=== PATIENT | female | born 1945 | race Caucasian/White ===

== ENCOUNTER → 2017-05-30 | Outpatient (CLI) | payer OTHER ==
[~2017-05-30] MED LIST: CMD5 PO; CZR25 PO; DICL1GEL12 TD; DICL50TA3 PO; FURO-85 PO; IPRASOL4 INH; LSN20 PO; METO1TAB31 PO; OXGN; POTA10TA PO; PRD10 PO; PRED10TA PO; PRED20TA PO; PRLSR20 PO; ROFL1TAB5 PO; SPRIN/30 INH; SYMIN160 INH; ULT50 PO; VLT50 PO; VNTHFA/IN INH
--- NOTE | 2017-05-30 16:52 | DIAGNOSTIC IMAGING REPORT ---
CHEST 2 VIEWS ROUTINE CLINICAL HISTORY: R06.02 Shortness of [id number] dyspnea COMPARISON STUDY: 02/03/2016 FINDINGS: Mild increase in cardiac size. Slight fullness pulmonary vasculature. Diaphragms smooth. No focal infiltrative process. IMPRESSION: Mild cardiomegaly. Developing pulmonary vascular congestion. The above report was generated using voice recognition software. It may contain grammatical, syntax or spelling errors. Electronically signed by: Byron Reyes M.D. 05/30/2017 4:51 PM Dictated Date/Time: 05/30/2017 4:50 PM
== END | disposition home or self-care (01) ==
LOC: C.RAD1850 16:37
PROVIDERS: ATTEND Physician Assistant
DX: R06.02 Shortness of breath (principal)

== ENCOUNTER 2017-06-07 00:16 | Inpatient (IN) | payer OTHER ==
[2017-06-07] VITALS (14 sets, daily range): BP systolic 119–149; BP diastolic 69–97; PULSE 100–128; TEMP 36.2–37; O2SAT 90–99; Ht 157.5 cm; Wt 78.5 kg
[~2017-06-07] VITALS: Ht 157.5 cm; Wt 78.5 kg
[~2017-06-07 00:16] MED LIST changes: -CMD5 PO; -CZR25 PO; -DICL1GEL12 TD; -DICL50TA3 PO; -FURO-85 PO; -METO1TAB31 PO; -OXGN; -POTA10TA PO; -PRD10 PO; -PRED10TA PO; -PRED20TA PO; -PRLSR20 PO; -ROFL1TAB5 PO
[2017-06-07] MEDS ORDERED: METOPROLOL TARTRATE 1 MG/ML VIAL IV STA (00:34)
[2017-06-07] MEDS ORDERED: METHYLPREDNISOLONE 125 MG VIAL IV STA (00:34)
--- NOTE | 2017-06-07 00:35 | EMERGENCY ROOM VISIT NOTE ---
History Report prepared by Aicha: Edith Gallegos Under the Supervision of: Dr. Nagi Quiñones M.D. First contact with patient: 00:29 Chief Complaint: SHORTNESS OF BREATH Stated Complaint: SHORT OF BREATH "CAN'T BREATHE",CAN'T WALK WELL History of Present Illness The patient is a 71 year old female who presents to the Emergency Room with complaints of constant shortness of breath. Patient notes chronic COPD as well as some CHF issues with increased swelling in legs recently. She was seen by PCP a few days ago and sent to see cards given her shortness of breath. Rapidly worsening SOB over last few hours. Unable to ambulate due to SOB and needed family to come get her to hospital. Difficulty speaking, unable to walk due to SHOB, and notes this is similar to previous COPD flares. Denies chest pain, syncope, palpitations, fevers, chills, vomiting, abdominal pain nor other symptoms. No medications prior to arrival. Exertion makes worse, rest better. Source of History: patient Timing: constant Modifying Factors (Worsening): other (talking) Review of Systems See HPI for pertinent positives & negatives. A total of 10 systems reviewed and were otherwise negative. Past Medical & Surgical Medical Problems: (1) BCC (basal cell carcinoma of skin) (2) COPD (chronic obstructive pulmonary disease) (3) Dyslipidemia (4) Fibromyalgia (5) GERD (gastroesophageal reflux disease) (6) Hypertension (7) Hypoxia (8) Osteoporosis (9) Respiratory failure, [id number] Surgical Problems: (1) History of cyst removal left breast (2) Hx of cataract surgery (3) S/P Mohs surgery for basal cell carcinoma (4) Status post appendectomy (5) Status post hysterectomy (6) Status post repair of ventral hernia Family History Cancer Social History Smoking Status: Former Smoker Alcohol Use: none Drug Use: none Housing Status: lives alone Occupation Status: employed Current/Historical Medications Scheduled Budesonide/Formoterol Fumarate (Symbicort 160/4.5 Inhaler), 2 PUFFS INH BID Diclofenac Sodium (Topical) (Voltaren 1% Top Gel), 1 APPLN TD BID Furosemide (Lasix), 20 MG PO DAILY Omeprazole (Prilosec), 20 MG PO QAM Potassium Chloride (K-Tabs), 10 MEQ PO DAILY Prednisone (Prednisone), 40 MG PO DAILY Roflumilast (Daliresp), 500 MG PO DAILY Tiotropium [place] (Spiriva Handihaler), 1 PUFF INH DAILY Warfarin Sod (Coumadin), 5 MG PO DAILY Scheduled PRN Albuterol Hfa (Ventolin Hfa), 2 PUFFS INH Q4H PRN for SOB/Wheezing Ipratropium-Albuterol (Duoneb), 1 TREATMENT INH Q4H PRN for SOB/Wheezing Tramadol HCl (Tramadol HCl), 50 MG PO TID PRN for Pain Allergies Coded Allergies: Duloxetine (Verified Allergy, Intermediate, RASH, 07/26/16) CI Pigment Blue 63 (Verified Allergy, Unknown, RASH, 07/26/16) Naproxen (Verified Adverse Reaction, Mild, GI SYMPTOMS, 07/26/16) Physical Exam Vital Signs Date Time Temp Pulse Resp B/P (MAP) Pulse Ox O2 Delivery O2 Flow Rate FiO2 06/07/17 02:06 112 22 129/86 92 Nasal Cannula 3.0 06/07/17 01:36 Nasal Cannula 2.0 06/07/17 01:23 111 22 122/99 98 Nebulizer 06/07/17 01:11 128 06/07/17 00:56 96 Nasal Cannula 3.0 06/07/17 00:55 136 150/128 06/07/17 00:46 128 20 99 Nasal Cannula 4.0 06/07/17 00:22 37.0 133 24 138/82 68 Room Air Physical Exam GENERAL: Patient is acutely ill appearing HEENT: No acute trauma, normocephalic atraumatic, mucous membranes moist, no nasal congestion, no scleral icterus. NECK: No stridor, no adenopathy, no meningismus, trachea is midline. LUNGS: Minimal air movement, tight wheezing at apex. HEART: Tachycardic. No murmurs, rubs, gallops appreciated. ABDOMEN: Soft, nontender, bowel sounds positive, no masses appreciated, no peritonitis. BACK: No midline tenderness, no CVA tenderness EXTREMITIES: Normal motion all extremities, no cyanosis, mild edema bilateral legs. NEUROLOGIC: Alert and oriented, no acute motor or sensory deficits, no focal weakness, cranial nerves grossly intact. SKIN: No rash, no jaundice, no diaphoresis. Medical Decision & Procedures ER Provider Diagnostic Interpretation: Radiology results and stated below per my review and radiologist interpretation: CHEST ONE VIEW X ray results are stated below per my interpretation: Chest: 1 view: No infiltrate, no effusion, normal cardiac border. Laboratory Results Test 06/07/17 00:40 06/07/17 00:47 RDW Standard Deviation 46.3 fL (36.4-46.3) RDW Coefficient of Variation 13.7 % (11.5-14.5) White Blood Count 10.61 K/uL (4.8-10.8) Red Blood Count 5.27 M/uL (4.2-5.4) Hemoglobin 14.6 g/dL (12.0-16.0) Hematocrit 48.9 % (37-47) Mean Corpuscular Volume 92.8 fL (80-100) Mean Corpuscular Hemoglobin 27.7 pg (25-34) Mean Corpuscular Hemoglobin Concent 29.9 g/dl (32-36) Platelet Count 246 K/uL (130-400) Mean Platelet Volume 11.2 fL (7.4-10.4) Neutrophils (%) (Auto) 76.2 % Lymphocytes (%) (Auto) 14.0 % Monocytes (%) (Auto) 8.3 % Eosinophils (%) (Auto) 1.1 % Basophils (%) (Auto) 0.2 % Neutrophils # (Auto) 8.08 K/uL (1.4-6.5) Lymphocytes # (Auto) 1.49 K/uL (1.2-3.4) Monocytes # (Auto) 0.88 K/uL (0.11-0.59) Eosinophils # (Auto) 0.12 K/uL (0-0.5) Basophils # (Auto) 0.02 K/uL (0-0.2) Immature Granulocyte % (Auto) 0.2 % Immature Granulocyte # (Auto) 0.02 K/uL (0.00-0.02) Prothrombin Time 18.9 SECONDS (9.0-12.0) Prothromb Time International Ratio 1.7 (0.9-1.1) Activated Partial Thromboplast Time 28.3 SECONDS (21.0-31.0) Partial Thromboplastin Ratio 1.1 Total Creatine Kinase 75 U/L (26-192) Creatine Kinase MB 2.5 ng/ml (0.5-3.6) Creatine Kinase MB Ratio 3.3 (0-3.0) Troponin I 0.032 ng/ml (0-0.045) Pro-B-Type Natriuretic Peptide 7658 pg/ml (0-900) Bedside Lactic Acid Venous 1.28 mmol/L (0.90-1.70) Laboratory results as reviewed by me. Medications Administered Medications (Trade) Dose Ordered Sig/Racheal Route Start Time Stop Time Status Last Admin Dose Admin Albuterol/ Ipratropium (Duoneb) 12 ml ONE ONCE INH 06/07/17 00:45 06/07/17 00:46 DC 06/07/17 00:44 12 ML Methylprednisolone Sodium Succinate (Solu-Medrol IV) 125 mg NOW STAT IV 06/07/17 00:34 06/07/17 00:36 DC 06/07/17 00:55 125 MG Metoprolol Tartrate (Lopressor Iv) 5 mg NOW STAT IV 06/07/17 00:34 06/07/17 00:36 DC 06/07/17 00:55 5 MG ED Course 0030: The patient was evaluated in room B10. A complete history and physical exam was performed. 0034: Lopressor Iv 5 mg IV, Solu-Medrol IV 125 mg IV. 0045: Duoneb 12 ml INH. 0058: The patient's breathing is much better, HR is 110. She notes she has recently had urinary burning. 0134: The patient's breathing has improved, she is still wheezing loudly. The patient is shaking too much and needs to stop the nebulizer. She agrees to be admitted 0211: Discussed the patient's case with Dr. Leavitt. The patient will be evaluated for further treatment and disposition. 0215: Upon reevaluation, the patient is resting. Discussed results and treatment plan with the patient. She verbalized understanding and agreement with the treatment plan. The patient will be evaluated for further management. Medical Decision Differential: Infectious, Reactive Airway Disease, Pneumonia, Pneumothorax, COPD , CHF, ACS, Pulmonary Embolism, MSK, GI, Dissection, amongst other etiologies entertained. 71 yr old female arrives with shortness of breath and is very hypoxic on arrival. I was at bedside on arrival to room given severity of her situation. Moving minimal air and is quite tight. Immediately started on hour long neb. With tachycardia given Lopressor. CXR without clear infiltrate and wbc OK without fever. Suspect this is primary COPD exacerbation. There may be underlying CHF but I do not feel that this is primary issue. After hour neb having improved breathing and oxygenation only requiring 3 L NC. Labs reveal mild acidosis with significant hypercapnia consistent with her exacerbation. Given her vast improvement after neb here I do not feel that she requires bipap at this time. She was given IV solu-medrol. I will defer abx decision to hospitalist, though I did obtain blood cultures, along with poc lactic acid ( which was OK). She was watched closely prior to transfer to floor. Medication Reconcilliation Current Medication List: was personally reviewed by me Blood Pressure Screening Patient's blood pressure: Normal blood pressure Consults Time Called: [phone] Consulting Physician: Dr. Leavitt Returned Call: [phone] Discussed the patient's case. The patient will be evaluated for further treatment and disposition. Impression Primary Impression: COPD with acute exacerbation Additional Impressions: Hypercapnic respiratory failure Hypoxia Critical Care I have personally spent greater than 35 minutes of critical care time in the direct management of this patient. This was a life/limb threatening event. This includes time spent evaluating patient, direct bedside care, chart review, placing orders, interpretation of diagnostic studies, discussion with consultants, patient, and family members, as well as other required patient management activities. This 35 minutes is in excess of all separately billable procedures. Scribe Attestation The scribe's documentation has been prepared under my direction and personally reviewed by me in its entirety. I confirm that the note above accurately reflects all work, treatment, procedures, and medical decision making performed by me. Departure Information Dispostion Being Evaluated By Hospitalist Referrals Russ Moon M.D. (PCP) Patient Instructions My [facility] Problem Qualifiers
[2017-06-07] MEDS ORDERED: ALBUT/IPRATROP 3MG/0.5MG NEB 3 ML VIAL INH ONE (00:45)
[2017-06-07 00:57] LABS: BASO % 0.2 %; BASO ABS # 0.02 K/uL (0-0.2); COMPLETE YES; EOS % 1.1 %; HEMATOCRIT 48.9 % (37-47); IG% 0.2 %; LYMPH ABS # 1.49 K/uL (1.2-3.4); MEAN CELL VOLUME 92.8 fL (80-100); MEAN CORPUSCULAR HEMOGLOBIN 27.7 pg (25-34); MEAN CORPUSCULAR HGB CONC 29.9 g/dl (32-36); MEAN PLATELET VOLUME 11.2 fL (7.4-10.4); MONO % 8.3 %; NEUT % 76.2 %; PLATELET COUNT 246 K/uL (130-400); RED BLOOD COUNT 5.27 M/uL (4.2-5.4); WHITE BLOOD COUNT 10.61 K/uL (4.8-10.8)
[2017-06-07 01:09] LABS: INR 1.7 (0.9-1.1); PARTIAL THROMBOPLASTIN RATIO 1.1; PROTHROMBIN TIME (PATIENT) 18.9 SECONDS (9.0-12.0)
[2017-06-07 01:24] LABS: BLOOD UREA NITROGEN 16 mg/dl (7-18); BUN/CREATININE RATIO 21.3 (10-20); CALCIUM 8.7 mg/dl (8.5-10.1); CARBON DIOXIDE 40 mmol/L (21-32); CHLORIDE 95 mmol/L (98-107); CKMB/CK RATIO 3.3 (0-3.0); CREATININE 0.75 mg/dl (0.60-1.20); GLUCOSE 164 mg/dl (70-99); MAGNESIUM 1.7 mg/dl (1.8-2.4); POTASSIUM 4.3 mmol/L (3.5-5.1); SODIUM 137 mmol/L (136-145)
[2017-06-07] MEDS ORDERED: FURO-85 PO (01:25)
[2017-06-07] MEDS ORDERED: POTA10TA PO (01:26)
[2017-06-07] MEDS ORDERED: CMD5 PO (01:27)
[2017-06-07] MEDS ORDERED: PRLSR20 PO (01:28)
[2017-06-07] MEDS ORDERED: PRED20TA PO (01:32)
[2017-06-07 01:34] LABS: ARTERIAL BLD GAS O2 SATURATION 99.5 % (90-95); ARTERIAL BLOOD GAS HCO3 38 mmol/L (19-24); ARTERIAL BLOOD GAS PO2 213 mm/Hg (80-95); ARTERIAL BLOOD GAS pH 7.31 (7.35-7.45)
[2017-06-07] MEDS ORDERED: DICL1GEL12 TD (01:34)
[2017-06-07] MEDS ORDERED: ROFL1TAB5 PO (01:38)
[2017-06-07 01:39] LABS: ALLEN TEST POS (POS); O2 ADMINISTRATION ROOM AIR
[2017-06-07] MEDS ORDERED: NITROGLYCERIN 0.4 MG SL PER TAB CHARGE SL PRN (02:15)
[2017-06-07] MEDS ORDERED: ACETAMINOPHEN 325 MG TAB PO PRN (02:15)
[2017-06-07] MEDS ORDERED: POLYETHYLENE (MIRALAX) 17 GM PACK PO PRN (02:15)
[2017-06-07] MEDS ORDERED: ALUMINUM/MAGNESIUM/SIMETH (MAALOX MAX) 30 ML UDC PO PRN (02:15)
[2017-06-07] MEDS ORDERED: MAGNESIUM HYDROXIDE SUSP 30 ML UDC PO PRN (02:15)
[2017-06-07] MEDS ORDERED: ONDANSETRON INJ 2 MG/ML 2 ML VIAL IV PRN (02:15)
--- NOTE | 2017-06-07 02:28 | History and Physical ---
History & Physical Date & Time of Service: Jun 07, 2017 at 02:28 Chief Complaint: Short Of Breath "Can't Breathe",Can't Walk Well Primary Care Physician: Russ Moon M.D. History of Present Illness Source: patient This is 71 yo F with hx of COPD ( moderate to severe ) ; Aflutter /fibromyalgia presented to ED with Hypoxia , found to be 86 % in room air , with poor air entry respiratory acidosis with low pH 7.3 given hour long neb tx , her respiratory status improved , spo02 92 % on 3 L 02 during my interview , pt was comfortable, not in any respiratory distress , speaking in sentences very poor Historian , baseline confusion ( dementia ? ) needed a lot of redirection to obtain information mentions that she got home 02 delivered day before yesterday -but did not think it was working ( as she could not " taste " it ) got confused today , could take breath , could not walk or talk , called her grand son to come over and get her to ER can not tell be for sure if she had any fever /chills , mention that she had cough ( but " always " had it ) say pulmonary Domenica Black 2 days back , everything was fine then Past Medical/Surgical History Medical Problems: (1) BCC (basal cell carcinoma of skin) Permanent Comment: s/p MOHS surgery Status: Chronic (2) COPD (chronic obstructive pulmonary disease) Permanent Comment: severity to be determined Status: Chronic (3) Dyslipidemia Status: Chronic (4) Fibromyalgia Status: Chronic (5) GERD (gastroesophageal reflux disease) Status: Chronic (6) Hypertension Status: Chronic (7) Osteoporosis Status: Chronic Surgical Problems: (1) History of cyst removal left breast Status: Chronic (2) Hx of cataract surgery Status: Chronic (3) S/P Mohs surgery for basal cell carcinoma Status: Chronic (4) Status post appendectomy Status: Chronic (5) Status post hysterectomy Status: Chronic (6) Status post repair of ventral hernia Status: Chronic Family History Cancer Social History Smoking Status: Former Smoker Drug Use: none Housing status: lives with family Occupational Status: employed Immunizations History of Influenza Vaccine: Yes Influenza Vaccine Date: Aug 24, 2015 History of Tetanus Vaccine?: Yes Tetanus Immunization Date: Jan 20, 2014 History of Pneumococcal: Yes Pneumococcal Date: Dec 13, 2014 Multi-Drug Resistant Organisms History of MDRO: Yes Type of MDRO: MRSA Allergies Coded Allergies: Duloxetine (Verified Allergy, Intermediate, RASH, 07/26/16) CI Pigment Blue 63 (Verified Allergy, Unknown, RASH, 07/26/16) Naproxen (Verified Adverse Reaction, Mild, GI SYMPTOMS, 07/26/16) Home Medications Scheduled Budesonide/Formoterol Fumarate (Symbicort 160/4.5 Inhaler), 2 PUFFS INH BID Diclofenac Sodium (Topical) (Voltaren 1% Top Gel), 1 APPLN TD BID Furosemide (Lasix), 20 MG PO DAILY Omeprazole (Prilosec), 20 MG PO QAM Potassium Chloride (K-Tabs), 10 MEQ PO DAILY Prednisone (Prednisone), 40 MG PO DAILY Roflumilast (Daliresp), 500 MG PO DAILY Tiotropium [place] (Spiriva Handihaler), 1 PUFF INH DAILY Warfarin Sod (Coumadin), 5 MG PO DAILY Scheduled PRN Albuterol Hfa (Ventolin Hfa), 2 PUFFS INH Q4H PRN for SOB/Wheezing Ipratropium-Albuterol (Duoneb), 1 TREATMENT INH Q4H PRN for SOB/Wheezing Tramadol HCl (Tramadol HCl), 50 MG PO TID PRN for Pain Review of Systems limited due to poor history /confusion Respiratory: + cough, + wheezing, + shortness of breath, + dyspnea on exertion Neurologic: + weakness, + numbness/tingling Physical Exam Vital Signs Date Time Temp Pulse Resp B/P (MAP) Pulse Ox O2 Delivery O2 Flow Rate FiO2 06/07/17 02:06 112 22 129/86 92 Nasal Cannula 3.0 06/07/17 01:36 Nasal Cannula 2.0 06/07/17 01:23 111 22 122/99 98 Nebulizer 06/07/17 01:11 128 06/07/17 00:56 96 Nasal Cannula 3.0 06/07/17 00:55 136 150/128 06/07/17 00:46 128 20 99 Nasal Cannula 4.0 06/07/17 00:22 37.0 133 24 138/82 68 Room Air General Appearance: no apparent distress Head: normocephalic, atraumatic Eyes: normal inspection Neck: no JVD Respiratory/Chest: chest non-tender, + pertinent finding (diminished breath sound , no audible wheeze ( pt got breathing treament prior ) ) Cardiovascular: + tachycardia Abdomen/GI: non tender, soft Extremities/Musculoskelatal: no calf tenderness, normal capillary refill, no pedal edema Neurologic/Psych: no motor/sensory deficits, alert, + pertinent finding ( confusion , oriented to place and person ) Diagnostics Laboratory Results Results Past 24 Hours Test 06/07/17 00:40 06/07/17 00:47 06/07/17 01:22 Range/Units White Blood Count 10.61 4.8-10.8 K/uL Red Blood Count 5.27 4.2-5.4 M/uL Hemoglobin 14.6 12.0-16.0 g/dL Hematocrit 48.9 37-47 % Mean Corpuscular Volume 92.8 80-100 fL Mean Corpuscular Hemoglobin 27.7 25-34 pg Mean Corpuscular Hemoglobin Concent 29.9 32-36 g/dl Platelet Count 246 130-400 K/uL Mean Platelet Volume 11.2 7.4-10.4 fL Neutrophils (%) (Auto) 76.2 % Lymphocytes (%) (Auto) 14.0 % Monocytes (%) (Auto) 8.3 % Eosinophils (%) (Auto) 1.1 % Basophils (%) (Auto) 0.2 % Neutrophils # (Auto) 8.08 1.4-6.5 K/uL Lymphocytes # (Auto) 1.49 1.2-3.4 K/uL Monocytes # (Auto) 0.88 0.11-0.59 K/uL Eosinophils # (Auto) 0.12 0-0.5 K/uL Basophils # (Auto) 0.02 0-0.2 K/uL RDW Standard Deviation 46.3 36.4-46.3 fL RDW Coefficient of Variation 13.7 11.5-14.5 % Immature Granulocyte % (Auto) 0.2 % Immature Granulocyte # (Auto) 0.02 0.00-0.02 K/uL Prothrombin Time 18.9 9.0-12.0 SECONDS Prothromb Time International Ratio 1.7 0.9-1.1 Activated Partial Thromboplast Time 28.3 21.0-31.0 SECONDS Partial Thromboplastin Ratio 1.1 Sodium Level 137 136-145 mmol/L Potassium Level 4.3 3.5-5.1 mmol/L Chloride Level 95 98-107 mmol/L Carbon Dioxide Level 40 21-32 mmol/L Anion Gap 2.0 3-11 mmol/L Blood Urea Nitrogen 16 7-18 mg/dl Creatinine 0.75 0.60-1.20 mg/dl Estimated GFR () 91.7 Estimated GFR (Non- 79.1 BUN/Creatinine Ratio 21.3 10-20 Random Glucose 164 70-99 mg/dl Calcium Level 8.7 8.5-10.1 mg/dl Magnesium Level 1.7 1.8-2.4 mg/dl Total Creatine Kinase 75 26-192 U/L Creatine Kinase MB 2.5 0.5-3.6 ng/ml Creatine Kinase MB Ratio 3.3 0-3.0 Troponin I 0.032 0-0.045 ng/ml Pro-B-Type Natriuretic Peptide 7658 0-900 pg/ml Bedside Lactic Acid Venous 1.28 0.90-1.70 mmol/L Arterial Blood pH 7.31 7.35-7.45 Arterial Blood Partial Pressure CO2 79 35-46 mmHg Arterial Blood Partial Pressure O2 213 80-95 mm/Hg Arterial Blood HCO3 38 19-24 mmol/L Arterial Blood Oxygen Saturation 99.5 90-95 % Arterial Blood Base Excess 9.0 -9-1.8 mEq/L Arterial Blood Gas Delivery ROOM AIR Clarence Test POS POS Microbiology Results 06/07/17 Blood Culture, Received Pending 06/07/17 Blood Culture, Received Pending No Infiltrate, No Atelectasis EKG sinus tachycardia @ 130 bpm Impression Assessment and Plan SOB /HYPOXIA /COPD EXACERBATION : ACUTE ON CHRONIC RESPIRATORY FAILURE : presented with marked hypoxia ; poor air entry , wheeze symptom improved with hour long neb tx ABG shows pulmonary acidosis -lab obtained prior to neb tx will repeat lab in Am as pt's respiratory status improved to approx baseline cont iV Solu Medrol , Neb tx with Xoponex ( due to tachycardia ) scheduled and PRN q 2hrs pt is continued with Symbicort /Daliresp ( roflumilast ) no infiltrate noted in CXray empiric Abx with Doxycycline ( blood cultures obtained in ED ) Abx can be de escalated after culture results obtained pulmonology consult requested -pt is known to [facility] pulmonology CONFUSION /ENCEPHALOPATHY not sure of her baseline possible worsening of confusion due to hypoxia /metabolic encephalopathy cont supportive care for COPD exacerbation cont to monitor lives alone , PT/OT eval social service consulted for discharge planning for safe discharge HX OF AFLUTTER ON COUMADIN : follows with Dr Castro EKG shows sinus tach tele monitoring cont on Coumadin ; INR 1.7 monitor daily PT/INR -no indication for bridge therapy FIBROMYALGIA : cont tramadol -her home meds CHRONIC LOWER EXT SWELLING : On Lasix /K supplement no lower ext edema noted LOW MG : Replaced follow labs FULL CODE DVT PROPHYLAXIS ON COUMADIN DISPOSITION : expected to be discharged home when medically stable Pt/OT eval prior to discharge home Medicine follow up with Dr Russ Felipe Level of Care Telemetry Resuscitation Status FULL RESUSCITATION VTE Prophylaxis VTE Risk Assessment Done? Y/N: Yes Risk Level: Moderate Given or contraindicated: Unfractionated heparin SQ Additional Copies To Russ Moon M.D.
[2017-06-07] MEDS ORDERED: ALBUTEROL HFA 8 GM INHALER INH PRN (02:30)
[2017-06-07] MEDS ORDERED: IPRATROPIUM BROMIDE NEB SOLN 0.02% 2.5 ML VIAL INH PRN (02:45)
[2017-06-07] MEDS ORDERED: LEVALBUTEROL 1.25MG/0.5ML NEB INH PRN (02:45)
[2017-06-07] MEDS ORDERED: MAGNESIUM SULFATE 1GM / D5W 1 GM in PREMIXED IN D5W 100 ML IV STA (02:53)
[2017-06-07] MEDS ORDERED: LEVALBUTEROL/IPRATROPIUM NEB INH SCH (03:00)
[2017-06-07] MEDS: LEVALBUTEROL 1.25MG/0.5ML NEB INH SCH ×4 (03:13→19:19)
[2017-06-07] MEDS: IPRATROPIUM BROMIDE NEB SOLN 0.02% 2.5 ML VIAL INH SCH ×4 (03:13→19:19)
[2017-06-07] MEDS ORDERED: PATIENT'S HEIGHT AND/OR WEIGHT NEEDED SCH (04:30)
[2017-06-07 05:54] LABS: HEMATOCRIT 48.7 % (37-47); MEAN CELL VOLUME 92.2 fL (80-100); MEAN CORPUSCULAR HEMOGLOBIN 27.3 pg (25-34); MEAN CORPUSCULAR HGB CONC 29.6 g/dl (32-36); MEAN PLATELET VOLUME 11.7 fL (7.4-10.4); PLATELET COUNT 210 K/uL (130-400); RED BLOOD COUNT 5.28 M/uL (4.2-5.4); WHITE BLOOD COUNT 9.32 K/uL (4.8-10.8)
[2017-06-07 05:55] LABS: ARTERIAL BLD GAS O2 SATURATION 95.8 % (90-95); ARTERIAL BLOOD GAS BASE EXCESS 9.2 mEq/L (-9-1.8); ARTERIAL BLOOD GAS HCO3 40 mmol/L (19-24); ARTERIAL BLOOD GAS PO2 90 mm/Hg (80-95); ARTERIAL BLOOD GAS pH 7.28 (7.35-7.45); O2 ADMINISTRATION 4 LITERS
[2017-06-07 05:56] LABS: ALLEN TEST POS (POS)
[2017-06-07] MEDS ORDERED: HEPARIN SOD 5000 UNIT/0.5 ML CARP SQ SCH (06:00)
[2017-06-07 06:09] LABS: URINE APPEARANCE CLOUDY (CLEAR); URINE BILIRUBIN NEG (NEG); URINE COLOR YELLOW; URINE EPITHELIAL CELL AUTO >30 /lpf (0-5); URINE NITRITE NEG (NEG); URINE PH 6.5 (4.5-7.5); URINE SPECIFIC GRAVITY 1.022 (1.000-1.030); UROBILINOGEN NEG (NEG); ZZUR CULT IF INDIC CLEAN CATCH NO
--- NOTE | 2017-06-07 06:10 | Progress Note ---
Progress Note Date of Service Jun 07, 2017. Progress Note AM BLOOD GAS REVIEWED : pH 7.28 /pCo2 86 /pO2 90 /Hco3 40 respiratory acidosis due to COPD /hypercarbia -possible causing ongoing confusion ordered for BiPAP repeat ABG at noon while on Bipap Pulmonology consulted for further management
[2017-06-07 06:14] LABS: MANUAL MICROSCOPIC REQUIRED? NO; REVIEW REQ? NO
--- NOTE | 2017-06-07 06:45 | DIAGNOSTIC IMAGING REPORT ---
CHEST ONE VIEW PORTABLE HISTORY: 71 years-old Female acute shortness of breath. COMPARISON: Chest radiograph 05/30/2017. TECHNIQUE: Portable upright AP view of the chest FINDINGS: Cardiac silhouette is again moderately enlarged. Pulmonary vascular congestion is noted without overt pulmonary edema. Mild background interstitial coarsening is again seen bilaterally. There is atherosclerosis of the aorta. No pneumothorax or large pleural effusion. Bones are grossly intact with degenerative changes of the shoulders and spine. IMPRESSION: Cardiomegaly with unchanged pulmonary vascular congestion and mild background interstitial coarsening which may reflect mild pulmonary edema or background chronic interstitial changes. The above report was generated using voice recognition software. It may contain grammatical, syntax or spelling errors. Electronically signed by: Capo Perez M.D. 06/07/2017 6:43 AM Dictated Date/Time: 06/07/2017 6:42 AM
[2017-06-07 06:52] LABS: BUN/CREATININE RATIO 20.9 (10-20); CALCIUM 8.6 mg/dl (8.5-10.1); CREATININE 0.72 mg/dl (0.60-1.20); MAGNESIUM 2.3 mg/dl (1.8-2.4); POTASSIUM 4.2 mmol/L (3.5-5.1)
[2017-06-07] MEDS: METHYLPREDNISOLONE IV 60 MG in SYRINGE 0 ML IV SCH ×2 (08:34→16:08)
[2017-06-07] MEDS: ROFLUMILAST 500 MCG TAB PO SCH (08:35)
[2017-06-07] MEDS: PANTOprazole SOD 40 MG TAB PO SCH (08:35)
[2017-06-07] MEDS: POTASSIUM CHLORIDE 10 MEQ TABCR PO SCH (08:35)
[2017-06-07] MEDS: DICLOFENAC SOD 1% GEL 100 GM TUBE EXT SCH ×2 (08:35→19:04)
[2017-06-07] MEDS: FUROSEMIDE 20 MG TAB PO SCH (08:35)
[2017-06-07] MEDS: TIOTROPIUM BROMIDE 5 PUFF/90 MCG INH INH SCH (08:36)
[2017-06-07] MEDS: BUDESONIDE/FORMOTEROL FUMARATE 160/4.5 60 PUFFS/INHALER INH SCH ×2 (08:37→20:32)
[2017-06-07] MEDS ORDERED: DOXYCYCLINE HYCLATE 100 MG CAP PO SCH (09:00)
[2017-06-07 12:18] LABS: ARTERIAL BLD GAS O2 SATURATION 94.1 % (90-95); ARTERIAL BLOOD GAS BASE EXCESS 9.7 mEq/L (-9-1.8); ARTERIAL BLOOD GAS HCO3 39 mmol/L (19-24); ARTERIAL BLOOD GAS PO2 75 mm/Hg (80-95); ARTERIAL BLOOD GAS pH 7.34 (7.35-7.45); O2 ADMINISTRATION 2 LITERS
[2017-06-07 12:19] LABS: ALLEN TEST POS (POS)
[2017-06-07] MEDS: WARFARIN SOD 5 MG TAB PO SCH (16:08)
[2017-06-07] MEDS: TRAMADOL HCL 50 MG TAB PO PRN (16:09)
--- NOTE | 2017-06-07 16:53 | Pulmonary Consultation ---
History General Date of Service: Jun 07, 2017. Stated Complaint: Copd, Hypoxia HPI The patient is a 71 year old female who presents to [facility] with complaints of Copd, Hypoxia. The patient's primary care provider is Russ Moon M.D.. 71-year-old female admitted for acute on chronic respiratory insufficiency. Patient has a past medical history significant for severe emphysema, GERD, fibromyalgia, irritable bowel syndrome and MRSA of the nares. She is a former 50 -pack-year history of smoking and quit 2003. She is a previous patient of Dr. Valdovinos and then transferred to Dr. Powell in recently to the newly created [facility] where division. She is prescribed 2 L of oxygen chronically but has not been using that over the last 2 months. During that time she noted progressive dyspnea on exertion with bilateral lower extremity swelling she also notes overall poor compliance with her medical care. Prior to the admission sheet been experiencing this progressive dyspnea over the last 6-8 weeks and had noted increasing difficulty with clearing her mucous secretions. During the interview she denied: Fever, chills, productive cough, pleurisy or classic cardiac chest pain. Current Workup and treatment: EKG: Sinus tachycardia rate 130, possible atrial enlargement seen in lead V1 left axis deviation EKG: Sinus tachycardia weight 110, left axis deviation with signs of left atrial enlargement CXR: Cardiomegaly, pulmonary vascular congestion WBC: 11K---9K Platelet: [id number] INR: 1.7-----why she subtherapeutic in should with for pulmonary embolism AA gradient not elevated 5.7 PT: 18.9 aPTT: 28.3 CO2: 41 BUN: 15 Cr: 0.72 BNP: 7658 ABG: (06/07/17--01:22) 7.31/79/213/38 RA Aa Gradient: -166 (06/07/1705:46) 7.28/86/90/40 4Lnc Aa Gradient: 32.1 (06/07/1712:08) 7.34/74/75/39 2Lnc Aa Gradient: 5.7 Medications: 1. Coumadin 5 milligrams 2. Symbicort 2 puffs b.i.d. 3. Daliresp 500 micrograms daily 5. Spiriva 1 puff daily 6. Protonix 40 milligrams daily 7. Doxycycline 100 milligrams b.i.d. 8. Methylprednisolone 60 milligrams q.8 hours 9. Xopenex/Atrovent nebulizer q.6 hours Previous workup Pulmonary function studies 02/03/2016 Spirometry: Severe obstructive ventilatory disease with an FEV1 of 38% Lung volumes: Signs of hyperinflation with an RV of 136% Diffusion: Severely reduced at 30% Interpretation: Consistent with severe emphysema 6 minute walk test performed 05/30/2017 Baseline VS and Bernabe scale: HR: 114,~O2 sat: 98% QydzyPzqgiui54Ywb DtgliQxzcfvg26Pmphj AjtbeZcqwgbc68Rqf JybyaPyhzneg56Hsioi SnqxrOsnyjsa71Wax YlitaUfhbrdz95Ebhon QtmkaDvocrnw03Pcd LkzhbDizjoni68Fjqpt OwbmoZzuvsuq89Lab JgwptKxiemib75Ssmss GnacbKijprzr31Gxt SkdqaQhrkbjo07Calar JlmhpZvsyclq89Lul FjwasYktmoty71Gdkbo 1 min VS and Bernabe Scale: HR: 120,~O2 sat: 97% CgnoxHiyjcfc14Ugp XotciRorkqsq98Fimtk 2 min VS and Bernabe Scale: HR: 123,~O2 sat: 95% UdodtMpbvkab13Rak UdaazAfwhetc00Legfg 3 min VS and Bernabe Scale: HR: 125,~O2 sat: 92% ZbvrfUjmblbc00Eqm FwzsiUpubydi26Jicqw 4 min VS and Bernabe Scale: HR: 124,~O2 sat: 93% HdrxuHfbixfy66Pnr LqdruLskgtcb51Hfzoh 5 min VS and Bernabe Scale: HR: 131,~O2 sat: 93% BiedxInwdxqa95Lgj UgkdoRjwxrkp11Rnaeh 6 min VS and Bernabe Scale: HR: 131,~O2 sat: 91% IghbnDtnafan48Sas QjpnpZymamab55Kncuu Pre-Intervention: the patient walked a total of 506 ft feet. IonbeMgatrfa76Svs KkppiZhookpd13Ewiva Interventions: PT was wearing 2 LPM supplemental 02 during 6 minute walk and she did not desaturate Cardiac Echo (01/13/16) LV: EF=60-65% RV: TAPSE>1.5cm LA: Mildly dilated Grade 1 diastolic dysfunction Microbiology Expectorated sputum 02/16/2015: Haemophilus influenza Barium Swallow (+) mild to moderate esophageal dysmotility, possible stricture s/p EGD 01/14/16: (+) Guerita Esophagitis, Gastritis. ff up biopsies no strictures rukajGavsfTfbxarq56Qyr BnfvxCqrjqde72Skdph DlphlYpwrclm20Qzw GhmjwTlaxtmj27Yctkb IhqmnYxkifwh71Gxs CihsiMmihzgh58Fzcez DyyruMxwbnnv53Eov NnjezHuitlne57Iwaoc VjvnqTnpvpkd14Iyg ZqtokVkwdahl58Qxhqz Historian: patient, EMS Review of Systems Constitutional: reports: weakness Eyes: reports: no symptoms ENT: reports: no symptoms Cardiovascular: reports: as stated in HPI Respiratory: reports: as stated in HPI Gastrointestinal: reports: no symptoms Genitourinary - Female: reports: no symptoms Musculoskeletal: reports: no symptoms Integumentary: reports: no symptoms Neurologic: reports: no symptoms Psychiatric: reports: no symptoms Endocrine: no symptoms Hematologic / Lymphatic: no symptoms Allergic / Immunologic: no symptoms Past Medical History Past Medical History: 1. Chronic obstructive pulmonary disease (severe with an FEV1 of 38%) 2. Dyslipidemia 3. Fibromyalgia 4. GERD without esophagitis 5. Hypertension 6. Atrial flutter 7. Intermittent dysphagia to solid foods 8. Esophageal candidiasis 9. MRSA of the naris Past Surgical History: 1. Appendectomy 2. Inguinal Hernia Repair 3. Hysterectomy 4. Ventral Hernia Repair 5. EGD with biopsies and balloon dilation 6. Left breast cyst excision 7. Carpal tunnel release 8. Cataract repair 9. Mohs Family History Cancer Parent: Cancer, COPD Social History [place] home by herself Former smoker: 50+ pack year history quit 2006 Hx Tobacco Use In Past Year?: No Smoking Status: Former Smoker Alcohol: no current use Housing status: lives with family Occupational Status: employed Immunizations History of Influenza Vaccine: Yes Influenza Vaccine Date: Aug 24, 2015 History of Tetanus Vaccine?: Yes Tetanus Immunization Date: Jan 20, 2014 History of Pneumococcal: Yes Pneumococcal Date: Dec 13, 2014 History of MDRO History of MDRO: Yes Type of MDRO: MRSA Allergies Coded Allergies: Duloxetine (Verified Allergy, Intermediate, RASH, 07/26/16) CI Pigment Blue 63 (Verified Allergy, Unknown, RASH, 07/26/16) Naproxen (Verified Adverse Reaction, Mild, GI SYMPTOMS, 07/26/16) Current Medications Reported Home Medications Medications Dose Route/Sig Max Daily Dose Days Date Category Daliresp (Roflumilast) 500 Mcg Tab 500 Mg PO DAILY 06/07/17 Reported Voltaren 1% Top Gel (Diclofenac Sodium (Topical)) 1 % Gel 1 Appln TD BID 06/07/17 Reported Prednisone 20 Mg Tab 40 Mg PO DAILY 06/07/17 Reported Prilosec (Omeprazole) 20 Mg Capcr 20 Mg PO QAM 06/07/17 Reported Coumadin (Warfarin Sod) 5 Mg Tab 5 Mg PO DAILY 06/07/17 Reported K-Tabs (Potassium Chloride) 10 Meq Tab 10 Meq PO DAILY 06/07/17 Reported Lasix (Furosemide) 20 Mg Tab 20 Mg PO DAILY 06/07/17 Reported Symbicort 160/4.5 Inhaler (Budesonide/Formoterol Fumarate) 120 Puffs/ Aero 2 Puffs INH BID 10/05/16 Reported Ventolin Hfa (Albuterol) 200 Puffs/72792 Mcg Aers 2 Puffs INH Q4H PRN 10/05/16 Reported Spiriva Handihaler (Tiotropium [place]) 30 Puff/540 Mcg Aerp 1 Puff INH DAILY 10/05/16 Reported Tramadol HCl 50 Mg Tab 50 Mg PO TID PRN 10/05/16 Reported Duoneb (Ipratropium-Albuterol) 3 Ml Nebu 1 Treatment INH Q4H PRN 01/09/16 Reported Physical Physical Exam Vital Signs: Date Time Temp Pulse Resp B/P (MAP) Pulse Ox O2 Delivery O2 Flow Rate FiO2 06/07/17 15:31 36.9 117 18 138/69 (92) 93 Nasal Cannula 2.0 06/07/17 14:20 112 20 95 Nasal Cannula 06/07/17 12:00 Nasal Cannula 3.0 06/07/17 11:52 37.0 111 20 119/97 (104) 93 Nasal Cannula 2.0 06/07/17 08:00 Nasal Cannula 4.0 06/07/17 07:36 100 22 90 BiPAP/CPAP 06/07/17 07:28 36.2 107 20 149/84 (105) 91 Nasal Cannula 5.0 06/07/17 06:39 104 22 94 BiPAP 30 06/07/17 06:30 100 94 30 06/07/17 04:00 Nasal Cannula 3.0 06/07/17 03:15 36.9 112 24 142/91 95 Nasal Cannula 3.0 06/07/17 03:14 103 20 95 Nasal Cannula 3.0 06/07/17 02:06 112 22 129/86 92 Nasal Cannula 3.0 06/07/17 01:36 Nasal Cannula 2.0 06/07/17 01:23 111 22 122/99 98 Nebulizer 06/07/17 01:11 128 06/07/17 00:56 96 Nasal Cannula 3.0 06/07/17 00:55 136 150/128 06/07/17 00:46 128 20 99 Nasal Cannula 4.0 06/07/17 00:22 37.0 133 24 138/82 68 Room Air General Appearance: mild distress Head: NORMOCEPHALIC, ATRAUMATIC Eyes: PERRLA, NO DISCHARGE, EOMI, SCLERAE NORMAL ENT: NORMAL EAR EXAM, NORMAL NASAL EXAM, NORMAL MOUTH EXAM, NORMAL THROAT EXAM Neck: NORMAL RANGE OF MOTION, NO TENDERNESS, TRACHEA MIDLINE Respiratory: other (expiratory wheezing appreciated and mildly decreased breath sounds bilaterally) Cardiovasular: REGULAR RATE/RHYTHM, NORMAL S1S2 Abdomen: NON TENDER, NORMAL BOWEL SOUNDS, NO REBOUND, NO MASSES Genitourinary - Female: EXTERNAL GENITALIA NORMAL Back: NORMAL INSPECTION, NO MIDLINE TENDERNESS, NO CVA TENDERNESS Upper Extremities: NO EDEMA, NO DEFORMITY, NORMAL ROM Lower Extremities: edema Edema: Bilateral LE (2+) Pulses: carotid (R) (2+), carotid (L) (2+), posterior tibial (R), posterior tibial (L) (2+) Neuro: ALERT, ORIENTED x 3, NORMAL MOTOR EXAM Reflexes: biceps (R) (2+), bicpes (L) (2+), achilles (R) (2+), achilles (L) (2+ ) Babinski Testing: right (downgoing), left (downgoing) Psychiatric: NORMAL AFFECT, NO SUICIDAL IDEATION Diagnostics Labs Results Past 24 Hours Test 06/07/17 00:40 06/07/17 00:47 06/07/17 01:22 06/07/17 05:00 Range/Units White Blood Count 10.61 4.8-10.8 K/uL Red Blood Count 5.27 4.2-5.4 M/uL Hemoglobin 14.6 12.0-16.0 g/dL Hematocrit 48.9 37-47 % Mean Corpuscular Volume 92.8 80-100 fL Mean Corpuscular Hemoglobin 27.7 25-34 pg Mean Corpuscular Hemoglobin Concent 29.9 32-36 g/dl Platelet Count 246 130-400 K/uL Mean Platelet Volume 11.2 7.4-10.4 fL Neutrophils (%) (Auto) 76.2 % Lymphocytes (%) (Auto) 14.0 % Monocytes (%) (Auto) 8.3 % Eosinophils (%) (Auto) 1.1 % Basophils (%) (Auto) 0.2 % Neutrophils # (Auto) 8.08 1.4-6.5 K/uL Lymphocytes # (Auto) 1.49 1.2-3.4 K/uL Monocytes # (Auto) 0.88 0.11-0.59 K/uL Eosinophils # (Auto) 0.12 0-0.5 K/uL Basophils # (Auto) 0.02 0-0.2 K/uL RDW Standard Deviation 46.3 36.4-46.3 fL RDW Coefficient of Variation 13.7 11.5-14.5 % Immature Granulocyte % (Auto) 0.2 % Immature Granulocyte # (Auto) 0.02 0.00-0.02 K/uL Prothrombin Time 18.9 9.0-12.0 SECONDS Prothromb Time International Ratio 1.7 0.9-1.1 Activated Partial Thromboplast Time 28.3 21.0-31.0 SECONDS Partial Thromboplastin Ratio 1.1 Sodium Level 137 136-145 mmol/L Potassium Level 4.3 3.5-5.1 mmol/L Chloride Level 95 98-107 mmol/L Carbon Dioxide Level 40 21-32 mmol/L Anion Gap 2.0 3-11 mmol/L Blood Urea Nitrogen 16 7-18 mg/dl Creatinine 0.75 0.60-1.20 mg/dl Estimated GFR () 91.7 Estimated GFR (Non- 79.1 BUN/Creatinine Ratio 21.3 10-20 Random Glucose 164 70-99 mg/dl Calcium Level 8.7 8.5-10.1 mg/dl Magnesium Level 1.7 1.8-2.4 mg/dl Total Creatine Kinase 75 26-192 U/L Creatine Kinase MB 2.5 0.5-3.6 ng/ml Creatine Kinase MB Ratio 3.3 0-3.0 Troponin I 0.032 0-0.045 ng/ml Pro-B-Type Natriuretic Peptide 7658 0-900 pg/ml Bedside Lactic Acid Venous 1.28 0.90-1.70 mmol/L Arterial Blood pH 7.31 7.35-7.45 Arterial Blood Partial Pressure CO2 79 35-46 mmHg Arterial Blood Partial Pressure O2 213 80-95 mm/Hg Arterial Blood HCO3 38 19-24 mmol/L Arterial Blood Oxygen Saturation 99.5 90-95 % Arterial Blood Base Excess 9.0 -9-1.8 mEq/L Arterial Blood Gas Delivery ROOM AIR Clarence Test POS POS Urine Color YELLOW Urine Appearance CLOUDY CLEAR Urine pH 6.5 4.5-7.5 Urine Specific [place] 1.022 1.000-1.030 Urine Protein 2+ NEG Urine Glucose (UA) NEG NEG Urine Ketones NEG NEG Urine Occult Blood NEG NEG Urine Nitrite NEG NEG Urine Bilirubin NEG NEG Urine Urobilinogen NEG NEG Urine Leukocyte Esterase NEG NEG Urine WBC (Auto) 1-5 0-5 /hpf Urine RBC (Auto) 0-4 0-4 /hpf Urine Hyaline Casts (Auto) 1-5 0-5 /lpf Urine Epithelial Cells (Auto) >30 0-5 /lpf Urine Bacteria (Auto) NEG NEG Test 06/07/17 05:46 06/07/17 12:08 Range/Units White Blood Count 9.32 4.8-10.8 K/uL Red Blood Count 5.28 4.2-5.4 M/uL Hemoglobin 14.4 12.0-16.0 g/dL Hematocrit 48.7 37-47 % Mean Corpuscular Volume 92.2 80-100 fL Mean Corpuscular Hemoglobin 27.3 25-34 pg Mean Corpuscular Hemoglobin Concent 29.6 32-36 g/dl RDW Standard Deviation 45.8 36.4-46.3 fL RDW Coefficient of Variation 13.5 11.5-14.5 % Platelet Count 210 130-400 K/uL Mean Platelet Volume 11.7 7.4-10.4 fL Arterial Blood pH 7.28 7.34 7.35-7.45 Arterial Blood Partial Pressure CO2 86 74 35-46 mmHg Arterial Blood Partial Pressure O2 90 75 80-95 mm/Hg Arterial Blood HCO3 40 39 19-24 mmol/L Arterial Blood Oxygen Saturation 95.8 94.1 90-95 % Arterial Blood Base Excess 9.2 9.7 -9-1.8 mEq/L Arterial Blood Gas Delivery 4 LITERS 2 LITERS Clarence Test POS POS POS Sodium Level 138 136-145 mmol/L Potassium Level 4.2 3.5-5.1 mmol/L Chloride Level 96 98-107 mmol/L Carbon Dioxide Level 41 21-32 mmol/L Anion Gap 1.0 3-11 mmol/L Blood Urea Nitrogen 15 7-18 mg/dl Creatinine 0.72 0.60-1.20 mg/dl Est Creatinine Clear Calc Drug Dose 68.4 ml/min Estimated GFR () 96.3 Estimated GFR (Non- 83.1 BUN/Creatinine Ratio 20.9 10-20 Random Glucose 166 70-99 mg/dl Calcium Level 8.6 8.5-10.1 mg/dl Magnesium Level 2.3 1.8-2.4 mg/dl Microbiology Results 06/07/17 Blood Culture, Received Pending 06/07/17 Blood Culture, Received Pending Diagnostic Radiology CXR: Cardiomegaly, pulmonary vascular congestion EKG EKG: Sinus tachycardia rate 130, possible atrial enlargement seen in lead V1 left axis deviation EKG: Sinus tachycardia weight 110, left axis deviation with signs of left atrial enlargement Impression Assessment and Plan 71-year-old female with acute on chronic respiratory insufficiency: #1 Respiratory Insufficiency: The patient's acute on chronic respiratory insufficiency is most likely secondary to poor medical compliance. The patient has severe emphysema and is oxygen dependent but returned her oxygen 2 months prior since that time is had increasing lower extremity edema and current evaluation with elevated BNP and chest x-ray as well as physical exam no suggest COPD flare but also diastolic dysfunctioning. At this time I suggest we continue on her Daliresp, Symbicort, Spiriva and current methyl prednisolone dosing. She also should continue on her current oxygen support titrating her EDMOND twos between 88 and 92%. The patient is notably severe COPD and has had an acute admission continuing antibiotics is appropriate. We'll switch her to levofloxacin 750 mg for 5 day window. #2 COPD: The stated above will continue current medical regimen will also perform overnight oximetry study for further evaluation of possible BiPAP for COPD control. #3 Pneumonia: This patient is a COPD patient admitted with possible acute on chronic respiratory insufficiency switching from her current medication/ antibiotic doxycycline to 750 mg of Levaquin daily for the next 5 days is the current anabiotic choice of recommendation. #4 trial Flutter: Patient does have a history per the records of atrial flutter I cannot see this via her previous EKGs I do see some paroxysmal atrial tachycardias. She is currently treated with Coumadin but her INR on arrival was only 1.7. #5 Diastolic Heart Failure: She does have previous echocardiogram suggesting diastolic heart failure and her BNP on arrival was 7658 with a normal creatinine level. As well as treating her COPD is suggest we initiate water restriction and diuresis. At this time I will place on 1.5 L of water restriction and give her Lasix IV.
[2017-06-07] MEDS ORDERED: FUROSEMIDE INJ 20 MG in SYRINGE 0 ML IV ONE (19:00)
[2017-06-07] MEDS: LEVOFLOXACIN 750 MG TAB PO SCH (19:46)
[2017-06-08] VITALS (9 sets, daily range): BP systolic 122–137; BP diastolic 57–86; PULSE 115–122; TEMP 36.5–37; O2SAT 94–98
[2017-06-08] MEDS: METHYLPREDNISOLONE IV 60 MG in SYRINGE 0 ML IV SCH ×2 (00:31→08:24)
[2017-06-08] MEDS: IPRATROPIUM BROMIDE NEB SOLN 0.02% 2.5 ML VIAL INH SCH ×4 (01:22→19:06)
[2017-06-08] MEDS: LEVALBUTEROL 1.25MG/0.5ML NEB INH SCH ×4 (01:22→19:06)
[2017-06-08 07:21] LABS: INR 2.5 (0.9-1.1); PROTHROMBIN TIME (PATIENT) 28.1 SECONDS (9.0-12.0)
[2017-06-08 07:40] LABS: BUN/CREATININE RATIO 23.8 (10-20); CALCIUM 9.1 mg/dl (8.5-10.1); CREATININE 0.77 mg/dl (0.60-1.20); POTASSIUM 4.4 mmol/L (3.5-5.1)
[2017-06-08] MEDS: PANTOprazole SOD 40 MG TAB PO SCH (08:22)
[2017-06-08] MEDS: FUROSEMIDE 20 MG TAB PO SCH (08:23)
[2017-06-08] MEDS: ROFLUMILAST 500 MCG TAB PO SCH (08:23)
[2017-06-08] MEDS: POTASSIUM CHLORIDE 10 MEQ TABCR PO SCH (08:23)
[2017-06-08] MEDS: TIOTROPIUM BROMIDE 5 PUFF/90 MCG INH INH SCH (08:23)
[2017-06-08] MEDS: DICLOFENAC SOD 1% GEL 100 GM TUBE EXT SCH ×2 (08:24→21:00)
[2017-06-08] MEDS: BUDESONIDE/FORMOTEROL FUMARATE 160/4.5 60 PUFFS/INHALER INH SCH ×2 (08:24→21:01)
[2017-06-08] MEDS: TRAMADOL HCL 50 MG TAB PO PRN ×2 (08:35→21:05)
--- NOTE | 2017-06-08 10:30 | PROGRESS NOTE ---
DATE: 06/08/2017 DATE: 06/08/2017 PROBLEM LIST: Includes: 1. Acute on chronic respiratory failure. 2. Severe chronic obstructive pulmonary disease with exacerbation. 3. Pneumonia. 4. History of atrial flutter on Coumadin. 5. Diastolic heart failure. SUBJECTIVE: The patient was seen yesterday by Dr. Thornton. After referencing his note and seeing and evaluating the patient, the patient reports that she is feeling better today. She states that her breathing is improved. She is not back to her baseline, but she is noticing significant difference compared to yesterday. She is not really having much cough at this time. Not much wheezing, not much chest congestion or tightness, not much chest heaviness. She denies any chest pain or palpitations at this time. She is using her oxygen continuously, which she had been prescribed previously but unfortunately had stopped it for about 2 months prior to admission. We did have a long discussion regarding her utilization of oxygen and the need for it and she is agreeable to continuing to use it. She reports that she has many grandkids that she would like to be around to help take care of. No other concerns or problems. No GI issues. No nausea or vomiting. Her bowels are moving. No difficulty voiding. She is not having any difficulty with swelling in her extremities. OBJECTIVE: GENERAL: The patient is a 71-year-old female lying in bed. She is alert and oriented x3. Mood is good. Affect is good. She is able to complete sentences without dyspnea. VITAL SIGNS: Temp 36.5, pulse 118, respirations 22, blood pressure is 122/57. Pulse ox is 94% on 3 liters. HEAD, EYES, EARS, NOSE, AND THROAT: Normocephalic, atraumatic. Pupils equal, round and reactive to light and accommodation. She is nonicterus. Extraocular movements are intact. [place] moist gingival and buccal mucosa. NECK: Supple. No mass. No adenopathy. No bruit. CHEST: She may have faint wheezing in the upper airways on exhalation, but overall did not really appreciate any significant wheezing today. No rale or rhonchi noted. He had fairly good air movement throughout. CARDIOVASCULAR: Regular rate and rhythm. No murmurs, gallops or rubs. ABDOMEN: Bowel sounds present. Abdomen soft, nontender. No guarding, rigidity or organomegaly. EXTREMITIES: No erythema or edema. NEUROLOGIC: Cranial nerves II through XII are intact. There is no focal deficit noted. LABORATORY DATA: INR 2.5. Blood culture preliminary showing no growth to date. No new imaging. IMPRESSION: This is a 71-year-old female with known severe oxygen dependent chronic obstructive pulmonary disease who unfortunately stopped her oxygen about 2 months ago and is here for an exacerbation. The patient is showing some improvement. She did have an overnight oximetry done and it is showing desaturation. This was reviewed with her and she was encouraged to continue using her oxygen, which she agrees to be comply with. She is to continue her routine home medications which include Symbicort, Spiriva, Daliresp. Continue her nebulizers. Currently she is on levofloxacin 750 mg. She is to continue that for a 5-day treatment as per Dr. Thornton's recommendations. 2. Chronic obstructive pulmonary disease. Continue treatment as it is. 3. Pneumonia. The patient is currently on levofloxacin 750 mg daily for 5 days. May be beneficial to do a repeat chest x-ray at some point over the next 2 weeks. 4. Atrial flutter on Coumadin. The patient is stable. 5. Diastolic heart failure, most likely secondary to her stopping her oxygen. She is doing better at this time and she did diurese and has a negative balance of about 475 mL to this point today. PLAN: Will taper steroids a little bit today and see how she does. She is to be continued on her regular medications. Continue pulmonary toilet. Did have a long discussion with her about maintaining and being compliant with her oxygen use. She is agreeable to this. I do expect her to be discharged either tomorrow or Sunday. I did give her an office visit to be followed up with myself on June 19 at 3:15. Will continue to follow through hospitalization. Patient plan reviewed and agreed upon. JUAN
[2017-06-08] MEDS: LEVOFLOXACIN 750 MG TAB PO SCH (17:06)
[2017-06-08] MEDS: METHYLPREDNISOLONE IV 40 MG in SYRINGE 0 ML IV SCH ×2 (17:07→23:17)
[2017-06-08] MEDS: WARFARIN SOD 5 MG TAB PO SCH (17:07)
--- NOTE | 2017-06-08 18:02 | Progress Note ---
Internal Med Progress Note Date of Service: Jun 08, 2017. Provider Documentation: SUBJECTIVE: The patient was seen and examined on 06/08/17 Feels a little better OBJECTIVE: Vital Signs-as noted below Exam: General-Mild distress at rest Eyes-normal ENT-normal Neck-supple Lungs-Decreased breath sound bilaterally Heart-Regular,no murmur appreciated Abdomen-Benign,no masses,bowel sound present Extremities-Trace edema bilaterally Neuro-AAOX3 Lab data as noted below. ASSESSMENT & PLAN: ACUTE ON CHRONIC RESPIRATORY FAILURE SECONDARY TO COPD EXACERBATION : -presented with marked hypoxia ; poor air entry , wheeze -BIPAP ordered but could not tolerate -Pt improved with other supportive measures -ABG shows pulmonary acidosis -lab obtained prior to neb tx -Continue with IV Solu Medrol , Neb tx with Xoponex ( due to tachycardia ) scheduled and PRN q 2hrs -Continued with Symbicort /Daliresp ( roflumilast ) -Started on Oral Doxycycline and changed to Levaquin -Appreciate Pulmonary input OUT patient Urine Culture -E Coli Sensitive to Levaquin Will continue CONFUSION /ENCEPHALOPATHY -may have baseline mental impairment as per record -possible worsening of confusion due to hypoxia /metabolic encephalopathy and recent UTI -lives alone , -PT/OT eval -social service consulted for discharge planning for safe discharge HX OF AFLUTTER ON COUMADIN : -follows with Dr Castro -EKG shows sinus tach -cont on Coumadin ; INR 1.7 -monitor daily PT/INR -no indication for bridge therapy FIBROMYALGIA : cont tramadol -her home meds CHRONIC LOWER EXT SWELLING : On Lasix /K supplement no lower ext edema noted FULL CODE DVT PROPHYLAXIS ON COUMADIN DISPOSITION : expected to be discharged home when medically stable Pt/OT eval prior to discharge home Medicine follow up with Dr Russ Felipe Vital Signs: Date Time Temp Pulse Resp B/P (MAP) Pulse Ox O2 Delivery O2 Flow Rate FiO2 06/09/17 16:16 36.7 117 22 140/75 (96) 97 Nasal Cannula 3.0 06/09/17 16:00 Room Air 06/09/17 14:18 119 20 97 Nasal Cannula 3.0 06/09/17 12:00 Room Air 06/09/17 11:35 36.7 116 18 127/76 (93) 96 3.0 06/09/17 08:00 Room Air 06/09/17 07:47 36.6 115 18 94/67 (76) 99 3.0 06/09/17 07:12 119 20 99 Nasal Cannula 3.0 06/09/17 04:30 36.8 114 18 118/81 (93) 96 Nasal Cannula 06/09/17 04:00 Nasal Cannula 2.0 06/09/17 01:38 117 20 96 Nasal Cannula 3.0 06/09/17 00:09 36.9 115 18 135/94 (108) 93 Nasal Cannula 2.0 06/09/17 00:00 Nasal Cannula 2.0 06/08/17 20:00 Nasal Cannula 2.0 06/08/17 19:51 37.0 117 18 125/79 (94) 95 Nasal Cannula 06/08/17 19:06 120 20 98 Nasal Cannula 3.0 06/08/17 18:15 36.6 121 20 125/79 (94) 96 Nasal Cannula 2.0 Lab Results: Results Past 24 Hours Test 06/09/17 05:37 Range/Units Prothrombin Time 30.7 9.0-12.0 SECONDS Prothromb Time International Ratio 2.8 0.9-1.1 Sodium Level 136 136-145 mmol/L Potassium Level 4.1 3.5-5.1 mmol/L Chloride Level 94 98-107 mmol/L Carbon Dioxide Level 43 21-32 mmol/L Anion Gap -1.0 3-11 mmol/L Blood Urea Nitrogen 20 7-18 mg/dl Creatinine 0.73 0.60-1.20 mg/dl Est Creatinine Clear Calc Drug Dose 67.3 ml/min Estimated GFR () 94.7 Estimated GFR (Non- 81.7 BUN/Creatinine Ratio 26.9 10-20 Random Glucose 153 70-99 mg/dl Calcium Level 8.5 8.5-10.1 mg/dl Magnesium Level 2.2 1.8-2.4 mg/dl
[2017-06-08] MEDS ORDERED: NURSING VERBAL MED ORDER ONE (23:00)
[2017-06-08] MEDS: ZOLPIDEM TARTRATE 5 MG TAB PO PRN (23:17)
[2017-06-09] VITALS (10 sets, daily range): BP systolic 94–147; BP diastolic 67–94; PULSE 114–122; TEMP 36.6–36.9; O2SAT 93–99
[2017-06-09] MEDS: IPRATROPIUM BROMIDE NEB SOLN 0.02% 2.5 ML VIAL INH SCH ×4 (01:37→19:15)
[2017-06-09] MEDS: LEVALBUTEROL 1.25MG/0.5ML NEB INH SCH ×4 (01:38→19:15)
[2017-06-09 06:30] LABS: INR 2.8 (0.9-1.1); PROTHROMBIN TIME (PATIENT) 30.7 SECONDS (9.0-12.0)
[2017-06-09 06:58] LABS: BUN/CREATININE RATIO 26.9 (10-20); CALCIUM 8.5 mg/dl (8.5-10.1); CREATININE 0.73 mg/dl (0.60-1.20); MAGNESIUM 2.2 mg/dl (1.8-2.4); POTASSIUM 4.1 mmol/L (3.5-5.1)
[2017-06-09] MEDS: ROFLUMILAST 500 MCG TAB PO SCH (08:49)
[2017-06-09] MEDS: TIOTROPIUM BROMIDE 5 PUFF/90 MCG INH INH SCH (08:49)
[2017-06-09] MEDS: METHYLPREDNISOLONE IV 40 MG in SYRINGE 0 ML IV SCH ×2 (08:49→16:30)
[2017-06-09] MEDS: TRAMADOL HCL 50 MG TAB PO PRN ×2 (08:49→20:01)
[2017-06-09] MEDS: PANTOprazole SOD 40 MG TAB PO SCH (08:49)
[2017-06-09] MEDS: BUDESONIDE/FORMOTEROL FUMARATE 160/4.5 60 PUFFS/INHALER INH SCH ×2 (08:50→19:59)
[2017-06-09] MEDS: FUROSEMIDE 20 MG TAB PO SCH (08:50)
[2017-06-09] MEDS: DICLOFENAC SOD 1% GEL 100 GM TUBE EXT SCH ×2 (08:51→19:59)
[2017-06-09] MEDS: POTASSIUM CHLORIDE 10 MEQ TABCR PO SCH (08:51)
[2017-06-09] MEDS: LEVOFLOXACIN 750 MG TAB PO SCH (11:54)
[2017-06-09] MEDS: WARFARIN SOD 5 MG TAB PO SCH (16:29)
--- NOTE | 2017-06-09 16:36 | Progress Note ---
Internal Med Progress Note Date of Service: Jun 09, 2017. Provider Documentation: SUBJECTIVE: The patient was seen and examined on 06/08/17 Feels a lot better today Ambulating in room Wants to ambulate more OBJECTIVE: Vital Signs-as noted below Exam: General-Mild distress at rest Eyes-normal ENT-normal Neck-supple Lungs-Decreased breath sound bilaterally Heart-Regular,no murmur appreciated Abdomen-Benign,no masses,bowel sound present Extremities-Trace edema bilaterally Neuro-AAOX3 Lab data as noted below. ASSESSMENT & PLAN: ACUTE ON CHRONIC RESPIRATORY FAILURE SECONDARY TO COPD EXACERBATION : -presented with marked hypoxia ; poor air entry , wheeze -BIPAP ordered but could not tolerate -Pt improved with other supportive measures -ABG shows pulmonary acidosis -lab obtained prior to neb tx -Continue with IV Solu Medrol , Neb tx with Xoponex ( due to tachycardia ) scheduled and PRN q 2hrs -Continued with Symbicort /Daliresp ( roflumilast ) -Started on Oral Doxycycline and changed to Oral Levaquin -Appreciate Pulmonary input -Decrease the dose of Solumedrol and will start oral from tomorrow OUT patient Urine Culture -E Coli Sensitive to Levaquin Will continue with levaquin CONFUSION /ENCEPHALOPATHY -may have baseline mental impairment as per record -possible worsening of confusion due to hypoxia /metabolic encephalopathy and recent UTI -lives alone , -PT/OT eval -social service consulted for discharge planning for safe discharge HX OF AFLUTTER ON COUMADIN : -follows with Dr Castro -EKG shows sinus tach -cont on Coumadin ; INR 1.7 -monitor daily PT/INR -no indication for bridge therapy FIBROMYALGIA : cont tramadol -her home meds No acute issue CHRONIC LOWER EXT SWELLING : On Lasix /K supplement no lower ext edema noted FULL CODE DVT PROPHYLAXIS ON COUMADIN DISPOSITION : expected to be discharged home when medically stable Pt/OT eval prior to discharge home Medicine follow up with Dr Russ Felipe Discussed with the Son in detailed Vital Signs: Date Time Temp Pulse Resp B/P (MAP) Pulse Ox O2 Delivery O2 Flow Rate FiO2 06/09/17 16:16 36.7 117 22 140/75 (96) 97 Nasal Cannula 3.0 06/09/17 16:00 Room Air 06/09/17 14:18 119 20 97 Nasal Cannula 3.0 06/09/17 12:00 Room Air 06/09/17 11:35 36.7 116 18 127/76 (93) 96 3.0 06/09/17 08:00 Room Air 06/09/17 07:47 36.6 115 18 94/67 (76) 99 3.0 06/09/17 07:12 119 20 99 Nasal Cannula 3.0 06/09/17 04:30 36.8 114 18 118/81 (93) 96 Nasal Cannula 06/09/17 04:00 Nasal Cannula 2.0 06/09/17 01:38 117 20 96 Nasal Cannula 3.0 06/09/17 00:09 36.9 115 18 135/94 (108) 93 Nasal Cannula 2.0 06/09/17 00:00 Nasal Cannula 2.0 06/08/17 20:00 Nasal Cannula 2.0 06/08/17 19:51 37.0 117 18 125/79 (94) 95 Nasal Cannula 06/08/17 19:06 120 20 98 Nasal Cannula 3.0 06/08/17 18:15 36.6 121 20 125/79 (94) 96 Nasal Cannula 2.0 Lab Results: Results Past 24 Hours Test 06/09/17 05:37 Range/Units Prothrombin Time 30.7 9.0-12.0 SECONDS Prothromb Time International Ratio 2.8 0.9-1.1 Sodium Level 136 136-145 mmol/L Potassium Level 4.1 3.5-5.1 mmol/L Chloride Level 94 98-107 mmol/L Carbon Dioxide Level 43 21-32 mmol/L Anion Gap -1.0 3-11 mmol/L Blood Urea Nitrogen 20 7-18 mg/dl Creatinine 0.73 0.60-1.20 mg/dl Est Creatinine Clear Calc Drug Dose 67.3 ml/min Estimated GFR () 94.7 Estimated GFR (Non- 81.7 BUN/Creatinine Ratio 26.9 10-20 Random Glucose 153 70-99 mg/dl Calcium Level 8.5 8.5-10.1 mg/dl Magnesium Level 2.2 1.8-2.4 mg/dl
[2017-06-09] MEDS: ZOLPIDEM TARTRATE 5 MG TAB PO PRN (20:49)
[2017-06-10] VITALS (9 sets, daily range): BP systolic 124–150; BP diastolic 72–91; PULSE 111–123; TEMP 36.5–36.7; O2SAT 94–98
[2017-06-10] MEDS: METHYLPREDNISOLONE IV 40 MG in SYRINGE 0 ML IV SCH (00:38)
[2017-06-10] MEDS: LEVALBUTEROL 1.25MG/0.5ML NEB INH SCH ×4 (01:56→20:26)
[2017-06-10] MEDS: IPRATROPIUM BROMIDE NEB SOLN 0.02% 2.5 ML VIAL INH SCH ×4 (01:56→20:26)
[2017-06-10 05:59] LABS: INR 2.8 (0.9-1.1); PROTHROMBIN TIME (PATIENT) 31.1 SECONDS (9.0-12.0)
[2017-06-10 06:24] LABS: BUN/CREATININE RATIO 30.3 (10-20); CALCIUM 8.6 mg/dl (8.5-10.1); CREATININE 0.71 mg/dl (0.60-1.20); MAGNESIUM 2.2 mg/dl (1.8-2.4); POTASSIUM 4.6 mmol/L (3.5-5.1)
[2017-06-10] MEDS: DICLOFENAC SOD 1% GEL 100 GM TUBE EXT SCH ×2 (08:26→19:41)
[2017-06-10] MEDS: PANTOprazole SOD 40 MG TAB PO SCH (08:27)
[2017-06-10] MEDS: TRAMADOL HCL 50 MG TAB PO PRN ×2 (08:27→19:43)
[2017-06-10] MEDS: POTASSIUM CHLORIDE 10 MEQ TABCR PO SCH (08:27)
[2017-06-10] MEDS: ROFLUMILAST 500 MCG TAB PO SCH (08:27)
[2017-06-10] MEDS: FUROSEMIDE 20 MG TAB PO SCH (08:27)
[2017-06-10] MEDS: BUDESONIDE/FORMOTEROL FUMARATE 160/4.5 60 PUFFS/INHALER INH SCH ×2 (08:28→19:44)
[2017-06-10] MEDS: TIOTROPIUM BROMIDE 5 PUFF/90 MCG INH INH SCH (08:28)
[2017-06-10] MEDS: LEVOFLOXACIN 750 MG TAB PO SCH (11:27)
--- NOTE | 2017-06-10 12:21 | Pulmonology Progress Note ---
Pulmonary Progress Note Date of Service Jun 10, 2017. Attending Dr. Thornton Subjective Patient's overall respiratory status is improving but she notes she is not back to her baseline and still has some mild dyspnea on exertion Objective Patient is able to sit up and that easily and ambulate throughout the room with no signs of increased work of breathing: I/O: -1.9L RR: 18-22 SaO2: 97-98% FiO2: 3Lnc HR: 112-123 RESP: Mild expiratory rhonchi CARD: S1-S2 regular rate and rhythm ABD: Positive bowel sounds soft nontender EXT: 1-2+ pitting edema Oximetry Study (06/07/17) total time < 88% 520 sec Labs: INR: 2.8 WBC: 9K CO2: 4143--40 Microbiology Current admission no significant growth Expectorated sputum 02/16/2015: Haemophilus influenza Medications: 1) Prednisone 40mg QD 2) Levofloxacin 750mg QD 3) Warfarin 5mg QD 4) Symbicort 160/4.5 2 puffs BID 5) Daliresp 500mcg QD 6) Spiriva 1 PUFF qd 7) Xopenex/Atrovent Neb (Q6 & prn) Radiology: 1) Metabolic Alkalosis: most likely renal lose with post-hypercapnia, diuretics and Assessment & Plan 71-year-old female with acute on chronic respiratory insufficiency: #1 Respiratory Insufficiency: The patient's acute on chronic respiratory insufficiency is secondary to poor compliance that she is oxygen dependent return to her oxygen 2 months prior. She is responded well to poor overall therapies with diuresis, steroids, antibiotics and continuation of her outpatient pulmonary regimen. At this time she is progressing nicely and should be able to be discharged in the next 24-48 hours. #2 COPD: Agree with titrating down to oral prednisone at this time continue other inhaler regimens as well as Daliresp. The patient did have a nocturnal desaturation study which suggests she would benefit from BiPAP therapy decreasing her overall work of breathing and readmission rate but she refuses to use the BiPAP device. #3 Pneumonia: Patient is progressing nicely currently on day 4 of 5 of Levaquin. #4 Atrial Flutter: Patient does have a history per the records of atrial flutter I cannot see this via her previous EKGs I do see some paroxysmal atrial tachycardias. She is currently treated with Coumadin but her INR on arrival was only 1.7. #5 Diastolic Heart Failure: Patient has a clinical history as well as previous echocardiogram and elevated BNP on arrival suggest she has some underlying diastolic heart failure. At this time with diuresis and fluid restriction she has progressed nicely. . #6 Alkalosis: Patient is a hypochloremic alkalosis suggesting post- hypercapnic and associated diuretic induced alkalemia. Data Medications: Current Inpatient Medications Medications (Trade) Dose Ordered Sig/Racheal Route Start Time Stop Time Status Last Admin Dose Admin Acetaminophen (Tylenol Tab) 650 mg Q4H PRN PO 06/07/17 02:15 07/07/17 02:14 06/08/17 18:13 650 MG Al Hydrox/Mg Hydrox/Simethicone (Maalox Max Susp) 15 ml Q4H PRN PO 06/07/17 02:15 07/07/17 02:14 Magnesium Hydroxide (Milk Of Magnesia Susp) 30 ml Q12H PRN PO 06/07/17 02:15 07/07/17 02:14 Ondansetron HCl (Zofran Inj) 4 mg Q6H PRN IV 06/07/17 02:15 07/07/17 02:14 Nitroglycerin (Nitrostat Tab) 0.4 mg UD PRN SL 06/07/17 02:15 07/07/17 02:14 Polyethylene (Miralax Powder Packet) 17 gm DAILY PRN PO 06/07/17 02:15 07/07/17 02:14 Albuterol (Ventolin Hfa Inhaler) 2 puffs Q4H PRN INH 06/07/17 02:30 07/07/17 02:29 Budesonide/ Formoterol Fumarate (Symbicort 160/ 4.5 Inh) 2 puffs BID INH 06/07/17 09:00 07/07/17 08:59 06/10/17 08:28 2 PUFFS Diclofenac Sodium (Voltaren 1% Top Gel) 1 appln BID EXT 06/07/17 09:00 07/07/17 08:59 06/10/17 08:26 1 APPLN Roflumilast (Daliresp Tab) 500 mcg DAILY PO 06/07/17 09:00 07/07/17 08:59 06/10/17 08:27 500 MCG Tiotropium Grampian (Spiriva Handihaler Inhaler) 1 puff DAILY INH 06/07/17 09:00 07/07/17 08:59 06/10/17 08:28 1 PUFF Tramadol HCl (Ultram Tab) 50 mg TID PRN PO 06/07/17 02:30 07/07/17 02:29 06/10/17 08:27 50 MG Warfarin Sodium (Coumadin Tab) 5 mg DAILY@1600 PO 06/07/17 16:00 07/07/17 15:59 06/09/17 16:29 5 MG Pantoprazole Sodium (Protonix Tab) 40 mg QAM PO 06/07/17 09:00 07/07/17 08:59 06/10/17 08:27 40 MG Potassium Chloride (Klor-Con M10) 10 meq DAILY PO 06/07/17 09:00 07/07/17 08:59 06/10/17 08:27 10 MEQ Furosemide (Lasix Tab) 20 mg DAILY PO 06/07/17 09:00 07/07/17 08:59 06/10/17 08:27 20 MG Ipratropium Grampian (Atrovent 0.02% 0.5MG/2.5ML Neb) 0.5 mg Q6R INH 06/07/17 03:00 07/07/17 02:59 06/10/17 01:56 0.5 MG Levalbuterol (Xopenex 1.25MG/ 0.5ML Neb) 1.25 mg Q6R INH 06/07/17 03:00 07/07/17 02:59 06/10/17 01:56 1.25 MG Ipratropium [place]ampian (Atrovent 0.02% 0.5MG/2.5ML Neb) 0.5 mg Q2H PRN INH 06/07/17 02:45 07/07/17 02:44 Levalbuterol (Xopenex 1.25MG/ 0.5ML Neb) 1.25 mg Q2H PRN INH 06/07/17 02:45 07/07/17 02:44 Levofloxacin (Levaquin Tab) 750 mg DAILY@1100 PO 06/07/17 19:00 06/14/17 10:59 06/10/17 11:27 750 MG Zolpidem Tartrate (Ambien Tab) 5 mg HSZ PRN PO 06/08/17 23:00 07/08/17 22:59 06/09/17 20:49 5 MG Prednisone (PredniSONE TAB) 40 mg Taper DAILY@0900 PO 06/10/17 09:00 06/30/17 08:59 06/10/17 09:26 40 MG Vital Signs: Date Time Temp Pulse Resp B/P (MAP) Pulse Ox O2 Delivery O2 Flow Rate FiO2 06/10/17 11:48 36.6 115 18 124/84 (97) 94 3.0 06/10/17 07:58 36.7 118 18 150/91 (110) 97 3.0 06/10/17 04:00 Nasal Cannula 3.0 06/10/17 03:42 36.5 117 21 130/84 (99) 98 Nasal Cannula 3.0 06/10/17 01:56 112 20 97 Nasal Cannula 3.0 06/10/17 00:20 36.7 123 22 137/83 (101) 97 Nasal Cannula 3.0 06/10/17 00:00 Nasal Cannula 3.0 06/09/17 20:00 Nasal Cannula 3.0 06/09/17 19:44 36.7 122 23 147/85 (105) 97 Nasal Cannula 2.0 06/09/17 19:15 116 20 97 Nasal Cannula 3.0 06/09/17 16:16 36.7 117 22 140/75 (96) 97 Nasal Cannula 3.0 06/09/17 16:00 Room Air 06/09/17 14:18 119 20 97 Nasal Cannula 3.0 Laboratory Results: Last 24 Hours Test 06/10/17 05:32 Prothrombin Time 31.1 SECONDS Prothromb Time International Ratio 2.8 Sodium Level 138 mmol/L Potassium Level 4.6 mmol/L Chloride Level 94 mmol/L Carbon Dioxide Level 40 mmol/L Anion Gap 4.0 mmol/L Blood Urea Nitrogen 22 mg/dl Creatinine 0.71 mg/dl Est Creatinine Clear Calc Drug Dose 69.2 ml/min Estimated GFR () 97.9 Estimated GFR (Non- 84.5 BUN/Creatinine Ratio 30.3 Random Glucose 139 mg/dl Calcium Level 8.6 mg/dl Magnesium Level 2.2 mg/dl
--- NOTE | 2017-06-10 12:25 | Progress Note ---
Internal Med Progress Note Date of Service: Jun 10, 2017. Provider Documentation: SUBJECTIVE: The patient was seen and examined on 06/08/17 Feels a lot better today Ambulating in room Wants to ambulate more Clinically a lot better OBJECTIVE: Vital Signs-as noted below Exam: General-Mild distress at rest Eyes-normal ENT-normal Neck-supple Lungs-Decreased breath sound bilaterally No wheezing and or crackles Heart-Regular,no murmur appreciated Abdomen-Benign,no masses,bowel sound present Extremities-Trace edema bilaterally Neuro-AAOX3 Lab data as noted below. ASSESSMENT & PLAN: ACUTE ON CHRONIC RESPIRATORY FAILURE SECONDARY TO COPD EXACERBATION : -presented with marked hypoxia ; poor air entry , wheeze -BIPAP ordered but could not tolerate -Pt improved with other supportive measures -ABG shows pulmonary acidosis -lab obtained prior to neb tx -Continue with IV Solu Medrol , Neb tx with Xoponex ( due to tachycardia ) scheduled and PRN q 2hrs -Continued with Symbicort /Daliresp ( roflumilast ) -Started on Oral Doxycycline and changed to Oral Levaquin -Appreciate Pulmonary input -Decrease the dose of Solumedrol and will start oral from tomorrow -Change Solumedrol to oral Prednisone with tapering dose -Likely discharge tomorrow OUT patient Urine Culture -E Coli Sensitive to Levaquin Will continue with Levaquin No symptoms CONFUSION /ENCEPHALOPATHY -may have baseline mental impairment as per record -possible worsening of confusion due to hypoxia /metabolic encephalopathy and recent UTI -lives alone , -PT/OT eval -social service consulted for discharge planning for safe discharge -Cleared now HX OF AFLUTTER ON COUMADIN : -follows with Dr Castro -EKG shows sinus tach -cont on Coumadin ; INR 1.7 -monitor daily PT/INR -no indication for bridge therapy FIBROMYALGIA : cont tramadol -her home meds No acute issue CHRONIC LOWER EXT SWELLING : On Lasix /K supplement no lower ext edema noted FULL CODE DVT PROPHYLAXIS ON COUMADIN DISPOSITION : expected to be discharged home when medically stable Pt/OT eval prior to discharge home Medicine follow up with Dr Russ Felipe Discussed with the Son in detailed Vital Signs: Date Time Temp Pulse Resp B/P (MAP) Pulse Ox O2 Delivery O2 Flow Rate FiO2 06/10/17 11:48 36.6 115 18 124/84 (97) 94 3.0 06/10/17 07:58 36.7 118 18 150/91 (110) 97 3.0 06/10/17 04:00 Nasal Cannula 3.0 06/10/17 03:42 36.5 117 21 130/84 (99) 98 Nasal Cannula 3.0 06/10/17 01:56 112 20 97 Nasal Cannula 3.0 06/10/17 00:20 36.7 123 22 137/83 (101) 97 Nasal Cannula 3.0 06/10/17 00:00 Nasal Cannula 3.0 06/09/17 20:00 Nasal Cannula 3.0 06/09/17 19:44 36.7 122 23 147/85 (105) 97 Nasal Cannula 2.0 06/09/17 19:15 116 20 97 Nasal Cannula 3.0 06/09/17 16:16 36.7 117 22 140/75 (96) 97 Nasal Cannula 3.0 06/09/17 16:00 Room Air 06/09/17 14:18 119 20 97 Nasal Cannula 3.0 Lab Results: Results Past 24 Hours Test 06/10/17 05:32 Range/Units Prothrombin Time 31.1 9.0-12.0 SECONDS Prothromb Time International Ratio 2.8 0.9-1.1 Sodium Level 138 136-145 mmol/L Potassium Level 4.6 3.5-5.1 mmol/L Chloride Level 94 98-107 mmol/L Carbon Dioxide Level 40 21-32 mmol/L Anion Gap 4.0 3-11 mmol/L Blood Urea Nitrogen 22 7-18 mg/dl Creatinine 0.71 0.60-1.20 mg/dl Est Creatinine Clear Calc Drug Dose 69.2 ml/min Estimated GFR () 97.9 Estimated GFR (Non- 84.5 BUN/Creatinine Ratio 30.3 10-20 Random Glucose 139 70-99 mg/dl Calcium Level 8.6 8.5-10.1 mg/dl Magnesium Level 2.2 1.8-2.4 mg/dl
[2017-06-10] MEDS: WARFARIN SOD 5 MG TAB PO SCH (17:33)
[2017-06-10] MEDS: ZOLPIDEM TARTRATE 5 MG TAB PO PRN (21:00)
[2017-06-11] VITALS (12 sets, daily range): BP systolic 123–192; BP diastolic 70–98; PULSE 86–130; TEMP 36.1–37.4; O2SAT 91–100
[2017-06-11] MEDS: IPRATROPIUM BROMIDE NEB SOLN 0.02% 2.5 ML VIAL INH SCH ×3 (01:53→14:03)
[2017-06-11] MEDS: LEVALBUTEROL 1.25MG/0.5ML NEB INH SCH ×3 (01:53→14:03)
[2017-06-11 06:55] LABS: INR 2.9 (0.9-1.1); PROTHROMBIN TIME (PATIENT) 32.7 SECONDS (9.0-12.0)
[2017-06-11] MEDS: POTASSIUM CHLORIDE 10 MEQ TABCR PO SCH (07:55)
[2017-06-11] MEDS: PANTOprazole SOD 40 MG TAB PO SCH (07:55)
[2017-06-11] MEDS: FUROSEMIDE 20 MG TAB PO SCH (07:56)
[2017-06-11] MEDS: ROFLUMILAST 500 MCG TAB PO SCH (07:56)
[2017-06-11] MEDS: TIOTROPIUM BROMIDE 5 PUFF/90 MCG INH INH SCH (07:57)
[2017-06-11] MEDS: BUDESONIDE/FORMOTEROL FUMARATE 160/4.5 60 PUFFS/INHALER INH SCH (07:57)
[2017-06-11] MEDS: DICLOFENAC SOD 1% GEL 100 GM TUBE EXT SCH (07:58)
--- NOTE | 2017-06-11 09:39 | Progress Note ---
Internal Med Progress Note Date of Service: Jun 11, 2017. Provider Documentation: SUBJECTIVE: The patient was seen and examined on 06/08/17 Feels a lot better today Ambulating in room Wants to ambulate more Clinically a lot better and ready to be discharged Pt feels that she can go home OBJECTIVE: Vital Signs-as noted below Exam: General-Mild distress at rest Eyes-normal ENT-normal Neck-supple Lungs-Decreased breath sound bilaterally-improved No wheezing and or crackles Heart-Regular,no murmur appreciated Abdomen-Benign,no masses,bowel sound present Extremities-Trace edema bilaterally Neuro-AAOX3 Lab data as noted below. ASSESSMENT & PLAN: ACUTE ON CHRONIC RESPIRATORY FAILURE SECONDARY TO COPD EXACERBATION : -presented with marked hypoxia ; poor air entry , wheeze -BIPAP ordered but could not tolerate -Pt improved with other supportive measures -ABG shows pulmonary acidosis -lab obtained prior to neb tx -Continue with IV Solu Medrol , Neb tx with Xoponex ( due to tachycardia ) scheduled and PRN q 2hrs -Continued with Symbicort /Daliresp ( roflumilast ) -Started on Oral Doxycycline and changed to Oral Levaquin -Appreciate Pulmonary input -Decrease the dose of Solumedrol and will start oral from tomorrow -Change Solumedrol to oral Prednisone with tapering dose -Likely discharge today -she feels that she can go home today OUT patient Urine Culture -E Coli Sensitive to Levaquin Will continue with Levaquin No symptoms CONFUSION /ENCEPHALOPATHY -may have baseline mental impairment as per record -possible worsening of confusion due to hypoxia /metabolic encephalopathy and recent UTI -lives alone , -PT/OT eval -social service consulted for discharge planning for safe discharge -Cleared now HX OF AFLUTTER ON COUMADIN : -follows with Dr Castro -EKG shows sinus tach -cont on Coumadin ; INR 1.7 -monitor daily PT/INR -no indication for bridge therapy -INR 2.9 today FIBROMYALGIA : cont tramadol -her home meds No acute issue CHRONIC LOWER EXT SWELLING : On Lasix /K supplement no lower ext edema noted FULL CODE DVT PROPHYLAXIS ON COUMADIN DISPOSITION : expected to be discharged home when medically stable Pt/OT eval prior to discharge home Medicine follow up with Dr Russ Felipe Discussed with the Son in detailed Likely to be discharged today Vital Signs: Date Time Temp Pulse Resp B/P (MAP) Pulse Ox O2 Delivery O2 Flow Rate FiO2 06/11/17 08:27 37.1 130 20 125/90 (102) 99 Nasal Cannula 3.0 06/11/17 07:00 117 18 100 Nasal Cannula 3.0 06/11/17 04:00 Nasal Cannula 3.0 06/11/17 03:58 36.7 122 22 138/93 (108) 100 Nasal Cannula 3.0 06/11/17 01:54 110 18 99 Nasal Cannula 3.0 06/11/17 00:04 36.5 116 20 123/76 (92) 99 Nasal Cannula 3.0 06/11/17 00:00 Nasal Cannula 3.0 06/10/17 20:29 114 18 96 Nasal Cannula 3.0 06/10/17 20:00 Nasal Cannula 3.0 06/10/17 19:21 36.7 117 18 141/72 (95) 98 Nasal Cannula 3.0 06/10/17 16:00 Nasal Cannula 2.0 06/10/17 15:29 111 20 98 Nasal Cannula 3.0 06/10/17 15:27 36.7 116 20 145/91 (109) 97 Nasal Cannula 3.0 06/10/17 12:00 Nasal Cannula 2.0 06/10/17 11:48 36.6 115 18 124/84 (97) 94 3.0 Lab Results: Results Past 24 Hours Test 06/11/17 05:55 Range/Units Prothrombin Time 32.7 9.0-12.0 SECONDS Prothromb Time International Ratio 2.9 0.9-1.1
[2017-06-11] MEDS: LEVOFLOXACIN 750 MG TAB PO SCH (11:51)
[2017-06-11] MEDS ORDERED: PRD10 PO (17:06)
[2017-06-11] MEDS ORDERED: OXGN (17:06)
--- NOTE | 2017-06-11 17:11 | Discharge Instructions ---
Discharge Instructions Date of Service Jun 11, 2017. Admission Reason for Admission: Copd, Hypoxia Discharge Discharge Diagnosis / Problem: Acute on Chronic Respiratory failure Discharge Goals Goal(s): Prevent Disease Progression Activity Recommendations Activity Limitations: resume your previous activity . Instructions / Follow-Up Instructions / Follow-Up Dr Moon on 06/15/17 at 10:45 AM and [place]en (Pulmonary ) on Sunday , 06/19/17 at 3:15 PM.Continue to follow up with the Coagulation clinic Current Hospital Diet Patient's current hospital diet: AHA Diet (Heart Healthy) Discharge Diet Recommended Diet: AHA Diet (Heart Healthy) Fluid Restriction: 1500 ml (6 cups) Pending Studies Studies pending at discharge: no Medical Emergencies . Who to Call and When: Medical Emergencies: If at any time you feel your situation is an emergency, please call 911 immediately. . Non-Emergent Contact Non-Emergency issues call your: Primary Care Provider . Past History Medical & Surgical History: (1) Respiratory failure, [id number] (2) Fall (3) Closed fracture of left proximal humerus (4) Hypoxia (5) COPD with acute exacerbation (6) Hypertension (7) Dyslipidemia (8) Fibromyalgia (9) Osteoporosis (10) Status post appendectomy (11) Status post hysterectomy (12) Status post repair of ventral hernia (13) Hx of cataract surgery (14) S/P Mohs surgery for basal cell carcinoma (15) History of cyst removal left breast . "Provider Documentation" section prepared by Max Hallman. . VTE Core Measure Inpt VTE Proph given/why not?: Unfractionated heparin SQ
[2017-06-11] MEDS: WARFARIN SOD 5 MG TAB PO SCH (17:48)
--- NOTE | 2017-06-12 11:22 | Discharge Summary ---
Discharge Summary Date of Service Jun 12, 2017. Discharge Summary Admission Date: Jun 07, 2017 at 02:15 Discharge Date: Jun 11, 2017 Discharge Disposition: Home with services Principal Diagnosis: Acute on Chronic Respiratory failure,UTI Secondary Diagnoses/Problems: Please see H&P and Hospital progress note Consultations: Pulmonary Medication Reconciliation New Medications: Home O2 Therapy (Oxygen) Gas 2 LITERS NA PRN for 30 Days Continue as before.May need 3-4 liters on ambulation Prednisone (Prednisone) 10 Mg Tab 10 MG PO DAILY@0900 for 20 Days, #50 TAB 4 po daily for 4 days,3 daily for 5 days,2 daily for 5 days and then 1 daily for 5 days. Continued Medications: Albuterol Hfa (Ventolin Hfa) 200 Puffs/52023 Mcg Aers 2 PUFFS INH Q4H PRN for SOB/Wheezing Budesonide/Formoterol Fumarate (Symbicort 160/4.5 Inhaler) 120 Puffs/ Aero 2 PUFFS INH BID Diclofenac Sodium (Topical) (Voltaren 1% Top Gel) 1 % Gel 1 APPLN TD BID Furosemide (Lasix) 20 Mg Tab 20 MG PO DAILY Ipratropium-Albuterol (Duoneb) 3 Ml Nebu 1 TREATMENT INH Q4H PRN for SOB/Wheezing, INHA Omeprazole (Prilosec) 20 Mg Capcr 20 MG PO QAM Potassium Chloride (K-Tabs) 10 Meq Tab 10 MEQ PO DAILY Roflumilast (Daliresp) 500 Mcg Tab 500 MG PO DAILY Tiotropium [place] (Spiriva Handihaler) 30 Puff/540 Mcg Aerp 1 PUFF INH DAILY Tramadol HCl (Tramadol HCl) 50 Mg Tab 50 MG PO TID PRN for Pain Warfarin Sod (Coumadin) 5 Mg Tab 5 MG PO DAILY Discontinued Medications: Prednisone (Prednisone) 20 Mg Tab 40 MG PO DAILY Admission Information HPI (per Admitting provider): This is 71 yo F with hx of COPD ( moderate to severe ) ; Aflutter /fibromyalgia presented to ED with Hypoxia , found to be 86 % in room air , with poor air entry respiratory acidosis with low pH 7.3 given hour long neb tx , her respiratory status improved , spo02 92 % on 3 L 02 during my interview , pt was comfortable, not in any respiratory distress , speaking in sentences very poor Historian , baseline confusion ( dementia ? ) needed a lot of redirection to obtain information mentions that she got home 02 delivered day before yesterday -but did not think it was working ( as she could not " taste " it ) got confused today , could take breath , could not walk or talk , called her grand son to come over and get her to ER can not tell be for sure if she had any fever /chills , mention that she had cough ( but " always " had it ) say pulmonary Domenica Black 2 days back , everything was fine then Past Medical/Surgical History Medical Problems: (1) BCC (basal cell carcinoma of skin) Permanent Comment: s/p MOHS surgery Status: Chronic (2) COPD (chronic obstructive pulmonary disease) Permanent Comment: severity to be determined Status: Chronic (3) Dyslipidemia Status: Chronic (4) Fibromyalgia Status: Chronic (5) GERD (gastroesophageal reflux disease) Status: Chronic (6) Hypertension Status: Chronic (7) Osteoporosis Status: Chronic Surgical Problems: (1) History of cyst removal left breast Status: Chronic (2) Hx of cataract surgery Status: Chronic (3) S/P Mohs surgery for basal cell carcinoma Status: Chronic (4) Status post appendectomy Status: Chronic (5) Status post hysterectomy Status: Chronic (6) Status post repair of ventral hernia Status: Chronic Family History Cancer Social History Smoking Status: Former Smoker Drug Use: none Housing status: lives with family Occupational Status: employed Immunizations History of Influenza Vaccine: Yes Influenza Vaccine Date: Aug 24, 2015 History of Tetanus Vaccine?: Yes Tetanus Immunization Date: Jan 20, 2014 History of Pneumococcal: Yes Pneumococcal Date: Dec 13, 2014 Multi-Drug Resistant Organisms History of MDRO: Yes Type of MDRO: MRSA Allergies Coded Allergies: Duloxetine (Verified Allergy, Intermediate, RASH, 07/26/16) CI Pigment Blue 63 (Verified Allergy, Unknown, RASH, 07/26/16) Naproxen (Verified Adverse Reaction, Mild, GI SYMPTOMS, 07/26/16) Home Medications Scheduled Budesonide/Formoterol Fumarate (Symbicort 160/4.5 Inhaler), 2 PUFFS INH BID Diclofenac Sodium (Topical) (Voltaren 1% Top Gel), 1 APPLN TD BID Furosemide (Lasix), 20 MG PO DAILY Omeprazole (Prilosec), 20 MG PO QAM Potassium Chloride (K-Tabs), 10 MEQ PO DAILY Prednisone (Prednisone), 40 MG PO DAILY Roflumilast (Daliresp), 500 MG PO DAILY Tiotropium [place] (Spiriva Handihaler), 1 PUFF INH DAILY Warfarin Sod (Coumadin), 5 MG PO DAILY Scheduled PRN Albuterol Hfa (Ventolin Hfa), 2 PUFFS INH Q4H PRN for SOB/Wheezing Ipratropium-Albuterol (Duoneb), 1 TREATMENT INH Q4H PRN for SOB/Wheezing Tramadol HCl (Tramadol HCl), 50 MG PO TID PRN for Pain Review of Systems limited due to poor history /confusion Respiratory: + cough, + wheezing, + shortness of breath, + dyspnea on exertion Neurologic: + weakness, + numbness/tingling Physical Ex - H&P Physical Exam Vital Signs Date Time Temp Pulse Resp B/P (MAP) Pulse Ox O2 Delivery O2 Flow Rate FiO2 06/07/17 02:06 112 22 129/86 92 Nasal Cannula 3.0 06/07/17 01:36 Nasal Cannula 2.0 06/07/17 01:23 111 22 122/99 98 Nebulizer 06/07/17 01:11 128 06/07/17 00:56 96 Nasal Cannula 3.0 06/07/17 00:55 136 150/128 06/07/17 00:46 128 20 99 Nasal Cannula 4.0 06/07/17 00:22 37.0 133 24 138/82 68 Room Air General Appearance: no apparent distress Head: normocephalic, atraumatic Eyes: normal inspection Neck: no JVD Respiratory/Chest: chest non-tender, + pertinent finding (diminished breath sound , no audible wheeze ( pt got breathing treament prior ) ) Cardiovascular: + tachycardia Abdomen/GI: non tender, soft Extremities/Musculoskelatal: no calf tenderness, normal capillary refill, no pedal edema Neurologic/Psych: no motor/sensory deficits, alert, + pertinent finding ( confusion , oriented to place and person ) Diagnostics - H&P Diagnostics Laboratory Results Results Past 24 Hours Test 06/07/17 00:40 06/07/17 00:47 06/07/17 01:22 Range/Units White Blood Count 10.61 4.8-10.8 K/uL Red Blood Count 5.27 4.2-5.4 M/uL Hemoglobin 14.6 12.0-16.0 g/dL Hematocrit 48.9 37-47 % Mean Corpuscular Volume 92.8 80-100 fL Mean Corpuscular Hemoglobin 27.7 25-34 pg Mean Corpuscular Hemoglobin Concent 29.9 32-36 g/dl Platelet Count 246 130-400 K/uL Mean Platelet Volume 11.2 7.4-10.4 fL Neutrophils (%) (Auto) 76.2 % Lymphocytes (%) (Auto) 14.0 % Monocytes (%) (Auto) 8.3 % Eosinophils (%) (Auto) 1.1 % Basophils (%) (Auto) 0.2 % Neutrophils # (Auto) 8.08 1.4-6.5 K/uL Lymphocytes # (Auto) 1.49 1.2-3.4 K/uL Monocytes # (Auto) 0.88 0.11-0.59 K/uL Eosinophils # (Auto) 0.12 0-0.5 K/uL Basophils # (Auto) 0.02 0-0.2 K/uL RDW Standard Deviation 46.3 36.4-46.3 fL RDW Coefficient of Variation 13.7 11.5-14.5 % Immature Granulocyte % (Auto) 0.2 % Immature Granulocyte # (Auto) 0.02 0.00-0.02 K/uL Prothrombin Time 18.9 9.0-12.0 SECONDS Prothromb Time International Ratio 1.7 0.9-1.1 Activated Partial Thromboplast Time 28.3 21.0-31.0 SECONDS Partial Thromboplastin Ratio 1.1 Sodium Level 137 136-145 mmol/L Potassium Level 4.3 3.5-5.1 mmol/L Chloride Level 95 98-107 mmol/L Carbon Dioxide Level 40 21-32 mmol/L Anion Gap 2.0 3-11 mmol/L Blood Urea Nitrogen 16 7-18 mg/dl Creatinine 0.75 0.60-1.20 mg/dl Estimated GFR () 91.7 Estimated GFR (Non- 79.1 BUN/Creatinine Ratio 21.3 10-20 Random Glucose 164 70-99 mg/dl Calcium Level 8.7 8.5-10.1 mg/dl Magnesium Level 1.7 1.8-2.4 mg/dl Total Creatine Kinase 75 26-192 U/L Creatine Kinase MB 2.5 0.5-3.6 ng/ml Creatine Kinase MB Ratio 3.3 0-3.0 Troponin I 0.032 0-0.045 ng/ml Pro-B-Type Natriuretic Peptide 7658 0-900 pg/ml Bedside Lactic Acid Venous 1.28 0.90-1.70 mmol/L Arterial Blood pH 7.31 7.35-7.45 Arterial Blood Partial Pressure CO2 79 35-46 mmHg Arterial Blood Partial Pressure O2 213 80-95 mm/Hg Arterial Blood HCO3 38 19-24 mmol/L Arterial Blood Oxygen Saturation 99.5 90-95 % Arterial Blood Base Excess 9.0 -9-1.8 mEq/L Arterial Blood Gas Delivery ROOM AIR [place] Test POS POS Microbiology Results 06/07/17 Blood Culture, Received Pending 06/07/17 Blood Culture, Received Pending No Infiltrate, No Atelectasis EKG sinus tachycardia @ 130 bpm Impression - H&P Impression Assessment and Plan SOB /HYPOXIA /COPD EXACERBATION : ACUTE ON CHRONIC RESPIRATORY FAILURE : presented with marked hypoxia ; poor air entry , wheeze symptom improved with hour long neb tx ABG shows pulmonary acidosis -lab obtained prior to neb tx will repeat lab in Am as pt's respiratory status improved to approx baseline cont iV Solu Medrol , Neb tx with Xoponex ( due to tachycardia ) scheduled and PRN q 2hrs pt is continued with Symbicort /Daliresp ( roflumilast ) no infiltrate noted in CXray empiric Abx with Doxycycline ( blood cultures obtained in ED ) Abx can be de escalated after culture results obtained pulmonology consult requested -[place] is [place] [facility] [place] CONFUSION /ENCEPHALOPATHY not sure of her baseline possible worsening of confusion due to hypoxia /metabolic encephalopathy cont supportive care for COPD exacerbation cont to monitor lives alone , PT/OT eval social service consulted for discharge planning for safe discharge HX OF AFLUTTER ON COUMADIN : follows with Dr Castro EKG shows sinus tach tele monitoring cont on Coumadin ; INR 1.7 monitor daily PT/INR -no indication for bridge therapy FIBROMYALGIA : cont tramadol -her home meds CHRONIC LOWER EXT SWELLING : On Lasix /K supplement no lower ext edema noted LOW MG : Replaced follow labs FULL CODE DVT PROPHYLAXIS ON COUMADIN DISPOSITION : expected to be discharged home when medically stable Pt/OT eval prior to discharge home Medicine follow up with Dr Russ Felipe Level of Care Telemetry Resuscitation Status FULL RESUSCITATION VTE Prophylaxis VTE Risk Assessment Done? Y/N: Yes Risk Level: Moderate Given or contraindicated: Unfractionated heparin SQ Additional Copies To Russ Moon M.D. Physical Exam (per Admitting): General Appearance: no apparent distress Head: normocephalic, atraumatic Eyes: normal inspection Neck: no JVD Respiratory/Chest: chest non-tender, + pertinent finding (diminished breath sound , no audible wheeze ( pt got breathing treament prior ) ) Cardiovascular: + tachycardia Abdomen/GI: non tender, soft Extremities/Musculoskelatal: no calf tenderness, normal capillary refill, no pedal edema Neurologic/Psych: no motor/sensory deficits, alert, + pertinent finding ( confusion , oriented to place and person ) Hospital Course ACUTE ON CHRONIC RESPIRATORY FAILURE SECONDARY TO COPD EXACERBATION : -presented with marked hypoxia ; poor air entry , wheeze -BIPAP ordered but could not tolerate -Pt improved with other supportive measures -ABG shows pulmonary acidosis -lab obtained prior to neb tx -Continue with IV Solu Medrol , Neb tx with Xoponex ( due to tachycardia ) scheduled and PRN q 2hrs -Continued with Symbicort /Daliresp ( roflumilast ) -Started on Oral Doxycycline and changed to Oral Levaquin -Appreciate Pulmonary input -Decrease the dose of Solumedrol and will start oral from tomorrow -Change Solumedrol to oral Prednisone with tapering dose -Likely discharge today -she feels that she can go home today OUT patient Urine Culture -E Coli Sensitive to Levaquin Will continue with Levaquin No symptoms CONFUSION /ENCEPHALOPATHY -may have baseline mental impairment as per record -possible worsening of confusion due to hypoxia /metabolic encephalopathy and recent UTI -lives alone , -PT/OT eval -social service consulted for discharge planning for safe discharge -Cleared now HX OF AFLUTTER ON COUMADIN : -follows with Dr Castro -EKG shows sinus tach -cont on Coumadin ; INR 1.7 -monitor daily PT/INR -no indication for bridge therapy -INR 2.9 today FIBROMYALGIA : cont tramadol -her home meds No acute issue CHRONIC LOWER EXT SWELLING : On Lasix /K supplement no lower ext edema noted FULL CODE DVT PROPHYLAXIS ON COUMADIN DISPOSITION : expected to be discharged home when medically stable Pt/OT eval prior to discharge home Medicine follow up with Dr Russ Felipe Discussed with the Son in detailed Likely to be discharged today Total time spent on discharge = 35 minutes This includes examination of the patient, discharge planning, medication reconciliation, and communication with other providers. Discharge Instructions Date of Service Jun 11, 2017. Admission Reason for Admission: Copd, Hypoxia Discharge Discharge Diagnosis / Problem: Acute on Chronic Respiratory failure Discharge Goals Goal(s): Prevent Disease Progression Activity Recommendations Activity Limitations: resume your previous activity . Instructions / Follow-Up Instructions / Follow-Up Dr Moon on 06/15/17 at 10:45 AM and [place] (Pulmonary ) on Sunday , 06/19/17 at 3:15 PM.Continue to follow up with the Coagulation clinic Current Hospital Diet Patient's current hospital diet: AHA Diet (Heart Healthy) Discharge Diet Recommended Diet: AHA Diet (Heart Healthy) Fluid Restriction: 1500 ml (6 cups) Pending Studies Studies pending at discharge: no Medical Emergencies . Who to Call and When: Medical Emergencies: If at any time you feel your situation is an emergency, please call 911 immediately. . Non-Emergent Contact Non-Emergency issues call your: Primary Care Provider . Past History Medical & Surgical History: (1) Respiratory failure, [id number] (2) Fall (3) Closed fracture of left proximal humerus (4) Hypoxia (5) COPD with acute exacerbation (6) Hypertension (7) Dyslipidemia (8) Fibromyalgia (9) Osteoporosis (10) Status post appendectomy (11) Status post hysterectomy (12) Status post repair of ventral hernia (13) Hx of cataract surgery (14) S/P Mohs surgery for basal cell carcinoma (15) History of cyst removal left breast . "Provider Documentation" section prepared by Max Hallman. . VTE Core Measure Inpt VTE Proph given/why not?: Unfractionated heparin SQ <Electronically signed by Max Hallman M.D.> Signed: 06/11/17 4567 Additional Copies To Russ Moon M.D.
== END 2017-06-11 20:23 | disposition home health service (06) | DRG 190 ==
LOC: C.EDB 00:17 → C.2E 02:15 → ENRESERV 02:23
PROVIDERS: ADMIT Hospitalist; ATTEND Internal Medicine
DX: J44.1 Chronic obstructive pulmonary disease with (acute) exacerbation (principal); J96.21 Acute and chronic respiratory failure with hypoxia; J96.22 Acute and chronic respiratory failure with hypercapnia; G93.41 Metabolic encephalopathy; J18.9 Pneumonia, unspecified organism; N39.0 Urinary tract infection, site not specified; I48.92 Unspecified atrial flutter; I50.32 Chronic diastolic (congestive) heart failure; J44.0 Chronic obstructive pulmonary disease with (acute) lower respiratory infection; B96.20 Unspecified Escherichia coli [E. coli] as the cause of diseases classified elsewhere; Z91.19 Patient's noncompliance with other medical treatment and regimen; M79.7 Fibromyalgia; I11.0 Hypertensive heart disease with heart failure; K21.9 Gastro-esophageal reflux disease without esophagitis; Z79.899 Other long term (current) drug therapy; Z79.01 Long term (current) use of anticoagulants; Z79.52 Long term (current) use of systemic steroids; Z99.81 Dependence on supplemental oxygen; Z85.828 Personal history of other malignant neoplasm of skin; Z87.891 Personal history of nicotine dependence

== ENCOUNTER 2017-07-05 14:44 | Inpatient (IN) | payer OTHER ==
[~2017-07-05] VITALS: Ht 157.5 cm; Wt 78.3 kg
[~2017-07-05 14:44] MED LIST changes: +CMD5 PO; +DICL1GEL12 TD; +FURO-85 PO; -LSN20 PO; +OXGN; +POTA10TA PO; +PRD10 PO; +PRLSR20 PO; +ROFL1TAB5 PO; -VLT50 PO
[2017-07-05] MEDS ORDERED: SODIUM CHLORIDE 0.9% 500ML 500 ML IV STA (16:00)
--- NOTE | 2017-07-05 16:21 | EMERGENCY ROOM VISIT NOTE ---
History Report prepared by Aicha: Bassam Cornejo Under the Supervision of: Dr. Jessica Davis M.D. First contact with patient: 15:53 Chief Complaint: GI ASSESSMENT Stated Complaint: BLOOD CLOTS IN BOWELS History of Present Illness The patient is a 71 year old female who presents to the Emergency Room with complaints of abdominal pain that began 2 days ago. She rates her pain a 7/10 in severity. She has a past medical history of atrial flutter. She was on Warfarin in the past, but she was taken off of it a couple of weeks ago. Along with her abdominal pain, she has been having nausea and melena with her bowel movements. She notes that she intermittently passed blood clots as well. She states that she is having a "fluttering" sensation in her bowel. She states that she is on Prednisone currently. She denies any shortness of breath or chest pain. Source of History: patient Onset: 2 days ago Position: abdomen Symptom Intensity: 7/10 Quality: ache Timing: constant Associated Symptoms: + nausea, + melena, No chest pain, No SOB Review of Systems See HPI for pertinent positives & negatives. A total of 10 systems reviewed and were otherwise negative. Past Medical & Surgical Medical Problems: (1) BCC (basal cell carcinoma of skin) (2) COPD (chronic obstructive pulmonary disease) (3) Dyslipidemia (4) Fibromyalgia (5) GERD (gastroesophageal reflux disease) (6) GI bleed (7) Hypertension (8) Hypoxia (9) Osteoporosis (10) Reduced ejection fraction concurrent with and due to chronic heart failure (11) Respiratory failure, [id number] Surgical Problems: (1) History of cyst removal left breast (2) Hx of cataract surgery (3) S/P Mohs surgery for basal cell carcinoma (4) Status post appendectomy (5) Status post hysterectomy (6) Status post repair of ventral hernia Family History Cancer Social History Smoking Status: Former Smoker Smokeless Tobacco Use: No Alcohol Use: none Drug Use: none Marital Status: single Housing Status: lives alone Occupation Status: retired Current/Historical Medications Scheduled Budesonide/Formoterol Fumarate (Symbicort 160/4.5 Inhaler), 2 PUFFS INH BID Diclofenac Sodium (Topical) (Voltaren 1% Top Gel), 1 APPLN TD BID Furosemide (Lasix), 20 MG PO DAILY Home O2 Therapy (Oxygen), 2 LITERS NA PRN Losartan Potassium (Losartan Potassium), 25 MG PO QPM Metoprolol Succinate (Toprol Xl), 25 MG PO DAILY Omeprazole (Prilosec), 20 MG PO QAM Potassium Chloride (K-Tabs), 10 MEQ PO DAILY Tiotropium [place] (Spiriva Handihaler), 1 PUFF INH DAILY Scheduled PRN Albuterol Hfa (Ventolin Hfa), 2 PUFFS INH Q4H PRN for SOB/Wheezing Ipratropium-Albuterol (Duoneb), 1 TREATMENT INH Q4H PRN for SOB/Wheezing Tramadol HCl (Tramadol HCl), 50 MG PO TID PRN for Pain Allergies Coded Allergies: Duloxetine (Verified Allergy, Intermediate, RASH, 07/05/17) CI Pigment Blue 63 (Verified Allergy, Unknown, RASH, 07/05/17) Naproxen (Verified Adverse Reaction, Mild, GI SYMPTOMS, 07/05/17) Physical Exam Vital Signs Date Time Temp Pulse Resp B/P (MAP) Pulse Ox O2 Delivery O2 Flow Rate FiO2 07/05/17 18:21 98 22 132/92 98 Nasal Cannula 2.0 07/05/17 17:38 105 24 133/81 98 Nasal Cannula 2.0 07/05/17 16:33 94 Nasal Cannula 2.0 07/05/17 16:33 103 23 108/82 94 Nasal Cannula 2.0 07/05/17 16:30 104 07/05/17 14:57 37.0 123 18 158/105 97 Room Air Physical Exam Vital signs reviewed. General: Chronically ill appearing elderly female, in no significant distress. Borderline hypoxic on room air. HEENT: No scleral icterus, PERRLA, neck supple. Atraumatic. Cardiovascular: Regular rate and rhythm, no extra sounds. Pulmonary: Clear to auscultation bilaterally, normal work of breathing. Abdomen: Soft, no specific abdominal tenderness, nondistended, positive bowel sounds. Rectal: Melanotic guaiac positive stools. Normal mucosa. Musculoskeletal: Atraumatic, no peripheral edema. Neurologic: Patient awake alert and oriented x 3 Skin: Warm, dry, no rash Medical Decision & Procedures Laboratory Results Test 07/05/17 16:16 07/05/17 16:27 07/05/17 17:02 Immature Granulocyte % (Auto) 0.1 % White Blood Count 7.09 K/uL (4.8-10.8) Red Blood Count 4.96 M/uL (4.2-5.4) Hemoglobin 13.3 g/dL (12.0-16.0) Hematocrit 44.5 % (37-47) Mean Corpuscular Volume 89.7 fL (80-100) Mean Corpuscular Hemoglobin 26.8 pg (25-34) Mean Corpuscular Hemoglobin Concent 29.9 g/dl (32-36) Platelet Count 230 K/uL (130-400) Mean Platelet Volume 11.5 fL (7.4-10.4) Neutrophils (%) (Auto) 68.5 % Lymphocytes (%) (Auto) 18.2 % Monocytes (%) (Auto) 8.5 % Eosinophils (%) (Auto) 4.4 % Basophils (%) (Auto) 0.3 % Neutrophils # (Auto) 4.86 K/uL (1.4-6.5) Lymphocytes # (Auto) 1.29 K/uL (1.2-3.4) Monocytes # (Auto) 0.60 K/uL (0.11-0.59) Eosinophils # (Auto) 0.31 K/uL (0-0.5) Basophils # (Auto) 0.02 K/uL (0-0.2) Immature Granulocyte # (Auto) 0.01 K/uL (0.00-0.02) Prothrombin Time 10.7 SECONDS (9.0-12.0) Prothromb Time International Ratio 1.0 (0.9-1.1) Activated Partial Thromboplast Time 25.1 SECONDS (21.0-31.0) Partial Thromboplastin Ratio 1.0 Total Bilirubin 0.8 mg/dl (0.2-1) Direct Bilirubin 0.2 mg/dl (0-0.2) Aspartate Amino Transf (AST/SGOT) 17 U/L (15-37) Alanine Aminotransferase (ALT/SGPT) 21 U/L (12-78) Alkaline Phosphatase 62 U/L (45-117) Total Protein 6.5 gm/dl (6.4-8.2) Albumin 3.4 gm/dl (3.4-5.0) Lipase 95 U/L (73-393) Bedside Hemoglobin 14.3 g/dl (12.0-16.0) Bedside Hematocrit 42 % (37-47) Bedside Sodium 141 mEq/L (135-144) Bedside Potassium 3.9 mEq/L (3.3-5.0) Bedside Chloride 97 mEq/L (101-112) Bedside Total CO2 35 mEq/l (24-31) Bedside Blood Urea Nitrogen 29 mg/dl (7-18) Bedside Creatinine 0.7 mg/dl (0.6-1.3) Bedside Glucose (other) 111 mg/dl (70-99) Bedside Ionized Calcium ([place]) 1.16 mmol/l (1.12-1.32) Urine Color YELLOW Urine Appearance CLEAR (CLEAR) Urine pH 7.5 (4.5-7.5) Urine Specific [place] 1.025 (1.000-1.030) Urine Protein NEG (NEG) Urine Glucose (UA) NEG (NEG) Urine Ketones TRACE (NEG) Urine Occult Blood NEG (NEG) Urine Nitrite NEG (NEG) Urine Bilirubin NEG (NEG) Urine Urobilinogen NEG (NEG) Urine Leukocyte Esterase TRACE (NEG) Urine WBC (Auto) 1-5 /hpf (0-5) Urine RBC (Auto) 10-30 /hpf (0-4) Urine Hyaline Casts (Auto) 1-5 /lpf (0-5) Urine Epithelial Cells (Auto) >30 /lpf (0-5) Urine Bacteria (Auto) NEG (NEG) Laboratory results per my review. Medications Administered Medications (Trade) Dose Ordered Sig/Racheal Route Start Time Stop Time Status Last Admin Dose Admin Sodium Chloride 500 ml @ 999 mls/hr Q31M STAT IV 07/05/17 16:00 07/05/17 16:30 DC 07/05/17 16:36 999 MLS/HR Pantoprazole Sodium 80 mg/ Dextrose 120 ml @ 400 mls/hr NOW IV 07/05/17 16:30 07/05/17 19:00 DC 07/05/17 18:21 400 MLS/HR ECG Indication: abdominal pain Rate (beats per minute): 99 Rhythm: sinus rhythm Findings: PVC, no acute ischemic change, other (Previous anterior infarct, t- wave abnormalities inferiorly and laterally) ED Course 1553: Past medical records reviewed. The patient was evaluated in room C4. A complete history and physical examination was performed. 1600: Ordered Sodium Chloride 500 ml @ 999 mls/hr IV 1630: Ordered Pantoprazole Sodium 80 mg/Dextrose 120 ml @ 400 mls/hr IV 1808: Upon reevaluation, the patient is resting comfortably. I discussed laboratory and radiographic results with her. She verbalized agreement of the treatment plan. I spoke with Tina Elmore [facility]. The patient will be evaluated for further management and care. Medical Decision Differential diagnosis: Etiologies such as diverticulosis, AVM, coagulopathy, colitis, inflammatory bowel disease, malignancy, Marifer-Ferrari tear, esophagitis, peptic ulcer disease , variceal bleed, gastritis, epistaxis, fissure, hemorrhoids, as well as others were entertained. This pt was evaluated and appeared to be in no distress. PE is c/w upper GI bleed. IV protonix bolus was given. Pt was type and screened. H/H is stable at 13.3/44.5. Pt was informed fo the findings and d/w the hospitalist service for further management. Pt is aware of the plan and agrees. Medication Reconcilliation Current Medication List: was personally reviewed by me Blood Pressure Screening Patient's blood pressure: Normal blood pressure Blood pressure disposition: Did not require urgent referral Consults Time Called: 180 Consulting Physician: Tina Elmore PA-C - [facility] Returned Call: [phone] I reviewed the patient's case with her. She will evaluate the patient for further management. Impression Primary Impression: Upper GI bleed Scribe Attestation The scribe's documentation has been prepared under my direction and personally reviewed by me in its entirety. I confirm that the note above accurately reflects all work, treatment, procedures, and medical decision making performed by me. Departure Information Dispostion Being Evaluated By Hospitalist Prescriptions Losartan Potassium (Losartan Potassium) 25 Mg Tab 25 MG PO QPM for 30 Days, #30 TAB Prov: Max Hallman M.D. 07/07/17 Referrals Russ Moon M.D. (PCP) Patient Instructions My [facility]
[2017-07-05] MEDS ORDERED: PANTOprazole INJ 80 MG in DEXTROSE 5% 100ML 100 ML IV SCH (16:30)
[2017-07-05 16:31] LABS: BASO % 0.3 %; BASO ABS # 0.02 K/uL (0-0.2); COMPLETE YES; EOS % 4.4 %; HEMATOCRIT 44.5 % (37-47); IG% 0.1 %; LYMPH % 18.2 %; LYMPH ABS # 1.29 K/uL (1.2-3.4); MEAN CELL VOLUME 89.7 fL (80-100); MEAN CORPUSCULAR HEMOGLOBIN 26.8 pg (25-34); MEAN CORPUSCULAR HGB CONC 29.9 g/dl (32-36); MEAN PLATELET VOLUME 11.5 fL (7.4-10.4); MONO % 8.5 %; NEUT % 68.5 %; PLATELET COUNT 230 K/uL (130-400); RED BLOOD COUNT 4.96 M/uL (4.2-5.4); WHITE BLOOD COUNT 7.09 K/uL (4.8-10.8)
[2017-07-05 16:38] LABS: ISTAT CREATININE 0.7 mg/dl (0.6-1.3); ISTAT HEMOGLOBIN 14.3 g/dl (12.0-16.0); ISTAT IONIZED CALCIUM 1.16 mmol/l (1.12-1.32)
[2017-07-05 16:41] LABS: PROTHROMBIN TIME (PATIENT) 10.7 SECONDS (9.0-12.0)
[2017-07-05 16:54] LABS: BUN/CREATININE RATIO 40.1 (10-20); CALCIUM 8.8 mg/dl (8.5-10.1); CREATININE 0.71 mg/dl (0.60-1.20); MAGNESIUM 2.2 mg/dl (1.8-2.4)
[2017-07-05] MEDS ORDERED: DICL50TA3 PO (17:16)
[2017-07-05] MEDS ORDERED: PRED10TA PO (17:17)
[2017-07-05 17:25] LABS: URINE APPEARANCE CLEAR (CLEAR); URINE BILIRUBIN NEG (NEG); URINE COLOR YELLOW; URINE EPITHELIAL CELL AUTO >30 /lpf (0-5); URINE NITRITE NEG (NEG); URINE PH 7.5 (4.5-7.5); URINE SPECIFIC GRAVITY 1.025 (1.000-1.030); UROBILINOGEN NEG (NEG); ZZUR CULT IF INDIC CLEAN CATCH NO
[2017-07-05 17:29] LABS: MANUAL MICROSCOPIC REQUIRED? NO; REVIEW REQ? NO
[2017-07-05] MEDS ORDERED: ONDANSETRON INJ 2 MG/ML 2 ML VIAL IV PRN (19:15)
[2017-07-05] MEDS ORDERED: ACETAMINOPHEN 325 MG TAB PO PRN (19:15)
[2017-07-05] MEDS ORDERED: ALBUTEROL HFA 8 GM INHALER INH PRN (19:30)
[2017-07-05] MEDS ORDERED: ALBUT/IPRATROP 3MG/0.5MG NEB 3 ML VIAL INH PRN (19:30)
--- NOTE | 2017-07-05 19:40 | DIAGNOSTIC IMAGING REPORT ---
ADDENDUM The impression should read as follows: 1. Minimal ill-defined bibasilar opacities likely scarring or atelectasis. NO new focal infiltrate. 2. Apparent decreased cardiomegaly. Electronically signed by: Russ Nieves M.D. 07/05/2017 8:03 PM Dictated Date/Time: 07/05/2017 8:03 PM ORIGINAL REPORT CHEST ONE VIEW PORTABLE CLINICAL HISTORY: 71 years-old Female presenting with hypoxia in setting of COPD an low EF, no reported SOB. TECHNIQUE: Portable upright AP view of the chest was obtained. COMPARISON: 06/07/2017. FINDINGS: Atherosclerosis of the aortic arch. Decreased prominence of the cardiac silhouette. Minimal bibasilar ill-defined opacities, not significant changed from prior. No new focal infiltrate. No pleural effusion or pneumothorax. Chronic deformity of the left humeral neck suggests prior fracture. Upper abdomen normal. IMPRESSION: 1. Minimal ill-defined bibasilar opacities likely scarring or atelectasis. A new focal infiltrate. 2. Apparent decreased cardiomegaly. Electronically signed by: Russ Nieves M.D. 07/05/2017 7:39 PM Dictated Date/Time: 07/05/2017 7:37 PM
--- NOTE | 2017-07-05 19:56 | History and Physical ---
History & Physical Date & Time of Service: Jul 05, 2017 at 19:26 Chief Complaint: Blood Clots In Bowels Primary Care Physician: Russ Moon M.D. History of Present Illness Source: patient, clinic records, hospital records 71 yo F with COPD who presents with acute GI bleeding over the past 3 days that is associated with epigastric pain. She reports maroon-colored dark stools and clots beginning 3 days ago. She states that one month ago she had severe abdominal pain for several hours that was much worse than now without any bleeding; this resolved spontaneously. She denies any lightheadedness, shortness of breath, chest pain, headache, fevers, chills, nausea, vomiting or diarrhea. She has chronic constipation with pellet-sized BMs for the past year. She was recently hospitalized for shortness of breath and was treated for a COPD exacerbation. She was thought to have atrial flutter and was put on coumadin at that time, which was subsequently stopped on further review of the rhythm per EP who labeled it sinus tachycardia. She has been off coumadin since around 06/15 and has a normal INR. She does take twice daily Diclofenac for fibromyalgia, but denies other NSAIDs or blood thinners. Of note, she recently had an echocardiogram revealing and EF 20-25% which is new since December 2015 (EF 60-65%). She reports no change in shortness of breath on exertion and states she can still walk the grocery store aisles without stopping just like she used to. She has always slept up on pillows because she likes them but states that now she has to because she is short of breath laying down at night. She denies any weight gain or cough. She has not had any follow-up as outpatient since the echo was completed, but was supposed to see someone from Cardiology in the office today, of course missing her appointment as she is here. I talked with Dr. Collins who will evaluate her during her stay. In the ER she has some mild tachycardia but is otherwise looking well and appears stable. Past Medical/Surgical History Medical Problems: (1) BCC (basal cell carcinoma of skin) Permanent Comment: s/p MOHS surgery Status: Chronic (2) COPD (chronic obstructive pulmonary disease) Permanent Comment: severity to be determined Status: Chronic (3) Dyslipidemia Status: Chronic (4) Fibromyalgia Status: Chronic (5) GERD (gastroesophageal reflux disease) Status: Chronic (6) Hypertension Status: Chronic (7) Osteoporosis Status: Chronic (8) Reduced ejection fraction concurrent with and due to chronic heart failure Status: Chronic Surgical Problems: (1) History of cyst removal left breast Status: Chronic (2) Hx of cataract surgery Status: Chronic (3) S/P Mohs surgery for basal cell carcinoma Status: Chronic (4) Status post appendectomy Status: Chronic (5) Status post hysterectomy Status: Chronic (6) Status post repair of ventral hernia Status: Chronic Family History FH: prostate cancer FATHER Social History Smoking Status: Former Smoker (quit 2003, lifelong smoker) Smokeless Tobacco Use: No Alcohol Use: occasionally Drug Use: none Marital Status: single Housing status: lives alone Occupational Status: retired Immunizations History of Influenza Vaccine: Yes Influenza Vaccine Date: Aug 24, 2015 History of Tetanus Vaccine?: Yes Tetanus Immunization Date: Jan 20, 2014 History of Pneumococcal: Yes Pneumococcal Date: Dec 13, 2014 History of Hepatitis B Vaccine: No Multi-Drug Resistant Organisms History of MDRO: Yes Type of MDRO: MRSA Allergies Coded Allergies: Duloxetine (Verified Allergy, Intermediate, RASH, 07/05/17) CI Pigment Blue 63 (Verified Allergy, Unknown, RASH, 07/05/17) Naproxen (Verified Adverse Reaction, Mild, GI SYMPTOMS, 07/05/17) Home Medications Scheduled Budesonide/Formoterol Fumarate (Symbicort 160/4.5 Inhaler), 2 PUFFS INH BID Diclofenac (Voltaren), 50 MG PO BID Diclofenac Sodium (Topical) (Voltaren 1% Top Gel), 1 APPLN TD BID Furosemide (Lasix), 20 MG PO DAILY Home O2 Therapy (Oxygen), 2 LITERS NA PRN Metoprolol Succinate (Toprol Xl), 12.5 MG PO DAILY Omeprazole (Prilosec), 20 MG PO QAM Potassium Chloride (K-Tabs), 10 MEQ PO DAILY Tiotropium [place] (Spiriva Handihaler), 1 PUFF INH DAILY Scheduled PRN Albuterol Hfa (Ventolin Hfa), 2 PUFFS INH Q4H PRN for SOB/Wheezing Ipratropium-Albuterol (Duoneb), 1 TREATMENT INH Q4H PRN for SOB/Wheezing Tramadol HCl (Tramadol HCl), 50 MG PO TID PRN for Pain Review of Systems At least ten systems reviewed and negative except as indicated in HPI. Physical Exam Vital Signs Date Time Temp Pulse Resp B/P (MAP) Pulse Ox O2 Delivery O2 Flow Rate FiO2 07/05/17 18:21 98 22 132/92 98 Nasal Cannula 2.0 07/05/17 17:38 105 24 133/81 98 Nasal Cannula 2.0 07/05/17 16:33 94 Nasal Cannula 2.0 07/05/17 16:33 103 23 108/82 94 Nasal Cannula 2.0 07/05/17 16:30 104 07/05/17 14:57 37.0 123 18 158/105 97 Room Air General Appearance: WD/WN, no apparent distress Head: normocephalic, atraumatic Eyes: normal inspection, PERRL, sclerae normal ENT: hearing grossly normal, pharynx normal Neck: supple, no adenopathy, trachea midline Respiratory/Chest: lungs clear, normal breath sounds, no respiratory distress, + pertinent finding (98% on 2L via nasal canula, no tachypnea or conversational dyspnea. ) Cardiovascular: regular rate, rhythm, no edema, no JVD, no murmur, normal peripheral pulses Abdomen/GI: normal bowel sounds, non tender, soft, + fecal occult blood, + pertinent finding (per ER physician-melanotic guaiac positive stool) Back: normal inspection, no CVA tenderness Extremities/Musculoskelatal: normal inspection, no calf tenderness, no pedal edema Neurologic/Psych: nurses superintendent II-XII nml as tested, no motor/sensory deficits, alert, normal mood/affect, oriented x 3 Skin: normal color, warm/dry, no rash Diagnostics Laboratory Results 07/05/17 16:16 Red Blood Count 4.96, Mean Corpuscular Volume 89.7, Mean Corpuscular Hemoglobin 26.8, Mean Corpuscular Hemoglobin Concent 29.9, Mean Platelet Volume 11.5, Neutrophils (%) (Auto) 68.5, Lymphocytes (%) (Auto) 18.2, Monocytes (%) (Auto) 8.5, Eosinophils (%) (Auto) 4.4, Basophils (%) (Auto) 0.3, Neutrophils # (Auto) 4.86, Lymphocytes # (Auto) 1.29, Monocytes # (Auto) 0.60, Eosinophils # (Auto) 0.31, Basophils # (Auto) 0.02 07/05/17 16:16 Test 07/05/17 16:16 07/05/17 16:27 07/05/17 17:02 White Blood Count 7.09 K/uL (4.8-10.8) Red Blood Count 4.96 M/uL (4.2-5.4) Hemoglobin 13.3 g/dL (12.0-16.0) Hematocrit 44.5 % (37-47) Mean Corpuscular Volume 89.7 fL (80-100) Mean Corpuscular Hemoglobin 26.8 pg (25-34) Mean Corpuscular Hemoglobin Concent 29.9 g/dl (32-36) Platelet Count 230 K/uL (130-400) Mean Platelet Volume 11.5 fL (7.4-10.4) Neutrophils (%) (Auto) 68.5 % Lymphocytes (%) (Auto) 18.2 % Monocytes (%) (Auto) 8.5 % Eosinophils (%) (Auto) 4.4 % Basophils (%) (Auto) 0.3 % Neutrophils # (Auto) 4.86 K/uL (1.4-6.5) Lymphocytes # (Auto) 1.29 K/uL (1.2-3.4) Monocytes # (Auto) 0.60 K/uL (0.11-0.59) Eosinophils # (Auto) 0.31 K/uL (0-0.5) Basophils # (Auto) 0.02 K/uL (0-0.2) RDW Standard Deviation 50.2 fL (36.4-46.3) RDW Coefficient of Variation 15.6 % (11.5-14.5) Immature Granulocyte % (Auto) 0.1 % Immature Granulocyte # (Auto) 0.01 K/uL (0.00-0.02) Prothrombin Time 10.7 SECONDS (9.0-12.0) Prothromb Time International Ratio 1.0 (0.9-1.1) Activated Partial Thromboplast Time 25.1 SECONDS (21.0-31.0) Partial Thromboplastin Ratio 1.0 Est Creatinine Clear Calc Drug Dose 68.0 ml/min Estimated GFR () 97.9 Estimated GFR (Non- 84.5 BUN/Creatinine Ratio 40.1 (10-20) Calcium Level 8.8 mg/dl (8.5-10.1) Magnesium Level 2.2 mg/dl (1.8-2.4) Total Bilirubin 0.8 mg/dl (0.2-1) Direct Bilirubin 0.2 mg/dl (0-0.2) Aspartate Amino Transf (AST/SGOT) 17 U/L (15-37) Alanine Aminotransferase (ALT/SGPT) 21 U/L (12-78) Alkaline Phosphatase 62 U/L (45-117) Total Protein 6.5 gm/dl (6.4-8.2) Albumin 3.4 gm/dl (3.4-5.0) Lipase 95 U/L (73-393) Bedside Hemoglobin 14.3 g/dl (12.0-16.0) Bedside Hematocrit 42 % (37-47) Bedside Sodium 141 mEq/L (135-144) Bedside Potassium 3.9 mEq/L (3.3-5.0) Bedside Chloride 97 mEq/L (101-112) Bedside Total CO2 35 mEq/l (24-31) Anion Gap 14.0 mmol/L (16-25) Bedside Blood Urea Nitrogen 29 mg/dl (7-18) Bedside Creatinine 0.7 mg/dl (0.6-1.3) Bedside Glucose (other) 111 mg/dl (70-99) Bedside Ionized Calcium ([place]) 1.16 mmol/l (1.12-1.32) Urine Color YELLOW Urine Appearance CLEAR (CLEAR) Urine pH 7.5 (4.5-7.5) Urine Specific [place] 1.025 (1.000-1.030) Urine Protein NEG (NEG) Urine Glucose (UA) NEG (NEG) Urine Ketones TRACE (NEG) Urine Occult Blood NEG (NEG) Urine Nitrite NEG (NEG) Urine Bilirubin NEG (NEG) Urine Urobilinogen NEG (NEG) Urine Leukocyte Esterase TRACE (NEG) Urine WBC (Auto) 1-5 /hpf (0-5) Urine RBC (Auto) 10-30 /hpf (0-4) Urine Hyaline Casts (Auto) 1-5 /lpf (0-5) Urine Epithelial Cells (Auto) >30 /lpf (0-5) Urine Bacteria (Auto) NEG (NEG) Results Past 24 Hours Test 07/05/17 16:16 07/05/17 16:27 07/05/17 17:02 Range/Units White Blood Count 7.09 4.8-10.8 K/uL Red Blood Count 4.96 4.2-5.4 M/uL Hemoglobin 13.3 12.0-16.0 g/dL Hematocrit 44.5 37-47 % Mean Corpuscular Volume 89.7 80-100 fL Mean Corpuscular Hemoglobin 26.8 25-34 pg Mean Corpuscular Hemoglobin Concent 29.9 32-36 g/dl Platelet Count 230 130-400 K/uL Mean Platelet Volume 11.5 7.4-10.4 fL Neutrophils (%) (Auto) 68.5 % Lymphocytes (%) (Auto) 18.2 % Monocytes (%) (Auto) 8.5 % Eosinophils (%) (Auto) 4.4 % Basophils (%) (Auto) 0.3 % Neutrophils # (Auto) 4.86 1.4-6.5 K/uL Lymphocytes # (Auto) 1.29 1.2-3.4 K/uL Monocytes # (Auto) 0.60 0.11-0.59 K/uL Eosinophils # (Auto) 0.31 0-0.5 K/uL Basophils # (Auto) 0.02 0-0.2 K/uL RDW Standard Deviation 50.2 36.4-46.3 fL RDW Coefficient of Variation 15.6 11.5-14.5 % Immature Granulocyte % (Auto) 0.1 % Immature Granulocyte # (Auto) 0.01 0.00-0.02 K/uL Prothrombin Time 10.7 9.0-12.0 SECONDS Prothromb Time International Ratio 1.0 0.9-1.1 Activated Partial Thromboplast Time 25.1 21.0-31.0 SECONDS Partial Thromboplastin Ratio 1.0 Sodium Level 142 136-145 mmol/L Potassium Level 4.0 3.5-5.1 mmol/L Chloride Level 102 98-107 mmol/L Carbon Dioxide Level 35 21-32 mmol/L Anion Gap 5.0 14.0 16-25 mmol/L Blood Urea Nitrogen 28 7-18 mg/dl Creatinine 0.71 0.60-1.20 mg/dl Est Creatinine Clear Calc Drug Dose 68.0 ml/min Estimated GFR () 97.9 Estimated GFR (Non- 84.5 BUN/Creatinine Ratio 40.1 10-20 Random Glucose 109 70-99 mg/dl Calcium Level 8.8 8.5-10.1 mg/dl Magnesium Level 2.2 1.8-2.4 mg/dl Total Bilirubin 0.8 0.2-1 mg/dl Direct Bilirubin 0.2 0-0.2 mg/dl Aspartate Amino Transf (AST/SGOT) 17 15-37 U/L Alanine Aminotransferase (ALT/SGPT) 21 12-78 U/L Alkaline Phosphatase 62 45-117 U/L Total Protein 6.5 6.4-8.2 gm/dl Albumin 3.4 3.4-5.0 gm/dl Lipase 95 73-393 U/L Bedside Hemoglobin 14.3 12.0-16.0 g/dl Bedside Hematocrit 42 37-47 % Bedside Sodium 141 135-144 mEq/L Bedside Potassium 3.9 3.3-5.0 mEq/L Bedside Chloride 97 101-112 mEq/L Bedside Total CO2 35 24-31 mEq/l Bedside Blood Urea Nitrogen 29 7-18 mg/dl Bedside Creatinine 0.7 0.6-1.3 mg/dl Bedside Glucose (other) 111 70-99 mg/dl Bedside Ionized Calcium ([place]) 1.16 1.12-1.32 mmol/l Urine Color YELLOW Urine Appearance CLEAR CLEAR Urine pH 7.5 4.5-7.5 Urine Specific [place] 1.025 1.000-1.030 Urine Protein NEG NEG Urine Glucose (UA) NEG NEG Urine Ketones TRACE NEG Urine Occult Blood NEG NEG Urine Nitrite NEG NEG Urine Bilirubin NEG NEG Urine Urobilinogen NEG NEG Urine Leukocyte Esterase TRACE NEG Urine WBC (Auto) 1-5 0-5 /hpf Urine RBC (Auto) 10-30 0-4 /hpf Urine Hyaline Casts (Auto) 1-5 0-5 /lpf Urine Epithelial Cells (Auto) >30 0-5 /lpf Urine Bacteria (Auto) NEG NEG EKG SR99, No ST changes and no Q waves. Impression Assessment and Plan 71 yo F with low EF presents with acute GI bleed. 1. Hematochezia-likely UGIB with recent h/o NSAIDs, BUN up to 28 with a normal creatinine, and abdominal discomfort. No h/o GI bleed. Last colonoscopy was with one benign adenomatous polyp and one hyperplastic polyp removed. She had a h/o dysphagia 2/2 esophageal candidiasis which was treated with fluconazole. It appears she had a repeat EGD in Jul 2016 but these results are not available to me at this time. Will cont PPI drip (Protonix bolus was given in the ER already) and will continue cautious IVF w new low EF. GI consulted to see patient. Currently not anemic but will trend H/H overnight. Clears for now and NPO p MN. 2. Reduced ejection fraction-new onset but compensated without signs/symptoms of acute heart failure. Denies worsening SOB, is at baseline hypoxia and oxygen needs 2/2 COPD which is also stable. Based on recent TTE result and no follow-up with Cardiology prior to arrival today, they were consulted to follow her. 3. COPD-chronic, stable, no acute wheezing/coughing/no new infiltrate on CXR. Cont home inhalers/nebs 4. Fibromyalgia-takes Ultram and regular Diclofenac for this twice daily long- term. 5. HTN-controlled, on Toprol XL which was held in acute bleed. Furosemide also held. DVT proph-SCDs, chemoprophylaxis contraindicated in acute bleed FULL CODE per my conversation with her on admission. Dispo-to tele as a precaution with low EF. Myrna Rodriguez DO [facility] Level [facility] Care Telemetry Resuscitation Status FULL RESUSCITATION VTE Prophylaxis VTE Risk Assessment Done? Y/N: Yes Risk Level: Moderate Given or contraindicated: SCD's, Contraindicated
[2017-07-05] MEDS ORDERED: PANTOprazole INJ 40 MG in DEXTROSE 5% 100ML IV SCH (20:00)
[2017-07-05] MEDS ORDERED: METO1TAB31 PO (20:15)
[2017-07-05 20:17] VITALS: BP 137/67; PULSE 62; TEMP 36.5; O2SAT 100; Ht 157.5 cm; Wt 78.3 kg
[2017-07-05] MEDS: BUDESONIDE/FORMOTEROL FUMARATE 160/4.5 60 PUFFS/INHALER INH SCH (21:00)
[2017-07-05 21:10] VITALS: BP 115/71; PULSE 102
[2017-07-05 21:11] VITALS: BP_SYST 114; BP_SYST 129; BP_DIAS 71; BP_DIAS 72; PULSE 109; PULSE 61
[2017-07-05] MEDS: D5NSS + 20MEQ KCL 1,000 ML IV SCH (21:20)
[2017-07-05] MEDS: TRAMADOL HCL 50 MG TAB PO PRN (21:20)
[2017-07-05 23:14] VITALS: BP 129/69; PULSE 92; TEMP 36.8; O2SAT 97
[2017-07-05 23:23] LABS: HEMATOCRIT 40.1 % (37-47)
[2017-07-05 23:59] VITALS: BP 129/69; PULSE 92; TEMP 36.8; O2SAT 97
[2017-07-06] VITALS (10 sets, daily range): BP systolic 95–137; BP diastolic 63–82; PULSE 75–102; TEMP 36–36.7; O2SAT 91–99
[2017-07-06] MEDS: PANTOprazole INJ 40 MG in DEXTROSE 5% 100ML IV SCH ×5 (00:48→23:29)
[2017-07-06 06:12] LABS: HEMATOCRIT 38.9 % (37-47); MEAN CELL VOLUME 89.8 fL (80-100); MEAN CORPUSCULAR HEMOGLOBIN 27.7 pg (25-34); MEAN CORPUSCULAR HGB CONC 30.8 g/dl (32-36); MEAN PLATELET VOLUME 12.2 fL (7.4-10.4); PLATELET COUNT 148 K/uL (130-400); RED BLOOD COUNT 4.33 M/uL (4.2-5.4); WHITE BLOOD COUNT 5.48 K/uL (4.8-10.8)
[2017-07-06 06:43] LABS: BUN/CREATININE RATIO 34.3 (10-20); CALCIUM 8.3 mg/dl (8.5-10.1); CREATININE 0.53 mg/dl (0.60-1.20); POTASSIUM 4.1 mmol/L (3.5-5.1)
--- NOTE | 2017-07-06 08:29 | Gastrointestinal Consultation ---
Gastrointestinal Consultation Date of Consultation: Jul 06, 2017 Attending Physician: Michael Consulting Physician: Jocelyne Reason for Consultation: UGIB History of Present Illness Patient is a 71 year old female w/ history of COPD, GERD and others listed below who presents through the ED for evaluation of upper abdominal pain and rectal bleeding. Pt was seen and evaluated, chart reviewed. Pt tells me she was recently admitted and discharged in May for a COPD exacerbation and was discharged home on coumadin. She tells me she took this medication for a few weeks then Dr. Moon had stopped it. She tells me she noted a change in her stools about 3 days ago. There was associated pain, but she is unable to tell me which started first. She tells me in the beginning she was passing semi- formed stools with yazmin colored blood and clots. As her symptoms persisted, she was no longer passing any stool, and just dark blood w/ clots. Today, she tells me she is no longer having any abdominal pain. She specifically denies any epigastric pain, burning, regurgitation, nausea or vomiting. She tells me she past some dark colored blood a few hours ago, there were no clots. She does not recall any dark tarry stools. Today, no lightheadedness, dizziness, shortness of breath, chest pain. + NSAIDS BID Colonoscopy 2016: two 5mm polyps, internal/external hemorrhoids, diverticula EGD 2016: tsering esophagitis, otherwise WNL Past Medical/Surgical History Medical Problems: (1) COPD exacerbation Status: Acute (2) COPD with acute exacerbation Status: Acute (3) Hypercapnic respiratory failure Status: Acute (4) Hypoxemia Status: Acute (5) Hypoxia Status: Acute (6) Respiratory failure with hypoxia Status: Acute (7) Upper GI bleed Status: Acute Past Medical History: COPD, dyslipidemia, GERD, fibromyalgia, HTN, chf Past Surgical History: hysterectomy, hernia repair, EGD, Colonoscopy, MOHS for BCC, appendectomy Family History FH: prostate cancer FATHER Social History Smoking Status: Former Smoker Alcohol Use: none Drug Use: none Marital Status: single Housing Status: lives alone Occupation Status: retired Allergies Coded Allergies: Duloxetine (Verified Allergy, Intermediate, RASH, 07/05/17) CI Pigment Blue 63 (Verified Allergy, Unknown, RASH, 07/05/17) Naproxen (Verified Adverse Reaction, Mild, GI SYMPTOMS, 07/05/17) Current Medications Home Meds and Scripts Medications Dose Route/Sig Max Daily Dose Days Date Category Dose Instructions Toprol Xl (Metoprolol Succinate) 25 Mg Tab 12.5 Mg PO DAILY 07/05/17 Reported Voltaren (Diclofenac Sodium) 50 Mg Tabec 50 Mg PO BID 07/05/17 Reported Oxygen Gas 2 Liters NA PRN 30 06/11/17 Rx Continue as before.May need 3-4 liters on ambulation Voltaren 1% Top Gel (Diclofenac Sodium (Topical)) 1 % Gel 1 Appln TD BID 06/07/17 Reported Prilosec (Omeprazole) 20 Mg Capcr 20 Mg PO QAM 06/07/17 Reported K-Tabs (Potassium Chloride) 10 Meq Tab 10 Meq PO DAILY 06/07/17 Reported Lasix (Furosemide) 20 Mg Tab 20 Mg PO DAILY 06/07/17 Reported Symbicort 160/4.5 Inhaler (Budesonide/Formoterol Fumarate) 120 Puffs/ Aero 2 Puffs INH BID 10/05/16 Reported Ventolin Hfa (Albuterol) 200 Puffs/24252 Mcg Aers 2 Puffs INH Q4H PRN 10/05/16 Reported Spiriva Handihaler (Tiotropium [place]) 30 Puff/540 Mcg Aerp 1 Puff INH DAILY 10/05/16 Reported Tramadol HCl 50 Mg Tab 50 Mg PO TID PRN 10/05/16 Reported Duoneb (Ipratropium-Albuterol) 3 Ml Nebu 1 Treatment INH Q4H PRN 01/09/16 Reported Review of Systems Constitutional: No fever, No chills Respiratory: No cough, No shortness of breath Cardiac: No chest pain, No edema Abdomen: + pain, + diarrhea, + GI bleeding, No nausea, No vomiting, No constipation Physical Exam Date Time Temp Pulse Resp B/P (MAP) Pulse Ox O2 Delivery O2 Flow Rate FiO2 07/06/17 07:27 36.6 97 18 121/71 (88) 99 Nasal Cannula 2.0 07/06/17 04:00 98 Nasal Cannula 2.0 07/06/17 03:58 36.7 102 18 129/82 (98) 98 Nasal Cannula 2.0 07/05/17 23:59 36.8 92 18 129/69 (89) 97 Nasal Cannula 2.0 07/05/17 23:59 97 Nasal Cannula 2.0 07/05/17 23:14 36.8 92 18 129/69 (89) 97 Nasal Cannula 2.0 07/05/17 21:11 61 114/71 (85) 07/05/17 21:11 109 129/72 (91) 07/05/17 21:10 102 115/71 (86) 07/05/17 20:17 36.5 62 18 137/67 100 Nasal Cannula 2.0 07/05/17 18:21 98 22 132/92 98 Nasal Cannula 2.0 07/05/17 17:38 105 24 133/81 98 Nasal Cannula 2.0 07/05/17 16:33 94 Nasal Cannula 2.0 07/05/17 16:33 103 23 108/82 94 Nasal Cannula 2.0 07/05/17 16:30 104 07/05/17 14:57 37.0 123 18 158/105 97 Room Air General Appearance: no apparent distress Eyes: PERRL ENT: hearing grossly normal Neck: supple Laboratory Results Last 24 Hours Test 07/05/17 16:16 07/05/17 16:27 07/05/17 17:02 07/05/17 23:00 White Blood Count 7.09 K/uL Red Blood Count 4.96 M/uL Hemoglobin 13.3 g/dL 12.4 g/dL Hematocrit 44.5 % 40.1 % Mean Corpuscular Volume 89.7 fL Mean Corpuscular Hemoglobin 26.8 pg Mean Corpuscular Hemoglobin Concent 29.9 g/dl Platelet Count 230 K/uL Mean Platelet Volume 11.5 fL Neutrophils (%) (Auto) 68.5 % Lymphocytes (%) (Auto) 18.2 % Monocytes (%) (Auto) 8.5 % Eosinophils (%) (Auto) 4.4 % Basophils (%) (Auto) 0.3 % Neutrophils # (Auto) 4.86 K/uL Lymphocytes # (Auto) 1.29 K/uL Monocytes # (Auto) 0.60 K/uL Eosinophils # (Auto) 0.31 K/uL Basophils # (Auto) 0.02 K/uL RDW Standard Deviation 50.2 fL RDW Coefficient of Variation 15.6 % Immature Granulocyte % (Auto) 0.1 % Immature Granulocyte # (Auto) 0.01 K/uL Prothrombin Time 10.7 SECONDS Prothromb Time International Ratio 1.0 Activated Partial Thromboplast Time 25.1 SECONDS Partial Thromboplastin Ratio 1.0 Sodium Level 142 mmol/L Potassium Level 4.0 mmol/L Chloride Level 102 mmol/L Carbon Dioxide Level 35 mmol/L Anion Gap 5.0 mmol/L 14.0 mmol/L Blood Urea Nitrogen 28 mg/dl Creatinine 0.71 mg/dl Est Creatinine Clear Calc Drug Dose 68.0 ml/min Estimated GFR () 97.9 Estimated GFR (Non- 84.5 BUN/Creatinine Ratio 40.1 Random Glucose 109 mg/dl Calcium Level 8.8 mg/dl Magnesium Level 2.2 mg/dl Total Bilirubin 0.8 mg/dl Direct Bilirubin 0.2 mg/dl Aspartate Amino Transf (AST/SGOT) 17 U/L Alanine Aminotransferase (ALT/SGPT) 21 U/L Alkaline Phosphatase 62 U/L Total Protein 6.5 gm/dl Albumin 3.4 gm/dl Lipase 95 U/L Bedside Hemoglobin 14.3 g/dl Bedside Hematocrit 42 % Bedside Sodium 141 mEq/L Bedside Potassium 3.9 mEq/L Bedside Chloride 97 mEq/L Bedside Total CO2 35 mEq/l Bedside Blood Urea Nitrogen 29 mg/dl Bedside Creatinine 0.7 mg/dl Bedside Glucose (other) 111 mg/dl Bedside Ionized Calcium ([place]) 1.16 mmol/l Urine Color YELLOW Urine Appearance CLEAR Urine pH 7.5 Urine Specific [place] 1.025 Urine Protein NEG Urine Glucose (UA) NEG Urine Ketones TRACE Urine Occult Blood NEG Urine Nitrite NEG Urine Bilirubin NEG Urine Urobilinogen NEG Urine Leukocyte Esterase TRACE Urine WBC (Auto) 1-5 /hpf Urine RBC (Auto) 10-30 /hpf Urine Hyaline Casts (Auto) 1-5 /lpf Urine Epithelial Cells (Auto) >30 /lpf Urine Bacteria (Auto) NEG Test 07/06/17 05:42 White Blood Count 5.48 K/uL Red Blood Count 4.33 M/uL Hemoglobin 12.0 g/dL Hematocrit 38.9 % Mean Corpuscular Volume 89.8 fL Mean Corpuscular Hemoglobin 27.7 pg Mean Corpuscular Hemoglobin Concent 30.8 g/dl RDW Standard Deviation 50.8 fL RDW Coefficient of Variation 15.5 % Platelet Count 148 K/uL Mean Platelet Volume 12.2 fL Sodium Level 141 mmol/L Potassium Level 4.1 mmol/L Chloride Level 103 mmol/L Carbon Dioxide Level 35 mmol/L Anion Gap 3.0 mmol/L Blood Urea Nitrogen 18 mg/dl Creatinine 0.53 mg/dl Est Creatinine Clear Calc Drug Dose 91.6 ml/min Estimated GFR () 109.2 Estimated GFR (Non- 94.2 BUN/Creatinine Ratio 34.3 Random Glucose 114 mg/dl Calcium Level 8.3 mg/dl Impression Patient is a 71 year old female with COPD and low EF (cardiology to evaluate during this examination) who was admitted with abdominal pain and rectal bleeding. Blood has been dark, yazmin with some clots. Abdominal pain, which is now resolved, was dull and constant without any associated symptoms. She uses NSAIDs BID and was recently on coumadin for a few weeks which was stopped on 06/15/17. Differentials infectious colitis vs ischemic colitis vs diverticular bleed vs hemorrhoidal bleed vs UGI bleed. Unfortunately, Ms. Ramos had clear liquids for breakfast this AM at 0800 - broth, jello and juice. Plan Trend H&H Monitor stools Transfuse as needed No anticoagulation Hold NSAIDs IV PPI BID NPO for possible EGD this afternoon - pt had clear liquids at 0800 Stool c.diff and stool culture [facility] to follow. ATTESTATION: I have performed a history and physical examination of this patient and reviewed the electronic record. Specifically on physical examination there is no abdominal tenderness. I have discussed the case with GENEVA Paige. The above note reflects my findings, conclusions, and recommendations. Ravinder Casanova MD
--- NOTE | 2017-07-06 09:07 | DIAGNOSTIC IMAGING REPORT ---
[facility] CLINICAL HISTORY: GI bleeding. Generalized abdominal pain. FINDINGS: An AP, portable, supine abdominal radiograph is obtained. No prior studies are available for comparison at the time of dictation. There is a nonobstructed abdominal bowel gas pattern. No abnormal abdominal calcifications are identified. An electronic device is partially imaged project over the right upper quadrant. The skeletal structures are osteopenic. The lumbosacral spine and bony pelvis are grossly intact. IMPRESSION: Nonobstructed abdominal bowel gas pattern. Electronically signed by: Nate Rabago M.D. 07/06/2017 9:05 AM Dictated Date/Time: 07/06/2017 9:05 AM
--- NOTE | 2017-07-06 09:07 | Clinical Documentation Query ---
[facility] CLINICAL DOCUMENTATION QUERY Patient is a 71 year old female admitted for evaluation and treatment of GI bleeding. H&P documentation included "she recently had an echocardiogram revealing and EF 20-25%" and " Reduced ejection fraction-new onset but compensated without signs/symptoms of acute heart failure. Denies worsening SOB, is at baseline hypoxia and oxygen needs 2/2 COPD". As appropriate, consider these diagnostic considerations as listed below. In your clinical opinion is this patient being managed for: ( + ) Chronic systolic CHF and chronic hypoxic respiratory failure ( ) Not Agree ( ) Other explanation of clinical findings (Please Explain) ( ) Unable to determine (Please Define) ( ) Need to Discuss The medical record reflects the following clinical findings, treatment, and risk factors. Clinical Indicators: As above Treatment: Lasix, supplemental O2, cardiology consultation, telemetry, I/O, daily weights, home inhalers/nebs Risk Factors: Age, COPD, HTN Please clarify and document your clinical opinion in the progress notes and discharge summary. Terms such as "probable", "suspected", "likely", "questionable", "possible", or "still to be ruled out" are acceptable. IF IN AGREEMENT, YOU MUST DOCUMENT ABOVE DIAGNOSTIC STATEMENT IN DAILY PROGRESS NOTES AND DISCHARGE SUMMARY. This document is not part of the patient's record. Thank You, Louie Vasquez, RN [phone]
[2017-07-06] MEDS: BUDESONIDE/FORMOTEROL FUMARATE 160/4.5 60 PUFFS/INHALER INH SCH ×2 (09:08→22:01)
[2017-07-06] MEDS: TIOTROPIUM BROMIDE 5 PUFF/90 MCG INH INH SCH (09:08)
[2017-07-06] MEDS: D5NSS + 20MEQ KCL 1,000 ML IV SCH (09:12)
--- NOTE | 2017-07-06 10:49 | Cardiology Consultation ---
Cardiology Consultation Date of Consultation: Jul 06, 2017 Requesting Physician: Michael Attending Food And Drug Research Scientist: Dennis (Byron Melchor PA-C) History of Present Illness Patient is a 71 year old female who is being seen at the request of Dr. Rodriguez. Reason for consultation is new onset low EF, asymptomatic. Patient presented to the [facility] ER on 07/05/2017 with a chief complaint of blood clots in her bowels x 3 days and intermittent epigastric discomfort. She takes diclofenac twice a day as an outpatient. She was recently prescribed Prednisone for a COPD exacerbation. She has been evaluated by GI during this hospitalizaiton and is scheduled to undergo EGD this afternoon. The patient's cardiac history includes concern for atrial flutter for which was prescribed Coumadin anticoagulation by her PCP. She was referred to Dr. Castro who evaluated the patient on 06/04/2017 and felt that her prior EKG revealed sinus tachycardia and not atrial flutter. At that time she was advised to continue anticoagulation as well as start furosemide 20 mg/day along with 10 mEq 's of potassium chloride. She was ordered a resting echocardiogram and close follow up. Unfortunately she failed to show for the echo as she was admitted with acute respiratory failure. Heart rates during her hospitalization were predominantly 100-120 bpm. EKG's during the hospitalization demonstrated sinus tachycardia. She was seen in follow-up by Malaika Vladimir on 06/15/2017 who reviewed all of her EKG's with Electrophysiology. All EKG's were felt to demonstrate sinus tachycardia and not atrial flutter. Coumadin was discontinued as the risks were felt to be greater than the benefit. She was advised to reschedule the echocardiogram. The echo transpired on 06/22/2017, demonstrating severely reduced left ventricular systolic dysfunction with an EF of 20-24%. Sinus tachycardia was noted during the study. The estimated pulmonary artery systolic pressure was 47mm Hg. The patient was prescribed Toprol XL 12.5 mg/day which she has been taking without difficulty. She denies history of MN, CAD, CHF, heart murmur, rheumatic fever, or scarlet fever. She denies chest pain or discomfort. On questioning she describes a chronic cough, bendopnea, exertional dyspnea (NYHA Functional Class II-III), and intermittent palpitations. No orthopnea, PND, or peripheral edema. She denies lightheadedness, dizziness, near syncope, or syncope. No current fevers, chills, or night sweats. No epistaxis, hemoptysis, or hematuria. (Byron Melchor PA-C) Past Medical/Surgical History Problem List: Persistent sinus tachycardia New onset systolic dysfunction (first observed in 06/2017). EF 20-25%. NYHA Class II-III. Narrow QRS duration. Etiology to be determined, possibly tachycardic induced. Severe oxygen-dependent COPD with recent exacerbation requiring hospitalization 06/07/2017 to 06/11/2017. Followed by Mr. Tien PA-C Hypoxemia. Utilizing supplemental oxygen at night and as needed during the day Pulmonary hypertension Cor pulmonale Hypertension Dyslipidemia Fibromyalgia GERD Esophageal candidiasis - 06/15/2016 Osteoporosis Diverticulosis Lumbar disc disease Cyst removal left breast Cataract surgery Basal cell carcinoma of skin S/P Mohs surgery Appendectomy Hysterectomy, 1971 Ventral hernia repair Colonoscopy with polypectomies in 2004 and x 2 in 08/2010. Carpal tunnel surgery on the right, 1999. (Byron Melchor PA-C) Family History Family History: Father with kidney cancer at 59. Mother with COPD and CHF at the age of 82. Maternal grandfather with colon cancer in his 70's. (Byron Melchor PA-C) FH: prostate cancer FATHER (Hira Collins,D.O.) Social History Social History: Reformed smoker. Quit in 2003 after smoking up to 2 ppd x 40 years. No smokeless tobacco use. No significant alcohol. Denies illegal drug use. . Two children. 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 (Byron Melchor PA-C) Review Of Systems General: No current fevers or chills. Head: Denies headache. Cardiovascular: Denies chest pain or chest discomfort. No near syncope or syncope. Pulmonary: See above. No prior evaluation for sleep apnea. Gastrointestinal: See above. Skin: No rash. Musculoskeletal: See above. Neurological: Denies history of TIA, CVA, or seizures Complete review of systems is as stated above, negative, or noncontributory. (Byron Melchor PA-C) Allergies Coded Allergies: Duloxetine (Verified Allergy, Intermediate, RASH, 07/05/17) CI Pigment Blue 63 (Verified Allergy, Unknown, RASH, 07/05/17) Naproxen (Verified Adverse Reaction, Mild, GI SYMPTOMS, 07/05/17) Medications Reported Home Medications Medications Dose Route/Sig Max Daily Dose Days Date Category Dose Instructions Toprol Xl (Metoprolol Succinate) 25 Mg Tab 12.5 Mg PO DAILY 07/05/17 Reported Voltaren (Diclofenac Sodium) 50 Mg Tabec 50 Mg PO BID 07/05/17 Reported Oxygen Gas 2 Liters NA PRN 30 06/11/17 Rx Continue as before.May need 3-4 liters on ambulation Voltaren 1% Top Gel (Diclofenac Sodium (Topical)) 1 % Gel 1 Appln TD BID 06/07/17 Reported Prilosec (Omeprazole) 20 Mg Capcr 20 Mg PO QAM 06/07/17 Reported K-Tabs (Potassium Chloride) 10 Meq Tab 10 Meq PO DAILY 06/07/17 Reported Lasix (Furosemide) 20 Mg Tab 20 Mg PO DAILY 06/07/17 Reported Symbicort 160/4.5 Inhaler (Budesonide/Formoterol Fumarate) 120 Puffs/ Aero 2 Puffs INH BID 10/05/16 Reported Ventolin Hfa (Albuterol) 200 Puffs/81339 Mcg Aers 2 Puffs INH Q4H PRN 10/05/16 Reported Spiriva Handihaler (Tiotropium [place]) 30 Puff/540 Mcg Aerp 1 Puff INH DAILY 10/05/16 Reported Tramadol HCl 50 Mg Tab 50 Mg PO TID PRN 10/05/16 Reported Duoneb (Ipratropium-Albuterol) 3 Ml Nebu 1 Treatment INH Q4H PRN 01/09/16 Reported (Byron Melchor PA-C) Physical Exam Vital Signs (Last 8hrs): Last 8 Hrs Date Time Temp Pulse Resp B/P (MAP) Pulse Ox O2 Delivery O2 Flow Rate FiO2 07/06/17 07:27 36.6 97 18 121/71 (88) 99 Nasal Cannula 2.0 07/06/17 04:00 98 Nasal Cannula 2.0 07/06/17 03:58 36.7 102 18 129/82 (98) 98 Nasal Cannula 2.0 General Appearance: Alert and Oriented x3. NAD. HEENT: Normocephalic Atraumatic. PER, EOMI, conjunctiva and sclera clear Neck: Supple. No carotid bruits. No overt JVD (examined in the bedside chair). Respiratory: Markedly diminished breath sounds. Faint dry crackles. No wheeze. Cardiovascular: Regular at 90 bpm. I could not appreciate a murmur. No rub. No gallop. PMI is displaced. Abdomen: +BS. No bruits. Soft. Nontender. Extremities: Minimal edema. No clubbing. No cyanosis. Distal pulses were not appreciated Neuro: No focal deficits. Psychiatric: Normal affect. (Byron Melchor, [employer]INITY) Data Last 24 Hours Test 07/05/17 16:16 07/05/17 16:27 07/05/17 17:02 07/05/17 23:00 White Blood Count 7.09 K/uL Red Blood Count 4.96 M/uL Hemoglobin 13.3 g/dL 12.4 g/dL Hematocrit 44.5 % 40.1 % Mean Corpuscular Volume 89.7 fL Mean Corpuscular Hemoglobin 26.8 pg Mean Corpuscular Hemoglobin Concent 29.9 g/dl Platelet Count 230 K/uL Mean Platelet Volume 11.5 fL Neutrophils (%) (Auto) 68.5 % Lymphocytes (%) (Auto) 18.2 % Monocytes (%) (Auto) 8.5 % Eosinophils (%) (Auto) 4.4 % Basophils (%) (Auto) 0.3 % Neutrophils # (Auto) 4.86 K/uL Lymphocytes # (Auto) 1.29 K/uL Monocytes # (Auto) 0.60 K/uL Eosinophils # (Auto) 0.31 K/uL Basophils # (Auto) 0.02 K/uL RDW Standard Deviation 50.2 fL RDW Coefficient of Variation 15.6 % Immature Granulocyte % (Auto) 0.1 % Immature Granulocyte # (Auto) 0.01 K/uL Prothrombin Time 10.7 SECONDS Prothromb Time International Ratio 1.0 Activated Partial Thromboplast Time 25.1 SECONDS Partial Thromboplastin Ratio 1.0 Sodium Level 142 mmol/L Potassium Level 4.0 mmol/L Chloride Level 102 mmol/L Carbon Dioxide Level 35 mmol/L Anion Gap 5.0 mmol/L 14.0 mmol/L Blood Urea Nitrogen 28 mg/dl Creatinine 0.71 mg/dl Est Creatinine Clear Calc Drug Dose 68.0 ml/min Estimated GFR () 97.9 Estimated GFR (Non- 84.5 BUN/Creatinine Ratio 40.1 Random Glucose 109 mg/dl Calcium Level 8.8 mg/dl Magnesium Level 2.2 mg/dl Total Bilirubin 0.8 mg/dl Direct Bilirubin 0.2 mg/dl Aspartate Amino Transf (AST/SGOT) 17 U/L Alanine Aminotransferase (ALT/SGPT) 21 U/L Alkaline Phosphatase 62 U/L Total Protein 6.5 gm/dl Albumin 3.4 gm/dl Lipase 95 U/L Bedside Hemoglobin 14.3 g/dl Bedside Hematocrit 42 % Bedside Sodium 141 mEq/L Bedside Potassium 3.9 mEq/L Bedside Chloride 97 mEq/L Bedside Total CO2 35 mEq/l Bedside Blood Urea Nitrogen 29 mg/dl Bedside Creatinine 0.7 mg/dl Bedside Glucose (other) 111 mg/dl Bedside Ionized Calcium ([place]) 1.16 mmol/l Urine Color YELLOW Urine Appearance CLEAR Urine pH 7.5 Urine Specific [place] 1.025 Urine Protein NEG Urine Glucose (UA) NEG Urine Ketones TRACE Urine Occult Blood NEG Urine Nitrite NEG Urine Bilirubin NEG Urine Urobilinogen NEG Urine Leukocyte Esterase TRACE Urine WBC (Auto) 1-5 /hpf Urine RBC (Auto) 10-30 /hpf Urine Hyaline Casts (Auto) 1-5 /lpf Urine Epithelial Cells (Auto) >30 /lpf Urine Bacteria (Auto) NEG Test 07/06/17 05:42 White Blood Count 5.48 K/uL Red Blood Count 4.33 M/uL Hemoglobin 12.0 g/dL Hematocrit 38.9 % Mean Corpuscular Volume 89.8 fL Mean Corpuscular Hemoglobin 27.7 pg Mean Corpuscular Hemoglobin Concent 30.8 g/dl RDW Standard Deviation 50.8 fL RDW Coefficient of Variation 15.5 % Platelet Count 148 K/uL Mean Platelet Volume 12.2 fL Sodium Level 141 mmol/L Potassium Level 4.1 mmol/L Chloride Level 103 mmol/L Carbon Dioxide Level 35 mmol/L Anion Gap 3.0 mmol/L Blood Urea Nitrogen 18 mg/dl Creatinine 0.53 mg/dl Est Creatinine Clear Calc Drug Dose 91.6 ml/min Estimated GFR () 109.2 Estimated GFR (Non- 94.2 BUN/Creatinine Ratio 34.3 Random Glucose 114 mg/dl Calcium Level 8.3 mg/dl June 22, 2017 TTE Interpretation Summary (as per Dr. Ross): Sinus tachycardia is present during study. The qualitative LV ejection fraction is 20- 24% (severely reduced). There is severe diffuse left ventricular hypokinesis. The right ventricular cavity size is normal (basal dimension < 4.2 cm RV apical 4 chamber view). The right ventricular systolic function is normal as assessed by tricuspid annular plane systolic excursion (TAPSE) (normal >1.7 cm). The left atrium is mildly enlarged (35-41 ml/m^2).Mild tricuspid regurgitation is present. The estimated pulmonary artery systolic pressure is 47mm Hg. EKG dated and timed 05-JUL-2017 @ 16:33:13: Sinus rhythm with occasional premature ventricular complexes. Possible left atrial enlargement. Nonspecific T wave abnormality. Telemetry reviewed: Sinus at 90 bpm. Occasional PVC's in singles. Admission CXR with minimal ill-defined bibasilar opacities likely scarring or atelectasis. No new focal infiltrate. Apparent decreased cardiomegaly. As per Dr. Nieves. (Byron Melchor PA-C) Assessment & Plan Admission with probable GI bleeding. Treatment as per Hospitalist and GI Services New onset severe systolic dysfunction (first observed in 06/2017). Left ventricular ejection fraction 20-25%. NYHA Functional Class II-III. Narrow QRS duration. Etiology to be determined, possibly tachycardic induced. Volume status: Normovolemic to hypovolemic Plan: Start/restart Toprol XL at 25 mg/day Start losartan 25 mg daily Continue low dose furosemide and potassium chloride on discharge ( currently on hold) Continue cardiac workup as an outpatient, pharmacological stress testing versus right and left heart catheterization. (Byron Melchor PA-C) CARDIOLOGY ATTENDING ADDENDUM: The patient was seen and personally examined. Agree with Byron Melchor PA-C's findings and plans as documented above. S: Patient seen and examined. Case discussed with GI at the bedside. Patient' s EGD was negative for abnormality. Bleeding perhaps is due to lower GI bleed. At present patient's heart rate is stable on telemetry. She states and medic from a cardiac perspective. Exam: Regular rhythm, no murmurs, lungs clear, no edema Impression: As noted above. Cardiomyopathy could be a stress-induced cardiomyopathy given recent pulmonary exacerbation. Anticipated is too early to recheck her echo today. Agree with empiric medications as outlined above including metoprolol succinate and losartan. Blood work ordered including TSH, serum protein electrophoresis, iron studies, which will be followed up as an outpatient. Agree with avoiding nonsteroidal anti-inflammatories. Agree with holding off on colonoscopy for now given her respiratory status and cardiac status with chronic oxygen dependent COPD, and newly diagnosed cardiomyopathy. DANIELLA (Hira Collins,D.O.)
[2017-07-06 11:59] LABS: FERRITIN 20.9 ng/ml (8.0-388.0); THYROID STIMULATING HORMONE 1.32 uIu/ml (0.300-4.500)
[2017-07-06] MEDS ORDERED: PROPOFOL IV EMULSION 10 MG/ML 20 ML VIAL IV ONE (12:50)
[2017-07-06] MEDS ORDERED: LIDOCAINE HCL 2% 2 ML VIAL (20MG/ML) ONE (12:50)
[2017-07-06] MEDS ORDERED: ETOMIDATE 2 MG/ML 20 ML VIAL IV ONE (13:05)
[2017-07-06] MEDS ORDERED: FENTANYL CITRATE INJ 50 MCG/1 ML 2 ML VIAL ONE (13:05)
--- NOTE | 2017-07-06 13:20 | GI REPORT ---
Procedure Date: 07/06/2017 1:11 PM Procedure: Upper GI endoscopy Indications: Hematochezia Medicines: Monitored Anesthesia Care Complications: No immediate complications. Estimated blood loss: None. Estimated Blood Loss: Estimated blood loss: none. Procedure: Pre-Anesthesia Assessment: - Prior to the procedure, a History and Physical was performed, and patient medications, allergies and sensitivities were reviewed. The patient's tolerance of previous anesthesia was reviewed. - ASA Grade Assessment: III - A patient with severe systemic disease. After obtaining informed consent, the endoscope was passed under direct vision. Throughout the procedure, the patient's blood pressure, pulse, and oxygen saturations were monitored continuously. The scope was introduced through the mouth, and advanced to the third part of duodenum. The upper GI endoscopy was accomplished with ease. The patient tolerated the procedure well. Findings: The upper third of the esophagus, middle third of the esophagus and lower third of the esophagus were normal. The Z-line was regular and was found 40 cm from the incisors. The stomach was normal. The examined duodenum was normal. Impression: - Normal upper third of esophagus, middle third of esophagus and lower third of esophagus. - Z-line regular, 40 cm from the incisors. - Normal stomach. - Normal examined duodenum. - No specimens collected. Recommendation: - Return patient to hospital [facility] for ongoing care. Ravinder Casanova M.D. Ravinder Casanova MD 07/06/2017 1:19:37 PM This report has been signed electronically. Note Initiated On: 07/06/2017 1:11 PM I attest to the content of the Intraoperative Record and orders documented therein, exceptions below
[2017-07-06] MEDS ORDERED: ESMOLOL HCL 10 MG/ML 10 ML VIAL ONE (13:42)
[2017-07-06] MEDS ORDERED: METOPROLOL TARTRATE 1 MG/ML VIAL ONE (13:42)
--- NOTE | 2017-07-06 14:28 | Progress Note ---
Internal Med Progress Note Date of Service: Jul 06, 2017. Provider Documentation: SUBJECTIVE: The patient was seen and examined Very anxious Want to go home Minimal to no BRRB any more No Abdominal discomfort OBJECTIVE: Vital Signs-as noted below Exam: General-No distress at rest Has minimal hands tremors Eyes-Normal ENT-normal Neck-Supple Lungs-Clear to ausucltate bilaterally Heart-Regular Abdomen-Benign,no masses Extremities-No edema Neuro-AAOx3 Lab data as noted below. ASSESSMENT & PLAN: 71 yo F with low EF presents with acute GI bleed. Hematochezia -Likely from Lower GI -May have component of UGIB due to use of NSAIDs, BUN up to 28 with a normal creatinine, an - Last colonoscopy was 07/2016 with one benign adenomatous polyp and one hyperplastic polyp removed. -She had a h/o dysphagia 2/2 esophageal candidiasis which was treated with fluconazole. -It appears she had a repeat EGD in Jul 2016 but these results are not available to me at this time. -Will cont PPI drip (Protonix bolus was given in the ER already) and will continue cautious IVF w new low EF. -Appreciate GI input -S/P Negative EGD -No drop in Hb -likely to be discharged today Chronic Systolic Heart Failure Reduced ejection fraction-new onset but compensated without signs/symptoms of acute heart failure. Denies worsening SOB, is at baseline hypoxia and oxygen needs 2/2 COPD which is also stable. Based on recent TTE result and no follow-up with Cardiology prior to arrival today, they were consulted to follow her. Appreciate Cardiology input Medications adjusted Chronic Respiratory Failure COPD-chronic, stable, no acute wheezing/coughing/no new infiltrate on CXR. Cont home inhalers/nebs No acute symptoms Fibromyalgia-takes Ultram and regular Diclofenac for this twice daily long- term. Advised not to use any Aspirin and or NSAIDs HTN-controlled, on Toprol XL which was held in acute bleed. Furosemide also held. DVT proph-SCDs, chemoprophylaxis contraindicated in acute bleed FULL CODE per my conversation with her on admission. Dispo-to tele as a precaution with low EF. Discharged today Vital Signs: Date Time Temp Pulse Resp B/P (MAP) Pulse Ox O2 Delivery O2 Flow Rate FiO2 07/06/17 14:07 83 16 124/67 (86) 97 Nasal Cannula 3 07/06/17 13:52 95 16 122/71 (88) 99 Mask 10 07/06/17 13:37 125 16 124/60 (81) 99 Mask 10 07/06/17 13:22 114 12 170/121 (137) 97 Mask 10 07/06/17 12:20 37 85 18 148/74 (98) 96 Nasal Cannula 2 07/06/17 12:00 91 07/06/17 11:47 36.6 98 20 137/72 91 Room Air 2.0 07/06/17 11:28 36.6 98 20 137/72 (93) 91 Nasal Cannula 2.0 07/06/17 08:00 99 Nasal Cannula 2.0 07/06/17 07:27 36.6 97 18 121/71 (88) 99 Nasal Cannula 2.0 07/06/17 04:00 98 Nasal Cannula 2.0 07/06/17 03:58 36.7 102 18 129/82 (98) 98 Nasal Cannula 2.0 07/05/17 23:59 36.8 92 18 129/69 (89) 97 Nasal Cannula 2.0 07/05/17 23:59 97 Nasal Cannula 2.0 07/05/17 23:14 36.8 92 18 129/69 (89) 97 Nasal Cannula 2.0 07/05/17 21:11 61 114/71 (85) 07/05/17 21:11 109 129/72 (91) 07/05/17 21:10 102 115/71 (86) 07/05/17 20:17 36.5 62 18 137/67 100 Nasal Cannula 2.0 07/05/17 18:21 98 22 132/92 98 Nasal Cannula 2.0 07/05/17 17:38 105 24 133/81 98 Nasal Cannula 2.0 07/05/17 16:33 94 Nasal Cannula 2.0 07/05/17 16:33 103 23 108/82 94 Nasal Cannula 2.0 07/05/17 16:30 104 07/05/17 14:57 37.0 123 18 158/105 97 Room Air Lab Results: Results Past 24 Hours Test 07/05/17 16:16 07/05/17 16:27 07/05/17 17:02 07/05/17 23:00 Range/Units White Blood Count 7.09 4.8-10.8 K/uL Red Blood Count 4.96 4.2-5.4 M/uL Hemoglobin 13.3 12.4 12.0-16.0 g/dL Hematocrit 44.5 40.1 37-47 % Mean Corpuscular Volume 89.7 80-100 fL Mean Corpuscular Hemoglobin 26.8 25-34 pg Mean Corpuscular Hemoglobin Concent 29.9 32-36 g/dl Platelet Count 230 130-400 K/uL Mean Platelet Volume 11.5 7.4-10.4 fL Neutrophils (%) (Auto) 68.5 % Lymphocytes (%) (Auto) 18.2 % Monocytes (%) (Auto) 8.5 % Eosinophils (%) (Auto) 4.4 % Basophils (%) (Auto) 0.3 % Neutrophils # (Auto) 4.86 1.4-6.5 K/uL Lymphocytes # (Auto) 1.29 1.2-3.4 K/uL Monocytes # (Auto) 0.60 0.11-0.59 K/uL Eosinophils # (Auto) 0.31 0-0.5 K/uL Basophils # (Auto) 0.02 0-0.2 K/uL RDW Standard Deviation 50.2 36.4-46.3 fL RDW Coefficient of Variation 15.6 11.5-14.5 % Immature Granulocyte % (Auto) 0.1 % Immature Granulocyte # (Auto) 0.01 0.00-0.02 K/uL Prothrombin Time 10.7 9.0-12.0 SECONDS Prothromb Time International Ratio 1.0 0.9-1.1 Activated Partial Thromboplast Time 25.1 21.0-31.0 SECONDS Partial Thromboplastin Ratio 1.0 Sodium Level 142 136-145 mmol/L Potassium Level 4.0 3.5-5.1 mmol/L Chloride Level 102 98-107 mmol/L Carbon Dioxide Level 35 21-32 mmol/L Anion Gap 5.0 14.0 16-25 mmol/L Blood Urea Nitrogen 28 7-18 mg/dl Creatinine 0.71 0.60-1.20 mg/dl Est Creatinine Clear Calc Drug Dose 68.0 ml/min Estimated GFR () 97.9 Estimated GFR (Non- 84.5 BUN/Creatinine Ratio 40.1 10-20 Random Glucose 109 70-99 mg/dl Calcium Level 8.8 8.5-10.1 mg/dl Magnesium Level 2.2 1.8-2.4 mg/dl Total Bilirubin 0.8 0.2-1 mg/dl Direct Bilirubin 0.2 0-0.2 mg/dl Aspartate Amino Transf (AST/SGOT) 17 15-37 U/L Alanine Aminotransferase (ALT/SGPT) 21 12-78 U/L Alkaline Phosphatase 62 45-117 U/L Total Protein 6.5 6.4-8.2 gm/dl Albumin 3.4 3.4-5.0 gm/dl Lipase 95 73-393 U/L Bedside Hemoglobin 14.3 12.0-16.0 g/dl Bedside Hematocrit 42 37-47 % Bedside Sodium 141 135-144 mEq/L Bedside Potassium 3.9 3.3-5.0 mEq/L Bedside Chloride 97 101-112 mEq/L Bedside Total CO2 35 24-31 mEq/l Bedside Blood Urea Nitrogen 29 7-18 mg/dl Bedside Creatinine 0.7 0.6-1.3 mg/dl Bedside Glucose (other) 111 70-99 mg/dl Bedside Ionized Calcium ([place]) 1.16 1.12-1.32 mmol/l Urine Color YELLOW Urine Appearance CLEAR CLEAR Urine pH 7.5 4.5-7.5 Urine Specific [place] 1.025 1.000-1.030 Urine Protein NEG NEG Urine Glucose (UA) NEG NEG Urine Ketones TRACE NEG Urine Occult Blood NEG NEG Urine Nitrite NEG NEG Urine Bilirubin NEG NEG Urine Urobilinogen NEG NEG Urine Leukocyte Esterase TRACE NEG Urine WBC (Auto) 1-5 0-5 /hpf Urine RBC (Auto) 10-30 0-4 /hpf Urine Hyaline Casts (Auto) 1-5 0-5 /lpf Urine Epithelial Cells (Auto) >30 0-5 /lpf Urine Bacteria (Auto) NEG NEG Test 07/06/17 05:42 07/06/17 11:09 Range/Units White Blood Count 5.48 4.8-10.8 K/uL Red Blood Count 4.33 4.2-5.4 M/uL Hemoglobin 12.0 12.0-16.0 g/dL Hematocrit 38.9 37-47 % Mean Corpuscular Volume 89.8 80-100 fL Mean Corpuscular Hemoglobin 27.7 25-34 pg Mean Corpuscular Hemoglobin Concent 30.8 32-36 g/dl RDW Standard Deviation 50.8 36.4-46.3 fL RDW Coefficient of Variation 15.5 11.5-14.5 % Platelet Count 148 130-400 K/uL Mean Platelet Volume 12.2 7.4-10.4 fL Sodium Level 141 136-145 mmol/L Potassium Level 4.1 3.5-5.1 mmol/L Chloride Level 103 98-107 mmol/L Carbon Dioxide Level 35 21-32 mmol/L Anion Gap 3.0 3-11 mmol/L Blood Urea Nitrogen 18 7-18 mg/dl Creatinine 0.53 0.60-1.20 mg/dl Est Creatinine Clear Calc Drug Dose 91.6 ml/min Estimated GFR () 109.2 Estimated GFR (Non- 94.2 BUN/Creatinine Ratio 34.3 10-20 Random Glucose 114 70-99 mg/dl Calcium Level 8.3 8.5-10.1 mg/dl Iron Level 94 35-150 mcg/dl Total Iron Binding Capacity 376 250-450 mcg/dl Transferrin 274 200-360 mg/dl Transferrin % Saturation 25 15-50 % Ferritin 20.9 8.0-388.0 ng/ml Thyroid Stimulating Hormone (TSH) 1.320 0.300-4.500 uIu/ml
--- NOTE | 2017-07-06 14:44 | Anesthesiology Progress Note ---
Anesthesia Post Op Note Date & Time Jul 06, 2017 at 13:52 Vital Signs Pain Intensity: 0.0 Vital Signs Past 12 Hours Date Time Temp Pulse Resp B/P (MAP) Pulse Ox O2 Delivery O2 Flow Rate FiO2 07/06/17 13:22 114 12 170/121 (137) 97 Mask 10 07/06/17 12:20 37 85 18 148/74 (98) 96 Nasal Cannula 2 07/06/17 12:00 91 07/06/17 11:47 36.6 98 20 137/72 91 Room Air 2.0 07/06/17 11:28 36.6 98 20 137/72 (93) 91 Nasal Cannula 2.0 07/06/17 08:00 99 Nasal Cannula 2.0 07/06/17 07:27 36.6 97 18 121/71 (88) 99 Nasal Cannula 2.0 07/06/17 04:00 98 Nasal Cannula 2.0 07/06/17 03:58 36.7 102 18 129/82 (98) 98 Nasal Cannula 2.0 Notes Mental Status: alert / awake / arousable, participated in evaluation Pt Amnestic to Procedure: Yes Nausea / Vomiting: adequately controlled Pain: adequately controlled Airway Patency, RR, SpO2: stable & adequate BP & HR: stable & adequate Hydration State: stable & adequate Anesthetic Complications: no major complications apparent Anesthetic Complications: On arrival to PACU, the patient became nauseas and diaphoretic with tachycardia up to 130s. Patient was given 100 mg of esmolol and 4 mg of zofran with improvement in nausea and good heart rate response down to 90s. Patient was given 5 mg of metoprolol to maintain HR in low 90s and her blood pressure remained stable. The patient was sent to the floor hemodynamically stable and without nausea.
[2017-07-06] MEDS: TRAMADOL HCL 50 MG TAB PO PRN (22:02)
[2017-07-07] VITALS: BP 120/77; PULSE 98; TEMP 36.8; O2SAT 96
[2017-07-07] MEDS: D5NSS + 20MEQ KCL 1,000 ML IV SCH (02:26)
[2017-07-07] MEDS: PANTOprazole INJ 40 MG in DEXTROSE 5% 100ML IV SCH ×2 (03:32→08:47)
[2017-07-07 04:00] VITALS: BP 126/61; PULSE 98; TEMP 36.8; O2SAT 97
[2017-07-07 07:19] VITALS: BP 117/47; PULSE 86; TEMP 36.7; O2SAT 98
[2017-07-07] MEDS: TIOTROPIUM BROMIDE 5 PUFF/90 MCG INH INH SCH (08:10)
[2017-07-07] MEDS: BUDESONIDE/FORMOTEROL FUMARATE 160/4.5 60 PUFFS/INHALER INH SCH (08:11)
[2017-07-07] MEDS: TRAMADOL HCL 50 MG TAB PO PRN (08:19)
[2017-07-07] MEDS ORDERED: METOPROLOL SUCC 25MG EXT REL TAB PO SCH (09:00)
[2017-07-07 10:35] LABS: HEMATOCRIT 40.4 % (37-47); MEAN CELL VOLUME 91.4 fL (80-100); MEAN CORPUSCULAR HEMOGLOBIN 27.6 pg (25-34); MEAN CORPUSCULAR HGB CONC 30.2 g/dl (32-36); MEAN PLATELET VOLUME 11.3 fL (7.4-10.4); PLATELET COUNT 153 K/uL (130-400); RED BLOOD COUNT 4.42 M/uL (4.2-5.4); WHITE BLOOD COUNT 5.96 K/uL (4.8-10.8)
[2017-07-07 11:17] LABS: BUN/CREATININE RATIO 15.1 (10-20); CALCIUM 8.6 mg/dl (8.5-10.1); CREATININE 0.7 mg/dl (0.60-1.20); MAGNESIUM 1.9 mg/dl (1.8-2.4); POTASSIUM 4.2 mmol/L (3.5-5.1)
[2017-07-07 11:26] VITALS: BP 127/77; PULSE 95; TEMP 36.8; O2SAT 97
[2017-07-07 11:28] VITALS: BP 126/79; PULSE 69; TEMP 36.9; O2SAT 98
--- NOTE | 2017-07-07 12:41 | Progress Note ---
Internal Med Progress Note Date of Service: Jul 07, 2017. Provider Documentation: SUBJECTIVE: The patient was seen and examined Feeling a lot better Denies any CP,SOB and or palpitation No more GI Bleed Has been ambulating well OBJECTIVE: Vital Signs-as noted below Exam: General-No distress at rest Has minimal hands tremors Eyes-Normal ENT-normal Neck-Supple Lungs-Clear to ausucltate bilaterally Heart-Regular Abdomen-Benign,no masses Extremities-No edema Neuro-AAOx3 Lab data as noted below. ASSESSMENT & PLAN: 71 yo F with low EF presents with acute GI bleed. Hematochezia -Likely from Lower GI -May have component of UGIB due to use of NSAIDs, BUN up to 28 with a normal creatinine, an - Last colonoscopy was 07/2016 with one benign adenomatous polyp and one hyperplastic polyp removed. -She had a h/o dysphagia 2/2 esophageal candidiasis which was treated with fluconazole. -It appears she had a repeat EGD in Jul 2016 but these results are not available to me at this time. -Will cont PPI drip (Protonix bolus was given in the ER already) and will continue cautious IVF w new low EF. -Appreciate GI input -S/P Negative EGD -No drop in Hb -No more bleeding Per rectum -denies any abdominal pain ,nausea and or vomiting Chronic Systolic Heart Failure Reduced ejection fraction-new onset but compensated without signs/symptoms of acute heart failure. Denies worsening SOB, is at baseline hypoxia and oxygen needs 2/2 COPD which is also stable. Based on recent TTE result and no follow-up with Cardiology prior to arrival today, they were consulted to follow her. Appreciate Cardiology input Medications adjusted Remains stable Chronic Respiratory Failure COPD-chronic, stable, no acute wheezing/coughing/no new infiltrate on CXR. Cont home inhalers/nebs No acute symptoms has been ambulating without any Symptoms Uses Oxygen all the time Fibromyalgia-takes Ultram and regular Diclofenac for this twice daily long- term. Advised not to use any Aspirin and or NSAIDs HTN-controlled, on Toprol XL which was held in acute bleed. Furosemide has been restarted DVT proph-SCDs, chemoprophylaxis contraindicated in acute bleed FULL CODE per my conversation with her on admission. Dispo-to tele as a precaution with low EF. Discharged today Vital Signs: Date Time Temp Pulse Resp B/P (MAP) Pulse Ox O2 Delivery O2 Flow Rate FiO2 07/07/17 13:22 36.9 69 16 98 Nasal Cannula 07/07/17 11:28 36.9 69 16 126/79 (95) 98 Room Air 07/07/17 11:26 36.8 95 20 127/77 (94) 97 Nasal Cannula 2.0 07/07/17 08:00 Nasal Cannula 2.0 07/07/17 07:19 36.7 86 20 117/47 (70) 98 Nasal Cannula 2.0 07/07/17 04:02 Nasal Cannula 2.0 07/07/17 04:00 36.8 98 20 126/61 (82) 97 Nasal Cannula 2.0 07/07/17 00:00 36.8 98 18 120/77 (91) 96 Nasal Cannula 2.0 07/07/17 00:00 Nasal Cannula 2.0 07/06/17 20:36 36.0 91 18 108/63 (78) 99 07/06/17 20:04 Nasal Cannula 2.0 07/06/17 16:00 99 Nasal Cannula 2.0 07/06/17 15:56 36.3 75 16 95/63 (74) 99 Lab Results: Results Past 24 Hours Test 07/07/17 10:19 Range/Units White Blood Count 5.96 4.8-10.8 K/uL Red Blood Count 4.42 4.2-5.4 M/uL Hemoglobin 12.2 12.0-16.0 g/dL Hematocrit 40.4 37-47 % Mean Corpuscular Volume 91.4 80-100 fL Mean Corpuscular Hemoglobin 27.6 25-34 pg Mean Corpuscular Hemoglobin Concent 30.2 32-36 g/dl RDW Standard Deviation 51.3 36.4-46.3 fL RDW Coefficient of Variation 15.6 11.5-14.5 % Platelet Count 153 130-400 K/uL Mean Platelet Volume 11.3 7.4-10.4 fL Sodium Level 141 136-145 mmol/L Potassium Level 4.2 3.5-5.1 mmol/L Chloride Level 101 98-107 mmol/L Carbon Dioxide Level 35 21-32 mmol/L Anion Gap 5.0 3-11 mmol/L Blood Urea Nitrogen 11 7-18 mg/dl Creatinine 0.70 0.60-1.20 mg/dl Est Creatinine Clear Calc Drug Dose 69.4 ml/min Estimated GFR () 99.6 Estimated GFR (Non- 86.0 BUN/Creatinine Ratio 15.1 10-20 Random Glucose 109 70-99 mg/dl Calcium Level 8.6 8.5-10.1 mg/dl Magnesium Level 1.9 1.8-2.4 mg/dl
[2017-07-07] MEDS ORDERED: CZR25 PO (12:45)
--- NOTE | 2017-07-07 12:47 | Discharge Instructions ---
Discharge Instructions Date of Service Jul 07, 2017. Admission Reason for Admission: Gi Bleed Discharge Discharge Diagnosis / Problem: GI bleed,Negative EGD,COPD,CAD Discharge Goals Goal(s): Prevent Disease Progression Activity Recommendations Activity Limitations: resume your previous activity . Instructions / Follow-Up Instructions / Follow-Up DR Moon on 07/11/17 at 1:00PM Current Hospital Diet Patient's current hospital diet: AHA Diet (Heart Healthy) Discharge Diet Recommended Diet: AHA Diet (Heart Healthy) Fluid Restriction: 1500 ml (6 cups) Procedures Procedures Performed: EGD Pending Studies Studies pending at discharge: no Medical Emergencies . Who to Call and When: Medical Emergencies: If at any time you feel your situation is an emergency, please call 911 immediately. . Non-Emergent Contact Non-Emergency issues call your: Primary Care Provider . Past History Medical & Surgical History: (1) Hypertension (2) COPD (chronic obstructive pulmonary disease) (3) GERD (gastroesophageal reflux disease) (4) Fibromyalgia (5) Reduced ejection fraction concurrent with and due to chronic heart failure (6) GI bleed (7) Status post appendectomy (8) Status post hysterectomy (9) Status post repair of ventral hernia (10) Hx of cataract surgery (11) S/P Mohs surgery for basal cell carcinoma (12) History of cyst removal left breast . "Provider Documentation" section prepared by Max Hallman. . VTE Core Measure Inpt VTE Proph given/why not?: SCD's, Contraindicated
[2017-07-07 13:22] VITALS: BP 126/79; PULSE 69; TEMP 36.9; O2SAT 98
[2017-07-07] MEDS ORDERED: LOSARTAN POTASSIUM 25 MG TAB PO SCH (21:00)
[2017-07-09 15:40] LABS: ALBUMIN 3.4 G/DL (3.8-4.8); GAMMA GLOBULIN 0.6 G/DL (0.8-1.7); TOTAL PROTEIN 5.5 G/DL (6.2-8.3)
--- NOTE | 2017-07-13 10:32 | Discharge Summary ---
Discharge Summary Date of Service Jul 13, 2017. Discharge Summary Admission Date: Jul 05, 2017 at 19:10 Discharge Date: Jul 07, 2017 Discharge Disposition: Home Principal Diagnosis: GI bleed,Negative EGD,COPD,CAD Secondary Diagnoses/Problems: Please see H&P and Hospital Progress note Consultations: GI Medication Reconciliation New Medications: Losartan Potassium (Losartan Potassium) 25 Mg Tab 25 MG PO QPM for 30 Days, #30 TAB Continued Medications: Albuterol Hfa (Ventolin Hfa) 200 Puffs/87889 Mcg Aers 2 PUFFS INH Q4H PRN for SOB/Wheezing Budesonide/Formoterol Fumarate (Symbicort 160/4.5 Inhaler) 120 Puffs/ Aero 2 PUFFS INH BID Diclofenac Sodium (Topical) (Voltaren 1% Top Gel) 1 % Gel 1 APPLN TD BID Furosemide (Lasix) 20 Mg Tab 20 MG PO DAILY Home O2 Therapy (Oxygen) Gas 2 LITERS NA PRN for 30 Days Continue as before.May need 3-4 liters on ambulation Ipratropium-Albuterol (Duoneb) 3 Ml Nebu 1 TREATMENT INH Q4H PRN for SOB/Wheezing, INHA Metoprolol Succinate (Toprol Xl) 25 Mg Tab 25 MG PO DAILY, #30 TAB Omeprazole (Prilosec) 20 Mg Capcr 20 MG PO QAM Potassium Chloride (K-Tabs) 10 Meq Tab 10 MEQ PO DAILY Tiotropium Redmond (Spiriva Handihaler) 30 Puff/540 Mcg Aerp 1 PUFF INH DAILY Tramadol HCl (Tramadol HCl) 50 Mg Tab 50 MG PO TID PRN for Pain Discontinued Medications: Diclofenac (Voltaren) 50 Mg Tabec 50 MG PO BID, TAB Admission Information HPI (per Admitting provider): 71 yo F with COPD who presents with acute GI bleeding over the past 3 days that is associated with epigastric pain. She reports maroon-colored dark stools and clots beginning 3 days ago. She states that one month ago she had severe abdominal pain for several hours that was much worse than now without any bleeding; this resolved spontaneously. She denies any lightheadedness, shortness of breath, chest pain, headache, fevers, chills, nausea, vomiting or diarrhea. She has chronic constipation with pellet-sized BMs for the past year. She was recently hospitalized for shortness of breath and was treated for a COPD exacerbation. She was thought to have atrial flutter and was put on coumadin at that time, which was subsequently stopped on further review of the rhythm per EP who labeled it sinus tachycardia. She has been off coumadin since around 06/15 and has a normal INR. She does take twice daily Diclofenac for fibromyalgia, but denies other NSAIDs or blood thinners. Of note, she recently had an echocardiogram revealing and EF 20-25% which is new since December 2015 (EF 60-65%). She reports no change in shortness of breath on exertion and states she can still walk the grocery store aisles without stopping just like she used to. She has always slept up on pillows because she likes them but states that now she has to because she is short of breath laying down at night. She denies any weight gain or cough. She has not had any follow-up as outpatient since the echo was completed, but was supposed to see someone from Cardiology in the office today, of course missing her appointment as she is here. I talked with Dr. Collins who will evaluate her during her stay. In the ER she has some mild tachycardia but is otherwise looking well and appears stable. Past Medical/Surgical History Medical Problems: (1) BCC (basal cell carcinoma of skin) Permanent Comment: s/p MOHS surgery Status: Chronic (2) COPD (chronic obstructive pulmonary disease) Permanent Comment: severity to be determined Status: Chronic (3) Dyslipidemia Status: Chronic (4) Fibromyalgia Status: Chronic (5) GERD (gastroesophageal reflux disease) Status: Chronic (6) Hypertension Status: Chronic (7) Osteoporosis Status: Chronic (8) Reduced ejection fraction concurrent with and due to chronic heart failure Status: Chronic Surgical Problems: (1) History of cyst removal left breast Status: Chronic (2) Hx of cataract surgery Status: Chronic (3) S/P Mohs surgery for basal cell carcinoma Status: Chronic (4) Status post appendectomy Status: Chronic (5) Status post hysterectomy Status: Chronic (6) Status post repair of ventral hernia Status: Chronic Family History FH: prostate cancer FATHER Social History Smoking Status: Former Smoker (quit 2003, lifelong smoker) Smokeless Tobacco Use: No Alcohol Use: occasionally Drug Use: none Marital Status: single Housing status: lives alone Occupational Status: retired Immunizations History of Influenza Vaccine: Yes Influenza Vaccine Date: Aug 24, 2015 History of Tetanus Vaccine?: Yes Tetanus Immunization Date: Jan 20, 2014 History of Pneumococcal: Yes Pneumococcal Date: Dec 13, 2014 History of Hepatitis B Vaccine: No Multi-Drug Resistant Organisms History of MDRO: Yes Type of MDRO: MRSA Allergies Coded Allergies: Duloxetine (Verified Allergy, Intermediate, RASH, 07/05/17) CI Pigment Blue 63 (Verified Allergy, Unknown, RASH, 07/05/17) Naproxen (Verified Adverse Reaction, Mild, GI SYMPTOMS, 07/05/17) Home Medications Scheduled Budesonide/Formoterol Fumarate (Symbicort 160/4.5 Inhaler), 2 PUFFS INH BID Diclofenac (Voltaren), 50 MG PO BID Diclofenac Sodium (Topical) (Voltaren 1% Top Gel), 1 APPLN TD BID Furosemide (Lasix), 20 MG PO DAILY Home O2 Therapy (Oxygen), 2 LITERS NA PRN Metoprolol Succinate (Toprol Xl), 12.5 MG PO DAILY Omeprazole (Prilosec), 20 MG PO QAM Potassium Chloride (K-Tabs), 10 MEQ PO DAILY Tiotropium Redmond (Spiriva Handihaler), 1 PUFF INH DAILY Scheduled PRN Albuterol Hfa (Ventolin Hfa), 2 PUFFS INH Q4H PRN for SOB/Wheezing Ipratropium-Albuterol (Duoneb), 1 TREATMENT INH Q4H PRN for SOB/Wheezing Tramadol HCl (Tramadol HCl), 50 MG PO TID PRN for Pain Review of Systems At least ten systems reviewed and negative except as indicated in HPI. Physical Exam Vital Signs Date Time Temp Pulse Resp B/P (MAP) Pulse Ox O2 Delivery O2 Flow Rate FiO2 07/05/17 18:21 98 22 132/92 98 Nasal Cannula 2.0 07/05/17 17:38 105 24 133/81 98 Nasal Cannula 2.0 07/05/17 16:33 94 Nasal Cannula 2.0 07/05/17 16:33 103 23 108/82 94 Nasal Cannula 2.0 07/05/17 16:30 104 07/05/17 14:57 37.0 123 18 158/105 97 Room Air General Appearance: WD/WN, no apparent distress Head: normocephalic, atraumatic Eyes: normal inspection, PERRL, sclerae normal ENT: hearing grossly normal, pharynx normal Neck: supple, no adenopathy, trachea midline Respiratory/Chest: lungs clear, normal breath sounds, no respiratory distress, + pertinent finding (98% on 2L via nasal canula, no tachypnea or conversational dyspnea. 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, no motor/sensory deficits, alert, normal mood/affect, oriented x 3 Skin: normal color, warm/dry, no rash Diagnostics Laboratory Results 07/05/17 16:16 Red Blood Count 4.96, Mean Corpuscular Volume 89.7, Mean Corpuscular Hemoglobin 26.8, Mean Corpuscular Hemoglobin Concent 29.9, Mean Platelet Volume 11.5, Neutrophils (%) (Auto) 68.5, Lymphocytes (%) (Auto) 18.2, Monocytes (%) (Auto) 8.5, Eosinophils (%) (Auto) 4.4, Basophils (%) (Auto) 0.3, Neutrophils # (Auto) 4.86, Lymphocytes # (Auto) 1.29, Monocytes # (Auto) 0.60, Eosinophils # (Auto) 0.31, Basophils # (Auto) 0.02 07/05/17 16:16 Test 07/05/17 16:16 07/05/17 16:27 07/05/17 17:02 White Blood Count 7.09 K/uL (4.8-10.8) Red Blood Count 4.96 M/uL (4.2-5.4) Hemoglobin 13.3 g/dL (12.0-16.0) Hematocrit 44.5 % (37-47) Mean Corpuscular Volume 89.7 fL (80-100) Mean Corpuscular Hemoglobin 26.8 pg (25-34) Mean Corpuscular Hemoglobin Concent 29.9 g/dl (32-36) Platelet Count 230 K/uL (130-400) Mean Platelet Volume 11.5 fL (7.4-10.4) Neutrophils (%) (Auto) 68.5 % Lymphocytes (%) (Auto) 18.2 % Monocytes (%) (Auto) 8.5 % Eosinophils (%) (Auto) 4.4 % Basophils (%) (Auto) 0.3 % Neutrophils # (Auto) 4.86 K/uL (1.4-6.5) Lymphocytes # (Auto) 1.29 K/uL (1.2-3.4) Monocytes # (Auto) 0.60 K/uL (0.11-0.59) Eosinophils # (Auto) 0.31 K/uL (0-0.5) Basophils # (Auto) 0.02 K/uL (0-0.2) RDW Standard Deviation 50.2 fL (36.4-46.3) RDW Coefficient of Variation 15.6 % (11.5-14.5) Immature Granulocyte % (Auto) 0.1 % Immature Granulocyte # (Auto) 0.01 K/uL (0.00-0.02) Prothrombin Time 10.7 SECONDS (9.0-12.0) Prothromb Time International Ratio 1.0 (0.9-1.1) Activated Partial Thromboplast Time 25.1 SECONDS (21.0-31.0) Partial Thromboplastin Ratio 1.0 Est Creatinine Clear Calc Drug Dose 68.0 ml/min Estimated GFR () 97.9 Estimated GFR (Non- 84.5 BUN/Creatinine Ratio 40.1 (10-20) Calcium Level 8.8 mg/dl (8.5-10.1) Magnesium Level 2.2 mg/dl (1.8-2.4) Total Bilirubin 0.8 mg/dl (0.2-1) Direct Bilirubin 0.2 mg/dl (0-0.2) Aspartate Amino Transf (AST/SGOT) 17 U/L (15-37) Alanine Aminotransferase (ALT/SGPT) 21 U/L (12-78) Alkaline Phosphatase 62 U/L (45-117) Total Protein 6.5 gm/dl (6.4-8.2) Albumin 3.4 gm/dl (3.4-5.0) Lipase 95 U/L (73-393) Bedside Hemoglobin 14.3 g/dl (12.0-16.0) Bedside Hematocrit 42 % (37-47) Bedside Sodium 141 mEq/L (135-144) Bedside Potassium 3.9 mEq/L (3.3-5.0) Bedside Chloride 97 mEq/L (101-112) Bedside Total CO2 35 mEq/l (24-31) Anion Gap 14.0 mmol/L (16-25) Bedside Blood Urea Nitrogen 29 mg/dl (7-18) Bedside Creatinine 0.7 mg/dl (0.6-1.3) Bedside Glucose (other) 111 mg/dl (70-99) Bedside Ionized Calcium (Wandy) 1.16 mmol/l (1.12-1.32) Urine Color YELLOW Urine Appearance CLEAR (CLEAR) Urine pH 7.5 (4.5-7.5) Urine Specific Greene 1.025 (1.000-1.030) Urine Protein NEG (NEG) Urine Glucose (UA) NEG (NEG) Urine Ketones TRACE (NEG) Urine Occult Blood NEG (NEG) Urine Nitrite NEG (NEG) Urine Bilirubin NEG (NEG) Urine Urobilinogen NEG (NEG) Urine Leukocyte Esterase TRACE (NEG) Urine WBC (Auto) 1-5 /hpf (0-5) Urine RBC (Auto) 10-30 /hpf (0-4) Urine Hyaline Casts (Auto) 1-5 /lpf (0-5) Urine Epithelial Cells (Auto) >30 /lpf (0-5) Urine Bacteria (Auto) NEG (NEG) Results Past 24 Hours Test 07/05/17 16:16 07/05/17 16:27 07/05/17 17:02 Range/Units White Blood Count 7.09 4.8-10.8 K/uL Red Blood Count 4.96 4.2-5.4 M/uL Hemoglobin 13.3 12.0-16.0 g/dL Hematocrit 44.5 37-47 % Mean Corpuscular Volume 89.7 80-100 fL Mean Corpuscular Hemoglobin 26.8 25-34 pg Mean Corpuscular Hemoglobin Concent 29.9 32-36 g/dl Platelet Count 230 130-400 K/uL Mean Platelet Volume 11.5 7.4-10.4 fL Neutrophils (%) (Auto) 68.5 % Lymphocytes (%) (Auto) 18.2 % Monocytes (%) (Auto) 8.5 % Eosinophils (%) (Auto) 4.4 % Basophils (%) (Auto) 0.3 % Neutrophils # (Auto) 4.86 1.4-6.5 K/uL Lymphocytes # (Auto) 1.29 1.2-3.4 K/uL Monocytes # (Auto) 0.60 0.11-0.59 K/uL Eosinophils # (Auto) 0.31 0-0.5 K/uL Basophils # (Auto) 0.02 0-0.2 K/uL RDW Standard Deviation 50.2 36.4-46.3 fL RDW Coefficient of Variation 15.6 11.5-14.5 % Immature Granulocyte % (Auto) 0.1 % Immature Granulocyte # (Auto) 0.01 0.00-0.02 K/uL Prothrombin Time 10.7 9.0-12.0 SECONDS Prothromb Time International Ratio 1.0 0.9-1.1 Activated Partial Thromboplast Time 25.1 21.0-31.0 SECONDS Partial Thromboplastin Ratio 1.0 Sodium Level 142 136-145 mmol/L Potassium Level 4.0 3.5-5.1 mmol/L Chloride Level 102 98-107 mmol/L Carbon Dioxide Level 35 21-32 mmol/L Anion Gap 5.0 14.0 16-25 mmol/L Blood Urea Nitrogen 28 7-18 mg/dl Creatinine 0.71 0.60-1.20 mg/dl Est Creatinine Clear Calc Drug Dose 68.0 ml/min Estimated GFR () 97.9 Estimated GFR (Non- 84.5 BUN/Creatinine Ratio 40.1 10-20 Random Glucose 109 70-99 mg/dl Calcium Level 8.8 8.5-10.1 mg/dl Magnesium Level 2.2 1.8-2.4 mg/dl Total Bilirubin 0.8 0.2-1 mg/dl Direct Bilirubin 0.2 0-0.2 mg/dl Aspartate Amino Transf (AST/SGOT) 17 15-37 U/L Alanine Aminotransferase (ALT/SGPT) 21 12-78 U/L Alkaline Phosphatase 62 45-117 U/L Total Protein 6.5 6.4-8.2 gm/dl Albumin 3.4 3.4-5.0 gm/dl Lipase 95 73-393 U/L Bedside Hemoglobin 14.3 12.0-16.0 g/dl Bedside Hematocrit 42 37-47 % Bedside Sodium 141 135-144 mEq/L Bedside Potassium 3.9 3.3-5.0 mEq/L Bedside Chloride 97 101-112 mEq/L Bedside Total CO2 35 24-31 mEq/l Bedside Blood Urea Nitrogen 29 7-18 mg/dl Bedside Creatinine 0.7 0.6-1.3 mg/dl Bedside Glucose (other) 111 70-99 mg/dl Bedside Ionized Calcium (Wandy) 1.16 1.12-1.32 mmol/l Urine Color YELLOW Urine Appearance CLEAR CLEAR Urine pH 7.5 4.5-7.5 Urine Specific Greene 1.025 1.000-1.030 Urine Protein NEG NEG Urine Glucose (UA) NEG NEG Urine Ketones TRACE NEG Urine Occult Blood NEG NEG Urine Nitrite NEG NEG Urine Bilirubin NEG NEG Urine Urobilinogen NEG NEG Urine Leukocyte Esterase TRACE NEG Urine WBC (Auto) 1-5 0-5 /hpf Urine RBC (Auto) 10-30 0-4 /hpf Urine Hyaline Casts (Auto) 1-5 0-5 /lpf Urine Epithelial Cells (Auto) >30 0-5 /lpf Urine Bacteria (Auto) NEG NEG EKG SR99, No ST changes and no Q waves. Impression Assessment and Plan 71 yo F with low EF presents with acute GI bleed. 1. Hematochezia-likely UGIB with recent h/o NSAIDs, BUN up to 28 with a normal creatinine, and abdominal discomfort. No h/o GI bleed. Last colonoscopy was with one benign adenomatous polyp and one hyperplastic polyp removed. She had a h/o dysphagia 2/2 esophageal candidiasis which was treated with fluconazole. It appears she had a repeat EGD in Jul 2016 but these results are not available to me at this time. Will cont PPI drip (Protonix bolus was given in the ER already) and will continue cautious IVF w new low EF. GI consulted to see patient. Currently not anemic but will trend H/H overnight. Clears for now and NPO p MN. 2. Reduced ejection fraction-new onset but compensated without signs/symptoms of acute heart failure. Denies worsening SOB, is at baseline hypoxia and oxygen needs 2/2 COPD which is also stable. Based on recent TTE result and no follow-up with Cardiology prior to arrival today, they were consulted to follow her. 3. COPD-chronic, stable, no acute wheezing/coughing/no new infiltrate on CXR. Cont home inhalers/nebs 4. Fibromyalgia-takes Ultram and regular Diclofenac for this twice daily long- term. 5. HTN-controlled, on Toprol XL which was held in acute bleed. Furosemide also held. DVT proph-SCDs, chemoprophylaxis contraindicated in acute bleed FULL CODE per my conversation with her on admission. Dispo-to tele as a precaution with low EF. Myrna Rodriguez DO [facility] Level [facility] Care Telemetry Resuscitation Status FULL RESUSCITATION VTE Prophylaxis VTE Risk Assessment Done? Y/N: Yes Risk Level: Moderate Given or contraindicated: SCD's, Contraindicated <Electronically signed by Myrna Rodriguez DO> Signed: 07/05/172018 Physical Exam (per Admitting): General Appearance: WD/WN, no apparent distress Head: normocephalic, atraumatic Eyes: normal inspection, PERRL, sclerae normal ENT: hearing grossly normal, pharynx normal Neck: supple, no adenopathy, trachea midline Respiratory/Chest: lungs clear, normal breath sounds, no respiratory distress, + pertinent finding (98% on 2L via nasal canula, no tachypnea or conversational dyspnea. 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 Hematochezia -Likely from Lower GI -May have component of UGIB due to use of NSAIDs, BUN up to 28 with a normal creatinine, an - Last colonoscopy was 07/2016 with one benign adenomatous polyp and one hyperplastic polyp removed. -She had a h/o dysphagia 2/2 esophageal candidiasis which was treated with fluconazole. -It appears she had a repeat EGD in Jul 2016 but these results are not available to me at this time. -Will cont PPI drip (Protonix bolus was given in the ER already) and will continue cautious IVF w new low EF. -Appreciate GI input -S/P Negative EGD -No drop in Hb -No more bleeding Per rectum -denies any abdominal pain ,nausea and or vomiting Chronic Systolic Heart Failure Reduced ejection fraction-new onset but compensated without signs/symptoms of acute heart failure. Denies worsening SOB, is at baseline hypoxia and oxygen needs 2/2 COPD which is also stable. Based on recent TTE result and no follow-up with Cardiology prior to arrival today, they were consulted to follow her. Appreciate Cardiology input Medications adjusted Remains stable Chronic Respiratory Failure COPD-chronic, stable, no acute wheezing/coughing/no new infiltrate on CXR. Cont home inhalers/nebs No acute symptoms has been ambulating without any Symptoms Uses Oxygen all the time Fibromyalgia-takes Ultram and regular Diclofenac for this twice daily long- term. Advised not to use any Aspirin and or NSAIDs HTN-controlled, on Toprol XL which was held in acute bleed. Furosemide has been restarted DVT proph-SCDs, chemoprophylaxis contraindicated in acute bleed FULL CODE per my conversation with her on admission. Dispo-to tele as a precaution with low EF. Discharged today Total time spent on discharge = 35 minutes This includes examination of the patient, discharge planning, medication reconciliation, and communication with other providers. Discharge Instructions Date of Service Jul 07, 2017. Admission Reason for Admission: Gi Bleed Discharge Discharge Diagnosis / Problem: GI bleed,Negative EGD,COPD,CAD Discharge Goals Goal(s): Prevent Disease Progression Activity Recommendations Activity Limitations: resume your previous activity . Instructions / Follow-Up Instructions / Follow-Up DR Moon on 07/11/17 at 1:00PM Current Hospital Diet Patient's current hospital diet: AHA Diet (Heart Healthy) Discharge Diet Recommended Diet: AHA Diet (Heart Healthy) Fluid Restriction: 1500 ml (6 cups) Procedures Procedures Performed: EGD Pending Studies Studies pending at discharge: no Medical Emergencies . Who to Call and When: Medical Emergencies: If at any time you feel your situation is an emergency, please call 911 immediately. . Non-Emergent Contact Non-Emergency issues call your: Primary Care Provider . Past History Medical & Surgical History: (1) Hypertension (2) COPD (chronic obstructive pulmonary disease) (3) GERD (gastroesophageal reflux disease) (4) Fibromyalgia (5) Reduced ejection fraction concurrent with and due to chronic heart failure (6) GI bleed (7) Status post appendectomy (8) Status post hysterectomy (9) Status post repair of ventral hernia (10) Hx of cataract surgery (11) S/P Mohs surgery for basal cell carcinoma (12) History of cyst removal left breast . "Provider Documentation" section prepared by Max Hallman. . VTE Core Measure Inpt VTE Proph given/why not?: SCD's, Contraindicated <Electronically signed by Max Hallman M.D.> Signed: 07/07/17 1371 Additional Copies To Russ Moon M.D.
== END 2017-07-07 13:25 | disposition home health service (06) | DRG 378 ==
LOC: C.EDB 14:46 → C.2T 19:10 → ENRESERV 19:22 → CANRESERV 19:22 → ENRESERV 19:29
PROVIDERS: ADMIT Hospitalist; ATTEND Internal Medicine
PROC: 0DJ08ZZ Inspection of Upper Intestinal Tract, Via Natural or Artificial Opening Endoscopic (ICD-10-PCS; principal; 2017-07-06 12:09)
DX: K92.1 Melena (principal); I50.22 Chronic systolic (congestive) heart failure; J96.10 Chronic respiratory failure, unspecified whether with hypoxia or hypercapnia; R00.0 Tachycardia, unspecified; J44.9 Chronic obstructive pulmonary disease, unspecified; M79.7 Fibromyalgia; E78.5 Hyperlipidemia, unspecified; K21.9 Gastro-esophageal reflux disease without esophagitis; I11.0 Hypertensive heart disease with heart failure; Z79.52 Long term (current) use of systemic steroids; Z79.899 Other long term (current) drug therapy; Z87.891 Personal history of nicotine dependence; Z99.81 Dependence on supplemental oxygen

== ENCOUNTER → 2017-09-04 | Outpatient (CLI) | payer OTHER ==
[~2017-09-04] MED LIST changes: -CMD5 PO; +CZR25 PO; +METO-478 PO; -PRD10 PO; -ROFL1TAB5 PO
== END | disposition home or self-care (01) ==
LOC: C.RC 10:59
PROVIDERS: ATTEND Physician Assistant
DX: R06.02 Shortness of breath (principal)

== ENCOUNTER → 2017-10-22 | Outpatient (CLI) | payer OTHER ==
[~2017-10-22] MED LIST changes: +OPTIRAY 320 IV PRN
--- NOTE | 2017-10-22 15:05 | DIAGNOSTIC IMAGING REPORT ---
CT OF THE CHEST WITH IV CONTRAST CLINICAL HISTORY: J44.9 Chronic obstructive pulmonary [id number] COPD with exacerbation. Left-sided chest pain. COMPARISON STUDY: 11/13/2014 TECHNIQUE: Following the IV administration of 94 mL of Optiray-320, CT of the thorax was performed from the thoracic inlet to the lung bases. Images are reviewed in the axial, sagittal, and coronal planes. IV contrast was administered without complication. A dose lowering technique was utilized adhering to the principles of ALARA. CT DOSE: 427.83 mGy.cm FINDINGS: Thyroid: Imaged portions of the thyroid gland are normal in appearance. Thoracic aorta: The thoracic aorta is normal in course and caliber, noting standard 3-vessel arch anatomy. No aneurysm or dissection is seen. Pulmonary vasculature: The pulmonary trunk is normal in caliber. There are no central filling defects identified to suggest pulmonary embolus. Note that this examination was not protocoled for the evaluation of pulmonary emboli. HEART: There are coronary artery calcifications present. Lungs and pleural spaces: There is stable tree-in-bud nodularity within the left apex, likely postinflammatory. There is a second focus of tree-in-bud nodularity within the left upper lobe, also similar to the prior study and likely postinflammatory. There is lingular atelectasis. There is no lobar consolidation. There are subsegmental atelectatic changes in the right middle lobe. There are no significant pleural effusions. Mediastinum: There is no mediastinal lymphadenopathy. Thelma: There is no evidence of pathologic hilar adenopathy Axilla: There is no nodes of pathologic axillary lymphadenopathy Upper abdomen: Partially visualized upper abdominal viscera is within normal limits. Skeletal structures: There are no lytic or blastic osseous lesions. IMPRESSION: 1. No evidence of pathologic adenopathy 2. Stable areas of left upper lobe tree-in-bud nodularity, consistent with a postinflammatory etiology 3. No evidence of acute parenchymal consolidation. Electronically signed by: Darrian Montanez M.D. 10/22/2017 3:03 PM Dictated Date/Time: 10/22/2017 2:58 PM
== END | disposition home or self-care (01) ==
LOC: C.CTS 14:28
PROVIDERS: ATTEND Physician Assistant
DX: J44.1 Chronic obstructive pulmonary disease with (acute) exacerbation (principal); R91.8 Other nonspecific abnormal finding of lung field

== ENCOUNTER → 2017-10-25 | Outpatient (CLI) | payer OTHER ==
[~2017-10-25] MED LIST changes: -OPTIRAY 320 IV PRN
[2017-10-25 15:03] LABS: BLOOD UREA NITROGEN 16 mg/dl (7-18); CALCIUM 9.6 mg/dl (8.5-10.1); CARBON DIOXIDE 37 mmol/L (21-32); CREATININE 0.78 mg/dl (0.60-1.20); GLUCOSE 92 mg/dl (70-99); POTASSIUM 4.2 mmol/L (3.5-5.1); SODIUM 139 mmol/L (136-145)
== END | disposition home or self-care (01) ==
LOC: C.LAB1850 13:20
PROVIDERS: ATTEND Physician Assistant
DX: J44.1 Chronic obstructive pulmonary disease with (acute) exacerbation (principal); R06.02 Shortness of breath

== ENCOUNTER 2018-01-04 10:42 | Inpatient (IN) | payer OTHER ==
[~2018-01-04] VITALS: Ht 157.5 cm; Wt 79.3 kg
[2018-01-04] VITALS (9 sets, daily range): BP systolic 129–143; BP diastolic 67–80; PULSE 100–122; TEMP 36.3–36.9; O2SAT 94–100; Ht 157.5 cm; Wt 79.3 kg
[2018-01-04] MEDS ORDERED: ALBUTEROL 0.083% NEBU SOLN 3 ML VIAL INH STA ×2 (11:19→12:55)
[2018-01-04] MEDS ORDERED: METHYLPREDNISOLONE 125 MG VIAL IV STA (11:19)
[2018-01-04] MEDS ORDERED: LEVAQUIN 750MG / 150ML D5W IV ONE (11:30)
[2018-01-04 11:53] LABS: BASO % 0.1 %; BASO ABS # 0.02 K/uL (0-0.2); HEMATOCRIT 40.8 % (37-47); HEMOGLOBIN 13.4 g/dL (12.0-16.0); IG# 0.04 K/uL (0.00-0.02); LYMPH ABS # 0.44 K/uL (1.2-3.4); MEAN CELL VOLUME 88.5 fL (80-100); MEAN CORPUSCULAR HEMOGLOBIN 29.1 pg (25-34); MEAN CORPUSCULAR HGB CONC 32.8 g/dl (32-36); MEAN PLATELET VOLUME 10.9 fL (7.4-10.4); MONO % 11.1 %; MONO ABS # 1.62 K/uL (0.11-0.59); NEUT % 85.5 %; NEUT ABS # 12.48 K/uL (1.4-6.5); PLATELET COUNT 213 K/uL (130-400); RED CELL DISTRIBUTION WIDTH CV 13.9 % (11.5-14.5)
--- NOTE | 2018-01-04 12:02 | DIAGNOSTIC IMAGING REPORT ---
CHEST ONE VIEW PORTABLE CLINICAL HISTORY: Cough, respiratory distress, dyspnea. COMPARISON STUDY: 07/05/2017 FINDINGS: The heart is normal in size. There is mild diffuse elevation of the interstitium, secondary to either mild pulmonary vascular congestion or an interstitial inflammatory process.. Clinical and radiographic follow-up is recommended.[There are no significant pleural effusions. IMPRESSION: 1. Normal cardiac size 2. Diffuse elevation of the interstitium. This could be secondary to either mild pulmonary vascular congestion, or an interstitial inflammatory process. Clinical and radiographic follow-up is recommended. Electronically signed by: Darrian Montanez M.D. 01/04/2018 12:00 PM Dictated Date/Time: 01/04/2018 11:57 AM
[2018-01-04 12:10] LABS: ALBUMIN 3.2 gm/dl (3.4-5.0); ALT/SGPT 14 U/L (12-78); BLOOD UREA NITROGEN 14 mg/dl (7-18); CALCIUM 9.3 mg/dl (8.5-10.1); CARBON DIOXIDE 33 mmol/L (21-32); CREATININE 0.63 mg/dl (0.60-1.20); GLUCOSE 155 mg/dl (70-99); POTASSIUM 3.7 mmol/L (3.5-5.1); SODIUM 134 mmol/L (136-145)
[2018-01-04 12:14] LABS: INR 1.1 (0.9-1.1); PTT PATIENT 29.2 SECONDS (21.0-31.0)
[2018-01-04 12:15] LABS: ALKALINE PHOSPHATASE 96 U/L (45-117); AST/SGOT 14 U/L (15-37); TOTAL PROTEIN 7.7 gm/dl (6.4-8.2)
[2018-01-04 12:17] LABS: INFLUENZA B ANTIGEN Neg for Influ B (NEG)
[2018-01-04] MEDS ORDERED: MAGNESIUM HYDROXIDE SUSP 30 ML UDC PO PRN (13:15)
[2018-01-04] MEDS ORDERED: POLYETHYLENE (MIRALAX) 17 GM PACK PO PRN (13:15)
[2018-01-04] MEDS ORDERED: NITROGLYCERIN 0.4 MG SL PER TAB CHARGE SL PRN (13:15)
[2018-01-04] MEDS ORDERED: ALUMINUM/MAGNESIUM/SIMETH (MAALOX MAX) 30 ML UDC PO PRN (13:15)
[2018-01-04] MEDS ORDERED: ONDANSETRON INJ 2 MG/ML 2 ML VIAL IV PRN (13:15)
[2018-01-04] MEDS ORDERED: ACETAMINOPHEN 325 MG TAB PO PRN (13:15)
[2018-01-04] MEDS ORDERED: LPT40 PO (14:46)
[2018-01-04] MEDS ORDERED: ASPI-435 PO (14:46)
[2018-01-04] MEDS ORDERED: CALC500C3 PO (14:46)
[2018-01-04] MEDS ORDERED: TRAMADOL HCL 50 MG TAB PO PRN (15:00)
[2018-01-04] MEDS ORDERED: ALBUTEROL HFA 8 GM INHALER INH PRN (15:00)
--- NOTE | 2018-01-04 15:19 | EMERGENCY ROOM VISIT NOTE ---
History Report prepared by Aicha: Bello Jones Under the Supervision of: Dr. Shon Lopez D.O. First contact with patient: 11:05 Chief Complaint: COUGH Stated Complaint: COUGHING Nursing Triage Summary: patient c/o cough, headache, nausea. "I have been spitting up green." History of Present Illness The patient is a 72 year old female with a history of COPD who presents to the Emergency Room with complaints of a persistent illness that started 3 days ago. She states that she started with a cough and runny nose, as well as a sore throat. The patient notes that she normally wears 3 liters only at night, but she had her oxygen increased to 3.5 liters all day and night since the illness started. She adds that she has been nauseous, and is currently nauseous. She notes that she is spitting up green phlegm. The patient says that her temperature has been around 99, but she denies any fevers above 100.4. Sharp pain is present in her chest with coughing. Source of History: patient Onset: 3 days ago Position: other (global ) Quality: other (illness) Timing: other (persistent) Associated Symptoms: + sorethroat, + cough (and runny nose ), + nausea, No fevers Note: Associated symptoms: Spitting up green phlegm. Review of Systems See HPI for pertinent positives & negatives. A total of 10 systems reviewed and were otherwise negative. Past Medical & Surgical Medical Problems: (1) BCC (basal cell carcinoma of skin) (2) COPD (chronic obstructive pulmonary disease) (3) Dyslipidemia (4) Fibromyalgia (5) GERD (gastroesophageal reflux disease) (6) GI bleed (7) Hypertension (8) Hypoxia (9) Osteoporosis (10) Reduced ejection fraction concurrent with and due to chronic heart failure (11) Respiratory failure, [id number] Surgical Problems: (1) History of cyst removal left breast (2) Hx of cataract surgery (3) S/P Mohs surgery for basal cell carcinoma (4) Status post appendectomy (5) Status post hysterectomy (6) Status post repair of ventral hernia Family History FH: prostate cancer FATHER Social History Smoking Status: Former Smoker Alcohol Use: none Housing Status: lives alone Current/Historical Medications Scheduled Aspirin (Aspirin 81), 1 TAB PO DAILY Atorvastatin (Lipitor), 1 TAB PO HS Budesonide/Formoterol Fumarate (Symbicort 160/4.5 Inhaler), 2 PUFFS INH BID Calcium Carbonate (Tums), 1.5 TABS PO DAILY Diclofenac Sodium (Topical) (Voltaren 1% Top Gel), 1 APPLN TD BID Furosemide (Lasix), 20 MG PO Q2D Home O2 Therapy (Oxygen), 2 LITERS NA PRN Losartan Potassium (Losartan Potassium), 25 MG PO QPM Metoprolol Succinate (Toprol Xl), 25 MG PO DAILY Omeprazole (Prilosec), 20 MG PO QAM Potassium Chloride (K-Tabs), 10 MEQ PO Q2D Tiotropium [place] (Spiriva Handihaler), 1 PUFF INH DAILY Scheduled PRN Albuterol Hfa (Ventolin Hfa), 2 PUFFS INH Q4H PRN for SOB/Wheezing Ipratropium-Albuterol (Duoneb), 1 TREATMENT INH Q4H PRN for SOB/Wheezing Tramadol HCl (Tramadol HCl), 50 MG PO TID PRN for Pain Allergies Coded Allergies: Duloxetine (Verified Allergy, Intermediate, RASH, 01/04/18) CI Pigment Blue 63 (Verified Allergy, Unknown, RASH, 01/04/18) Naproxen (Verified Adverse Reaction, Mild, GI SYMPTOMS, 01/04/18) Physical Exam Vital Signs Date Time Temp Pulse Resp B/P (MAP) Pulse Ox O2 Delivery O2 Flow Rate FiO2 01/04/18 12:30 124 24 122/83 97 Nasal Cannula 3.0 01/04/18 12:11 130 01/04/18 11:31 96 Nasal Cannula 2.0 01/04/18 10:59 37.4 122 22 139/69 94 Nasal Cannula Physical Exam GENERAL: Sitting up in bed with a dry nonproductive cough on nasal cannula, disheveled, dyspneic with conversation EYE EXAM: normal conjunctiva. OROPHARYNX: no exudate, no erythema, lips, buccal mucosa, and tongue normal and mucous membranes are moist NECK: supple, no nuchal rigidity, no adenopathy, non-tender LUNGS: Poor air movement bilaterally. Normal chest wall mechanics HEART: Tachycardic, no murmurs, S1 normal and S2 normal ABDOMEN: abdomen soft, non-tender, normo-active bowel sounds, no masses, no rebound or guarding. BACK: Back is symmetrical on inspection and there is no deformity, no midline tenderness, no CVA tenderness. SKIN: no rashes and no bruising UPPER EXTREMITIES: upper extremities are grossly normal. LOWER EXTREMITIES: calves equal bilaterally NEURO EXAM: Normal sensorium, cranial nerves II-XII grossly intact, normal speech, no gross weakness of arms, no gross weakness of legs. Medical Decision & Procedures ER Provider Diagnostic Interpretation: X-ray results as stated below per my review and the radiologist's interpretation : CHEST ONE VIEW PORTABLE CLINICAL HISTORY: Cough, respiratory distress, dyspnea. COMPARISON STUDY: 07/05/2017 FINDINGS: The heart is normal in size. There is mild diffuse elevation of the interstitium, secondary to either mild pulmonary vascular congestion or an interstitial inflammatory process.. Clinical and radiographic follow-up is recommended.[There are no significant pleural effusions. IMPRESSION: 1. Normal cardiac size 2. Diffuse elevation of the interstitium. This could be secondary to either mild pulmonary vascular congestion, or an interstitial inflammatory process. Clinical and radiographic follow-up is recommended. Electronically signed by: Darrian Montanez M.D. 01/04/2018 12:00 PM Dictated Date/Time: 01/04/2018 11:57 AM Laboratory Results 01/04/18 11:40 Red Blood Count 4.61, Mean Corpuscular Volume 88.5, Mean Corpuscular Hemoglobin 29.1, Mean Corpuscular Hemoglobin Concent 32.8, Mean Platelet Volume 10.9, Neutrophils (%) (Auto) 85.5, Lymphocytes (%) (Auto) 3.0, Monocytes (%) (Auto) 11.1, Eosinophils (%) (Auto) 0.0, Basophils (%) (Auto) 0.1, Neutrophils # (Auto ) 12.48, Lymphocytes # (Auto) 0.44, Monocytes # (Auto) 1.62, Eosinophils # (Auto ) 0.00, Basophils # (Auto) 0.02 01/04/18 11:40 Test 01/04/18 11:40 White Blood Count 14.60 K/uL (4.8-10.8) Red Blood Count 4.61 M/uL (4.2-5.4) Hemoglobin 13.4 g/dL (12.0-16.0) Hematocrit 40.8 % (37-47) Mean Corpuscular Volume 88.5 fL (80-100) Mean Corpuscular Hemoglobin 29.1 pg (25-34) Mean Corpuscular Hemoglobin Concent 32.8 g/dl (32-36) Platelet Count 213 K/uL (130-400) Mean Platelet Volume 10.9 fL (7.4-10.4) Neutrophils (%) (Auto) 85.5 % Lymphocytes (%) (Auto) 3.0 % Monocytes (%) (Auto) 11.1 % Eosinophils (%) (Auto) 0.0 % Basophils (%) (Auto) 0.1 % Neutrophils # (Auto) 12.48 K/uL (1.4-6.5) Lymphocytes # (Auto) 0.44 K/uL (1.2-3.4) Monocytes # (Auto) 1.62 K/uL (0.11-0.59) Eosinophils # (Auto) 0.00 K/uL (0-0.5) Basophils # (Auto) 0.02 K/uL (0-0.2) RDW Standard Deviation 45.0 fL (36.4-46.3) RDW Coefficient of Variation 13.9 % (11.5-14.5) Immature Granulocyte % (Auto) 0.3 % Immature Granulocyte # (Auto) 0.04 K/uL (0.00-0.02) Prothrombin Time 11.4 SECONDS (9.0-12.0) Prothromb Time International Ratio 1.1 (0.9-1.1) Activated Partial Thromboplast Time 29.2 SECONDS (21.0-31.0) Partial Thromboplastin Ratio 1.1 D-Dimer 640 ug/L FEU (0-500) Anion Gap 6.0 mmol/L (3-11) Est Creatinine Clear Calc Drug Dose 79.0 ml/min Estimated GFR () 102.4 Estimated GFR (Non- 88.4 BUN/Creatinine Ratio 21.7 (10-20) Calcium Level 9.3 mg/dl (8.5-10.1) Total Bilirubin 1.4 mg/dl (0.2-1) Aspartate Amino Transf (AST/SGOT) 14 U/L (15-37) Alanine Aminotransferase (ALT/SGPT) 14 U/L (12-78) Alkaline Phosphatase 96 U/L (45-117) Troponin I < 0.015 ng/ml (0-0.045) Pro-B-Type Natriuretic Peptide 548 pg/ml (0-900) Total Protein 7.7 gm/dl (6.4-8.2) Albumin 3.2 gm/dl (3.4-5.0) Globulin 4.5 gm/dl (2.5-4.0) Albumin/Globulin Ratio 0.7 (0.9-2) Procalcitonin 0.34 ng/ml (0-0.5) Influenza Type A Antigen Neg for Influ A (NEG) Influenza Type B Antigen Neg for Influ B (NEG) Laboratory results per my review. Medications Administered Medications (Trade) Dose Ordered Sig/Racheal Route Start Time Stop Time Status Last Admin Dose Admin Albuterol Sulfate (Ventolin 0.083% 2.5MG/3ML Neb) 5 mg NOW STAT INH 01/04/18 11:19 01/04/18 11:22 DC 01/04/18 11:33 5 MG Methylprednisolone Sodium Succinate (Solu-Medrol IV) 125 mg NOW STAT IV 01/04/18 11:19 01/04/18 11:22 DC 01/04/18 11:33 125 MG Levofloxacin (Levaquin / D5W) 750 mg NOW ONCE IV 01/04/18 11:30 01/04/18 11:31 DC 01/04/18 11:33 750 MG Albuterol Sulfate (Ventolin 0.083% 2.5MG/3ML Neb) 2.5 mg NOW STAT INH 01/04/18 12:55 01/04/18 12:56 DC 01/04/18 13:00 2.5 MG ECG Per My Interpretation Indication: nausea Rate (beats per minute): 119 Rhythm: sinus tachycardia Findings: other (poor baseline, nonspecific ST T-wave changes inferior leads) ED Course ED COURSE: Vital signs were reviewed and showed tachycardic vitals. The patients medical record was reviewed The above diagnostic studies were performed and reviewed. ED treatments and interventions as stated above. 1110: The patient was evaluated in room C10. A complete history and physical examination was performed. 1119: Solu-Medrol IV 125 mg IV, Ventolin 0.083% 2.5MG/3ML Neb 5 mg INH. 1130: Levaquin / D5W 750 mg IV. 1255: Ventolin 0.083% 2.5MG/3ML Neb 2.5 mg INH. 1256: Upon reevaluation, the patient is feeling better.I discussed my findings with the patient and she understands and agrees with the treatment plan. Based on the patients age, coexisting illnesses, exam and lab findings the decision to treat as an inpatient was made. The patient remained stable while under my care. The patient will be evaluated for further management. 1258: I reviewed the patient's case with Sommer Du. She will evaluate the patient for further management. Medical Decision Differential diagnoses includes but is not limited to pneumonia, bronchitis, COPD/Asthma exacerbation, pneumothorax, pulmonary embolism, congestive heart failure, acute coronary syndrome. Patient is a 72-year-old female with a past medical history of COPD that presents to the ER for shortness of breath associated with a green productive cough. Symptoms have been worsening over the past several days. Upon presentation she is tachycardic into the 120s-130s. She is hypoxic to 83% on room air. She was given 3 L nasal cannula. Labs are remarkable for a leukocytosis of 14. BMP along with LFTs and troponin was unremarkable. Influenza was negative. Chest x-ray shows no obvious focal infiltrate. Patient was given neb treatments, Levaquin and steroids. She was updated at bedside. She was admitted to internal medicine with hypoxia secondary to a COPD exacerbation and bronchitis on nasal cannula. Medication Reconcilliation Current Medication List: was personally reviewed by me Blood Pressure Screening Patient's blood pressure: Normal blood pressure Consults Time Called: 2131 Consulting Physician: Sommer Du Returned Call: 1250 I reviewed the patient's case with Sommer Du. She will evaluate the patient for further management. Impression Primary Impression: COPD exacerbation Additional Impressions: Hypoxia Tachycardia Scribe Attestation The scribe's documentation has been prepared under my direction and personally reviewed by me in its entirety. I confirm that the note above accurately reflects all work, treatment, procedures, and medical decision making performed by me. Departure Information Dispostion Being Evaluated By Hospitalist Russ Alcala M.D. (PCP) Patient Instructions My [facility] Problem Qualifiers
[2018-01-04] MEDS: METHYLPREDNISOLONE IV 40 MG in SYRINGE 0 ML IV SCH ×2 (15:35→22:07)
[2018-01-04] MEDS: CEFTRIAXONE SOD INJ 1 GM in DEXTROSE 5% ADD-VANTAGE 50ML 50 ML IV SCH (15:35)
[2018-01-04] MEDS: IPRATROPIUM BROMIDE NEB SOLN 0.02% 2.5 ML VIAL INH SCH ×3 (15:39→23:22)
[2018-01-04] MEDS: LEVALBUTEROL 1.25MG/0.5ML NEB INH SCH ×3 (15:39→23:22)
--- NOTE | 2018-01-04 15:40 | History and Physical ---
History & Physical Date & Time of Service: Jan 04, 2018 at 13:30 Chief Complaint: Copd, Hypoxia, Respiratory Failure,[id number] Primary Care Physician: Russ Moon M.D. History of Present Illness Source: patient, clinic records, hospital records Patient is a 72-year-old female with a past medical history of COPD (2-3L O2 at night), HTN, systolic CHF, chronic sinus tachycardia and other medical problems listed below who presents with worsening shortness of breath x 3 days. Initial symptoms included a dry cough, runny nose and sore throat, but over the next few days cough became productive with green sputum and patient became short of breath at rest. At baseline, patient requires 2-3 L nasal cannula O2 at night but has been requiring up to 3L during the day over the past few days. Denies fever, chills, body aches. Follows with Amadou Chauhan PA-C in pulmonology clinic. Has been using home inhalers and nebulized areas as directed with some relief. Denies lightheadedness, headache, visual changes, chest pain, abdominal pain, nausea, vomiting, bowel or bladder changes or LE swelling. Has been taking all medications as prescribed. Past Medical/Surgical History Medical Problems: (1) BCC (basal cell carcinoma of skin) Permanent Comment: s/p MOHS surgery Status: Chronic (2) Chronic respiratory failure with hypoxia Status: Chronic (3) COPD (chronic obstructive pulmonary disease) Status: Chronic (4) Dyslipidemia Status: Chronic (5) Fibromyalgia Status: Chronic (6) GERD (gastroesophageal reflux disease) Status: Chronic (7) Hypertension Status: Chronic (8) Osteoporosis Status: Chronic (9) Sinus tachycardia Status: Chronic (10) Systolic heart failure Status: Chronic Surgical Problems: (1) History of cyst removal left breast Status: Chronic (2) Hx of cataract surgery Status: Chronic (3) S/P Mohs surgery for basal cell carcinoma Status: Chronic (4) Status post appendectomy Status: Chronic (5) Status post hysterectomy Status: Chronic (6) Status post repair of ventral hernia Status: Chronic Family History FH: prostate cancer FATHER Social History Smoking Status: Former Smoker (quit in 2003) Alcohol Use: none Housing status: lives alone Immunizations History of Influenza Vaccine: Yes Influenza Vaccine Date: Aug 24, 2015 History of Tetanus Vaccine?: Yes Tetanus Immunization Date: Jan 20, 2014 History of Pneumococcal: Yes Pneumococcal Date: Dec 13, 2014 History of Hepatitis B Vaccine: No Allergies Coded Allergies: Duloxetine (Verified Allergy, Intermediate, RASH, 01/04/18) CI Pigment Blue 63 (Verified Allergy, Unknown, RASH, 01/04/18) Naproxen (Verified Adverse Reaction, Mild, GI SYMPTOMS, 01/04/18) Home Medications Scheduled Aspirin (Aspirin 81), 1 TAB PO DAILY Atorvastatin (Lipitor), 1 TAB PO HS Budesonide/Formoterol Fumarate (Symbicort 160/4.5 Inhaler), 2 PUFFS INH BID Calcium Carbonate (Tums), 1.5 TABS PO DAILY Diclofenac Sodium (Topical) (Voltaren 1% Top Gel), 1 APPLN TD BID Furosemide (Lasix), 20 MG PO Q2D Home O2 Therapy (Oxygen), 2 LITERS NA PRN Losartan Potassium (Losartan Potassium), 25 MG PO QPM Metoprolol Succinate (Toprol Xl), 25 MG PO DAILY Omeprazole (Prilosec), 20 MG PO QAM Potassium Chloride (K-Tabs), 10 MEQ PO Q2D Tiotropium [place] (Spiriva Handihaler), 1 PUFF INH DAILY Scheduled PRN Albuterol Hfa (Ventolin Hfa), 2 PUFFS INH Q4H PRN for SOB/Wheezing Ipratropium-Albuterol (Duoneb), 1 TREATMENT INH Q4H PRN for SOB/Wheezing Tramadol HCl (Tramadol HCl), 50 MG PO TID PRN for Pain Review of Systems Ten systems reviewed and negative except as noted in the HPI. Physical Exam Vital Signs Date Time Temp Pulse Resp B/P (MAP) Pulse Ox O2 Delivery O2 Flow Rate FiO2 01/04/18 14:09 36.3 122 22 129/67 96 Nasal Cannula 3.0 01/04/18 13:45 37.4 125 24 118/56 96 01/04/18 13:30 125 24 118/56 96 Nasal Cannula 3.0 01/04/18 12:30 124 24 122/83 97 Nasal Cannula 3.0 01/04/18 12:11 130 01/04/18 11:31 96 Nasal Cannula 2.0 01/04/18 10:59 37.4 122 22 139/69 94 Nasal Cannula General Appearance: WD/WN, no apparent distress, + pertinent finding ( Conversational, no respiratory distress) Head: normocephalic, atraumatic Eyes: normal inspection, PERRL, sclerae normal ENT: normal ENT inspection, hearing grossly normal, pharynx normal, + nasal congestion Neck: supple, no adenopathy, no JVD, trachea midline Respiratory/Chest: chest non-tender, no respiratory distress, no accessory muscle use, + decreased breath sounds, + wheezing (Diffuse wheezing throughout lung ambriz) Cardiovascular: no murmur, normal peripheral pulses, + tachycardia Abdomen/GI: non tender, soft, no organomegaly Back: normal inspection Extremities/Musculoskelatal: normal inspection, no calf tenderness, no pedal edema Neurologic/Psych: no motor/sensory deficits, alert, normal mood/affect, oriented x 3 Skin: normal color, warm/dry, no rash Diagnostics Laboratory Results Results Past 24 Hours Test 01/04/18 11:40 01/04/18 13:34 Range/Units White Blood Count 14.60 4.8-10.8 K/uL Red Blood Count 4.61 4.2-5.4 M/uL Hemoglobin 13.4 12.0-16.0 g/dL Hematocrit 40.8 37-47 % Mean Corpuscular Volume 88.5 80-100 fL Mean Corpuscular Hemoglobin 29.1 25-34 pg Mean Corpuscular Hemoglobin Concent 32.8 32-36 g/dl Platelet Count 213 130-400 K/uL Mean Platelet Volume 10.9 7.4-10.4 fL Neutrophils (%) (Auto) 85.5 % Lymphocytes (%) (Auto) 3.0 % Monocytes (%) (Auto) 11.1 % Eosinophils (%) (Auto) 0.0 % Basophils (%) (Auto) 0.1 % Neutrophils # (Auto) 12.48 1.4-6.5 K/uL Lymphocytes # (Auto) 0.44 1.2-3.4 K/uL Monocytes # (Auto) 1.62 0.11-0.59 K/uL Eosinophils # (Auto) 0.00 0-0.5 K/uL Basophils # (Auto) 0.02 0-0.2 K/uL RDW Standard Deviation 45.0 36.4-46.3 fL RDW Coefficient of Variation 13.9 11.5-14.5 % Immature Granulocyte % (Auto) 0.3 % Immature Granulocyte # (Auto) 0.04 0.00-0.02 K/uL Prothrombin Time 11.4 9.0-12.0 SECONDS Prothromb Time International Ratio 1.1 0.9-1.1 Activated Partial Thromboplast Time 29.2 21.0-31.0 SECONDS Partial Thromboplastin Ratio 1.1 D-Dimer 640 0-500 ug/L FEU Sodium Level 134 136-145 mmol/L Potassium Level 3.7 3.5-5.1 mmol/L Chloride Level 95 98-107 mmol/L Carbon Dioxide Level 33 21-32 mmol/L Anion Gap 6.0 3-11 mmol/L Blood Urea Nitrogen 14 7-18 mg/dl Creatinine 0.63 0.60-1.20 mg/dl Est Creatinine Clear Calc Drug Dose 79.0 ml/min Estimated GFR () 102.4 Estimated GFR (Non- 88.4 BUN/Creatinine Ratio 21.7 10-20 Random Glucose 155 70-99 mg/dl Calcium Level 9.3 8.5-10.1 mg/dl Total Bilirubin 1.4 0.2-1 mg/dl Aspartate Amino Transf (AST/SGOT) 14 15-37 U/L Alanine Aminotransferase (ALT/SGPT) 14 12-78 U/L Alkaline Phosphatase 96 45-117 U/L Troponin I < 0.015 0-0.045 ng/ml Pro-B-Type Natriuretic Peptide 548 0-900 pg/ml Total Protein 7.7 6.4-8.2 gm/dl Albumin 3.2 3.4-5.0 gm/dl Globulin 4.5 2.5-4.0 gm/dl Albumin/Globulin Ratio 0.7 0.9-2 Procalcitonin 0.34 0-0.5 ng/ml Influenza Type A Antigen Neg for Influ A NEG Influenza Type B Antigen Neg for Influ B NEG Arterial Blood pH 7.40 7.35-7.45 Arterial Blood Partial Pressure CO2 54 35-46 mmHg Arterial Blood Partial Pressure O2 63 80-95 mm/Hg Arterial Blood HCO3 32 19-24 mmol/L Arterial Blood Oxygen Saturation 92.1 90-95 % Arterial Blood Base Excess 6.0 -9-1.8 mEq/L Arterial Blood Gas Delivery 3 L Clarence Test POS POS Lactic Acid Level 2.3 0.4-2.0 mmol/L Diagnostic Radiology CXR: IMPRESSION: 1. Normal cardiac size 2. Diffuse elevation of the interstitium. This could be secondary to either mild pulmonary vascular congestion, or an interstitial inflammatory process. Clinical and radiographic follow-up is recommended. EKG Sinus tachycardia at [address] abnormality. Impression Assessment and Plan Patient is a 72-year-old female with a past medical history of COPD (2-3L O2 at night), HTN, systolic CHF, chronic sinus tachycardia and other medical problems listed below who presents with worsening shortness of breath x 3 days. Acute on chronic hypoxic respiratory failure: -2/2 COPD exacerbation, underlying URI -Requires 2-3 L O2 HS chronically -Has also been requiring 2-3 L O2 over the last few days -83% on room air initially. Now saturating in high 90s on 3 L NC -ABG with compensated respiratory acidosis -pH of 7.4, pCO2 of 54, pO2 of 63, bicarb of 32 -Refuses BiPAP due to claustrophobia -Continue NC oxygen -Continue to monitor closely COPD exacerbation: -2/2 underlying URI -Flu ag negative -CXR without evidence of PNA -IV steroids, neb treatments, Rocephin and Zithromax -Continue Spiriva, Symbicort, albuterol PRN -Blood and sputum cultures pending -Pro calcitonin within normal limits -Lactic acid elevated to 2.3 -Gentle IVF in setting of CHF. Repeat lactic in 4 hours -Pulm consulted HTN: -Normotensive -Continue losartan, Lasix, metoprolol Systolic CHF: -Compensated on exam -Most recent echo with improvement, EF of 58% -Continue losartan, Lasix, metoprolol -Low Na diet Chronic sinus tachycardia: --2/2 pulmonary disease -Previous EKGs with HR: 120s -D dimer slightly elevated to 640 -Chest/thorax CTA pending Chronic back pain, fibromyalgia: -Cont tramadol PRN GERD: -Continue PPI DVT Ppx: SQ heparin Code status: FULL PCP: Red Dispo: Admitted to telemetry. Plan to return home once medically stable. Patient seen in collaboration with Dr. Taylor. Please see addendum. ATTENDING ADDENDUM: Patient seen and examined care coordinated with Sommer Cherry PA-C 72-year-old female with advanced COPD/chronic respiratory failure on 2-3 L of oxygen at night, hypertension systolic CHF chronic sinus tachycardia next presented to ER with worsening shortness of breath for last 3 days Physical exam: Please refer to the physical exam by Sommer Cherry PA-C Assessment and plan: Acute on chronic hypoxemic respiratory failure: Due to COPD exacerbation Continue IV steroids neb treatment Supplemental O2 Pulmonology eval requested Hypertension: Continue losartan Lasix metoprolol chronic systolic CHF recent echo 11/2017 shows Ejection fraction of 58% Continue losartan Lasix Full code Please refer to for the documentation by Sommer Cherry PA-C for discussion of other chronic issues. Flora Taylor MD Advanced Directives Existing Living Will: Yes Existing Power of Student Services Coordinator: Yes Resuscitation Status VTE Prophylaxis Will order VTE Prophylaxis: Yes
[2018-01-04] MEDS ORDERED: OPTIRAY 320 IV PRN (16:00)
[2018-01-04] MEDS ORDERED: LACTATED RINGER'S 1000ML 1,000 ML IV SCH (16:30)
[2018-01-04] MEDS: AZITHROMYCIN IV 500 MG in DEXTROSE 5% 250ML 250 ML IV SCH (16:33)
--- NOTE | 2018-01-04 16:35 | DIAGNOSTIC IMAGING REPORT ---
(CHEST FOR PE) ANGIO WITH CLINICAL HISTORY: 72 years-old Female presenting with ^ELEVATED D DIMER /SOB /R/O PE, respiratory failure, acute COPD. TECHNIQUE: Multidetector CT angiography of the chest was performed after administration of intravenous contrast. 3-D volumetric and/or maximum intensity projection (MIP) images were subsequently reconstructed for review. IV contrast: 77 mL of Optiray 320. A dose lowering technique was used consistent with the principles of ALARA (as low as reasonably achievable). COMPARISON: 10/22/2017. CT DOSE (mGy.cm): The estimated cumulative dose is 547.62 mGy.cm. FINDINGS: Binder Coverstitch topogram: Unremarkable. Pulmonary vasculature: The study is adequate for assessment of the pulmonary vascular tree. No filling defect within the pulmonary arteries to suggest embolus. Main pulmonary artery is not enlarged. No flattening of the interventricular septum. No intracardiac filling defect. No reflux of contrast into the hepatic veins. Remaining chest: On soft tissue windows, normal thyroid and thoracic inlet. No axillary, supraclavicular, hilar, or mediastinal lymphadenopathy. Atherosclerosis of the aorta. Normal heart size. Coronary artery calcification. No pericardial or pleural effusion. Upper abdomen normal. On lung windows, significant interval increase in now widespread tree-in-bud opacities involve all 5 lobes in both the dependent and nondependent regions. Bronchial wall thickening evident. Scattered debris and subsegmental airways of the lower lobes. No convincing evidence of bronchiectasis. More nodular consolidation noted dependently in the lower lobes. Minimal debris in the trachea. On bone windows, degenerative changes of the spine. Slightly exaggerated thoracic kyphosis. IMPRESSION: 1. Significant interval increase in now widespread tree-in-bud opacities involving all 5 lobes. This is most suspicious for endobronchial spread of infection (for example microbacterium tuberculosis, mycobacterium avium complex, fungal pneumonia, or PJP/PCP). Less likely this could could represent aspiration or have a neoplastic etiology if there is a known malignancy. 2. No pulmonary embolus. The report will be called/faxed according to standard departmental protocol. Electronically signed by: Russ Nieves M.D. 01/04/2018 4:33 PM Dictated Date/Time: 01/04/2018 4:25 PM
--- NOTE | 2018-01-04 17:01 | Pulmonary Consultation ---
History General Date of Service: Jan 04, 2018. Stated Complaint: Copd, Hypoxia, Respiratory Failure,Pagzd-Lm-Jigirw HPI Dear Dr. Taylor: Thank you for your kind referral of Mrs. Ramos to pulmonary service. Mrs. Ramos is a 72-year-old female with a history of COPD, home O2 dependent, has been maintained on 2 inhalers, diagnosed in 2003 where she quit smoking at that time, has 2 exacerbations throughout the years requiring admission to the hospital. The patient presented to the hospital with increasing shortness of breath even with minimal exertion. The patient was poor historian and could not answer the questions in a straightforward until the patient had the question being rephrased in 2-3 different ways. The patient shortness of breath has been escalating for the past year or so. She noted also that going flight of stairs does affect her breathing. She denies any chest pain per se. She does have persistent cough no sputum production. No hemoptysis was reported. No orthopnea and no paroxysmal nocturnal dyspnea was reported. She has no swelling in her lower extremities. The patient denies any water breakage in her house, she does not have any recent travel and no exposure to sick people around her. The patient did not have any change in bowel movements or urine habits, no dysphagia and no difficulty swallowing. She has been seen in the past by Dr. Valdovinos and also has been seen by Dr. Olivo according to her from [facility]. She was diagnosed with COPD in 2003 and started on oxygen and 2007. The patient did not have any recent exacerbation. She has been taking her medications religiously. When I interviewed the patient , she appeared to be poor historian, she was able to answer the questions but I have to bring the question in 2 or 3 different ways in order for her to answers. Shortly after the patient went to CAT scan of the chest which I reviewed myself revealing no PE, but there is progression of gordon bronchiolitis including tree-in-bud appearance. She denies any heartburn. No indigestion. The rest of her review of system was unremarkable. Review of Systems Constitutional: reports: no symptoms Cardiovascular: reports: no symptoms Respiratory: reports: cough, shortness of breath, wheezing Gastrointestinal: reports: no symptoms Genitourinary - Female: reports: no symptoms Musculoskeletal: reports: no symptoms Integumentary: reports: no symptoms Neurologic: reports: no symptoms Psychiatric: reports: other (Memory loss.) Endocrine: no symptoms Allergic / Immunologic: no symptoms Past Medical History Past Medical History: As mentioned above with history of COPD, hypertension, hyperlipidemia, Family History FH: prostate cancer FATHER Parent: Cancer, COPD Social History Hx Tobacco Use In Past Year?: No Smoking Status: Former Smoker (quit in 2003) Alcohol: no current use Housing status: lives alone Immunizations History of Influenza Vaccine: Yes Influenza Vaccine Date: Aug 24, 2015 History of Tetanus Vaccine?: Yes Tetanus Immunization Date: Jan 20, 2014 History of Pneumococcal: Yes Pneumococcal Date: Dec 13, 2014 History of Hepatitis B Vaccine: No History of MDRO History of MDRO: Yes Type of MDRO: MRSA Allergies Coded Allergies: Duloxetine (Verified Allergy, Intermediate, RASH, 01/04/18) CI Pigment Blue 63 (Verified Allergy, Unknown, RASH, 01/04/18) Naproxen (Verified Adverse Reaction, Mild, GI SYMPTOMS, 01/04/18) Current Medications Reported Home Medications Medications Dose Route/Sig Max Daily Dose Days Date Category Dose Instructions Tums (Calcium Carbonate) 500 Mg Chew 1.5 Tabs PO DAILY 01/04/18 Reported Lipitor (Atorvastatin Calcium) 40 Mg Tab 1 Tab PO HS 01/04/18 Reported Aspirin 81 (Aspirin) 81 Mg Tab 1 Tab PO DAILY 01/04/18 Reported Losartan Potassium 25 Mg Tab 25 Mg PO QPM 30 07/07/17 Rx Toprol Xl (Metoprolol Succinate) 25 Mg Tab 25 Mg PO DAILY 07/05/17 Reported Oxygen Gas 2 Liters NA PRN 30 06/11/17 Rx Continue as before.May need 3-4 liters on ambulation Voltaren 1% Top Gel (Diclofenac Sodium (Topical)) 1 % Gel 1 Appln TD BID 06/07/17 Reported Prilosec (Omeprazole) 20 Mg Capcr 20 Mg PO QAM 06/07/17 Reported K-Tabs (Potassium Chloride) 10 Meq Tab 10 Meq PO Q2D 06/07/17 Reported Lasix (Furosemide) 20 Mg Tab 20 Mg PO Q2D 06/07/17 Reported Symbicort 160/4.5 Inhaler (Budesonide/Formoterol Fumarate) 120 Puffs/ Aero 2 Puffs INH BID 10/05/16 Reported Ventolin Hfa (Albuterol) 200 Puffs/99572 Mcg Aers 2 Puffs INH Q4H PRN 10/05/16 Reported Spiriva Handihaler (Tiotropium [place]) 30 Puff/540 Mcg Aerp 1 Puff INH DAILY 10/05/16 Reported Tramadol HCl 50 Mg Tab 50 Mg PO TID PRN 10/05/16 Reported Duoneb (Ipratropium-Albuterol) 3 Ml Nebu 1 Treatment INH Q4H PRN 01/09/16 Reported Physical Physical Exam Vital Signs: Date Time Temp Pulse Resp B/P (MAP) Pulse Ox O2 Delivery O2 Flow Rate FiO2 01/04/18 16:14 94 Nasal Cannula 3.0 01/04/18 15:39 110 18 94 Nasal Cannula 3.0 01/04/18 15:32 36.9 112 24 143/80 (101) 94 Nasal Cannula 3.0 01/04/18 14:09 36.3 122 22 129/67 96 Nasal Cannula 3.0 01/04/18 13:45 37.4 125 24 118/56 96 01/04/18 13:30 125 24 118/56 96 Nasal Cannula 3.0 01/04/18 12:30 124 24 122/83 97 Nasal Cannula 3.0 01/04/18 12:11 130 01/04/18 11:31 96 Nasal Cannula 2.0 01/04/18 10:59 37.4 122 22 139/69 94 Nasal Cannula General Appearance: WELL-APPEARING, NO APPARENT DISTRESS Eyes: PERRLA, EOMI ENT: NORMAL MOUTH EXAM, NORMAL THROAT EXAM Neck: NORMAL RANGE OF MOTION Respiratory: NO TENDERNESS, rhonchi Cardiovasular: REGULAR RATE/RHYTHM, NORMAL S1S2, NO M/G/R, NO MURMUR Abdomen: NON TENDER, NO REBOUND, NO MASSES Back: NORMAL INSPECTION Upper Extremities: NO EDEMA Lower Extremities: NO EDEMA Neuro: ALERT, ORIENTED x 3, NORMAL MOTOR EXAM, NORMAL SENSATION Psychiatric: NORMAL AFFECT Diagnostics Labs Results Past 24 Hours Test 01/04/18 11:40 01/04/18 13:34 Range/Units White Blood Count 14.60 4.8-10.8 K/uL Red Blood Count 4.61 4.2-5.4 M/uL Hemoglobin 13.4 12.0-16.0 g/dL Hematocrit 40.8 37-47 % Mean Corpuscular Volume 88.5 80-100 fL Mean Corpuscular Hemoglobin 29.1 25-34 pg Mean Corpuscular Hemoglobin Concent 32.8 32-36 g/dl Platelet Count 213 130-400 K/uL Mean Platelet Volume 10.9 7.4-10.4 fL Neutrophils (%) (Auto) 85.5 % Lymphocytes (%) (Auto) 3.0 % Monocytes (%) (Auto) 11.1 % Eosinophils (%) (Auto) 0.0 % Basophils (%) (Auto) 0.1 % Neutrophils # (Auto) 12.48 1.4-6.5 K/uL Lymphocytes # (Auto) 0.44 1.2-3.4 K/uL Monocytes # (Auto) 1.62 0.11-0.59 K/uL Eosinophils # (Auto) 0.00 0-0.5 K/uL Basophils # (Auto) 0.02 0-0.2 K/uL RDW Standard Deviation 45.0 36.4-46.3 fL RDW Coefficient of Variation 13.9 11.5-14.5 % Immature Granulocyte % (Auto) 0.3 % Immature Granulocyte # (Auto) 0.04 0.00-0.02 K/uL Prothrombin Time 11.4 9.0-12.0 SECONDS Prothromb Time International Ratio 1.1 0.9-1.1 Activated Partial Thromboplast Time 29.2 21.0-31.0 SECONDS Partial Thromboplastin Ratio 1.1 D-Dimer 640 0-500 ug/L FEU Sodium Level 134 136-145 mmol/L Potassium Level 3.7 3.5-5.1 mmol/L Chloride Level 95 98-107 mmol/L Carbon Dioxide Level 33 21-32 mmol/L Anion Gap 6.0 3-11 mmol/L Blood Urea Nitrogen 14 7-18 mg/dl Creatinine 0.63 0.60-1.20 mg/dl Est Creatinine Clear Calc Drug Dose 79.0 ml/min Estimated GFR () 102.4 Estimated GFR (Non- 88.4 BUN/Creatinine Ratio 21.7 10-20 Random Glucose 155 70-99 mg/dl Calcium Level 9.3 8.5-10.1 mg/dl Total Bilirubin 1.4 0.2-1 mg/dl Aspartate Amino Transf (AST/SGOT) 14 15-37 U/L Alanine Aminotransferase (ALT/SGPT) 14 12-78 U/L Alkaline Phosphatase 96 45-117 U/L Troponin I < 0.015 0-0.045 ng/ml Pro-B-Type Natriuretic Peptide 548 0-900 pg/ml Total Protein 7.7 6.4-8.2 gm/dl Albumin 3.2 3.4-5.0 gm/dl Globulin 4.5 2.5-4.0 gm/dl Albumin/Globulin Ratio 0.7 0.9-2 Procalcitonin 0.34 0-0.5 ng/ml Influenza Type A Antigen Neg for Influ A NEG Influenza Type B Antigen Neg for Influ B NEG Arterial Blood pH 7.40 7.35-7.45 Arterial Blood Partial Pressure CO2 54 35-46 mmHg Arterial Blood Partial Pressure O2 63 80-95 mm/Hg Arterial Blood HCO3 32 19-24 mmol/L Arterial Blood Oxygen Saturation 92.1 90-95 % Arterial Blood Base Excess 6.0 -9-1.8 mEq/L Arterial Blood Gas Delivery 3 L [place] Test POS POS Lactic Acid Level 2.3 0.4-2.0 mmol/L Diagnostic Radiology I have reviewed the CAT scan and compared with the previous CAT scan that I have in her records which both showed progression of panbronchiolitis and tree- in-bud appearance. No significant lymphadenopathy. COPD changes were noted. Impression Assessment and Plan 1. Panbronchiolitis, tree-in-bud appearance, this is most likely infectious with latent infection such as LEIGHANN. This is not tuberculosis. The short course of progression on the 2 CAT scans argue against it. The possibility of PCP only if she was on chronic steroids which is not. 2. Although GERD can cause similar feature but the progression is too quick to account for it. 3. Chronic hypercapnic respiratory failure. 4. COPD, home O2 dependent, gold level 3. Plan: 1. Agree with your plan. CAT scan was done and I have reviewed. The findings are consistent with tree-in-bud appearance and COPD. LEIGHANN is highly likely. 2. Continue with current dose of steroids in addition to bronchodilators. 3. Bronchoscopy would be helpful on an elective basis to confirm the diagnosis of LEIGHANN. And the patient can be given the option of treatment. Treatment will require commitment for at least 2 years of triple antibiotic therapy 3 times a week. 4. Continue with oxygen as prescribed. 5. Discussed in details with the patient herself. Thank you for the kind referral, will follow.
[2018-01-04] MEDS: HEPARIN SOD 5000 UNIT/0.5 ML CARP SQ SCH (20:00)
[2018-01-04] MEDS: BUDESONIDE/FORMOTEROL FUMARATE 160/4.5 60 PUFFS/INHALER INH SCH (20:22)
[2018-01-04] MEDS: ATORVASTATIN 40 MG TAB PO SCH (20:23)
[2018-01-04] MEDS: LOSARTAN POTASSIUM 25 MG TAB PO SCH (20:23)
[2018-01-04] MEDS: TRAMADOL HCL 50 MG TAB PO PRN (23:20)
[2018-01-05] VITALS (14 sets, daily range): BP systolic 105–150; BP diastolic 63–91; PULSE 93–110; TEMP 36.7–37; O2SAT 94–100
[2018-01-05] MEDS: LEVALBUTEROL 1.25MG/0.5ML NEB INH SCH ×6 (03:09→23:43)
[2018-01-05] MEDS: IPRATROPIUM BROMIDE NEB SOLN 0.02% 2.5 ML VIAL INH SCH ×6 (03:09→23:42)
[2018-01-05] MEDS: HEPARIN SOD 5000 UNIT/0.5 ML CARP SQ SCH ×3 (03:55→21:19)
[2018-01-05] MEDS: METHYLPREDNISOLONE IV 40 MG in SYRINGE 0 ML IV SCH ×3 (05:57→22:30)
[2018-01-05 07:41] LABS: HEMATOCRIT 37.9 % (37-47); HEMOGLOBIN 12.5 g/dL (12.0-16.0); MEAN CELL VOLUME 87.5 fL (80-100); MEAN CORPUSCULAR HEMOGLOBIN 28.9 pg (25-34); MEAN PLATELET VOLUME 10.5 fL (7.4-10.4); PLATELET COUNT 212 K/uL (130-400); RED CELL DISTRIBUTION WIDTH CV 13.7 % (11.5-14.5); RED CELL DISTRIBUTION WIDTH SD 44.3 fL (36.4-46.3); WHITE BLOOD COUNT 12.83 K/uL (4.8-10.8)
[2018-01-05] MEDS: TIOTROPIUM BROMIDE 5 PUFF/90 MCG INH INH SCH (07:41)
[2018-01-05] MEDS: PANTOprazole SOD 40 MG TAB PO SCH (07:42)
[2018-01-05] MEDS: BUDESONIDE/FORMOTEROL FUMARATE 160/4.5 60 PUFFS/INHALER INH SCH ×2 (07:42→21:22)
[2018-01-05] MEDS: CALCIUM CARBONATE 500 MG CHEWABLE PO SCH (07:43)
[2018-01-05] MEDS: POTASSIUM CHLORIDE 10 MEQ TABCR PO SCH (07:43)
[2018-01-05] MEDS: METOPROLOL SUCC 25MG EXT REL TAB PO SCH (07:43)
[2018-01-05] MEDS: ASPIRIN 81 MG ECTAB PO SCH (07:43)
[2018-01-05] MEDS: TRAMADOL HCL 50 MG TAB PO PRN ×2 (07:50→22:30)
[2018-01-05 08:30] LABS: BLOOD UREA NITROGEN 19 mg/dl (7-18); CARBON DIOXIDE 35 mmol/L (21-32); CHOLESTEROL 118 mg/dl (0-200); GLUCOSE 153 mg/dl (70-99); POTASSIUM 3.5 mmol/L (3.5-5.1); SODIUM 132 mmol/L (136-145)
[2018-01-05 08:35] LABS: LDL CHOLESTEROL CALCULATED 44 mg/dl
[2018-01-05] MEDS ORDERED: FUROSEMIDE 20 MG TAB PO SCH (09:00)
[2018-01-05] MEDS ORDERED: SODIUM CHLORIDE 0.9% 1000ML 1,000 ML IV SCH (11:20)
[2018-01-05] MEDS: CEFTRIAXONE SOD INJ 1 GM in DEXTROSE 5% ADD-VANTAGE 50ML 50 ML IV SCH (13:36)
[2018-01-05] MEDS: AZITHROMYCIN IV 500 MG in DEXTROSE 5% 250ML 250 ML IV SCH (14:19)
--- NOTE | 2018-01-05 14:27 | Progress Note ---
Medicine Progress Note Date & Time of Visit: Jan 05, 2018 at 14:26. Subjective Seen sitting up in bedside chair comfortable In good spirits States she feels improved today Breathing is better Less coughing No other symptoms Objective Last 8 Hrs Date Time Temp Pulse Resp B/P (MAP) Pulse Ox O2 Delivery O2 Flow Rate FiO2 01/05/18 12:00 37.0 110 20 142/73 (96) 94 Nasal Cannula 3.0 01/05/18 12:00 Nasal Cannula 3.0 01/05/18 10:58 105 24 97 Nasal Cannula 3.0 01/05/18 08:00 Nasal Cannula 3.0 01/05/18 07:37 36.8 110 18 150/91 (110) 95 Nasal Cannula 3.0 01/05/18 07:16 98 18 98 Nasal Cannula 3.0 Physical Exam: General-oriented 3 not in distress speaking in sentences Head- atraumatic Eyes- PERRL, EOMI, anicteric ENT- oropharynx clear Neck- supple, no JVD, no adenopathy, no thyromegaly; carotids +2/2 Lungs-diminished breath sounds with scattered rhonchi and mild no wheezing Heart- regular rhythm; no murmur, normal rate Abdomen- normal bowel sounds, soft, nontender Extremities- no pretibial edema, no calf tenderness; peripheral pulses intact Neuro- alert, oriented x 3; no gross focal motor or sensory deficits Skin- warm & dry Laboratory Results: Last 24 Hours Test 01/04/18 19:17 01/04/18 19:29 01/05/18 01:11 01/05/18 05:25 Troponin I < 0.015 ng/ml < 0.015 ng/ml Lactic Acid Level 4.1 mmol/L Urine Color YELLOW Urine Appearance CLEAR Urine pH 6.0 Urine Specific [place] 1.045 Urine Protein TRACE Urine Glucose (UA) NEG Urine Ketones TRACE Urine Occult Blood NEG Urine Nitrite NEG Urine Bilirubin NEG Urine Urobilinogen NEG Urine Leukocyte Esterase NEG Urine WBC (Auto) 1-5 /hpf Urine RBC (Auto) 0-4 /hpf Urine Hyaline Casts (Auto) 5-10 /lpf Urine Epithelial Cells (Auto) >30 /lpf Urine Bacteria (Auto) NEG Test 01/05/18 07:22 01/05/18 10:00 01/05/18 13:11 White Blood Count 12.83 K/uL Red Blood Count 4.33 M/uL Hemoglobin 12.5 g/dL Hematocrit 37.9 % Mean Corpuscular Volume 87.5 fL Mean Corpuscular Hemoglobin 28.9 pg Mean Corpuscular Hemoglobin Concent 33.0 g/dl RDW Standard Deviation 44.3 fL RDW Coefficient of Variation 13.7 % Platelet Count 212 K/uL Mean Platelet Volume 10.5 fL Sodium Level 132 mmol/L Potassium Level 3.5 mmol/L Chloride Level 93 mmol/L Carbon Dioxide Level 35 mmol/L Anion Gap 4.0 mmol/L Blood Urea Nitrogen 19 mg/dl Creatinine 0.80 mg/dl Est Creatinine Clear Calc Drug Dose 60.9 ml/min Estimated GFR () 84.2 Estimated GFR (Non- 72.6 BUN/Creatinine Ratio 23.7 Random Glucose 153 mg/dl Calcium Level 9.0 mg/dl Magnesium Level 2.3 mg/dl Troponin I < 0.015 ng/ml < 0.015 ng/ml Triglycerides Level 74 mg/dl Cholesterol Level 118 mg/dl HDL Cholesterol 59 mg/dl LDL Cholesterol, Calculated 44 mg/dl VLDL Cholesterol, Calculated 15 mg/dl Cholesterol/HDL Ratio 2.0 Lactic Acid Level 4.8 mmol/L Assessment & Plan Patient is a 72-year-old female with a past medical history of COPD (2-3L O2 at night), HTN, systolic CHF, chronic sinus tachycardia and other medical problems listed below who presents with worsening shortness of breath x 3 days. Acute on chronic hypoxic respiratory failure: -2/2 COPD exacerbation, possible pneumonia versus LEIGHANN -Requires 2-3 L O2 HS chronically -Has also been requiring 2-3 L O2 over the last few days -83% on room air initially. Now saturating in high 90s on 3 L NC -ABG with compensated respiratory acidosis -pH of 7.4, pCO2 of 54, pO2 of 63, bicarb of 32 Clinically improved today At baseline 2-3 L by nasal cannula Suspected LEIGHANN Pulmonary consulted Dr. Livingston Continue ceftriaxone and azithromycin Continue Solu-Medrol every 6 hours Plan for bronchoscopy on Sunday HTN: -Normotensive -Continue losartan, Lasix, metoprolol Systolic CHF: -Compensated on exam -Most recent echo with improvement, EF of 58% -Continue losartan, Lasix, metoprolol -Low Na diet Chronic sinus tachycardia: --2/2 pulmonary disease -Previous EKGs with HR: 120s -D dimer slightly elevated to 640 -Chest/thorax CTA no pulmonary embolism Chronic back pain, fibromyalgia: -Cont tramadol PRN GERD: -Continue PPI DVT Ppx: SQ heparin Code status: FULL PCP: Red Dispo: Pending anticipate discharge to home when medically stable cleared by pulmonary Current Inpatient Medications: Current Inpatient Medications Medications (Trade) Dose Ordered Sig/Racheal Route Start Time Stop Time Status Last Admin Dose Admin Azithromycin 500 mg/Dextrose 255 ml @ 250 mls/hr Q24H IV 01/04/18 15:30 01/11/18 15:29 01/05/18 14:19 250 MLS/HR Ceftriaxone Sodium 1 gm/ Dextrose 50 ml @ 100 mls/hr Q24H IV 01/04/18 14:30 01/11/18 14:29 01/05/18 13:36 100 MLS/HR Levalbuterol (Xopenex 1.25MG/ 0.5ML Neb) 1.25 mg Q4R INH 01/04/18 16:00 02/03/18 15:59 01/05/18 10:55 1.25 MG Ipratropium [place] (Atrovent 0.02% 0.5MG/2.5ML Neb) 0.5 mg Q4R INH 01/04/18 16:00 02/03/18 15:59 01/05/18 10:55 0.5 MG Methylprednisolone Sodium Succinate 40 mg/Syringe 0.64 ml @ 1.5 mls/min Q8H IV 01/04/18 14:30 02/03/18 14:29 01/05/18 14:20 1.5 MLS/MIN Heparin Sodium (Porcine) (Heparin Sq 5000 Unit/0.5ml) 5,000 unit Q8H SQ 01/04/18 20:00 02/03/18 19:59 Acetaminophen (Tylenol Tab) 650 mg Q4H PRN PO 01/04/18 13:15 02/03/18 13:14 Al Hydrox/Mg Hydrox/Simethicone (Maalox Max Susp) 15 ml Q4H PRN PO 01/04/18 13:15 02/03/18 13:14 Magnesium Hydroxide (Milk Of Magnesia Susp) 30 ml Q12H PRN PO 01/04/18 13:15 02/03/18 13:14 Ondansetron HCl (Zofran Inj) 4 mg Q6H PRN IV 01/04/18 13:15 02/03/18 13:14 Nitroglycerin (Nitrostat Tab) 0.4 mg UD PRN SL 01/04/18 13:15 02/03/18 13:14 Polyethylene (Miralax Powder Packet) 17 gm DAILY PRN PO 01/04/18 13:15 02/03/18 13:14 Albuterol (Ventolin Hfa Inhaler) 2 puffs Q4H PRN INH 01/04/18 15:00 02/03/18 14:59 Aspirin (Ecotrin Tab) 81 mg DAILY PO 01/05/18 09:00 02/04/18 08:59 01/05/18 07:43 81 MG Atorvastatin Calcium (Lipitor Tab) 40 mg HS PO 01/04/18 21:00 02/03/18 20:59 01/04/18 20:23 40 MG Budesonide/ Formoterol Fumarate (Symbicort 160/ 4.5 Inh) 2 puffs BID INH 01/04/18 21:00 02/03/18 20:59 01/05/18 07:42 2 PUFFS Calcium Carbonate (Tums Chew Tab) 750 mg DAILY PO 01/05/18 09:00 02/04/18 08:59 Losartan Potassium (coZAAR TAB) 25 mg QPM PO 01/04/18 21:00 02/03/18 20:59 01/04/18 20:23 25 MG Metoprolol Succinate (Toprol Xl Tab) 25 mg DAILY PO 01/05/18 09:00 02/04/18 08:59 01/05/18 07:43 25 MG Tiotropium [place] (Spiriva Handihaler Inhaler) 1 puff DAILY INH 01/05/18 09:00 02/04/18 08:59 01/05/18 07:41 1 PUFF Tramadol HCl (Ultram Tab) 50 mg TID PRN PO 01/04/18 15:00 02/03/18 14:59 Future Hold Potassium Chloride (Klor-Con M10) 10 meq Q2D@0900 PO 01/05/18 09:00 02/04/18 08:59 01/05/18 07:43 10 MEQ Pantoprazole Sodium (Protonix Tab) 40 mg QAM PO 01/05/18 09:00 02/04/18 08:59 01/05/18 07:42 40 MG Ioversol (Optiray 320) 125 ml UD PRN IV 01/04/18 16:00 01/08/18 15:59 Tramadol HCl (Ultram Tab) 50 mg Q4H PRN PO 01/04/18 16:45 02/03/18 16:44 01/05/18 07:50 50 MG Sodium Chloride 1,000 ml @ 60 mls/hr [id number] IV 01/05/18 11:20 02/04/18 11:19 01/05/18 13:36 60 MLS/HR
--- NOTE | 2018-01-05 16:03 | Pulmonology Progress Note ---
Pulmonary Progress Note Date of Service Jan 05, 2018. Attending Dr. Yara Miller The patient continue to do well, she is on 2 L via nasal cannula, no events overnight, cough has been persistent without sputum production, no wheezing no chest pain but she does have dyspnea on exertion. Objective Physical exam on 01/05/2018, normal vital signs, O2 saturation 93% on nasal cannula, no wheezing was audible, she does have scattered rhonchi bilaterally, heart examination S1-S2 regular rate and rhythm, abdomen is benign, no edema. Assessment & Plan 1. Panbronchiolitis, this could be related to latent infection such as LEIGHANN, chronic aspiration or mucoid impaction in the face of advanced COPD. 2. COPD, gold level 3, grade C on home O2. 3. GERD. 4. Possible early dementia. Plan: 1. Continue with current treatment including steroids, bronchodilators. 2. Ceftriaxone and azithromycin should be adequate. 3. The patient will need a bronchoscopy, I could not accommodated on the weekends, will pass it on to the team for Sunday or Sunday. 4. If the patient is improved to the point that she can be discharged home, bronchoscopy can be done as an outpatient to rule out LEIGHANN. 5. The patient has lactic acidosis type II which does not represent hypoperfusion. Thank you, will follow. Data Medications: Current Inpatient Medications Medications (Trade) Dose Ordered Sig/Racheal Route Start Time Stop Time Status Last Admin Dose Admin Azithromycin 500 mg/Dextrose 255 ml @ 250 mls/hr Q24H IV 01/04/18 15:30 01/11/18 15:29 01/05/18 14:19 250 MLS/HR Ceftriaxone Sodium 1 gm/ Dextrose 50 ml @ 100 mls/hr Q24H IV 01/04/18 14:30 01/11/18 14:29 01/05/18 13:36 100 MLS/HR Levalbuterol (Xopenex 1.25MG/ 0.5ML Neb) 1.25 mg Q4R INH 01/04/18 16:00 02/03/18 15:59 01/05/18 15:26 1.25 MG Ipratropium [place] (Atrovent 0.02% 0.5MG/2.5ML Neb) 0.5 mg Q4R INH 01/04/18 16:00 02/03/18 15:59 01/05/18 15:26 0.5 MG Methylprednisolone Sodium Succinate 40 mg/Syringe 0.64 ml @ 1.5 mls/min Q8H IV 01/04/18 14:30 02/03/18 14:29 01/05/18 14:20 1.5 MLS/MIN Heparin Sodium (Porcine) (Heparin Sq 5000 Unit/0.5ml) 5,000 unit Q8H SQ 01/04/18 20:00 02/03/18 19:59 Acetaminophen (Tylenol Tab) 650 mg Q4H PRN PO 01/04/18 13:15 02/03/18 13:14 Al Hydrox/Mg Hydrox/Simethicone (Maalox Max Susp) 15 ml Q4H PRN PO 01/04/18 13:15 02/03/18 13:14 Magnesium Hydroxide (Milk Of Magnesia Susp) 30 ml Q12H PRN PO 01/04/18 13:15 02/03/18 13:14 Ondansetron HCl (Zofran Inj) 4 mg Q6H PRN IV 01/04/18 13:15 02/03/18 13:14 Nitroglycerin (Nitrostat Tab) 0.4 mg UD PRN SL 01/04/18 13:15 02/03/18 13:14 Polyethylene (Miralax Powder Packet) 17 gm DAILY PRN PO 01/04/18 13:15 02/03/18 13:14 Albuterol (Ventolin Hfa Inhaler) 2 puffs Q4H PRN INH 01/04/18 15:00 02/03/18 14:59 Aspirin (Ecotrin Tab) 81 mg DAILY PO 01/05/18 09:00 02/04/18 08:59 01/05/18 07:43 81 MG Atorvastatin Calcium (Lipitor Tab) 40 mg HS PO 01/04/18 21:00 02/03/18 20:59 01/04/18 20:23 40 MG Budesonide/ Formoterol Fumarate (Symbicort 160/ 4.5 Inh) 2 puffs BID INH 01/04/18 21:00 02/03/18 20:59 01/05/18 07:42 2 PUFFS Calcium Carbonate (Tums Chew Tab) 750 mg DAILY PO 01/05/18 09:00 02/04/18 08:59 Losartan Potassium (coZAAR TAB) 25 mg QPM PO 01/04/18 21:00 02/03/18 20:59 01/04/18 20:23 25 MG Metoprolol Succinate (Toprol Xl Tab) 25 mg DAILY PO 01/05/18 09:00 02/04/18 08:59 01/05/18 07:43 25 MG Tiotropium [place] (Spiriva Handihaler Inhaler) 1 puff DAILY INH 01/05/18 09:00 02/04/18 08:59 01/05/18 07:41 1 PUFF Tramadol HCl (Ultram Tab) 50 mg TID PRN PO 01/04/18 15:00 02/03/18 14:59 Future Hold Potassium Chloride (Klor-Con M10) 10 meq Q2D@0900 PO 01/05/18 09:00 02/04/18 08:59 01/05/18 07:43 10 MEQ Pantoprazole Sodium (Protonix Tab) 40 mg QAM PO 01/05/18 09:00 02/04/18 08:59 01/05/18 07:42 40 MG Ioversol (Optiray 320) 125 ml UD PRN IV 01/04/18 16:00 01/08/18 15:59 Tramadol HCl (Ultram Tab) 50 mg Q4H PRN PO 01/04/18 16:45 02/03/18 16:44 01/05/18 07:50 50 MG I & O: 24-Hour Column 01/06/18 07:59 Intake Total 1023 ml Output Total 500 ml Balance 523 ml Vital Signs: Date Time Temp Pulse Resp B/P (MAP) Pulse Ox O2 Delivery O2 Flow Rate FiO2 01/05/18 15:33 36.9 107 22 131/82 (98) 98 Nasal Cannula 3.0 01/05/18 15:26 107 20 98 Nasal Cannula 3.0 01/05/18 12:00 37.0 110 20 142/73 (96) 94 Nasal Cannula 3.0 01/05/18 12:00 Nasal Cannula 3.0 01/05/18 10:58 105 24 97 Nasal Cannula 3.0 01/05/18 08:00 Nasal Cannula 3.0 01/05/18 07:37 36.8 110 18 150/91 (110) 95 Nasal Cannula 3.0 01/05/18 07:16 98 18 98 Nasal Cannula 3.0 01/05/18 04:00 94 Nasal Cannula 3.0 01/05/18 03:53 36.7 102 26 125/63 (83) 96 Nasal Cannula 3.0 01/05/18 03:10 101 22 95 Nasal Cannula 3.0 01/05/18 00:43 36.9 96 24 150/85 (106) 100 Nebulizer 8.0 01/04/18 23:22 100 20 95 Nasal Cannula 3.0 01/04/18 23:20 100 Nasal Cannula 3.0 01/04/18 19:55 100 Nasal Cannula 3.0 01/04/18 19:37 36.4 109 22 143/72 (95) 100 Nasal Cannula 3.0 01/04/18 19:00 102 18 97 Nasal Cannula 3.0 01/04/18 16:14 94 Nasal Cannula 3.0 Laboratory Results: Last 24 Hours Test 01/04/18 19:17 01/04/18 19:29 01/05/18 01:11 01/05/18 05:25 Troponin I < 0.015 ng/ml < 0.015 ng/ml Lactic Acid Level 4.1 mmol/L Urine Color YELLOW Urine Appearance CLEAR Urine pH 6.0 Urine Specific [place] 1.045 Urine Protein TRACE Urine Glucose (UA) NEG Urine Ketones TRACE Urine Occult Blood NEG Urine Nitrite NEG Urine Bilirubin NEG Urine Urobilinogen NEG Urine Leukocyte Esterase NEG Urine WBC (Auto) 1-5 /hpf Urine RBC (Auto) 0-4 /hpf Urine Hyaline Casts (Auto) 5-10 /lpf Urine Epithelial Cells (Auto) >30 /lpf Urine Bacteria (Auto) NEG Test 01/05/18 07:22 01/05/18 10:00 01/05/18 13:11 White Blood Count 12.83 K/uL Red Blood Count 4.33 M/uL Hemoglobin 12.5 g/dL Hematocrit 37.9 % Mean Corpuscular Volume 87.5 fL Mean Corpuscular Hemoglobin 28.9 pg Mean Corpuscular Hemoglobin Concent 33.0 g/dl RDW Standard Deviation 44.3 fL RDW Coefficient of Variation 13.7 % Platelet Count 212 K/uL Mean Platelet Volume 10.5 fL Sodium Level 132 mmol/L Potassium Level 3.5 mmol/L Chloride Level 93 mmol/L Carbon Dioxide Level 35 mmol/L Anion Gap 4.0 mmol/L Blood Urea Nitrogen 19 mg/dl Creatinine 0.80 mg/dl Est Creatinine Clear Calc Drug Dose 60.9 ml/min Estimated GFR () 84.2 Estimated GFR (Non- 72.6 BUN/Creatinine Ratio 23.7 Random Glucose 153 mg/dl Calcium Level 9.0 mg/dl Magnesium Level 2.3 mg/dl Troponin I < 0.015 ng/ml < 0.015 ng/ml Triglycerides Level 74 mg/dl Cholesterol Level 118 mg/dl HDL Cholesterol 59 mg/dl LDL Cholesterol, Calculated 44 mg/dl VLDL Cholesterol, Calculated 15 mg/dl Cholesterol/HDL Ratio 2.0 Lactic Acid Level 4.8 mmol/L
[2018-01-05] MEDS: ATORVASTATIN 40 MG TAB PO SCH (21:22)
[2018-01-05] MEDS: LOSARTAN POTASSIUM 25 MG TAB PO SCH (21:22)
[2018-01-06] VITALS (12 sets, daily range): BP systolic 128–136; BP diastolic 57–80; PULSE 72–107; TEMP 36.5–36.8; O2SAT 92–99
[2018-01-06] MEDS: LEVALBUTEROL 1.25MG/0.5ML NEB INH SCH ×6 (03:24→23:36)
[2018-01-06] MEDS: IPRATROPIUM BROMIDE NEB SOLN 0.02% 2.5 ML VIAL INH SCH ×3 (03:24→11:07)
[2018-01-06] MEDS: TRAMADOL HCL 50 MG TAB PO PRN ×2 (03:28→07:44)
[2018-01-06] MEDS: HEPARIN SOD 5000 UNIT/0.5 ML CARP SQ SCH ×4 (03:51→20:35)
[2018-01-06 06:07] LABS: HEMATOCRIT 39.6 % (37-47); HEMOGLOBIN 12.8 g/dL (12.0-16.0); MEAN CORPUSCULAR HEMOGLOBIN 28.8 pg (25-34); MEAN CORPUSCULAR HGB CONC 32.3 g/dl (32-36); PLATELET COUNT 264 K/uL (130-400); RED CELL DISTRIBUTION WIDTH CV 13.5 % (11.5-14.5); RED CELL DISTRIBUTION WIDTH SD 44.6 fL (36.4-46.3); WHITE BLOOD COUNT 21.12 K/uL (4.8-10.8)
[2018-01-06] MEDS: METHYLPREDNISOLONE IV 40 MG in SYRINGE 0 ML IV SCH ×2 (06:12→20:30)
[2018-01-06 06:44] LABS: CALCIUM 9.5 mg/dl (8.5-10.1); CREATININE 0.91 mg/dl (0.60-1.20); POTASSIUM 4.5 mmol/L (3.5-5.1)
[2018-01-06] MEDS: BUDESONIDE/FORMOTEROL FUMARATE 160/4.5 60 PUFFS/INHALER INH SCH ×2 (07:40→20:30)
[2018-01-06] MEDS: TIOTROPIUM BROMIDE 5 PUFF/90 MCG INH INH SCH (07:40)
[2018-01-06] MEDS: METOPROLOL SUCC 25MG EXT REL TAB PO SCH (07:41)
[2018-01-06] MEDS: ASPIRIN 81 MG ECTAB PO SCH (07:41)
[2018-01-06] MEDS: PANTOprazole SOD 40 MG TAB PO SCH (07:41)
[2018-01-06] MEDS: CALCIUM CARBONATE 500 MG CHEWABLE PO SCH (07:42)
[2018-01-06] MEDS ORDERED: COUGH DROP (SUGAR FREE) LOZ 24 LOZ/1 BOX LOZ ONE (10:19)
[2018-01-06] MEDS ORDERED: BENZONATATE 100MG CAP PO PRN (10:30)
[2018-01-06] MEDS ORDERED: COUGH DROP (SUGAR FREE) LOZ 24 LOZ/1 BOX LOZ PRN (10:30)
--- NOTE | 2018-01-06 11:51 | Pulmonology Progress Note ---
Pulmonary Progress Note Date of Service Jan 06, 2018. Attending Dr. Livingston Subjective The patient continues to have cough, it is much better, she has no shortness of breath, sputum production was noted to be yellow, blood-tinged occasionally. No events overnight. She has been using cough drops according to her. Objective Physical exam on 01/05/2018, normal vital signs, O2 saturation 93% on nasal cannula, no wheezing was audible, she does have scattered rhonchi bilaterally, heart examination S1-S2 regular rate and rhythm, abdomen is benign, no edema. Physical exam on 01/06/2018, vital signs remain stable, no fever, O2 saturation 94% on nasal cannula, bilateral diffuse scattered crackles, heart examination S1 -S2 regular rate and rhythm, no edema in the periphery. Neurologically the patient appears to be with slight dementia. Assessment & Plan 1. Panbronchiolitis, this could be related to latent infection such as LEIGHANN, chronic aspiration or mucoid impaction in the face of advanced COPD. 2. COPD, gold level 3, grade C on home O2. 3. GERD. 4. Possible early dementia. Plan: #1 I will keep the patient n.p.o. except medications after midnight for potential bronchoscopy in the morning. 2. I will sign off the case to my colleagues in the morning for bronchoscopy. 3. Start normal saline at 75 mL an hour after midnight. 4. Avoid cough drops as the patient should be able to cough her secretions. 5. Decrease Solu-Medrol to 40 mg IV every 12 hours. 6. Continue ceftriaxone and azithromycin. However, with a concern of LEIGHANN, using azithromycin alone could increase her chance of macrolides resistant LEIGHANN. 7. Bronchoscopy in the morning of the day after, I would defer that to the discretion of my colleague coming on Sunday. 8. I am not sure if the patient can consent by herself for bronchoscopy, however, she has a son which I could not get in touch with, it would be important to notify him about the procedure itself. 9. Stop ipratropium as the patient is already on Spiriva. 10. discussed in details with the patient herself all her questions been answered. 11. Continue aggressive treatment for GERD. Chronic aspiration is linked to panbronchiolitis and GERD as well. Thank you, will follow. Data Medications: Current Inpatient Medications Medications (Trade) Dose Ordered Sig/Racheal Route Start Time Stop Time Status Last Admin Dose Admin Azithromycin 500 mg/Dextrose 255 ml @ 250 mls/hr Q24H IV 01/04/18 15:30 01/11/18 15:29 01/05/18 14:19 250 MLS/HR Ceftriaxone Sodium 1 gm/ Dextrose 50 ml @ 100 mls/hr Q24H IV 01/04/18 14:30 01/11/18 14:29 01/05/18 13:36 100 MLS/HR Levalbuterol (Xopenex 1.25MG/ 0.5ML Neb) 1.25 mg Q4R INH 01/04/18 16:00 02/03/18 15:59 01/06/18 11:07 1.25 MG Ipratropium [place] (Atrovent 0.02% 0.5MG/2.5ML Neb) 0.5 mg Q4R INH 01/04/18 16:00 02/03/18 15:59 01/06/18 11:07 0.5 MG Heparin Sodium (Porcine) (Heparin Sq 5000 Unit/0.5ml) 5,000 unit Q8H SQ 01/04/18 20:00 02/03/18 19:59 Acetaminophen (Tylenol Tab) 650 mg Q4H PRN PO 01/04/18 13:15 02/03/18 13:14 Al Hydrox/Mg Hydrox/Simethicone (Maalox Max Susp) 15 ml Q4H PRN PO 01/04/18 13:15 02/03/18 13:14 Magnesium Hydroxide (Milk Of Magnesia Susp) 30 ml Q12H PRN PO 01/04/18 13:15 02/03/18 13:14 Ondansetron HCl (Zofran Inj) 4 mg Q6H PRN IV 01/04/18 13:15 02/03/18 13:14 01/06/18 06:11 4 MG Nitroglycerin (Nitrostat Tab) 0.4 mg UD PRN SL 01/04/18 13:15 02/03/18 13:14 Polyethylene (Miralax Powder Packet) 17 gm DAILY PRN PO 01/04/18 13:15 02/03/18 13:14 Albuterol (Ventolin Hfa Inhaler) 2 puffs Q4H PRN INH 01/04/18 15:00 02/03/18 14:59 Aspirin (Ecotrin Tab) 81 mg DAILY PO 01/05/18 09:00 02/04/18 08:59 01/06/18 07:41 81 MG Atorvastatin Calcium (Lipitor Tab) 40 mg HS PO 01/04/18 21:00 02/03/18 20:59 01/05/18 21:22 40 MG Budesonide/ Formoterol Fumarate (Symbicort 160/ 4.5 Inh) 2 puffs BID INH 01/04/18 21:00 02/03/18 20:59 01/06/18 07:40 2 PUFFS Calcium Carbonate (Tums Chew Tab) 750 mg DAILY PO 01/05/18 09:00 02/04/18 08:59 01/06/18 07:42 750 MG Losartan Potassium (coZAAR TAB) 25 mg QPM PO 01/04/18 21:00 02/03/18 20:59 01/05/18 21:22 25 MG Metoprolol Succinate (Toprol Xl Tab) 25 mg DAILY PO 01/05/18 09:00 02/04/18 08:59 01/06/18 07:41 25 MG Tiotropium [place] (Spiriva Handihaler Inhaler) 1 puff DAILY INH 01/05/18 09:00 02/04/18 08:59 01/06/18 07:40 1 PUFF Tramadol HCl (Ultram Tab) 50 mg TID PRN PO 01/04/18 15:00 02/03/18 14:59 Future Hold Potassium Chloride (Klor-Con M10) 10 meq Q2D@0900 PO 01/05/18 09:00 02/04/18 08:59 01/05/18 07:43 10 MEQ Pantoprazole Sodium (Protonix Tab) 40 mg QAM PO 01/05/18 09:00 02/04/18 08:59 01/06/18 07:41 40 MG Ioversol (Optiray 320) 125 ml UD PRN IV 01/04/18 16:00 01/08/18 15:59 Tramadol HCl (Ultram Tab) 50 mg Q4H PRN PO 01/04/18 16:45 02/03/18 16:44 01/06/18 07:44 50 MG Benzonatate (Tessalon Perles Cap) 100 mg TID PRN PO 01/06/18 10:30 02/05/18 10:29 Menthol (Nice Sulema) 1 sulema PRN PRN SULEMA 01/06/18 10:30 02/05/18 10:29 Methylprednisolone Sodium Succinate 40 mg/Syringe 0.64 ml @ 1.5 mls/min Q12 IV 01/06/18 21:00 02/03/18 14:29 UNV Sodium Chloride 1,000 ml @ 75 mls/hr [id number] IV 01/07/18 00:00 02/06/18 00:00 UNV Vital Signs: Date Time Temp Pulse Resp B/P (MAP) Pulse Ox O2 Delivery O2 Flow Rate FiO2 01/06/18 11:10 102 18 98 Nasal Cannula 3.0 01/06/18 08:06 Nasal Cannula 4.0 01/06/18 07:44 36.5 101 18 130/57 (81) 98 Nasal Cannula 4.0 01/06/18 07:08 96 22 98 Nasal Cannula 4.0 01/06/18 05:53 Nasal Cannula 4.0 01/06/18 03:00 36.6 104 20 136/63 (87) 99 Nasal Cannula 4.0 01/06/18 01:45 Nasal Cannula 4.0 01/06/18 00:21 36.8 72 18 128/80 (96) 92 Room Air 01/05/18 23:55 Nasal Cannula 3.0 01/05/18 23:43 93 20 95 Nasal Cannula 3.0 01/05/18 20:00 94 Nasal Cannula 3.0 01/05/18 19:36 36.7 110 20 105/67 (80) 98 Nasal Cannula 3.0 01/05/18 19:21 103 18 98 Nasal Cannula 3.0 01/05/18 16:00 Nasal Cannula 3.0 01/05/18 15:33 36.9 107 22 131/82 (98) 98 Nasal Cannula 3.0 01/05/18 15:26 107 20 98 Nasal Cannula 3.0 01/05/18 12:00 37.0 110 20 142/73 (96) 94 Nasal Cannula 3.0 01/05/18 12:00 Nasal Cannula 3.0 Laboratory Results: Last 24 Hours Test 01/05/18 13:11 01/06/18 05:36 Troponin I < 0.015 ng/ml White Blood Count 21.12 K/uL Red Blood Count 4.45 M/uL Hemoglobin 12.8 g/dL Hematocrit 39.6 % Mean Corpuscular Volume 89.0 fL Mean Corpuscular Hemoglobin 28.8 pg Mean Corpuscular Hemoglobin Concent 32.3 g/dl RDW Standard Deviation 44.6 fL RDW Coefficient of Variation 13.5 % Platelet Count 264 K/uL Mean Platelet Volume 11.0 fL Sodium Level 134 mmol/L Potassium Level 4.5 mmol/L Chloride Level 96 mmol/L Carbon Dioxide Level 34 mmol/L Anion Gap 4.0 mmol/L Blood Urea Nitrogen 29 mg/dl Creatinine 0.91 mg/dl Est Creatinine Clear Calc Drug Dose 53.8 ml/min Estimated GFR () 72.0 Estimated GFR (Non- 62.2 BUN/Creatinine Ratio 32.3 Random Glucose 169 mg/dl Calcium Level 9.5 mg/dl Magnesium Level 2.8 mg/dl
[2018-01-06] MEDS: CEFTRIAXONE SOD INJ 1 GM in DEXTROSE 5% ADD-VANTAGE 50ML 50 ML IV SCH (14:29)
--- NOTE | 2018-01-06 14:57 | Progress Note ---
Medicine Progress Note Date & Time of Visit: Jan 06, 2018 at 14:54. Subjective seen resting in bed, comfortable in good spirits states she feels improved still has dry cough no dyspnea no chest pain denies other symptoms Objective Last 8 Hrs Date Time Temp Pulse Resp B/P (MAP) Pulse Ox O2 Delivery O2 Flow Rate FiO2 01/06/18 12:03 Nasal Cannula 4.0 01/06/18 11:50 36.7 102 26 130/74 (92) 95 Nasal Cannula 3.0 01/06/18 11:10 102 18 98 Nasal Cannula 3.0 01/06/18 08:06 Nasal Cannula 4.0 01/06/18 07:44 36.5 101 18 130/57 (81) 98 Nasal Cannula 4.0 01/06/18 07:08 96 22 98 Nasal Cannula 4.0 Physical Exam: General-oriented 3 not in distress speaking in sentences Head- atraumatic Eyes- anicteric ENT- oropharynx clear Neck- supple, no JVD Lungs-diminished breath sounds no rales, no wheeze Heart- regular rhythm; no murmur, normal rate Abdomen- normal bowel sounds, soft, nontender Extremities- no pretibial edema, no calf tenderness Neuro- alert, oriented x 3; no gross focal motor or sensory deficits Skin- warm & dry Laboratory Results: Last 24 Hours Test 01/06/18 05:36 White Blood Count 21.12 K/uL Red Blood Count 4.45 M/uL Hemoglobin 12.8 g/dL Hematocrit 39.6 % Mean Corpuscular Volume 89.0 fL Mean Corpuscular Hemoglobin 28.8 pg Mean Corpuscular Hemoglobin Concent 32.3 g/dl RDW Standard Deviation 44.6 fL RDW Coefficient of Variation 13.5 % Platelet Count 264 K/uL Mean Platelet Volume 11.0 fL Sodium Level 134 mmol/L Potassium Level 4.5 mmol/L Chloride Level 96 mmol/L Carbon Dioxide Level 34 mmol/L Anion Gap 4.0 mmol/L Blood Urea Nitrogen 29 mg/dl Creatinine 0.91 mg/dl Est Creatinine Clear Calc Drug Dose 53.8 ml/min Estimated GFR () 72.0 Estimated GFR (Non- 62.2 BUN/Creatinine Ratio 32.3 Random Glucose 169 mg/dl Calcium Level 9.5 mg/dl Magnesium Level 2.8 mg/dl Assessment & Plan Patient is a 72-year-old female with a past medical history of COPD (2-3L O2 at night), HTN, systolic CHF, chronic sinus tachycardia and other medical problems listed below who presents with worsening shortness of breath x 3 days. Acute on chronic hypoxic respiratory failure: -2/2 COPD exacerbation, possible pneumonia versus LEIGHANN -Requires 2-3 L O2 HS chronically -Has also been requiring 2-3 L O2 over the last few days -83% on room air initially. Now saturating in high 90s on 3 L NC -ABG with compensated respiratory acidosis -pH of 7.4, pCO2 of 54, pO2 of 63, bicarb of 32 Clinically improving At baseline 2-3 L by nasal cannula Suspected LEIGHANN Pulmonary consulted Dr. Livingston Continue ceftriaxone and azithromycin Continue Solu-Medrol every 6 hours Plan for bronchoscopy tomorrow HTN: -Normotensive -Continue losartan, Lasix, metoprolol Systolic CHF: -Compensated on exam -Most recent echo with improvement, EF of 58% -Continue losartan, Lasix, metoprolol -Low Na diet Chronic sinus tachycardia: --2/2 pulmonary disease -Previous EKGs with HR: 120s -D dimer slightly elevated to 640 -Chest/thorax CTA no pulmonary embolism Chronic back pain, fibromyalgia: - PRN Oxy GERD: -Continue PPI DVT Ppx: SQ heparin Code status: FULL PCP: Red Dispo: Pending anticipate discharge to home when medically stable cleared by pulmonary Current Inpatient Medications: Current Inpatient Medications Medications (Trade) Dose Ordered Sig/Racheal Route Start Time Stop Time Status Last Admin Dose Admin Azithromycin 500 mg/Dextrose 255 ml @ 250 mls/hr Q24H IV 01/04/18 15:30 01/11/18 15:29 01/05/18 14:19 250 MLS/HR Ceftriaxone Sodium 1 gm/ Dextrose 50 ml @ 100 mls/hr Q24H IV 01/04/18 14:30 01/11/18 14:29 01/06/18 14:29 100 MLS/HR Levalbuterol (Xopenex 1.25MG/ 0.5ML Neb) 1.25 mg Q4R INH 01/04/18 16:00 02/03/18 15:59 01/06/18 11:07 1.25 MG Heparin Sodium (Porcine) (Heparin Sq 5000 Unit/0.5ml) 5,000 unit Q8H SQ 01/04/18 20:00 02/03/18 19:59 Acetaminophen (Tylenol Tab) 650 mg Q4H PRN PO 01/04/18 13:15 02/03/18 13:14 Al Hydrox/Mg Hydrox/Simethicone (Maalox Max Susp) 15 ml Q4H PRN PO 01/04/18 13:15 02/03/18 13:14 Magnesium Hydroxide (Milk Of Magnesia Susp) 30 ml Q12H PRN PO 01/04/18 13:15 02/03/18 13:14 Ondansetron HCl (Zofran Inj) 4 mg Q6H PRN IV 01/04/18 13:15 02/03/18 13:14 01/06/18 06:11 4 MG Nitroglycerin (Nitrostat Tab) 0.4 mg UD PRN SL 01/04/18 13:15 02/03/18 13:14 Polyethylene (Miralax Powder Packet) 17 gm DAILY PRN PO 01/04/18 13:15 02/03/18 13:14 Albuterol (Ventolin Hfa Inhaler) 2 puffs Q4H PRN INH 01/04/18 15:00 02/03/18 14:59 Aspirin (Ecotrin Tab) 81 mg DAILY PO 01/05/18 09:00 02/04/18 08:59 01/06/18 07:41 81 MG Atorvastatin Calcium (Lipitor Tab) 40 mg HS PO 01/04/18 21:00 02/03/18 20:59 01/05/18 21:22 40 MG Budesonide/ Formoterol Fumarate (Symbicort 160/ 4.5 Inh) 2 puffs BID INH 01/04/18 21:00 02/03/18 20:59 01/06/18 07:40 2 PUFFS Calcium Carbonate (Tums Chew Tab) 750 mg DAILY PO 01/05/18 09:00 02/04/18 08:59 01/06/18 07:42 750 MG Losartan Potassium (coZAAR TAB) 25 mg QPM PO 01/04/18 21:00 02/03/18 20:59 01/05/18 21:22 25 MG Metoprolol Succinate (Toprol Xl Tab) 25 mg DAILY PO 01/05/18 09:00 02/04/18 08:59 01/06/18 07:41 25 MG Tiotropium [place] (Spiriva Handihaler Inhaler) 1 puff DAILY INH 01/05/18 09:00 02/04/18 08:59 01/06/18 07:40 1 PUFF Tramadol HCl (Ultram Tab) 50 mg TID PRN PO 01/04/18 15:00 02/03/18 14:59 Future Hold Potassium Chloride (Klor-Con M10) 10 meq Q2D@0900 PO 01/05/18 09:00 02/04/18 08:59 01/05/18 07:43 10 MEQ Pantoprazole Sodium (Protonix Tab) 40 mg QAM PO 01/05/18 09:00 02/04/18 08:59 01/06/18 07:41 40 MG Ioversol (Optiray 320) 125 ml UD PRN IV 01/04/18 16:00 01/08/18 15:59 Tramadol HCl (Ultram Tab) 50 mg Q4H PRN PO 01/04/18 16:45 02/03/18 16:44 01/06/18 07:44 50 MG Benzonatate (Tessalon Perles Cap) 100 mg TID PRN PO 01/06/18 10:30 02/05/18 10:29 Menthol (Nice Sulema) 1 sulema PRN PRN SULEMA 01/06/18 10:30 02/05/18 10:29 Methylprednisolone Sodium Succinate 40 mg/Syringe 0.64 ml @ 1.5 mls/min Q12 IV 01/06/18 21:00 02/03/18 14:29 Sodium Chloride 1,000 ml @ 75 mls/hr [id number] IV 01/07/18 00:00 02/06/18 00:00
[2018-01-06] MEDS: AZITHROMYCIN IV 500 MG in DEXTROSE 5% 250ML 250 ML IV SCH (15:20)
[2018-01-06] MEDS: ATORVASTATIN 40 MG TAB PO SCH (20:30)
[2018-01-06] MEDS: LOSARTAN POTASSIUM 25 MG TAB PO SCH (20:31)
[2018-01-06] MEDS: SODIUM CHLORIDE 0.9% 1000ML 1,000 ML IV SCH (23:28)
[2018-01-07] VITALS (16 sets, daily range): BP systolic 121–171; BP diastolic 56–92; PULSE 76–120; TEMP 36.4–37.1; O2SAT 93–99
[2018-01-07] MEDS: LEVALBUTEROL 1.25MG/0.5ML NEB INH SCH ×7 (03:12→22:33)
[2018-01-07] MEDS: HEPARIN SOD 5000 UNIT/0.5 ML CARP SQ SCH ×3 (04:00→20:00)
[2018-01-07 06:44] LABS: HEMATOCRIT 38.6 % (37-47); HEMOGLOBIN 12.5 g/dL (12.0-16.0); MEAN CELL VOLUME 89.6 fL (80-100); MEAN CORPUSCULAR HGB CONC 32.4 g/dl (32-36); MEAN PLATELET VOLUME 10.5 fL (7.4-10.4); PLATELET COUNT 279 K/uL (130-400); RED CELL DISTRIBUTION WIDTH CV 13.7 % (11.5-14.5); RED CELL DISTRIBUTION WIDTH SD 45.4 fL (36.4-46.3); WHITE BLOOD COUNT 21.96 K/uL (4.8-10.8)
[2018-01-07 07:19] LABS: CALCIUM 8.8 mg/dl (8.5-10.1); CREATININE 0.86 mg/dl (0.60-1.20); POTASSIUM 5.1 mmol/L (3.5-5.1)
[2018-01-07] MEDS: METHYLPREDNISOLONE IV 40 MG in SYRINGE 0 ML IV SCH ×2 (08:27→20:16)
[2018-01-07] MEDS: BUDESONIDE/FORMOTEROL FUMARATE 160/4.5 60 PUFFS/INHALER INH SCH ×2 (08:27→20:15)
[2018-01-07] MEDS: TIOTROPIUM BROMIDE 5 PUFF/90 MCG INH INH SCH (08:28)
[2018-01-07] MEDS: POTASSIUM CHLORIDE 10 MEQ TABCR PO SCH (09:00)
[2018-01-07] MEDS ORDERED: IPRATROPIUM BROMIDE NEB SOLN 0.02% 2.5 ML VIAL INH STA (09:09)
[2018-01-07] MEDS ORDERED: LEVALBUTEROL 1.25MG/3ML NEB INH ONE (09:15)
[2018-01-07] MEDS ORDERED: LEVALBUTEROL/IPRATROPIUM NEB INH PRN (09:15)
[2018-01-07] MEDS ORDERED: LEVALBUTEROL 1.25MG/0.5ML NEB INH PRN (09:30)
[2018-01-07] MEDS ORDERED: IPRATROPIUM BROMIDE NEB SOLN 0.02% 2.5 ML VIAL INH PRN (09:30)
--- NOTE | 2018-01-07 09:57 | DIAGNOSTIC IMAGING REPORT ---
CHEST ONE VIEW PORTABLE CLINICAL HISTORY: r/o volume overload dyspnea COMPARISON STUDY: No previous studies for comparison. FINDINGS: Small parenchymal infiltrate/atelectasis left base. Lungs otherwise appear clear. Diaphragms smooth. IMPRESSION: Minimal atelectasis left base. Otherwise negative study. The above report was generated using voice recognition software. It may contain grammatical, syntax or spelling errors. Electronically signed by: Byron Reyes M.D. 01/07/2018 9:56 AM Dictated Date/Time: 01/07/2018 9:47 AM
--- NOTE | 2018-01-07 10:10 | Progress Note ---
Medicine Progress Note Date & Time of Visit: Jan 07, 2018 at 10:04. Subjective Called by RN currently this patient was noted to be drowsy not in distress though Patient seen and examined at the bedside noted to be drowsy opens eyes to try to answer by nodding in a few words and then drifts back to sleep Able to follow simple commands tongue midline can raise arms equally Denies chest pain shortness of breath Full ROS difficult to obtain as patient is drowsy Objective Last 8 Hrs Date Time Temp Pulse Resp B/P (MAP) Pulse Ox O2 Delivery O2 Flow Rate FiO2 01/07/18 09:20 106 20 97 BiPAP/CPAP 3.0 01/07/18 09:20 106 97 3.0 01/07/18 08:00 Nasal Cannula 2.0 01/07/18 07:20 36.4 100 24 139/62 (87) 99 Nasal Cannula 3.0 01/07/18 07:01 88 20 99 Nasal Cannula 3.0 01/07/18 04:00 96 Nasal Cannula 3.0 01/07/18 03:36 36.7 76 18 121/56 (77) 97 Physical Exam: General-oriented 3 not in distress speaking in sentences Eyes- anicteric Neck- no JVD Lungs-mild wheezes bilateral bases good air entry bilaterally Heart- regular rhythm; no murmur, normal rate Abdomen- normal bowel sounds, soft, nontender Extremities- no pretibial edema, no calf tenderness Neuro-drowsy but tongue midline, no lateralizing signs Skin- warm & dry Laboratory Results: Last 24 Hours Test 01/07/18 06:11 01/07/18 08:37 White Blood Count 21.96 K/uL Red Blood Count 4.31 M/uL Hemoglobin 12.5 g/dL Hematocrit 38.6 % Mean Corpuscular Volume 89.6 fL Mean Corpuscular Hemoglobin 29.0 pg Mean Corpuscular Hemoglobin Concent 32.4 g/dl RDW Standard Deviation 45.4 fL RDW Coefficient of Variation 13.7 % Platelet Count 279 K/uL Mean Platelet Volume 10.5 fL Sodium Level 138 mmol/L Potassium Level 5.1 mmol/L Chloride Level 99 mmol/L Carbon Dioxide Level 35 mmol/L Anion Gap 4.0 mmol/L Blood Urea Nitrogen 26 mg/dl Creatinine 0.86 mg/dl Est Creatinine Clear Calc Drug Dose 56.6 ml/min Estimated GFR () 77.1 Estimated GFR (Non- 66.6 BUN/Creatinine Ratio 30.1 Random Glucose 141 mg/dl Calcium Level 8.8 mg/dl Magnesium Level 2.8 mg/dl Arterial Blood pH 7.35 Arterial Blood Partial Pressure CO2 68 mmHg Arterial Blood Partial Pressure O2 84 mm/Hg Arterial Blood HCO3 37 mmol/L Arterial Blood Oxygen Saturation 95.5 % Arterial Blood Base Excess 8.8 mEq/L Arterial Blood Gas Delivery 2L Clarence Test POS Assessment & Plan Patient is a 72-year-old female with a past medical history of COPD (2-3L O2 at night), HTN, systolic CHF, chronic sinus tachycardia and other medical problems listed below who presents with worsening shortness of breath x 3 days. Acute on chronic hypoxic respiratory failure: -2/2 COPD exacerbation, possible pneumonia versus LEIGHANN -Requires 2-3 L O2 HS chronically -Has also been requiring 2-3 L O2 over the last few days -83% on room air initially. Now saturating in high 90s on 3 L NC -ABG with compensated respiratory acidosis -pH of 7.4, pCO2 of 54, pO2 of 63, bicarb of 32 Past few days the patient has been improving Back to baseline 3 L of nasal cannula Wheezing has resolved Today patient noted to be drowsy Also has positive bilateral mild wheeze ABG pH 7.35 CO2 in the 60s Repeat chest x-ray basically unchanged possible right lower lobe infiltrate Start BiPAP ordered Stat nebs ordered Patient will have repeat ABG at 10:30 AM Suspected LEIGHANN Pulmonary consulted Dr. Livingston Continue ceftriaxone and azithromycin Continue Solu-Medrol every 6 hours Plan for bronchoscopy today but will need to establish hypercapnia HTN: -Normotensive -Continue losartan,metoprolol Systolic CHF: -Compensated on exam -Most recent echo with improvement, EF of 58% -Lasix on hold patient n.p.o. for possible bronchoscopy today Monitor volume status closely -Continue losartan, metoprolol -Low Na diet Chronic sinus tachycardia: --2/2 pulmonary disease -Previous EKGs with HR: 120s -D dimer slightly elevated to 640 -Chest/thorax CTA no pulmonary embolism Chronic back pain, fibromyalgia: - PRN Oxy GERD: -Continue PPI DVT Ppx: SQ heparin Code status: FULL PCP: Red Dispo: Pending anticipate discharge to home when medically stable and cleared by pulmonary service Current Inpatient Medications: Current Inpatient Medications Medications (Trade) Dose Ordered Sig/Racheal Route Start Time Stop Time Status Last Admin Dose Admin Azithromycin 500 mg/Dextrose 255 ml @ 250 mls/hr Q24H IV 01/04/18 15:30 01/11/18 15:29 01/06/18 15:20 250 MLS/HR Ceftriaxone Sodium 1 gm/ Dextrose 50 ml @ 100 mls/hr Q24H IV 01/04/18 14:30 01/11/18 14:29 01/06/18 14:29 100 MLS/HR Levalbuterol (Xopenex 1.25MG/ 0.5ML Neb) 1.25 mg Q4R INH 01/04/18 16:00 02/03/18 15:59 01/07/18 09:20 1.25 MG Heparin Sodium (Porcine) (Heparin Sq 5000 Unit/0.5ml) 5,000 unit Q8H SQ 01/04/18 20:00 02/03/18 19:59 Acetaminophen (Tylenol Tab) 650 mg Q4H PRN PO 01/04/18 13:15 02/03/18 13:14 Al Hydrox/Mg Hydrox/Simethicone (Maalox Max Susp) 15 ml Q4H PRN PO 01/04/18 13:15 02/03/18 13:14 Magnesium Hydroxide (Milk Of Magnesia Susp) 30 ml Q12H PRN PO 01/04/18 13:15 02/03/18 13:14 Ondansetron HCl (Zofran Inj) 4 mg Q6H PRN IV 01/04/18 13:15 02/03/18 13:14 01/06/18 06:11 4 MG Nitroglycerin (Nitrostat Tab) 0.4 mg UD PRN SL 01/04/18 13:15 02/03/18 13:14 Polyethylene (Miralax Powder Packet) 17 gm DAILY PRN PO 01/04/18 13:15 02/03/18 13:14 Albuterol (Ventolin Hfa Inhaler) 2 puffs Q4H PRN INH 01/04/18 15:00 02/03/18 14:59 Aspirin (Ecotrin Tab) 81 mg DAILY PO 01/05/18 09:00 02/04/18 08:59 01/06/18 07:41 81 MG Atorvastatin Calcium (Lipitor Tab) 40 mg HS PO 01/04/18 21:00 02/03/18 20:59 01/06/18 20:30 40 MG Budesonide/ Formoterol Fumarate (Symbicort 160/ 4.5 Inh) 2 puffs BID INH 01/04/18 21:00 02/03/18 20:59 01/07/18 08:27 2 PUFFS Calcium Carbonate (Tums Chew Tab) 750 mg DAILY PO 01/05/18 09:00 02/04/18 08:59 01/06/18 07:42 750 MG Losartan Potassium (coZAAR TAB) 25 mg QPM PO 01/04/18 21:00 02/03/18 20:59 01/06/18 20:31 25 MG Metoprolol Succinate (Toprol Xl Tab) 25 mg DAILY PO 01/05/18 09:00 02/04/18 08:59 01/06/18 07:41 25 MG Tiotropium [place] (Spiriva Handihaler Inhaler) 1 puff DAILY INH 01/05/18 09:00 02/04/18 08:59 01/07/18 08:28 1 PUFF Tramadol HCl (Ultram Tab) 50 mg TID PRN PO 01/04/18 15:00 02/03/18 14:59 Future Hold Potassium Chloride (Klor-Con M10) 10 meq Q2D@0900 PO 01/05/18 09:00 02/04/18 08:59 01/05/18 07:43 10 MEQ Pantoprazole Sodium (Protonix Tab) 40 mg QAM PO 01/05/18 09:00 02/04/18 08:59 01/06/18 07:41 40 MG Ioversol (Optiray 320) 125 ml UD PRN IV 01/04/18 16:00 01/08/18 15:59 Tramadol HCl (Ultram Tab) 50 mg Q4H PRN PO 01/04/18 16:45 02/03/18 16:44 01/06/18 07:44 50 MG Menthol (Nice Sulema) 1 sulema PRN PRN SULEMA 01/06/18 10:30 02/05/18 10:29 Methylprednisolone Sodium Succinate 40 mg/Syringe 0.64 ml @ 1.5 mls/min Q12 IV 01/06/18 21:00 02/03/18 14:29 01/07/18 08:27 1.5 MLS/MIN Sodium Chloride 1,000 ml @ 75 mls/hr [id number] IV 01/07/18 00:00 02/06/18 00:00 01/06/18 23:28 75 MLS/HR Ipratropium [place] (Atrovent 0.02% 0.5MG/2.5ML Neb) 0.5 mg Q4R PRN INH 01/07/18 09:30 02/06/18 09:29 Levalbuterol (Xopenex 1.25MG/ 0.5ML Neb) 1.25 mg Q4R PRN INH 01/07/18 09:30 02/06/18 09:29
[2018-01-07] MEDS: PANTOprazole SOD 40 MG TAB PO SCH (11:09)
[2018-01-07] MEDS: METOPROLOL SUCC 25MG EXT REL TAB PO SCH (11:09)
[2018-01-07] MEDS: ASPIRIN 81 MG ECTAB PO SCH (11:10)
[2018-01-07] MEDS: CALCIUM CARBONATE 500 MG CHEWABLE PO SCH (11:10)
--- NOTE | 2018-01-07 11:27 | PULMONARY PROGRESS NOTE ---
DATE: 01/07/2018 TIME: 11:00 a.m. SUBJECTIVE: The patient has a frequent cough today. She is bringing up green sputum. She states she feels better today. However, this morning she was having some respiratory issues. She was very drowsy early this morning. A blood gas was ordered for her. The blood gas done at 8:37 a.m. showed a pH of 7.35 with a pCO2 of 68 and a pO2 of 84 on 2 liters. The pCO2 on 01/04/2018 had been 54 and has now risen up to 68. The patient is able to talk in clear sentences. She does not seem confused at present. OBJECTIVE: GENERAL: The patient did not appear in distress. She is coughing frequently. VITAL SIGNS: Current temperature 36.4. She has not had any significant fevers except for 37.4 soon after admission on 01/04/2018. HEENT: Pupils are reactive. She has had prior cataract surgery. Nares are unremarkable. Nasal cannula is in place. Mouth exam shows dentures on top and absence of teeth on the bottom. NECK: Palpation of the neck reveals no lymph nodes. HEART: Cardiac rate is elevated at 114 per minute. The rhythm is regular. Telemetry suggests sinus tachycardia. Blood pressure is 140/75. LUNGS: Auscultation reveals diffuse wheezes bilaterally. She is moderately tight. She coughs hard but does not expectorate during my exam. Respiratory rate is 18 breaths per minute. Oxygen saturation initially was 96%, but during the coughing spell, she went down to 85%. She has nasal cannula 2 liters. EXTREMITIES: Show no cyanosis, clubbing or edema. ABDOMEN: Soft and nontender with good bowel sounds. LABORATORY DATA: White count today is 21.96, hemoglobin 12.5, platelets 279,000. Electrolytes show sodium 138, potassium 5.1, chloride 99 and bicarbonate 35. BUN was 26 with a creatinine of 0.86. The patient's CAT scan of the chest, as mentioned previously, shows fairly widespread tree-in-bud opacities throughout both lungs. IMPRESSIONS: 1. Respiratory failure -- acute on chronic, with hypoxia and hypercarbia. 2. Chronic obstructive pulmonary disease exacerbation. 3. Diffuse tree-in-bud opacities -- rule out atypical Mycobacterium infection. 4. Leukocytosis. COMMENTS AND RECOMMENDATIONS: There was some thought she might be having bronchoscopy today. She should not have bronchoscopy at present. Her pCO2 levels are significantly elevated. She could only be done if on mechanical ventilation. We will try and resolve her by other means. I am going to order AFB for 3 separate days, these have not been collected. They have just done sputum for Gram stain and culture today. I am encouraging her to wear the BiPAP. She is resistant because she is somewhat claustrophobic but the nurse felt she did better this morning when she had it on for 1 hour. We need to encourage her to keep wearing this, particularly with the CO2 retention. She is ordered neb treatments with levalbuterol every 4 hours. She also has p.r.n. treatments. She is on methylprednisolone 40 mg IV q. 12. She is on Tiotropium daily. She is on Symbicort 160/4.5 two puffs b.i.d. She is on azithromycin and ceftriaxone. We will continue those until we see what the sputum cultures show. We will order a flutter valve if she does not already have one. I am going to check AFB smears for 3 days. We should keep her oxygen saturations between 88-92 in order to stimulate ventilation. She may benefit from a vest to help with secretion clearance.
[2018-01-07] MEDS ORDERED: NURSING VERBAL MED ORDER ONE (11:45)
[2018-01-07] MEDS: SODIUM CHLORIDE 0.9% 1000ML 1,000 ML IV SCH (13:13)
[2018-01-07] MEDS: CEFTRIAXONE SOD INJ 1 GM in DEXTROSE 5% ADD-VANTAGE 50ML 50 ML IV SCH (14:03)
[2018-01-07] MEDS: AZITHROMYCIN IV 500 MG in DEXTROSE 5% 250ML 250 ML IV SCH (15:06)
[2018-01-07] MEDS: TRAMADOL HCL 50 MG TAB PO PRN (18:21)
[2018-01-07] MEDS: ATORVASTATIN 40 MG TAB PO SCH (20:17)
[2018-01-07] MEDS: LOSARTAN POTASSIUM 25 MG TAB PO SCH (20:17)
[2018-01-08] VITALS (11 sets, daily range): BP systolic 142–172; BP diastolic 62–98; PULSE 97–110; TEMP 36.5–37.1; O2SAT 92–99
[2018-01-08] MEDS: LEVALBUTEROL 1.25MG/0.5ML NEB INH SCH ×6 (03:20→23:57)
[2018-01-08] MEDS: HEPARIN SOD 5000 UNIT/0.5 ML CARP SQ SCH ×3 (04:00→19:58)
[2018-01-08] MEDS: TRAMADOL HCL 50 MG TAB PO PRN ×3 (04:03→21:39)
[2018-01-08] MEDS: METOPROLOL SUCC 25MG EXT REL TAB PO SCH (07:40)
[2018-01-08] MEDS: CALCIUM CARBONATE 500 MG CHEWABLE PO SCH (07:40)
[2018-01-08] MEDS: PANTOprazole SOD 40 MG TAB PO SCH (07:40)
[2018-01-08] MEDS: BUDESONIDE/FORMOTEROL FUMARATE 160/4.5 60 PUFFS/INHALER INH SCH ×2 (07:40→20:10)
[2018-01-08] MEDS: ASPIRIN 81 MG ECTAB PO SCH (07:41)
[2018-01-08] MEDS: METHYLPREDNISOLONE IV 40 MG in SYRINGE 0 ML IV SCH ×2 (07:41→20:13)
[2018-01-08] MEDS: TIOTROPIUM BROMIDE 5 PUFF/90 MCG INH INH SCH (08:34)
[2018-01-08 09:19] LABS: HEMATOCRIT 41.5 % (37-47); HEMOGLOBIN 13.1 g/dL (12.0-16.0); MEAN CELL VOLUME 89.6 fL (80-100); MEAN CORPUSCULAR HEMOGLOBIN 28.3 pg (25-34); MEAN CORPUSCULAR HGB CONC 31.6 g/dl (32-36); MEAN PLATELET VOLUME 10.3 fL (7.4-10.4); PLATELET COUNT 289 K/uL (130-400); RED CELL DISTRIBUTION WIDTH CV 13.7 % (11.5-14.5); RED CELL DISTRIBUTION WIDTH SD 45.2 fL (36.4-46.3); WHITE BLOOD COUNT 19.88 K/uL (4.8-10.8)
[2018-01-08 09:42] LABS: CALCIUM 9.1 mg/dl (8.5-10.1); CREATININE 0.82 mg/dl (0.60-1.20); POTASSIUM 3.8 mmol/L (3.5-5.1)
--- NOTE | 2018-01-08 11:21 | PULMONARY PROGRESS NOTE ---
DATE: 01/08/2018 PROBLEM LIST: Includes: 1. Respiratory failure, [id number] with hypoxia and hypercarbia. 2. Chronic obstructive pulmonary disease with exacerbation. 3. Diffuse tree-in-bud opacities. 4. Leukocytosis. SUBJECTIVE: The patient reports to me that she is feeling a little bit better today. She states that she still is coughing, but the coughing is less. She states that the mucus she is bringing up, still has a little bit of discoloration to it, which is green; however, there is less mucus than there was previously. She still is having some fatigue, which she feels that that is better. She thinks she has a little bit more energy. She feels that she is able to do a little bit more without becoming short of breath. She denies any chest discomfort, no palpitations, no angina. She denies any GI difficulties. No nausea or vomiting. Her appetite is normal. No difficulty with her bowels, no difficulty with voiding. She is not using the BiPAP. We had a long discussion about the benefits of BiPAP in getting the CO2 level down and getting her home sooner. However, she states she is very claustrophobic and refuses to use it. She does not feel that it is helpful. Did discuss with nursing and nursing has been trying to get her to wear the BiPAP as well. They did get her to wear the BiPAP for about an hour yesterday and she did seem to do better. She denies any other needs or concerns at this time. OBJECTIVE: GENERAL: The patient is a 72-year-old female lying in bed. She is in no acute distress, no respiratory distress. She was sleeping when I entered, but awoke easily, appeared alert and oriented, able to talk in sentences without becoming dyspneic. VITAL SIGNS: Temp 36.5, pulse 97, respirations 24, blood pressure is 158/79, pulse ox is 98% on 2 liters. HEENT: Normocephalic, atraumatic. Pupils are equal, round and reactive to light and accommodation. Extraocular movements are intact. [place] moist gingival and buccal mucosa. NECK: Short, thick, no mass, no adenopathy, no bruit. CHEST: She does have some expiratory wheezes bilaterally. She does have some chest tightness. A little bit of decreased breath sounds. She did have some coughing following examination and was able to expectorate a light green mucus with what appeared to be some blood tinging. CARDIOVASCULAR: Regular rate and rhythm. No murmurs, gallops or rubs. ABDOMEN: Obese, soft, nontender. No guarding, rigidity or organomegaly. EXTREMITIES: No erythema or edema. NEUROLOGIC: Cranial nerves II through XII are intact. No focal deficit noted. LABORATORY DATA: Shows a white count of 19,000, H&H 13.1 and 41.5, platelet count 289,000. ABG today shows a pH of 7.4, pCO2 is down to 57 from 60 yesterday, pO2 is 89. Sputum culture is pending. The patient has had 2 AFBs, which are pending. The third has been obtained for today. No new imaging data. IMPRESSION: 1. This is a 72-year-old female with known chronic obstructive pulmonary disease who was admitted with respiratory failure, which is [id number] with hypoxia and hypercarbia. From what I can gather from previous notes and talking with nursing as well as discussion with the patient, the patient is showing some signs of improvement. We did have a long discussion regarding the BiPAP. I feel that it would be beneficial for her and did explain this to her. We explained the benefits in reducing CO2 as well as improving her lethargy and helping to mobilize secretions; however, the patient did not seem amenable to using it. I did discuss with nursing to keep trying to get her to use it even if it is for short periods of time. Otherwise, she is to be continued on her current level of Solu-Medrol at least for another day. Continue vibration vest and the flutter valve, which has already been started. Continue routine nebulization. Currently, she is on Zithromax and Rocephin. We will continue this for the time being. We are awaiting a sputum culture as well as sputum AFBs. 2. Chronic obstructive pulmonary disease exacerbation. See above. 3. Diffuse tree-in-bud opacities, rule out atypical Mycobacterium. If CO2 continues to come down, we may be able to reconsider a bronchoscopic evaluation on this patient for better culture; however, for the time being, we will hold off. 4. Leukocytosis, suspect in part related to the steroids. This does seem to be improving. At this point, continue to monitor the patient. We will reevaluate her in the morning. JUAN
[2018-01-08] MEDS: CEFTRIAXONE SOD INJ 1 GM in DEXTROSE 5% ADD-VANTAGE 50ML 50 ML IV SCH (13:45)
--- NOTE | 2018-01-08 14:30 | Progress Note ---
Medicine Progress Note Date & Time of Visit: Jan 08, 2018 at 14:07. Subjective Pt was seen and examined Sitting in chair with no distress Pt said that her breathing improved She continues refusing to use the BIPAP Denies any chest pain, palpitation and fever Objective Last 8 Hrs Date Time Temp Pulse Resp B/P (MAP) Pulse Ox O2 Delivery O2 Flow Rate FiO2 01/08/18 12:15 36.5 104 26 159/95 (116) 96 Nasal Cannula 2.0 01/08/18 12:00 Nasal Cannula 2.0 01/08/18 11:17 108 18 92 Nasal Cannula 2.0 01/08/18 08:00 Nasal Cannula 2.0 01/08/18 08:00 36.5 97 24 158/79 (105) 98 Nasal Cannula 2.0 01/08/18 07:11 104 18 99 Nasal Cannula 3.0 Physical Exam: General- no acute distress Head- atraumatic Eyes- PERRL, EOMI ENT- oropharynx clear Neck- supple, no JVD Lungs- +mild wheezing Heart- regular rhythm Abdomen- normal bowel sounds, soft Extremities-no calf tenderness Neuro- alert, oriented, PERRL, EOMI; no facial palsy Skin- warm & dry Laboratory Results: Last 24 Hours Test 01/08/18 08:58 White Blood Count 19.88 K/uL Red Blood Count 4.63 M/uL Hemoglobin 13.1 g/dL Hematocrit 41.5 % Mean Corpuscular Volume 89.6 fL Mean Corpuscular Hemoglobin 28.3 pg Mean Corpuscular Hemoglobin Concent 31.6 g/dl RDW Standard Deviation 45.2 fL RDW Coefficient of Variation 13.7 % Platelet Count 289 K/uL Mean Platelet Volume 10.3 fL Arterial Blood pH 7.41 Arterial Blood Partial Pressure CO2 57 mmHg Arterial Blood Partial Pressure O2 89 mm/Hg Arterial Blood HCO3 35 mmol/L Arterial Blood Oxygen Saturation 96.7 % Arterial Blood Base Excess 8.1 mEq/L Arterial Blood Gas Delivery 2L Clarence Test POS Sodium Level 138 mmol/L Potassium Level 3.8 mmol/L Chloride Level 97 mmol/L Carbon Dioxide Level 36 mmol/L Anion Gap 5.0 mmol/L Blood Urea Nitrogen 20 mg/dl Creatinine 0.82 mg/dl Est Creatinine Clear Calc Drug Dose 59.1 ml/min Estimated GFR () 81.7 Estimated GFR (Non- 70.5 BUN/Creatinine Ratio 25.1 Random Glucose 148 mg/dl Calcium Level 9.1 mg/dl Magnesium Level 2.7 mg/dl Date/Time Source Procedure Growth Status 01/08/18 01:30 Sputum Expectorated Sputum Acid Fast Stain Pending Received 01/08/18 01:30 Sputum Expectorated Sputum Mycobacterial Culture Pending Received Assessment & Plan Patient is a 72-year-old female with a past medical history of COPD (2-3L O2 at night), HTN, systolic CHF, chronic sinus tachycardia and other medical problems listed below who presents with worsening shortness of breath x 3 days. Acute on chronic hypoxia hypercapnia respiratory failure Possible related to COPD exacerbation vs pneumonia vs LEIGHANN ABG with compensated respiratory acidosis (pH of 7.4, pCO2 of 57, pO2 of 89, bicarb of 35 Refused to use Bipap Continue supplement oxygen Continue respiratory treatmet On solumedrol taper On Zithromax and IV Rocephin abx. bronch was postpone yesterday due to pt was lethargy AFB pending Pulmonary on board HTN: Continue losartan,metoprolol Monitor BP Systolic CHF: Compensated on exam Most recent echo with improvement, EF of 58% Will resume Lasix Continue losartan, metoprolol Chronic sinus tachycardia: Possible related to acute respiratory illness and neb treatment Chest/thorax CTA showed no pulmonary embolism Stable Chronic back pain Fibromyalgia: Continue pain control GERD: Continue PPI DVT Ppx: SQ heparin Code status: FULL Current Inpatient Medications: Current Inpatient Medications Medications (Trade) Dose Ordered Sig/Racheal Route Start Time Stop Time Status Last Admin Dose Admin Azithromycin 500 mg/Dextrose 255 ml @ 250 mls/hr Q24H IV 01/04/18 15:30 01/11/18 15:29 01/07/18 15:06 250 MLS/HR Ceftriaxone Sodium 1 gm/ Dextrose 50 ml @ 100 mls/hr Q24H IV 01/04/18 14:30 01/11/18 14:29 01/08/18 13:45 100 MLS/HR Levalbuterol (Xopenex 1.25MG/ 0.5ML Neb) 1.25 mg Q4R INH 01/04/18 16:00 02/03/18 15:59 01/08/18 11:16 1.25 MG Heparin Sodium (Porcine) (Heparin Sq 5000 Unit/0.5ml) 5,000 unit Q8H SQ 3/23/18 20:00 02/03/18 19:59 Acetaminophen (Tylenol Tab) 650 mg Q4H PRN PO 01/04/18 13:15 02/03/18 13:14 Al Hydrox/Mg Hydrox/Simethicone (Maalox Max Susp) 15 ml Q4H PRN PO 01/04/18 13:15 02/03/18 13:14 Magnesium Hydroxide (Milk Of Magnesia Susp) 30 ml Q12H PRN PO 01/04/18 13:15 02/03/18 13:14 Ondansetron HCl (Zofran Inj) 4 mg Q6H PRN IV 01/04/18 13:15 02/03/18 13:14 01/06/18 06:11 4 MG Nitroglycerin (Nitrostat Tab) 0.4 mg UD PRN SL 01/04/18 13:15 02/03/18 13:14 Polyethylene (Miralax Powder Packet) 17 gm DAILY PRN PO 01/04/18 13:15 02/03/18 13:14 Albuterol (Ventolin Hfa Inhaler) 2 puffs Q4H PRN INH 01/04/18 15:00 02/03/18 14:59 Aspirin (Ecotrin Tab) 81 mg DAILY PO 01/05/18 09:00 02/04/18 08:59 01/08/18 07:41 81 MG Atorvastatin Calcium (Lipitor Tab) 40 mg HS PO 01/04/18 21:00 02/03/18 20:59 01/07/18 20:17 40 MG Budesonide/ Formoterol Fumarate (Symbicort 160/ 4.5 Inh) 2 puffs BID INH 01/04/18 21:00 02/03/18 20:59 01/08/18 07:40 2 PUFFS Calcium Carbonate (Tums Chew Tab) 750 mg DAILY PO 01/05/18 09:00 02/04/18 08:59 01/08/18 07:40 750 MG Losartan Potassium (coZAAR TAB) 25 mg QPM PO 01/04/18 21:00 02/03/18 20:59 01/07/18 20:17 25 MG Metoprolol Succinate (Toprol Xl Tab) 25 mg DAILY PO 01/05/18 09:00 4/23/18 08:59 01/08/18 07:40 25 MG Tiotropium [place] (Spiriva Handihaler Inhaler) 1 puff DAILY INH 01/05/18 09:00 02/04/18 08:59 01/08/18 08:34 1 PUFF Tramadol HCl (Ultram Tab) 50 mg TID PRN PO 01/04/18 15:00 02/03/18 14:59 Future Hold Potassium Chloride (Klor-Con M10) 10 meq Q2D@0900 PO 01/05/18 09:00 02/04/18 08:59 Future hold 01/05/18 07:43 10 MEQ Pantoprazole Sodium (Protonix Tab) 40 mg QAM PO 01/05/18 09:00 02/04/18 08:59 01/08/18 07:40 40 MG Ioversol (Optiray 320) 125 ml UD PRN IV 01/04/18 16:00 01/08/18 15:59 Tramadol HCl (Ultram Tab) 50 mg Q4H PRN PO 01/04/18 16:45 02/03/18 16:44 01/08/18 04:03 50 MG Menthol (Nice Sulema) 1 sulema PRN PRN SULEMA 01/06/18 10:30 02/05/18 10:29 Methylprednisolone Sodium Succinate 40 mg/Syringe 0.64 ml @ 1.5 mls/min Q12 IV 01/06/18 21:00 02/03/18 14:29 01/08/18 07:41 1.5 MLS/MIN Ipratropium [place] (Atrovent 0.02% 0.5MG/2.5ML Neb) 0.5 mg Q4R PRN INH 01/07/18 09:30 02/06/18 09:29 Levalbuterol (Xopenex 1.25MG/ 0.5ML Neb) 1.25 mg Q4R PRN INH 01/07/18 09:30 02/06/18 09:29
[2018-01-08] MEDS ORDERED: FUROSEMIDE 20 MG TAB PO ONE (14:45)
[2018-01-08] MEDS: AZITHROMYCIN IV 500 MG in DEXTROSE 5% 250ML 250 ML IV SCH (15:21)
[2018-01-08] MEDS: ATORVASTATIN 40 MG TAB PO SCH (20:11)
[2018-01-08] MEDS: LOSARTAN POTASSIUM 25 MG TAB PO SCH (20:12)
[2018-01-09] VITALS (10 sets, daily range): BP systolic 118–164; BP diastolic 67–116; PULSE 92–111; TEMP 36.4–37; O2SAT 92–97
[2018-01-09] MEDS: LEVALBUTEROL 1.25MG/0.5ML NEB INH SCH ×6 (03:13→23:13)
[2018-01-09] MEDS: HEPARIN SOD 5000 UNIT/0.5 ML CARP SQ SCH ×3 (03:51→20:50)
[2018-01-09] MEDS: BUDESONIDE/FORMOTEROL FUMARATE 160/4.5 60 PUFFS/INHALER INH SCH ×2 (08:08→20:50)
[2018-01-09] MEDS: TIOTROPIUM BROMIDE 5 PUFF/90 MCG INH INH SCH (08:08)
[2018-01-09] MEDS: METOPROLOL SUCC 25MG EXT REL TAB PO SCH (08:09)
[2018-01-09] MEDS: PANTOprazole SOD 40 MG TAB PO SCH (08:09)
[2018-01-09] MEDS: ASPIRIN 81 MG ECTAB PO SCH (08:09)
[2018-01-09] MEDS: METHYLPREDNISOLONE IV 40 MG in SYRINGE 0 ML IV SCH ×2 (08:09→20:50)
[2018-01-09] MEDS: CALCIUM CARBONATE 500 MG CHEWABLE PO SCH (08:09)
[2018-01-09] MEDS: TRAMADOL HCL 50 MG TAB PO PRN ×3 (09:10→23:18)
[2018-01-09] MEDS: POTASSIUM CHLORIDE 10 MEQ TABCR PO SCH (09:10)
[2018-01-09 10:16] LABS: HEMATOCRIT 44.5 % (37-47); HEMOGLOBIN 14.1 g/dL (12.0-16.0); MEAN CELL VOLUME 89.9 fL (80-100); MEAN CORPUSCULAR HEMOGLOBIN 28.5 pg (25-34); MEAN CORPUSCULAR HGB CONC 31.7 g/dl (32-36); MEAN PLATELET VOLUME 10.5 fL (7.4-10.4); PLATELET COUNT 314 K/uL (130-400); RED CELL DISTRIBUTION WIDTH CV 13.5 % (11.5-14.5); RED CELL DISTRIBUTION WIDTH SD 44.5 fL (36.4-46.3); WHITE BLOOD COUNT 20.72 K/uL (4.8-10.8)
[2018-01-09 10:34] LABS: CALCIUM 9.1 mg/dl (8.5-10.1); CREATININE 0.75 mg/dl (0.60-1.20); POTASSIUM 3.9 mmol/L (3.5-5.1)
--- NOTE | 2018-01-09 11:27 | PROGRESS NOTE ---
DATE: 01/09/2018 PROBLEM LIST: Includes: 1. Respiratory failure, acute on chronic, with hypoxia and hypercarbia. 2. Chronic obstructive pulmonary disease with exacerbation. 3. Diffuse tree-in-bud opacities. 4. Leukocytosis. SUBJECTIVE: The patient reports that she is actually feeling significantly improved today. She feels that her breathing is doing better. She is not as tight in her chest. She is not as short of breath. She is not having as much coughing. The cough is a little bit looser. She still is wearing her oxygen through the day which she does not typically do this at home. Typically, she just wears her oxygen at night unless she is ill. She does have a pulse ox at home and in that she will check her oxygen saturations. She has been up walking around. She is actually sitting in the bedside chair today. She feels that the nebulizer is helping. She also is using her flutter valve and her vibration vest. She feels that these are helpful as well. She has not had any other difficulties. No chest pain, no palpitations, no angina. No GI symptoms. No nausea. Her appetite is good. Her bowels are moving well. She has not noted any increased swelling in her extremities. OBJECTIVE: GENERAL: The patient is a 72-year-old female sitting in bedside chair, in no acute distress. She is alert, interactive and cooperative, does appear to be oriented to person, place and time. VITAL SIGNS: Temp 36.9, pulse is 100, respirations 18, blood pressure 129/86, pulse ox is ranging from 90-97% on 2 liters. NECK: Supple. No mass, no adenopathy, no bruit. CHEST: Continues with diminished breath sounds. I did not really appreciate any significant wheezing today which is improvement from yesterday. She does have better breath sounds today than yesterday. No rale or rhonchi. CARDIOVASCULAR: Regular rate and rhythm. There are no murmurs, gallops or rubs noted. ABDOMEN: Soft, nontender. Bowel sounds are present. EXTREMITIES: No erythema, trace edema bilaterally, no tenderness to palpation. No cyanosis or clubbing noted. LABORATORY DATA: Pending for today. Sputum culture preliminary is showing moderate normal nayely. Initial AFB, no acid fast bacilli seen on the smear. Culture is pending. IMPRESSION: 1. A 72-year-old female, known chronic obstructive pulmonary disease, who was admitted with acute on chronic respiratory failure with hypoxia and hypercarbia. At this point, the patient is improving. Her oxygen demand is lowering. I think at this point we can try her on room air throughout the day with close monitoring, and as long as her sats stay above 88%, then we can continue on room air. If drops below 88%, then titrate oxygen to maintain sats above that level. Again, we had a long discussion regarding her BiPAP. She again refuses to use it despite the risks of not using it. On and off, the patient would be willing to try Trilogy where she can control it a little bit more and she can use the mouthpiece without having to use the full mask, this may be something to discuss in the office. I would recommend that she continue flutter valve and the vibration vest for the time being. 2. Chronic obstructive pulmonary disease exacerbation, improving. 3. Diffuse tree-in-bud opacities. There is a question of an atypical Mycobacterium. At this point, her initial sputum smear showed no evidence of AFB. We will await the 2nd and 3rd. May need to consider bronchoscopic evaluation but I would wait until the patient is a little bit better to do this. 4. Leukocytosis. Awaiting today's CBC, I do not have the results for that yet. At this point, I think that the patient can be safely transferred to regular medical floor. Would encourage ambulation. Think we can titrate the oxygen down and see how she does. If she continues to do well, then from a pulmonary standpoint, she may be ready to discharge to home tomorrow.
[2018-01-09] MEDS: CEFTRIAXONE SOD INJ 1 GM in DEXTROSE 5% ADD-VANTAGE 50ML 50 ML IV SCH (14:40)
[2018-01-09] MEDS: AZITHROMYCIN IV 500 MG in DEXTROSE 5% 250ML 250 ML IV SCH (16:20)
[2018-01-09] MEDS: ATORVASTATIN 40 MG TAB PO SCH (20:50)
[2018-01-09] MEDS: LOSARTAN POTASSIUM 25 MG TAB PO SCH (20:50)
--- NOTE | 2018-01-09 23:49 | Progress Note ---
Medicine Progress Note Date & Time of Visit: Jan 09, 2018 at 11:49. Subjective Pt was seen and examined Sitting in chair with no distress Pt said that her breathing feels much better Denies any chest pain, palpitation, dizziness and fever Objective Last 8 Hrs Date Time Temp Pulse Resp B/P (MAP) Pulse Ox O2 Delivery O2 Flow Rate FiO2 01/09/18 23:22 37.0 97 18 155/79 (104) 93 Nasal Cannula 2.0 01/09/18 23:13 92 20 92 Nasal Cannula 2.0 01/09/18 19:45 93 20 92 Nasal Cannula 2.0 Physical Exam: General- no acute distress Head- atraumatic Eyes- PERRL, EOMI ENT- oropharynx clear Neck- supple, no JVD Lungs- +faint wheezing Heart- regular rhythm Abdomen- normal bowel sounds, soft Extremities-no calf tenderness Neuro- alert, oriented, PERRL, EOMI; no facial palsy Skin- warm & dry Laboratory Results: Last 24 Hours Test 01/09/18 09:52 White Blood Count 20.72 K/uL Red Blood Count 4.95 M/uL Hemoglobin 14.1 g/dL Hematocrit 44.5 % Mean Corpuscular Volume 89.9 fL Mean Corpuscular Hemoglobin 28.5 pg Mean Corpuscular Hemoglobin Concent 31.7 g/dl RDW Standard Deviation 44.5 fL RDW Coefficient of Variation 13.5 % Platelet Count 314 K/uL Mean Platelet Volume 10.5 fL Sodium Level 137 mmol/L Potassium Level 3.9 mmol/L Chloride Level 93 mmol/L Carbon Dioxide Level 40 mmol/L Anion Gap 4.0 mmol/L Blood Urea Nitrogen 20 mg/dl Creatinine 0.75 mg/dl Est Creatinine Clear Calc Drug Dose 64.6 ml/min Estimated GFR () 91.0 Estimated GFR (Non- 78.5 BUN/Creatinine Ratio 27.3 Random Glucose 127 mg/dl Calcium Level 9.1 mg/dl Date/Time Source Procedure Growth Status 01/09/18 00:00 Sputum Expectorated Sputum Acid Fast Stain Pending Received 01/09/18 00:00 Sputum Expectorated Sputum Mycobacterial Culture Pending Received Assessment & Plan Patient is a 72-year-old female with a past medical history of COPD (2-3L O2 at night), HTN, systolic CHF, chronic sinus tachycardia and other medical problems listed below who presents with worsening shortness of breath x 3 days. Acute on chronic hypoxia hypercapnia respiratory failure Possible related to COPD exacerbation vs pneumonia vs LEIGHANN ABG with compensated respiratory acidosis (pH of 7.4, pCO2 of 57, pO2 of 89, bicarb of 35 Refused to use Bipap Continue supplement oxygen Continue respiratory treatmet On solumedrol taper On Zithromax and IV Rocephin abx. bronch was postpone yesterday due to pt was lethargy AFB pending Pulmonary on board HTN: Continue losartan,metoprolol Monitor BP Systolic CHF: Compensated on exam Most recent echo with improvement, EF of 58% Will resume Lasix Continue losartan, metoprolol Chronic sinus tachycardia: Possible related to acute respiratory illness and neb treatment Chest/thorax CTA showed no pulmonary embolism Stable Chronic back pain Fibromyalgia: Continue pain control GERD: Continue PPI DVT Ppx: SQ heparin Code status: FULL Current Inpatient Medications: Current Inpatient Medications Medications (Trade) Dose Ordered Sig/Racheal Route Start Time Stop Time Status Last Admin Dose Admin Azithromycin 500 mg/Dextrose 255 ml @ 250 mls/hr Q24H IV 01/04/18 15:30 01/11/18 15:29 01/09/18 16:20 250 MLS/HR Ceftriaxone Sodium 1 gm/ Dextrose 50 ml @ 100 mls/hr Q24H IV 01/04/18 14:30 01/11/18 14:29 01/09/18 14:40 100 MLS/HR Levalbuterol (Xopenex 1.25MG/ 0.5ML Neb) 1.25 mg Q4R INH 01/04/18 16:00 02/03/18 15:59 01/09/18 23:13 1.25 MG Heparin Sodium (Porcine) (Heparin Sq 5000 Unit/0.5ml) 5,000 unit Q8H SQ 01/04/18 20:00 02/03/18 19:59 Acetaminophen (Tylenol Tab) 650 mg Q4H PRN PO 01/04/18 13:15 02/03/18 13:14 Al Hydrox/Mg Hydrox/Simethicone (Maalox Max Susp) 15 ml Q4H PRN PO 01/04/18 13:15 02/03/18 13:14 Magnesium Hydroxide (Milk Of Magnesia Susp) 30 ml Q12H PRN PO 01/04/18 13:15 02/03/18 13:14 Ondansetron HCl (Zofran Inj) 4 mg Q6H PRN IV 01/04/18 13:15 02/03/18 13:14 01/06/18 06:11 4 MG Nitroglycerin (Nitrostat Tab) 0.4 mg UD PRN SL 01/04/18 13:15 02/03/18 13:14 Polyethylene (Miralax Powder Packet) 17 gm DAILY PRN PO 01/04/18 13:15 02/03/18 13:14 Albuterol (Ventolin Hfa Inhaler) 2 puffs Q4H PRN INH 01/04/18 15:00 02/03/18 14:59 Aspirin (Ecotrin Tab) 81 mg DAILY PO 01/05/18 09:00 02/04/18 08:59 01/09/18 08:09 81 MG Atorvastatin Calcium (Lipitor Tab) 40 mg HS PO 01/04/18 21:00 02/03/18 20:59 01/08/18 20:11 40 MG Budesonide/ Formoterol Fumarate (Symbicort 160/ 4.5 Inh) 2 puffs BID INH 01/04/18 21:00 02/03/18 20:59 01/09/18 08:08 2 PUFFS Calcium Carbonate (Tums Chew Tab) 750 mg DAILY PO 01/05/18 09:00 02/04/18 08:59 01/09/18 08:09 750 MG Losartan Potassium (coZAAR TAB) 25 mg QPM PO 01/04/18 21:00 02/03/18 20:59 01/08/18 20:12 25 MG Metoprolol Succinate (Toprol Xl Tab) 25 mg DAILY PO 01/05/18 09:00 02/04/18 08:59 01/09/18 08:09 25 MG Tiotropium [place] (Spiriva Handihaler Inhaler) 1 puff DAILY INH 01/05/18 09:00 02/04/18 08:59 01/09/18 08:08 1 PUFF Tramadol HCl (Ultram Tab) 50 mg TID PRN PO 01/04/18 15:00 02/03/18 14:59 Future Hold Potassium Chloride (Klor-Con M10) 10 meq Q2D@0900 PO 01/05/18 09:00 02/04/18 08:59 Future hold 01/09/18 09:10 10 MEQ Pantoprazole Sodium (Protonix Tab) 40 mg QAM PO 01/05/18 09:00 02/04/18 08:59 01/09/18 08:09 40 MG Tramadol HCl (Ultram Tab) 50 mg Q4H PRN PO 01/04/18 16:45 02/03/18 16:44 01/09/18 23:18 50 MG Menthol (Nice Sulema) 1 sulema PRN PRN SULEMA 01/06/18 10:30 02/05/18 10:29 Methylprednisolone Sodium Succinate 40 mg/Syringe 0.64 ml @ 1.5 mls/min Q12 IV 01/06/18 21:00 02/03/18 14:29 01/09/18 08:09 1.5 MLS/MIN Ipratropium [place] (Atrovent 0.02% 0.5MG/2.5ML Neb) 0.5 mg Q4R PRN INH 01/07/18 09:30 02/06/18 09:29 Levalbuterol (Xopenex 1.25MG/ 0.5ML Neb) 1.25 mg Q4R PRN INH 01/07/18 09:30 02/06/18 09:29 Furosemide (Lasix Tab) 20 mg Q2D@0900 PO 01/10/18 09:00 02/09/18 08:59
[2018-01-10] MEDS: LEVALBUTEROL 1.25MG/0.5ML NEB INH SCH ×4 (02:58→14:56)
[2018-01-10] MEDS: HEPARIN SOD 5000 UNIT/0.5 ML CARP SQ SCH ×2 (04:00→12:24)
[2018-01-10] MEDS: TRAMADOL HCL 50 MG TAB PO PRN ×2 (06:20→15:06)
[2018-01-10 07:04] VITALS: PULSE 88; O2SAT 91
[2018-01-10 07:05] VITALS: BP 145/97; PULSE 88; TEMP 36.6; O2SAT 90
[2018-01-10] MEDS: METOPROLOL SUCC 25MG EXT REL TAB PO SCH (08:18)
[2018-01-10] MEDS: PANTOprazole SOD 40 MG TAB PO SCH (08:18)
[2018-01-10] MEDS: BUDESONIDE/FORMOTEROL FUMARATE 160/4.5 60 PUFFS/INHALER INH SCH (08:19)
[2018-01-10] MEDS: ASPIRIN 81 MG ECTAB PO SCH (08:19)
[2018-01-10] MEDS: METHYLPREDNISOLONE IV 40 MG in SYRINGE 0 ML IV SCH (08:19)
[2018-01-10] MEDS: CALCIUM CARBONATE 500 MG CHEWABLE PO SCH (08:19)
[2018-01-10] MEDS: TIOTROPIUM BROMIDE 5 PUFF/90 MCG INH INH SCH (08:20)
[2018-01-10] MEDS ORDERED: FUROSEMIDE 20 MG TAB PO SCH (09:00)
--- NOTE | 2018-01-10 09:53 | PULMONARY PROGRESS NOTE ---
DATE: 01/10/2018 TIME: 9:15 a.m. SUBJECTIVE: The patient states she is doing well. She feels overall comfortable. She feels her breathing is better than she usually is at home. She is still coughing up some mucus. It is now light yellow. Days ago it was green. She is anxious to go home. OBJECTIVE: GENERAL: The patient appears comfortable. She is speaking clearly without any distress. She did not cough during the exam. VITAL SIGNS: Temperature is 36.6. ENT: Exam is unremarkable. HEART: Heart rate is 100 per minute. The rhythm is regular. Blood pressure 145/97. LUNGS: Lung ambriz reveal mild wheeze on expiration. Respiratory rate is 18. Saturation is 89% on room air. EXTREMITIES: Show no cyanosis, clubbing or edema. As of yesterday, her white count was still elevated at 20.72. It is unknown if this might be related to steroids. No labs were done today. The patient now has 3 sputums which are negative for AFB smear; however, the culture takes 4-8 weeks for completion. Usually atypical mycobacterials grow faster than MTB. IMPRESSIONS: 1. Respiratory failure -- acute on chronic with hypoxia and hypercarbia -- improved. 2. Chronic obstructive pulmonary disease exacerbation. 3. Tree-in-bud opacities. 4. Leukocytosis. COMMENTS AND RECOMMENDATIONS: The patient seems to be doing well. I believe she could be discharged when desired. Would send her home with prednisone 40 mg daily. She does have a followup with Holden Chauhan PA-C, in the office for next week. She does have oxygen at home. She needs to wear that nightly. I told her during the day she needs to wear it if her saturations are less than 88%. She does have a pulse oximeter. The patient does appear to have neb treatments at home with DuoNebs. I believe she should continue that. I believe these should be used 4 times a day regularly rather than just p.r.n. She should continue with Tiotropium. She should continue with Symbicort. She has had approximately 7 days of antibiotics, that likely is adequate. I spoke with her about the possibility of pulmonary rehab and she is interested. If she is doing well after she sees Holden Chauhan PA-C, he could arrange for the rehab. In the hospital, we were giving her levalbuterol by nebulizer rather than albuterol. If the patient felt that there was a significant benefit from the levalbuterol compared with albuterol, that could be switched as she goes home.
[2018-01-10 11:34] VITALS: PULSE 122; O2SAT 91
[2018-01-10] MEDS: CEFTRIAXONE SOD INJ 1 GM in DEXTROSE 5% ADD-VANTAGE 50ML 50 ML IV SCH (14:30)
[2018-01-10 14:56] VITALS: PULSE 92; O2SAT 98
[2018-01-10 15:02] VITALS: BP 145/97; PULSE 92; TEMP 36.6; O2SAT 98
--- NOTE | 2018-01-10 15:04 | Progress Note ---
Medicine Progress Note Date & Time of Visit: Jan 10, 2018 at 14:55. Subjective Pt was seen and examined Sitting in chair with no distress eating lunch Saturated well on RA Pt said that she feels back to her baseline Denies any chest pain, palpitation, dizziness and SOB Objective Last 8 Hrs Date Time Temp Pulse Resp B/P (MAP) Pulse Ox O2 Delivery O2 Flow Rate FiO2 01/10/18 11:34 122 18 91 Room Air 01/10/18 08:00 Nasal Cannula 2.0 01/10/18 07:05 36.6 88 17 145/97 (113) 90 Room Air 01/10/18 07:04 88 18 91 Room Air Physical Exam: General- no acute distress Head- atraumatic Eyes- PERRL, EOMI ENT- oropharynx clear Neck- supple, no JVD Lungs-No wheezing Heart- regular rhythm Abdomen- normal bowel sounds, soft Extremities-no calf tenderness Neuro- alert, oriented, PERRL, EOMI; no facial palsy Skin- warm & dry Assessment & Plan Patient is a 72-year-old female with a past medical history of COPD (2-3L O2 at night), HTN, systolic CHF, chronic sinus tachycardia and other medical problems listed below who presents with worsening shortness of breath x 3 days. Acute on chronic hypoxia hypercapnia respiratory failure Possible related to COPD exacerbation vs pneumonia vs LEIGHANN ABG with compensated respiratory acidosis (pH of 7.4, pCO2 of 57, pO2 of 89, bicarb of 35 Refused to use Bipap Continue supplement oxygen Continue respiratory treatmet On solumedrol taper On Zithromax and IV Rocephin abx. bronch was postpone yesterday due to pt was lethargy AFB pending Pulmonary on board 01/10 Clinically improves significantly Saturated well on RA Case discussed with pulmonology elayne Hodge from pulm standpoint to discharge home Continue prednisone taper advised pt to use her oxygen at night and during the day if oxygen sat drops bellow 88 Follow up with Pulmonology next week Completed course abx. HTN: Continue losartan,metoprolol Monitor BP Systolic CHF: Compensated on exam Most recent echo with improvement, EF of 58% Resume Lasix Continue losartan, metoprolol Elevated WBC Related to steroid Afebrile had been on Abx Chronic sinus tachycardia: Possible related to acute respiratory illness and neb treatment Chest/thorax CTA showed no pulmonary embolism Consider low dose Beta collin if BP elevates as well Stable Chronic back pain Fibromyalgia: Continue pain control GERD: Continue PPI DVT Ppx: SQ heparin Code status: FULL Disposition Discharge home today Follow up with PCP Dr. Moon on 01/15 @ 2:25 pm Follow up with your Lung specialist [facility] next week Current Inpatient Medications: Current Inpatient Medications Medications (Trade) Dose Ordered Sig/Racheal Route Start Time Stop Time Status Last Admin Dose Admin Azithromycin 500 mg/Dextrose 255 ml @ 250 mls/hr Q24H IV 01/04/18 15:30 01/11/18 15:29 01/09/18 16:20 250 MLS/HR Ceftriaxone Sodium 1 gm/ Dextrose 50 ml @ 100 mls/hr Q24H IV 01/04/18 14:30 01/11/18 14:29 01/09/18 14:40 100 MLS/HR Levalbuterol (Xopenex 1.25MG/ 0.5ML Neb) 1.25 mg Q4R INH 01/04/18 16:00 02/03/18 15:59 01/10/18 11:33 1.25 MG Heparin Sodium (Porcine) (Heparin Sq 5000 Unit/0.5ml) 5,000 unit Q8H SQ 01/04/18 20:00 02/03/18 19:59 01/10/18 12:24 5,000 UNIT Acetaminophen (Tylenol Tab) 650 mg Q4H PRN PO 01/04/18 13:15 02/03/18 13:14 Al Hydrox/Mg Hydrox/Simethicone (Maalox Max Susp) 15 ml Q4H PRN PO 01/04/18 13:15 02/03/18 13:14 Magnesium Hydroxide (Milk Of Magnesia Susp) 30 ml Q12H PRN PO 01/04/18 13:15 02/03/18 13:14 Ondansetron HCl (Zofran Inj) 4 mg Q6H PRN IV 01/04/18 13:15 02/03/18 13:14 01/06/18 06:11 4 MG Nitroglycerin (Nitrostat Tab) 0.4 mg UD PRN SL 01/04/18 13:15 02/03/18 13:14 Polyethylene (Miralax Powder Packet) 17 gm DAILY PRN PO 01/04/18 13:15 02/03/18 13:14 Albuterol (Ventolin Hfa Inhaler) 2 puffs Q4H PRN INH 01/04/18 15:00 02/03/18 14:59 Aspirin (Ecotrin Tab) 81 mg DAILY PO 01/05/18 09:00 02/04/18 08:59 01/10/18 08:19 81 MG Atorvastatin Calcium (Lipitor Tab) 40 mg HS PO 01/04/18 21:00 02/03/18 20:59 01/08/18 20:11 40 MG Budesonide/ Formoterol Fumarate (Symbicort 160/ 4.5 Inh) 2 puffs BID INH 01/04/18 21:00 02/03/18 20:59 01/10/18 08:19 2 PUFFS Calcium Carbonate (Tums Chew Tab) 750 mg DAILY PO 01/05/18 09:00 02/04/18 08:59 01/10/18 08:19 750 MG Losartan Potassium (coZAAR TAB) 25 mg QPM PO 01/04/18 21:00 02/03/18 20:59 01/08/18 20:12 25 MG Metoprolol Succinate (Toprol Xl Tab) 25 mg DAILY PO 01/05/18 09:00 02/04/18 08:59 01/10/18 08:18 25 MG Tiotropium [place] (Spiriva Handihaler Inhaler) 1 puff DAILY INH 01/05/18 09:00 02/04/18 08:59 01/10/18 08:20 1 PUFF Tramadol HCl (Ultram Tab) 50 mg TID PRN PO 01/04/18 15:00 02/03/18 14:59 Future Hold Potassium Chloride (Klor-Con M10) 10 meq Q2D@0900 PO 01/05/18 09:00 02/04/18 08:59 Future hold 01/09/18 09:10 10 MEQ Pantoprazole Sodium (Protonix Tab) 40 mg QAM PO 01/05/18 09:00 02/04/18 08:59 01/10/18 08:18 40 MG Tramadol HCl (Ultram Tab) 50 mg Q4H PRN PO 01/04/18 16:45 02/03/18 16:44 01/10/18 06:20 50 MG Menthol (Nice Sulema) 1 sulema PRN PRN SULEMA 01/06/18 10:30 02/05/18 10:29 Methylprednisolone Sodium Succinate 40 mg/Syringe 0.64 ml @ 1.5 mls/min Q12 IV 01/06/18 21:00 02/03/18 14:29 01/10/18 08:19 1.5 MLS/MIN Ipratropium [place] (Atrovent 0.02% 0.5MG/2.5ML Neb) 0.5 mg Q4R PRN INH 01/07/18 09:30 02/06/18 09:29 Levalbuterol (Xopenex 1.25MG/ 0.5ML Neb) 1.25 mg Q4R PRN INH 01/07/18 09:30 02/06/18 09:29 Furosemide (Lasix Tab) 20 mg Q2D@0900 PO 01/10/18 09:00 02/09/18 08:59 01/10/18 08:20 20 MG
[2018-01-10] MEDS ORDERED: PRD20 PO ×3 (15:09→15:56)
--- NOTE | 2018-01-10 15:16 | Discharge Instructions ---
Discharge Instructions Date of Service Jan 10, 2018. Admission Reason for Admission: Copd, Hypoxia, Respiratory Failure,[id number] Discharge Discharge Diagnosis / Problem: Acute on chronic hypoxia hypercapnia respiratory failure, sinus tachycardia Discharge Goals Goal(s): Decrease discomfort, Improve function, Improve disease control Activity Recommendations Activity Limitations: resume your previous activity (as tolerated) Instructions / Follow-Up Instructions / Follow-Up Follow up with primary care provider Dr. Moon on 01/15 @ 2:25 pm Follow up with your Lung specialist [facility] next week Complete course of Prednisone taper Continue using oxygen supplement at night and during the day if oxygen level drops bellow 88 Hold tramadol if you become drowsy or worsening breathing symptoms. Fall precaution Current Hospital Diet Patient's current hospital diet: AHA Diet (Heart Healthy) Discharge Diet Recommended Diet: AHA Diet (Heart Healthy) Pending Studies Studies pending at discharge: no Laboratory Results Lipid Panel Test 01/05/18 07:22 Range/Units Triglycerides Level 74 0-150 mg/dl Cholesterol Level 118 0-200 mg/dl HDL Cholesterol 59 mg/dl Cholesterol/HDL Ratio 2.0 LDL Cholesterol, Calculated 44 mg/dl Medical Emergencies . Who to Call and When: Medical Emergencies: If at any time you feel your situation is an emergency, please call 911 immediately. . Non-Emergent Contact Non-Emergency issues call your: Primary Care Provider, Packaging Associate Call Non-Emergent contact if: you have any medication questions . . "Provider Documentation" section prepared by Tosin Jaquez. .
--- NOTE | 2018-01-12 07:46 | Discharge Summary ---
Discharge Summary Date of Service Jan 12, 2018. Discharge Summary Admission Date: Jan 04, 2018 at 13:03 Discharge Date: Jan 10, 2018 Discharge Disposition: Home with services Principal Diagnosis: Acute on chronic hypoxia hypercapnia respiratory failure Secondary Diagnoses/Problems: Systolic CHF Sinus Tachycardia Elevated WBC HTN Chronic back pain Fibromyalgia: GERD Procedures: (CHEST FOR PE) ANGIO WITH CLINICAL HISTORY: 72 years-old Female presenting with ^ELEVATED D DIMER /SOB /R/O PE, respiratory failure, acute COPD. TECHNIQUE: Multidetector CT angiography of the chest was performed after administration of intravenous contrast. 3-D volumetric and/or maximum intensity projection (MIP) images were subsequently reconstructed for review. IV contrast: 77 mL of Optiray 320. A dose lowering technique was used consistent with the principles of ALARA (as low as reasonably achievable). COMPARISON: 10/22/2017. CT DOSE (mGy.cm): The estimated cumulative dose is 547.62 mGy.cm. FINDINGS: Deburring Technician topogram: Unremarkable. Pulmonary vasculature: The study is adequate for assessment of the pulmonary vascular tree. No filling defect within the pulmonary arteries to suggest embolus. Main pulmonary artery is not enlarged. No flattening of the interventricular septum. No intracardiac filling defect. No reflux of contrast into the hepatic veins. Remaining chest: On soft tissue windows, normal thyroid and thoracic inlet. No axillary, supraclavicular, hilar, or mediastinal lymphadenopathy. Atherosclerosis of the aorta. Normal heart size. Coronary artery calcification. No pericardial or pleural effusion. Upper abdomen normal. On lung windows, significant interval increase in now widespread tree-in-bud opacities involve all 5 lobes in both the dependent and nondependent regions. Bronchial wall thickening evident. Scattered debris and subsegmental airways of the lower lobes. No convincing evidence of bronchiectasis. More nodular consolidation noted dependently in the lower lobes. Minimal debris in the trachea. On bone windows, degenerative changes of the spine. Slightly exaggerated thoracic kyphosis. IMPRESSION: 1. Significant interval increase in now widespread tree-in-bud opacities involving all 5 lobes. This is most suspicious for endobronchial spread of infection (for example microbacterium tuberculosis, mycobacterium avium complex, fungal pneumonia, or PJP/PCP). Less likely this could could represent aspiration or have a neoplastic etiology if there is a known malignancy. 2. No pulmonary embolus. The report will be called/faxed according to standard departmental protocol. Electronically signed by: Russ Nieves M.D. 01/04/2018 4:33 PM Dictated Date/Time: 01/04/2018 4:25 PM Consultations: Pulmonology Medication Reconciliation New Medications: Prednisone (Prednisone) 20 Mg Tab 20 MG PO UD for 12 Days, TAB Take 40mg for 3 days, then 30mg for 3 days, then 20mg for 3 days, then 10 mg for 3 days, then stop Continued Medications: Albuterol Hfa (Ventolin Hfa) 200 Puffs/51530 Mcg Aers 2 PUFFS INH Q4H PRN for SOB/Wheezing Aspirin (Aspirin 81) 81 Mg Tab 1 TAB PO DAILY Atorvastatin (Lipitor) 40 Mg Tab 1 TAB PO HS Budesonide/Formoterol Fumarate (Symbicort 160/4.5 Inhaler) 120 Puffs/ Aero 2 PUFFS INH BID Calcium Carbonate (Tums) 500 Mg Chew 1.5 TABS PO DAILY Diclofenac Sodium (Topical) (Voltaren 1% Top Gel) 1 % Gel 1 APPLN TD BID Furosemide (Lasix) 20 Mg Tab 20 MG PO Q2D Home O2 Therapy (Oxygen) Gas 2 LITERS NA PRN for 30 Days Continue as before.May need 3-4 liters on ambulation Ipratropium-Albuterol (Duoneb) 3 Ml Nebu 1 TREATMENT INH Q4H PRN for SOB/Wheezing, INHA Losartan Potassium (Losartan Potassium) 25 Mg Tab 25 MG PO QPM for 30 Days, #30 TAB Metoprolol Succinate (Toprol Xl) 25 Mg Tab 25 MG PO DAILY, #30 TAB Omeprazole (Prilosec) 20 Mg Capcr 20 MG PO QAM Potassium Chloride (K-Tabs) 10 Meq Tab 10 MEQ PO Q2D Tiotropium [place] (Spiriva Handihaler) 30 Puff/540 Mcg Aerp 1 PUFF INH DAILY Tramadol HCl (Tramadol HCl) 50 Mg Tab 50 MG PO TID PRN for Pain Admission Information HPI (per Admitting provider): Patient is a 72-year-old female with a past medical history of COPD (2-3L O2 at night), HTN, systolic CHF, chronic sinus tachycardia and other medical problems listed below who presents with worsening shortness of breath x 3 days. Initial symptoms included a dry cough, runny nose and sore throat, but over the next few days cough became productive with green sputum and patient became short of breath at rest. At baseline, patient requires 2-3 L nasal cannula O2 at night but has been requiring up to 3L during the day over the past few days. Denies fever, chills, body aches. Follows with Amadou Chauhan PA-C in pulmonology clinic. Has been using home inhalers and nebulized areas as directed with some relief. Denies lightheadedness, headache, visual changes, chest pain, abdominal pain, nausea, vomiting, bowel or bladder changes or LE swelling. Has been taking all medications as prescribed. Physical Exam (per Admitting): General Appearance: WD/WN, no apparent distress, + pertinent finding ( Conversational, no respiratory distress) Head: normocephalic, atraumatic Eyes: normal inspection, PERRL, sclerae normal ENT: normal ENT inspection, hearing grossly normal, pharynx normal, + nasal congestion Neck: supple, no adenopathy, no JVD, trachea midline Respiratory/Chest: chest non-tender, no respiratory distress, no accessory muscle use, + decreased breath sounds, + wheezing (Diffuse wheezing throughout lung ambriz) Cardiovascular: no murmur, normal peripheral pulses, + tachycardia Abdomen/GI: non tender, soft, no organomegaly Back: normal inspection Extremities/Musculoskelatal: normal inspection, no calf tenderness, no pedal edema Neurologic/Psych: no motor/sensory deficits, alert, normal mood/affect, oriented x 3 Skin: normal color, warm/dry, no rash Hospital Course Patient is a 72-year-old female with a past medical history of COPD (2-3L O2 at night), HTN, systolic CHF, chronic sinus tachycardia and other medical problems listed below who presents with worsening shortness of breath x 3 days. Acute on chronic hypoxia hypercapnia respiratory failure Possible related to COPD exacerbation vs pneumonia vs LEIGHANN ABG with compensated respiratory acidosis (pH of 7.4, pCO2 of 57, pO2 of 89, bicarb of 35 Refused to use Bipap Continue supplement oxygen Continue respiratory treatmet On solumedrol taper On Zithromax and IV Rocephin abx. bronch was postpone yesterday due to pt was lethargy AFB pending Pulmonary on board 01/10 Clinically improves significantly Saturated well on RA Case discussed with pulmonology elayne Hodge from pulm standpoint to discharge home Continue prednisone taper advised pt to use her oxygen at night and during the day if oxygen sat drops bellow 88 Follow up with Pulmonology next week Completed course abx. HTN: Continue losartan,metoprolol Monitor BP Systolic CHF: Compensated on exam Most recent echo with improvement, EF of 58% Resume Lasix Continue losartan, metoprolol Elevated WBC Related to steroid Afebrile had been on Abx Chronic sinus tachycardia: Possible related to acute respiratory illness and neb treatment Chest/thorax CTA showed no pulmonary embolism Consider low dose Beta collin if BP elevates as well Stable Chronic back pain Fibromyalgia: Continue pain control GERD: Continue PPI DVT Ppx: SQ heparin Code status: FULL Disposition Discharge home today Follow up with PCP Dr. Moon on 01/15 @ 2:25 pm Follow up with your Lung specialist [facility] next week Total time spent on discharge = 35 minutes This includes examination of the patient, discharge planning, medication reconciliation, and communication with other providers. Discharge Instructions Discharge Instructions Date of Service Jan 10, 2018. Admission Reason for Admission: Copd, Hypoxia, Respiratory Failure,[id number] Discharge Discharge Diagnosis / Problem: Acute on chronic hypoxia hypercapnia respiratory failure, sinus tachycardia Discharge Goals Goal(s): Decrease discomfort, Improve function, Improve disease control Activity Recommendations Activity Limitations: resume your previous activity (as tolerated) Instructions / Follow-Up Instructions / Follow-Up Follow up with primary care provider Dr. Moon on 01/15 @ 2:25 pm Follow up with your Lung specialist [facility] next week Complete course of Prednisone taper Continue using oxygen supplement at night and during the day if oxygen level drops bellow 88 Hold tramadol if you become drowsy or worsening breathing symptoms. Fall precaution Current Hospital Diet Patient's current hospital diet: AHA Diet (Heart Healthy) Discharge Diet Recommended Diet: AHA Diet (Heart Healthy) Pending Studies Studies pending at discharge: no Laboratory Results Lipid Panel Test 01/05/18 07:22 Range/Units Triglycerides Level 74 0-150 mg/dl Cholesterol Level 118 0-200 mg/dl HDL Cholesterol 59 mg/dl Cholesterol/HDL Ratio 2.0 LDL Cholesterol, Calculated 44 mg/dl Medical Emergencies . Who to Call and When: Medical Emergencies: If at any time you feel your situation is an emergency, please call 911 immediately. . Non-Emergent Contact Non-Emergency issues call your: Primary Care Provider, Ciaio Lumite Injector Call Non-Emergent contact if: you have any medication questions . . "Provider Documentation" section prepared by Tosin Jaquez. . Additional Copies To Russ Moon M.D.
== END 2018-01-10 16:07 | disposition home or self-care (01) | DRG 177 ==
LOC: C.EDB 10:43 → C.2E 13:03 → ENRESERV 13:25 → C.MSN 01-09 14:36
PROVIDERS: ADMIT Hospitalist; ATTEND Internal Medicine
DX: A31.0 Pulmonary mycobacterial infection (principal); J96.22 Acute and chronic respiratory failure with hypercapnia; J96.21 Acute and chronic respiratory failure with hypoxia; J44.0 Chronic obstructive pulmonary disease with (acute) lower respiratory infection; J44.1 Chronic obstructive pulmonary disease with (acute) exacerbation; I50.22 Chronic systolic (congestive) heart failure; J18.9 Pneumonia, unspecified organism; R00.0 Tachycardia, unspecified; F40.240 Claustrophobia; D72.829 Elevated white blood cell count, unspecified; T38.0X5A Adverse effect of glucocorticoids and synthetic analogues, initial encounter; I11.0 Hypertensive heart disease with heart failure; E78.5 Hyperlipidemia, unspecified; K21.9 Gastro-esophageal reflux disease without esophagitis; M79.7 Fibromyalgia; G89.29 Other chronic pain; M54.9 Dorsalgia, unspecified; Z51.81 Encounter for therapeutic drug level monitoring; Z79.899 Other long term (current) drug therapy; Z79.82 Long term (current) use of aspirin; Z99.81 Dependence on supplemental oxygen; Z85.828 Personal history of other malignant neoplasm of skin; Z87.891 Personal history of nicotine dependence; Z88.6 Allergy status to analgesic agent; Z88.8 Allergy status to other drugs, medicaments and biological substances; Z91.048 Other nonmedicinal substance allergy status; Z80.42 Family history of malignant neoplasm of prostate; Z82.5 Family history of asthma and other chronic lower respiratory diseases

== ENCOUNTER 2018-12-22 07:29 | Inpatient (IN) ==
[2018-12-22] MEDS ORDERED: methylPREDNISolone 125 MG/2 ML VIAL IV STA (07:47)
[2018-12-22] MEDS ORDERED: ALBUT/IPRATROP 3MG/0.5MG NEB 3 ML VIAL INH STA (07:47)
[2018-12-22] MEDS ORDERED: LEVOFLOXACIN/D5W 750 MG/150 ML BAG IV STA (07:54)
[2018-12-22] MEDS ORDERED: SODIUM CHLORIDE 0.9% 1000ML 500 ML IV ONE (07:55)
--- NOTE | 2018-12-22 08:02 | Emergency Department Note ---
History of Present Illness General Chief complaint: Respiratory Problems Stated complaint: breathing diff. Time Seen by Provider: 12/22/18 07:37 History of Present Illness Maximum Pain Intensity: 8 73-year-old female, history of COPD and CHF who presents the emergency department with complaint of shortness of breath, difficulty breathing and left rib/back pain. The patient reports that she fell 1 week ago and fractured several ribs. The patient reports that she has become progressively more short of breath with productive cough over the past 3 days. The patient typically wears O2 via nasal cannula at 2.5 L/min at home. She reports that she has had to increase her oxygen to 4 L/min with persistent symptoms. The patient reports that she feels a popping sensation in the back. She has not noticed any fever or chills. She denies any overt chest pain or tightness. She denies diaphoresis, nausea, headache or abdominal pain. She rates her overall discomfort a 6 out of 10. Home Medications Home Medications Medication Instructions Recorded Confirmed Type acetaminophen [Tylenol Extra 1,000 mg PO Q6H PRN 12/14/18 12/22/18 History Strength] albuterol sulfate [Ventolin HFA] 2 puff INHALATION Q4H PRN 12/14/18 12/22/18 History aspirin 81 mg PO QAM 12/14/18 12/22/18 History atorvastatin 40 mg PO QAM 12/14/18 12/22/18 History budesonide-formoterol [Symbicort] 2 puff INHALATION BID 12/14/18 12/22/18 History calcium carbonate [Tums] 200 mg PO BID PRN 12/14/18 12/22/18 History diclofenac sodium [Voltaren] 2 g TOPICAL QID PRN 12/14/18 12/22/18 History docusate sodium [Colace] 100 mg PO BID #60 cap 12/14/18 12/22/18 Rx furosemide [Lasix] 20 mg PO Q2D 12/14/18 12/22/18 History ipratropium-albuterol 3 ml INHALATION Q4H PRN 12/14/18 12/22/18 History lidocaine [Lidoderm] 1 patch TOP DAILY #30 ea 12/14/18 12/22/18 Rx losartan 25 mg PO QAM 12/14/18 12/22/18 History metoprolol succinate [Toprol XL] 25 mg PO QAM 12/14/18 12/22/18 History oxycodone 5 mg PO Q6H PRN #14 tab 12/14/18 12/22/18 Rx sennosides [Senokot] 8.6 mg PO HS #30 tab 12/14/18 12/22/18 Rx tiotropium bromide [Spiriva with 1 cap INHALATION QAM 12/14/18 12/22/18 History HandiHaler] tramadol 50 mg PO BID 12/14/18 12/22/18 History Allergies Allergy/AdvReac Type Severity Reaction Status Date / Time naproxen AdvReac Mild GI SYMPTOMS Verified 12/22/18 08:28 Past Med/Surg History Medical History Hypertension (Chronic) COPD (chronic obstructive pulmonary disease) (Chronic) On 07/28/15 14:30 Verenice Guillen wrote "severity to be determined " Dyslipidemia (Chronic) GERD (gastroesophageal reflux disease) (Chronic) Fibromyalgia (Chronic) BCC (basal cell carcinoma of skin) (Chronic) "s/p MOHS surgery" Systolic heart failure (Chronic) Osteoporosis (Chronic) Chronic respiratory failure with hypoxia (Chronic) Sinus tachycardia (Chronic) Surgical History Status post appendectomy (Chronic) Status post hysterectomy (Chronic) Status post repair of ventral hernia (Chronic) Hx of cataract surgery (Chronic) S/P Mohs surgery for basal cell carcinoma (Chronic) Family History Other No significant family history Social History Preferred Language: Burmese Communication Ability: Effective Beliefs That Will Affect Care: None marital status: Current Living Situation: Alone current occupational status: retired Other Information That Helps Us Care for You: No Feels Safe at Home: Yes Safety Concerns: Feels Safe At This Time Smoking Status: Former smoker Hx Alcohol Use: No Hx Substance Use: No Review of Systems HEENT: Denies dizziness, visual problems, hearing loss, tinnitus. Denies difficulty swallowing or oral lesions. PULMONARY: See HPI. CARDIOVASCULAR: Denies chest pain, palpitations, no dyspnea on exertion, orthopnea or peripheral edema. GASTROINTESTINAL: Denies diarrhea, constipation, nausea, vomiting, or abdominal pain. GENITOURINARY: Denies dysuria, frequency, urgency or nocturia. NEUROLOGIC: Denies history of epilepsy, CVA, TIA or chronic headaches. MUSCULOSKELETAL: Denies history of joint tenderness/swelling. SKIN: Denies rashes or lesions. PSYCHIATRIC: Denies history of depression or mental illness. ENDOCRINE: Denies history of diabetes or thyroid disorders. Physical Exam Vital Signs Vital Signs - 24 hr 12/22/18 07:35 12/22/18 08:08 12/22/18 09:10 Temperature 37.0 C Temperature Source Oral Sepsis Action Taken by Nursing No Action Required Pulse Rate 115 H Pulse Rate [Left Brachial] Pulse Rate [Right Brachial] Pulse Rate [Right Finger] 105 H Pulse Rhythm [Left Brachial] Pulse Rhythm [Right Finger] Pulse Strength [Left Brachial] Respiratory Rate 20 18 Respiratory Effort / Characteristics Non-Labored Spontaneous Non-Labored Spontaneous Non-Labored Spontaneous Short of Breath SOB on Exertion Respiratory Depth Normal Respiratory Pattern Regular Blood Pressure [Left Arm] Blood Pressure [Right Arm] Blood Pressure Mean [Left Arm] Blood Pressure Mean [Right Arm] Blood Pressure Position [Right Arm] Pulse Oximetry 97 Oxygen Delivery Method Nasal Cannula Nasal Cannula Nasal Cannula Oxygen Flow Rate 2 4 4 12/22/18 09:32 12/22/18 10:08 12/22/18 11:11 Temperature 37.1 C Temperature Source Oral Sepsis Action Taken by Nursing Pulse Rate Pulse Rate [Left Brachial] Pulse Rate [Right Brachial] 110 H Pulse Rate [Right Finger] 110 H 110 H Pulse Rhythm [Left Brachial] Pulse Rhythm [Right Finger] Regular Pulse Strength [Left Brachial] Respiratory Rate 20 20 18 Respiratory Effort / Characteristics Non-Labored Non-Labored Respiratory Depth Normal Normal Respiratory Pattern Blood Pressure [Left Arm] 165/84 H 143/93 H Blood Pressure [Right Arm] 137/66 Blood Pressure Mean [Left Arm] 111 109 Blood Pressure Mean [Right Arm] 89 Blood Pressure Position [Right Arm] Semi-fowlers Pulse Oximetry 98 97 95 Oxygen Delivery Method Nasal Cannula Nasal Cannula Nasal Cannula Oxygen Flow Rate 2 2 2 12/22/18 11:26 12/22/18 12:00 12/22/18 14:54 Temperature 37 C Temperature Source Oral Sepsis Action Taken by Nursing Pulse Rate Pulse Rate [Left Brachial] 114 H Pulse Rate [Right Brachial] Pulse Rate [Right Finger] Pulse Rhythm [Left Brachial] Pulse Rhythm [Right Finger] Pulse Strength [Left Brachial] Respiratory Rate 20 Respiratory Effort / Characteristics Non-Labored Spontaneous SOB on Exertion Splinting (from pain) Respiratory Depth Shallow Respiratory Pattern Regular Blood Pressure [Left Arm] Blood Pressure [Right Arm] 160/85 H Blood Pressure Mean [Left Arm] Blood Pressure Mean [Right Arm] 110 Blood Pressure Position [Right Arm] Sitting Pulse Oximetry 96 97 Oxygen Delivery Method Nasal Cannula Nasal Cannula Oxygen Flow Rate 2 2 12/22/18 15:18 Temperature 37.0 C Temperature Source Oral Sepsis Action Taken by Nursing Pulse Rate Pulse Rate [Left Brachial] 110 H Pulse Rate [Right Brachial] Pulse Rate [Right Finger] Pulse Rhythm [Left Brachial] Regular Pulse Rhythm [Right Finger] Pulse Strength [Left Brachial] Normal Respiratory Rate 19 Respiratory Effort / Characteristics Non-Labored Respiratory Depth Normal Respiratory Pattern Blood Pressure [Left Arm] Blood Pressure [Right Arm] 138/70 Blood Pressure Mean [Left Arm] Blood Pressure Mean [Right Arm] 92 Blood Pressure Position [Right Arm] Sitting Pulse Oximetry 95 Oxygen Delivery Method Nasal Cannula Oxygen Flow Rate 2 CONSTITUTIONAL: Healthy and well nourished. Alert and oriented X 3. Patient appears in mild respiratory distress with productive cough. HEENT: Normocephalic, atraumatic. Pupils equal, round and reactive. Ears and nares are clear. No scleral icterus or conjunctival injection/pallor. NECK: Full active range of motion without discomfort. No obvious JVD or c arotid bruits. LYMPHATICS: No cervical chain adenopathy. RESPIRATORY: Lung sounds are distant with bilateral wheezing and crackles, also with mild rhonchi. No stridor appreciated. CARDIOVASCULAR: Regular rate and rhythm with no murmurs, rubs or gallops. GASTROINTESTINAL: Bowel sounds present in all quadrants. Abdomen is soft and nontender to palpation. MUSCULOSKELETAL: Examination shows tenderness to palpation over the left posterior rib region. She has no focal tenderness through the central thoracolumbar spine. No pretibial pitting edema. INTEGUMENTARY: No rash or other significant dermatologic conditions noted. HEMATOLOGIC: No ecchymosis or petechiae. PSYCHIATRIC: Positive affect. NEUROLOGIC: Cranial nerves II-XII grossly intact. No focal neurologic deficits noted. Course Patient history and physical exam were performed. Nurse's notes were reviewed. I also reviewed documentation from the patient's ED visit 8 days ago, showing that she had a CT of the chest and thoracic spine, showing 4 rib fractures (left fifth through eighth ribs) from her fall. No thoracic vertebral fractures were noted. Vital signs were reviewed. The patient was being administered O2 via nasal cannula at 4 L/min on my exam. She was maintaining O2 saturations in the upper 90s. Per EMS report, she was administered albuterol nebulizer treatment en route, and had a pulse ox of 80% upon arrival at the patient's residence. IV access was established, and labs were drawn. The patient was administered an hour long DuoNeb treatment. She was also hydrated with a normal saline 500 cc bolus initially, and administered IV Solu-Medrol. After ABG and blood cultures were collected, the patient was also administered Levaquin 750 mg IV infusion. An ECG shows a sinus tachycardia without evidence for ST elevation or other conduction abnormalities. A portable chest x-ray does not show any consolidations. Influenza screen was negative. The patient does have mild hyponatremia. Creatinine is normal. Troponin and BNP are normal as well. The case was further discussed with Dr. Murcia, ED attending physician, who recommended hospitalist consultation for admission. The case was then discussed with Dr. Hallman with the [facility] hospitalist service. Please see his dictation for further treatment and final disposition. Administered Medications Doxycycline Hyclate (Vibramycin) 100 mg PO BID UCHE Stop: 12/29/18 09:59 Last Admin: 12/22/18 11:16 Dose: 100 mg Documented by: [id number] Enoxaparin Sodium (Lovenox) 40 mg SQ Q24H UCHE Stop: 01/21/19 09:59 Last Admin: 12/22/18 11:16 Dose: 40 mg Documented by: [id number] Furosemide (Lasix) 20 mg PO DAILY UCHE Stop: 01/21/19 10:54 Last Admin: 12/22/18 13:41 Dose: 20 mg Documented by: [id number] Methylprednisolone 40 mg/ (Syringe) 0.64 mls @ 1.5 mls/min IV Q8H UCHE Stop: 01/21/19 15:59 Last Admin: 12/22/18 15:47 Dose: 1.5 mls/min Documented by: [id number] Metoprolol Succinate (Toprol Xl) 25 mg PO QAM UCHE Stop: 01/21/19 10:54 Last Admin: 12/22/18 13:41 Dose: 25 mg Documented by: [id number] Oxycodone HCl (Roxicodone Immediate Rel) 5 mg PO Q6H PRN PRN Reason: pain Stop: 01/05/19 10:54 Last Admin: 12/22/18 12:10 Dose: 5 mg Documented by: [id number] Tiotropium [place] (Spiriva) 1 puffs INH QAM UCHE Stop: 01/21/19 10:54 Last Admin: 12/22/18 13:42 Dose: 1 puffs Documented by: [id number] Tramadol HCl (Ultram) 50 mg PO BID UCHE Stop: 01/21/19 10:54 Last Admin: 12/22/18 12:11 Dose: 50 mg Documented by: [id number] Discontinued Medications Albuterol (Duoneb) 12 ml INH ONE STA Stop: 12/22/18 07:48 Last Admin: 12/22/18 08:08 Dose: 12 ml Documented by: [id number] Sodium Chloride (Nss 1000ml) 500 mls @ 999 mls/hr IV .Q31M ONE Stop: 12/22/18 08:25 Last Infusion: 12/22/18 09:37 Dose: 0 mls/hr Documented by: [id number] Admin: 12/22/18 08:30 Dose: 999 mls/hr Documented by: [id number] Levofloxacin/Dextrose (Levaquin/D5w) 750 mg in 150 mls @ 100 mls/hr IV NOW STA Stop: 12/22/18 09:23 Last Infusion: 12/22/18 11:45 Dose: 0 mls/hr Documented by: [id number] Admin: 12/22/18 08:30 Dose: 100 mls/hr Documented by: [id number] Methylprednisolone (Solumedrol) 125 mg IV NOW STA Stop: 12/22/18 07:48 Last Admin: 12/22/18 08:30 Dose: 125 mg Documented by: [id number] Medical Decision Making Medical Records Attestation: I reviewed the patient's medical records. Home Medications Current Medication List: was personally reviewed by me Laboratory Data Attestation: I reviewed the patient's lab results. Result diagrams: 12/22/18 08:14 12/22/18 08:14 Lab Results 0312/22/18 12/22/18 Range/Units 08:00 08:14 08:14 WBC 10.50 (4.8-10.8) K/uL RBC 4.68 (4.2-5.4) M/uL Hgb 13.8 (12.0-16.0) g/dL Hct 42.8 (37-47) % MCV 91.5 (80-100) fL MCH 29.5 (25-34) pg MCHC 32.2 (32-36) g/dL RDW Std Deviation 48.2 H (36.4-46.3) fL RDW Coeff of Reg 14.3 (11.5-14.5) % Plt Count 227 (130-400) K/uL MPV 10.7 H (7.4-10.4) fL Immature Gran % (Auto) 0.4 % Neut % (Auto) 79.6 % Lymph % (Auto) 11.7 % [place] % (Auto) 6.9 % Eos % (Auto) 1.3 % Baso % (Auto) 0.1 % Immature Gran # (Auto) 0.04 H (0.00-0.02) K/uL Neut # (Auto) 8.36 H (1.4-6.5) K/uL Lymph # (Auto) 1.23 (1.2-3.4) K/uL [place] # (Auto) 0.72 H (0.11-0.59) K/uL Eos # (Auto) 0.14 (0-0.5) K/uL Baso # (Auto) 0.01 (0-0.2) K/uL PT 11.3 (9.0-12.0) Seconds INR 1.1 (0.9-1.1) APTT 27.6 (21.0-31.0) Seconds PTT Ratio 1.0 ABG pH (7.35-7.45) ABG pCO2 (35-46) mmHg ABG pO2 (80-95) mm/Hg ABG HCO3 (19-24) mmol/L ABG O2 Saturation (90-95) % ABG Base Excess (-9-1.8) mEq/L Clarence Test (Pos) Barometric Pressure mm/Hg Oxygen Given Sodium (136-145) mmol/L Potassium (3.5-5.1) mmol/L Chloride (98-107) mmol/L Carbon Dioxide (21-32) mmol/L Anion Gap (3-11) BUN (7-18) mg/dl Creatinine (0.6-1.2) mg/dl Est Cr Clr Drug Dosing ml/min Est GFR ( Amer) Est GFR (Non-Af Amer) BUN/Creatinine Ratio (10-20) Glucose (70-99) mg/dl Lactate (0.4-2.0) mmol/L Calcium (8.5-10.1) mg/dl Magnesium (1.8-2.4) mg/dl Total Bilirubin (0.2-1) mg/dl AST (15-37) U/L ALT (12-78) U/L Alkaline Phosphatase (45-117) U/L Troponin I (0-0.045) ng/ml NT-Pro-B Natriuret Pep (0-900) pg/ml Total Protein (6.4-8.2) gm/dl Albumin (3.4-5.0) gm/dl Globulin (2.5-4.0) gm/dl Albumin/Globulin Ratio (0.9-2) Urine Color Urine Appearance (Clear) Urine pH (4.5-7.5) Ur Specific [place] (1.000-1.030) Urine Protein (Negative) Urine Glucose (UA) (Negative) Urine Ketones (Negative) Urine Blood (Negative) Urine Nitrite (Negative) Urine Bilirubin (Negative) Urine Urobilinogen (Negative) Ur Leukocyte Esterase (Negative) Influenza Type A (PCR) Neg for Influ A (Neg) Influenza Type B (PCR) Neg for Influ B (Neg) 12/22/18 12/22/18 12/22/18 Range/Units 08:14 08:14 08:36 WBC (4.8-10.8) K/uL RBC (4.2-5.4) M/uL Hgb (12.0-16.0) g/dL Hct (37-47) % MCV (80-100) fL MCH (25-34) pg MCHC (32-36) g/dL RDW Std Deviation (36.4-46.3) fL RDW Coeff of Reg (11.5-14.5) % Plt Count (130-400) K/uL MPV (7.4-10.4) fL Immature Gran % (Auto) % Neut % (Auto) % Lymph % (Auto) % [place] % (Auto) % Eos % (Auto) % Baso % (Auto) % Immature Gran # (Auto) (0.00-0.02) K/uL Neut # (Auto) (1.4-6.5) K/uL Lymph # (Auto) (1.2-3.4) K/uL [place] # (Auto) (0.11-0.59) K/uL Eos # (Auto) (0-0.5) K/uL Baso # (Auto) (0-0.2) K/uL PT (9.0-12.0) Seconds INR (0.9-1.1) APTT (21.0-31.0) Seconds PTT Ratio ABG pH 7.37 (7.35-7.45) ABG pCO2 71 H (35-46) mmHg ABG pO2 73 L (80-95) mm/Hg ABG HCO3 40 H (19-24) mmol/L ABG O2 Saturation 94.2 (90-95) % ABG Base Excess 11.8 H (-9-1.8) mEq/L Clarence Test Pos (Pos) Barometric Pressure 729.8 mm/Hg Oxygen Given 2L Sodium 133 L (136-145) mmol/L Potassium 3.8 (3.5-5.1) mmol/L Chloride 90 L (98-107) mmol/L Carbon Dioxide 40 H (21-32) mmol/L Anion Gap 3.0 (3-11) BUN 14 (7-18) mg/dl Creatinine 0.62 (0.6-1.2) mg/dl Est Cr Clr Drug Dosing 79.8 ml/min Est GFR ( Amer) 102.2 Est GFR (Non-Af Amer) 88.2 BUN/Creatinine Ratio 22.3 H (10-20) Glucose 130 H (70-99) mg/dl Lactate 1.2 (0.4-2.0) mmol/L Calcium 9.2 (8.5-10.1) mg/dl Magnesium 2.0 (1.8-2.4) mg/dl Total Bilirubin 1.1 H (0.2-1) mg/dl AST 19 (15-37) U/L ALT 20 (12-78) U/L Alkaline Phosphatase 97 (45-117) U/L Troponin I < 0.015 (0-0.045) ng/ml NT-Pro-B Natriuret Pep 275 (0-900) pg/ml Total Protein 7.4 (6.4-8.2) gm/dl Albumin 3.5 (3.4-5.0) gm/dl Globulin 3.9 (2.5-4.0) gm/dl Albumin/Globulin Ratio 0.9 (0.9-2) Urine Color Urine Appearance (Clear) Urine pH (4.5-7.5) Ur Specific [place] (1.000-1.030) Urine Protein (Negative) Urine Glucose (UA) (Negative) Urine Ketones (Negative) Urine Blood (Negative) Urine Nitrite (Negative) Urine Bilirubin (Negative) Urine Urobilinogen (Negative) Ur Leukocyte Esterase (Negative) Influenza Type A (PCR) (Neg) Influenza Type B (PCR) (Neg) 12/22/18 Range/Units 08:55 WBC (4.8-10.8) K/uL RBC (4.2-5.4) M/uL Hgb (12.0-16.0) g/dL Hct (37-47) % MCV (80-100) fL MCH (25-34) pg MCHC (32-36) g/dL RDW Std Deviation (36.4-46.3) fL RDW Coeff of Reg (11.5-14.5) % Plt Count (130-400) K/uL MPV (7.4-10.4) fL Immature Gran % (Auto) % Neut % (Auto) % Lymph % (Auto) % [place] % (Auto) % Eos % (Auto) % Baso % (Auto) % Immature Gran # (Auto) (0.00-0.02) K/uL Neut # (Auto) (1.4-6.5) K/uL Lymph # (Auto) (1.2-3.4) K/uL [place] # (Auto) (0.11-0.59) K/uL Eos # (Auto) (0-0.5) K/uL Baso # (Auto) (0-0.2) K/uL PT (9.0-12.0) Seconds INR (0.9-1.1) APTT (21.0-31.0) Seconds PTT Ratio ABG pH (7.35-7.45) ABG pCO2 (35-46) mmHg ABG pO2 (80-95) mm/Hg ABG HCO3 (19-24) mmol/L ABG O2 Saturation (90-95) % ABG Base Excess (-9-1.8) mEq/L Clarence Test (Pos) Barometric Pressure mm/Hg Oxygen Given Sodium (136-145) mmol/L Potassium (3.5-5.1) mmol/L Chloride (98-107) mmol/L Carbon Dioxide (21-32) mmol/L Anion Gap (3-11) BUN (7-18) mg/dl Creatinine (0.6-1.2) mg/dl Est Cr Clr Drug Dosing ml/min Est GFR ( Amer) Est GFR (Non-Af Amer) BUN/Creatinine Ratio (10-20) Glucose (70-99) mg/dl Lactate (0.4-2.0) mmol/L Calcium (8.5-10.1) mg/dl Magnesium (1.8-2.4) mg/dl Total Bilirubin (0.2-1) mg/dl AST (15-37) U/L ALT (12-78) U/L Alkaline Phosphatase (45-117) U/L Troponin I (0-0.045) ng/ml NT-Pro-B Natriuret Pep (0-900) pg/ml Total Protein (6.4-8.2) gm/dl Albumin (3.4-5.0) gm/dl Globulin (2.5-4.0) gm/dl Albumin/Globulin Ratio (0.9-2) Urine Color Dark Yellow Urine Appearance Clear (Clear) Urine pH 6.0 (4.5-7.5) Ur Specific [place] 1.017 (1.000-1.030) Urine Protein Negative (Negative) Urine Glucose (UA) Negative (Negative) Urine Ketones Negative (Negative) Urine Blood Negative (Negative) Urine Nitrite Negative (Negative) Urine Bilirubin Negative (Negative) Urine Urobilinogen Negative (Negative) Ur Leukocyte Esterase Negative (Negative) Influenza Type A (PCR) (Neg) Influenza Type B (PCR) (Neg) Imaging Data Attestation: I personally reviewed and interpreted this imaging study as follows: My Impression: My interpretation of a portable chest x-ray does not show any consolidations or cardiomegaly. Radiologist report was reviewed. Radiologist's Impression: XR chest 1V portable CLINICAL HISTORY: SOB, h/o CHF, COPD COMPARISON STUDY: CT 12/14/2018 FINDINGS: Slightly progressive pleural thickening left base secondary to pre-e xisting left rib fractures. Increased density right apex felt to be overlap artifact diaphragms are smooth. IMPRESSION: Chronic change. No acute process. ECG Data Attestation: I personally reviewed and interpreted this ECG as follows: Indication: SOB/dyspnea Rate (beats per minute): 116 Rhythm: sinus tachycardia Findings: + PVC Comparison ECG Date: from (01/06/18) Change: the following changes noted (T wave inversion no longer evident in inferior leads) Blood Pressure Blood Pressure Findings: Normal blood pressure MDM Narrative Patient does have a known history of COPD with chronic hypoxia, on O2 therapy at home. Because the patient recently experienced a fall with multiple rib fractures, I suspect that she has developed bronchitis. At this point, I do not suspect acute cardiac etiology, including CHF, myocardial infarction, pericarditis or myocarditis. No pneumonia or pneumothorax is noted on imaging. I do feel that the patient is at low risk for PE. Impression & Plan COPD exacerbation, COPD with hypoxia, Multiple fractures of ribs of left side Discharge Plan Visit Data *Final* Discharge Date/Time: 12/22/18 10:19 Chief Complaint: Respiratory Problems Stated Complaint: breathing diff. ED Provider: Thien Murcia ED Midlevel Provider: Piter Easton Discharge Problem: COPD exacerbation, COPD with hypoxia, Multiple fractures of ribs of left side Patient Disposition: Admitted As Inpatient Discharge Instructions Interventions: ED Discharge Assessment Last Done: 12/22/18 10:19
[2018-12-22 08:26] LABS: Basophils # (auto) 0.01 K/uL (0-0.2); Basophils % (auto) 0.1 %; Eosinophils # (auto) 0.14 K/uL (0-0.5); Eosinophils % (auto) 1.3 %; Hematocrit (blood only) 42.8 % (37-47); Hemoglobin 13.8 g/dL (12.0-16.0); Immature Granulocytes # (auto) 0.04 K/uL (0.00-0.02); Immature Granulocytes % (auto) 0.4 %; Lymphocytes # (auto) 1.23 K/uL (1.2-3.4); Lymphocytes % (auto) 11.7 %; Mean Corpuscular Hgb Conc 32.2 g/dL (32-36); Mean Corpuscular Volume 91.5 fL (80-100); Mean Platelet Volume 10.7 fL (7.4-10.4); Monocytes # (auto) 0.72 K/uL (0.11-0.59); Monocytes % (auto) 6.9 %; Neutrophils # (auto) 8.36 K/uL (1.4-6.5); Neutrophils % (auto) 79.6 %; Platelet Count 227 K/uL (130-400); RDW Coefficient of Variation 14.3 % (11.5-14.5); RDW Standard Deviation 48.2 fL (36.4-46.3); Red Blood Count 4.68 M/uL (4.2-5.4)
--- NOTE | 2018-12-22 08:26 | XRay Report ---
XR chest 1V portable CLINICAL HISTORY: SOB, h/o CHF, COPD COMPARISON STUDY: CT 12/14/2018 FINDINGS: Slightly progressive pleural thickening left base secondary to pre-existing left rib fractu res. Increased density right apex felt to be overlap artifact diaphragms are smooth. IMPRESSION: Chronic change. No acute process. The above report was generated using voice recognition software. It may contain grammatical, syntax or spelling errors. Electronically signed by: Byron Reyes M.D. 12/22/2018 8:23 AM
[2018-12-22 08:36] LABS: INR 1.1 (0.9-1.1); Partial Thromboplastin Time 27.6 Seconds (21.0-31.0); Prothrombin Time 11.3 Seconds (9.0-12.0)
[2018-12-22 08:44] LABS: Alanine Aminotransferase 20 U/L (12-78); Albumin Level 3.5 gm/dl (3.4-5.0); Aspartate Aminotransferase 19 U/L (15-37); BUN Creatinine Ratio 22.3 (10-20); Blood Urea Nitrogen 14 mg/dl (7-18); Calcium 9.2 mg/dl (8.5-10.1); Carbon Dioxide 40 mmol/L (21-32); Chloride 90 mmol/L (98-107); Creatinine Clr Calc Pharmacy 79.8 ml/min; Est GFR (African American) 102.2; Est GFR (Non-African American) 88.2; Glucose 130 mg/dl (70-99); Potassium 3.8 mmol/L (3.5-5.1); Sodium 133 mmol/L (136-145)
[2018-12-22 08:49] LABS: Albumin Globulin Ratio 0.9 (0.9-2); Alkaline Phosphatase 97 U/L (45-117); Bilirubin,Total 1.1 mg/dl (0.2-1); Globulin 3.9 gm/dl (2.5-4.0); NT Pro B Type Natriuretic Pept 275 pg/ml (0-900); Total Protein 7.4 gm/dl (6.4-8.2); Troponin I < 0.015 ng/ml (0-0.045)
[2018-12-22 08:50] LABS: Influenza A virus by PCR Neg for Influ A (Neg); Influenza B virus by PCR Neg for Influ B (Neg)
[2018-12-22 09:02] LABS: HCO3 ABG 40 mmol/L (19-24); Oxygen Saturation ABG 94.2 % (90-95); PCO2 ABG 71 mmHg (35-46); PO2 ABG 73 mm/Hg (80-95); pH ABG 7.37 (7.35-7.45)
[2018-12-22 09:08] LABS: Allen Test Pos (Pos)
[2018-12-22 09:09] LABS: Appearance Urine Clear (Clear); Bilirubin Urine Negative (Negative); Blood Urine Negative (Negative); Color Urine Dark Yellow; Glucose Urine UA Negative (Negative); Ketones Urine Negative (Negative); Leukocyte Esterase Urine Negative (Negative); Nitrite Urine Negative (Negative); Protein Urine Negative (Negative); Specific Gravity Urine 1.017 (1.000-1.030); Urobilinogen Urine Negative (Negative)
--- NOTE | 2018-12-22 10:09 | History & Physical Report ---
Date of Service December 22, 2018 Assessment & Plan (1) COPD exacerbation: Has history of COPD on home oxygen Admitted with increasing shortness of breath with cough and hemoptysis Likely has exacerbation secondary to ongoing bronchitis Received intravenous Solu-Medrol and will continue Received 1 dose of Levaquin and will change it to doxycycline Continue nebulized bronchodilator Oxygen as needed Present on Admission?: Yes (2) Fracture of rib: History of fall around first of this month Fracture of the left fifth, sixth,seventh and eighth rib We will continue oral OxyContin and tramadol for pain control Incentive spirometry Present on Admission?: Yes (3) Fibromyalgia: No acute exacerbation Present on Admission?: Yes (4) Hypertension: Blood pressure seems to be controlled Continue current medications (5) Systolic heart failure: Has been on Lasix 20 mg every other day Increasing leg swelling recently likely due to decreased mobility Will give Lasix daily while in the hospital and monitor PRP No acute CHF in CXR Hyperlipidemia Continue statin DVT prophylaxis Subcu Lovenox CODE STATUS Discussed with the patient and she will be a full code History of Present Illness Chief Complaint: Increasing shortness of breath since Sunday last Primary Care Provider: Russ Moon She is a 73-year-old female with significant past medical history of COPD on home oxygen, history of systolic heart failure, osteoporosis, hypertension and hyperlipidemia was brought into emergency room with increasing shortness of breath since Sunday last. Apparently she has had a fall around first of this month and that she came to ER worse on 14 December and at that time apparent CT scan of the chest did show she had multiple rib fracture on the left side and she was sent home on oral pain medications. Since around that time she has been complaining of more shortness of breath and decreased mobility and this morning her breathing got worse and she came to ER for further evaluation. She has been complaining of cough with productive of yellowish phlegm and occasional blood in it but denies any fever and/or chills. She also complains to have increasing swelling of the legs but denies to have any weight gain. She does have some nausea and abdominal discomfort but no vomiting. Her hip pain seems to be worse with any breathing and her coughing. She was evaluated in the emergency room and was noted to have hypoxic on room air and wheezing with decreased breath sounds on physical examination and chest x-ray did not show any evidence of CHF and no pneumonia. Given the history of COPD on home oxygen and recent decrease in mobility with multiple rib fractures she was admitted to the telemetry unit for continued treatment of COPD exacerbation most likely infective. Allergies Allergy/AdvReac Type Severity Reaction Status Date / Time naproxen AdvReac Mild GI SYMPTOMS Verified 12/22/18 08:28 Home Medications Home Medications Medication Instructions Recorded Confirmed Type acetaminophen [Tylenol Extra 1,000 mg PO Q6H PRN 12/14/18 12/22/18 History Strength] albuterol sulfate [Ventolin HFA] 2 puff INHALATION Q4H PRN 12/14/18 12/22/18 History aspirin 81 mg PO QAM 12/14/18 12/22/18 History atorvastatin 40 mg PO QAM 12/14/18 12/22/18 History budesonide-formoterol [Symbicort] 2 puff INHALATION BID 12/14/18 12/22/18 History calcium carbonate [Tums] 200 mg PO BID PRN 12/14/18 12/22/18 History diclofenac sodium [Voltaren] 2 g TOPICAL QID PRN 12/14/18 12/22/18 History docusate sodium [Colace] 100 mg PO BID #60 cap 12/14/18 12/22/18 Rx furosemide [Lasix] 20 mg PO Q2D 12/14/18 12/22/18 History ipratropium-albuterol 3 ml INHALATION Q4H PRN 12/14/18 12/22/18 History lidocaine [Lidoderm] 1 patch TOP DAILY #30 ea 12/14/18 12/22/18 Rx losartan 25 mg PO QAM 12/14/18 12/22/18 History metoprolol succinate [Toprol XL] 25 mg PO QAM 12/14/18 12/22/18 History oxycodone 5 mg PO Q6H PRN #14 tab 12/14/18 12/22/18 Rx sennosides [Senokot] 8.6 mg PO HS #30 tab 12/14/18 12/22/18 Rx tiotropium bromide [Spiriva with 1 cap INHALATION QAM 12/14/18 12/22/18 History HandiHaler] tramadol 50 mg PO BID 12/14/18 12/22/18 History Past Med/Surg History Medical History Hypertension (Chronic) COPD (chronic obstructive pulmonary disease) (Chronic) On 07/28/15 14:30 Verenice Dillarderasmo wrote "severity to be determined " Dyslipidemia (Chronic) GERD (gastroesophageal reflux disease) (Chronic) Fibromyalgia (Chronic) BCC (basal cell carcinoma of skin) (Chronic) "s/p MOHS surgery" Systolic heart failure (Chronic) Osteoporosis (Chronic) Chronic respiratory failure with hypoxia (Chronic) Sinus tachycardia (Chronic) Surgical History Status post appendectomy (Chronic) Status post hysterectomy (Chronic) Status post repair of ventral hernia (Chronic) Hx of cataract surgery (Chronic) S/P Mohs surgery for basal cell carcinoma (Chronic) Family History Other No significant family history Social History Preferred Language: Czech Communication Ability: Effective Beliefs That Will Affect Care: None marital status: Current Living Situation: Alone current occupational status: retired Other Information That Helps Us Care for You: No Feels Safe at Home: Yes Safety Concerns: Feels Safe At This Time Smoking Status: Former smoker Hx Alcohol Use: No Hx Substance Use: No Review of Systems All systems reviewed & are unremarkable except as noted in HPI & below Respiratory: + cough, + change in sputum, + dyspnea, + hemoptysis, + pain with cough and + sputum production Cardiovascular: + chest pain with activity Additional Comments: Doubt any angina Physical Exam Vital Signs (Past 24 Hours): Last Vital Signs Temp 37.0 C 12/22/18 07:35 Pulse 110 H 12/22/18 09:32 Resp 20 12/22/18 09:32 BP 165/84 H 12/22/18 09:32 Pulse Ox 98 12/22/18 09:32 Physical Exam: Moderate shortness of breath at rest Constitutional: well developed, + acute distress, + ill appearing and + obese Eyes: PERRL, conjunctivae normal, anicteric sclerae ENMT: external ear and nose normal, oropharynx normal Neck: trachea midline, no thyromegaly Respiratory: + respiratory distress, + labored breathing, + uses accessory muscles, + cough and + tachypneic Auscultation: + diminished lung sounds, + crackles (At the bases) and + wheezes (Moderate wheezing all over) Cardiovascular: Rate/Rhythm: regular rate, regular rhythm and + tachycardic Heart Sounds: normal S1 and normal S2 Gastrointestinal (Abdomen): Inspection/Auscultation: + abdomen distended and normal bowel sounds Percussion/Palpation: + abdomen tender (Mildly tender in epigastrium) and abdomen soft Musculoskeletal: No acute arthritis involving any joints Psychiatric: A+Ox3, euthymic affect Results & Data Laboratory Results Short CBC 12/22/18 Range/Units 08:14 WBC 10.50 (4.8-10.8) K/uL Hgb 13.8 (12.0-16.0) g/dL Hct 42.8 (37-47) % Plt Count 227 (130-400) K/uL BMP 12/22/18 08:14 Sodium 133 L Potassium 3.8 Chloride 90 L Carbon Dioxide 40 H BUN 14 Creatinine 0.62 Glucose 130 H Calcium 9.2 Cardiac Enzymes 12/22/18 Range/Units 08:14 Troponin I < 0.015 (0-0.045) ng/ml Liver Function 12/22/18 Range/Units 08:14 Total Bilirubin 1.1 H (0.2-1) mg/dl AST 19 (15-37) U/L ALT 20 (12-78) U/L Alkaline Phosphatase 97 (45-117) U/L Albumin 3.5 (3.4-5.0) gm/dl Urine 12/22/18 Range/Units 08:55 Urine Color Dark Yellow Urine Appearance Clear (Clear) Urine pH 6.0 (4.5-7.5) Ur Specific [place] 1.017 (1.000-1.030) Urine Protein Negative (Negative) Urine Glucose (UA) Negative (Negative) Medications Administered Current Inpatient Medications Doxycycline Hyclate (Vibramycin) 100 mg PO BID [facility] Stop: 12/29/18 09:59 Enoxaparin Sodium (Lovenox) 40 mg SQ Q24H [facility] Stop: 01/21/19 09:59 Methylprednisolone 40 mg/ (Syringe) 0.64 mls @ 1.5 mls/min IV Q8H [facility] Stop: 01/21/19 09:59 (1) Fracture of rib Encounter type: initial encounter Fracture type: closed Laterality: left Rib fracture type: multiple ribs Qualified Code(s): S22.42XA - Multiple fractures of ribs, left side, initial encounter for closed fracture (2) Hypertension Hypertension type: unspecified Qualified Code(s): I10 - Essential (primary) hypertension
[2018-12-22] MEDS ORDERED: DOXYCYCLINE HYCLATE 100 MG CAP PO SCH (10:15)
[2018-12-22] MEDS ORDERED: ALBUT/IPRATROP 3MG/0.5MG NEB 3 ML VIAL INH PRN (10:55)
[2018-12-22] MEDS ORDERED: DICLOFENAC SOD 1% GEL 100 GM TUBE EXT PRN (10:55)
[2018-12-22] MEDS ORDERED: ALBUTEROL HFA 8 GM INHALER INH PRN (10:55)
[2018-12-22] MEDS ORDERED: CALCIUM CARBONATE 500 MG CHEWABLE TAB PO PRN (10:55)
[2018-12-22] MEDS ORDERED: ACETAMINOPHEN 500 MG TAB PO PRN (10:55)
--- NOTE | 2018-12-22 11:01 | Emergency Department Note ---
Entered by Kelsi Low acting as a scribe for Thien Murcia MD ED Visit Note The patient was seen and examined by myself in conjunction with Piter Easton PA-C. I agree with the history, physical and findings as documented. Please see the note for disposition and details. The scribe's documentation has been prepared under my direction and personally reviewed by me in its entirety. I confirm that the note above accurately reflects all work, treatment, procedures, and medical decision making performed by me.
[2018-12-22] MEDS: ENOXAPARIN INJ 40 MG/0.4 ML SYR SQ SCH (11:16)
[2018-12-22] MEDS: DOXYCYCLINE HYCLATE 100 MG CAP PO SCH ×2 (11:16→20:09)
[2018-12-22] MEDS: OXYCODONE HCL IR 5 MG TAB (IMMEDIATE RELEASE) PO PRN ×2 (12:10→22:32)
[2018-12-22] MEDS: TRAMADOL HCL 50 MG TABLET PO SCH ×2 (12:11→20:13)
[2018-12-22] MEDS: METOPROLOL SUCC 25MG EXT REL TAB PO SCH (13:41)
[2018-12-22] MEDS: FUROSEMIDE 20 MG TAB PO SCH (13:41)
[2018-12-22] MEDS: TIOTROPIUM BROMIDE 5 PUFF/90 MCG INH INH SCH (13:42)
[2018-12-22] MEDS: methylPREDNISolone 40 MG in SYRINGE 0 ML IV SCH ×2 (15:47→23:28)
[2018-12-22] MEDS: DOCUSATE SODIUM 100 MG CAP PO SCH (20:07)
[2018-12-22] MEDS: BUDESONIDE/FORMOTEROL FUMARATE 160/4.5 60 PUFFS/INHALER INH SCH (20:08)
[2018-12-23] MEDS ORDERED: ONDANSETRON INJ 2 MG/ML 2 ML VIAL IV PRN (06:19)
[2018-12-23] MEDS ORDERED: ONDANSETRON INJ 2 MG/ML 2 ML VIAL ONE (06:26)
[2018-12-23] MEDS: OXYCODONE HCL IR 5 MG TAB (IMMEDIATE RELEASE) PO PRN (06:28)
[2018-12-23] MEDS: TRAMADOL HCL 50 MG TABLET PO SCH ×4 (07:56→20:32)
[2018-12-23] MEDS: ASPIRIN 81 MG ECTAB PO SCH (07:57)
[2018-12-23] MEDS: FUROSEMIDE 20 MG TAB PO SCH (07:57)
[2018-12-23] MEDS: LOSARTAN POTASSIUM 25 MG TAB PO SCH (07:57)
[2018-12-23] MEDS: DOXYCYCLINE HYCLATE 100 MG CAP PO SCH ×2 (07:57→20:33)
[2018-12-23] MEDS: methylPREDNISolone 40 MG in SYRINGE 0 ML IV SCH ×3 (07:58→23:40)
[2018-12-23] MEDS: ATORVASTATIN 40 MG TAB PO SCH (07:58)
[2018-12-23] MEDS: DOCUSATE SODIUM 100 MG CAP PO SCH ×2 (07:58→20:32)
[2018-12-23] MEDS: TIOTROPIUM BROMIDE 5 PUFF/90 MCG INH INH SCH (07:58)
[2018-12-23] MEDS: METOPROLOL SUCC 25MG EXT REL TAB PO SCH (07:58)
[2018-12-23] MEDS: LIDOCAINE 5% 1 PATCH TD SCH (07:59)
[2018-12-23] MEDS: BUDESONIDE/FORMOTEROL FUMARATE 160/4.5 60 PUFFS/INHALER INH SCH ×2 (08:00→20:25)
[2018-12-23] MEDS: ENOXAPARIN INJ 40 MG/0.4 ML SYR SQ SCH (10:20)
--- NOTE | 2018-12-23 13:33 | Hospitalist Progress Note ---
Date of Service December 23, 2018 Assessment & Plan (1) COPD exacerbation: Has history of COPD on home oxygen Admitted with increasing shortness of breath with cough and hemoptysis Likely has exacerbation secondary to ongoing bronchitis Received intravenous Solu-Medrol and will continue Received on dose of Levaquin and will change it to doxycycline Continue nebulized bronchodilator Oxygen as needed Clinically improved Physical therapy requested Mucomyst prescribed and advised to have increased embolus (2) Fracture of rib: History of fall around first of this month Fracture of the left fifth, sixth,seventh and eighth rib We will continue oral OxyContin and tramadol for pain control Incentive spirometry Pain is not well controlled Tramadol has been increased to 4 times a day (3) Fibromyalgia: No acute exacerbation (4) Hypertension: Blood pressure seems to be controlled Continue current medications (5) Systolic heart failure: Has been on Lasix 20 mg every other day Increasing leg swelling recently likely due to decreased mobility Will give Lasix daily while in the hospital and monitor PRP No acute CHF in CXR Hyperlipidemia Continue statin DVT prophylaxis Subcu Lovenox CODE STATUS Discussed with the patient and she will be a full code Like to be discharged tomorrow Subjective 12/23 Patient was seen and examined in the telemetry unit History complaints of cough and chest pain Her breathing remains reasonably stable She is not ready to be discharged Respiratory: + cough, + change in sputum, + dyspnea, + hemoptysis, + pain with cough and + sputum production Cardiovascular: + chest pain with activity Physical Exam Vital Signs (Past 24 Hours): Last Vital Signs Temp 36.9 C 12/23/18 11:45 Pulse 106 H 12/23/18 11:45 Resp 16 12/23/18 11:45 BP 144/77 H 12/23/18 11:45 Pulse Ox 90 12/23/18 11:45 Physical Exam: No apparent distress at rest Constitutional: well developed, + acute distress, + ill appearing and + obese Eyes: PERRL, conjunctivae normal, anicteric sclerae ENMT: external ear and nose normal, oropharynx normal Neck: trachea midline, no thyromegaly Respiratory: + respiratory distress, + labored breathing, + uses accessory muscles, + cough and + tachypneic Auscultation: + diminished lung sounds, + crackles (At the bases) and + wheezes (Moderate wheezing all over) Cardiovascular: Rate/Rhythm: regular rate, regular rhythm and + tachycardic Heart Sounds: normal S1 and normal S2 Gastrointestinal (Abdomen): Inspection/Auscultation: + abdomen distended and normal bowel sounds Percussion/Palpation: + abdomen tender (Mildly tender in epigastrium) and abdomen soft Psychiatric: A+Ox3, euthymic affect Results & Data Medications Administered Current Inpatient Medications Acetaminophen (Tylenol) 1,000 mg PO Q6H PRN PRN Reason: Pain Stop: 01/21/19 10:54 Albuterol (Duoneb) 3 ml INH Q4H PRN PRN Reason: Shortness Of Breath Or Wheezin Stop: 01/21/19 10:54 Albuterol (Ventolin Hfa) 2 puffs INH Q4H PRN PRN Reason: Shortness Of Breath Or Wheezin Stop: 01/21/19 10:54 Aspirin (Ecotrin Ectab) 81 mg PO QAM [facility] Stop: 01/22/19 08:59 Last Admin: 12/23/18 07:57 Dose: 81 mg Documented by: Atorvastatin Calcium (Lipitor) 40 mg PO QAM [facility] Stop: 01/22/19 08:59 Last Admin: 12/23/18 07:58 Dose: 40 mg Documented by: Budesonide/Formoterol Fumarate (Symbicort 160mcg/4.5mcg) 2 puffs INH BID [facility] Stop: 01/21/19 20:59 Last Admin: 12/23/18 08:00 Dose: 2 puffs Documented by: Calcium Carbonate (Tums) 250 mg PO BID PRN PRN Reason: Indigestion Stop: 01/21/19 10:54 Diclofenac Sodium (Voltaren 1% Top) 2 appln EXT QID PRN PRN Reason: Pain Stop: 01/21/19 10:54 Docusate Sodium (Colace) 100 mg PO BID [facility] Stop: 01/21/19 20:59 Last Admin: 12/23/18 07:58 Dose: 100 mg Documented by: Doxycycline Hyclate (Vibramycin) 100 mg PO BID [facility] Stop: 12/29/18 09:59 Last Admin: 12/23/18 07:57 Dose: 100 mg Documented by: Enoxaparin Sodium (Lovenox) 40 mg SQ Q24H [facility] Stop: 01/21/19 09:59 Last Admin: 12/23/18 10:20 Dose: 40 mg Documented by: Furosemide (Lasix) 20 mg PO DAILY [facility] Stop: 01/21/19 10:54 Last Admin: 12/23/18 07:57 Dose: 20 mg Documented by: Guaifenesin (Mucinex) 600 mg PO Q12 [facility] Stop: 01/22/19 20:59 Methylprednisolone 40 mg/ (Syringe) 0.64 mls @ 1.5 mls/min IV Q8H [facility] Stop: 01/21/19 15:59 Last Admin: 12/23/18 07:58 Dose: 1.5 mls/min Documented by: Lidocaine (Lidoderm 5%) 1 patch TD DAILY [facility] Stop: 01/22/19 08:59 Last Admin: 12/23/18 07:59 Dose: 1 patch Documented by: Losartan Potassium (Cozaar) 25 mg PO QAM [facility] Stop: 01/22/19 08:59 Last Admin: 12/23/18 07:57 Dose: 25 mg Documented by: Metoprolol Succinate (Toprol Xl) 25 mg PO QAM [facility] Stop: 01/21/19 10:54 Last Admin: 12/23/18 07:58 Dose: 25 mg Documented by: Miscellaneous (Remove Lidoderm Patch) 1 ea N/A DAILY@2100 [facility] Stop: 01/21/19 20:59 Last Admin: 12/22/18 20:07 Dose: Not Given Documented by: Ondansetron HCl (Zofran) 4 mg IV Q6H PRN PRN Reason: Nausea Stop: 01/22/19 06:18 Oxycodone HCl (Roxicodone Immediate Rel) 5 mg PO Q6H PRN PRN Reason: pain Stop: 01/05/19 10:54 Last Admin: 12/23/18 06:28 Dose: 5 mg Documented by: Tiotropium [place] (Spiriva) 1 puffs INH QAM [facility] Stop: 01/21/19 10:54 Last Admin: 12/23/18 07:58 Dose: 1 puffs Documented by: Tramadol HCl (Ultram) 50 mg PO QID [facility] Stop: 01/22/19 12:59 Last Admin: 12/23/18 12:30 Dose: 50 mg Documented by: (1) Fracture of rib Encounter type: initial encounter Fracture type: closed Laterality: left Rib fracture type: multiple ribs Qualified Code(s): S22.42XA - Multiple fractures of ribs, left side, initial encounter for closed fracture (2) Hypertension Hypertension type: unspecified Qualified Code(s): I10 - Essential (primary) hypertension
[2018-12-23] MEDS: guaiFENesin 600 MG TABCR PO SCH (20:32)
[2018-12-24] MEDS: ASPIRIN 81 MG ECTAB PO SCH (08:55)
[2018-12-24] MEDS: methylPREDNISolone 40 MG in SYRINGE 0 ML IV SCH ×3 (08:55→16:15)
[2018-12-24] MEDS: LOSARTAN POTASSIUM 25 MG TAB PO SCH (08:55)
[2018-12-24] MEDS: DOCUSATE SODIUM 100 MG CAP PO SCH (08:55)
[2018-12-24] MEDS: LIDOCAINE 5% 1 PATCH TD SCH (08:56)
[2018-12-24] MEDS: guaiFENesin 600 MG TABCR PO SCH (08:57)
[2018-12-24] MEDS: TIOTROPIUM BROMIDE 5 PUFF/90 MCG INH INH SCH (08:57)
[2018-12-24] MEDS: ATORVASTATIN 40 MG TAB PO SCH (08:57)
[2018-12-24] MEDS: BUDESONIDE/FORMOTEROL FUMARATE 160/4.5 60 PUFFS/INHALER INH SCH (08:57)
[2018-12-24] MEDS: DOXYCYCLINE HYCLATE 100 MG CAP PO SCH (08:58)
[2018-12-24] MEDS: METOPROLOL SUCC 25MG EXT REL TAB PO SCH (08:58)
[2018-12-24] MEDS: TRAMADOL HCL 50 MG TABLET PO SCH ×2 (08:58→13:27)
[2018-12-24] MEDS: ENOXAPARIN INJ 40 MG/0.4 ML SYR SQ SCH (08:58)
[2018-12-24] MEDS: FUROSEMIDE 20 MG TAB PO SCH (09:57)
--- NOTE | 2018-12-24 12:46 | Hospitalist Progress Note ---
Date of Service December 24, 2018 Assessment & Plan (1) COPD exacerbation: Has history of COPD on home oxygen Admitted with increasing shortness of breath with cough and hemoptysis Likely has exacerbation secondary to ongoing bronchitis Received intravenous Solu-Medrol and will continue Received on dose of Levaquin and will change it to doxycycline Continue nebulized bronchodilator Oxygen as needed Clinically improved Physical therapy requested Mucomyst prescribed and advised to have increased embolus Clinically a lot better and has been ambulating without any difficulty Willing to go home today Continue home oxygen as before (2) Fracture of rib: History of fall around first of this month Fracture of the left fifth, sixth,seventh and eighth rib We will continue oral OxyContin and tramadol for pain control Incentive spirometry Pain is not well controlled Tramadol has been increased to 4 times a day Pain is reasonably controlled (3) Fibromyalgia: No acute exacerbation (4) Hypertension: Blood pressure seems to be controlled Continue current medications (5) Systolic heart failure: Has been on Lasix 20 mg every other day Increasing leg swelling recently likely due to decreased mobility Will give Lasix daily while in the hospital and monitor PRP No acute CHF in CXR Denies any symptoms of fluid overload Hyperlipidemia Continue statin DVT prophylaxis Subcu Lovenox CODE STATUS Discussed with the patient and she will be a full code Will discharge today Subjective 12/23 Patient was seen and examined in the telemetry unit History complaints of cough and chest pain Her breathing remains reasonably stable She is not ready to be discharged 12/24 The patient was seen and examined in medical floor She has been feeling a lot better and ready to be discharged Her cough is improved and shortness of breath is much better He denies any other symptoms Respiratory: + cough, + change in sputum, + dyspnea, + hemoptysis, + pain with cough and + sputum production Cardiovascular: + chest pain with activity Physical Exam Vital Signs (Past 24 Hours): Last Vital Signs Temp 36.6 C 12/24/18 07:59 Pulse 81 12/24/18 07:59 Resp 18 12/24/18 07:59 BP 123/67 12/24/18 07:59 Pulse Ox 94 12/24/18 07:59 Physical Exam: Sitting on a chair without any acute distress Constitutional: well developed, + acute distress, + ill appearing and + obese Eyes: PERRL, conjunctivae normal, anicteric sclerae ENMT: external ear and nose normal, oropharynx normal Neck: trachea midline, no thyromegaly Respiratory: + cough Auscultation: + diminished lung sounds and + wheezes (Minimal wheezing and no crackles); no crackles Cardiovascular: Rate/Rhythm: regular rate, regular rhythm and + tachycardic Heart Sounds: normal S1 and normal S2 Gastrointestinal (Abdomen): Inspection/Auscultation: + abdomen distended and normal bowel sounds Percussion/Palpation: + abdomen tender (Mildly tender in epigastrium) and abdomen soft Neurologic: Generally weak otherwise no focal neuro deficit Psychiatric: A+Ox3, euthymic affect Results & Data Medications Administered Current Inpatient Medications Acetaminophen (Tylenol) 1,000 mg PO Q6H PRN PRN Reason: Pain Stop: 01/21/19 10:54 Albuterol (Duoneb) 3 ml INH Q4H PRN PRN Reason: Shortness Of Breath Or Wheezin Stop: 01/21/19 10:54 Albuterol (Ventolin Hfa) 2 puffs INH Q4H PRN PRN Reason: Shortness Of Breath Or Wheezin Stop: 01/21/19 10:54 Aspirin (Ecotrin Ectab) 81 mg PO QAM [facility] Stop: 01/22/19 08:59 Last Admin: 12/24/18 08:55 Dose: 81 mg Documented by: Atorvastatin Calcium (Lipitor) 40 mg PO QAM [facility] Stop: 01/22/19 08:59 Last Admin: 12/24/18 08:57 Dose: 40 mg Documented by: Budesonide/Formoterol Fumarate (Symbicort 160mcg/4.5mcg) 2 puffs INH BID [facility] Stop: 01/21/19 20:59 Last Admin: 12/24/18 08:57 Dose: 2 puffs Documented by: Calcium Carbonate (Tums) 250 mg PO BID PRN PRN Reason: Indigestion Stop: 01/21/19 10:54 Diclofenac Sodium (Voltaren 1% Top) 2 appln EXT QID PRN PRN Reason: Pain Stop: 01/21/19 10:54 Docusate Sodium (Colace) 100 mg PO BID [facility] Stop: 01/21/19 20:59 Last Admin: 12/24/18 08:55 Dose: 100 mg Documented by: Doxycycline Hyclate (Vibramycin) 100 mg PO BID [facility] Stop: 12/29/18 09:59 Last Admin: 12/24/18 08:58 Dose: 100 mg Documented by: Enoxaparin Sodium (Lovenox) 40 mg SQ Q24H [facility] Stop: 01/21/19 09:59 Last Admin: 12/24/18 08:58 Dose: 40 mg Documented by: Furosemide (Lasix) 20 mg PO DAILY [facility] Stop: 01/21/19 10:54 Last Admin: 12/24/18 09:57 Dose: 20 mg Documented by: Guaifenesin (Mucinex) 600 mg PO Q12 [facility] Stop: 01/22/19 20:59 Last Admin: 12/24/18 08:57 Dose: 600 mg Documented by: Methylprednisolone 40 mg/ (Syringe) 0.64 mls @ 1.5 mls/min IV Q8H [facility] Stop: 01/21/19 15:59 Last Admin: 12/24/18 09:57 Dose: 1.5 mls/min Documented by: Lidocaine (Lidoderm 5%) 1 patch TD DAILY [facility] Stop: 01/22/19 08:59 Last Admin: 12/24/18 08:56 Dose: 1 patch Documented by: Losartan Potassium (Cozaar) 25 mg PO QAM [facility] Stop: 01/22/19 08:59 Last Admin: 12/24/18 08:55 Dose: 25 mg Documented by: Metoprolol Succinate (Toprol Xl) 25 mg PO QAM [facility] Stop: 01/21/19 10:54 Last Admin: 12/24/18 08:58 Dose: 25 mg Documented by: Miscellaneous (Remove Lidoderm Patch) 1 ea N/A DAILY@2100 [facility] Stop: 01/21/19 20:59 Last Admin: 12/23/18 20:25 Dose: 1 ea Documented by: Ondansetron HCl (Zofran) 4 mg IV Q6H PRN PRN Reason: Nausea Stop: 01/22/19 06:18 Oxycodone HCl (Roxicodone Immediate Rel) 5 mg PO Q6H PRN PRN Reason: pain Stop: 01/05/19 10:54 Last Admin: 12/23/18 06:28 Dose: 5 mg Documented by: Tiotropium [place] (Spiriva) 1 puffs INH QAM [facility] Stop: 01/21/19 10:54 Last Admin: 12/24/18 08:57 Dose: 1 puffs Documented by: Tramadol HCl (Ultram) 50 mg PO QID [facility] Stop: 01/22/19 12:59 Last Admin: 12/24/18 08:58 Dose: 50 mg Documented by: (1) Fracture of rib Encounter type: initial encounter Fracture type: closed Laterality: left Rib fracture type: multiple ribs Qualified Code(s): S22.42XA - Multiple fractures of ribs, left side, initial encounter for closed fracture (2) Hypertension Hypertension type: unspecified Qualified Code(s): I10 - Essential (primary) hypertension
--- NOTE | 2018-12-25 09:08 | Discharge Summary ---
Date of Service December 25, 2018 Admission HPI Per Admitting Provider She is a 73-year-old female with significant past medical history of COPD on home oxygen, history of systolic heart failure, osteoporosis, hypertension and hyperlipidemia was brought into emergency room with increasing shortness of breath since Sunday last. Apparently she has had a fall around first of this month and that she came to ER worse on 14 December and at that time apparent CT scan of the chest did show she had multiple rib fracture on the left side and she was sent home on oral pain medications. Since around that time she has been complaining of more shortness of breath and decreased mobility and this morning her breathing got worse and she came to ER for further evaluation. She has been complaining of cough with productive of yellowish phlegm and occasional blood in it but denies any fever and/or chills. She also complains to have increasing swelling of the legs but denies to have any weight gain. She does have some nausea and abdominal discomfort but no vomiting. Her hip pain seems to be worse with any breathing and her coughing. She was evaluated in the emergency room and was noted to have hypoxic on room air and wheezing with decreased breath sounds on physical examination and chest x-ray did not show any evidence of CHF and no pneumonia. Given the history of COPD on home oxygen and recent decrease in mobility with multiple rib fractures she was admitted to the telemetry unit for continued treatment of COPD exacerbation most likely infective. Principal Diagnosis COPD exacerbation Discharge Exam Constitutional well developed, + acute distress, + ill appearing and + obese Eyes PERRL, conjunctivae normal, anicteric sclerae ENMT external ear and nose normal, oropharynx normal Neck trachea midline, no thyromegaly Respiratory + cough Auscultation: + diminished lung sounds and + wheezes (Minimal wheezing and no crackles); no crackles Cardiovascular Rate/Rhythm: regular rate, regular rhythm and + tachycardic Heart Sounds: normal S1 and normal S2 Gastrointestinal (Abdomen) Inspection/Auscultation: + abdomen distended and normal bowel sounds Percussion/Palpation: + abdomen tender (Mildly tender in epigastrium) and abdomen soft Psychiatric A+Ox3, euthymic affect Discharge Data Allergies Allergy/AdvReac Type Severity Reaction Status Date / Time naproxen AdvReac Mild GI SYMPTOMS Verified 12/22/18 08:28 Hospital Course (1) COPD exacerbation: Has history of COPD on home oxygen Admitted with increasing shortness of breath with cough and hemoptysis Likely has exacerbation secondary to ongoing bronchitis Received intravenous Solu-Medrol and will continue Received on dose of Levaquin and will change it to doxycycline Continue nebulized bronchodilator Oxygen as needed Clinically improved Physical therapy requested Mucomyst prescribed and advised to have increased embolus Clinically a lot better and has been ambulating without any difficulty Willing to go home today Continue home oxygen as before (2) Fracture of rib: History of fall around first of this month Fracture of the left fifth, sixth,seventh and eighth rib We will continue oral OxyContin and tramadol for pain control Incentive spirometry Pain is not well controlled Tramadol has been increased to 4 times a day Pain is reasonably controlled (3) Fibromyalgia: No acute exacerbation (4) Hypertension: Blood pressure seems to be controlled Continue current medications (5) Systolic heart failure: Has been on Lasix 20 mg every other day Increasing leg swelling recently likely due to decreased mobility Will give Lasix daily while in the hospital and monitor PRP No acute CHF in CXR Denies any symptoms of fluid overload Hyperlipidemia Continue statin DVT prophylaxis Subcu Lovenox CODE STATUS Discussed with the patient and she will be a full code Will discharge today Total Time Total Time Spent Total Time Spent (In Minutes): 35 minutes Total Time Includes: Examination of the Patient, Discharge Planning, Medication Reconciliation and Communication With Other Providers Discharge Plan Discharge Items Patient Disposition: Home - Self-Care Reason For Visit: COPD EXACERBATION Discharge Diagnosis: COPD exacerbation Condition: Good Discharge Goals: Decrease discomfort, Improve function and Increase independence Activity: Resume your previous activity Non-emergency contact: Primary Care Provider Call non-emergency contact if: you have any medication questions and your symptoms worsen Follow-up/Referrals: Russ Moon [Primary Care Provider] - 12/30/18 9:45 am (Please keep appointment with Holden Chauhan in pulmonary clinic) Diet: Regular Addtl Provider Instructions: Please take precaution to avoid falls Prescriptions: New doxycycline hyclate 100 mg Capsule 100 mg PO BID 5 Days Qty: 10 RF: 0 guaifenesin [Mucinex] 600 mg Tablet Extended Release 12hr 600 mg PO Q12 5 Days Qty: 10 RF: 0 prednisone 10 mg tablet 10 mg PO UD Qty: 30 RF: 0 Continued atorvastatin 40 mg Tablet 40 mg PO QAM RF: 0 ipratropium-albuterol 0.5 mg-3 mg(2.5 mg base)/3 mL Solution For Nebulization 3 ml INHALATION Q4H PRN (Reason: Shortness Of Breath Or Wheezing) RF: 0 aspirin 81 mg Tablet,Delayed Release (Dr/Ec) 81 mg PO QAM RF: 0 acetaminophen [Tylenol Extra Strength] 500 mg Tablet 1,000 mg PO Q6H PRN (Reason: Pain) RF: 0 calcium carbonate [Tums] 200 mg calcium (500 mg) Tablet,Chewable 200 mg PO BID PRN (Reason: Indigestion) RF: 0 losartan 25 mg Tablet 25 mg PO QAM RF: 0 furosemide [Lasix] 20 mg Tablet 20 mg PO Q2D RF: 0 metoprolol succinate [Toprol XL] 25 mg Tablet Extended Release 24 Hr 25 mg PO QAM RF: 0 albuterol sulfate [Ventolin HFA] 90 mcg/actuation Hfa Aerosol Inhaler 2 puff INHALATION Q4H PRN (Reason: Shortness Of Breath Or Wheezing) RF: 0 Spiriva with HandiHaler 18 mcg Capsule, W/Inhalation Device 1 cap INHALATION QAM RF: 0 Symbicort 160-4.5 mcg/actuation Hfa Aerosol Inhaler 2 puff INHALATION BID RF: 0 diclofenac sodium [Voltaren] 1 % Gel 2 g TOPICAL QID PRN (Reason: Pain) RF: 0 oxycodone 5 mg tablet 5 mg PO Q6H PRN (Reason: pain) Qty: 14 RF: 0 sennosides [Senokot] 8.6 mg tablet 8.6 mg PO HS Qty: 30 RF: 0 docusate sodium [Colace] 100 mg capsule 100 mg PO BID Qty: 60 RF: 0 lidocaine [Lidoderm] 5 % adhesive patch,medicated 1 patch TOP DAILY Qty: 30 RF: 0 Changed tramadol 50 mg Tablet 50 mg PO QID Qty: 0 RF: 0 Stand-Alone Forms: [facility] Discharge Orders: Discharge Order (Routine); Ordered 12/24/18 Ordered By: Max Hallman Admission Data Admit Date/Time: 12/22/18 09:47 Attending Provider: Max Hallman Admit Provider: Max Hallman Primary Care Provider: Russ Moon Service: Medical Other Interventions: Discharge Summary Assessment (RN) Last Done: 12/24/18 13:16 DC Date/Time DO NOT enter until pt leaves facility: 12/24/18 16:58
== END 2018-12-24 16:58 | disposition home health service (06) | DRG 191 ==
LOC: ED 07:29 → 2S 09:47 → 4E 12-23 11:42

== ENCOUNTER 2019-02-13 10:17 | Inpatient (IN) ==
[2019-02-13] MEDS ORDERED: ALBUT/IPRATROP 3MG/0.5MG NEB 3 ML VIAL NEB STA (10:54)
--- NOTE | 2019-02-13 11:21 | XRay Report ---
XR chest 1V portable CLINICAL HISTORY: Dyspnea dyspnea COMPARISON STUDY: 12/22/2018 FINDINGS: Patchy parenchymal infiltrate left base. Lungs otherwise appear clear. Diaphragms are aileen h. IMPRESSION: Patchy parenchymal infiltrate left base. The above report was generated using voice recognition software. It may contain grammatical, syntax or spelling errors. Electronically signed by: Byron Reyes M.D. 02/13/2019 11:20 AM
[2019-02-13 11:45] LABS: Base Excess VBG 19.3 mEq/L; HCO3 VBG 51 mmol/L; Oxygen Saturation VBG < 60.0 %; PCO2 VBG 103 mmHg (38-50); PO2 VBG 28 mmHg; pH VBG 7.31 (7.36-7.41)
[2019-02-13] MEDS ORDERED: cefTRIAXone SODIUM 1,000 MG/50 ML BAG IV STA (12:01)
[2019-02-13] MEDS ORDERED: AZITHROMYCIN 500 MG in DEXTROSE 5% 250 ML IV STA (12:01)
[2019-02-13] MEDS ORDERED: ALBUT/IPRATROP 3MG/0.5MG NEB 3 ML VIAL NEB ONE (12:01)
[2019-02-13 12:19] LABS: Basophils # (auto) 0.01 K/uL (0-0.2); Basophils % (auto) 0.1 %; Eosinophils # (auto) 0.12 K/uL (0-0.5); Eosinophils % (auto) 1.8 %; Hematocrit (blood only) 39.1 % (37-47); Hemoglobin 12.1 g/dL (12.0-16.0); Lymphocytes # (auto) 0.56 K/uL (1.2-3.4); Lymphocytes % (auto) 8.2 %; Mean Corpuscular Hgb Conc 30.9 g/dL (32-36); Mean Corpuscular Volume 95.4 fL (80-100); Mean Platelet Volume 10.7 fL (7.4-10.4); Monocytes # (auto) 0.25 K/uL (0.11-0.59); Monocytes % (auto) 3.7 %; Neutrophils # (auto) 5.85 K/uL (1.4-6.5); Neutrophils % (auto) 86.2 %; Platelet Count 208 K/uL (130-400); RDW Coefficient of Variation 15.3 % (11.5-14.5); RDW Standard Deviation 53.1 fL (36.4-46.3); White Blood Count 6.79 K/uL (4.8-10.8)
[2019-02-13 12:35] LABS: INR 1.1 (0.9-1.1); Partial Thromboplastin Ratio 1.1; Partial Thromboplastin Time 28.8 Seconds (21.0-31.0); Prothrombin Time 11.2 Seconds (9.0-12.0)
--- NOTE | 2019-02-13 12:40 | CT Scan Report ---
CT head/brain wo con CT DOSE: 1074.96 mGy.cm HISTORY: Mental status change confusion TECHNIQUE: Multiaxial CT images of the head were performed without the use of intravenous contrast. A dose lowering technique was utilized adhering to the principles of ALARA. Comparison: 08/06/2013 Findings: The paranasal sinuses and mastoid air cells are clear. The calvarium and skull base are int act. The ventricles and sulci are within normal limits. There is no mass, hematoma, midline shift, or acute infarct. Findings of chronic small vessel change throughout both cerebral hemispheres. This is unchanged from the prior study. Impression: No acute intracranial abnormality. Chronic and age-related change. The above report was generated using voice recognition software. It may contain grammatical, syntax or spelling errors. Electronically signed by: Byron Reyes M.D. 02/13/2019 12:39 PM
[2019-02-13 12:52] LABS: Alanine Aminotransferase 17 U/L (12-78); Albumin Globulin Ratio 0.9 (0.9-2); Albumin Level 3.5 gm/dl (3.4-5.0); Alkaline Phosphatase 131 U/L (45-117); Aspartate Aminotransferase 13 U/L (15-37); BUN Creatinine Ratio 18.6 (10-20); Bilirubin,Total 0.8 mg/dl (0.2-1); Blood Urea Nitrogen 10 mg/dl (7-18); Calcium 9.4 mg/dl (8.5-10.1); Carbon Dioxide 46 mmol/L (21-32); Chloride 90 mmol/L (98-107); Est GFR (African American) 105.7; Est GFR (Non-African American) 91.2; Glucose 118 mg/dl (70-99); Potassium 3.9 mmol/L (3.5-5.1); Sodium 138 mmol/L (136-145); Total Protein 7.5 gm/dl (6.4-8.2); Troponin I < 0.015 ng/ml (0-0.045)
[2019-02-13 12:58] LABS: Influenza A virus by PCR Neg for Influ A (Neg); Influenza B virus by PCR Neg for Influ B (Neg)
--- NOTE | 2019-02-13 15:08 | History & Physical Report ---
Date of Service February 13, 2019 Assessment & Plan (1) Metabolic encephalopathy: This is a 73-year-old female with a PMH of severe COPD on 2L nasal cannula at baseline, chronic diastolic heart failure, HTN, HLD and multiple left-sided rib fractures recently who presents from home with altered mental status and dyspnea on exertion and was found to have acute on chronic respiratory failure, COPD exacerbation and left lower lobe pneumonia. In setting of COPD exacerbation, CO2 retention, PNA -CT head without any acute abnormalities -Expect improvement with Bipap, antibiotics (2) Acute and chronic respiratory failure: Will trial BiPAP in setting of patient's confusion -ABG ordered for 4 hours after BiPAP is initiated -Continue monitoring respiratory status closely (3) COPD exacerbation: Patient with severe COPD at baseline, has chronic CO2 retention with baseline CO2 of 3540 on BMP -CO2 currently elevated to 46. Expect improvement with BiPAP -Continue home Symbicort, albuterol as needed. Hold Spiriva for now -Solu-Medrol 40 twice daily, decrease as tolerated -DuoNeb QIDR (4) Community acquired pneumonia: CXR with evidence of patchy parenchymal base in left inferior base -No leukocytosis, nontoxic in appearance -Started on azithromycin and Rocephin for antibiotic coverage -Plan to continue (5) Multiple fractures of ribs of left side: No longer taking home oxycodone, per patient -Continue Tylenol, tramadol as needed (6) Hypertension: BP initially elevated but repeat BP 123/72 -Continue home losartan, Lasix (7) Chronic diastolic heart failure: Appears euvolemic -No evidence of congestive heart failure on CXR -Most recent echo from November 2017 with concentric LVH, preserved EF of 58% and grade 1 diastolic dysfunction -Continue home dose Lasix (8) Dyslipidemia: Continue atorvastatin (9) Fibromyalgia: Tylenol, tramadol as needed DVT Ppx: SQ Lovenox Code status: FULL PCP: Red Dispo: Admitted to telemetry. Discharge planning ordered. Patient seen in collaboration with Dr. Vasquez. Please see addendum. History of Present Illness Chief Complaint: Confusion, shaking Primary Care Provider: Russ Moon MD This is a 73-year-old female with a PMH of severe COPD on 2L nasal cannula at baseline, chronic diastolic heart failure, HTN, HLD and multiple left-sided rib fractures recently who presents from home with altered mental status and dyspnea on exertion. Patient was recently admitted in December for COPD exacerbation and discharged to [facility]. Returned home from [facility] on February 06 with home health and [facility]. Was evaluated by nursing staff today and was found to be confused with bilateral upper extremity shaking. Patient also endorses confusion, intermittent dry cough, wheezing and chills since yesterday. Decreased p.o. intake for the past 2 days. Was brought in by EMS for further evaluation. Found to be hypertensive at 171/90. CO2 elevated at 46 (elevated at baseline 35- 40). CT head without acute change. CXR with evidence of infiltrate at left base. Given duoneb breathing treatment and started on Rocephin and Azithromycin. Denies fever, lightheadedness, headache, chest pain, palpitations, nausea, vomiting, abdominal pain, dysuria, diarrhea or constipation. Allergies Allergy/AdvReac Type Severity Reaction Status Date / Time naproxen AdvReac Mild GI SYMPTOMS Verified 02/13/19 11:13 Home Medications Home Medications Medication Instructions Recorded Confirmed Type Spiriva with HandiHaler 1 cap INHALATION QAM 12/14/18 02/13/19 History Symbicort 2 puff INHALATION BID 12/14/18 02/13/19 History acetaminophen [Tylenol Extra 1,000 mg PO Q6H PRN 12/14/18 02/13/19 History Strength] albuterol sulfate [Ventolin HFA] 2 puff INHALATION Q4H PRN 12/14/18 02/13/19 History aspirin 81 mg PO QAM 12/14/18 02/13/19 History atorvastatin 40 mg PO QAM 12/14/18 02/13/19 History calcium carbonate [Tums] 200 mg PO BID PRN 12/14/18 02/13/19 History diclofenac sodium [Voltaren] 2 g TOPICAL QID PRN 12/14/18 02/13/19 History docusate sodium [Colace] 100 mg PO BID #60 cap 12/14/18 02/13/19 Rx furosemide [Lasix] 20 mg PO DAILY 12/14/18 02/13/19 History ipratropium-albuterol 3 ml INHALATION Q4H PRN 12/14/18 02/13/19 History losartan 25 mg PO QAM 12/14/18 02/13/19 History metoprolol succinate [Toprol XL] 25 mg PO QAM 12/14/18 02/13/19 History magnesium oxide 400 mg PO DAILY 02/13/19 02/13/19 History sennosides [Senokot] 8.6 mg PO HS PRN 02/13/19 02/13/19 History tramadol 50 mg PO QID PRN 02/13/19 02/13/19 History Past Med/Surg History Social History Preferred Language: Portuguese Communication Ability: Effective Beliefs That Will Affect Care: None marital status: Current Living Situation: Alone current occupational status: retired Other Information That Helps Us Care for You: No Feels Safe at Home: Yes Safety Concerns: Feels Safe At This Time Smoking Status: Former smoker Hx Alcohol Use: No Hx Substance Use: No Physical Exam Physical Exam: General Appearance: WD/WN, no apparent distress, morbidly obese, able to speak in sentences, BUE shakiness Head: normocephalic, atraumatic Eyes: normal inspection, PERRL, EOMI ENT: hearing grossly normal, pharynx normal (moist mucous membranes) Neck: supple, no JVD, no adenopathy Respiratory/Chest: Decreased air movement bilaterally, scattered wheezes. No rales or rhonchi. Saturating at 100% on 3 L nasal cannula. No accessory muscle use. Cardiovascular: Tachycardic, regular rhythm, no murmur, normal peripheral pulses, trace bilateral lower extremity edema Abdomen/GI: normal bowel sounds, soft, non-tender to palpation Extremities/Musculoskelatal: normal inspection, no calf tenderness, normal capillary refill, no pedal edema Neurologic/Psych: alert, normal mood/affect, oriented x 2, thinks it is 1990 Skin: normal color, warm/dry Results & Data Vital Signs (Past 12 Hours) Vital Signs Temp Pulse Pulse Resp BP BP Pulse Ox 02/13/19 14:34 105 H 22 84/66 L 90 02/13/19 12:59 103 H 18 100 02/13/19 12:41 98 H 22 140/107 H 94 02/13/19 12:16 93 H 22 99 02/13/19 11:02 97 02/13/19 10:25 37.2 C 94 H 20 171/90 H 95 Laboratory Results Short CBC 02/13/19 Range/Units 12:08 WBC 6.79 (4.8-10.8) K/uL Hgb 12.1 (12.0-16.0) g/dL Hct 39.1 (37-47) % Plt Count 208 (130-400) K/uL BMP 02/13/19 12:08 Sodium 138 Potassium 3.9 Chloride 90 L Carbon Dioxide 46 H* BUN 10 Creatinine 0.56 L Glucose 118 H Calcium 9.4 Cardiac Enzymes 02/13/19 Range/Units 12:08 Troponin I < 0.015 (0-0.045) ng/ml Liver Function 02/13/19 Range/Units 12:08 Total Bilirubin 0.8 (0.2-1) mg/dl AST 13 L (15-37) U/L ALT 17 (12-78) U/L Alkaline Phosphatase 131 H (45-117) U/L Albumin 3.5 (3.4-5.0) gm/dl Diagnostic Findings CT head: Impression: No acute intracranial abnormality. Chronic and age-related change. CXR: IMPRESSION: Patchy parenchymal infiltrate left base. ECG Rhythm: normal sinus Supervising Physician Co-Signing Physician Notes Patient is a 72-year-old female with history of severe COPD on chronic oxygen dependency, chronic diastolic heart failure and other medical problems presents with history of altered mental status and dyspnea on exertion. Patient history is unreliable given her mental status although she is alert awake and oriented x2 while in ED. she admits to be confused currently. She reports having intermittent dry cough, wheezing and chills since yesterday. Please review HPI for complete details of presentation. Patient was noted to have elevated blood gas CO2 levels. Also noted to have metabolic alkalosis on labs. Troponin first set negative. Urine not suggestive of UTI, influenza screen is negative. CT h ead showed no acute intracranial abnormality. Chest x-ray showed patchy parenchymal left base infiltrate. On exam patient is moderately built and nourished, no apparent distress,+ shakiness, lungs decreased breath sounds, tachycardia, S1-S2, no murmur, abdomen soft nontender, bilateral 1-2+ lower extremity pedal edema, follows simple commands and grossly no focal deficits. Recent is admitted for management of acute on chronic respiratory failure secondary to COPD exacerbation and metabolic encephalopathy, CAP. Patient will be placed on BiPAP given elevated CO2 levels. We will recheck ABG in 4 hours. We will start her on IV antibiotics, Solu-Medrol, duo nebs. Consider pulmonary evaluation if needed. Keep n.p.o. to prevent aspiration. Follow-up cultures. I personally reviewed the record. Patient is interviewed and examined at bedside. Patient's care is coordinated with Sommer Cherry PA-C. Please refer to the documentation above for details of patient's presentation and for discussion of other issues. (1) Community acquired pneumonia Laterality: left Lung location: lower lobe of lung Qualified Code(s): J18.1 - Lobar pneumonia, unspecified organism (2) Hypertension Hypertension type: unspecified Qualified Code(s): I10 - Essential (primary) hypertension
[2019-02-13] MEDS ORDERED: DICLOFENAC SOD 1% GEL 100 GM TUBE EXT PRN (16:40)
[2019-02-13] MEDS ORDERED: ACETAMINOPHEN 500 MG TAB PO PRN (16:40)
[2019-02-13] MEDS ORDERED: CALCIUM CARBONATE 500 MG CHEWABLE TAB PO PRN (16:40)
[2019-02-13] MEDS ORDERED: SENNA 8.6 MG TAB PO PRN (16:40)
[2019-02-13] MEDS ORDERED: ALBUTEROL HFA 8 GM INHALER INH PRN (16:40)
--- NOTE | 2019-02-13 17:18 | Emergency Department Note ---
Entered by Teodora Riley acting as a scribe for Dawson Fox M.D. History of Present Illness General Chief complaint: Shortness of Breath/Dyspnea Stated complaint: weakness/sob Source: patient Limitations: altered mental status History of Present Illness Onset (ago): day(s) (this morning) Location: chest Pain Consistency: + other (episode) Quality: + other (shortness of breath) Relieved By: + medication (breathing treatments) Associated symptoms: + denies other symptoms (any pain, leg swelling), + confusion and + other (tired, shakiness) The patient is a 73 year old male who presents to the Emergency Room with complaints of an episode of shortness of breath starting this morning. The patient states that she normally wears 2L of oxygen all the time. She states that recently, she has been more tired and shaky than normal. She states that her home health nurse believes that she may have an infection somewhere. She reports that this morning she started to become short of breath. She states that on the way here she got breathing treatments which helped some. The patient complains of feeling more confused. The patient denies any pain, recent falls, and leg swelling. HPI and ROS are limited secondary to mental status. Home Medications Home Medications Medication Instructions Recorded Confirmed Type Spiriva with HandiHaler 1 cap INHALATION QAM 12/14/18 02/13/19 History Symbicort 2 puff INHALATION BID 12/14/18 02/13/19 History acetaminophen [Tylenol Extra 1,000 mg PO Q6H PRN 12/14/18 02/13/19 History Strength] albuterol sulfate [Ventolin HFA] 2 puff INHALATION Q4H PRN 12/14/18 02/13/19 History aspirin 81 mg PO QAM 12/14/18 02/13/19 History atorvastatin 40 mg PO QAM 12/14/18 02/13/19 History calcium carbonate [Tums] 200 mg PO BID PRN 12/14/18 02/13/19 History diclofenac sodium [Voltaren] 2 g TOPICAL QID PRN 12/14/18 02/13/19 History docusate sodium [Colace] 100 mg PO BID #60 cap 12/14/18 02/13/19 Rx furosemide [Lasix] 20 mg PO DAILY 12/14/18 02/13/19 History ipratropium-albuterol 3 ml INHALATION Q4H PRN 12/14/18 02/13/19 History losartan 25 mg PO QAM 12/14/18 02/13/19 History metoprolol succinate [Toprol XL] 25 mg PO QAM 12/14/18 02/13/19 History magnesium oxide 400 mg PO DAILY 02/13/19 02/13/19 History sennosides [Senokot] 8.6 mg PO HS PRN 02/13/19 02/13/19 History tramadol 50 mg PO QID PRN 02/13/19 02/13/19 History Allergies Allergy/AdvReac Type Severity Reaction Status Date / Time naproxen AdvReac Mild GI SYMPTOMS Verified 02/13/19 11:13 Past Med/Surg History Social History Preferred Language: Icelandic Communication Ability: Effective Beliefs That Will Affect Care: None marital status: Current Living Situation: Alone current occupational status: retired Other Information That Helps Us Care for You: No Feels Safe at Home: Yes Safety Concerns: Feels Safe At This Time Smoking Status: Former smoker Hx Alcohol Use: No Hx Substance Use: No Review of Systems HPI and ROS are limited secondary to mental status. Physical Exam Vital Signs Vital Signs - 24 hr 02/13/19 10:25 02/13/19 11:02 02/13/19 12:16 Temperature 37.2 C Temperature Source Oral Sepsis Recent Fever Within 48 Hours No Sepsis Action Taken by Nursing No Action Required Pulse Rate 94 H Pulse Rate [Finger] 93 H Pulse Rate from SpO2 Sensor Pulse Rhythm Regular Pulse Strength Normal Respiratory Rate 20 22 Respiratory Effort / Characteristics Non-Labored Spontaneous Respiratory Depth Normal Respiratory Pattern Regular Blood Pressure 171/90 H Blood Pressure [Left Arm] Blood Pressure Mean 117 Blood Pressure Mean [Left Arm] Blood Pressure Position [Left Arm] Pulse Oximetry 95 97 99 Oxygen Delivery Method Nasal Cannula Nasal Cannula Nasal Cannula Oxygen Flow Rate 2 3 3 Fraction of Inspired Oxygen 02/13/19 12:40 02/13/19 12:41 02/13/19 12:43 Temperature Temperature Source Sepsis Recent Fever Within 48 Hours Sepsis Action Taken by Nursing Pulse Rate 100 H 99 H Pulse Rate [Finger] 98 H Pulse Rate from SpO2 Sensor 101 H 98 H Pulse Rhythm Pulse Strength Respiratory Rate 28 H 22 21 Respiratory Effort / Characteristics Respiratory Depth Respiratory Pattern Blood Pressure 143/107 H Blood Pressure [Left Arm] 140/107 H Blood Pressure Mean 119 Blood Pressure Mean [Left Arm] 118 Blood Pressure Position [Left Arm] Pulse Oximetry 97 94 96 Oxygen Delivery Method Nasal Cannula Nasal Cannula Oxygen Flow Rate 3 3 Fraction of Inspired Oxygen 02/13/19 12:59 02/13/19 13:00 02/13/19 13:01 Temperature Temperature Source Sepsis Recent Fever Within 48 Hours Sepsis Action Taken by Nursing Pulse Rate 98 H 96 H Pulse Rate [Finger] 103 H Pulse Rate from SpO2 Sensor 98 H 96 H Pulse Rhythm Pulse Strength Respiratory Rate 18 19 19 Respiratory Effort / Characteristics Non-Labored Spontaneous Respiratory Depth Respiratory Pattern Blood Pressure Blood Pressure [Left Arm] Blood Pressure Mean 125 Blood Pressure Mean [Left Arm] Blood Pressure Position [Left Arm] Pulse Oximetry 100 100 100 Oxygen Delivery Method Nasal Cannula Nasal Cannula Nasal Cannula Oxygen Flow Rate 3 3 3 Fraction of Inspired Oxygen 02/13/19 13:42 02/13/19 14:00 02/13/19 14:32 Temperature Temperature Source Sepsis Recent Fever Within 48 Hours Sepsis Action Taken by Nursing Pulse Rate 108 H 109 H Pulse Rate [Finger] Pulse Rate from SpO2 Sensor 116 H 108 H 110 H Pulse Rhythm Pulse Strength Respiratory Rate 29 H 21 Respiratory Effort / Characteristics Respiratory Depth Respiratory Pattern Blood Pressure Blood Pressure [Left Arm] Blood Pressure Mean Blood Pressure Mean [Left Arm] Blood Pressure Position [Left Arm] Pulse Oximetry 94 90 90 Oxygen Delivery Method Nasal Cannula Nasal Cannula Nasal Cannula Oxygen Flow Rate 3 3 3 Fraction of Inspired Oxygen 02/13/19 14:34 02/13/19 15:00 02/13/19 15:12 Temperature Temperature Source Sepsis Recent Fever Within 48 Hours Sepsis Action Taken by Nursing Pulse Rate 102 H 99 H Pulse Rate [Finger] 105 H Pulse Rate from SpO2 Sensor 101 H Pulse Rhythm Pulse Strength Respiratory Rate 22 23 24 Respiratory Effort / Characteristics Non-Labored Spontaneous Respiratory Depth Normal Respiratory Pattern Regular Blood Pressure Blood Pressure [Left Arm] 84/66 L Blood Pressure Mean Blood Pressure Mean [Left Arm] 72 Blood Pressure Position [Left Arm] Pulse Oximetry 90 99 100 Oxygen Delivery Method Nasal Cannula Nasal Cannula Oxygen Flow Rate 3 3 Fraction of Inspired Oxygen 60 02/13/19 15:30 02/13/19 15:51 02/13/19 16:38 Temperature 36.8 C Temperature Source Oral Sepsis Recent Fever Within 48 Hours Sepsis Action Taken by Nursing Pulse Rate 99 H Pulse Rate [Finger] 101 H Pulse Rate from SpO2 Sensor 99 H Pulse Rhythm Pulse Strength Respiratory Rate 18 20 Respiratory Effort / Characteristics Respiratory Depth Respiratory Pattern Blood Pressure Blood Pressure [Left Arm] 123/72 134/69 Blood Pressure Mean Blood Pressure Mean [Left Arm] 89 90 Blood Pressure Position [Left Arm] Lying Pulse Oximetry 100 91 Oxygen Delivery Method BiPAP Nasal Cannula Oxygen Flow Rate 2 Fraction of Inspired Oxygen GENERAL: Awake, alert, in no distress, confused to events, tremulous. HENT: Normocephalic, atraumatic. EYES: Normal conjunctiva. Sclera non-icteric. NECK: Supple. No nuchal rigidity. RESPIRATORY: Expiratory wheezes. Mildy increased respiratory effort. CARDIAC: Normal rate. Normal rhythm. Extremities warm and well perfused. GI: Soft, non-distended. No tenderness to palpation. No rebound or guarding. RECTAL: Deferred. MUSCULOSKELETAL: Atraumatic. Chest examination reveals no tenderness. LOWER EXTREMITIES: Calves are equal size bilaterally and non-tender. NEURO: No focal sensory or motor deficits noted. No facial droop. SKIN: Warm and dry. No rash or jaundice noted. Course 1049: The patient was evaluated in room C3. A complete history and physical exam was performed. 1257: I reevaluated the patient and updated her on her test results at this time. I discussed the treatment plan with her. She verbally agrees and understands. 1401: I discussed the patient's case with TRINITY Resendiz. She will evaluate the patient for further management. Consultations Consultation #1: I discussed the patient's case with TRINITY Resendiz. She will evaluate the patient for further management. Time: 14:01 Administered Medications Discontinued Medications Albuterol (Duoneb) 3 ml NEB NOW STA Stop: 02/13/19 10:55 Last Admin: 02/13/19 12:00 Dose: 3 ml Documented by: [id number] Albuterol (Duoneb) 12 ml NEB ONE ONE Stop: 02/13/19 12:02 Last Admin: 02/13/19 12:56 Dose: 12 ml Documented by: [id number] Azithromycin 500 mg/ Dextrose 255 mls @ 127.5 mls/hr IV NOW STA Stop: 02/13/19 14:00 Last Infusion: 02/13/19 14:52 Dose: 0 mls/hr Documented by: [id number] Admin: 02/13/19 12:44 Dose: 127.5 mls/hr Documented by: [id number] Ceftriaxone Sodium (Rocephin) 1,000 mg in 50 mls @ 100 mls/hr IV NOW STA Stop: 02/13/19 12:30 Last Infusion: 02/13/19 13:16 Dose: 0 mls/hr Documented by: [id number] Admin: 02/13/19 12:39 Dose: 100 mls/hr Documented by: [id number] Medical Decision Making Differential Diagnosis Differential diagnosis: Etiologies such as infections, reactive airway disease, COPD, pneumonia, pleural effusion, pulmonary edema, ARDS, pneumothorax, CHF, cardiac ischemia, cardiac tamponade, dysrhythmia, anemia, pulmonary embolism, musculoskeletal, gastrointestinal process, as well as others were entertained. Medical Records Attestation: I reviewed the patient's medical records. Home Medications Current Medication List: was personally reviewed by me Laboratory Data Attestation: I reviewed the patient's lab results. Result diagrams: 02/13/19 12:08 02/13/19 12:08 Lab Results 02/13/19 02/13/19 02/13/19 Range/Units 11:35 11:55 12:08 WBC 6.79 (4.8-10.8) K/uL RBC 4.10 L (4.2-5.4) M/uL Hgb 12.1 (12.0-16.0) g/dL Hct 39.1 (37-47) % MCV 95.4 (80-100) fL MCH 29.5 (25-34) pg MCHC 30.9 L (32-36) g/dL RDW Std Deviation 53.1 H (36.4-46.3) fL RDW Coeff of Reg 15.3 H (11.5-14.5) % Plt Count 208 (130-400) K/uL MPV 10.7 H (7.4-10.4) fL Immature Gran % (Auto) 0.0 % Neut % (Auto) 86.2 % Lymph % (Auto) 8.2 % Slope % (Auto) 3.7 % Eos % (Auto) 1.8 % Baso % (Auto) 0.1 % Immature Gran # (Auto) 0.00 (0.00-0.02) K/uL Neut # (Auto) 5.85 (1.4-6.5) K/uL Lymph # (Auto) 0.56 L (1.2-3.4) K/uL Slope # (Auto) 0.25 (0.11-0.59) K/uL Eos # (Auto) 0.12 (0-0.5) K/uL Baso # (Auto) 0.01 (0-0.2) K/uL PT (9.0-12.0) Seconds INR (0.9-1.1) APTT (21.0-31.0) Seconds PTT Ratio VBG pH 7.31 L (7.36-7.41) VBG pCO2 103 H (38-50) mmHg VBG pO2 28 mmHg VBG HCO3 51 mmol/L VBG O2 Saturation < 60.0 % VBG Base Excess 19.3 mEq/L Barometric Pressure 734.8 mm/Hg Sodium (136-145) mmol/L Potassium (3.5-5.1) mmol/L Chloride (98-107) mmol/L Carbon Dioxide (21-32) mmol/L Anion Gap (3-11) BUN (7-18) mg/dl Creatinine (0.6-1.2) mg/dl Est Cr Clr Drug Dosing ml/min Est GFR ( Amer) Est GFR (Non-Af Amer) BUN/Creatinine Ratio (10-20) Glucose (70-99) mg/dl POC Lactic Acid Femi (0.90-1.70) mmol/L Calcium (8.5-10.1) mg/dl Total Bilirubin (0.2-1) mg/dl AST (15-37) U/L ALT (12-78) U/L Alkaline Phosphatase (45-117) U/L Ammonia (11-32) umol/L Troponin I (0-0.045) ng/ml Total Protein (6.4-8.2) gm/dl Albumin (3.4-5.0) gm/dl Globulin (2.5-4.0) gm/dl Albumin/Globulin Ratio (0.9-2) TSH (0.300-4.500) uIu/ml Influenza Type A (PCR) Neg for Influ A (Neg) Influenza Type B (PCR) Neg for Influ B (Neg) 02/13/19 02/13/19 02/13/19 Range/Units 12:08 12:08 12:08 WBC (4.8-10.8) K/uL RBC (4.2-5.4) M/uL Hgb (12.0-16.0) g/dL Hct (37-47) % MCV (80-100) fL MCH (25-34) pg MCHC (32-36) g/dL RDW Std Deviation (36.4-46.3) fL RDW Coeff of Reg (11.5-14.5) % Plt Count (130-400) K/uL MPV (7.4-10.4) fL Immature Gran % (Auto) % Neut % (Auto) % Lymph % (Auto) % Slope % (Auto) % Eos % (Auto) % Baso % (Auto) % Immature Gran # (Auto) (0.00-0.02) K/uL Neut # (Auto) (1.4-6.5) K/uL Lymph # (Auto) (1.2-3.4) K/uL Slope # (Auto) (0.11-0.59) K/uL Eos # (Auto) (0-0.5) K/uL Baso # (Auto) (0-0.2) K/uL PT 11.2 (9.0-12.0) Seconds INR 1.1 (0.9-1.1) APTT 28.8 (21.0-31.0) Seconds PTT Ratio 1.1 VBG pH (7.36-7.41) VBG pCO2 (38-50) mmHg VBG pO2 mmHg VBG HCO3 mmol/L VBG O2 Saturation % VBG Base Excess mEq/L Barometric Pressure mm/Hg Sodium 138 (136-145) mmol/L Potassium 3.9 (3.5-5.1) mmol/L Chloride 90 L (98-107) mmol/L Carbon Dioxide 46 H* (21-32) mmol/L Anion Gap 2.0 L (3-11) BUN 10 (7-18) mg/dl Creatinine 0.56 L (0.6-1.2) mg/dl Est Cr Clr Drug Dosing 84.0 ml/min Est GFR ( Amer) 105.7 Est GFR (Non-Af Amer) 91.2 BUN/Creatinine Ratio 18.6 (10-20) Glucose 118 H (70-99) mg/dl POC Lactic Acid Femi (0.90-1.70) mmol/L Calcium 9.4 (8.5-10.1) mg/dl Total Bilirubin 0.8 (0.2-1) mg/dl AST 13 L (15-37) U/L ALT 17 (12-78) U/L Alkaline Phosphatase 131 H (45-117) U/L Ammonia 12.0 (11-32) umol/L Troponin I < 0.015 (0-0.045) ng/ml Total Protein 7.5 (6.4-8.2) gm/dl Albumin 3.5 (3.4-5.0) gm/dl Globulin 4.0 (2.5-4.0) gm/dl Albumin/Globulin Ratio 0.9 (0.9-2) TSH 0.699 (0.300-4.500) uIu/ml Influenza Type A (PCR) (Neg) Influenza Type B (PCR) (Neg) 02/13/19 Range/Units 12:10 WBC (4.8-10.8) K/uL RBC (4.2-5.4) M/uL Hgb (12.0-16.0) g/dL Hct (37-47) % MCV (80-100) fL MCH (25-34) pg MCHC (32-36) g/dL RDW Std Deviation (36.4-46.3) fL RDW Coeff of Erg (11.5-14.5) % Plt Count (130-400) K/uL MPV (7.4-10.4) fL Immature Gran % (Auto) % Neut % (Auto) % Lymph % (Auto) % Slope % (Auto) % Eos % (Auto) % Baso % (Auto) % Immature Gran # (Auto) (0.00-0.02) K/uL Neut # (Auto) (1.4-6.5) K/uL Lymph # (Auto) (1.2-3.4) K/uL Slope # (Auto) (0.11-0.59) K/uL Eos # (Auto) (0-0.5) K/uL Baso # (Auto) (0-0.2) K/uL PT (9.0-12.0) Seconds INR (0.9-1.1) APTT (21.0-31.0) Seconds PTT Ratio VBG pH (7.36-7.41) VBG pCO2 (38-50) mmHg VBG pO2 mmHg VBG HCO3 mmol/L VBG O2 Saturation % VBG Base Excess mEq/L Barometric Pressure mm/Hg Sodium (136-145) mmol/L Potassium (3.5-5.1) mmol/L Chloride (98-107) mmol/L Carbon Dioxide (21-32) mmol/L Anion Gap (3-11) BUN (7-18) mg/dl Creatinine (0.6-1.2) mg/dl Est Cr Clr Drug Dosing ml/min Est GFR ( Amer) Est GFR (Non-Af Amer) BUN/Creatinine Ratio (10-20) Glucose (70-99) mg/dl POC Lactic Acid Femi 0.71 L (0.90-1.70) mmol/L Calcium (8.5-10.1) mg/dl Total Bilirubin (0.2-1) mg/dl AST (15-37) U/L ALT (12-78) U/L Alkaline Phosphatase (45-117) U/L Ammonia (11-32) umol/L Troponin I (0-0.045) ng/ml Total Protein (6.4-8.2) gm/dl Albumin (3.4-5.0) gm/dl Globulin (2.5-4.0) gm/dl Albumin/Globulin Ratio (0.9-2) TSH (0.300-4.500) uIu/ml Influenza Type A (PCR) (Neg) Influenza Type B (PCR) (Neg) Imaging Data Radiologist's Impression: Radiology results as stated below per my review and the radiologist's interpretation: XR chest 1V portable CLINICAL HISTORY: Dyspnea dyspnea COMPARISON STUDY: 12/22/2018 FINDINGS: Patchy parenchymal infiltrate left base. Lungs otherwise appear clear. Diaphragms are smooth. IMPRESSION: Patchy parenchymal infiltrate left base. The above report was generated using voice recognition software. It may contain grammatical, syntax or spelling errors. Electronically signed by: Byron Reyes M.D. 02/13/2019 11:[address] head/brain wo con CT DOSE: 1074.96 mGy.cm HISTORY: Mental status change confusion TECHNIQUE: Multiaxial CT images of the head were performed without the use of intravenous contrast. A dose lowering technique was utilized adhering to the principles of ALARA. Comparison: 08/06/2013 Findings: The paranasal sinuses and mastoid air cells are clear. The calvarium and skull base are intact. The ventricles and sulci are within normal limits. There is no mass, hematoma, midline shift, or acute infarct. Findings of chronic small vessel change throughout both cerebral hemispheres. This is unchanged from the prior study. Impression: No acute intracranial abnormality. Chronic and age-related change. The above report was generated using voice recognition software. It may contain grammatical, syntax or spelling errors. Electronically signed by: Byron Reyes M.D. 02/13/2019 12:39 PM ECG Data Attestation: I personally reviewed and interpreted this ECG as follows: Indication: SOB/dyspnea Rate (beats per minute): 100 Rhythm: normal sinus Findings: no PVC and no ST elevation Blood Pressure Blood Pressure Findings: Elevated blood pressure Blood Pressure Disposition: further management by hospitalist KULDIP Narrative Patient is a 73-year-old female with a history of COPD on 2 L of home oxygen, hypertension, heart failure, and osteoporosis who home health found more confused today. Unable to perform normal ADLs. EMS found the patient's of breath and wheezing given albuterol and steroids. Patient's mentation is improved. On normal 2 L of oxygen. Patient does states she feels short of breath and is unable to give me a good history. Lives by herself. Confusion does seem worse. No trauma reported but given the change in sensorium CT the head is complete along with chest x-ray and basic laboratory studies. VBG was obtained as well as ammonia and thyroid functions. Urinalysis to be obtained. Patient was wheezing given DuoNeb here. Again already received 125 mg of Solu- Medrol for EMS. Patient's x-ray indicative of a patchy left lower lung infiltrate concerning for pneumonia given the clinical history. Given this and her confusion started on ceftriaxone and azithromycin. Some acute hypercarbia likely contributing. Patient does not appear to require bipap at this time. [facility] hospitalist contacted for admission. Likely a component of hypercapnia and COPD exacerbation as well. Mental status somewhat improved on my reevaluation. Impression & Plan Community acquired pneumonia, COPD exacerbation Discharge Plan Visit Data *Final* Discharge Date/Time: 02/13/19 16:15 Chief Complaint: Shortness of Breath/Dyspnea Stated Complaint: weakness/sob ED Provider: Dawson Fox Discharge Problem: Community acquired pneumonia, COPD exacerbation Patient Disposition: Admitted As Inpatient Discharge Instructions Interventions: ED Discharge Assessment Last Done: 02/13/19 16:15 Discharge Problem: Community acquired pneumonia Qualifiers: Laterality: left Lung location: lower lobe of lung Qualified Code(s): J18.1 - Lobar pneumonia, unspecified organism The scribe's documentation has been prepared under my direction and personally reviewed by me in its entirety. I confirm that the note above accurately reflects all work, treatment, procedures, and medical decision making performed by me.
[2019-02-13] MEDS: ALBUT/IPRATROP 3MG/0.5MG NEB 3 ML VIAL NEB SCH ×2 (17:52→19:18)
[2019-02-13 18:07] LABS: Appearance Urine Turbid (Clear); Bacteria Urine Automated Negative (Negative); Bilirubin Urine Negative (Negative); Blood Urine Negative (Negative); Color Urine Yellow; Epithelial Cell Urine Auto >30 /lpf (0-5); Glucose Urine UA Negative (Negative); Ketones Urine Negative (Negative); Leukocyte Esterase Urine Negative (Negative); Nitrite Urine Negative (Negative); Protein Urine Negative (Negative); RBC Urine Automated 0-4 /hpf (0-4); Specific Gravity Urine 1.013 (1.000-1.030); Urobilinogen Urine Negative (Negative); pH Urine 8.5 (4.5-7.5)
[2019-02-13] MEDS: ENOXAPARIN INJ 40 MG/0.4 ML SYR SQ SCH (18:11)
[2019-02-13] MEDS: methylPREDNISolone 40 MG in SYRINGE 0 ML IV SCH (18:11)
[2019-02-13] MEDS: D5W AND 1/2NSS 1,000 ML IV SCH (18:19)
[2019-02-13] MEDS: BUDESONIDE/FORMOTEROL FUMARATE 160/4.5 60 PUFFS/INHALER INH SCH (20:51)
[2019-02-13] MEDS: DOCUSATE SODIUM 100 MG CAP PO SCH (20:52)
[2019-02-13] MEDS: TRAMADOL HCL 50 MG TABLET PO PRN (20:53)
[2019-02-14] MEDS: methylPREDNISolone 40 MG in SYRINGE 0 ML IV SCH ×2 (06:22→17:05)
[2019-02-14] MEDS: D5W AND 1/2NSS 1,000 ML IV SCH (06:22)
[2019-02-14 06:31] LABS: Hemoglobin 11.6 g/dL (12.0-16.0); Mean Corpuscular Hgb Conc 31.4 g/dL (32-36); Mean Corpuscular Volume 93.4 fL (80-100); Mean Platelet Volume 10.9 fL (7.4-10.4); Platelet Count 196 K/uL (130-400); RDW Coefficient of Variation 14.6 % (11.5-14.5); Red Blood Count 3.96 M/uL (4.2-5.4); White Blood Count 5.79 K/uL (4.8-10.8)
[2019-02-14] MEDS: ALBUT/IPRATROP 3MG/0.5MG NEB 3 ML VIAL NEB SCH ×4 (07:10→19:25)
[2019-02-14 07:17] LABS: BUN Creatinine Ratio 23.5 (10-20); Creatinine Clr Calc Pharmacy 91.1 ml/min; Est GFR (Non-African American) 94.1; Potassium 3.7 mmol/L (3.5-5.1)
[2019-02-14 08:02] LABS: Allen Test Pos (Pos); HCO3 ABG 49 mmol/L (19-24); Oxygen Saturation ABG 97.8 % (90-95); PCO2 ABG 89 mmHg (35-46); PO2 ABG 117 mm/Hg (80-95); pH ABG 7.35 (7.35-7.45)
[2019-02-14] MEDS: TRAMADOL HCL 50 MG TABLET PO PRN ×2 (08:20→17:11)
[2019-02-14] MEDS: FUROSEMIDE 20 MG TAB PO SCH (08:21)
[2019-02-14] MEDS: DOCUSATE SODIUM 100 MG CAP PO SCH ×2 (08:21→20:07)
[2019-02-14] MEDS: BUDESONIDE/FORMOTEROL FUMARATE 160/4.5 60 PUFFS/INHALER INH SCH ×2 (08:21→20:08)
[2019-02-14] MEDS: METOPROLOL SUCC 25MG EXT REL TAB PO SCH (08:21)
--- NOTE | 2019-02-14 09:29 | Hospitalist Progress Note ---
Date of Service February 14, 2019 Assessment & Plan (1) Metabolic encephalopathy: This is a 73-year-old female with a PMH of severe COPD on 2L nasal cannula at baseline, chronic diastolic heart failure, HTN, HLD and multiple left-sided rib fractures recently who presents from home with altered mental status and dyspnea on exertion and was found to have acute on chronic respiratory failure, COPD exacerbation and left lower lobe pneumonia In setting of COPD exacerbation, CO2 retention, PNA -CT head without any acute abnormalities -when seen on admission day once on telemetry rea, patient appears to have issues with memory and concentration such as taking a long time to recall who she follows with as outpatient -patient has been encouraged to use the BIPAP and she has been cooperative, will continue to assess mental status and trend the CO2 retention (2) Acute and chronic respiratory failure: -on BIPAP -trending CO2 retention with ABG -treat COPD exacerbation and community acquired pneumonia -obtain pulmonary consultation (3) COPD exacerbation: Patient with severe COPD at baseline is a CO2 retainer with compensatory alkalosis -Continue home Symbicort, albuterol as needed. Hold Spiriva for now -DuoNeb QIDR -on IV Solu-Medrol 40 twice daily, continue for now (4) Community acquired pneumonia: CXR with evidence of patchy parenchymal base in left inferior base -Started on azithromycin and Rocephin for antibiotic coverage, continue IV antibiotics (5) Multiple fractures of ribs of left side: History of Nondisplaced fractures left fifth sixth seventh and eighth ribs in December 2018 admission CXR on 02/13/19 does not identify acute fractures -Continue Tylenol, tramadol as needed for pain control (6) Hypertension: -Continue home losartan -Continue home oral Lasix 20 mg daily (7) Chronic diastolic heart failure: Appears euvolemic -No evidence of congestive heart failure on CXR -Most recent echo from November 2017 with concentric LVH, preserved EF of 58% and grade 1 diastolic dysfunction -Continue home oral Lasix 20 mg daily (8) Dyslipidemia: Continue atorvastatin (9) Fibromyalgia: Tylenol, tramadol as needed DVT Ppx: SQ Lovenox Code status: FULL Subjective Patient seen and examined while on the BIPAP. She is verbal and able to speak in sentences. She reports that she does not like the BIPAP but will continue to use as advised. denies pain. no vomiting. no fever Physical Exam Constitutional: cooperative Eyes: PERRL, conjunctivae normal, anicteric sclerae EOM intact bilaterally ENMT: external ear and nose normal, oropharynx normal Neck: trachea midline, no thyromegaly Respiratory: on BIPAP Cardiovascular: Rate/Rhythm: regular rate and regular rhythm Gastrointestinal (Abdomen): normal bowel sounds, soft, nontender, no hepatospl enomegaly Musculoskeletal: Head/Neck/Chest: normocephalic and head atraumatic Neurologic: PERRL, EOMI, accommodation nl, no face palsy, no dysarthria Psychiatric: Orientation: alert Eye Contact: good eye contact Results & Data Vital Signs (Past 12 Hours) Vital Signs Temp Pulse Pulse Resp BP BP Pulse Ox 02/14/19 07:11 82 20 99 02/14/19 07:10 82 20 99 02/14/19 04:15 36.8 C 102 H 18 144/72 H 100 02/14/19 00:00 101 H 02/13/19 23:46 36.6 C 99 H 20 149/66 H 100 (1) Community acquired pneumonia Laterality: left Lung location: lower lobe of lung Qualified Code(s): J18.1 - Lobar pneumonia, unspecified organism (2) Hypertension Hypertension type: unspecified Qualified Code(s): I10 - Essential (primary) hypertension
[2019-02-14] MEDS: ATORVASTATIN 40 MG TAB PO SCH (10:41)
[2019-02-14] MEDS: ASPIRIN 81 MG ECTAB PO SCH (10:41)
[2019-02-14] MEDS: MAGNESIUM OXIDE 400 MG TAB PO SCH (10:41)
[2019-02-14] MEDS: LOSARTAN POTASSIUM 25 MG TAB PO SCH (10:41)
--- NOTE | 2019-02-14 13:11 | Pulmonary Consultation ---
Date of Consultation February 14, 2019 Assessment & Plan (1) Acute and chronic respiratory failure: acute on chronic hypercapnic respiratory failure due to COPD exacerbation did well on bipap improving but still with wheezing ABG mostly chronic today COPD continue albuterol, ipratropium, Symbicort.. restart her tiotropium on discharge continue steroids at current dose. likely taper tomorrow possible LLL pneumonia - on ceftriaxone and azithromycin History of Present Illness Attending Physician: Glenn Madison MD History of Present Illness 73 y/o female with a history of COPD, HTN, diastolic dysfunction who presents with shortness of breath and altered mental status. she says she has had a sore throat and congestion. She was found by home nurse to be confused. she says her symptoms started about 2 days ago. This morning she feels better. she wore the bipap overnight. she was started on nebs, steroids and abx. denies fevers, chills. denies sick contacts. no other complaints. Allergies Allergy/AdvReac Type Severity Reaction Status Date / Time naproxen AdvReac Mild GI SYMPTOMS Verified 02/13/19 11:13 Home Medications Home Medications Medication Instructions Recorded Confirmed Type Spiriva with HandiHaler 1 cap INHALATION QAM 12/14/18 02/13/19 History Symbicort 2 puff INHALATION BID 12/14/18 02/13/19 History acetaminophen [Tylenol Extra 1,000 mg PO Q6H PRN 12/14/18 02/13/19 History Strength] albuterol sulfate [Ventolin HFA] 2 puff INHALATION Q4H PRN 12/14/18 02/13/19 History aspirin 81 mg PO QAM 12/14/18 02/13/19 History atorvastatin 40 mg PO QAM 12/14/18 02/13/19 History calcium carbonate [Tums] 200 mg PO BID PRN 12/14/18 02/13/19 History diclofenac sodium [Voltaren] 2 g TOPICAL QID PRN 12/14/18 02/13/19 History docusate sodium [Colace] 100 mg PO BID #60 cap 12/14/18 02/13/19 Rx furosemide [Lasix] 20 mg PO DAILY 12/14/18 02/13/19 History ipratropium-albuterol 3 ml INHALATION Q4H PRN 12/14/18 02/13/19 History losartan 25 mg PO QAM 12/14/18 02/13/19 History metoprolol succinate [Toprol XL] 25 mg PO QAM 12/14/18 02/13/19 History magnesium oxide 400 mg PO DAILY 02/13/19 02/13/19 History sennosides [Senokot] 8.6 mg PO HS PRN 02/13/19 02/13/19 History tramadol 50 mg PO QID PRN 02/13/19 02/13/19 History Patient History Social History Preferred Language: Palestinian Communication Ability: Effective Beliefs That Will Affect Care: None marital status: / Current Living Situation: Alone current occupational status: retired Other Information That Helps Us Care for You: No Feels Safe at Home: Yes Safety Concerns: Feels Safe At This Time Smoking Status: Former smoker Hx Alcohol Use: No Hx Substance Use: No Review of Systems Review of Systems: Constitutional: no fevers no chills no weight loss Eyes: no blurry or double vision EENT: + sore throat, + congestion Respiratory: + cough + shortness of breath Cardiovascular: no chest pain no palpitations GI: no abdominal pain, no nausea, no vomiting, no diarrhea, no constipation Gu: no dysuria, no frequency MSK: no joint pain, no muscle aches Skin: no rash Neuro: no headache, no dizziness, no focal weakness Endocrine: no heat or cold intolerance heme: no easy bruising, no lymphadenopathy Psych: no depression, no anxiety Physical Exam Physical Exam: Constitutional: Comfortable NAD HEENT: normocephalic atraumatic. MMM. no cervical lymphadenopathy CV: RRR nl s1,s2 no murmurs rubs or gallops Lungs: scattered bilaterally. no accessory muscle use Abd: soft nontender nondistended. normal bowel sounds Ext: no edema. no cyanosis, no clubbing Skin: warm dry Neuro: alert and oriented but slightly confused. moving all extremities Psych: normal mood and affect Results & Data Vital Signs (Past 12 Hours) Vital Signs Temp Pulse Pulse Resp BP Pulse Ox 02/14/19 12:19 36.8 C 101 H 20 167/71 H 97 02/14/19 11:41 85 16 98 02/14/19 08:00 60 02/14/19 07:11 82 20 99 05/03/19 07:10 82 20 99 02/14/19 07:00 36.5 C 100 H 20 153/77 H 98 02/14/19 04:15 36.8 C 102 H 18 144/72 H 100 Laboratory Results Laboratory Results - last 24 hr 02/13/19 02/14/19 02/14/19 17:50 06:13 06:13 WBC 5.79 RBC 3.96 L Hgb 11.6 L Hct 37.0 MCV 93.4 MCH 29.3 MCHC 31.4 L RDW Std Deviation 50.0 H RDW Coeff of Reg 14.6 H Plt Count 196 MPV 10.9 H ABG pH ABG pCO2 ABG pO2 ABG HCO3 ABG O2 Saturation ABG Base Excess Cla[place] Test Barometric Pressure Oxygen Given Sodium 139 Potassium 3.7 Chloride 91 L Carbon Dioxide 47 H* Anion Gap 1.0 L BUN 12 Creatinine 0.51 L Est Cr Clr Drug Dosing 91.1 Est GFR ( Amer) 109.0 Est GFR (Non-Af Amer) 94.1 BUN/Creatinine Ratio 23.5 H Glucose 124 H Calcium 9.0 Urine Color Yellow Urine Appearance Turbid H Urine pH 8.5 H Ur Specific [place] 1.013 Urine Protein Negative Urine Glucose (UA) Negative Urine Ketones Negative Urine Blood Negative Urine Nitrite Negative Urine Bilirubin Negative Urine Urobilinogen Negative Ur Leukocyte Esterase Negative Urine WBC (Auto) 1-5 Urine RBC (Auto) 0-4 U Hyaline Cast (Auto) 1-5 U Epithel Cells (Auto) >30 H Urine Bacteria (Auto) Negative 02/14/19 07:46 WBC RBC Hgb Hct MCV MCH MCHC RDW Std Deviation RDW Coeff of Reg Plt Count MPV ABG pH 7.35 ABG pCO2 89 H ABG pO2 117 H ABG HCO3 49 H ABG O2 Saturation 97.8 H ABG Base Excess 19.1 H Clarence Test Pos Barometric Pressure 732.2 Oxygen Given 50% Sodium Potassium Chloride Carbon Dioxide Anion Gap BUN Creatinine Est Cr Clr Drug Dosing Est GFR ( Amer) Est GFR (Non-Af Amer) BUN/Creatinine Ratio Glucose Calcium Urine Color Urine Appearance Urine pH Ur Specific [place] Urine Protein Urine Glucose (UA) Urine Ketones Urine Blood Urine Nitrite Urine Bilirubin Urine Urobilinogen Ur Leukocyte Esterase Urine WBC (Auto) Urine RBC (Auto) U Hyaline Cast (Auto) U Epithel Cells (Auto) Urine Bacteria (Auto) Diagnostic Findings XR chest 1V portable CLINICAL HISTORY: Dyspnea dyspnea COMPARISON STUDY: 12/22/2018 FINDINGS: Patchy parenchymal infiltrate left base. Lungs otherwise appear clear. Diaphragms are smooth. IMPRESSION: Patchy parenchymal infiltrate left base. The above report was generated using voice recognition software. It may contain grammatical, syntax or spelling errors. Electronically signed by: Byron Reyes M.D. 02/13/2019 11:20 AM
[2019-02-14] MEDS: AZITHROMYCIN 500 MG in DEXTROSE 5% 250 ML IV SCH (14:16)
[2019-02-14] MEDS: cefTRIAXone SODIUM 2,000 MG in DEXTROSE 5% 50 ML IV SCH (14:16)
[2019-02-14] MEDS: ENOXAPARIN INJ 40 MG/0.4 ML SYR SQ SCH (17:05)
[2019-02-15] MEDS: methylPREDNISolone 40 MG in SYRINGE 0 ML IV SCH (06:13)
[2019-02-15 06:47] LABS: Hematocrit (blood only) 36.1 % (37-47); Hemoglobin 11.3 g/dL (12.0-16.0); Mean Corpuscular Hgb Conc 31.3 g/dL (32-36); Mean Corpuscular Volume 93.8 fL (80-100); Mean Platelet Volume 11.4 fL (7.4-10.4); Platelet Count 222 K/uL (130-400); RDW Coefficient of Variation 15.3 % (11.5-14.5); RDW Standard Deviation 51.8 fL (36.4-46.3); Red Blood Count 3.85 M/uL (4.2-5.4); White Blood Count 8.64 K/uL (4.8-10.8)
[2019-02-15] MEDS: ALBUT/IPRATROP 3MG/0.5MG NEB 3 ML VIAL NEB SCH ×2 (07:17→11:01)
[2019-02-15 07:19] LABS: BUN Creatinine Ratio 28.5 (10-20); Blood Urea Nitrogen 18 mg/dl (7-18); Calcium 9.3 mg/dl (8.5-10.1); Chloride 92 mmol/L (98-107); Creatinine Clr Calc Pharmacy 74.2 ml/min; Est GFR (African American) 101.7; Est GFR (Non-African American) 87.7; Glucose 101 mg/dl (70-99); Potassium 4.2 mmol/L (3.5-5.1); Sodium 140 mmol/L (136-145)
[2019-02-15] MEDS: METOPROLOL SUCC 25MG EXT REL TAB PO SCH (08:20)
[2019-02-15] MEDS: ATORVASTATIN 40 MG TAB PO SCH (08:20)
[2019-02-15] MEDS: MAGNESIUM OXIDE 400 MG TAB PO SCH (08:21)
[2019-02-15] MEDS: FUROSEMIDE 20 MG TAB PO SCH (08:21)
[2019-02-15] MEDS: TRAMADOL HCL 50 MG TABLET PO PRN ×3 (08:21→20:27)
[2019-02-15] MEDS: ASPIRIN 81 MG ECTAB PO SCH (08:21)
[2019-02-15] MEDS: LOSARTAN POTASSIUM 25 MG TAB PO SCH (08:21)
[2019-02-15] MEDS: DOCUSATE SODIUM 100 MG CAP PO SCH ×2 (08:22→20:27)
[2019-02-15] MEDS: BUDESONIDE/FORMOTEROL FUMARATE 160/4.5 60 PUFFS/INHALER INH SCH ×2 (08:22→20:27)
--- NOTE | 2019-02-15 10:45 | Hospitalist Progress Note ---
Date of Service February 15, 2019 Assessment & Plan (1) Metabolic encephalopathy: This is a 73-year-old female with a PMH of severe COPD on 2L nasal cannula at baseline, chronic diastolic heart failure, HTN, HLD and multiple left-sided rib fractures recently who presents from home with altered mental status and dyspnea on exertion and was found to have acute on chronic respiratory failure, COPD exacerbation and left lower lobe pneumonia Acute Metabolic Encephalopathy In setting of COPD exacerbation, CO2 retention, PNA -CT head without any acute abnormalities -when seen on admission day once on telemetry rea, patient appears to have issues with memory and concentration such as taking a long time to recall who she follows with as outpatient -patient has been encouraged on BIPAP to bring down CO2 retention, given that patient's mental status appears improved, will try to reduce the time of BIPAP and monitor how patient breathes on nasal cannula (2) Acute and chronic respiratory failure: -continue to treat COPD exacerbation and community acquired pneumonia -patient has been encouraged on BIPAP to bring down CO2 retention, given that patient's mental status appears improved, will try to reduce the time of BIPAP and monitor how patient breathes on nasal cannula (3) COPD exacerbation: acute COPD with exacerbation at baseline patient appears to be a chronic CO2 retainer -Continue home Symbicort, albuterol as needed. Hold Spiriva for now -Sruthib QIDR -will de-escalate IV Solu-Medrol 40 twice daily to prednisone 40 mg daily as patient having clinical improvements (4) Community acquired pneumonia: CXR with evidence of patchy parenchymal base in left inferior base -Started on azithromycin and Rocephin for antibiotic coverage -blood cultures from 02/13/19 with no growth to date, continue IV antibiotics for now, consider transitioning to oral antibiotics when less time on the BIPAP (5) Multiple fractures of ribs of left side: History of Nondisplaced fractures left fifth sixth seventh and eighth ribs in December 2018 admission CXR on 02/13/19 does not identify acute fractures -Continue Tylenol, tramadol as needed for pain control (6) Hypertension: -Continue home losartan -Continue home oral Lasix 20 mg daily (7) Chronic diastolic heart failure: Appears euvolemic -No evidence of congestive heart failure on CXR -Most recent echo from November 2017 with concentric LVH, preserved EF of 58% and grade 1 diastolic dysfunction -Continue home oral Lasix 20 mg daily (8) Dyslipidemia: Continue atorvastatin (9) Fibromyalgia: Tylenol, tramadol as needed DVT Ppx: SQ Lovenox Code status: FULL Subjective Patient seen at bedside this AM. Patient had BIPAP overnight. On nasal cannula, patient speaking comfortably with the nurse. denies chest pain. denies palpitations. denies rib pain. denies abdomen pain. denies lightheadedness. no dizziness Physical Exam Constitutional: cooperative Eyes: PERRL, conjunctivae normal, anicteric sclerae EOM intact bilaterally ENMT: external ear and nose normal, oropharynx normal Neck: trachea midline, no thyromegaly Respiratory: no wheezing and no crackles but not taking deep inhalation when instructed. on nasal cannula Cardiovascular: Rate/Rhythm: regular rate and regular rhythm Gastrointestinal (Abdomen): normal bowel sounds, soft, nontender, no hepatosplenomegaly Musculoskeletal: Head/Neck/Chest: normocephalic and head atraumatic Neurologic: PERRL, EOMI, accommodation nl, no face palsy, no dysarthria Psychiatric: A+Ox3, euthymic affect Results & Data Vital Signs (Past 12 Hours) Vital Signs Temp Pulse Pulse Resp BP BP Pulse Ox 02/15/19 08:14 36.5 C 105 H 20 104/47 L 92 02/15/19 08:00 90 02/15/19 07:17 62 18 96 02/15/19 04:21 36.7 C 100 H 18 134/81 98 02/14/19 23:49 78 23 99 02/14/19 23:11 95 H (1) Community acquired pneumonia Laterality: left Lung location: lower lobe of lung Qualified Code(s): J18.1 - Lobar pneumonia, unspecified organism (2) Hypertension Hypertension type: unspecified Qualified Code(s): I10 - Essential (primary) hypertension
--- NOTE | 2019-02-15 12:18 | Pulmonology Progress Note ---
Date of Service February 15, 2019 Assessment & Plan (1) Acute and chronic respiratory failure: acute on chronic hypercapnic respiratory failure due to COPD exacerbation improving COPD continue albuterol, ipratropium, Symbicort.. restart her tiotropium on discharge continue steroids for 7 days can remain off bipap if not needed for sob or mental status possible LLL pneumonia - on ceftriaxone and azithromycin Subjective breathing improved no complaints Physical Exam Physical Exam: Constitutional: Comfortable NAD HEENT: normocephalic atraumatic. CV: RRR nl s1,s2 no murmurs rubs or gallops Lungs: clear to auscultation bilaterally. no accessory muscle use Abd: soft nontender nondistended. normal bowel sounds Ext: no edema. no cyanosis, no clubbing Skin: warm dry Neuro: alert and oriented notconfused today. moving all extremities Psych: normal mood and affect Results & Data Vital Signs (Past 12 Hours) Vital Signs Temp Pulse Pulse Resp BP BP Pulse Ox 02/15/19 11:01 101 H 16 91 02/15/19 08:14 36.5 C 105 H 20 104/47 L 92 02/15/19 08:00 90 02/15/19 07:17 62 18 96 02/15/19 04:21 36.7 C 100 H 18 134/81 98
[2019-02-15 12:21] LABS: HCO3 ABG 45 mmol/L (19-24); Oxygen Saturation ABG 90.7 % (90-95); PCO2 ABG 68 mmHg (35-46); PO2 ABG 57 mm/Hg (80-95); pH ABG 7.44 (7.35-7.45)
[2019-02-15 12:27] LABS: Allen Test Pos (Pos)
[2019-02-15] MEDS: predniSONE 20 MG TAB PO SCH (12:47)
[2019-02-15] MEDS: AZITHROMYCIN 500 MG in DEXTROSE 5% 250 ML IV SCH (12:48)
[2019-02-15] MEDS: cefTRIAXone SODIUM 2,000 MG in DEXTROSE 5% 50 ML IV SCH (14:51)
[2019-02-15] MEDS: SODIUM CHLORIDE 0.9% 1000ML 1,000 ML IV SCH (15:45)
[2019-02-15] MEDS: ENOXAPARIN INJ 40 MG/0.4 ML SYR SQ SCH (18:34)
[2019-02-16] MEDS: SODIUM CHLORIDE 0.9% 1000ML 1,000 ML IV SCH (03:30)
[2019-02-16 07:22] LABS: Base Excess VBG 14.7 mEq/L; Oxygen Saturation VBG 91.5 %; pH VBG 7.33 (7.36-7.41)
[2019-02-16 07:28] LABS: Basophils # (auto) 0.01 K/uL (0-0.2); Basophils % (auto) 0.1 %; Eosinophils # (auto) 0.08 K/uL (0-0.5); Eosinophils % (auto) 0.9 %; Hematocrit (blood only) 36.9 % (37-47); Hemoglobin 11.2 g/dL (12.0-16.0); Immature Granulocytes # (auto) 0.01 K/uL (0.00-0.02); Immature Granulocytes % (auto) 0.1 %; Lymphocytes # (auto) 1.67 K/uL (1.2-3.4); Lymphocytes % (auto) 19.3 %; Mean Corpuscular Hgb Conc 30.4 g/dL (32-36); Mean Corpuscular Volume 94.1 fL (80-100); Mean Platelet Volume 10.7 fL (7.4-10.4); Monocytes # (auto) 0.88 K/uL (0.11-0.59); Monocytes % (auto) 10.2 %; Neutrophils % (auto) 69.4 %; Platelet Count 233 K/uL (130-400); RDW Coefficient of Variation 15.3 % (11.5-14.5); Red Blood Count 3.92 M/uL (4.2-5.4); White Blood Count 8.65 K/uL (4.8-10.8)
[2019-02-16] MEDS: TRAMADOL HCL 50 MG TABLET PO PRN ×2 (07:36→20:36)
[2019-02-16] MEDS: ATORVASTATIN 40 MG TAB PO SCH (08:13)
[2019-02-16] MEDS: predniSONE 20 MG TAB PO SCH (08:13)
[2019-02-16] MEDS: MAGNESIUM OXIDE 400 MG TAB PO SCH (08:13)
[2019-02-16] MEDS: BUDESONIDE/FORMOTEROL FUMARATE 160/4.5 60 PUFFS/INHALER INH SCH ×2 (08:14→20:36)
[2019-02-16] MEDS: ASPIRIN 81 MG ECTAB PO SCH (08:14)
[2019-02-16] MEDS: METOPROLOL SUCC 25MG EXT REL TAB PO SCH (08:14)
[2019-02-16] MEDS: DOCUSATE SODIUM 100 MG CAP PO SCH ×2 (08:14→20:35)
--- NOTE | 2019-02-16 10:17 | XRay Report ---
TWO VIEW CHEST CLINICAL HISTORY: Follow-up airspace consolidation FINDINGS: PA and lateral chest radiographs are compared to study dated 02/13/2019 and correlated with c hest CT dated 12/14/2018. The heart is enlarged and there is atherosclerotic calcification of the thora cic aorta. The pulmonary vasculature is noncongested. Chronic interstitial thickening is similar to p revious. Streaky airspace opacities are again seen in the lower lungs. Trace pleural effusions are id entified. There is no pneumothorax. The skeletal structures are osteopenic. Degenerative change and h yperkyphosis are noted in the thoracic spine. There are thoracic compression deformities. There are h ealed left-sided rib fractures. IMPRESSION: 1. Cardiomegaly without radiographic evidence of congestive failure. 2. Streaky airspace opacities are again seen in the lower lungs. This could represent atelectasis corbin jose a mild infectious/inflammatory pneumonitis and clinical correlation will be required. 3. Trace pleural effusions. Electronically signed by: Nate Rabago M.D. 02/16/2019 10:16 AM
[2019-02-16] MEDS: AZITHROMYCIN 500 MG in DEXTROSE 5% 250 ML IV SCH (11:56)
--- NOTE | 2019-02-16 12:43 | Hospitalist Progress Note ---
Date of Service February 16, 2019 Assessment & Plan (1) Metabolic encephalopathy: This is a 73-year-old female with a PMH of severe COPD on 2L nasal cannula at baseline, chronic diastolic heart failure, HTN, HLD and multiple left-sided rib fractures recently who presents from home with altered mental status and dyspnea on exertion and was found to have acute on chronic respiratory failure, COPD exacerbation and left lower lobe pneumonia Acute Metabolic Encephalopathy In setting of COPD exacerbation, CO2 retention, pneumonia -CT head without any acute abnormalities -when seen on admission day once on telemetry rea, patient appears to have issues with memory and concentration such as taking a long time to recall who she follows with as outpatient -patient has been encouraged on BIPAP to bring down CO2 retention during this hospital stay -as of 02/15/19 given that patient's mental status appears improved, and patient allowed to be on nasal cannula alone (2) Acute and chronic respiratory failure: -continue to treat COPD exacerbation and community acquired pneumonia -as of 02/15/19 given that patient's mental status appears improved, and patient off BIPAP and allowed to be on nasal cannula alone -will plan on 2 step test on 02/16/19 (3) COPD exacerbation: acute COPD with exacerbation at baseline patient appears to be a chronic CO2 retainer -have transitioned nebulizer treatments from scheduled to prn for wheezing or shortness of breath -resume Spiriva for now -Continue home Symbicort. -have transitioned patient from IV Solu-Medrol to prednisone taper on 02/15/19 (4) Community acquired pneumonia: admission CXR with evidence of patchy parenchymal base in left inferior base -was Started on azithromycin and Rocephin for antibiotic coverage -blood cultures from 02/13/19 with no growth to date -Lactic acidosis elevated lactic acid 3.1 on 02/15/19 may be from nebulizer treatments; have stopped the scheduled nebulizer treatments and given IV fluids , and lactic acid downtrended do not believe that the elevated lactic acid level is a marker for sepsis as the 02/13/19 blood cultures with no growth to date and patient has already been on respiratory IV antibiotics Repeat CXR on 02/16/19 "PA and lateral chest radiographs are compared to study dated 02/13/2019 and correlated with chest CT dated 12/14/2018. The heart is enlarged and there is atherosclerotic calcification of the thoracic aorta. The pulmonary vasculature is noncongested. Chronic interstitial thickening is similar to previous. Streaky airspace opacities are again seen in the lower lungs. Trace pleural effusions are identified. There is no pneumothorax. The skeletal structures are osteopenic. Degenerative change and hyperkyphosis are noted in the thoracic spine. There are thoracic compression deformities. There are healed left-sided rib fractures." continue ceftriaxone and azithromycin for now (5) Multiple fractures of ribs of left side: History of Nondisplaced fractures left fifth sixth seventh and eighth ribs in December 2018 admission CXR on 02/13/19 does not identify acute fractures and the CXR on 02/16/19 confirms that the fractures have healed -Continue Tylenol, tramadol as needed for pain control (6) Hypertension: -Continue home losartan -Continue home oral Lasix 20 mg daily (7) Chronic diastolic heart failure: Appears euvolemic -No evidence of congestive heart failure on CXR -Most recent echo from November 2017 with concentric LVH, preserved EF of 58% and grade 1 diastolic dysfunction -Continue home oral Lasix 20 mg daily (8) Dyslipidemia: Continue atorvastatin (9) Fibromyalgia: Tylenol, tramadol as needed DVT Ppx: SQ Lovenox Code status: FULL Subjective Patient breathing on nasal cannula 2 liters/min. denies acute shortness of breath at this time. Patient encouraged to do more activities today. denies chest pain. denies chest pain. no palpitations. no headache. no lightheadedness Physical Exam Constitutional: cooperative Eyes: PERRL, conjunctivae normal, anicteric sclerae EOM intact bilaterally ENMT: external ear and nose normal, oropharynx normal Neck: trachea midline, no thyromegaly Cardiovascular: Rate/Rhythm: regular rate and regular rhythm Gastrointestinal (Abdomen): normal bowel sounds, soft, nontender, no hepatosplenomegaly Musculoskeletal: Head/Neck/Chest: normocephalic and head atraumatic Neurologic: PERRL, EOMI, accommodation nl, no face palsy, no dysarthria Psychiatric: A+Ox3, euthymic affect Orientation: alert Eye Contact: good eye contact Results & Data Vital Signs (Past 12 Hours) Vital Signs Temp Pulse Pulse Resp BP BP Pulse Ox 02/16/19 11:03 36.4 C L 88 18 173/87 H 93 02/16/19 08:00 77 02/16/19 07:00 36.7 C 93 H 16 164/82 H 97 02/16/19 03:53 36.6 C 89 20 151/90 H 98 02/16/19 01:07 94 H (1) Community acquired pneumonia Laterality: left Lung location: lower lobe of lung Qualified Code(s): J18.1 - Lobar pneumonia, unspecified organism (2) Hypertension Hypertension type: unspecified Qualified Code(s): I10 - Essential (primary) hypertension
[2019-02-16] MEDS ORDERED: METOPROLOL SUCC 25MG EXT REL TAB PO SCH (14:15)
[2019-02-16] MEDS: cefTRIAXone SODIUM 2,000 MG in DEXTROSE 5% 50 ML IV SCH (14:29)
[2019-02-16] MEDS: TIOTROPIUM BROMIDE 5 PUFF/90 MCG INH INH SCH (14:29)
[2019-02-16] MEDS ORDERED: METOPROLOL TARTRATE 25 MG TAB PO ONE (14:45)
[2019-02-16] MEDS: ENOXAPARIN INJ 40 MG/0.4 ML SYR SQ SCH (17:27)
[2019-02-16] MEDS ORDERED: CARVEDILOL 3.125 MG TAB PO SCH (21:00)
[2019-02-17] MEDS: TRAMADOL HCL 50 MG TABLET PO PRN (05:20)
[2019-02-17 06:30] LABS: Basophils # (auto) 0.01 K/uL (0-0.2); Basophils % (auto) 0.1 %; Eosinophils # (auto) 0.23 K/uL (0-0.5); Eosinophils % (auto) 3.1 %; Hematocrit (blood only) 37.9 % (37-47); Hemoglobin 11.6 g/dL (12.0-16.0); Immature Granulocytes # (auto) 0.02 K/uL (0.00-0.02); Immature Granulocytes % (auto) 0.3 %; Lymphocytes # (auto) 1.79 K/uL (1.2-3.4); Lymphocytes % (auto) 24.1 %; Mean Corpuscular Hgb Conc 30.6 g/dL (32-36); Mean Corpuscular Volume 94.5 fL (80-100); Mean Platelet Volume 10.6 fL (7.4-10.4); Monocytes # (auto) 1.12 K/uL (0.11-0.59); Monocytes % (auto) 15.1 %; Neutrophils # (auto) 4.26 K/uL (1.4-6.5); Neutrophils % (auto) 57.3 %; Platelet Count 215 K/uL (130-400); RDW Coefficient of Variation 15.4 % (11.5-14.5); RDW Standard Deviation 53.6 fL (36.4-46.3); Red Blood Count 4.01 M/uL (4.2-5.4); White Blood Count 7.43 K/uL (4.8-10.8)
[2019-02-17 07:41] LABS: Albumin Globulin Ratio 0.9 (0.9-2); Albumin Level 2.9 gm/dl (3.4-5.0); BUN Creatinine Ratio 26.7 (10-20); Bilirubin,Total 0.4 mg/dl (0.2-1); Calcium 8.5 mg/dl (8.5-10.1); Creatinine Clr Calc Pharmacy 80.6 ml/min; Est GFR (African American) 104.5; Est GFR (Non-African American) 90.2; Globulin 3.4 gm/dl (2.5-4.0); Total Protein 6.3 gm/dl (6.4-8.2)
[2019-02-17] MEDS: DOCUSATE SODIUM 100 MG CAP PO SCH (08:03)
[2019-02-17] MEDS: ASPIRIN 81 MG ECTAB PO SCH (08:04)
[2019-02-17] MEDS: BUDESONIDE/FORMOTEROL FUMARATE 160/4.5 60 PUFFS/INHALER INH SCH (08:04)
[2019-02-17] MEDS: TIOTROPIUM BROMIDE 5 PUFF/90 MCG INH INH SCH (08:04)
[2019-02-17] MEDS: MAGNESIUM OXIDE 400 MG TAB PO SCH (08:04)
[2019-02-17] MEDS: ATORVASTATIN 40 MG TAB PO SCH (08:04)
[2019-02-17] MEDS: predniSONE 20 MG TAB PO SCH (08:04)
[2019-02-17] MEDS ORDERED: METOPROLOL SUCC 50MG EXT REL TAB PO SCH (09:00)
--- NOTE | 2019-02-17 10:39 | Progress Note ---
DATE: 02/17/2019 PULMONARY PROGRESS NOTE TIME: 9:20 a.m. SUBJECTIVE: The patient states she is feeling better. She is less short of breath than when she presented a few days ago. She is still coughing some moreira secretions according to nursing staff. The patient denies chest pains. She admits to having discomfort in the back of her throat when she tilts her head forward. She states this has occurred since her fall in December. She admits to having dysphagia. When she eats solid foods, it feels like it is difficult to swallow. She has had endoscopy before. She thinks they may have had to stretch her throat, but she is not certain. She admits to having heartburn about 3 or 4 days per week for which she is not taking any baseline medications. OBJECTIVE: GENERAL: The patient was comfortable at rest. Weight is 84 kilograms with BMI 36.2. HEENT: Pupils were reactive. Mouth exam showed mild erythema in the soft palate. NECK: Palpation of the neck reveals no lymph nodes. VITAL SIGNS: Cardiac rate was 77 per minute. Rhythm was regular. Blood pressure 149/73. Her blood pressures typically run on the high side. Temperature 36.7. Respiratory rate 20. LUNGS: Breath sounds are diffusely diminished. Mild rales are heard posteriorly. There was no accessory muscle use. Oxygen saturation on 2 liters at the time of my exam was 97%. EXTREMITIES: Revealed no cyanosis, clubbing or edema. LABORATORY DATA: White blood cell count today is 7.43. Hemoglobin 11.6. Platelets 215,000. ABGs were reviewed. On 02/14/2019, her pCO2 was 89 with a low normal pH of 7.35. On 15 of February, pH was 7.44 with pCO2 of 68 on 2 liters of oxygen. Obviously, the patient is a chronic retainer of carbon dioxide and this was seen at least as far back as December of 2017. Electrolytes today show sodium 141, potassium 4, chloride 99, and bicarbonate 45. BUN 16 with a creatinine of 0.58. Chest x-ray done today again shows some streak atelectatic changes that correlates with her prior CAT scan done 12/14/2018. This appears to be in the lingula. I am doubtful this reflects pneumonia. Blood cultures from this hospital stay show no growth. EKG from 02/15/2019 shows sinus tachycardia with rate 111, but was otherwise normal. IMPRESSION: 1. Acute on chronic respiratory failure with hypoxia and hypercarbia. 2. Chronic obstructive pulmonary disease exacerbation. 3. Kyphosis. 4. Atelectasis, left lung. 5. Dysphagia and underlying gastroesophageal reflux disease. COMMENTS AND RECOMMENDATIONS: 1. Would increase ambulation. 2. The patient indicates she wants to explore the possibility of alternative living arrangements. Perhaps, the care managers could assist with that. 3. I spoke with the patient about the possible need for BiPAP or Trilogy. She is not interested at present. Apparently, she felt that she did not tolerate the BiPAP well, although some of the notes indicate otherwise. I explained to her the relationship with the high CO2 levels and the fact that these devices may assist with that. 4. Would continue the patient with her usual inhalers for home. 5. I did encourage her to use her nebulizer at home at least morning and night time. This may help with her secretion clearance which she acknowledges and it may help with her CO2 elevation somewhat. 6. Should keep oxygen saturations between 88% and 92%. She does have a pulse oximeter at home. At the time of my exam, saturations were too high. 7. Would taper prednisone very slowly. 8. She apparently has a followup with Holden Chauhan PA-C in the pulmonary office in 1 week. 9. Consideration is given to a speech evaluation or swallowing study and I would suggest starting the patient on some maintenance reflux medication based upon her symptoms.
[2019-02-17] MEDS: AZITHROMYCIN 500 MG in DEXTROSE 5% 250 ML IV SCH (12:01)
--- NOTE | 2019-02-17 13:08 | Hospitalist Progress Note ---
Date of Service February 17, 2019 Assessment & Plan (1) Metabolic encephalopathy: This is a 73-year-old female with a PMH of severe COPD on 2L nasal cannula at baseline, chronic diastolic heart failure, HTN, HLD and multiple left-sided rib fractures recently who presents from home with altered mental status and dyspnea on exertion and was found to have acute on chronic respiratory failure, COPD exacerbation and left lower lobe pneumonia Acute Metabolic Encephalopathy In setting of COPD exacerbation, CO2 retention, pneumonia -CT head without any acute abnormalities -when seen on admission day once on telemetry rea, patient appears to have issues with memory and concentration such as taking a long time to recall who she follows with as outpatient -patient has been encouraged on BIPAP to bring down CO2 retention during this hospital stay -as of 02/15/19 given that patient's mental status appears improved, and patient allowed to be on nasal cannula alone (2) Acute and chronic respiratory failure: -continue to treat COPD exacerbation and community acquired pneumonia -as of 02/15/19 given that patient's mental status appears improved, and patient off BIPAP and allowed to be on nasal cannula alone -2 step test completed on 02/16/19 -02/17/19 patient will have portable oxygen of 1 liter/min at rest and 3 liters/min with exertion encourage patient to use her nebulizer at home at least morning and night time. This may help with her secretion clearance which she acknowledges and it may help with CO2 Should keep oxygen saturations between 88% and 92%; patient reports she has pulse oximetry device at home (Patient declined home BiPAP or Trilogy for home use as per pulmonary service discussions) (3) COPD exacerbation: acute COPD with exacerbation at baseline patient appears to be a chronic CO2 retainer -had transitioned nebulizer treatments from scheduled to prn for wheezing or shortness of breath -resume Spiriva for now -Continue home Symbicort. -have transitioned patient from IV Solu-Medrol to prednisone taper on 02/15/19 -discharge on prednisone 20 mg daily for 5 more days (4) Community acquired pneumonia: admission CXR with evidence of patchy parenchymal base in left inferior base -was Started on azithromycin and ceftriaxone for antibiotic coverage on admission -blood cultures from 02/13/19 with no growth to date -Lactic acidosis elevated lactic acid 3.1 on 02/15/19 may be from nebulizer treatments; have stopped the scheduled nebulizer treatments and given IV fluids , and lactic acid downtrended do not believe that the elevated lactic acid level is a marker for sepsis as the 02/13/19 blood cultures with no growth to date and patient has already been on respiratory IV antibiotics Repeat CXR on 02/16/19 "PA and lateral chest radiographs are compared to study dated 02/13/2019 and correlated with chest CT dated 12/14/2018. The heart is enlarged and there is atherosclerotic calcification of the thoracic aorta. The pulmonary vasculature is noncongested. Chronic interstitial thickening is similar to previous. Streaky airspace opacities are again seen in the lower lungs. Trace pleural effusions are identified. There is no pneumothorax. The skeletal structures are osteopenic. Degenerative change and hyperkyphosis are noted in the thoracic spine. There are thoracic compression deformities. There are healed left-sided rib fractures." patient has been on IV ceftriaxone and IV azithromycin from admission to 02/17/19 discharge with prescription of Amoxicillin clavulanate 875mg BID and azithromycin 250 mg daily for 5 more days (5) Multiple fractures of ribs of left side: History of Nondisplaced fractures left fifth sixth seventh and eighth ribs in December 2018 admission CXR on 02/13/19 does not identify acute fractures and the CXR on 02/16/19 confirms that the fractures have healed -Continue Tylenol, tramadol as needed for pain control (6) Hypertension: -Continue home losartan -Continue home oral Lasix 20 mg daily (7) Chronic diastolic heart failure: Appears euvolemic -No evidence of congestive heart failure on CXR -Most recent echo from November 2017 with concentric LVH, preserved EF of 58% and grade 1 diastolic dysfunction -Continue home oral Lasix 20 mg daily -Patient tolerated increased metoprolol succinate for previously seen tachycardia on telemetry -discharge on increased metoprolol succinate 50 mg daily (8) Dyslipidemia: Continue atorvastatin (9) Fibromyalgia: Tylenol, tramadol as needed DVT Ppx: SQ Lovenox Code status: FULL Discharge Diagnosis acute Metabolic encephalopathy, Acute and chronic respiratory failure, COPD exacerbation, community acquired pneumonia, Hypertension Discharge Instructions Patient discharged on prednisone 20 mg daily for 5 days, pantoprazole 40 mg daily, increased metoprolol 50 mg daily, and Amoxicillin clavulanate 875mg BID and azithromycin 250 mg daily for 5 more days and prescriptions sent electronically to [facility] [address], [place] [address] patient will have oxygen of 1 liter/min at rest and 3 liters/min with exertion encourage patient to use her nebulizer at home at least morning and night time. This may help with her secretion clearance which she acknowledges and it may help with CO2 Should keep oxygen saturations between 88% and 92%; patient reports she has pulse oximetry device at home 02/21/2019 12:40 PM Provider Russ Moon MD Department Family [facility] 02/24/2019 10:30 AM Provider Nara Shelby RN Department [facility] Patient should follow up with [facility] Pulmonary clinic as previously scheduled for 02/26/19 03/03/2019 10:30 AM Provider Nara Shelby RN Department [facility] Subjective Patient doing well with exertion while on supplementary oxygen. denies chest pain. breathing comfortably. no headache. no lightheadedness. no vomiting. discharge plans discussed Physical Exam Constitutional: cooperative Eyes: PERRL, conjunctivae normal, anicteric sclerae EOM intact bilaterally ENMT: external ear and nose normal, oropharynx normal Neck: trachea midline, no thyromegaly Cardiovascular: Rate/Rhythm: regular rate and regular rhythm Gastrointestinal (Abdomen): normal bowel sounds, soft, nontender, no hepatosplenomegaly Musculoskeletal: Head/Neck/Chest: normocephalic and head atraumatic Neurologic: PERRL, EOMI, accommodation nl, no face palsy, no dysarthria Psychiatric: A+Ox3, euthymic affect Orientation: alert Eye Contact: good eye contact Results & Data Vital Signs (Past 12 Hours) Vital Signs Temp Pulse Pulse Resp BP BP Pulse Ox 02/17/19 11:42 36.8 C 84 19 162/80 H 98 02/17/19 10:27 36.7 C 97 H 19 149/73 H 145/81 H 96 02/17/19 08:46 77 02/17/19 07:42 36.7 C 97 H 19 149/73 H 96 02/17/19 03:50 36.8 C 75 18 145/81 H 96 (1) Community acquired pneumonia Laterality: left Lung location: lower lobe of lung Qualified Code(s): J18.1 - Lobar pneumonia, unspecified organism (2) Hypertension Hypertension type: unspecified Qualified Code(s): I10 - Essential (primary) hypertension
[2019-02-17] MEDS ORDERED: PANTOprazole 40 MG TAB PO SCH (13:15)
--- NOTE | 2019-02-17 13:21 | Discharge Summary ---
Date of Service February 17, 2019 Admission HPI Per Admitting Provider This is a 73-year-old female with a PMH of severe COPD on 2L nasal cannula at baseline, chronic diastolic heart failure, HTN, HLD and multiple left-sided rib fractures recently who presents from home with altered mental status and dyspnea on exertion. Patient was recently admitted in December for COPD exacerbation and discharged to [facility]. Returned home from [facility] on February 06 with home health and [facility] at home program. Was evaluated by nursing staff today and was found to be confused with bilateral upper extremity shaking. Patient also endorses confusion, intermittent dry cough, wheezing and chills since yesterday. Decreased p.o. intake for the past 2 days. Was brought in by EMS for further evaluation. Found to be hypertensive at 171/90. CO2 elevated at 46 (elevated at baseline 35- 40). CT head without acute change. CXR with evidence of infiltrate at left base. Given duoneb breathing treatment and started on Rocephin and Azithromycin. Denies fever, lightheadedness, headache, chest pain, palpitations, nausea, vomiting, abdominal pain, dysuria, diarrhea or constipation. Admission Exam Per Admitting Provider General Appearance: WD/WN, no apparent distress, morbidly obese, able to speak in sentences, BUE shakiness Head: normocephalic, atraumatic Eyes: normal inspection, PERRL, EOMI ENT: hearing grossly normal, pharynx normal (moist mucous membranes) Neck: supple, no JVD, no adenopathy Respiratory/Chest: Decreased air movement bilaterally, scattered wheezes. No rales or rhonchi. Saturating at 100% on 3 L nasal cannula. No accessory muscle use. Cardiovascular: Tachycardic, regular rhythm, no murmur, normal peripheral pulses, trace bilateral lower extremity edema Abdomen/GI: normal bowel sounds, soft, non-tender to palpation Extremities/Musculoskelatal: normal inspection, no calf tenderness, normal capillary refill, no pedal edema Neurologic/Psych: alert, normal mood/affect, oriented x 2, thinks it is 1990 Skin: normal color, warm/dry Principal Diagnosis acute Metabolic encephalopathy, Acute and chronic respiratory failure, COPD ex acerbation, community acquired pneumonia, Hypertension Discharge Exam Constitutional cooperative Eyes PERRL, conjunctivae normal, anicteric sclerae EOM intact bilaterally ENMT external ear and nose normal, oropharynx normal Neck trachea midline, no thyromegaly Respiratory normal respiratory effort, lungs clear to auscultation Cardiovascular Rate/Rhythm: regular rate and regular rhythm Gastrointestinal (Abdomen) normal bowel sounds, soft, nontender, no hepatosplenomegaly Musculoskeletal Head/Neck/Chest: normocephalic and head atraumatic Neurologic PERRL, EOMI, accommodation nl, no face palsy, no dysarthria Psychiatric A+Ox3, euthymic affect Orientation: alert Eye Contact: good eye contact Discharge Data Allergies Allergy/AdvReac Type Severity Reaction Status Date / Time naproxen AdvReac Mild GI SYMPTOMS Verified 02/13/19 11:13 Consultations 02/13/19 14:02 ED Decision to Admit Stat 02/13/19 16:40 Consult Case Management - Discharge Planning Routine 02/14/19 07:59 Consult Pulmonology Routine Ordered Studies 02/13/19 10:53 CT head/brain wo con Stat Hospital Course (1) Metabolic encephalopathy: This is a 73-year-old female with a PMH of severe COPD on 2L nasal cannula at baseline, chronic diastolic heart failure, HTN, HLD and multiple left-sided rib fractures recently who presents from home with altered mental status and dyspnea on exertion and was found to have acute on chronic respiratory failure, COPD exacerbation and left lower lobe pneumonia Acute Metabolic Encephalopathy In setting of COPD exacerbation, CO2 retention, pneumonia -CT head without any acute abnormalities -when seen on admission day once on telemetry rea, patient appears to have issues with memory and concentration such as taking a long time to recall who she follows with as outpatient -patient has been encouraged on BIPAP to bring down CO2 retention during this hospital stay -as of 02/15/19 given that patient's mental status appears improved, and patient allowed to be on nasal cannula alone (2) Acute and chronic respiratory failure: -continue to treat COPD exacerbation and community acquired pneumonia -as of 02/15/19 given that patient's mental status appears improved, and patient off BIPAP and allowed to be on nasal cannula alone -2 step test completed on 02/16/19 -02/17/19 patient will have portable oxygen of 1 liter/min at rest and 3 liters/min with exertion encourage patient to use her nebulizer at home at least morning and night time. This may help with her secretion clearance which she acknowledges and it may help with CO2 Should keep oxygen saturations between 88% and 92%; patient reports she has pulse oximetry device at home (Patient declined home BiPAP or Trilogy for home use as per pulmonary service discussions) (3) COPD exacerbation: acute COPD with exacerbation at baseline patient appears to be a chronic CO2 retainer -had transitioned nebulizer treatments from scheduled to prn for wheezing or shortness of breath -resume Spiriva for now -Continue home Symbicort. -have transitioned patient from IV Solu-Medrol to prednisone taper on 02/15/19 -discharge on prednisone 20 mg daily for 5 more days (4) Community acquired pneumonia: admission CXR with evidence of patchy parenchymal base in left inferior base -was Started on azithromycin and ceftriaxone for antibiotic coverage on admission -blood cultures from 02/13/19 with no growth to date -Lactic acidosis elevated lactic acid 3.1 on 02/15/19 may be from nebulizer treatments; have stopped the scheduled nebulizer treatments and given IV fluids , and lactic acid downtrended do not believe that the elevated lactic acid level is a marker for sepsis as the 02/13/19 blood cultures with no growth to date and patient has already been on respiratory IV antibiotics Repeat CXR on 02/16/19 "PA and lateral chest radiographs are compared to study dated 02/13/2019 and correlated with chest CT dated 12/14/2018. The heart is enlarged and there is atherosclerotic calcification of the thoracic aorta. The pulmonary vasculature is noncongested. Chronic interstitial thickening is similar to previous. Streaky airspace opacities are again seen in the lower lungs. Trace pleural effusions are identified. There is no pneumothorax. The skeletal structures are osteopenic. Degenerative change and hyperkyphosis are noted in the thoracic spine. There are thoracic compression deformities. There are healed left-sided rib fractures." patient has been on IV ceftriaxone and IV azithromycin from admission to 02/17/19 discharge with prescription of Amoxicillin clavulanate 875mg BID and azithromycin 250 mg daily for 5 more days (5) Multiple fractures of ribs of left side: History of Nondisplaced fractures left fifth sixth seventh and eighth ribs in December 2018 admission CXR on 02/13/19 does not identify acute fractures and the CXR on 02/16/19 confirms that the fractures have healed -Continue Tylenol, tramadol as needed for pain control (6) Hypertension: -Continue home losartan -Continue home oral Lasix 20 mg daily (7) Chronic diastolic heart failure: Appears euvolemic -No evidence of congestive heart failure on CXR -Most recent echo from November 2017 with concentric LVH, preserved EF of 58% and grade 1 diastolic dysfunction -Continue home oral Lasix 20 mg daily -Patient tolerated increased metoprolol succinate for previously seen tachycardia on telemetry -discharge on increased metoprolol succinate 50 mg daily (8) Dyslipidemia: Continue atorvastatin (9) Fibromyalgia: Tylenol, tramadol as needed DVT Ppx: SQ Lovenox Code status: FULL Discharge Diagnosis acute Metabolic encephalopathy, Acute and chronic respiratory failure, COPD exacerbation, community acquired pneumonia, Hypertension Discharge Instructions Patient discharged on prednisone 20 mg daily for 5 days, pantoprazole 40 mg daily, increased metoprolol 50 mg daily, and Amoxicillin clavulanate 875mg BID and azithromycin 250 mg daily for 5 more days and prescriptions sent electronically to [facility] [address], [place] [address] patient will have oxygen of 1 liter/min at rest and 3 liters/min with exertion encourage patient to use her nebulizer at home at least morning and night time. This may help with her secretion clearance which she acknowledges and it may help with CO2 Should keep oxygen saturations between 88% and 92%; patient reports she has pulse oximetry device at home 02/21/2019 12:40 PM Provider Russ Moon MD Department Family Practice [facility] 02/24/2019 10:30 AM Provider Nara Shelby RN Department [facility] Patient should follow up with [facility] Pulmonary clinic as previously scheduled for 02/26/19 03/03/2019 10:30 AM Provider Nara Shelby RN Department [facility] Total Time Total Time Spent Total Time Spent (In Minutes): 40 minutes Total Time Includes: Examination of the Patient, Discharge Planning, Medication Reconciliation and Communication With Other Providers Discharge Plan Discharge Items Patient Disposition: Home - Home Health Services Reason For Visit: AMS,COPD EXACERBATION,LLL PNA Discharge Diagnosis: acute Metabolic encephalopathy, Acute and chronic respiratory failure, COPD exacerbation, community acquired pneumonia, Hypertension Condition: Good Discharge Goals: Improve disease control Activity: Resume your previous activity Non-emergency contact: Primary Care Provider and [employer] Call non-emergency contact if: you have any medication questions Follow-up/Referrals: Russ Moon MD [Primary Care Provider] - Diet: Heart Healthy Addtl Provider Instructions: Patient discharged on prednisone 20 mg daily for 5 days, pantoprazole 40 mg daily, increased metoprolol 50 mg daily, and Amoxicillin clavulanate 875mg BID and azithromycin 250 mg daily for 5 more days and prescriptions sent electronically to [facility] [address], [place] [address] patient will have portable oxygen of 1 liter/min at rest and 3 liters/min with exertion encourage patient to use her nebulizer at home at least morning and night time. This may help with her secretion clearance which she acknowledges and it may help with CO2 Should keep oxygen saturations between 88% and 92%; patient reports she has pulse oximetry device at home 02/21/2019 12:40 PM Provider Russ Moon MD Department Family [facility] 02/24/2019 10:30 AM Provider Nara Shelby RN Department [facility] Patient should follow up with [facility] Pulmonary clinic as previously scheduled for 02/26/19 03/03/2019 10:30 AM Provider Nara Shelby RN Department [facility] Prescriptions: New azithromycin [Zithromax] 250 mg Tablet 250 mg PO QAM 5 Days Qty: 5 RF: 0 metoprolol succinate 50 mg Tablet Extended Release 24 Hr 50 mg PO QAM 30 Days Qty: 30 RF: 0 prednisone 20 mg Tablet 20 mg PO DAILY 5 Days Qty: 5 RF: 0 pantoprazole 40 mg Tablet,Delayed Release (Dr/Ec) 40 mg PO QAM 30 Days Qty: 30 RF: 0 amoxicillin-pot clavulanate 875-125 mg Tablet 1 tab PO BIDM 5 Days Qty: 10 RF: 0 Continued magnesium oxide 400 mg magnesium Capsule 400 mg PO DAILY RF: 0 sennosides [Senokot] 8.6 mg tablet 8.6 mg PO HS PRN (Reason: Constipation) RF: 0 tramadol 50 mg tablet 50 mg PO QID PRN (Reason: Pain) RF: 0 atorvastatin 40 mg Tablet 40 mg PO QAM RF: 0 ipratropium-albuterol 0.5 mg-3 mg(2.5 mg base)/3 mL Solution For Nebulization 3 ml INHALATION Q4H PRN (Reason: Shortness Of Breath Or Wheezing) RF: 0 aspirin 81 mg Tablet,Delayed Release (Dr/Ec) 81 mg PO QAM RF: 0 acetaminophen [Tylenol Extra Strength] 500 mg Tablet 1,000 mg PO Q6H PRN (Reason: Pain) RF: 0 calcium carbonate [Tums] 200 mg calcium (500 mg) Tablet,Chewable 200 mg PO BID PRN (Reason: Indigestion) RF: 0 losartan 25 mg Tablet 25 mg PO QAM RF: 0 furosemide [Lasix] 20 mg Tablet 20 mg PO DAILY RF: 0 albuterol sulfate [Ventolin HFA] 90 mcg/actuation Hfa Aerosol Inhaler 2 puff INHALATION Q4H PRN (Reason: Shortness Of Breath Or Wheezing) RF: 0 Spiriva with HandiHaler 18 mcg Capsule, W/Inhalation Device 1 cap INHALATION QAM RF: 0 Symbicort 160-4.5 mcg/actuation Hfa Aerosol Inhaler 2 puff INHALATION BID RF: 0 diclofenac sodium [Voltaren] 1 % Gel 2 g TOPICAL QID PRN (Reason: Pain) RF: 0 docusate sodium [Colace] 100 mg capsule 100 mg PO BID Qty: 60 RF: 0 Discontinued metoprolol succinate [Toprol XL] 25 mg Tablet Extended Release 24 Hr 25 mg PO QAM RF: 0 Stand-Alone Forms: [facility] Discharge Orders: Discharge Order (Routine); Ordered 02/17/19 Ordered By: Glenn Madison Admission Data Admit Date/Time: 02/13/19 15:07 Attending Provider: Glenn Madison Admit Provider: Tip Vasquez Primary Care Provider: Russ Moon Other Providers: Tip Vasquez ; Agustin Puente Service: Telemetry Other Interventions: Discharge Summary Assessment (RN) Last Done: 02/17/19 10:27
[2019-02-17] MEDS ORDERED: AMOXICILLIN/CLAVULANATE 875 MG TAB PO SCH (17:00)
[2019-02-18] MEDS ORDERED: AZITHROMYCIN 250 MG TAB PO SCH (09:00)
== END 2019-02-17 13:53 | disposition home health service (06) | DRG 193 ==
LOC: ED 10:17 → 2S 15:07

== ENCOUNTER 2019-04-22 13:31 | Inpatient (IN) ==
[2019-04-22] MEDS ORDERED: ALBUT/IPRATROP 3MG/0.5MG NEB 3 ML VIAL INH STA (13:45)
[2019-04-22] MEDS ORDERED: methylPREDNISolone 125 MG/2 ML VIAL IV STA (13:55)
--- NOTE | 2019-04-22 14:05 | Emergency Department Note ---
ED Visit Note I assisted Dr. Murcia in the care of this patient. Please see attending note for details. . Resident Activity Tracking Resident Involvement: Resident Care Provided Care Provided: [facility] Medicine
[2019-04-22] MEDS ORDERED: SODIUM CHLORIDE 0.9% 500 ML IV ONE (14:07)
[2019-04-22 14:09] LABS: Basophils # (auto) 0.02 K/uL (0-0.2); Basophils % (auto) 0.4 %; Eosinophils % (auto) 3.6 %; Hematocrit (blood only) 43.3 % (37-47); Hemoglobin 13.1 g/dL (12.0-16.0); Lymphocytes # (auto) 0.85 K/uL (1.2-3.4); Lymphocytes % (auto) 15.2 %; Mean Corpuscular Hgb Conc 30.3 g/dL (32-36); Mean Corpuscular Volume 95.6 fL (80-100); Mean Platelet Volume 11.9 fL (7.4-10.4); Monocytes # (auto) 0.46 K/uL (0.11-0.59); Monocytes % (auto) 8.2 %; Neutrophils # (auto) 4.06 K/uL (1.4-6.5); Neutrophils % (auto) 72.6 %; Platelet Count 217 K/uL (130-400); RDW Coefficient of Variation 13.7 % (11.5-14.5); RDW Standard Deviation 48.1 fL (36.4-46.3); Red Blood Count 4.53 M/uL (4.2-5.4); White Blood Count 5.59 K/uL (4.8-10.8)
[2019-04-22 14:21] LABS: INR 1.1 (0.9-1.1); Partial Thromboplastin Time 25.9 Seconds (21.0-31.0); Prothrombin Time 10.8 Seconds (9.0-12.0)
[2019-04-22 14:26] LABS: Alanine Aminotransferase 18 U/L (12-78); Albumin Level 3.7 gm/dl (3.4-5.0); BUN Creatinine Ratio 26.3 (10-20); Blood Urea Nitrogen 15 mg/dl (7-18); Calcium 9.3 mg/dl (8.5-10.1); Carbon Dioxide 41 mmol/L (21-32); Chloride 95 mmol/L (98-107); Creatinine Clr Calc Pharmacy 86.4 ml/min; Est GFR (African American) 105.7; Est GFR (Non-African American) 91.2; Glucose 144 mg/dl (70-99); Sodium 140 mmol/L (136-145)
[2019-04-22 14:32] LABS: Alkaline Phosphatase 79 U/L (45-117); Bilirubin,Total 0.8 mg/dl (0.2-1); Globulin 3.8 gm/dl (2.5-4.0); Total Protein 7.5 gm/dl (6.4-8.2); Troponin I < 0.015 ng/ml (0-0.045)
[2019-04-22] MEDS: MAGNESIUM SULFATE / D5W 1 GM/100 ML BAG IV SCH ×2 (14:33→15:28)
[2019-04-22 14:46] LABS: Base Excess VBG 15.5 mEq/L; Oxygen Saturation VBG 66.4 %; pH VBG 7.28 (7.36-7.41)
[2019-04-22 14:51] LABS: Potassium 4.2 mmol/L (3.5-5.1)
[2019-04-22 14:56] LABS: Magnesium 2.3 mg/dl (1.8-2.4)
[2019-04-22 15:08] LABS: Influenza A virus by PCR Neg for Influ A (Neg); Influenza B virus by PCR Neg for Influ B (Neg)
--- NOTE | 2019-04-22 15:19 | XRay Report ---
XR chest 1V portable CLINICAL HISTORY: Dyspnea COMPARISON STUDY: Chest CT December 14, 2018. Chest radiograph February 16, 2019. FINDINGS: Cardiomediastinal silhouette is stable. There is no evidence for pulmonary edema. There is no pneumothorax or pleural effusion. There is mild left lower lung opacity. IMPRESSION: Mild left lower lung opacity which may reflect pneumonia or atelectasis. Radiographic fo llow-up is recommended. Electronically signed by: Jas Franco M.D. 04/22/2019 3:17 PM
--- NOTE | 2019-04-22 16:47 | History & Physical Report ---
Date of Service April 22, 2019 Assessment & Plan (1) Acute and chronic respiratory failure: (2) COPD exacerbation: Acute on chronic hypercapnic respiratory failure Pt with hx COPD on chronic oxygen 2L and 3L via NC HS presented with increased SOB and lethargy over past 2 days. Unclear if increased sputum production. Denies fever/chills. Had bronchoscopy on 04/18/[address] Chowdhury which showed chronic mucopurulent bronchitis with mucoid impaction, dynamic airway collapse involving distal third of trachea and left tracheobronchial tree Afebrile, P: 97-155, R: 28, BP: 149/83, 98% on 4L NC initially and then placed on bipap. WBC: 5.5, CO2: 41, VB.28, CO2: 104, O2: 34. Negative influenza swab. CXR: Mild left lower lung opacity which may reflect pneumonia or atelectasis In ER pt was given solumedrol 125mg IV, mag sulfate 1gm IV, an hour long albuterol neb, 500ml NSS and was placed on Bipap secondary to hypercapnia. -Continue bipap -Repeat ABG since on bipap for 2 hours -NPO while on bipap -Solumedrol 40mg Q8H -Levaquin -Duonebs -Continue Symbicort -Hold home Spiriva since on Duonebs -Home O2 sat target is 88-92% -Pulmonology consult (3) Hypertension: In ER BP 149/83, 116/64 -Continue metoprolol, losartan (4) Chronic diastolic heart failure: Hx grade 1 diastolic failure 01/2019 echo: EF: 55-60%, moderate concentric LVH Appears euvolemic -Continue lasix (5) Dyslipidemia: -Continue atorvastatin (6) Fibromyalgia: -Continue Tylenol prn -Hold tramadol at this time and reassess for mental status changes and respiratory status improvement DVT Prophylaxis -Lovenox SQ Full Code as per discussion with pt Follows with Dr Moon for routine care Pt was seen and care coordinated with Dr Vasquez. See addendum History of Present Illness Chief Complaint: SOB Primary Care Provider: Russ Moon MD PT is 73 y/o F with PMH chronic respiratory failure, COPD on 2L during day and 3L HS, chronic diastolic heart failure, HTN, HLD presented to ER with c/o increased SOB. History difficult to obtain secondary to pt being on Bipap. Pt states yesterday started with increased SOB. Reports productive cough, however unclear from pt if this is increased or chronic. Reports some nasal congestion recently also. Pt states has been increasingly sleepy over the past couple of days. Reports using her O2. States using neb treatments with minimal relief. Hx hospitalization 02/13/19-02/17/19 for acute on chronic respiratory failure, COPD exacerbation, and possible pneumonia and was treated with Bipap initially, Duonebs, Rocephin, Zithromax. Denies fever/chills, diaphoresis, N/V/D/C, LEACH, dizziness, syncope, vision changes, neck pain, CP, sore throat, choking, otalgia, abdominal pain, paresthesias, extremity edema, rashes, urinary symptoms. In ER pt was given solumedrol 125mg IV, mag sulfate 1gm IV, hour long albuterol neb, 500ml NSS and was placed on Bipap secondary to hypercapnia. Allergies Allergy/AdvReac Type Severity Reaction Status Date / Time duloxetine [From Cymbalta] Allergy Rash Verified 04/22/19 15:08 naproxen AdvReac Mild GI Verified 04/22/19 15:08 SYMPTOMS-PT DENIES Home Medications Home Medications Medication Instructions Recorded Confirmed Type Spiriva with HandiHaler 1 cap INHALATION QAM 12/14/18 04/22/19 History Symbicort 2 puff INHALATION BID 12/14/18 04/22/19 History acetaminophen [Tylenol Extra 1,000 mg PO Q6H PRN 12/14/18 04/22/19 History Strength] albuterol sulfate [Ventolin HFA] 2 puff INHALATION Q4H PRN 12/14/18 04/22/19 History atorvastatin 40 mg PO QAM 12/14/18 04/22/19 History calcium carbonate [Tums] 200 mg PO BID PRN 12/14/18 04/22/19 History diclofenac sodium [Voltaren] 2 g TOPICAL QID PRN 12/14/18 04/22/19 History losartan 25 mg PO QAM 12/14/18 04/22/19 History magnesium oxide 400 mg PO QAM 02/13/19 04/22/19 History tramadol 50 mg PO QID PRN 02/13/19 04/22/19 History aspirin [Aspir-81] 81 mg PO QAM 03/31/19 04/22/19 History docusate sodium [Colace] 100 mg PO BID PRN 03/31/19 04/22/19 History ranitidine HCl 150 mg PO BID 03/31/19 04/22/19 History furosemide [Lasix] 20 mg PO DAILY 04/22/19 04/22/19 History ipratropium-albuterol 3 ml INHALATION QID 04/22/19 04/22/19 History metoprolol succinate 50 mg PO DAILY 04/22/19 04/22/19 History pantoprazole 40 mg PO DAILY 04/22/19 04/22/19 History Past Med/Surg History Medical History Multiple fractures of ribs of left side (Resolved) Chronic diastolic heart failure (Chronic) Chronic respiratory failure with hypoxia, on home O2 therapy (Chronic) OXYGEN 2L/MIN DAYTIME/3L/MIN HS VIA NC Hypertension (Chronic) COPD (chronic obstructive pulmonary disease) (Chronic) On 07/28/15 14:30 Verenice Guillen wrote "severity to be determined " Dyslipidemia (Chronic) GERD (gastroesophageal reflux disease) (Chronic) Fibromyalgia (Chronic) BCC (basal cell carcinoma of skin) (Chronic) "s/p MOHS surgery" Osteoporosis (Chronic) Sinus tachycardia (Chronic) SOB (shortness of breath) on exertion Surgical History Status post appendectomy (Chronic) Status post hysterectomy (Chronic) Status post repair of ventral hernia (Chronic) Hx of cataract surgery (Chronic) S/P Mohs surgery for basal cell carcinoma (Chronic) Family History Grandfather (Maternal) Family hx of colon cancer Other Kidney disease Lung disease Social History Preferred Language: Spanish Communication Ability: Effective Beliefs That Will Affect Care: None marital status: / Current Living Situation: Alone current occupational status: retired Feels Safe at Home: Yes Smoking Status: Former smoker Second Hand Exposure: No Hx Alcohol Use: No Hx Substance Use: No Review of Systems Review of Systems: All systems reviewed & are unremarkable except as noted in HPI & below Physical Exam Physical Exam: General: mild respiratory distress is on Bipap, obese Head: normocephalic, atraumatic Eyes: PERRL, EOM's intact, conjunctiva non-injected, anicteric ENT: normal inspection external ears, nose, mucous membranes moist Neck: supple, trachea midline Lungs: On bipap with RR: 24, O2: 96%, lung sounds diminished throughout with wheezing CV: RRR, no murmur, no pretibial edema Abd: normal BS, soft, non-tender Ext: no cyanosis, no calf tenderness Neuro: Alert, oriented to person, place, month and year, initially didn't know day but then able to state correct day, no focal deficits noted, normal affect Skin: warm, dry Results & Data Vital Signs (Past 12 Hours) Vital Signs Temp Pulse Pulse Resp BP BP Pulse Ox 04/22/19 15:31 115 H 24 116/64 98 04/22/19 14:41 88 26 H 99 04/22/19 14:30 88 26 H 99 04/22/19 14:07 98 04/22/19 14:06 98 04/22/19 13:47 36.5 C 97 H 28 H 149/83 H 98 04/22/19 13:27 94 Laboratory Results Short CBC 04/22/19 Range/Units 13:45 WBC 5.59 (4.8-10.8) K/uL Hgb 13.1 (12.0-16.0) g/dL Hct 43.3 (37-47) % Plt Count 217 (130-400) K/uL BMP 04/22/19 04/22/19 13:45 14:30 Sodium 140 Potassium 4.2 Chloride 95 L Carbon Dioxide 41 H* BUN 15 Creatinine 0.56 L Glucose 144 H Calcium 9.3 Cardiac Enzymes 04/22/19 04/22/19 Range/Units 13:45 13:45 Troponin I < 0.015 Cancelled (0-0.045) ng/ml Liver Function 04/22/19 04/22/19 Range/Units 13:45 14:30 Total Bilirubin 0.8 (0.2-1) mg/dl AST 12 L (15-37) U/L ALT 18 (12-78) U/L Alkaline Phosphatase 79 (45-117) U/L Albumin 3.7 (3.4-5.0) gm/dl Diagnostic Findings CXR: IMPRESSION: Mild left lower lung opacity which may reflect pneumonia or atelectasis. Radiographic follow-up is recommended. ECG Rate (beats per minute): 94 Rhythm: sinus rhythm Supervising Physician Co-Signing Physician Notes Patient is a 73-year-old female with history of advanced COPD on chronic oxygen dependency, chronic respiratory failure, diastolic heart failure and other problems presents with history of worsening shortness of breath associated with productive cough and increased sleepiness since 2 days duration. Patient recently had bronchoscopy by Dr. Chowdhury and was found to have chronic mucopurulent bronchitis with mucoid impaction and endoscopic dynamic airway collapse involving the distal third of the trachea and right and left tracheobronchial tree. Patient is placed on BiPAP while in ED. ABG is consistent with chronic respiratory acidosis and metabolic alkalosis. Chest x- ray showed mild left lung opacity suggestive of possible pneumonia or atelectasis. On exam patient is chronically appearing, mild distress while on BiPAP, normocephalic atraumatic, lungs-decreased breath sounds, expiratory wheezes, S1-S2, no murmur,+ tachycardia, abdomen soft nontender, grossly no focal neurological deficits, no pedal edema. Patient is admitted for management of acute on chronic hypercapnic respiratory failure secondary to COPD exacerbation possible pneumonia. Plan to continue BiPAP. Agree with IV Solu- Medrol, bronchodilators, oxygen support. Pulmonology consulted. Aspiration precautions. Hyperglycemia noted on labs. Check A1c to rule out diabetes. I personally reviewed the record. Patient is interviewed and examined at bedside. Patient's care is coordinated with Felicia Gutierrez PA-C. Please refer to the documentation above for details of patient's presentation and for discussion of other issues. (1) Hypertension Hypertension type: unspecified Qualified Code(s): I10 - Essential (primary) hypertension
[2019-04-22 17:11] LABS: Base Excess ABG 13.2 mEq/L (-9-1.8); HCO3 ABG 44 mmol/L (19-24); PCO2 ABG 94 mmHg (35-46); PO2 ABG 105 mm/Hg (80-95); pH ABG 7.29 (7.35-7.45)
[2019-04-22 17:16] LABS: Allen Test Pos (Pos)
[2019-04-22] MEDS ORDERED: DOCUSATE SODIUM 100 MG CAP PO PRN (17:46)
[2019-04-22] MEDS ORDERED: MICONAZOLE NITRATE POWDER 43 GM EXT PRN (17:58)
[2019-04-22] MEDS: LEVOFLOXACIN/D5W 750 MG/150 ML BAG IV SCH (19:12)
[2019-04-22] MEDS: ALBUT/IPRATROP 3MG/0.5MG NEB 3 ML VIAL NEB SCH (19:19)
--- NOTE | 2019-04-22 19:26 | Emergency Department Note ---
Entered by Teodora Angel acting as a scribe for Thien Murcia MD History of Present Illness General Chief complaint: Respiratory Problems Time Seen by Provider: 04/22/19 13:41 Source: patient History of Present Illness Provider complaint: shortness of breath Onset (ago): day(s) 2 Pain Consistency: + other (episode) Maximum Pain Intensity: 8 Quality: + other (shortnes of breath) Exacerbated By: + other (lying down) Associated symptoms: + denies other symptoms (hemoptysis, history of blood clots), + cough (productive cough) and + other (fatigue on exertion, recent antibiotic use, runny nose) The patient is a 73 year old white female w/ PMHx of COPD, CHF, HTN, and HLD who presents to the ED w/ CC of an episode of shortness of breath beginning 2 days ago. The patient notes that the shortness of breath is worsened when lying down. The patient states that she is experiencing fatigue upon exertion. The patient states that she has a runny nose and productive cough. The patient denies hemoptysis and history of blood clots. The patient notes that she has recently been on antibiotics but is unsure of when. Home Medications Home Medications Medication Instructions Recorded Confirmed Type Spiriva with HandiHaler 1 cap INHALATION QAM 12/14/18 04/22/19 History Symbicort 2 puff INHALATION BID 12/14/18 04/22/19 History acetaminophen [Tylenol Extra 1,000 mg PO Q6H PRN 12/14/18 04/22/19 History Strength] albuterol sulfate [Ventolin HFA] 2 puff INHALATION Q4H PRN 12/14/18 04/22/19 History atorvastatin 40 mg PO QAM 12/14/18 04/22/19 History calcium carbonate [Tums] 200 mg PO BID PRN 12/14/18 04/22/19 History diclofenac sodium [Voltaren] 2 g TOPICAL QID PRN 12/14/18 04/22/19 History losartan 25 mg PO QAM 12/14/18 04/22/19 History magnesium oxide 400 mg PO QAM 02/13/19 04/22/19 History tramadol 50 mg PO QID PRN 02/13/19 04/22/19 History aspirin [Aspir-81] 81 mg PO QAM 03/31/19 04/22/19 History docusate sodium [Colace] 100 mg PO BID PRN 03/31/19 04/22/19 History ranitidine HCl 150 mg PO BID 03/31/19 04/22/19 History furosemide [Lasix] 20 mg PO DAILY 04/22/19 04/22/19 History ipratropium-albuterol 3 ml INHALATION QID 04/22/19 04/22/19 History metoprolol succinate 50 mg PO DAILY 04/22/19 04/22/19 History pantoprazole 40 mg PO DAILY 04/22/19 04/22/19 History Allergies Allergy/AdvReac Type Severity Reaction Status Date / Time duloxetine [From Cymbalta] Allergy Rash Verified 04/22/19 15:08 naproxen AdvReac Mild GI Verified 04/22/19 15:08 SYMPTOMS-PT DENIES Past Med/Surg History Medical History Multiple fractures of ribs of left side (Resolved) Chronic diastolic heart failure (Chronic) Chronic respiratory failure with hypoxia, on home O2 therapy (Chronic) OXYGEN 2L/MIN DAYTIME/3L/MIN HS VIA NC Hypertension (Chronic) COPD (chronic obstructive pulmonary disease) (Chronic) On 07/28/15 14:30 Verenice Guillen wrote "severity to be determined " Dyslipidemia (Chronic) GERD (gastroesophageal reflux disease) (Chronic) Fibromyalgia (Chronic) BCC (basal cell carcinoma of skin) (Chronic) "s/p MOHS surgery" Osteoporosis (Chronic) Sinus tachycardia (Chronic) SOB (shortness of breath) on exertion Surgical History Status post appendectomy (Chronic) Status post hysterectomy (Chronic) Status post repair of ventral hernia (Chronic) Hx of cataract surgery (Chronic) S/P Mohs surgery for basal cell carcinoma (Chronic) Family History Grandfather (Maternal) Family hx of colon cancer Other Kidney disease Lung disease Social History Preferred Language: Jordanian Communication Ability: Effective Beliefs That Will Affect Care: None marital status: / Current Living Situation: Alone current occupational status: retired Other Information That Helps Us Care for You: No Feels Safe at Home: Yes Safety Concerns: Feels Safe At This Time Smoking Status: Former smoker Tobacco Type: cigarettes Second Hand Exposure: No Hx Alcohol Use: No Hx Substance Use: No Review of Systems See HPI for pertinent positives & negatives. and A total of 10 systems reviewed and were otherwise negative Physical Exam Vital Signs Vital Signs - 24 hr 04/22/19 13:27 04/22/19 13:47 04/22/19 14:06 Temperature 36.5 C Temperature Source Oral Sepsis Recent Fever Within 48 Hours No Sepsis New/Unexplained Change in Mental Status No Sepsis Action Taken by Nursing No Action Required Pulse Rate 97 H Pulse Rate [Finger] Pulse Rhythm Regular Pulse Strength Normal Respiratory Rate 28 H Respiratory Effort / Characteristics Non-Labored Spontaneous Respiratory Depth Normal Respiratory Pattern Blood Pressure 149/83 H Blood Pressure [Left Arm] Blood Pressure Mean 105 Blood Pressure Mean [Left Arm] Blood Pressure Position Sitting Blood Pressure Position [Left Arm] Pulse Oximetry 94 98 98 Oxygen Delivery Method Room Air Nasal Cannula Nasal Cannula Oxygen Flow Rate 2 4 Fraction of Inspired Oxygen 04/22/19 14:07 04/22/19 14:30 04/22/19 14:41 Temperature Temperature Source Sepsis Recent Fever Within 48 Hours Sepsis New/Unexplained Change in Mental Status Sepsis Action Taken by Nursing Pulse Rate 88 Pulse Rate [Finger] 88 Pulse Rhythm Pulse Strength Respiratory Rate 26 H 26 H Respiratory Effort / Characteristics Spontaneous Short of Breath Spontaneous Short of Breath Respiratory Depth Normal Respiratory Pattern Tachypnea Blood Pressure Blood Pressure [Left Arm] Blood Pressure Mean Blood Pressure Mean [Left Arm] Blood Pressure Position Blood Pressure Position [Left Arm] Pulse Oximetry 98 99 99 Oxygen Delivery Method Nasal Cannula BiPAP Oxygen Flow Rate 3 Fraction of Inspired Oxygen 40 40 04/22/19 15:31 Temperature Temperature Source Sepsis Recent Fever Within 48 Hours Sepsis New/Unexplained Change in Mental Status Sepsis Action Taken by Nursing Pulse Rate Pulse Rate [Finger] 115 H Pulse Rhythm Pulse Strength Respiratory Rate 24 Respiratory Effort / Characteristics Non-Labored Spontaneous Respiratory Depth Respiratory Pattern Blood Pressure Blood Pressure [Left Arm] 116/64 Blood Pressure Mean Blood Pressure Mean [Left Arm] 81 Blood Pressure Position Blood Pressure Position [Left Arm] Lying Pulse Oximetry 98 Oxygen Delivery Method BiPAP Oxygen Flow Rate Fraction of Inspired Oxygen GENERAL: Moderate distress, well nourished. EYE EXAM: Normal conjunctiva. PERRL, no anisocoria and EOM's grossly intact w/o pain. OROPHARYNX: Moist mucous membranes. Grossly normal dentition. NECK: Supple, no nuchal rigidity, no adenopathy, non-tender. No signs of meningismus. LUNGS: Shallow breathing, scant wheezing throughout. Tachypnea noted. HEART: NSR, no MRG. ABDOMEN: Abdomen soft, non-tender, normo-active bowel sounds, no masses, no rebound or guarding. BACK: No CVA TTP. SKIN: No rashes and no bruising. UPPER EXTREMITIES: Upper extremities are grossly normal. LOWER EXTREMITIES: Negative Karen's sign. No pitting edema. No calf pain. NEURO EXAM: A&O x3, cranial nerves II-XII grossly intact, normal speech, moves all 4 extremities on command w/o issue. Course 1541: Past medical records reviewed. The patient was evaluated in room B7. A complete history and physical exam was performed. 1651: I discussed the patient's case with Dr. Vasquez- [facility] Hospitalist. He will manage the patient for further evaluation. Administered Medications Albuterol (Duoneb) 3 ml NEB QIDR UCHE Stop: 05/22/19 19:59 Last Admin: 04/22/19 19:19 Dose: 3 ml Documented by: [id number] Levofloxacin/Dextrose (Levaquin/D5w) 750 mg in 150 mls @ 100 mls/hr IV Q24H UCHE Stop: 04/29/19 18:29 Last Admin: 04/22/19 19:12 Dose: 100 mls/hr Documented by: [id number] Discontinued Medications Albuterol (Duoneb) 12 ml INH ONE STA Stop: 04/22/19 13:46 Last Admin: 04/22/19 14:36 Dose: 12 ml Documented by: [id number] Magnesium Sulfate/Dextrose (Magnesium Sulfate / D5w) 1 gm in 100 mls @ 100 mls/hr IV Q1H UCHE Stop: 04/22/19 15:59 Last Infusion: 04/22/19 16:30 Dose: 0 mls/hr Documented by: [id number] Admin: 04/22/19 15:28 Dose: 100 mls/hr Documented by: [id number] Infusion: 04/22/19 15:28 Dose: 100 mls/hr Documented by: [id number] Admin: 04/22/19 14:33 Dose: 100 mls/hr Documented by: [id number] Sodium Chloride (Nss) 500 mls @ 999 mls/hr IV .Q31M ONE Stop: 04/22/19 14:37 Last Infusion: 04/22/19 15:28 Dose: 0 mls/hr Documented by: [id number] Admin: 04/22/19 14:34 Dose: 999 mls/hr Documented by: [id number] Methylprednisolone (Solumedrol) 125 mg IV NOW STA Stop: 04/22/19 13:56 Last Admin: 04/22/19 14:34 Dose: 125 mg Documented by: [id number] Medical Decision Making Medical Records Attestation: I reviewed the patient's medical records. Home Medications Current Medication List: was personally reviewed by me Laboratory Data Attestation: I reviewed the patient's lab results. Result diagrams: 04/22/19 13:45 04/22/19 14:30 Lab Results 04/22/19 04/22/19 04/22/19 Range/Units 13:45 13:45 13:45 WBC 5.59 (4.8-10.8) K/uL RBC 4.53 (4.2-5.4) M/uL Hgb 13.1 (12.0-16.0) g/dL Hct 43.3 (37-47) % MCV 95.6 (80-100) fL MCH 28.9 (25-34) pg MCHC 30.3 L (32-36) g/dL RDW Std Deviation 48.1 H (36.4-46.3) fL RDW Coeff of Reg 13.7 (11.5-14.5) % Plt Count 217 (130-400) K/uL MPV 11.9 H (7.4-10.4) fL Immature Gran % (Auto) 0.0 % Neut % (Auto) 72.6 % Lymph % (Auto) 15.2 % [place] % (Auto) 8.2 % Eos % (Auto) 3.6 % Baso % (Auto) 0.4 % Immature Gran # (Auto) 0.00 (0.00-0.02) K/uL Neut # (Auto) 4.06 (1.4-6.5) K/uL Lymph # (Auto) 0.85 L (1.2-3.4) K/uL [place] # (Auto) 0.46 (0.11-0.59) K/uL Eos # (Auto) 0.20 (0-0.5) K/uL Baso # (Auto) 0.02 (0-0.2) K/uL PT 10.8 (9.0-12.0) Seconds INR 1.1 (0.9-1.1) APTT 25.9 (21.0-31.0) Seconds PTT Ratio 1.0 VBG pH (7.36-7.41) VBG pCO2 (38-50) mmHg VBG pO2 mmHg VBG HCO3 mmol/L VBG O2 Saturation % VBG Base Excess mEq/L Barometric Pressure mm/Hg Sodium 140 (136-145) mmol/L Potassium (3.5-5.1) mmol/L Chloride 95 L (98-107) mmol/L Carbon Dioxide 41 H* (21-32) mmol/L Anion Gap 2.0 L (3-11) BUN 15 (7-18) mg/dl Creatinine 0.56 L (0.6-1.2) mg/dl Est Cr Clr Drug Dosing 86.4 ml/min Est GFR ( Amer) 105.7 Est GFR (Non-Af Amer) 91.2 BUN/Creatinine Ratio 26.3 H (10-20) Glucose 144 H (70-99) mg/dl Calcium 9.3 (8.5-10.1) mg/dl Magnesium (1.8-2.4) mg/dl Total Bilirubin 0.8 (0.2-1) mg/dl AST (15-37) U/L ALT 18 (12-78) U/L Alkaline Phosphatase 79 (45-117) U/L Troponin I < 0.015 (0-0.045) ng/ml Total Protein 7.5 (6.4-8.2) gm/dl Albumin 3.7 (3.4-5.0) gm/dl Globulin 3.8 (2.5-4.0) gm/dl Albumin/Globulin Ratio 1.0 (0.9-2) Influenza Type A (PCR) (Neg) Influenza Type B (PCR) (Neg) 04/22/19 04/22/19 04/22/19 Range/Units 13:45 14:15 14:30 WBC (4.8-10.8) K/uL RBC (4.2-5.4) M/uL Hgb (12.0-16.0) g/dL Hct (37-47) % MCV (80-100) fL MCH (25-34) pg MCHC (32-36) g/dL RDW Std Deviation (36.4-46.3) fL RDW Coeff of Reg (11.5-14.5) % Plt Count (130-400) K/uL MPV (7.4-10.4) fL Immature Gran % (Auto) % Neut % (Auto) % Lymph % (Auto) % [place] % (Auto) % Eos % (Auto) % Baso % (Auto) % Immature Gran # (Auto) (0.00-0.02) K/uL Neut # (Auto) (1.4-6.5) K/uL Lymph # (Auto) (1.2-3.4) K/uL [place] # (Auto) (0.11-0.59) K/uL Eos # (Auto) (0-0.5) K/uL Baso # (Auto) (0-0.2) K/uL PT (9.0-12.0) Seconds INR (0.9-1.1) APTT (21.0-31.0) Seconds PTT Ratio VBG pH 7.28 L (7.36-7.41) VBG pCO2 104 H (38-50) mmHg VBG pO2 34 mmHg VBG HCO3 47 mmol/L VBG O2 Saturation 66.4 % VBG Base Excess 15.5 mEq/L Barometric Pressure 733.7 mm/Hg Sodium (136-145) mmol/L Potassium (3.5-5.1) mmol/L Chloride (98-107) mmol/L Carbon Dioxide (21-32) mmol/L Anion Gap (3-11) BUN (7-18) mg/dl Creatinine (0.6-1.2) mg/dl Est Cr Clr Drug Dosing ml/min Est GFR ( Amer) Est GFR (Non-Af Amer) BUN/Creatinine Ratio (10-20) Glucose (70-99) mg/dl Calcium (8.5-10.1) mg/dl Magnesium Cancelled (1.8-2.4) mg/dl Total Bilirubin (0.2-1) mg/dl AST (15-37) U/L ALT (12-78) U/L Alkaline Phosphatase (45-117) U/L Troponin I Cancelled (0-0.045) ng/ml Total Protein (6.4-8.2) gm/dl Albumin (3.4-5.0) gm/dl Globulin (2.5-4.0) gm/dl Albumin/Globulin Ratio (0.9-2) Influenza Type A (PCR) Neg for Influ A (Neg) Influenza Type B (PCR) Neg for Influ B (Neg) 04/22/19 Range/Units 14:30 WBC (4.8-10.8) K/uL RBC (4.2-5.4) M/uL Hgb (12.0-16.0) g/dL Hct (37-47) % MCV (80-100) fL MCH (25-34) pg MCHC (32-36) g/dL RDW Std Deviation (36.4-46.3) fL RDW Coeff of Reg (11.5-14.5) % Plt Count (130-400) K/uL MPV (7.4-10.4) fL Immature Gran % (Auto) % Neut % (Auto) % Lymph % (Auto) % [place] % (Auto) % Eos % (Auto) % Baso % (Auto) % Immature Gran # (Auto) (0.00-0.02) K/uL Neut # (Auto) (1.4-6.5) K/uL Lymph # (Auto) (1.2-3.4) K/uL [place] # (Auto) (0.11-0.59) K/uL Eos # (Auto) (0-0.5) K/uL Baso # (Auto) (0-0.2) K/uL PT (9.0-12.0) Seconds INR (0.9-1.1) APTT (21.0-31.0) Seconds PTT Ratio VBG pH (7.36-7.41) VBG pCO2 (38-50) mmHg VBG pO2 mmHg VBG HCO3 mmol/L VBG O2 Saturation % VBG Base Excess mEq/L Barometric Pressure mm/Hg Sodium (136-145) mmol/L Potassium 4.2 (3.5-5.1) mmol/L Chloride (98-107) mmol/L Carbon Dioxide (21-32) mmol/L Anion Gap (3-11) BUN (7-18) mg/dl Creatinine (0.6-1.2) mg/dl Est Cr Clr Drug Dosing ml/min Est GFR ( Amer) Est GFR (Non-Af Amer) BUN/Creatinine Ratio (10-20) Glucose (70-99) mg/dl Calcium (8.5-10.1) mg/dl Magnesium 2.3 (1.8-2.4) mg/dl Total Bilirubin (0.2-1) mg/dl AST 12 L (15-37) U/L ALT (12-78) U/L Alkaline Phosphatase (45-117) U/L Troponin I (0-0.045) ng/ml Total Protein (6.4-8.2) gm/dl Albumin (3.4-5.0) gm/dl Globulin (2.5-4.0) gm/dl Albumin/Globulin Ratio (0.9-2) Influenza Type A (PCR) (Neg) Influenza Type B (PCR) (Neg) Imaging Data Radiologist's Impression: Radiology results as stated below per my review and the radiologist's interpretation: XR chest 1V portable CLINICAL HISTORY: Dyspnea COMPARISON STUDY: Chest CT December 14, 2018. Chest radiograph February 16, 2019. FINDINGS: Cardiomediastinal silhouette is stable. There is no evidence for pulmonary edema. There is no pneumothorax or pleural effusion. There is mild left lower lung opacity. IMPRESSION: Mild left lower lung opacity which may reflect pneumonia or atelectasis. Radiographic follow-up is recommended. Electronically signed by: Jas Franco M.D. 04/22/2019 3:17 PM ECG Data Indication: SOB/dyspnea Rate (beats per minute): 92 Rhythm: normal sinus Findings: + other (normal interval, normal axis); no acute ischemic change Blood Pressure Blood Pressure Findings: Elevated blood pressure Blood Pressure Disposition: further management by hospitalist KULDIP Merritt The patient is a 73 year old white female w/ PMHx of COPD, CHF, HTN, and HLD who presents to the ED w/ CC of an episode of shortness of breath beginning 2 days ago. Differential diagnosis: Etiologies such as infections, reactive airway disease, COPD, pneumonia, pleural effusion, pulmonary edema, ARDS, pneumothorax, CHF, cardiac ischemia, cardiac tamponade, dysrhythmia, anemia, pulmonary embolism, musculoskeletal, ankur rointestinal process, as well as others were entertained. Patient was seen and evaluated the bedside. The patient was presenting with some shortness of breath. Patient had been seen and evaluated after being seen and evaluated by the resident physician. Patient does have a known history of COPD that she is had worsening shortness of breath and dyspnea on exertion. The patient is somewhat tachypneic with shallow breathing in mild distress. The patient did a blood work completed and was immediately placed on a BiPAP given the concern for her possible elevated CO2. The patient's blood work shows a normal white count and H&H. The patient does have a chest film which is concerning for atelectasis versus pneumonia. Patient does have a known history of recent admission but her white count is normal and does have cough but antibiotics are deferred to the inpatient team at this time. The patient's initial blood gas did show a pH of 7-8 with an elevated PCO2 of 104. Given this acute concern for hypercarbia and CO2 retention I did speak the on-call hospitalist along with the resident physician who agreed to further evaluate treat the patient. Patient was subsequently admitted to the medicine service. Impression & Plan Hypercapnia, COPD exacerbation, Respiratory failure, Hypoxia Critical Care Time Critical Care Time: Yes Total Critical Care Time: 77 I have personally spent greater than 77 minutes of critical care time in direct management of this patient. This includes bedside care, interpretation of diagnostic studies, and testing, discussion with consultants, patient, and family members, and other require inpatient management activities. This 77 minutes is in excess of all separately billable procedures. Discharge Plan Visit Data *Final* Discharge Date/Time: 04/22/19 17:28 Chief Complaint: Respiratory Problems ED Provider: Thien Murcia ED Midlevel Provider: Agustin Lei Discharge Problem: Hypercapnia, COPD exacerbation, Respiratory failure, Hypoxia Patient Disposition: Admitted As Inpatient Discharge Instructions Interventions: ED Discharge Assessment Last Done: 04/22/19 17:28 Discharge Problem: Respiratory failure Qualifiers: Chronicity: unspecified The scribe's documentation has been prepared under my direction and personally reviewed by me in its entirety. I confirm that the note above accurately reflects all work, treatment, procedures, and medical decision making performed by me.
[2019-04-22] MEDS: BUDESONIDE/FORMOTEROL FUMARATE 160/4.5 60 PUFFS/INHALER INH SCH (20:27)
[2019-04-22] MEDS: methylPREDNISolone 40 MG in SYRINGE 0 ML IV SCH (22:02)
[2019-04-22] MEDS: ENOXAPARIN INJ 40 MG/0.4 ML SYR SQ SCH (22:02)
[2019-04-23] MEDS: TRAMADOL HCL 50 MG TABLET PO PRN ×2 (02:45→20:56)
[2019-04-23] MEDS: ACETAMINOPHEN 325 MG TAB PO PRN (06:02)
[2019-04-23 07:12] LABS: Hematocrit (blood only) 38.7 % (37-47); Hemoglobin 11.9 g/dL (12.0-16.0); Immature Granulocytes # (auto) 0.01 K/uL (0.00-0.02); Immature Granulocytes % (auto) 0.2 %; Lymphocytes # (auto) 0.52 K/uL (1.2-3.4); Mean Corpuscular Hgb Conc 30.7 g/dL (32-36); Mean Corpuscular Volume 93.5 fL (80-100); Mean Platelet Volume 11.1 fL (7.4-10.4); Monocytes # (auto) 0.23 K/uL (0.11-0.59); Monocytes % (auto) 4.4 %; Neutrophils # (auto) 4.42 K/uL (1.4-6.5); Neutrophils % (auto) 85.4 %; Platelet Count 210 K/uL (130-400); RDW Coefficient of Variation 13.5 % (11.5-14.5); RDW Standard Deviation 46.2 fL (36.4-46.3); Red Blood Count 4.14 M/uL (4.2-5.4); White Blood Count 5.18 K/uL (4.8-10.8)
[2019-04-23 07:20] LABS: BUN Creatinine Ratio 22.8 (10-20); Calcium 9.4 mg/dl (8.5-10.1); Creatinine Clr Calc Pharmacy 68.9 ml/min; Est GFR (African American) 100.7; Est GFR (Non-African American) 86.8; Magnesium 2.5 mg/dl (1.8-2.4)
[2019-04-23] MEDS: ALBUT/IPRATROP 3MG/0.5MG NEB 3 ML VIAL NEB SCH ×4 (07:21→19:04)
[2019-04-23 07:31] LABS: Estimated Average Glucose 117 mg/dl; Hemoglobin A1C 5.7 % (4.5-5.6)
[2019-04-23] MEDS: PANTOprazole 40 MG TAB PO SCH (08:01)
[2019-04-23] MEDS: ASPIRIN 81 MG ECTAB PO SCH (08:01)
[2019-04-23] MEDS: LOSARTAN POTASSIUM 25 MG TAB PO SCH (08:01)
[2019-04-23] MEDS: MAGNESIUM OXIDE 400 MG TAB PO SCH (08:01)
[2019-04-23] MEDS: FUROSEMIDE 40 MG TAB PO SCH (08:01)
[2019-04-23] MEDS: METOPROLOL SUCC 50MG EXT REL TAB PO SCH (08:01)
[2019-04-23] MEDS: ATORVASTATIN 40 MG TAB PO SCH (08:01)
[2019-04-23] MEDS: BUDESONIDE/FORMOTEROL FUMARATE 160/4.5 60 PUFFS/INHALER INH SCH ×2 (08:02→20:56)
[2019-04-23] MEDS: methylPREDNISolone 40 MG in SYRINGE 0 ML IV SCH ×3 (08:26→22:31)
--- NOTE | 2019-04-23 11:27 | Hospitalist Progress Note ---
Date of Service April 23, 2019 Assessment & Plan (1) Acute and chronic respiratory failure: (2) COPD exacerbation: Acute on chronic hypercapnic respiratory failure Pt with hx COPD on chronic oxygen 2L and 3L via NC HS presented on 04/22/19 with increased SOB and lethargy over past 2 days without fever or chills. Pt reports her oxygen tubing was occluded yesterday. H/O bronchoscopy on 04/18/[address] Chowdhury which showed chronic mucopurulent bronchitis with mucoid impaction, dynamic airway collapse involving distal third of trachea and left tracheobronchial tree 04/22/19 CXR: Mild left lower lung opacity which may reflect pneumonia or atelectasis 04/22/19 pt was found to have hypercarbia and pt was placed on Bipap which she initially tolerated and then refused in the evening. Initial ABG on 3L oxygen: pH: 7.29, pCO2: 94, pO2: 105, HCO3: 44. Had received initial dose of Solumedrol 125mg IV, mag sulfate 1gm IV, an hour long albuterol neb in ER -Pt clinically improved with decreased SOB -ABG improved with pH: 7.43, pCO2: 64, pO2: 89, HCO3: 41. while on 2L NC -Solumedrol 40mg Q8H -Levaquin -Duonebs -Continue Symbicort -Hold home Spiriva since on Duonebs -Continue oxygen via NC at 2L during day and 3L HS -Pulmonology consult (3) Hypertension: Stable -Continue metoprolol, losartan (4) Chronic diastolic heart failure: Hx grade 1 diastolic failure 01/2019 echo: EF: 55-60%, moderate concentric LVH Appears euvolemic -Continue lasix (5) Dyslipidemia: -Continue atorvastatin (6) Fibromyalgia: -Continue Tylenol prn, Tramadol prn DVT Prophylaxis -Lovenox SQ Pt was seen and care coordinated with Dr Jauqez. See addendum Supervising Physician Co-Signing Physician Notes Pt was seen and examined. Agreed with Felicia PETERSEN exam, assessment and plan. Pt said that she continues t have SOB with exertion. She said that her cough improves. Pt said that she cannot leave her house because she does not a portable tank that can fit to her purse. Had a bronch done as an outpatient with culture grew penicillum species and yeast not tsering. Mostly colonization, will discuss with ID if needs treat. Continue oxygen supplement and neb treatment. Continue monitor closely. MD Gisele Subjective Pt seen and examined Sitting up in bed on oxygen via nasal cannula. Pt reports bipap makes her feel like she is suffocating and she did not wear it last evening. Pt since been on oxygen via NC at 2-3L. She reports breathing feels back to her baseline. She is on chronic 2L NC and 3L NC HS. States had productive cough last night but none today. Denies CP. Pt states she remembers yesterday she had stepped on her oxygen tubing and was initially unaware until EMS arrived yesterday and believes this was underlying cause of her worsening SOB yesterday. Pt expresses that she would like to be able to get out of the house more, however reports difficulty with the portable oxygen tank and states was trying to inquire about portable oxygen concentrator with out patient pulmonology. Denies fever/chills, diaphoresis, N/V/D/C, LEACH, dizziness, syncope, vision changes, neck pain, CP, palpitations,sore throat, choking, otalgia, rhinorrhea, abdominal pain, paresthesias, weakness, extremity edema, rashes, urinary symptoms. Physical Exam Physical Exam: General: sitting up in bed on 2L NC. No acute distress, obese Head: normocephalic, atraumatic Eyes: PERRL, EOM's intact, conjunctiva non-injected, anicteric ENT: normal inspection external ears, nose, mucous membranes moist Neck: supple, trachea midline Lungs:On 2 L NC, RR: 20, O2: 97%, Pt becomes SOB after speaking couple of sentences, lung sounds diminished throughout with wheezing, crackles at bases CV: RRR, no murmur, no pretibial edema Abd: normal BS, soft, non-tender Ext: no cyanosis, no calf tenderness Neuro: Alert, oriented to person, place, month and year, confused on day. Pt easily distracted, no focal deficits noted, normal affect Skin: warm, dry Results & Data Vital Signs (Past 12 Hours) Vital Signs Temp Pulse Pulse Resp BP Pulse Ox 04/23/19 11:13 97 H 18 98 04/23/19 07:51 95 H 04/23/19 07:21 95 H 16 97 04/23/19 07:00 36.8 C 94 H 20 123/71 97 04/23/19 03:35 36.3 C L 86 18 160/87 H 97 04/23/19 01:00 90 Laboratory Results Short CBC 04/22/19 04/23/19 04/23/19 Range/Units 13:45 06:20 07:00 WBC 5.59 Cancelled 5.18 (4.8-10.8) K/uL Hgb 13.1 Cancelled 11.9 L (12.0-16.0) g/dL Hct 43.3 Cancelled 38.7 (37-47) % Plt Count 217 Cancelled 210 (130-400) K/uL BMP 04/22/19 04/22/19 04/23/19 13:45 14:30 06:20 Sodium 140 141 Potassium 4.2 4.0 Chloride 95 L 96 L Carbon Dioxide 41 H* 39 H BUN 15 15 Creatinine 0.56 L 0.65 Glucose 144 H 111 H Calcium 9.3 9.4 Cardiac Enzymes 04/22/19 04/22/19 Range/Units 13:45 13:45 Troponin I < 0.015 Cancelled (0-0.045) ng/ml Liver Function 04/22/19 04/22/19 Range/Units 13:45 14:30 Total Bilirubin 0.8 (0.2-1) mg/dl AST 12 L (15-37) U/L ALT 18 (12-78) U/L Alkaline Phosphatase 79 (45-117) U/L Albumin 3.7 (3.4-5.0) gm/dl (1) Hypertension Hypertension type: unspecified Qualified Code(s): I10 - Essential (primary) hypertension
[2019-04-23 12:25] LABS: Base Excess ABG 14.6 mEq/L (-9-1.8); HCO3 ABG 41 mmol/L (19-24); Oxygen Saturation ABG 96.7 % (90-95); PCO2 ABG 64 mmHg (35-46); PO2 ABG 89 mm/Hg (80-95); pH ABG 7.43 (7.35-7.45)
[2019-04-23 12:26] LABS: Allen Test Pos (Pos)
[2019-04-23] MEDS: LEVOFLOXACIN/D5W 750 MG/150 ML BAG IV SCH (18:29)
--- NOTE | 2019-04-23 18:56 | Consultation Report ---
DATE OF CONSULTATION: 04/23/2019 PULMONARY MEDICINE CONSULTATION Chart reviewed, the patient examined. REASON FOR CONSULTATION: COPD exacerbation and acute hypoxic respiratory failure. HISTORY OF PRESENT ILLNESS: A 73-year-old white female well known to me with severe COPD who recently underwent bronchoscopic evaluation on 04/18/2019 with chronic mucopurulent bronchitis and mucoid impaction along with dynamic airway collapse involving the distal third of the trachea and right and left tracheobronchial tree. The patient was admitted several days later with progressive dyspnea, although seemed to tolerate the procedure reasonably well. She remains on oxygen at 4 liters and has been tried on BiPAP in the past without tolerance. Today, she bitterly complained of the use of a full facemask with BiPAP and does not feel she can tolerate that therapy. She has been on Symbicort and Spiriva as an outpatient and has been receiving aerosolized bronchodilator along with IV Solu-Medrol since her admission. She has also had a history of chronic diastolic heart failure, has an EF that is well preserved at 55%-60%. She is receiving prophylactic Lovenox subQ and had some questions concerning this. In the ER, she was given IV Solu-Medrol and 1 g of IV mag sulfate because of severe shortness of breath. For additional details concerning her past medical history, I refer you to the H and P dictated for her bronchoscopic procedure on 04/18/2019. PHYSICAL EXAMINATION: GENERAL: Reveals a well-developed, well-nourished white female in no obvious distress at rest. VITAL SIGNS: Blood pressure 131/72, pulse 99 and regular, respiratory rate 20, temperature of 36.7, and O2 sat 94% on 2 liters. SKIN: Without lesion. HEENT: Atraumatic, normocephalic, PERRLA, EOMI. Conjunctivae pale. Sclerae nonicteric. Fundi poorly visualized. NECK: Neck veins are not distended at 45 degrees. No obvious adenopathy in the supra or infraclavicular areas. LUNGS: Distant P and A with scattered wheeze. CARDIAC: Regular rate and rhythm. No murmurs or gallops. ABDOMEN: Soft, protuberant. EXTREMITIES: No pedal edema, clubbing or cyanosis. NEUROLOGIC: Intact. No lateralizing signs. LABORATORY DATA: Bronch washings grew out normal nayely and yeast, not Guerita and penicillium species, not felt to be a pathogen. Chest x-ray most recently taken shows left lower lung opacity, which may reflect pneumonia. Last chest CT in December showed mild left basilar atelectasis. Most recent white count 5100, H and H 11.9 and 38.7. ABG on admission; pH 7.29, pCO2 94, pO2 of 105 on 3 liters. Currently on 2 liters with ABGs; pH 7.43, pCO2 64, pO2 of 89. BUN 15, creatinine 0.6. Serologies from recent outpatient procedure have been unremarkable and negative. OVERALL ASSESSMENT AND PLAN: A 73-year-old with [id number] hypoxic and hypercarbic respiratory failure with recent chronic obstructive pulmonary disease exacerbation with evidence for endoscopic dynamic airway collapse and mucopurulent bronchitis with mucoid impaction. The patient clinically looks much better than she did even when I saw her as an outpatient and suspect one can taper the steroids fairly quickly. There was no sign of methicillin-resistant Staphylococcus aureus or culture evidence for bacterial infection at the time of bronchoscopy. The patient is bitterly complaining as she did to me of outpatient BiPAP therapy and feels she cannot tolerate it unless a nasal mask or nasal pillows are utilized as she feels claustrophobic and suffocating. She is extremely marginal as her blood gases would suggest but currently is quite stable and we would try to mobilize the patient and see how patient clinically adapts to increased activity. We will follow along with you. Thank you very much for this consultation.
[2019-04-23] MEDS: ENOXAPARIN INJ 40 MG/0.4 ML SYR SQ SCH (22:12)
[2019-04-24] MEDS: methylPREDNISolone 40 MG in SYRINGE 0 ML IV SCH ×3 (05:24→16:03)
[2019-04-24 06:00] LABS: Hematocrit (blood only) 40.4 % (37-47); Hemoglobin 12.2 g/dL (12.0-16.0); Mean Corpuscular Hgb Conc 30.2 g/dL (32-36); Mean Corpuscular Volume 94.2 fL (80-100); Mean Platelet Volume 11.7 fL (7.4-10.4); Platelet Count 207 K/uL (130-400); RDW Coefficient of Variation 13.7 % (11.5-14.5); RDW Standard Deviation 46.7 fL (36.4-46.3); Red Blood Count 4.29 M/uL (4.2-5.4)
[2019-04-24 06:44] LABS: BUN Creatinine Ratio 25.5 (10-20); Calcium 8.9 mg/dl (8.5-10.1); Creatinine Clr Calc Pharmacy 67.6 ml/min; Est GFR (African American) 100.2; Est GFR (Non-African American) 86.4; Potassium 4.1 mmol/L (3.5-5.1)
[2019-04-24] MEDS: ALBUT/IPRATROP 3MG/0.5MG NEB 3 ML VIAL NEB SCH ×4 (06:57→18:58)
[2019-04-24] MEDS: PANTOprazole 40 MG TAB PO SCH (07:54)
[2019-04-24] MEDS: ATORVASTATIN 40 MG TAB PO SCH (07:54)
[2019-04-24] MEDS: MAGNESIUM OXIDE 400 MG TAB PO SCH (07:55)
[2019-04-24] MEDS: LOSARTAN POTASSIUM 25 MG TAB PO SCH (07:55)
[2019-04-24] MEDS: METOPROLOL SUCC 50MG EXT REL TAB PO SCH (07:55)
[2019-04-24] MEDS: ASPIRIN 81 MG ECTAB PO SCH (07:55)
[2019-04-24] MEDS: FUROSEMIDE 40 MG TAB PO SCH (07:55)
[2019-04-24] MEDS: BUDESONIDE/FORMOTEROL FUMARATE 160/4.5 60 PUFFS/INHALER INH SCH ×2 (07:55→21:50)
[2019-04-24] MEDS: TRAMADOL HCL 50 MG TABLET PO PRN ×3 (07:58→21:52)
[2019-04-24 08:01] LABS: Base Excess ABG 14.2 mEq/L (-9-1.8); HCO3 ABG 44 mmol/L (19-24); Oxygen Saturation ABG 94.7 % (90-95); PCO2 ABG 84 mmHg (35-46); PO2 ABG 79 mm/Hg (80-95); pH ABG 7.34 (7.35-7.45)
[2019-04-24 08:05] LABS: Allen Test Pos (Pos)
--- NOTE | 2019-04-24 10:50 | Hospitalist Progress Note ---
Date of Service April 24, 2019 Assessment & Plan (1) Acute and chronic respiratory failure: (2) COPD exacerbation: Acute on chronic hypoxic, hypercapnic respiratory failure on chronic oxygen 2L and 3L via NC HS. COPD exacerbation. Possible pneumonia. H/O bronchoscopy on 04/18/[address] Chowdhury which showed chronic mucopurulent bronchitis with mucoid impaction, dynamic airway collapse involving distal third of trachea and left tracheobronchial tree Initial presentation on 04/22/19 pt with increased SOB and lethargy for 2 days without fever or chills. Pt reports thinks her oxygen tubing was occluded. She presented with hypercarbia and was placed on bipap which tolerated for several hours then denied once her breathing improved. Initially treated with Solumedrol 125mg IV, magnesium sulfate 1gm IV, hour long albuterol neb. Initial ABG on 3L oxygen: pH: 7.29, pCO2: 94, pO2: 105, HCO3: 44. Repeat ABG on 04/23/19 improved with pH: 7.43, pCO2: 64, pO2: 89, HCO3: 41 while on 2L NC 04/22/19 CXR: Mild left lower lung opacity which may reflect pneumonia or atelectasis -Pt clinically improved and denies further SOB. -Ambulation encouraged today to monitor respiratory status response -Has received Solumedrol 40mg Q8H -Levaquin -Duonebs -Continue Symbicort -Hold home Spiriva since on Duonebs -Continue oxygen via NC at 2L during day and 3L HS -Pulmonology consult, appreciate recommendations (3) Hypertension: Stable -Continue metoprolol, losartan (4) Chronic diastolic heart failure: Hx grade 1 diastolic failure 01/2019 echo: EF: 55-60%, moderate concentric LVH Euvolemic -Continue lasix (5) Dyslipidemia: -Continue atorvastatin (6) Fibromyalgia: -Continue Tylenol prn, Tramadol prn DVT Prophylaxis -Lovenox SQ Disposition: - pending PT/OT eval for further recommendations Pt was seen and care coordinated with Dr Jaquez. See addendum Supervising Physician Co-Signing Physician Notes Pt was seen and examined. Agreed with Felicia PETERSEN exam, assessment and plan. Pt said that she feels a little better. I spoke to ID about the bronch cx result and no need to start pt on antifungal therapy. Blood cx no growth so far. Notified trimming caser about protable oxygen. Case management said pt already had a portable tank. If Pt needs to get a small size tank that can to her purse, she will have to pay for it. Continue monitor closely. Continue Levaquin. MD Gisele Subjective Pt seen and examined. Lying in bed. Reports feels breathing is at her baseline and denies SOB. Is on her baseline oxygen 2L during day and 3L via NC HS. Denies increased cough. Pt would like to try to ambulate today and is eager to be discharged home. Denies fever/chills, N/V/D, abdominal pain, LEACH, dizziness, CP, palpitations, rashes. Physical Exam Physical Exam: General: Lying up in bed on 2L NC. No respiratory distress, obese Head: normocephalic, atraumatic Eyes: PERRL, EOM's intact, conjunctiva non-injected, anicteric ENT: normal inspection external ears, nose, mucous membranes moist Neck: supple, trachea midline Lungs: No respiratory distress, On 2L NC with sat: 98%. Lung sounds diminished throughout with wheezing CV: RRR, no murmur, no pretibial edema Abd: normal BS, soft, non-tender Ext: no cyanosis, no calf tenderness Neuro: A&O to person, place, year. no focal deficits noted, normal affect Skin: warm, dry Results & Data Vital Signs (Past 12 Hours) Vital Signs Temp Pulse Pulse Resp BP Pulse Ox 04/24/19 07:07 36.8 C 80 20 143/59 H 98 04/24/19 07:02 85 18 99 04/24/19 03:25 36.3 C L 102 H 22 143/68 H 97 04/24/19 00:00 90 04/23/19 23:10 36.6 C 104 H 18 146/86 H 96 Laboratory Results Short CBC 04/22/19 04/23/19 04/24/19 Range/Units 13:45 06:20 05:29 WBC 11.40 H (4.8-10.8) K/uL Hgb 12.2 (12.0-16.0) g/dL Hct 40.4 (37-47) % Plt Count 207 (130-400) K/uL Carbon Dioxide 41 H* 39 H (21-32) mmol/L 04/24/19 Range/Units 05:29 WBC (4.8-10.8) K/uL Hgb (12.0-16.0) g/dL Hct (37-47) % Plt Count (130-400) K/uL Carbon Dioxide 43 H* (21-32) mmol/L BMP 04/24/19 05:29 Sodium 140 Potassium 4.1 Chloride 96 L Carbon Dioxide 43 H* BUN 17 Creatinine 0.66 Glucose 129 H Calcium 8.9 (1) Hypertension Hypertension type: unspecified Qualified Code(s): I10 - Essential (primary) hypertension
--- NOTE | 2019-04-24 16:04 | Progress Note ---
DATE: 04/24/2019 Chart reviewed, the patient examined. SUBJECTIVE: The patient states, I think she will be ready to go home tomorrow. She has minimal cough. Her preoccupation appears to be getting a portable O2 concentrator to help with ambulation and her mobility. I once again reaffirmed to her that the potential for coverage from her insurance is low for portable oxygen concentrators and that their schultz usually lies between $2500 to 3000. Will need to follow as an outpatient, but suspect the patient is close to baseline.
[2019-04-24] MEDS ORDERED: LEVOFLOXACIN/D5W 750 MG/150 ML BAG IV STA (17:12)
[2019-04-24] MEDS ORDERED: levoFLOXacin 750 MG TAB PO SCH (18:00)
[2019-04-24] MEDS: ENOXAPARIN INJ 40 MG/0.4 ML SYR SQ SCH (21:51)
[2019-04-25 06:23] LABS: Hemoglobin 11.3 g/dL (12.0-16.0); Immature Granulocytes # (auto) 0.03 K/uL (0.00-0.02); Immature Granulocytes % (auto) 0.2 %; Lymphocytes # (auto) 0.74 K/uL (1.2-3.4); Lymphocytes % (auto) 5.3 %; Mean Corpuscular Hgb Conc 30.5 g/dL (32-36); Mean Corpuscular Volume 95.9 fL (80-100); Mean Platelet Volume 11.8 fL (7.4-10.4); Monocytes # (auto) 1.18 K/uL (0.11-0.59); Monocytes % (auto) 8.4 %; Neutrophils # (auto) 12.03 K/uL (1.4-6.5); Neutrophils % (auto) 86.1 %; Platelet Count 187 K/uL (130-400); RDW Coefficient of Variation 13.9 % (11.5-14.5); RDW Standard Deviation 48.6 fL (36.4-46.3); Red Blood Count 3.86 M/uL (4.2-5.4); White Blood Count 13.98 K/uL (4.8-10.8)
[2019-04-25] MEDS: ALBUT/IPRATROP 3MG/0.5MG NEB 3 ML VIAL NEB SCH ×4 (06:55→19:13)
[2019-04-25 07:01] LABS: BUN Creatinine Ratio 34.7 (10-20); Creatinine Clr Calc Pharmacy 62.2 ml/min; Est GFR (African American) 94.9; Est GFR (Non-African American) 81.9; Potassium 3.6 mmol/L (3.5-5.1)
--- NOTE | 2019-04-25 08:46 | Hospitalist Progress Note ---
Date of Service April 25, 2019 Assessment & Plan (1) Acute and chronic respiratory failure: (2) COPD exacerbation: Acute on chronic hypoxic, hypercapnic respiratory failure on chronic oxygen 2L and 3L via NC HS. COPD exacerbation. Possible pneumonia. 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 Presented with hypercarbia and was placed on bipap which tolerated for several hours then denied once her breathing improved. Initially treated with Solumedrol 125mg IV, magnesium sulfate 1gm IV, hour long albuterol neb. Admission ABG on 3L oxygen: pH: 7.29, pCO2: 94, pO2: 105, HCO3: 44. Repeat ABG on 04/23/19 had improved with pH: 7.43, pCO2: 64, pO2: 89, HCO3: 41 while on 2L NC 04/22/19 CXR: Mild left lower lung opacity which may reflect pneumonia or atelectasis -04/25/19 Pt is clinically improved, less wheezing to auscultation, denies current SOB. -PT eval today recommends PT -Has received Solumedrol 40mg Q8H from 04/22/19 - 04/24/19 -04/25/19 started on prednisone 40mg daily -Levaquin IV x 3 doses and switched to oral Levaquin on 04/25/19 -Duonebs -Continue home Symbicort -Home Spiriva on hold while on Duonebs -Continue oxygen via NC at 2L during day and 3L HS -Pulmonology consult, appreciate recommendations (3) Hypertension: Stable -Continue metoprolol, losartan (4) Chronic diastolic heart failure: Hx grade 1 diastolic failure 01/2019 echo: EF: 55-60%, moderate concentric LVH Euvolemic -Continue lasix (5) Dyslipidemia: -Continue atorvastatin (6) Fibromyalgia: -Continue Tylenol prn, Tramadol prn DVT Prophylaxis -Lovenox SQ Disposition: - PT eval recommends PT. Likely d/c home tomorrow Rx placed on pt's chart for rollator walker with seat, brakes and basket PCP follow up with Dr Moon on 05/01/19 at 2:00PM Pt was seen and care coordinated with Dr Taylor. See addendum Supervising Physician Co-Signing Physician Notes Attending addendum: Patient is seen and examined, care coordinated with Billie Gutierrez PA-C 73-year-old female with advanced COPD with home O2 admitted with COPD exacerbation Symptom improved with IV Solu-Medrol, neb treatment And baseline respiratory status, Cough has improved no fever chills Antibiotic changed to p.o. Levaquin, will have fifth dose tomorrow Started on p.o. prednisone, patient will need to start slow taper Observed overnight to assess respiratory function after transition from IV to oral steroids Plan to discharge home tomorrow if remains medically stable CODE STATUS: Full code Please refer to further documentation by Harpreet Gutierrez PA-C for discussion of other chronic issues Flora Taylor MD Subjective Pt seen and examined. Sitting up in bed, she just returned from bathroom and reports felt that she did well. Reports feels breathing is at her baseline and denies SOB today. Is on her baseline oxygen 2L during day and 3L via NC HS. Reports some cough in the mornings and able to bring up a little sputum. States had loose BM today. Reports is eager to be discharged home. Is eating and drinking well. Denies fever/chills, N/V, abdominal pain, LEACH, dizziness, CP, palpitations, rashes. Physical Exam Physical Exam: General: Sitting up on edge of bed on 3L NC. No respiratory distress, obese Head: normocephalic, atraumatic Eyes: PERRL, EOM's intact, conjunctiva non-injected, anicteric ENT: normal inspection external ears, nose, mucous membranes moist Neck: supple, trachea midline Lungs: No respiratory distress, On 3L NC with sat: 100%. Lung sounds diminished throughout with faint wheezing CV: RRR, no murmur, no pretibial edema Abd: normal BS, soft, non-tender Ext: no cyanosis, no calf tenderness Neuro: A&O to person, place, year. no focal deficits noted, normal affect Skin: warm, dry Results & Data Vital Signs (Past 12 Hours) Vital Signs Temp Pulse Pulse Resp BP Pulse Ox 04/25/19 07:09 36.7 C 86 18 100 04/25/19 06:56 88 16 100 04/25/19 03:35 36.4 C L 95 H 18 121/68 98 04/25/19 03:00 96 H 04/24/19 23:16 36.3 C L 105 H 20 124/74 98 Laboratory Results Short CBC 04/25/19 Range/Units 06:02 WBC 13.98 H (4.8-10.8) K/uL Hgb 11.3 L (12.0-16.0) g/dL Hct 37.0 (37-47) % Plt Count 187 (130-400) K/uL BMP 04/25/19 06:02 Sodium 142 Potassium 3.6 Chloride 97 L Carbon Dioxide 43 H* BUN 25 H Creatinine 0.72 Glucose 106 H Calcium 9.0 (1) Hypertension Hypertension type: unspecified Qualified Code(s): I10 - Essential (primary) hypertension
[2019-04-25] MEDS: FUROSEMIDE 40 MG TAB PO SCH (09:13)
[2019-04-25] MEDS: predniSONE 20 MG TAB PO SCH (09:13)
[2019-04-25] MEDS: PANTOprazole 40 MG TAB PO SCH (09:14)
[2019-04-25] MEDS: METOPROLOL SUCC 50MG EXT REL TAB PO SCH (09:14)
[2019-04-25] MEDS: ATORVASTATIN 40 MG TAB PO SCH (09:14)
[2019-04-25] MEDS: BUDESONIDE/FORMOTEROL FUMARATE 160/4.5 60 PUFFS/INHALER INH SCH ×2 (09:15→21:25)
[2019-04-25] MEDS: MAGNESIUM OXIDE 400 MG TAB PO SCH (09:15)
[2019-04-25] MEDS: ASPIRIN 81 MG ECTAB PO SCH (09:16)
[2019-04-25] MEDS: LOSARTAN POTASSIUM 25 MG TAB PO SCH (09:16)
[2019-04-25] MEDS: TRAMADOL HCL 50 MG TABLET PO PRN ×2 (09:22→21:24)
[2019-04-25] MEDS: levoFLOXacin 750 MG TAB PO SCH (11:48)
[2019-04-25] MEDS: LACTOBACILLUS ACIDOPHILUS (FLORANEX) TAB PO SCH ×3 (12:40→21:26)
[2019-04-25] MEDS ORDERED: COUGH DROP (SUGAR FREE) LOZ 24 LOZ/1 BOX BUCCAL ONE (15:41)
[2019-04-25] MEDS: ENOXAPARIN INJ 40 MG/0.4 ML SYR SQ SCH (21:26)
[2019-04-26] MEDS: ALBUT/IPRATROP 3MG/0.5MG NEB 3 ML VIAL NEB SCH ×2 (07:15→11:28)
[2019-04-26] MEDS: ATORVASTATIN 40 MG TAB PO SCH (07:43)
[2019-04-26] MEDS: PANTOprazole 40 MG TAB PO SCH (07:44)
[2019-04-26] MEDS: METOPROLOL SUCC 50MG EXT REL TAB PO SCH (07:44)
[2019-04-26] MEDS: ASPIRIN 81 MG ECTAB PO SCH (07:44)
[2019-04-26] MEDS: LACTOBACILLUS ACIDOPHILUS (FLORANEX) TAB PO SCH ×2 (07:44→11:56)
[2019-04-26] MEDS: predniSONE 20 MG TAB PO SCH (07:44)
[2019-04-26] MEDS: FUROSEMIDE 40 MG TAB PO SCH (07:45)
[2019-04-26] MEDS: MAGNESIUM OXIDE 400 MG TAB PO SCH (07:46)
[2019-04-26] MEDS: LOSARTAN POTASSIUM 25 MG TAB PO SCH (07:46)
[2019-04-26] MEDS: BUDESONIDE/FORMOTEROL FUMARATE 160/4.5 60 PUFFS/INHALER INH SCH (07:49)
--- NOTE | 2019-04-26 10:44 | Progress Note ---
DATE: 04/26/2019 PULMONARY MEDICINE PROGRESS NOTE Chart reviewed. SUBJECTIVE: Would strongly urge to use of a Trilogy unit at home utilizing a nasal mask that may improve patient's compliance and comfort level, was still achieving our aims with noninvasive positive pressure ventilation in a patient who has had multiple admissions and now for acute on chronic hypoxic and hypercarbic respiratory failure.
[2019-04-26] MEDS: levoFLOXacin 750 MG TAB PO SCH (11:56)
--- NOTE | 2019-04-26 12:14 | Hospitalist Progress Note ---
Date of Service April 26, 2019 Assessment & Plan (1) Acute and chronic respiratory failure: Present with cough, shortness of breath, hypoxia secondary to COPD exacerbation Symptoms improved gradually Due to chronic respiratory failure consequent to COPD patient now requires a noninvasive home ventilator. Bilevel therapy with and without a rate would be in effective as patient requires a volume targeted mode. Ventilation is required to decrease the work of breathing and improve pulmonary status. Interruption of ventilator support would lead to decline of health status. Patient will benefit with trilogy at home. Prescription given (2) COPD exacerbation: Acute on chronic hypoxic, hypercapnic respiratory failure on chronic oxygen 2L and 3L via NC HS. Presented with COPD exacerbation Possible pneumonia. 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 Presented with hypercarbia and was placed on bipap which tolerated for several hours then denied once her breathing improved. Initially treated with Solumedrol 125mg IV, magnesium sulfate 1gm IV, hour long albuterol neb. Admission ABG on 3L oxygen: pH: 7.29, pCO2: 94, pO2: 105, HCO3: 44. Repeat ABG on 04/23/19 had improved with pH: 7.43, pCO2: 64, pO2: 89, HCO3: 41 while on 2L NC 04/22/19 CXR: Mild left lower lung opacity which may reflect pneumonia or atelectasis -04/25/19 Pt is clinically improved, less wheezing to auscultation, denies current SOB. - -Has received Solumedrol 40mg Q8H from 04/22/19 - 04/24/19 -04/25/19 started on prednisone 40mg daily -Levaquin IV x 3 doses and switched to oral Levaquin on 04/25/19 Last dose of p.o. Levaquin today 04/26/2019 -Duonebs -Continue home Symbicort -Home Spiriva will be resumed on discharge -Continue oxygen via NC at 2L during day and 3L HS -Pulmonology consult, appreciate recommendations Patient will benefit with Trilogy bilevel therapy ventilator at home Prescription given for trilogy Patient is discharged home with p.o. prednisone taper (3) Hypertension: Stable -Continue metoprolol, losartan (4) Chronic diastolic heart failure: Hx grade 1 diastolic failure 01/2019 echo: EF: 55-60%, moderate concentric LVH Euvolemic -Continue lasix/losartan (5) Dyslipidemia: -Continue atorvastatin (6) Fibromyalgia: -Continue Tylenol prn, Tramadol prn DVT Prophylaxis -Lovenox SQ Disposition: - PT eval recommends PT. Stable to be discharged home with above support Patient provided Rollator walker with seat, brakes and basket PCP follow up with Dr Moon on 05/01/19 at 1:45 PM Subjective Feels much better today, no cough no wheeze, no dyspnea on exertion, On baseline respiratory status-using 2 L oxygen via nasal cannula comes continuous Stable to be discharged home today Physical Exam Constitutional: WD/WN, vitals as above no acute distress ENMT: external ear and nose normal, oropharynx normal Neck: trachea midline, no thyromegaly Respiratory: normal respiratory effort; no respiratory distress and no cough Auscultation: no crackles, no rales, no rhonchi and no wheezes Cardiovascular: RRR, no murmur, no edema Gastrointestinal (Abdomen): normal bowel sounds, soft, nontender, no hepatosplenomegaly Musculoskeletal: no cyanosis or clubbing, extremities motor strength 5/5 Skin: no rashes, warm and dry Neurologic: PERRL, EOMI, accommodation nl, no face palsy, no dysarthria Psychiatric: A+Ox3, euthymic affect Results & Data Vital Signs (Past 12 Hours) Vital Signs Temp Pulse Resp BP Pulse Ox 04/26/19 11:29 110 H 18 90 04/26/19 07:50 36.8 C 80 18 148/78 H 100 04/26/19 07:19 88 18 98 (1) Acute and chronic respiratory failure Respiratory failure complication: hypoxia and hypercapnia Qualified Code(s): J96.21 - Acute and chronic respiratory failure with hypoxia; J96.22 - Acute and chronic respiratory failure with hypercapnia (2) Hypertension Hypertension type: unspecified Qualified Code(s): I10 - Essential (primary) hypertension
--- NOTE | 2019-04-26 12:50 | Discharge Summary ---
Date of Service April 26, 2019 Admission HPI Per Admitting Provider PT is 73 y/o F with PMH chronic respiratory failure, COPD on 2L during day and 3L HS, chronic diastolic heart failure, HTN, HLD presented to ER with c/o increased SOB. History difficult to obtain secondary to pt being on Bipap. Pt states yesterday started with increased SOB. Reports productive cough, however unclear from pt if this is increased or chronic. Reports some nasal congestion recently also. Pt states has been increasingly sleepy over the past couple of days. Reports using her O2. States using neb treatments with minimal relief. Hx hospitalization 02/13/19-02/17/19 for acute on chronic respiratory failure, COPD exacerbation, and possible pneumonia and was treated with Bipap initially, Duonebs, Rocephin, Zithromax. Denies fever/chills, diaphoresis, N/V/D/C, LEACH, dizziness, syncope, vision changes, neck pain, CP, sore throat, choking, otalgia, abdominal pain, paresthesias, extremity edema, rashes, urinary symptoms. In ER pt was given solumedrol 125mg IV, mag sulfate 1gm IV, hour long albuterol neb, 500ml NSS and was placed on Bipap secondary to hypercapnia. Principal Diagnosis COPD EXACERBATION/ACUTE ON CHRONIC RESPIRATORY FAILURE Discharge Data Allergies Allergy/AdvReac Type Severity Reaction Status Date / Time duloxetine [From Cymbalta] Allergy Rash Verified 04/22/19 15:08 naproxen AdvReac Mild GI Verified 04/22/19 15:08 SYMPTOMS-PT DENIES Consultations 04/22/19 16:06 ED Decision to Admit Stat 04/22/19 17:46 Consult Case Management - Discharge Planning Routine Consult Pulmonology Routine Hospital Course (1) Acute and chronic respiratory failure: Present with cough, shortness of breath, hypoxia secondary to COPD exacerbation Symptoms improved gradually Due to chronic respiratory failure consequent to COPD patient now requires a noninvasive home ventilator. Bilevel therapy with and without a rate would be in effective as patient requires a volume targeted mode. Ventilation is required to decrease the work of breathing and improve pulmonary status. Interruption of ventilator support would lead to decline of health status. Patient will benefit with trilogy at home. Prescription given (2) COPD exacerbation: Acute on chronic hypoxic, hypercapnic respiratory failure on chronic oxygen 2L and 3L via NC HS. Presented with COPD exacerbation Possible pneumonia. 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 Presented with hypercarbia and was placed on bipap which tolerated for several hours then denied once her breathing improved. Initially treated with Solumedrol 125mg IV, magnesium sulfate 1gm IV, hour long albuterol neb. Admission ABG on 3L oxygen: pH: 7.29, pCO2: 94, pO2: 105, HCO3: 44. Repeat ABG on 04/23/19 had improved with pH: 7.43, pCO2: 64, pO2: 89, HCO3: 41 while on 2L NC 04/22/19 CXR: Mild left lower lung opacity which may reflect pneumonia or atelectasis -04/25/19 Pt is clinically improved, less wheezing to auscultation, denies current SOB. - -Has received Solumedrol 40mg Q8H from 04/22/19 - 04/24/19 -04/25/19 started on prednisone 40mg daily -Levaquin IV x 3 doses and switched to oral Levaquin on 04/25/19 Last dose of p.o. Levaquin today 04/26/2019 -Duonebs -Continue home Symbicort -Home Spiriva will be resumed on discharge -Continue oxygen via NC at 2L during day and 3L HS -Pulmonology consult, appreciate recommendations Patient will benefit with Trilogy bilevel therapy ventilator at home Prescription given for trilogy Patient is discharged home with p.o. prednisone taper (3) Hypertension: Stable -Continue metoprolol, losartan (4) Chronic diastolic heart failure: Hx grade 1 diastolic failure 01/2019 echo: EF: 55-60%, moderate concentric LVH Euvolemic -Continue lasix/losartan (5) Dyslipidemia: -Continue atorvastatin (6) Fibromyalgia: -Continue Tylenol prn, Tramadol prn DVT Prophylaxis -Lovenox SQ Disposition: - PT eval recommends PT. Stable to be discharged home with above support Patient provided Rollator walker with seat, brakes and basket PCP follow up with Dr Moon on 05/01/19 at 1:45 PM Total Time Total Time Spent Total Time Spent (In Minutes): Approximately 45 minutes Total Time Includes: Examination of the Patient, Discharge Planning and Medication Reconciliation Discharge Plan Discharge Items Patient Disposition: Home - Home Health Services Reason For Visit: ACUTE ON CHRONIC RESPIRATORY FAILURE Discharge Diagnosis: COPD exacerbation/acute on chronic respiratory failure Discharge Goals: Decrease discomfort, Diagnostic testing and Therapeutic intervention Activity: Resume your previous activity Non-emergency contact: Primary Care Provider Call non-emergency contact if: you have any medication questions Follow-up/Referrals: Russ Moon MD [Primary Care Provider] - 05/01/19 1:45 pm Diet: Heart Healthy Addtl Provider Instructions: Continue to use Trilogy at home Pulmonology follow-up with Holden BAI in clinic in 1 to 2 weeks, please call office to schedule an appointment Prescriptions: New prednisone 20 mg tablet 40 mg PO UD Qty: 10 RF: 0 Continued magnesium oxide 400 mg magnesium Capsule 400 mg PO QAM RF: 0 tramadol 50 mg tablet 50 mg PO QID PRN (Reason: Pain) RF: 0 atorvastatin 40 mg Tablet 40 mg PO QAM RF: 0 acetaminophen [Tylenol Extra Strength] 500 mg Tablet 1,000 mg PO Q6H PRN (Reason: Pain) RF: 0 calcium carbonate [Tums] 200 mg calcium (500 mg) Tablet,Chewable 200 mg PO BID PRN (Reason: Indigestion) RF: 0 losartan 25 mg Tablet 25 mg PO QAM RF: 0 albuterol sulfate [Ventolin HFA] 90 mcg/actuation Hfa Aerosol Inhaler 2 puff INHALATION Q4H PRN (Reason: Shortness Of Breath Or Wheezing) RF: 0 Spiriva with HandiHaler 18 mcg Capsule, W/Inhalation Device 1 cap INHALATION QAM RF: 0 Symbicort 160-4.5 mcg/actuation Hfa Aerosol Inhaler 2 puff INHALATION BID RF: 0 diclofenac sodium [Voltaren] 1 % Gel 2 g TOPICAL QID PRN (Reason: Pain) RF: 0 docusate sodium [Colace] 100 mg capsule 100 mg PO BID PRN (Reason: Constipation) RF: 0 ranitidine HCl 150 mg Tablet 150 mg PO BID RF: 0 aspirin [Aspir-81] 81 mg Tablet,Delayed Release (Dr/Ec) 81 mg PO QAM RF: 0 ipratropium-albuterol 0.5 mg-3 mg(2.5 mg base)/3 mL Solution For Nebulization 3 ml INHALATION QID RF: 0 furosemide [Lasix] 40 mg Tablet 20 mg PO DAILY RF: 0 metoprolol succinate 50 mg tablet extended release 24 hr 50 mg PO DAILY RF: 0 pantoprazole 40 mg Tablet,Delayed Release (Dr/Ec) 40 mg PO DAILY RF: 0 Stand-Alone Forms: [facility] Discharge Orders: Discharge Order (Routine); Ordered 04/26/19 Ordered By: Flora Taylor Admission Data Admit Date/Time: 04/22/19 16:33 Attending Provider: Flora Taylor Admit Provider: Tip Vasquez Primary Care Provider: Russ Moon Other Providers: Tosin Jaquez ; Tip Vasquez ; Ravinder Chowdhury Service: Telemetry Medical
[2019-04-26] MEDS ORDERED: predniSONE 10 MG TABLET PO SCH (13:00)
[2019-04-26] MEDS: ACETAMINOPHEN 325 MG TAB PO PRN (13:18)
[2019-04-27] MEDS ORDERED: predniSONE 10 MG TABLET PO SCH (09:00)
== END 2019-04-26 13:47 | disposition home health service (06) | DRG 193 ==
LOC: ED 13:31 → SUATTDRO 16:33 → 2W 16:33
DX: Z51.81 Encounter for therapeutic drug level monitoring; J18.9 Pneumonia, unspecified organism; Z88.6 Allergy status to analgesic agent; Z88.8 Allergy status to other drugs, medicaments and biological substances; Z87.891 Personal history of nicotine dependence; M79.7 Fibromyalgia; J96.22 Acute and chronic respiratory failure with hypercapnia; R73.9 Hyperglycemia, unspecified; E78.5 Hyperlipidemia, unspecified; J44.1 Chronic obstructive pulmonary disease with (acute) exacerbation; K21.9 Gastro-esophageal reflux disease without esophagitis; I50.32 Chronic diastolic (congestive) heart failure; Z79.82 Long term (current) use of aspirin; Z99.81 Dependence on supplemental oxygen; J44.0 Chronic obstructive pulmonary disease with (acute) lower respiratory infection; Z79.899 Other long term (current) drug therapy; I11.0 Hypertensive heart disease with heart failure; E87.4 Mixed disorder of acid-base balance; J96.21 Acute and chronic respiratory failure with hypoxia

== ENCOUNTER 2019-06-06 12:45 | Inpatient (IN) ==
--- NOTE | 2019-06-06 13:24 | XRay Report ---
XR chest 1V portable CLINICAL HISTORY: Sepsis dyspnea COMPARISON STUDY: 04/22/2019 FINDINGS: Chronic atelectatic change left lung base. Lungs otherwise appear clear. Partial chronic calderon bluxation left shoulder. Lungs otherwise appear clear. IMPRESSION: Chronic change. No acute process. The above report was generated using voice recognition software. It may contain grammatical, syntax or spelling errors. Electronically signed by: Byron Reyes M.D. 06/06/2019 1:23 PM
[2019-06-06 13:31] LABS: Basophils # (auto) 0.02 K/uL (0-0.2); Basophils % (auto) 0.3 %; Eosinophils # (auto) 0.07 K/uL (0-0.5); Hematocrit (blood only) 43.7 % (37-47); Immature Granulocytes # (auto) 0.01 K/uL (0.00-0.02); Immature Granulocytes % (auto) 0.1 %; Lymphocytes # (auto) 0.95 K/uL (1.2-3.4); Lymphocytes % (auto) 13.3 %; Mean Corpuscular Hemoglobin 29.4 pg (25-34); Mean Corpuscular Hgb Conc 29.7 g/dL (32-36); Mean Corpuscular Volume 98.9 fL (80-100); Mean Platelet Volume 11.8 fL (7.4-10.4); Monocytes # (auto) 0.45 K/uL (0.11-0.59); Monocytes % (auto) 6.3 %; Neutrophils # (auto) 5.62 K/uL (1.4-6.5); Platelet Count 174 K/uL (130-400); RDW Coefficient of Variation 14.3 % (11.5-14.5); RDW Standard Deviation 51.4 fL (36.4-46.3); Red Blood Count 4.42 M/uL (4.2-5.4); White Blood Count 7.12 K/uL (4.8-10.8)
--- NOTE | 2019-06-06 13:43 | Emergency Department Note ---
Entered by Carisa Briscoe acting as a scribe for History of Present Illness General Chief complaint: Shortness of Breath/Dyspnea Time Seen by Provider: 06/06/19 12:56 Source: patient Mode of arrival: EMS Limitations: other (confusion) History of Present Illness Provider complaint: Shortness of breath Onset (ago): hour(s) (today) Location: chest Radiation: non-radiation Pain Consistency: + other (worsening) Quality: + other (shortness of breath) Associated symptoms: + confusion and + other (Additional symptoms: wheezing, spitting pink sputum, conversational dyspnea) Treatments prior to arrival: other (2 nitro sprays) The patient is a 73 year old female with a history of CHF, hypertension, COPD, dyslipidemia, GERD, fibromyalgia, basal cell carcinoma of the skin, and osteoporosis who presents to the Emergency Room with complaints of worsening shortness of breath starting today. Per nurse, EMS was at the patient's house [facility] this morning for an unclear reason. EMS reportedly did not bring her in at the time but bumped her oxygen from her normal 2L to 6L. The nurse states that the patient's neighbor then checked on the patient this afternoon and noted that she was confused, short of breath, wheezy, and spitting up pink sputum. She notes that EMS was called and administered the patient 2 nitro sprays prior to arrival. Per nurse, the patient is currently on 4L of oxygen and is conversationally dyspneic. HPI limited secondary to confusion. Home Medications Home Medications Medication Instructions Recorded Confirmed Type Spiriva with HandiHaler 1 cap INHALATION QAM 12/14/18 06/06/19 History Symbicort 2 puff INHALATION BID 12/14/18 06/06/19 History acetaminophen [Tylenol Extra 1,000 mg PO Q6H PRN 12/14/18 06/06/19 History Strength] albuterol sulfate [Ventolin HFA] 2 puff INHALATION Q4H PRN 12/14/18 06/06/19 History atorvastatin 40 mg PO QAM 12/14/18 06/06/19 History calcium carbonate [Tums] 200 mg PO BID PRN 12/14/18 06/06/19 History diclofenac sodium [Voltaren] 2 g TOPICAL QID PRN 12/14/18 06/06/19 History losartan 25 mg PO QAM 12/14/18 06/06/19 History magnesium oxide 400 mg PO QAM 02/13/19 06/06/19 History aspirin [Aspir-81] 81 mg PO QAM 03/31/19 06/06/19 History docusate sodium [Colace] 100 mg PO BID PRN 03/31/19 06/06/19 History ranitidine HCl 150 mg PO BID 03/31/19 06/06/19 History furosemide [Lasix] 20 mg PO DAILY 04/22/19 06/06/19 History ipratropium-albuterol 3 ml INHALATION QID 04/22/19 06/06/19 History metoprolol succinate 50 mg PO DAILY 04/22/19 06/06/19 History pantoprazole 40 mg PO DAILY 04/22/19 06/06/19 History Allergies Allergy/AdvReac Type Severity Reaction Status Date / Time duloxetine [From Cymbalta] Allergy Rash Verified 06/06/19 14:39 naproxen AdvReac Mild GI Verified 06/06/19 14:39 SYMPTOMS-PT DENIES Past Med/Surg History Medical History Multiple fractures of ribs of left side (Resolved) Chronic diastolic heart failure (Chronic) Chronic respiratory failure with hypoxia, on home O2 therapy (Chronic) OXYGEN 2L/MIN DAYTIME/3L/MIN HS VIA NC Hypertension (Chronic) COPD (chronic obstructive pulmonary disease) (Chronic) On 07/28/15 14:30 Verenice Guillen wrote "severity to be determined " Dyslipidemia (Chronic) GERD (gastroesophageal reflux disease) (Chronic) Fibromyalgia (Chronic) BCC (basal cell carcinoma of skin) (Chronic) "s/p MOHS surgery" Osteoporosis (Chronic) Sinus tachycardia (Chronic) SOB (shortness of breath) on exertion Surgical History Status post appendectomy (Chronic) Status post hysterectomy (Chronic) Status post repair of ventral hernia (Chronic) Hx of cataract surgery (Chronic) S/P Mohs surgery for basal cell carcinoma (Chronic) Family History Grandfather (Maternal) Family hx of colon cancer Father FH: kidney cancer Other Kidney disease Lung disease Social History Preferred Language: Nepalese Communication Ability: Effective Junior Bookkeeper Required: No Beliefs That Will Affect Care: None marital status: / Current Living Situation: Alone current occupational status: retired Feels Safe at Home: Yes Smoking Status: Former smoker Tobacco Type: cigarettes ; Smoking End Date: unsure of quit date, pt does not smell like smoke ; Second Hand Exposure: No ; Hx Alcohol Use: No Hx Substance Use: No Review of Systems Other (Limited secondary to confusion) Physical Exam Vital Signs Vital Signs - 24 hr 06/06/19 12:38 06/06/19 12:59 06/06/19 13:00 Temperature Temperature Source Sepsis Recent Fever Within 48 Hours Sepsis Action Taken by Nursing Fraction of Inspired Oxygen - Titration 30 Pulse Oximetry Post Tiitration 95 Pulse Rate 95 H 92 H Pulse Rate from SpO2 Sensor 94 H 93 H Pulse Rhythm Pulse Strength Respiratory Rate 22 24 Respiratory Effort / Characteristics Spontaneous Labored Respiratory Depth Respiratory Pattern Blood Pressure 116/53 L 83/61 L Blood Pressure Mean 74 68 Blood Pressure Position Pulse Oximetry 97 98 Oxygen Delivery Method BiPAP Fraction of Inspired Oxygen SaO2/FiO2 Ratio 06/06/19 13:04 06/06/19 13:15 06/06/19 13:30 Temperature 37.4 C Temperature Source Oral Sepsis Recent Fever Within 48 Hours No Sepsis Action Taken by Nursing No Action Required Fraction of Inspired Oxygen - Titration Pulse Oximetry Post Tiitration Pulse Rate 97 H 92 H 88 Pulse Rate from SpO2 Sensor 92 H 89 Pulse Rhythm Regular Pulse Strength Normal Respiratory Rate 18 25 H 21 Respiratory Effort / Characteristics Non-Labored Spontaneous Respiratory Depth Normal Normal Respiratory Pattern Regular Tachypnea Blood Pressure 66/43 L 112/64 116/63 Blood Pressure Mean 50 80 80 Blood Pressure Position Lying Pulse Oximetry 98 94 91 Oxygen Delivery Method BiPAP Fraction of Inspired Oxygen 30 40 SaO2/FiO2 Ratio 326 06/06/19 13:45 06/06/19 14:00 06/06/19 14:15 Temperature Temperature Source Sepsis Recent Fever Within 48 Hours Sepsis Action Taken by Nursing Fraction of Inspired Oxygen - Titration Pulse Oximetry Post Tiitration Pulse Rate 84 82 81 Pulse Rate from SpO2 Sensor 84 82 80 Pulse Rhythm Pulse Strength Respiratory Rate 21 20 20 Respiratory Effort / Characteristics Respiratory Depth Respiratory Pattern Blood Pressure 119/59 L 112/61 125/64 Blood Pressure Mean 79 78 84 Blood Pressure Position Pulse Oximetry 92 92 92 Oxygen Delivery Method Fraction of Inspired Oxygen SaO2/FiO2 Ratio 06/06/19 14:30 06/06/19 14:40 06/06/19 14:45 Temperature Temperature Source Sepsis Recent Fever Within 48 Hours Sepsis Action Taken by Nursing Fraction of Inspired Oxygen - Titration Pulse Oximetry Post Tiitration Pulse Rate 75 76 77 Pulse Rate from SpO2 Sensor 75 71 77 Pulse Rhythm Pulse Strength Respiratory Rate 18 19 22 Respiratory Effort / Characteristics Respiratory Depth Respiratory Pattern Blood Pressure 123/66 114/60 Blood Pressure Mean 85 78 Blood Pressure Position Pulse Oximetry 94 94 94 Oxygen Delivery Method Fraction of Inspired Oxygen SaO2/FiO2 Ratio 06/06/19 15:00 06/06/19 15:15 06/06/19 15:30 Temperature Temperature Source Sepsis Recent Fever Within 48 Hours Sepsis Action Taken by Nursing Fraction of Inspired Oxygen - Titration Pulse Oximetry Post Tiitration Pulse Rate 74 74 77 Pulse Rate from SpO2 Sensor 73 72 77 Pulse Rhythm Pulse Strength Respiratory Rate 19 20 17 Respiratory Effort / Characteristics Respiratory Depth Respiratory Pattern Blood Pressure 126/70 112/78 Blood Pressure Mean 88 89 Blood Pressure Position Pulse Oximetry 93 94 94 Oxygen Delivery Method Fraction of Inspired Oxygen SaO2/FiO2 Ratio 06/06/19 15:31 06/06/19 15:45 06/06/19 16:00 Temperature Temperature Source Sepsis Recent Fever Within 48 Hours Sepsis Action Taken by Nursing Fraction of Inspired Oxygen - Titration Pulse Oximetry Post Tiitration Pulse Rate 77 77 76 Pulse Rate from SpO2 Sensor 78 77 77 Pulse Rhythm Pulse Strength Respiratory Rate 21 21 21 Respiratory Effort / Characteristics Respiratory Depth Respiratory Pattern Blood Pressure 132/66 118/98 Blood Pressure Mean 88 104 Blood Pressure Position Pulse Oximetry 96 95 97 Oxygen Delivery Method Fraction of Inspired Oxygen SaO2/FiO2 Ratio 06/06/19 16:01 Temperature Temperature Source Sepsis Recent Fever Within 48 Hours Sepsis Action Taken by Nursing Fraction of Inspired Oxygen - Titration Pulse Oximetry Post Tiitration Pulse Rate 85 Pulse Rate from SpO2 Sensor 85 Pulse Rhythm Pulse Strength Respiratory Rate 24 Respiratory Effort / Characteristics Respiratory Depth Respiratory Pattern Blood Pressure 152/75 H Blood Pressure Mean 100 Blood Pressure Position Pulse Oximetry 93 Oxygen Delivery Method Fraction of Inspired Oxygen SaO2/FiO2 Ratio GENERAL: Patient is awake and alert. She is very anxious appearing and appears to be in significant respiratory distress. EYES: The conjunctivae are clear. The pupils are round and reactive. EARS, NOSE, MOUTH AND THROAT: The nose is without any evidence of any deformity. Mucous membranes are moist tongue is midline NECK: The neck is nontender and supple. RESPIRATORY: Shallow respirations were noted. There was abdominal breathing as well as significant conversational dyspnea. CARDIOVASCULAR: Regular rate and rhythm noted there no murmurs rubs or gallops normal S1 normal S2 GASTROINTESTINAL: The abdomen is soft. Bowel sounds are present in all quadrants. Abdomen is nontender MUSCULOSKELETAL/EXTREMITIES: There is no evidence of gross deformity full range of motion is noted in the hips and shoulders SKIN: There is no obvious evidence of any rash. Trace pedal edema was noted bilaterally peer NEUROLOGIC: Patient is awake and oriented to person and place but not time or situation. Course 1302: The patient was evaluated in room A12B, and a complete history and physical examination were performed. 1522: I reviewed the patient's case with Ana Laura Enriquez PA-C. Sommer will evaluate the patient for further management. An ABG was ordered. Consultations Consultation #1: I reviewed the patient's case with Ana Laura Enriquez PA-C. Sommer will evaluate the patient for further management. An ABG was ordered. Time: 15:22 Administered Medications Albuterol (Duoneb) 3 ml NEB QIDR UCHE Stop: 07/06/19 18:59 Last Admin: 06/06/19 16:59 Dose: 3 ml Documented by: [id number] Medical Decision Making Differential Diagnosis Differential diagnosis: Etiologies such as infections, reactive airway disease, pneumonia, pneumothorax, COPD, CHF, cardiac ischemia, pulmonary embolism, musculoskeletal, gastrointesti nal, as well as others were entertained. Medical Records Attestation: I reviewed the patient's medical records. Home Medications Current Medication List: was personally reviewed by me Laboratory Data Attestation: I reviewed the patient's lab results. Result diagrams: 06/06/19 13:15 06/06/19 13:15 Lab Results 06/06/19 06/06/19 06/06/19 Range/Units 13:15 13:15 13:15 WBC 7.12 (4.8-10.8) K/uL RBC 4.42 (4.2-5.4) M/uL Hgb 13.0 (12.0-16.0) g/dL Hct 43.7 (37-47) % MCV 98.9 (80-100) fL MCH 29.4 (25-34) pg MCHC 29.7 L (32-36) g/dL RDW Std Deviation 51.4 H (36.4-46.3) fL RDW Coeff of Reg 14.3 (11.5-14.5) % Plt Count 174 (130-400) K/uL MPV 11.8 H (7.4-10.4) fL Immature Gran % (Auto) 0.1 % Neut % (Auto) 79.0 % Lymph % (Auto) 13.3 % Moore % (Auto) 6.3 % Eos % (Auto) 1.0 % Baso % (Auto) 0.3 % Immature Gran # (Auto) 0.01 (0.00-0.02) K/uL Neut # (Auto) 5.62 (1.4-6.5) K/uL Lymph # (Auto) 0.95 L (1.2-3.4) K/uL Moore # (Auto) 0.45 (0.11-0.59) K/uL Eos # (Auto) 0.07 (0-0.5) K/uL Baso # (Auto) 0.02 (0-0.2) K/uL ESR 41 H (0-21) mm/hr PT 10.4 (9.0-12.0) Seconds INR 1.0 (0.9-1.1) APTT 24.5 (21.0-31.0) Seconds PTT Ratio 0.9 ABG pH (7.35-7.45) ABG pCO2 (35-46) mmHg ABG pO2 (80-95) mm/Hg ABG HCO3 (19-24) mmol/L ABG O2 Saturation (90-95) % ABG Base Excess (-9-1.8) mEq/L Clarence Test (Pos) VBG pH (7.36-7.41) VBG pCO2 (38-50) mmHg VBG pO2 mmHg VBG HCO3 mmol/L VBG O2 Saturation % VBG Base Excess mEq/L Barometric Pressure mm/Hg Oxygen Given Sodium (136-145) mmol/L Potassium (3.5-5.1) mmol/L Chloride (98-107) mmol/L Carbon Dioxide (21-32) mmol/L Anion Gap (3-11) BUN (7-18) mg/dl Creatinine (0.6-1.2) mg/dl Est Cr Clr Drug Dosing ml/min Est GFR ( Amer) Est GFR (Non-Af Amer) BUN/Creatinine Ratio (10-20) Glucose (70-99) mg/dl Lactate (0.4-2.0) mmol/L Calcium (8.5-10.1) mg/dl Magnesium (1.8-2.4) mg/dl Total Bilirubin (0.2-1) mg/dl AST (15-37) U/L ALT (12-78) U/L Alkaline Phosphatase (45-117) U/L Troponin I (0-0.045) ng/ml C-Reactive Protein (0-0.29) mg/dl NT-Pro-B Natriuret Pep (0-900) pg/ml Total Protein (6.4-8.2) gm/dl Albumin (3.4-5.0) gm/dl Globulin (2.5-4.0) gm/dl Albumin/Globulin Ratio (0.9-2) Procalcitonin (0-0.5) ng/ml 06/06/19 06/06/19 06/06/19 Range/Units 13:15 14:06 14:06 WBC (4.8-10.8) K/uL RBC (4.2-5.4) M/uL Hgb (12.0-16.0) g/dL Hct (37-47) % MCV (80-100) fL MCH (25-34) pg MCHC (32-36) g/dL RDW Std Deviation (36.4-46.3) fL RDW Coeff of Reg (11.5-14.5) % Plt Count (130-400) K/uL MPV (7.4-10.4) fL Immature Gran % (Auto) % Neut % (Auto) % Lymph % (Auto) % Moore % (Auto) % Eos % (Auto) % Baso % (Auto) % Immature Gran # (Auto) (0.00-0.02) K/uL Neut # (Auto) (1.4-6.5) K/uL Lymph # (Auto) (1.2-3.4) K/uL Moore # (Auto) (0.11-0.59) K/uL Eos # (Auto) (0-0.5) K/uL Baso # (Auto) (0-0.2) K/uL ESR (0-21) mm/hr PT (9.0-12.0) Seconds INR (0.9-1.1) APTT (21.0-31.0) Seconds PTT Ratio ABG pH (7.35-7.45) ABG pCO2 (35-46) mmHg ABG pO2 (80-95) mm/Hg ABG HCO3 (19-24) mmol/L ABG O2 Saturation (90-95) % ABG Base Excess (-9-1.8) mEq/L Clarence Test (Pos) VBG pH (7.36-7.41) VBG pCO2 (38-50) mmHg VBG pO2 mmHg VBG HCO3 mmol/L VBG O2 Saturation % VBG Base Excess mEq/L Barometric Pressure mm/Hg Oxygen Given Sodium 141 (136-145) mmol/L Potassium 4.3 (3.5-5.1) mmol/L Chloride 87 L (98-107) mmol/L Carbon Dioxide 55 H* (21-32) mmol/L Anion Gap -2.0 L (3-11) BUN 16 (7-18) mg/dl Creatinine 0.74 (0.6-1.2) mg/dl Est Cr Clr Drug Dosing 62.7 ml/min Est GFR ( Amer) 91.9 Est GFR (Non-Af Amer) 79.3 BUN/Creatinine Ratio 21.8 H (10-20) Glucose 170 H (70-99) mg/dl Lactate 0.7 (0.4-2.0) mmol/L Calcium 9.7 (8.5-10.1) mg/dl Magnesium 2.7 H (1.8-2.4) mg/dl Total Bilirubin 1.1 H (0.2-1) mg/dl AST 16 (15-37) U/L ALT 17 (12-78) U/L Alkaline Phosphatase 70 (45-117) U/L Troponin I < 0.015 (0-0.045) ng/ml C-Reactive Protein < 0.29 (0-0.29) mg/dl NT-Pro-B Natriuret Pep 271 (0-900) pg/ml Total Protein 7.1 (6.4-8.2) gm/dl Albumin 3.8 (3.4-5.0) gm/dl Globulin 3.3 (2.5-4.0) gm/dl Albumin/Globulin Ratio 1.2 (0.9-2) Procalcitonin < 0.05 (0-0.5) ng/ml 06/06/19 06/06/19 Range/Units 14:07 15:46 WBC (4.8-10.8) K/uL RBC (4.2-5.4) M/uL Hgb (12.0-16.0) g/dL Hct (37-47) % MCV (80-100) fL MCH (25-34) pg MCHC (32-36) g/dL RDW Std Deviation (36.4-46.3) fL RDW Coeff of Reg (11.5-14.5) % Plt Count (130-400) K/uL MPV (7.4-10.4) fL Immature Gran % (Auto) % Neut % (Auto) % Lymph % (Auto) % Moore % (Auto) % Eos % (Auto) % Baso % (Auto) % Immature Gran # (Auto) (0.00-0.02) K/uL Neut # (Auto) (1.4-6.5) K/uL Lymph # (Auto) (1.2-3.4) K/uL Moore # (Auto) (0.11-0.59) K/uL Eos # (Auto) (0-0.5) K/uL Baso # (Auto) (0-0.2) K/uL ESR (0-21) mm/hr PT (9.0-12.0) Seconds INR (0.9-1.1) APTT (21.0-31.0) Seconds PTT Ratio ABG pH 7.25 L (7.35-7.45) ABG pCO2 129 H (35-46) mmHg ABG pO2 77 L (80-95) mm/Hg ABG HCO3 56 H (19-24) mmol/L ABG O2 Saturation 93.2 (90-95) % ABG Base Excess 21.9 H (-9-1.8) mEq/L Clarence Test Pos (Pos) VBG pH 7.25 L (7.36-7.41) VBG pCO2 131 H (38-50) mmHg VBG pO2 51 mmHg VBG HCO3 55 mmol/L VBG O2 Saturation 84.7 % VBG Base Excess 21.5 mEq/L Barometric Pressure 733.3 733.4 mm/Hg Oxygen Given 40% FIO2 Sodium (136-145) mmol/L Potassium (3.5-5.1) mmol/L Chloride (98-107) mmol/L Carbon Dioxide (21-32) mmol/L Anion Gap (3-11) BUN (7-18) mg/dl Creatinine (0.6-1.2) mg/dl Est Cr Clr Drug Dosing ml/min Est GFR ( Amer) Est GFR (Non-Af Amer) BUN/Creatinine Ratio (10-20) Glucose (70-99) mg/dl Lactate (0.4-2.0) mmol/L Calcium (8.5-10.1) mg/dl Magnesium (1.8-2.4) mg/dl Total Bilirubin (0.2-1) mg/dl AST (15-37) U/L ALT (12-78) U/L Alkaline Phosphatase (45-117) U/L Troponin I (0-0.045) ng/ml C-Reactive Protein (0-0.29) mg/dl NT-Pro-B Natriuret Pep (0-900) pg/ml Total Protein (6.4-8.2) gm/dl Albumin (3.4-5.0) gm/dl Globulin (2.5-4.0) gm/dl Albumin/Globulin Ratio (0.9-2) Procalcitonin (0-0.5) ng/ml Imaging Data Radiologist's Impression: Radiology results as stated below per my review and the radiologist's interpretation: XR chest 1V portable CLINICAL HISTORY: Sepsis dyspnea COMPARISON STUDY: 04/22/2019 FINDINGS: Chronic atelectatic change left lung base. Lungs otherwise appear c lear. Partial chronic subluxation left shoulder. Lungs otherwise appear clear. IMPRESSION: Chronic change. No acute process. The above report was generated using voice recognition software. It may contain grammatical, syntax or spelling errors. Electronically signed by: Byron Reyes M.D. 06/06/2019 1:23 PM ECG Data Attestation: I personally reviewed and interpreted this ECG as follows: Indication: SOB/dyspnea Rate (beats per minute): 98 Rhythm: normal sinus Findings: + other (no acute ST segment); no ectopy Comparison ECG Date: from (04/22/19) Change: no significant change Blood Pressure Blood Pressure Findings: Low blood pressure Blood Pressure Disposition: further management by hospitalist MDM Narrative The patient is a 73-year-old female who presented to the emergency department for an evaluation of difficulty breathing. The patient was evaluated by the prehospital personnel earlier in the day. She had her oxygen increased but her symptoms did not improve so she was brought to the emergency department by the prehospital personnel. The patient was altered and appeared to be in respiratory distress. It was felt that this was secondary to CO2 retention. The patient was placed on BiPAP. Her respiratory status improved. She was found to be in respiratory acidosis with significant CO2 retention. I discussed the patient's laboratory and radiographic studies with her. I discussed her case with the on-call [facility] hospitalist group. They have agreed to evaluate the patient in the emergency department for further management disposition. The patient was not found any signs of infection. She initially was treated with nitroglycerin for presumed pulmonary edema by the plant mechanic. Her blood pressure improved significantly while she was observed in the emergency department. Impression & Plan Respiratory acidosis, Altered mental status, CO2 narcosis, Respiratory failure Critical Care Time Critical Care Time: Yes Total Critical Care Time: 60 I have personally spent greater than 60 minutes of critical care time in the direct management of this patient. This includes bedside care, interpretation of diagnostic studies, and testing, discussion with consultants, patient, and family members, and other required patient management activities. This 60 minutes is in excess of all separately billable procedures. Discharge Plan Visit Data Chief Complaint: Shortness of Breath/Dyspnea Other Complaint: Confusion ED Provider: Ravinder Mendez Discharge Problem: Respiratory acidosis, Altered mental status, CO2 narcosis, Respiratory failure Patient Disposition: Admitted As Inpatient Discharge Problem: Altered mental status Qualifiers: Altered mental status type: unspecified Qualified Code(s): R41.82 - Altered mental status, unspecified Respiratory failure Qualifiers: Chronicity: acute Respiratory failure complication: hypercapnia Qualified Code(s): J96.02 - Acute respiratory failure with hypercapnia The scribe's documentation has been prepared under my direction and personally reviewed by me in its entirety. I confirm that the note above accurately reflects all work, treatment, procedures, and medical decision making performed by me.
[2019-06-06 13:46] LABS: Partial Thromboplastin Ratio 0.9; Partial Thromboplastin Time 24.5 Seconds (21.0-31.0); Prothrombin Time 10.4 Seconds (9.0-12.0)
[2019-06-06 14:08] LABS: Alanine Aminotransferase 17 U/L (12-78); Albumin Globulin Ratio 1.2 (0.9-2); Albumin Level 3.8 gm/dl (3.4-5.0); Alkaline Phosphatase 70 U/L (45-117); Aspartate Aminotransferase 16 U/L (15-37); BUN Creatinine Ratio 21.8 (10-20); Bilirubin,Total 1.1 mg/dl (0.2-1); Blood Urea Nitrogen 16 mg/dl (7-18); C Reactive Protein < 0.29 mg/dl (0-0.29); Calcium 9.7 mg/dl (8.5-10.1); Chloride 87 mmol/L (98-107); Creatinine Clr Calc Pharmacy 62.7 ml/min; Est GFR (African American) 91.9; Est GFR (Non-African American) 79.3; Globulin 3.3 gm/dl (2.5-4.0); Glucose 170 mg/dl (70-99); Magnesium 2.7 mg/dl (1.8-2.4); NT Pro B Type Natriuretic Pept 271 pg/ml (0-900); Potassium 4.3 mmol/L (3.5-5.1); Sodium 141 mmol/L (136-145); Total Protein 7.1 gm/dl (6.4-8.2); Troponin I < 0.015 ng/ml (0-0.045)
[2019-06-06 14:17] LABS: Carbon Dioxide 55 mmol/L (21-32)
[2019-06-06 14:33] LABS: Base Excess VBG 21.5 mEq/L; Oxygen Saturation VBG 84.7 %; pH VBG 7.25 (7.36-7.41)
[2019-06-06 16:02] LABS: Base Excess ABG 21.9 mEq/L (-9-1.8); HCO3 ABG 56 mmol/L (19-24); Oxygen Saturation ABG 93.2 % (90-95); PCO2 ABG 129 mmHg (35-46); PO2 ABG 77 mm/Hg (80-95); pH ABG 7.25 (7.35-7.45)
[2019-06-06 16:10] LABS: Allen Test Pos (Pos)
--- NOTE | 2019-06-06 16:14 | History & Physical Report ---
Date of Service June 06, 2019 Assessment & Plan (1) Acute and chronic respiratory failure: Severe COPD and h/o smoking presents with hypercapneic respiratory failure. Son reports she has not likely been using her Trilogy mask she was sent home with at discharge one month ago. History is otherwise unobtainable from patient who is confused and on BIPAP. Initial ABG results today were 7.25/129/77 with a serum bicarb of 55, and this was after 2 hours on BiPAP at 14/7. Baseline CO2 appears to be around 60 and bicarb around 40. BiPAP was increased to 20/8 and then further increased by professional healthcare representative who was called to the bedside to evaluate for intubation. She appeared to be more oriented and agitated; will continue BiPAP trial and repeat ABG in 2 hours. Plan was discussed with her son who is power of regulatory attorney. Presumed COPD exacerbation with the no history of recent infectious symptoms per family, clear chest x-ray and no other clinical evidence of volume overload. We will start her on Solu- Medrol 40 IV every 6 and scheduled duo nebs. Will add Levaquin for severe COPD exacerbation with pseuodomonas risk factors. Case was discussed with Dr. Hightower from pulmonology who will be consulted. NPO while respiratory status is tenuous. (2) Respiratory acidosis: 2/2 CO2 retention from COPD. Cont noninvasive ventilation trial above. (3) COPD exacerbation: Plan as above. (4) Hypertension: Cont PO home meds including losartan and Toprol XL. (5) Chronic diastolic heart failure: appears euvolemic to dehydrated on exam. Lasix is prescribed PRN, uncertain frequency she is taking at home. CXR clear. Will hold for now. (6) GERD (gastroesophageal reflux disease): Cont Protonix. Hold ranitidine to minimize PO. If she needs medication for breakthrough, would consider Pepcid IV (7) Fibromyalgia: tramadol PRN (8) DVT prophylaxis: Lovenox Full Code as discussed with son who is POA. He confirmed this status and we discussed the plan. I brought him over to her at bedside. Dispo-PCU on BIPAP DO Ana Laura Adams Hospitalist History of Present Illness Chief Complaint: short of breath Primary Care Provider: Russ Moon MD 73-year-old female with multiple recent hospitalizations for acute respiratory failure secondary to COPD exacerbation presents after being found at home by family short of breath. She was recently admitted 04/22/2019 through 04/26/2019 and was sent home on trilogy, a noninvasive home ventilator. She has a history of bronchoscopy on 04/[address] Chowdhury which revealed chronic mucopurulent bronchitis with mucoid impaction and dynamic airway collapse involving the distal third of trachea and left tracheobronchial tree. She was also given a prednisone taper at time of discharge and had been treated with Levaquin during the hospitalization. At this time she is encephalopathic likely secondary to hypercarbia, and history is limited secondary to this and the BiPAP mask that she is wearing. No family members are present. Review of systems is unable to be obtained. Allergies Allergy/AdvReac Type Severity Reaction Status Date / Time duloxetine [From Cymbalta] Allergy Rash Verified 06/06/19 14:39 naproxen AdvReac Mild GI Verified 06/06/19 14:39 SYMPTOMS-PT DENIES Home Medications Home Medications Medication Instructions Recorded Confirmed Type Spiriva with HandiHaler 1 cap INHALATION QAM 12/14/18 06/06/19 History Symbicort 2 puff INHALATION BID 12/14/18 06/06/19 History acetaminophen [Tylenol Extra 1,000 mg PO Q6H PRN 12/14/18 06/06/19 History Strength] albuterol sulfate [Ventolin HFA] 2 puff INHALATION Q4H PRN 12/14/18 06/06/19 History atorvastatin 40 mg PO QAM 12/14/18 06/06/19 History calcium carbonate [Tums] 200 mg PO BID PRN 12/14/18 06/06/19 History diclofenac sodium [Voltaren] 2 g TOPICAL QID PRN 12/14/18 06/06/19 History losartan 25 mg PO QAM 12/14/18 06/06/19 History magnesium oxide 400 mg PO QAM 02/13/19 06/06/19 History aspirin [Aspir-81] 81 mg PO QAM 03/31/19 06/06/19 History docusate sodium [Colace] 100 mg PO BID PRN 03/31/19 06/06/19 History ranitidine HCl 150 mg PO BID 03/31/19 06/06/19 History furosemide [Lasix] 20 mg PO DAILY 04/22/19 06/06/19 History ipratropium-albuterol 3 ml INHALATION QID 04/22/19 06/06/19 History metoprolol succinate 50 mg PO DAILY 04/22/19 06/06/19 History pantoprazole 40 mg PO DAILY 04/22/19 06/06/19 History Past Med/Surg History Medical History Multiple fractures of ribs of left side (Resolved) Chronic diastolic heart failure (Chronic) Chronic respiratory failure with hypoxia, on home O2 therapy (Chronic) OXYGEN 2L/MIN DAYTIME/3L/MIN HS VIA NC Hypertension (Chronic) COPD (chronic obstructive pulmonary disease) (Chronic) On 07/28/15 14:30 Verenice Guillen wrote "severity to be determined " Dyslipidemia (Chronic) GERD (gastroesophageal reflux disease) (Chronic) Fibromyalgia (Chronic) BCC (basal cell carcinoma of skin) (Chronic) "s/p MOHS surgery" Osteoporosis (Chronic) Sinus tachycardia (Chronic) SOB (shortness of breath) on exertion Surgical History Status post appendectomy (Chronic) Status post hysterectomy (Chronic) Status post repair of ventral hernia (Chronic) Hx of cataract surgery (Chronic) S/P Mohs surgery for basal cell carcinoma (Chronic) Family History Grandfather (Maternal) Family hx of colon cancer Father FH: kidney cancer Other Kidney disease Lung disease Social History Preferred Language: Japanese Communication Ability: Effective Plaster Die Maker Required: No Beliefs That Will Affect Care: None marital status: / Current Living Situation: Alone current occupational status: retired Feels Safe at Home: Yes Smoking Status: Former smoker Tobacco Type: cigarettes ; Smoking End Date: unsure of quit date, pt does not smell like smoke ; Second Hand Exposure: No ; Hx Alcohol Use: No Hx Substance Use: No Review of Systems Review of Systems: Unobtainable due to cognitive status Physical Exam Physical Exam: CONSTITUTIONAL: WNWD, vitals as above, tearful, on BIPAP, unkempt appearance, confused. Exam limited as patient is unable to follow instructions. EYES: pupils are equal and round bilaterally, normal conjunctivae, no scleral icterus ENT: BIPAP in place, poor dentition RESPIRATORY: mild wheezes, no crackles, no respiratory distress while on bipap. CARDIOVASCULAR: regular rate and rhythm, S1 and 2 heard without murmurs, gallops or rubs, no peripheral edema GASTROINTESTINAL: (limited exam as patient refused to lay on her back for exam) soft, nontender, nondistended, protuberant obese MUSCULOSKELETAL: head is normocephalic and atraumatic, moving all extremities equally SKIN: warm and dry, soles of feet are caked with grime and dirt NEUROLOGIC: confused PSYCHIATRIC: alert, unable to follow instructions. Results & Data Vital Signs (Past 12 Hours) Vital Signs Temp Pulse Resp BP Pulse Ox 06/06/19 13:15 92 H 21 96 06/06/19 13:04 37.4 C 97 H 18 66/43 L 97 Laboratory Results Short CBC 06/06/19 Range/Units 13:15 WBC 7.12 (4.8-10.8) K/uL Hgb 13.0 (12.0-16.0) g/dL Hct 43.7 (37-47) % Plt Count 174 (130-400) K/uL BMP 06/06/19 13:15 Sodium 141 Potassium 4.3 Chloride 87 L Carbon Dioxide 55 H* BUN 16 Creatinine 0.74 Glucose 170 H Calcium 9.7 Cardiac Enzymes 06/06/19 Range/Units 13:15 Troponin I < 0.015 (0-0.045) ng/ml Liver Function 06/06/19 Range/Units 13:15 Total Bilirubin 1.1 H (0.2-1) mg/dl AST 16 (15-37) U/L ALT 17 (12-78) U/L Alkaline Phosphatase 70 (45-117) U/L Albumin 3.8 (3.4-5.0) gm/dl Diagnostic Findings XR chest 1V portable CLINICAL HISTORY: Sepsis dyspnea COMPARISON STUDY: 04/22/2019 FINDINGS: Chronic atelectatic change left lung base. Lungs otherwise appear clear. Partial chronic subluxation left shoulder. Lungs otherwise appear clear. IMPRESSION: Chronic change. No acute process. ECG Rhythm: normal sinus (normal rate) Code Status & VTE Plan Code Status Full code VTE Prophylaxis Plan VTE Prophylaxis will be ordered: Yes (1) Acute and chronic respiratory failure Respiratory failure complication: hypoxia and hypercapnia Qualified Code(s): J96.21 - Acute and chronic respiratory failure with hypoxia; J96.22 - Acute and chronic respiratory failure with hypercapnia (2) Hypertension Hypertension type: unspecified Qualified Code(s): I10 - Essential (primary) hypertension
[2019-06-06] MEDS ORDERED: ALBUT/IPRATROP 3MG/0.5MG NEB 3 ML VIAL ONE (16:45)
[2019-06-06] MEDS: ALBUT/IPRATROP 3MG/0.5MG NEB 3 ML VIAL NEB SCH ×2 (16:59→19:26)
--- NOTE | 2019-06-06 17:34 | Pulmonary Consultation ---
Date of Consultation June 06, 2019 Assessment & Plan (1) COPD exacerbation: Patient appears to be in acute on chronic hypoxemic/hypercapnic respiratory failure secondary to COPD exacerbation. Unclear if this is secondary to medical non-compliance with her trilogy machine/medications versus progression of her underlying disease. She seems to have numerous exacerbations more frequently. At this time I would recommend starting her on 40 mg twice daily of Solu-Medrol. Start her on ceftriaxone and azithromycin. Continue duo nebs every 4 hours as needed. Repeat blood gas in 1 and 1/2 hours. Continue BiPAP at 16/8 with a respiratory rate of 22. Minimize FiO2 as much as possible. She is at risk for worsening hypercapnia if she develops hyperoxia. I would keep her sats at 88 to 90%. Avoid all mind altering agents if possible. When she is out of her acute exacerbation, I would recommend starting her on Roflumilast if there is no obvious contraindication. She likely has a component of obesity hypoventilation syndrome which is also playing a role in her hypercapnia and hypoxemia. Weight loss would be prudent. Thank you for this consultation. We will continue to follow along with you. Present on Admission?: Yes (2) Acute on chronic respiratory failure with hypoxemia: Present on Admission?: Yes (3) Acute and chronic respiratory failure with hypercapnia: Present on Admission?: Yes (4) Obesity hypoventilation syndrome: History of Present Illness History of Present Illness 73-year-old female with a history of COPD and frequent exacerbations who was apparently found at home short of breath. Much of the history is obtained from the chart as the patient is not a very good historian. Patient says that she thinks she was at home and then the next thing she remembers is being brought here. In the emergency department she was found to be short of breath and placed on BiPAP. She is saturating well on 30% FiO2 and 16/8 BiPAP. Her blood gas on BiPAP 7.25/1 after about an hour and a half. Per the chart review she appears to be on a noninvasive home ventilator. She was recently bronched by Dr. Chowdhury which demonstrated mucopurulent bronchitis and mucoid impactions. There is also some excessive dynamic airway collapse. She was given some prednisone and Levaquin at that time. She was able to tell me that she used albuterol twice today. She denies any chest pain. She does appear to be quite jittery at the moment. She seems to be picking at the EKG leads on her chest. Allergies Allergy/AdvReac Type Severity Reaction Status Date / Time duloxetine [From Cymbalta] Allergy Rash Verified 06/06/19 14:39 naproxen AdvReac Mild GI Verified 06/06/19 14:39 SYMPTOMS-PT DENIES Home Medications Home Medications Medication Instructions Recorded Confirmed Type Spiriva with HandiHaler 1 cap INHALATION QAM 12/14/18 06/06/19 History Symbicort 2 puff INHALATION BID 12/14/18 06/06/19 History acetaminophen [Tylenol Extra 1,000 mg PO Q6H PRN 12/14/18 06/06/19 History Strength] albuterol sulfate [Ventolin HFA] 2 puff INHALATION Q4H PRN 12/14/18 06/06/19 History atorvastatin 40 mg PO QAM 12/14/18 06/06/19 History calcium carbonate [Tums] 200 mg PO BID PRN 12/14/18 06/06/19 History diclofenac sodium [Voltaren] 2 g TOPICAL QID PRN 12/14/18 06/06/19 History losartan 25 mg PO QAM 12/14/18 06/06/19 History magnesium oxide 400 mg PO QAM 02/13/19 06/06/19 History aspirin [Aspir-81] 81 mg PO QAM 03/31/19 06/06/19 History docusate sodium [Colace] 100 mg PO BID PRN 03/31/19 06/06/19 History ranitidine HCl 150 mg PO BID 03/31/19 06/06/19 History furosemide [Lasix] 20 mg PO DAILY 04/22/19 06/06/19 History ipratropium-albuterol 3 ml INHALATION QID 04/22/19 06/06/19 History metoprolol succinate 50 mg PO DAILY 04/22/19 06/06/19 History pantoprazole 40 mg PO DAILY 04/22/19 06/06/19 History Patient History Medical History Multiple fractures of ribs of left side (Resolved) Chronic diastolic heart failure (Chronic) Chronic respiratory failure with hypoxia, on home O2 therapy (Chronic) OXYGEN 2L/MIN DAYTIME/3L/MIN HS VIA NC Hypertension (Chronic) COPD (chronic obstructive pulmonary disease) (Chronic) On 07/28/15 14:30 Verenice Guillen wrote "severity to be determined " Dyslipidemia (Chronic) GERD (gastroesophageal reflux disease) (Chronic) Fibromyalgia (Chronic) BCC (basal cell carcinoma of skin) (Chronic) "s/p MOHS surgery" Osteoporosis (Chronic) Sinus tachycardia (Chronic) SOB (shortness of breath) on exertion Surgical History Status post appendectomy (Chronic) Status post hysterectomy (Chronic) Status post repair of ventral hernia (Chronic) Hx of cataract surgery (Chronic) S/P Mohs surgery for basal cell carcinoma (Chronic) Family History Grandfather (Maternal) Family hx of colon cancer Father FH: kidney cancer Other Kidney disease Lung disease Social History Preferred Language: Ghanaian Communication Ability: Effective Correspondence School Instructor Required: No Beliefs That Will Affect Care: None marital status: / Current Living Situation: Alone current occupational status: retired Feels Safe at Home: Yes Smoking Status: Former smoker Tobacco Type: cigarettes ; Smoking End Date: unsure of quit date, pt does not smell like smoke ; Second Hand Exposure: No ; Hx Alcohol Use: No Hx Substance Use: No Review of Systems Review of Systems: Unobtainable due to cognitive status Physical Exam Constitutional: Appears unkempt. There is dirt at the bottom of her feet. She is alert and awake. She is oriented to person and place. She does not appear oriented to time. Eyes: PERRL, conjunctivae normal, anicteric sclerae ENMT: Ears: + hearing impairment Neck: Large. No lymphadenopathy Respiratory: Tachypneic. Minimal wheeze. Poor air entry. Cardiovascular: RRR, no murmur, no edema Palpation: normal PMI Chest (Breasts): Chest: normal inspection of chest Gastrointestinal (Abdomen): normal bowel sounds, soft, nontender, no hepatosplenomegaly Percussion/Palpation: no hepatosplenomegaly Musculoskeletal: Head/Neck/Chest: normocephalic and neck supple Skin: no rashes, warm and dry Neurologic: CN's II-XI intact bilaterally and awake Results & Data Vital Signs (Past 12 Hours) Vital Signs Temp Pulse Resp BP Pulse Ox 06/06/19 17:00 87 20 90 06/06/19 16:45 96 H 29 H 94 06/06/19 16:31 94 H 23 86 L 06/06/19 16:30 96 H 21 94 06/06/19 16:17 88 19 148/73 H 92 06/06/19 16:15 85 24 97 06/06/19 16:01 85 24 152/75 H 93 06/06/19 16:00 76 21 97 06/06/19 15:45 77 21 118/98 95 06/06/19 15:31 77 21 132/66 96 06/06/19 15:30 77 17 94 06/06/19 15:15 74 20 112/78 94 06/06/19 15:00 74 19 126/70 93 06/06/19 14:45 77 22 114/60 94 06/06/19 14:40 76 19 123/66 94 06/06/19 14:30 75 18 94 06/06/19 14:15 81 20 125/64 92 06/06/19 14:00 82 20 112/61 92 06/06/19 13:45 84 21 119/59 L 92 06/06/19 13:30 88 21 116/63 91 06/06/19 13:15 92 H 25 H 112/64 94 06/06/19 13:04 99.3 F 97 H 18 66/43 L 97 06/06/19 13:00 92 H 24 83/61 L 98 06/06/19 12:59 95 H 22 116/53 L 97 Laboratory Results 06/06/19 06/06/19 14:07 15:46 ABG pH 7.25 L ABG pCO2 129 H ABG pO2 77 L ABG HCO3 56 H ABG O2 Saturation 93.2 ABG Base Excess 21.9 H VBG pH 7.25 L VBG pCO2 131 H VBG pO2 51 VBG HCO3 55 VBG O2 Saturation 84.7 VBG Base Excess 21.5 Diagnostic Findings Chest x-ray reviewed and no acute findings. Radiology interpretation reviewed. PG Care Time/CCT Total # of Minutes Spent Total Time Spent with Patient: Total time spent is greater than 50% in coordination of care (as documented) at patient's floor/unit and/or counseling patient:
[2019-06-06] MEDS ORDERED: POLYETHYLENE (MIRALAX) 17 GM PACK PO PRN (18:37)
[2019-06-06] MEDS ORDERED: ONDANSETRON INJ 2 MG/ML 2 ML VIAL IV PRN (18:37)
[2019-06-06] MEDS ORDERED: LEVOFLOXACIN/D5W 750 MG/150 ML BAG IV SCH (19:00)
[2019-06-06 19:57] LABS: Base Excess ABG 23.2 mEq/L (-9-1.8); HCO3 ABG 54 mmol/L (19-24); Oxygen Saturation ABG 93.3 % (90-95); PCO2 ABG 98 mmHg (35-46); PO2 ABG 70 mm/Hg (80-95); pH ABG 7.36 (7.35-7.45)
[2019-06-06 19:58] LABS: Allen Test Pos (Pos)
[2019-06-06] MEDS ORDERED: methylPREDNISolone 40 MG in SYRINGE 0 ML IV SCH (20:00)
[2019-06-06] MEDS ORDERED: ROCEPHIN~PHARMACY CONSULT IN PROGRESS PRN (23:29)
[2019-06-07] MEDS: D5W AND NSS 1,000 ML IV SCH ×2 (00:09→08:01)
[2019-06-07] MEDS: cefTRIAXone SODIUM 1,000 MG in DEXTROSE 5% 50 ML IV SCH ×2 (00:10→23:53)
[2019-06-07] MEDS ORDERED: AZITHROMYCIN 500 MG in DEXTROSE 5% 250 ML IV SCH (01:00)
[2019-06-07 03:03] LABS: Appearance Urine Turbid (Clear); Bacteria Urine Automated Negative (Negative); Bilirubin Urine Negative (Negative); Blood Urine Negative (Negative); Color Urine Yellow; Epithelial Cell Urine Auto >30 /lpf (0-5); Glucose Urine UA Negative (Negative); Ketones Urine Trace (Negative); Leukocyte Esterase Urine Negative (Negative); Nitrite Urine Negative (Negative); Specific Gravity Urine 1.018 (1.000-1.030); Urobilinogen Urine Negative (Negative)
[2019-06-07 03:28] LABS: Protein Urine Negative (Negative)
[2019-06-07 03:36] LABS: Amorphous Sediment Urine Present (None Prsent); Triple Phosphate Crystal Urine Present (None Prsent)
[2019-06-07] MEDS: ALBUT/IPRATROP 3MG/0.5MG NEB 3 ML VIAL NEB SCH ×4 (06:57→18:53)
--- NOTE | 2019-06-07 07:47 | Hospitalist Progress Note ---
Date of Service June 07, 2019 Assessment & Plan (1) Acute and chronic respiratory failure: Baseline advanced COPD on home O2 and h/o smoking Severe COPD exacerbation associated with hypercapnic respiratory failure Recently to be discharged from hospital on 04/26/2019 with COPD exacerbation, was discharged on home trilogy Questionable compliance of usage of trilogy mask at home as per family members bronchoscopy on 04/18/[address] Chowdhury showed chronic mucopurulent bronchitis with mucoid impaction, dynamic airway collapse involving the distal third of the trachea left tracheobronchial tree Presents with worsening of shortness of breath, hypoxia, confusion Patient was placed on BiPAP in ER: With initial setting setting at 14/7 ABG 2 hours after BiPAP treatment pH 7.25/PO2 129/PCO2 77-respiratory acidosis with hypercarbia Appreciate input from pulmonology BiPAP settings been adjusted ABG this morning: pH 7.45/PCO2 69/PO2 59/bicarb 47-compensated chronic respiratory acidosis with hypercarbia, chronic metabolic alkalosis for compensation Patient's current BiPAP settin/8, respiratory rate 22 FiO2 30% Pulmonology consulted, appreciate input (2) Gram-positive bacteremia: Blood culture 1 set shows gram-positive cocci Added empirically IV vancomycin Repeat blood culture be ordered ID eval requested (3) Respiratory acidosis: 2/2 CO2 retention from COPD. Cont noninvasive ventilation as outlined above Pulmonology following (4) COPD exacerbation: Continue on BiPAP secondary to acute respiratory failure, On IV Solu-Medrol Scheduled neb treatment (5) Hypertension: Cont PO home meds including losartan and Toprol XL. (6) Chronic diastolic heart failure: appears euvolemic to dehydrated on exam. Lasix is prescribed PRN, uncertain frequency she is taking at home. CXR clear. Will hold for now. (7) GERD (gastroesophageal reflux disease): Cont Protonix. Hold ranitidine to minimize PO. (8) Fibromyalgia: Narcotic pain medications discontinued to prevent sedation which can worsen respiratory failure, CO2 retention (9) DVT prophylaxis: Lovenox Full Code as discussed with son who is POA. Dispo-continue to monitor in PCU, needs close monitoring of hemodynamics secondary to respiratory failure Patient will need PT OT evaluation when medically stable Social service consulted for discharge planning Subjective Patient remains very lethargic, wearing BiPAP Able to open eyes, saying "she is hungry" Patient has been n.p.o. for severe respiratory distress, respiratory failure associated with metabolic encephalopathy, confusion, lethargy Vitals has been stable so far Blood gas showed compensated respiratory acidosis with hypercarbia Patient will need continued BiPAP support/can be off BiPAP and transition to nasal cannula during meals Pulmonology following, appreciate input Review of Systems Review of Systems: All systems reviewed & are unremarkable except as noted in HPI & below Physical Exam Constitutional: WD/WN, vitals as above + ill appearing Elderly female, on BiPAP mask Eyes: + anicteric sclerae ENMT: On BiPAP mask, Neck: trachea midline, no thyromegaly Respiratory: Auscultation: + diminished lung sounds and + wheezes Cardiovascular: RRR, no murmur, no edema Gastrointestinal (Abdomen): normal bowel sounds, soft, nontender, no hepatosplenomegaly Musculoskeletal: Generalized weakness, Neurologic: moves all extremities; no focal motor deficits Results & Data Vital Signs (Past 12 Hours) Vital Signs Temp Pulse Pulse Resp BP BP Pulse Ox 06/07/19 07:02 36.9 C 78 22 156/73 H 98 06/07/19 03:56 104 H 24 93 06/07/19 02:30 36.8 C 100 H 16 145/88 H 93 06/06/19 23:23 36.9 C 91 H 18 158/88 H 90 06/06/19 22:09 78 24 94 06/06/19 20:05 37.0 C 78 18 115/72 94 06/06/19 19:47 75 28 H 99 06/06/19 19:46 75 28 H 99 (1) Acute and chronic respiratory failure Respiratory failure complication: hypoxia and hypercapnia Qualified Code(s): J96.21 - Acute and chronic respiratory failure with hypoxia; J96.22 - Acute and chronic respiratory failure with hypercapnia (2) Hypertension Hypertension type: unspecified Qualified Code(s): I10 - Essential (primary) hypertension
[2019-06-07] MEDS: methylPREDNISolone 40 MG in SYRINGE 0 ML IV SCH ×2 (08:01→20:09)
[2019-06-07] MEDS: ENOXAPARIN INJ 40 MG/0.4 ML SYR SQ SCH (08:01)
[2019-06-07 08:25] LABS: Base Excess ABG 19.5 mEq/L (-9-1.8); HCO3 ABG 47 mmol/L (19-24); Oxygen Saturation ABG 90.8 % (90-95); PCO2 ABG 69 mmHg (35-46); PO2 ABG 59 mm/Hg (80-95); pH ABG 7.45 (7.35-7.45)
[2019-06-07 08:27] LABS: Allen Test Pos (Pos)
[2019-06-07 09:31] LABS: BUN Creatinine Ratio 25.6 (10-20); Creatinine Clr Calc Pharmacy 73.6 ml/min; Est GFR (African American) 101.7; Est GFR (Non-African American) 87.7
[2019-06-07 09:36] LABS: Hematocrit (blood only) 36.6 % (37-47); Hemoglobin 11.7 g/dL (12.0-16.0); Mean Corpuscular Hemoglobin 29.8 pg (25-34); Mean Corpuscular Volume 93.4 fL (80-100); Mean Platelet Volume 11.8 fL (7.4-10.4); Platelet Count 147 K/uL (130-400); RDW Coefficient of Variation 13.8 % (11.5-14.5); RDW Standard Deviation 47.1 fL (36.4-46.3); Red Blood Count 3.92 M/uL (4.2-5.4)
[2019-06-07] MEDS ORDERED: VANCOMYCIN CONSULT ACTIVE PRN ×2 (12:22)
[2019-06-07] MEDS ORDERED: VANCOMYCIN HCL 2,000 MG in SODIUM CHLORIDE 0.9% 500 ML IV ONE (12:45)
--- NOTE | 2019-06-07 13:28 | Pulmonology Progress Note ---
Date of Service June 07, 2019 Assessment & Plan (1) COPD exacerbation: She has chronic hypoxemic/hypercapnic respiratory failure and needs noninvasive ventilation at all times when sleeping. She is at very high risk for acute hypercapnic/hypoxemic respiratory failure with any sedative med ications or if she does not use her noninvasive ventilation. I tried to reiterate this to the patient but I am not sure she understood. There is no family immediately available at bedside. Switch to prednisone at 40 mg for a total 5 days. I do not see any obvious infiltrates on chest x-ray and there are no clear clinical signs of infection thus antibiotics can be stopped. She likely needs the support of an assisted living or snf to keep an eye on her. I am not sure that it is completely safe for her to be at home on her own. Upon discharge from the hospital, she can be started on Roflumilast. She needs follow-up with Dr. Chowdhury of pulmonary as an outpatient. Restart her home Spiriva and Symbicort upon discharge. At this time, pulmonary will sign off as there are no obvious interventions required from us. We are happy to answer any questions should they arise. Thank you for the consult. (2) Acute on chronic respiratory failure with hypoxemia: (3) Acute and chronic respiratory failure with hypercapnia: (4) Obesity hypoventilation syndrome: Subjective This afternoon, patient appears to be somewhat confused. She was sleeping quietly in her bed and after I woke her up she took a long time to respond. She was sleeping without her noninvasive ventilation. Overnight, per the nursing, she was sleeping with her trilogy mask on. She seemed to be more awake and alert to the nurses in the morning. She did get a bath per nursing. Right now, she denies any pain to me. She denies any shortness of breath. I am not certain that she completely understands what I am asking her. She has been afebrile. She is saturating the high 80s/low 90s this flow. Physical Exam Constitutional: She appears well-developed. She is comfortable in bed. Eyes: PERRL, conjunctivae normal, anicteric sclerae ENMT: Ears: + hearing impairment Neck: trachea midline, no thyromegaly Respiratory: She has mild expiratory wheezes. Cardiovascular: Palpation: normal PMI She is mildly tachycardic. There are no flow murmurs. Chest (Breasts): Chest: normal inspection of chest Gastrointestinal (Abdomen): normal bowel sounds, soft, nontender, no hepatosplenomegaly Percussion/Palpation: no hepatosplenomegaly Musculoskeletal: Head/Neck/Chest: normocephalic and neck supple Skin: no rashes, warm and dry Neurologic: CN's II-XI intact bilaterally and awake She appears confused. She is slow to answer questions. She is oriented to place. Results & Data Vital Signs (Past 12 Hours) Vital Signs Temp Pulse Pulse Resp BP Pulse Ox 06/07/19 11:35 98.6 F 101 H 19 159/85 H 89 L 06/07/19 11:04 73 20 98 06/07/19 08:00 90 06/07/19 07:02 98.4 F 78 22 156/73 H 98 06/07/19 06:57 90 30 H 92 06/07/19 06:55 90 30 H 92 06/07/19 03:56 104 H 24 93 06/07/19 02:30 98.2 F 100 H 16 145/88 H 93 Laboratory Results 06/06/19 06/06/19 06/06/19 14:07 15:46 19:40 ABG pH 7.25 L 7.36 ABG pCO2 129 H 98 H ABG pO2 77 L 70 L ABG HCO3 56 H 54 H ABG O2 Saturation 93.2 93.3 ABG Base Excess 21.9 H 23.2 H VBG pH 7.25 L VBG pCO2 131 H VBG pO2 51 VBG HCO3 55 VBG O2 Saturation 84.7 VBG Base Excess 21.5 06/07/19 08:12 ABG pH 7.45 ABG pCO2 69 H ABG pO2 59 L ABG HCO3 47 H ABG O2 Saturation 90.8 ABG Base Excess 19.5 H VBG pH VBG pCO2 VBG pO2 VBG HCO3 VBG O2 Saturation VBG Base Excess 06/07/19 08:13 06/07/19 09:37 PG Care Time/CCT Total # of Minutes Spent Total Time Spent with Patient: Total time spent is greater than 50% in coordination of care (as documented) at patient's floor/unit and/or counseling patient:
--- NOTE | 2019-06-07 16:02 | Pharmacy Report ---
Pharmacy Abx Initial Consult - Date of Service June 07, 2019 - Pharmacy Dosing Scope Date of Consult: 06/07/19 Consultation requested by: Dr. Taylor Pharmacy is consulted to initiate Vancomycin IV/PO dosing therapy, order appropriate labs and adjust drug dose/frequency. - Subjective The patient is a 73 year old F admitted on 06/06/19 16:11. - Objective Height: 5 ft 2 in Weight: 76 kg Vital Signs (Past 12hrs): Vital Signs Temp Pulse Pulse Resp BP Pulse Ox 06/07/19 15:24 36.5 C 87 21 173/72 H 96 06/07/19 15:12 65 65 30 H 95 06/07/19 11:35 37.0 C 101 H 19 159/85 H 89 L 06/07/19 11:04 73 20 98 06/07/19 08:00 90 06/07/19 07:02 36.9 C 78 22 156/73 H 98 06/07/19 06:57 90 30 H 92 06/07/19 06:55 90 30 H 92 Lab Results (24hrs): Laboratory Tests (24 Hours) 06/07/19 06/07/19 08:13 08:13 WBC 9.00 Creatinine 0.63 Est Cr Clr Drug Dosing 73.6 - Risk Factors for Resistance * Hospitalization for 48 hours or more within the past 90 days - Assessment & Plan Assessment 73 year old F with PMH significant for COPD and tobacco use. * Renal function at baseline * One of 2 blood cultures growing gram positive cocci. MRSA PCR is negative. Plan Vancomycin for treatment of bacteremia Vancomycin IV * Estimated PK Parameters: Vd 0.7 L/kg, Job 0.066 hr-1, t1/2 10.5 hr * Loading dose: 2000 mg (26 mg/kg) * Maintenance dose: 1250 mg IV (16 mg/kg) every 14 hours * Goal trough level for bacteremia : 15 to 20 mcg/mL * Trough level ordered for 06/09/19 @0330 Pt is also on Rocephin 1gm Q24h. Pharmacy will continue to follow and will adjust dose/frequency as necessary. Thank you.
[2019-06-08] MEDS ORDERED: VANCOMYCIN HCL 1,250 MG in SODIUM CHLORIDE 0.9% 250 ML IV SCH
[2019-06-08] MEDS: ALBUT/IPRATROP 3MG/0.5MG NEB 3 ML VIAL NEB SCH ×2 (07:03→10:57)
[2019-06-08 08:00] LABS: Creatinine Clr Calc Pharmacy 77.3 ml/min; Est GFR (African American) 103.3; Est GFR (Non-African American) 89.2
[2019-06-08] MEDS ORDERED: DOCUSATE SODIUM 100 MG CAP PO PRN (08:08)
[2019-06-08] MEDS ORDERED: ALBUTEROL HFA 8 GM INHALER INH PRN (08:08)
[2019-06-08] MEDS ORDERED: DICLOFENAC SOD 1% GEL 100 GM TUBE EXT PRN (08:08)
[2019-06-08] MEDS: ENOXAPARIN INJ 40 MG/0.4 ML SYR SQ SCH (08:52)
[2019-06-08] MEDS: MAGNESIUM OXIDE 400 MG TAB PO SCH (08:52)
[2019-06-08] MEDS: methylPREDNISolone 40 MG in SYRINGE 0 ML IV SCH ×2 (08:52→20:13)
[2019-06-08] MEDS: FUROSEMIDE 20 MG TAB PO SCH (08:52)
[2019-06-08] MEDS: BUDESONIDE/FORMOTEROL FUMARATE 160/4.5 60 PUFFS/INHALER INH SCH ×2 (08:52→20:14)
[2019-06-08] MEDS: TIOTROPIUM BROMIDE 5 PUFF/90 MCG INH INH SCH (08:53)
[2019-06-08] MEDS: ASPIRIN 81 MG ECTAB PO SCH (09:05)
[2019-06-08] MEDS: ATORVASTATIN 40 MG TAB PO SCH (09:05)
[2019-06-08] MEDS: LOSARTAN POTASSIUM 25 MG TAB PO SCH (09:05)
[2019-06-08] MEDS: PANTOprazole 40 MG TAB PO SCH (09:05)
[2019-06-08] MEDS: METOPROLOL SUCC 50MG EXT REL TAB PO SCH (09:05)
[2019-06-08] MEDS ORDERED: XOPENEX/ATROVENT 1.25mg/0.5MG NEB COMBO NEB SCH (12:00)
--- NOTE | 2019-06-08 12:14 | Hospitalist Progress Note ---
Date of Service June 08, 2019 Assessment & Plan (1) Acute and chronic respiratory failure: Baseline advanced COPD on home O2 with a history of chronic smoking h/o smoking Recent admission at [facility] with prolonged hospitalization with COPD exacerbation from Patient was intolerant of BiPAP Arrangement was made to home trilogy machine Patient does not recall having any machine at home, As per documentation on admission, has not been using her machine Questionable compliance of usage of trilogy mask at home as per family members Presented with increased lethargy hypercapnia and metabolic acidosis -severe COPD exacerbation associated with hypercapnic respiratory failure bronchoscopy on 04/18/[address] Chowdhury showed chronic mucopurulent bronchitis with mucoid impaction, dynamic airway collapse involving the distal third of the trachea left tracheobronchial tree \ Patient was placed on BiPAP in ER: With initial setting setting at 14/7 ABG 2 hours after BiPAP treatment pH 7.25/PO2 129/PCO2 77-respiratory acidosis with hypercarbia Appreciate input from pulmonology BiPAP settings been adjusted ABG on 06/07/2019: pH 7.45/PCO2 69/PO2 59/bicarb 47-compensated chronic respiratory acidosis with hypercarbia, chronic metabolic alkalosis for compensation Patient's current BiPAP settin/8, respiratory rate 22 FiO2 30% Awake and alert today, Will status, respiratory status improved back to baseline Patient is counseled repeatedly, importance of using BiPAP/trilogy machine at home especially at nighttime to prevent recurrent admission with -elevated CO2 level-causing respiratory Patient voiced understanding Since this time she has been doing well with BiPAP machine in hospital Does realize using the machine at home will make difference with her quality of life and disease management Patient will be continued with IV Solu-Medrol, still has coarse wheeze Plan to transition to p.o. prednisone possible tomorrow, will wait for pulmonology recommendation Increase activity as tolerated Continue nebulizer treatment: Changed to Xopenex -to prevent albuterol induced tachycardia (2) Gram-positive bacteremia: Blood culture 1 set shows gram-positive cocci-coag negative staph, Possible contamination PCR MRCA negative IV vancomycin discontinued Repeat blood culture be ordered We will follow results ID eval requested (3) Respiratory acidosis: 2/2 CO2 retention from COPD. Resolved after BiPAP treatment Will be continued with BiPAP at night, and doing taking a nap: Current BiPAP setting IPAP 16 cmH2O/EPAP 8 cmH2O /rate 22/, FiO2 30% Patient is counseled repeatedly to utilize trilogy machine at home Pulmonology following (4) COPD exacerbation: Continue on BiPAP at night, O2 via nasal cannula, please maintain SPO2 between 88-92% Respiratory status gradually improving On IV Solu-Medrol Scheduled neb treatment: Changed to Xopenex and Atrovent every 4 hours scheduled, every 2 hours as needed for wheeze Appreciate input from pulmonology (5) Hypertension: BP was elevated earlier, P.o. meds were kept on hold yesterday as patient was very lethargic, high aspiration risk Awake alert oriented today, with improved respiratory status P.o. losartan and Toprol-XL resumed Continue to monitor and telemetry (6) Chronic diastolic heart failure: Presented with acute decompensation of diastolic heart failure Patient reports of not taking Lasix at home (because it makes her urinate often) Recent [facility] at home documentation shows increased weight gain Coarse Rales noted on bibasilar lungs Possible decompensation of diastolic CHF secondary to respiratory failure, hypoxia We will order 20 of IV Lasix x1 now Continue p.o. Lasix 20 mg daily Monitor daily weight (7) GERD (gastroesophageal reflux disease): Cont Protonix. Hold ranitidine to minimize PO. (8) Fibromyalgia: At home patient is on as needed Ultram-kept on hold since admission Narcotic pain medications discontinued to prevent sedation which can worsen respiratory failure, CO2 retention (9) DVT prophylaxis: Lovenox Full Code as discussed with son who is POA. Dispo-continue to monitor in PCU, needs close monitoring of hemodynamics secondary to respiratory failure PT OT evaluation requested, appreciate input This is patient second admission in the last 2 months with COPD exacerbation/respiratory failure Marked functional decline noted Live alone, uses walker at baseline Patient is active with [facility] at home May need rehab after discharge from hospital Social service consulted for discharge planning Subjective Patient is awake and alert today, has been off BiPAP since this morning, Speaking in sentences, says she feels much better today, Does not have any recollection for the past 2 days of hospital admission 2 L oxygen via nasal cannula Instructed nursing to keep SPO2 between 88-92% to prevent hypercarbia/CO2 retention Patient been sitting up in bed, finished her breakfast Able to get out of bed with physical therapy Walked 30 feet, Significant dyspnea on exertion, weakness noted with activity as per physical therapy note No cough, no audible wheeze Patient has been afebrile Sinus tachycardia noted in telemetry/rate increases with minimum activity or change of position Review of Systems Review of Systems: All systems reviewed & are unremarkable except as noted in HPI & below Physical Exam Constitutional: WD/WN, vitals as above + obese; no acute distress Awake and alert, speaking in sentences Eyes: PERRL, conjunctivae normal, anicteric sclerae ENMT: external ear and nose normal, oropharynx normal Neck: trachea midline, no thyromegaly Respiratory: Auscultation: + diminished lung sounds, + rales and + wheezes Cardiovascular: RRR, no murmur, no edema Rate/Rhythm: + tachycardic Gastrointestinal (Abdomen): normal bowel sounds, soft, nontender, no hepatosplenomegaly Musculoskeletal: Generalized weakness Skin: no rashes, warm and dry Neurologic: PERRL, EOMI, accommodation nl, no face palsy, no dysarthria Psychiatric: A+Ox3, euthymic affect Results & Data Vital Signs (Past 12 Hours) Vital Signs Temp Pulse Pulse Resp BP BP Pulse Ox 06/08/19 11:10 36.7 C 106 H 19 164/89 H 94 06/08/19 11:00 100 H 20 98 06/08/19 08:00 76 06/08/19 07:03 108 H 20 95 06/08/19 07:02 36.5 C 98 H 19 168/86 H 96 06/08/19 03:30 36.7 C 59 L 18 156/85 H 98 06/08/19 00:22 36.9 C 77 16 146/82 H 95 06/07/19 23:59 76 (1) Acute and chronic respiratory failure Respiratory failure complication: hypoxia and hypercapnia Qualified Code(s): J96.21 - Acute and chronic respiratory failure with hypoxia; J96.22 - Acute and chronic respiratory failure with hypercapnia (2) Hypertension Hypertension type: unspecified Qualified Code(s): I10 - Essential (primary) hypertension (3) GERD (gastroesophageal reflux disease) Esophagitis presence: esophagitis presence not specified Qualified Code(s): K21.9 - Gastro-esophageal reflux disease without esophagitis
[2019-06-08] MEDS: IPRATROPIUM BROMIDE NEB SOLN 0.02% 2.5 ML VIAL INH SCH ×4 (12:36→22:25)
[2019-06-08] MEDS: LEVALBUTEROL 1.25MG/0.5ML NEB INH SCH ×4 (12:36→22:25)
--- NOTE | 2019-06-08 15:36 | Infectious Disease Consult ---
Date of Consultation June 08, 2019 Assessment & Plan (1) Coagulase negative Staphylococcus bacteremia: Patient with positive blood culture for coagulase-negative staph, likely this represents contaminant is no evidence of active infection at present. Would recommend discontinuation of vancomycin, await finalization of follow-up blood cultures. Will follow. History of Present Illness Reason for Consultation: Gram-positive bacteremia Attending Physician: Flora Taylor MD History of Present Illness 73-year-old female with long history of COPD, hypertension, hyperlipidemia, GERD, fibromyalgia, who has been troubled with shortness of breath and cough for several months. She recently underwent bronchoscopy with finding of significant mucoid impactions, treated with prednisone and antibiotics. She was now admitted with several days of progressively worsening shortness of breath and cough. Blood cultures were drawn upon admission, and now 1 set reported positive for coagulase-negative staph. Patient has not had any significant fever. Follow-up blood cultures are no growth to date. Breathing has improved slightly since admission. Allergies Allergy/AdvReac Type Severity Reaction Status Date / Time duloxetine [From Cymbalta] Allergy Rash Verified 06/06/19 14:39 naproxen AdvReac Mild GI Verified 06/06/19 14:39 SYMPTOMS-PT DENIES Home Medications Home Medications Medication Instructions Recorded Confirmed Type Spiriva with HandiHaler 1 cap INHALATION QAM 12/14/18 06/06/19 History Symbicort 2 puff INHALATION BID 12/14/18 06/06/19 History acetaminophen [Tylenol Extra 1,000 mg PO Q6H PRN 12/14/18 06/06/19 History Strength] albuterol sulfate [Ventolin HFA] 2 puff INHALATION Q4H PRN 12/14/18 06/06/19 History atorvastatin 40 mg PO QAM 12/14/18 06/06/19 History calcium carbonate [Tums] 200 mg PO BID PRN 12/14/18 06/06/19 History diclofenac sodium [Voltaren] 2 g TOPICAL QID PRN 12/14/18 06/06/19 History losartan 25 mg PO QAM 12/14/18 06/06/19 History magnesium oxide 400 mg PO QAM 02/13/19 06/06/19 History aspirin [Aspir-81] 81 mg PO QAM 03/31/19 06/06/19 History docusate sodium [Colace] 100 mg PO BID PRN 03/31/19 06/06/19 History ranitidine HCl 150 mg PO BID 03/31/19 06/06/19 History furosemide [Lasix] 20 mg PO DAILY 04/22/19 06/06/19 History ipratropium-albuterol 3 ml INHALATION QID 04/22/19 06/06/19 History metoprolol succinate 50 mg PO DAILY 04/22/19 06/06/19 History pantoprazole 40 mg PO DAILY 04/22/19 06/06/19 History Patient History Medical History Multiple fractures of ribs of left side (Resolved) Chronic diastolic heart failure (Chronic) Chronic respiratory failure with hypoxia, on home O2 therapy (Chronic) OXYGEN 2L/MIN DAYTIME/3L/MIN HS VIA NC Hypertension (Chronic) COPD (chronic obstructive pulmonary disease) (Chronic) On 07/28/15 14:30 Verenice Guillen wrote "severity to be determined " Dyslipidemia (Chronic) GERD (gastroesophageal reflux disease) (Chronic) Fibromyalgia (Chronic) BCC (basal cell carcinoma of skin) (Chronic) "s/p MOHS surgery" Osteoporosis (Chronic) Sinus tachycardia (Chronic) SOB (shortness of breath) on exertion Surgical History Status post appendectomy (Chronic) Status post hysterectomy (Chronic) Status post repair of ventral hernia (Chronic) Hx of cataract surgery (Chronic) S/P Mohs surgery for basal cell carcinoma (Chronic) Family History Grandfather (Maternal) Family hx of colon cancer Father FH: kidney cancer Other Kidney disease Lung disease Social History Preferred Language: Latvian Communication Ability: Effective Veterinary Technologist Required: No Beliefs That Will Affect Care: None marital status: / Current Living Situation: Alone current occupational status: retired Feels Safe at Home: Yes Smoking Status: Former smoker Tobacco Type: cigarettes ; Second Hand Exposure: No ; Hx Alcohol Use: No Hx Substance Use: No Review of Systems Review of Systems: All systems reviewed & are unremarkable except as noted in HPI & below Physical Exam Constitutional: WD/WN, vitals as above comfortable; no acute distress Eyes: PERRL, conjunctivae normal, anicteric sclerae ENMT: external ear and nose normal, oropharynx normal Neck: trachea midline, no thyromegaly neck nontender Respiratory: normal respiratory effort and normal percussion; no respiratory distress and does not use accessory muscles Auscultation: + rhonchi and + wheezes Cardiovascular: Rate/Rhythm: regular rate and regular rhythm Heart Sounds: normal S1 and normal S2; no gallop, no murmur and no cardiac rub Vessels: normal peripheral pulses; no JVD Gastrointestinal (Abdomen): normal bowel sounds, soft, nontender, no hepatosplenomegaly Musculoskeletal: no cyanosis or clubbing, extremities motor strength 5/5 Spine: thoracic spine normal to inspection and lumbar spine normal to inspection; no cervical spinal tenderness Skin: no rashes, warm and dry normal turgor; no lesions Neurologic: patellar DTR's 2+ bilat, sensation intact no focal motor deficits Psychiatric: A+Ox3, euthymic affect Orientation: cooperative Lymphatic: no cervical or axillary lymphadenopathy no inguinal lymphadenopathy Results & Data Vital Signs (Past 12 Hours) Vital Signs Temp Pulse Pulse Resp BP BP Pulse Ox 06/08/19 15:20 105 H 20 92 06/08/19 15:17 37.0 C 105 H 21 133/74 95 06/08/19 11:10 36.7 C 106 H 19 164/89 H 94 06/08/19 11:00 100 H 20 98 06/08/19 08:00 76 06/08/19 07:03 108 H 20 95 06/08/19 07:02 36.5 C 98 H 19 168/86 H 96 Laboratory Results [facility] 06/08/19 06:37 Creatinine 0.60 Diagnostic Findings Microbiology 06/06/19 14:06 Blood Aerobic Blood Culture - Preliminary Coag neg staph not lugdunensis 06/06/19 14:06 Blood Anaerobic Blood Culture - Preliminary No growth in Anaerobic bottle after 48 hours. 06/06/19 13:15 Blood Aerobic Blood Culture - Preliminary No growth in Aerobic bottle after 48 hours. 06/06/19 13:15 Blood Anaerobic Blood Culture - Preliminary No growth in Anaerobic bottle after 48 hours. 06/07/19 17:35 Urine,Indwelling Cath Urine Culture - Preliminary No growth - Less than 1,000 colonies/mL, Final report to follow. XR chest 1V portable CLINICAL HISTORY: Sepsis dyspnea COMPARISON STUDY: 04/22/2019 FINDINGS: Chronic atelectatic change left lung base. Lungs otherwise appear clear. Partial chronic subluxation left shoulder. Lungs otherwise appear clear. IMPRESSION: Chronic change. No acute process. The above report was generated using voice recognition software. It may contain grammatical, syntax or spelling errors. Electronically signed by: Byron Reyes M.D. 06/06/2019 1:23 PM PG Care Time/CCT Total # of Minutes Spent Total Time Spent with Patient: Total time spent is greater than 50% in coordination of care (as documented) at patient's floor/unit and/or counseling patient:
[2019-06-08] MEDS: ACETAMINOPHEN 325 MG TAB PO PRN (22:14)
[2019-06-09] MEDS: cefTRIAXone SODIUM 1,000 MG in DEXTROSE 5% 50 ML IV SCH (00:11)
[2019-06-09] MEDS: IPRATROPIUM BROMIDE NEB SOLN 0.02% 2.5 ML VIAL INH SCH ×6 (03:09→23:16)
[2019-06-09] MEDS: LEVALBUTEROL 1.25MG/0.5ML NEB INH SCH ×6 (03:09→23:16)
[2019-06-09] MEDS ORDERED: VANCOMYCIN TROUGH ONE (03:30)
[2019-06-09] MEDS: TIOTROPIUM BROMIDE 5 PUFF/90 MCG INH INH SCH (08:31)
[2019-06-09] MEDS: BUDESONIDE/FORMOTEROL FUMARATE 160/4.5 60 PUFFS/INHALER INH SCH ×2 (08:31→20:41)
[2019-06-09] MEDS: MAGNESIUM OXIDE 400 MG TAB PO SCH (08:32)
[2019-06-09] MEDS: ASPIRIN 81 MG ECTAB PO SCH (08:32)
[2019-06-09] MEDS: METOPROLOL SUCC 50MG EXT REL TAB PO SCH (08:32)
[2019-06-09] MEDS: PANTOprazole 40 MG TAB PO SCH (08:32)
[2019-06-09] MEDS: FUROSEMIDE 20 MG TAB PO SCH (08:32)
[2019-06-09] MEDS: ATORVASTATIN 40 MG TAB PO SCH (08:32)
[2019-06-09] MEDS: LOSARTAN POTASSIUM 25 MG TAB PO SCH (08:32)
[2019-06-09] MEDS: methylPREDNISolone 40 MG in SYRINGE 0 ML IV SCH (08:33)
[2019-06-09] MEDS: ENOXAPARIN INJ 40 MG/0.4 ML SYR SQ SCH (08:33)
[2019-06-09] MEDS: ACETAMINOPHEN 325 MG TAB PO PRN ×2 (14:13→22:11)
[2019-06-09] MEDS: CALCIUM CARBONATE 500 MG CHEWABLE TAB PO PRN (16:20)
--- NOTE | 2019-06-09 18:14 | Hospitalist Progress Note ---
Date of Service June 09, 2019 Assessment & Plan (1) Acute and chronic respiratory failure: Baseline advanced COPD on home O2 with a history of chronic smoking h/o smoking Recent admission at [facility] with prolonged hospitalization with COPD exacerbation from Patient was intolerant of BiPAP Arrangement was made to home trilogy machine [facility] contacted by case management: As per [facility], patient refused TRILOGY machine Presented with increased lethargy hypercapnia and metabolic acidosis -severe COPD exacerbation associated with hypercapnic respiratory failure bronchoscopy on 04/18/[address] Chowdhury showed chronic mucopurulent bronchitis with mucoid impaction, dynamic airway collapse involving the distal third of the trachea left tracheobronchial tree \ Patient was placed on BiPAP in ER: With initial setting setting at 14/7 ABG 2 hours after BiPAP treatment pH 7.25/PO2 129/PCO2 77-respiratory acidosis with hypercarbia Appreciate input from pulmonology BiPAP settings been adjusted ABG on 06/07/2019: pH 7.45/PCO2 69/PO2 59/bicarb 47-compensated chronic respiratory acidosis with hypercarbia, chronic metabolic alkalosis for compensation Patient's current BiPAP settin/8, respiratory rate 22 FiO2 30% She is alert and awake, respiratory status improved to baseline after BiPAP treatment Patient is counseled repeatedly, importance of using BiPAP/trilogy machine at home especially at nighttime to prevent recurrent admission with -elevated CO2 level-causing respiratory Since this time she has been doing well with BiPAP machine in hospital Does realize using the machine at home will make difference with her quality of life and disease management Patient will be continued with IV Solu-Medrol, still has coarse wheeze Plan to transition to p.o. prednisone possible tomorrow, will wait for pulmonology recommendation Increase activity as tolerated Continue nebulizer treatment: Changed to Xopenex -to prevent albuterol induced tachycardia Patient was hoping to go to rehab, As for physical therapy patient's functional status is back to baseline, recommends discharge home with home PT home health (2) Gram-positive bacteremia: Blood culture 1 set shows gram-positive cocci-coag negative staph, Possible contamination PCR MRCA negative IV vancomycin discontinued Repeat blood cultures no growth Appreciate input from ID (3) Respiratory acidosis: 2/2 CO2 retention from COPD. Resolved after BiPAP treatment Will be continued with BiPAP at night, and doing taking a nap: Current BiPAP setting IPAP 16 cmH2O/EPAP 8 cmH2O /rate 22/, FiO2 30% Patient is counseled repeatedly regarding importance of using BiPAP/trilogy addi nicolette Pulmonology following (4) COPD exacerbation: Presented with severe respiratory failure secondary to COPD exacerbation Continue on BiPAP at night, O2 via nasal cannula, please maintain SPO2 between 88-92% Respiratory status gradually improving On IV Solu-Medrol Scheduled neb treatment: Changed to Xopenex and Atrovent every 4 hours scheduled, every 2 hours as needed for wheeze Appreciate input from pulmonology (5) Hypertension: Continue. losartan and Toprol-XL (6) Chronic diastolic heart failure: Presented with acute decompensation of diastolic heart failure Patient reports of not taking Lasix at home (because it makes her urinate often) Recent [facility] at home documentation shows increased weight gain Coarse Rales noted on bibasilar lungs Possible decompensation of diastolic CHF secondary to respiratory failure, hypoxia Given 20 of IV Lasix x1 -with adequate diuresis Continue p.o. Lasix 20 mg daily Monitor daily weight (7) GERD (gastroesophageal reflux disease): Cont Protonix. Continue ranitidine (8) Fibromyalgia: At home patient is on as needed Ultram-kept on hold since admission Narcotic pain medications discontinued to prevent sedation which can worsen respiratory failure, CO2 retention (9) DVT prophylaxis: Lovenox Full Code as discussed with son who is POA. PT OT evaluation requested, appreciate input This is patient second admission in the last 2 months with COPD exacerbation/respiratory failure Marked functional decline noted Live alone, uses walker at baseline Patient is active with [facility] at home PT OT eval appreciated, patient's appears to be back to her baseline functional status Plan to discharge home when medically stable with home health home PT Subjective Shortness of breath much better, no wheeze no cough, Doing well, No fever chills Physical Exam Constitutional: WD/WN, vitals as above + obese; no acute distress Eyes: PERRL, conjunctivae normal, anicteric sclerae + anicteric sclerae ENMT: external ear and nose normal, oropharynx normal Neck: trachea midline, no thyromegaly Respiratory: Auscultation: + diminished lung sounds; no wheezes Cardiovascular: RRR, no murmur, no edema Rate/Rhythm: + tachycardic Gastrointestinal (Abdomen): normal bowel sounds, soft, nontender, no hepatosplenomegaly Skin: no rashes, warm and dry Neurologic: PERRL, EOMI, accommodation nl, no face palsy, no dysarthria moves all extremities; no focal motor deficits Psychiatric: A+Ox3, euthymic affect Results & Data Vital Signs (Past 12 Hours) Vital Signs Temp Pulse Pulse Resp BP BP Pulse Ox 06/09/19 16:56 112 H 06/09/19 16:03 06/09/19 16:02 36.7 C 104 H 20 158/75 H 96 06/09/19 15:39 97 H 18 97 06/09/19 11:51 36.9 C 96 H 18 158/71 H 95 06/09/19 11:18 100 H 18 100 06/09/19 07:22 73 18 100 06/09/19 07:14 36.5 C 94 H 17 175/88 H 98 Pulse Ox 06/09/19 16:56 06/09/19 16:03 95 06/09/19 16:02 06/09/19 15:39 06/09/19 11:51 06/09/19 11:18 06/09/19 07:22 06/09/19 07:14 (1) Acute and chronic respiratory failure Respiratory failure complication: hypoxia and hypercapnia Qualified Code(s): J96.21 - Acute and chronic respiratory failure with hypoxia; J96.22 - Acute and chronic respiratory failure with hypercapnia (2) GERD (gastroesophageal reflux disease) Esophagitis presence: esophagitis presence not specified Qualified Code(s): K21.9 - Gastro-esophageal reflux disease without esophagitis (3) Hypertension Hypertension type: unspecified Qualified Code(s): I10 - Essential (primary) hypertension
[2019-06-10] MEDS: TRAMADOL HCL 50 MG TABLET PO PRN ×2 (01:14→13:00)
[2019-06-10] MEDS: IPRATROPIUM BROMIDE NEB SOLN 0.02% 2.5 ML VIAL INH SCH ×6 (03:57→23:14)
[2019-06-10] MEDS: LEVALBUTEROL 1.25MG/0.5ML NEB INH SCH ×6 (03:57→23:14)
[2019-06-10] MEDS: BUDESONIDE/FORMOTEROL FUMARATE 160/4.5 60 PUFFS/INHALER INH SCH ×2 (08:31→20:00)
[2019-06-10] MEDS: TIOTROPIUM BROMIDE 5 PUFF/90 MCG INH INH SCH (08:32)
[2019-06-10] MEDS: CALCIUM CARBONATE 500 MG CHEWABLE TAB PO PRN (08:32)
[2019-06-10] MEDS: predniSONE 20 MG TAB PO SCH (08:33)
[2019-06-10] MEDS: PANTOprazole 40 MG TAB PO SCH (08:33)
[2019-06-10] MEDS: METOPROLOL SUCC 50MG EXT REL TAB PO SCH (08:33)
[2019-06-10] MEDS: FUROSEMIDE 20 MG TAB PO SCH (08:34)
[2019-06-10] MEDS: ATORVASTATIN 40 MG TAB PO SCH (08:34)
[2019-06-10] MEDS: LOSARTAN POTASSIUM 25 MG TAB PO SCH (08:34)
[2019-06-10] MEDS: MAGNESIUM OXIDE 400 MG TAB PO SCH (08:34)
[2019-06-10] MEDS: ASPIRIN 81 MG ECTAB PO SCH (08:34)
[2019-06-10] MEDS: ENOXAPARIN INJ 40 MG/0.4 ML SYR SQ SCH (08:34)
[2019-06-10] MEDS ORDERED: HydrALAZINE HCL 20 MG/ML VIAL IV ONE (16:04)
[2019-06-10] MEDS ORDERED: SIMETHICONE 80 MG CHEW PO PRN (18:43)
[2019-06-10] MEDS ORDERED: ALUMINUM/MAGNESIUM/SIMETH (MAALOX MAX) 30 ML UDC PO STA (18:44)
--- NOTE | 2019-06-10 19:00 | Hospitalist Progress Note ---
Date of Service June 10, 2019 Assessment & Plan (1) Acute and chronic respiratory failure: Baseline advanced COPD on home O2 with a history of chronic smoking h/o smoking Recent admission at [facility] with prolonged hospitalization with COPD exacerbation from Patient was intolerant of BiPAP Arrangement was made to home trilogy machine [facility] contacted by case management: As per [facility], patient refused TRILOGY machine Patient and family counselled repeated time-regarding importance of BiPAP/trilogy to utilize that at night and during sleeping She has severe COPD complicated by obstructive sleep apnea Without BiPAP,/trilogy patient will develop recurrent respiratory failure with CO2 retention into repeated hospital admission Severe respiratory failure can lead to mechanical intubation, very poor outcome Patient's son: Mono Ramos not aware of Nava refusing the machine-he was under the impression, Jay never delivered the trilogy machine Nava also does not recall diffusing the machine, Says" nobody showed up in her house"-they must have went to wrong address Presented with increased lethargy hypercapnia and metabolic acidosis -severe COPD exacerbation associated with hypercapnic respiratory failure bronchoscopy on 04/18/[address] Chowdhury showed chronic mucopurulent bronchitis with mucoid impaction, dynamic airway collapse involving the distal third of the trachea left tracheobronchial tree \\ Patient was placed on BiPAP in ER: With initial setting setting at 14/7 ABG 2 hours after BiPAP treatment pH 7.25/PO2 129/PCO2 77-respiratory acidosis with hypercarbia Appreciate input from pulmonology BiPAP settings been adjusted ABG on 06/07/2019: pH 7.45/PCO2 69/PO2 59/bicarb 47-compensated chronic respiratory acidosis with hypercarbia, chronic metabolic alkalosis for compensation Patient's current BiPAP settin/8, respiratory rate 22 FiO2 30% She is alert and awake, respiratory status improved to baseline after BiPAP treatment Patient is counseled repeatedly, importance of using BiPAP/trilogy machine at home especially at nighttime to prevent recurrent admission with -elevated CO2 level-causing respiratory Since this time she has been doing well with BiPAP machine in hospital Does realize using the machine at home will make difference with her quality of life and disease management Patient will be continued with IV Solu-Medrol, still has coarse wheeze Plan to transition to p.o. prednisone possible tomorrow, will wait for pulmonology recommendation Increase activity as tolerated Continue nebulizer treatment: Changed to Xopenex -to prevent albuterol induced tachycardia Patient was hoping to go to rehab, As for physical therapy patient's functional status is back to baseline, recommends discharge home with home PT home health (2) Gram-positive bacteremia: Blood culture 1 set shows gram-positive cocci-coag negative staph, Possible contamination PCR MRCA negative IV vancomycin discontinued Repeat blood cultures no growth Appreciate input from ID (3) Respiratory acidosis: 2/2 CO2 retention from COPD. Resolved after BiPAP treatment Will be continued with BiPAP at night, and doing taking a nap: Current BiPAP setting IPAP 16 cmH2O/EPAP 8 cmH2O /rate 22/, FiO2 30% Patient is counseled repeatedly regarding importance of using BiPAP/trilogy machine Pulmonology following (4) COPD exacerbation: Presented with severe respiratory failure secondary to COPD exacerbation Continue on BiPAP at night, O2 via nasal cannula, please maintain SPO2 between 88-92% Respiratory status gradually improving Steroids changed to p.o. prednisone 40 mg daily's for total 5 days Continue nebulizer treatment Appreciate input from pulmonology (5) Hypertension: Continue. losartan and Toprol-XL (6) Chronic diastolic heart failure: Presented with acute decompensation of diastolic heart failure Patient reports of not taking Lasix at home (because it makes her urinate often) Recent [facility] at home documentation shows increased weight gain Coarse [place]ales noted on bibasilar lungs Possible decompensation of diastolic CHF secondary to respiratory failure, hypoxia Given 20 of IV Lasix x1 -with adequate diuresis Continue p.o. Lasix 20 mg daily Monitor daily weight (7) GERD (gastroesophageal reflux disease): Cont Protonix. Continue ranitidine (8) Fibromyalgia: At home patient is on as needed Ultram-kept on hold since admission Narcotic pain medications discontinued to prevent sedation which can worsen respiratory failure, CO2 retention (9) DVT prophylaxis: Lovenox Full Code as discussed with son who is POA. PT OT evaluation requested, appreciate input This is patient second admission in the last 2 months with COPD exacerbation/respiratory failure Marked functional decline noted Live alone, uses walker at baseline Patient is active with [facility] at home PT OT eval appreciated, patient's appears to be back to her baseline functional status And is very disappointed, as she is not accepted at rehab, was hoping to go to [facility] Does not think she will be able to return back to her home,-Says -Her cats made huge mess in her house her son and Daughter in law is trying to clean it but don't know when it will be ready she did not notice it prior to admission , as was very sick and confused /no able to breath Family also on the process of making transition to Personal intermediate _formerly [facility] But Son and Daughter in law voiced concern the pt does not have enough finances to transition to Assisted living /personal care Social service following for dc planning will be updated Subjective Patient continues to do well, respiratory status at baseline no wheeze no dyspnea on exertion no cough Did well with physical therapy, ambulated more than 200 feet without desaturation or respiratory distress Physical Exam Constitutional: WD/WN, vitals as above + obese; no acute distress Eyes: PERRL, conjunctivae normal, anicteric sclerae + anicteric sclerae ENMT: external ear and nose normal, oropharynx normal Neck: trachea midline, no thyromegaly Respiratory: Auscultation: + diminished lung sounds; no wheezes Cardiovascular: RRR, no murmur, no edema Gastrointestinal (Abdomen): normal bowel sounds, soft, nontender, no hepatosplenomegaly Skin: no rashes, warm and dry Neurologic: PERRL, EOMI, accommodation nl, no face palsy, no dysarthria moves all extremities; no focal motor deficits Psychiatric: A+Ox3, euthymic affect Results & Data Vital Signs (Past 12 Hours) Vital Signs Temp Pulse Pulse Resp BP BP Pulse Ox 06/10/19 18:00 06/10/19 17:02 149/81 H 06/10/19 16:00 108 H 06/10/19 15:22 36.5 C 102 H 20 176/94 H 94 06/10/19 15:14 83 18 95 06/10/19 11:23 97 H 18 95 06/10/19 11:17 85 L 06/10/19 07:27 74 18 98 06/10/19 06:59 36.6 C 67 20 155/82 H 98 Pulse Ox 06/10/19 18:00 97 06/10/19 17:02 06/10/19 16:00 06/10/19 15:22 06/10/19 15:14 06/10/19 11:23 06/10/19 11:17 06/10/19 07:27 06/10/19 06:59 (1) Acute and chronic respiratory failure Respiratory failure complication: hypoxia and hypercapnia Qualified Code(s): J96.21 - Acute and chronic respiratory failure with hypoxia; J96.22 - Acute and chronic respiratory failure with hypercapnia (2) Hypertension Hypertension type: unspecified Qualified Code(s): I10 - Essential (primary) hypertension (3) GERD (gastroesophageal reflux disease) Esophagitis presence: esophagitis presence not specified Qualified Code(s): K21.9 - Gastro-esophageal reflux disease without esophagitis
[2019-06-10] MEDS: ACETAMINOPHEN 325 MG TAB PO PRN (20:00)
[2019-06-11] MEDS: TRAMADOL HCL 50 MG TABLET PO PRN ×3 (00:18→23:08)
[2019-06-11] MEDS: LEVALBUTEROL 1.25MG/0.5ML NEB INH SCH ×5 (03:26→19:23)
[2019-06-11] MEDS: IPRATROPIUM BROMIDE NEB SOLN 0.02% 2.5 ML VIAL INH SCH ×5 (03:27→19:23)
[2019-06-11] MEDS: BUDESONIDE/FORMOTEROL FUMARATE 160/4.5 60 PUFFS/INHALER INH SCH ×2 (08:15→20:22)
[2019-06-11] MEDS: ENOXAPARIN INJ 40 MG/0.4 ML SYR SQ SCH (08:16)
[2019-06-11] MEDS: TIOTROPIUM BROMIDE 5 PUFF/90 MCG INH INH SCH (08:16)
[2019-06-11] MEDS: METOPROLOL SUCC 50MG EXT REL TAB PO SCH (08:17)
[2019-06-11] MEDS: MAGNESIUM OXIDE 400 MG TAB PO SCH (08:17)
[2019-06-11] MEDS: FUROSEMIDE 20 MG TAB PO SCH (08:17)
[2019-06-11] MEDS: ASPIRIN 81 MG ECTAB PO SCH (08:17)
[2019-06-11] MEDS: LOSARTAN POTASSIUM 25 MG TAB PO SCH (08:17)
[2019-06-11] MEDS: predniSONE 20 MG TAB PO SCH (08:17)
[2019-06-11] MEDS: ATORVASTATIN 40 MG TAB PO SCH (08:17)
[2019-06-11] MEDS: PANTOprazole 40 MG TAB PO SCH (08:17)
--- NOTE | 2019-06-11 15:29 | Hospitalist Progress Note ---
Date of Service June 11, 2019 Assessment & Plan (1) Acute and chronic respiratory failure: Acute respiratory failure is resolved and patient is now on her baseline nasal cannula with no respiratory distress. Continue prednisone and nebulizer therapy. Continue BiPAP at night on 12 "comfort "settings. Patient will likely go to assisted living facility/personal snf. Will need outpatient follow-up with pulmonology as soon as able. Will start romflumilast at time of discharge to help avoid future COPD exacerbations per pulm recs. (2) COPD exacerbation: improved, finish prednisone course and continue nebulizer therapy per pulmonology recommendations. (3) Gram-positive bacteremia: One of two bottles positive for coag negative staph not lugdenensis. This was likely contaminant and the patient is not clinically ill. Antibiotics were discontinued without change in clinical status. No further work-up or treatment at this point. (4) Respiratory acidosis: Chronic respiratory acidosis secondary to COPD. Continue nightly BiPAP therapy per pulmonology recommendations. Baseline CO2 is around 50-55. (5) Hypertension: Stable, continue losartan and Toprol-XL per home regimen. (6) Chronic diastolic heart failure: Acute diastolic heart failure on admission with improvement after IV Lasix. Now compensated and euvolemic on exam. Continue Lasix 20 mg p.o. daily per home regimen. Continue daily weights. (7) GERD (gastroesophageal reflux disease): Cont Protonix. Continue ranitidine (8) Fibromyalgia: Ultram as needed per home regimen. (9) DVT prophylaxis: Lovenox Full Code as discussed with son who is POA. Dispo-will need to discuss qualifications for assistance with Case Management. I would question her safety being home alone as she is likely to have a COPD exacerbation again with retained CO2 and/or hypoxia putting her at risk for confusion and the inability to call for help. Patient is in agreement with this. Myrna Rodriguez DO [facility] Hospitalist Subjective 73-year-old female presented with acute respiratory failure secondary to COPD exacerbation. She is breathing more at her baseline. She reports leading up to the presentation to the ER her carbon monoxide alarm went off in her house. She thought it was broken so she unplugged. She is not sure if that contributed to her symptoms coming in. Various family members and friends have been in and out of her house recently and she has cats in her we discussed that carbon oxide gas is odorless and she should get someone from the fire department or family members to ensure there is no carbon monoxide leak prior to anyone going back in the home. She verbalized understanding with intent to comply. At this point she is concerned about living alone and does not feel that she is safe to do so. Multiple providers who have seen her feel the same and she is in the process of undergoing authorization for a skilled nurse facility/assisted living facility, based on her needs. She is also feeling more compliant with BiPAP use overnight at settings 12/5 "comfort", which is what respiratory put her on last night. Initially she reports declining the trilogy, but states she does not remember doing this. She is open to using it nightly at this point. She is concerned about finances. Review of Systems Review of Systems: All systems reviewed & are unremarkable except as noted in HPI & below Physical Exam Physical Exam: CONSTITUTIONAL: WNWD, vitals as above, generally well- appearing EYES: normal conjunctivae, no scleral icterus ENT: MMM RESPIRATORY: poor air movement especially at the bases bilaterally without wheezing. Crackles heard at bases bilaterally. normal respiratory effort, supplemental oxygen in place with nasal canula. CARDIOVASCULAR: regular rate and rhythm, S1 and 2 heard without murmurs, gallops or rubs, no JVD, no peripheral edema GASTROINTESTINAL: soft, nontender, nondistended MUSCULOSKELETAL: strength 5/5 throughout, head is normocephalic and atraumatic SKIN: warm and dry NEUROLOGIC: No facial palsy, no dysarthria. CN 2-12 grossly intact, no sensory deficit, normal cognition, normal speech, no gross focal deficits. Results & Data Vital Signs (Past 12 Hours) Vital Signs Temp Pulse Pulse Resp BP BP Pulse Ox 06/11/19 15:15 36.6 C 96 H 20 147/86 H 92 06/11/19 15:11 86 20 92 06/11/19 11:12 84 20 98 06/11/19 07:11 68 18 98 06/11/19 07:00 36.8 C 63 18 136/86 98 06/11/19 03:28 69 17 96 06/11/19 03:27 69 17 94 Diagnostic Findings XR chest 1V portable CLINICAL HISTORY: Sepsis dyspnea COMPARISON STUDY: 04/22/2019 FINDINGS: Chronic atelectatic change left lung base. Lungs otherwise appear clear. Partial chronic subluxation left shoulder. Lungs otherwise appear clear. IMPRESSION: Chronic change. No acute process Medications Administered Current Inpatient Medications Acetaminophen (Tylenol) 650 mg PO Q4H PRN PRN Reason: Pain or Fever Stop: 07/06/19 18:36 Last Admin: 06/10/19 20:00 Dose: 650 mg Documented by: Albuterol (Ventolin Hfa) 2 puffs INH Q4H PRN PRN Reason: Shortness Of Breath Or Wheezing Stop: 07/08/19 08:07 Aspirin (Ecotrin Ectab) 81 mg PO QAM [facility] Stop: 07/07/19 08:59 Last Admin: 06/11/19 08:17 Dose: 81 mg Documented by: Atorvastatin Calcium (Lipitor) 40 mg PO QAM [facility] Stop: 07/07/19 08:59 Last Admin: 06/11/19 08:17 Dose: 40 mg Documented by: Budesonide/Formoterol Fumarate (Symbicort 160mcg/4.5mcg) 2 puffs INH BID [facility] Stop: 07/08/19 08:59 Last Admin: 06/11/19 08:15 Dose: 2 puffs Documented by: Calcium Carbonate (Tums) 500 mg PO BID PRN PRN Reason: Indigestion Stop: 07/08/19 08:07 Last Admin: 06/10/19 08:32 Dose: 500 mg Documented by: Diclofenac Sodium (Voltaren 1% Top) 2 appln EXT QID PRN PRN Reason: Pain Stop: 07/08/19 08:07 Docusate Sodium (Colace) 100 mg PO BID PRN PRN Reason: Constipation Stop: 07/08/19 08:07 Enoxaparin Sodium (Lovenox) 40 mg SQ QAM [facility] Stop: 07/07/19 08:59 Last Admin: 06/11/19 08:16 Dose: 40 mg Documented by: Furosemide (Lasix) 20 mg PO DAILY [facility] Stop: 07/08/19 08:59 Last Admin: 06/11/19 08:17 Dose: 20 mg Documented by: Ipratropium [place] (Atrovent 0.02% 0.5mg/2.5ml) 0.5 mg INH Q4R [facility] Stop: 07/08/19 11:44 Last Admin: 06/11/19 15:11 Dose: 0.5 mg Documented by: Levalbuterol HCl (Xopenex 1.25mg/0.5ml Neb) 1.25 mg INH Q4R [facility] Stop: 07/08/19 11:44 Last Admin: 06/11/19 15:11 Dose: 1.25 mg Documented by: Losartan Potassium (Cozaar) 25 mg PO QAM [facility] Stop: 07/07/19 08:59 Last Admin: 06/11/19 08:17 Dose: 25 mg Documented by: Magnesium Oxide (Mag-Ox) 400 mg PO QAM [facility] Stop: 07/08/19 08:59 Last Admin: 06/11/19 08:17 Dose: 400 mg Documented by: Metoprolol Succinate (Toprol Xl) 50 mg PO DAILY [facility] Stop: 07/07/19 08:59 Last Admin: 06/11/19 08:17 Dose: 50 mg Documented by: Ondansetron HCl (Zofran) 4 mg IV Q6H PRN PRN Reason: Nausea Stop: 07/06/19 18:36 Last Admin: 06/08/19 23:33 Dose: 4 mg Documented by: Pantoprazole Sodium (Protonix) 40 mg PO DAILY [facility] Stop: 07/07/19 08:59 Last Admin: 06/11/19 08:17 Dose: 40 mg Documented by: Polyethylene Glycol (Miralax Powder Packet) 17 gm PO DAILY PRN PRN Reason: Constipation Stop: 07/06/19 18:36 Prednisone (Prednisone) 40 mg PO DAILY [facility] Stop: 06/14/19 09:01 Last Admin: 06/11/19 08:17 Dose: 40 mg Documented by: Ranitidine HCl (Zantac) 150 mg PO BID [facility] Stop: 07/08/19 08:59 Last Admin: 06/11/19 08:17 Dose: 150 mg Documented by: Simethicone (Mylicon) 80 mg PO Q6H PRN PRN Reason: Dyspepsia Stop: 07/10/19 18:42 Tiotropium [place]au (Spiriva) 1 puffs INH QAM [facility] Stop: 07/08/19 08:59 Last Admin: 06/11/19 08:16 Dose: 1 puffs Documented by: Tramadol HCl (Ultram) 50 mg PO BID PRN PRN Reason: Pain Stop: 07/10/19 00:29 Last Admin: 06/11/19 10:11 Dose: 50 mg Documented by: (1) Acute and chronic respiratory failure Respiratory failure complication: hypoxia and hypercapnia Qualified Code(s): J96.21 - Acute and chronic respiratory failure with hypoxia; J96.22 - Acute and chronic respiratory failure with hypercapnia (2) Hypertension Hypertension type: unspecified Qualified Code(s): I10 - Essential (primary) hypertension (3) GERD (gastroesophageal reflux disease) Esophagitis presence: esophagitis presence not specified Qualified Code(s): K21.9 - Gastro-esophageal reflux disease without esophagitis
[2019-06-12] MEDS: IPRATROPIUM BROMIDE NEB SOLN 0.02% 2.5 ML VIAL INH SCH ×4 (01:05→19:41)
[2019-06-12] MEDS: LEVALBUTEROL 1.25MG/0.5ML NEB INH SCH ×4 (01:06→19:43)
[2019-06-12] MEDS: BUDESONIDE/FORMOTEROL FUMARATE 160/4.5 60 PUFFS/INHALER INH SCH ×2 (07:59→20:16)
[2019-06-12] MEDS: TIOTROPIUM BROMIDE 5 PUFF/90 MCG INH INH SCH (07:59)
[2019-06-12] MEDS: ACETAMINOPHEN 325 MG TAB PO PRN (08:00)
[2019-06-12] MEDS: ENOXAPARIN INJ 40 MG/0.4 ML SYR SQ SCH (08:00)
[2019-06-12] MEDS: FUROSEMIDE 20 MG TAB PO SCH (08:01)
[2019-06-12] MEDS: ATORVASTATIN 40 MG TAB PO SCH (08:01)
[2019-06-12] MEDS: ASPIRIN 81 MG ECTAB PO SCH (08:01)
[2019-06-12] MEDS: MAGNESIUM OXIDE 400 MG TAB PO SCH (08:01)
[2019-06-12] MEDS: predniSONE 20 MG TAB PO SCH (08:01)
[2019-06-12] MEDS: LOSARTAN POTASSIUM 25 MG TAB PO SCH (08:01)
[2019-06-12] MEDS: PANTOprazole 40 MG TAB PO SCH (08:01)
[2019-06-12] MEDS: METOPROLOL SUCC 50MG EXT REL TAB PO SCH (08:02)
[2019-06-12] MEDS: TRAMADOL HCL 50 MG TABLET PO PRN (11:01)
[2019-06-12 11:04] LABS: Hematocrit (blood only) 39.8 % (37-47); Hemoglobin 12.9 g/dL (12.0-16.0); Mean Corpuscular Hemoglobin 30.3 pg (25-34); Mean Corpuscular Hgb Conc 32.4 g/dL (32-36); Mean Corpuscular Volume 93.4 fL (80-100); Mean Platelet Volume 12.1 fL (7.4-10.4); Platelet Count 177 K/uL (130-400); RDW Coefficient of Variation 14.6 % (11.5-14.5); RDW Standard Deviation 49.4 fL (36.4-46.3); Red Blood Count 4.26 M/uL (4.2-5.4); White Blood Count 14.95 K/uL (4.8-10.8)
[2019-06-12 11:34] LABS: BUN Creatinine Ratio 25.6 (10-20); Creatinine Clr Calc Pharmacy 51.4 ml/min; Est GFR (African American) 72.5; Est GFR (Non-African American) 62.5; Potassium 4.1 mmol/L (3.5-5.1)
--- NOTE | 2019-06-12 15:08 | Hospitalist Progress Note ---
Date of Service June 12, 2019 Assessment & Plan (1) Acute and chronic respiratory failure: Acute respiratory failure is resolved and patient is now on her baseline nasal cannula with no respiratory distress. Continue prednisone and nebulizer therapy. Continue BiPAP at night on 12 "comfort "settings. Patient will likely go to assisted living facility/personal long-term. Will need outpatient follow-up with pulmonology as soon as able. Will start romflumilast at time of discharge to help avoid future COPD exacerbations per pulm recs. (2) COPD exacerbation: improved, finish prednisone course and continue nebulizer therapy per pulmonology recommendations. (3) Gram-positive bacteremia: One of two bottles positive for coag negative staph not lugdenensis. This was likely contaminant and the patient is not clinically ill. Antibiotics were discontinued without change in clinical status. No further work-up or treatment at this point. (4) Respiratory acidosis: Chronic respiratory acidosis secondary to COPD. Continue nightly BiPAP therapy per pulmonology recommendations. Baseline CO2 is elevated (5) Hypertension: Stable, continue losartan and Toprol-XL per home regimen. (6) Chronic diastolic heart failure: Acute diastolic heart failure on admission with improvement after IV Lasix. Now compensated and euvolemic on exam. Continue Lasix 20 mg p.o. daily per home regimen. Continue daily weights. (7) GERD (gastroesophageal reflux disease): Cont Protonix. Continue ranitidine (8) Fibromyalgia: Ultram as needed per home regimen. (9) DVT prophylaxis: Lovenox Full Code Dispo-uncertain at this time. Looking into personal long-term options. Myrna Rodriguez, [facility] Hospitalist Subjective Doing well, reports getting a good amount of sleep last night although could not tolerate BiPAP more than an hour. She reports breathing at baseline. Denies any cough, fevers, chills, shortness of breath or chest pain. She reports the fire department is looking into her carbon monoxide issue at home. We discussed briefly that we are continue to wait on authorization for a personal long-term. Review of Systems Review of Systems: All systems reviewed & are unremarkable except as noted in HPI & below Physical Exam Physical Exam: CONSTITUTIONAL: WNWD, vitals as above, generally well- appearing EYES: normal conjunctivae, no scleral icterus ENT: MMM RESPIRATORY: poor air movement especially at the bases bilaterally without wheezing. Crackles heard at bases bilaterally. normal respiratory effort, supplemental oxygen in place with nasal canula. CARDIOVASCULAR: regular rate and rhythm, S1 and 2 heard without murmurs, gallops or rubs, no JVD, no peripheral edema GASTROINTESTINAL: soft, nontender, nondistended MUSCULOSKELETAL: strength 5/5 throughout, head is normocephalic and atraumatic SKIN: warm and dry NEUROLOGIC: No facial palsy, no dysarthria. CN 2-12 grossly intact, no sensory deficit, normal cognition, normal speech, no gross focal deficits. Results & Data Vital Signs (Past 12 Hours) Vital Signs Temp Pulse Resp BP Pulse Ox 06/12/19 13:10 91 H 18 97 06/12/19 11:12 82 L 06/12/19 07:41 72 18 98 06/12/19 07:02 36.5 C 75 17 123/63 95 Laboratory Results Short CBC 06/12/19 Range/Units 10:49 WBC 14.95 H (4.8-10.8) K/uL Hgb 12.9 (12.0-16.0) g/dL Hct 39.8 (37-47) % Plt Count 177 (130-400) K/uL BMP 06/12/19 10:49 Sodium 140 Potassium 4.1 Chloride 98 Carbon Dioxide 37 H BUN 23 H Creatinine 0.90 Glucose 130 H Calcium 9.0 Medications Administered Current Inpatient Medications Acetaminophen (Tylenol) 650 mg PO Q4H PRN PRN Reason: Pain or Fever Stop: 07/06/19 18:36 Last Admin: 06/12/19 08:00 Dose: 650 mg Documented by: Albuterol (Ventolin Hfa) 2 puffs INH Q4H PRN PRN Reason: Shortness Of Breath Or Wheezing Stop: 07/08/19 08:07 Aspirin (Ecotrin Ectab) 81 mg PO QAM [facility] Stop: 07/07/19 08:59 Last Admin: 06/12/19 08:01 Dose: 81 mg Documented by: Atorvastatin Calcium (Lipitor) 40 mg PO QAM [facility] Stop: 07/07/19 08:59 Last Admin: 06/12/19 08:01 Dose: 40 mg Documented by: Budesonide/Formoterol Fumarate (Symbicort 160mcg/4.5mcg) 2 puffs INH BID [facility] Stop: 07/08/19 08:59 Last Admin: 08/29/19 07:59 Dose: 2 puffs Documented by: Calcium Carbonate (Tums) 500 mg PO BID PRN PRN Reason: Indigestion Stop: 07/08/19 08:07 Last Admin: 06/10/19 08:32 Dose: 500 mg Documented by: Diclofenac Sodium (Voltaren 1% Top) 2 appln EXT QID PRN PRN Reason: Pain Stop: 07/08/19 08:07 Docusate Sodium (Colace) 100 mg PO BID PRN PRN Reason: Constipation Stop: 07/08/19 08:07 Enoxaparin Sodium (Lovenox) 40 mg SQ QAM [facility] Stop: 07/07/19 08:59 Last Admin: 06/12/19 08:00 Dose: 40 mg Documented by: Furosemide (Lasix) 20 mg PO DAILY [facility] Stop: 07/08/19 08:59 Last Admin: 06/12/19 08:01 Dose: 20 mg Documented by: Ipratropium [place] (Atrovent 0.02% 0.5mg/2.5ml) 0.5 mg INH Q6R [facility] Stop: 07/11/19 18:59 Last Admin: 06/12/19 13:09 Dose: 0.5 mg Documented by: Levalbuterol HCl (Xopenex 1.25mg/0.5ml Neb) 1.25 mg INH Q6R [facility] Stop: 07/11/19 18:59 Last Admin: 06/12/19 13:09 Dose: 1.25 mg Documented by: Losartan Potassium (Cozaar) 25 mg PO QAM [facility] Stop: 07/07/19 08:59 Last Admin: 06/12/19 08:01 Dose: 25 mg Documented by: Magnesium Oxide (Mag-Ox) 400 mg PO QAM [facility] Stop: 07/08/19 08:59 Last Admin: 06/12/19 08:01 Dose: 400 mg Documented by: Metoprolol Succinate (Toprol Xl) 50 mg PO DAILY [facility] Stop: 07/07/19 08:59 Last Admin: 06/12/19 08:02 Dose: 50 mg Documented by: Ondansetron HCl (Zofran) 4 mg IV Q6H PRN PRN Reason: Nausea Stop: 07/06/19 18:36 Last Admin: 06/08/19 23:33 Dose: 4 mg Documented by: Pantoprazole Sodium (Protonix) 40 mg PO DAILY [facility] Stop: 07/07/19 08:59 Last Admin: 06/12/19 08:01 Dose: 40 mg Documented by: Polyethylene Glycol (Miralax Powder Packet) 17 gm PO DAILY PRN PRN Reason: Constipation Stop: 07/06/19 18:36 Prednisone (Prednisone) 40 mg PO DAILY [facility] Stop: 06/14/19 09:01 Last Admin: 06/12/19 08:01 Dose: 40 mg Documented by: Ranitidine HCl (Zantac) 150 mg PO BID [facility] Stop: 07/08/19 08:59 Last Admin: 06/12/19 08:01 Dose: 150 mg Documented by: Simethicone (Mylicon) 80 mg PO Q6H PRN PRN Reason: Dyspepsia Stop: 07/10/19 18:42 Tiotropium [place] (Spiriva) 1 puffs INH QAM [facility] Stop: 07/08/19 08:59 Last Admin: 06/12/19 07:59 Dose: 1 puffs Documented by: Tramadol HCl (Ultram) 50 mg PO BID PRN PRN Reason: Pain Stop: 07/10/19 00:29 Last Admin: 06/12/19 11:01 Dose: 50 mg Documented by: (1) Acute and chronic respiratory failure Respiratory failure complication: hypoxia and hypercapnia Qualified Code(s): J96.21 - Acute and chronic respiratory failure with hypoxia; J96.22 - Acute and chronic respiratory failure with hypercapnia (2) GERD (gastroesophageal reflux disease) Esophagitis presence: esophagitis presence not specified Qualified Code(s): K21.9 - Gastro-esophageal reflux disease without esophagitis (3) Hypertension Hypertension type: unspecified Qualified Code(s): I10 - Essential (primary) hypertension
[2019-06-13] MEDS: IPRATROPIUM BROMIDE NEB SOLN 0.02% 2.5 ML VIAL INH SCH ×4 (01:05→19:34)
[2019-06-13] MEDS: LEVALBUTEROL 1.25MG/0.5ML NEB INH SCH ×4 (01:06→19:34)
[2019-06-13] MEDS: TRAMADOL HCL 50 MG TABLET PO PRN ×2 (03:23→21:16)
[2019-06-13] MEDS: MAGNESIUM OXIDE 400 MG TAB PO SCH (08:35)
[2019-06-13] MEDS: FUROSEMIDE 20 MG TAB PO SCH (08:36)
[2019-06-13] MEDS: LOSARTAN POTASSIUM 25 MG TAB PO SCH (08:36)
[2019-06-13] MEDS: ENOXAPARIN INJ 40 MG/0.4 ML SYR SQ SCH (08:36)
[2019-06-13] MEDS: ASPIRIN 81 MG ECTAB PO SCH (08:36)
[2019-06-13] MEDS: ATORVASTATIN 40 MG TAB PO SCH (08:37)
[2019-06-13] MEDS: METOPROLOL SUCC 50MG EXT REL TAB PO SCH (08:37)
[2019-06-13] MEDS: predniSONE 20 MG TAB PO SCH (08:37)
[2019-06-13] MEDS: PANTOprazole 40 MG TAB PO SCH (08:37)
[2019-06-13] MEDS: BUDESONIDE/FORMOTEROL FUMARATE 160/4.5 60 PUFFS/INHALER INH SCH ×2 (08:38→20:33)
[2019-06-13] MEDS: TIOTROPIUM BROMIDE 5 PUFF/90 MCG INH INH SCH (08:38)
--- NOTE | 2019-06-13 17:15 | Hospitalist Progress Note ---
Date of Service June 13, 2019 Assessment & Plan (1) Acute and chronic respiratory failure: Acute respiratory failure is resolved and patient is now on her baseline nasal cannula with no respiratory distress. Continue prednisone to finish 5 day course and nebulizer therapy. Continue BiPAP at night on 12/ "comfort "settings. Patient will likely go to assisted living facility/personal fci. Will need outpatient follow-up with pulmonology as soon as able. Will consider starting romflumilast after discharge to help avoid future COPD exacerbations per pulm recs. (2) COPD exacerbation: improved, finish prednisone course and continue nebulizer therapy per pulmonology recommendations. Already completed short antibiotic course while admitted. (3) Gram-positive bacteremia: One of two bottles positive for coag negative staph not lugdenensis. This was likely contaminant and the patient is not clinically ill. Antibiotics were discontinued without change in clinical status. No further work-up or treatment at this point. (4) Respiratory acidosis: Chronic respiratory acidosis secondary to COPD. Continue nightly BiPAP therapy per pulmonology recommendations. Baseline CO2 is elevated. will need to requalify for a home BIPAP mask through her PCP (5) Hypertension: Stable, continue losartan and Toprol-XL per home regimen. (6) Chronic diastolic heart failure: Acute diastolic heart failure on admission with improvement after IV Lasix. Now compensated and euvolemic on exam. Continue Lasix 20 mg p.o. daily per home regimen. Continue daily weights. (7) GERD (gastroesophageal reflux disease): Cont Protonix. Continue ranitidine (8) Fibromyalgia: Ultram as needed per home regimen. (9) DVT prophylaxis: Lovenox Full Code Dispo-uncertain at this time. Looking into personal fci options. Son meeting with [facility] congressional representative soon. Myrna Rodriguez DO [facility] Hospitalist Subjective doing well overall no issues we discussed her plans moving forward to transitioning into a [facility] Review of Systems Review of Systems: All systems reviewed & are unremarkable except as noted in HPI & below Physical Exam Physical Exam: CONSTITUTIONAL: WNWD, vitals as above, generally well- appearing EYES: normal conjunctivae, no scleral icterus ENT: MMM RESPIRATORY: poor air movement especially at the bases bilaterally without wheezing. Crackles heard at bases bilaterally. normal respiratory effort, supplemental oxygen in place with nasal canula. CARDIOVASCULAR: regular rate and rhythm, S1 and 2 heard without murmurs, gallops or rubs, no JVD, no peripheral edema GASTROINTESTINAL: soft, nontender, nondistended MUSCULOSKELETAL: strength 5/5 throughout, head is normocephalic and atraumatic SKIN: warm and dry NEUROLOGIC: No facial palsy, no dysarthria. CN 2-12 grossly intact, no sensory deficit, normal cognition, normal speech, no gross focal deficits. Results & Data Vital Signs (Past 12 Hours) Vital Signs Temp Pulse Resp BP Pulse Ox Pulse Ox 06/13/19 15:01 37.1 C 96 H 16 124/76 94 06/13/19 13:27 83 20 93 06/13/19 11:27 37.1 C 76 18 126/80 94 06/13/19 11:21 94 06/13/19 08:00 96 06/13/19 07:16 78 18 96 06/13/19 07:13 36.7 C 64 16 114/84 99 Medications Administered Current Inpatient Medications Acetaminophen (Tylenol) 650 mg PO Q4H PRN PRN Reason: Pain or Fever Stop: 07/06/19 18:36 Last Admin: 06/12/19 08:00 Dose: 650 mg Documented by: Albuterol (Ventolin Hfa) 2 puffs INH Q4H PRN PRN Reason: Shortness Of Breath Or Wheezing Stop: 07/08/19 08:07 Aspirin (Ecotrin Ectab) 81 mg PO QAM [facility] Stop: 07/07/19 08:59 Last Admin: 06/13/19 08:36 Dose: 81 mg Documented by: Atorvastatin Calcium (Lipitor) 40 mg PO QAM [facility] Stop: 07/07/19 08:59 Last Admin: 06/13/19 08:37 Dose: 40 mg Documented by: Budesonide/Formoterol Fumarate (Symbicort 160mcg/4.5mcg) 2 puffs INH BID [facility] Stop: 07/08/19 08:59 Last Admin: 06/13/19 08:38 Dose: 2 puffs Documented by: Calcium Carbonate (Tums) 500 mg PO BID PRN PRN Reason: Indigestion Stop: 07/08/19 08:07 Last Admin: 06/10/19 08:32 Dose: 500 mg Documented by: Diclofenac Sodium (Voltaren 1% Top) 2 appln EXT QID PRN PRN Reason: Pain Stop: 07/08/19 08:07 Docusate Sodium (Colace) 100 mg PO BID PRN PRN Reason: Constipation Stop: 07/08/19 08:07 Enoxaparin Sodium (Lovenox) 40 mg SQ QAM [facility] Stop: 07/07/19 08:59 Last Admin: 06/13/19 08:36 Dose: 40 mg Documented by: Furosemide (Lasix) 20 mg PO DAILY [facility] Stop: 07/08/19 08:59 Last Admin: 06/13/19 08:36 Dose: 20 mg Documented by: Ipratropium [place] (Atrovent 0.02% 0.5mg/2.5ml) 0.5 mg INH Q6R [facility] Stop: 07/11/19 18:59 Last Admin: 06/13/19 13:26 Dose: 0.5 mg Documented by: Levalbuterol HCl (Xopenex 1.25mg/0.5ml Neb) 1.25 mg INH Q6R [facility] Stop: 07/11/19 18:59 Last Admin: 06/13/19 13:26 Dose: 1.25 mg Documented by: Losartan Potassium (Cozaar) 25 mg PO QAM [facility] Stop: 07/07/19 08:59 Last Admin: 06/13/19 08:36 Dose: 25 mg Documented by: Magnesium Oxide (Mag-Ox) 400 mg PO QAM [facility] Stop: 07/08/19 08:59 Last Admin: 06/13/19 08:35 Dose: 400 mg Documented by: Metoprolol Succinate (Toprol Xl) 50 mg PO DAILY [facility] Stop: 07/07/19 08:59 Last Admin: 06/13/19 08:37 Dose: 50 mg Documented by: Ondansetron HCl (Zofran) 4 mg IV Q6H PRN PRN Reason: Nausea Stop: 07/06/19 18:36 Last Admin: 06/08/19 23:33 Dose: 4 mg Documented by: Pantoprazole Sodium (Protonix) 40 mg PO DAILY [facility] Stop: 07/07/19 08:59 Last Admin: 06/13/19 08:37 Dose: 40 mg Documented by: Polyethylene Glycol (Miralax Powder Packet) 17 gm PO DAILY PRN PRN Reason: Constipation Stop: 07/06/19 18:36 Prednisone (Prednisone) 40 mg PO DAILY [facility] Stop: 06/14/19 09:01 Last Admin: 06/13/19 08:37 Dose: 40 mg Documented by: Ranitidine HCl (Zantac) 150 mg PO BID [facility] Stop: 07/08/19 08:59 Last Admin: 06/13/19 08:37 Dose: 150 mg Documented by: Simethicone (Mylicon) 80 mg PO Q6H PRN PRN Reason: Dyspepsia Stop: 07/10/19 18:42 Tiotropium [place] (Spiriva) 1 puffs INH QAM [facility] Stop: 07/08/19 08:59 Last Admin: 06/13/19 08:38 Dose: 1 puffs Documented by: Tramadol HCl (Ultram) 50 mg PO BID PRN PRN Reason: Pain Stop: 07/10/19 00:29 Last Admin: 06/13/19 03:23 Dose: 50 mg Documented by: (1) Acute and chronic respiratory failure Respiratory failure complication: hypoxia and hypercapnia Qualified Code(s): J96.21 - Acute and chronic respiratory failure with hypoxia; J96.22 - Acute and chronic respiratory failure with hypercapnia (2) GERD (gastroesophageal reflux disease) Esophagitis presence: esophagitis presence not specified Qualified Code(s): K21.9 - Gastro-esophageal reflux disease without esophagitis (3) Hypertension Hypertension type: unspecified Qualified Code(s): I10 - Essential (primary) hypertension
[2019-06-14] MEDS: IPRATROPIUM BROMIDE NEB SOLN 0.02% 2.5 ML VIAL INH SCH ×4 (01:07→18:54)
[2019-06-14] MEDS: LEVALBUTEROL 1.25MG/0.5ML NEB INH SCH ×4 (01:07→18:54)
[2019-06-14] MEDS: ATORVASTATIN 40 MG TAB PO SCH (08:06)
[2019-06-14] MEDS: METOPROLOL SUCC 50MG EXT REL TAB PO SCH (08:06)
[2019-06-14] MEDS: predniSONE 20 MG TAB PO SCH (08:07)
[2019-06-14] MEDS: TIOTROPIUM BROMIDE 5 PUFF/90 MCG INH INH SCH (08:07)
[2019-06-14] MEDS: BUDESONIDE/FORMOTEROL FUMARATE 160/4.5 60 PUFFS/INHALER INH SCH ×2 (08:07→20:27)
[2019-06-14] MEDS: PANTOprazole 40 MG TAB PO SCH (08:07)
[2019-06-14] MEDS: FUROSEMIDE 20 MG TAB PO SCH (08:08)
[2019-06-14] MEDS: MAGNESIUM OXIDE 400 MG TAB PO SCH (08:08)
[2019-06-14] MEDS: ASPIRIN 81 MG ECTAB PO SCH (08:08)
[2019-06-14] MEDS: LOSARTAN POTASSIUM 25 MG TAB PO SCH (08:08)
[2019-06-14] MEDS: ENOXAPARIN INJ 40 MG/0.4 ML SYR SQ SCH (09:14)
--- NOTE | 2019-06-14 16:56 | Hospitalist Progress Note ---
Date of Service June 14, 2019 Assessment & Plan (1) Acute and chronic respiratory failure: Acute respiratory failure is resolved and patient is now on her baseline nasal cannula with no respiratory distress. Continue prednisone and nebulizer therapy. Continue BiPAP at night on 12 "comfort "settings. Patient will likely go to assisted living facility/personal group home. Will need outpatient follow-up with pulmonology as soon as able. Will start romflumilast at time of discharge to help avoid future COPD exacerbations per pulm recs. (2) COPD exacerbation: improved, finish prednisone course and continue nebulizer therapy per pulmonology recommendations. (3) Gram-positive bacteremia: One of two bottles positive for coag negative staph not lugdenensis. This was likely contaminant and the patient is not clinically ill. Antibiotics were discontinued without change in clinical status. No further work-up or treatment at this point. (4) Respiratory acidosis: Chronic respiratory acidosis secondary to COPD. Continue nightly BiPAP therapy per pulmonology recommendations. Baseline CO2 is elevated (5) Hypertension: Stable, continue losartan and Toprol-XL per home regimen. (6) Chronic diastolic heart failure: Acute diastolic heart failure on admission with improvement after IV Lasix. Now compensated and euvolemic on exam. Continue Lasix 20 mg p.o. daily per home regimen. Continue daily weights. (7) GERD (gastroesophageal reflux disease): Cont Protonix. Continue ranitidine (8) Fibromyalgia: Ultram as needed per home regimen. (9) DVT prophylaxis: Lovenox Full Code Dispo-uncertain at this time. Looking into personal group home options. Appreciate Case Management assistance. Myrna Rodriguez DO [facility] Hospitalist Subjective doing well, denies breathing issues, denies fevers, chills, cough or other symptoms. Fluctuating happiness with overnight BIPAP but appears well-rested. Review of Systems Review of Systems: All systems reviewed & are unremarkable except as noted in HPI & below Physical Exam Physical Exam: CONSTITUTIONAL: WNWD, vitals as above, generally well- appearing EYES: normal conjunctivae, no scleral icterus ENT: MMM RESPIRATORY: poor air movement especially at the bases bilaterally without wheezing. No crackles or rales. Normal respiratory effort, supplemental oxygen in place with nasal canula. CARDIOVASCULAR: regular rate and rhythm, S1 and 2 heard without murmurs, gallops or rubs, no JVD, no peripheral edema GASTROINTESTINAL: soft, nontender, nondistended MUSCULOSKELETAL: strength 5/5 throughout, head is normocephalic and atraumatic SKIN: warm and dry NEUROLOGIC: No facial palsy, no dysarthria. CN 2-12 grossly intact, no sensory deficit, normal cognition, normal speech, no gross focal deficits. Results & Data Vital Signs (Past 12 Hours) Vital Signs Temp Pulse Resp BP Pulse Ox Pulse Ox 06/14/19 15:03 36.6 C 106 H 20 146/79 H 92 06/14/19 13:35 99 H 18 90 06/14/19 08:00 94 06/14/19 07:23 82 18 94 06/14/19 07:00 37.1 C 82 20 149/82 H 97 Medications Administered Current Inpatient Medications Acetaminophen (Tylenol) 650 mg PO Q4H PRN PRN Reason: Pain or Fever Stop: 07/06/19 18:36 Last Admin: 06/12/19 08:00 Dose: 650 mg Documented by: Albuterol (Ventolin Hfa) 2 puffs INH Q4H PRN PRN Reason: Shortness Of Breath Or Wheezing Stop: 07/08/19 08:07 Aspirin (Ecotrin Ectab) 81 mg PO QAM [facility] Stop: 07/07/19 08:59 Last Admin: 06/14/19 08:08 Dose: 81 mg Documented by: Atorvastatin Calcium (Lipitor) 40 mg PO QAM [facility] Stop: 07/07/19 08:59 Last Admin: 06/14/19 08:06 Dose: 40 mg Documented by: Budesonide/Formoterol Fumarate (Symbicort 160mcg/4.5mcg) 2 puffs INH BID [facility] Stop: 07/08/19 08:59 Last Admin: 06/14/19 08:07 Dose: 2 puffs Documented by: Calcium Carbonate (Tums) 500 mg PO BID PRN PRN Reason: Indigestion Stop: 07/08/19 08:07 Last Admin: 06/10/19 08:32 Dose: 500 mg Documented by: Diclofenac Sodium (Voltaren 1% Top) 2 appln EXT QID PRN PRN Reason: Pain Stop: 07/08/19 08:07 Docusate Sodium (Colace) 100 mg PO BID PRN PRN Reason: Constipation Stop: 07/08/19 08:07 Enoxaparin Sodium (Lovenox) 40 mg SQ QAM [facility] Stop: 07/07/19 08:59 Last Admin: 06/14/19 09:14 Dose: 40 mg Documented by: Furosemide (Lasix) 20 mg PO DAILY [facility] Stop: 07/08/19 08:59 Last Admin: 06/14/19 08:08 Dose: 20 mg Documented by: Ipratropium [place] (Atrovent 0.02% 0.5mg/2.5ml) 0.5 mg INH Q6R [facility] Stop: 07/11/19 18:59 Last Admin: 06/14/19 13:33 Dose: 0.5 mg Documented by: Levalbuterol HCl (Xopenex 1.25mg/0.5ml Neb) 1.25 mg INH Q6R [facility] Stop: 07/11/19 18:59 Last Admin: 06/14/19 13:34 Dose: 1.25 mg Documented by: Losartan Potassium (Cozaar) 25 mg PO QAM [facility] Stop: 07/07/19 08:59 Last Admin: 06/14/19 08:08 Dose: 25 mg Documented by: Magnesium Oxide (Mag-Ox) 400 mg PO QAM [facility] Stop: 07/08/19 08:59 Last Admin: 06/14/19 08:08 Dose: 400 mg Documented by: Metoprolol Succinate (Toprol Xl) 50 mg PO DAILY [facility] Stop: 07/07/19 08:59 Last Admin: 06/14/19 08:06 Dose: 50 mg Documented by: Ondansetron HCl (Zofran) 4 mg IV Q6H PRN PRN Reason: Nausea Stop: 07/06/19 18:36 Last Admin: 06/08/19 23:33 Dose: 4 mg Documented by: Pantoprazole Sodium (Protonix) 40 mg PO DAILY [facility] Stop: 07/07/19 08:59 Last Admin: 06/14/19 08:07 Dose: 40 mg Documented by: Polyethylene Glycol (Miralax Powder Packet) 17 gm PO DAILY PRN PRN Reason: Constipation Stop: 07/06/19 18:36 Ranitidine HCl (Zantac) 150 mg PO BID [facility] Stop: 07/08/19 08:59 Last Admin: 06/14/19 08:07 Dose: 150 mg Documented by: Simethicone (Mylicon) 80 mg PO Q6H PRN PRN Reason: Dyspepsia Stop: 07/10/19 18:42 Tiotropium [place] (Spiriva) 1 puffs INH QAM [facility] Stop: 07/08/19 08:59 Last Admin: 06/14/19 08:07 Dose: 1 puffs Documented by: Tramadol HCl (Ultram) 50 mg PO BID PRN PRN Reason: Pain Stop: 07/10/19 00:29 Last Admin: 06/13/19 21:16 Dose: 50 mg Documented by: (1) Acute and chronic respiratory failure Respiratory failure complication: hypoxia and hypercapnia Qualified Code(s): J96.21 - Acute and chronic respiratory failure with hypoxia; J96.22 - Acute and chronic respiratory failure with hypercapnia (2) GERD (gastroesophageal reflux disease) Esophagitis presence: esophagitis presence not specified Qualified Code(s): K21.9 - Gastro-esophageal reflux disease without esophagitis (3) Hypertension Hypertension type: unspecified Qualified Code(s): I10 - Essential (primary) hypertension
[2019-06-14] MEDS: TRAMADOL HCL 50 MG TABLET PO PRN (20:27)
[2019-06-15] MEDS: LEVALBUTEROL 1.25MG/0.5ML NEB INH SCH ×4 (01:03→18:56)
[2019-06-15] MEDS: IPRATROPIUM BROMIDE NEB SOLN 0.02% 2.5 ML VIAL INH SCH ×4 (01:03→18:56)
[2019-06-15] MEDS: BUDESONIDE/FORMOTEROL FUMARATE 160/4.5 60 PUFFS/INHALER INH SCH ×2 (07:42→21:48)
[2019-06-15] MEDS: METOPROLOL SUCC 50MG EXT REL TAB PO SCH (07:43)
[2019-06-15] MEDS: ASPIRIN 81 MG ECTAB PO SCH (07:43)
[2019-06-15] MEDS: PANTOprazole 40 MG TAB PO SCH (07:43)
[2019-06-15] MEDS: LOSARTAN POTASSIUM 25 MG TAB PO SCH (07:43)
[2019-06-15] MEDS: ATORVASTATIN 40 MG TAB PO SCH (07:43)
[2019-06-15] MEDS: TIOTROPIUM BROMIDE 5 PUFF/90 MCG INH INH SCH (07:44)
[2019-06-15] MEDS: MAGNESIUM OXIDE 400 MG TAB PO SCH (07:44)
[2019-06-15] MEDS: ENOXAPARIN INJ 40 MG/0.4 ML SYR SQ SCH (07:44)
[2019-06-15] MEDS: FUROSEMIDE 20 MG TAB PO SCH (07:46)
--- NOTE | 2019-06-15 13:49 | Hospitalist Progress Note ---
Date of Service June 15, 2019 Assessment & Plan (1) Acute and chronic respiratory failure: Acute respiratory failure is resolved and patient is now on her baseline nasal cannula with no respiratory distress. Continue prednisone and nebulizer therapy. Continue BiPAP at night on 12 "comfort "settings. Patient will likely go to assisted living facility/personal correction but may go home if this option is unavailable. Will need outpatient follow-up with pulmonology as soon as able. Will start romflumilast shortly after discharge to help avoid future COPD exacerbations per pulm recs. Defer to PCP to start this and follow outcomes. (2) COPD exacerbation: improved, finished prednisone course and continue nebulizer therapy per pulmonology recommendations. (3) Gram-positive bacteremia: One of two bottles positive for coag negative staph not lugdenensis. This was likely contaminant and the patient is not clinically ill. Antibiotics were discontinued without change in clinical status. No further work-up or treatment at this point. (4) Respiratory acidosis: Chronic respiratory acidosis secondary to COPD. Continue nightly BiPAP therapy per pulmonology recommendations. Baseline CO2 is elevated (5) Hypertension: Stable, continue losartan and Toprol-XL per home regimen. (6) Chronic diastolic heart failure: Acute diastolic heart failure on admission with improvement after IV Lasix. Now compensated and euvolemic on exam. Continue Lasix 20 mg p.o. daily per home regimen. Continue daily weights. (7) GERD (gastroesophageal reflux disease): Cont Protonix. Continue ranitidine (8) Fibromyalgia: Ultram as needed per home regimen. (9) DVT prophylaxis: Lovenox Full Code Dispo[facility] meeting with family today to decide on dispo. Working with CM on this. Myrna Rodriguez DO [facility] Hospitalist Subjective No changes rested well overnight no breathing difficulties. Awaiting information about going into [facility]. Review of Systems Review of Systems: All systems reviewed & are unremarkable except as noted in HPI & below Physical Exam Physical Exam: CONSTITUTIONAL: WNWD, vitals as above, generally well-appea ring EYES: normal conjunctivae, no scleral icterus ENT: MMM RESPIRATORY: poor air movement especially at the bases bilaterally without wheezing. No crackles or rales on auscultation. Normal respiratory effort, supplemental oxygen in place with nasal canula. CARDIOVASCULAR: regular rate and rhythm, S1 and 2 heard without murmurs, gallops or rubs, no JVD, no peripheral edema GASTROINTESTINAL: soft, nontender, nondistended MUSCULOSKELETAL: strength 5/5 throughout, head is normocephalic and atraumatic SKIN: warm and dry NEUROLOGIC: No facial palsy, no dysarthria. CN 2-12 grossly intact, no sensory deficit, normal cognition, normal speech, no gross focal deficits. Results & Data Vital Signs (Past 12 Hours) Vital Signs Temp Pulse Resp BP Pulse Ox 06/15/19 13:34 83 18 98 06/15/19 07:21 37.1 C 81 20 151/85 H 06/15/19 07:09 86 18 99 Medications Administered Current Inpatient Medications Acetaminophen (Tylenol) 650 mg PO Q4H PRN PRN Reason: Pain or Fever Stop: 07/06/19 18:36 Last Admin: 06/12/19 08:00 Dose: 650 mg Documented by: Albuterol (Ventolin Hfa) 2 puffs INH Q4H PRN PRN Reason: Shortness Of Breath Or Wheezing Stop: 07/08/19 08:07 Aspirin (Ecotrin Ectab) 81 mg PO QAM [facility] Stop: 07/07/19 08:59 Last Admin: 06/15/19 07:43 Dose: 81 mg Documented by: Atorvastatin Calcium (Lipitor) 40 mg PO QAM [facility] Stop: 07/07/19 08:59 Last Admin: 06/15/19 07:43 Dose: 40 mg Documented by: Budesonide/Formoterol Fumarate (Symbicort 160mcg/4.5mcg) 2 puffs INH BID [facility] Stop: 07/08/19 08:59 Last Admin: 06/15/19 07:42 Dose: 2 puffs Documented by: Calcium Carbonate (Tums) 500 mg PO BID PRN PRN Reason: Indigestion Stop: 07/08/19 08:07 Last Admin: 06/10/19 08:32 Dose: 500 mg Documented by: Diclofenac Sodium (Voltaren 1% Top) 2 appln EXT QID PRN PRN Reason: Pain Stop: 07/08/19 08:07 Docusate Sodium (Colace) 100 mg PO BID PRN PRN Reason: Constipation Stop: 07/08/19 08:07 Enoxaparin Sodium (Lovenox) 40 mg SQ QAM [facility] Stop: 07/07/19 08:59 Last Admin: 06/15/19 07:44 Dose: 40 mg Documented by: Furosemide (Lasix) 20 mg PO DAILY [facility] Stop: 07/08/19 08:59 Last Admin: 06/15/19 07:46 Dose: Not Given Documented by: Ipratropium [place] (Atrovent 0.02% 0.5mg/2.5ml) 0.5 mg INH Q6R [facility] Stop: 07/11/19 18:59 Last Admin: 06/15/19 13:34 Dose: 0.5 mg Documented by: Levalbuterol HCl (Xopenex 1.25mg/0.5ml Neb) 1.25 mg INH Q6R [facility] Stop: 07/11/19 18:59 Last Admin: 06/15/19 13:34 Dose: 1.25 mg Documented by: Losartan Potassium (Cozaar) 25 mg PO QAM [facility] Stop: 07/07/19 08:59 Last Admin: 06/15/19 07:43 Dose: 25 mg Documented by: Magnesium Oxide (Mag-Ox) 400 mg PO QAM [facility] Stop: 07/08/19 08:59 Last Admin: 06/15/19 07:44 Dose: 400 mg Documented by: Metoprolol Succinate (Toprol Xl) 50 mg PO DAILY [facility] Stop: 07/07/19 08:59 Last Admin: 06/15/19 07:43 Dose: 50 mg Documented by: Ondansetron HCl (Zofran) 4 mg IV Q6H PRN PRN Reason: Nausea Stop: 07/06/19 18:36 Last Admin: 06/08/19 23:33 Dose: 4 mg Documented by: Pantoprazole Sodium (Protonix) 40 mg PO DAILY [facility] Stop: 07/07/19 08:59 Last Admin: 06/15/19 07:43 Dose: 40 mg Documented by: Polyethylene Glycol (Miralax Powder Packet) 17 gm PO DAILY PRN PRN Reason: Constipation Stop: 07/06/19 18:36 Ranitidine HCl (Zantac) 150 mg PO BID [facility] Stop: 07/08/19 08:59 Last Admin: 06/15/19 07:43 Dose: 150 mg Documented by: Simethicone (Mylicon) 80 mg PO Q6H PRN PRN Reason: Dyspepsia Stop: 07/10/19 18:42 Tiotropium [place] (Spiriva) 1 puffs INH QAM [facility] Stop: 07/08/19 08:59 Last Admin: 06/15/19 07:44 Dose: 1 puffs Documented by: Tramadol HCl (Ultram) 50 mg PO BID PRN PRN Reason: Pain Stop: 07/10/19 00:29 Last Admin: 06/14/19 20:27 Dose: 50 mg Documented by: (1) Acute and chronic respiratory failure Respiratory failure complication: hypoxia and hypercapnia Qualified Code(s): J96.21 - Acute and chronic respiratory failure with hypoxia; J96.22 - Acute and chronic respiratory failure with hypercapnia (2) GERD (gastroesophageal reflux disease) Esophagitis presence: esophagitis presence not specified Qualified Code(s): K21.9 - Gastro-esophageal reflux disease without esophagitis (3) Hypertension Hypertension type: unspecified Qualified Code(s): I10 - Essential (primary) hypertension
[2019-06-15] MEDS: TRAMADOL HCL 50 MG TABLET PO PRN (19:57)
[2019-06-16] MEDS: IPRATROPIUM BROMIDE NEB SOLN 0.02% 2.5 ML VIAL INH SCH ×2 (00:53→07:17)
[2019-06-16] MEDS: LEVALBUTEROL 1.25MG/0.5ML NEB INH SCH ×2 (00:53→07:17)
--- NOTE | 2019-06-16 07:57 | Discharge Summary ---
Date of Service June 16, 2019 Admission HPI Per Admitting Provider 73-year-old female with multiple recent hospitalizations for acute respiratory failure secondary to COPD exacerbation presents after being found at home by family short of breath. She was recently admitted 04/22/2019 through 04/26/2019 and was sent home on trilogy, a noninvasive home ventilator. She has a history of bronchoscopy on 04/[address] Chowdhury which revealed chronic mucopurulent bronchitis with mucoid impaction and dynamic airway collapse involving the distal third of trachea and left tracheobronchial tree. She was also given a prednisone taper at time of discharge and had been treated with Levaquin during the hospitalization. At this time she is encephalopathic likely secondary to hypercarbia, and history is limited secondary to this and the BiPAP mask that she is wearing. No family members are present. Review of systems is unable to be obtained. Admission Exam Per Admitting Provider CONSTITUTIONAL: [facility], vitals as above, generally well-appearing EYES: normal conjunctivae, no scleral icterus ENT: MMM RESPIRATORY: poor air movement especially at the bases bilaterally without wheezing. Crackles heard at bases bilaterally. normal respiratory effort, supplemental oxygen in place with nasal canula. CARDIOVASCULAR: regular rate and rhythm, S1 and 2 heard without murmurs, gallops or rubs, no JVD, no peripheral edema GASTROINTESTINAL: soft, nontender, nondistended MUSCULOSKELETAL: strength 5/5 throughout, head is normocephalic and atraumatic SKIN: warm and dry NEUROLOGIC: No facial palsy, no dysarthria. CN 2-12 grossly intact, no sensory deficit, normal cognition, normal speech, no gross focal deficits. Principal Diagnosis Acute respiratory failure 2/2 COPD exacerbation Chronic respiratory failure Discharge Data Allergies Allergy/AdvReac Type Severity Reaction Status Date / Time duloxetine [From Cymbalta] Allergy Rash Verified 06/06/19 14:39 naproxen AdvReac Mild GI Verified 06/06/19 14:39 SYMPTOMS-PT DENIES Consultations 06/06/19 15:24 ED Decision to Admit Stat 06/06/19 18:37 Consult Case Management - Discharge Planning Routine Consult Pulmonology Stat 06/07/19 12:23 Consult Infectious Diseases Routine Hospital Course (1) Acute and chronic respiratory failure: (2) COPD exacerbation: (3) Gram-positive bacteremia: (4) Chronic diastolic heart failure: (5) Respiratory acidosis: 73-year-old female with chronic respiratory failure secondary to end-stage COPD presented with acute respiratory failure. An ABG after 2 hours on BiPAP therapy revealed a CO2 of 129 and a pH of 7.25. Pulmonology was consulted and recommended continuing BiPAP overnight. She was started on Solu-Medrol 40 mg IV twice daily in addition to ceftriaxone and azithromycin. Nebulized bronchodilator therapy was continued every 4 hours. It was strongly recommended she was using noninvasive ventilation at all times as she was at very high risk for acute hypercapnic/hypoxemic respiratory failure without this or if she uses any sedative medications. Solu-Medrol was changed to prednisone 40 mg for a total of 5 days. There were no obvious infiltrates on chest x-ray and no clear signs of infection thus antibiotics were stopped. Consideration was given to moving the patient from living at home alone to assisted living or jail. Romflumilast was considered a smart adjunct therapy post-discharge to decrease the frequency of COPD exacerbations. Pulmonology follow-up with Dr. Chowdhury as outpatient was recommended. Physical therapy evaluated her, however, she was too functional to qualify for senior care facility. Therefore, a personal correction was a possibility and case management worked with family to try and get her there direct from the hospital. However, that was not possible during this admission. She incidentally had a positive blood culture for coagulase- negative staph likely representing a contaminant with no evidence of active infection. Infectious disease was consulted and recommended discontinuation of vancomycin while awaiting final blood culture reading. Antibiotics were not continued. On hospital day 3 coarse rales were noted on bibasilar lungs during the daily hospitalist exam. Possible decompensation of diastolic heart failure was considered and she received one dose of IV Lasix with improvement clinically. She resumed oral Lasix therapy without further evidence of decompensated heart failure this hospitalization. She continued to do well clinically and did not decompensate. Hospitalization was continued pending determination of patient transferring to personal correction, which was ultimately unsuccessful. At time of discharge she was mentating and ambulating at baseline and oxygenating on baseline supplemental oxygen. No wheezing was heard on exam and there was poor air movement that was stable finding in the setting of severe lung disease. There was no evidence of crackles or rales on lung exam. Heart exam was normal revealing S1/S2 without evidence of murmurs, gallops, rubs. She was euvolemic. She appeared well rested and in good spirits at time of discharge. Abdomen was soft and nontender. There was no peripheral edema. She was discharged in stable condition back to home in the care of her son with close primary care follow-up recommended. Primary care follow-up close to discharge will be helpful to assist patient with enrolling in [facility] at home, assisting with transferring to personal correction, and deciding about the benefits of adding Roflumilast to her medication regimen. Total Time Total Time Spent Total Time Spent (In Minutes): 60 Total Time Includes: Examination of the Patient, Discharge Planning, Medication Reconciliation and Communication With Other Providers Discharge Plan Discharge Items Patient Disposition: Home - Home Health Services Reason For Visit: ACUTE RESPIRATORY FAILURE Discharge Diagnosis: Acute respiratory failure 2/2 COPD exacerbation Chronic respiratory failure Discharge Goals: Improve disease control Activity: Resume your previous activity Non-emergency contact: Primary Care Provider Call non-emergency contact if: you have any medication questions, your symptoms worsen, your pain is not controlled, your pain is worsening, your pain is unusual for you, your pain is concerning for you and you have a fever Follow-up/Referrals: Russ Moon MD [Primary Care Provider] - Diet: Heart Healthy Addtl Provider Instructions: Please take all medications as instructed. It is recommended that you follow-up with your primary care physician within one week of discharge. This appointment would be to ensure your breathing is still stable, to help you obtain a home mask to wear at nighttime, and to discuss s tarting a new medication called ROMFLUMILAST which might decrease the frequency of COPD exacerbations for you. This last medication was a recommendation from the lung specialist who saw you in the hospital. Additionally, at this visit, your PCP can help route you into a personal correction that works for you and your family. Lastly, you would be a good candidate for our [facility] program and your entry in to this program can be discussed further at this appointment. It was a pleasure taking care of you! Please call if you have any questions or problems. You can reach a [facility] hospitalist on duty at [facility] 24 hours a day by calling [phone]. Take care of yourself. Myrna Rodriguez, DO [facility] Hospitalist Prescriptions: Continued magnesium oxide 400 mg magnesium Capsule 400 mg PO QAM RF: 0 atorvastatin 40 mg Tablet 40 mg PO QAM RF: 0 acetaminophen [Tylenol Extra Strength] 500 mg Tablet 1,000 mg PO Q6H PRN (Reason: Pain) RF: 0 calcium carbonate [Tums] 200 mg calcium (500 mg) Tablet,Chewable 200 mg PO BID PRN (Reason: Indigestion) RF: 0 losartan 25 mg Tablet 25 mg PO QAM RF: 0 albuterol sulfate [Ventolin HFA] 90 mcg/actuation Hfa Aerosol Inhaler 2 puff INHALATION Q4H PRN (Reason: Shortness Of Breath Or Wheezing) RF: 0 Spiriva with HandiHaler 18 mcg Capsule, W/Inhalation Device 1 cap INHALATION QAM RF: 0 Symbicort 160-4.5 mcg/actuation Hfa Aerosol Inhaler 2 puff INHALATION BID RF: 0 diclofenac sodium [Voltaren] 1 % Gel 2 g TOPICAL QID PRN (Reason: Pain) RF: 0 docusate sodium [Colace] 100 mg capsule 100 mg PO BID PRN (Reason: Constipation) RF: 0 ranitidine HCl 150 mg Tablet 150 mg PO BID RF: 0 aspirin [Aspir-81] 81 mg Tablet,Delayed Release (Dr/Ec) 81 mg PO QAM RF: 0 ipratropium-albuterol 0.5 mg-3 mg(2.5 mg base)/3 mL Solution For Nebulization 3 ml INHALATION QID RF: 0 furosemide [Lasix] 40 mg Tablet 20 mg PO DAILY RF: 0 metoprolol succinate 50 mg tablet extended release 24 hr 50 mg PO DAILY RF: 0 pantoprazole 40 mg Tablet,Delayed Release (Dr/Ec) 40 mg PO DAILY RF: 0 Stand-Alone Forms: [facility] Discharge Orders: Discharge Order (Routine); Ordered 06/16/19 Ordered By: Myrna Rodriguez Admission Data Admit Date/Time: 06/06/19 16:11 Attending Provider: Myrna Rodriguez Admit Provider: Myrna Rodriguez Primary Care Provider: Russ Moon Other Providers: Myrna Rodriguez ; Rizwan Hightower ; Byron Miller Service: Medical Other Interventions: Discharge Summary Assessment (RN) Last Done: 06/16/19 09:06 Pending Studies at Discharge: No DC Date/Time DO NOT enter until pt leaves facility: 06/16/19 09:35
[2019-06-16] MEDS: FUROSEMIDE 20 MG TAB PO SCH (08:20)
[2019-06-16] MEDS: ASPIRIN 81 MG ECTAB PO SCH (08:24)
[2019-06-16] MEDS: ATORVASTATIN 40 MG TAB PO SCH (08:24)
[2019-06-16] MEDS: LOSARTAN POTASSIUM 25 MG TAB PO SCH (08:24)
[2019-06-16] MEDS: PANTOprazole 40 MG TAB PO SCH (08:25)
[2019-06-16] MEDS: MAGNESIUM OXIDE 400 MG TAB PO SCH (08:25)
[2019-06-16] MEDS: BUDESONIDE/FORMOTEROL FUMARATE 160/4.5 60 PUFFS/INHALER INH SCH (08:26)
[2019-06-16] MEDS: METOPROLOL SUCC 50MG EXT REL TAB PO SCH (08:26)
[2019-06-16] MEDS: TRAMADOL HCL 50 MG TABLET PO PRN (08:27)
[2019-06-16] MEDS: ENOXAPARIN INJ 40 MG/0.4 ML SYR SQ SCH (08:29)
[2019-06-16] MEDS: TIOTROPIUM BROMIDE 5 PUFF/90 MCG INH INH SCH (09:25)
== END 2019-06-16 09:35 | disposition home health service (06) | DRG 189 ==
LOC: ED 12:45 → 2S 16:11 → SUATTDRO 16:11 → 2S 18:47 → 2W 06-08 19:27

== ENCOUNTER 2019-07-12 09:45 | Inpatient (IN) ==
[2019-07-12] MEDS ORDERED: ALBUT/IPRATROP 3MG/0.5MG NEB 3 ML VIAL NEB STA (11:28)
[2019-07-12] MEDS ORDERED: HYDROCODONE/ACETAMOPHEN 5/325MG TAB PO ONE (11:28)
[2019-07-12] MEDS ORDERED: methylPREDNISolone 125 MG in SYRINGE 0 ML IV ONE (11:30)
[2019-07-12] MEDS ORDERED: methylPREDNISolone 125 MG/2 ML VIAL ONE (11:36)
[2019-07-12 11:47] LABS: Basophils # (auto) 0.01 K/uL (0-0.2); Basophils % (auto) 0.1 %; Eosinophils # (auto) 0.12 K/uL (0-0.5); Eosinophils % (auto) 1.5 %; Hematocrit (blood only) 44.5 % (37-47); Hemoglobin 13.1 g/dL (12.0-16.0); Immature Granulocytes # (auto) 0.02 K/uL (0.00-0.02); Immature Granulocytes % (auto) 0.3 %; Lymphocytes # (auto) 0.96 K/uL (1.2-3.4); Lymphocytes % (auto) 12.3 %; Mean Corpuscular Hemoglobin 29.2 pg (25-34); Mean Corpuscular Hgb Conc 29.4 g/dL (32-36); Mean Corpuscular Volume 99.1 fL (80-100); Mean Platelet Volume 11.3 fL (7.4-10.4); Monocytes # (auto) 0.63 K/uL (0.11-0.59); Monocytes % (auto) 8.1 %; Neutrophils # (auto) 6.04 K/uL (1.4-6.5); Neutrophils % (auto) 77.7 %; Platelet Count 214 K/uL (130-400); RDW Standard Deviation 49.9 fL (36.4-46.3); Red Blood Count 4.49 M/uL (4.2-5.4); White Blood Count 7.78 K/uL (4.8-10.8)
[2019-07-12 11:56] LABS: INR 1.1 (0.9-1.1); Prothrombin Time 10.8 Seconds (9.0-12.0)
--- NOTE | 2019-07-12 12:20 | XRay Report ---
RIGHT ANKLE 3 VIEWS HISTORY: Right lateral ankle pain COMPARISON: None. FINDINGS: The bones are osteopenic. Small well-corticated ossific density adjacent to the tip of the lateral malleolus consistent with an old avulsion injury. Mild soft tissue swelling. Tiny plantar ezio l spur. Small nondisplaced fracture at the dorsal aspect of the anterior talus consistent with an acu te avulsion fracture. IMPRESSION: Small nondisplaced fracture at the dorsal aspect of the anterior talus consistent with an acute avuls ion fracture. Otherwise, no acute fracture or dislocation within the right ankle. Electronically signed by: Brayan Estrada M.D. 07/12/2019 12:19 PM
[2019-07-12 12:22] LABS: BUN Creatinine Ratio 26.6 (10-20); Blood Urea Nitrogen 17 mg/dl (7-18); Calcium 9.6 mg/dl (8.5-10.1); Carbon Dioxide 51 mmol/L (21-32); Chloride 91 mmol/L (98-107); Est GFR (African American) 101.7; Est GFR (Non-African American) 87.7; Glucose 124 mg/dl (70-99); Potassium 4.4 mmol/L (3.5-5.1); Sodium 141 mmol/L (136-145)
--- NOTE | 2019-07-12 12:28 | Emergency Department Note ---
History of Present Illness General Chief complaint: Ankle Pain Stated complaint: R knee & ankle pain History of Present Illness Maximum Pain Intensity: 2 This patient is a 73-year-old female presents to the emergency department via ALS for evaluation of right ankle pain. The patient reports having a history of tremors. She was sitting in a chair and tried to get up when she fell twisting the right ankle. She landed on a carpeted surface. She did not hit her head. She has not taken anything for pain. The pain is worse with weightbearing. The patient also is complaining of worsening shortness of breath. She has a history of COPD. She wears oxygen 2 L per nasal cannula at all times. She reports a mild nonproductive cough. No fever or chills. She has been taking her medications as directed. She denies any fever. Home Medications Home Medications Medication Instructions Recorded Confirmed Type acetaminophen [Tylenol Extra 1,000 mg PO Q6H PRN 12/14/18 07/12/19 History Strength] albuterol sulfate [Ventolin HFA] 2 puff INHALATION Q4H PRN 12/14/18 07/12/19 History atorvastatin 40 mg PO QAM 12/14/18 07/12/19 History calcium carbonate [Tums] 200 mg PO BID PRN 12/14/18 07/12/19 History diclofenac sodium [Voltaren] 2 g TOPICAL QID PRN 12/14/18 07/12/19 History losartan 25 mg PO QAM 12/14/18 07/12/19 History magnesium oxide 400 mg PO QAM 02/13/19 07/12/19 History aspirin [Aspir-81] 81 mg PO QAM 03/31/19 07/12/19 History docusate sodium [Colace] 100 mg PO BID PRN 03/31/19 07/12/19 History ranitidine HCl 150 mg PO BID 03/31/19 07/12/19 History furosemide [Lasix] 20 mg PO DAILY 04/22/19 07/12/19 History ipratropium-albuterol 3 ml INHALATION QID 04/22/19 07/12/19 History metoprolol succinate 50 mg PO DAILY 04/22/19 07/12/19 History pantoprazole 40 mg PO DAILY 04/22/19 07/12/19 History budesonide-formoterol HFA 160 2 puff INHALATION BID 30 Days 06/20/19 07/12/19 Rx mcg-4.5 mcg/actuation aerosol #10.2 gm inhaler roflumilast 250 mcg tablet 250 mcg PO DAILY 30 Days #30 tab 06/20/19 07/12/19 Rx tiotropium bromide 18 mcg capsule 1 cap INHALATION QAM 30 Days #30 06/20/19 07/12/19 Rx with inhalation device puffs Allergies Allergy/AdvReac Type Severity Reaction Status Date / Time duloxetine [From Cymbalta] Allergy Rash Verified 07/12/19 11:07 naproxen AdvReac Mild GI Verified 07/12/19 11:07 SYMPTOMS-PT DENIES Past Med/Surg History Medical History Multiple fractures of ribs of left side (Resolved) Chronic diastolic heart failure (Chronic) Chronic respiratory failure with hypoxia, on home O2 therapy (Chronic) OXYGEN 2L/MIN DAYTIME/3L/MIN HS VIA NC Hypertension (Chronic) COPD (chronic obstructive pulmonary disease) (Chronic) On 07/28/15 14:30 Verenice Guillen wrote "severity to be determined " Dyslipidemia (Chronic) GERD (gastroesophageal reflux disease) (Chronic) Fibromyalgia (Chronic) BCC (basal cell carcinoma of skin) (Chronic) "s/p MOHS surgery" Osteoporosis (Chronic) Sinus tachycardia (Chronic) SOB (shortness of breath) on exertion Surgical History Status post appendectomy (Chronic) Status post hysterectomy (Chronic) Status post repair of ventral hernia (Chronic) Hx of cataract surgery (Chronic) S/P Mohs surgery for basal cell carcinoma (Chronic) Family History Grandfather (Maternal) Family hx of colon cancer Father FH: kidney cancer Other Kidney disease Lung disease Social History Preferred Language: [place] Communication Ability: Effective 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 Beliefs That Will Affect Care: None marital status: / Current Living Situation: Alone current occupational status: retired Other Information That Helps Us Care for You: No Feels Safe at Home: Yes Safety Concerns: Feels Safe At This Time Smoking Status: Former smoker Tobacco Type: cigarettes ; Cigarettes Per Day: unsure when she quit ; Second Hand Exposure: No ; Hx Alcohol Use: No Hx Substance Use: No Review of Systems A total of 10 systems reviewed and were otherwise negative Physical Exam Vital Signs Vital Signs - 24 hr 07/12/19 09:56 07/12/19 11:20 07/12/19 11:41 Temperature 36.8 C Temperature Source Oral Sepsis Recent Fever Within 48 Hours No Sepsis Action Taken by Nursing No Action Required Pulse Rate 110 H Pulse Rate [Right Finger] 109 H 103 H Respiratory Rate 20 22 22 Respiratory Effort / Characteristics Spontaneous Accessory Muscle Use Respiratory Depth Blood Pressure 156/84 H Blood Pressure [Left Arm] 142/80 H Blood Pressure Mean 108 Blood Pressure Mean [Left Arm] 100 Pulse Oximetry 100 98 97 Oxygen Delivery Method Nasal Cannula Nasal Cannula Nasal Cannula Oxygen Flow Rate 2 2 07/12/19 12:32 07/12/19 13:00 07/12/19 13:41 Temperature Temperature Source Sepsis Recent Fever Within 48 Hours Sepsis Action Taken by Nursing Pulse Rate Pulse Rate [Right Finger] 96 H 98 H Respiratory Rate 24 24 Respiratory Effort / Characteristics Non-Labored Respiratory Depth Normal Blood Pressure Blood Pressure [Left Arm] 159/75 H 129/74 Blood Pressure Mean Blood Pressure Mean [Left Arm] 103 92 Pulse Oximetry 98 98 Oxygen Delivery Method Nasal Cannula Nasal Cannula Nasal Cannula Oxygen Flow Rate 2 2 2 07/12/19 14:01 07/12/19 14:31 Temperature Temperature Source Sepsis Recent Fever Within 48 Hours Sepsis Action Taken by Nursing Pulse Rate Pulse Rate [Right Finger] 97 H 110 H Respiratory Rate 22 24 Respiratory Effort / Characteristics Spontaneous Respiratory Depth Blood Pressure Blood Pressure [Left Arm] 157/72 H Blood Pressure Mean Blood Pressure Mean [Left Arm] 100 Pulse Oximetry 93 99 Oxygen Delivery Method Nasal Cannula BiPAP Oxygen Flow Rate 3 Constitutional WD/WN, vitals as above Chronically ill in appearance Eyes EOM intact bilaterally ENMT external ear and nose normal, oropharynx normal Neck trachea midline Respiratory Diffuse decreased breath sounds in all lung ambriz. No significant wheezing. Tachypneic Cardiovascular RRR, no murmur, no edema Gastrointestinal (Abdomen) normal bowel sounds, soft, nontender, no hepatosplenomegaly Musculoskeletal no cyanosis or clubbing, extremities motor strength 5/5 Tenderness to palpation over the right lateral ankle. No significant edema noted. Dorsiflexion and plantarflexion intact. No tenderness over the proximal tibia or fibula. Skin no rashes, warm and dry Neurologic Alert and oriented x3. She does seem slightly confused. Very poor historian. Answering most questions appropriately. Psychiatric Acting appropriately Course Patient was seen and examined Vital signs including blood pressure were reviewed medications list was verified with patient Labs were obtained, and a saline lock was established Patient was ordered a DuoNeb. She was also ordered Solu-Medrol 125 mg IV. She was given [place] for pain. Imaging was performed and reviewed Upon reevaluation, her breathing was not significantly improved. She was given an hour-long DuoNeb. We discussed her results. She voiced understanding. She was also seen by my supervising physician who is in agreement with my plan A gel ankle splint was ordered for the ankle The patient's breathing did not improve after the DuoNeb. She was put on BiPAP. The [facility] hospitalist service was consulted. They kindly agreed to evaluate the patient for possible inpatient management. The patient was in agreement. Consultations Consultation #1: [facility] hospitalist service Administered Medications Albuterol (Duoneb) 3 ml NEB Q4R UCHE Stop: 08/11/19 18:59 Last Admin: 07/12/19 19:01 Dose: 3 ml Documented by: [id number] Budesonide/Formoterol Fumarate (Symbicort 160mcg/4.5mcg) 2 puffs INH BID UCHE Stop: 08/11/19 20:59 Last Admin: 07/12/19 20:24 Dose: 2 puffs Documented by: [id number] Heparin Sodium (Porcine) (Heparin Sodium (Porcine)) 5,000 units SQ Q12 UCHE Stop: 08/11/19 20:59 Last Admin: 07/12/19 20:24 Dose: 5,000 units Documented by: [id number] Cosigned by: [id number] Methylprednisolone 40 mg/ (Syringe) 0.64 mls @ 1.5 mls/min IV Q8H UCHE Stop: 08/11/19 19:59 Last Admin: 07/12/19 20:54 Dose: 1.5 mls/min Documented by: [id number] Losartan Potassium (Cozaar) 25 mg PO QAM UCHE Stop: 08/11/19 16:31 Last Admin: 07/12/19 17:38 Dose: Not Given Documented by: [id number] Ranitidine HCl (Zantac) 150 mg PO BID UCHE Stop: 08/11/19 20:59 Last Admin: 07/12/19 20:24 Dose: 150 mg Documented by: [id number] Discontinued Medications Hydrocodone Bitart/Acetaminophen ([place] 5/325) 1 tab PO ONE ONE Stop: 07/12/19 11:29 Last Admin: 07/12/19 11:52 Dose: 1 tab Documented by: [id number] Albuterol (Duoneb) 3 ml NEB NOW STA Stop: 07/12/19 11:29 Last Admin: 07/12/19 11:39 Dose: 3 ml Documented by: [id number] Albuterol (Duoneb) 12 ml NEB ONE ONE Stop: 07/12/19 13:23 Last Admin: 07/12/19 13:59 Dose: 12 ml Documented by: [id number] Albuterol (Duoneb) 3 ml INH QIDR UCHE Stop: 08/11/19 18:59 Last Admin: 07/12/19 20:35 Dose: Not Given Documented by: [id number] Methylprednisolone 125 mg/ (Syringe) 2 mls @ 1.5 mls/min IV ONE ONE Stop: 07/12/19 11:31 Last Admin: 07/12/19 11:53 Dose: Not Given Documented by: [id number] Methylprednisolone (Solumedrol) Confirm Administered Dose 125 mg .ROUTE .STK-MED ONE Stop: 07/12/19 11:37 Last Admin: 07/12/19 11:52 Dose: 125 mg Documented by: [id number] Medical Decision Making Medical Records Attestation: I reviewed the patient's medical records. Home Medications Current Medication List: was personally reviewed by me Laboratory Data Attestation: I reviewed the patient's lab results. Result diagrams: 07/12/19 11:34 07/12/19 11:34 Lab Results 07/12/19 07/12/19 07/12/19 Range/Units 11:34 11:34 11:34 WBC 7.78 (4.8-10.8) K/uL RBC 4.49 (4.2-5.4) M/uL Hgb 13.1 (12.0-16.0) g/dL Hct 44.5 (37-47) % MCV 99.1 (80-100) fL MCH 29.2 (25-34) pg MCHC 29.4 L (32-36) g/dL RDW Std Deviation 49.9 H (36.4-46.3) fL RDW Coeff of Reg 14.0 (11.5-14.5) % Plt Count 214 (130-400) K/uL MPV 11.3 H (7.4-10.4) fL Immature Gran % (Auto) 0.3 % Neut % (Auto) 77.7 % Lymph % (Auto) 12.3 % [place] % (Auto) 8.1 % Eos % (Auto) 1.5 % Baso % (Auto) 0.1 % Immature Gran # (Auto) 0.02 (0.00-0.02) K/uL Neut # (Auto) 6.04 (1.4-6.5) K/uL Lymph # (Auto) 0.96 L (1.2-3.4) K/uL [place] # (Auto) 0.63 H (0.11-0.59) K/uL Eos # (Auto) 0.12 (0-0.5) K/uL Baso # (Auto) 0.01 (0-0.2) K/uL PT 10.8 (9.0-12.0) Seconds INR 1.1 (0.9-1.1) ABG pH ABG pCO2 ABG pO2 ABG HCO3 ABG O2 Saturation ABG Base Excess Clarence Test Barometric Pressure Oxygen Given Sodium 141 (136-145) mmol/L Potassium 4.4 (3.5-5.1) mmol/L Chloride 91 L (98-107) mmol/L Carbon Dioxide 51 H* (21-32) mmol/L Anion Gap -1.0 L (3-11) BUN 17 (7-18) mg/dl Creatinine 0.63 (0.6-1.2) mg/dl Est Cr Clr Drug Dosing Not Reportable Est GFR ( Amer) 101.7 Est GFR (Non-Af Amer) 87.7 BUN/Creatinine Ratio 26.6 H (10-20) Glucose 124 H (70-99) mg/dl Calcium 9.6 (8.5-10.1) mg/dl 07/12/19 07/12/19 Range/Units 13:05 13:48 WBC (4.8-10.8) K/uL RBC (4.2-5.4) M/uL Hgb (12.0-16.0) g/dL Hct (37-47) % MCV (80-100) fL MCH (25-34) pg MCHC (32-36) g/dL RDW Std Deviation (36.4-46.3) fL RDW Coeff of Reg (11.5-14.5) % Plt Count (130-400) K/uL MPV (7.4-10.4) fL Immature Gran % (Auto) % Neut % (Auto) % Lymph % (Auto) % [place] % (Auto) % Eos % (Auto) % Baso % (Auto) % Immature Gran # (Auto) (0.00-0.02) K/uL Neut # (Auto) (1.4-6.5) K/uL Lymph # (Auto) (1.2-3.4) K/uL [place] # (Auto) (0.11-0.59) K/uL Eos # (Auto) (0-0.5) K/uL Baso # (Auto) (0-0.2) K/uL PT (9.0-12.0) Seconds INR (0.9-1.1) ABG pH Cancelled 7.32 L ABG pCO2 Cancelled 99 H ABG pO2 Cancelled 72 L ABG HCO3 Cancelled 49 H ABG O2 Saturation Cancelled 93.2 ABG Base Excess Cancelled 18.2 H Clarence Test Cancelled Pos Barometric Pressure Cancelled 732.9 Oxygen Given Cancelled 2 L Sodium (136-145) mmol/L Potassium (3.5-5.1) mmol/L Chloride (98-107) mmol/L Carbon Dioxide (21-32) mmol/L Anion Gap (3-11) BUN (7-18) mg/dl Creatinine (0.6-1.2) mg/dl Est Cr Clr Drug Dosing Est GFR ( Amer) Est GFR (Non-Af Amer) BUN/Creatinine Ratio (10-20) Glucose (70-99) mg/dl Calcium (8.5-10.1) mg/dl Imaging Data Attestation: I personally reviewed and interpreted this imaging study as follows: Radiologist's Impression: Chest x-ray No significant change compared to the prior study. No acute process. Electronically signed by: Brayan Estrada M.D. 07/12/2019 12:58 PM Dictated: 07/12/19 1258 Transcribed: 07/12/19 1258 Right ankle x-ray Small nondisplaced fracture at the dorsal aspect of the anterior talus consistent with an acute avulsion fracture. Otherwise, no acute fracture or dislocation within the right ankle. Electronically signed by: Brayan Estrada M.D. 07/12/2019 12:19 PM Dictated: 07/12/19 1217 Transcribed: 07/12/19 1217 MDM Narrative Differential diagnosis: Contusion, sprain, fracture, dislocation, neurovascular compromise among others, acute on chronic respiratory failure, metabolic encephalopathy, hypercarbia, pneumonia, COPD exacerbation, pulmonary embolus, heart failure, among others This patient is a 73-year-old female who presents the emergency department by ambulance for ankle pain after mechanical fall. She did appear slightly confused. She was markedly tachypneic and was not moving much air. She has a history of chronic respiratory failure. The patient was given multiple DuoNeb's in addition to Solu-Medrol. Unfortunately, I could not get her breathing significantly improved. She was requiring BiPAP. For this reason, [facility] Hospitalist was consulted. They agreed to evaluate the patient for possible inpatient management. The patient was in agreement. Of note, she also sustained a small avulsion fracture to the talus. This will require a gel ankle splint and orthopedic follow-up. Impression & Plan Acute metabolic encephalopathy, Acute and chronic respiratory failure, Hypercarbia Discharge Plan Visit Data *Final* Discharge Date/Time: 07/12/19 16:10 Chief Complaint: Ankle Pain Stated Complaint: R knee & ankle pain ED Provider: Rayray Chemea ED Midlevel Provider: Therese Moore Discharge Problem: Acute metabolic encephalopathy, Acute and chronic respiratory failure, Hypercarbia Patient Disposition: Admitted As Inpatient Condition: Serious Discharge Instructions Interventions: ED Discharge Assessment Last Done: 07/12/19 16:10
--- NOTE | 2019-07-12 13:00 | XRay Report ---
XR chest 1V portable HISTORY: Short of breath. Cough. COMPARISON: Chest 06/06/2019. FINDINGS: Stable linear density at the left lower lobe consistent with subsegmental atelectasis or sc arring. No new focal lung consolidations to suggest pneumonia. No evidence for pulmonary edema. No pl eural effusions. No pneumothorax. The heart is stable in size. IMPRESSION: No significant change compared to the prior study. No acute process. Electronically signed by: Brayan Estrada M.D. 07/12/2019 12:58 PM
[2019-07-12] MEDS ORDERED: ALBUT/IPRATROP 3MG/0.5MG NEB 3 ML VIAL NEB ONE (13:22)
--- NOTE | 2019-07-12 13:22 | Emergency Department Note ---
ED Visit Note I did evaluate and examine this patient myself. I did guide management for the patient. I agree with the PA's assessment as discussed. Please see the PAs dictation for further details. I did independently review the x-rays and blood work. The patient is presenting with ankle pain and has an avulsion fracture of the talus. On exam here, however, she does have significant lead diminished breath sounds bilaterally with poor air entry. Her CO2 is 51 and she is alert and oriented x2. She does not know the year or the month. ABG is currently pending. She will be given an hour-long DuoNeb. She was given Solu-Medrol IV. Should she not improve she will be placed on BiPAP. She will be hospitalized for further care and evaluation. .
[2019-07-12 14:07] LABS: Base Excess ABG 18.2 mEq/L (-9-1.8); HCO3 ABG 49 mmol/L (19-24); Oxygen Saturation ABG 93.2 % (90-95); PCO2 ABG 99 mmHg (35-46); PO2 ABG 72 mm/Hg (80-95); pH ABG 7.32 (7.35-7.45)
[2019-07-12 14:10] LABS: Allen Test Pos (Pos)
--- NOTE | 2019-07-12 15:30 | History & Physical Report ---
Date of Service July 12, 2019 Assessment & Plan (1) Acute on chronic respiratory failure with hypoxemia: Recent discharge from the hospital on the second of this month following attack of acute respiratory failure secondary to COPD exacerbation with chronic respiratory failure She has sent home with home O2 and also has been using BiPAP at night Noted to have acute confusion likely secondary to hypercarbia and that improved with BiPAP Noted to have acute on chronic respiratory failure on admission Likely secondary to COPD exacerbation Has been on BiPAP now and is improving We will continue Solu-Medrol and nebulized bronchodilator Pulmonary consult Present on Admission?: Yes (2) COPD exacerbation: Management as above (3) Altered mental status: To hypercarbia with CO2 of 99 and O2 of 72 Has had history of hypercarbia with CO2 as high as 129 in the past Mental status has been improving (4) Chronic diastolic heart failure: Has trace bilateral leg edema Will not give any extra Lasix (5) Hypertension: Blood pressure seems to be controlled We will give usual dose of metoprolol from tomorrow (6) Dyslipidemia: Continue current dose of statin (7) GERD (gastroesophageal reflux disease): Continue PPI (8) Fibromyalgia: Having any acute distress (9) Talus fracture: Acute evulsion fracture of anterior talus Will get Ortho pending History of Present Illness Chief Complaint: Status post fall this morning with confusion at the emergency room Primary Care Provider: Russ Moon MD She is a 73-year-old female with significant past medical history of chronic respiratory failure with hypoxia and hypercapnia on home O2 and BiPAP at night, chronic diastolic heart failure, COPD, fibromyalgia, GERD MRI and hypertension has had a fall this morning with pain right ankle and right knee. She was brought in by ambulance and in the emergency room initially she was having hypoxemia and also noted very confused. He did not have any fracture of the ankle but she was noted to have CO2 of 99 in ABG and following BiPAP administration her mental status has been clearing up. She mentions that she has had a fall this morning while she was coming out of chair with increasing shakes involving both of her upper extremities. She did not lose any consciousness but she called for help and the neighbor called 911 and she was brought into the emergency room very confused. She has cough with whitish phlegm, denies any fever and/or chills, any chest pain and/or palpitation, any abdominal pain nausea no vomiting. She was placed on BiPAP in the emergency room for acute respiratory failure with hypoxia and hypercarbia and she was admitted to telemetry unit for continuation of care. Allergies Allergy/AdvReac Type Severity Reaction Status Date / Time duloxetine [From Cymbalta] Allergy Rash Verified 07/12/19 11:07 naproxen AdvReac Mild GI Verified 07/12/19 11:07 SYMPTOMS-PT DENIES Home Medications Home Medications Medication Instructions Recorded Confirmed Type acetaminophen [Tylenol Extra 1,000 mg PO Q6H PRN 12/14/18 07/12/19 History Strength] albuterol sulfate [Ventolin HFA] 2 puff INHALATION Q4H PRN 12/14/18 07/12/19 History atorvastatin 40 mg PO QAM 12/14/18 07/12/19 History calcium carbonate [Tums] 200 mg PO BID PRN 12/14/18 07/12/19 History diclofenac sodium [Voltaren] 2 g TOPICAL QID PRN 12/14/18 07/12/19 History losartan 25 mg PO QAM 12/14/18 07/12/19 History magnesium oxide 400 mg PO QAM 02/13/19 07/12/19 History aspirin [Aspir-81] 81 mg PO QAM 03/31/19 07/12/19 History docusate sodium [Colace] 100 mg PO BID PRN 03/31/19 07/12/19 History ranitidine HCl 150 mg PO BID 03/31/19 07/12/19 History furosemide [Lasix] 20 mg PO DAILY 04/22/19 07/12/19 History ipratropium-albuterol 3 ml INHALATION QID 04/22/19 07/12/19 History metoprolol succinate 50 mg PO DAILY 04/22/19 07/12/19 History pantoprazole 40 mg PO DAILY 04/22/19 07/12/19 History budesonide-formoterol HFA 160 2 puff INHALATION BID 30 Days 06/20/19 07/12/19 Rx mcg-4.5 mcg/actuation aerosol #10.2 gm inhaler roflumilast 250 mcg tablet 250 mcg PO DAILY 30 Days #30 tab 06/20/19 07/12/19 Rx tiotropium bromide 18 mcg capsule 1 cap INHALATION QAM 30 Days #30 06/20/19 07/12/19 Rx with inhalation device puffs Past Med/Surg History Medical History Multiple fractures of ribs of left side (Resolved) Chronic diastolic heart failure (Chronic) Chronic respiratory failure with hypoxia, on home O2 therapy (Chronic) OXYGEN 2L/MIN DAYTIME/3L/MIN HS VIA NC Hypertension (Chronic) COPD (chronic obstructive pulmonary disease) (Chronic) On 07/28/15 14:30 Verenice Wilmer wrote "severity to be determined " Dyslipidemia (Chronic) GERD (gastroesophageal reflux disease) (Chronic) Fibromyalgia (Chronic) BCC (basal cell carcinoma of skin) (Chronic) "s/p MOHS surgery" Osteoporosis (Chronic) Sinus tachycardia (Chronic) SOB (shortness of breath) on exertion Surgical History Status post appendectomy (Chronic) Status post hysterectomy (Chronic) Status post repair of ventral hernia (Chronic) Hx of cataract surgery (Chronic) S/P Mohs surgery for basal cell carcinoma (Chronic) Family History Grandfather (Maternal) Family hx of colon cancer Father FH: kidney cancer Other Kidney disease Lung disease Social History Preferred Language: [place] Communication Ability: Effective 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 Beliefs That Will Affect Care: None marital status: / Current Living Situation: Alone current occupational status: retired Feels Safe at Home: Yes Smoking Status: Former smoker Tobacco Type: cigarettes ; Second Hand Exposure: No ; Hx Alcohol Use: No Hx Substance Use: No Review of Systems Review of Systems: All systems reviewed & are unremarkable except as noted in HPI & below Respiratory: Moderately short of breath at rest with cough and whitish phlegm Neurologic: Has shakes involving the upper extremities but mentioned that it was bad before Physical Exam Physical Exam: Moderate shortness of breath at rest with BiPAP no other distress Constitutional: + acute distress Eyes: PERRL, conjunctivae normal, anicteric sclerae ENMT: external ear and nose normal, oropharynx normal Neck: trachea midline, no thyromegaly Respiratory: + respiratory distress (Minimal to moderate); no labored breathing and does not use accessory muscles Auscultation: + diminished lung sounds and + wheezes (Minimal wheezing); no crackles Cardiovascular: Rate/Rhythm: regular rate and regular rhythm Heart Sounds: no murmur Gastrointestinal (Abdomen): Inspection/Auscultation: abdomen normal to inspection and normal bowel sounds Percussion/Palpation: abdomen soft Musculoskeletal: Pain in the right ankle and right knee on movement Neurologic: moves all extremities; no focal motor deficits Alert, awake and oriented. Lymphatic: no cervical or axillary lymphadenopathy Results & Data Vital Signs (Past 12 Hours) Vital Signs Temp Pulse Pulse Resp BP BP Pulse Ox 07/12/19 14:31 110 H 24 157/72 H 99 07/12/19 14:01 97 H 22 93 07/12/19 13:41 98 H 24 129/74 98 07/12/19 13:00 96 H 24 159/75 H 98 07/12/19 11:41 103 H 22 97 07/12/19 11:20 109 H 22 142/80 H 98 07/12/19 09:56 36.8 C 110 H 20 156/84 H 100 Laboratory Results Short CBC 07/12/19 Range/Units 11:34 WBC 7.78 (4.8-10.8) K/uL Hgb 13.1 (12.0-16.0) g/dL Hct 44.5 (37-47) % Plt Count 214 (130-400) K/uL BMP 07/12/19 11:34 Sodium 141 Potassium 4.4 Chloride 91 L Carbon Dioxide 51 H* BUN 17 Creatinine 0.63 Glucose 124 H Calcium 9.6 Medications Administered Current Inpatient Medications Heparin Sodium (Porcine) (Heparin Sodium (Porcine)) 5,000 units SQ Q12 UCHE Stop: 08/11/19 20:59 Code Status & VTE Plan VTE Prophylaxis Plan VTE Prophylaxis will be ordered: Yes (1) Altered mental status Altered mental status type: unspecified Qualified Code(s): R41.82 - Altered mental status, unspecified (2) GERD (gastroesophageal reflux disease) Esophagitis presence: esophagitis presence not specified Qualified Code(s): K21.9 - Gastro-esophageal reflux disease without esophagitis (3) Hypertension Hypertension type: unspecified Qualified Code(s): I10 - Essential (primary) hypertension
[2019-07-12] MEDS ORDERED: ACETAMINOPHEN 500 MG TAB PO PRN (16:32)
[2019-07-12] MEDS ORDERED: ALBUTEROL HFA 8 GM INHALER INH PRN (16:32)
[2019-07-12] MEDS ORDERED: DOCUSATE SODIUM 100 MG CAP PO PRN (16:32)
[2019-07-12] MEDS ORDERED: DICLOFENAC SOD 1% GEL 100 GM TUBE EXT PRN (16:32)
[2019-07-12] MEDS: LOSARTAN POTASSIUM 25 MG TAB PO SCH (17:38)
[2019-07-12] MEDS ORDERED: ALBUT/IPRATROP 3MG/0.5MG NEB 3 ML VIAL INH SCH (19:00)
[2019-07-12] MEDS: ALBUT/IPRATROP 3MG/0.5MG NEB 3 ML VIAL NEB SCH ×2 (19:01→22:52)
[2019-07-12] MEDS: BUDESONIDE/FORMOTEROL FUMARATE 160/4.5 60 PUFFS/INHALER INH SCH (20:24)
[2019-07-12] MEDS: HEPARIN SOD 5,000 UNIT/0.5 ML VIAL SQ SCH (20:24)
[2019-07-12] MEDS ORDERED: INFLUENZA VIRUS QUAD VACCINE 0.5 ML SYR IM ONE (20:45)
[2019-07-12] MEDS ORDERED: INFLUENZA ADMINISTRATION CHARGE ONE (20:45)
[2019-07-12] MEDS ORDERED: PNEUMOCOCCAL POLYSACCHARIDES 25 MCG/0.5 ML VIAL/SYR IM ONE (20:45)
[2019-07-12] MEDS ORDERED: PNEUMOCOCCAL ADMINISTRATION CHARGE ONE (20:45)
[2019-07-12] MEDS: methylPREDNISolone 40 MG in SYRINGE 0 ML IV SCH (20:54)
[2019-07-13] MEDS: ALBUT/IPRATROP 3MG/0.5MG NEB 3 ML VIAL NEB SCH ×2 (03:29→07:03)
[2019-07-13] MEDS: methylPREDNISolone 40 MG in SYRINGE 0 ML IV SCH ×3 (03:57→19:14)
[2019-07-13] MEDS: METOPROLOL SUCC 50MG EXT REL TAB PO SCH (08:26)
[2019-07-13] MEDS: LOSARTAN POTASSIUM 25 MG TAB PO SCH (08:26)
[2019-07-13] MEDS: ATORVASTATIN 40 MG TAB PO SCH (08:27)
[2019-07-13] MEDS: ASPIRIN 81 MG ECTAB PO SCH (08:27)
[2019-07-13] MEDS: FUROSEMIDE 20 MG TAB PO SCH (08:27)
[2019-07-13] MEDS: ROFLUMILAST 500 MCG TAB PO SCH (08:27)
[2019-07-13] MEDS: BUDESONIDE/FORMOTEROL FUMARATE 160/4.5 60 PUFFS/INHALER INH SCH ×2 (08:28→20:42)
[2019-07-13] MEDS: PANTOprazole 40 MG TAB PO SCH (08:28)
[2019-07-13] MEDS: HEPARIN SOD 5,000 UNIT/0.5 ML VIAL SQ SCH ×2 (08:29→20:43)
[2019-07-13] MEDS: MAGNESIUM OXIDE 400 MG TAB PO SCH (08:29)
--- NOTE | 2019-07-13 08:55 | Hospitalist Progress Note ---
Date of Service July 13, 2019 Assessment & Plan (1) Acute on chronic respiratory failure with hypoxemia: secondary to COPD exacerbation Off BiPAP, back to 2 L of oxygen via nasal cannula Continue Solu-Medrolgraham pulmonary service consultation (2) COPD exacerbation: Management as above (3) Altered mental status: Metabolic encephalopathy secondary to hypercapnia and hypoxia and hypoxia Resolved (4) Chronic diastolic heart failure: Euvolemic, continue usual Lasix (5) Hypertension: Blood pressure elevated, additional losartan ordered Monitor (6) Dyslipidemia: Continue current dose of statin (7) GERD (gastroesophageal reflux disease): Continue PPI (8) Fibromyalgia: Having any acute distress (9) Talus fracture: Orthopedic service consulted Knee x-ray ordered DVT prophylaxis Heparin Disposition Patient lives at home by herself PT OT evaluation ordered Subjective ff up for copd exacerbation seen resting in bed, on 2 L NC, comfortable states she feels improved today no active dyspnea on exam denies chest pain, palpitations, dizziness, nausea reports right ankle pain no other symptoms Review of Systems Review of Systems: All systems reviewed & are unremarkable except as noted in HPI & below Physical Exam Physical Exam: General- oriented x 3, not in distress, speaks in sentences with no effort or accessory muscle use Eyes- anicteric Neck- no JVD Lungs- diminished breath sounds bilaterally, no wheezing good air entry Heart- normal rate, regular rhythm; no murmurs Abdomen- normal bowel sounds, nondistended, soft, nontender Extremities- no pretibial edema, no calf tenderness right ankle: no edema, warmth, (+) mild tenderness, less ROM due to pain Neuro- alert, oriented x 3; no gross focal neurologic deficits Skin- warm & dry Results & Data Vital Signs (Past 12 Hours) Vital Signs Temp Pulse Resp BP Pulse Ox 07/13/19 07:42 36.7 C 131 H 18 148/81 H 99 07/13/19 07:04 78 19 94 07/13/19 06:50 36.6 C 135 H 19 144/85 H 93 07/13/19 03:47 36.6 C 128 H 16 150/83 H 94 07/13/19 03:29 109 H 92 07/12/19 22:56 36.5 C 120 H 20 152/89 H 99 07/12/19 22:52 124 H 20 95 (1) Altered mental status Altered mental status type: unspecified Qualified Code(s): R41.82 - Altered mental status, unspecified (2) GERD (gastroesophageal reflux disease) Esophagitis presence: esophagitis presence not specified Qualified Code(s): K 21.9 - Gastro-esophageal reflux disease without esophagitis (3) Hypertension Hypertension type: unspecified Qualified Code(s): I10 - Essential (primary) hypertension
[2019-07-13] MEDS ORDERED: TIOTROPIUM BROMIDE 5 PUFF/90 MCG INH INH SCH (09:00)
--- NOTE | 2019-07-13 09:27 | Orthopedic Consultation ---
Date of Consultation July 13, 2019 Assessment & Plan (1) Ankle fracture, right: Right ankle nondisplaced avulsion fracture anterior talus. Conservative treatment to include WBAT with brace and walker. Ice/ elevation as needed. Pain control Patient incidentally mentioned her right knee was also hurting as a result of the fall. Will get knee X rays and eval right knee. History of Present Illness Reason for Consultation: Right ankle pain Attending Physician: Ganesh Han MD History of Present Illness 73 year old female c/o right ankle pain after a fall last evening. She was brought to the ER with hypoxia and confusion. Patient was admitted by medicine. X-rays right ankle show nondisplaced avulsion fracture anterior talus. Allergies Allergy/AdvReac Type Severity Reaction Status Date / Time duloxetine [From Cymbalta] Allergy Rash Verified 07/12/19 11:07 naproxen AdvReac Mild GI Verified 07/12/19 11:07 SYMPTOMS-PT DENIES Home Medications Home Medications Medication Instructions Recorded Confirmed Type acetaminophen [Tylenol Extra 1,000 mg PO Q6H PRN 12/14/18 07/12/19 History Strength] albuterol sulfate [Ventolin HFA] 2 puff INHALATION Q4H PRN 12/14/18 07/12/19 History atorvastatin 40 mg PO QAM 12/14/18 07/12/19 History calcium carbonate [Tums] 200 mg PO BID PRN 12/14/18 07/12/19 History diclofenac sodium [Voltaren] 2 g TOPICAL QID PRN 12/14/18 07/12/19 History losartan 25 mg PO QAM 12/14/18 07/12/19 History magnesium oxide 400 mg PO QAM 02/13/19 07/12/19 History aspirin [Aspir-81] 81 mg PO QAM 03/31/19 07/12/19 History docusate sodium [Colace] 100 mg PO BID PRN 03/31/19 07/12/19 History ranitidine HCl 150 mg PO BID 03/31/19 07/12/19 History furosemide [Lasix] 20 mg PO DAILY 04/22/19 07/12/19 History ipratropium-albuterol 3 ml INHALATION QID 04/22/19 07/12/19 History metoprolol succinate 50 mg PO DAILY 04/22/19 07/12/19 History pantoprazole 40 mg PO DAILY 04/22/19 07/12/19 History budesonide-formoterol HFA 160 2 puff INHALATION BID 30 Days 06/20/19 07/12/19 Rx mcg-4.5 mcg/actuation aerosol #10.2 gm inhaler roflumilast 250 mcg tablet 250 mcg PO DAILY 30 Days #30 tab 06/20/19 07/12/19 Rx tiotropium bromide 18 mcg capsule 1 cap INHALATION QAM 30 Days #30 06/20/19 07/12/19 Rx with inhalation device puffs Patient History Medical History Multiple fractures of ribs of left side (Resolved) Chronic diastolic heart failure (Chronic) Chronic respiratory failure with hypoxia, on home O2 therapy (Chronic) OXYGEN 2L/MIN DAYTIME/3L/MIN HS VIA NC Hypertension (Chronic) COPD (chronic obstructive pulmonary disease) (Chronic) On 07/28/15 14:30 Verenice Guillen wrote "severity to be determined " Dyslipidemia (Chronic) GERD (gastroesophageal reflux disease) (Chronic) Fibromyalgia (Chronic) BCC (basal cell carcinoma of skin) (Chronic) "s/p MOHS surgery" Osteoporosis (Chronic) Sinus tachycardia (Chronic) SOB (shortness of breath) on exertion Surgical History Status post appendectomy (Chronic) Status post hysterectomy (Chronic) Status post repair of ventral hernia (Chronic) Hx of cataract surgery (Chronic) S/P Mohs surgery for basal cell carcinoma (Chronic) Family History Grandfather (Maternal) Family hx of colon cancer Father FH: kidney cancer Other Kidney disease Lung disease Social History Preferred Language: Persian Communication Ability: Effective 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 No abrasions. Skin in tact. Active ROM in tact with mild discomfort. Strength is 3+/5 secondary to pain. + tender AFTL and dorsal mid foot area. No malleolar tenderness. N/V+ Results & Data Vital Signs (Past 12 Hours) Vital Signs Temp Pulse Resp BP Pulse Ox 07/13/19 07:42 36.7 C 131 H 18 148/81 H 99 07/13/19 07:04 78 19 94 07/13/19 06:50 36.6 C 135 H 19 144/85 H 93 07/13/19 03:47 36.6 C 128 H 16 150/83 H 94 07/13/19 03:29 109 H 92 07/12/19 22:56 36.5 C 120 H 20 152/89 H 99 07/12/19 22:52 124 H 20 95
--- NOTE | 2019-07-13 09:53 | Pulmonary Consultation ---
Date of Consultation July 13, 2019 Assessment & Plan (1) Ankle fracture, right: (2) Acute metabolic encephalopathy: ABGs on admission revealed a pH of 7.32 PCO2 99 PO2 of 72 on low-flow O2. I do not believe patient has significantly changed since last time I examined her. One can expect altered sensorium in patients with acute on chronic hypoxic and hypercapnic respiratory failure. I definitely believe patient needs placement in an ECF perhaps [facility] this juncture and cannot live alone. I agree with current therapy and would make no changes today at this juncture. (3) Obesity hypoventilation syndrome: (4) Acute on chronic respiratory failure with hypoxemia: (5) Acute and chronic respiratory failure with hypercapnia: (6) COPD exacerbation: (7) Chronic diastolic heart failure: History of Present Illness Attending Physician: Ganesh Han MD 23-year-old white female well-known to our pulmonary service last seen by Holden Chauhan in our clinic on 06/20/2019 was admitted last evening. He has a history of significant COPD and was admitted with acute on chronic respiratory failure with hypoxemia. Patient was recently admitted to [facility] on 06/06/2019 and discharged on 06/16/2019. It was felt to be secondary to COPD exacerbation per lives at home and feels like she cannot take care of herself at home. Apparently yesterday she tripped getting off a recliner and injured her right foot and ankle. 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 He has been on BiPAP at home and tolerates it adequately states that the BiPAP administered last evening by the hospital was less comfortable. She denies increased cough or pulmonary congestion currently. ABGs in the remote past have demonstrated profound level of hypercarbia and she has responded only minimally to aggressive therapy. We have instituted numerous airway clearance maneuvers and she states this admission she feels like her breathing is about the same as it spent over the past month. No pleuritic pain or hemoptysis noted per Allergies Allergy/AdvReac Type Severity Reaction Status Date / Time duloxetine [From Cymbalta] Allergy Rash Verified 07/12/19 11:07 naproxen AdvReac Mild GI Verified 07/12/19 11:07 SYMPTOMS-PT DENIES Home Medications Home Medications Medication Instructions Recorded Confirmed Type acetaminophen [Tylenol Extra 1,000 mg PO Q6H PRN 12/14/18 07/12/19 History Strength] albuterol sulfate [Ventolin HFA] 2 puff INHALATION Q4H PRN 12/14/18 07/12/19 History atorvastatin 40 mg PO QAM 12/14/18 07/12/19 History calcium carbonate [Tums] 200 mg PO BID PRN 12/14/18 07/12/19 History diclofenac sodium [Voltaren] 2 g TOPICAL QID PRN 12/14/18 07/12/19 History losartan 25 mg PO QAM 12/14/18 07/12/19 History magnesium oxide 400 mg PO QAM 02/13/19 07/12/19 History aspirin [Aspir-81] 81 mg PO QAM 03/31/19 07/12/19 History docusate sodium [Colace] 100 mg PO BID PRN 03/31/19 07/12/19 History ranitidine HCl 150 mg PO BID 03/31/19 07/12/19 History furosemide [Lasix] 20 mg PO DAILY 04/22/19 07/12/19 History ipratropium-albuterol 3 ml INHALATION QID 04/22/19 07/12/19 History metoprolol succinate 50 mg PO DAILY 04/22/19 07/12/19 History pantoprazole 40 mg PO DAILY 04/22/19 07/12/19 History budesonide-formoterol HFA 160 2 puff INHALATION BID 30 Days 06/20/19 07/12/19 Rx mcg-4.5 mcg/actuation aerosol #10.2 gm inhaler roflumilast 250 mcg tablet 250 mcg PO DAILY 30 Days #30 tab 06/20/19 07/12/19 Rx tiotropium bromide 18 mcg capsule 1 cap INHALATION QAM 30 Days #30 06/20/19 07/12/19 Rx with inhalation device puffs Patient History Medical History Multiple fractures of ribs of left side (Resolved) Chronic diastolic heart failure (Chronic) Chronic respiratory failure with hypoxia, on home O2 therapy (Chronic) OXYGEN 2L/MIN DAYTIME/3L/MIN HS VIA ID Hypertension (Chronic) COPD (chronic obstructive pulmonary disease) (Chronic) On 07/28/15 14:30 Verenice Guillen wrote "severity to be determined " Dyslipidemia (Chronic) GERD (gastroesophageal reflux disease) (Chronic) Fibromyalgia (Chronic) BCC (basal cell carcinoma of skin) (Chronic) "s/p MOHS surgery" Osteoporosis (Chronic) Sinus tachycardia (Chronic) SOB (shortness of breath) on exertion Surgical History Status post appendectomy (Chronic) Status post hysterectomy (Chronic) Status post repair of ventral hernia (Chronic) Hx of cataract surgery (Chronic) S/P Mohs surgery for basal cell carcinoma (Chronic) Family History Grandfather (Maternal) Family hx of colon cancer Father FH: kidney cancer Other Kidney disease Lung disease Social History Preferred Language: Bhutanese Communication Ability: Effective 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 Hand 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: No Beliefs That Will Affect Care: None marital status: / Current Living Situation: Alone current occupational status: retired Other Information That Helps Us Care for You: No Feels Safe at Home: Yes Safety Concerns: Feels Safe At This Time Smoking Status: Former smoker Tobacco Type: cigarettes ; Cigarettes Per Day: unsure when she quit ; Second Hand Exposure: No ; Hx Alcohol Use: No Hx Substance Use: No Review of Systems Review of Systems: All systems reviewed & are unremarkable except as noted in HPI & below Constitutional: no problem reported Eyes: no problem reported Ear, Nose, Mouth, Throat: no problem reported Respiratory: no problem reported Cardiovascular: no problem reported Gastrointestinal: no problem reported Genitourinary: no problem reported Musculoskeletal: no problem reported Integumentary: no problem reported Neurologic: no problem reported Psychiatric: no problem reported Endocrine: no problem reported Hematologic / Lymphatic: no problem reported Allergy / Immunological: no problem reported Physical Exam Constitutional: well developed and well nourished; no acute distress Eyes: PERRL, conjunctivae normal, anicteric sclerae ENMT: external ear and nose normal, oropharynx normal Neck: trachea midline, no thyromegaly Respiratory: normal respiratory effort, + hyperresonance to percussion and + prolonged expiratory phase Auscultation: + diminished lung sounds Cardiovascular: RRR, no murmur, no edema Palpation: normal PMI; no thrill Gastrointestinal (Abdomen): normal bowel sounds, soft, nontender, no hepatosplenomegaly Musculoskeletal: no cyanosis or clubbing, extremities motor strength 5/5 Gait: normal gait Skin: no rashes, warm and dry Neurologic: PERRL, EOMI, accommodation nl, no face palsy, no dysarthria Psychiatric: A+Ox3, euthymic affect Lymphatic: no cervical or axillary lymphadenopathy Results & Data Vital Signs (Past 12 Hours) Vital Signs Temp Pulse Resp BP Pulse Ox 07/13/19 07:42 36.7 C 131 H 18 148/81 H 99 07/13/19 07:04 78 19 94 07/13/19 06:50 36.6 C 135 H 19 144/85 H 93 07/13/19 03:47 36.6 C 128 H 16 150/83 H 94 07/13/19 03:29 109 H 92 07/12/19 22:56 36.5 C 120 H 20 152/89 H 99 07/12/19 22:52 124 H 20 95 Laboratory Results Abnormal Labs 07/12/19 07/12/19 07/12/19 11:34 11:34 13:48 MCHC 29.4 L RDW Std Deviation 49.9 H MPV 11.3 H Lymph # (Auto) 0.96 L [place] # (Auto) 0.63 H ABG pH 7.32 L ABG pCO2 99 H ABG pO2 72 L ABG HCO3 49 H ABG Base Excess 18.2 H Chloride 91 L Carbon Dioxide 51 H* Anion Gap -1.0 L BUN/Creatinine Ratio 26.6 H Glucose 124 H Diagnostic Findings Patient: ARTURO HIDALGO Date: 07/12/19 MR#: [id number]: 130 SHERI BAUTISTA Acct ID:[id number]: Date: 1945[facility] Zip: [place] [address] Age: 73Location: ED Sex: F Room/Bed: Att Phy:Diagnosis: RT KNEE/ANKLE PAIN S/P FALL Shannan Phy: Russ Moonervice Date: 07/12/19 Fam Phy:Interpreting Phy: Brayan Estrada MD Admit Phy: Ordering Phy: Therese Moore PA-C cc: ~ XR chest 1V portable HISTORY: Short of breath. Cough. COMPARISON: Chest 06/06/2019. FINDINGS: Stable linear density at the left lower lobe consistent with subsegmental atelectasis or scarring. No new focal lung consolidations to suggest pneumonia. No evidence for pulmonary edema. No pleural effusions. No pneumothorax. The heart is stable in size. IMPRESSION: No significant change com Medications Administered Current Inpatient Medications Acetaminophen (Tylenol) 1,000 mg PO Q6H PRN PRN Reason: Pain Stop: 08/11/19 16:31 Albuterol (Ventolin Hfa) 2 puffs INH Q4H PRN PRN Reason: Shortness Of Breath Or Wheezing Stop: 08/11/19 16:31 Aspirin (Ecotrin Ectab) 81 mg PO QAM [facility] Stop: 08/12/19 08:59 Last Admin: 07/13/19 08:27 Dose: 81 mg Documented by: Atorvastatin Calcium (Lipitor) 40 mg PO QAM [facility] Stop: 08/12/19 08:59 Last Admin: 07/13/19 08:27 Dose: 40 mg Documented by: Budesonide/Formoterol Fumarate (Symbicort 160mcg/4.5mcg) 2 puffs INH BID [facility] Stop: 08/11/19 20:59 Last Admin: 07/13/19 08:28 Dose: 2 puffs Documented by: Calcium Carbonate (Tums) 500 mg PO BID PRN PRN Reason: Indigestion Stop: 08/11/19 16:31 Diclofenac Sodium (Voltaren 1% Top) 1 appln EXT QID PRN PRN Reason: Pain Stop: 08/11/19 16:31 Docusate Sodium (Colace) 100 mg PO BID PRN PRN Reason: Constipation Stop: 08/11/19 16:31 Furosemide (Lasix) 20 mg PO DAILY [facility] Stop: 08/12/19 08:59 Last Admin: 07/13/19 08:27 Dose: 20 mg Documented by: Heparin Sodium (Porcine) (Heparin Sodium (Porcine)) 5,000 units SQ Q12 [facility] Stop: 08/11/19 20:59 Last Admin: 07/13/19 08:29 Dose: 5,000 units Documented by: Methylprednisolone 40 mg/ (Syringe) 0.64 mls @ 1.5 mls/min IV Q8H [facility] Stop: 08/11/19 19:59 Last Admin: 07/13/19 03:57 Dose: 1.5 mls/min Documented by: Ipratropium [place] (Atrovent 0.02% 0.5mg/2.5ml) 0.5 mg INH Q6R [facility] Stop: 08/12/19 12:59 Levalbuterol HCl (Xopenex 0.63 Mg/3 Ml Neb) 0.63 mg NEB Q6R [facility] Stop: 08/12/19 12:59 Losartan Potassium (Cozaar) 25 mg PO QAM [facility] Stop: 08/11/19 16:31 Last Admin: 07/13/19 08:26 Dose: 25 mg Documented by: Magnesium Oxide (Mag-Ox) 400 mg PO QAM [facility] Stop: 08/12/19 08:59 Last Admin: 07/13/19 08:29 Dose: 400 mg Documented by: Metoprolol Succinate (Toprol Xl) 50 mg PO DAILY [facility] Stop: 08/12/19 08:59 Last Admin: 07/13/19 08:26 Dose: 50 mg Documented by: Pantoprazole Sodium (Protonix) 40 mg PO DAILY [facility] Stop: 08/12/19 08:59 Last Admin: 07/13/19 08:28 Dose: 40 mg Documented by: Ranitidine HCl (Zantac) 150 mg PO BID [facility] Stop: 08/11/19 20:59 Last Admin: 07/13/19 08:26 Dose: 150 mg Documented by: Roflumilast (Daliresp) 250 mcg PO DAILY [facility] Stop: 08/12/19 08:59 Last Admin: 07/13/19 08:27 Dose: 250 mcg Documented by: PG Care Time/CCT Total # of Minutes Spent Total Time Spent with Patient: Total time spent is greater than 50% in coordination of care (as documented) at patient's floor/unit and/or counseling patient:
--- NOTE | 2019-07-13 11:42 | XRay Report ---
RIGHT KNEE 3 VIEWS CLINICAL HISTORY: Fall with right knee pain. FINDINGS: AP, crosstable lateral, and sunrise portable views of the right knee are obtained. No prior studies are available for comparison at the time of dictation. The skeletal structures are osteopeni c. No fracture is seen. There is mild tricompartmental degenerative joint space narrowing. Small late ral marginal osteophytes are observed. There is a small joint effusion. Mild soft tissue swelling is present along the medial aspect of the knee. IMPRESSION: Small joint effusion and mild soft tissue swelling with no acute osseous abnormality iden tified. Electronically signed by: Nate Rabago M.D. 07/13/2019 11:40 AM
[2019-07-13] MEDS ORDERED: LEVALBUTEROL HCL 0.63 MG/3 ML NEB NEB SCH (13:00)
[2019-07-13] MEDS ORDERED: XOPENEX/ATROVENT 0.63mg/0.5MG NEB COMBO NEB SCH (13:00)
[2019-07-13] MEDS: IPRATROPIUM BROMIDE NEB SOLN 0.02% 2.5 ML VIAL INH SCH ×2 (13:04→19:55)
[2019-07-13] MEDS: LEVALBUTEROL HCL 0.63 MG/3 ML NEB NEB SCH ×2 (13:04→19:55)
[2019-07-13] MEDS ORDERED: LOSARTAN POTASSIUM 25 MG TAB PO ONE (13:45)
[2019-07-14] MEDS: LEVALBUTEROL HCL 0.63 MG/3 ML NEB NEB SCH ×4 (00:54→19:04)
[2019-07-14] MEDS: IPRATROPIUM BROMIDE NEB SOLN 0.02% 2.5 ML VIAL INH SCH ×4 (00:54→19:04)
[2019-07-14] MEDS: methylPREDNISolone 40 MG in SYRINGE 0 ML IV SCH ×2 (03:47→16:46)
[2019-07-14] MEDS: LOSARTAN POTASSIUM 25 MG TAB PO SCH (08:05)
[2019-07-14] MEDS: HEPARIN SOD 5,000 UNIT/0.5 ML VIAL SQ SCH ×2 (08:05→20:43)
[2019-07-14] MEDS: MAGNESIUM OXIDE 400 MG TAB PO SCH (08:08)
[2019-07-14] MEDS: FUROSEMIDE 20 MG TAB PO SCH (08:08)
[2019-07-14] MEDS: ATORVASTATIN 40 MG TAB PO SCH (08:08)
[2019-07-14] MEDS: ASPIRIN 81 MG ECTAB PO SCH (08:08)
[2019-07-14] MEDS: ROFLUMILAST 500 MCG TAB PO SCH (08:08)
[2019-07-14] MEDS: PANTOprazole 40 MG TAB PO SCH (08:09)
[2019-07-14] MEDS: METOPROLOL SUCC 50MG EXT REL TAB PO SCH (08:09)
[2019-07-14] MEDS: BUDESONIDE/FORMOTEROL FUMARATE 160/4.5 60 PUFFS/INHALER INH SCH ×2 (08:10→20:41)
--- NOTE | 2019-07-14 10:24 | Hospitalist Progress Note ---
Date of Service July 14, 2019 Assessment & Plan (1) Acute on chronic respiratory failure with hypoxemia: secondary to COPD exacerbation Chest x-ray no signs of pneumonia Off BiPAP, back to 2 L of oxygen via nasal cannula Continue Solu-Medrol, nebs; anticipate to wean off steroids tomorrow Appreciate pulmonary service consultation (2) COPD exacerbation: Management as above (3) Altered mental status: Metabolic encephalopathy secondary to hypercapnia and hypoxia and hypoxia Resolved (4) Chronic diastolic heart failure: Euvolemic, continue usual Lasix (5) Hypertension: Improved today, continue usual losartan (6) Dyslipidemia: Continue current dose of statin (7) GERD (gastroesophageal reflux disease): Continue PPI (8) Fibromyalgia: Stable (9) Talus fracture: Orthopedic service consulted Conservative management recommended Weightbearing as tolerated, continue bracing, continue PT and OT Knee x-ray ordered: Edema noted DVT prophylaxis Heparin Disposition Patient lives at home by herself PT OT evaluation ordered Subjective Follow-up for COPD exacerbation Seen resting in bed, comfortable, back to her usual nasal cannula Did not tolerate BiPAP overnight States breathing is better today, less cough, no sputum Denies other symptoms Review of Systems Review of Systems: All systems reviewed & are unremarkable except as noted in HPI & below Physical Exam Physical Exam: General- oriented x 3, not in distress, speaks in sentences with no effort or accessory muscle use Eyes- anicteric Neck- no JVD Lungs-diminished breath sound bilaterally but improving, no wheezing No crackles Heart- normal rate, regular rhythm; no murmurs Abdomen- normal bowel sounds, nondistended, soft, nontender Extremities- no pretibial edema, no calf tenderness Right knee: Mild edema, no erythema/warmth/tenderness Right ankle: No edema/warmth/tenderness, full range of motion, brace is in place Neuro- alert, oriented x 3; no gross focal neurologic deficits Skin- warm & dry Results & Data Vital Signs (Past 12 Hours) Vital Signs Temp Pulse Pulse Resp BP BP Pulse Ox 07/14/19 07:46 36.7 C 96 H 18 137/75 98 07/14/19 07:35 93 H 07/14/19 07:04 101 H 16 98 07/14/19 04:22 36.9 C 101 H 20 142/78 H 95 07/14/19 00:55 94 H 18 93 07/14/19 00:08 36.7 C 101 H 17 125/79 98 (1) Altered mental status Altered mental status type: unspecified Qualified Code(s): R41.82 - Altered mental status, unspecified (2) GERD (gastroesophageal reflux disease) Esophagitis presence: esophagitis presence not specified Qualified Code(s): K21.9 - Gastro-esophageal reflux disease without esophagitis (3) Hypertension Hypertension type: unspecified Qualified Code(s): I10 - Essential (primary) hypertension
[2019-07-14] MEDS ORDERED: COUGH DROP (SUGAR FREE) LOZ 24 LOZ/1 BOX BUCCAL ONE (14:03)
[2019-07-14] MEDS: TRAMADOL HCL 50 MG TABLET PO PRN (20:53)
--- NOTE | 2019-07-14 22:07 | Pulmonology Progress Note ---
Date of Service July 14, 2019 Assessment & Plan (1) Acute metabolic encephalopathy: Likely secondary to hypercapnia. Patient is awake alert oriented x3 and following commands. Likely patient be back to baseline. (2) Obesity hypoventilation syndrome: Needs to be compliant with CPAP. (3) Acute on chronic respiratory failure with hypoxemia: O2 supplementation to keep oxygen between 80 to 92%. (4) Acute and chronic respiratory failure with hypercapnia: BiPAP nightly and as needed shortness of breath. Keep O2 saturation between 88 to 92%. (5) COPD exacerbation: Continue with bronchodilator ics/laba and as needed Aquilino Taper steroids as of tomorrow. Discharge planning (6) Chronic diastolic heart failure: Subjective Patient seen and examined at bedside. No acute distress. No adverse events overnight. States shortness of breath is improved. Denies any chest pain, no headache, no nausea, no vomiting. Patient was saturating 97% on 2 L nasal cannula at rest at the time of examination. Tolerating diet. Review of Systems Review of Systems: All systems reviewed & are unremarkable except as noted in HPI & below Physical Exam Physical Exam: Constitutional: No acute distress HEENT: EOMI, PERRLA Respiratory system: Decreased air entry bilaterally, minimal wheeze, no rhonchi, no crackles CVS: S1-S2 positive, no murmurs or gallops, tachycardia Abdomen: Soft, nontender, nondistended, positive bowel sounds x4 Extremities: +2 pulses bilaterally radialis/ dorsalis pedis, no edema, no cyanosis Neuro: Awake alert oriented x3 Psych: Normal mood and affect Lymphatic: no cervical or axillary lymphadenopathy Results & Data Vital Signs (Past 12 Hours) Vital Signs Temp Pulse Pulse Resp BP BP Pulse Ox 07/14/19 20:08 124 H 07/14/19 19:07 36.8 C 102 H 20 102/63 95 07/14/19 19:04 102 H 18 95 07/14/19 15:40 36.7 C 112 H 18 105/71 97 07/14/19 13:01 118 H 20 94 07/14/19 10:53 36.8 C 115 H 18 126/84 96 PG Care Time/CCT Total # of Minutes Spent Total Time Spent with Patient: Total time spent is greater than 50% in coordination of care (as documented) at patient's floor/unit and/or counseling patient:
[2019-07-15] MEDS: LEVALBUTEROL HCL 0.63 MG/3 ML NEB NEB SCH ×4 (01:01→18:57)
[2019-07-15] MEDS: IPRATROPIUM BROMIDE NEB SOLN 0.02% 2.5 ML VIAL INH SCH ×4 (01:01→18:57)
[2019-07-15] MEDS: methylPREDNISolone 40 MG in SYRINGE 0 ML IV SCH ×2 (03:32→22:46)
[2019-07-15] MEDS: ATORVASTATIN 40 MG TAB PO SCH (08:55)
[2019-07-15] MEDS: METOPROLOL SUCC 50MG EXT REL TAB PO SCH (08:55)
[2019-07-15] MEDS: MAGNESIUM OXIDE 400 MG TAB PO SCH (08:56)
[2019-07-15] MEDS: LOSARTAN POTASSIUM 25 MG TAB PO SCH (08:56)
[2019-07-15] MEDS: FUROSEMIDE 20 MG TAB PO SCH (08:56)
[2019-07-15] MEDS: ASPIRIN 81 MG ECTAB PO SCH (08:56)
[2019-07-15] MEDS: PANTOprazole 40 MG TAB PO SCH (08:57)
[2019-07-15] MEDS: ROFLUMILAST 500 MCG TAB PO SCH (08:57)
[2019-07-15] MEDS: BUDESONIDE/FORMOTEROL FUMARATE 160/4.5 60 PUFFS/INHALER INH SCH ×2 (08:59→19:39)
[2019-07-15] MEDS: HEPARIN SOD 5,000 UNIT/0.5 ML VIAL SQ SCH ×2 (09:00→19:46)
--- NOTE | 2019-07-15 12:58 | Pulmonology Progress Note ---
Date of Service July 15, 2019 Assessment & Plan (1) Acute metabolic encephalopathy: Likely secondary to hypercapnia. Patient appears to be at baseline as pH has normalized and the pCO2 continues to remain elevated Patient awake and oriented and asking appropriate questions and with appropriate responses Not compliant with Trilogy - may be due to inappropriate settings * Need to have DME come in and adjust settings to reduce IPAP max from 20 cm H20 * Suggest equivalent settings of inspiratory pressure of 10 and expiratory pressure of 6 (2) Obesity hypoventilation syndrome: Trilogy in room with settings as per outpatient orders Patient reports non-compliance secondary to high pressures Encouraged patient to continue to use for short periods as she will need to acclimate to new machine and settings. (3) Acute and chronic respiratory failure with hypercapnia: Titrate SaO2 to be between 88 and 92% Hypercapnia appears to be at baseline as patient's pH is normalized and patient is alert and oriented to person place and time Continue to follow clinically Continue with outpatient management with Dr. Chowdhury's office (4) COPD exacerbation: Continue Home bronchodilators Begin steroid taper off as tolerated Follow-up in the outpatient clinic in 2 to 3 weeks Thank you for including us in the care of this patient. Please refer to Dr. Wagner's addendum for further recommendations. Supervising Physician Co-Signing Physician Notes I saw and evaluated the patient with Nate Shah, and agree with findings and plan as documented in the note. Patient is feeling better. Saturation 99% on 2 L nasal cannula. Advised the patient to go down to 1 L. Patient has metabolic alkalosis as a compensation to chronic respiratory acidosis. Today the bicarb was 51 in the chemistry. We will get an ABG and repeat a BMP to confirm it is truly 51. On the ABG if the pH is greater than 7.4 would recommend acetazolamide to 50 mg twice daily for 3 days which will help with metabolic alkalosis. Needs some changes to the trilogy as patient is not tolerating trilogy recommend 10/6 pressure. No more further recommendation from pulmonary perspective. Will sign off recall as needed. I have spent more than 50% of this [] minute encounter in counseling and/or coordination of care with patient. Subjective Attending: Dr. Wagner Patient seen at bedside. No fever or chills. Continues with SOB and is not tolerating Trilogy for more than a few minutes. No significant cough. Review of Systems Review of Systems: All systems reviewed & are unremarkable except as noted in HPI & below Physical Exam Physical Exam: GENERAL : No acute distress EYES: No icterus, gaze conjugate NOSE: No evidence of epistaxis MOUTH: No lesions or candidiasis NECK: Supple LUNGS: Scattered wheezes. Some fine crackles at the bases.Poor inspiratory effort. HEART: Regular, rate controlled ABDOMEN: Soft, NT, ND, BS Present EXTREMITIES: No LE edema, pedal pulses intact NEURO: A&OX3 Results & Data Vital Signs (Past 12 Hours) Vital Signs Temp Pulse Pulse Resp BP Pulse Ox 07/15/19 08:00 69 07/15/19 07:18 36.4 C L 90 20 132/76 100 07/15/19 07:14 83 18 98 07/15/19 04:33 36.6 C 73 18 117/63 98 07/15/19 01:01 100 H 100 H 18 97 Laboratory Results 07/12/19 11:34 07/12/19 11:34 Diagnostic Findings No additional imaging since 07/13/2019 PG Care Time/CCT Total # of Minutes Spent Total Time Spent with Patient: Total time spent is greater than 50% in coordination of care (as documented) at patient's floor/unit and/or counseling patient: 40
[2019-07-15] MEDS ORDERED: XOPENEX/ATROVENT 0.63mg/0.5MG NEB COMBO NEB STA (14:44)
[2019-07-15] MEDS ORDERED: methylPREDNISolone 40 MG in SYRINGE 0 ML IV STA (14:59)
--- NOTE | 2019-07-15 17:36 | Hospitalist Progress Note ---
Date of Service July 15, 2019 Assessment & Plan (1) Acute on chronic respiratory failure with hypoxemia: secondary to COPD exacerbation Chest x-ray no signs of pneumonia Off BiPAP, back to 2 L of oxygen via nasal cannula Increased wheezing today Resume Solu-Medrol every 8 hours, continue nebs Trilogy use encouraged Appreciate pulmonary service consultation (2) COPD exacerbation: Management as above (3) Altered mental status: Metabolic encephalopathy secondary to hypercapnia and hypoxia and hypoxia Resolved (4) Chronic diastolic heart failure: Euvolemic, continue usual Lasix (5) Hypertension: Improved today, continue usual losartan (6) Dyslipidemia: Continue current dose of statin (7) GERD (gastroesophageal reflux disease): Continue PPI (8) Fibromyalgia: Stable (9) Talus fracture: Orthopedic service consulted Conservative management recommended Weightbearing as tolerated, continue bracing, continue PT and OT Knee x-ray ordered: Edema noted DVT prophylaxis Heparin Disposition Patient lives at home by herself PT OT evaluation ordered Subjective Follow-up for COPD exacerbation Seen sitting up in bed, watching TV, not in distress Reports mild dyspnea this afternoon Coughing less, no chest pain No fevers or chills Ankle pain improving Denies knee pain No other symptoms Physical Exam Physical Exam: General- oriented x 3, not in distress, speaks in sentences with no effort or accessory muscle use Eyes- anicteric Neck- no JVD Lungs-mild wheeze bilaterally, crackles Heart- normal rate, regular rhythm; no murmurs Abdomen- normal bowel sounds, nondistended, soft, nontender Extremities- no pretibial edema, no calf tenderness Right knee: No edema/warmth/tenderness Right ankle: No edema warmth or tenderness Neuro- alert, oriented x 3; no gross focal neurologic deficits Skin- warm & dry Results & Data Vital Signs (Past 12 Hours) Vital Signs Temp Pulse Pulse Resp BP BP Pulse Ox 07/15/19 16:37 69 07/15/19 15:52 36.6 C 105 H 20 101/70 97 07/15/19 15:00 110 H 18 97 07/15/19 13:21 108 H 18 97 07/15/19 08:00 69 07/15/19 07:18 36.4 C L 90 20 132/76 100 07/15/19 07:14 83 18 98 (1) Altered mental status Altered mental status type: unspecified Qualified Code(s): R41.82 - Altered mental status, unspecified (2) Hypertension Hypertension type: unspecified Qualified Code(s): I10 - Essential (primary) hypertension (3) GERD (gastroesophageal reflux disease) Esophagitis presence: esophagitis presence not specified Qualified Code(s): K21.9 - Gastro-esophageal reflux disease without esophagitis
[2019-07-15 18:03] LABS: Base Excess ABG 17.2 mEq/L (-9-1.8); HCO3 ABG 44 mmol/L (19-24); Oxygen Saturation ABG 92.2 % (90-95); PCO2 ABG 63 mmHg (35-46); PO2 ABG 62 mm/Hg (80-95); pH ABG 7.46 (7.35-7.45)
[2019-07-15 18:05] LABS: Allen Test Pos (Pos)
[2019-07-15 18:28] LABS: BUN Creatinine Ratio 35.5 (10-20); Calcium 8.4 mg/dl (8.5-10.1); Est GFR (African American) 93.4; Est GFR (Non-African American) 80.6; Potassium 3.6 mmol/L (3.5-5.1)
[2019-07-15] MEDS: TRAMADOL HCL 50 MG TABLET PO PRN (19:45)
[2019-07-16] MEDS: methylPREDNISolone 40 MG in SYRINGE 0 ML IV SCH ×4 (00:09→22:59)
[2019-07-16] MEDS: IPRATROPIUM BROMIDE NEB SOLN 0.02% 2.5 ML VIAL INH SCH ×4 (01:00→19:18)
[2019-07-16] MEDS: LEVALBUTEROL HCL 0.63 MG/3 ML NEB NEB SCH ×4 (01:00→19:18)
[2019-07-16] MEDS: LOSARTAN POTASSIUM 25 MG TAB PO SCH (07:42)
[2019-07-16] MEDS: FUROSEMIDE 20 MG TAB PO SCH (07:42)
[2019-07-16] MEDS: ATORVASTATIN 40 MG TAB PO SCH (07:42)
[2019-07-16] MEDS: ASPIRIN 81 MG ECTAB PO SCH (07:42)
[2019-07-16] MEDS: PANTOprazole 40 MG TAB PO SCH (07:42)
[2019-07-16] MEDS: ROFLUMILAST 500 MCG TAB PO SCH (07:43)
[2019-07-16] MEDS: METOPROLOL SUCC 50MG EXT REL TAB PO SCH (07:43)
[2019-07-16] MEDS: MAGNESIUM OXIDE 400 MG TAB PO SCH (07:43)
[2019-07-16] MEDS: BUDESONIDE/FORMOTEROL FUMARATE 160/4.5 60 PUFFS/INHALER INH SCH ×2 (07:44→19:49)
[2019-07-16] MEDS: HEPARIN SOD 5,000 UNIT/0.5 ML VIAL SQ SCH ×2 (07:44→19:49)
[2019-07-16] MEDS: TRAMADOL HCL 50 MG TABLET PO PRN ×2 (10:24→22:58)
--- NOTE | 2019-07-16 14:34 | Hospitalist Progress Note ---
Date of Service July 16, 2019 Assessment & Plan (1) Acute on chronic respiratory failure with hypoxemia: secondary to COPD exacerbation Chest x-ray no signs of pneumonia Off BiPAP, back to 2 L of oxygen via nasal cannula Gradually improving Continue Solu-Medrol every 8 hours, continue nebs Trilogy use encouraged Appreciate pulmonary service consultation (2) COPD exacerbation: Management as above (3) Altered mental status: Metabolic encephalopathy secondary to hypercapnia and hypoxia and hypoxia Resolved (4) Chronic diastolic heart failure: Euvolemic, continue usual Lasix (5) Hypertension: Improved today, continue usual losartan (6) Dyslipidemia: Continue current dose of statin (7) GERD (gastroesophageal reflux disease): Continue PPI (8) Fibromyalgia: Stable (9) Talus fracture: Orthopedic service consulted Conservative management recommended Weightbearing as tolerated, continue bracing, continue PT and OT Knee x-ray ordered: Edema noted (10) Dysphagia: Reports food getting stuck on her sternal area Barium swallow ordered Soft diet ordered DVT prophylaxis Heparin Disposition Patient lives at home by herself PT OT evaluation ordered Subjective Follow-up for COPD exacerbation Resting in bedside chair, comfortable, not in distress States breathing is improved compared to yesterday Has occasional cough with scant yellow sputum Reports food getting stuck on the sternal area With no dizziness, shortness of breath, chest pain Denies any other symptoms Review of Systems Review of Systems: All systems reviewed & are unremarkable except as noted in HPI & below Physical Exam Physical Exam: General- oriented x 3, not in distress, speaks in sentences with no effort or accessory muscle use Eyes- anicteric Neck- no JVD Lungs-diminished but clear breath sounds bilaterally, no crackles or wheezing today Heart- normal rate, regular rhythm; no murmurs Abdomen- normal bowel sounds, nondistended, soft, nontender Extremities-right knee: No edema or tenderness Right ankle: Mild tenderness on the lateral aspect, no erythema, no edema, range of motion improved Neuro- alert, oriented x 3; no gross focal neurologic deficits Skin- warm & dry Results & Data Vital Signs (Past 12 Hours) Vital Signs Temp Pulse Pulse Resp BP BP Pulse Ox 07/16/19 13:55 103 H 18 97 07/16/19 12:47 93 07/16/19 10:44 36.5 C 103 H 20 122/76 96 07/16/19 07:38 36.7 C 91 H 22 138/64 98 07/16/19 07:12 86 16 100 07/16/19 04:18 36.8 C 87 18 120/73 99 07/16/19 02:37 82 (1) Altered mental status Altered mental status type: unspecified Qualified Code(s): R41.82 - Altered mental status, unspecified (2) GERD (gastroesophageal reflux disease) Esophagitis presence: esophagitis presence not specified Qualified Code(s): K21.9 - Gastro-esophageal reflux disease without esophagitis (3) Hypertension Hypertension type: unspecified Qualified Code(s): I10 - Essential (primary) hypertension
[2019-07-17] MEDS: LEVALBUTEROL HCL 0.63 MG/3 ML NEB NEB SCH ×4 (01:07→19:17)
[2019-07-17] MEDS: IPRATROPIUM BROMIDE NEB SOLN 0.02% 2.5 ML VIAL INH SCH ×4 (01:07→19:17)
--- NOTE | 2019-07-17 08:30 | Fluoroscopy Report ---
FL barium swallow CLINICAL HISTORY: dysphagia COMPARISON STUDY: Barium swallow January 13, 2016. FLUOROSCOPY TIME: 1.6 minutes. FLUOROSCOPIC IMAGES: 23. FINDINGS: Mild esophageal dysmotility was noted. No esophageal mass or stricture was identified. 13 m m barium tablet passed into the stomach. No hiatal hernia was identified. No reflux was elicited. Gas troesophageal junction was unremarkable. IMPRESSION: 1. Mild esophageal dysmotility. 2. No esophageal mass or stricture. Electronically signed by: Jas Franco M.D. 07/17/2019 8:29 AM
[2019-07-17] MEDS: LOSARTAN POTASSIUM 25 MG TAB PO SCH (08:35)
[2019-07-17] MEDS: PANTOprazole 40 MG TAB PO SCH (08:35)
[2019-07-17] MEDS: methylPREDNISolone 40 MG in SYRINGE 0 ML IV SCH ×3 (08:35→23:31)
[2019-07-17] MEDS: FUROSEMIDE 20 MG TAB PO SCH (08:35)
[2019-07-17] MEDS: ATORVASTATIN 40 MG TAB PO SCH (08:35)
[2019-07-17] MEDS: ASPIRIN 81 MG ECTAB PO SCH (08:35)
[2019-07-17] MEDS: ROFLUMILAST 500 MCG TAB PO SCH (08:35)
[2019-07-17] MEDS: HEPARIN SOD 5,000 UNIT/0.5 ML VIAL SQ SCH ×2 (08:36→20:08)
[2019-07-17] MEDS: MAGNESIUM OXIDE 400 MG TAB PO SCH (08:36)
[2019-07-17] MEDS: BUDESONIDE/FORMOTEROL FUMARATE 160/4.5 60 PUFFS/INHALER INH SCH ×2 (08:36→20:02)
[2019-07-17] MEDS: METOPROLOL SUCC 50MG EXT REL TAB PO SCH (08:36)
[2019-07-17] MEDS: TRAMADOL HCL 50 MG TABLET PO PRN (09:39)
--- NOTE | 2019-07-17 16:07 | Hospitalist Progress Note ---
Date of Service July 17, 2019 Assessment & Plan (1) Acute on chronic respiratory failure with hypoxemia: secondary to COPD exacerbation -Clinically much improved, Less wheeze, no cough, no dyspnea on exertion, Chest x-ray no signs of pneumonia Off BiPAP, back to 2 L of oxygen via nasal cannula We will start weaning down IV Solu medrol Trilogy use encouraged Patient has her trilogy machine at bedside Appreciate pulmonary service consultation (2) COPD exacerbation: Management as above (3) Altered mental status: Metabolic encephalopathy secondary to hypercapnia and hypoxia and hypoxia Resolved Patient is awake and alert, oriented, conversing appropriately (4) Chronic diastolic heart failure: Euvolemic, continue usual Lasix (5) Hypertension: Improved today, continue usual losartan (6) Dyslipidemia: Continue current dose of statin (7) GERD (gastroesophageal reflux disease): Continue PPI (8) Fibromyalgia: Stable (9) Talus fracture: Orthopedic service consulted Conservative management recommended Weightbearing as tolerated, continue bracing, continue PT and OT (10) Dysphagia: Reports food getting stuck on her sternal area Barium swallow ordered-shows mild esophageal dysmotility, Appreciate input from speech therapy, continue slippery soft bite size diet DVT prophylaxis Heparin Disposition Patient lives at home by herself PT OT evaluation ordered Has been looking into transition to personal [facility] for past few months Social service consulted for discharge planning Subjective Patient appears to be comfortable, reports of minimum shortness of breath, had some dyspnea on exertion when trying to walk across the room to use the toilet No cough No fever or chills Review of Systems Review of Systems: All systems reviewed & are unremarkable except as noted in HPI & below Physical Exam Constitutional: WD/WN, vitals as above no acute distress Eyes: PERRL, conjunctivae normal, anicteric sclerae ENMT: external ear and nose normal, oropharynx normal Neck: trachea midline, no thyromegaly Respiratory: normal respiratory effort, lungs clear to auscultation Cardiovascular: RRR, no murmur, no edema Gastrointestinal (Abdomen): normal bowel sounds, soft, nontender, no hepatosplenomegaly Musculoskeletal: no cyanosis or clubbing, extremities motor strength 5/5 Skin: no rashes, warm and dry Neurologic: PERRL, EOMI, accommodation nl, no face palsy, no dysarthria Psychiatric: A+Ox3, euthymic affect Results & Data Vital Signs (Past 12 Hours) Vital Signs Temp Pulse Resp BP BP Pulse Ox 07/17/19 15:45 36.8 C 91 H 18 92/48 L 95 07/17/19 12:59 97 H 16 97 07/17/19 11:40 36.8 C 101 H 16 118/80 96 07/17/19 07:12 90 18 96 (1) Altered mental status Altered mental status type: unspecified Qualified Code(s): R41.82 - Altered mental status, unspecified (2) GERD (gastroesophageal reflux disease) Esophagitis presence: esophagitis presence not specified Qualified Code(s): K21.9 - Gastro-esophageal reflux disease without esophagitis (3) Hypertension Hypertension type: unspecified Qualified Code(s): I10 - Essential (primary) hypertension
[2019-07-18] MEDS: IPRATROPIUM BROMIDE NEB SOLN 0.02% 2.5 ML VIAL INH SCH ×4 (01:14→19:21)
[2019-07-18] MEDS: LEVALBUTEROL HCL 0.63 MG/3 ML NEB NEB SCH ×4 (01:14→19:21)
[2019-07-18] MEDS: FUROSEMIDE 20 MG TAB PO SCH (08:23)
[2019-07-18] MEDS: MAGNESIUM OXIDE 400 MG TAB PO SCH (08:23)
[2019-07-18] MEDS: methylPREDNISolone 40 MG in SYRINGE 0 ML IV SCH ×3 (08:23→23:40)
[2019-07-18] MEDS: METOPROLOL SUCC 50MG EXT REL TAB PO SCH (08:23)
[2019-07-18] MEDS: HEPARIN SOD 5,000 UNIT/0.5 ML VIAL SQ SCH ×2 (08:23→20:29)
[2019-07-18] MEDS: LOSARTAN POTASSIUM 25 MG TAB PO SCH (08:24)
[2019-07-18] MEDS: ROFLUMILAST 500 MCG TAB PO SCH (08:24)
[2019-07-18] MEDS: ASPIRIN 81 MG ECTAB PO SCH (08:24)
[2019-07-18] MEDS: ATORVASTATIN 40 MG TAB PO SCH (08:25)
[2019-07-18] MEDS: PANTOprazole 40 MG TAB PO SCH (08:25)
[2019-07-18] MEDS: BUDESONIDE/FORMOTEROL FUMARATE 160/4.5 60 PUFFS/INHALER INH SCH ×2 (08:25→20:29)
[2019-07-18] MEDS: TRAMADOL HCL 50 MG TABLET PO PRN ×2 (08:58→23:55)
--- NOTE | 2019-07-18 17:11 | Hospitalist Progress Note ---
Date of Service July 18, 2019 Assessment & Plan (1) Acute on chronic respiratory failure with hypoxemia: Patient clinically continues to improve secondary to COPD exacerbation No audible wheeze wheeze, no cough, no dyspnea on exertion, Chest x-ray no signs of pneumonia Off BiPAP, back to 2 L of oxygen via nasal cannula Transition to p.o. prednisone starting from tomorrow Trilogy use encouraged Patient has her trilogy machine at bedside Appreciate pulmonary service consultation (2) COPD exacerbation: Management as above (3) Altered mental status: Metabolic encephalopathy secondary to hypercapnia and hypoxia and hypoxia Resolved Patient is awake and alert, oriented, conversing appropriately (4) Chronic diastolic heart failure: Euvolemic, continue usual Lasix (5) Hypertension: Improved today, continue usual losartan (6) Dyslipidemia: Continue current dose of statin (7) GERD (gastroesophageal reflux disease): Continue PPI (8) Fibromyalgia: Stable (9) Talus fracture: Orthopedic service consulted Conservative management recommended Weightbearing as tolerated, continue bracing, continue PT and OT (10) Dysphagia: Reports food getting stuck on her sternal area Barium swallow ordered-shows mild esophageal dysmotility, Appreciate input from speech therapy, continue slippery soft bite size diet Has been tolerating diet no evidence of aspiration, coughing during meals noted DVT prophylaxis SC Heparin Disposition Patient lives at home by herself PT OT evaluation ordered Plan to return home with [facility] Has been looking into transition to [facility] for past few months Social service consulted for discharge planning Subjective Patient reports improvement of cough, no audible wheeze no shortness of breath no dyspnea on exertion Has been afebrile Physical Exam Constitutional: WD/WN, vitals as above no acute distress Eyes: PERRL, conjunctivae normal, anicteric sclerae ENMT: external ear and nose normal, oropharynx normal Neck: trachea midline, no thyromegaly Respiratory: normal respiratory effort, lungs clear to auscultation Cardiovascular: RRR, no murmur, no edema Gastrointestinal (Abdomen): normal bowel sounds, soft, nontender, no hepatosplenomegaly Musculoskeletal: no cyanosis or clubbing, extremities motor strength 5/5 Skin: no rashes, warm and dry Neurologic: PERRL, EOMI, accommodation nl, no face palsy, no dysarthria Psychiatric: A+Ox3, euthymic affect Results & Data Vital Signs (Past 12 Hours) Vital Signs Temp Pulse Pulse Resp BP BP Pulse Ox 07/18/19 16:15 110 H 07/18/19 15:01 36.8 C 91 H 19 119/77 98 07/18/19 13:42 89 18 97 07/18/19 13:05 36.6 C 92 H 18 138/88 96 07/18/19 12:04 36.6 C 101 H 16 147/87 H 94 07/18/19 07:40 36.8 C 103 H 18 134/79 96 07/18/19 07:09 87 20 98 (1) Altered mental status Altered mental status type: unspecified Qualified Code(s): R41.82 - Altered mental status, unspecified (2) GERD (gastroesophageal reflux disease) Esophagitis presence: esophagitis presence not specified Qualified Code(s): K21.9 - Gastro-esophageal reflux disease without esophagitis (3) Hypertension Hypertension type: unspecified Qualified Code(s): I10 - Essential (primary) hypertension
[2019-07-19] MEDS: LEVALBUTEROL HCL 0.63 MG/3 ML NEB NEB SCH ×3 (00:22→13:17)
[2019-07-19] MEDS: IPRATROPIUM BROMIDE NEB SOLN 0.02% 2.5 ML VIAL INH SCH ×3 (00:22→13:17)
[2019-07-19] MEDS: CALCIUM CARBONATE 500 MG CHEWABLE TAB PO PRN ×2 (04:28→08:40)
[2019-07-19] MEDS: PANTOprazole 40 MG TAB PO SCH (08:39)
[2019-07-19] MEDS: ATORVASTATIN 40 MG TAB PO SCH (08:39)
[2019-07-19] MEDS: LOSARTAN POTASSIUM 25 MG TAB PO SCH (08:39)
[2019-07-19] MEDS: METOPROLOL SUCC 50MG EXT REL TAB PO SCH (08:39)
[2019-07-19] MEDS: MAGNESIUM OXIDE 400 MG TAB PO SCH (08:40)
[2019-07-19] MEDS: FUROSEMIDE 20 MG TAB PO SCH (08:40)
[2019-07-19] MEDS: HEPARIN SOD 5,000 UNIT/0.5 ML VIAL SQ SCH ×3 (08:40→21:15)
[2019-07-19] MEDS: ASPIRIN 81 MG ECTAB PO SCH (08:41)
[2019-07-19] MEDS: ROFLUMILAST 500 MCG TAB PO SCH (08:41)
[2019-07-19] MEDS: BUDESONIDE/FORMOTEROL FUMARATE 160/4.5 60 PUFFS/INHALER INH SCH ×2 (08:43→20:45)
[2019-07-19] MEDS: methylPREDNISolone 40 MG in SYRINGE 0 ML IV SCH (09:26)
[2019-07-19] MEDS: TRAMADOL HCL 50 MG TABLET PO PRN (11:37)
[2019-07-19] MEDS ORDERED: LEVALBUTEROL HCL 0.63 MG/3 ML NEB NEB PRN (13:38)
[2019-07-19] MEDS ORDERED: IPRATROPIUM BROMIDE NEB SOLN 0.02% 2.5 ML VIAL INH PRN (13:38)
--- NOTE | 2019-07-19 14:34 | Hospitalist Progress Note ---
Date of Service July 19, 2019 Assessment & Plan (1) Acute on chronic respiratory failure with hypoxemia: Patient clinically continues to improve Speech status improved to approximate baseline secondary to COPD exacerbation No audible wheeze wheeze, no cough, no dyspnea on exertion, Chest x-ray no signs of pneumonia Off BiPAP, back to 2 L of oxygen via nasal cannula Transition to p.o. prednisone 20 mg daily Trilogy use encouraged- Patient has her trilogy machine at bedside (2) COPD exacerbation: Management as above (3) Altered mental status: Metabolic encephalopathy secondary to hypercapnia and hypoxia and hypoxia Resolved Patient is awake and alert, oriented, conversing appropriately (4) Chronic diastolic heart failure: Euvolemic, continue usual Lasix (5) Hypertension: Improved today, continue usual losartan (6) Dyslipidemia: Continue current dose of statin (7) GERD (gastroesophageal reflux disease): Continue PPI (8) Fibromyalgia: Stable (9) Talus fracture: Orthopedic service consulted Conservative management recommended Weightbearing as tolerated, continue bracing, continue PT and OT (10) Dysphagia: Reports food getting stuck on her sternal area Barium swallow ordered-shows mild esophageal dysmotility, Appreciate input from speech therapy, continue slippery soft bite size diet Has been tolerating diet no evidence of aspiration, coughing during meals noted DVT prophylaxis SC Heparin Disposition Patient lives at home by herself PT OT evaluation ordered Plan to return home with [facility] Possible discharge home tomorrow Subjective Is to feel well, no cough no audible wheeze no fever chills Wants to be discharged from hospital tomorrow if possible Has nondisplaced talus fracture on left leg from recent fall Does not have any pain, able to bear weight, Per orthopedics no surgical intervention needed, outpatient follow-up in 2 to 3 weeks Physical Exam Constitutional: WD/WN, vitals as above no acute distress Eyes: PERRL, conjunctivae normal, anicteric sclerae ENMT: external ear and nose normal, oropharynx normal Neck: trachea midline, no thyromegaly Respiratory: normal respiratory effort, lungs clear to auscultation Cardiovascular: RRR, no murmur, no edema Gastrointestinal (Abdomen): normal bowel sounds, soft, nontender, no hepatosplenomegaly Musculoskeletal: no cyanosis or clubbing, extremities motor strength 5/5 Skin: no rashes, warm and dry Neurologic: PERRL, EOMI, accommodation nl, no face palsy, no dysarthria Psychiatric: A+Ox3, euthymic affect Results & Data Vital Signs (Past 12 Hours) Vital Signs Temp Pulse Resp BP Pulse Ox 07/19/19 13:17 100 H 20 92 07/19/19 07:11 36.7 C 78 18 135/79 94 07/19/19 06:59 85 18 100 (1) Altered mental status Altered mental status type: unspecified Qualified Code(s): R41.82 - Altered mental status, unspecified (2) Hypertension Hypertension type: unspecified Qualified Code(s): I10 - Essential (primary) hypertension (3) GERD (gastroesophageal reflux disease) Esophagitis presence: esophagitis presence not specified Qualified Code(s): K21.9 - Gastro-esophageal reflux disease without esophagitis
[2019-07-20] MEDS: PANTOprazole 40 MG TAB PO SCH (07:15)
[2019-07-20] MEDS: HEPARIN SOD 5,000 UNIT/0.5 ML VIAL SQ SCH (07:16)
[2019-07-20] MEDS: LOSARTAN POTASSIUM 25 MG TAB PO SCH (07:16)
[2019-07-20] MEDS: ROFLUMILAST 500 MCG TAB PO SCH (07:17)
[2019-07-20] MEDS: METOPROLOL SUCC 50MG EXT REL TAB PO SCH (07:18)
[2019-07-20] MEDS: FUROSEMIDE 20 MG TAB PO SCH (07:18)
[2019-07-20] MEDS: MAGNESIUM OXIDE 400 MG TAB PO SCH (07:19)
[2019-07-20] MEDS: ASPIRIN 81 MG ECTAB PO SCH (07:19)
[2019-07-20] MEDS: ATORVASTATIN 40 MG TAB PO SCH (07:19)
[2019-07-20] MEDS: BUDESONIDE/FORMOTEROL FUMARATE 160/4.5 60 PUFFS/INHALER INH SCH (07:21)
[2019-07-20] MEDS: TRAMADOL HCL 50 MG TABLET PO PRN (07:29)
[2019-07-20] MEDS: CALCIUM CARBONATE 500 MG CHEWABLE TAB PO PRN (08:28)
[2019-07-20] MEDS ORDERED: predniSONE 20 MG TAB PO SCH (09:00)
--- NOTE | 2019-07-20 15:30 | Discharge Summary ---
Date of Service July 20, 2019 Admission HPI Per Admitting Provider She is a 73-year-old female with significant past medical history of chronic respiratory failure with hypoxia and hypercapnia on home O2 and BiPAP at night, chronic diastolic heart failure, COPD, fibromyalgia, GERD MRI and hypertension has had a fall this morning with pain right ankle and right knee. She was brought in by ambulance and in the emergency room initially she was having hypoxemia and also noted very confused. He did not have any fracture of the ankle but she was noted to have CO2 of 99 in ABG and following BiPAP administration her mental status has been clearing up. She mentions that she has had a fall this morning while she was coming out of chair with increasing shakes involving both of her upper extremities. She did not lose any consciousness but she called for help and the neighbor called 911 and she was brought into the emergency room very confused. She has cough with whitish phlegm, denies any fever and/or chills, any chest pain and/or palpitation, any abdominal pain nausea no vomiting. She was placed on BiPAP in the emergency room for acute respiratory failure with hypoxia and hypercarbia and she was admitted to telemetry unit for continuation of care. Principal Diagnosis COPD exacerbation: Resolved Discharge Exam Constitutional WD/WN, vitals as above no acute distress Eyes PERRL, conjunctivae normal, anicteric sclerae ENMT external ear and nose normal, oropharynx normal Neck trachea midline, no thyromegaly Respiratory normal respiratory effort, lungs clear to auscultation Cardiovascular RRR, no murmur, no edema Gastrointestinal (Abdomen) normal bowel sounds, soft, nontender, no hepatosplenomegaly Musculoskeletal no cyanosis or clubbing, extremities motor strength 5/5 Skin no rashes, warm and dry Neurologic PERRL, EOMI, accommodation nl, no face palsy, no dysarthria Psychiatric A+Ox3, euthymic affect Discharge Data Allergies Allergy/AdvReac Type Severity Reaction Status Date / Time duloxetine [From Cymbalta] Allergy Rash Verified 07/12/19 11:07 naproxen AdvReac Mild GI Verified 07/12/19 11:07 SYMPTOMS-PT DENIES Consultations 07/12/19 16:22 Consult Pulmonology Routine 07/13/19 08:53 Consult Orthopedic Surgery Routine Ordered Studies 07/17/19 08:00 FL barium swallow Routine Hospital Course (1) Acute on chronic respiratory failure with hypoxemia: Patient clinically improved, no shortness of breath no dyspnea on exertion, patient able to ambulate on the hallway Chronic oxygen supplement Respiratory status stable/improved to baseline Presented with hypoxia shortness of breath, acute on chronic respiratory failure secondary to COPD exacerbation No audible wheeze wheeze, no cough, no dyspnea on exertion, Chest x-ray no signs of pneumonia Treated on BiPAP for short duration of time, back to 2 L of oxygen via nasal cannula IV Solu-Medrol discontinued Patient will be discharged with p.o. prednisone taper Patient has home trilogy machine already Trilogy use encouraged-at bedtime, Patient verbalized understanding (2) COPD exacerbation: Management as above (3) Altered mental status: Metabolic encephalopathy secondary to hypercapnia and hypoxia and hypoxia Resolved Patient is awake and alert, oriented, conversing appropriately Patient is counseled repeatedly time to use trilogy machine at home at bedtime/during sleep (4) Chronic diastolic heart failure: Euvolemic, continue usual Lasix (5) Hypertension: Improved today, continue usual losartan (6) Dyslipidemia: Continue current dose of statin (7) GERD (gastroesophageal reflux disease): Continue PPI (8) Fibromyalgia: Stable (9) Talus fracture: Orthopedic service consulted Conservative management recommended Weightbearing as tolerated, continue bracing, continue PT and OT (10) Dysphagia: Reports food getting stuck on her sternal area Barium swallow ordered-shows mild esophageal dysmotility, Appreciate input from speech therapy, continue slippery soft bite size diet Has been tolerating diet no evidence of aspiration, coughing during meals noted DVT prophylaxis SC Heparin Disposition Patient lives at home by herself PT OT evaluation ordered patient input Stable to be discharged home home with [facility] Possible discharge home tomorrow Total Time Total Time Spent Total Time Spent (In Minutes): Approximately 40 minutes Total Time Includes: Examination of the Patient, Discharge Planning and Medication Reconciliation Discharge Plan Discharge Items Patient Disposition: Home - Home Health Services Reason For Visit: ACUTE RESPIRATORY FAILURE, S/P FALL Discharge Diagnosis: COPD exacerbation: Resolved Condition on Discharge: Serious Activity: Resume your previous activity Non-emergency contact: Primary Care Provider Call non-emergency contact if: you have any medication questions Follow-up/Referrals: Russ Moon MD [Primary Care Provider] - 07/24/19 12:45 pm Diet: Heart Healthy Diet Texture: Dental soft (bite-sized) Addtl Attending Provider Instructions: Hospital follow-up with Dr. Felipe on , 07/24/2019 at 12:45 PM New medication: Prednisone taper dose Take prednisone 40 mg daily for 2 days Then prednisone 20 mg daily for 2 days Then prednisone 10 mg daily for 2 days Then stop Pending Studies at Discharge: No Stand-Alone Forms: My [facility] Medications and DC Order Prescriptions: New prednisone 20 mg tablet 20 mg PO UD 6 Days Qty: 8 RF: 0 Continued Spiriva with HandiHaler 18 mcg capsule, w/inhalation device 1 cap INHALATION QAM 30 Days Qty: 30 RF: 5 Symbicort 160-4.5 mcg/actuation HFA aerosol inhaler 2 puff INHALATION BID 30 Days Qty: 10.2 RF: 5 magnesium oxide 400 mg magnesium Capsule 400 mg PO QAM RF: 0 atorvastatin 40 mg Tablet 40 mg PO QAM RF: 0 acetaminophen [Tylenol Extra Strength] 500 mg Tablet 1,000 mg PO Q6H PRN (Reason: Pain) RF: 0 calcium carbonate [Tums] 200 mg calcium (500 mg) Tablet,Chewable 200 mg PO BID PRN (Reason: Indigestion) RF: 0 losartan 25 mg Tablet 25 mg PO QAM RF: 0 albuterol sulfate [Ventolin HFA] 90 mcg/actuation Hfa Aerosol Inhaler 2 puff INHALATION Q4H PRN (Reason: Shortness Of Breath Or Wheezing) RF: 0 diclofenac sodium [Voltaren] 1 % Gel 2 g TOPICAL QID PRN (Reason: Pain) RF: 0 docusate sodium [Colace] 100 mg capsule 100 mg PO BID PRN (Reason: Constipation) RF: 0 ranitidine HCl 150 mg Tablet 150 mg PO BID RF: 0 aspirin [Aspir-81] 81 mg Tablet,Delayed Release (Dr/Ec) 81 mg PO QAM RF: 0 ipratropium-albuterol 0.5 mg-3 mg(2.5 mg base)/3 mL Solution For Nebulization 3 ml INHALATION QID RF: 0 furosemide [Lasix] 40 mg Tablet 20 mg PO DAILY RF: 0 metoprolol succinate 50 mg tablet extended release 24 hr 50 mg PO DAILY RF: 0 pantoprazole 40 mg Tablet,Delayed Release (Dr/Ec) 40 mg PO DAILY RF: 0 Daliresp 250 mcg tablet 250 mcg PO DAILY 30 Days Qty: 30 RF: 5 Discharge Orders: Discharge Order (Routine); Ordered 07/20/19 Ordered By: Flora Taylor Admission Data Admit Date/Time: 07/12/19 15:13 Attending Provider: Flora Taylor Admit Provider: Max Hallman Primary Care Provider: Russ Moon Other Providers: Max Hallman ; [place] ; Ganesh Han ; [facility] ; [place] ; Ravinder Chowdhury ; Deyvi Hercules Other Interventions: Discharge Summary Assessment (RN) Last Done: 07/20/19 12:33 DC Date/Time DO NOT enter until pt leaves facility: 07/20/19 15:05
== END 2019-07-20 15:05 | disposition home health service (06) | DRG 189 ==
LOC: ED 09:45 → SUATTDRO 15:13 → 2S 15:13 → 2W 07-18 13:09

== ENCOUNTER 2021-01-19 09:16 | Inpatient (IN) ==
[2021-01-19] MEDS ORDERED: ALBUT/IPRATROP 3MG/0.5MG NEB 3 ML VIAL INH STA (09:42)
--- NOTE | 2021-01-19 10:02 | Emergency Department Note ---
Impression & Plan SOB (shortness of breath), Hypoxia, Heme positive stool, Rectal bleeding, Lower back pain ED Provider Note NAME: ARTURO HIDALGO AGE: 75 SEX: F : 1945 ARRIVES VIA: Ambulance INFORMANT: [Patient][ems] ED PROVIDER(S): [Nate Ibanez MD] CHIEF COMPLAINT: Shortness of breath HISTORY OF PRESENT ILLNESS: The patient is a 75-year-old female presents with a few days of increasing shortness of breath and slight increase in cough. Patient lives alone and does not feel safe alone at this point. She called the ambulance. There was concern that maybe her oxygen delivery system was not working as she states it was making a noise. She typically wears 2 to 3 L of oxygen at all times. Patient is using her inhalers, not her nebulizers. She has not had fever or vomiting. There has been no chest pain or abdominal pain. No recent falls. The patient lives alone, she states that her family drops of groceries for her but does not really aid in helping her on a daily basis otherwise. In addition to the above, she also complains of some recent blood in her stool as well as some lower back pain. REVIEW OF SYSTEMS: See HPI for pertinent positives and negatives. A total of ten systems were reviewed and were otherwise negative. PMHx/PSHx: See Below SOCIAL HISTORY: See Below. PHYSICAL EXAM: GENERAL: Patient is in no acute distress. HEENT: No acute trauma, normocephalic atraumatic, mucous membranes moist, no nasal congestion, no scleral icterus. NECK: No stridor, no adenopathy, no meningismus, trachea is midline. LUNGS: Wheezing bilaterally, significantly diminished breath sounds bilaterally. She seemed short of breath with speaking. No crackles. HEART: 2/6 systolic murmur, mildly tachycardic, regular rhythm. ABDOMEN: Soft, nontender, bowel sounds positive, no hernias, no peritonitis. EXTREMITIES: No cyanosis or edema, full range of motion of all the joints without pain or difficulty, no signs for acute trauma. NEUROLOGIC: Oriented x 3, no acute motor or sensory deficits, no focal weakness. SKIN: No rash, no jaundice, no diaphoresis. Rectal: Dark brown stool, heme positive. DIFFERENTIAL DIAGNOSIS: Reactive airway disease, pneumonia, pneumothorax, COPD, COVID-19, influenza, CHF, infection, cardiac ischemia, pulmonary embolism, bronchitis, musculoskeletal, gastrointestinal, as well as other pathologies. EMERGENCY DEPARTMENT COURSE/PROCEDURES: ECG: Indication was shortness of breath. The ECG shows a normal sinus rhythm with a rate of 97. There is no ST elevation, no PVCs. The QTc is 429. Continuous Cardiac Monitoring: An order was placed for continuous cardiac monitoring. The monitor shows a rate of 102 with sinus tachycardia. Critical Care Note: I have personally spent 53 minutes of critical care time in the direct management of this patient. This includes bedside care, interpretation of diagnostic studies, and testing, discussion with consultants, patient, and family members, and other required patient management activities. This 53 minutes is in excess of all separately billable procedures. MEDICAL DECISION MAKING: There is no leukocytosis or concerning anemia. There is a normal platelet count. No coagulopathy. VBG did not show any real hypoxia. The patient was retaining CO2 but this is baseline when looking back at her previous testing. Renal panel testing shows CO2 retention as well, no kidney failure. No concerning liver enzyme elevation. ECG shows a sinus rhythm, no acute ischemia. Cardiac enzyme testing x1 is not consistent with acute cardiac injury. Urinalysis does not show infection. Covid and influenza testing returned negative. Chest x-ray did not show CHF or pneumothorax. I did not see any obvious pneumonia. Chest CT does not show PE, no pneumonia. Lumbar spine CT did not show any acute fracture. Patient was walked in her room, despite her typical oxygen amount, her O2 saturation dropped to 88%. She did seem dyspneic when speaking and when trying to ambulate. She had complained of some rectal bleeding the other day, I did perform a rectal exam, stool was brown but heme positive. The patient was given a DuoNeb. She received a 500 cc saline bolus. She was given a bolus of IV Protonix. The patient presents with multiple complaints. She was found to be hypoxic despite her typical O2. She does have heme positive stool. She seemed quite short of breath with just speaking and telling her story. Hospitalization is warranted. I spoke to the patient and case management. The on-call hospitalist was consulted. Past Med/Surg History Medical History (Updated 01/19/21 @ 18:03 by Nate Ibanez MD) BCC (basal cell carcinoma of skin) on left side of face---"s/p MOHS surgery" Chronic diastolic heart failure Chronic respiratory failure with hypoxia, on home O2 therapy OXYGEN 3L/MIN VIA NC COPD (chronic obstructive pulmonary disease) inhaler daily/prn and nebulizer prn Degenerative disc disease Dyslipidemia Fibromyalgia GERD (gastroesophageal reflux disease) Hypertension On home oxygen therapy 3L N/C at all times Osteoporosis Sinus tachycardia SOB (shortness of breath) on exertion Tremor of both hands Surgical History History of bilateral cataract extraction History of carpal tunnel surgery of right wrist History of colonoscopy with polypectomy History of esophagogastroduodenoscopy (EGD) History of left breast biopsy benign History of mandibular surgery jaw fx History of repair of left rotator cuff History of repair of right rotator cuff History of tooth extraction S/P Mohs surgery for basal cell carcinoma Status post appendectomy Status post excision of lipoma removed off neck x2 Status post hysterectomy Status post repair of ventral hernia Family History Grandfather (Maternal) Family hx of colon cancer Father FH: kidney cancer Family/Other Family history of diabetes mellitus nephew Other Kidney disease Lung disease No family history of adverse response to anesthesia Social History Smoking Status: Former smoker Tobacco Type: Cigarettes Cigarettes Per Day: unsure when she quit; Smoking End Date: 2003; Second Hand Exposure: No; Do You Dip or Chew Tobacco: No; Tobacco Cessation Education Requested by Patient: No Hx Alcohol Use: No Hx Substance Use: No Preferred Language: [place] Leonean Communication Ability: Effective Office Spec Required: No Beliefs That Will Affect Care: None marital status: / Current Living Situation: Alone current occupational status: retired How many Children do You have: 3 Other Information That Helps Us Care for You: Yes Feels Safe at Home: Yes Safety Concerns: Feels Safe At This Time Assistive Devices: Cane, Denture - Upper and Glasses Allergies Allergies Allergy/AdvReac Type Severity Reaction Status Date / Time duloxetine [From Cymbalta] Allergy Mild Rash Verified 10/03/20 12:55 naproxen AdvReac Mild GI SYMPTOMS Verified 10/03/20 12:55 Home Meds Home Medications Medication Instructions Recorded Confirmed albuterol sulfate [Ventolin HFA] 2 puff INHALATION Q4H PRN 12/14/18 01/19/21 atorvastatin 40 mg PO QAM 12/14/18 01/19/21 losartan 25 mg PO QAM 12/14/18 01/19/21 magnesium oxide 400 mg PO QAM 02/13/19 01/19/21 metoprolol succinate 50 mg PO QAM 04/22/19 01/19/21 diclofenac sodium 1 % topical gel 1 ea TOP UD 01/22/20 01/19/21 tramadol 50 mg tablet 50 mg PO Q6H PRN 01/22/20 01/19/21 aspirin [Aspir-81] 81 mg PO DAILY 01/19/21 01/19/21 docusate sodium 100 mg PO BID 01/19/21 01/19/21 Previous Rx's Medication Instructions Recorded ipratropium 0.5 mg-albuterol 3 mg 3 ml INHALATION QID PRN #360 ml 09/10/19 (2.5 mg base)/3 mL nebulization soln Oxygen Home #1 ea 11/05/19 budesonide-formoterol HFA 160 2 puffs INH BID #10.2 gm 03/05/20 mcg-4.5 mcg/actuation aerosol inhaler roflumilast 250 mcg tablet 250 mcg PO QAM #90 tab 06/30/20 Results & Data (ED) Vital Signs Vital Signs - 24 hr 01/19/21 09:21 01/19/21 09:26 01/19/21 09:30 Temperature 36.9 C Temperature Source Oral Pulse Rate 100 H Pulse Rate [Left Finger] Pulse Rate from SpO2 Sensor 100 H Respiratory Rate 18 26 H Respiratory Effort / Characteristics Spontaneous Non-Labored Spontaneous Respiratory Depth Normal Normal Respiratory Pattern Regular Blood Pressure 175/77 H Blood Pressure [Left Arm] 166/88 H Blood Pressure Mean 109 Blood Pressure Mean [Left Arm] 114 Pulse Oximetry 100 100 Oxygen Delivery Method Room Air Nasal Cannula Nasal Cannula Oxygen Flow Rate 2 Sepsis Recent Fever Within 48 Hours Sepsis New/Unexplained Change in Mental Status Sepsis Action Taken by Nursing Oxygen Flow Rate - Titration Pulse Oximetry Post Tiitration 01/19/21 09:32 01/19/21 09:38 01/19/21 09:55 Temperature Temperature Source Pulse Rate Pulse Rate [Left Finger] 103 H Pulse Rate from SpO2 Sensor Respiratory Rate 28 H Respiratory Effort / Characteristics Spontaneous Respiratory Depth Respiratory Pattern Blood Pressure 175/71 H Blood Pressure [Left Arm] Blood Pressure Mean 105 Blood Pressure Mean [Left Arm] Pulse Oximetry 100 100 Oxygen Delivery Method Nasal Cannula Nasal Cannula Oxygen Flow Rate 2 3.5 Sepsis Recent Fever Within 48 Hours No Sepsis New/Unexplained Change in Mental Status N/A Sepsis Action Taken by Nursing No Action Required Oxygen Flow Rate - Titration 2 Pulse Oximetry Post Tiitration 100 01/19/21 10:00 01/19/21 10:01 01/19/21 10:33 Temperature Temperature Source Pulse Rate 97 H 97 H Pulse Rate [Left Finger] Pulse Rate from SpO2 Sensor 98 H 98 H Respiratory Rate 24 26 H Respiratory Effort / Characteristics Respiratory Depth Respiratory Pattern Blood Pressure 165/92 H Blood Pressure [Left Arm] Blood Pressure Mean 116 Blood Pressure Mean [Left Arm] Pulse Oximetry 100 100 98 Oxygen Delivery Method Nasal Cannula Nasal Cannula Oxygen Flow Rate 2 2 Sepsis Recent Fever Within 48 Hours Sepsis New/Unexplained Change in Mental Status Sepsis Action Taken by Nursing Oxygen Flow Rate - Titration Pulse Oximetry Post Tiitration 01/19/21 10:55 01/19/21 11:00 01/19/21 12:00 Temperature Temperature Source Pulse Rate 98 H 100 H 99 H Pulse Rate [Left Finger] Pulse Rate from SpO2 Sensor 93 H 95 H 99 H Respiratory Rate 24 26 H 22 Respiratory Effort / Characteristics Respiratory Depth Respiratory Pattern Blood Pressure 179/83 H 184/82 H Blood Pressure [Left Arm] Blood Pressure Mean 115 116 Blood Pressure Mean [Left Arm] Pulse Oximetry 96 97 99 Oxygen Delivery Method Nasal Cannula Nasal Cannula Oxygen Flow Rate 2 2 Sepsis Recent Fever Within 48 Hours Sepsis New/Unexplained Change in Mental Status Sepsis Action Taken by Nursing Oxygen Flow Rate - Titration Pulse Oximetry Post Tiitration 01/19/21 12:16 01/19/21 12:27 01/19/21 13:13 Temperature Temperature Source Pulse Rate 97 H 110 H Pulse Rate [Left Finger] 90 Pulse Rate from SpO2 Sensor 98 H 110 H Respiratory Rate 29 H 22 26 H Respiratory Effort / Characteristics Respiratory Depth Respiratory Pattern Blood Pressure 128/85 Blood Pressure [Left Arm] 145/75 H Blood Pressure Mean 99 Blood Pressure Mean [Left Arm] 98 Pulse Oximetry 98 84 L 88 L Oxygen Delivery Method Nasal Cannula Nasal Cannula Oxygen Flow Rate 2 2 Sepsis Recent Fever Within 48 Hours Sepsis New/Unexplained Change in Mental Status Sepsis Action Taken by Nursing Oxygen Flow Rate - Titration Pulse Oximetry Post Tiitration 01/19/21 13:15 01/19/21 13:16 01/19/21 13:54 Temperature Temperature Source Pulse Rate Pulse Rate [Left Finger] 91 H Pulse Rate from SpO2 Sensor 100 H 96 H Respiratory Rate 31 H 24 24 Respiratory Effort / Characteristics Non-Labored Spontaneous Respiratory Depth Respiratory Pattern Blood Pressure 128/71 130/83 Blood Pressure [Left Arm] Blood Pressure Mean 90 98 Blood Pressure Mean [Left Arm] Pulse Oximetry 94 97 96 Oxygen Delivery Method Nasal Cannula Oxygen Flow Rate 2 Sepsis Recent Fever Within 48 Hours Sepsis New/Unexplained Change in Mental Status Sepsis Action Taken by Nursing Oxygen Flow Rate - Titration Pulse Oximetry Post Tiitration Home Medications Current Medication List: was personally reviewed by me Laboratory Data Attestation: I reviewed the patient's lab results. Result diagrams: 01/19/21 09:57 01/19/21 09:57 Lab Results 01/19/21 01/19/21 01/19/21 Range/Units 09:54 09:54 09:57 WBC 7.57 (4.8-10.8) K/uL RBC 4.53 (4.2-5.4) M/uL Hgb 12.4 (12.0-16.0) g/dL Hct 42.1 (37-47) % MCV 92.9 (80-100) fL MCH 27.4 (25-34) pg MCHC 29.5 L (32-36) g/dL RDW Std Deviation 45.9 (36.4-46.3) fL RDW Coeff of Reg 13.5 (11.5-14.5) % Plt Count 173 (130-400) K/uL MPV 11.0 H (7.4-10.4) fL Immature Gran % (Auto) 0.3 % Neut % (Auto) 80.9 % Lymph % (Auto) 10.7 % [place] % (Auto) 7.1 % Eos % (Auto) 0.9 % Baso % (Auto) 0.1 % Neut # (Auto) 6.12 (1.4-6.5) K/uL Lymph # (Auto) 0.81 L (1.2-3.4) K/uL [place] # (Auto) 0.54 (0.11-0.59) K/uL Eos # (Auto) 0.07 (0-0.5) K/uL Baso # (Auto) 0.01 (0-0.2) K/uL Immature Gran # (Auto) 0.02 (0.00-0.02) K/uL PT (9.0-12.0) Seconds INR (0.9-1.1) APTT (21.0-31.0) Seconds PTT Ratio VBG pH (7.36-7.41) VBG pCO2 (38-50) mmHg VBG pO2 mmHg VBG HCO3 mmol/L VBG O2 Saturation % VBG Base Excess mEq/L Barometric Pressure mm/Hg Sodium (136-145) mmol/L Potassium (3.5-5.1) mmol/L Chloride (98-107) mmol/L Carbon Dioxide (21-32) mmol/L Anion Gap (3-11) BUN (7-18) mg/dl Creatinine (0.6-1.2) mg/dl Est Cr Clr Drug Dosing ml/min Est GFR ( Amer) Est GFR (Non-Af Amer) BUN/Creatinine Ratio (10-20) Glucose (70-99) mg/dl Calcium (8.5-10.1) mg/dl Magnesium (1.8-2.4) mg/dl Total Bilirubin (0.2-1) mg/dl AST (15-37) U/L ALT (12-78) U/L Alkaline Phosphatase (45-117) U/L Troponin I (0-0.045) ng/ml Total Protein (6.4-8.2) gm/dl Albumin (3.4-5.0) gm/dl Globulin (2.5-4.0) gm/dl Albumin/Globulin Ratio (0.9-2) Urine Color Urine Appearance (Clear) Urine pH (4.5-7.5) Ur Specific [place] (1.000-1.030) Urine Protein (Negative) Urine Glucose (UA) (Negative) Urine Ketones (Negative) Urine Blood (Negative) Urine Nitrite (Negative) Urine Bilirubin (Negative) Urine Urobilinogen (Negative) Ur Leukocyte Esterase (Negative) Urine WBC (Auto) (0-5) /hpf Urine RBC (Auto) (0-4) /hpf U Hyaline Cast (Auto) (0-5) /lpf U Epithel Cells (Auto) (0-5) /lpf Urine Bacteria (Auto) (Negative) COVID-19 Eval Order CovFluRsv at [facility] SARS-CoV-2 (PCR) NEGATIVE (Negative) Influenza Type A (PCR) Negative (Neg) Influenza Type B (PCR) Negative (Neg) RSV (RT-PCR) Negative (Neg) Blood Type Antibody Screen 01/19/21 01/19/21 01/19/21 Range/Units 09:57 09:57 09:57 WBC (4.8-10.8) K/uL RBC (4.2-5.4) M/uL Hgb (12.0-16.0) g/dL Hct (37-47) % MCV (80-100) fL MCH (25-34) pg MCHC (32-36) g/dL RDW Std Deviation (36.4-46.3) fL RDW Coeff of Reg (11.5-14.5) % Plt Count (130-400) K/uL MPV (7.4-10.4) fL Immature Gran % (Auto) % Neut % (Auto) % Lymph % (Auto) % [place] % (Auto) % Eos % (Auto) % Baso % (Auto) % Neut # (Auto) (1.4-6.5) K/uL Lymph # (Auto) (1.2-3.4) K/uL [place] # (Auto) (0.11-0.59) K/uL Eos # (Auto) (0-0.5) K/uL Baso # (Auto) (0-0.2) K/uL Immature Gran # (Auto) (0.00-0.02) K/uL PT 10.7 (9.0-12.0) Seconds INR 1.1 (0.9-1.1) APTT 25.2 (21.0-31.0) Seconds PTT Ratio 1.0 VBG pH 7.30 L (7.36-7.41) VBG pCO2 104 H (38-50) mmHg VBG pO2 35 mmHg VBG HCO3 50 mmol/L VBG O2 Saturation 64.4 % VBG Base Excess 18.8 mEq/L Barometric Pressure 732.1 mm/Hg Sodium 140 (136-145) mmol/L Potassium 4.3 (3.5-5.1) mmol/L Chloride 93 L (98-107) mmol/L Carbon Dioxide 46 H* (21-32) mmol/L Anion Gap 1.0 L (3-11) BUN 22 H (7-18) mg/dl Creatinine 0.59 L (0.6-1.2) mg/dl Est Cr Clr Drug Dosing 70.6 ml/min Est GFR ( Amer) 102.5 Est GFR (Non-Af Amer) 88.4 BUN/Creatinine Ratio 36.6 H (10-20) Glucose 119 H (70-99) mg/dl Calcium 9.6 (8.5-10.1) mg/dl Magnesium 2.2 (1.8-2.4) mg/dl Total Bilirubin 1.1 H (0.2-1) mg/dl AST 13 L (15-37) U/L ALT 17 (12-78) U/L Alkaline Phosphatase 73 (45-117) U/L Troponin I < 0.015 (0-0.045) ng/ml Total Protein 7.8 (6.4-8.2) gm/dl Albumin 3.7 (3.4-5.0) gm/dl Globulin 4.1 H (2.5-4.0) gm/dl Albumin/Globulin Ratio 0.9 (0.9-2) Urine Color Urine Appearance (Clear) Urine pH (4.5-7.5) Ur Specific [place] (1.000-1.030) Urine Protein (Negative) Urine Glucose (UA) (Negative) Urine Ketones (Negative) Urine Blood (Negative) Urine Nitrite (Negative) Urine Bilirubin (Negative) Urine Urobilinogen (Negative) Ur Leukocyte Esterase (Negative) Urine WBC (Auto) (0-5) /hpf Urine RBC (Auto) (0-4) /hpf U Hyaline Cast (Auto) (0-5) /lpf U Epithel Cells (Auto) (0-5) /lpf Urine Bacteria (Auto) (Negative) COVID-19 Eval Order SARS-CoV-2 (PCR) (Negative) Influenza Type A (PCR) (Neg) Influenza Type B (PCR) (Neg) RSV (RT-PCR) (Neg) Blood Type Antibody Screen 01/19/21 01/19/21 Range/Units 12:45 13:55 WBC (4.8-10.8) K/uL RBC (4.2-5.4) M/uL Hgb (12.0-16.0) g/dL Hct (37-47) % MCV (80-100) fL MCH (25-34) pg MCHC (32-36) g/dL RDW Std Deviation (36.4-46.3) fL RDW Coeff of Reg (11.5-14.5) % Plt Count (130-400) K/uL MPV (7.4-10.4) fL Immature Gran % (Auto) % Neut % (Auto) % Lymph % (Auto) % [place] % (Auto) % Eos % (Auto) % Baso % (Auto) % Neut # (Auto) (1.4-6.5) K/uL Lymph # (Auto) (1.2-3.4) K/uL [place] # (Auto) (0.11-0.59) K/uL Eos # (Auto) (0-0.5) K/uL Baso # (Auto) (0-0.2) K/uL Immature Gran # (Auto) (0.00-0.02) K/uL PT (9.0-12.0) Seconds INR (0.9-1.1) APTT (21.0-31.0) Seconds PTT Ratio VBG pH (7.36-7.41) VBG pCO2 (38-50) mmHg VBG pO2 mmHg VBG HCO3 mmol/L VBG O2 Saturation % VBG Base Excess mEq/L Barometric Pressure mm/Hg Sodium (136-145) mmol/L Potassium (3.5-5.1) mmol/L Chloride (98-107) mmol/L Carbon Dioxide (21-32) mmol/L Anion Gap (3-11) BUN (7-18) mg/dl Creatinine (0.6-1.2) mg/dl Est Cr Clr Drug Dosing ml/min Est GFR ( Amer) Est GFR (Non-Af Amer) BUN/Creatinine Ratio (10-20) Glucose (70-99) mg/dl Calcium (8.5-10.1) mg/dl Magnesium (1.8-2.4) mg/dl Total Bilirubin (0.2-1) mg/dl AST (15-37) U/L ALT (12-78) U/L Alkaline Phosphatase (45-117) U/L Troponin I (0-0.045) ng/ml Total Protein (6.4-8.2) gm/dl Albumin (3.4-5.0) gm/dl Globulin (2.5-4.0) gm/dl Albumin/Globulin Ratio (0.9-2) Urine Color Yellow Urine Appearance Clear (Clear) Urine pH 7.5 (4.5-7.5) Ur Specific [place] > 1.045 H (1.000-1.030) Urine Protein Negative (Negative) Urine Glucose (UA) Negative (Negative) Urine Ketones 1+ H (Negative) Urine Blood 1+ H (Negative) Urine Nitrite Negative (Negative) Urine Bilirubin Negative (Negative) Urine Urobilinogen Negative (Negative) Ur Leukocyte Esterase Negative (Negative) Urine WBC (Auto) 1-5 (0-5) /hpf Urine RBC (Auto) 5-10 H (0-4) /hpf U Hyaline Cast (Auto) 1-5 (0-5) /lpf U Epithel Cells (Auto) >30 H (0-5) /lpf Urine Bacteria (Auto) Negative (Negative) COVID-19 Eval Order SARS-CoV-2 (PCR) (Negative) Influenza Type A (PCR) (Neg) Influenza Type B (PCR) (Neg) RSV (RT-PCR) (Neg) Blood Type O Positive Antibody Screen NEGATIVE Administered Medications Albuterol (Albut/Ipratrop 3mg/0.5mg Neb 3 Ml Vial) 3 ml NEB QIDR UCHE Stop: 02/18/21 14:59 Last Admin: 01/19/21 15:08 Dose: Not Given Documented by: [id number] Prednisone (Prednisone 20 Mg Tab) 40 mg PO DAILY UCHE Stop: 02/18/21 14:44 Last Admin: 01/19/21 15:04 Dose: 40 mg Documented by: [id number] Discontinued Medications Albuterol (Albut/Ipratrop 3mg/0.5mg Neb 3 Ml Vial) 3 ml INH NOW STA Stop: 01/19/21 09:43 Last Admin: 01/19/21 09:55 Dose: 3 ml Documented by: [id number] Albuterol (Albut/Ipratrop 3mg/0.5mg Neb 3 Ml Vial) 3 ml NEB NOW STA Stop: 01/19/21 13:36 Last Admin: 01/19/21 13:54 Dose: 3 ml Documented by: [id number] Sodium Chloride (Nss 1000ml) 500 mls @ 999 mls/hr IV .Q31M ONE Stop: 01/19/21 12:56 Last Infusion: 01/19/21 13:56 Dose: 0 mls/hr Documented by: [id number] Admin: 01/19/21 13:11 Dose: 999 mls/hr Documented by: [id number] Pantoprazole Sodium 80 mg/ (Dextrose) 100 mls @ 400 mls/hr IV ONE STA Stop: 01/19/21 13:47 Last Infusion: 01/19/21 14:25 Dose: 0 mls/hr Documented by: [id number] Admin: 01/19/21 13:52 Dose: 400 mls/hr Documented by: [id number] Ioversol (Optiray 320 125ml) 120 ml IV ONCE ONE Stop: 01/19/21 11:26 Last Admin: 01/19/21 11:25 Dose: 120 ml Documented by: [id number] Imaging Data Radiologist's Impression: Chest X-Ray 01/19/21 09:42 XR chest 1V portable CLINICAL HISTORY: Dyspnea COMPARISON STUDY: 10/04/2020 FINDINGS: The cardiac and mediastinal contours remain stable. There are stable basilar opacities, likely representing atelectasis/scarring although an acute inflammatory process would be difficult to exclude with certainty. There is no failure. There are no pleural effusions.[ IMPRESSION: 1. Stable basilar opacity statistically representing atelectasis/scarring 2. No evidence of failure ACT 112: Negative or not required by law. Electronically signed by: Darrian Montanez M.D. 01/19/2021 10:[address] 01/19/21 09:55 CT lumbar spine wo con CT DOSE: 657.23 mGy.cm CLINICAL HISTORY: pain TECHNIQUE: Helical images were acquired in transverse plane. Reformatted sagittal and coronal images were reviewed. A dose lowering technique was utilized adhering to the principles of ALARA. CONTRAST: No contrast was administered COMPARISON STUDY: None. FINDINGS: L1-2 level: There is a small right lateral/foraminal disc protrusion. There is no significant spinal or foraminal stenosis. L2-3 level: There is a mild circumferential disc bulge. There is minimal triangular spinal canal narrowing. There is no significant foraminal stenosis L3-4 level: There is a mild circumferential disc bulge. There is mild spinal stenosis. There is no significant foraminal narrowing L4-5 level: There is a mild circumferential disc bulge. There is minimal triangular spinal canal narrowing. There is facet joint arthropathy. There is no significant foraminal narrowing. L5-S1 level: There is no evidence of significant disc bulge or focal herniation. There is no evidence of spinal or foraminal stenosis. No acute fractures or traumatic subluxations are visualized. There is a partially visualized abdominal aortic aneurysm measuring slightly in excess of 3 cm. There are aortic iliac atherosclerotic changes. IMPRESSION: 1. No acute fractures or traumatic subluxations 2. Partially visualized abdominal aortic aneurysm, likely measuring slightly in excess of 3 cm 3. Multilevel spondylytic changes. Small right lateral/foraminal disc protrusion at the L1-2 level. Mild multilevel spinal stenosis. ACT 112: Negative or not required by law. Electronically signed by: Darrian Montanez M.D. 01/19/2021 10:41 AM Chest CTA 01/19/21 11:10 CT ANGIOGRAM OF THE CHEST CLINICAL HISTORY: Atypical chest pain and shortness of breath PULMONARY EMBOLISM COMPARISON STUDY: Chest CT dated 12/14/2018, chest x-ray dated 01/19/2021 TECHNIQUE: Following the IV administration of 120 mL of Optiray-320, CT angiogram of the thorax was performed from the thoracic inlet to the lung bases utilizing the pulmonary embolus protocol. Images are reviewed in the axial, sagittal, and coronal planes. IV contrast was administered without complication. MIP imaging was performed. A dose lowering technique was utilized adhering to the principles of ALARA. CT DOSE: 325.02 mGy.cm FINDINGS: Images to the upper abdomen reveal cholelithiasis. No pathologically enlarged axillary mediastinal or hilar lymph nodes were visualized. There was no evidence of thoracic aortic dilatation. There are coronary artery calcifications. There were no pulmonary artery filling defects to indicate acute pulmonary embolism. No pleural effusions are visualized. There is no focal pulmonary consolidation. There are bilateral dependent atelectatic changes. There are also lingular atelectatic changes. There are no areas of parenchymal consolidation to indicate acute pneumonia. There is a stable 2.5 mm right upper lobe pulmonary nodule. Since the prior study, the patient has developed a severe T7 compression fracture. There are old left-sided rib fractures IMPRESSION: 1. No evidence of acute pulmonary embolism 2. There are no areas of parenchymal consolidation to indicate pneumonia 3. Cholelithiasis 4. Severe T7 compression fracture. This was not present on the prior December 2018 study ACT 112: Negative or not required by law. Electronically signed by: Darrian Montanez M.D. 01/19/2021 11:39 AM Discharge Plan Visit Data Chief Complaint: Shortness of Breath/Dyspnea ED Provider: Nate Ibanez Discharge Problem: SOB (shortness of breath), Hypoxia, Heme positive stool, Rectal bleeding, Lower back pain Patient Disposition: Admitted As Inpatient Condition: Fair Discharge Instructions Interventions: ED Discharge Assessment Last Done: 01/19/21 16:47 Discharge Problem: Lower back pain Qualifiers: Chronicity: acute Back pain laterality: midline Sciatica presence: without sciatica Qualified Code(s): M54.5 - Low back pain
[2021-01-19 10:08] LABS: Basophils # (auto) 0.01 K/uL (0-0.2); Basophils % (auto) 0.1 %; Eosinophils # (auto) 0.07 K/uL (0-0.5); Eosinophils % (auto) 0.9 %; Hematocrit (blood only) 42.1 % (37-47); Hemoglobin 12.4 g/dL (12.0-16.0); Immature Granulocytes # (auto) 0.02 K/uL (0.00-0.02); Immature Granulocytes % (auto) 0.3 %; Lymphocytes # (auto) 0.81 K/uL (1.2-3.4); Lymphocytes % (auto) 10.7 %; Mean Corpuscular Hemoglobin 27.4 pg (25-34); Mean Corpuscular Hgb Conc 29.5 g/dL (32-36); Mean Corpuscular Volume 92.9 fL (80-100); Monocytes # (auto) 0.54 K/uL (0.11-0.59); Monocytes % (auto) 7.1 %; Neutrophils # (auto) 6.12 K/uL (1.4-6.5); Neutrophils % (auto) 80.9 %; Platelet Count 173 K/uL (130-400); RDW Coefficient of Variation 13.5 % (11.5-14.5); RDW Standard Deviation 45.9 fL (36.4-46.3); Red Blood Count 4.53 M/uL (4.2-5.4); White Blood Count 7.57 K/uL (4.8-10.8)
--- NOTE | 2021-01-19 10:10 | XRay Report ---
XR chest 1V portable CLINICAL HISTORY: Dyspnea COMPARISON STUDY: 10/04/2020 FINDINGS: The cardiac and mediastinal contours remain stable. There are stable basilar opacities, lik giselle representing atelectasis/scarring although an acute inflammatory process would be difficult to ex clude with certainty. There is no failure. There are no pleural effusions.[ IMPRESSION: 1. Stable basilar opacity statistically representing atelectasis/scarring 2. No evidence of failure ACT 112: Negative or not required by law. Electronically signed by: Darrian Montanez M.D. 01/19/2021 10:09 AM
[2021-01-19 10:14] LABS: Base Excess VBG 18.8 mEq/L; Oxygen Saturation VBG 64.4 %; pH VBG 7.3 (7.36-7.41)
[2021-01-19 10:20] LABS: INR 1.1 (0.9-1.1); Partial Thromboplastin Time 25.2 Seconds (21.0-31.0); Prothrombin Time 10.7 Seconds (9.0-12.0)
[2021-01-19 10:32] LABS: Alanine Aminotransferase 17 U/L (12-78); Albumin Globulin Ratio 0.9 (0.9-2); Albumin Level 3.7 gm/dl (3.4-5.0); Alkaline Phosphatase 73 U/L (45-117); Aspartate Aminotransferase 13 U/L (15-37); BUN Creatinine Ratio 36.6 (10-20); Bilirubin,Total 1.1 mg/dl (0.2-1); Blood Urea Nitrogen 22 mg/dl (7-18); Calcium 9.6 mg/dl (8.5-10.1); Chloride 93 mmol/L (98-107); Creatinine Clr Calc Pharmacy 70.6 ml/min; Est GFR (African American) 102.5; Est GFR (Non-African American) 88.4; Globulin 4.1 gm/dl (2.5-4.0); Glucose 119 mg/dl (70-99); Magnesium 2.2 mg/dl (1.8-2.4); Potassium 4.3 mmol/L (3.5-5.1); Sodium 140 mmol/L (136-145); Total Protein 7.8 gm/dl (6.4-8.2); Troponin I < 0.015 ng/ml (0-0.045)
--- NOTE | 2021-01-19 10:42 | CT Scan Report ---
CT lumbar spine wo con CT DOSE: 657.23 mGy.cm CLINICAL HISTORY: pain TECHNIQUE: Helical images were acquired in transverse plane. Reformatted sagittal and coronal images were reviewed. A dose lowering technique was utilized adhering to the principles of ALARA. CONTRAST: No contrast was administered COMPARISON STUDY: None. FINDINGS: L1-2 level: There is a small right lateral/foraminal disc protrusion. There is no significant spinal or foraminal stenosis. L2-3 level: There is a mild circumferential disc bulge. There is minimal triangular spinal canal narr owing. There is no significant foraminal stenosis L3-4 level: There is a mild circumferential disc bulge. There is mild spinal stenosis. There is no si gnificant foraminal narrowing L4-5 level: There is a mild circumferential disc bulge. There is minimal triangular spinal canal narr owing. There is facet joint arthropathy. There is no significant foraminal narrowing. L5-S1 level: There is no evidence of significant disc bulge or focal herniation. There is no evidence of spinal or foraminal stenosis. No acute fractures or traumatic subluxations are visualized. There is a partially visualized abdominal aortic aneurysm measuring slightly in excess of 3 cm. There are aortic iliac atherosclerotic changes. IMPRESSION: 1. No acute fractures or traumatic subluxations 2. Partially visualized abdominal aortic aneurysm, likely measuring slightly in excess of 3 cm 3. Multilevel spondylytic changes. Small right lateral/foraminal disc protrusion at the L1-2 level. M ild multilevel spinal stenosis. ACT 112: Negative or not required by law. Electronically signed by: Darrain Montanez M.D. 01/19/2021 10:41 AM
[2021-01-19 10:43] LABS: Carbon Dioxide 46 mmol/L (21-32)
[2021-01-19 10:56] LABS: Influenza A virus by PCR Negative (Neg); Influenza B virus by PCR Negative (Neg); RSV by PCR Negative (Neg); SARS CoV2 RNA(COVID-19) InHosp NEGATIVE (Negative)
[2021-01-19] MEDS ORDERED: OPTIRAY 320 125ml IV ONE (11:25)
--- NOTE | 2021-01-19 11:40 | CT Scan Report ---
CT ANGIOGRAM OF THE CHEST CLINICAL HISTORY: Atypical chest pain and shortness of breath PULMONARY EMBOLISM COMPARISON STUDY: Chest CT dated 12/14/2018, chest x-ray dated 01/19/2021 TECHNIQUE: Following the IV administration of 120 mL of Optiray-320, CT angiogram of the thorax was p erformed from the thoracic inlet to the lung bases utilizing the pulmonary embolus protocol. Images a re reviewed in the axial, sagittal, and coronal planes. IV contrast was administered without complica tion. MIP imaging was performed. A dose lowering technique was utilized adhering to the principles o f ALARA. CT DOSE: 325.02 mGy.cm FINDINGS: Images to the upper abdomen reveal cholelithiasis. No pathologically enlarged axillary mediastinal or hilar lymph nodes were visualized. There was no evidence of thoracic aortic dilatation. There are coronary artery calcifications. There were no pulmonary artery filling defects to indicate acute pulmonary embolism. No pleural effusions are visualized. There is no focal pulmonary consolidation. There are bilateral dependent atelectatic changes. There a re also lingular atelectatic changes. There are no areas of parenchymal consolidation to indicate acu te pneumonia. There is a stable 2.5 mm right upper lobe pulmonary nodule. Since the prior study, the patient has developed a severe T7 compression fracture. There are old left-sided rib fractures IMPRESSION: 1. No evidence of acute pulmonary embolism 2. There are no areas of parenchymal consolidation to indicate pneumonia 3. Cholelithiasis 4. Severe T7 compression fracture. This was not present on the prior December 2018 study ACT 112: Negative or not required by law. Electronically signed by: Darrian Montanez M.D. 01/19/2021 11:39 AM
[2021-01-19] MEDS ORDERED: SODIUM CHLORIDE 0.9% 1000ML 500 ML IV ONE (12:26)
[2021-01-19] MEDS ORDERED: PANTOprazole 80 MG in DEXTROSE 5% 100 ML IV STA (13:33)
[2021-01-19] MEDS ORDERED: ALBUT/IPRATROP 3MG/0.5MG NEB 3 ML VIAL NEB STA (13:35)
[2021-01-19 13:41] LABS: Appearance Urine Clear (Clear); Bacteria Urine Automated Negative (Negative); Bilirubin Urine Negative (Negative); Blood Urine 1+ (Negative); Color Urine Yellow; Epithelial Cell Urine Auto >30 /lpf (0-5); Glucose Urine UA Negative (Negative); Ketones Urine 1+ (Negative); Leukocyte Esterase Urine Negative (Negative); Nitrite Urine Negative (Negative); Protein Urine Negative (Negative); Specific Gravity Urine > 1.045 (1.000-1.030); Urobilinogen Urine Negative (Negative); pH Urine 7.5 (4.5-7.5)
--- NOTE | 2021-01-19 14:10 | History & Physical Report ---
Date of Service January 19, 2021 Assessment & Plan (1) Chronic respiratory failure with hypoxia and hypercapnia: (2) Respiratory acidosis: (3) COPD exacerbation: This is a 75-year-old female who has significant past medical history of chronic hypoxic and hypercapnic respiratory failure secondary to COPD and obesity hypoventilation syndrome, chronic diastolic CHF, chronic sinus tachycardia, HTN, HLD, fibromyalgia, GERD, ambulatory dysfunction who presents to ED secondary to worsening shortness of breath, weakness and blood in stool x1 day. Pt with increased SOB, cough production, poor air exchange Likely COPD exacerbation. She also ran out of oxygen at home and is not taking regular symbicort. She also states she ran out of food for 2 days. Admit to med tele Prednisone 40mg daily x 5 days pulmonary toilet with duonebs, incentive spirometry and flutter valve obtain procalcitonin, repeat vbg in a.m. pt is a chronic O2 retainer with chronic respiratory acidosis no antibiotic at this time She is mentating clearly, although having difficulty managing care at home (4) Chronic diastolic heart failure: (5) Obesity hypoventilation syndrome: pt on dry side on exam will give 1L of gentle IVF daily weights, strict I and O continue metoprolol and losartan (6) BRBPR (bright red blood per rectum): pt c/o 1 episode of BRBPR, surrounding a brown BM Per ED + heme positive, hgb stable Hemoccult all stools, monitor h/h if stool continues to be positive, consult GI PPI orally (7) GERD (gastroesophageal reflux disease): add PPI given concern for BRBPR (8) Hypertension: Bp controlled continue losartan, metoprolol (9) Dyslipidemia: continue statin (10) DVT prophylaxis: SQ Heparin Dispo: med tele, case management consulted, may need SNF as having difficulty managing at home FULL CODE PCP: Red Pt was seen and examined in collaboration with Dr. Vasquez, please see addendum History of Present Illness Chief Complaint: Worsening SOB, weak and blood in stool x 1 day. Primary Care Provider: Russ Moon MD This is a 75-year-old female who has significant past medical history of chronic hypoxic and hypercapnic respiratory failure secondary to COPD and obesity hypoventilation syndrome, chronic diastolic CHF, chronic sinus tachycardia, HTN, HLD, fibromyalgia, GERD, ambulatory dysfunction who presents to ED secondary to worsening shortness of breath, weakness and blood in stool x1 day. Yesterday she had a dark brown BM and blood was bright red. She has hx of similar blood in stool 1 year or so ago. She admits to hx of colonoscopy. Does not feel it was abnormal. She does not take a blood thinner but does take ASA 81mg. She was having increasing SOB but feels this has improved. She also had abdominal pain. It felt full and shaky. She also had BARONE. He does see pulmonology but has not in a long time. She is only taking inhalers as needed and has not used them regularly. She has been using oxygen at home. She uses 2- 3L of O2 at home. She denies chest pain, tightness, n/v/d, f/c/s, dysuria, increased urg/freq, melena. She has chronic wet cough, more than usual. Unable to bring up. She was without oxygen all night last night. She thought it ran out. She also has been without food for 2 days. She lives alone. She has family nearby but no one helps her. In ED patient remained hemodynamically stable. She was saturating normally on her usual 2 L of oxygen. With ambulation she did desaturate slightly to 88%. CBC generally unremarkable. VBG pH 7.30, CO2 104, chemistry revealed CO2 46, BUN 22, creatinine 0.59, glucose 119. She was heme + of fecal occult, but hgb normal at 12.4. She received albuterol nebulizer treatment, IV PPI. Allergies Allergy/AdvReac Type Severity Reaction Status Date / Time duloxetine [From Cymbalta] Allergy Mild Rash Verified 10/03/20 12:55 naproxen AdvReac Mild GI SYMPTOMS Verified 10/03/20 12:55 Home Medications Medication Instructions Recorded Confirmed Type albuterol sulfate [Ventolin HFA] 2 puff INHALATION Q4H PRN 12/14/18 01/19/21 History atorvastatin 40 mg PO QAM 12/14/18 01/19/21 History losartan 25 mg PO QAM 12/14/18 01/19/21 History magnesium oxide 400 mg PO QAM 02/13/19 01/19/21 History metoprolol succinate 50 mg PO QAM 04/22/19 01/19/21 History ipratropium 0.5 mg-albuterol 3 mg 3 ml INHALATION QID PRN #360 ml 09/10/19 01/19/21 Rx (2.5 mg base)/3 mL nebulization soln Oxygen Home #1 ea 11/05/19 01/19/21 Rx diclofenac sodium 1 % topical gel 1 ea TOP UD 01/22/20 01/19/21 History tramadol 50 mg tablet 50 mg PO Q6H PRN 01/22/20 01/19/21 History budesonide-formoterol HFA 160 2 puffs INH BID #10.2 gm 03/05/20 01/19/21 Rx mcg-4.5 mcg/actuation aerosol inhaler roflumilast 250 mcg tablet 250 mcg PO QAM #90 tab 06/30/20 01/19/21 Rx aspirin [Aspir-81] 81 mg PO DAILY 01/19/21 01/19/21 History docusate sodium 100 mg PO BID 01/19/21 01/19/21 History Past Med/Surg History Medical History (Updated 01/19/21 @ 18:03 by Nate Ibanez MD) BCC (basal cell carcinoma of skin) on left side of face---"s/p MOHS surgery" Chronic diastolic heart failure Chronic respiratory failure with hypoxia, on home O2 therapy OXYGEN 3L/MIN VIA NC COPD (chronic obstructive pulmonary disease) inhaler daily/prn and nebulizer prn Degenerative disc disease Dyslipidemia Fibromyalgia GERD (gastroesophageal reflux disease) Hypertension On home oxygen therapy 3L N/C at all times Osteoporosis Sinus tachycardia SOB (shortness of breath) on exertion Tremor of both hands Surgical History History of bilateral cataract extraction History of carpal tunnel surgery of right wrist History of colonoscopy with polypectomy History of esophagogastroduodenoscopy (EGD) History of left breast biopsy benign History of mandibular surgery jaw fx History of repair of left rotator cuff History of repair of right rotator cuff History of tooth extraction S/P Mohs surgery for basal cell carcinoma Status post appendectomy Status post excision of lipoma removed off neck x2 Status post hysterectomy Status post repair of ventral hernia Family History Grandfather (Maternal) Family hx of colon cancer Father FH: kidney cancer Family/Other Family history of diabetes mellitus nephew Other Kidney disease Lung disease No family history of adverse response to anesthesia Social History Smoking Status: Former smoker Tobacco Type: Cigarettes Cigarettes Per Day: unsure when she quit; Smoking End Date: 2003; Second Hand Exposure: No; Do You Dip or Chew Tobacco: No; Tobacco Cessation Education Requested by Patient: No Hx Alcohol Use: No Hx Substance Use: No Preferred Language: Khmer Communication Ability: Effective 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 Beliefs That Will Affect Care: None marital status: / Current Living Situation: Alone current occupational status: retired How many Children do You have: 3 Other Information That Helps Us Care for You: Yes Feels Safe at Home: Yes Safety Concerns: Feels Safe At This Time Assistive Devices: Cane, Denture - Upper and Glasses Review of Systems Review of Systems: All systems reviewed & are unremarkable except as noted in HPI & below Physical Exam Physical Exam: .Constitutional: Morbidly obese, female, chronically ill, on 2 L of O2, WD/WN, vitals as above, NAD, sitting up in bed, pleasant, mild tachypnea with conversation Head: Normocephalic, Atraumatic Eyes: PERRL, conjunctivae normal, anicteric sclerae ENMT: external ear and nose normal, oropharynx normal Neck: trachea midline, no thyromegaly normal visual inspection Respiratory: Increased respiratory effort, decreased breath sounds throughout, distant, prolonged expiratory phase with wheeze, no rales or rhonchi, 2 L of O2 via NC, no accessory muscle use Cardiovascular: RRR, no murmur, no edema Vessels: no JVD or carotid bruit Chest: normal inspection of chest Abdomen: Obese abdomen, normal bowel sounds, soft, nontender, no hepatosplenomegaly Musculoskeletal: no cyanosis or clubbing, active range of motion x4 Skin: no rashes, warm and dry mild turgor Neurologic: PERRL, EOMI, accommodation nl, no face palsy, no dysarthria CN's II-XI intact bilaterally and moves all extremities Psychiatric: A+Ox3, euthymic affect : deferred Results & Data Results & Data ([facility]) Vital Signs (Past 12 Hours) Vital Signs Temp Pulse Pulse Resp BP BP Pulse Ox 01/19/21 13:54 91 H 24 96 01/19/21 13:13 110 H 26 H 88 L 01/19/21 12:27 90 22 145/75 H 84 L 01/19/21 11:00 100 H 26 H 184/82 H 97 01/19/21 10:55 98 H 24 179/83 H 96 01/19/21 10:33 97 H 26 H 98 01/19/21 10:01 100 01/19/21 10:00 97 H 24 165/92 H 100 01/19/21 09:55 103 H 28 H 100 01/19/21 09:38 100 01/19/21 09:32 175/71 H 01/19/21 09:30 100 H 26 H 175/77 H 100 01/19/21 09:21 36.9 C 18 166/88 H 100 Diagnostic Findings Chest X-Ray 01/19/21 09:42 XR chest 1V portable CLINICAL HISTORY: Dyspnea COMPARISON STUDY: 10/04/2020 FINDINGS: The cardiac and mediastinal contours remain stable. There are stable basilar opacities, likely representing atelectasis/scarring although an acute inflammatory process would be difficult to exclude with certainty. There is no failure. There are no pleural effusions.[ IMPRESSION: 1. Stable basilar opacity statistically representing atelectasis/scarring 2. No evidence of failure ACT 112: Negative or not required by law. Electronically signed by: Darrian Montanez M.D. 01/19/2021 10:[address] 01/19/21 09:55 CT lumbar spine wo con CT DOSE: 657.23 mGy.cm CLINICAL HISTORY: pain TECHNIQUE: Helical images were acquired in transverse plane. Reformatted sagittal and coronal images were reviewed. A dose lowering technique was utilized adhering to the principles of ALARA. CONTRAST: No contrast was administered COMPARISON STUDY: None. FINDINGS: L1-2 level: There is a small right lateral/foraminal disc protrusion. There is no significant spinal or foraminal stenosis. L2-3 level: There is a mild circumferential disc bulge. There is minimal triangular spinal canal narrowing. There is no significant foraminal stenosis L3-4 level: There is a mild circumferential disc bulge. There is mild spinal stenosis. There is no significant foraminal narrowing L4-5 level: There is a mild circumferential disc bulge. There is minimal triangular spinal canal narrowing. There is facet joint arthropathy. There is no significant foraminal narrowing. L5-S1 level: There is no evidence of significant disc bulge or focal herniation. There is no evidence of spinal or foraminal stenosis. No acute fractures or traumatic subluxations are visualized. There is a partially visualized abdominal aortic aneurysm measuring slightly in excess of 3 cm. There are aortic iliac atherosclerotic changes. IMPRESSION: 1. No acute fractures or traumatic subluxations 2. Partially visualized abdominal aortic aneurysm, likely measuring slightly in excess of 3 cm 3. Multilevel spondylytic changes. Small right lateral/foraminal disc protrusion at the L1-2 level. Mild multilevel spinal stenosis. ACT 112: Negative or not required by law. Electronically signed by: Darrian Montanez M.D. 01/19/2021 10:41 AM Chest CTA 01/19/21 11:10 CT ANGIOGRAM OF THE CHEST CLINICAL HISTORY: Atypical chest pain and shortness of breath PULMONARY EMBOLISM COMPARISON STUDY: Chest CT dated 12/14/2018, chest x-ray dated 01/19/2021 TECHNIQUE: Following the IV administration of 120 mL of Optiray-320, CT angiogram of the thorax was performed from the thoracic inlet to the lung bases utilizing the pulmonary embolus protocol. Images are reviewed in the axial, sagittal, and coronal planes. IV contrast was administered without complication. MIP imaging was performed. A dose lowering technique was utilized adhering to the principles of ALARA. CT DOSE: 325.02 mGy.cm FINDINGS: Images to the upper abdomen reveal cholelithiasis. No pathologically enlarged axillary mediastinal or hilar lymph nodes were visualized. There was no evidence of thoracic aortic dilatation. There are coronary artery calcifications. There were no pulmonary artery filling defects to indicate acute pulmonary embolism. No pleural effusions are visualized. There is no focal pulmonary consolidation. There are bilateral dependent atelectatic changes. There are also lingular atelectatic changes. There are no areas of parenchymal consolidation to indicate acute pneumonia. There is a stable 2.5 mm right upper lobe pulmonary nodule. Since the prior study, the tri stratton has developed a severe T7 compression fracture. There are old left-sided rib fractures IMPRESSION: 1. No evidence of acute pulmonary embolism 2. There are no areas of parenchymal consolidation to indicate pneumonia 3. Cholelithiasis 4. Severe T7 compression fracture. This was not present on the prior December 2018 study ACT 112: Negative or not required by law. Electronically signed by: Darrian Montanez M.D. 01/19/2021 11:39 AM Medications Administered Discontinued Medications Albuterol (Albut/Ipratrop 3mg/0.5mg Neb 3 Ml Vial) 3 ml INH NOW STA Stop: 01/19/21 09:43 Last Admin: 01/19/21 09:55 Dose: 3 ml Documented by: [id number] Albuterol (Albut/Ipratrop 3mg/0.5mg Neb 3 Ml Vial) 3 ml NEB NOW STA Stop: 01/19/21 13:36 Last Admin: 01/19/21 13:54 Dose: 3 ml Documented by: [id number] Sodium Chloride (Nss 1000ml) 500 mls @ 999 mls/hr IV .Q31M ONE Stop: 01/19/21 12:56 Last Infusion: 01/19/21 13:56 Dose: 0 mls/hr Documented by: [id number] Admin: 01/19/21 13:11 Dose: 999 mls/hr Documented by: [id number] Pantoprazole Sodium 80 mg/ (Dextrose) 100 mls @ 400 mls/hr IV ONE STA Stop: 01/19/21 13:47 Last Admin: 01/19/21 13:52 Dose: 400 mls/hr Documented by: [id number] Ioversol (Optiray 320 125ml) 120 ml IV ONCE ONE Stop: 01/19/21 11:26 Last Admin: 01/19/21 11:25 Dose: 120 ml Documented by: [id number] ECG Rate (beats per minute): 97 Rhythm: normal sinus COVID-19 Results Results COVID-19 Adm Lab Results: RBC 4.53 M/uL (4.2-5.4) 01/19/21 WBC 7.57 K/uL (4.8-10.8) 01/19/21 Hgb 12.4 g/dL (12.0-16.0) 01/19/21 Hct 42.1 % (37-47) 01/19/21 Plt Count 173 K/uL (130-400) 01/19/21 Neutrophils (%) (Auto) 80.9 % 01/19/21 Lymphocytes (%) (Auto) 10.7 % 01/19/21 Monocytes # (Auto) 0.54 K/uL (0.11-0.59) 01/19/21 Eosinophils # (Auto) 0.07 K/uL (0-0.5) 01/19/21 Immature Granulocyte % (Auto) 0.3 % 01/19/21 Neutrophils # (Auto) 6.12 K/uL (1.4-6.5) 01/19/21 Lymphocytes # (Auto) 0.81 K/uL (1.2-3.4) L 01/19/21 Monocytes # (Auto) 0.54 K/uL (0.11-0.59) 01/19/21 Eosinophils # (Auto) 0.07 K/uL (0-0.5) 01/19/21 Basophils # (Auto) 0.01 K/uL (0-0.2) 01/19/21 Immature Granulocyte # (Auto) 0.02 K/uL (0.00-0.02) 01/19/21 Na 140 mmol/L (136-145) 01/19/21 K 4.3 mmol/L (3.5-5.1) 01/19/21 Cl 93 mmol/L (98-107) L 01/19/21 CO2 46 mmol/L (21-32) H* 01/19/21 Anion Gap 1.0 (3-11) L 01/19/21 BUN 22 mg/dl (7-18) H 01/19/21 Creatinine 0.59 mg/dl (0.6-1.2) L 01/19/21 BUN/Creatinine Ratio 36.6 (10-20) H 01/19/21 Glucose Level 119 mg/dl (70-99) H 01/19/21 Ca 9.6 mg/dl (8.5-10.1) 01/19/21 Total Bilirubin 1.1 mg/dl (0.2-1) H 01/19/21 AST/SGOT 13 U/L (15-37) L 01/19/21 ALT/SGPT 17 U/L (12-78) 01/19/21 Alkaline Phosphatase 73 U/L (45-117) 01/19/21 Total Protein 7.8 gm/dl (6.4-8.2) 01/19/21 Albumin 3.7 gm/dl (3.4-5.0) 01/19/21 Globulin 4.1 gm/dl (2.5-4.0) H 01/19/21 Albumin/Globulin Ratio 0.9 (0.9-2) 01/19/21 Troponin I < 0.015 ng/ml (0-0.045) 01/19/21 PTT 25.2 Seconds (21.0-31.0) 01/19/21 INR 1.1 (0.9-1.1) 01/19/21 COVID-19 PCR NEGATIVE (Negative) 01/19/21 Influenza Virus Type A (PCR) Negative (Neg) 01/19/21 Influenza Virus Type B (PCR) Negative (Neg) 01/19/21 Chest X-Ray 01/19/21 Code Status & VTE Plan VTE Prophylaxis Plan VTE Prophylaxis will be ordered: Yes Supervising Physician Co-Signing Physician Notes Patient is a 75-year-old female with history of chronic respiratory failure secondary to COPD, chronic oxygen dependency, diastolic heart failure and other medical problems presents with worsening shortness of breath associated with generalized weakness and one episode of bloody bowel movement. She admits to having chronic cough which is slightly worse, using inhalers more frequently lately. Please review HPI for complete details of presentation. On exam patient is moderately built and nourished, no apparent distress, normocephalic atraumatic, lungs decreased breath sounds, expiratory wheezes, S1-S2, no murmur, abdomen soft, nontender, normal bowel sounds, alert, awake, oriented, grossly normal focal neurologic deficits. Patient is admitted for management of acute COPD exacerbation. Agree with duo nebs, pulmonary hygiene, prednisone. Will check fecal occult and monitor H&H. Consider GI eval if needed. PT OT consulted. I personally reviewed the record. Patient is interviewed and examined at bedside. Patient's care is coordinated with Karen Grover PA-C. Please refer to the documentation above for details of patient's presentation and for discussion of other issues. (1) GERD (gastroesophageal reflux disease) Esophagitis presence: esophagitis presence not specified Qualified Code(s): K21.9 - Gastro-esophageal reflux disease without esophagitis (2) Hypertension Hypertension type: unspecified Qualified Code(s): I10 - Essential (primary) hypertension
--- NOTE | 2021-01-19 14:27 | Electrocardiogram Report ---
Test Reason : Blood Pressure : / mmHG Vent. Rate : 097 BPM Atrial Rate : 097 BPM P-R Int : 194 ms QRS Dur : 086 ms QT Int : 338 ms P-R-T Axes : 062 -01 065 degrees QTc Int : 429 ms Normal sinus rhythm Possible Left atrial enlargement Borderline ECG When compared with ECG of 03-OCT-2020 10:55, No significant change was found Confirmed by Uday Hudson ([id number]) on 01/19/2021 2:26:52 PM Referred By: REFERRED SELF Confirmed By:Uday Hudson
[2021-01-19] MEDS ORDERED: BUDESONIDE/FORMOTEROL FUMARATE 160/4.5 60 PUFFS/INHALER INH SCH (14:45)
[2021-01-19] MEDS: predniSONE 20 MG TAB PO SCH (15:04)
[2021-01-19] MEDS: ALBUT/IPRATROP 3MG/0.5MG NEB 3 ML VIAL NEB SCH ×2 (15:08→19:23)
[2021-01-19] MEDS ORDERED: SODIUM CHLORIDE 0.9% 1000ML 1,000 ML IV SCH (15:45)
[2021-01-19] MEDS ORDERED: ONDANSETRON INJ 2 MG/ML 2 ML VIAL IV PRN (17:25)
[2021-01-19] MEDS ORDERED: POLYETHYLENE (MIRALAX) 17 GM PACK PO PRN (17:25)
[2021-01-19] MEDS ORDERED: ALBUTEROL HFA 8 GM INHALER INH PRN (17:25)
[2021-01-19] MEDS ORDERED: ACETAMINOPHEN 325 MG TAB PO PRN (17:25)
[2021-01-19] MEDS ORDERED: MAGNESIUM HYDROXIDE SUSP 30 ML UDC PO PRN (17:25)
[2021-01-19] MEDS ORDERED: ALUMINUM/MAGNESIUM SUSP 30 ML UDC PO PRN (17:25)
[2021-01-19] MEDS: DOCUSATE SODIUM 100 MG CAP PO SCH (20:36)
[2021-01-19] MEDS: traMADol HCL 50 MG TABLET PO PRN (20:38)
[2021-01-20 07:16] LABS: Basophils # (auto) 0.01 K/uL (0-0.2); Basophils % (auto) 0.2 %; Eosinophils # (auto) 0.06 K/uL (0-0.5); Eosinophils % (auto) 0.9 %; Hemoglobin 10.2 g/dL (12.0-16.0); Immature Granulocytes # (auto) 0.01 K/uL (0.00-0.02); Immature Granulocytes % (auto) 0.2 %; Lymphocytes # (auto) 1.01 K/uL (1.2-3.4); Lymphocytes % (auto) 15.2 %; Mean Corpuscular Hemoglobin 27.3 pg (25-34); Mean Corpuscular Volume 90.9 fL (80-100); Mean Platelet Volume 10.9 fL (7.4-10.4); Monocytes % (auto) 10.5 %; Neutrophils # (auto) 4.86 K/uL (1.4-6.5); Platelet Count 169 K/uL (130-400); RDW Coefficient of Variation 13.5 % (11.5-14.5); RDW Standard Deviation 44.4 fL (36.4-46.3); Red Blood Count 3.74 M/uL (4.2-5.4); White Blood Count 6.65 K/uL (4.8-10.8)
[2021-01-20] MEDS: ALBUT/IPRATROP 3MG/0.5MG NEB 3 ML VIAL NEB SCH ×4 (07:23→19:16)
[2021-01-20 07:28] LABS: HCO3 VBG 46 mmol/L; Oxygen Saturation VBG < 60.0 %; PCO2 VBG 91 mmHg (38-50); PO2 VBG 28 mmHg; pH VBG 7.32 (7.36-7.41)
[2021-01-20 07:49] LABS: BUN Creatinine Ratio 45.2 (10-20); Calcium 8.6 mg/dl (8.5-10.1); Creatinine Clr Calc Pharmacy 82.3 ml/min; Est GFR (African American) 108.2; Est GFR (Non-African American) 93.4; Magnesium 2.1 mg/dl (1.8-2.4); Potassium 3.5 mmol/L (3.5-5.1)
[2021-01-20] MEDS ORDERED: PNEUMOCOCCAL Polysaccharide Vaccine 25mcg/0.5mL vial/Syr IM ONE (08:00)
[2021-01-20] MEDS: PANTOprazole 40 MG TAB PO SCH (08:32)
[2021-01-20] MEDS: ASPIRIN 81 MG ECTAB PO SCH (08:32)
[2021-01-20] MEDS: ATORVASTATIN 40 MG TAB PO SCH (08:33)
[2021-01-20] MEDS: MAGNESIUM OXIDE 400 MG TAB PO SCH (08:33)
[2021-01-20] MEDS: LOSARTAN POTASSIUM 25 MG TAB PO SCH (08:34)
[2021-01-20] MEDS: ROFLUMILAST 500 MCG TAB PO SCH (08:34)
[2021-01-20] MEDS: METOPROLOL SUCC 50MG EXT REL TAB PO SCH (08:38)
[2021-01-20] MEDS: DOCUSATE SODIUM 100 MG CAP PO SCH ×2 (08:40→20:34)
[2021-01-20] MEDS ORDERED: POLYETHYLENE (MIRALAX) 17 GM PACK PO PRN (12:35)
--- NOTE | 2021-01-20 12:35 | Gastrointestinal Consultation ---
Date of Consultation January 20, 2021 Assessment & Plan (1) Rectal bleeding: Pt is a 75 y/o female admitted w acute on chronic respiratory distress, hx of COPD; seen for rectal bleeding, FOBT +. She denies feeling constipated or straining, had brown stool w surrounding red blood. Blood ct dropped since yesterday but it appears to be at her baseline. Hx of hemorrhoids seen on last colonoscopy. She refused rectal exam today but suspect likely hemorrhoidal bleeding. - Monitor blood ct and transfuse prn - Consider Hydrocortisone cream [place] prn hemorrhoidal bleeding - Avoid constipation; start bowel bowel such as Miralax 17g daily prn constipation - Defer repeat endoscopic eval at this time - GI sign off Supervising Physician Co-Signing Physician Notes I have discussed the management with GENEVA Gibbons. The patient has a normal abdominal exam Slight drop in hgb but not significant. Recent colonoscopy within the last year with hemorrhoids. Agree with further plan of care as per Erum's assessment and plan. History of Present Illness Reason for Consultation: Rectal bleeding Requesting Physician: Dr. Tip Vasquez Attending Physician: Dr. Sheba Hannah History of Present Illness Pt is a 75 y/o female w hx of COPD admitted w increasing SOB and BARONE. GI was consulted for rectal bleeding. Pt reports she noticed BRBPR with BMs in the last few days. Stools are brown but she did see red blood surrounding stools. FOBT was positive. She denies hard stools or feeling constipated. She denies any fever, chills, abd pain, n/v symptoms. Denies rectal pain, itching or burning. Hgb down from 12 -> 10 today however noted baseline Hgb was around 9. BUN slightly up at 19. She had her last colonoscopy in 2019 - adenomatous polyps and hemorrhoids noted. She denies family hx of colorectal ca or IBD. Allergies Allergy/AdvReac Type Severity Reaction Status Date / Time duloxetine [From Cymbalta] Allergy Mild Rash Verified 10/03/20 12:55 naproxen AdvReac Mild GI SYMPTOMS Verified 10/03/20 12:55 Home Medications Medication Instructions Recorded Confirmed Type albuterol sulfate [Ventolin HFA] 2 puff INHALATION Q4H PRN 12/14/18 01/19/21 History atorvastatin 40 mg PO QAM 12/14/18 01/19/21 History losartan 25 mg PO QAM 12/14/18 01/19/21 History magnesium oxide 400 mg PO QAM 02/13/19 01/19/21 History metoprolol succinate 50 mg PO QAM 04/22/19 01/19/21 History ipratropium 0.5 mg-albuterol 3 mg 3 ml INHALATION QID PRN #360 ml 09/10/19 0 01/19/21 Rx (2.5 mg base)/3 mL nebulization soln Oxygen Home #1 ea 11/05/19 01/19/21 Rx diclofenac sodium 1 % topical gel 1 ea TOP UD 01/22/20 01/19/21 History tramadol 50 mg tablet 50 mg PO Q6H PRN 01/22/20 01/19/21 History budesonide-formoterol HFA 160 2 puffs INH BID #10.2 gm 03/05/20 01/19/21 Rx mcg-4.5 mcg/actuation aerosol inhaler roflumilast 250 mcg tablet 250 mcg PO QAM #90 tab 06/30/20 01/19/21 Rx aspirin [Aspir-81] 81 mg PO DAILY 01/19/21 01/19/21 History docusate sodium 100 mg PO BID 01/19/21 01/19/21 History Patient History Medical History BCC (basal cell carcinoma of skin) on left side of face---"s/p MOHS surgery" Chronic diastolic heart failure Chronic respiratory failure with hypoxia, on home O2 therapy OXYGEN 3L/MIN VIA [place] COPD (chronic obstructive pulmonary disease) inhaler daily/prn and nebulizer prn Degenerative disc disease Dyslipidemia Fibromyalgia GERD (gastroesophageal reflux disease) Hypertension On home oxygen therapy 3L N/C at all times Osteoporosis Sinus tachycardia SOB (shortness of breath) on exertion Tremor of both hands Surgical History History of bilateral cataract extraction History of carpal tunnel surgery of right wrist History of colonoscopy with polypectomy History of esophagogastroduodenoscopy (EGD) History of left breast biopsy benign History of mandibular surgery jaw fx History of repair of left rotator cuff History of repair of right rotator cuff History of tooth extraction S/P Mohs surgery for basal cell carcinoma Status post appendectomy Status post excision of lipoma removed off neck x2 Status post hysterectomy Status post repair of ventral hernia Family History Grandfather (Maternal) Family hx of colon cancer Father FH: kidney cancer Family/Other Family history of diabetes mellitus nephew Other Kidney disease Lung disease No family history of adverse response to anesthesia Social History Smoking Status: Former smoker Tobacco Type: Cigarettes Cigarettes Per Day: unsure when she quit; Smoking End Date: 2003; Second Hand Exposure: No; Do You Dip or Chew Tobacco: No; Tobacco Cessation Education Requested by Patient: No Hx Alcohol Use: No Hx Substance Use: No Preferred Language: Romansh Communication Ability: Effective Supervisor [employer] Required: No Beliefs That Will Affect Care: None marital status: / Current Living Situation: Alone current occupational status: retired How many Children do You have: 3 Other Information That Helps Us Care for You: Yes Feels Safe at Home: Yes Safety Concerns: Feels Safe At This Time Assistive Devices: Cane Review of Systems Review of Systems: All systems reviewed & are unremarkable except as noted in HPI & below Physical Exam Constitutional: WD/WN, vitals as above well groomed, cooperative and comfortable Eyes: PERRL, conjunctivae normal, anicteric sclerae ENMT: external ear and nose normal, oropharynx normal Respiratory: no respiratory distress and does not use accessory muscles Auscultation: + diminished lung sounds Cardiovascular: RRR, no murmur, no edema Gastrointestinal (Abdomen): normal bowel sounds, soft, nontender, no hepatosplenomegaly Pt refused rectal exam Skin: no rashes, warm and dry Psychiatric: A+Ox3, euthymic affect Lymphatic: no lymphedema Results & Data ([facility]) Vital Signs (Past 12 Hours) Vital Signs Temp Pulse Pulse Resp BP Pulse Ox 01/20/21 11:17 37.0 C 96 H 18 143/77 H 96 01/20/21 11:00 74 20 96 01/20/21 07:57 37.2 C 84 20 157/82 H 97 01/20/21 07:25 90 20 95 01/20/21 07:17 67 01/20/21 03:17 36.9 C 101 H 20 144/82 H 92
[2021-01-20] MEDS: predniSONE 20 MG TAB PO SCH (13:20)
--- NOTE | 2021-01-20 14:24 | Hospitalist Progress Note ---
Date of Service January 20, 2021 Assessment & Plan (1) Chronic respiratory failure with hypoxia and hypercapnia: (2) Respiratory acidosis: (3) COPD exacerbation: Patient is a 75 yr female with H/O Chronic hypoxic and hypercapnic respiratory failure secondary to COPD and obesity hypoventilation syndrome, chronic diastolic CHF, chronic sinus tachycardia, HTN, HLD, fibromyalgia, GERD, ambulatory dysfunction who presents to ED secondary to worsening shortness of breath, weakness and blood in stool x1 day. Chronic respiratory failure with hypoxia, hypercapnia Acute COPD exacerbation CTA:No evidence of acute pulmonary embolism There are no areas of parenchymal consolidation to indicate pneumonia. Cholelithiasis. Severe T7 compression fracture. This was not present on the prior December 2018 study Negative COVID screen Not using Symbicort regularly as prescribed Patient unsure if home oxygen ran out Continue home inhalers Continue prednisone, bronchodilators Titrate oxygen to keep saturation 88-92% Case management to help with discharge planning (4) Chronic diastolic heart failure: Euvolemic currently continue metoprolol, losartan Monitor (5) Obesity hypoventilation syndrome: (6) BRBPR (bright red blood per rectum): Rectal Bleeding H/O hemorrhoids Patient refused rectal exam Monitor H&H, transfuse PRBCs as needed Avoid constipation, bowel regimen Appreciate GI input We will consider hydrocortisone cream as needed if bleeding reoccurs Hold Aspirin for now (7) GERD (gastroesophageal reflux disease): Continue PPI (8) Hypertension: continue losartan, metoprolol (9) Dyslipidemia: continue statin (10) DVT prophylaxis: SCDs Code Status FULL CODE Disposition PT/OT prior to discharge Admission and Anticipated Discharge Date Admission Date: January 20, 2021 Subjective Patient seen and examined at bedside States feeling better today Reports noticing minimal bright red blood in stool this morning Denies chest pain, dyspnea, dizziness, nausea, abdominal pain Offers no other complaints Review of Systems Review of Systems: All systems reviewed & are unremarkable except as noted in HPI & below Physical Exam Physical Exam: Physical Exam: Vitals signs as noted above General Appearance:Moderately built and nourished, no apparent distress Head: normocephalic, Atraumatic Eyes: normal inspection, EOMI Neck: supple, Trachea midline Respiratory/Chest: Decreased breath sounds, CTA Cardiovascular: S1, S2, No murmur Abdomen/GI:Soft, Non tender, Bowel sounds present Extremities/Musculoskeletal:normal inspection, no edema Neurologic/Psych:AAOX3, grossly no focal neurological deficits Skin: normal color, warm Results & Data Results & Data ([facility]) Vital Signs (Past 12 Hours) Vital Signs Temp Pulse Pulse Resp BP Pulse Ox 01/20/21 11:17 37.0 C 96 H 18 143/77 H 96 01/20/21 11:00 74 20 96 01/20/21 07:57 37.2 C 84 20 157/82 H 97 01/20/21 07:25 90 20 95 01/20/21 07:17 67 01/20/21 03:17 36.9 C 101 H 20 144/82 H 92 Laboratory Results Short CBC 01/20/21 Range/Units 06:34 WBC 6.65 (4.8-10.8) K/uL Hgb 10.2 L (12.0-16.0) g/dL Hct 34.0 L (37-47) % Plt Count 169 (130-400) K/uL BMP 01/20/21 06:34 Sodium 142 Potassium 3.5 D Chloride 99 Carbon Dioxide 43 H* BUN 22 H Creatinine 0.50 L Glucose 88 Calcium 8.6 (1) GERD (gastroesophageal reflux disease) Esophagitis presence: esophagitis presence not specified Qualified Code(s): K21.9 - Gastro-esophageal reflux disease without esophagitis (2) Hypertension Hypertension type: unspecified Qualified Code(s): I10 - Essential (primary) hypertension
[2021-01-20 16:14] LABS: Hemoglobin 10.5 g/dL (12.0-16.0)
[2021-01-20] MEDS: FLUTICASONE/VILANTEROL 100/25MCG 14 PUFFS/INHALER INH SCH (16:47)
[2021-01-20] MEDS: traMADol HCL 50 MG TABLET PO PRN (20:41)
[2021-01-21 06:47] LABS: Hematocrit (blood only) 34.6 % (37-47); Hemoglobin 10.5 g/dL (12.0-16.0); Mean Corpuscular Hemoglobin 27.3 pg (25-34); Mean Corpuscular Hgb Conc 30.3 g/dL (32-36); Mean Corpuscular Volume 90.1 fL (80-100); Mean Platelet Volume 10.8 fL (7.4-10.4); Platelet Count 172 K/uL (130-400); RDW Coefficient of Variation 13.8 % (11.5-14.5); RDW Standard Deviation 45.8 fL (36.4-46.3); Red Blood Count 3.84 M/uL (4.2-5.4); White Blood Count 7.69 K/uL (4.8-10.8)
[2021-01-21 07:23] LABS: BUN Creatinine Ratio 36.2 (10-20); Calcium 8.9 mg/dl (8.5-10.1); Creatinine Clr Calc Pharmacy 69.2 ml/min; Est GFR (African American) 101.9; Est GFR (Non-African American) 87.9; Magnesium 2.2 mg/dl (1.8-2.4)
[2021-01-21] MEDS: ALBUT/IPRATROP 3MG/0.5MG NEB 3 ML VIAL NEB SCH ×2 (07:36→11:08)
[2021-01-21 07:41] LABS: Potassium 4.1 mmol/L (3.5-5.1)
[2021-01-21] MEDS: FLUTICASONE/VILANTEROL 100/25MCG 14 PUFFS/INHALER INH SCH (10:05)
[2021-01-21] MEDS: ASPIRIN 81 MG ECTAB PO SCH (10:05)
[2021-01-21] MEDS: DOCUSATE SODIUM 100 MG CAP PO SCH (10:05)
[2021-01-21] MEDS: predniSONE 20 MG TAB PO SCH (10:06)
[2021-01-21] MEDS: ATORVASTATIN 40 MG TAB PO SCH (10:06)
[2021-01-21] MEDS: METOPROLOL SUCC 50MG EXT REL TAB PO SCH (10:06)
[2021-01-21] MEDS: ROFLUMILAST 500 MCG TAB PO SCH (10:06)
[2021-01-21] MEDS: MAGNESIUM OXIDE 400 MG TAB PO SCH (10:06)
[2021-01-21] MEDS: PANTOprazole 40 MG TAB PO SCH (10:07)
[2021-01-21] MEDS: LOSARTAN POTASSIUM 25 MG TAB PO SCH (10:07)
[2021-01-21] MEDS: traMADol HCL 50 MG TABLET PO PRN (10:14)
--- NOTE | 2021-01-21 11:26 | Hospitalist Progress Note ---
Date of Service January 21, 2021 Assessment & Plan (1) Chronic respiratory failure with hypoxia and hypercapnia: (2) Respiratory acidosis: (3) COPD exacerbation: Patient is a 75 yr female with H/O Chronic hypoxic and hypercapnic respiratory failure secondary to COPD and obesity hypoventilation syndrome, chronic diastolic CHF, chronic sinus tachycardia, HTN, HLD, fibromyalgia, GERD, ambulatory dysfunction who presents to ED secondary to worsening shortness of breath, weakness and blood in stool x1 day. Chronic respiratory failure with hypoxia, hypercapnia Acute COPD exacerbation CTA:No evidence of acute pulmonary embolism There are no areas of parenchymal consolidation to indicate pneumonia. Cholelithiasis. Severe T7 compression fracture. This was not present on the prior December 2018 study Negative COVID screen Not using Symbicort regularly as prescribed Patient unsure if home oxygen ran out Continue home inhalers Continue prednisone, bronchodilators Titrate oxygen to keep saturation 88-92% PT/OT recommend to return home (4) Chronic diastolic heart failure: Euvolemic currently continue metoprolol, losartan Monitor (5) Obesity hypoventilation syndrome: pt on dry side on exam will give 1L of gentle IVF daily weights, strict I and O continue metoprolol and losartan (6) BRBPR (bright red blood per rectum): Rectal Bleeding H/O hemorrhoids Patient refused rectal exam Monitor H&H, transfuse PRBCs as needed Avoid constipation, bowel regimen Appreciate GI input We will consider hydrocortisone cream as needed if bleeding reoccurs (7) GERD (gastroesophageal reflux disease): Continue PPI (8) Hypertension: continue losartan, metoprolol (9) Dyslipidemia: continue statin (10) DVT prophylaxis: SCDs Code Status FULL CODE Disposition Home Admission and Anticipated Discharge Date Admission Date: January 20, 2021 Subjective Patient seen and examined at bedside Reports shakiness from breathing treatment Denies SOB, cough No blood in stools today Discussed with patient's son over phone Denies chest pain, dizziness, nausea, abdominal pain Offers no other complaints Review of Systems Review of Systems: All systems reviewed & are unremarkable except as noted in HPI & below Physical Exam Physical Exam: Physical Exam: Vitals signs as noted above General Appearance:Moderately built and nourished, no apparent distress Head: normocephalic, Atraumatic Eyes: normal inspection, EOMI Neck: supple, Trachea midline Respiratory/Chest: Decreased breath sounds, CTA Cardiovascular: S1, S2, No murmur Abdomen/GI:Soft, Non tender, Bowel sounds present Extremities/Musculoskeletal:normal inspection, no edema Neurologic/Psych:AAOX3, grossly no focal neurological deficits Skin: normal color, warm Results & Data Results & Data ([facility]) Vital Signs (Past 12 Hours) Vital Signs Temp Pulse Pulse Resp BP Pulse Ox 01/21/21 08:01 36.9 C 85 18 151/73 H 97 01/21/21 07:37 83 18 97 01/21/21 07:07 54 L 01/21/21 02:53 36.8 C 79 22 171/68 H 98 Laboratory Results Short CBC 01/20/21 01/21/21 Range/Units 16:00 06:32 WBC 7.69 (4.8-10.8) K/uL Hgb 10.5 L 10.5 L (12.0-16.0) g/dL Hct 34.0 L 34.6 L (37-47) % Plt Count 172 (130-400) K/uL BMP 01/21/21 06:32 Sodium 140 Potassium 4.1 D Chloride 99 Carbon Dioxide 43 H* BUN 22 H Creatinine 0.60 Glucose 90 Calcium 8.9 (1) GERD (gastroesophageal reflux disease) Esophagitis presence: esophagitis presence not specified Qualified Code(s): K21.9 - Gastro-esophageal reflux disease without esophagitis (2) Hypertension Hypertension type: unspecified Qualified Code(s): I10 - Essential (primary) hypertension
[2021-01-21] MEDS ORDERED: ALBUT/IPRATROP 3MG/0.5MG NEB 3 ML VIAL NEB PRN (11:35)
--- NOTE | 2021-01-21 11:38 | Discharge Summary ---
Date of Service January 21, 2021 Admission HPI Per Admitting Provider This is a 75-year-old female who has significant past medical history of chronic hypoxic and hypercapnic respiratory failure secondary to COPD and obesity hypoventilation syndrome, chronic diastolic CHF, chronic sinus tachycardia, HTN, HLD, fibromyalgia, GERD, ambulatory dysfunction who presents to ED secondary to worsening shortness of breath, weakness and blood in stool x1 day. Yesterday she had a dark brown BM and blood was bright red. She has hx of similar blood in stool 1 year or so ago. She admits to hx of colonoscopy. Does not feel it was abnormal. She does not take a blood thinner but does take ASA 81mg. She was having increasing SOB but feels this has improved. She also had abdominal pain. It felt full and shaky. She also had BARONE. He does see pulmonology but has not in a long time. She is only taking inhalers as needed and has not used them regularly. She has been using oxygen at home. She uses 2-3L of O2 at home. She denies chest pain, tightness, n/v/d, f/c/s, dysuria, increased urg/freq, melena. She has chronic wet cough, more than usual. Unable to bring up. She was without oxygen all night last night. She thought it ran out. She also has been without food for 2 days. She lives alone. She has family nearby but no one helps her. In ED patient remained hemodynamically stable. She was saturating normally on her usual 2 L of oxygen. With ambulation she did desaturate slightly to 88%. CBC generally unremarkable. VBG pH 7.30, CO2 104, chemistry revealed CO2 46, BUN 22, creatinine 0.59, glucose 119. She was heme + of fecal occult, but hgb normal at 12.4. She received albuterol nebulizer treatment, IV PPI. Admission Exam Per Admitting Provider Physical Exam Physical Exam: .Constitutional: Morbidly obese, female, chronically ill, on 2 L of O2, WD/WN, vitals as above, NAD, sitting up in bed, pleasant, mild tachypnea with conversation Head: Normocephalic, Atraumatic Eyes: PERRL, conjunctivae normal, anicteric sclerae ENMT: external ear and nose normal, oropharynx normal Neck: trachea midline, no thyromegaly normal visual inspection Respiratory: Increased respiratory effort, decreased breath sounds throughout, distant, prolonged expiratory phase with wheeze, no rales or rhonchi, 2 L of O2 via NC, no accessory muscle use Cardiovascular: RRR, no murmur, no edema Vessels: no JVD or carotid bruit Chest: normal inspection of chest Abdomen: Obese abdomen, normal bowel sounds, soft, nontender, no hepatosplenomegaly Musculoskeletal: no cyanosis or clubbing, active range of motion x4 Skin: no rashes, warm and dry mild turgor Neurologic: PERRL, EOMI, accommodation nl, no face palsy, no dysarthria CN's II-XI intact bilaterally and moves all extremities Psychiatric: A+Ox3, euthymic affect : deferred Principal Diagnosis Acute COPD exacerbation Rectal Bleeding Discharge Data Allergies Allergy/AdvReac Type Severity Reaction Status Date / Time duloxetine [From Cymbalta] Allergy Mild Rash Verified 10/03/20 12:55 naproxen AdvReac Mild GI SYMPTOMS Verified 10/03/20 12:55 Consultations 01/19/21 14:03 ED Decision to Admit Stat 01/20/21 11:10 Consult Gastroenterology Routine Procedures Performed CTA:No evidence of acute pulmonary embolism There are no areas of parenchymal consolidation to indicate pneumonia. Cholelithiasis. Severe T7 compression fracture. This was not present on the prior December 2018 study Ordered Studies 01/19/21 09:55 CT lumbar spine wo con Stat 01/19/21 11:10 CT angio chest PE protocol Stat Hospital Course (1) Chronic respiratory failure with hypoxia and hypercapnia: (2) Respiratory acidosis: (3) COPD exacerbation: Patient is a 75 yr female with H/O Chronic hypoxic and hypercapnic respiratory failure secondary to COPD and obesity hypoventilation syndrome, chronic diastolic CHF, chronic sinus tachycardia, HTN, HLD, fibromyalgia, GERD, ambulatory dysfunction who presents to ED secondary to worsening shortness of breath, weakness and blood in stool x1 day. Chronic respiratory failure with hypoxia, hypercapnia Acute COPD exacerbation CTA:No evidence of acute pulmonary embolism There are no areas of parenchymal consolidation to indicate pneumonia. Cholelithiasis. Severe T7 compression fracture. This was not present on the prior December 2018 study Negative COVID screen Not using Symbicort regularly as prescribed Patient unsure if home oxygen ran out Continue home inhalers Continue prednisone, bronchodilators Titrate oxygen to keep saturation 88-92% PT/OT recommend to return home (4) Chronic diastolic heart failure: Euvolemic currently continue metoprolol, losartan Monitor (5) Obesity hypoventilation syndrome: pt on dry side on exam will give 1L of gentle IVF daily weights, strict I and O continue metoprolol and losartan (6) BRBPR (bright red blood per rectum): Rectal Bleeding H/O hemorrhoids Patient refused rectal exam Monitor H&H, transfuse PRBCs as needed Avoid constipation, bowel regimen Appreciate GI input We will consider hydrocortisone cream as needed if bleeding reoccurs (7) GERD (gastroesophageal reflux disease): Continue PPI (8) Hypertension: continue losartan, metoprolol (9) Dyslipidemia: continue statin Severe T7 compression fracture Incidental finding on CT Patient denies back pain (10) DVT prophylaxis: SCDs Code Status FULL CODE Disposition Home Total Time Total Time Spent Total Time Spent (In Minutes): 41 minutes Total Time Includes: Examination of the Patient, Discharge Planning, Medication Reconciliation, Communication With Other Providers and Other Discharge Plan Discharge Items Patient Disposition: Home - Self-Care Reason For Visit: HEME POSITIVE STOOL, SOB Discharge Diagnosis: Acute COPD exacerbation Rectal Bleeding Condition on Discharge: Fair Activity: Per Instructions section Exercise/Sports: Wait until after follow-up appointment Non-emergency contact: Primary Care Provider Call non-emergency contact if: you have any medication questions, your symptoms worsen and your pain is not controlled Follow-up/Referrals: Russ Moon MD [Primary Care Provider] - (Date & Time 01/25/2021 12:20 PM Provider Russ Moon MD Department [facility] ) Diet: Heart Healthy Add Attending Provider Instructions: Follow-up with your primary care physician Dr. Moon in 1 week Follow-up with your field health officer Dr. Hannah if any recurrence of bleeding in stool Use your inhalers regularly as advised. Seek immediate medical attention if your symptoms reoccur or worsen Pending Studies at Discharge: No Stand-Alone Forms: My [employer], Smoking Cessation Medications and DC Order Prescriptions: New pantoprazole 40 mg Tablet,Delayed Release (Dr/Ec) 40 mg PO DAILY Qty: 30 RF: 0 polyethylene glycol 3350 [Miralax] 17 gram Powder In Packet 17 g PO DAILY PRN (Reason: constipation) Qty: 30 RF: 0 prednisone 10 mg tablet 10 mg PO DAILY Qty: 3 RF: 0 budesonide-formoterol 160-4.5 mcg/actuation HFA aerosol inhaler 2 puffs INH BID Qty: 10.2 RF: 1 Continued Daliresp 250 mcg tablet 250 mcg PO QAM Qty: 90 RF: 1 (DME) Oxygen Home Liters Per Minute See Rx Instructions .ROUTE .MEDSUPPLY Qty: 1 RF: 0 tramadol 50 mg tablet 50 mg PO Q6H PRN (Reason: Pain) RF: 0 diclofenac sodium 1 % gel 1 ea TOP UD RF: 0 ipratropium-albuterol 0.5 mg-3 mg(2.5 mg base)/3 mL solution for nebulization 3 ml INHALATION QID PRN (Reason: shortness of breath or wheezing) Qty: 360 RF: 5 magnesium oxide 400 mg magnesium Capsule 400 mg PO QAM RF: 0 atorvastatin 40 mg Tablet 40 mg PO QAM RF: 0 losartan 25 mg Tablet 25 mg PO QAM RF: 0 albuterol sulfate [Ventolin HFA] 90 mcg/actuation Hfa Aerosol Inhaler 2 puff INHALATION Q4H PRN (Reason: Shortness Of Breath Or Wheezing) RF: 0 metoprolol succinate 50 mg tablet extended release 24 hr 50 mg PO QAM RF: 0 aspirin 81 mg Tablet,Delayed Release (Dr/Ec) 81 mg PO DAILY RF: 0 docusate sodium 100 mg Tablet 100 mg PO BID RF: 0 Discharge Orders: Discharge Order (Routine); Ordered 01/21/21 Ordered By: Tip Vasquez Admission Data Admit Date/Time: 01/20/21 11:10 Attending Provider: Tip Vasquez Admit Provider: Tip Vasquez Primary Care Provider: Russ Moon Other Providers: Tip Vasquez ; Sheba Hannah Other Interventions: Discharge Summary Assessment (RN) Last Done: 01/21/21 11:31
== END 2021-01-21 12:36 | disposition home or self-care (01) | DRG 191 ==
LOC: 2N 09:16 → ED 09:16 → 2N 16:47

== ENCOUNTER 2021-03-04 09:26 | Inpatient (IN) ==
[2021-03-04] MEDS ORDERED: ALBUT/IPRATROP 3MG/0.5MG NEB 3 ML VIAL INH STA (09:35)
--- NOTE | 2021-03-04 09:54 | Emergency Department Note ---
History of Present Illness General Chief complaint: Shortness of Breath/Dyspnea Time Seen by Provider: 03/04/21 09:27 Source: patient and EMS Mode of arrival: EMS Limitations: clinical acuity (difficulty) History of Present Illness Provider complaint: shortness of breath This is an 75 yo female who presents with shortness of breath via EMS. Patient has a history of COPD and wears 3 L of oxygen daily. Per EMS, patient's room air saturations was 63% and she was not on her home oxygen. They state the house was in disarray with scattered feces throughout the rooms. It appeared as though she has not been using her oxygen more medications including her breathing treatments as prescribed. Patient reported to EMS that she was taking her medications. Patient states she does use nebulizer treatments daily. Taurus viral also complained of chronic back pain as well as feeling as though her abdomen has "fluid" in it. Patient denies any recent known sick contact or exposure to coronavirus. Patient denies any change in her cough. EMS report patient was initially slightly confused and somnolent. They state upon application of oxygen and oxygen saturations improving, she became more awake and alert and is now answering a few questions. Patient does live alone. Pt seen during a time of high acuity and national emergency pandemic while wearing PPE. Patient seen in conjunction with Dr. Puente, family practice resident. Home Medications Medication Instructions Recorded Confirmed Type albuterol sulfate [Ventolin HFA] 2 puff INHALATION Q4H PRN 12/14/18 03/04/21 History atorvastatin 40 mg PO QAM 12/14/18 03/04/21 History losartan 25 mg PO QAM 12/14/18 03/04/21 History magnesium oxide 400 mg PO QAM 02/13/19 03/04/21 History metoprolol succinate 50 mg PO QAM 04/22/19 03/04/21 History ipratropium 0.5 mg-albuterol 3 mg 3 ml INHALATION QID PRN #360 ml 09/10/19 03/04/21 Rx (2.5 mg base)/3 mL nebulization soln Oxygen Home #1 ea 11/05/19 01/19/21 Rx diclofenac sodium 1 % topical gel 1 ea TOP UD PRN 01/22/20 03/04/21 History tramadol 50 mg tablet 50 mg PO Q6H PRN 01/22/20 03/04/21 History roflumilast 250 mcg tablet 250 mcg PO QAM #90 tab 06/30/20 03/04/21 Rx aspirin 81 mg PO DAILY 01/19/21 03/04/21 History docusate sodium 100 mg PO BID 01/19/21 03/04/21 History budesonide-formoterol 2 puffs INH BID #10.2 gm 01/21/21 03/04/21 Rx pantoprazole 40 mg PO DAILY #30 tab 01/21/21 03/04/21 Rx polyethylene glycol 3350 [Miralax] 17 g PO DAILY PRN #30 ea 01/21/21 03/04/21 Rx prednisone 10 mg PO DAILY #3 tab 01/21/21 03/04/21 Rx multivit with min-folic acid 2 tab PO DAILY 03/04/21 03/04/21 History [Multivitamin Gummies] Allergies Allergy/AdvReac Type Severity Reaction Status Date / Time duloxetine [From Cymbalta] Allergy Mild Rash Verified 03/04/21 11:16 naproxen AdvReac Mild GI SYMPTOMS Verified 03/04/21 11:16 Past Med/Surg History Medical History BCC (basal cell carcinoma of skin) on left side of face---"s/p MOHS surgery" Chronic diastolic heart failure Chronic respiratory failure with hypoxia, on home O2 therapy OXYGEN 3L/MIN VIA NC COPD (chronic obstructive pulmonary disease) inhaler daily/prn and nebulizer prn COPD (chronic obstructive pulmonary disease) Degenerative disc disease Dyslipidemia Fibromyalgia GERD (gastroesophageal reflux disease) Hypertension Metabolic encephalopathy On home oxygen therapy 3L N/C at all times Osteoporosis Sinus tachycardia SOB (shortness of breath) on exertion Tremor of both hands Surgical History History of bilateral cataract extraction History of carpal tunnel surgery of right wrist History of colonoscopy with polypectomy History of esophagogastroduodenoscopy (EGD) History of left breast biopsy benign History of mandibular surgery jaw fx History of repair of left rotator cuff History of repair of right rotator cuff History of tooth extraction S/P Mohs surgery for basal cell carcinoma Status post appendectomy Status post excision of lipoma removed off neck x2 Status post hysterectomy Status post repair of ventral hernia Family History Grandfather (Maternal) Family hx of colon cancer Father FH: kidney cancer Family/Other Family history of diabetes mellitus nephew Other Kidney disease Lung disease No family history of adverse response to anesthesia Social History Smoking Status: Former smoker Tobacco Type: Cigarettes Cigarettes Per Day: unsure when she quit; Smoking End Date: 2003; Second Hand Exposure: No; Hx Alcohol Use: No Hx Substance Use: No Preferred Language: [place] Communication Ability: Effective Professional Advisor Required: No Beliefs That Will Affect Care: None marital status: / Current Living Situation: Alone current occupational status: retired How many Children do You have: 3 Feels Safe at Home: Yes Assistive Devices: Oxygen - Continuous Review of Systems See HPI for pertinent positives & negatives. All systems reviewed & are unremarkable except as noted in HPI & below Physical Exam Vital Signs Vital Signs - 24 hr 03/04/21 09:30 03/04/21 09:32 03/04/21 09:36 Temperature 37.4 C Temperature Source Oral Pulse Rate 140 H Pulse Rate [Right Finger] 137 H Pulse Rate from SpO2 Sensor 140 H Pulse Rhythm Pulse Rhythm [Right Finger] Irregular Respiratory Rate 25 H 23 Respiratory Effort / Characteristics Non-Labored Spontaneous Spontaneous Labored Respiratory Depth Normal Respiratory Pattern Regular Blood Pressure 147/97 H Blood Pressure [Left Arm] 147/97 H Blood Pressure Mean 113 Blood Pressure Mean [Left Arm] 113 Blood Pressure Position [Left Arm] Sitting Pulse Oximetry 100 99 Oxygen Delivery Method Room Air Nasal Cannula Oxygen Flow Rate 3 Fraction of Inspired Oxygen Sepsis Recent Fever Within 48 Hours Sepsis New/Unexplained Change in Mental Status Sepsis Action Taken by Nursing 03/04/21 09:37 03/04/21 09:40 03/04/21 09:41 Temperature Temperature Source Pulse Rate 139 H 137 H Pulse Rate [Right Finger] Pulse Rate from SpO2 Sensor 137 H 134 H Pulse Rhythm Irregular Pulse Rhythm [Right Finger] Respiratory Rate 19 25 H Respiratory Effort / Characteristics Respiratory Depth Respiratory Pattern Blood Pressure Blood Pressure [Left Arm] Blood Pressure Mean Blood Pressure Mean [Left Arm] Blood Pressure Position [Left Arm] Pulse Oximetry 100 100 99 Oxygen Delivery Method Nasal Cannula Nasal Cannula Nasal Cannula Oxygen Flow Rate 3 3 3 Fraction of Inspired Oxygen Sepsis Recent Fever Within 48 Hours Sepsis New/Unexplained Change in Mental Status Sepsis Action Taken by Nursing 03/04/21 09:42 03/04/21 09:50 03/04/21 10:00 Temperature Temperature Source Pulse Rate 138 H 131 H Pulse Rate [Right Finger] Pulse Rate from SpO2 Sensor 138 H 131 H Pulse Rhythm Pulse Rhythm [Right Finger] Respiratory Rate 31 H 27 H Respiratory Effort / Characteristics Respiratory Depth Respiratory Pattern Blood Pressure Blood Pressure [Left Arm] Blood Pressure Mean Blood Pressure Mean [Left Arm] Blood Pressure Position [Left Arm] Pulse Oximetry 100 100 99 Oxygen Delivery Method Nasal Cannula Oxygen Flow Rate Fraction of Inspired Oxygen Sepsis Recent Fever Within 48 Hours No Sepsis New/Unexplained Change in Mental Status No Sepsis Action Taken by Nursing No Action Required 03/04/21 10:06 03/04/21 10:10 03/04/21 10:11 Temperature Temperature Source Pulse Rate 131 H Pulse Rate [Right Finger] 134 H 135 H Pulse Rate from SpO2 Sensor 130 H Pulse Rhythm Pulse Rhythm [Right Finger] Respiratory Rate 22 24 24 Respiratory Effort / Characteristics Spontaneous Spontaneous Respiratory Depth Respiratory Pattern Blood Pressure Blood Pressure [Left Arm] Blood Pressure Mean Blood Pressure Mean [Left Arm] Blood Pressure Position [Left Arm] Pulse Oximetry 99 99 98 Oxygen Delivery Method High Flow Nasal Cannula High Flow Nasal Cannula Oxygen Flow Rate 20 30 Fraction of Inspired Oxygen 40 35 Sepsis Recent Fever Within 48 Hours Sepsis New/Unexplained Change in Mental Status Sepsis Action Taken by Nursing 03/04/21 10:20 03/04/21 10:30 03/04/21 10:40 Temperature Temperature Source Pulse Rate 117 H 123 H 121 H Pulse Rate [Right Finger] Pulse Rate from SpO2 Sensor 119 H 122 H 124 H Pulse Rhythm Pulse Rhythm [Right Finger] Respiratory Rate 25 H 26 H 25 H Respiratory Effort / Characteristics Respiratory Depth Respiratory Pattern Blood Pressure Blood Pressure [Left Arm] Blood Pressure Mean Blood Pressure Mean [Left Arm] Blood Pressure Position [Left Arm] Pulse Oximetry 94 94 94 Oxygen Delivery Method Oxygen Flow Rate Fraction of Inspired Oxygen Sepsis Recent Fever Within 48 Hours Sepsis New/Unexplained Change in Mental Status Sepsis Action Taken by Nursing 03/04/21 10:50 03/04/21 11:00 Temperature Temperature Source Pulse Rate 118 H 122 H Pulse Rate [Right Finger] Pulse Rate from SpO2 Sensor 113 H 120 H Pulse Rhythm Pulse Rhythm [Right Finger] Respiratory Rate 23 25 H Respiratory Effort / Characteristics Respiratory Depth Respiratory Pattern Blood Pressure Blood Pressure [Left Arm] Blood Pressure Mean Blood Pressure Mean [Left Arm] Blood Pressure Position [Left Arm] Pulse Oximetry 94 94 Oxygen Delivery Method Oxygen Flow Rate Fraction of Inspired Oxygen Sepsis Recent Fever Within 48 Hours Sepsis New/Unexplained Change in Mental Status Sepsis Action Taken by Nursing GENERAL: alert, unwell appearing, well nourished, moderate distress, non-toxic EYE EXAM: normal conjunctiva, PERRL and EOM's grossly intact OROPHARYNX: no exudate, no erythema, lips, buccal mucosa, and tongue normal and mucous membranes are moist NECK: supple, no nuchal rigidity, no adenopathy, non-tender LUNGS: Diminished b/l to auscultation. Normal chest wall mechanics, tachypneic, increased WOB, mild accessory muscle use, speaks in short phrases, pursed lip breathing HEART: no murmurs, S1 normal and S2 normal ABDOMEN: abdomen soft, non-tender, normo-active bowel sounds, no masses, no rebound or guarding. BACK: Back is symmetrical on inspection and there is no deformity, no midline tenderness, no CVA tenderness. SKIN: no rashes and no bruising UPPER EXTREMITIES: upper extremities are grossly normal. FROM, nml pulses b/l. LOWER EXTREMITIES: No pitting edema. FROM, nml pulses b/l. NEURO EXAM: Normal sensorium, cranial nerves II-XII grossly intact, normal speech, no gross weakness of arms, no gross weakness of legs. Gross sensation intact. Course Course 1032: Pt appears much improved with HFNC in place. Still tachycardic. 1052: Pt appears improved, decreased WOB. 1112: Dr. Puente discussed with hospitalist team. Administered Medications Aspirin (Aspirin 81 Mg Ectab) 81 mg PO DAILY [facility] Stop: 04/04/21 12:59 Last Admin: 03/05/21 13:17 Dose: 81 mg Documented by: [id number] Atorvastatin Calcium (Atorvastatin 40 Mg Tab) 40 mg PO QAM [facility] Stop: 04/04/21 12:59 Last Admin: 03/05/21 13:17 Dose: 40 mg Documented by: [id number] Azithromycin 500 mg/ Dextrose 255 mls @ 127.5 mls/hr IV Q24H [facility] Stop: 03/11/21 14:29 Last Admin: 03/05/21 16:08 Dose: 127.5 mls/hr Documented by: [id number] Infusion: 05/21/21 17:50 Dose: 0 mls/hr Documented by: [id number] Admin: 03/04/21 15:46 Dose: 127.5 mls/hr Documented by: [id number] Ipratropium [place] (Ipratropium [place] Neb Soln 0.02% 2.5 Ml Vial) 0.5 mg INH Q4R [facility] Stop: 04/03/21 14:59 Last Admin: 03/05/21 15:13 Dose: 0.5 mg Documented by: [id number] Admin: 03/05/21 11:05 Dose: 0.5 mg Documented by: [id number] Admin: 03/05/21 07:07 Dose: 0.5 mg Documented by: [id number] Admin: 03/05/21 03:32 Dose: 0.5 mg Documented by: [id number] Admin: 03/04/21 22:33 Dose: 0.5 mg Documented by: [id number] Admin: 03/04/21 20:03 Dose: Not Given Documented by: [id number] Admin: 03/04/21 15:37 Dose: 0.5 mg Documented by: [id number] Levalbuterol HCl (Levalbuterol 1.25mg/0.5ml Neb) 1.25 mg INH Q4R [facility] Stop: 04/03/21 14:59 Last Admin: 03/05/21 15:13 Dose: 1.25 mg Documented by: [id number] Admin: 03/05/21 11:05 Dose: 1.25 mg Documented by: [id number] Admin: 03/05/21 07:08 Dose: 1.25 mg Documented by: [id number] Admin: 03/05/21 03:32 Dose: 1.25 mg Documented by: [id number] Admin: 03/04/21 22:33 Dose: 1.25 mg Documented by: [id number] Admin: 03/04/21 20:03 Dose: Not Given Documented by: [id number] Admin: 03/04/21 15:37 Dose: 1.25 mg Documented by: [id number] Losartan Potassium (Losartan Potassium 25 Mg Tab) 25 mg PO QAM [facility] Stop: 04/04/21 12:59 Last Admin: 03/05/21 13:17 Dose: 25 mg Documented by: [id number] Magnesium Oxide (Magnesium Oxide 400 Mg Tab) 400 mg PO QAM [facility] Stop: 04/04/21 12:59 Last Admin: 03/05/21 13:17 Dose: 400 mg Documented by: [id number] Metoprolol Succinate (Metoprolol Succ 50mg Ext Rel Tab) 50 mg PO QAM [facility] Stop: 04/04/21 12:59 Last Admin: 03/05/21 13:17 Dose: 50 mg Documented by: [id number] Metoprolol Tartrate (Metoprolol Tartrate 1 Mg/Ml Vial) 5 mg IV Q6 PRN PRN Reason: HR >110 Stop: 04/03/21 17:59 Last Admin: 03/04/21 18:03 Dose: 5 mg Documented by: [id number] Pantoprazole Sodium (Pantoprazole 40 Mg Tab) 40 mg PO DAILY [facility] Stop: 04/04/21 12:59 Last Admin: 03/05/21 13:17 Dose: 40 mg Documented by: [id number] Roflumilast (Roflumilast 500 Mcg Tab) 250 mcg PO QAM [facility] Stop: 04/04/21 12:59 Last Admin: 03/05/21 13:17 Dose: 250 mcg Documented by: [id number] Tramadol HCl (Tramadol Hcl 50 Mg Tablet) 50 mg PO Q8H PRN PRN Reason: Pain Stop: 04/04/21 12:19 Last Admin: 03/05/21 13:33 Dose: 50 mg Documented by: [id number] Discontinued Medications Albuterol (Albut/Ipratrop 3mg/0.5mg Neb 3 Ml Vial) 3 ml INH NOW STA Stop: 03/04/21 09:36 Last Admin: 03/04/21 10:06 Dose: 3 ml Documented by: [id number] Lorazepam (Ativan) 0.5 mg in 1 mls @ 1 mls/min IV NOW STA Stop: 03/04/21 10:15 Last Admin: 03/04/21 11:02 Dose: 1 mls/min Documented by: [id number] Doxycycline Hyclate 100 mg/ (Dextrose) 110 mls @ 50 mls/hr IV Q12H [facility] Stop: 03/09/21 13:59 Last Infusion: 03/04/21 15:50 Dose: 0 mls/hr Documented by: [id number] Admin: 03/04/21 13:48 Dose: 50 mls/hr Documented by: [id number] Methylprednisolone 40 mg/ (Syringe) 0.64 mls @ 1.5 mls/min IV Q6H [facility] Stop: 04/03/21 13:59 Last Admin: 03/05/21 06:04 Dose: 1.5 mls/min Documented by: [id number] Admin: 03/05/21 00:40 Dose: 1.5 mls/min Documented by: [id number] Admin: 03/04/21 18:02 Dose: 1.5 mls/min Documented by: [id number] Lactated Ringer's (Lr) 1,000 mls @ 60 mls/hr IV .[id number] ONE Stop: 03/05/21 16:56 Last Admin: 03/05/21 00:40 Dose: 60 mls/hr Documented by: [id number] Methylprednisolone (Methylprednisolone 125 Mg/2 Ml Vial) 125 mg IV NOW STA Stop: 03/04/21 12:11 Last Admin: 03/04/21 12:26 Dose: 125 mg Documented by: [id number] Metoprolol Tartrate (Metoprolol Tartrate 1 Mg/Ml Vial) 5 mg IV NOW STA Stop: 03/04/21 11:13 Last Admin: 03/04/21 12:07 Dose: 5 mg Documented by: [id number] Critical Care Time Critical Care Time: Yes Total Critical Care Time: 49 Critical care of 49 min performed to assess and manage high likelihood of life- threatening dyspnea, involving labs and imaging performed with assessment to evaluate dyspnea diagnosis with frequent reassessment. This time includes bedside time, treatment discussions with patient/family/consultants, docum entation time and excludes procedure time. Medical Decision Making Differential Diagnosis Differential diagnoses includes but is not limited to pneumonia, bronchitis, COPD/Asthma exacerbation, pneumothorax, pulmonary embolism, congestive heart failure, acute coronary syndrome Medical Records Attestation: I reviewed the patient's medical records. Home Medications Current Medication List: was personally reviewed by me Laboratory Data Attestation: I reviewed the patient's lab results. Result diagrams: 03/05/21 07:12 03/05/21 07:12 Lab Results 03/04/21 03/04/21 03/04/21 Range/Units 10:04 10:04 10:04 WBC 8.85 (4.8-10.8) K/uL RBC 4.14 L (4.2-5.4) M/uL Hgb 11.7 L (12.0-16.0) g/dL Hct 39.2 (37-47) % MCV 94.7 (80-100) fL MCH 28.3 (25-34) pg MCHC 29.8 L (32-36) g/dL RDW Std Deviation 47.9 H (36.4-46.3) fL RDW Coeff of Reg 13.8 (11.5-14.5) % Plt Count 212 (130-400) K/uL MPV 11.0 H (7.4-10.4) fL Immature Gran % (Auto) 0.2 % Neut % (Auto) 85.5 % Lymph % (Auto) 6.2 % [place] % (Auto) 7.5 % Eos % (Auto) 0.5 % Baso % (Auto) 0.1 % Neut # (Auto) 7.57 H (1.4-6.5) K/uL Lymph # (Auto) 0.55 L (1.2-3.4) K/uL [place] # (Auto) 0.66 H (0.11-0.59) K/uL Eos # (Auto) 0.04 (0-0.5) K/uL Baso # (Auto) 0.01 (0-0.2) K/uL Immature Gran # (Auto) 0.02 (0.00-0.02) K/uL PT 11.0 (9.0-12.0) Seconds INR 1.1 (0.9-1.1) APTT 23.9 (21.0-31.0) Seconds PTT Ratio 0.9 ABG pH (7.35-7.45) ABG pCO2 (35-46) mmHg ABG pO2 (80-95) mmHg ABG HCO3 (19-24) mmol/L ABG O2 Saturation (90-95) % ABG Base Excess (-9-1.8) mEq/L Clarence Test (Pos) Barometric Pressure mm/Hg Oxygen Given Sodium 140 (136-145) mmol/L Potassium 3.8 (3.5-5.1) mmol/L Chloride 91 L (98-107) mmol/L Carbon Dioxide 41 H* (21-32) mmol/L Anion Gap 8.0 (3-11) BUN 26 H (7-18) mg/dl Creatinine 0.52 L (0.6-1.2) mg/dl Est Cr Clr Drug Dosing 79.1 ml/min Est GFR ( Amer) 106.8 ml/min Est GFR (Non-Af Amer) 92.2 ml/min BUN/Creatinine Ratio 49.8 H (10-20) Glucose 109 H (70-99) mg/dl Calcium 9.8 (8.5-10.1) mg/dl Magnesium 2.1 (1.8-2.4) mg/dl Total Bilirubin 1.0 (0.2-1) mg/dl AST 17 (15-37) U/L ALT 14 (12-78) U/L Alkaline Phosphatase 67 (45-117) U/L Troponin I 0.080 H* (0-0.045) ng/ml NT-Pro-B Natriuret Pep 416 (0-1800) pg/ml Total Protein 7.6 (6.4-8.2) gm/dl Albumin 3.7 (3.4-5.0) gm/dl Globulin 3.9 (2.5-4.0) gm/dl Albumin/Globulin Ratio 0.9 (0.9-2) COVID-19 Eval Order SARS-CoV-2 (PCR) (Negative) 03/04/21 03/04/21 03/04/21 Range/Units 10:04 10:34 10:34 WBC (4.8-10.8) K/uL RBC (4.2-5.4) M/uL Hgb (12.0-16.0) g/dL Hct (37-47) % MCV (80-100) fL MCH (25-34) pg MCHC (32-36) g/dL RDW Std Deviation (36.4-46.3) fL RDW Coeff of Reg (11.5-14.5) % Plt Count (130-400) K/uL MPV (7.4-10.4) fL Immature Gran % (Auto) % Neut % (Auto) % Lymph % (Auto) % [place] % (Auto) % Eos % (Auto) % Baso % (Auto) % Neut # (Auto) (1.4-6.5) K/uL Lymph # (Auto) (1.2-3.4) K/uL [place] # (Auto) (0.11-0.59) K/uL Eos # (Auto) (0-0.5) K/uL Baso # (Auto) (0-0.2) K/uL Immature Gran # (Auto) (0.00-0.02) K/uL PT (9.0-12.0) Seconds INR (0.9-1.1) APTT (21.0-31.0) Seconds PTT Ratio ABG pH 7.36 (7.35-7.45) ABG pCO2 87 H (35-46) mmHg ABG pO2 81 (80-95) mmHg ABG HCO3 48 H (19-24) mmol/L ABG O2 Saturation 94.8 (90-95) % ABG Base Excess 17.8 H (-9-1.8) mEq/L Clarence Test Pos (Pos) Barometric Pressure 744.9 mm/Hg Oxygen Given 3L Sodium (136-145) mmol/L Potassium (3.5-5.1) mmol/L Chloride (98-107) mmol/L Carbon Dioxide (21-32) mmol/L Anion Gap (3-11) BUN (7-18) mg/dl Creatinine (0.6-1.2) mg/dl Est Cr Clr Drug Dosing ml/min Est GFR ( Amer) ml/min Est GFR (Non-Af Amer) ml/min BUN/Creatinine Ratio (10-20) Glucose (70-99) mg/dl Calcium (8.5-10.1) mg/dl Magnesium (1.8-2.4) mg/dl Total Bilirubin (0.2-1) mg/dl AST (15-37) U/L ALT (12-78) U/L Alkaline Phosphatase (45-117) U/L Troponin I (0-0.045) ng/ml NT-Pro-B Natriuret Pep (0-1800) pg/ml Total Protein (6.4-8.2) gm/dl Albumin (3.4-5.0) gm/dl Globulin (2.5-4.0) gm/dl Albumin/Globulin Ratio (0.9-2) COVID-19 Eval Order Covid19 at [facility] SARS-CoV-2 (PCR) NEGATIVE (Negative) Imaging Data Radiologist's Impression: Chest X-Ray 03/04/21 09:35 XR chest 1V portable HISTORY: 75 years-old Female Dyspnea acute shortness of breath COMPARISON: CTA chest 01/19/2021, chest radiograph 01/19/2021 TECHNIQUE: Portable AP view of the chest FINDINGS: Cardiac silhouette is enlarged. Chronic interstitial coarsening of the lung bases. There is no pneumothorax, pleural effusion, airspace consolidation or overt pulmonary edema. Degenerative changes of the shoulders and spine. IMPRESSION: No acute process. ACT 112: Negative or not required by law. The above report was generated using voice recognition software. It may contain grammatical, syntax or spelling errors. Electronically signed by: Zach Perez M.D. 03/04/2021 10:05 AM ECG Data Attestation: I personally reviewed and interpreted this ECG as follows: Indication: + SOB/dyspnea Rate (beats per minute): 122 Rhythm: + sinus tachycardia ECG Intervals/blocks: + Normal QRS and + Normal QT ECG [place]: + Normal ECG ST segments: + ST depression (V4-6, II, aVF) Blood Pressure Blood Pressure Findings: Elevated blood pressure Blood Pressure Disposition: further management by hospitalist MDM Narrative This 75-year-old female who presents due to acute shortness of breath, initially room air sats 63% per EMS. Patient placed on nasal cannula and saturations did improve as did patient's mentation. Patient was still tachypneic with pursed lip breathing and mild increased work of breathing on arrival here. Given si gnificant history of COPD and prior episodes of respiratory failure, patient quickly moved upon my evaluation to high flow nasal cannula as she stated she is claustrophobic and could not tolerate BiPAP. Patient was speaking in short sentences at this time. Nebulizer treatment was also given. Additional evaluation with labs and imaging was performed. No obvious pneumonia, no fever or leukocytosis. Covid test was negative. Patient improved here with high flow nasal cannula. She was slightly somnolent for a time as she required some Ativan in order to tolerate the high flow. When patient was more relaxed, BiPAP was applied. Repeat blood gas showed improvement in her hypercapnia. Patient would arouse and follow commands, and did slowly become more alert as the Ativan wore off. At this time I do not suspect occult infectious etiology. While patient did have an elevated troponin, I suspect this is more likely demand ischemia due to hypoxia and risk factors for CAD. Case was discussed with hospitalist for additional evaluation and treatment. No evidence for CHF. No evidence for pneumonia. No evidence for pneumothorax. Patient's other labs reassuring. Patient was otherwise hemodynamically stable in the emergency room. I suspect patient's noncompliance led to worsening hypoxia and hypercapnia. It is unclear if she was taking any of her usual medications as she was not using her oxygen or nebulizer treatments. An order was placed for continuous cardiac monitoring. The monitor shows a rate of _112_ with Sinus tachycardia_ rhythm. Impression & Plan Acute dyspnea, COPD exacerbation, Respiratory failure with hypoxia and hypercapnia, Elevated troponin Discharge Plan Visit Data Chief Complaint: Shortness of Breath/Dyspnea ED Provider: Lashaun Bai ED Midlevel Provider: Erickson Puente Discharge Problem: Acute dyspnea, COPD exacerbation, Respiratory failure with hypoxia and hypercapnia, Elevated troponin Patient Disposition: Admitted As Inpatient Discharge Instructions Interventions: ED Discharge Assessment Last Done: 03/04/21 12:40 Discharge Problem: Respiratory failure with hypoxia and hypercapnia Qualifiers: Chronicity: acute on chronic Qualified Code(s): J96.21 - Acute and chronic respiratory failure with hypoxia
--- NOTE | 2021-03-04 10:06 | XRay Report ---
XR chest 1V portable HISTORY: 75 years-old Female Dyspnea acute shortness of breath COMPARISON: CTA chest 01/19/2021, chest radiograph 01/19/2021 TECHNIQUE: Portable AP view of the chest FINDINGS: Cardiac silhouette is enlarged. Chronic interstitial coarsening of the lung bases. There is no pneumo thorax, pleural effusion, airspace consolidation or overt pulmonary edema. Degenerative changes of th e shoulders and spine. IMPRESSION: No acute process. ACT 112: Negative or not required by law. The above report was generated using voice recognition software. It may contain grammatical, syntax o r spelling errors. Electronically signed by: Zach Perez M.D. 03/04/2021 10:05 AM
[2021-03-04] MEDS ORDERED: LORazepam 0.5 MG/1 ML VIAL IV STA (10:14)
[2021-03-04 10:18] LABS: Basophils # (auto) 0.01 K/uL (0-0.2); Basophils % (auto) 0.1 %; Eosinophils # (auto) 0.04 K/uL (0-0.5); Eosinophils % (auto) 0.5 %; Hematocrit (blood only) 39.2 % (37-47); Hemoglobin 11.7 g/dL (12.0-16.0); Immature Granulocytes # (auto) 0.02 K/uL (0.00-0.02); Immature Granulocytes % (auto) 0.2 %; Lymphocytes # (auto) 0.55 K/uL (1.2-3.4); Lymphocytes % (auto) 6.2 %; Mean Corpuscular Hemoglobin 28.3 pg (25-34); Mean Corpuscular Hgb Conc 29.8 g/dL (32-36); Mean Corpuscular Volume 94.7 fL (80-100); Monocytes # (auto) 0.66 K/uL (0.11-0.59); Monocytes % (auto) 7.5 %; Neutrophils # (auto) 7.57 K/uL (1.4-6.5); Neutrophils % (auto) 85.5 %; Platelet Count 212 K/uL (130-400); RDW Coefficient of Variation 13.8 % (11.5-14.5); RDW Standard Deviation 47.9 fL (36.4-46.3); Red Blood Count 4.14 M/uL (4.2-5.4); White Blood Count 8.85 K/uL (4.8-10.8)
[2021-03-04 10:23] LABS: Allen Test Pos (Pos); Base Excess ABG 17.8 mEq/L (-9-1.8); HCO3 ABG 48 mmol/L (19-24); Oxygen Saturation ABG 94.8 % (90-95); PCO2 ABG 87 mmHg (35-46); PO2 ABG 81 mmHg (80-95); pH ABG 7.36 (7.35-7.45)
[2021-03-04 10:28] LABS: INR 1.1 (0.9-1.1); Partial Thromboplastin Ratio 0.9; Partial Thromboplastin Time 23.9 Seconds (21.0-31.0)
[2021-03-04 10:43] LABS: Albumin Globulin Ratio 0.9 (0.9-2); Albumin Level 3.7 gm/dl (3.4-5.0); BUN Creatinine Ratio 49.8 (10-20); Calcium 9.8 mg/dl (8.5-10.1); Creatinine Clr Calc Pharmacy 79.1 ml/min; Est GFR (African American) 106.8 ml/min; Est GFR (Non-African American) 92.2 ml/min; Globulin 3.9 gm/dl (2.5-4.0); Magnesium 2.1 mg/dl (1.8-2.4); Potassium 3.8 mmol/L (3.5-5.1); Total Protein 7.6 gm/dl (6.4-8.2); Troponin I 0.08 ng/ml (0-0.045)
[2021-03-04] MEDS ORDERED: METOPROLOL TARTRATE 1 MG/ML VIAL IV STA (11:12)
--- NOTE | 2021-03-04 11:36 | History & Physical Report ---
Date of Service March 04, 2021 Assessment & Plan (1) Acute on chronic respiratory failure with hypoxia and hypercapnia: (2) Acute metabolic encephalopathy: This is a 75yo F with a PMH of chronic hypoxic and hypercapnic respiratory failure secondary to COPD and obesity hypoventilation syndrome, chronic diastolic CHF, chronic sinus tachycardia, HTN, HLD, fibromyalgia, GERD, ambulatory dysfunction who presents to ED with increased shortness of breath. History of hypoxemic and hypercarbic respiratory failure and severe COPD, noncompliant with BiPAP Follows with [facility] Clinically worsened after ativan in ER, was transitioned to Bipap Evaluated by Dr. Deutsch - does not feel degree of AMS can be attributed to CO2 retention as pH is essentially normal Will obtain CT head, utox, UA for further evaluation. Ammonia level is normal. Also feel Ativan contributing Considering EEG if patient remains somnolent despite improvement on blood gas (3) COPD exacerbation: Continue bipap, given IV solumedrol 125mg initially but no indication for continued for steroids per pulm Continue bronchodilators as needed, Azithromycin (4) Sinus tachycardia: Chronic condition with baseline HR ~ 105 HR 120s-130s initially in setting of respiratory failure, bronchodilators Scheduled IV schedule Lopressor, hold p.o. metoprolol patient is n.p.o. Improved HR to baseline 100 Monitor in PCU (5) Elevated troponin: Mild initial elevation of troponin at 0.080 No ischemic changes on EKG Possibly secondary to respiratory failure hypoxia, sinus tachycardia Serial troponin level ordered, resting echo (6) Hypertension: Hold all p.o. meds as patient is very lethargic, obtunded high aspiration risk IV Lopressor as above, as needed IV hydralazine for SBP more than 160 Failure to thrive Difficult social disposition in the past, unfit to live alone Limited support from friends or family Per EMS: Patient's house is found to be incompletely disarray, very filthy,/feces noted on the floor CODE STATUS: Full code as per recent admission. Will need to readdress when patient alert and oriented. Attempted to contact family without success. Dispo: Admitted to PCU. Discharge planning ordered. Patient seen in collaboration with Dr. Taylor. Please see addendum. History of Present Illness Chief Complaint: resp failure Primary Care Provider: Russ Moon MD This is a 75yo F with a PMH of chronic hypoxic and hypercapnic respiratory failure secondary to COPD and obesity hypoventilation syndrome, chronic diastolic CHF, chronic sinus tachycardia, HTN, HLD, fibromyalgia, GERD, ambulatory dysfunction who presents to ED with increased shortness of breath. History limited to EMS and nursing reports due to patient's reduced consciousn ess. EMS was called earlier today due to neighbor's hearing shouting for help from patient's home. Was found to be hypoxic at 63% without oxygen on. Reportedly wears 3 lpm daily. House was in disarray, patient covered in feces. Told EMS she had not taken medications "in awhile". Patient initially was placed on high flow O2 by ER physician, as patient refused BiPAP mask. Blood gas demonstrated acute on chronic hypercarbic state. Received IV Ativan for agitation and then became very somnolent, lethargic, placed on BiPAP. Unable to reach emergency contact but will continue attempting. Allergies Allergy/AdvReac Type Severity Reaction Status Date / Time duloxetine [From Cymbalta] Allergy Mild Rash Verified 03/04/21 11:16 naproxen AdvReac Mild GI SYMPTOMS Verified 03/04/21 11:16 Home Medications Medication Instructions Recorded Confirmed Type albuterol sulfate [Ventolin HFA] 2 puff INHALATION Q4H PRN 12/14/18 03/04/21 History atorvastatin 40 mg PO QAM 12/14/18 03/04/21 History losartan 25 mg PO QAM 12/14/18 03/04/21 History magnesium oxide 400 mg PO QAM 02/13/19 03/04/21 History metoprolol succinate 50 mg PO QAM 04/22/19 03/04/21 History ipratropium 0.5 mg-albuterol 3 mg 3 ml INHALATION QID PRN #360 ml 09/10/19 03/04/21 Rx (2.5 mg base)/3 mL nebulization soln Oxygen Home #1 ea 11/05/19 01/19/21 Rx diclofenac sodium 1 % topical gel 1 ea TOP UD PRN 01/22/20 03/04/21 History tramadol 50 mg tablet 50 mg PO Q6H PRN 01/22/20 03/04/21 History roflumilast 250 mcg tablet 250 mcg PO QAM #90 tab 06/30/20 03/04/21 Rx aspirin 81 mg PO DAILY 01/19/21 03/04/21 History docusate sodium 100 mg PO BID 01/19/21 03/04/21 History budesonide-formoterol 2 puffs INH BID #10.2 gm 01/21/21 03/04/21 Rx pantoprazole 40 mg PO DAILY #30 tab 01/21/21 03/04/21 Rx polyethylene glycol 3350 [Miralax] 17 g PO DAILY PRN #30 ea 01/21/21 03/04/21 Rx prednisone 10 mg PO DAILY #3 tab 01/21/21 03/04/21 Rx multivit with min-folic acid 2 tab PO DAILY 03/04/21 03/04/21 History [Multivitamin Gummies] Past Med/Surg History Medical History (Updated 03/04/21 @ 14:33 by Sommer Cherry PA-C) BCC (basal cell carcinoma of skin) on left side of face---"s/p MOHS surgery" Chronic diastolic heart failure Chronic respiratory failure with hypoxia, on home O2 therapy OXYGEN 3L/MIN VIA NC COPD (chronic obstructive pulmonary disease) inhaler daily/prn and nebulizer prn COPD (chronic obstructive pulmonary disease) Degenerative disc disease Dyslipidemia Fibromyalgia GERD (gastroesophageal reflux disease) Hypertension Metabolic encephalopathy On home oxygen therapy 3L N/C at all times Osteoporosis Sinus tachycardia SOB (shortness of breath) on exertion Tremor of both hands Surgical History History of bilateral cataract extraction History of carpal tunnel surgery of right wrist History of colonoscopy with polypectomy History of esophagogastroduodenoscopy (EGD) History of left breast biopsy benign History of mandibular surgery jaw fx History of repair of left rotator cuff History of repair of right rotator cuff History of tooth extraction S/P Mohs surgery for basal cell carcinoma Status post appendectomy Status post excision of lipoma removed off neck x2 Status post hysterectomy Status post repair of ventral hernia Family History Grandfather (Maternal) Family hx of colon cancer Father FH: kidney cancer Family/Other Family history of diabetes mellitus nephew Other Kidney disease Lung disease No family history of adverse response to anesthesia Social History Smoking Status: Former smoker Tobacco Type: Cigarettes Cigarettes Per Day: unsure when she quit; Smoking End Date: 2003; Second Hand Exposure: No; Hx Alcohol Use: No Hx Substance Use: No Preferred Language: Uzbek Communication Ability: Effective Scraper Hand Required: No Beliefs That Will Affect Care: None marital status: / Current Living Situation: Alone current occupational status: retired How many Children do You have: 3 Feels Safe at Home: Yes Assistive Devices: Cane Review of Systems Review of Systems: Unobtainable due to reduced consciousness Physical Exam Physical Exam: General Appearance: vitals as above, somnolent, wearing bipap mask, poorly groomed, arousable to painful stimuli Head: normocephalic, atraumatic Eyes: normal inspection, PERRL, conjunctivae normal, anicteric sclerae ENT: external ear and nose normal, bipap mask Neck: normal visual inspection, trachea midline, no thyromegaly Respiratory: increased respiratory effort, lung sounds diminished throughout. Tachypneic, + accessory muscle use Cardiovascular: tachycardic rate, regular rhythm, no murmur appreciated, normal peripheral pulses, no BLE edema. Vessels: no JVD Chest: normal inspection of chest Abdomen/GI: normal bowel sounds, soft, nontender, no hepatosplenomegaly Extremities/Musculoskeletal: no cyanosis or clubbing, extremities motor strength 5/5 Neurologic: PERRL, EOMI, accommodation nl, no face palsy, no dysarthria, CN's II-XI intact bilaterally and moves all extremities Psychiatric: Somnolent Skin: no rashes, normal color, warm/dry Results & Data Results & Data ([facility]) Vital Signs (Past 12 Hours) Vital Signs Temp Pulse Pulse Resp BP BP Pulse Ox 03/04/21 11:00 122 H 25 H 94 03/04/21 10:50 118 H 23 94 03/04/21 10:40 121 H 25 H 94 03/04/21 10:30 123 H 26 H 94 03/04/21 10:20 117 H 25 H 94 03/04/21 10:11 135 H 24 98 03/04/21 10:10 131 H 24 99 03/04/21 10:06 134 H 22 99 03/04/21 10:00 131 H 27 H 99 03/04/21 09:50 138 H 31 H 100 03/04/21 09:42 100 03/04/21 09:41 99 03/04/21 09:40 137 H 25 H 100 03/04/21 09:37 139 H 19 100 03/04/21 09:32 37.4 C 137 H 23 147/97 H 99 03/04/21 09:30 140 H 25 H 147/97 H 100 Laboratory Results Short CBC 03/04/21 Range/Units 10:04 WBC 8.85 (4.8-10.8) K/uL Hgb 11.7 L (12.0-16.0) g/dL Hct 39.2 (37-47) % Plt Count 212 (130-400) K/uL BMP 03/04/21 10:04 Sodium 140 Potassium 3.8 Chloride 91 L Carbon Dioxide 41 H* BUN 26 H Creatinine 0.52 L Glucose 109 H Calcium 9.8 Cardiac Enzymes 03/04/21 Range/Units 10:04 Troponin I 0.080 H* (0-0.045) ng/ml Liver Function 03/04/21 Range/Units 10:04 Total Bilirubin 1.0 (0.2-1) mg/dl AST 17 (15-37) U/L ALT 14 (12-78) U/L Alkaline Phosphatase 67 (45-117) U/L Albumin 3.7 (3.4-5.0) gm/dl Diagnostic Findings Chest X-Ray 03/04/21 09:35 XR chest 1V portable HISTORY: 75 years-old Female Dyspnea acute shortness of breath COMPARISON: CTA chest 01/19/2021, chest radiograph 01/19/2021 TECHNIQUE: Portable AP view of the chest FINDINGS: Cardiac silhouette is enlarged. Chronic interstitial coarsening of the lung bases. There is no pneumothorax, pleural effusion, airspace consolidation or overt pulmonary edema. Degenerative changes of the shoulders and spine. IMPRESSION: No acute process. ACT 112: Negative or not required by law. The above report was generated using voice recognition software. It may contain grammatical, syntax or spelling errors. Electronically signed by: Zach Perez M.D. 03/04/2021 10:05 AM Supervising Physician Co-Signing Physician Notes Admitting addendum: Patient seen and examined, care coordinated with Sommer Cherry PA-C. This is a 75-year-old female with underlying advanced COPD/chronic respiratory failure , noncompliant with CPAP/BiPAP. Brought to ER by EMS, as patient was found to be unresponsive severely hypoxemic SPO2 in 60s No information could be obtained for patient as patient remains lethargic, on BiPAP Information obtained from ER signout,/EMS In the ER patient was on BiPAP, somnolent, barely arousable with sternal rub. Initially was placed on high flow O2, as patient refused BiPAP mask Received IV Ativan for agitation Patient became very somnolent, lethargic, placed on BiPAP Patient noted to be in sinus tachycardia on admission heart rate between 110s to 120 Physical exam: Brief/focused General: Moderately built female on BiPAP, moving her occasionally Lungs, very diminished air entry, Heart: Regular S1 and S2 tachycardic no JVD no lower extremity edema noted Neuro, difficult to assess, patient is barely arousable with sternal rub, moving limbs Assessment and plan Acute chronic hypoxemic respiratory failure with hypoxemia hypercarbia(elevated CO2) Patient is known to [facility] from prior multiple admission with respiratory failure Poor compliance with BiPAP at home Admitted with worsening of respiratory failure, placed on BiPAP Patient will given loading dose of IV Solu-Medrol 125 mg x 1, continue neb treatment Xopenex/avoid albuterol for sinus tachycardia Chest x-ray does not show any acute infiltrate, will put patient on empiric IV doxycycline given underlying severe COPD increased risk for secondary pulmonary infection Pulmonology consulted Lethargy/metabolic encephalopathy Possible secondary to hypoxia/respiratory failure Avoid narcotics, benzodiazepine can cause respiratory depression Continue on BiPAP Strict n.p.o. till patient is awake and alert Sinus tachycardia Possible secondary to respiratory failure/hypoxia Ordered for IV schedule Lopressor, hold p.o. metoprolol patient is n.p.o. Monitor in PCU Mild elevation of troponin Possible secondary to respiratory failure hypoxia Serial troponin level ordered, resting echo Hypertension: Hold all p.o. meds as patient is very lethargic, obtunded high aspiration risk IV Lopressor as above, as needed IV hydralazine for SBP more than 160 Failure to thrive: Patient lives alone, with no friends or family support. Per EMS: Patient's house is found to be incompletely disarray, very filthy/pt w as covered with feaces CODE STATUS: Full code as per recent admission Disposition: To be determined, patient will need PT OT evaluation Social service consulted as patient may need placement, (1) Hypertension Hypertension type: unspecified Qualified Code(s): I10 - Essential (primary) hypertension
--- NOTE | 2021-03-04 11:41 | Electrocardiogram Report ---
Test Reason : Blood Pressure : / mmHG Vent. Rate : 137 BPM Atrial Rate : 137 BPM P-R Int : 120 ms QRS Dur : 082 ms QT Int : 306 ms P-R-T Axes : 062 009 066 degrees QTc Int : 462 ms Sinus tachycardia with Premature atrial complexes Nonspecific ST abnormality Abnormal ECG When compared with ECG of 19-JAN-2021 09:51, Premature atrial complexes are now Present Confirmed by Paulie Torres ([id number]) on 03/04/2021 11:41:22 AM Referred By: REFERRED SELF Confirmed By:Jeffrey Torres
[2021-03-04] MEDS ORDERED: ONDANSETRON INJ 2 MG/ML 2 ML VIAL IV PRN (11:54)
[2021-03-04] MEDS ORDERED: methylPREDNISolone 125 MG/2 ML VIAL IV STA (12:10)
[2021-03-04] MEDS ORDERED: IPRATROPIUM BROMIDE NEB SOLN 0.02% 2.5 ML VIAL INH SCH (12:15)
[2021-03-04] MEDS ORDERED: LEVALBUTEROL 1.25MG/0.5ML NEB INH SCH (12:15)
[2021-03-04 12:16] LABS: Base Excess ABG 19.2 mEq/L (-9-1.8); HCO3 ABG 48 mmol/L (19-24); Oxygen Saturation ABG 91.9 % (90-95); PCO2 ABG 82 mmHg (35-46); PO2 ABG 57 mmHg (80-95); pH ABG 7.39 (7.35-7.45)
[2021-03-04 12:20] LABS: Allen Test Pos (Pos)
--- NOTE | 2021-03-04 12:30 | Communication Note ---
Date of Service: March 04, 2021 Admitting addendum: Patient seen and examined, care coordinated with Sommer Cherry PA-C. This is a 75-year-old female with underlying advanced COPD/chronic respiratory failure , noncompliant with CPAP/BiPAP. Brought to ER by EMS, as patient was found to be unresponsive severely hypoxemic SPO2 in 60s No information could be obtained for patient as patient remains lethargic, on BiPAP Information obtained from ER signout,/EMS In the ER patient was on BiPAP, somnolent, barely arousable with sternal rub. Initially was placed on high flow O2, as patient refused BiPAP mask Received IV Ativan for agitation Patient became very somnolent, lethargic, placed on BiPAP Patient noted to be in sinus tachycardia on admission heart rate between 110s to 120 Physical exam: Brief/focused General: Moderately built female on BiPAP, moving her occasionally Lungs, very diminished air entry, Heart: Regular S1 and S2 tachycardic no JVD no lower extremity edema noted Neuro, difficult to assess, patient is barely arousable with sternal rub, moving limbs Assessment and plan Acute chronic hypoxemic respiratory failure with hypoxemia hypercarbia(elevated CO2) Patient is known to [facility] from prior multiple admission with respiratory failure Poor compliance with BiPAP at home Admitted with worsening of respiratory failure, placed on BiPAP Patient will given loading dose of IV Solu-Medrol 125 mg x 1, continue neb treatment Xopenex/avoid albuterol for sinus tachycardia Chest x-ray does not show any acute infiltrate, will put patient on empiric IV doxycycline given underlying severe COPD increased risk for secondary pulmonary infection Pulmonology consulted Lethargy/metabolic encephalopathy Possible secondary to hypoxia/respiratory failure Avoid narcotics, benzodiazepine can cause respiratory depression Continue on BiPAP Strict n.p.o. till patient is awake and alert Sinus tachycardia Possible secondary to respiratory failure/hypoxia Ordered for IV schedule Lopressor, hold p.o. metoprolol patient is n.p.o. Monitor in PCU Mild elevation of troponin Possible secondary to respiratory failure hypoxia Serial troponin level ordered, resting echo Hypertension: Hold all p.o. meds as patient is very lethargic, obtunded high aspiration risk IV Lopressor as above, as needed IV hydralazine for SBP more than 160 Failure to thrive: Patient lives alone, with no friends or family support. Per EMS: Patient's house is found to be incompletely disarray, very filthy,/feces noted on the floor. CODE STATUS: Full code as per recent admission Disposition: To be determined, patient will need PT OT evaluation Social service consulted as patient may need placement, patient's living status found to be in very poor condition,
[2021-03-04 12:33] LABS: iSTAT Arterial Blood Gas HCO3 52 meg/L (19-24); iSTAT Arterial Blood Gas pCO2 80 mmHg (35-46); iSTAT Arterial Blood Gas pH 7.42 (7.35-7.45); iSTAT Arterial Blood Gas pO2 59 mmHg (80-95); iSTAT Carbon Dioxide > 50 mmol/L (24-31); iSTAT Hematocrit 37 % (37-47); iSTAT Hemoglobin 12.6 g/dl (12.0-16.0); iSTAT Potassium 3.9 mmol/L (3.3-5.0); iSTAT Sodium 139 mmol/L (135-144)
[2021-03-04] MEDS ORDERED: hydrALAZINE HCL 20 MG/ML VIAL IV PRN (13:07)
--- NOTE | 2021-03-04 13:29 | Critical Care Consultation ---
Date of Consultation March 04, 2021 Assessment & Plan (1) Chronic respiratory failure with hypoxia and hypercapnia: (2) COPD exacerbation: Impression: 75-year-old female with history of hypoxemic and hypercarbic respiratory failure and severe obstructive lung disease who reportedly is noncompliant with BiPAP. She is followed by HARLEY Chauhan in the outpatient setting. She was found altered and brought to the emergency room. Blood gas demonstrated acute on chronic hypercarbic and she was placed on BiPAP. It appears that there was not much else done to evaluate her neurological status. She did receive Ativan in the emergency room. Recommendations: 1. Encephalopathy: The patient's degree of encephalopathy appears to be out of proportion to her CO2 retention as her pH is not significantly abnormal. Unclear if this could be related to medications. Other etiologies including stroke, intracerebral hemorrhage, toxic ingestion, metabolic encephalopathy, hepatic encephalopathy, would all be in the differential as well as seizure. Will defer additional neurological work-up to the patient's primary service. 2. COPD: The patient does not appear overtly bronchospastic currently and has no increased work of breathing. She is on BiPAP and achieving adequate tidal volumes currently. Do not think that there is an indication for steroids. We will continue bronchodilators as needed. No indication for antimicrobial agents currently other than a azithromycin for acute exacerbation of COPD. 3. Hypercarbic respiratory failure: Continue BiPAP. The patient CO2 appears to be correcting appropriately. The patient has been reluctant to consider use of this in the long-term. Palliative care consultation is recommended given the patient's advanced obstructive lung disease and reluctance to pursue appropriate therapies. 4. Recommend readdressing CODE STATUS. If the patient is not interested in pursuing recommended therapies, aggressive therapy such as intubation, mechanical ventilation and potential tracheostomy would not appear to be consistent with the patient's previously expressed wishes. Again defer to primary care and potential palliative consultation. We will continue to follow with you. Her respiratory status appears reasonably well compensated currently. Pt may require ICU care depending on clinical response and additional work up. Feel free to contact us with questions or concerns. History of Present Illness Attending Physician: Flora Taylor MD History of Present Illness Asked by hospitalist to evaluate this patient with hypercarbic respiratory failure. History is obtained from review electronic medical record. The patient is obtunded and unable to provide any history. Allergies Allergy/AdvReac Type Severity Reaction Status Date / Time duloxetine [From Cymbalta] Allergy Mild Rash Verified 03/04/21 11:16 naproxen AdvReac Mild GI SYMPTOMS Verified 03/04/21 11:16 Home Medications Medication Instructions Recorded Confirmed Type albuterol sulfate [Ventolin HFA] 2 puff INHALATION Q4H PRN 12/14/18 03/04/21 History atorvastatin 40 mg PO QAM 12/14/18 03/04/21 History losartan 25 mg PO QAM 12/14/18 03/04/21 History magnesium oxide 400 mg PO QAM 02/13/19 03/04/21 History metoprolol succinate 50 mg PO QAM 04/22/19 03/04/21 History ipratropium 0.5 mg-albuterol 3 mg 3 ml INHALATION QID PRN #360 ml 09/10/19 03/04/21 Rx (2.5 mg base)/3 mL nebulization soln Oxygen Home #1 ea 11/05/19 01/19/21 Rx diclofenac sodium 1 % topical gel 1 ea TOP UD PRN 01/22/20 03/04/21 History tramadol 50 mg tablet 50 mg PO Q6H PRN 01/22/20 03/04/21 History roflumilast 250 mcg tablet 250 mcg PO QAM #90 tab 06/30/20 03/04/21 Rx aspirin 81 mg PO DAILY 01/19/21 03/04/21 History docusate sodium 100 mg PO BID 01/19/21 03/04/21 History budesonide-formoterol 2 puffs INH BID #10.2 gm 01/21/21 03/04/21 Rx pantoprazole 40 mg PO DAILY #30 tab 01/21/21 03/04/21 Rx polyethylene glycol 3350 [Miralax] 17 g PO DAILY PRN #30 ea 01/21/21 03/04/21 Rx prednisone 10 mg PO DAILY #3 tab 01/21/21 03/04/21 Rx multivit with min-folic acid 2 tab PO DAILY 03/04/21 03/04/21 History [Multivitamin Gummies] Patient History Medical History BCC (basal cell carcinoma of skin) on left side of face---"s/p MOHS surgery" Chronic diastolic heart failure Chronic respiratory failure with hypoxia, on home O2 therapy OXYGEN 3L/MIN VIA NC COPD (chronic obstructive pulmonary disease) inhaler daily/prn and nebulizer prn Degenerative disc disease Dyslipidemia Fibromyalgia GERD (gastroesophageal reflux disease) Hypertension On home oxygen therapy 3L N/C at all times Osteoporosis Sinus tachycardia SOB (shortness of breath) on exertion Tremor of both hands Surgical History History of bilateral cataract extraction History of carpal tunnel surgery of right wrist History of colonoscopy with polypectomy History of esophagogastroduodenoscopy (EGD) History of left breast biopsy benign History of mandibular surgery jaw fx History of repair of left rotator cuff History of repair of right rotator cuff History of tooth extraction S/P Mohs surgery for basal cell carcinoma Status post appendectomy Status post excision of lipoma removed off neck x2 Status post hysterectomy Status post repair of ventral hernia Family History Grandfather (Maternal) Family hx of colon cancer Father FH: kidney cancer Family/Other Family history of diabetes mellitus nephew Other Kidney disease Lung disease No family history of adverse response to anesthesia Social History Smoking Status: Former smoker Tobacco Type: Cigarettes Cigarettes Per Day: unsure when she quit; Second Hand Exposure: No; Hx Alcohol Use: No Hx Substance Use: No Preferred Language: Cymraes Communication Ability: Effective Market Research Consultant Required: No Beliefs That Will Affect Care: None marital status: / Current Living Situation: Alone current occupational status: retired How many Children do You have: 3 Feels Safe at Home: Yes Assistive Devices: Cane Review of Systems Review of Systems: Unobtainable due to reduced consciousness Physical Exam Constitutional: well developed and + lethargic; not ill appearing Neck: trachea midline, no thyromegaly Respiratory: normal respiratory effort Auscultation: no crackles and no wheezes Cardiovascular: RRR, no murmur, no edema Gastrointestinal (Abdomen): normal bowel sounds, soft, nontender, no hepatosplenomegaly Musculoskeletal: Extremities: extremities normal to inspection Skin: no rashes, warm and dry Neurologic: obtunded Lymphatic: no cervical lymphadenopathy Results & Data Results & Data ([facility]) Vital Signs (Past 12 Hours) Vital Signs Temp Pulse Pulse Resp BP BP Pulse Ox 03/04/21 13:09 36.5 C 100 H 18 148/89 H 97 03/04/21 12:49 102 H 27 H 90 03/04/21 12:37 173/119 H 03/04/21 12:30 105 H 27 H 155/107 H 95 03/04/21 12:20 93 H 24 94 03/04/21 12:10 105 H 32 H 177/101 H 95 03/04/21 12:07 128 H 163/101 H 03/04/21 12:02 128 H 27 H 136/101 H 93 03/04/21 12:00 121 H 22 163/101 H 94 03/04/21 11:50 125 H 28 H 95 03/04/21 11:40 126 H 26 H 94 03/04/21 11:32 125 H 24 94 03/04/21 11:30 122 H 24 03/04/21 11:20 127 H 20 94 03/04/21 11:10 120 H 24 93 03/04/21 11:00 122 H 25 H 94 03/04/21 10:50 118 H 23 94 03/04/21 10:40 121 H 25 H 94 03/04/21 10:30 123 H 26 H 94 03/04/21 10:20 117 H 25 H 94 03/04/21 10:11 135 H 24 98 03/04/21 10:10 131 H 24 99 03/04/21 10:06 134 H 22 99 03/04/21 10:00 131 H 27 H 99 03/04/21 09:50 138 H 31 H 100 03/04/21 09:42 100 03/04/21 09:41 99 03/04/21 09:40 137 H 25 H 100 03/04/21 09:37 139 H 19 100 03/04/21 09:32 37.4 C 137 H 23 147/97 H 99 03/04/21 09:30 140 H 25 H 147/97 H 100 Critical Care Results & Data Vital Signs (Past 12 Hours) Vital Signs Temp Pulse Pulse Resp BP BP Pulse Ox 03/04/21 13:09 36.5 C 100 H 18 148/89 H 97 03/04/21 12:49 102 H 27 H 90 03/04/21 12:37 173/119 H 03/04/21 12:30 105 H 27 H 155/107 H 95 03/04/21 12:20 93 H 24 94 03/04/21 12:10 105 H 32 H 177/101 H 95 03/04/21 12:07 128 H 163/101 H 03/04/21 12:02 128 H 27 H 136/101 H 93 03/04/21 12:00 121 H 22 163/101 H 94 03/04/21 11:50 125 H 28 H 95 03/04/21 11:40 126 H 26 H 94 03/04/21 11:32 125 H 24 94 03/04/21 11:30 122 H 24 03/04/21 11:20 127 H 20 94 03/04/21 11:10 120 H 24 93 03/04/21 11:00 122 H 25 H 94 03/04/21 10:50 118 H 23 94 03/04/21 10:40 121 H 25 H 94 03/04/21 10:30 123 H 26 H 94 03/04/21 10:20 117 H 25 H 94 03/04/21 10:11 135 H 24 98 03/04/21 10:10 131 H 24 99 03/04/21 10:06 134 H 22 99 03/04/21 10:00 131 H 27 H 99 03/04/21 09:50 138 H 31 H 100 03/04/21 09:42 100 03/04/21 09:41 99 03/04/21 09:40 137 H 25 H 100 03/04/21 09:37 139 H 19 100 03/04/21 09:32 37.4 C 137 H 23 147/97 H 99 03/04/21 09:30 140 H 25 H 147/97 H 100 Lab & Micro Results (Past 24 Hours) RBC 4.14 M/uL (4.2-5.4) L 03/04/21 WBC 8.85 K/uL (4.8-10.8) 03/04/21 Hgb 11.7 g/dL (12.0-16.0) L 03/04/21 Hct 39.2 % (37-47) 03/04/21 MCV 94.7 fL (80-100) 03/04/21 MCH 28.3 pg (25-34) 03/04/21 MCHC 29.8 g/dL (32-36) L 03/04/21 RDW Standard Deviation 47.9 fL (36.4-46.3) H 03/04/21 RDW Coefficient of Variation 13.8 % (11.5-14.5) 03/04/21 Plt Count 212 K/uL (130-400) 03/04/21 MPV 11.0 fL (7.4-10.4) H 03/04/21 Neutrophils (%) (Auto) 85.5 % 03/04/21 Lymphocytes (%) (Auto) 6.2 % 03/04/21 Monocytes # (Auto) 0.66 K/uL (0.11-0.59) H 03/04/21 Eosinophils # (Auto) 0.04 K/uL (0-0.5) 03/04/21 Immature Granulocyte % (Auto) 0.2 % 03/04/21 Neutrophils # (Auto) 7.57 K/uL (1.4-6.5) H 03/04/21 Lymphocytes # (Auto) 0.55 K/uL (1.2-3.4) L 03/04/21 Monocytes # (Auto) 0.66 K/uL (0.11-0.59) H 03/04/21 Eosinophils # (Auto) 0.04 K/uL (0-0.5) 03/04/21 Basophils # (Auto) 0.01 K/uL (0-0.2) 03/04/21 Immature Granulocyte # (Auto) 0.02 K/uL (0.00-0.02) 03/04/21 Na 140 mmol/L (136-145) 03/04/21 K 3.8 mmol/L (3.5-5.1) 03/04/21 Cl 91 mmol/L (98-107) L 03/04/21 CO2 41 mmol/L (21-32) H* 03/04/21 Anion Gap 8.0 (3-11) 03/04/21 BUN 26 mg/dl (7-18) H 03/04/21 Creatinine 0.52 mg/dl (0.6-1.2) L 03/04/21 Estimated GFR ( Amer) 106.8 ml/min 03/04/21 Estimated GFR (Non-Af Amer) 92.2 ml/min 03/04/21 BUN/Creatinine Ratio 49.8 (10-20) H 03/04/21 Glu 109 mg/dl (70-99) H 03/04/21 Ca 9.8 mg/dl (8.5-10.1) 03/04/21 Total Bilirubin 1.0 mg/dl (0.2-1) 03/04/21 AST 17 U/L (15-37) 03/04/21 ALT 14 U/L (12-78) 03/04/21 Alkaline Phosphatase 67 U/L (45-117) 03/04/21 TP 7.6 gm/dl (6.4-8.2) 03/04/21 Albumin 3.7 gm/dl (3.4-5.0) 03/04/21 Globulin 3.9 gm/dl (2.5-4.0) 03/04/21 Albumin/Globulin Ratio 0.9 (0.9-2) 03/04/21 Mg 2.1 mg/dl (1.8-2.4) 03/04/21 10:04 03/04/21 Calcium Level 9.8 mg/dl (8.5-10.1) 03/04/21 10:04 03/04/21 Prothromb Time International Ratio 1.1 (0.9-1.1) 03/04/21 10:04 03/04/21 Blood Gas Barometric Pressure 744.2 mm/Hg 03/04/21 12:03 03/04/21 Arterial Blood pH 7.39 (7.35-7.45) 03/04/21 12:03 03/04/21 Arterial Blood Partial Pressure CO2 82 mmHg (35-46) H 03/04/21 12:03 03/04/21 Arterial Blood Partial Pressure O2 57 mmHg (80-95) L 03/04/21 12:03 03/04/21 Arterial Blood HCO3 48 mmol/L (19-24) H 03/04/21 12:03 03/04/21 Arterial Blood Base Excess 19.2 mEq/L (-9-1.8) H 03/04/21 12:03 03/04/21 Arterial Blood Oxygen Saturation 91.9 % (90-95) 03/04/21 12:03 03/04/21 Blood Gas Oxygen Given 30% BIPAP 03/04/21 12:03 03/04/21 Clarence Test Pos (Pos) 03/04/21 12:03 03/04/21 Blood Gas Barometric Pressure 744.2 mm/Hg 03/04/21 12:03 03/04/21 Diagnostic Findings (Past 24 Hours) Chest X-Ray 03/04/21 09:35 XR chest 1V portable HISTORY: 75 years-old Female Dyspnea acute shortness of breath COMPARISON: CTA chest 01/19/2021, chest radiograph 01/19/2021 TECHNIQUE: Portable AP view of the chest FINDINGS: Cardiac silhouette is enlarged. Chronic interstitial coarsening of the lung bases. There is no pneumothorax, pleural effusion, airspace consolidation or overt pulmonary edema. Degenerative changes of the shoulders and spine. IMPRESSION: No acute process. ACT 112: Negative or not required by law. The above report was generated using voice recognition software. It may contain grammatical, syntax or spelling errors. Electronically signed by: Zach Perez M.D. 03/04/2021 10:05 AM RT Ventilator Mngmt (Last Documented) Ventilator Ordered Settings Respiratory Rate 18 03/04/21 13:09 Fraction of Inspired Oxygen 30 03/04/21 13:09 Ventilator - PT Measurements Respiratory Rate 18 Coding Level of Care Code Critical Care 1st 30-74 mins Diagnoses Chronic respiratory failure with hypoxia and hypercapnia J96.11; J96.12 COPD exacerbation J44.1 Time Spent (min) 45
[2021-03-04] MEDS ORDERED: DOXYCYCLINE HYCLATE 100 MG in DEXTROSE 5% 100 ML IV SCH (14:00)
[2021-03-04] MEDS ORDERED: METOPROLOL TARTRATE 1 MG/ML VIAL IV PRN (14:52)
--- NOTE | 2021-03-04 15:30 | CT Scan Report ---
CT head/brain wo con CLINICAL HISTORY: 75 years-old Female with lathergy. Acutely altered mental status TECHNIQUE: Multiple axial CT images of the head were obtained without contrast. A dose lowering tech nique was utilized adhering to the principles of ALARA. CT DOSE: 537.48 mGy.cm COMPARISON: Head CT 10/02/2020 FINDINGS: Motion degraded exam. No acute intracranial hemorrhage, midline shift, intracranial mass, hydrocephal us, territorial ischemia or abnormal extra-axial collection. Age-related involutional changes. White matter hypodensities suggestive of chronic microvascular ischemic disease. Cerebral vascular and jak scent basal ganglia calcifications. The calvarium is intact. Bilateral cataract repair. The paranasal sinuses, mastoid air cells, and mid dle ear cavities are clear. IMPRESSION: No acute intracranial abnormality. ACT 112: Negative or not required by law. The above report was generated using voice recognition software. It may contain grammatical, syntax o r spelling errors. Electronically signed by: Zach Perez M.D. 03/04/2021 3:28 PM
[2021-03-04] MEDS: LEVALBUTEROL 1.25MG/0.5ML NEB INH SCH ×3 (15:37→22:33)
[2021-03-04] MEDS: IPRATROPIUM BROMIDE NEB SOLN 0.02% 2.5 ML VIAL INH SCH ×3 (15:37→22:33)
[2021-03-04] MEDS: AZITHROMYCIN 500 MG in DEXTROSE 5% 250 ML IV SCH (15:46)
[2021-03-04] MEDS ORDERED: XOPENEX/ATROVENT 1.25mg/0.5MG NEB COMBO NEB SCH (16:00)
[2021-03-04] MEDS ORDERED: METOPROLOL TARTRATE 1 MG/ML VIAL IV SCH (18:00)
[2021-03-04] MEDS: methylPREDNISolone 40 MG in SYRINGE 0 ML IV SCH (18:02)
[2021-03-05] MEDS ORDERED: SODIUM CHLORIDE 0.9% 500 ML IV SCH (00:15)
[2021-03-05] MEDS ORDERED: LACTATED RINGER'S 1,000 ML IV ONE (00:17)
[2021-03-05] MEDS: methylPREDNISolone 40 MG in SYRINGE 0 ML IV SCH ×2 (00:40→06:04)
[2021-03-05] MEDS: LEVALBUTEROL 1.25MG/0.5ML NEB INH SCH ×5 (03:32→19:16)
[2021-03-05] MEDS: IPRATROPIUM BROMIDE NEB SOLN 0.02% 2.5 ML VIAL INH SCH ×5 (03:32→19:16)
[2021-03-05 05:46] LABS: Amphetamines+Metham, Urine Neg (Neg); Barbiturates, Urine Neg (Neg); Benzodiazepine, Urine Neg (Neg); Cocaine, Urine Neg (Neg); MDMA (Ecstacy), Urine Neg (Neg); Methadone, Urine Neg (Neg); Opiate, Urine Neg (Neg); Phencyclidine, Urine Neg (Neg)
[2021-03-05 06:22] LABS: Appearance Urine Clear (Clear); Bacteria Urine Automated Negative (Negative); Bilirubin Urine Negative (Negative); Blood Urine Negative (Negative); Color Urine Dark Yellow; Epithelial Cell Urine Auto >30 /lpf (0-5); Glucose Urine UA Negative (Negative); Ketones Urine 4+ (Negative); Leukocyte Esterase Urine Negative (Negative); Nitrite Urine Negative (Negative); Protein Urine Trace (Negative); RBC Urine Automated 0-4 /hpf (0-4); Specific Gravity Urine 1.025 (1.000-1.030); Urobilinogen Urine Negative (Negative); pH Urine 6.5 (4.5-7.5)
[2021-03-05 06:47] LABS: Mucus Urine Present (None Prsent)
[2021-03-05 07:51] LABS: Hematocrit (blood only) 39.5 % (37-47); Mean Corpuscular Hgb Conc 30.4 g/dL (32-36); Mean Corpuscular Volume 92.3 fL (80-100); Mean Platelet Volume 11.6 fL (7.4-10.4); Platelet Count 219 K/uL (130-400); RDW Coefficient of Variation 13.8 % (11.5-14.5); RDW Standard Deviation 46.6 fL (36.4-46.3); Red Blood Count 4.28 M/uL (4.2-5.4); White Blood Count 7.28 K/uL (4.8-10.8)
[2021-03-05 08:19] LABS: BUN Creatinine Ratio 41.8 (10-20); Calcium 9.8 mg/dl (8.5-10.1); Creatinine Clr Calc Pharmacy 70.1 ml/min; Est GFR (Non-African American) 88.9 ml/min; Potassium 3.6 mmol/L (3.5-5.1)
--- NOTE | 2021-03-05 10:42 | Pulmonology Progress Note ---
Date of Service March 05, 2021 Assessment & Plan (1) Acute metabolic encephalopathy: (2) COPD (chronic obstructive pulmonary disease): (3) Chronic respiratory failure with hypoxia and hypercapnia: Impression: 75-year-old female with history of hypoxemic and hypercarbic respiratory failure and severe obstructive lung disease who reportedly is noncompliant with BiPAP. She is followed by HARLEY Chauhan in the outpatient setting. She was found altered and brought to the emergency room. Blood gas demonstrated acute on chronic hypercarbic and she was placed on BiPAP. It appears that there was not much else done to evaluate her neurological status. She did receive Ativan in the emergency room. Recommendations: 1. Encephalopathy: She appears improved this morning. Ammonia levels and CT of the head were unremarkable. Additional work-up per the patient's primary service. 2. COPD: The patient does not appear overtly bronchospastic currently and has no increased work of breathing. Do not think that there is an indication for steroids. We will continue bronchodilators as needed. No indication for antimicrobial agents currently other than a azithromycin for acute exacerbation of COPD. 3. Hypercarbic respiratory failure: She appears better currently. Would recommend nightly use of BiPAP or ASV if the patient can qualify. She is not been compliant in the past but perhaps this time around she will be compliant with it in the future. Recommend discussing with case management to see whether or not this can be set up for the patient as an outpatient and she can follow-up with HARLEY Chauhan in the pulmonary clinic. Ok to advance diet 4. Management of the patient's other medical issues per the primary service. We will continue to follow. Feel free to contact us if we can be of additional assistance Admission and Anticipated Discharge Date Admission Date: March 04, 2021 Subjective Patient awake and alert this morning off BiPAP. She offers no complaints. She states her breathing is fine. She is asking about eating. She does not report cough sputum production or wheezing. Review of Systems Review of Systems: All systems reviewed & are unremarkable except as noted in HPI & below Physical Exam Constitutional: well developed; not ill appearing Neck: trachea midline, no thyromegaly Respiratory: normal respiratory effort Auscultation: no crackles and no wheezes Cardiovascular: RRR, no murmur, no edema Gastrointestinal (Abdomen): normal bowel sounds, soft, nontender, no hepatosplenomegaly Musculoskeletal: Extremities: extremities normal to inspection Skin: no rashes, warm and dry Lymphatic: no cervical lymphadenopathy Results & Data Results & Data ([facility]) Vital Signs (Past 12 Hours) Vital Signs Temp Pulse Pulse Resp BP Pulse Ox 03/05/21 08:13 36.9 C 104 H 16 149/76 H 96 03/05/21 08:00 107 H 03/05/21 07:09 113 H 24 100 03/05/21 03:57 36.8 C 128 H 19 158/95 H 100 03/05/21 03:33 108 H 108 H 20 98 03/05/21 01:30 93 03/05/21 00:00 92 H 03/04/21 23:32 36.8 C 109 H 20 138/79 92 03/04/21 22:52 108 H 28 H 97 Laboratory Results 03/05/21 07:12 03/05/21 07:12 Ammonia less than 10 Diagnostic Findings No new imaging PG Care Time/CCT Total # of Minutes Spent Total Time Spent with Patient: Total time spent is greater than 50% in coordination of care (as documented) at patient's floor/unit and/or counseling patient: Coding Level of Care Code 87150 Subseq Hosp Care Lvl 3 Diagnoses Acute metabolic encephalopathy G93.41 COPD (chronic obstructive pulmonary disease) J44.9 Chronic respiratory failure with hypoxia and hypercapnia J96.11; J96.12 Time Spent (min) 35
[2021-03-05] MEDS ORDERED: POLYETHYLENE (MIRALAX) 17 GM PACK PO PRN (12:20)
[2021-03-05] MEDS ORDERED: DICLOFENAC SOD 1% GEL 100 GM TUBE EXT PRN (12:20)
[2021-03-05] MEDS: ROFLUMILAST 500 MCG TAB PO SCH (13:17)
[2021-03-05] MEDS: LOSARTAN POTASSIUM 25 MG TAB PO SCH (13:17)
[2021-03-05] MEDS: ATORVASTATIN 40 MG TAB PO SCH (13:17)
[2021-03-05] MEDS: ASPIRIN 81 MG ECTAB PO SCH (13:17)
[2021-03-05] MEDS: METOPROLOL SUCC 50MG EXT REL TAB PO SCH (13:17)
[2021-03-05] MEDS: MAGNESIUM OXIDE 400 MG TAB PO SCH (13:17)
[2021-03-05] MEDS: PANTOprazole 40 MG TAB PO SCH (13:17)
[2021-03-05] MEDS: traMADol HCL 50 MG TABLET PO PRN (13:33)
--- NOTE | 2021-03-05 14:47 | Hospitalist Progress Note ---
Date of Service March 05, 2021 Assessment & Plan (1) Acute on chronic respiratory failure with hypoxia and hypercapnia: (2) Acute metabolic encephalopathy: Patient is a 75 yr female with H/O chronic hypoxic and hypercapnic respiratory failure secondary to COPD and obesity hypoventilation syndrome, chronic diastolic CHF, chronic sinus tachycardia, HTN, HLD, fibromyalgia, GERD, ambulatory dysfunction who presents to ED with increased shortness of breath. Acute on chronic respiratory failure with hypoxia, hypercarbia Acute metabolic encephalopathy secondary to above Acute COPD Exacerbation Noncompliant with BiPAP use Chronic Oxygen dependency -CT Head:No acute intracranial abnormality. -CXR:No acute process. Normal ammonia level Follows with Pulmonology as outpatient Mental status improved Continue azithromycin Taper down steroids Continue bronchodilators Appreciate pulmonary input We will need to continue BiPAP at bedtime Aspiration precautions (3) COPD exacerbation: Mild Troponin Elevation Likely demand ischemia in setting of Hypoxia Denies chest pain Echo no regional wall motion abnormality (4) Sinus tachycardia: Chronic condition with baseline HR ~ 105 HR 120s-130s initially in setting of respiratory failure, bronchodilators Scheduled IV schedule Lopressor, hold p.o. metoprolol patient is n.p.o. Improved HR to baseline 100 Monitor in PCU (5) Elevated troponin: Mild initial elevation of troponin at 0.080 No ischemic changes on EKG Possibly secondary to respiratory failure hypoxia, sinus tachycardia Serial troponin level ordered, resting echo (6) Hypertension: Resume home medications Monitor blood pressure Failure to thrive Difficult social disposition in the past Limited support from friends or family Management help with discharge planning Fibromyalgia on tramadol as needed GERD Continue PPI CODE STATUS: Full code Admission and Anticipated Discharge Date Admission Date: March 04, 2021 Subjective Patient is seen and examined at bedside States having cough with clear expectoration Denies any dyspnea, dizziness, nausea, abdominal pain, chest pain States feeling drowsy intermittently Offers no other complaints Review of Systems Review of Systems: All systems reviewed & are unremarkable except as noted in HPI & below Physical Exam Physical Exam: Physical Exam: Vitals signs as noted above General Appearance:Moderately built and nourished, no apparent distress Head: normocephalic, Atraumatic Eyes: normal inspection, EOMI Neck: supple, Trachea midline Respiratory/Chest: Decreased breath sounds, CTA Cardiovascular: S1, S2,+Tachycardia, No murmur Abdomen/GI:Soft, Non tender, Bowel sounds present Extremities/Musculoskeletal:normal inspection, no edema Neurologic/Psych:AAOX3, grossly no focal neurological deficits Skin: normal color, warm Results & Data Results & Data ([facility]) Vital Signs (Past 12 Hours) Vital Signs Temp Pulse Pulse Resp BP Pulse Ox 03/05/21 12:00 36.5 C 100 H 18 139/70 98 03/05/21 11:06 97 H 18 100 03/05/21 08:13 36.9 C 104 H 16 149/76 H 96 03/05/21 08:00 107 H 03/05/21 07:09 113 H 24 100 03/05/21 03:57 36.8 C 128 H 19 158/95 H 100 03/05/21 03:33 108 H 108 H 20 98 Laboratory Results Short CBC 03/05/21 Range/Units 07:12 WBC 7.28 (4.8-10.8) K/uL Hgb 12.0 (12.0-16.0) g/dL Hct 39.5 (37-47) % Plt Count 219 (130-400) K/uL BMP 03/05/21 07:12 Sodium 138 Potassium 3.6 Chloride 90 L Carbon Dioxide 45 H* BUN 24 H Creatinine 0.58 L Glucose 131 H Calcium 9.8 Cardiac Enzymes 03/04/21 03/04/21 Range/Units 16:36 22:44 Troponin I 0.267 H* 0.234 H* (0-0.045) ng/ml Urine 03/05/21 Range/Units 05:05 Urine Color Dark Yellow Urine Appearance Clear (Clear) Urine pH 6.5 (4.5-7.5) Ur Specific Ledbetter 1.025 (1.000-1.030) Urine Protein Trace H (Negative) Urine Glucose (UA) Negative (Negative) (1) Hypertension Hypertension type: unspecified Qualified Code(s): I10 - Essential (primary) hypertension
[2021-03-05] MEDS: AZITHROMYCIN 500 MG in DEXTROSE 5% 250 ML IV SCH (16:08)
[2021-03-05] MEDS: DOCUSATE SODIUM 100 MG CAP PO SCH (21:12)
[2021-03-06] MEDS: IPRATROPIUM BROMIDE NEB SOLN 0.02% 2.5 ML VIAL INH SCH ×7 (03:07→22:18)
[2021-03-06] MEDS: LEVALBUTEROL 1.25MG/0.5ML NEB INH SCH ×7 (03:07→22:18)
[2021-03-06] MEDS: traMADol HCL 50 MG TABLET PO PRN ×3 (05:29→23:29)
--- NOTE | 2021-03-06 06:08 | Electrocardiogram Report ---
Test Reason : Blood Pressure : / mmHG Vent. Rate : 122 BPM Atrial Rate : 122 BPM P-R Int : 122 ms QRS Dur : 082 ms QT Int : 340 ms P-R-T Axes : 062 -11 058 degrees QTc Int : 484 ms Sinus tachycardia Otherwise normal ECG When compared with ECG of 04-MAR-2021 09:51, Premature atrial complexes are no longer Present Confirmed by Salvador Silverio ([id number]) on 03/06/2021 6:07:51 AM Referred By: REFERRED SELF Confirmed By:Salvador Silverio
[2021-03-06 08:19] LABS: BUN Creatinine Ratio 41.9 (10-20); Calcium 9.4 mg/dl (8.5-10.1); Creatinine Clr Calc Pharmacy 61.6 ml/min; Est GFR (African American) 98.8 ml/min; Est GFR (Non-African American) 85.2 ml/min; Magnesium 2.2 mg/dl (1.8-2.4); Potassium 3.6 mmol/L (3.5-5.1)
[2021-03-06 08:39] LABS: Hematocrit (blood only) 39.9 % (37-47); Hemoglobin 12.1 g/dL (12.0-16.0); Mean Corpuscular Hemoglobin 27.9 pg (25-34); Mean Corpuscular Hgb Conc 30.3 g/dL (32-36); Mean Corpuscular Volume 91.9 fL (80-100); Mean Platelet Volume 11.6 fL (7.4-10.4); Platelet Count 274 K/uL (130-400); RDW Coefficient of Variation 14.2 % (11.5-14.5); RDW Standard Deviation 47.6 fL (36.4-46.3); Red Blood Count 4.34 M/uL (4.2-5.4); White Blood Count 18.02 K/uL (4.8-10.8)
[2021-03-06] MEDS: ROFLUMILAST 500 MCG TAB PO SCH (09:00)
[2021-03-06] MEDS: ASPIRIN 81 MG ECTAB PO SCH (09:00)
[2021-03-06] MEDS: PANTOprazole 40 MG TAB PO SCH (09:00)
[2021-03-06] MEDS ORDERED: predniSONE 20 MG TAB PO SCH (09:00)
[2021-03-06] MEDS: FLUTICASONE/VILANTEROL 100/25MCG 14 PUFFS/INHALER INH SCH (09:00)
[2021-03-06] MEDS: ATORVASTATIN 40 MG TAB PO SCH (09:00)
[2021-03-06] MEDS: DOCUSATE SODIUM 100 MG CAP PO SCH ×2 (09:00→20:48)
[2021-03-06] MEDS: METOPROLOL SUCC 50MG EXT REL TAB PO SCH (09:00)
[2021-03-06] MEDS: MAGNESIUM OXIDE 400 MG TAB PO SCH (09:00)
--- NOTE | 2021-03-06 10:42 | Pulmonology Progress Note ---
Date of Service March 06, 2021 Assessment & Plan (1) Acute metabolic encephalopathy: (2) COPD (chronic obstructive pulmonary disease): (3) Chronic respiratory failure with hypoxia and hypercapnia: Impression: 75-year-old female with history of hypoxemic and hypercarbic respiratory failure and severe obstructive lung disease who reportedly is noncompliant with BiPAP. She is followed by HARLEY Chauhan in the outpatient setting. She was found altered and brought to the emergency room. Blood gas demonstrated acute on chronic hypercarbic and she was placed on BiPAP. It appears that there was not much else done to evaluate her neurological status. She did receive Ativan in the emergency room. Recommendations: 1. Encephalopathy: She appears back to baseline today. Ammonia levels and CT of the head were unremarkable. 2. COPD: The patient does not appear overtly bronchospastic currently and has no increased work of breathing. Do not think that there is an indication for steroids. We will continue bronchodilators as needed. No indication for antimicrobial agents currently other than a azithromycin for acute exacerbation of COPD. She states she is establishing care with [facility] pulmonary so she should follow-up with them at discharge. 3. Hypercarbic respiratory failure: She appears better currently. Would recommend nightly use of BiPAP or ASV if the patient can qualify. She is not been compliant in the past but perhaps this time around she will be compliant with it in the future. Recommend discussing with case management to see whether or not this can be set up for the patient as an outpatient and she can follow-up with [facility] pulmonary discharge 4. Hypoxemia: Continue supplemental oxygen titrated to keep saturations at or around 88% Patient appears significantly improved at this point time. She could potentially be discharged from a pulmonary perspective. Discussed with hospitalist at bedside. Pulmonary will sign off at this point time. Feel free to contact us if we can be of additional assistance Admission and Anticipated Discharge Date Admission Date: March 04, 2021 Physical Exam Constitutional: well developed; not ill appearing Neck: trachea midline, no thyromegaly Respiratory: normal respiratory effort Auscultation: no crackles and no wheezes Cardiovascular: RRR, no murmur, no edema Gastrointestinal (Abdomen): normal bowel sounds, soft, nontender, no hepatosplenomegaly Musculoskeletal: Extremities: extremities normal to inspection Skin: no rashes, warm and dry Lymphatic: no cervical lymphadenopathy Results & Data Results & Data ([facility]) Vital Signs (Past 12 Hours) Vital Signs Temp Pulse Pulse Resp BP Pulse Ox 03/06/21 08:02 37.0 C 75 18 93/60 L 98 03/06/21 06:53 65 16 97 03/06/21 03:47 36.8 C 84 20 102/72 98 03/06/21 03:21 69 17 100 03/06/21 00:00 100 H 03/05/21 23:39 36.8 C 92 H 19 140/67 97 03/05/21 22:44 104 H 28 H 97 Laboratory Results 03/06/21 07:26 03/06/21 07:26 Diagnostic Findings No new imaging PG Care Time/CCT Total # of Minutes Spent Total Time Spent with Patient: Total time spent is greater than 50% in coordination of care (as documented) at patient's floor/unit and/or counseling patient: Coding Level of Care Code 99122 Subseq Hosp Care Lvl 2 Diagnoses Acute metabolic encephalopathy G93.41 COPD (chronic obstructive pulmonary disease) J44.9 Chronic respiratory failure with hypoxia and hypercapnia J96.11; J96.12
[2021-03-06] MEDS: AZITHROMYCIN 500 MG in DEXTROSE 5% 250 ML IV SCH (14:41)
--- NOTE | 2021-03-06 15:35 | Hospitalist Progress Note ---
Date of Service March 06, 2021 Assessment & Plan (1) Acute on chronic respiratory failure with hypoxia and hypercapnia: (2) Acute metabolic encephalopathy: Patient is a 75 yr female with H/O chronic hypoxic and hypercapnic respiratory failure secondary to COPD and obesity hypoventilation syndrome, chronic diastolic CHF, chronic sinus tachycardia, HTN, HLD, fibromyalgia, GERD, ambulatory dysfunction who presents to ED with increased shortness of breath. Acute on chronic respiratory failure with hypoxia, hypercarbia Acute metabolic encephalopathy secondary to above Acute COPD Exacerbation ? Noncompliant with BiPAP use in the past Chronic Oxygen dependency--on 2 liters at baseline -CT Head:No acute intracranial abnormality. -CXR:No acute process. Normal ammonia level Continue azithromycin Taper down steroids Continue bronchodilators Appreciate pulmonary input Aspiration precautions Continue BiPAP at bedtime Titrate oxygen to keep saturations 88 to 92% Mental status back to baseline Needs follow-up with pulmonology upon discharge Leukocytosis secondary to steroids (3) COPD exacerbation: Management as above (4) Sinus tachycardia: Continue metoprolol (5) Elevated troponin: Mild Troponin Elevation Likely demand ischemia in setting of Hypoxia Denies chest pain Echo no regional wall motion abnormality (6) Hypertension: Continue home medications Failure to thrive Difficult social disposition in the past Limited support from friends or family Case Management to help with discharge planning Patient lives alone Grandson helps with some chores Fibromyalgia on tramadol as needed GERD Continue PPI CODE STATUS: Full code Admission and Anticipated Discharge Date Admission Date: March 04, 2021 Subjective Patient is seen and examined at bedside Mental status back to baseline Less cough today Denies any shortness of breath, chest pain Discussed with pulmonology today Review of Systems Review of Systems: All systems reviewed & are unremarkable except as noted in HPI & below Physical Exam Physical Exam: Physical Exam: Vitals signs as noted above General Appearance:Moderately built and nourished, no apparent distress Head: normocephalic, Atraumatic Eyes: normal inspection, EOMI Neck: supple, Trachea midline Respiratory/Chest: Decreased breath sounds, scattered expiratory wheezes Cardiovascular: S1, S2,+Tachycardia, No murmur Abdomen/GI:Soft, Non tender, Bowel sounds present Extremities/Musculoskeletal:normal inspection, no edema Neurologic/Psych:AAOX3, grossly no focal neurological deficits Skin: normal color, warm Results & Data Results [facility]) Vital Signs (Past 12 Hours) Vital Signs Temp Pulse Resp BP Pulse Ox Pulse Ox 03/06/21 14:49 79 18 99 03/06/21 13:00 93 03/06/21 11:01 76 22 98 03/06/21 11:00 95 03/06/21 08:02 37.0 C 75 18 93/60 L 98 03/06/21 06:53 65 16 97 03/06/21 03:47 36.8 C 84 20 102/72 98 Laboratory Results Short CBC 03/06/21 Range/Units 07:26 WBC 18.02 H (4.8-10.8) K/uL Hgb 12.1 (12.0-16.0) g/dL Hct 39.9 (37-47) % Plt Count 274 (130-400) K/uL BMP 03/06/21 07:26 Sodium 136 Potassium 3.6 Chloride 93 L Carbon Dioxide 40 H BUN 28 H Creatinine 0.66 Glucose 92 Calcium 9.4 (1) Hypertension Hypertension type: unspecified Qualified Code(s): I10 - Essential (primary) hypertension
[2021-03-07] MEDS: LEVALBUTEROL 1.25MG/0.5ML NEB INH SCH ×6 (04:25→23:01)
[2021-03-07] MEDS: IPRATROPIUM BROMIDE NEB SOLN 0.02% 2.5 ML VIAL INH SCH ×6 (04:25→23:01)
[2021-03-07 06:11] LABS: Hematocrit (blood only) 35.6 % (37-47); Hemoglobin 10.7 g/dL (12.0-16.0); Mean Corpuscular Hemoglobin 27.4 pg (25-34); Mean Corpuscular Hgb Conc 30.1 g/dL (32-36); Mean Corpuscular Volume 91.3 fL (80-100); Mean Platelet Volume 10.8 fL (7.4-10.4); Platelet Count 228 K/uL (130-400); RDW Coefficient of Variation 14.1 % (11.5-14.5); RDW Standard Deviation 46.4 fL (36.4-46.3); White Blood Count 9.74 K/uL (4.8-10.8)
[2021-03-07 07:03] LABS: BUN Creatinine Ratio 45.5 (10-20); Calcium 8.9 mg/dl (8.5-10.1); Creatinine Clr Calc Pharmacy 80.3 ml/min; Est GFR (African American) 107.5 ml/min; Est GFR (Non-African American) 92.8 ml/min; Magnesium 2.5 mg/dl (1.8-2.4); Potassium 3.6 mmol/L (3.5-5.1)
[2021-03-07] MEDS: FLUTICASONE/VILANTEROL 100/25MCG 14 PUFFS/INHALER INH SCH (07:33)
[2021-03-07] MEDS: MAGNESIUM OXIDE 400 MG TAB PO SCH (07:34)
[2021-03-07] MEDS: ASPIRIN 81 MG ECTAB PO SCH (07:34)
[2021-03-07] MEDS: PANTOprazole 40 MG TAB PO SCH (07:34)
[2021-03-07] MEDS: METOPROLOL SUCC 50MG EXT REL TAB PO SCH (07:34)
[2021-03-07] MEDS: ATORVASTATIN 40 MG TAB PO SCH (07:34)
[2021-03-07] MEDS: DOCUSATE SODIUM 100 MG CAP PO SCH ×2 (07:34→21:42)
[2021-03-07] MEDS: ROFLUMILAST 500 MCG TAB PO SCH (07:35)
[2021-03-07] MEDS ORDERED: predniSONE 10 MG TABLET PO SCH (09:00)
--- NOTE | 2021-03-07 12:14 | Palliative Care Consultation ---
Date of Consultation March 07, 2021 Assessment & Plan (1) Palliative care encounter: This is a 75 year old female who presented to the [facility] with altered mental status and hypoxia. She has a PMH that includes: CHF, COPD, HTN, HLD, fibromyalgia, basal cell carcinoma, and GERD. She was diagnosed and is currently being treated for an acute on chronic respiratory failure COPD exacerbation with BiPAP, steroids, IV abx, and bronchodilators. She has historically been non- compliant with her BIPAP at home. Her mental status has shown improvement. Palliative medicine was consulted to discuss overall goals of care. I met with Ms. Ramos in room 218. She was AAOx3 and able to participate in her goals of care conversation. She said that her breathing is feeling better than when she came to the hospital. She admitted to not being compliant at home with her treatment plan and BiPAP. I suspect that she may be non compliant not due to not wanting to be, but due to a lack of resources. She lives in a one story home and has access to all things aside from laundry. She said that her grandson does her laundry from time to time. She said that she does not drive, but later in the conversation mentioned that she can drive just has not for a long time. I do have concerns about her ability to [facility] I did express the importance of compliance with her BiPAP and she expressed understanding. I do think outpatient palliative could be beneficial as her copd progresses; however, I believe first and foremost she should have follow up with pulmonary. Should she continue and be compliant, would suggest adding in palliative follow up, even if telehealth or virtual visit. The goal is for her to return home with home health and she expressed interest in private caregiver support, which was communicated with case management. In discussing her code status, we discussed CPR and a ventilator. She said that she has made her son, jace, her POA and has an advanced directive. She would be ok with being intubated and receiving CPR. If a few days went by and she was not showing improvement, would want to transition to a more comfort focused approach to her care. Pt to remain a full code. I do think she could benefit from having Roxanol PRN for air hunger, but she declined such at this time. She did appear winded with some conversation, but was able to speak in complete sentences. I called her son, Jace, at [phone] and left a voicemail. He did call me back and was supportive of having additional care givers involved for her once discharged. Him and his both work time study statistician and have small children, so would like some extra help for her. Would suggest having Home health involved and even office of aging to assist with additional caregiver oversight. Reportedly, discharge is to be arranged over the next day or two. For now, palli ative will sign off. (2) Hypoxia: SpO2 has returned to baseline and she is requiring baseline supplemental O2 needs. Wears 2LNC at home, here down to 1LNC. SpO2 94%. Likely, she has compensated to a lower amount, steroids helping with this. (3) Altered mental status: returned to baseline. History of Present Illness Reason for Consultation: Goals of care Requesting Physician: Sommer Cherry PA-C Attending Physician: Tip Vasquez MD History of Present Illness This is a 75 year old female who presented to the [facility] with altered mental status and hypoxia. She has a PMH that includes: CHF, COPD, HTN, HLD, fibromyalgia, and GERD. She was diagnosed and is currently being treated for an acute on chronic respiratory failure COPD exacerbation with BiPAP, steroids, IV abx, and bronchodilators. She has historically been non-compliant with her BIPAP at home. Her mental status has shown improvement. Palliative medicine was consulted to discuss overall goals of care. Please see A/P for further details. Thanks for involving palliative medicine with this patient. Allergies Allergy/AdvReac Type Severity Reaction Status Date / Time duloxetine [From Cymbalta] Allergy Mild Rash Verified 03/04/21 11:16 naproxen AdvReac Mild GI SYMPTOMS Verified 03/04/21 11:16 Home Medications Medication Instructions Recorded Confirmed Type albuterol sulfate [Ventolin HFA] 2 puff INHALATION Q4H PRN 12/14/18 03/04/21 History atorvastatin 40 mg PO QAM 12/14/18 03/04/21 History losartan 25 mg PO QAM 12/14/18 03/04/21 History magnesium oxide 400 mg PO QAM 02/13/19 03/04/21 History metoprolol succinate 50 mg PO QAM 04/22/19 03/04/21 History ipratropium 0.5 mg-albuterol 3 mg 3 ml INHALATION QID PRN #360 ml 09/10/19 03/04/21 Rx (2.5 mg base)/3 mL nebulization soln Oxygen Home #1 ea 11/05/19 01/19/21 Rx diclofenac sodium 1 % topical gel 1 ea TOP UD PRN 01/22/20 03/04/21 History tramadol 50 mg tablet 50 mg PO Q6H PRN 01/22/20 03/04/21 History roflumilast 250 mcg tablet 250 mcg PO QAM #90 tab 06/30/20 03/04/21 Rx aspirin 81 mg PO DAILY 01/19/21 03/04/21 History docusate sodium 100 mg PO BID 01/19/21 03/04/21 History budesonide-formoterol 2 puffs INH BID #10.2 gm 01/21/21 03/04/21 Rx pantoprazole 40 mg PO DAILY #30 tab 01/21/21 03/04/21 Rx polyethylene glycol 3350 [Miralax] 17 g PO DAILY PRN #30 ea 01/21/21 03/04/21 Rx prednisone 10 mg PO DAILY #3 tab 01/21/21 03/04/21 Rx multivit with min-folic acid 2 tab PO DAILY 03/04/21 03/04/21 History [Multivitamin Gummies] Patient History Medical History (Updated 03/07/21 @ 12:13 by GENEVA Vega) Altered mental status BCC (basal cell carcinoma of skin) on left side of face---"s/p MOHS surgery" Chronic diastolic heart failure Chronic respiratory failure with hypoxia, on home O2 therapy OXYGEN 3L/MIN VIA NH COPD (chronic obstructive pulmonary disease) inhaler daily/prn and nebulizer prn COPD (chronic obstructive pulmonary disease) Degenerative disc disease Dyslipidemia Fibromyalgia GERD (gastroesophageal reflux disease) Hypertension Hypoxia Metabolic encephalopathy On home oxygen therapy 3L N/C at all times Osteoporosis Palliative care encounter Sinus tachycardia SOB (shortness of breath) on exertion Tremor of both hands Surgical History History of bilateral cataract extraction History of carpal tunnel surgery of right wrist History of colonoscopy with polypectomy History of esophagogastroduodenoscopy (EGD) History of left breast biopsy benign History of mandibular surgery jaw fx History of repair of left rotator cuff History of repair of right rotator cuff History of tooth extraction S/P Mohs surgery for basal cell carcinoma Status post appendectomy Status post excision of lipoma removed off neck x2 Status post hysterectomy Status post repair of ventral hernia Family History Grandfather (Maternal) Family hx of colon cancer Father FH: kidney cancer Family/Other Family history of diabetes mellitus nephew Other Kidney disease Lung disease No family history of adverse response to anesthesia Social History Smoking Status: Former smoker Tobacco Type: Cigarettes Cigarettes Per Day: unsure when she quit; Smoking End Date: 2003; Second Hand Exposure: No; Hx Alcohol Use: No Hx Substance Use: No Preferred Language: Swazi Communication Ability: Effective Curtain Framer Required: No Beliefs That Will Affect Care: None marital status: / Current Living Situation: Alone current occupational status: retired How many Children do You have: 3 Feels Safe at Home: Yes Assistive Devices: BiPap and Oxygen - Continuous Review of Systems Review of Systems: [place] System Assessment Scale: Pain: 0/3 Shortness of breath: 1/3 Tiredness: 0/3 Physical Exam Constitutional: well developed, cooperative and comfortable ENMT: Nose: + dry nasal mucous membranes Neck: trachea midline, no thyromegaly Respiratory: + respiratory distress and + labored breathing Auscultation: + diminished lung sounds and + wheezes Cardiovascular: Rate/Rhythm: regular rate and regular rhythm Heart Sounds: normal S1 and normal S2 Extremities: normal capillary refill; no edema Gastrointestinal (Abdomen): normal bowel sounds, soft, nontender, no hepatosplenomegaly Skin: + pallor Psychiatric: A+Ox3, euthymic affect Results & Data ([facility]) Vital Signs (Past 12 Hours) Vital Signs Temp Pulse Pulse Resp BP BP Pulse Ox 03/07/21 12:00 37.0 C 80 20 130/64 98 03/07/21 11:16 68 18 73 L 03/07/21 08:30 73 03/07/21 07:57 36.6 C 75 20 155/72 H 100 03/07/21 07:09 70 18 97 05/24/21 03:09 36.9 C 69 18 136/88 99 03/07/21 02:56 68 19 96 03/07/21 00:20 70 26 H 98 PG Care Time/CCT Total # of Minutes Spent Total Time Spent with Patient: Total time spent is greater than 50% in coordination of care (as documented) at patient's floor/unit and/or counseling patient: 70 minutes with > 50% of that time spent assessing the patient, discussing goals of care, and collaborating with IDT Coding Level of Care Code 45968 Inpt Consult Level 3 Diagnoses Palliative care encounter Z51.5 Hypoxia R09.02 Altered mental status R41.82 Time Spent (min) 70
[2021-03-07] MEDS: AZITHROMYCIN 500 MG in DEXTROSE 5% 250 ML IV SCH (14:45)
--- NOTE | 2021-03-07 15:42 | Hospitalist Progress Note ---
Date of Service March 07, 2021 Assessment & Plan (1) Acute on chronic respiratory failure with hypoxia and hypercapnia: (2) Acute metabolic encephalopathy: Patient is a 75 yr female with H/O chronic hypoxic and hypercapnic respiratory failure secondary to COPD and obesity hypoventilation syndrome, chronic diastolic CHF, chronic sinus tachycardia, HTN, HLD, fibromyalgia, GERD, ambulatory dysfunction who presents to ED with increased shortness of breath. Acute on chronic respiratory failure with hypoxia, hypercarbia Acute metabolic encephalopathy secondary to above Acute COPD Exacerbation Chronic Oxygen dependency--on 2 liters at baseline -CT Head:No acute intracranial abnormality. -CXR:No acute process. Normal ammonia level Continue azithromycin to finish 5 day course Continue bronchodilators Appreciate pulmonary input Aspiration precautions Titrate oxygen to keep saturations 88 to 92% Mental status back to baseline Needs follow-up with pulmonology upon discharge Tolerating BiPAP while hospitalized Taper prednisone course May need BIPAP at bedtime upon discharge as well (3) COPD exacerbation: Management as above (4) Sinus tachycardia: Continue metoprolol (5) Elevated troponin: Mild Troponin Elevation Likely demand ischemia in setting of Hypoxia Denies chest pain Echo no regional wall motion abnormality (6) Hypertension: Continue home medications Failure to thrive Difficult social disposition in the past Limited support from friends or family Case Management to help with discharge planning Patient lives alone Grandson helps with some chores Fibromyalgia on tramadol as needed GERD Continue PPI CODE STATUS: Full code Disposition PT/OT prior to discharge Admission and Anticipated Discharge Date Admission Date: March 04, 2021 Subjective Patient is seen and examined at bedside States feeling nauseous today Complains of left knee pain Minimal cough today Tolerated BiPAP overnight Denies any shortness of breath, chest pain Review of Systems Review of Systems: All systems reviewed & are unremarkable except as noted in HPI & below Physical Exam Physical Exam: Physical Exam: Vitals signs as noted above General Appearance:Moderately built and nourished, no apparent distress Head: normocephalic, Atraumatic Eyes: normal inspection, EOMI Neck: supple, Trachea midline Respiratory/Chest: Decreased breath sounds, CTA Cardiovascular: S1, S2, No murmur Abdomen/GI:Soft, Non tender, Bowel sounds present Extremities/Musculoskeletal:normal inspection, no edema Neurologic/Psych:AAOX3, grossly no focal neurological deficits Skin: normal color, warm Results & Data Results & Data ([facility]) Vital Signs (Past 12 Hours) Vital Signs Temp Pulse Pulse Resp BP Pulse Ox 03/07/21 15:10 37.0 C 68 68 H 132/56 L 90 03/07/21 15:08 78 20 96 03/07/21 14:55 94 H 03/07/21 12:00 37.0 C 80 20 130/64 98 03/07/21 11:16 68 18 73 L 03/07/21 08:30 73 03/07/21 07:57 36.6 C 75 20 155/72 H 100 03/07/21 07:09 70 18 97 Laboratory Results Short CBC 03/07/21 Range/Units 05:55 WBC 9.74 (4.8-10.8) K/uL Hgb 10.7 L (12.0-16.0) g/dL Hct 35.6 L (37-47) % Plt Count 228 (130-400) K/uL BMP 03/07/21 05:55 Sodium 139 Potassium 3.6 Chloride 95 L Carbon Dioxide 43 H* BUN 23 H Creatinine 0.51 L Glucose 85 Calcium 8.9 (1) Hypertension Hypertension type: unspecified Qualified Code(s): I10 - Essential (primary) hypertension
[2021-03-08] MEDS: traMADol HCL 50 MG TABLET PO PRN ×3 (01:12→22:50)
[2021-03-08] MEDS: IPRATROPIUM BROMIDE NEB SOLN 0.02% 2.5 ML VIAL INH SCH ×6 (05:44→22:22)
[2021-03-08] MEDS: LEVALBUTEROL 1.25MG/0.5ML NEB INH SCH ×6 (05:44→22:22)
[2021-03-08 08:37] LABS: Hematocrit (blood only) 35.4 % (37-47); Hemoglobin 10.8 g/dL (12.0-16.0); Mean Corpuscular Hemoglobin 27.7 pg (25-34); Mean Corpuscular Hgb Conc 30.5 g/dL (32-36); Mean Corpuscular Volume 90.8 fL (80-100); Mean Platelet Volume 11.2 fL (7.4-10.4); Platelet Count 212 K/uL (130-400); White Blood Count 8.17 K/uL (4.8-10.8)
[2021-03-08 08:38] LABS: Base Excess ABG 14.3 mEq/L (-9-1.8); HCO3 ABG 42 mmol/L (19-24); Oxygen Saturation ABG 94.1 % (90-95); PCO2 ABG 71 mmHg (35-46); PO2 ABG 71 mmHg (80-95); pH ABG 7.39 (7.35-7.45)
[2021-03-08 08:44] LABS: Allen Test Pos (Pos)
[2021-03-08 09:02] LABS: BUN Creatinine Ratio 27.7 (10-20); Calcium 8.8 mg/dl (8.5-10.1); Creatinine Clr Calc Pharmacy 69.7 ml/min; Est GFR (African American) 102.5 ml/min; Est GFR (Non-African American) 88.4 ml/min; Potassium 3.5 mmol/L (3.5-5.1)
[2021-03-08] MEDS: ASPIRIN 81 MG ECTAB PO SCH (09:27)
[2021-03-08] MEDS: FLUTICASONE/VILANTEROL 100/25MCG 14 PUFFS/INHALER INH SCH (09:27)
[2021-03-08] MEDS: DOCUSATE SODIUM 100 MG CAP PO SCH ×2 (09:27→20:46)
[2021-03-08] MEDS: ATORVASTATIN 40 MG TAB PO SCH (09:27)
[2021-03-08] MEDS: predniSONE 20 MG TAB PO SCH (09:28)
[2021-03-08] MEDS: PANTOprazole 40 MG TAB PO SCH (09:28)
[2021-03-08] MEDS: LOSARTAN POTASSIUM 25 MG TAB PO SCH (09:28)
[2021-03-08] MEDS: MAGNESIUM OXIDE 400 MG TAB PO SCH (09:28)
[2021-03-08] MEDS: ROFLUMILAST 500 MCG TAB PO SCH (09:28)
[2021-03-08] MEDS: METOPROLOL SUCC 50MG EXT REL TAB PO SCH (09:28)
[2021-03-08] MEDS: AZITHROMYCIN 500 MG in DEXTROSE 5% 250 ML IV SCH (15:09)
--- NOTE | 2021-03-08 16:15 | Hospitalist Progress Note ---
Date of Service March 08, 2021 Assessment & Plan (1) Acute on chronic respiratory failure with hypoxia and hypercapnia: (2) Acute metabolic encephalopathy: Patient is a 75 yr female with H/O chronic hypoxic and hypercapnic respiratory failure secondary to COPD and obesity hypoventilation syndrome, chronic diastolic CHF, chronic sinus tachycardia, HTN, HLD, fibromyalgia, GERD, ambulatory dysfunction who presents to ED with increased shortness of breath. Acute on chronic respiratory failure with hypoxia, hypercarbia Acute metabolic encephalopathy secondary to above Acute COPD Exacerbation Chronic Oxygen dependency--on 2 liters at baseline -CT Head:No acute intracranial abnormality. -CXR:No acute process. Normal ammonia level Continue azithromycin to finish 5 day course Continue bronchodilators Appreciate pulmonary input Aspiration precautions Titrate oxygen to keep saturations 88 to 92% Mental status back to baseline Tolerating BiPAP while hospitalized Taper prednisone course as able Needs follow-up with pulmonology upon discharge Will need Trilogy arranged prior to discharge (3) COPD exacerbation: Management as above (4) Sinus tachycardia: Continue metoprolol (5) Elevated troponin: Mild Troponin Elevation Likely demand ischemia in setting of Hypoxia Denies chest pain Echo no regional wall motion abnormality (6) Hypertension: Continue home medications Failure to thrive Difficult social disposition in the past Limited support from friends or family Case Management to help with discharge planning Patient lives alone Fibromyalgia on tramadol as needed GERD Continue PPI CODE STATUS: Full code Disposition PT/OT prior to discharge Admission and Anticipated Discharge Date Admission Date: March 04, 2021 Subjective Patient is seen and examined at bedside No new complaints States feeling better ABG today consistent with hypercapnia Discussed with pulmonology today Less left knee pain No significant cough today Denies any shortness of breath, chest pain Review of Systems Review of Systems: All systems reviewed & are unremarkable except as noted in HPI & below Physical Exam Physical Exam: Physical Exam: Vitals signs as noted above General Appearance:Moderately built and nourished, no apparent distress Head: normocephalic, Atraumatic Eyes: normal inspection, EOMI Neck: supple, Trachea midline Respiratory/Chest: Decreased breath sounds, CTA Cardiovascular: S1, S2, No murmur Abdomen/GI:Soft, Non tender, Bowel sounds present Extremities/Musculoskeletal:normal inspection, no edema Neurologic/Psych:AAOX3, grossly no focal neurological deficits Skin: normal color, warm Results & Data Results & Data ([facility]) Vital Signs (Past 12 Hours) Vital Signs Temp Pulse Pulse Pulse Resp BP BP 03/08/21 15:44 78 18 03/08/21 15:02 36.8 C 86 18 128/75 03/08/21 11:16 75 18 03/08/21 11:03 36.7 C 79 20 151/82 H 03/08/21 07:52 67 03/08/21 07:32 37 C 82 18 144/79 H 03/08/21 07:10 78 18 Pulse Ox 03/08/21 15:44 98 03/08/21 15:02 95 03/08/21 11:16 96 03/08/21 11:03 92 03/08/21 07:52 03/08/21 07:32 96 03/08/21 07:10 96 Laboratory Results Short CBC 03/08/21 Range/Units 08:22 WBC 8.17 (4.8-10.8) K/uL Hgb 10.8 L (12.0-16.0) g/dL Hct 35.4 L (37-47) % Plt Count 212 (130-400) K/uL BMP 03/08/21 08:22 Sodium 140 Potassium 3.5 Chloride 98 Carbon Dioxide 37 H BUN 16 Creatinine 0.59 L Glucose 121 H Calcium 8.8 (1) Hypertension Hypertension type: unspecified Qualified Code(s): I10 - Essential (primary) hypertension
--- NOTE | 2021-03-08 17:23 | Pulmonology Progress Note ---
Date of Service March 08, 2021 Assessment & Plan (1) Acute metabolic encephalopathy: (2) COPD (chronic obstructive pulmonary disease): (3) Chronic respiratory failure with hypoxia and hypercapnia: -- Acute on Chronic Hypercapnic hypoxic respiratory failure Secondary to COPD exacerbation Failed inpatient BiPAP Patient had AVAPs in the past. She is willing to use it again. -- COPD Recommend starting the patient on Trelegy inhaler Continue with Roflumilast Given that the patient's QTC is 484, I do not think she will be a good candidate for azithromycin 250 mg Sunday Plan: Patient will benefit from AVAPs machine given that she has persistent hypercapnia. Taper prednisone off in the next couple of days. Please note the above document was generated using voice recognition software. It may contain grammatical, syntax or spelling errors.Any formal questions or concerns about the content, text or information contained within the body of this dictation should be directly addressed to the provider for clarification. Admission and Anticipated Discharge Date Admission Date: March 04, 2021 Subjective Patient seen and examined at bedside. No acute distress. Patient was getting nebulizer treatment just prior to examination. She states she used the BiPAP overnight. Denies any chest pain, no headache, no nausea, no vomiting. Review of Systems Review of Systems: All systems reviewed & are unremarkable except as noted in Subjective Physical Exam Physical Exam: Constitutional: No acute distress HEENT: EOMI, PERRLA Respiratory system: Decreased air entry bilaterally, mild crackles bilaterally, no rhonchi, mild expiratory wheeze CVS: S1-S2 positive, no murmurs or gallops Abdomen: Soft, nontender, nondistended, positive bowel sounds x4 Extremities: +2 pulses bilaterally radialis/ dorsalis pedis, no cyanosis, +1 edema bilateral lower extremity Neuro: Awake alert oriented x3 Psych: Normal mood and affect G/U: No Cole Skin: no rashes, warm and dry Lymphatic: no cervical or axillary lymphadenopathy Results & Data Results & Data ([facility]) Vital Signs (Past 12 Hours) Vital Signs Temp Pulse Pulse Pulse Resp BP BP 03/08/21 15:44 78 18 03/08/21 15:02 36.8 C 86 18 128/75 03/08/21 11:16 75 18 03/08/21 11:03 36.7 C 79 20 151/82 H 03/08/21 07:52 67 03/08/21 07:32 37 C 82 18 144/79 H 03/08/21 07:10 78 18 Pulse Ox 03/08/21 15:44 98 03/08/21 15:02 95 03/08/21 11:16 96 03/08/21 11:03 92 03/08/21 07:52 03/08/21 07:32 96 03/08/21 07:10 96 03/08/21 08:22 03/08/21 08:22 PG Care Time/CCT Total # of Minutes Spent Total Time Spent with Patient: Total time spent is greater than 50% in coordination of care (as documented) at patient's floor/unit and/or counseling patient: Coding Level of Care Code 21263 Subseq Hosp Care Lvl 3 Diagnoses Acute metabolic encephalopathy G93.41 COPD (chronic obstructive pulmonary disease) J44.9 Chronic respiratory failure with hypoxia and hypercapnia J96.11; J96.12
[2021-03-09] MEDS: LEVALBUTEROL 1.25MG/0.5ML NEB INH SCH ×6 (02:58→23:18)
[2021-03-09] MEDS: IPRATROPIUM BROMIDE NEB SOLN 0.02% 2.5 ML VIAL INH SCH ×6 (02:58→23:18)
[2021-03-09] MEDS ORDERED: ACETAMINOPHEN 325 MG TAB PO PRN (05:59)
[2021-03-09] MEDS: traMADol HCL 50 MG TABLET PO PRN ×2 (06:10→20:41)
[2021-03-09 08:12] LABS: Hematocrit (blood only) 37.4 % (37-47); Hemoglobin 11.3 g/dL (12.0-16.0); Mean Corpuscular Hemoglobin 27.6 pg (25-34); Mean Corpuscular Hgb Conc 30.2 g/dL (32-36); Mean Corpuscular Volume 91.2 fL (80-100); Mean Platelet Volume 11.2 fL (7.4-10.4); Platelet Count 224 K/uL (130-400); RDW Standard Deviation 46.3 fL (36.4-46.3); White Blood Count 7.98 K/uL (4.8-10.8)
[2021-03-09 08:41] LABS: BUN Creatinine Ratio 33.5 (10-20); Calcium 9.3 mg/dl (8.5-10.1); Creatinine Clr Calc Pharmacy 74.8 ml/min; Est GFR (African American) 104.9 ml/min; Est GFR (Non-African American) 90.5 ml/min; Magnesium 2.2 mg/dl (1.8-2.4); Potassium 4.1 mmol/L (3.5-5.1)
[2021-03-09] MEDS: DOCUSATE SODIUM 100 MG CAP PO SCH ×2 (08:53→20:43)
[2021-03-09] MEDS: ATORVASTATIN 40 MG TAB PO SCH (09:16)
[2021-03-09] MEDS: FLUTICASONE/VILANTEROL 100/25MCG 14 PUFFS/INHALER INH SCH (09:16)
[2021-03-09] MEDS: ASPIRIN 81 MG ECTAB PO SCH (09:16)
[2021-03-09] MEDS: MAGNESIUM OXIDE 400 MG TAB PO SCH (09:17)
[2021-03-09] MEDS: PANTOprazole 40 MG TAB PO SCH (09:17)
[2021-03-09] MEDS: ROFLUMILAST 500 MCG TAB PO SCH (09:17)
[2021-03-09] MEDS: METOPROLOL SUCC 50MG EXT REL TAB PO SCH (09:17)
[2021-03-09] MEDS: LOSARTAN POTASSIUM 25 MG TAB PO SCH (09:17)
[2021-03-09] MEDS: predniSONE 20 MG TAB PO SCH (09:17)
--- NOTE | 2021-03-09 11:16 | Hospitalist Progress Note ---
Date of Service March 09, 2021 Assessment & Plan (1) Acute on chronic respiratory failure with hypoxia and hypercapnia: (2) Acute metabolic encephalopathy: Patient is a 75 yr female with H/O chronic hypoxic and hypercapnic respiratory failure secondary to COPD and obesity hypoventilation syndrome, chronic diastolic CHF, chronic sinus tachycardia, HTN, HLD, fibromyalgia, GERD, ambulatory dysfunction who presents to ED with increased shortness of breath. Acute on chronic respiratory failure with hypoxia, hypercarbia Acute metabolic encephalopathy secondary to above-Resolved Acute COPD Exacerbation Chronic Oxygen dependency--on 2 liters at baseline, on 2L at home -CT Head:No acute intracranial abnormality. -CXR:No acute process. Normal ammonia level Continue azithromycin to finish 5 day course Continue bronchodilators Aspiration precautions Titrate oxygen to keep saturations 88 to 92% Mental status back to baseline Tolerating BiPAP while hospitalized Taper prednisone course as able Needs follow-up with pulmonology upon discharge Will need Trilogy arranged prior to discharge (3) COPD exacerbation: Management as above (4) Sinus tachycardia: Continue metoprolol-resolved (5) Elevated troponin: Mild Troponin Elevation Likely demand ischemia in setting of Hypoxia Denies chest pain Echo no regional wall motion abnormality (6) Hypertension: Continue home medications Failure to thrive Difficult social disposition in the past Limited support from friends or family Case Management to help with discharge planning Patient lives alone Fibromyalgia on tramadol as needed GERD Continue PPI CODE STATUS: Full code Disposition PT/OT prior to discharge ROS-No Headache, No Visual Changes, No Nausea, No Vomiting, No Fever, No Chills, No Neck Pain or Stiffness, No Chest Pain, No Palpitations, No SOB, No BARONE, No Cough, No Sputum, No Wheezing, No Abdominal Pain, No Diarrhea, No Hematemesis, No Hemoptysis, No Unexpected Weight Loss, No Flank pain, No Melena, No Hematochezia, No Frequency, No Urgency, No Burning, No Hematuria, No Rashes, No Diaphoresis. Appetite is Normal Physical Exam Gen-AAO x 3, NAD, Afebrile Head-NCAT, EOMI, PERRLA, Anicteric Sclera, No Posterior Pharyngeal Erythema Neck-Supple, No JVD, No Thyromegaly, No Masses, No LAD, No Bruits Lungs-No Rales, No Rhonchi, + Wheezing, No Crepitus Chest-No S4, +S1, +S2, No S3, No Murmurs, No Rubs, No Gallops, No Ectopy Abdomen-Soft, Bowel Sounds Present, Non Tender, Non Distended, No Hepatomegaly, No Splenomegaly, No Palpable Masses, No Rebound, No Rigidity, No Guarding Musculoskeletal-Full Range of Motion Bilaterally, No CVAT Extremities-No Cyanosis, No Clubbing, No Edema Nuero-Cranial Nerves II-XII grossly intact, Motor WNL, DTRs WNL, Strength WNL, Non Focal Psych-Normal Mood Admission and Anticipated Discharge Date Admission Date: March 04, 2021 Results & Data Results & Data ([facility]) Vital Signs (Past 12 Hours) Vital Signs Temp Pulse Pulse Pulse Resp BP Pulse Ox 03/09/21 10:53 70 18 96 03/09/21 08:55 69 03/09/21 08:00 36.7 C 69 18 156/88 H 98 03/09/21 07:04 74 18 96 03/09/21 04:55 36.7 C 77 18 145/76 H 95 03/09/21 01:48 82 03/09/21 00:08 69 Pulse Ox 03/09/21 10:53 03/09/21 08:55 03/09/21 08:00 03/09/21 07:04 03/09/21 04:55 03/09/21 01:48 98 03/09/21 00:08 98 (1) Hypertension Hypertension type: unspecified Qualified Code(s): I10 - Essential (primary) hypertension
--- NOTE | 2021-03-09 17:02 | Pulmonology Progress Note ---
Date of Service March 09, 2021 Assessment & Plan (1) Acute metabolic encephalopathy: (2) COPD (chronic obstructive pulmonary disease): (3) Chronic respiratory failure with hypoxia and hypercapnia: -- Acute on Chronic Hypercapnic hypoxic respiratory failure Secondary to COPD exacerbation Failed inpatient BiPAP ABG 03/08/2021: 7.39// on 2 L, even after patient has been using BiPAP while in the hospital Recommend keeping oxygen saturation between 88-92% Patient had AVAPs in the past. She is willing to use it again. Bipap considered and failed due to Pt remaining hypercapnic on the Bipap. NIV required to reduce work of breathing and interruption of ventilatory support would be cause pt harm. -- COPD Recommend starting the patient on Trelegy inhaler Continue with Roflumilast Given that the patient's QTC is 484, I do not think she will be a good candidate for azithromycin 250 mg Sunday Plan: Patient will benefit from AVAPs machine given that she has persistent hypercapnia. Taper prednisone off in the next couple of days. No further recommendation from pulmonary perspective. Please call directly with any questions. Please note the above document was generated using voice recognition software. It may contain grammatical, syntax or spelling errors.Any formal questions or concerns about the content, text or information contained within the body of this dictation should be directly addressed to the provider for clarification. Admission and Anticipated Discharge Date Admission Date: March 04, 2021 Subjective Patient seen and examined at bedside. No acute distress. No adverse events overnight. Patient has been using BiPAP while in the hospital. She has a shortness of breath is improved. Denies any chest pain, no headache, no nausea, no vomiting. Fair appetite. Review of Systems Review of Systems: All systems reviewed & are unremarkable except as noted in Subjective Physical Exam Physical Exam: Constitutional: No acute distress HEENT: EOMI, PERRLA Respiratory system: Decreased air entry bilaterally, mild crackles bilaterally, no rhonchi, mild expiratory wheeze CVS: S1-S2 positive, no murmurs or gallops Abdomen: Soft, nontender, nondistended, positive bowel sounds x4 Extremities: +2 pulses bilaterally radialis/ dorsalis pedis, no cyanosis, +1 edema bilateral lower extremity Neuro: Awake alert oriented x3 Psych: Normal mood and affect G/U: No Cole Skin: no rashes, warm and dry Lymphatic: no cervical or axillary lymphadenopathy Results & Data Results & Data ([facility]) Vital Signs (Past 12 Hours) Vital Signs Temp Pulse Pulse Resp BP Pulse Ox 03/09/21 15:49 36.6 C 64 18 151/78 H 96 03/09/21 15:39 76 03/09/21 14:56 68 97 03/09/21 11:21 36.6 C 74 20 135/79 99 03/09/21 10:53 70 18 96 03/09/21 08:55 69 03/09/21 08:00 36.7 C 69 18 156/88 H 98 03/09/21 07:04 74 18 96 03/09/21 07:58 03/09/21 07:58 PG Care Time/CCT Total # of Minutes Spent Total Time Spent with Patient: Total time spent is greater than 50% in coordination of care (as documented) at patient's floor/unit and/or counseling patient: Coding Level of Care Code 70617 Subseq Hosp Care Lvl 2 Diagnoses Acute metabolic encephalopathy G93.41 COPD (chronic obstructive pulmonary disease) J44.9 Chronic respiratory failure with hypoxia and hypercapnia J96.11; J96.12
[2021-03-10] MEDS: IPRATROPIUM BROMIDE NEB SOLN 0.02% 2.5 ML VIAL INH SCH ×2 (03:22→07:25)
[2021-03-10] MEDS: LEVALBUTEROL 1.25MG/0.5ML NEB INH SCH ×2 (03:22→07:26)
--- NOTE | 2021-03-10 07:11 | Discharge Summary ---
Date of Service March 10, 2021 Admission HPI Per Admitting Provider This is a 75yo F with a PMH of chronic hypoxic and hypercapnic respiratory failure secondary to COPD and obesity hypoventilation syndrome, chronic diastolic CHF, chronic sinus tachycardia, HTN, HLD, fibromyalgia, GERD, am bulatory dysfunction who presents to ED with increased shortness of breath. History limited to EMS and nursing reports due to patient's reduced consciousness. EMS was called earlier today due to neighbor's hearing shouting for help from patient's home. Was found to be hypoxic at 63% without oxygen on. Reportedly wears 3 lpm daily. House was in disarray, patient covered in feces. Told EMS she had not taken medications "in awhile". Patient initially was placed on high flow O2 by ER physician, as patient refused BiPAP mask. Blood gas demonstrated acute on chronic hypercarbic state. Received IV Ativan for agitation and then became very somnolent, lethargic, placed on BiPAP. Unable to reach emergency contact but will continue attempting. Admission Exam Per Admitting Provider General Appearance: vitals as above, somnolent, wearing bipap mask, poorly groomed, arousable to painful stimuli Head: normocephalic, atraumatic Eyes: normal inspection, PERRL, conjunctivae normal, anicteric sclerae ENT: external ear and nose normal, bipap mask Neck: normal visual inspection, trachea midline, no thyromegaly Respiratory: increased respiratory effort, lung sounds diminished throughout. Tachypneic, + accessory muscle use Cardiovascular: tachycardic rate, regular rhythm, no murmur appreciated, normal peripheral pulses, no BLE edema. Vessels: no JVD Chest: normal inspection of chest Abdomen/GI: normal bowel sounds, soft, nontender, no hepatosplenomegaly Extremities/Musculoskeletal: no cyanosis or clubbing, extremities motor strength 5/5 Neurologic: PERRL, EOMI, accommodation nl, no face palsy, no dysarthria, CN's II-XI intact bilaterally and moves all extremities Psychiatric: Somnolent Skin: no rashes, normal color, warm/dry Principal Diagnosis (1) Acute on chronic respiratory failure with hypoxia and hypercapnia: (2) Acute metabolic encephalopathy: (3) COPD exacerbation: (4) Sinus tachycardia: (5) Elevated troponin: (6) Hypertension: (7) Fibromyalgia (8) GERD Discharge Exam See below Discharge Data Allergies Allergy/AdvReac Type Severity Reaction Status Date / Time duloxetine [From Cymbalta] Allergy Mild Rash Verified 03/04/21 11:16 naproxen AdvReac Mild GI SYMPTOMS Verified 03/04/21 11:16 Consultations 03/04/21 11:12 ED Decision to Admit Stat 03/04/21 11:54 Consult Pulmonology Routine 03/04/21 17:51 Consult Palliative Care Routine Ordered Studies 03/04/21 13:39 CT head/brain wo con Stat Current Diagnoses Metabolic encephalopathy (03/04/21) Essential (primary) hypertension (03/04/21) Chronic obstructive pulmonary disease with (acute) exacerbation (03/04/21) Chronic obstructive pulmonary disease, unspecified (03/04/21) Chronic respiratory failure with hypoxia (03/04/21) Chronic respiratory failure with hypercapnia (03/04/21) Acute and chronic respiratory failure with hypoxia (03/04/21) Acute and chronic respiratory failure with hypercapnia (03/04/21) Tachycardia, unspecified (03/04/21) Hypoxemia (03/04/21) Altered mental status, unspecified (03/04/21) Other specified abnormalities of plasma proteins (03/04/21) Encounter for palliative care (03/04/21) Allergies duloxetine [From Cymbalta] Allergy (Mild, Verified 03/04/21 11:16) Rash naproxen Adverse Reaction (Mild, Verified 03/04/21 11:16) GI SYMPTOMS Height/Weight/Isolation Height 5 ft Weight 70.2 kg Chemistry 03/08/21 03/09/21 08:22 07:58 Sodium 140 137 Potassium 3.5 4.1 D Chloride 98 97 L Carbon Dioxide 37 H 40 H Anion Gap 5.0 0 L BUN 16 19 H Creatinine 0.59 L 0.55 L Glucose 121 H 88 Hospital Course (1) Acute on chronic respiratory failure with hypoxia and hypercapnia: (2) Acute metabolic encephalopathy: Patient is a 75 yr female with H/O chronic hypoxic and hypercapnic respiratory failure secondary to COPD and obesity hypoventilation syndrome, chronic diastolic CHF, chronic sinus tachycardia, HTN, HLD, fibromyalgia, GERD, ambulatory dysfunction who presents to ED with increased shortness of breath. Acute on chronic respiratory failure with hypoxia, hypercarbia Acute metabolic encephalopathy secondary to above-Resolved Acute COPD Exacerbation Chronic Oxygen dependency--on 2 liters at baseline, on 2L at home -CT Head:No acute intracranial abnormality. -CXR:No acute process. Normal ammonia level Continue azithromycin to finish 5 day course Continue bronchodilators Aspiration precautions Titrate oxygen to keep saturations 88 to 92% Mental status back to baseline Tolerating BiPAP while hospitalized Taper prednisone on DC Needs follow-up with pulmonology upon discharge Trilogy arranged DC today (3) COPD exacerbation: Management as above (4) Sinus tachycardia: Continue metoprolol-resolved (5) Elevated troponin: Mild Troponin Elevation Likely demand ischemia in setting of Hypoxia Denies chest pain Echo no regional wall motion abnormality (6) Hypertension: Continue home medications Failure to thrive Difficult social disposition in the past Limited support from friends or family Case Management to help with discharge planning Patient lives alone Fibromyalgia on tramadol as needed GERD Continue PPI CODE STATUS: Full code Disposition DC home this am ROS-No Headache, No Visual Changes, No Nausea, No Vomiting, No Fever, No Chills, No Neck Pain or Stiffness, No Chest Pain, No Palpitations, No SOB, No BARONE, No Cough, No Sputum, No Wheezing, No Abdominal Pain, No Diarrhea, No Hematemesis, No Hemoptysis, No Unexpected Weight Loss, No Flank pain, No Melena, No Hematochezia, No Frequency, No Urgency, No Burning, No Hematuria, No Rashes, No Diaphoresis. Appetite is Normal Physical Exam Gen-AAO x 3, NAD, Afebrile Head-NCAT, EOMI, PERRLA, Anicteric Sclera, No Posterior Pharyngeal Erythema Neck-Supple, No JVD, No Thyromegaly, No Masses, No LAD, No Bruits Lungs-No Rales, No Rhonchi, + Wheezing, No Crepitus Chest-No S4, +S1, +S2, No S3, No Murmurs, No Rubs, No Gallops, No Ectopy Abdomen-Soft, Bowel Sounds Present, Non Tender, Non Distended, No Hepatomegaly, No Splenomegaly, No Palpable Masses, No Rebound, No Rigidity, No Guarding Musculoskeletal-Full Range of Motion Bilaterally, No CVAT Extremities-No Cyanosis, No Clubbing, No Edema Nuero-Cranial Nerves II-XII grossly intact, Motor WNL, DTRs WNL, Strength WNL, Non Focal Psych-Normal Mood Total Time Total Time Spent Total Time Spent (In Minutes): 45 mins Total Time Includes: Examination of the Patient, Discharge Planning, Medication Reconciliation and Communication With Other Providers Discharge Plan Discharge Items Patient Disposition: Home - Self-Care Reason For Visit: RESPIRATORY FAILURE Discharge Diagnosis: (1) Acute on chronic respiratory failure with hypoxia and hypercapnia: (2) Acute metabolic encephalopathy: (3) COPD exacerbation: (4) Sinus tachycardia: (5) Elevated troponin: (6) Hypertension: (7) Fibromyalgia (8) GERD Condition on Discharge: Good Health Concerns: COPD worsening after steroids tapered Activity: Resume your previous activity Lifting: None and Gradually increase as tolerated Bathing: No limitations Sexual Activity: When tolerated Exercise/Sports: Gradually increase as tolerated Driving/Machine Use: No limitations Weightbearing: Full weightbearing Non-emergency contact: Primary Care Provider and Shop Superintendent Call non-emergency contact if: you have any medication questions Follow-up/Referrals: Russ Moon MD [Primary Care Provider] - (Date & Time 03/11/2021 11:00 AM Provider Paige Bartholomew MD Department Family Practice [facility] ) Arnaud Thapa MD [Outside Practitioners] - (Date & Time 03/10/2021 11:00 AM Provider Arnaud Thapa MD Department Pulmonary Medicine, [facility] ) Diet: Heart Healthy Addtl Attending Provider Instructions: None Pending Studies at Discharge: No Stand-Alone Forms: My [employer], Smoking Cessation Medications and DC Order Prescriptions: New prednisone 20 mg Tablet 20 mg PO DAILY Qty: 3 RF: 0 Continued Daliresp 250 mcg tablet 250 mcg PO QAM Qty: 90 RF: 1 (DME) Oxygen Home Liters Per Minute See Rx Instructions .ROUTE .MEDSUPPLY Qty: 1 RF: 0 tramadol 50 mg tablet 50 mg PO Q6H PRN (Reason: Pain) RF: 0 diclofenac sodium 1 % gel 1 ea TOP UD PRN (Reason: Pain) RF: 0 ipratropium-albuterol 0.5 mg-3 mg(2.5 mg base)/3 mL solution for nebulization 3 ml INHALATION QID PRN (Reason: shortness of breath or wheezing) Qty: 360 RF: 5 magnesium oxide 400 mg magnesium Capsule 400 mg PO QAM RF: 0 atorvastatin 40 mg Tablet 40 mg PO QAM RF: 0 losartan 25 mg Tablet 25 mg PO QAM RF: 0 albuterol sulfate [Ventolin HFA] 90 mcg/actuation Hfa Aerosol Inhaler 2 puff INHALATION Q4H PRN (Reason: Shortness Of Breath Or Wheezing) RF: 0 metoprolol succinate 50 mg tablet extended release 24 hr 50 mg PO QAM RF: 0 aspirin 81 mg Tablet,Delayed Release (Dr/Ec) 81 mg PO DAILY RF: 0 docusate sodium 100 mg Tablet 100 mg PO BID RF: 0 pantoprazole 40 mg Tablet,Delayed Release (Dr/Ec) 40 mg PO DAILY Qty: 30 RF: 0 polyethylene glycol 3350 [Miralax] 17 gram Powder In Packet 17 g PO DAILY PRN (Reason: constipation) Qty: 30 RF: 0 prednisone 10 mg tablet 10 mg PO DAILY Qty: 3 RF: 0 budesonide-formoterol 160-4.5 mcg/actuation HFA aerosol inhaler 2 puffs INH BID Qty: 10.2 RF: 1 Multivitamin Gummies 200 mcg Tablet,Chewable 2 tab PO DAILY RF: 0 Discharge Orders: Discharge Order (Routine); Ordered 03/10/21 Ordered By: Glenn Ralph Admission Data Admit Date/Time: 03/04/21 11:54 Attending Provider: Glenn Ralph Admit Provider: Flora Taylor Primary Care Provider: Russ Moon Other Providers: [facility],Home Healthcare ; Flora Taylor ; Marcelino Deutsch ; Lashaun Tadeo
[2021-03-10] MEDS: ASPIRIN 81 MG ECTAB PO SCH (08:41)
[2021-03-10] MEDS: ROFLUMILAST 500 MCG TAB PO SCH (08:41)
[2021-03-10] MEDS: predniSONE 20 MG TAB PO SCH (08:41)
[2021-03-10] MEDS: PANTOprazole 40 MG TAB PO SCH (08:41)
[2021-03-10] MEDS: METOPROLOL SUCC 50MG EXT REL TAB PO SCH (08:41)
[2021-03-10] MEDS: ATORVASTATIN 40 MG TAB PO SCH (08:41)
[2021-03-10] MEDS: LOSARTAN POTASSIUM 25 MG TAB PO SCH (08:42)
[2021-03-10] MEDS: MAGNESIUM OXIDE 400 MG TAB PO SCH (08:42)
[2021-03-10] MEDS: DOCUSATE SODIUM 100 MG CAP PO SCH (08:43)
[2021-03-10] MEDS: FLUTICASONE/VILANTEROL 100/25MCG 14 PUFFS/INHALER INH SCH (08:47)
== END 2021-03-10 10:15 | disposition home health service (06) | DRG 190 ==
LOC: ED 09:26 → 2S 11:54 → SUATTDRO 11:54 → 2S 12:40 → 2W 03-07 14:18

== ENCOUNTER 2021-03-22 19:00 | Inpatient (IN) ==
[2021-03-22] MEDS ORDERED: ALBUT/IPRATROP 3MG/0.5MG NEB 3 ML VIAL NEB STA (19:11)
--- NOTE | 2021-03-22 19:16 | Emergency Department Note ---
History of Present Illness General Chief complaint: Shortness of Breath/Dyspnea Time Seen by Provider: 03/22/21 19:02 Source: patient and EMS Mode of arrival: EMS Limitations: no limitations History of Present Illness Provider complaint: Shortness of breath Onset (ago): hour(s) Radiation: non-radiation Severity: moderate Exacerbated By: + none Associated symptoms: + other Treatments prior to arrival: other This is a 75-year-old female presents the emergency department via EMS due to shortness of breath. Patient does live by herself but has a home nurse. Apparently the home nurse called 911 due to concern for increased trouble breathing. EMS states on their arrival patient was working to breathe, was tachypneic and diaphoretic. During transport patient was given 2 DuoNeb treatments, and they feel she has improved. Patient's home nurse stated she was confused, patient states she was falling asleep easily today which is unusual. EMS states despite decreased work of breathing and improvement clinically follo wing the nebulizer treatments, patient still had end-tidal values in the 70s and 80s. Patient states she is a former smoker, does wear home oxygen at 2 L/min daily. She states she does use nebulizer treatments at home but admits she only uses them twice a day instead of 4 times a day. Patient states today when she tried one of her nebulizer treatment she fell asleep. Patient denies any other recent change in medications or known sick contact. Patient states she was recently ill but cannot recall the details of this. Pt seen during a time of high acuity and national emergency pandemic while wearing PPE. Home Medications Medication Instructions Recorded Confirmed Type albuterol sulfate [Ventolin HFA] 2 puff INHALATION QID PRN 12/14/18 03/22/21 History atorvastatin 40 mg PO QAM 12/14/18 03/22/21 History losartan 25 mg PO QAM 12/14/18 03/22/21 History magnesium oxide 400 mg PO QAM 02/13/19 03/22/21 History metoprolol succinate 50 mg PO QAM 04/22/19 03/22/21 History Oxygen Home #1 ea 11/05/19 01/19/21 Rx diclofenac sodium 1 % topical gel 1 ea TOP QID PRN 01/22/20 03/22/21 History tramadol 50 mg tablet 50 mg PO Q6H PRN 01/22/20 03/22/21 History roflumilast 250 mcg tablet 250 mcg PO QAM #90 tab 06/30/20 03/22/21 Rx aspirin 81 mg PO DAILY 01/19/21 03/22/21 History docusate sodium 100 mg PO BID 01/19/21 03/22/21 History budesonide-formoterol 2 puffs INH BID #10.2 gm 01/21/21 03/22/21 Rx pantoprazole 40 mg PO DAILY #30 tab 01/21/21 03/22/21 Rx polyethylene glycol 3350 [Miralax] 17 g PO DAILY PRN #30 ea 01/21/21 03/22/21 Rx Multivitamin Gummies 2 tab PO DAILY 03/04/21 03/22/21 History prednisone 20 mg PO DAILY #3 tab 03/10/21 03/22/21 Rx acetaminophen [Tylenol Extra 1,000 mg PO Q6H PRN 03/22/21 03/22/21 History Strength] calcium carbonate [Tums E-X] 300 mg PO DAILY PRN 03/22/21 03/22/21 History fluticasone propionate [Flonase] 2 spray INTRANASAL DAILY 03/22/21 03/22/21 History ipratropium-albuterol 3 ml INHALATION Q4H PRN 03/22/21 03/22/21 History Allergies Allergy/AdvReac Type Severity Reaction Status Date / Time duloxetine [From Cymbalta] Allergy Mild Rash Verified 03/22/21 19:53 naproxen AdvReac Mild GI SYMPTOMS Verified 03/22/21 19:53 Past Med/Surg History Medical History Altered mental status BCC (basal cell carcinoma of skin) on left side of face---"s/p MOHS surgery" Chronic diastolic heart failure Chronic respiratory failure with hypoxia, on home O2 therapy OXYGEN 3L/MIN VIA NC COPD (chronic obstructive pulmonary disease) inhaler daily/prn and nebulizer prn COPD (chronic obstructive pulmonary disease) Degenerative disc disease Dyslipidemia Fibromyalgia GERD (gastroesophageal reflux disease) Hypertension Hypoxia Metabolic encephalopathy On home oxygen therapy 3L N/C at all times Osteoporosis Palliative care encounter Sinus tachycardia SOB (shortness of breath) on exertion Tremor of both hands Surgical History History of bilateral cataract extraction History of carpal tunnel surgery of right wrist History of colonoscopy with polypectomy History of esophagogastroduodenoscopy (EGD) History of left breast biopsy benign History of mandibular surgery jaw fx History of repair of left rotator cuff History of repair of right rotator cuff History of tooth extraction S/P Mohs surgery for basal cell carcinoma Status post appendectomy Status post excision of lipoma removed off neck x2 Status post hysterectomy Status post repair of ventral hernia Family History Grandfather (Maternal) Family hx of colon cancer Father FH: kidney cancer Family/Other Family history of diabetes mellitus nephew Other Kidney disease Lung disease No family history of adverse response to anesthesia Social History Smoking Status: Former smoker Tobacco Type: Cigarettes Cigarettes Per Day: unsure when she quit; Second Hand Exposure: No; Hx Alcohol Use: No Hx Substance Use: No Preferred Language: Belgian Communication Ability: Effective Director [employer] Required: No Beliefs That Will Affect Care: None marital status: / Current Living Situation: Alone current occupational status: retired How many Children do You have: 3 Feels Safe at Home: Yes Assistive Devices: Nebulizer and Oxygen - Continuous Review of Systems See HPI for pertinent positives & negatives. and A total of 10 systems reviewed and were otherwise negative Physical Exam Vital Signs Vital Signs - 24 hr 03/22/21 19:05 03/22/21 19:30 03/22/21 19:38 Temperature 37 C Temperature Source Oral Pulse Rate 104 H 93 H 88 Pulse Rate [Apical] 88 Pulse Rate from SpO2 Sensor 105 H 93 H Pulse Rhythm Regular Pulse Strength Normal Respiratory Rate 26 H 24 27 H Respiratory Effort / Characteristics Non-Labored Spontaneous Spontaneous Respiratory Depth Shallow Respiratory Pattern Regular Blood Pressure 127/109 H 139/76 Blood Pressure Mean 115 97 Blood Pressure Position Lying Pulse Oximetry 98 93 93 Oxygen Delivery Method Nasal Cannula BiPAP Oxygen Flow Rate 2 8 Fraction of Inspired Oxygen 30 Sepsis Recent Fever Within 48 Hours No Sepsis New/Unexplained Change in Mental Status No Sepsis Action Taken by Nursing No Action Required 03/22/21 20:00 03/22/21 20:03 03/22/21 20:30 Temperature Temperature Source Pulse Rate 100 H 83 Pulse Rate [Apical] Pulse Rate from SpO2 Sensor 96 H 69 Pulse Rhythm Pulse Strength Respiratory Rate 24 24 Respiratory Effort / Characteristics Spontaneous Short of Breath Respiratory Depth Respiratory Pattern Regular Rapid/Shallow Blood Pressure Blood Pressure Mean Blood Pressure Position Pulse Oximetry 93 92 Oxygen Delivery Method Nasal Cannula Oxygen Flow Rate 2 Fraction of Inspired Oxygen Sepsis Recent Fever Within 48 Hours Sepsis New/Unexplained Change in Mental Status Sepsis Action Taken by Nursing 03/22/21 21:00 03/22/21 21:30 03/22/21 22:00 Temperature Temperature Source Pulse Rate 76 82 71 Pulse Rate [Apical] Pulse Rate from SpO2 Sensor 75 82 63 Pulse Rhythm Pulse Strength Respiratory Rate 24 23 24 Respiratory Effort / Characteristics Spontaneous Respiratory Depth Normal Respiratory Pattern Tachypnea Blood Pressure 135/72 Blood Pressure Mean 93 Blood Pressure Position Pulse Oximetry 93 96 99 Oxygen Delivery Method Oxygen Flow Rate Fraction of Inspired Oxygen 40 Sepsis Recent Fever Within 48 Hours Sepsis New/Unexplained Change in Mental Status Sepsis Action Taken by Nursing 03/22/21 22:30 Temperature Temperature Source Pulse Rate 66 Pulse Rate [Apical] Pulse Rate from SpO2 Sensor 66 Pulse Rhythm Pulse Strength Respiratory Rate 21 Respiratory Effort / Characteristics Respiratory Depth Respiratory Pattern Blood Pressure Blood Pressure Mean Blood Pressure Position Pulse Oximetry 98 Oxygen Delivery Method Oxygen Flow Rate Fraction of Inspired Oxygen Sepsis Recent Fever Within 48 Hours Sepsis New/Unexplained Change in Mental Status Sepsis Action Taken by Nursing GENERAL: alert, unwell appearing, well nourished, moderate distress, non-toxic EYE EXAM: normal conjunctiva, PERRL and EOM's grossly intact OROPHARYNX: no exudate, no erythema, lips, buccal mucosa, and tongue normal and mucous membranes are moist NECK: supple, no nuchal rigidity, no adenopathy, non-tender LUNGS: decreased to auscultation b/l. Normal chest wall mechanics, no r/r, slight exp wheeze b/l. HEART: no murmurs, S1 normal and S2 normal ABDOMEN: abdomen soft, non-tender, normo-active bowel sounds, no masses, no re bound or guarding. BACK: Back is symmetrical on inspection and there is no deformity, no midline te nderness, no CVA tenderness. SKIN: no rashes and no bruising UPPER EXTREMITIES: upper extremities are grossly normal. FROM, nml pulses b/l. LOWER EXTREMITIES: No pitting edema. FROM, nml pulses b/l. NEURO EXAM: Oriented to date/time, difficulty recalling recent events or medical hx, cranial nerves II-XII grossly intact, normal speech, no gross weakness of arms, no gross weakness of legs. Gross sensation intact. Course Course 1944: Patient appears more comfortable and improved on BiPAP. Reviewed initial blood gas with RT. 2055: Patient easily aroused, can speak in full her sentences. Appears comfortable on BiPAP. Repeat blood gas pending. 2119: Discussed with Dr. Penny. Administered Medications Amoxicillin/Clavulanate Potassium (Amoxicillin/Clavulanate 875 Mg Tab) 1 tab PO BIDM [facility] Stop: 03/30/21 07:59 Last Admin: 03/23/21 17:39 Dose: 1 tab Documented by: [id number] Admin: 03/23/21 09:23 Dose: 1 tab Documented by: [id number] Aspirin (Aspirin 81 Mg Ectab) 81 mg PO DAILY [facility] Stop: 04/22/21 08:59 Last Admin: 03/23/21 09:23 Dose: 81 mg Documented by: [id number] Atorvastatin Calcium (Atorvastatin 40 Mg Tab) 40 mg PO QAM [facility] Stop: 04/22/21 08:59 Last Admin: 03/23/21 09:24 Dose: 40 mg Documented by: [id number] Docusate Sodium (Docusate Sodium 100 Mg Cap) 100 mg PO BID [facility] Stop: 04/22/21 08:59 Last Admin: 03/23/21 20:27 Dose: 100 mg Documented by: [id number] Admin: 03/23/21 09:24 Dose: 100 mg Documented by: [id number] Enoxaparin Sodium (Enoxaparin Inj 40 Mg/0.4 Ml Syr) 40 mg SQ QAM [facility] Stop: 04/22/21 08:59 Last Admin: 03/23/21 09:25 Dose: 40 mg Documented by: [id number] Fluticasone Propionate (Fluticasone Propionate Na Spr 16 Gm Btl) 2 sprays NA DAILY [facility] Stop: 04/22/21 08:59 Last Admin: 03/23/21 09:22 Dose: 2 sprays Documented by: [id number] Ipratropium Tollhouse (Ipratropium Tollhouse Neb Soln 0.02% 2.5 Ml Vial) 0.5 mg INH Q6R [facility] Stop: 04/22/21 00:59 Last Admin: 03/24/21 00:05 Dose: 0.5 mg Documented by: [id number] Admin: 03/23/21 19:09 Dose: 0.5 mg Documented by: [id number] Admin: 03/23/21 13:20 Dose: 0.5 mg Documented by: [id number] Admin: 03/23/21 07:18 Dose: 0.5 mg Documented by: [id number] Admin: 03/23/21 01:00 Dose: 0.5 mg Documented by: [id number] Levalbuterol HCl (Levalbuterol Hcl 0.63 Mg/3 Ml Neb) 0.63 mg NEB Q6R [facility] Stop: 04/22/21 18:59 Last Admin: 03/24/21 00:05 Dose: 0.63 mg Documented by: [id number] Admin: 03/23/21 19:09 Dose: 0.63 mg Documented by: [id number] Losartan Potassium (Losartan Potassium 25 Mg Tab) 25 mg PO QAM [facility] Stop: 04/22/21 08:59 Last Admin: 03/23/21 09:24 Dose: 25 mg Documented by: [id number] Metoprolol Succinate (Metoprolol Succ 50mg Ext Rel Tab) 50 mg PO QAM [facility] Stop: 04/22/21 08:59 Last Admin: 03/23/21 09:24 Dose: 50 mg Documented by: [id number] Multivitamins/Folic Acid/Vitamin C (Multivitamin Chewable Tab) 2 tab PO DAILY [facility] Stop: 04/22/21 08:59 Last Admin: 03/23/21 09:24 Dose: 2 tab Documented by: [id number] Pantoprazole Sodium (Pantoprazole 40 Mg Tab) 40 mg PO DAILY [facility] Stop: 04/22/21 08:59 Last Admin: 03/23/21 09:25 Dose: 40 mg Documented by: [id number] Roflumilast (Roflumilast 500 Mcg Tab) 250 mcg PO QAM [facility] Stop: 04/22/21 08:59 Last Admin: 03/23/21 09:25 Dose: 250 mcg Documented by: [id number] Discontinued Medications Albuterol (Albut/Ipratrop 3mg/0.5mg Neb 3 Ml Vial) 3 ml NEB NOW STA Stop: 03/22/21 19:12 Last Admin: 03/22/21 19:38 Dose: 3 ml Documented by: [id number] Ampicillin Sodium/Sulbactam Sodium 3,000 mg/ Sodium Chloride 108 mls @ 200 mls/hr IV NOW STA Stop: 03/22/21 22:57 Last Infusion: 03/22/21 23:36 Dose: 0 mls/hr Documented by: [id number] Admin: 03/22/21 22:39 Dose: 200 mls/hr Documented by: [id number] Methylprednisolone 40 mg/ (Syringe) 0.64 mls @ 1.5 mls/min IV DAILY [facility] Stop: 04/22/21 08:59 Last Admin: 03/23/21 09:25 Dose: 1.5 mls/min Documented by: [id number] Sodium Chloride (1/2 Nss) 1,000 mls @ 40 mls/hr IV .Q24H [facility] Stop: 03/24/21 00:54 Last Infusion: 03/23/21 17:24 Dose: 0 mls/hr Documented by: [id number] Admin: 03/23/21 01:41 Dose: 40 mls/hr Documented by: [id number] Ioversol (Optiray 320 100ml) 100 ml IV ONCE ONE Stop: 03/23/21 00:41 Last Admin: 03/23/21 00:41 Dose: 91 ml Documented by: [id number] Levalbuterol HCl (Levalbuterol 1.25mg/0.5ml Neb) 1.25 mg INH Q6R [facility] Stop: 04/22/21 00:59 Last Admin: 03/23/21 13:20 Dose: 1.25 mg Documented by: [id number] Admin: 03/23/21 07:18 Dose: 1.25 mg Documented by: [id number] Admin: 03/23/21 01:00 Dose: 1.25 mg Documented by: [id number] Methylprednisolone (Methylprednisolone 125 Mg/2 Ml Vial) 60 mg IV NOW STA Stop: 03/22/21 20:57 Last Admin: 03/22/21 22:01 Dose: 60 mg Documented by: [id number] Metoprolol Tartrate (Metoprolol Tartrate 1 Mg/Ml Vial) 2.5 mg IV NOW STA Stop: 03/23/21 00:45 Last Admin: 03/23/21 01:40 Dose: 2.5 mg Documented by: [id number] Critical Care Time Critical Care Time: Yes Total Critical Care Time: 42 Critical care of 42 min performed to assess and manage high likelihood of life- threatening respiratory failure, involving labs and imaging performed with assessment to evaluate respiratory failure diagnosis with frequent reassessment. This time includes bedside time, treatment discussions with patient/family/consultants, documentation time and excludes procedure time. Medical Decision Making Differential Diagnosis Differential diagnoses includes but is not limited to pneumonia, bronchitis, COPD/Asthma exacerbation, pneumothorax, pulmonary embolism, congestive heart failure, acute coronary syndrome Medical Records Attestation: I reviewed the patient's medical records. Home Medications Current Medication List: was personally reviewed by me Laboratory Data Attestation: I reviewed the patient's lab results. Result diagrams: 03/23/21 07:59 03/23/21 06:47 Lab Results 03/22/21 03/22/21 03/22/21 Range/Units 19:19 19:19 19:22 WBC 11.36 H (4.8-10.8) K/uL RBC 4.39 (4.2-5.4) M/uL Hgb 12.4 (12.0-16.0) g/dL Hct 41.6 (37-47) % MCV 94.8 (80-100) fL MCH 28.2 (25-34) pg MCHC 29.8 L (32-36) g/dL RDW Std Deviation 47.1 H (36.4-46.3) fL RDW Coeff of Reg 13.6 (11.5-14.5) % Plt Count 224 (130-400) K/uL MPV 10.8 H (7.4-10.4) fL Immature Gran % (Auto) 0.2 % Neut % (Auto) 87.4 % Lymph % (Auto) 7.7 % Hickman % (Auto) 3.5 % Eos % (Auto) 1.1 % Baso % (Auto) 0.1 % Neut # (Auto) 9.93 H (1.4-6.5) K/uL Lymph # (Auto) 0.88 L (1.2-3.4) K/uL Hickman # (Auto) 0.40 (0.11-0.59) K/uL Eos # (Auto) 0.12 (0-0.5) K/uL Baso # (Auto) 0.01 (0-0.2) K/uL Immature Gran # (Auto) 0.02 (0.00-0.02) K/uL APTT (21.0-31.0) Seconds PTT Ratio POC pH (7.35-7.45) POC pCO2 (35-46) mmHg POC pO2 (80-95) mmHg POC HCO3 (19-24) merle/L POC Total CO2 (24-31) mmol/L POC Base Excess (-9-1.8) merle/L POC ABG O2 Sat (90-95) % Sodium (136-145) mmol/L Potassium (3.5-5.1) mmol/L Chloride (98-107) mmol/L Carbon Dioxide (21-32) mmol/L Anion Gap (3-11) BUN (7-18) mg/dl Creatinine (0.6-1.2) mg/dl Est Cr Clr Drug Dosing ml/min Est GFR ( Amer) ml/min Est GFR (Non-Af Amer) ml/min BUN/Creatinine Ratio (10-20) Glucose (70-99) mg/dl Calcium (8.5-10.1) mg/dl Magnesium (1.8-2.4) mg/dl Total Bilirubin (0.2-1) mg/dl AST (15-37) U/L ALT (12-78) U/L Alkaline Phosphatase (45-117) U/L Troponin I (0-0.045) ng/ml NT-Pro-B Natriuret Pep (0-1800) pg/ml Total Protein (6.4-8.2) gm/dl Albumin (3.4-5.0) gm/dl Globulin (2.5-4.0) gm/dl Albumin/Globulin Ratio (0.9-2) Lipase (73-393) U/L COVID-19 Eval Order Covid19 at [facility] SARS-CoV-2 (PCR) NEGATIVE (Negative) 03/22/21 03/22/21 03/22/21 Range/Units 19:22 19:33 21:24 WBC (4.8-10.8) K/uL RBC (4.2-5.4) M/uL Hgb (12.0-16.0) g/dL Hct (37-47) % MCV (80-100) fL MCH (25-34) pg MCHC (32-36) g/dL RDW Std Deviation (36.4-46.3) fL RDW Coeff of Reg (11.5-14.5) % Plt Count (130-400) K/uL MPV (7.4-10.4) fL Immature Gran % (Auto) % Neut % (Auto) % Lymph % (Auto) % Hickman % (Auto) % Eos % (Auto) % Baso % (Auto) % Neut # (Auto) (1.4-6.5) K/uL Lymph # (Auto) (1.2-3.4) K/uL Hickman # (Auto) (0.11-0.59) K/uL Eos # (Auto) (0-0.5) K/uL Baso # (Auto) (0-0.2) K/uL Immature Gran # (Auto) (0.00-0.02) K/uL APTT (21.0-31.0) Seconds PTT Ratio POC pH 7.35 7.37 (7.35-7.45) POC pCO2 87 H 85 H (35-46) mmHg POC pO2 62 L 66 L (80-95) mmHg POC HCO3 48 H 48 H (19-24) merle/L POC Total CO2 > 50 H* > 50 H* (24-31) mmol/L POC Base Excess 23.0 H 23.0 H (-9-1.8) merle/L POC ABG O2 Sat 90.0 (90-95) % Sodium 141 (136-145) mmol/L Potassium 4.3 (3.5-5.1) mmol/L Chloride 96 L (98-107) mmol/L Carbon Dioxide 42 H* (21-32) mmol/L Anion Gap 3.0 (3-11) BUN 16 (7-18) mg/dl Creatinine 0.50 L (0.6-1.2) mg/dl Est Cr Clr Drug Dosing 82.8 ml/min Est GFR ( Amer) 108.2 ml/min Est GFR (Non-Af Amer) 93.4 ml/min BUN/Creatinine Ratio 32.1 H (10-20) Glucose 125 H (70-99) mg/dl Calcium 10.0 (8.5-10.1) mg/dl Magnesium 2.4 (1.8-2.4) mg/dl Total Bilirubin 1.1 H (0.2-1) mg/dl AST 10 L (15-37) U/L ALT 17 (12-78) U/L Alkaline Phosphatase 76 (45-117) U/L Troponin I < 0.015 (0-0.045) ng/ml NT-Pro-B Natriuret Pep 482 (0-1800) pg/ml Total Protein 7.7 (6.4-8.2) gm/dl Albumin 3.8 (3.4-5.0) gm/dl Globulin 3.9 (2.5-4.0) gm/dl Albumin/Globulin Ratio 1.0 (0.9-2) Lipase 69 L (73-393) U/L COVID-19 Eval Order SARS-CoV-2 (PCR) (Negative) 03/22/21 Range/Units 21:38 WBC (4.8-10.8) K/uL RBC (4.2-5.4) M/uL Hgb (12.0-16.0) g/dL Hct (37-47) % MCV (80-100) fL MCH (25-34) pg MCHC (32-36) g/dL RDW Std Deviation (36.4-46.3) fL RDW Coeff of Reg (11.5-14.5) % Plt Count (130-400) K/uL MPV (7.4-10.4) fL Immature Gran % (Auto) % Neut % (Auto) % Lymph % (Auto) % Hickman % (Auto) % Eos % (Auto) % Baso % (Auto) % Neut # (Auto) (1.4-6.5) K/uL Lymph # (Auto) (1.2-3.4) K/uL Hickman # (Auto) (0.11-0.59) K/uL Eos # (Auto) (0-0.5) K/uL Baso # (Auto) (0-0.2) K/uL Immature Gran # (Auto) (0.00-0.02) K/uL APTT 25.1 (21.0-31.0) Seconds PTT Ratio 1.0 POC pH (7.35-7.45) POC pCO2 (35-46) mmHg POC pO2 (80-95) mmHg POC HCO3 (19-24) merle/L POC Total CO2 (24-31) mmol/L POC Base Excess (-9-1.8) merle/L POC ABG O2 Sat (90-95) % Sodium (136-145) mmol/L Potassium (3.5-5.1) mmol/L Chloride (98-107) mmol/L Carbon Dioxide (21-32) mmol/L Anion Gap (3-11) BUN (7-18) mg/dl Creatinine (0.6-1.2) mg/dl Est Cr Clr Drug Dosing ml/min Est GFR ( Amer) ml/min Est GFR (Non-Af Amer) ml/min BUN/Creatinine Ratio (10-20) Glucose (70-99) mg/dl Calcium (8.5-10.1) mg/dl Magnesium (1.8-2.4) mg/dl Total Bilirubin (0.2-1) mg/dl AST (15-37) U/L ALT (12-78) U/L Alkaline Phosphatase (45-117) U/L Troponin I (0-0.045) ng/ml NT-Pro-B Natriuret Pep (0-1800) pg/ml Total Protein (6.4-8.2) gm/dl Albumin (3.4-5.0) gm/dl Globulin (2.5-4.0) gm/dl Albumin/Globulin Ratio (0.9-2) Lipase (73-393) U/L COVID-19 Eval Order SARS-CoV-2 (PCR) (Negative) Imaging Data Radiologist's Impression: Chest X-Ray 03/22/21 19:11 XR chest 1V portable HISTORY: Shortness of breath. COMPARISON: 03/04/2021. FINDINGS: No pneumothorax. No pleural effusions. The cardiac silhouette remains mildly enlarged. Old, healed left humeral neck fracture is again noted. There are low lung volumes. Old, healed left-sided rib fractures. No new focal lung consolidations to suggest pneumonia. No evidence for pulmonary edema. Mild chronic interstitial thickening, unchanged. IMPRESSION: No significant change compared to the prior study. No acute process. ACT 112: Negative or not required by law. Electronically signed by: Brayan Estrada M.D. 03/22/2021 8:16 PM ECG Data Attestation: I personally reviewed and interpreted this ECG as follows: Indication: + SOB/dyspnea Rate (beats per minute): 87 Rhythm: + normal sinus ECG Intervals/blocks: + Normal QRS and + Normal QT ECG [place]: + Normal ECG ST segments: + Normal ST segments MDM Narrative This is a 75-year-old female with extensive pulmonary history of COPD, chronic home oxygen and prior episodes of admission secondary to respiratory failure. Patient found to be hypercapnic, and had been given duo nebs by EMS. Patient transition from nasal cannula to BiPAP due to concern for hypercapnia as patient noted increased somnolence today and elevated end-tidal CO2 was noted by EMS. Due to patient's history she was also given duo nebs and IV Solu-Medrol. Patient monitored down here for improvement and clinically was markedly improved despite only minimal improvement in CO2 on repeat blood gas. Patient maintained on BiPAP, we did discuss all results, and she verbalized understanding. Case discussed with hospitalist for additional inpatient evaluation and management. No evidence of CHF, ACS, or pneumonia. I do not suspect infectious etiology at this time. Patient admits to not using her nebulizer treatments at home as directed. Patient with prior similar episodes. No evidence for bacteremia/sepsis. I do not suspect tamponade, pericarditis/myocarditis, or pleural effusion. An order was placed for continuous cardiac monitoring. The monitor shows a rate of _94_ with _normal sinus_ rhythm. Impression & Plan Acute hypercapnic respiratory failure, AMS (altered mental status), Chronic respiratory failure with hypoxia, on home O2 therapy Discharge Plan Visit Data Chief Complaint: Shortness of Breath/Dyspnea ED Provider: Lashaun Bai Discharge Problem: Acute hypercapnic respiratory failure, AMS (altered mental status), Chronic respiratory failure with hypoxia, on home O2 therapy Patient Disposition: Admitted As Inpatient Discharge Instructions Interventions: ED Discharge Assessment Last Done: 03/23/21 00:08 Discharge Problem: AMS (altered mental status) Qualifiers: Altered mental status type: unspecified Qualified Code(s): R41.82 - Altered mental status, unspecified
[2021-03-22 19:38] LABS: Basophils # (auto) 0.01 K/uL (0-0.2); Basophils % (auto) 0.1 %; Eosinophils # (auto) 0.12 K/uL (0-0.5); Eosinophils % (auto) 1.1 %; Hematocrit (blood only) 41.6 % (37-47); Hemoglobin 12.4 g/dL (12.0-16.0); Immature Granulocytes # (auto) 0.02 K/uL (0.00-0.02); Immature Granulocytes % (auto) 0.2 %; Lymphocytes # (auto) 0.88 K/uL (1.2-3.4); Lymphocytes % (auto) 7.7 %; Mean Corpuscular Hemoglobin 28.2 pg (25-34); Mean Corpuscular Hgb Conc 29.8 g/dL (32-36); Mean Corpuscular Volume 94.8 fL (80-100); Mean Platelet Volume 10.8 fL (7.4-10.4); Monocytes % (auto) 3.5 %; Neutrophils # (auto) 9.93 K/uL (1.4-6.5); Neutrophils % (auto) 87.4 %; Platelet Count 224 K/uL (130-400); RDW Coefficient of Variation 13.6 % (11.5-14.5); RDW Standard Deviation 47.1 fL (36.4-46.3); Red Blood Count 4.39 M/uL (4.2-5.4); White Blood Count 11.36 K/uL (4.8-10.8)
[2021-03-22 20:04] LABS: Alanine Aminotransferase 17 U/L (12-78); Albumin Level 3.8 gm/dl (3.4-5.0); Alkaline Phosphatase 76 U/L (45-117); Aspartate Aminotransferase 10 U/L (15-37); BUN Creatinine Ratio 32.1 (10-20); Bilirubin,Total 1.1 mg/dl (0.2-1); Blood Urea Nitrogen 16 mg/dl (7-18); Carbon Dioxide 42 mmol/L (21-32); Chloride 96 mmol/L (98-107); Creatinine Clr Calc Pharmacy 82.8 ml/min; Est GFR (African American) 108.2 ml/min; Est GFR (Non-African American) 93.4 ml/min; Globulin 3.9 gm/dl (2.5-4.0); Glucose 125 mg/dl (70-99); Magnesium 2.4 mg/dl (1.8-2.4); NT Pro B Type Natriuretic Pept 482 pg/ml (0-1800); Potassium 4.3 mmol/L (3.5-5.1); Sodium 141 mmol/L (136-145); Total Protein 7.7 gm/dl (6.4-8.2); Troponin I < 0.015 ng/ml (0-0.045)
--- NOTE | 2021-03-22 20:17 | XRay Report ---
XR chest 1V portable HISTORY: Shortness of breath. COMPARISON: 03/04/2021. FINDINGS: No pneumothorax. No pleural effusions. The cardiac silhouette remains mildly enlarged. Old, healed left humeral neck fracture is again noted. There are low lung volumes. Old, healed left-sided rib fractures. No new focal lung consolidations to suggest pneumonia. No evidence for pulmonary bea a. Mild chronic interstitial thickening, unchanged. IMPRESSION: No significant change compared to the prior study. No acute process. ACT 112: Negative or not required by law. Electronically signed by: Brayan Estrada M.D. 03/22/2021 8:16 PM
[2021-03-22] MEDS ORDERED: methylPREDNISolone 125 MG/2 ML VIAL IV STA (20:56)
[2021-03-22 21:39] LABS: iSTAT Arterial Blood Gas HCO3 48 meg/L (19-24); iSTAT Arterial Blood Gas pCO2 85 mmHg (35-46); iSTAT Arterial Blood Gas pH 7.37 (7.35-7.45); iSTAT Arterial Blood Gas pO2 66 mmHg (80-95); iSTAT Carbon Dioxide > 50 mmol/L (24-31)
[2021-03-22 22:04] LABS: Partial Thromboplastin Time 25.1 Seconds (21.0-31.0)
[2021-03-22] MEDS ORDERED: AMPICILLIN/SULBACTAM SOD 3,000 MG in 0.9 % SODIUM CHLORIDE 100 ML IV STA (22:25)
--- NOTE | 2021-03-22 22:29 | History & Physical Report ---
Date of Service March 22, 2021 Assessment & Plan (1) COPD exacerbation: Steroid-dependent disease possible aspiration pneumonitis no sepsis for now Chronic systolic heart failure (EF 40 to 45%, TTE 2020) patient euvolemic Hypertension, stable. Hyperlipidemia, statin intolerance on statin Rx IBS/Fibromyalgia as per records. Medical telemetry BiPAP Unasyn followed by Augmentin course Aspiration precautions Swallow eval Nebs RTC Solu-Medrol for now then taper down to patient's daily prednisone dose. Pulmonary consult if without improvement DVT prophylaxis. Lovenox subQ. Full code Text document was generated using Yibail[employer] recognition software. It may contain grammatical or spelling errors. Kindly contact undersigned for clarification of any documentation item in question. History of Present Illness , Skin cancer surgery, jaw fracture surgery, shoulder surgery Chief Complaint: Worsening cough, shortness of breath Primary Care Provider: Ana Laura Oneill [facility] History obtained from patient and records. History somewhat limited from patient due to BiPAP. Medical history significant for chronic systolic heart failure (EF 40 to 45%, TTE 2020), steroid-dependent COPD, hypertension, hyperlipidemia/statin intolerance, GERD, IBS/fibromyalgia, chronic anemia (Baseline globin 10-11), past tobacco abuse. Last confinement 2 weeks ago for respiratory failure secondary to COPD exacerbation. 2 days history of junky cough symptoms with worsening shortness of breath. No chest pain. Achy left-sided abdominal pain. Patient coughing with meals/water intake if not careful. Not sure about recent COVID-19 contacts due to recent confinement. Patient brought to ER by EMS. BiPAP initiated. Solu-Medrol and neb treatment given for CP exacerbation. Medical History as above Surgical History : Hysterectomy, carpal tunnel surgery, breast cyst drainage, appendectomy, cataract surgery, hernia repair, skin cancer surgery, lipoma removal, jaw fracture surgery, shoulder surgeries, dental surgery Family History : COPD, renal cancer Personal/Social history : Past tobacco abuse, occasional EtOH intake, retired [employer] employee Allergies Allergy/AdvReac Type Severity Reaction Status Date / Time duloxetine [From Cymbalta] Allergy Mild Rash Verified 03/22/21 19:53 naproxen AdvReac Mild GI SYMPTOMS Verified 03/22/21 19:53 Home Medications Medication Instructions Recorded Confirmed Type albuterol sulfate [Ventolin HFA] 2 puff INHALATION QID PRN 12/14/18 03/22/21 History atorvastatin 40 mg PO QAM 12/14/18 03/22/21 History losartan 25 mg PO QAM 12/14/18 03/22/21 History magnesium oxide 400 mg PO QAM 02/13/19 03/22/21 History metoprolol succinate 50 mg PO QAM 04/22/19 03/22/21 History Oxygen Home #1 ea 11/05/19 01/19/21 Rx diclofenac sodium 1 % topical gel 1 ea TOP QID PRN 01/22/20 03/22/21 History tramadol 50 mg tablet 50 mg PO Q6H PRN 01/22/20 03/22/21 History roflumilast 250 mcg tablet 250 mcg PO QAM #90 tab 06/30/20 03/22/21 Rx aspirin 81 mg PO DAILY 01/19/21 03/22/21 History docusate sodium 100 mg PO BID 01/19/21 03/22/21 History budesonide-formoterol 2 puffs INH BID #10.2 gm 01/21/21 03/22/21 Rx pantoprazole 40 mg PO DAILY #30 tab 01/21/21 03/22/21 Rx polyethylene glycol 3350 [Miralax] 17 g PO DAILY PRN #30 ea 01/21/21 03/22/21 Rx Multivitamin Gummies 2 tab PO DAILY 03/04/21 03/22/21 History prednisone 20 mg PO DAILY #3 tab 03/10/21 03/22/21 Rx acetaminophen [Tylenol Extra 1,000 mg PO Q6H PRN 03/22/21 03/22/21 History Strength] calcium carbonate [Tums E-X] 300 mg PO DAILY PRN 03/22/21 03/22/21 History fluticasone propionate [Flonase] 2 spray INTRANASAL DAILY 03/22/21 03/22/21 History ipratropium-albuterol 3 ml INHALATION Q4H PRN 03/22/21 03/22/21 History Past Med/Surg History Medical History Altered mental status BCC (basal cell carcinoma of skin) on left side of face---"s/p MOHS surgery" Chronic diastolic heart failure Chronic respiratory failure with hypoxia, on home O2 therapy OXYGEN 3L/MIN VIA NC COPD (chronic obstructive pulmonary disease) inhaler daily/prn and nebulizer prn COPD (chronic obstructive pulmonary disease) Degenerative disc disease Dyslipidemia Fibromyalgia GERD (gastroesophageal reflux disease) Hypertension Hypoxia Metabolic encephalopathy On home oxygen therapy 3L N/C at all times Osteoporosis Palliative care encounter Sinus tachycardia SOB (shortness of breath) on exertion Tremor of both hands Surgical History History of bilateral cataract extraction History of carpal tunnel surgery of right wrist History of colonoscopy with polypectomy History of esophagogastroduodenoscopy (EGD) History of left breast biopsy benign History of mandibular surgery jaw fx History of repair of left rotator cuff History of repair of right rotator cuff History of tooth extraction S/P Mohs surgery for basal cell carcinoma Status post appendectomy Status post excision of lipoma removed off neck x2 Status post hysterectomy Status post repair of ventral hernia Family History Grandfather (Maternal) Family hx of colon cancer Father FH: kidney cancer Family/Other Family history of diabetes mellitus nephew Other Kidney disease Lung disease No family history of adverse response to anesthesia Social History Smoking Status: Former smoker Tobacco Type: Cigarettes Cigarettes Per Day: unsure when she quit; Second Hand Exposure: No; Hx Alcohol Use: No Hx Substance Use: No Preferred Language: Monegasque Communication Ability: Effective Minister Of Religion Required: No Beliefs That Will Affect Care: None marital status: / Current Living Situation: Alone current occupational status: retired How many Children do You have: 3 Feels Safe at Home: Yes Assistive Devices: Cane, Denture - Upper and Walker Review of Systems Review of Systems: As per HPI, all 10 systems reviewed, all other ROS negative Physical Exam Physical Exam: GENERAL: uncomfortable, anxious, no respiratory distress, obese SKIN: Pallor , warm HEENT: Pale palpebral conjunctivae, no ptosis, dry buccal mucosa, BiPAP in place NECK : Supple, short neck, no tenderness CHEST : Decreased breath sounds, no tenderness HEART : RRR, no obvious murmurs ABDOMEN: Some distention, left-sided abdominal tenderness EXTREMITIES : Bilateral LE swelling, no LE tenderness, no other conspicuous deformities noted NEUROLOGIC : Coherent, no facial asymmetry, no other gross focality Results & Data Results & Data ([facility]) Vital Signs (Past 12 Hours) Vital Signs Temp Pulse Pulse Resp BP Pulse Ox 03/22/21 22:00 88 24 94 03/22/21 21:00 76 24 93 03/22/21 20:30 83 24 92 03/22/21 20:00 100 H 24 93 03/22/21 19:38 88 88 27 H 93 03/22/21 19:30 37 C 93 H 24 139/76 93 03/22/21 19:05 104 H 26 H 127/109 H 98 Laboratory Results Laboratory Results WBC 11.36 K/uL (4.8-10.8) H 03/22/21 19:22 RBC 4.39 M/uL (4.2-5.4) 03/22/21 19:22 Hgb 12.4 g/dL (12.0-16.0) 03/22/21 19:22 Hct 41.6 % (37-47) 03/22/21 19:22 MCV 94.8 fL (80-100) 03/22/21 19:22 MCH 28.2 pg (25-34) 03/22/21 19: MCHC 29.8 g/dL (32-36) L 03/22/21 19:22 RDW Std Deviation 47.1 fL (36.4-46.3) H 03/22/21 19:22 RDW Coeff of Reg 13.6 % (11.5-14.5) 03/22/21 19:22 Plt Count 224 K/uL (130-400) 03/22/21 19:22 MPV 10.8 fL (7.4-10.4) H 03/22/21 19:22 Immature Gran % (Auto) 0.2 % 03/22/21 19:22 Neut % (Auto) 87.4 % 03/22/21 19:22 Lymph % (Auto) 7.7 % 03/22/21 19:22 [place] % (Auto) 3.5 % 03/22/21 19:22 Eos % (Auto) 1.1 % 03/22/21 19:22 Baso % (Auto) 0.1 % 03/22/21 19:22 Neut # (Auto) 9.93 K/uL (1.4-6.5) H 03/22/21 19:22 Lymph # (Auto) 0.88 K/uL (1.2-3.4) L 03/22/21 19:22 [place] # (Auto) 0.40 K/uL (0.11-0.59) 03/22/21 19:22 Eos # (Auto) 0.12 K/uL (0-0.5) 03/22/21 19:22 Baso # (Auto) 0.01 K/uL (0-0.2) 03/22/21 19:22 Immature Gran # (Auto) 0.02 K/uL (0.00-0.02) 03/22/21 19:22 APTT 25.1 Seconds (21.0-31.0) 03/22/21 21:38 PTT Ratio 1.0 03/22/21 21:38 POC pH 7.37 (7.35-7.45) 03/22/21 21:24 POC pCO2 85 mmHg (35-46) H 03/22/21 21:24 POC pO2 66 mmHg (80-95) L 03/22/21 21:24 POC HCO3 48 merle/L (19-24) H 03/22/21 21:24 POC Total CO2 > 50 mmol/L (24-31) H* 03/22/21 21:24 POC Base Excess 23.0 merle/L (-9-1.8) H 03/22/21 21:24 POC ABG O2 Sat 90.0 % (90-95) 03/22/21 21:24 Sodium 141 mmol/L (136-145) 03/22/21 19:22 Potassium 4.3 mmol/L (3.5-5.1) 03/22/21 19:22 Chloride 96 mmol/L (98-107) L 03/22/21 19:22 Carbon Dioxide 42 mmol/L (21-32) H* 03/22/21 19:22 Anion Gap 3.0 (3-11) 03/22/21 19:22 BUN 16 mg/dl (7-18) 03/22/21 19:22 Creatinine 0.50 mg/dl (0.6-1.2) L 03/22/21 19:22 Est Cr Clr Drug Dosing 82.8 ml/min 03/22/21 19:22 Est GFR ( Amer) 108.2 ml/min 03/22/21 19:22 Est GFR (Non-Af Amer) 93.4 ml/min 03/22/21 19:22 BUN/Creatinine Ratio 32.1 (10-20) H 03/22/21 19:22 Glucose 125 mg/dl (70-99) H 03/22/21 19:22 Calcium 10.0 mg/dl (8.5-10.1) 03/22/21 19:22 Magnesium 2.4 mg/dl (1.8-2.4) 03/22/21 19:22 Total Bilirubin 1.1 mg/dl (0.2-1) H 03/22/21 19:22 AST 10 U/L (15-37) L 03/22/21 19:22 ALT 17 U/L (12-78) 03/22/21 19:22 Alkaline Phosphatase 76 U/L (45-117) 03/22/21 19:22 Troponin I < 0.015 ng/ml (0-0.045) 03/22/21 19:22 NT-Pro-B Natriuret Pep 482 pg/ml (0-1800) 03/22/21 19:22 Total Protein 7.7 gm/dl (6.4-8.2) 03/22/21 19:22 Albumin 3.8 gm/dl (3.4-5.0) 03/22/21 19:22 Globulin 3.9 gm/dl (2.5-4.0) 03/22/21 19:22 Albumin/Globulin Ratio 1.0 (0.9-2) 03/22/21 19:22 COVID-19 Eval Order Covid19 at [facility] 03/22/21 19:19 SARS-CoV-2 (PCR) NEGATIVE (Negative) 03/22/21 19:19 Impressions Chest X-Ray 03/22/21 19:11 XR chest 1V portable HISTORY: Shortness of breath. COMPARISON: 03/04/2021. FINDINGS: No pneumothorax. No pleural effusions. The cardiac silhouette remains mildly enlarged. Old, healed left humeral neck fracture is again noted. There are low lung volumes. Old, healed left-sided rib fractures. No new focal lung consolidations to suggest pneumonia. No evidence for pulmonary edema. Mild chronic interstitial thickening, unchanged. IMPRESSION: No significant change compared to the prior study. No acute process. ACT 112: Negative or not required by law. Electronically signed by: Brayan Estrada M.D. 03/22/2021 8:[address] abdomen pelvis initial read: Calcified gallstones in gallbladder neck. No evidence of cholecystitis. No biliary ductal dilatation. Diverticulosis. Fatty involution pancreatic head. No bowel obstruction. AAA measuring 2.8 cm at the level of renal arteries and up to 3 cm distally. No evidence of rupture. Post hysterectomy. Nonobstructing right renal stone 2 mm. No hydronephrosis. Mild nonspecific perinephric stranding. EKG as per my interpretation rate 85, NSR, LAD, LAFB, no ischemia
[2021-03-22 22:42] LABS: Lipase 69 U/L (73-393)
[2021-03-23] MEDS ORDERED: ACETAMINOPHEN 325 MG TAB PO PRN (00:25)
[2021-03-23] MEDS ORDERED: POLYETHYLENE (MIRALAX) 17 GM PACK PO PRN (00:25)
[2021-03-23] MEDS ORDERED: PROMETHAZINE HCL 12.5 MG in SODIUM CHLORIDE 0.9% 50 ML IV PRN (00:25)
[2021-03-23] MEDS ORDERED: OPTIRAY 320 100ml IV ONE (00:40)
[2021-03-23] MEDS ORDERED: METOPROLOL TARTRATE 1 MG/ML VIAL IV STA (00:44)
[2021-03-23] MEDS ORDERED: SODIUM CHLORIDE 0.45 % 1,000 ML IV SCH (00:55)
[2021-03-23] MEDS ORDERED: XOPENEX/ATROVENT 1.25mg/0.5MG NEB COMBO NEB SCH (01:00)
[2021-03-23] MEDS: LEVALBUTEROL 1.25MG/0.5ML NEB INH SCH ×3 (01:00→13:20)
[2021-03-23] MEDS: IPRATROPIUM BROMIDE NEB SOLN 0.02% 2.5 ML VIAL INH SCH ×4 (01:00→19:09)
[2021-03-23 02:07] LABS: Appearance Urine Cloudy (Clear); Bilirubin Urine Negative (Negative); Blood Urine Negative (Negative); Cast Urine Automated 0 /lpf (0-5); Color Urine Yellow; Epithelial Cell Urine Auto >30 /lpf (0-5); Glucose Urine UA Negative (Negative); Ketones Urine 1+ (Negative); Leukocyte Esterase Urine Negative (Negative); Nitrite Urine Negative (Negative); Protein Urine Negative (Negative); Specific Gravity Urine 1.045 (1.000-1.030); Urobilinogen Urine Negative (Negative); pH Urine 7.5 (4.5-7.5)
[2021-03-23 02:17] LABS: RBC Urine Automated 0-4 /hpf (0-4)
[2021-03-23 02:18] LABS: Bacteria Urine Automated 1+ (Negative)
[2021-03-23 07:41] LABS: BUN Creatinine Ratio 48.8 (10-20); Calcium 9.3 mg/dl (8.5-10.1); Creatinine Clr Calc Pharmacy 106.1 ml/min; Est GFR (African American) 117.4 ml/min; Est GFR (Non-African American) 101.3 ml/min; Potassium 4.4 mmol/L (3.5-5.1)
--- NOTE | 2021-03-23 08:33 | CT Scan Report ---
CT abd pelvis IV con only CLINICAL HISTORY: Left-sided abdominal pain COMPARISON STUDY: None. TECHNIQUE: The patient was scanned in a dynamic helical fashion during intravenous administration of 91 cc of Optiray 320 A dose lowering technique was utilized adhering to the principles of ALARA. CT DOSE: 449.12 mGy.cm FINDINGS: Lower chest: There are basilar atelectatic changes Liver: The contrast-enhanced liver is normal in size, contour, and attenuation. There is no intrahepa tic biliary ductal dilatation. The hepatic veins and portal veins are patent. Gallbladder: Cholelithiasis Spleen: Normal in size and attenuation. Pancreas: There is a 9 mm nodule arising from the anterior aspect of the mid pancreatic body. This st atistically represents normal exophytic pancreatic tissue although other pathologic entities cannot b e excluded with certainty. A six-month follow-up CT scan is recommended. Adrenal glands: Unremarkable. Kidneys: There is a punctate right renal calculus versus early contrast enhancement. No solid renal m asses are visualized. There is no hydronephrosis. Bowel: There are no transition zones to indicate bowel obstruction. There is extensive colonic divert iculosis. There are no acute peridiverticular inflammatory changes. There are no findings to indicate acute appendicitis. Peritoneum: There is no intraperitoneal free air or abdominal ascites. Vasculature: There is a 31 mm infrarenal abdominal aortic aneurysm. Adenopathy: None. Pelvic viscera: The uterus is surgically absent. Skeletal structures: No destructive osseous lesions are seen. IMPRESSION: 1. No evidence of bowel obstruction. No evidence of free air 2. Extensive colonic diverticulosis. No evidence of acute diverticulitis 3. No evidence of acute appendicitis 4. Cholelithiasis 5. 31 mm infrarenal abdominal aortic aneurysm 6. 9 mm anterior pancreatic lobulation versus nodule. A six-month follow-up CT scan is recommended. 7. Probable punctate nonobstructing right renal calculus ACT 112: Positive. There are findings on this exam that require communication between the performing entity and the patient following Patient Test Result Information Act ([place] Act 112) guidelines. Electronically signed by: Darrian Montanez M.D. 03/23/2021 8:31 AM
[2021-03-23 08:35] LABS: Hematocrit (blood only) 38.8 % (37-47); Hemoglobin 11.7 g/dL (12.0-16.0); Immature Granulocytes # (auto) 0.01 K/uL (0.00-0.02); Immature Granulocytes % (auto) 0.2 %; Lymphocytes # (auto) 0.78 K/uL (1.2-3.4); Lymphocytes % (auto) 12.3 %; Mean Corpuscular Hemoglobin 27.5 pg (25-34); Mean Corpuscular Hgb Conc 30.2 g/dL (32-36); Mean Corpuscular Volume 91.3 fL (80-100); Monocytes # (auto) 0.26 K/uL (0.11-0.59); Monocytes % (auto) 4.1 %; Neutrophils % (auto) 83.4 %; Platelet Count 204 K/uL (130-400); RDW Coefficient of Variation 13.7 % (11.5-14.5); RDW Standard Deviation 45.3 fL (36.4-46.3); Red Blood Count 4.25 M/uL (4.2-5.4); White Blood Count 6.35 K/uL (4.8-10.8)
[2021-03-23] MEDS ORDERED: AUGMENTIN CONSULT PHARMACY PRN (09:00)
[2021-03-23] MEDS ORDERED: methylPREDNISolone 40 MG in SYRINGE 0 ML IV SCH (09:00)
[2021-03-23] MEDS: FLUTICASONE PROPIONATE NA SPR 16 GM BTL SCH (09:22)
[2021-03-23] MEDS: ASPIRIN 81 MG ECTAB PO SCH (09:23)
[2021-03-23] MEDS: AMOXICILLIN/CLAVULANATE 875 MG TAB PO SCH ×2 (09:23→17:39)
[2021-03-23] MEDS: METOPROLOL SUCC 50MG EXT REL TAB PO SCH (09:24)
[2021-03-23] MEDS: MULTIVITAMIN CHEWABLE TAB PO SCH (09:24)
[2021-03-23] MEDS: LOSARTAN POTASSIUM 25 MG TAB PO SCH (09:24)
[2021-03-23] MEDS: ATORVASTATIN 40 MG TAB PO SCH (09:24)
[2021-03-23] MEDS: DOCUSATE SODIUM 100 MG CAP PO SCH ×2 (09:24→20:27)
[2021-03-23] MEDS: ENOXAPARIN INJ 40 MG/0.4 ML SYR SQ SCH (09:25)
[2021-03-23] MEDS: PANTOprazole 40 MG TAB PO SCH (09:25)
[2021-03-23] MEDS: ROFLUMILAST 500 MCG TAB PO SCH (09:25)
[2021-03-23 12:23] LABS: iSTAT Arterial Blood Gas pCO2 87 mmHg (35-46); iSTAT Arterial Blood Gas pH 7.35 (7.35-7.45); iSTAT Arterial Blood Gas pO2 62 mmHg (80-95); iSTAT Carbon Dioxide > 50 mmol/L (24-31)
[2021-03-23 12:24] LABS: iSTAT Arterial Blood Gas HCO3 48 meg/L (19-24)
--- NOTE | 2021-03-23 16:48 | Hospitalist Progress Note ---
Date of Service March 23, 2021 Assessment & Plan (1) COPD exacerbation: Acute on chronic COPD exacerbation Acute on chronic respiratory failure with hypoxia and Hypercarbia Chronic Oxygen dependency--on 2 liters at baseline Possible aspiration pneumonitis Non Compliance with AVAP machine use CXR:No significant change compared to the prior study. No acute process. Continue Augmentin Counseled on importance of being complaint with AVAP machine use Continue bronchodilators, darlisep Continue BiPAP while hospitalized as needed Consider pulmonology evaluation if needed Continue supplemental oxygen Taper steroids as able Check VBG in AM Abnormal UA To R/O UTI Urine culture pending Chronic systolic heart failure EF 40 to 45%, TTE 2020 Patient euvolemic Monitor Volume status Hypertension stable Hyperlipidemia On statin IBS/Fibromyalgia As per records. GERD Continue PPI DVT Px Lovenox SQ Code Status Full code Admission and Anticipated Discharge Date Admission Date: March 22, 2021 Subjective Patient is seen and examined at bedside Dyspnea better today Denies any significant cough Denies chest pain, dizziness, nausea, abdominal pain Admits to being noncompliant with AVAP machine Review of Systems Review of Systems: All systems reviewed & are unremarkable except as noted in HPI & below Physical Exam Physical Exam: Physical Exam: Vitals signs as noted above General Appearance:Moderately built and nourished, no apparent distress Head: normocephalic, Atraumatic Eyes: normal inspection, EOMI Neck: supple, Trachea midline Respiratory/Chest: Decreased breath sounds, CTA Cardiovascular: S1, S2, No murmur Abdomen/GI:Soft, Non tender, Bowel sounds present Extremities/Musculoskeletal:normal inspection, no edema Neurologic/Psych:AAOX3, grossly no focal neurological deficits Skin: normal color, warm Results & Data Results & Data ([facility]) Vital Signs (Past 12 Hours) Vital Signs Temp Pulse Pulse Resp BP Pulse Ox 03/23/21 15:30 36.7 C 113 H 16 110/68 95 03/23/21 14:21 102 H 03/23/21 13:22 94 H 20 95 03/23/21 11:14 36.9 C 83 16 135/61 99 03/23/21 08:01 36.5 C 93 H 18 153/80 H 98 03/23/21 07:19 62 62 25 H 98 03/23/21 07:00 74 Laboratory Results Short CBC 03/22/21 03/23/21 03/23/21 Range/Units 19:22 06:47 07:59 WBC 11.36 H Cancelled 6.35 (4.8-10.8) K/uL Hgb 12.4 Cancelled 11.7 L (12.0-16.0) g/dL Hct 41.6 Cancelled 38.8 (37-47) % Plt Count 224 Cancelled 204 (130-400) K/uL BMP 03/22/21 03/23/21 19:22 06:47 Sodium 141 137 Potassium 4.3 4.4 Chloride 96 L 97 L Carbon Dioxide 42 H* 36 H BUN 16 19 H Creatinine 0.50 L 0.39 L Glucose 125 H 110 H Calcium 10.0 9.3 Cardiac Enzymes 03/22/21 Range/Units 19:22 Troponin I < 0.015 (0-0.045) ng/ml Liver Function 03/22/21 Range/Units 19:22 Total Bilirubin 1.1 H (0.2-1) mg/dl AST 10 L (15-37) U/L ALT 17 (12-78) U/L Alkaline Phosphatase 76 (45-117) U/L Albumin 3.8 (3.4-5.0) gm/dl Urine 03/23/21 Range/Units 01:23 Urine Color Yellow Urine Appearance Cloudy A (Clear) Urine pH 7.5 (4.5-7.5) Ur Specific [place] 1.045 H (1.000-1.030) Urine Protein Negative (Negative) Urine Glucose (UA) Negative (Negative)
[2021-03-23] MEDS: LEVALBUTEROL HCL 0.63 MG/3 ML NEB NEB SCH (19:09)
[2021-03-24] MEDS: LEVALBUTEROL HCL 0.63 MG/3 ML NEB NEB SCH ×4 (00:05→19:42)
[2021-03-24] MEDS: IPRATROPIUM BROMIDE NEB SOLN 0.02% 2.5 ML VIAL INH SCH ×4 (00:05→19:42)
[2021-03-24] MEDS ORDERED: MICONAZOLE NITRATE POWDER 43 GM EXT PRN (00:20)
[2021-03-24 07:27] LABS: Hematocrit (blood only) 35.8 % (37-47); Hemoglobin 10.8 g/dL (12.0-16.0); Mean Corpuscular Hemoglobin 27.7 pg (25-34); Mean Corpuscular Hgb Conc 30.2 g/dL (32-36); Mean Corpuscular Volume 91.8 fL (80-100); Mean Platelet Volume 10.8 fL (7.4-10.4); Platelet Count 189 K/uL (130-400); RDW Coefficient of Variation 13.7 % (11.5-14.5); RDW Standard Deviation 45.9 fL (36.4-46.3); White Blood Count 8.84 K/uL (4.8-10.8)
[2021-03-24 07:39] LABS: Base Excess VBG 17.2 mEq/L; Oxygen Saturation VBG 79.4 %; pH VBG 7.36 (7.36-7.41)
[2021-03-24 08:09] LABS: BUN Creatinine Ratio 42.6 (10-20); Calcium 9.3 mg/dl (8.5-10.1); Creatinine Clr Calc Pharmacy 71.4 ml/min; Est GFR (African American) 103.6 ml/min; Est GFR (Non-African American) 89.4 ml/min; Magnesium 2.4 mg/dl (1.8-2.4); Potassium 3.7 mmol/L (3.5-5.1)
[2021-03-24] MEDS: AMOXICILLIN/CLAVULANATE 875 MG TAB PO SCH ×2 (08:56→15:25)
[2021-03-24] MEDS: PANTOprazole 40 MG TAB PO SCH (08:56)
[2021-03-24] MEDS: DOCUSATE SODIUM 100 MG CAP PO SCH ×2 (08:56→20:29)
[2021-03-24] MEDS: predniSONE 10 MG TABLET PO SCH (08:57)
[2021-03-24] MEDS: METOPROLOL SUCC 50MG EXT REL TAB PO SCH (08:57)
[2021-03-24] MEDS: MULTIVITAMIN CHEWABLE TAB PO SCH (08:58)
[2021-03-24] MEDS: ASPIRIN 81 MG ECTAB PO SCH (08:59)
[2021-03-24] MEDS: LOSARTAN POTASSIUM 25 MG TAB PO SCH (08:59)
[2021-03-24] MEDS: ATORVASTATIN 40 MG TAB PO SCH (09:00)
[2021-03-24] MEDS: ENOXAPARIN INJ 40 MG/0.4 ML SYR SQ SCH (09:02)
[2021-03-24] MEDS: FLUTICASONE PROPIONATE NA SPR 16 GM BTL SCH (09:02)
[2021-03-24] MEDS: ROFLUMILAST 500 MCG TAB PO SCH (11:43)
--- NOTE | 2021-03-24 15:12 | Hospitalist Progress Note ---
Date of Service March 24, 2021 Assessment & Plan (1) COPD exacerbation: Acute on chronic COPD exacerbation Acute on chronic respiratory failure with hypoxia and Hypercarbia Chronic Oxygen dependency--on 2 liters at baseline Possible aspiration pneumonitis Non Compliance with AVAP machine use CXR:No significant change compared to the prior study. No acute process. Continue Augmentin Counseled on importance of being complaint with AVAP machine use Continue bronchodilators, darlisep Consider pulmonology evaluation if needed Continue supplemental oxygen Continue to taper prednisone as able Counseled on the importance of using BiPAP overnight Abnormal UA UTI ruled out Urine culture: Negative Chronic systolic heart failure EF 40 to 45%, TTE 2020 Patient euvolemic Monitor Volume status Hypertension stable Hyperlipidemia On statin IBS/Fibromyalgia As per records. GERD Continue PPI DVT Px Lovenox SQ Code Status Full code Admission and Anticipated Discharge Date Admission Date: March 22, 2021 Subjective Patient is seen and examined at bedside Less cough, Dyspnea today No new complaints Denies chest pain, dizziness, nausea, abdominal pain Used Bipap overnight only for few hours Review of Systems Review of Systems: All systems reviewed & are unremarkable except as noted in HPI & below Physical Exam Physical Exam: Physical Exam: Vitals signs as noted above General Appearance:Moderately built and nourished, no apparent distress Head: normocephalic, Atraumatic Eyes: normal inspection, EOMI Neck: supple, Trachea midline Respiratory/Chest: Decreased breath sounds, Expiratory wheezes Cardiovascular: S1, S2, No murmur Abdomen/GI:Soft, Non tender, Bowel sounds present Extremities/Musculoskeletal:normal inspection, no edema Neurologic/Psych:AAOX3, grossly no focal neurological deficits Skin: normal color, warm Results & Data Results & Data ([facility]) Vital Signs (Past 12 Hours) Vital Signs Temp Pulse Resp BP Pulse Ox 03/24/21 13:16 104 H 18 97 03/24/21 11:08 36.4 C L 80 18 114/61 94 03/24/21 08:00 36.4 C L 102 H 19 154/71 H 95 03/24/21 07:10 103 H 18 97 Laboratory Results Short CBC 03/24/21 Range/Units 07:16 WBC 8.84 (4.8-10.8) K/uL Hgb 10.8 L (12.0-16.0) g/dL Hct 35.8 L (37-47) % Plt Count 189 (130-400) K/uL BMP 03/24/21 07:16 Sodium 141 Potassium 3.7 D Chloride 98 Carbon Dioxide 42 H* BUN 24 H Creatinine 0.57 L Glucose 93 Calcium 9.3
[2021-03-24] MEDS: traMADol HCL 50 MG TABLET PO PRN ×2 (15:23→22:49)
[2021-03-25] MEDS: IPRATROPIUM BROMIDE NEB SOLN 0.02% 2.5 ML VIAL INH SCH ×4 (01:07→19:42)
[2021-03-25] MEDS: LEVALBUTEROL HCL 0.63 MG/3 ML NEB NEB SCH ×4 (01:07→19:42)
--- NOTE | 2021-03-25 05:32 | Electrocardiogram Report ---
Test Reason : Blood Pressure : / mmHG Vent. Rate : 087 BPM Atrial Rate : 087 BPM P-R Int : 118 ms QRS Dur : 080 ms QT Int : 358 ms P-R-T Axes : 045 000 054 degrees QTc Int : 430 ms Normal sinus rhythm Normal ECG When compared with ECG of 05-MAR-2021 04:49, No significant change was found Confirmed by Salvador Silverio ([id number]) on 03/25/2021 5:32:44 AM Referred By: REFERRED SELF Confirmed By:Salvador Silverio
[2021-03-25 06:38] LABS: BUN Creatinine Ratio 40.4 (10-20); Calcium 8.7 mg/dl (8.5-10.1); Creatinine Clr Calc Pharmacy 72.7 ml/min; Est GFR (African American) 103.6 ml/min; Est GFR (Non-African American) 89.4 ml/min; Magnesium 2.1 mg/dl (1.8-2.4); Potassium 3.7 mmol/L (3.5-5.1)
[2021-03-25] MEDS: ENOXAPARIN INJ 40 MG/0.4 ML SYR SQ SCH (08:12)
[2021-03-25] MEDS: DOCUSATE SODIUM 100 MG CAP PO SCH ×2 (08:12→20:08)
[2021-03-25] MEDS: MULTIVITAMIN CHEWABLE TAB PO SCH ×2 (08:12→08:17)
[2021-03-25] MEDS: LOSARTAN POTASSIUM 25 MG TAB PO SCH (08:13)
[2021-03-25] MEDS: predniSONE 10 MG TABLET PO SCH (08:13)
[2021-03-25] MEDS: METOPROLOL SUCC 50MG EXT REL TAB PO SCH (08:13)
[2021-03-25] MEDS: AMOXICILLIN/CLAVULANATE 875 MG TAB PO SCH ×2 (08:13→17:39)
[2021-03-25] MEDS: PANTOprazole 40 MG TAB PO SCH (08:13)
[2021-03-25] MEDS: ATORVASTATIN 40 MG TAB PO SCH (08:13)
[2021-03-25] MEDS: ASPIRIN 81 MG ECTAB PO SCH (08:13)
[2021-03-25] MEDS: ROFLUMILAST 500 MCG TAB PO SCH (08:13)
[2021-03-25] MEDS: FLUTICASONE PROPIONATE NA SPR 16 GM BTL SCH (08:14)
[2021-03-25] MEDS: traMADol HCL 50 MG TABLET PO PRN (08:29)
--- NOTE | 2021-03-25 17:11 | Hospitalist Progress Note ---
Date of Service March 25, 2021 Assessment & Plan (1) COPD exacerbation: Acute on chronic COPD exacerbation Acute on chronic respiratory failure with hypoxia and Hypercarbia Chronic Oxygen dependency--on 2 liters at baseline Possible aspiration pneumonitis Non Compliance with AVAP machine use CXR:No significant change compared to the prior study. No acute process. Continue Augmentin to complete 5 day course Continue bronchodilators, darlisep Continue supplemental oxygen Continue to taper prednisone as able Counseled on the importance of using BiPAP overnight while hospitalized and AVAP at home Plan to discharge to rehab facility as able Clinically improving Abnormal UA UTI ruled out Urine culture: Negative Chronic systolic heart failure EF 40 to 45%, TTE 2020 Patient euvolemic Monitor Volume status Hypertension stable Hyperlipidemia On statin IBS/Fibromyalgia As per records. GERD Continue PPI DVT Px Lovenox SQ Code Status Full code Admission and Anticipated Discharge Date Admission Date: March 22, 2021 Subjective Patient is seen and examined at bedside States feeling much better today Admits to using BiPAP for about 5 hours overnight No new complaints Denies any significant cough, dyspnea Also denies chest pain, dizziness, nausea, abdominal pain Review of Systems Review of Systems: All systems reviewed & are unremarkable except as noted in HPI & below Physical Exam Physical Exam: Physical Exam: Vitals signs as noted above General Appearance:Moderately built and nourished, no apparent distress Head: normocephalic, Atraumatic Eyes: normal inspection, EOMI Neck: supple, Trachea midline Respiratory/Chest: Decreased breath sounds, minimal expiratory wheezes Cardiovascular: S1, S2, No murmur Abdomen/GI:Soft, Non tender, Bowel sounds present Extremities/Musculoskeletal:normal inspection, no edema Neurologic/Psych:AAOX3, grossly no focal neurological deficits Skin: normal color, warm Results & Data Results & Data ([facility]) Vital Signs (Past 12 Hours) Vital Signs Temp Pulse Pulse Resp BP Pulse Ox 03/25/21 16:29 36.4 C L 70 22 149/82 H 98 03/25/21 12:58 68 20 97 03/25/21 11:56 36.9 C 96 H 16 135/86 87 L 03/25/21 07:48 86 03/25/21 07:37 36.4 C L 85 16 130/78 93 03/25/21 07:21 91 H 18 92 Laboratory Results [facility] 03/25/21 05:32 Sodium 140 Potassium 3.7 Chloride 100 Carbon Dioxide 40 H BUN 23 H Creatinine 0.57 L Glucose 88 Calcium 8.7
[2021-03-26] MEDS: LEVALBUTEROL HCL 0.63 MG/3 ML NEB NEB SCH ×4 (00:16→19:06)
[2021-03-26] MEDS: IPRATROPIUM BROMIDE NEB SOLN 0.02% 2.5 ML VIAL INH SCH ×4 (00:17→19:06)
[2021-03-26 05:53] LABS: Hematocrit (blood only) 36.6 % (37-47); Mean Corpuscular Hemoglobin 27.6 pg (25-34); Mean Corpuscular Hgb Conc 30.1 g/dL (32-36); Mean Corpuscular Volume 91.7 fL (80-100); Mean Platelet Volume 11.1 fL (7.4-10.4); Platelet Count 178 K/uL (130-400); RDW Coefficient of Variation 13.7 % (11.5-14.5); RDW Standard Deviation 46.2 fL (36.4-46.3); Red Blood Count 3.99 M/uL (4.2-5.4); White Blood Count 6.66 K/uL (4.8-10.8)
[2021-03-26 06:11] LABS: BUN Creatinine Ratio 32.6 (10-20); Calcium 8.8 mg/dl (8.5-10.1); Creatinine Clr Calc Pharmacy 78.2 ml/min; Est GFR (African American) 106.1 ml/min; Est GFR (Non-African American) 91.6 ml/min; Magnesium 2.3 mg/dl (1.8-2.4)
[2021-03-26] MEDS: PANTOprazole 40 MG TAB PO SCH (08:39)
[2021-03-26] MEDS: AMOXICILLIN/CLAVULANATE 875 MG TAB PO SCH ×2 (08:39→16:31)
[2021-03-26] MEDS: traMADol HCL 50 MG TABLET PO PRN ×2 (08:39→23:06)
[2021-03-26] MEDS: ROFLUMILAST 500 MCG TAB PO SCH (08:39)
[2021-03-26] MEDS: METOPROLOL SUCC 50MG EXT REL TAB PO SCH (08:40)
[2021-03-26] MEDS: MULTIVITAMIN CHEWABLE TAB PO SCH ×2 (08:40→09:20)
[2021-03-26] MEDS: ASPIRIN 81 MG ECTAB PO SCH (08:40)
[2021-03-26] MEDS: LOSARTAN POTASSIUM 25 MG TAB PO SCH (08:40)
[2021-03-26] MEDS: ATORVASTATIN 40 MG TAB PO SCH (08:40)
[2021-03-26] MEDS: predniSONE 10 MG TABLET PO SCH (08:40)
[2021-03-26] MEDS: ENOXAPARIN INJ 40 MG/0.4 ML SYR SQ SCH (08:41)
[2021-03-26] MEDS: FLUTICASONE PROPIONATE NA SPR 16 GM BTL SCH (08:42)
[2021-03-26] MEDS: DOCUSATE SODIUM 100 MG CAP PO SCH ×3 (08:42→20:45)
--- NOTE | 2021-03-26 14:10 | Hospitalist Progress Note ---
Date of Service March 26, 2021 Assessment & Plan (1) COPD exacerbation: Acute on chronic respiratory failure due to COPD exacerbation Acute on chronic respiratory failure with hypoxia and Hypercarbia Chronic Oxygen dependency--on 2 liters at baseline Possible aspiration pneumonitis Non Compliance with AVAP machine use CXR:No significant change compared to the prior study. No acute process. Continue Augmentin to complete 5 day course Continue bronchodilators, darlisep respiratory status improved to baseline Counseled on the importance of using BiPAP overnight has Trilogy machine at home plan for dc home in with home health in am Abnormal UA UTI ruled out Urine culture: Negative Chronic systolic heart failure EF 40 to 45%, TTE 2020 Patient euvolemic Monitor Volume status Hypertension stable Hyperlipidemia On statin IBS/Fibromyalgia As per records. GERD Continue PPI DVT Px Lovenox SQ Code Status Full code Disposition : discharge to home with home health tomorrow 03/27/21 Admission and Anticipated Discharge Date Admission Date: March 22, 2021 Subjective follow up visit for COPD exacerbation : pt reports her breathing back to baseline line , no complain of BARONE , cough has improved significantly no fever or chills on 2 L 02 via nasal canula No new complaints Denies any significant cough, dyspnea Also denies chest pain, dizziness, nausea, abdominal pain eager to be discharged home Review of Systems Review of Systems: All systems reviewed & are unremarkable except as noted in Subjective Physical Exam Physical Exam: Physical exam: General: No acute distress, alert awake oriented x3 HEENT: PERRLA, EOMI, Heart: Regular S1-S2, no carotid bruit, no JVD, no lower extremity edema Lungs: no wheeze or rales , normal breath sound Abdomen: Soft nontender, no organomegaly Extremity: No cyanosis, no deformity, normal strength 5 out of 5 with upper and lower Neuro: No focal neurological deficit normal speech, normal visual field, Motor strength : normal both upper and lower extremity, sensation intact Psych: Alert awake oriented x3, normal affect Results & Data Results & Data ([facility]) Vital Signs (Past 12 Hours) Vital Signs Temp Pulse Resp BP Pulse Ox 03/26/21 12:43 69 22 97 03/26/21 11:31 36.7 C 69 20 134/79 97 03/26/21 07:46 36.7 C 79 20 128/71 99 03/26/21 07:30 78 18 96 03/26/21 04:20 36.7 C 88 20 128/73 98
[2021-03-27] MEDS: IPRATROPIUM BROMIDE NEB SOLN 0.02% 2.5 ML VIAL INH SCH ×2 (00:18→07:02)
[2021-03-27] MEDS: LEVALBUTEROL HCL 0.63 MG/3 ML NEB NEB SCH ×2 (00:18→07:02)
[2021-03-27] MEDS: ATORVASTATIN 40 MG TAB PO SCH (07:40)
[2021-03-27] MEDS: METOPROLOL SUCC 50MG EXT REL TAB PO SCH (07:40)
[2021-03-27] MEDS: ASPIRIN 81 MG ECTAB PO SCH (07:40)
[2021-03-27] MEDS: ROFLUMILAST 500 MCG TAB PO SCH (07:40)
[2021-03-27] MEDS: AMOXICILLIN/CLAVULANATE 875 MG TAB PO SCH (07:41)
[2021-03-27] MEDS: predniSONE 10 MG TABLET PO SCH (07:41)
[2021-03-27] MEDS: PANTOprazole 40 MG TAB PO SCH (07:41)
[2021-03-27] MEDS: LOSARTAN POTASSIUM 25 MG TAB PO SCH (07:42)
[2021-03-27] MEDS: FLUTICASONE PROPIONATE NA SPR 16 GM BTL SCH (07:47)
[2021-03-27] MEDS: DOCUSATE SODIUM 100 MG CAP PO SCH (07:47)
[2021-03-27] MEDS: MULTIVITAMIN CHEWABLE TAB PO SCH (07:47)
[2021-03-27] MEDS: ENOXAPARIN INJ 40 MG/0.4 ML SYR SQ SCH (07:48)
--- NOTE | 2021-03-27 17:23 | Discharge Summary ---
Date of Service March 27, 2021 Admission HPI Per Admitting Provider History obtained from patient and records. History somewhat limited from patient due to BiPAP. Medical history significant for chronic systolic heart failure (EF 40 to 45%, TTE 2020), steroid-dependent COPD, hypertension, hyperlipidemia/statin intolerance, GERD, IBS/fibromyalgia, chronic anemia (Baseline globin 10-11), past tobacco abuse. Last confinement 2 weeks ago for respiratory failure secondary to COPD exace rbation. 2 days history of junky cough symptoms with worsening shortness of breath. No chest pain. Achy left-sided abdominal pain. Patient coughing with meals/water intake if not careful. Not sure about recent COVID-19 contacts due to recent confinement. Patient brought to ER by EMS. BiPAP initiated. Solu-Medrol and neb treatment given for CP exacerbation. Medical History as above Surgical History : Hysterectomy, carpal tunnel surgery, breast cyst drainage, appendectomy, cataract surgery, hernia repair, skin cancer surgery, lipoma removal, jaw fracture surgery, shoulder surgeries, dental surgery Family History : COPD, renal cancer Personal/Social history : Past tobacco abuse, occasional EtOH intake, retired [email or web address] employee Principal Diagnosis Follow up with Gastroenterology in clinic to schedule EGD and colonoscopy for anemia Discharge Exam Physical exam: General: No acute distress, alert awake oriented x3 HEENT: PERRLA, EOMI, Heart: Regular S1-S2, no carotid bruit, no JVD, no lower extremity edema Lungs: Clear to auscultate, no wheeze or rales Abdomen: Soft nontender, no organomegaly Extremity: No cyanosis, no deformity, normal strength 5 out of 5 with upper and lower Neuro: No focal neurological deficit normal speech, normal visual field, Motor strength : normal both upper and lower extremity, sensation intact Psych: Alert awake oriented x3, normal affect Constitutional cooperative and comfortable Eyes PERRL, conjunctivae normal, anicteric sclerae EOM intact bilaterally ENMT external ear and nose normal, oropharynx normal Neck normal visual inspection Respiratory normal respiratory effort, lungs clear to auscultation Cardiovascular Rate/Rhythm: regular rate Gastrointestinal (Abdomen) normal bowel sounds, soft, nontender, no hepatosplenomegaly Musculoskeletal Head/Neck/Chest: normocephalic and head atraumatic Extremities: + upper extremity abnormal to inspection (left arm in splint) Neurologic PERRL, EOMI, accommodation nl, no face palsy, no dysarthria CN's II-XI intact bilaterally Psychiatric A+Ox3, euthymic affect Discharge Data Allergies Allergy/AdvReac Type Severity Reaction Status Date / Time duloxetine [From Cymbalta] Allergy Mild Rash Verified 03/22/21 19:53 naproxen AdvReac Mild GI SYMPTOMS Verified 03/22/21 19:53 Consultations 03/22/21 21:27 ED Decision to Admit Stat Ordered Studies 03/22/21 22:25 CT abd pelvis IV con only Urgent Hospital Course (1) COPD exacerbation: Acute on chronic respiratory failure due to COPD exacerbation Acute on chronic respiratory failure with hypoxia and Hypercarbia Chronic Oxygen dependency--on 2 liters at baseline Possible aspiration pneumonitis Non Compliance with AVAP machine use CXR:No significant change compared to the prior study. No acute process. PO Augmentin to complete 5 day course Continue bronchodilators, darlisep respiratory status improved to baseline Counseled on the importance of using BiPAP overnight has Trilogy machine at home stable to be discharged home today Abnormal UA UTI ruled out Urine culture: Negative Chronic systolic heart failure EF 40 to 45%, TTE 2020 Patient euvolemic Volume status stable Hypertension stable Hyperlipidemia On statin IBS/Fibromyalgia As per records. GERD Continue PPI DVT Px Lovenox SQ Code Status Full code Disposition : discharge to home with home health today Total Time Total Time Spent Total Time Spent (In Minutes): 35 mins Total Time Includes: Discharge Planning and Medication Reconciliation Discharge Plan Discharge Items Patient Disposition: Home - Home Health Services Reason For Visit: COPD EXACERBATION Discharge Diagnosis: Follow up with Gastroenterology in clinic to schedule EGD and colonoscopy for anemia Activity: Resume your previous activity Non-emergency contact: Primary Care Provider Call non-emergency contact if: you have any medication questions Follow-up/Referrals: PCP,NO [Primary Care Provider] - Diet: Heart Healthy Addtl Attending Provider Instructions: Please take all medications as instructed on discharge list below. It is recommended that you follow-up with your primary care physician within 1-2 weeks of hospital discharge to ensure you are still doing well. Please call if you have any questions or problems. You can reach a [facility] hospitalist on duty at [facility] 24 hours a day by calling [phone] Addtl Hose Inspector Provider Instructions: PLEASE TAKE PROBIOTICS ( OVER THE COUNTER ) WHILE TAKING ANTIBIOTICS TO PREVENT DIARRHEA /LOOSE STOOL Pending Studies at Discharge: No Stand-Alone Forms: My [facility] [employer], Smoking Cessation Medications and DC Order Prescriptions: New amoxicillin-pot clavulanate [Augmentin] 875-125 mg Tablet 1 tab PO BIDM 2 Days Qty: 4 RF: 0 methylprednisolone [Medrol (Tani)] 4 mg tablets,dose pack 4 mg PO UD Qty: 21 RF: 0 Continued Daliresp 250 mcg tablet 250 mcg PO QAM Qty: 90 RF: 1 (DME) Oxygen Home Liters Per Minute See Rx Instructions .ROUTE .MEDSUPPLY Qty: 1 RF: 0 tramadol 50 mg tablet 50 mg PO Q6H PRN (Reason: Pain) RF: 0 diclofenac sodium 1 % gel 1 ea TOP QID PRN (Reason: Pain) RF: 0 magnesium oxide 400 mg magnesium Capsule 400 mg PO QAM RF: 0 atorvastatin 40 mg Tablet 40 mg PO QAM RF: 0 losartan 25 mg Tablet 25 mg PO QAM RF: 0 albuterol sulfate [Ventolin HFA] 90 mcg/actuation Hfa Aerosol Inhaler 2 puff INHALATION QID PRN (Reason: Shortness Of Breath Or Wheezing) RF: 0 metoprolol succinate 50 mg tablet extended release 24 hr 50 mg PO QAM RF: 0 calcium carbonate [Tums E-X] 300 mg (750 mg) Tablet,Chewable 300 mg PO DAILY PRN (Reason: HEARTBURN/INDIGESTION) RF: 0 acetaminophen [Tylenol Extra Strength] 500 mg Tablet 1,000 mg PO Q6H PRN (Reason: Pain) RF: 0 fluticasone propionate 50 mcg/actuation Hamer,Suspension 2 spray INTRANASAL DAILY RF: 0 ipratropium-albuterol 0.5 mg-3 mg(2.5 mg base)/3 mL solution for nebulization 3 ml INHALATION Q4H PRN (Reason: COUGH OR WHEEZE) RF: 0 aspirin 81 mg Tablet,Delayed Release (Dr/Ec) 81 mg PO DAILY RF: 0 docusate sodium 100 mg Tablet 100 mg PO BID RF: 0 pantoprazole 40 mg Tablet,Delayed Release (Dr/Ec) 40 mg PO DAILY Qty: 30 RF: 0 polyethylene glycol 3350 [Miralax] 17 gram Powder In Packet 17 g PO DAILY PRN (Reason: constipation) Qty: 30 RF: 0 budesonide-formoterol 160-4.5 mcg/actuation HFA aerosol inhaler 2 puffs INH BID Qty: 10.2 RF: 1 Multivitamin Gummies 200 mcg Tablet,Chewable 2 tab PO DAILY RF: 0 prednisone 20 mg Tablet 20 mg PO DAILY Qty: 3 RF: 0 Discharge Orders: Discharge Order (Routine); Ordered 03/27/21 Ordered By: Flora Taylor Admission Data Admit Date/Time: 03/22/21 22:35 Attending Provider: Flora Taylor Admit Provider: Jacob Bhardwaj Primary Care Provider: PCP,NO Other Providers: Jacob Bhardwaj ; Alonso Ham [place] ; [facility],Home Healthcare ; [place],[facility] ; Tip Vasquez Other Interventions: Discharge Summary Assessment (RN) Last Done: 03/27/21 10:06
== END 2021-03-27 13:12 | disposition home health service (06) | DRG 177 ==
LOC: ED 19:00 → SUATTDRO 22:35 → 2N 22:35

== ENCOUNTER 2021-04-05 14:25 | Inpatient (IN) ==
[2021-04-05] MEDS ORDERED: methylPREDNISolone 125 MG/2 ML VIAL IV STA (14:57)
[2021-04-05] MEDS ORDERED: ALBUT/IPRATROP 3MG/0.5MG NEB 3 ML VIAL NEB ONE (14:57)
--- NOTE | 2021-04-05 15:22 | XRay Report ---
XR chest 1V portable HISTORY: 75 years-old Female weakness acute weakness COMPARISON: Chest radiograph 03/22/2021, CT abdomen and pelvis 03/23/2021 TECHNIQUE: Portable AP view the chest FINDINGS: Cardiac silhouette is mildly enlarged. Unchanged appearance of mediastinum. Interstitial coarsening o f the lung bases has mildly progressed from comparison. No pneumothorax, pleural effusion or overt pu lmonary edema. Degenerative changes of the shoulders and spine. IMPRESSION: Bibasilar interstitial coarsening appears more pronounced than comparison which is likely projectional and/or secondary to atelectasis. A mild pneumonitis is considered less likely. ACT 112: Negative or not required by law. The above report was generated using voice recognition software. It may contain grammatical, syntax o r spelling errors. Electronically signed by: Zach Perez M.D. 04/05/2021 3:20 PM
[2021-04-05 15:25] LABS: Basophils # (auto) 0.01 K/uL (0-0.2); Basophils % (auto) 0.1 %; Eosinophils # (auto) 0.05 K/uL (0-0.5); Eosinophils % (auto) 0.4 %; Hematocrit (blood only) 41.5 % (37-47); Hemoglobin 12.4 g/dL (12.0-16.0); Immature Granulocytes # (auto) 0.04 K/uL (0.00-0.02); Immature Granulocytes % (auto) 0.3 %; Lymphocytes # (auto) 0.53 K/uL (1.2-3.4); Lymphocytes % (auto) 4.6 %; Mean Corpuscular Hemoglobin 28.1 pg (25-34); Mean Corpuscular Hgb Conc 29.9 g/dL (32-36); Mean Corpuscular Volume 94.1 fL (80-100); Mean Platelet Volume 10.9 fL (7.4-10.4); Monocytes # (auto) 0.88 K/uL (0.11-0.59); Monocytes % (auto) 7.6 %; Neutrophils # (auto) 10.08 K/uL (1.4-6.5); Platelet Count 275 K/uL (130-400); RDW Coefficient of Variation 13.5 % (11.5-14.5); RDW Standard Deviation 46.8 fL (36.4-46.3); Red Blood Count 4.41 M/uL (4.2-5.4); White Blood Count 11.59 K/uL (4.8-10.8)
[2021-04-05 15:34] LABS: Base Excess ABG 19.9 mEq/L (-9-1.8); HCO3 ABG 49 mmol/L (19-24); Oxygen Saturation ABG 93.4 % (90-95); PCO2 ABG 79 mmHg (35-46); PO2 ABG 68 mmHg (80-95); pH ABG 7.41 (7.35-7.45)
[2021-04-05 15:35] LABS: Allen Test POS (Pos)
--- NOTE | 2021-04-05 15:58 | CT Scan Report ---
CT head/brain wo con CLINICAL HISTORY: 75 years-old Female with AMS. Acutely altered mental status TECHNIQUE: Multiple axial CT images of the head were obtained without contrast. A dose lowering tech nique was utilized adhering to the principles of ALARA. CT DOSE: 1225.46 mGy.cm COMPARISON: Head CT 03/04/2021. FINDINGS: Motion degraded exam. The study was then repeated which was also motion degraded. No acute intracrani al hemorrhage, midline shift, intracranial mass, hydrocephalus, territorial ischemia or abnormal extr a-axial collection. Age-related involutional changes. White matter hypodensities suggestive of chroni c microvascular ischemic disease. Cerebral vascular and senescent basal ganglia calcifications. The calvarium is intact. Bilateral cataract repair. The paranasal sinuses, mastoid air cells, and mid dle ear cavities are clear. IMPRESSION: Motion degraded exam. No acute intracranial abnormality. ACT 112: Negative or not required by law. The above report was generated using voice recognition software. It may contain grammatical, syntax o r spelling errors. Electronically signed by: Zach Perez M.D. 04/05/2021 3:57 PM
[2021-04-05 16:13] LABS: Albumin Level 3.6 gm/dl (3.4-5.0); BUN Creatinine Ratio 42.7 (10-20); Bilirubin,Total 1.1 mg/dl (0.2-1); Calcium 9.7 mg/dl (8.5-10.1); Creatinine Clr Calc Pharmacy 94.1 ml/min; Est GFR (African American) 108.2 ml/min; Est GFR (Non-African American) 93.4 ml/min; Globulin 3.6 gm/dl (2.5-4.0); Magnesium 2.2 mg/dl (1.8-2.4); Potassium 3.7 mmol/L (3.5-5.1); Thyroid Stimulating Hormone 0.538 uIu/ml (0.300-4.500); Total Protein 7.2 gm/dl (6.4-8.2)
--- NOTE | 2021-04-05 18:03 | History & Physical Report ---
Date of Service April 05, 2021 Assessment & Plan (1) Acute hypercapnic respiratory failure: (2) Chronic respiratory failure with hypoxia and hypercapnia: (3) Acute metabolic encephalopathy: (4) COPD (chronic obstructive pulmonary disease): (5) Sinus tachycardia: (6) Chronic diastolic heart failure: (7) Hypertension: (8) Discharge planning issues: This is a 75yo F with a PMH of chronic hypoxic and hypercapnic respiratory failure on 3L NC O2 2/2 to COPD and obesity hypoventilation syndrome, chronic diastolic CHF, chronic sinus tachycardia, HTN, HLD, fibromyalgia, GERD, ambulatory dysfunction who presents to ED with hypoxia and altered mental status. Acute on chronic respiratory failure with hypoxia and hypercapnia This is patient's third admission over the past few months for acute on chronic respiratory failure History of hypoxemic and hypercarbic respiratory failure and severe COPD, noncompliant with Triology machine HS Follows with [facility] pulmonary Initial ABG with pH 7.4, pCO2 79, HCO3:49 [address] on BiPAP -repeat VBG in 2 hours Keep NPO for now Routine pulmonary consult Goal O2 88-92% Acute metabolic encephalopathy Difficulty with word finding In setting of hypercapnia - continue BiPAP Continued confusion since arrival -not oriented to time or situation, also having difficulty with word finding CT head without acute intracranial abnormality Will obtain brain MRI with/without to evaluate for stroke Neuro checks, PT/OT/speech eval Consider echo with bubble study and neurology consult in if mentation does not improve from BiPAP alone COPD exacerbation Continue BiPAP, IV Solu-Medrol 40 mg IV daily, starting on doxycycline Continue Xopenex and ipratropium nebulizer treatments scheduled Sinus tachycardia Chronic condition with baseline HR ~ 105 HR 120s-130s initially in setting of respiratory failure, bronchodilators Obtaining CTA chest for evaluation of PE Continue home Toprol qAM, PRN IV Lopressor Q6H for HR >110 Monitor on telemetry Congestive heart failure EF 40 to 45%, TTE 2020 Patient euvolemic Monitor Volume status Hypertension Continue losartan, Toprol once able to tolerate PO meds Discharge planning issues Difficult social disposition in the past, unfit to live alone Limited support from friends or family Per discussion with son Mono/TERRANCE from visit last week, patient to remain a full code DVT Ppx: SQ Lovenox Code status: FULL PCP: Puma Dispo: Admitted to PCU Patient seen in collaboration with Dr. Vasquez. Please see addendum. History of Present Illness Chief Complaint: hypoxia, AMS Primary Care Provider: NO PCP This is a 75yo F with a PMH of chronic hypoxic and hypercapnic respiratory failure on 3L NC O2 2/2 to COPD and obesity hypoventilation syndrome, chronic diastolic CHF, chronic sinus tachycardia, HTN, HLD, fibromyalgia, GERD, ambulatory dysfunction who presents to ED with hypoxia and altered mental status. This is patient's third admission over the past few months for acute on chronic respiratory failure. Most recently admitted from 03/22-03/27 for COPD exacerbation. Was discharged home on 5-day course of Augmentin. History of noncompliance with Trilogy ventilator machine. Follows with [facility] pulmonology. Case management readdressed need for increased home health assistance during previous admission. Palliative care service also waiting, recommending Office of Aging also be utilized for help coordinating services. Patient was initially found to be hypoxic at 45% not wearing home oxygen. Improved in ED to 96% on 2 L nasal cannula. Initial ABG with pH 7.4, PCO2 of 79 and HCO3 of 49. Continues to be intermittently confused. Is alert to person and location but not to time or situation. Endorses using Trilogy machine once at night since discharged home from hospital. States she is taking medication as prescribed. Continues to feel short of breath with cough-unclear whether or not this is baseline. Breathing has improved since breathing treatment in the ED. Unable to obtain full ROS due to patient's altered mental status. Allergies Allergy/AdvReac Type Severity Reaction Status Date / Time duloxetine [From Cymbalta] Allergy Mild Rash Verified 04/05/21 16:57 naproxen AdvReac Mild GI SYMPTOMS Verified 04/05/21 16:57 Home Medications Medication Instructions Recorded Confirmed Type albuterol sulfate [Ventolin HFA] 2 puff INHALATION QID PRN 12/14/18 04/05/21 History atorvastatin 40 mg PO QAM 12/14/18 04/05/21 History losartan 25 mg PO QAM 12/14/18 04/05/21 History magnesium oxide 400 mg PO QAM 02/13/19 04/05/21 History metoprolol succinate 50 mg PO QAM 04/22/19 04/05/21 History Oxygen Home #1 ea 11/05/19 01/19/21 Rx diclofenac sodium 1 % topical gel 1 ea TOP QID PRN 01/22/20 04/05/21 History tramadol 50 mg tablet 50 mg PO Q6H PRN 01/22/20 04/05/21 History roflumilast 250 mcg tablet 250 mcg PO QAM #90 tab 06/30/20 04/05/21 Rx aspirin 81 mg PO DAILY 01/19/21 04/05/21 History docusate sodium 100 mg PO BID 01/19/21 04/05/21 History budesonide-formoterol 2 puffs INH BID #10.2 gm 01/21/21 04/05/21 Rx pantoprazole 40 mg PO DAILY #30 tab 01/21/21 04/05/21 Rx polyethylene glycol 3350 [Miralax] 17 g PO DAILY PRN #30 ea 01/21/21 04/05/21 Rx Multivitamin Gummies 2 tab PO DAILY 03/04/21 04/05/21 History acetaminophen [Tylenol Extra 1,000 mg PO Q6H PRN 03/22/21 04/05/21 History Strength] calcium carbonate [Tums E-X] 300 mg PO DAILY PRN 03/22/21 04/05/21 History fluticasone propionate 2 spray INTRANASAL DAILY 03/22/21 04/05/21 History ipratropium-albuterol 3 ml INHALATION Q4H PRN 03/22/21 04/05/21 History prednisone 10 mg PO DAILY 04/05/21 04/05/21 History Past Med/Surg History Medical History (Updated 04/05/21 @ 20:08 by Sommer Cherry PA-C) BCC (basal cell carcinoma of skin) on left side of face---"s/p MOHS surgery" Chronic diastolic heart failure Chronic respiratory failure with hypoxia, on home O2 therapy OXYGEN 3L/MIN VIA NC COPD (chronic obstructive pulmonary disease) inhaler daily/prn and nebulizer prn COPD (chronic obstructive pulmonary disease) Degenerative disc disease Dyslipidemia Fibromyalgia GERD (gastroesophageal reflux disease) Hypertension On home oxygen therapy 3L N/C at all times Osteoporosis Palliative care encounter Sinus tachycardia SOB (shortness of breath) on exertion Tremor of both hands Surgical History History of bilateral cataract extraction History of carpal tunnel surgery of right wrist History of colonoscopy with polypectomy History of esophagogastroduodenoscopy (EGD) History of left breast biopsy benign History of mandibular surgery jaw fx History of repair of left rotator cuff History of repair of right rotator cuff History of tooth extraction S/P Mohs surgery for basal cell carcinoma Status post appendectomy Status post excision of lipoma removed off neck x2 Status post hysterectomy Status post repair of ventral hernia Family History Grandfather (Maternal) Family hx of colon cancer Father FH: kidney cancer Family/Other Family history of diabetes mellitus nephew Other Kidney disease Lung disease No family history of adverse response to anesthesia Social History Smoking Status: Unknown if ever smoked Tobacco Type: Cigarettes Cigarettes Per Day: unsure when she quit; Second Hand Exposure: No; Hx Alcohol Use: No Hx Substance Use: No Preferred Language: Citizen Of [place] Communication Ability: Effective Dental Associate Required: No Beliefs That Will Affect Care: None marital status: / Current Living Situation: Alone current occupational status: retired How many Children do You have: 3 Feels Safe at Home: Yes Assistive Devices: Walker Review of Systems Review of Systems: Unobtainable due to cognitive status Physical Exam Physical Exam: Please see Dr. Vasquez's addendum for physical exam details. Results & Data Results & Data ([facility]) Vital Signs (Past 12 Hours) Vital Signs Temp Pulse Pulse Resp BP Pulse Ox 04/05/21 17:30 130 H 23 140/69 100 04/05/21 17:00 123 H 22 168/95 H 100 04/05/21 16:59 128 H 22 99 04/05/21 16:58 127 H 23 166/104 H 100 04/05/21 16:30 122 H 22 04/05/21 16:02 110 H 26 H 97 04/05/21 16:00 117 H 22 98 04/05/21 15:30 115 H 26 H 99 04/05/21 15:09 123 H 24 112/72 99 04/05/21 15:00 123 H 24 99 04/05/21 14:45 98 04/05/21 14:38 125 H 22 04/05/21 14:33 36.8 C 126 H 20 98 Laboratory Results Short CBC 04/05/21 Range/Units 15:08 WBC 11.59 H (4.8-10.8) K/uL Hgb 12.4 (12.0-16.0) g/dL Hct 41.5 (37-47) % Plt Count 275 (130-400) K/uL BMP 04/05/21 15:08 Sodium 137 Potassium 3.7 Chloride 89 L Carbon Dioxide 57 H* BUN 21 H Creatinine 0.50 L Glucose 118 H Calcium 9.7 Liver Function 04/05/21 Range/Units 15:08 Total Bilirubin 1.1 H (0.2-1) mg/dl AST 10 L (15-37) U/L ALT 18 (12-78) U/L Alkaline Phosphatase 70 (45-117) U/L Albumin 3.6 (3.4-5.0) gm/dl Diagnostic Findings Head CT 04/05/21 15:01 CT head/brain wo con CLINICAL HISTORY: 75 years-old Female with AMS. Acutely altered mental status TECHNIQUE: Multiple axial CT images of the head were obtained without contrast. A dose lowering technique was utilized adhering to the principles of ALARA. CT DOSE: 1225.46 mGy.cm COMPARISON: Head CT 03/04/2021. FINDINGS: Motion degraded exam. The study was then repeated which was also motion degraded. No acute intracranial hemorrhage, midline shift, intracranial mass, hydrocephalus, territorial ischemia or abnormal extra-axial collection. Age- related involutional changes. White matter hypodensities suggestive of chronic microvascular ischemic disease. Cerebral vascular and senescent basal ganglia calcifications. The calvarium is intact. Bilateral cataract repair. The paranasal sinuses, mastoid air cells, and middle ear cavities are clear. IMPRESSION: Motion degraded exam. No acute intracranial abnormality. ACT 112: Negative or not required by law. The above report was generated using voice recognition software. It may contain grammatical, syntax or spelling errors. Electronically signed by: Zach Perez M.D. 04/05/2021 3:57 PM Chest X-Ray 04/05/21 15:02 XR chest 1V portable HISTORY: 75 years-old Female weakness acute weakness COMPARISON: Chest radiograph 03/22/2021, CT abdomen and pelvis 03/23/2021 TECHNIQUE: Portable AP view the chest FINDINGS: Cardiac silhouette is mildly enlarged. Unchanged appearance of mediastinum. Interstitial coarsening of the lung bases has mildly progressed from comparison. No pneumothorax, pleural effusion or overt pulmonary edema. Degenerative changes of the shoulders and spine. IMPRESSION: Bibasilar interstitial coarsening appears more pronounced than comparison which is likely projectional and/or secondary to atelectasis. A mild pneumonitis is considered less likely. ACT 112: Negative or not required by law. The above report was generated using voice recognition software. It may contain grammatical, syntax or spelling errors. Electronically signed by: Zach Perez M.D. 04/05/2021 3:20 PM Code Status & VTE Plan VTE Prophylaxis Plan VTE Prophylaxis will be ordered: Yes Supervising Physician Co-Signing Physician Notes Patient is a 75-year-old female with history of COPD, chronic oxygen dependency, fibromyalgia, diastolic heart failure and other medical problems presents with history of altered mental status and hypoxia. Patient currently unable to provide much history given change in mental status. Most of the history is obtained from old records, ER physician. Patient had multiple admissions for COPD exacerbation recently. She has been noncompliant with trilogy machine as recommended. Patient was found to be hypoxic and was not wearing her home oxygen. She admits to use trilogy only 1 day since last discharge. States having cough with minimal expectoration associated with shortness of breath. She denies any chest pain currently. Please review HPI for complete details of presentation. She was found to be in sinus tachycardia while in ED. CT head showed no acute intracranial abnormality. She follows simple commands and was able to move all her extremities. Chest x-ray showed no focal consolidation. Blood work suggestive of mild leukocytosis elevated at 11.59, bicarbonate elevated at 57. Suggestive respiratory acidosis, metabolic alkalosis. She is alert awake, oriented to person, place. Physical Exam: Vitals signs as noted above General Appearance:Moderately built and nourished, no apparent distress Head: normocephalic, Atraumatic Eyes: normal inspection, EOMI Neck: supple, Trachea midline Respiratory/Chest: Significantly diminished breath sounds, + expiratory wheezes, No accessory muscle use Cardiovascular: S1, S2, No murmur Abdomen/GI:Soft, Non tender, Bowel sounds present Extremities/Musculoskeletal:normal inspection, no edema Neurologic/Psych:Alert, awake, Oriented X2, grossly no focal neurological deficits, Slurry speech, confused intermittently Skin: normal color, warm Acute on chronic respiratory failure with hypoxia, hypercarbia Acute metabolic encephalopathy COPD exacerbation Sinus tachycardia Respiratory acidosis, metabolic alkalosis Strokelike symptoms We will place her on BiPAP, Repeat blood gas, Agree with bronchodilators, glucocorticoids, Consult pulmonology CTA pending MRI to rule out any stroke. Check procalcitonin Start doxycycline Neurochecks, fall precautions, aspiration precautions Keep her n.p.o. for now Monitor on telemetry Low threshold to transfer to ICU Continue supplemental oxygen Case management to help with discharge planning PT/OT, Speech eval Further work-up based work up I personally reviewed the record. Patient is interviewed and examined at bedside. Patient's care is coordinated with Sommer Cherry PA-C. Please refer to the documentation above for details of patient's presentation and for discussion of other issues. (1) Hypertension Hypertension type: unspecified Qualified Code(s): I10 - Essential (primary) hypertension
[2021-04-05 18:22] LABS: Appearance Urine Clear (Clear); Bilirubin Urine Negative (Negative); Blood Urine Negative (Negative); Color Urine Yellow; Glucose Urine UA Negative (Negative); Ketones Urine 2+ (Negative); Leukocyte Esterase Urine Negative (Negative); Nitrite Urine Negative (Negative); Protein Urine Trace (Negative); Urobilinogen Urine Negative (Negative); pH Urine 8.5 (4.5-7.5)
--- NOTE | 2021-04-05 18:36 | Emergency Department Note ---
History of Present Illness General Chief complaint: Shortness of Breath/Dyspnea Stated complaint: SOB,HYPOXIA Source: patient and RN notes reviewed Mode of arrival: EMS Limitations: clinical acuity (AMS) History of Present Illness Provider complaint: Hypoxia, AMS This patient is a 75-year-old female who presents emergency department with complaints of hypoxia and altered mental status per EMS. Patient is apparently supposed to be on home oxygen at 2 L and was found altered with oxygen saturations at "45%". It is unclear if the patient had her oxygen on at that time. The patient is unable to recall the events, but states her legs became weak. Patient is unable to give history and speaks jumbled but comprehensible words. Home Medications Medication Instructions Recorded Confirmed Type albuterol sulfate [Ventolin HFA] 2 puff INHALATION QID PRN 12/14/18 04/05/21 History atorvastatin 40 mg PO QAM 12/14/18 04/05/21 History losartan 25 mg PO QAM 12/14/18 04/05/21 History magnesium oxide 400 mg PO QAM 02/13/19 04/05/21 History metoprolol succinate 50 mg PO QAM 04/22/19 04/05/21 History Oxygen Home #1 ea 11/05/19 01/19/21 Rx diclofenac sodium 1 % topical gel 1 ea TOP QID PRN 01/22/20 04/05/21 History tramadol 50 mg tablet 50 mg PO Q6H PRN 01/22/20 04/05/21 History roflumilast 250 mcg tablet 250 mcg PO QAM #90 tab 06/30/20 04/05/21 Rx aspirin 81 mg PO DAILY 01/19/21 04/05/21 History docusate sodium 100 mg PO BID 01/19/21 04/05/21 History budesonide-formoterol 2 puffs INH BID #10.2 gm 01/21/21 04/05/21 Rx pantoprazole 40 mg PO DAILY #30 tab 01/21/21 04/05/21 Rx polyethylene glycol 3350 [Miralax] 17 g PO DAILY PRN #30 ea 01/21/21 04/05/21 Rx Multivitamin Gummies 2 tab PO DAILY 03/04/21 04/05/21 History acetaminophen [Tylenol Extra 1,000 mg PO Q6H PRN 03/22/21 04/05/21 History Strength] calcium carbonate [Tums E-X] 300 mg PO DAILY PRN 03/22/21 04/05/21 History fluticasone propionate 2 spray INTRANASAL DAILY 03/22/21 04/05/21 History ipratropium-albuterol 3 ml INHALATION Q4H PRN 03/22/21 04/05/21 History doxycycline hyclate 100 mg PO BID 5 Days #10 cap 04/08/21 Rx prednisone 20 mg PO .ud #10 tab 04/08/21 Rx ropinirole [Requip] 0.25 mg PO HS 30 Days #30 tab 04/08/21 Rx umeclidinium [Incruse Ellipta] 1 inh INHALATION DAILY 30 Days #30 04/08/21 Rx ea Allergies Allergy/AdvReac Type Severity Reaction Status Date / Time duloxetine [From Cymbalta] Allergy Mild Rash Verified 04/05/21 16:57 naproxen AdvReac Mild GI SYMPTOMS Verified 04/05/21 16:57 Past Med/Surg History Medical History BCC (basal cell carcinoma of skin) on left side of face---"s/p MOHS surgery" Chronic diastolic heart failure Chronic respiratory failure with hypoxia, on home O2 therapy OXYGEN 3L/MIN VIA NC COPD (chronic obstructive pulmonary disease) inhaler daily/prn and nebulizer prn COPD (chronic obstructive pulmonary disease) Degenerative disc disease Dyslipidemia Fibromyalgia GERD (gastroesophageal reflux disease) Hypertension On home oxygen therapy 3L N/C at all times Osteoporosis Palliative care encounter Sinus tachycardia SOB (shortness of breath) on exertion Tremor of both hands Surgical History History of bilateral cataract extraction History of carpal tunnel surgery of right wrist History of colonoscopy with polypectomy History of esophagogastroduodenoscopy (EGD) History of left breast biopsy benign History of mandibular surgery jaw fx History of repair of left rotator cuff History of repair of right rotator cuff History of tooth extraction S/P Mohs surgery for basal cell carcinoma Status post appendectomy Status post excision of lipoma removed off neck x2 Status post hysterectomy Status post repair of ventral hernia Family History Grandfather (Maternal) Family hx of colon cancer Father FH: kidney cancer Family/Other Family history of diabetes mellitus nephew Other Kidney disease Lung disease No family history of adverse response to anesthesia Social History Smoking Status: Former smoker Tobacco Type: Cigarettes Cigarettes Per Day: unsure when she quit; Second Hand Exposure: No; Hx Alcohol Use: No Hx Substance Use: No Preferred Language: Chadian Communication Ability: Effective Health Education Aide Required: No Beliefs That Will Affect Care: None marital status: / Current Living Situation: Alone current occupational status: retired How many Children do You have: 3 Feels Safe at Home: Yes Assistive Devices: Oxygen - Continuous Review of Systems Unobtainable due to cognitive status (history is limited d/t AMS) Physical Exam Vital Signs Vital Signs - 24 hr 04/05/21 14:33 04/05/21 14:38 04/05/21 14:43 Temperature 36.8 C Temperature Source Oral Pulse Rate 126 H 125 H Pulse Rate [Right Finger] Pulse Rate from SpO2 Sensor Respiratory Rate 20 22 Respiratory Effort / Characteristics Spontaneous Respiratory Depth Normal Blood Pressure Blood Pressure Mean Pulse Oximetry 98 Oxygen Delivery Method Nasal Cannula Nasal Cannula Nasal Cannula Oxygen Flow Rate 4 4 4 Sepsis Recent Fever Within 48 Hours No Sepsis New/Unexplained Change in Mental Status N/A Sepsis Action Taken by Nursing No Action Required 04/05/21 14:45 04/05/21 15:00 04/05/21 15:09 Temperature Temperature Source Pulse Rate 123 H 123 H Pulse Rate [Right Finger] Pulse Rate from SpO2 Sensor 123 H 111 H Respiratory Rate 24 24 Respiratory Effort / Characteristics Respiratory Depth Blood Pressure 112/72 Blood Pressure Mean 85 Pulse Oximetry 98 99 99 Oxygen Delivery Method Nasal Cannula Nasal Cannula Nasal Cannula Oxygen Flow Rate 4 4 4 Sepsis Recent Fever Within 48 Hours Sepsis New/Unexplained Change in Mental Status Sepsis Action Taken by Nursing 04/05/21 15:30 04/05/21 16:00 04/05/21 16:02 Temperature Temperature Source Pulse Rate 115 H 117 H Pulse Rate [Right Finger] 110 H Pulse Rate from SpO2 Sensor 115 H 116 H Respiratory Rate 26 H 22 26 H Respiratory Effort / Characteristics Spontaneous Respiratory Depth Blood Pressure Blood Pressure Mean Pulse Oximetry 99 98 97 Oxygen Delivery Method Nasal Cannula Nasal Cannula Nasal Cannula Oxygen Flow Rate 4 4 4 Sepsis Recent Fever Within 48 Hours Sepsis New/Unexplained Change in Mental Status Sepsis Action Taken by Nursing 04/05/21 16:30 04/05/21 16:58 04/05/21 16:59 Temperature Temperature Source Pulse Rate 122 H 127 H 128 H Pulse Rate [Right Finger] Pulse Rate from SpO2 Sensor 132 H 126 H Respiratory Rate 22 23 22 Respiratory Effort / Characteristics Respiratory Depth Blood Pressure 166/104 H Blood Pressure Mean 124 Pulse Oximetry 100 99 Oxygen Delivery Method Oxygen Flow Rate Sepsis Recent Fever Within 48 Hours Sepsis New/Unexplained Change in Mental Status Sepsis Action Taken by Nursing 04/05/21 17:00 04/05/21 17:30 Temperature Temperature Source Pulse Rate 123 H 130 H Pulse Rate [Right Finger] Pulse Rate from SpO2 Sensor 125 H 127 H Respiratory Rate 22 23 Respiratory Effort / Characteristics Respiratory Depth Blood Pressure 168/95 H 140/69 Blood Pressure Mean 119 92 Pulse Oximetry 100 100 Oxygen Delivery Method Nebulizer Nasal Cannula Oxygen Flow Rate 2 Sepsis Recent Fever Within 48 Hours Sepsis New/Unexplained Change in Mental Status Sepsis Action Taken by Nursing Vital signs reviewed. General: Chronically-ill appearing 75 yo female, in no significant distress. HEENT: No scleral icterus, PERRLA, neck supple. Dry mucous membranes. Atraumatic. Cardiovascular: Regular but tachycardic. no extra sounds. Pulmonary: Coarse breath sounds bilaterally, normal work of breathing on nasal cannula oxygen. Abdomen: Soft, nontender, nondistended, positive bowel sounds. Musculoskeletal: Atraumatic, no peripheral edema. Neurologic: Patient awake alert and able to say the year appropriately, name or age. States that she is [age]. Speaks in word salad. Skin: Warm, dry, no rash Course Administered Medications Discontinued Medications Albuterol (Albut/Ipratrop 3mg/0.5mg Neb 3 Ml Vial) 12 ml NEB ONE ONE Stop: 04/05/21 14:58 Last Admin: 04/05/21 16:02 Dose: 12 ml Documented by: [id number] Aspirin (Aspirin 81 Mg Ectab) 81 mg PO DAILY [facility] Stop: 05/06/21 08:59 Last Admin: 04/09/21 08:31 Dose: 81 mg Documented by: [id number] Admin: 04/08/21 09:35 Dose: 81 mg Documented by: [id number] Admin: 04/07/21 08:48 Dose: 81 mg Documented by: [id number] Admin: 04/06/21 10:46 Dose: 81 mg Documented by: [id number] Atorvastatin Calcium (Atorvastatin 40 Mg Tab) 40 mg PO QAM [facility] Stop: 05/06/21 08:59 Last Admin: 04/09/21 08:31 Dose: 40 mg Documented by: [id number] Admin: 04/08/21 09:33 Dose: 40 mg Documented by: [id number] Admin: 04/07/21 08:49 Dose: 40 mg Documented by: [id number] Admin: 04/06/21 10:45 Dose: 40 mg Documented by: [id number] Docusate Sodium (Docusate Sodium 100 Mg Cap) 100 mg PO BID [facility] Stop: 05/05/21 20:59 Last Admin: 04/09/21 08:33 Dose: 100 mg Documented by: [id number] Admin: 04/08/21 20:08 Dose: 100 mg Documented by: [id number] Admin: 04/08/21 09:45 Dose: 100 mg Documented by: [id number] Admin: 04/07/21 19:51 Dose: 100 mg Documented by: [id number] Admin: 04/07/21 08:48 Dose: 100 mg Documented by: [id number] Admin: 04/06/21 20:16 Dose: 100 mg Documented by: [id number] Admin: 04/06/21 10:45 Dose: 100 mg Documented by: [id number] Admin: 04/05/21 22:11 Dose: Not Given Documented by: [id number] Doxycycline Hyclate (Doxycycline Hyclate 100 Mg Cap) 100 mg PO BID [facility] Stop: 04/12/21 20:59 Last Admin: 04/09/21 08:31 Dose: 100 mg Documented by: [id number] Admin: 04/08/21 20:04 Dose: 100 mg Documented by: [id number] Admin: 04/08/21 09:47 Dose: 100 mg Documented by: [id number] Admin: 04/07/21 19:44 Dose: 100 mg Documented by: [id number] Admin: 04/07/21 08:49 Dose: 100 mg Documented by: [id number] Admin: 04/06/21 20:17 Dose: 100 mg Documented by: [id number] Enoxaparin Sodium (Enoxaparin Inj 40 Mg/0.4 Ml Syr) 40 mg SQ QAM [facility] Stop: 05/06/21 08:59 Last Admin: 04/09/21 08:30 Dose: Not Given Documented by: [id number] Admin: 04/08/21 09:39 Dose: 40 mg Documented by: [id number] Admin: 04/07/21 08:50 Dose: 40 mg Documented by: [id number] Admin: 04/06/21 10:47 Dose: 40 mg Documented by: [id number] Fluticasone Propionate (Fluticasone Propionate Na Spr 16 Gm Btl) 2 sprays NA DAILY [facility] Stop: 05/06/21 08:59 Last Admin: 04/09/21 08:30 Dose: Not Given Documented by: [id number] Admin: 04/08/21 09:38 Dose: 2 sprays Documented by: [id number] Admin: 04/07/21 08:49 Dose: Not Given Documented by: [id number] Admin: 04/06/21 10:46 Dose: Not Given Documented by: [id number] Fluticasone/Vilanterol (Fluticasone/Vilanterol 200/25mcg 14 Puffs/Inhaler) 1 puffs INH DAILY [facility] Stop: 05/06/21 08:59 Last Admin: 04/09/21 08:29 Dose: 1 puffs Documented by: [id number] Admin: 04/08/21 09:38 Dose: 1 puffs Documented by: [id number] Admin: 04/07/21 08:50 Dose: 1 puffs Documented by: [id number] Admin: 04/06/21 10:46 Dose: 1 puffs Documented by: [id number] Gadobutrol (Gadobutrol 65ml Vial) 6.8 ml IV ONCE ONE Stop: 04/06/21 10:15 Last Admin: 04/06/21 10:12 Dose: 6.8 ml Documented by: [id number] Guaifenesin (Guaifenesin 600 Mg Tabcr) 600 mg PO Q12 [facility] Stop: 05/06/21 20:59 Last Admin: 04/09/21 08:31 Dose: 600 mg Documented by: [id number] Admin: 04/08/21 20:04 Dose: 600 mg Documented by: [id number] Admin: 04/08/21 09:40 Dose: 600 mg Documented by: [id number] Admin: 04/07/21 19:44 Dose: 600 mg Documented by: [id number] Admin: 04/07/21 08:49 Dose: 600 mg Documented by: [id number] Admin: 04/06/21 20:17 Dose: 600 mg Documented by: [id number] Doxycycline Hyclate 100 mg/ (Dextrose) 110 mls @ 50 mls/hr IV Q12H [facility] Stop: 04/12/21 20:59 Last Infusion: 04/06/21 12:45 Dose: 0 mls/hr Documented by: [id number] Admin: 04/06/21 10:44 Dose: 50 mls/hr Documented by: [id number] Infusion: 04/06/21 01:20 Dose: 0 mls/hr Documented by: [id number] Admin: 04/05/21 22:12 Dose: 50 mls/hr Documented by: [id number] Methylprednisolone 40 mg/ (Syringe) 0.64 mls @ 1.5 mls/min IV DAILY [facility] Stop: 05/06/21 08:59 Last Admin: 04/07/21 08:48 Dose: 1.5 mls/min Documented by: [id number] Admin: 04/06/21 10:47 Dose: 1.5 mls/min Documented by: [id number] Ioversol (Optiray 320 125ml) 117 ml IV ONCE ONE Stop: 04/05/21 20:18 Last Admin: 04/05/21 20:17 Dose: 117 ml Documented by: [id number] Ipratropium [place] (Ipratropium [place] Neb Soln 0.02% 2.5 Ml Vial) 0.5 mg NEB Q8R [facility] Stop: 05/05/21 22:59 Last Admin: 04/06/21 07:08 Dose: 0.5 mg Documented by: [id number] Admin: 04/05/21 22:36 Dose: 0.5 mg Documented by: [id number] Ipratropium [place] (Ipratropium [place] Neb Soln 0.02% 2.5 Ml Vial) 0.5 mg NEB Q6R [facility] Stop: 05/06/21 12:59 Last Admin: 04/07/21 07:18 Dose: Not Given Documented by: [id number] Admin: 04/06/21 13:03 Dose: 0.5 mg Documented by: [id number] Levalbuterol HCl (Levalbuterol 0.31mg/3 Ml Vial) 0.31 mg NEB Q6R [facility] Stop: 05/05/21 20:31 Last Admin: 04/06/21 07:08 Dose: 0.31 mg Documented by: [id number] Admin: 04/06/21 00:55 Dose: 0.31 mg Documented by: [id number] Admin: 04/05/21 22:35 Dose: Not Given Documented by: [id number] Levalbuterol HCl (Levalbuterol 1.25mg/0.5ml Neb) 1.25 mg NEB Q6R [facility] Stop: 05/06/21 12:59 Last Admin: 04/07/21 07:18 Dose: Not Given Documented by: [id number] Admin: 04/06/21 13:03 Dose: 1.25 mg Documented by: [id number] Losartan Potassium (Losartan Potassium 25 Mg Tab) [facility] [place] Stop: 05/06/21 08:59 Last Admin: 04/09/21 08:31 Dose: 25 mg Documented by: [id number] Admin: 04/08/21 09:34 Dose: 25 mg Documented by: [id number] Admin: 04/07/21 08:48 Dose: 25 mg Documented by: [id number] Admin: 04/06/21 10:45 Dose: 25 mg Documented by: [id number] Magnesium Oxide (Magnesium Oxide 400 Mg Tab) 400 mg PO [facility] Stop: 05/06/21 08:59 Last Admin: 04/09/21 08:31 Dose: 400 mg Documented by: [id number] Admin: 04/08/21 09:35 Dose: 400 mg Documented by: [id number] Admin: 04/07/21 08:48 Dose: 400 mg Documented by: [id number] Admin: 04/06/21 10:46 Dose: 400 mg Documented by: [id number] Methylprednisolone (Methylprednisolone 125 Mg/2 Ml Vial) 60 mg IV NOW STA Stop: 04/05/21 14:58 Last Admin: 04/05/21 15:58 Dose: 60 mg Documented by: [id number] Metoprolol Succinate (Metoprolol Succ 50mg Ext Rel Tab) 50 mg PO [facility] Stop: 05/05/21 20:31 Last Admin: 04/09/21 08:31 Dose: 50 mg Documented by: [id number] Admin: 04/08/21 09:35 Dose: 50 mg Documented by: [id number] Admin: 04/07/21 08:49 Dose: 50 mg Documented by: [id number] Admin: 04/06/21 10:45 Dose: 50 mg Documented by: [id number] Admin: 04/05/21 22:11 Dose: 50 mg Documented by: [id number] Multivitamins/Minerals (Cerovite Adv Formula Tab) 1 tab PO DAILY [facility] Stop: 05/07/21 08:59 Last Admin: 04/09/21 08:31 Dose: 1 tab Documented by: [id number] Admin: 04/08/21 09:36 Dose: 1 tab Documented by: [id number] Admin: 04/07/21 08:49 Dose: Not Given Documented by: [id number] Pantoprazole Sodium (Pantoprazole 40 Mg Tab) 40 mg PO DAILY [facility] Stop: 05/06/21 08:59 Last Admin: 04/09/21 08:31 Dose: 40 mg Documented by: [id number] Admin: 04/08/21 09:33 Dose: 40 mg Documented by: [id number] Admin: 04/07/21 08:50 Dose: 40 mg Documented by: [id number] Admin: 04/06/21 10:46 Dose: 40 mg Documented by: [id number] Prednisone (Prednisone 20 Mg Tab) 40 mg PO DAILY [facility] Stop: 05/08/21 08:59 Last Admin: 04/09/21 08:31 Dose: 40 mg Documented by: [id number] Admin: 04/08/21 09:46 Dose: 40 mg Documented by: [id number] Roflumilast (Roflumilast 500 Mcg Tab) 250 mcg PO QAM [facility] Stop: 05/06/21 08:59 Last Admin: 04/09/21 08:30 Dose: 250 mcg Documented by: [id number] Admin: 04/08/21 09:35 Dose: 250 mcg Documented by: [id number] Admin: 04/07/21 08:50 Dose: 250 mcg Documented by: [id number] Admin: 04/06/21 10:46 Dose: 250 mcg Documented by: [id number] Ropinirole HCl (Ropinirole Hcl 0.25 Mg Tablet) 0.25 mg PO NOW STA Stop: 04/07/21 21:18 Last Admin: 04/07/21 22:23 Dose: 0.25 mg Documented by: [id number] Tramadol HCl (Tramadol Hcl 50 Mg Tablet) 50 mg PO Q6H PRN PRN Reason: Pain Stop: 05/06/21 12:52 Last Admin: 04/08/21 22:33 Dose: 50 mg Documented by: [id number] Admin: 04/08/21 09:45 Dose: 50 mg Documented by: [id number] Admin: 04/07/21 18:41 Dose: 50 mg Documented by: [id number] Admin: 04/07/21 06:25 Dose: 50 mg Documented by: [id number] Admin: 04/06/21 14:00 Dose: 50 mg Documented by: [id number] Umeclidinium [place] (Umeclidinium [place] 62.5mcg/Blister 7 Puffs/Inhaler) 1 puffs INH DAILY [facility] Stop: 05/06/21 08:59 Last Admin: 04/09/21 08:29 Dose: 1 puffs Documented by: [id number] Admin: 04/08/21 09:38 Dose: 1 puffs Documented by: [id number] Admin: 04/07/21 08:48 Dose: 1 puffs Documented by: [id number] Admin: 04/06/21 10:45 Dose: 1 puffs Documented by: [id number] Medical Decision Making Differential Diagnosis Infection, hypoglycemia, electrolyte abnormalities, overdose, toxicologic, cardiac sources, intracerebral event, neurologic, trauma, as well as other pathologies. Medical Records Attestation: I reviewed the patient's medical records. Home Medications Current Medication List: was personally reviewed by me Laboratory Data Attestation: I reviewed the patient's lab results. Result diagrams: 04/06/21 06:26 04/06/21 06:26 Lab Results 04/05/21 04/05/21 04/05/21 Range/Units 15:08 15:08 15:08 WBC (4.8-10.8) K/uL RBC (4.2-5.4) M/uL Hgb (12.0-16.0) g/dL Hct (37-47) % MCV (80-100) fL MCH (25-34) pg MCHC (32-36) g/dL RDW Std Deviation (36.4-46.3) fL RDW Coeff of Reg (11.5-14.5) % Plt Count (130-400) K/uL MPV (7.4-10.4) fL Immature Gran % (Auto) % Neut % (Auto) % Lymph % (Auto) % [place] % (Auto) % Eos % (Auto) % Baso % (Auto) % Neut # (Auto) (1.4-6.5) K/uL Lymph # (Auto) (1.2-3.4) K/uL [place] # (Auto) (0.11-0.59) K/uL Eos # (Auto) (0-0.5) K/uL Baso # (Auto) (0-0.2) K/uL Immature Gran # (Auto) (0.00-0.02) K/uL ABG pH (7.35-7.45) ABG pCO2 (35-46) mmHg ABG pO2 (80-95) mmHg ABG HCO3 (19-24) mmol/L ABG O2 Saturation (90-95) % ABG Base Excess (-9-1.8) mEq/L Clarence Test (Pos) Barometric Pressure mm/Hg Oxygen Given Sodium (136-145) mmol/L Potassium (3.5-5.1) mmol/L Chloride (98-107) mmol/L Carbon Dioxide (21-32) mmol/L Anion Gap (3-11) BUN (7-18) mg/dl Creatinine (0.6-1.2) mg/dl Est Cr Clr Drug Dosing ml/min Est GFR ( Amer) ml/min Est GFR (Non-Af Amer) ml/min BUN/Creatinine Ratio (10-20) Glucose (70-99) mg/dl Lactate 1.4 (0.4-2.0) mmol/L Calcium (8.5-10.1) mg/dl Magnesium (1.8-2.4) mg/dl Total Bilirubin (0.2-1) mg/dl AST (15-37) U/L ALT (12-78) U/L Alkaline Phosphatase (45-117) U/L Ammonia 14.7 (11-32) umol/L Total Protein (6.4-8.2) gm/dl Albumin (3.4-5.0) gm/dl Globulin (2.5-4.0) gm/dl Albumin/Globulin Ratio (0.9-2) TSH (0.300-4.500) uIu/ml Ethyl Alcohol mg/dL < 3.0 (0-3) mg/dl COVID-19 Eval Order SARS-CoV-2 (PCR) (Negative) 04/05/21 04/05/21 04/05/21 Range/Units 15:08 15:08 15:08 WBC 11.59 H (4.8-10.8) K/uL RBC 4.41 (4.2-5.4) M/uL Hgb 12.4 (12.0-16.0) g/dL Hct 41.5 (37-47) % MCV 94.1 (80-100) fL MCH 28.1 (25-34) pg MCHC 29.9 L (32-36) g/dL RDW Std Deviation 46.8 H (36.4-46.3) fL RDW Coeff of Reg 13.5 (11.5-14.5) % Plt Count 275 (130-400) K/uL MPV 10.9 H (7.4-10.4) fL Immature Gran % (Auto) 0.3 % Neut % (Auto) 87.0 % Lymph % (Auto) 4.6 % [place] % (Auto) 7.6 % Eos % (Auto) 0.4 % Baso % (Auto) 0.1 % Neut # (Auto) 10.08 H (1.4-6.5) K/uL Lymph # (Auto) 0.53 L (1.2-3.4) K/uL [place] # (Auto) 0.88 H (0.11-0.59) K/uL Eos # (Auto) 0.05 (0-0.5) K/uL Baso # (Auto) 0.01 (0-0.2) K/uL Immature Gran # (Auto) 0.04 H (0.00-0.02) K/uL ABG pH 7.41 (7.35-7.45) ABG pCO2 79 H (35-46) mmHg ABG pO2 68 L (80-95) mmHg ABG HCO3 49 H (19-24) mmol/L ABG O2 Saturation 93.4 (90-95) % ABG Base Excess 19.9 H (-9-1.8) mEq/L Clarence Test POS (Pos) Barometric Pressure 728.9 mm/Hg Oxygen Given 4 L Sodium 137 (136-145) mmol/L Potassium 3.7 (3.5-5.1) mmol/L Chloride 89 L (98-107) mmol/L Carbon Dioxide 57 H* (21-32) mmol/L Anion Gap -10.0 L (3-11) BUN 21 H (7-18) mg/dl Creatinine 0.50 L (0.6-1.2) mg/dl Est Cr Clr Drug Dosing 94.1 ml/min Est GFR ( Amer) 108.2 ml/min Est GFR (Non-Af Amer) 93.4 ml/min BUN/Creatinine Ratio 42.7 H (10-20) Glucose 118 H (70-99) mg/dl Lactate (0.4-2.0) mmol/L Calcium 9.7 (8.5-10.1) mg/dl Magnesium 2.2 (1.8-2.4) mg/dl Total Bilirubin 1.1 H (0.2-1) mg/dl AST 10 L (15-37) U/L ALT 18 (12-78) U/L Alkaline Phosphatase 70 (45-117) U/L Ammonia (11-32) umol/L Total Protein 7.2 (6.4-8.2) gm/dl Albumin 3.6 (3.4-5.0) gm/dl Globulin 3.6 (2.5-4.0) gm/dl Albumin/Globulin Ratio 1.0 (0.9-2) TSH 0.538 (0.300-4.500) uIu/ml Ethyl Alcohol mg/dL (0-3) mg/dl COVID-19 Eval Order SARS-CoV-2 (PCR) (Negative) 04/05/21 04/05/21 Range/Units 18:00 18:00 WBC (4.8-10.8) K/uL RBC (4.2-5.4) M/uL Hgb (12.0-16.0) g/dL Hct (37-47) % MCV (80-100) fL MCH (25-34) pg MCHC (32-36) g/dL RDW Std Deviation (36.4-46.3) fL RDW Coeff of Reg (11.5-14.5) % Plt Count (130-400) K/uL MPV (7.4-10.4) fL Immature Gran % (Auto) % Neut % (Auto) % Lymph % (Auto) % [place] % (Auto) % Eos % (Auto) % Baso % (Auto) % Neut # (Auto) (1.4-6.5) K/uL Lymph # (Auto) (1.2-3.4) K/uL [place] # (Auto) (0.11-0.59) K/uL Eos # (Auto) (0-0.5) K/uL Baso # (Auto) (0-0.2) K/uL Immature Gran # (Auto) (0.00-0.02) K/uL ABG pH (7.35-7.45) ABG pCO2 (35-46) mmHg ABG pO2 (80-95) mmHg ABG HCO3 (19-24) mmol/L ABG O2 Saturation (90-95) % ABG Base Excess (-9-1.8) mEq/L Clarence Test (Pos) Barometric Pressure mm/Hg Oxygen Given Sodium (136-145) mmol/L Potassium (3.5-5.1) mmol/L Chloride (98-107) mmol/L Carbon Dioxide (21-32) mmol/L Anion Gap (3-11) BUN (7-18) mg/dl Creatinine (0.6-1.2) mg/dl Est Cr Clr Drug Dosing ml/min Est GFR ( Amer) ml/min Est GFR (Non-Af Amer) ml/min BUN/Creatinine Ratio (10-20) Glucose (70-99) mg/dl Lactate (0.4-2.0) mmol/L Calcium (8.5-10.1) mg/dl Magnesium (1.8-2.4) mg/dl Total Bilirubin (0.2-1) mg/dl AST (15-37) U/L ALT (12-78) U/L Alkaline Phosphatase (45-117) U/L Ammonia (11-32) umol/L Total Protein (6.4-8.2) gm/dl Albumin (3.4-5.0) gm/dl Globulin (2.5-4.0) gm/dl Albumin/Globulin Ratio (0.9-2) TSH (0.300-4.500) uIu/ml Ethyl Alcohol mg/dL (0-3) mg/dl COVID-19 Eval Order Covid19 at [facility] SARS-CoV-2 (PCR) NEGATIVE (Negative) Imaging Data Radiologist's Impression: Head CT 04/05/21 15:01 CT head/brain wo con CLINICAL HISTORY: 75 years-old Female with AMS. Acutely altered mental status TECHNIQUE: Multiple axial CT images of the head were obtained without contrast. A dose lowering technique was utilized adhering to the principles of ALARA. CT DOSE: 1225.46 mGy.cm COMPARISON: Head CT 03/04/2021. FINDINGS: Motion degraded exam. The study was then repeated which was also motion degraded. No acute intracranial hemorrhage, midline shift, intracranial mass, hydrocephalus, territorial ischemia or abnormal extra-axial collection. Age- related involutional changes. White matter hypodensities suggestive of chronic microvascular ischemic disease. Cerebral vascular and senescent basal ganglia calcifications. The calvarium is intact. Bilateral cataract repair. The paranasal sinuses, mastoid air cells, and middle ear cavities are clear. IMPRESSION: Motion degraded exam. No acute intracranial abnormality. ACT 112: Negative or not required by law. The above report was generated using voice recognition software. It may contain grammatical, syntax or spelling errors. Electronically signed by: Zach Perez M.D. 04/05/2021 3:57 PM Chest X-Ray 04/05/21 15:02 XR chest 1V portable HISTORY: 75 years-old Female weakness acute weakness COMPARISON: Chest radiograph 03/22/2021, CT abdomen and pelvis 03/23/2021 TECHNIQUE: Portable AP view the chest FINDINGS: Cardiac silhouette is mildly enlarged. Unchanged appearance of mediastinum. Interstitial coarsening of the lung bases has mildly progressed from comparison. No pneumothorax, pleural effusion or overt pulmonary edema. Degenerative changes of the shoulders and spine. IMPRESSION: Bibasilar interstitial coarsening appears more pronounced than comparison which is likely projectional and/or secondary to atelectasis. A mild pneumonitis is considered less likely. ACT 112: Negative or not required by law. The above report was generated using voice recognition software. It may contain grammatical, syntax or spelling errors. Electronically signed by: Zach Perez M.D. 04/05/2021 3:20 PM ECG Data Attestation: I personally reviewed and interpreted this ECG as follows: Indication: + SOB/dyspnea and + other (AMS) Rate (beats per minute): 118 Rhythm: + sinus tachycardia ECG Intervals/blocks: + Normal QT-c ECG [place]: + Left axis deviation ECG ST segments: + Normal ST segments Additional Comments: Is unknown. Blood Pressure Blood Pressure Findings: Elevated blood pressure Blood Pressure Disposition: further management by hospitalist [facility] Narrative This patient was evaluated and appeared to be altered but in no distress. The patient's oxygen saturations have recovered with supplemental O2 by EMS. Chest x-ray was performed and reveals bibasilar interstitial coarsening but no focal lung consolidation. Pt was given IV solumedral and a duoneb tx. Head CT was negative. Speech difficulties and confusion seemed to be attributable to hypoxia, however they were persistent. EKG reveals a sinus tachycardia without acute ischemia or dysrhythmia. Laboratory work revealed CO2 retention. Covid swab is negative. The patient may have had an acute weakness episode secondary to oxygen noncompliance and was not able to recover however there is a concern for stroke or other metabolic process. Patient's last known well time is unknown, further work-up will need to be pursued. Patient's case was discussed with the hospitalist service who evaluated patient for admission and further management. Impression & Plan Acute alteration in mental status, COPD (chronic obstructive pulmonary disease), Acute hypoxemic respiratory failure Discharge Plan Visit Data Chief Complaint: Shortness of Breath/Dyspnea Stated Complaint: SOB,HYPOXIA ED Provider: Jessica Davis Discharge Problem: Acute alteration in mental status, COPD (chronic obstructive pulmonary disease), Acute hypoxemic respiratory failure Patient Disposition: Admitted As Inpatient Discharge Instructions Interventions: ED Discharge Assessment Last Done: 04/05/21 20:50 Discharge Problem: COPD (chronic obstructive pulmonary disease) Qualifiers: COPD type: unspecified COPD Qualified Code(s): J44.9 - Chronic obstructive pulmonary disease, unspecified
[2021-04-05 18:43] LABS: Bacteria Urine Negative (Negative); Epithelial Cell Urine 0-5 /lpf (0-5); RBC Urine 0-4 /hpf (0-4); WBC Urine 0-5 /hpf (0-5)
[2021-04-05 18:44] LABS: Amorphous Sediment Urine Present (None Prsent)
[2021-04-05 18:58] LABS: Amphetamines+Metham, Urine Neg (Neg); Barbiturates, Urine Neg (Neg); Benzodiazepine, Urine Neg (Neg); Cocaine, Urine Neg (Neg); MDMA (Ecstacy), Urine Neg (Neg); Methadone, Urine Neg (Neg); Opiate, Urine Neg (Neg); Phencyclidine, Urine Neg (Neg)
[2021-04-05] MEDS ORDERED: OPTIRAY 320 125ml IV ONE (20:17)
[2021-04-05] MEDS ORDERED: DICLOFENAC SOD 1% GEL 100 GM TUBE EXT PRN (20:32)
[2021-04-05] MEDS ORDERED: METOPROLOL TARTRATE 1 MG/ML VIAL IV PRN (20:32)
[2021-04-05] MEDS ORDERED: POLYETHYLENE (MIRALAX) 17 GM PACK PO PRN ×2 (20:32)
[2021-04-05] MEDS ORDERED: PHARMACIST DISCHARGE MED REC CONSULT PRN (20:32)
[2021-04-05] MEDS ORDERED: ONDANSETRON INJ 2 MG/ML 2 ML VIAL IV PRN (20:32)
[2021-04-05] MEDS ORDERED: ACETAMINOPHEN 325 MG TAB PO PRN (20:32)
--- NOTE | 2021-04-05 20:46 | CT Scan Report ---
CT angio chest PE protocol CT DOSE: 1345.46 mGy.cm HISTORY: 75 years-old Female with PE. Acute shortness of breath TECHNIQUE: Multiple CTA images of the chest were obtained after the intravenous administration of 117 ml Optiray. Coronal and sagittal MIPS were obtained from the axial data set and were submitted for review. All measurements were obtained according to NASCET criteria. A dose lowering technique was u tilized adhering to the principles of ALARA. COMPARISON: Chest radiograph of same day, CTA chest 01/19/2021 FINDINGS: Limited exam secondary to a partially positioning. CTA: Mild cardiac megaly. No pericardial effusion. Extensive coronary artery calcifications. Atheroscleros is of the thoracic aorta. No aneurysm. Suboptimal opacification of the pulmonary artery secondary to contrast bolus timing. No central pulmonary emboli identified. CT CHEST: No thyroid nodule. No adenopathy. No pneumothorax, pleural effusion or overt pulmonary edema. Central airways are patent. Respiratory motion artifact limits evaluation of the lungs. Mild bilateral bronc hial wall thickening. Scattered multifocal subsegmental tree-in-bud nodules are present bilaterally. Mild emphysema. Mild bronchial wall thickening. Cholelithiasis. No pneumoperitoneum. No acute process of the imaged upper abdomen. Unremarkable soft tissues. No acute fracture. Chronic left-sided rib fractures. Severe T7 compression deformity redemon strated. IMPRESSION: 1. Limited exam as above. No central pulmonary emboli identified. 2. Mild bronchial wall thickening suggestive of bronchitis or reactive airway disease. Associated mul tifocal bilateral tree-in-bud nodules are suggestive of an infectious or inflammatory bronchiolitis. 3. No adenopathy. 4. Cholelithiasis. ACT 112: Negative or not required by law. The above report was generated using voice recognition software. It may contain grammatical, syntax o r spelling errors. Electronically signed by: Zach Perez M.D. 04/05/2021 8:45 PM
[2021-04-05 21:34] LABS: Base Excess ABG 14.3 mEq/L (-9-1.8); HCO3 ABG 43 mmol/L (19-24); Oxygen Saturation ABG 92.3 % (90-95); PCO2 ABG 77 mmHg (35-46); PO2 ABG 59 mmHg (80-95); pH ABG 7.37 (7.35-7.45)
[2021-04-05] MEDS: METOPROLOL SUCC 50MG EXT REL TAB PO SCH (22:11)
[2021-04-05] MEDS: DOCUSATE SODIUM 100 MG CAP PO SCH (22:11)
[2021-04-05] MEDS: DOXYCYCLINE HYCLATE 100 MG in DEXTROSE 5% 100 ML IV SCH (22:12)
[2021-04-05] MEDS: LEVALBUTEROL 0.31MG/3 ML VIAL NEB SCH (22:35)
[2021-04-05] MEDS: IPRATROPIUM BROMIDE NEB SOLN 0.02% 2.5 ML VIAL NEB SCH (22:36)
[2021-04-06] MEDS: LEVALBUTEROL 0.31MG/3 ML VIAL NEB SCH ×2 (00:55→07:08)
[2021-04-06 06:56] LABS: Hematocrit (blood only) 39.5 % (37-47); Hemoglobin 11.9 g/dL (12.0-16.0); Mean Corpuscular Hgb Conc 30.1 g/dL (32-36); Mean Corpuscular Volume 92.9 fL (80-100); Mean Platelet Volume 10.8 fL (7.4-10.4); Platelet Count 294 K/uL (130-400); RDW Coefficient of Variation 14.1 % (11.5-14.5); RDW Standard Deviation 47.5 fL (36.4-46.3); Red Blood Count 4.25 M/uL (4.2-5.4); White Blood Count 9.86 K/uL (4.8-10.8)
[2021-04-06] MEDS: IPRATROPIUM BROMIDE NEB SOLN 0.02% 2.5 ML VIAL NEB SCH ×2 (07:08→13:03)
--- NOTE | 2021-04-06 08:21 | Pulmonary Consultation ---
Date of Consultation April 06, 2021 Assessment & Plan (1) COPD (chronic obstructive pulmonary disease): (2) Acute on chronic respiratory failure with hypoxia and hypercapnia: CTA chest 04/05/2021 personally reviewed: Centrilobular emphysema, increased AP diameter Minimal tree-in-bud opacities appreciated bilaterally No mediastinal adenopathy ABG 04/05/2021: 7.41/79/68 on 4 L nasal cannula --Acute on chronic hypercapnic hypoxic respiratory failure Likely secondary to noncompliance with Trilogy AVAPS and oxygen Continue with inhaled bronchodilators Continue with doxycycline given the patient has prolonged QTC Continue with BiPAP nightly and as needed shortness of breath. Keep O2 saturation between 88-92% Tree-in-bud opacities on the CAT scan are likely mucous plugging. Will be guaifenesin and flutter valve. --COPD with emphysema Symbicort at home Add Incruse Would recommend Incruse even on discharge Continue with Roflumilast --JOHN/OHS Continue with BiPAP nightly and as needed shortness of breath Patient has trilogy AVAPS at home. Plan: Incruse inhaler added to the regimen I think we can start tapering steroids to p.o. as of tomorrow. 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 I think it is admitted for her to follow-up as an outpatient so that she does not end up in the hospital again again. Importance of compliance with Trilogy AVAPS explained to the patient. If the patient is not willing to use it which is evident given her multiple admissions in the past palliative care consult should be considered and change of CODE STATUS should be thought of. Please note the above document was generated using voice recognition software. It may contain grammatical, syntax or spelling errors.Any formal questions or concerns about the content, text or information contained within the body of this dictation should be directly addressed to the provider for clarification. (3) COPD exacerbation: (4) Acute metabolic encephalopathy: History of Present Illness Attending Physician: Flora Taylor MD History of Present Illness 75-year-old female with past medical history of hypercapnic hypoxic respiratory failure on home 3 L O2, diastolic CHF, COPD, fibromyalgia, dyslipidemia was admitted to the hospital with altered mental status. Patient was recently in the hospital for hypercapnic hypoxic respiratory failure. He was discharged on Augmentin. She does have trilogy machine at home but she is noncompliant with it. Patient was found to be hypoxic at her home and altered leading to coming to the ER and admission. Pulmonary were consulted for the same. ABG 04/05/2021: 7.41/79/68 on 4 L nasal cannula At the time of examination patient was awake alert oriented to self. She was asking for food. She denied any chest pain, stated that her breathing is better. Denied any nausea or vomiting. No diarrhea, no dysuria. Denies any fever or chills. Complains of cough which has not changed from before. Patient said that she has been using her AVAPS machine. On asking whether she is using it every night she was a bit hesitant to answer. She does state that she is trying. States that she is compliant with her inhalers. No hemoptysis. Social history: Greater than 27-[id number]-miad smoking history, quit in 2003 Allergies Allergy/AdvReac Type Severity Reaction Status Date / Time duloxetine [From Cymbalta] Allergy Mild Rash Verified 04/05/21 16:57 naproxen AdvReac Mild GI SYMPTOMS Verified 04/05/21 16:57 Home Medications Medication Instructions Recorded Confirmed Type albuterol sulfate [Ventolin HFA] 2 puff INHALATION QID PRN 12/14/18 04/05/21 History atorvastatin 40 mg PO QAM 12/14/18 04/05/21 History losartan 25 mg PO QAM 12/14/18 04/05/21 History magnesium oxide 400 mg PO QAM 02/13/19 04/05/21 History metoprolol succinate 50 mg PO QAM 04/22/19 04/05/21 History Oxygen Home #1 ea 11/05/19 01/19/21 Rx diclofenac sodium 1 % topical gel 1 ea TOP QID PRN 01/22/20 04/05/21 History tramadol 50 mg tablet 50 mg PO Q6H PRN 01/22/20 04/05/21 History roflumilast 250 mcg tablet 250 mcg PO QAM #90 tab 06/30/20 04/05/21 Rx aspirin 81 mg PO DAILY 01/19/21 04/05/21 History docusate sodium 100 mg PO BID 01/19/21 04/05/21 History budesonide-formoterol 2 puffs INH BID #10.2 gm 01/21/21 04/05/21 Rx pantoprazole 40 mg PO DAILY #30 tab 01/21/21 04/05/21 Rx polyethylene glycol 3350 [Miralax] 17 g PO DAILY PRN #30 ea 01/21/21 04/05/21 Rx Multivitamin Gummies 2 tab PO DAILY 03/04/21 04/05/21 History acetaminophen [Tylenol Extra 1,000 mg PO Q6H PRN 03/22/21 04/05/21 History Strength] calcium carbonate [Tums E-X] 300 mg PO DAILY PRN 03/22/21 04/05/21 History fluticasone propionate 2 spray INTRANASAL DAILY 03/22/21 04/05/21 History ipratropium-albuterol 3 ml INHALATION Q4H PRN 03/22/21 04/05/21 History prednisone 10 mg PO DAILY 04/05/21 04/05/21 History Patient History Medical History (Updated 04/05/21 @ 20:08 by Sommer Cherry PA-C) BCC (basal cell carcinoma of skin) on left side of face---"s/p MOHS surgery" Chronic diastolic heart failure Chronic respiratory failure with hypoxia, on home O2 therapy OXYGEN 3L/MIN VIA NC COPD (chronic obstructive pulmonary disease) inhaler daily/prn and nebulizer prn COPD (chronic obstructive pulmonary disease) Degenerative disc disease Dyslipidemia Fibromyalgia GERD (gastroesophageal reflux disease) Hypertension On home oxygen therapy 3L N/C at all times Osteoporosis Palliative care encounter Sinus tachycardia SOB (shortness of breath) on exertion Tremor of both hands Surgical History History of bilateral cataract extraction History of carpal tunnel surgery of right wrist History of colonoscopy with polypectomy History of esophagogastroduodenoscopy (EGD) History of left breast biopsy benign History of mandibular surgery jaw fx History of repair of left rotator cuff History of repair of right rotator cuff History of tooth extraction S/P Mohs surgery for basal cell carcinoma Status post appendectomy Status post excision of lipoma removed off neck x2 Status post hysterectomy Status post repair of ventral hernia Family History Grandfather (Maternal) Family hx of colon cancer Father FH: kidney cancer Family/Other Family history of diabetes mellitus nephew Other Kidney disease Lung disease No family history of adverse response to anesthesia Social History Smoking Status: Former smoker Tobacco Type: Cigarettes Cigarettes Per Day: unsure when she quit; Second Hand Exposure: No; Do You Dip or Chew Tobacco: No; Hx Alcohol Use: No Hx Substance Use: No Preferred Language: Lithuanian Communication Ability: Impaired Communication Ability Comment: Pt currently confused Hand Sign Writer Required: No Beliefs That Will Affect Care: None marital status: / Current Living Situation: Alone current occupational status: retired How many Children do You have: 3 Other Information That Helps Us Care for You: No Feels Safe at Home: Yes Safety Concerns: Feels Safe At This Time Assistive Devices: Oxygen - Continuous Review of Systems Review of Systems: All systems reviewed & are unremarkable except as noted in HPI & below Physical Exam Physical Exam: Constitutional: No acute distress HEENT: EOMI, PERRLA Respiratory system: Decreased air entry bilaterally, no wheeze, no rhonchi, positive crackles bilateral lower lobes CVS: S1-S2 positive, no murmurs or gallops, distant heart sounds Abdomen: Soft, nontender, nondistended, positive bowel sounds x4 Extremities: +2 pulses bilaterally radialis/ dorsalis pedis, no cyanosis, no edema Neuro: Awake alert oriented to self Psych: Normal mood and affect G/U: No Cole Skin: no rashes, warm and dry Lymphatic: no cervical or axillary lymphadenopathy Results & Data Results & Data ([facility]) Vital Signs (Past 12 Hours) Vital Signs Temp Pulse Pulse Resp BP Pulse Ox Pulse Ox 04/06/21 07:41 86 04/06/21 07:10 81 81 20 94 04/06/21 07:05 36.9 C 75 17 137/78 91 04/06/21 03:50 37.2 C 97 H 119/78 100 04/06/21 02:50 97 04/06/21 00:56 27 H 97 04/06/21 00:00 36.4 C L 122 H 101 H 20 167/81 H 99 04/05/21 22:37 57 L 30 H 97 04/05/21 22:27 57 L 30 H 97 04/05/21 20:40 120 H 04/05/21 20:32 37 C 129 H 113 H 31 H 144/83 H 94 99 04/06/21 06:26 PG Care Time/CCT Total # of Minutes Spent Total Time Spent with Patient: Total time spent is greater than 50% in coordination of care (as documented) at patient's floor/unit and/or counseling patient: Coding Level of Care Code 02405 Initial Inpt Care Lvl 3 Diagnoses COPD (chronic obstructive pulmonary disease) J44.9 Acute on chronic respiratory failure with hypoxia and hypercapnia J96.21; J96.22 COPD exacerbation J44.1 Acute metabolic encephalopathy G93.41
[2021-04-06 08:26] LABS: BUN Creatinine Ratio 37.1 (10-20); Calcium 9.6 mg/dl (8.5-10.1); Creatinine Clr Calc Pharmacy 62.3 ml/min; Est GFR (African American) 97.8 ml/min; Est GFR (Non-African American) 84.4 ml/min; Magnesium 2.5 mg/dl (1.8-2.4); Potassium 3.5 mmol/L (3.5-5.1)
[2021-04-06 08:58] LABS: Estimated Average Glucose 114 mg/dl; Hemoglobin A1C 5.6 % (4.5-5.6)
[2021-04-06] MEDS ORDERED: GADOBUTROL 65ML VIAL IV ONE (10:14)
--- NOTE | 2021-04-06 10:39 | Magnetic Resonance Report ---
MRI OF THE BRAIN WITHOUT AND WITH IV CONTRAST CLINICAL HISTORY: Strokelike symptoms. Bilateral leg weakness. Inability to walk. COMPARISON STUDY: CT scan dated 04/05/2001 TECHNIQUE: MRI of the brain was performed from the vertex to the skull base utilizing various T1 and T2 weighted sequences. Following the IV administration of 6.8 mL of Gadavist contrast, additional enh anced images were obtained. FINDINGS: Sagittal T1, axial diffusion, proton density and T2 weighted axial, coronal FLAIR, and pre and post a xial T1-weighted images were acquired. These were supplemented with post gadolinium coronal T1 weight ed images. No intra or extra-axial mass lesions are visualized. Axial diffusion-weighted images reveal no evidence of acute or subacute infarction. There is no evidence of ventricular dilatation. Proton density T2-weighted and FLAIR images reveal moderate scattered foci of increased T2 signal wit hin the white matter, likely on a small vessel basis. There are no abnormal flow voids. There is no evidence of pathologic enhancement. IMPRESSION: 1. No acute intracranial findings 2. No evidence of intracranial mass 3. No evidence of acute subacute infarction 4. Moderate foci of increased T2 signal within the white matter statistically on a small vessel basis ACT 112: Negative or not required by law. Electronically signed by: Darrian Montanez M.D. 04/06/2021 10:38 AM
[2021-04-06] MEDS: DOXYCYCLINE HYCLATE 100 MG in DEXTROSE 5% 100 ML IV SCH (10:44)
[2021-04-06] MEDS: ATORVASTATIN 40 MG TAB PO SCH (10:45)
[2021-04-06] MEDS: UMECLIDINIUM BROMIDE 62.5MCG/BLISTER 7 PUFFS/INHALER INH SCH (10:45)
[2021-04-06] MEDS: LOSARTAN POTASSIUM 25 MG TAB PO SCH (10:45)
[2021-04-06] MEDS: DOCUSATE SODIUM 100 MG CAP PO SCH ×2 (10:45→20:16)
[2021-04-06] MEDS: METOPROLOL SUCC 50MG EXT REL TAB PO SCH (10:45)
[2021-04-06] MEDS: FLUTICASONE PROPIONATE NA SPR 16 GM BTL SCH (10:46)
[2021-04-06] MEDS: ROFLUMILAST 500 MCG TAB PO SCH (10:46)
[2021-04-06] MEDS: ASPIRIN 81 MG ECTAB PO SCH (10:46)
[2021-04-06] MEDS: MAGNESIUM OXIDE 400 MG TAB PO SCH (10:46)
[2021-04-06] MEDS: FLUTICASONE/VILANTEROL 200/25MCG 14 PUFFS/INHALER INH SCH (10:46)
[2021-04-06] MEDS: PANTOprazole 40 MG TAB PO SCH (10:46)
[2021-04-06] MEDS: methylPREDNISolone 40 MG in SYRINGE 0 ML IV SCH (10:47)
[2021-04-06] MEDS: ENOXAPARIN INJ 40 MG/0.4 ML SYR SQ SCH (10:47)
--- NOTE | 2021-04-06 11:08 | Hospitalist Progress Note ---
Date of Service April 06, 2021 Assessment & Plan (1) Acute hypercapnic respiratory failure: (2) Chronic respiratory failure with hypoxia and hypercapnia: (3) Acute metabolic encephalopathy: (4) COPD (chronic obstructive pulmonary disease): (5) Sinus tachycardia: (6) Chronic diastolic heart failure: (7) Hypertension: (8) Discharge planning issues: This is a 75yo F with a PMH of chronic hypoxic and hypercapnic respiratory failure on 3L NC O2 2/2 to COPD and obesity hypoventilation syndrome, chronic diastolic CHF, chronic sinus tachycardia, HTN, HLD, fibromyalgia, GERD, ambulatory dysfunction who presents to ED with hypoxia and altered mental status. Acute on chronic respiratory failure with hypoxia and hypercapnia Due to noncompliance with BiPAP/allergy This is patient's third admission over the past few months for acute on chronic respiratory failure Recurrent admission hypoxemic and hypercarbic respiratory failure and severe COPD, noncompliant with Triology machine HS Follows with [facility] pulmonary has not been following with any lung specialist for over a year Initial ABG with pH 7.4, pCO2 79, HCO3:49 Patient was placed on BiPAP, repeat VBG shows improvement of CO2 Patient is more awake and alert this afternoon, transition to nasal cannula After trying to explain patient the importance of utilizing BiPAP/trilogy machine, patient got upset Does not want to deal with consequences of not utilizing trilogy machine at night Does not want to hear about life-threatening consequences that can happen from CO2 retention/aspiratory failure, given her advanced COPD She believes something else caused her to get sick, believes all the scans/test which were done earlier will have the answer I explained to her her CT head CTA of the chest, brain MRI everything came out to be benign, Her obtundation/comatose status not due to stroke Possibly secondary to respiratory failure-patient is angry Does not believe not using the trilogy machine causing her to get admitted being sick Acute metabolic encephalopathy Difficulty with word finding In setting of hypercapnia -lines of trilogy machine at home Ental status improved to baseline after BiPAP, awake and alert no difficulty in speech articulation CT head without acute intracranial abnormality MRI of brain, no acute intracranial abnormality COPD exacerbation Continue BiPAP, IV Solu-Medrol 40 mg IV daily, starting on doxycycline Continue Xopenex and ipratropium nebulizer treatments scheduled Appreciate input from pulmonology, will be changed to p.o. prednisone taper tomorrow Overall prognosis remains extremely poor, Patient does not want to discuss her long-term clinical status Sinus tachycardia Secondary to hypoxemia Chronic condition with baseline HR ~ 105 HR 120s-130s initially in setting of respiratory failure, bronchodilators CTA chest negative for PE Congestive heart failure EF 40 to 45%, TTE 2020 Patient euvolemic Monitor Volume status Hypertension Continue losartan, Toprol CODE STATUS: Full code, patient does not want to discuss about terminal status Discharge planning issues Patient has refused to rehab in the past, Possible discharge home when medically stable Son Mono updated over phone DVT Ppx: SQ Lovenox Code status: FULL PCP: [facility] Admission and Anticipated Discharge Date Admission Date: April 05, 2021 Subjective Follow-up visit for acute hypoxemic respiratory failure. COPD exacerbation Patient sitting up in chair, states that she feels fine, does not remember what happened that she noted in the hospital. But believes all the scans that was done have been answered. I explained to the patient her CT head/MRI of brain shows no evidence of stroke The possible reason that she got readmitted being so sick, as she is not using the BiPAP/trilogy, causing CO2 retention, made her confused and obtunded, that she was not even on nasal cannula oxygen Last admission a week back to see me a situation noncompliant with trilogy BiPAP, admitted with obtundation, disorientation Clinical status improves after few hours of BiPAP in hospital Patient is extremely adamant, does not believe she is doing withdrawal, Very irritated and angry that all of us keep on telling her using the mask which she has been using, later she corrects that she has not been using it she does not like it I tried to explain patient that her next incident, she may have a life- threatening consequences, severe respiratory failure/ Patient got extremely upset, yelling that" all we do is to scare her"-when she is trying to get better In regarding to address CODE STATUS, she gets angry again, does not want to talk about or dying, Does not want to discuss mechanical ventilation-as it is just making her upset and angry, upset the lung doctor in the morning also kept on talking about the Bipap machine Patient wanted this provider to leave, She wanted to be in peace and quiet , she can not recover or get better if all the doctors keep on bothering her and make her upset . Review of Systems Respiratory: + cough; no dyspnea and no wheezing Physical Exam Physical Exam: Physical exam: General: Elderly female, no acute distress HEENT: PERRLA, EOMI, Heart: Regular S1-S2, no carotid bruit, no JVD, no lower extremity edema Lungs: Managed with scattered wheeze Abdomen: Soft nontender, no organomegaly Extremity: No cyanosis, no deformity, Neuro: No focal neurological deficit normal speech, Psych: Alert awake oriented x3, Results & Data Results & Data ([facility]) Vital Signs (Past 12 Hours) Vital Signs Temp Pulse Pulse Resp BP Pulse Ox 04/06/21 10:58 36.9 C 106 H 17 125/65 92 04/06/21 07:41 86 04/06/21 07:10 81 81 20 94 04/06/21 07:05 36.9 C 75 17 137/78 91 04/06/21 03:50 37.2 C 97 H 119/78 100 04/06/21 02:50 97 04/06/21 00:56 27 H 97 04/06/21 00:00 36.4 C L 122 H 101 H 20 167/81 H 99 (1) Hypertension Hypertension type: unspecified Qualified Code(s): I10 - Essential (primary) hypertension
[2021-04-06] MEDS: LEVALBUTEROL 1.25MG/0.5ML NEB NEB SCH (13:03)
--- NOTE | 2021-04-06 13:15 | Electrocardiogram Report ---
Test Reason : Blood Pressure : / mmHG Vent. Rate : 118 BPM Atrial Rate : 118 BPM P-R Int : 122 ms QRS Dur : 080 ms QT Int : 320 ms P-R-T Axes : 041 -08 059 degrees QTc Int : 448 ms Sinus tachycardia Possible Left atrial enlargement Leftward axis Borderline ECG When compared with ECG of 22-MAR-2021 19:55, No significant change was found Confirmed by Ravinder Dillon ([id number]) on 04/06/2021 1:15:42 PM Referred By: REFERRED SELF Confirmed By:Ravinder Dillon
[2021-04-06] MEDS ORDERED: ACETAMINOPHEN 500 MG TAB PO PRN (13:32)
[2021-04-06] MEDS ORDERED: CALCIUM CARBONATE 500 MG CHEWABLE TAB PO PRN (13:34)
[2021-04-06] MEDS: traMADol HCL 50 MG TABLET PO PRN (14:00)
[2021-04-06] MEDS ORDERED: IPRATROPIUM BROMIDE NEB SOLN 0.02% 2.5 ML VIAL NEB PRN (19:18)
[2021-04-06] MEDS ORDERED: LEVALBUTEROL 1.25MG/0.5ML NEB NEB PRN (19:18)
[2021-04-06] MEDS: DOXYCYCLINE HYCLATE 100 MG CAP PO SCH (20:17)
[2021-04-06] MEDS: guaiFENesin 600 MG TABCR PO SCH (20:17)
[2021-04-07] MEDS: traMADol HCL 50 MG TABLET PO PRN ×2 (06:25→18:41)
[2021-04-07] MEDS: IPRATROPIUM BROMIDE NEB SOLN 0.02% 2.5 ML VIAL NEB SCH (07:18)
[2021-04-07] MEDS: LEVALBUTEROL 1.25MG/0.5ML NEB NEB SCH (07:18)
[2021-04-07] MEDS: methylPREDNISolone 40 MG in SYRINGE 0 ML IV SCH (08:48)
[2021-04-07] MEDS: DOCUSATE SODIUM 100 MG CAP PO SCH ×2 (08:48→19:51)
[2021-04-07] MEDS: UMECLIDINIUM BROMIDE 62.5MCG/BLISTER 7 PUFFS/INHALER INH SCH (08:48)
[2021-04-07] MEDS: LOSARTAN POTASSIUM 25 MG TAB PO SCH (08:48)
[2021-04-07] MEDS: MAGNESIUM OXIDE 400 MG TAB PO SCH (08:48)
[2021-04-07] MEDS: ASPIRIN 81 MG ECTAB PO SCH (08:48)
[2021-04-07] MEDS: guaiFENesin 600 MG TABCR PO SCH ×2 (08:49→19:44)
[2021-04-07] MEDS: METOPROLOL SUCC 50MG EXT REL TAB PO SCH (08:49)
[2021-04-07] MEDS: FLUTICASONE PROPIONATE NA SPR 16 GM BTL SCH (08:49)
[2021-04-07] MEDS: DOXYCYCLINE HYCLATE 100 MG CAP PO SCH ×2 (08:49→19:44)
[2021-04-07] MEDS: ATORVASTATIN 40 MG TAB PO SCH (08:49)
[2021-04-07] MEDS: CEROVITE ADV FORMULA TAB PO SCH (08:49)
[2021-04-07] MEDS: ENOXAPARIN INJ 40 MG/0.4 ML SYR SQ SCH (08:50)
[2021-04-07] MEDS: FLUTICASONE/VILANTEROL 200/25MCG 14 PUFFS/INHALER INH SCH (08:50)
[2021-04-07] MEDS: PANTOprazole 40 MG TAB PO SCH (08:50)
[2021-04-07] MEDS: ROFLUMILAST 500 MCG TAB PO SCH (08:50)
[2021-04-07] MEDS ORDERED: MICONAZOLE NITRATE POWDER 43 GM EXT PRN (11:22)
--- NOTE | 2021-04-07 12:52 | Pulmonology Progress Note ---
Date of Service April 07, 2021 Assessment & Plan (1) COPD (chronic obstructive pulmonary disease): (2) Acute on chronic respiratory failure with hypoxia and hypercapnia: CTA chest 04/05/2021 personally reviewed: Centrilobular emphysema, increased AP diameter Minimal tree-in-bud opacities appreciated bilaterally No mediastinal adenopathy ABG 04/05/2021: 7.41/79/68 on 4 L nasal cannula --Acute on chronic hypercapnic hypoxic respiratory failure Likely secondary to noncompliance with Trilogy AVAPS and oxygen Continue with inhaled bronchodilators Continue with doxycycline given the patient has prolonged QTC Continue with BiPAP nightly and as needed shortness of breath. Keep O2 saturation between 88-92% Tree-in-bud opacities on the CAT scan are likely mucous plugging. Continue with guaifenesin and flutter valve. --COPD with emphysema Symbicort at home Add Incruse Would recommend Incruse even on discharge Continue with Roflumilast --JOHN/OHS Continue with BiPAP nightly and as needed shortness of breath Patient has trilogy AVAPS at home. Plan: Recommend prednisone 40 mg for 3 days followed by 20 mg for 2 and then stop Does have metabolic alkalosis likely from compensation of chronic respiratory acidosis. Acetazolamide 250 mg p.o. twice daily for 6 days could be thought of f. Patient is back to her baseline from pulmonary perspective. No further recommendations. Will follow peripherally. Please call directly with any questions Case was discussed with Dr. Taylor Please note the above document was generated using voice recognition software. It may contain grammatical, syntax or spelling errors.Any formal questions or concerns about the content, text or information contained within the body of this dictation should be directly addressed to the provider for clarification. (3) COPD exacerbation: (4) Acute metabolic encephalopathy: Admission and Anticipated Discharge Date Admission Date: April 05, 2021 Subjective Patient seen and examined at bedside. No acute distress, no adverse events overnight. She was having breakfast at the time of examination. Feels much better. Denies any chest pain, no headache, no nausea, no vomiting. Denies any chest tightness. Cough is significantly improved. She used her BiPAP overnight. Review of Systems Review of Systems: All systems reviewed & are unremarkable except as noted in Subjective Physical Exam Physical Exam: Constitutional: No acute distress HEENT: EOMI, PERRLA Respiratory system: Decreased air entry bilaterally, no wheeze, no rhonchi, positive crackles bilateral lower lobes CVS: S1-S2 positive, no murmurs or gallops, distant heart sounds Abdomen: Soft, nontender, nondistended, positive bowel sounds x4 Extremities: +2 pulses bilaterally radialis/ dorsalis pedis, no cyanosis, no edema Neuro: Awake alert oriented to self, place and time Psych: Normal mood and affect G/U: No Cole Skin: no rashes, warm and dry Lymphatic: no cervical or axillary lymphadenopathy Results & Data Results & Data ([facility]) Vital Signs (Past 12 Hours) Vital Signs Temp Pulse Pulse Resp BP Pulse Ox 04/07/21 08:25 36.8 C 85 18 147/73 H 93 04/07/21 03:05 78 20 96 04/06/21 06:26 04/06/21 06:26 PG Care Time/CCT Total # of Minutes Spent Total Time Spent with Patient: Total time spent is greater than 50% in coordination of care (as documented) at patient's floor/unit and/or counseling patient: Coding Level of Care Code 67434 Subseq Hosp Care Lvl 3 Diagnoses COPD (chronic obstructive pulmonary disease) J44.9 Acute on chronic respiratory failure with hypoxia and hypercapnia J96.21; J96.22 COPD exacerbation J44.1 Acute metabolic encephalopathy G93.41
--- NOTE | 2021-04-07 15:14 | Hospitalist Progress Note ---
Date of Service April 07, 2021 Assessment & Plan (1) Acute hypercapnic respiratory failure: (2) Chronic respiratory failure with hypoxia and hypercapnia: (3) Acute metabolic encephalopathy: (4) COPD (chronic obstructive pulmonary disease): (5) Sinus tachycardia: (6) Chronic diastolic heart failure: (7) Hypertension: (8) Discharge planning issues: This is a 75yo F with a PMH of chronic hypoxic and hypercapnic respiratory failure on 3L NC O2 2/2 to COPD and obesity hypoventilation syndrome, chronic diastolic CHF, chronic sinus tachycardia, HTN, HLD, fibromyalgia, GERD, ambulatory dysfunction who presents to ED with hypoxia and altered mental status. Acute on chronic respiratory failure with hypoxia and hypercapnia Due to noncompliance with BiPAP/ This is patient's third admission over the past few months for acute on chronic respiratory failure Recurrent admission hypoxemic and hypercarbic respiratory failure and severe COPD, noncompliant with Triology machine HS Follows with [facility] pulmonary has not been following with any lung specialist for over a year Initial ABG with pH 7.4, pCO2 79, HCO3:49 Patient was placed on BiPAP, repeat VBG shows improvement of CO2 Patient is awake and alert, respiratory status back to baseline. After much counseling patient willing to try BiPAP machine at night as instructed Appreciate input from pulmonology, IV steroids would be discontinued patient will be discharged home with p.o. prednisone taper Acute metabolic encephalopathy Difficulty with word finding In setting of hypercapnia -lines of trilogy machine at home Mental l status improved to baseline after BiPAP, awake and alert no difficulty in speech articulation CT head without acute intracranial abnormality MRI of brain, no acute intracranial abnormality COPD exacerbation Continue BiPAP, IV Solu-Medrol 40 mg IV daily, starting on doxycycline Continue Xopenex and ipratropium nebulizer treatments scheduled Appreciate input from pulmonology, Sinus tachycardia Secondary to hypoxemia Resolved, heart rate at baseline CTA chest negative for PE Congestive heart failure EF 40 to 45%, TTE 2020 Patient euvolemic Monitor Volume status Hypertension Continue losartan, Toprol CODE STATUS: Full code, patient does not want to discuss about terminal status Discharge planning issues Possible discharge home tomorrow if remains medically stable DVT Ppx: SQ Lovenox Code status: FULL PCP: Puma Admission and Anticipated Discharge Date Admission Date: April 05, 2021 Subjective She reports feeling much better today, does not have any cough no shortness of breath, mental status back to baseline, No fever or chills, on 3 L oxygen via nasal cannula patient's baseline respirat ory status States he utilized BiPAP machine last night, Request Requip for restless leg syndrome Review of Systems Review of Systems: All systems reviewed & are unremarkable except as noted in Subjective Physical Exam Physical Exam: Physical exam: General: Elderly female, no acute distress HEENT: PERRLA, EOMI, Heart: Regular S1-S2, no carotid bruit, no JVD, no lower extremity edema Lungs: Managed with scattered wheeze Abdomen: Soft nontender, no organomegaly Extremity: No cyanosis, no deformity, Neuro: No focal neurological deficit normal speech, Psych: Alert awake oriented x3, Results & Data Results & Data ([facility]) Vital Signs (Past 12 Hours) Vital Signs Temp Pulse Resp BP Pulse Ox 04/07/21 08:25 36.8 C 85 18 147/73 H 93 (1) Hypertension Hypertension type: unspecified Qualified Code(s): I10 - Essential (primary) hypertension
[2021-04-07] MEDS ORDERED: rOPINIRole HCL 0.25 MG TABLET PO STA (21:17)
[2021-04-08] MEDS: ATORVASTATIN 40 MG TAB PO SCH (09:33)
[2021-04-08] MEDS: PANTOprazole 40 MG TAB PO SCH (09:33)
[2021-04-08] MEDS: LOSARTAN POTASSIUM 25 MG TAB PO SCH (09:34)
[2021-04-08] MEDS: MAGNESIUM OXIDE 400 MG TAB PO SCH (09:35)
[2021-04-08] MEDS: ROFLUMILAST 500 MCG TAB PO SCH (09:35)
[2021-04-08] MEDS: ASPIRIN 81 MG ECTAB PO SCH (09:35)
[2021-04-08] MEDS: METOPROLOL SUCC 50MG EXT REL TAB PO SCH (09:35)
[2021-04-08] MEDS: CEROVITE ADV FORMULA TAB PO SCH (09:36)
[2021-04-08] MEDS: FLUTICASONE PROPIONATE NA SPR 16 GM BTL SCH (09:38)
[2021-04-08] MEDS: FLUTICASONE/VILANTEROL 200/25MCG 14 PUFFS/INHALER INH SCH (09:38)
[2021-04-08] MEDS: UMECLIDINIUM BROMIDE 62.5MCG/BLISTER 7 PUFFS/INHALER INH SCH (09:38)
[2021-04-08] MEDS: ENOXAPARIN INJ 40 MG/0.4 ML SYR SQ SCH (09:39)
[2021-04-08] MEDS: guaiFENesin 600 MG TABCR PO SCH ×2 (09:40→20:04)
[2021-04-08] MEDS: traMADol HCL 50 MG TABLET PO PRN ×2 (09:45→22:33)
[2021-04-08] MEDS: DOCUSATE SODIUM 100 MG CAP PO SCH ×2 (09:45→20:08)
[2021-04-08] MEDS: predniSONE 20 MG TAB PO SCH (09:46)
[2021-04-08] MEDS: DOXYCYCLINE HYCLATE 100 MG CAP PO SCH ×2 (09:47→20:04)
--- NOTE | 2021-04-08 14:20 | Hospitalist Progress Note ---
Date of Service April 08, 2021 Assessment & Plan (1) Acute hypercapnic respiratory failure: (2) Chronic respiratory failure with hypoxia and hypercapnia: (3) Acute metabolic encephalopathy: (4) COPD (chronic obstructive pulmonary disease): (5) Sinus tachycardia: (6) Chronic diastolic heart failure: (7) Hypertension: (8) Discharge planning issues: This is a 75yo F with a PMH of chronic hypoxic and hypercapnic respiratory failure on 3L NC O2 2/2 to COPD and obesity hypoventilation syndrome, chronic diastolic CHF, chronic sinus tachycardia, HTN, HLD, fibromyalgia, GERD, ambulatory dysfunction who presents to ED with hypoxia and altered mental status. Acute on chronic respiratory failure with hypoxia and hypercapnia Due to noncompliance with BiPAP/ Recurrent admission hypoxemic and hypercarbic respiratory failure and severe COPD, noncompliant with Triology machine HS Follows with [facility] has not been following with any lung specialist for over a year Initial ABG with pH 7.4, pCO2 79, HCO3:49 Patient was placed on BiPAP, repeat VBG shows improvement of CO2 Patient is awake and alert, respiratory status back to baseline. After much counseling patient willing to try BiPAP machine at night as instructed Appreciate input from pulmonology, pt will be discharged on PO prednisone taper Importance of utilizing BiPAP at home explained patient is a more amenable to utilize the machine Restless leg syndrome. Started on Requip, patient reports improvement of symptoms Acute metabolic encephalopathy Difficulty with word finding All symptoms has resolved, mental status back to baseline In setting of hypercapnia -utilizing trilogy machine at home CT head without acute intracranial abnormality MRI of brain, no acute intracranial abnormality COPD exacerbation Required BiPAP, IV steroids, was started on doxycycline. Speech status improved to baseline, Appreciate input from pulmonology, Patient will be discharged on p.o. doxycycline for 5 more days Sinus tachycardia Secondary to hypoxemia Resolved, heart rate at baseline CTA chest negative for PE Congestive heart failure EF 40 to 45%, TTE 2020 Patient euvolemic Monitor Volume status Hypertension Continue losartan, Toprol CODE STATUS: Full code, patient does not want to discuss about terminal status Discharge planning issues Discharge home in next 24-48 hours if respiratory status remains stable DVT Ppx: SQ Lovenox Code status: FULL PCP: Puma Admission and Anticipated Discharge Date Admission Date: April 05, 2021 Subjective Doing well, said that she had a good night sleep after getting Requip, does not have any leg tremor or discomfort Used BiPAP machine throughout the night, Cough no shortness of breath no orthopnea Review of Systems Review of Systems: All systems reviewed & are unremarkable except as noted in Subjective Physical Exam Physical Exam: Physical exam: General: Elderly female, no acute distress HEENT: PERRLA, EOMI, Heart: Regular S1-S2, no carotid bruit, no JVD, no lower extremity edema Lungs: Managed with scattered wheeze Abdomen: Soft nontender, no organomegaly Extremity: No cyanosis, no deformity, Neuro: No focal neurological deficit normal speech, Psych: Alert awake oriented x3, Results & Data Results & Data ([facility]) Vital Signs (Past 12 Hours) Vital Signs Temp Pulse Pulse Resp BP Pulse Ox 04/08/21 07:44 36.7 C 60 16 161/83 H 96 04/08/21 03:07 79 18 99 (1) Hypertension Hypertension type: unspecified Qualified Code(s): I10 - Essential (primary) hypertension
[2021-04-09] MEDS: FLUTICASONE/VILANTEROL 200/25MCG 14 PUFFS/INHALER INH SCH (08:29)
[2021-04-09] MEDS: UMECLIDINIUM BROMIDE 62.5MCG/BLISTER 7 PUFFS/INHALER INH SCH (08:29)
[2021-04-09] MEDS: ENOXAPARIN INJ 40 MG/0.4 ML SYR SQ SCH (08:30)
[2021-04-09] MEDS: FLUTICASONE PROPIONATE NA SPR 16 GM BTL SCH (08:30)
[2021-04-09] MEDS: ROFLUMILAST 500 MCG TAB PO SCH (08:30)
[2021-04-09] MEDS: LOSARTAN POTASSIUM 25 MG TAB PO SCH (08:31)
[2021-04-09] MEDS: PANTOprazole 40 MG TAB PO SCH (08:31)
[2021-04-09] MEDS: predniSONE 20 MG TAB PO SCH (08:31)
[2021-04-09] MEDS: MAGNESIUM OXIDE 400 MG TAB PO SCH (08:31)
[2021-04-09] MEDS: ATORVASTATIN 40 MG TAB PO SCH (08:31)
[2021-04-09] MEDS: guaiFENesin 600 MG TABCR PO SCH (08:31)
[2021-04-09] MEDS: DOXYCYCLINE HYCLATE 100 MG CAP PO SCH (08:31)
[2021-04-09] MEDS: ASPIRIN 81 MG ECTAB PO SCH (08:31)
[2021-04-09] MEDS: CEROVITE ADV FORMULA TAB PO SCH (08:31)
[2021-04-09] MEDS: METOPROLOL SUCC 50MG EXT REL TAB PO SCH (08:31)
[2021-04-09] MEDS: DOCUSATE SODIUM 100 MG CAP PO SCH (08:33)
--- NOTE | 2021-04-09 13:16 | Discharge Summary ---
Date of Service April 09, 2021 Admission HPI Per Admitting Provider This is a 75yo F with a PMH of chronic hypoxic and hypercapnic respiratory failure on 3L NC O2 2/2 to COPD and obesity hypoventilation syndrome, chronic diastolic CHF, chronic sinus tachycardia, HTN, HLD, fibromyalgia, GERD, ambulatory dysfunction who presents to ED with hypoxia and altered mental status. This is patient's third admission over the past few months for acute on chronic respiratory failure. Most recently admitted from 03/22-03/27 for COPD exacerbation. Was discharged home on 5-day course of Augmentin. History of noncompliance with Trilogy ventilator machine. Follows with [facility] pulmonology. Case management readdressed need for increased home health assistance during previous admission. Palliative care service also waiting, recommending [facility] also be utilized for help coordinating services. Patient was initially found to be hypoxic at 45% not wearing home oxygen. Improved in ED to 96% on 2 L nasal cannula. Initial ABG with pH 7.4, PCO2 of 79 and HCO3 of 49. Continues to be intermittently confused. Is alert to person and location but not to time or situation. Endorses using Trilogy machine once at night since discharged home from hospital. States she is taking medication as prescribed. Continues to feel short of breath with cough-unclear whether or not this is baseline. Breathing has improved since breathing treatment in the ED. Unable to obtain full ROS due to patient's altered mental status. 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 Discharge Exam Constitutional cooperative and comfortable Eyes PERRL, conjunctivae normal, anicteric sclerae EOM intact bilaterally ENMT external ear and nose normal, oropharynx normal Neck normal visual inspection Respiratory normal respiratory effort, lungs clear to auscultation Cardiovascular Rate/Rhythm: regular rate Gastrointestinal (Abdomen) normal bowel sounds, soft, nontender, no hepatosplenomegaly Musculoskeletal Head/Neck/Chest: normocephalic and head atraumatic Extremities: + upper extremity abnormal to inspection (left arm in splint) Neurologic PERRL, EOMI, accommodation nl, no face palsy, no dysarthria CN's II-XI intact bilaterally Psychiatric A+Ox3, euthymic affect Discharge Data Allergies Allergy/AdvReac Type Severity Reaction Status Date / Time duloxetine [From Cymbalta] Allergy Mild Rash Verified 04/05/21 16:57 naproxen AdvReac Mild GI SYMPTOMS Verified 04/05/21 16:57 Consultations 04/05/21 17:56 ED Decision to Admit Stat 04/06/21 08:00 Consult Pulmonology Routine Ordered Studies 04/05/21 15:01 CT head/brain wo con Stat 04/05/21 18:36 CT angio chest PE protocol Stat 04/06/21 18:27 MR brain wo/w con Urgent Hospital Course (1) Acute hypercapnic respiratory failure: (2) Chronic respiratory failure with hypoxia and hypercapnia: (3) Acute metabolic encephalopathy: (4) COPD (chronic obstructive pulmonary disease): (5) Sinus tachycardia: (6) Chronic diastolic heart failure: (7) Hypertension: (8) Discharge planning issues: This is a 75yo F with a PMH of chronic hypoxic and hypercapnic respiratory failure on 3L NC O2 2/2 to COPD and obesity hypoventilation syndrome, chronic diastolic CHF, chronic sinus tachycardia, HTN, HLD, fibromyalgia, GERD, ambulatory dysfunction who presents to ED with hypoxia and altered mental status. Acute on chronic respiratory failure with hypoxia and hypercapnia Due to noncompliance with BiPAP/ Recurrent admission hypoxemic and hypercarbic respiratory failure and severe COPD, noncompliant with Triology machine HS Follows with [facility] pulmonary has not been following with any lung specialist for over a year Initial ABG with pH 7.4, pCO2 79, HCO3:49 Patient was placed on BiPAP, repeat VBG shows improvement of CO2 Patient is awake and alert, respiratory status back to baseline. After much counseling patient willing to try BiPAP machine at night as instructed Appreciate input from pulmonology, pt will be discharged on PO prednisone taper Importance of utilizing BiPAP at home explained patient is a more amenable to utilize the machine Restless leg syndrome. Started on Requip, patient reports improvement of symptoms Acute metabolic encephalopathy Difficulty with word finding All symptoms has resolved, mental status back to baseline In setting of hypercapnia -utilizing trilogy machine at home CT head without acute intracranial abnormality MRI of brain, no acute intracranial abnormality COPD exacerbation Required BiPAP, IV steroids, was started on doxycycline. Speech status improved to baseline, Appreciate input from pulmonology, Patient will be discharged on p.o. doxycycline for 5 more days Sinus tachycardia Secondary to hypoxemia Resolved, heart rate at baseline CTA chest negative for PE Congestive heart failure EF 40 to 45%, TTE 2020 Patient euvolemic Monitor Volume status Hypertension Continue losartan, Toprol CODE STATUS: Full code, Discharge planning issues Discharge home today DVT Ppx: SQ Lovenox Code status: FULL PCP: Puma Total Time Total Time Spent Total Time Spent (In Minutes): 35 mins Total Time Includes: Discharge Planning and Medication Reconciliation Discharge Plan Discharge Items Patient Disposition: Home - Home Health Services Reason For Visit: ACUTE ON CHRONIC RESP FAILURE, ACUTE METABOLIC ENC Discharge Diagnosis: Acute on chronic hypoxemic respiratory failure resolved Acute metabolic encephalopathy secondary to respiratory failure.: Resolved Noncompliance to home BiPAP 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 ) Diet: Heart Healthy Add Attending Provider Instructions: Please take all medications as instructed on discharge list below. It is recommended that you follow-up with your primary care physician within 1-2 weeks of hospital discharge to ensure you are still doing well. Please call if you have any questions or problems. You can reach a [facility] hospitalist on duty at [facility] 24 hours a day by calling [phone] [employer]tl Super[employer] Provider Instructions: Discharged on steroid taper dose: Prednisone 40 mg daily(take with food) for 3 days followed by 20 mg daily for 2 and then stop It is very important for you to use the trilogy/BiPAP machine at home especially at night and during nap time which will prevent you to develop carbon dioxide retention, respiratory failure/confusion and readmission to hospital. Please notify your family physician with any recurrence of shortness of breath ,cough or fever Pending Studies at Discharge: No Stand-Alone Forms: My [facility], Smoking Cessation Medications and DC Order Prescriptions: New doxycycline hyclate 100 mg Capsule 100 mg PO BID 5 Days Qty: 10 RF: 0 Incruse Ellipta 62.5 mcg/actuation Blister With Device 1 inh inhalation DAILY 30 Days Qty: 30 RF: 3 ropinirole [Requip] 0.25 mg tablet 0.25 mg PO HS 30 Days Qty: 30 RF: 3 prednisone 20 mg tablet 20 mg PO .ud Qty: 10 RF: 0 Continued Daliresp 250 mcg tablet 250 mcg PO QAM Qty: 90 RF: 1 (DME) Oxygen Home Liters Per Minute See Rx Instructions .ROUTE .MEDSUPPLY Qty: 1 RF: 0 tramadol 50 mg tablet 50 mg PO Q6H PRN (Reason: Pain) RF: 0 diclofenac sodium 1 % gel 1 ea TOP QID PRN (Reason: Pain) RF: 0 magnesium oxide 400 mg magnesium Capsule 400 mg PO QAM RF: 0 atorvastatin 40 mg Tablet 40 mg PO QAM RF: 0 losartan 25 mg Tablet 25 mg PO QAM RF: 0 albuterol sulfate [Ventolin HFA] 90 mcg/actuation Hfa Aerosol Inhaler 2 puff INHALATION QID PRN (Reason: Shortness Of Breath Or Wheezing) RF: 0 metoprolol succinate 50 mg tablet extended release 24 hr 50 mg PO QAM RF: 0 calcium carbonate [Tums E-X] 300 mg (750 mg) Tablet,Chewable 300 mg PO DAILY PRN (Reason: HEARTBURN/INDIGESTION) RF: 0 acetaminophen [Tylenol Extra Strength] 500 mg Tablet 1,000 mg PO Q6H PRN (Reason: Pain) RF: 0 fluticasone propionate 50 mcg/actuation [place],Suspension 2 spray INTRANASAL DAILY RF: 0 ipratropium-albuterol 0.5 mg-3 mg(2.5 mg base)/3 mL solution for nebulization 3 ml INHALATION Q4H PRN (Reason: COUGH OR WHEEZE) RF: 0 aspirin 81 mg Tablet,Delayed Release (Dr/Ec) 81 mg PO DAILY RF: 0 docusate sodium 100 mg Tablet 100 mg PO BID RF: 0 pantoprazole 40 mg Tablet,Delayed Release (Dr/Ec) 40 mg PO DAILY Qty: 30 RF: 0 polyethylene glycol 3350 [Miralax] 17 gram Powder In Packet 17 g PO DAILY PRN (Reason: constipation) Qty: 30 RF: 0 budesonide-formoterol 160-4.5 mcg/actuation HFA aerosol inhaler 2 puffs INH BID Qty: 10.2 RF: 1 Multivitamin Gummies 200 mcg Tablet,Chewable 2 tab PO DAILY RF: 0 Discontinued prednisone 10 mg tablet 10 mg PO DAILY RF: 0 Discharge Orders: Discharge Order (Routine); Ordered 04/09/21 Ordered By: Flora Benavides/Other Patient Handouts: Using Oxygen Safely Admission Data Admit Date/Time: 04/05/21 18:01 Attending Provider: Flora Taylor Admit Provider: Tip Vasquez Primary Care Provider: PCP,NO Other Providers: Alonso Ham Creighton ; Tip Vasquez ; David Wagner ; [facility] Other Interventions: Discharge Summary Assessment (RN) Last Done: 04/09/21 10:01
== END 2021-04-09 11:25 | disposition home health service (06) | DRG 189 ==
LOC: ED 14:25 → SUATTDRO 18:01 → 2S 18:01 → 3N 04-06 15:24

== ENCOUNTER 2021-05-27 07:52 | Inpatient (IN) ==
[2021-05-27] MEDS ORDERED: ONDANSETRON INJ 2 MG/ML 2 ML VIAL IV STA (08:15)
[2021-05-27 08:31] LABS: Basophils # (auto) 0.01 K/uL (0-0.2); Basophils % (auto) 0.1 %; Eosinophils # (auto) 0.21 K/uL (0-0.5); Eosinophils % (auto) 2.5 %; Hematocrit (blood only) 37.2 % (37-47); Hemoglobin 11.2 g/dL (12.0-16.0); Immature Granulocytes # (auto) 0.01 K/uL (0.00-0.02); Immature Granulocytes % (auto) 0.1 %; Lymphocytes # (auto) 2.43 K/uL (1.2-3.4); Lymphocytes % (auto) 29.3 %; Mean Corpuscular Hemoglobin 27.7 pg (25-34); Mean Corpuscular Hgb Conc 30.1 g/dL (32-36); Mean Corpuscular Volume 91.9 fL (80-100); Mean Platelet Volume 11.6 fL (7.4-10.4); Monocytes # (auto) 0.75 K/uL (0.11-0.59); Neutrophils # (auto) 4.88 K/uL (1.4-6.5); Platelet Count 204 K/uL (130-400); RDW Coefficient of Variation 14.1 % (11.5-14.5); RDW Standard Deviation 47.5 fL (36.4-46.3); Red Blood Count 4.05 M/uL (4.2-5.4); White Blood Count 8.29 K/uL (4.8-10.8)
[2021-05-27] MEDS ORDERED: MECLIZINE HCL 25 MG TAB PO STA (08:38)
--- NOTE | 2021-05-27 08:42 | Emergency Department Note ---
History of Present Illness General Chief complaint: Nausea Stated complaint: dizziness,nausea, SOB Time Seen by Provider: 05/27/21 07:57 Source: patient History of Present Illness Provider complaint: Dizziness Onset (ago): hour(s) Location: head Pain Consistency: + constant Quality: + other (Room is spinning) Exacerbated By: + other (Moving her head) Associated symptoms: + nausea/vomiting and + shortness of breath (Chronic and un changed); no chest pain, no cough, no fever/chills or no headaches This is a 75-year-old female who presents with dizziness upon waking up at 5:30 AM this morning. The patient describes it as a vertigo. It is worse when she moves her head. It is associated with vomiting. She has been nauseated for over a month and has had some epigastric abdominal pain. Her doctor gave her Zofran for this. She did throw up today with the vertigo. She denies any headaches, chest pain, cough or cold symptoms, diarrhea or black or bloody stools. She denies any urinary symptoms. She states her breathing is at baseline. She does have a history of COPD. She has not been able to walk since her vertigo started. Home Medications Medication Instructions Recorded Confirmed Type atorvastatin 40 mg tablet (Lipitor) 40 mg PO QAM 12/14/18 05/27/21 History losartan 25 mg tablet (Cozaar) 25 mg PO QAM 12/14/18 05/27/21 History magnesium oxide 400 mg PO QAM 02/13/19 05/27/21 History metoprolol succinate 50 mg 50 mg PO QAM 04/22/19 05/27/21 History tablet,extended release 24 hr (Toprol XL) Oxygen Home #1 ea 11/05/19 01/19/21 Rx tramadol 50 mg tablet (Ultram) 50 mg PO Q6H PRN 01/22/20 05/27/21 History roflumilast 250 mcg tablet 250 mcg PO QAM #90 tab 06/30/20 05/27/21 Rx (Daliresp) aspirin 81 mg tablet,delayed 81 mg PO QAM 01/19/21 05/27/21 History release (Aspirin Low Dose) multivitamin with minerals-folic 2 tab PO QAM 03/04/21 05/27/21 History acid 200 mcg chewable tablet (Multivitamin Gummies) ipratropium 0.5 mg-albuterol 3 mg 3 ml INHALATION Q4H PRN 03/22/21 05/27/21 History (2.5 mg base)/3 mL nebulization soln albuterol sulfate 90 mcg/actuation 2 puff INHALATION QID PRN #8.5 g 05/05/21 05/27/21 Rx aerosol inhaler (Ventolin HFA) budesonide-formoterol HFA 160 2 puff INH BID 05/27/21 05/27/21 History mcg-4.5 mcg/actuation aerosol inhaler (Symbicort) diclofenac sodium 1 % topical gel 4 g TOPICAL QID 05/27/21 05/27/21 History ondansetron 4 mg disintegrating 4 mg TRANSLINGUAL Q6H PRN 05/27/21 05/27/21 History tablet pantoprazole 40 mg tablet,delayed 40 mg PO QAM 05/27/21 05/27/21 History release (Protonix) ropinirole 0.25 mg tablet 0.25 mg PO HS 05/27/21 05/27/21 History Allergies Allergy/AdvReac Type Severity Reaction Status Date / Time duloxetine [From Cymbalta] Allergy Mild Rash Verified 05/27/21 08:48 naproxen AdvReac Mild GI SYMPTOMS Verified 05/27/21 08:48 Past Med/Surg History Medical History (Updated 05/27/21 @ 14:52 by Rayray Cheema MD) Aneurysm of infrarenal abdominal aorta Anxiety BCC (basal cell carcinoma of skin) on left side of face---"s/p MOHS surgery" Chronic diastolic heart failure Chronic respiratory failure with hypoxia and hypercapnia Chronic respiratory failure with hypoxia, on home O2 therapy OXYGEN 3L/MIN VIA NC COPD (chronic obstructive pulmonary disease) Degenerative disc disease Dyslipidemia Fibromyalgia GERD (gastroesophageal reflux disease) Gram-positive bacteremia Hypertension Obesity hypoventilation syndrome On home oxygen therapy 3L N/C at all times Osteoporosis Sinus tachycardia SOB (shortness of breath) on exertion Tremor of both hands Wrist fracture, left Surgical History History of bilateral cataract extraction History of carpal tunnel surgery of right wrist History of colonoscopy with polypectomy History of esophagogastroduodenoscopy (EGD) History of left breast biopsy benign History of mandibular surgery jaw fx History of repair of left rotator cuff History of repair of right rotator cuff History of tooth extraction S/P Mohs surgery for basal cell carcinoma Status post appendectomy Status post excision of lipoma removed off neck x2 Status post hysterectomy Status post repair of ventral hernia Family History Grandfather (Maternal) Family hx of colon cancer Father FH: kidney cancer Family/Other Family history of diabetes mellitus nephew Other Kidney disease Lung disease No family history of adverse response to anesthesia Social History Smoking Status: Former smoker Tobacco Type: Cigarettes Cigarettes Per Day: unsure when she quit; Second Hand Exposure: No; Hx Alcohol Use: No Hx Substance Use: No Preferred Language: Slovak Communication Ability: Effective Mine Shifter Required: No Beliefs That Will Affect Care: None marital status: / Current Living Situation: Alone current occupational status: retired How many Children do You have: 3 Feels Safe at Home: Yes Assistive Devices: Oxygen - Continuous Review of Systems See HPI for pertinent positives & negatives. and A total of 10 systems reviewed and were otherwise negative Physical Exam Vital Signs Vital Signs - 24 hr 05/27/21 07:57 05/27/21 08:00 05/27/21 08:01 Temperature 36.6 C Temperature Source Oral Pulse Rate 75 76 89 Pulse Rate from SpO2 Sensor 76 76 Respiratory Rate 23 21 24 Respiratory Effort / Characteristics Non-Labored Spontaneous Respiratory Depth Normal Respiratory Pattern Regular Blood Pressure 176/78 H 172/68 H 176/78 H Blood Pressure Mean 110 102 110 Pulse Oximetry 99 98 96 Oxygen Delivery Method Nasal Cannula Oxygen Flow Rate 2 Sepsis Recent Fever Within 48 Hours No Sepsis New/Unexplained Change in Mental Status N/A Sepsis Action Taken by Nursing No Action Required 05/27/21 08:30 05/27/21 09:00 05/27/21 09:38 Temperature Temperature Source Pulse Rate 72 72 86 Pulse Rate from SpO2 Sensor 73 Respiratory Rate 19 19 17 Respiratory Effort / Characteristics Respiratory Depth Respiratory Pattern Blood Pressure 149/66 H 132/60 Blood Pressure Mean 93 84 Pulse Oximetry 99 Oxygen Delivery Method Oxygen Flow Rate Sepsis Recent Fever Within 48 Hours Sepsis New/Unexplained Change in Mental Status Sepsis Action Taken by Nursing 05/27/21 10:00 05/27/21 10:31 05/27/21 11:00 Temperature Temperature Source Pulse Rate 86 84 87 Pulse Rate from SpO2 Sensor 85 85 Respiratory Rate 20 23 21 Respiratory Effort / Characteristics Respiratory Depth Respiratory Pattern Blood Pressure 141/67 H 143/67 H 95/55 L Blood Pressure Mean 91 92 68 Pulse Oximetry 99 97 Oxygen Delivery Method Oxygen Flow Rate Sepsis Recent Fever Within 48 Hours Sepsis New/Unexplained Change in Mental Status Sepsis Action Taken by Nursing 05/27/21 11:31 05/27/21 12:00 05/27/21 12:30 Temperature Temperature Source Pulse Rate 81 88 81 Pulse Rate from SpO2 Sensor 83 88 Respiratory Rate 21 20 19 Respiratory Effort / Characteristics Respiratory Depth Respiratory Pattern Blood Pressure 119/68 149/49 H 145/64 H Blood Pressure Mean 85 82 91 Pulse Oximetry 98 99 Oxygen Delivery Method Oxygen Flow Rate Sepsis Recent Fever Within 48 Hours Sepsis New/Unexplained Change in Mental Status Sepsis Action Taken by Nursing Constitutional: Vital signs reviewed. Eyes: Pupils are equal round reactive to light. Conjunctiva are noninjected. ENT: Pharynx is clear without erythema or exudate. Mucous membranes are moist. Neck supple without meningeal signs. Respiratory: Scattered wheezing bilaterally. Breath sounds are equal bilaterally. Cardiovascular: Regular rate and rhythm. No rubs or gallops. GI: Soft, nondistended with mild epigastric tenderness. No guarding. Bowel sounds are present. Musculoskeletal: No peripheral edema. No lower extremity tenderness. Integumentary: No cyanosis. or jaundice. Neurologic: The patient is awake and alert. Cranial nerves II-XII are intact. Motor is 5 out of 5 all extremities. Sensation is intact to light touch all extremities. Normal speech. No pronator drift. No limb ataxia. No dysdiadochokinesis. Right lateral nystagmus. No rotatory or vertical nystagmus. Psychiatric: Normal affect. Not anxious appearing. Course Administered Medications Discontinued Medications Gadobutrol (Gadobutrol 65ml Vial) 7 ml IV ONCE ONE Stop: 05/27/21 13:24 Last Admin: 05/27/21 13:23 Dose: 7 ml Documented by: [id number] Promethazine HCl (Phenergan) 12.5 mg in 50.5 mls @ 202 mls/hr IV NOW STA Stop: 05/27/21 09:49 Last Infusion: 05/27/21 10:05 Dose: 0 mls/hr Documented by: [id number] Admin: 05/27/21 09:46 Dose: 202 mls/hr Documented by: [id number] Ioversol (Optiray 320 125ml) 120 ml IV ONCE ONE Stop: 05/27/21 09:21 Last Admin: 05/27/21 09:20 Dose: 120 ml Documented by: [id number] Meclizine HCl (Meclizine Hcl 25 Mg Tab) 25 mg PO NOW STA Stop: 05/27/21 08:39 Last Admin: 05/27/21 09:06 Dose: 25 mg Documented by: [id number] Ondansetron HCl (Ondansetron Inj 2 Mg/Ml 2 Ml Vial) 4 mg IV NOW STA Stop: 05/27/21 08:16 Last Admin: 05/27/21 08:32 Dose: 4 mg Documented by: [id number] Medical Decision Making Differential Diagnosis BPPV, CVA, intracranial mass, intracranial hemorrhage, labyrinthitis, metabolic derangement Medical Records Attestation: I reviewed the patient's medical records. I did perform a limited focused review of portions of the patient's old chart on the electronic medical record. The patient was admitted in March for COPD exacerbation. Home Medications Current Medication List: was personally reviewed by me Laboratory Data Attestation: I reviewed the patient's lab results. Result diagrams: 05/27/21 08:19 05/27/21 08:19 Lab Results 05/27/21 05/27/21 05/27/21 Range/Units 08:19 08:19 08:19 WBC 8.29 (4.8-10.8) K/uL RBC 4.05 L (4.2-5.4) M/uL Hgb 11.2 L (12.0-16.0) g/dL Hct 37.2 (37-47) % MCV 91.9 (80-100) fL MCH 27.7 (25-34) pg MCHC 30.1 L (32-36) g/dL RDW Std Deviation 47.5 H (36.4-46.3) fL RDW Coeff of Reg 14.1 (11.5-14.5) % Plt Count 204 (130-400) K/uL MPV 11.6 H (7.4-10.4) fL Immature Gran % (Auto) 0.1 % Neut % (Auto) 59.0 % Lymph % (Auto) 29.3 % Ramsey % (Auto) 9.0 % Eos % (Auto) 2.5 % Baso % (Auto) 0.1 % Neut # (Auto) 4.88 (1.4-6.5) K/uL Lymph # (Auto) 2.43 (1.2-3.4) K/uL Ramsey # (Auto) 0.75 H (0.11-0.59) K/uL Eos # (Auto) 0.21 (0-0.5) K/uL Baso # (Auto) 0.01 (0-0.2) K/uL Immature Gran # (Auto) 0.01 (0.00-0.02) K/uL PT 10.4 (9.0-12.0) Seconds INR 1.0 (0.9-1.1) APTT 23.0 (21.0-31.0) Seconds PTT Ratio 0.9 Sodium 141 (136-145) mmol/L Potassium 3.8 (3.5-5.1) mmol/L Chloride 98 (98-107) mmol/L Carbon Dioxide 40 H (21-32) mmol/L Anion Gap 3.0 (3-11) BUN 16 (7-18) mg/dl Creatinine 0.56 L (0.6-1.2) mg/dl Est Cr Clr Drug Dosing 74.0 ml/min Est GFR ( Amer) 104.2 ml/min Est GFR (Non-Af Amer) 89.9 ml/min BUN/Creatinine Ratio 28.8 H (10-20) Glucose 116 H (70-99) mg/dl Calcium 9.6 (8.5-10.1) mg/dl Magnesium (1.8-2.4) mg/dl Total Bilirubin 0.7 (0.2-1) mg/dl AST 10 L (15-37) U/L ALT 14 (12-78) U/L Alkaline Phosphatase 71 (45-117) U/L Troponin I (0-0.045) ng/ml Total Protein 6.8 (6.4-8.2) gm/dl Albumin 3.4 (3.4-5.0) gm/dl Globulin 3.4 (2.5-4.0) gm/dl Albumin/Globulin Ratio 1.0 (0.9-2) Lipase 66 L (73-393) U/L Urine Color Urine Appearance (Clear) Urine pH (4.5-7.5) Ur Specific [place] (1.000-1.030) Urine Protein (Negative) Urine Glucose (UA) (Negative) Urine Ketones (Negative) Urine Blood (Negative) Urine Nitrite (Negative) Urine Bilirubin (Negative) Urine Urobilinogen (Negative) Ur Leukocyte Esterase (Negative) Urine WBC (Auto) (0-5) /hpf Urine RBC (Auto) (0-4) /hpf U Hyaline Cast (Auto) (0-5) /lpf U Epithel Cells (Auto) (0-5) /lpf Urine Bacteria (Auto) (Negative) COVID-19 Eval Order SARS-CoV-2 (PCR) (Negative) 05/27/21 05/27/21 05/27/21 Range/Units 08:19 10:50 11:25 WBC (4.8-10.8) K/uL RBC (4.2-5.4) M/uL Hgb (12.0-16.0) g/dL Hct (37-47) % MCV (80-100) fL MCH (25-34) pg MCHC (32-36) g/dL RDW Std Deviation (36.4-46.3) fL RDW Coeff of Reg (11.5-14.5) % Plt Count (130-400) K/uL MPV (7.4-10.4) fL Immature Gran % (Auto) % Neut % (Auto) % Lymph % (Auto) % Ramsey % (Auto) % Eos % (Auto) % Baso % (Auto) % Neut # (Auto) (1.4-6.5) K/uL Lymph # (Auto) (1.2-3.4) K/uL Ramsey # (Auto) (0.11-0.59) K/uL Eos # (Auto) (0-0.5) K/uL Baso # (Auto) (0-0.2) K/uL Immature Gran # (Auto) (0.00-0.02) K/uL PT (9.0-12.0) Seconds INR (0.9-1.1) APTT (21.0-31.0) Seconds PTT Ratio Sodium (136-145) mmol/L Potassium (3.5-5.1) mmol/L Chloride (98-107) mmol/L Carbon Dioxide (21-32) mmol/L Anion Gap (3-11) BUN (7-18) mg/dl Creatinine (0.6-1.2) mg/dl Est Cr Clr Drug Dosing ml/min Est GFR ( Amer) ml/min Est GFR (Non-Af Amer) ml/min BUN/Creatinine Ratio (10-20) Glucose (70-99) mg/dl Calcium (8.5-10.1) mg/dl Magnesium 1.9 (1.8-2.4) mg/dl Total Bilirubin (0.2-1) mg/dl AST (15-37) U/L ALT (12-78) U/L Alkaline Phosphatase (45-117) U/L Troponin I < 0.015 (0-0.045) ng/ml Total Protein (6.4-8.2) gm/dl Albumin (3.4-5.0) gm/dl Globulin (2.5-4.0) gm/dl Albumin/Globulin Ratio (0.9-2) Lipase (73-393) U/L Urine Color Dark Yellow Urine Appearance Cloudy A (Clear) Urine pH 6.5 (4.5-7.5) Ur Specific [place] > 1.045 H (1.000-1.030) Urine Protein Negative (Negative) Urine Glucose (UA) Negative (Negative) Urine Ketones Trace H (Negative) Urine Blood Negative (Negative) Urine Nitrite Negative (Negative) Urine Bilirubin Negative (Negative) Urine Urobilinogen Negative (Negative) Ur Leukocyte Esterase Trace H (Negative) Urine WBC (Auto) 5-10 H (0-5) /hpf Urine RBC (Auto) 0-4 (0-4) /hpf U Hyaline Cast (Auto) 5-10 H (0-5) /lpf U Epithel Cells (Auto) >30 H (0-5) /lpf Urine Bacteria (Auto) Negative (Negative) COVID-19 Eval Order Covid19 at [facility] SARS-CoV-2 (PCR) (Negative) 05/27/21 Range/Units 11:25 WBC (4.8-10.8) K/uL RBC (4.2-5.4) M/uL Hgb (12.0-16.0) g/dL Hct (37-47) % MCV (80-100) fL MCH (25-34) pg MCHC (32-36) g/dL RDW Std Deviation (36.4-46.3) fL RDW Coeff of Erg (11.5-14.5) % Plt Count (130-400) K/uL MPV (7.4-10.4) fL Immature Gran % (Auto) % Neut % (Auto) % Lymph % (Auto) % Ramsey % (Auto) % Eos % (Auto) % Baso % (Auto) % Neut # (Auto) (1.4-6.5) K/uL Lymph # (Auto) (1.2-3.4) K/uL Ramsey # (Auto) (0.11-0.59) K/uL Eos # (Auto) (0-0.5) K/uL Baso # (Auto) (0-0.2) K/uL Immature Gran # (Auto) (0.00-0.02) K/uL PT (9.0-12.0) Seconds INR (0.9-1.1) APTT (21.0-31.0) Seconds PTT Ratio Sodium (136-145) mmol/L Potassium (3.5-5.1) mmol/L Chloride (98-107) mmol/L Carbon Dioxide (21-32) mmol/L Anion Gap (3-11) BUN (7-18) mg/dl Creatinine (0.6-1.2) mg/dl Est Cr Clr Drug Dosing ml/min Est GFR ( Amer) ml/min Est GFR (Non-Af Amer) ml/min BUN/Creatinine Ratio (10-20) Glucose (70-99) mg/dl Calcium (8.5-10.1) mg/dl Magnesium (1.8-2.4) mg/dl Total Bilirubin (0.2-1) mg/dl AST (15-37) U/L ALT (12-78) U/L Alkaline Phosphatase (45-117) U/L Troponin I (0-0.045) ng/ml Total Protein (6.4-8.2) gm/dl Albumin (3.4-5.0) gm/dl Globulin (2.5-4.0) gm/dl Albumin/Globulin Ratio (0.9-2) Lipase (73-393) U/L Urine Color Urine Appearance (Clear) Urine pH (4.5-7.5) Ur Specific [place] (1.000-1.030) Urine Protein (Negative) Urine Glucose (UA) (Negative) Urine Ketones (Negative) Urine Blood (Negative) Urine Nitrite (Negative) Urine Bilirubin (Negative) Urine Urobilinogen (Negative) Ur Leukocyte Esterase (Negative) Urine WBC (Auto) (0-5) /hpf Urine RBC (Auto) (0-4) /hpf U Hyaline Cast (Auto) (0-5) /lpf U Epithel Cells (Auto) (0-5) /lpf Urine Bacteria (Auto) (Negative) COVID-19 Eval Order SARS-CoV-2 (PCR) NEGATIVE (Negative) Imaging Data Radiologist's Impression: Head CT 05/27/21 08:[address] OF THE BRAIN; CT ANGIOGRAM OF THE BRAIN; CT ANGIOGRAM OF THE NECK CLINICAL HISTORY: Strokelike symptoms. COMPARISON STUDY: CT of the brain dated 04/05/2021. CT of the neck dated 04/03/2019. TECHNIQUE: Unenhanced axial CT scan of the brain is performed. Subsequently, following the IV administration of 120 of Optiray 320, CT angiogram of the head and neck was performed from the aortic arch to the vertex. Images are reviewed in the axial, sagittal, and coronal planes. 3-D MIPS images are created and assessed. IV contrast was administered without complication. All measurements were calculated based on NASCET criteria. A dose lowering technique was utilized adhering to the principles of ALARA. The examinations are modestly degraded by motion artifact. FINDINGS: Brain parenchyma: There is age-related involutional change noting mild subcortical and periventricular microangiopathic disease. There is no hemorrhage, mass effect, or evidence of acute territorial ischemia by CT criteria. There is no evidence of enhancing mass lesion on the angiogram phase images. The ventricles, sulci, and cisterns are prominent secondary to involutional change. Cote-white matter differentiation is preserved. No extra- axial fluid collection is seen. Mineralization is noted in the basal ganglia. Thoracic aorta: There is atherosclerotic calcification of the thoracic aorta. Visualized portions of the thoracic aorta are normal in caliber. The aortic arch demonstrates standard 3-vessel anatomy. Right carotid arterial system: The right common carotid artery is widely patent, as are the right internal and external carotid arteries. Calcified plaque is noted in the carotid bulb. Left carotid arterial system: The left common carotid artery is widely patent, as are the left internal and external carotid arteries. Calcified plaque is seen in the carotid bulb. There is tortuosity of the left internal carotid artery. There is a short segment dissection of the proximal left internal carotid art renée. This originates just above the bifurcation, and is best seen on image #214. This extends approximately 1 cm in craniocaudal length. Vertebral arteries: The vertebral arteries are widely patent bilaterally noting a right-sided dominance. Subclavian arteries: Atherosclerotic plaque causes less than 50% stenosis of the left subclavian artery below the thoracic outlet. The subclavian arteries are otherwise widely patent bilaterally. Intracranial vasculature: There is atherosclerotic calcification of the cavernous carotid and vertebral arteries. There is a large right posterior communicating artery. The internal carotid arteries are patent at the skull base, as are the anterior and middle cerebral arteries bilaterally. The vertebrobasilar system and posterior cerebral arteries are widely patent. The right vertebral artery is dominant. There is mild ectasia of the supraclinoid right internal carotid artery. No discrete aneurysm is seen. There is no high- grade stenosis or Focal vessel cut off seen throughout the intracranial circulation. Jugular veins: Patent bilaterally. Dural sinuses: Patent. Lung apices: Partially visualized upper lobe lung parenchyma appears clear. Soft tissues: The visualized pharyngeal soft tissues are normal in appearance noting angiographic phase technique. The oropharyngeal airway appears widely patent. The salivary and thyroid glands are normal in appearance. No cervical lymphadenopathy is seen. Skeletal structures: The skeletal structures are osteopenic. The calvarium appears intact. The cervical spine is maintained noting multilevel spondylosis. No lytic or blastic lesion is seen. Orbits: The bony orbits are intact. Orbital contents are normal as visualized noting bilateral ocular lens implants. Sinuses and mastoids: The paranasal sinuses are clear. The mastoid air cells are well pneumatized. IMPRESSION: 1. There is no hemorrhage, mass effect, or evidence of acute territorial ischemia by CT criteria. 2. Unremarkable CT angiogram of the brain. 3. 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 This extends approximately 1 cm in craniocaudal length and is of indeterminant chronicity. 4. There is no evidence of hemodynamically significant stenosis within the carotid or vertebral arteries. ACT 112: Negative or not required by law. Electronically signed by: Nate Rabago M.D. 05/27/2021 9:57 AM Head CTA 05/27/21 08:[address] OF THE BRAIN; CT ANGIOGRAM OF THE BRAIN; CT ANGIOGRAM OF THE NECK CLINICAL HISTORY: Strokelike symptoms. COMPARISON STUDY: CT of the brain dated 04/05/2021. CT of the neck dated 04/03/20. TECHNIQUE: Unenhanced axial CT scan of the brain is performed. Subsequently, following the IV administration of 120 of Optiray 320, CT angiogram of the head and neck was performed from the aortic arch to the vertex. Images are reviewed in the axial, sagittal, and coronal planes. 3-D MIPS images are created and assessed. IV contrast was administered without complication. All measurements were calculated based on NASCET criteria. A dose lowering technique was utilize d adhering to the principles of ALARA. The examinations are modestly degraded by motion artifact. FINDINGS: Brain parenchyma: There is age-related involutional change noting mild subcortical and periventricular microangiopathic disease. There is no hemorrhage, mass effect, or evidence of acute territorial ischemia by CT criteria. There is no evidence of enhancing mass lesion on the angiogram phase images. The ventricles, sulci, and cisterns are prominent secondary to involutional change. Cote-white matter differentiation is preserved. No extra- axial fluid collection is seen. Mineralization is noted in the basal ganglia. Thoracic aorta: There is atherosclerotic calcification of the thoracic aorta. Visualized portions of the thoracic aorta are normal in caliber. The aortic arch demonstrates standard 3-vessel anatomy. Right carotid arterial system: The right common carotid artery is widely patent, as are the right internal and external carotid arteries. Calcified plaque is noted in the carotid bulb. Left carotid arterial system: The left common carotid artery is widely patent, as are the left internal and external carotid arteries. Calcified plaque is seen in the carotid bulb. There is tortuosity of the left internal carotid artery. 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 This originates just above the bifurcation, and is best seen on image #214. This extends approximately 1 cm in craniocaudal length. Vertebral arteries: The vertebral arteries are widely patent bilaterally noting a right-sided dominance. Subclavian arteries: Atherosclerotic plaque causes less than 50% stenosis of the left subclavian artery below the thoracic outlet. The subclavian arteries are otherwise widely patent bilaterally. Intracranial vasculature: There is atherosclerotic calcification of the cavernous carotid and vertebral arteries. There is a large right posterior communicating artery. The internal carotid arteries are patent at the skull base , as are the anterior and middle cerebral arteries bilaterally. The vertebrobasilar system and posterior cerebral arteries are widely patent. The right vertebral artery is dominant. There is mild ectasia of the supraclinoid right internal carotid artery. No discrete aneurysm is seen. There is no high- grade stenosis or Focal vessel cut off seen throughout the intracranial circulation. Jugular veins: Patent bilaterally. Dural sinuses: Patent. Lung apices: Partially visualized upper lobe lung parenchyma appears clear. Soft tissues: The visualized pharyngeal soft tissues are normal in appearance noting angiographic phase technique. The oropharyngeal airway appears widely patent. The salivary and thyroid glands are normal in appearance. No cervical lymphadenopathy is seen. Skeletal structures: The skeletal structures are osteopenic. The calvarium appears intact. The cervical spine is maintained noting multilevel spondylosis. No lytic or blastic lesion is seen. Orbits: The bony orbits are intact. Orbital contents are normal as visualized noting bilateral ocular lens implants. Sinuses and mastoids: The paranasal sinuses are clear. The mastoid air cells are well pneumatized. IMPRESSION: 1. There is no hemorrhage, mass effect, or evidence of acute territorial ischemia by CT criteria. 2. Unremarkable CT angiogram of the brain. 3. 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 This extends approxi mately 1 cm in craniocaudal length and is of indeterminant chronicity. 4. There is no evidence of hemodynamically significant stenosis within the carotid or vertebral arteries. ACT 112: Negative or not required by law. Electronically signed by: Nate Rabago M.D. 05/27/2021 9:57 AM Neck CTA 05/27/21 08:[address] OF THE BRAIN; CT ANGIOGRAM OF THE BRAIN; CT ANGIOGRAM OF THE NECK CLINICAL HISTORY: Strokelike symptoms. COMPARISON STUDY: CT of the brain dated 04/05/2021. CT of the neck dated 04/03/2019. TECHNIQUE: Unenhanced axial CT scan of the brain is performed. Subsequently, following the IV administration of 120 of Optiray 320, CT angiogram of the head and neck was performed from the aortic arch to the vertex. Images are reviewed in the axial, sagittal, and coronal planes. 3-D MIPS images are created and a ssessed. IV contrast was administered without complication. All measurements were calculated based on NASCET criteria. A dose lowering technique was utilized adhering to the principles of ALARA. The examinations are modestly degraded by motion artifact. FINDINGS: Brain parenchyma: There is age-related involutional change noting mild subcortical and periventricular microangiopathic disease. There is no hemorrhage, mass effect, or evidence of acute territorial ischemia by CT criteria. There is no evidence of enhancing mass lesion on the angiogram phase images. The ventricles, sulci, and cisterns are prominent secondary to involutional change. Cote-white matter differentiation is preserved. No extra- axial fluid collection is seen. Mineralization is noted in the basal ganglia. Thoracic aorta: There is atherosclerotic calcification of the thoracic aorta. Visualized portions of the thoracic aorta are normal in caliber. The aortic arch demonstrates standard 3-vessel anatomy. Right carotid arterial system: The right common carotid artery is widely patent, as are the right internal and external carotid arteries. Calcified plaque is noted in the carotid bulb. Left carotid arterial system: The left common carotid artery is widely patent, as are the left internal and external carotid arteries. Calcified plaque is seen in the carotid bulb. There is tortuosity of the left internal carotid artery. 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 This originates just above the bifurcation, and is best seen on image #214. This extends approximately 1 cm in craniocaudal length. Vertebral arteries: The vertebral arteries are widely patent bilaterally noting a right-sided dominance. Subclavian arteries: Atherosclerotic plaque causes less than 50% stenosis of the left subclavian artery below the thoracic outlet. The subclavian arteries are otherwise widely patent bilaterally. Intracranial vasculature: There is atherosclerotic calcification of the cavernous carotid and vertebral arteries. There is a large right posterior communicating artery. The internal carotid arteries are patent at the skull base, as are the anterior and middle cerebral arteries bilaterally. The vertebrobasilar system and posterior cerebral arteries are widely patent. The right vertebral artery is dominant. There is mild ectasia of the supraclinoid right internal carotid artery. No discrete aneurysm is seen. There is no high- grade stenosis or Focal vessel cut off seen throughout the intracranial circulation. Jugular veins: Patent bilaterally. Dural sinuses: Patent. Lung apices: Partially visualized upper lobe lung parenchyma appears clear. Soft tissues: The visualized pharyngeal soft tissues are normal in appearance noting angiographic phase technique. The oropharyngeal airway appears widely patent. The salivary and thyroid glands are normal in appearance. No cervical lymphadenopathy is seen. Skeletal structures: The skeletal structures are osteopenic. The calvarium appears intact. The cervical spine is maintained noting multilevel spondylosis. No lytic or blastic lesion is seen. Orbits: The bony orbits are intact. Orbital contents are normal as visualized noting bilateral ocular lens implants. Sinuses and mastoids: The paranasal sinuses are clear. The mastoid air cells are well pneumatized. IMPRESSION: 1. There is no hemorrhage, mass effect, or evidence of acute territorial ischemia by CT criteria. 2. Unremarkable CT angiogram of the brain. 3. 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 This extends approximately 1 cm in craniocaudal length and is of indeterminant chronicity. 4. There is no evidence of hemodynamically significant stenosis within the carotid or vertebral arteries. ACT 112: Negative or not required by law. Electronically signed by: Nate Rabago M.D. 05/27/2021 9:57 AM Abdomen/Pelvis CT 05/27/21 08:[address] WITHOUT CONTRAST CT DOSE: 2357.85 mGy.cm HISTORY: Acute generalized abdominal pain with nausea abd pain TECHNIQUE: Multiaxial CT images of the abdomen and pelvis were performed without contrast. A dose lowering technique was utilized adhering to the principles of ALARA. COMPARISON STUDY: CT abdomen and pelvis 03/23/2021 FINDINGS: Mild bibasilar mucous plugging with atelectasis/scarring. No pneumatosis or pneumoperitoneum. Coronary artery calcifications with mild cardiomegaly. The unenhanced spleen is unremarkable with a few scattered punctate parenchymal calcifications. Unremarkable liver and adrenal glands. Mildly contracted gallbladder with cholelithiasis in the gallbladder neck. No biliary ductal dilation. Mildly atrophic pancreas. 3 mm nonobstructing calculus of the interpolar right kidney. There are 2 calculi of the left kidney which measure up to 3 mm. Mild nonspecific bilateral perinephric stranding. Exophytic 8 mm hypodensity of the inferior pole left kidney is suggestive of a cyst. 6 mm hypodensity of the inferior pole right kidney is too small to characterize. No ureteral calculi or hydronephrosis. Pelvic floor relaxation with small cystocele. Hysterectomy. Unremarkable urinary bladder. Extensive calcified plaque the abdominal aorta with 3.2 cm infrarenal aneurysm. No adenopathy. Duodenal diverticulum. No bowel obstruction or bowel wall thickening. Nonvisualization of the appendix. Colonic diverticulosis without CT evidence of acute diverticulitis. Unremarkable soft tissues. Degenerative changes of the spine, pelvis and hips. Demineralized appearance of the bones. No acute fracture. IMPRESSION: 1. No bowel obstruction or bowel wall thickening. 2. Colonic diverticulosis without acute diverticulitis. 3. Nonobstructing bilateral nephrolithiasis. 4. Cholelithiasis. 5. Extensive atherosclerosis of the abdominal aorta with 3.2 cm infrarenal abdominal aortic aneurysm. 6. Additional findings as above. ACT 112: Negative or not required by law. The above report was generated using voice recognition software. It may contain grammatical, syntax or spelling errors. Electronically signed by: Zach Perez M.D. 05/27/2021 10:04 AM Brain MRI 05/27/21 11:37 Brain MRI WITH AND WITHOUT CONTRAST HISTORY: vertigo TECHNIQUE: Multiplanar multisequence MRI of the brain was performed both before and after the intravenous administration of contrast. COMPARISON STUDY: Brain MRI 04/06/2021. FINDINGS: There is no mass, hematoma, midline shift, or acute infarct. The paranasal sinuses are clear. The mastoid air cells are clear. The ventricles and sulci demonstrate mild age-related involutional changes. Scattered foci of T2 hyperintensity seen within the periventricular and subcortical white matter are nonspecific but suggestive of moderate microvascular ischemic changes. The major vascular flow voids at the skull base are well-maintained. No abnormal enhancement. IMPRESSION: No significant change compared to the prior study. No acute intracranial abnormality. ACT 112: Negative or not required by law. Electronically signed by: Brayan Estrada M.D. 05/27/2021 2:00 PM ECG Data Attestation: I personally reviewed and interpreted this ECG as follows: Indication: + other (Dizziness) Rate (beats per minute): 77 Rhythm: + normal sinus ECG [place]: + Normal ECG ST segments: no ST elevation ECG Findings: no PVCs MDM Narrative I did evaluate the patient as noted above. She is presenting with the acute onset of vertigo since this morning upon waking up. This potentially can be a posterior stroke syndrome but she is not a candidate for IV TPA as the patient woke up with her symptoms. Her last known well was yesterday. IV access was established. She was treated with Zofran IV. I did place an order for continuous cardiac monitoring. The monitor showed normal sinus rhythm at a rate of 80 bpm. I did order and personally review the patient's 12-lead EKG as described above. She has no acute ischemic changes. I did order a urine analysis. She has some leukocyte esterase and WBCs but she has greater than 30 epithelial cells. I did order and review the patient's blood work as noted in the electronic medical record. CBC does not demonstrate leukocytosis or thrombo cytopenia. She does have a mild anemia with a hemoglobin 11.2. Electrolytes are unremarkable. LFTs and lipase are unremarkable. Troponin is negative. I did order a CT of the head, abdomen and pelvis and CT angiogram of the head neck. I did review the images myself as well as the radiology report as described above. There is no evidence of acute stroke. She has no evidence of acute intra-abdominal pathology. She does have cholelithiasis as well as an infrarenal abdominal aortic aneurysm. CT angiogram demonstrates a focal area of dissection in the left internal carotid artery. This is of indeterminate chronicity. On reassessment the patient is still nauseous and dizzy. She is unable to walk. She was given Phenergan IV. We did recommend hospitalization for further care and evaluation and MRI of the brain. An MR was ordered and was negative for acute pathology. The case was discussed with the hospitalist and case work aide. Impression & Plan Vertigo, COPD (chronic obstructive pulmonary disease), Cholelithiasis, Abdominal pain, chronic, epigastric, Abdominal aortic aneurysm Discharge Plan Visit Data Chief Complaint: Nausea Stated Complaint: dizziness,nausea, SOB ED Provider: Rayray Cheema ED Midlevel Provider: Rayray Edouard Discharge Problem: Vertigo, COPD (chronic obstructive pulmonary disease), Cholelithiasis, Abdominal pain, chronic, epigastric, Abdominal aortic aneurysm Patient Disposition: Being Evaluated by Hospitalist Forms Stand Alone Forms: [facility] Prescriptions Prescriptions: No Action Daliresp 250 mcg tablet 250 mcg PO QAM Qty: 90 RF: 1 (DME) Oxygen Home Liters Per Minute See Rx Instructions .ROUTE .MEDSUPPLY Qty: 1 RF: 0 tramadol [Ultram] 50 mg tablet 50 mg PO Q6H PRN (Reason: Pain) RF: 0 albuterol sulfate [Ventolin HFA] 90 mcg/actuation HFA aerosol inhaler 2 puff INHALATION QID PRN (Reason: Shortness Of Breath Or Wheezing) Qty: 8.5 RF: 5 magnesium oxide 400 mg magnesium Capsule 400 mg PO QAM RF: 0 atorvastatin [Lipitor] 40 mg Tablet 40 mg PO QAM RF: 0 losartan [Cozaar] 25 mg Tablet 25 mg PO QAM RF: 0 metoprolol succinate [Toprol XL] 50 mg tablet extended release 24 hr 50 mg PO QAM RF: 0 ipratropium-albuterol 0.5 mg-3 mg(2.5 mg base)/3 mL solution for nebulization 3 ml INHALATION Q4H PRN (Reason: COUGH OR WHEEZE) RF: 0 aspirin [Aspirin Low Dose] 81 mg Tablet,Delayed Release (Dr/Ec) 81 mg PO QAM RF: 0 Multivitamin Gummies 200 mcg Tablet,Chewable 2 tab PO QAM RF: 0 ropinirole 0.25 mg tablet 0.25 mg PO HS RF: 0 pantoprazole [Protonix] 40 mg tablet,delayed release (DR/EC) 40 mg PO QAM RF: 0 budesonide-formoterol [Symbicort] 160-4.5 mcg/actuation HFA aerosol inhaler 2 puff INH BID RF: 0 ondansetron 4 mg tablet,disintegrating 4 mg translingual Q6H PRN (Reason: Nausea And Vomiting) RF: 0 diclofenac sodium 1 % Gel 4 g TOPICAL QID RF: 0 Referrals Referrals: PCP,NO [Physician] -
[2021-05-27 08:49] LABS: Albumin Level 3.4 gm/dl (3.4-5.0); BUN Creatinine Ratio 28.8 (10-20); Calcium 9.6 mg/dl (8.5-10.1); Est GFR (African American) 104.2 ml/min; Est GFR (Non-African American) 89.9 ml/min; Potassium 3.8 mmol/L (3.5-5.1)
--- NOTE | 2021-05-27 08:49 | Emergency Department Note ---
ED Visit Note This patient was seen in concert with Dr. Cheema and we discussed and agreed upon the history, physical, assessment, and plan. See attending's note for details. . Resident Activity Tracking Resident Involvement: Resident Care Provided Care Provided: Adult ED
[2021-05-27 08:52] LABS: Bilirubin,Total 0.7 mg/dl (0.2-1); Globulin 3.4 gm/dl (2.5-4.0); Total Protein 6.8 gm/dl (6.4-8.2)
[2021-05-27 09:04] LABS: Partial Thromboplastin Ratio 0.9; Prothrombin Time 10.4 Seconds (9.0-12.0)
[2021-05-27 09:13] LABS: Magnesium 1.9 mg/dl (1.8-2.4); Troponin I < 0.015 ng/ml (0-0.045)
[2021-05-27] MEDS ORDERED: OPTIRAY 320 125ml IV ONE (09:20)
[2021-05-27] MEDS ORDERED: PROMETHAZINE 12.5 MG/50.5 ML BAG IV STA (09:35)
--- NOTE | 2021-05-27 09:59 | CT Scan Report ---
UNENHANCED CT OF THE BRAIN; CT ANGIOGRAM OF THE BRAIN; CT ANGIOGRAM OF THE NECK CLINICAL HISTORY: Strokelike symptoms. COMPARISON STUDY: CT of the brain dated 04/05/2021. CT of the neck dated 04/03/2019. TECHNIQUE: Unenhanced axial CT scan of the brain is performed. Subsequently, following the IV adminis tration of 120 of Optiray 320, CT angiogram of the head and neck was performed from the aortic arch t o the vertex. Images are reviewed in the axial, sagittal, and coronal planes. 3-D MIPS images are cre ated and assessed. IV contrast was administered without complication. All measurements were calculate d based on NASCET criteria. A dose lowering technique was utilized adhering to the principles of ALA RA. The examinations are modestly degraded by motion artifact. FINDINGS: Brain parenchyma: There is age-related involutional change noting mild subcortical and periventricula r microangiopathic disease. There is no hemorrhage, mass effect, or evidence of acute territorial isc hemia by CT criteria. There is no evidence of enhancing mass lesion on the angiogram phase images. Th e ventricles, sulci, and cisterns are prominent secondary to involutional change. Cote-white matter d ifferentiation is preserved. No extra-axial fluid collection is seen. Mineralization is noted in the basal ganglia. Thoracic aorta: There is atherosclerotic calcification of the thoracic aorta. Visualized portions of the thoracic aorta are normal in caliber. The aortic arch demonstrates standard 3-vessel anatomy. Right carotid arterial system: The right common carotid artery is widely patent, as are the right int ernal and external carotid arteries. Calcified plaque is noted in the carotid bulb. Left carotid arterial system: The left common carotid artery is widely patent, as are the left hospitality internship al and external carotid arteries. Calcified plaque is seen in the carotid bulb. There is tortuosity o f the left internal carotid artery. 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 This originates just above the bifurcation, and is best seen on image #214. This ext ends approximately 1 cm in craniocaudal length. Vertebral arteries: The vertebral arteries are widely patent bilaterally noting a right-sided dominan ce. Subclavian arteries: Atherosclerotic plaque causes less than 50% stenosis of the left subclavian falguni ry below the thoracic outlet. The subclavian arteries are otherwise widely patent bilaterally. Intracranial vasculature: There is atherosclerotic calcification of the cavernous carotid and vertebr al arteries. There is a large right posterior communicating artery. The internal carotid arteries are patent at the skull base, as are the anterior and middle cerebral arteries bilaterally. The vertebro basilar system and posterior cerebral arteries are widely patent. The right vertebral artery is domin ant. There is mild ectasia of the supraclinoid right internal carotid artery. No discrete aneurysm is seen. There is no high-grade stenosis or Focal vessel cut off seen throughout the intracranial circu lation. Jugular veins: Patent bilaterally. Dural sinuses: Patent. Lung apices: Partially visualized upper lobe lung parenchyma appears clear. Soft tissues: The visualized pharyngeal soft tissues are normal in appearance noting angiographic pha se technique. The oropharyngeal airway appears widely patent. The salivary and thyroid glands are nor mal in appearance. No cervical lymphadenopathy is seen. Skeletal structures: The skeletal structures are osteopenic. The calvarium appears intact. The cervic al spine is maintained noting multilevel spondylosis. No lytic or blastic lesion is seen. Orbits: The bony orbits are intact. Orbital contents are normal as visualized noting bilateral ocular lens implants. Sinuses and mastoids: The paranasal sinuses are clear. The mastoid air cells are well pneumatized. IMPRESSION: 1. There is no hemorrhage, mass effect, or evidence of acute territorial ischemia by CT criteria. 2. Unremarkable CT angiogram of the brain. 3. There is a short segment focal dissection identified within the proximal left internal carotid art renée located just above the bifurcation. This extends approximately 1 cm in craniocaudal length and is of indeterminant chronicity. 4. There is no evidence of hemodynamically significant stenosis within the carotid or vertebral arter ies. ACT 112: Negative or not required by law. Electronically signed by: Nate Rabago M.D. 05/27/2021 9:57 AM
--- NOTE | 2021-05-27 10:06 | CT Scan Report ---
ABDOMEN AND PELVIS CT WITHOUT CONTRAST CT DOSE: 2357.85 mGy.cm HISTORY: Acute generalized abdominal pain with nausea abd pain TECHNIQUE: Multiaxial CT images of the abdomen and pelvis were performed without contrast. A dose lo wering technique was utilized adhering to the principles of ALARA. COMPARISON STUDY: CT abdomen and pelvis 03/23/2021 FINDINGS: Mild bibasilar mucous plugging with atelectasis/scarring. No pneumatosis or pneumoperitoneu m. Coronary artery calcifications with mild cardiomegaly. The unenhanced spleen is unremarkable with a few scattered punctate parenchymal calcifications. Unremarkable liver and adrenal glands. Mildly co ntracted gallbladder with cholelithiasis in the gallbladder neck. No biliary ductal dilation. Mildly atrophic pancreas. 3 mm nonobstructing calculus of the interpolar right kidney. There are 2 calculi o f the left kidney which measure up to 3 mm. Mild nonspecific bilateral perinephric stranding. Exophyt ic 8 mm hypodensity of the inferior pole left kidney is suggestive of a cyst. 6 mm hypodensity of the inferior pole right kidney is too small to characterize. No ureteral calculi or hydronephrosis. Pelv ic floor relaxation with small cystocele. Hysterectomy. Unremarkable urinary bladder. Extensive calci fied plaque the abdominal aorta with 3.2 cm infrarenal aneurysm. No adenopathy. Duodenal diverticulum. No bowel obstruction or bowel wall thickening. Nonvisualization of the appendi x. Colonic diverticulosis without CT evidence of acute diverticulitis. Unremarkable soft tissues. Deg enerative changes of the spine, pelvis and hips. Demineralized appearance of the bones. No acute frac ture. IMPRESSION: 1. No bowel obstruction or bowel wall thickening. 2. Colonic diverticulosis without acute diverticulitis. 3. Nonobstructing bilateral nephrolithiasis. 4. Cholelithiasis. 5. Extensive atherosclerosis of the abdominal aorta with 3.2 cm infrarenal abdominal aortic aneurysm. 6. Additional findings as above. ACT 112: Negative or not required by law. The above report was generated using voice recognition software. It may contain grammatical, syntax o r spelling errors. Electronically signed by: Zach Perez M.D. 05/27/2021 10:04 AM
[2021-05-27 11:02] LABS: Appearance Urine Cloudy (Clear); Bacteria Urine Automated Negative (Negative); Bilirubin Urine Negative (Negative); Blood Urine Negative (Negative); Color Urine Dark Yellow; Epithelial Cell Urine Auto >30 /lpf (0-5); Glucose Urine UA Negative (Negative); Ketones Urine Trace (Negative); Leukocyte Esterase Urine Trace (Negative); Nitrite Urine Negative (Negative); Protein Urine Negative (Negative); RBC Urine Automated 0-4 /hpf (0-4); Specific Gravity Urine > 1.045 (1.000-1.030); Urobilinogen Urine Negative (Negative); pH Urine 6.5 (4.5-7.5)
[2021-05-27] MEDS ORDERED: DICLOFENAC SOD 1% GEL 100 GM TUBE EXT PRN (11:16)
[2021-05-27] MEDS ORDERED: MECLIZINE HCL 25 MG TAB PO PRN (12:06)
--- NOTE | 2021-05-27 12:32 | History & Physical Report ---
Date of Service May 27, 2021 Assessment & Plan (1) Vertigo: Plan: -Admit to telemetry -Patient presenting from home with reports of dizziness -In the ED, head CT, head and neck CTAs unremarkable -Likely BPPV -Brain MRI -if positive for acute CVA, will complete stroke work-up -As needed meclizine -PT/OT (2) Chronic respiratory failure with hypoxia and hypercapnia: (3) COPD (chronic obstructive pulmonary disease): Plan: -Appears stable, no signs of acute exacerbation -Saturating well on chronic 2L O2 -Continue home inhalers -Patient seems to be noncompliant with home BiPAP (4) Hypertension: Plan: -BP controlled, continue losartan (5) Aneurysm of infrarenal abdominal aorta: Plan: -3.2 cm -Outpatient follow-up with vascular (6) DVT prophylaxis: Plan: -SQ Lovenox History of Present Illness Chief Complaint: Dizziness Primary Care Provider: Paige Bartholomew MD 75-year-old female with PMH COPD with chronic hypoxic and hypercapnic respiratory failure on chronic 2 L of oxygen, HTN, chronic diastolic CHF, infrarenal AAA, and other problems listed below who presents to the ED for evaluation of dizziness. Patient reports that whenever she woke up this morning, she had severe dizziness and she was unable to get up from her couch. She called her life alert button for 911. Patient describes the sensation as the room spinning around her. She also reports associated nausea. She denies any unilateral weakness, numbness, tingling. No difficulty speaking, understanding, or facial droop. Denies headache and blurred vision. She denies chest pain. Chronic exertional shortness of breath is unchanged from baseline. No abdominal pain, vomiting, diarrhea. Denies any other recent illnesses, fevers, chills. She denies urinary symptoms. In the ED, patient received meclizine, IV Zofran, IV promethazine. She reports improvement in her symptoms. Head CT, head and neck CTAs, CT ABD/pelvis are negative for acute findings. Labs are unremarkable. Allergies Allergy/AdvReac Type Severity Reaction Status Date / Time duloxetine [From Cymbalta] Allergy Mild Rash Verified 05/27/21 08:48 naproxen AdvReac Mild GI SYMPTOMS Verified 05/27/21 08:48 Home Medications Medication Instructions Recorded Confirmed Type atorvastatin 40 mg tablet (Lipitor) 40 mg PO QAM 12/14/18 05/27/21 History losartan 25 mg tablet (Cozaar) 25 mg PO QAM 12/14/18 05/27/21 History magnesium oxide 400 mg PO QAM 02/13/19 05/27/21 History metoprolol succinate 50 mg 50 mg PO QAM 04/22/19 05/27/21 History tablet,extended release 24 hr (Toprol XL) Oxygen Home #1 ea 11/05/19 01/19/21 Rx tramadol 50 mg tablet (Ultram) 50 mg PO Q6H PRN 01/22/20 05/27/21 History roflumilast 250 mcg tablet 250 mcg PO QAM #90 tab 06/30/20 05/27/21 Rx (Daliresp) aspirin 81 mg tablet,delayed 81 mg PO QAM 01/19/21 05/27/21 History release (Aspirin Low Dose) multivitamin with minerals-folic 2 tab PO QAM 03/04/21 05/27/21 History acid 200 mcg chewable tablet (Multivitamin Gummies) ipratropium 0.5 mg-albuterol 3 mg 3 ml INHALATION Q4H PRN 03/22/21 05/27/21 History (2.5 mg base)/3 mL nebulization soln albuterol sulfate 90 mcg/actuation 2 puff INHALATION QID PRN #8.5 g 05/05/21 05/27/21 Rx aerosol inhaler (Ventolin HFA) budesonide-formoterol HFA 160 2 puff INH BID 05/27/21 05/27/21 History mcg-4.5 mcg/actuation aerosol inhaler (Symbicort) diclofenac sodium 1 % topical gel 4 g TOPICAL QID 05/27/21 05/27/21 History ondansetron 4 mg disintegrating 4 mg TRANSLINGUAL Q6H PRN 05/27/21 05/27/21 History tablet pantoprazole 40 mg tablet,delayed 40 mg PO QAM 05/27/21 05/27/21 History release (Protonix) ropinirole 0.25 mg tablet 0.25 mg PO HS 05/27/21 05/27/21 History Past Med/Surg History Medical History (Updated 05/27/21 @ 14:52 by Rayray Cheema MD) Aneurysm of infrarenal abdominal aorta Anxiety BCC (basal cell carcinoma of skin) on left side of face---"s/p MOHS surgery" Chronic diastolic heart failure Chronic respiratory failure with hypoxia and hypercapnia Chronic respiratory failure with hypoxia, on home O2 therapy OXYGEN 3L/MIN VIA NC COPD (chronic obstructive pulmonary disease) Degenerative disc disease Dyslipidemia Fibromyalgia GERD (gastroesophageal reflux disease) Gram-positive bacteremia Hypertension Obesity hypoventilation syndrome On home oxygen therapy 3L N/C at all times Osteoporosis Sinus tachycardia SOB (shortness of breath) on exertion Tremor of both hands Wrist fracture, left Surgical History History of bilateral cataract extraction History of carpal tunnel surgery of right wrist History of colonoscopy with polypectomy History of esophagogastroduodenoscopy (EGD) History of left breast biopsy benign History of mandibular surgery jaw fx History of repair of left rotator cuff History of repair of right rotator cuff History of tooth extraction S/P Mohs surgery for basal cell carcinoma Status post appendectomy Status post excision of lipoma removed off neck x2 Status post hysterectomy Status post repair of ventral hernia Family History Grandfather (Maternal) Family hx of colon cancer Father FH: kidney cancer Family/Other Family history of diabetes mellitus nephew Other Kidney disease Lung disease No family history of adverse response to anesthesia Social History Smoking Status: Never smoker Tobacco Type: Cigarettes Cigarettes Per Day: unsure when she quit; Second Hand Exposure: No; Hx Alcohol Use: No Hx Substance Use: No Preferred Language: Bahamian Communication Ability: Effective Government Clerk Required: No Beliefs That Will Affect Care: None marital status: / Current Living Situation: Alone current occupational status: retired How many Children do You have: 3 Other Information That Helps Us Care for You: No Feels Safe at Home: Yes Safety Concerns: Feels Safe At This Time Assistive Devices: Cane, Denture - Upper, Denture - Lower, Glasses and Oxygen - Continuous Review of Systems Review of Systems: ROS per HPI, all other systems reviewed and negative Physical Exam Constitutional: WD/WN, vitals as above Eyes: PERRL, conjunctivae normal, anicteric sclerae + nystagmus (Mild, horizontal) ENMT: external ear and nose normal, oropharynx normal Respiratory: normal respiratory effort; no respiratory distress Auscultation: + diminished lung sounds (Bilateral) Cardiovascular: Rate/Rhythm: regular rate and regular rhythm Vessels: normal peripheral pulses Extremities: no edema Gastrointestinal (Abdomen): normal bowel sounds, soft, nontender, no hepatosplenomegaly Musculoskeletal: no cyanosis or clubbing, extremities motor strength 5/5 Skin: no rashes, warm and dry Neurologic: PERRL, EOMI, accommodation nl, no face palsy, no dysarthria Psychiatric: A+Ox3, euthymic affect Results & Data Results & Data ([facility]) Vital Signs (Past 12 Hours) Vital Signs Temp Pulse Resp BP Pulse Ox 05/27/21 10:31 84 23 143/67 H 05/27/21 10:00 86 20 141/67 H 99 05/27/21 09:38 86 17 05/27/21 09:00 72 19 132/60 05/27/21 08:30 72 19 149/66 H 99 05/27/21 08:01 36.6 C 89 24 176/78 H 96 05/27/21 08:00 76 21 172/68 H 98 05/27/21 07:57 75 23 176/78 H 99 Laboratory Results Short CBC 05/27/21 Range/Units 08:19 WBC 8.29 (4.8-10.8) K/uL Hgb 11.2 L (12.0-16.0) g/dL Hct 37.2 (37-47) % Plt Count 204 (130-400) K/uL BMP 05/27/21 08:19 Sodium 141 Potassium 3.8 Chloride 98 Carbon Dioxide 40 H BUN 16 Creatinine 0.56 L Glucose 116 H Calcium 9.6 Cardiac Enzymes 05/27/21 Range/Units 08:19 Troponin I < 0.015 (0-0.045) ng/ml Liver Function 05/27/21 Range/Units 08:19 Total Bilirubin 0.7 (0.2-1) mg/dl AST 10 L (15-37) U/L ALT 14 (12-78) U/L Alkaline Phosphatase 71 (45-117) U/L Albumin 3.4 (3.4-5.0) gm/dl Urine 05/27/21 Range/Units 10:50 Urine Color Dark Yellow Urine Appearance Cloudy A (Clear) Urine pH 6.5 (4.5-7.5) Ur Specific [place] > 1.045 H (1.000-1.030) Urine Protein Negative (Negative) Urine Glucose (UA) Negative (Negative) Diagnostic Findings Head CT 05/27/21 08:[address] OF THE BRAIN; CT ANGIOGRAM OF THE BRAIN; CT ANGIOGRAM OF THE NECK CLINICAL HISTORY: Strokelike symptoms. COMPARISON STUDY: CT of the brain dated 04/05/2021. CT of the neck dated . TECHNIQUE: Unenhanced axial CT scan of the brain is performed. Subsequently, following the IV administration of 120 of Optiray 320, CT angiogram of the head and neck was performed from the aortic arch to the vertex. Images are reviewed in the axial, sagittal, and coronal planes. 3-D MIPS images are created and assessed. IV contrast was administered without complication. All measurements were calculated based on NASCET criteria. A dose lowering technique was utilized adhering to the principles of ALARA. The examinations are modestly degraded by motion artifact. FINDINGS: Brain parenchyma: There is age-related involutional change noting mild subcortical and periventricular microangiopathic disease. There is no hemorrhage, mass effect, or evidence of acute territorial ischemia by CT criteria. There is no evidence of enhancing mass lesion on the angiogram phase images. The ventricles, sulci, and cisterns are prominent secondary to involutional change. Cote-white matter differentiation is preserved. No extra- axial fluid collection is seen. Mineralization is noted in the basal ganglia. Thoracic aorta: There is atherosclerotic calcification of the thoracic aorta. Visualized portions of the thoracic aorta are normal in caliber. The aortic arch demonstrates standard 3-vessel anatomy. Right carotid arterial system: The right common carotid artery is widely patent, as are the right internal and external carotid arteries. Calcified plaque is noted in the carotid bulb. Left carotid arterial system: The left common carotid artery is widely patent, as are the left internal and external carotid arteries. Calcified plaque is seen in the carotid bulb. There is tortuosity of the left internal carotid artery. 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 This originates just above the bifurcation, and is best seen on image #214. This extends approximately 1 cm in craniocaudal length. Vertebral arteries: The vertebral arteries are widely patent bilaterally noting a right-sided dominance. Subclavian arteries: Atherosclerotic plaque causes less than 50% stenosis of the left subclavian artery below the thoracic outlet. The subclavian arteries are otherwise widely patent bilaterally. Intracranial vasculature: There is atherosclerotic calcification of the cavernous carotid and vertebral arteries. There is a large right posterior communicating artery. The internal carotid arteries are patent at the skull base, as are the anterior and middle cerebral arteries bilaterally. The vertebrobasilar system and posterior cerebral arteries are widely patent. The right vertebral artery is dominant. There is mild ectasia of the supraclinoid right internal carotid artery. No discrete aneurysm is seen. There is no high- grade stenosis or Focal vessel cut off seen throughout the intracranial circulation. Jugular veins: Patent bilaterally. Dural sinuses: Patent. Lung apices: Partially visualized upper lobe lung parenchyma appears clear. Soft tissues: The visualized pharyngeal soft tissues are normal in appearance noting angiographic phase technique. The oropharyngeal airway appears widely patent. The salivary and thyroid glands are normal in appearance. No cervical lymphadenopathy is seen. Skeletal structures: The skeletal structures are osteopenic. The calvarium appears intact. The cervical spine is maintained noting multilevel spondylosis. No lytic or blastic lesion is seen. Orbits: The bony orbits are intact. Orbital contents are normal as visualized noting bilateral ocular lens implants. Sinuses and mastoids: The paranasal sinuses are clear. The mastoid air cells are well pneumatized. IMPRESSION: 1. There is no hemorrhage, mass effect, or evidence of acute territorial ischemia by CT criteria. 2. Unremarkable CT angiogram of the brain. 3. 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 This extends approximately 1 cm in craniocaudal length and is of indeterminant chronicity. 4. There is no evidence of hemodynamically significant stenosis within the carotid or vertebral arteries. ACT 112: Negative or not required by law. Electronically signed by: Nate Rabago M.D. 05/27/2021 9:57 AM Head CTA 05/27/21 08:[address] OF THE BRAIN; CT ANGIOGRAM OF THE BRAIN; CT ANGIOGRAM OF THE NECK CLINICAL HISTORY: Strokelike symptoms. COMPARISON STUDY: CT of the brain dated 04/05/2021. CT of the neck dated 04/03/2019. TECHNIQUE: Unenhanced axial CT scan of the brain is performed. Subsequently, following the IV administration of 120 of Optiray 320, CT angiogram of the head and neck was performed from the aortic arch to the vertex. Images are reviewed in the axial, sagittal, and coronal planes. 3-D MIPS images are created and assessed. IV contrast was administered without complication. All measurements were calculated based on NASCET criteria. A dose lowering technique was utilized adhering to the principles of ALARA. The examinations are modestly degraded by motion artifact. FINDINGS: Brain parenchyma: There is age-related involutional change noting mild subcortical and periventricular microangiopathic disease. There is no hemorrhage, mass effect, or evidence of acute territorial ischemia by CT criteria. There is no evidence of enhancing mass lesion on the angiogram phase images. The ventricles, sulci, and cisterns are prominent secondary to involutional change. Cote-white matter differentiation is preserved. No extra-axial fluid collection is seen. Mineralization is noted in the basal ganglia. Thoracic aorta: There is atherosclerotic calcification of the thoracic aorta. Visualized portions of the thoracic aorta are normal in caliber. The aortic arch demonstrates standard 3-vessel anatomy. Right carotid arterial system: The right common carotid artery is widely patent, as are the right internal and external carotid arteries. Calcified plaque is noted in the carotid bulb. Left carotid arterial system: The left common carotid artery is widely patent, as are the left internal and external carotid arteries. Calcified plaque is seen in the carotid bulb. There is tortuosity of the left internal carotid artery. 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 This originates just above the bifurcation, and is best seen on image #214. This extends approximately 1 cm in craniocaudal length. Vertebral arteries: The vertebral arteries are widely patent bilaterally noting a right-sided dominance. Subclavian arteries: Atherosclerotic plaque causes less than 50% stenosis of the left subclavian artery below the thoracic outlet. The subclavian arteries are otherwise widely patent bilaterally. Intracranial vasculature: There is atherosclerotic calcification of the cavernous carotid and vertebral arteries. There is a large right posterior communicating artery. The internal carotid arteries are patent at the skull base, as are the anterior and middle cerebral arteries bilaterally. The vertebrobasilar system and posterior cerebral arteries are widely patent. The right vertebral artery is dominant. There is mild ectasia of the supraclinoid right internal carotid artery. No discrete aneurysm is seen. There is no high- grade stenosis or Focal vessel cut off seen throughout the intracranial circulation. Jugular veins: Patent bilaterally. Dural sinuses: Patent. Lung apices: Partially visualized upper lobe lung parenchyma appears clear. Soft tissues: The visualized pharyngeal soft tissues are normal in appearance noting angiographic phase technique. The oropharyngeal airway appears widely patent. The salivary and thyroid glands are normal in appearance. No cervical lymphadenopathy is seen. Skeletal structures: The skeletal structures are osteopenic. The calvarium appears intact. The cervical spine is maintained noting multilevel spondylosis. No lytic or blastic lesion is seen. Orbits: The bony orbits are intact. Orbital contents are normal as visualized noting bilateral ocular lens implants. Sinuses and mastoids: The paranasal sinuses are clear. The mastoid air cells are well pneumatized. IMPRESSION: 1. There is no hemorrhage, mass effect, or evidence of acute territorial ischemia by CT criteria. 2. Unremarkable CT angiogram of the brain. 3. 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 This extends approximately 1 cm in craniocaudal length and is of indeterminant chronicity. 4. There is no evidence of hemodynamically significant stenosis within the carotid or vertebral arteries. ACT 112: Negative or not required by law. Electronically signed by: Nate Rabago M.D. 05/27/2021 9:57 AM Neck CTA 05/27/21 08:[address] OF THE BRAIN; CT ANGIOGRAM OF THE BRAIN; CT ANGIOGRAM OF THE NECK CLINICAL HISTORY: Strokelike symptoms. COMPARISON STUDY: CT of the brain dated 04/05/2021. CT of the neck dated 04/03/2019. TECHNIQUE: Unenhanced axial CT scan of the brain is performed. Subsequently, following the IV administration of 120 of Optiray 320, CT angiogram of the head and neck was performed from the aortic arch to the vertex. Images are reviewed in the axial, sagittal, and coronal planes. 3-D MIPS images are created and assessed. IV contrast was administered without complication. All measurements were calculated based on NASCET criteria. A dose lowering technique was ut ilized adhering to the principles of ALARA. The examinations are modestly degraded by motion artifact. FINDINGS: Brain parenchyma: There is age-related involutional change noting mild subcortical and periventricular microangiopathic disease. There is no hemorrhage, mass effect, or evidence of acute territorial ischemia by CT criteria. There is no evidence of enhancing mass lesion on the angiogram phase images. The ventricles, sulci, and cisterns are prominent secondary to involutional change. Cote-white matter differentiation is preserved. No extra- axial fluid collection is seen. Mineralization is noted in the basal ganglia. Thoracic aorta: There is atherosclerotic calcification of the thoracic aorta. Visualized portions of the thoracic aorta are normal in caliber. The aortic arch demonstrates standard 3-vessel anatomy. Right carotid arterial system: The right common carotid artery is widely patent, as are the right internal and external carotid arteries. Calcified plaque is no escobar in the carotid bulb. Left carotid arterial system: The left common carotid artery is widely patent, as are the left internal and external carotid arteries. Calcified plaque is seen in the carotid bulb. There is tortuosity of the left internal carotid artery. 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 This originates just above the bifurcation, and is best seen on image #214. This extends approximately 1 cm in craniocaudal length. Vertebral arteries: The vertebral arteries are widely patent bilaterally noting a right-sided dominance. Subclavian arteries: Atherosclerotic plaque causes less than 50% stenosis of the left subclavian artery below the thoracic outlet. The subclavian arteries are otherwise widely patent bilaterally. Intracranial vasculature: There is atherosclerotic calcification of the cavernous carotid and vertebral arteries. There is a large right posterior communicating artery. The internal carotid arteries are patent at the skull base, as are the anterior and middle cerebral arteries bilaterally. The vertebrobasilar system and posterior cerebral arteries are widely patent. The right vertebral artery is dominant. There is mild ectasia of the supraclinoid right internal carotid artery. No discrete aneurysm is seen. There is no high- grade stenosis or Focal vessel cut off seen throughout the intracranial circulation. Jugular veins: Patent bilaterally. Dural sinuses: Patent. Lung apices: Partially visualized upper lobe lung parenchyma appears clear. Soft tissues: The visualized pharyngeal soft tissues are normal in appearance noting angiographic phase technique. The oropharyngeal airway appears widely patent. The salivary and thyroid glands are normal in appearance. No cervical lymphadenopathy is seen. Skeletal structures: The skeletal structures are osteopenic. The calvarium appears intact. The cervical spine is maintained noting multilevel spondylosis. No lytic or blastic lesion is seen. Orbits: The bony orbits are intact. Orbital contents are normal as visualized noting bilateral ocular lens implants. Sinuses and mastoids: The paranasal sinuses are clear. The mastoid air cells are well pneumatized. IMPRESSION: 1. There is no hemorrhage, mass effect, or evidence of acute territorial ischemia by CT criteria. 2. Unremarkable CT angiogram of the brain. 3. 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 This extends approximately 1 cm in craniocaudal length and is of indeterminant chronicity. 4. There is no evidence of hemodynamically significant stenosis within the carotid or vertebral arteries. ACT 112: Negative or not required by law. Electronically signed by: Nate Rabago M.D. 05/27/2021 9:57 AM Abdomen/Pelvis CT 05/27/21 08:[address] WITHOUT CONTRAST CT DOSE: 2357.85 mGy.cm HISTORY: Acute generalized abdominal pain with nausea abd pain TECHNIQUE: Multiaxial CT images of the abdomen and pelvis were performed without contrast. A dose lowering technique was utilized adhering to the principles of ALARA. COMPARISON STUDY: CT abdomen and pelvis 03/23/2021 FINDINGS: Mild bibasilar mucous plugging with atelectasis/scarring. No pneumatosis or pneumoperitoneum. Coronary artery calcifications with mild card iomegaly. The unenhanced spleen is unremarkable with a few scattered punctate parenchymal calcifications. Unremarkable liver and adrenal glands. Mildly contracted gallbladder with cholelithiasis in the gallbladder neck. No biliary ductal dilation. Mildly atrophic pancreas. 3 mm nonobstructing calculus of the interpolar right kidney. There are 2 calculi of the left kidney which measure up to 3 mm. Mild nonspecific bilateral perinephric stranding. Exophytic 8 mm hypodensity of the inferior pole left kidney is suggestive of a cyst. 6 mm hypodensity of the inferior pole right kidney is too small to characterize. No ureteral calculi or hydronephrosis. Pelvic floor relaxation with small cystocele. Hysterectomy. Unremarkable urinary bladder. Extensive calcified plaque the abdominal aorta with 3.2 cm infrarenal aneurysm. No adenopathy. Duodenal diverticulum. No bowel obstruction or bowel wall thickening. Nonvisualization of the appendix. Colonic diverticulosis without CT evidence of acute diverticulitis. Unremarkable soft tissues. Degenerative changes of the spine, pelvis and hips. Demineralized appearance of the bones. No acute fracture. IMPRESSION: 1. No bowel obstruction or bowel wall thickening. 2. Colonic diverticulosis without acute diverticulitis. 3. Nonobstructing bilateral nephrolithiasis. 4. Cholelithiasis. 5. Extensive atherosclerosis of the abdominal aorta with 3.2 cm infrarenal abdominal aortic aneurysm. 6. Additional findings as above. ACT 112: Negative or not required by law. The above report was generated using voice recognition software. It may contain grammatical, syntax or spelling errors. Electronically signed by: Zach Perez M.D. 05/27/2021 10:04 AM Code Status & VTE Plan Code Status Patient is a full code as per my discussion with her. VTE Prophylaxis Plan VTE Prophylaxis will be ordered: Yes Supervising Physician Co-Signing Physician Notes Patient is a 75-year-old female with multiple comorbidities presents with hi story of dizziness which she describes as room spinning lasts, generalized weakness unable to get up from her couch this morning and so presents for further evaluation. She denies any headache, fall, head trauma, blurred vision. Please review HPI for complete details of presentation. She admits to being noncompliant with BiPAP use. MRI brain showed no acute findings. On exam patient is moderately built and nourished, no apparent distress, normocephalic atraumatic, lungs-significantly decreased breath sounds, no wheezes, no accessory muscle use,EOMI, S1-S2, no murmur, no pedal edema, abdomen soft, nontender, normal bowel sounds, no guarding or rigidity, alert, awake, oriented, grossly no focal deficits. Patient is admitted for management of dizziness/vertigo and generalized weakness. Imaging studies showed no acute findings. Check orthostatics. Fall precautions. PT OT consulted. Explained on multiple occasions about compliance to BiPAP use. Nausea likely secondary to dizziness. CT abdomen no acute changes. Scheduled for vascular appointment as outpatient for evaluation of abdominal aortic aneurysm. I personally reviewed the record. Patient is interviewed and examined at bedside. Patient's care is coordinated with Leanna Rust NP. Please refer to the documentation above for details of patient's presentation and for discussion of other issues. (1) COPD (chronic obstructive pulmonary disease) COPD type: unspecified COPD Qualified Code(s): J44.9 - Chronic obstructive pulmonary disease, unspecified (2) Hypertension Hypertension type: unspecified Qualified Code(s): I10 - Essential (primary) hypertension
[2021-05-27] MEDS ORDERED: GADOBUTROL 65ML VIAL IV ONE (13:23)
--- NOTE | 2021-05-27 14:02 | Magnetic Resonance Report ---
Brain MRI WITH AND WITHOUT CONTRAST HISTORY: vertigo TECHNIQUE: Multiplanar multisequence MRI of the brain was performed both before and after the intrave nous administration of contrast. COMPARISON STUDY: Brain MRI 04/06/2021. FINDINGS: There is no mass, hematoma, midline shift, or acute infarct. The paranasal sinuses are denise r. The mastoid air cells are clear. The ventricles and sulci demonstrate mild age-related involutiona l changes. Scattered foci of T2 hyperintensity seen within the periventricular and subcortical white matter are nonspecific but suggestive of moderate microvascular ischemic changes. The major vascular flow voids at the skull base are well-maintained. No abnormal enhancement. IMPRESSION: No significant change compared to the prior study. No acute intracranial abnormality. ACT 112: Negative or not required by law. Electronically signed by: Brayan Estrada M.D. 05/27/2021 2:00 PM
[2021-05-27] MEDS ORDERED: PHARMACIST DISCHARGE MED REC CONSULT PRN (15:34)
[2021-05-27] MEDS ORDERED: ACETAMINOPHEN 325 MG TAB PO PRN (15:34)
[2021-05-27] MEDS ORDERED: ALBUT/IPRATROP 3MG/0.5MG NEB 3 ML VIAL INH PRN (15:34)
[2021-05-27] MEDS: ENOXAPARIN INJ 40 MG/0.4 ML SYR SQ SCH (17:00)
[2021-05-27] MEDS: DICLOFENAC SOD 1% GEL 100 GM TUBE EXT SCH ×2 (17:00→21:04)
--- NOTE | 2021-05-27 17:43 | Electrocardiogram Report ---
Test Reason : Blood Pressure : / mmHG Vent. Rate : 077 BPM Atrial Rate : 077 BPM P-R Int : 126 ms QRS Dur : 088 ms QT Int : 376 ms P-R-T Axes : 060 007 068 degrees QTc Int : 425 ms Poor data quality, interpretation may be adversely affected Normal sinus rhythm Normal ECG When compared with ECG of 05-APR-2021 15:26, Vent. rate has decreased BY 41 BPM Confirmed by Paulie Torres ([id number]) on 05/27/2021 5:42:23 PM Referred By: REFERRED SELF Confirmed By:Jeffrey Torres
[2021-05-27] MEDS: rOPINIRole HCL 0.25 MG TABLET PO SCH (21:05)
[2021-05-27] MEDS: traMADol HCL 50 MG TABLET PO PRN (21:13)
[2021-05-28 07:04] LABS: Basophils # (auto) 0.01 K/uL (0-0.2); Basophils % (auto) 0.2 %; Eosinophils # (auto) 0.25 K/uL (0-0.5); Eosinophils % (auto) 4.5 %; Hematocrit (blood only) 36.2 % (37-47); Hemoglobin 10.7 g/dL (12.0-16.0); Immature Granulocytes # (auto) 0.01 K/uL (0.00-0.02); Immature Granulocytes % (auto) 0.2 %; Lymphocytes # (auto) 1.56 K/uL (1.2-3.4); Mean Corpuscular Hemoglobin 27.6 pg (25-34); Mean Corpuscular Hgb Conc 29.6 g/dL (32-36); Mean Corpuscular Volume 93.3 fL (80-100); Mean Platelet Volume 11.6 fL (7.4-10.4); Monocytes # (auto) 0.55 K/uL (0.11-0.59); Monocytes % (auto) 9.9 %; Neutrophils # (auto) 3.19 K/uL (1.4-6.5); Neutrophils % (auto) 57.2 %; Platelet Count 165 K/uL (130-400); RDW Coefficient of Variation 14.2 % (11.5-14.5); RDW Standard Deviation 48.1 fL (36.4-46.3); Red Blood Count 3.88 M/uL (4.2-5.4); White Blood Count 5.57 K/uL (4.8-10.8)
[2021-05-28 07:53] LABS: BUN Creatinine Ratio 29.6 (10-20); Calcium 8.9 mg/dl (8.5-10.1); Creatinine Clr Calc Pharmacy 74.5 ml/min; Est GFR (African American) 104.9 ml/min; Est GFR (Non-African American) 90.5 ml/min
[2021-05-28 08:12] LABS: Estimated Average Glucose 120 mg/dl; Hemoglobin A1C 5.8 % (4.5-5.6)
[2021-05-28] MEDS: FLUTICASONE/VILANTEROL 100/25MCG 14 PUFFS/INHALER INH SCH (08:57)
[2021-05-28] MEDS: LOSARTAN POTASSIUM 25 MG TAB PO SCH (08:58)
[2021-05-28] MEDS: ASPIRIN 81 MG ECTAB PO SCH (08:58)
[2021-05-28] MEDS: DICLOFENAC SOD 1% GEL 100 GM TUBE EXT SCH ×4 (08:58→21:51)
[2021-05-28] MEDS: ATORVASTATIN 40 MG TAB PO SCH (08:58)
[2021-05-28] MEDS: PANTOprazole 40 MG TAB PO SCH (08:59)
[2021-05-28] MEDS: ROFLUMILAST 500 MCG TAB PO SCH (09:00)
[2021-05-28] MEDS: MAGNESIUM OXIDE 400 MG TAB PO SCH (09:00)
[2021-05-28] MEDS: METOPROLOL SUCC 50MG EXT REL TAB PO SCH (09:00)
[2021-05-28] MEDS: traMADol HCL 50 MG TABLET PO PRN ×2 (09:06→21:54)
[2021-05-28] MEDS: ENOXAPARIN INJ 40 MG/0.4 ML SYR SQ SCH (17:38)
--- NOTE | 2021-05-28 18:03 | Hospitalist Progress Note ---
Date of Service May 28, 2021 Assessment & Plan (1) Vertigo: Plan: Dizziness/vertigo Generalized weakness -MRI Brain:No significant change compared to the prior study. No acute intracranial abnormality. -Head/Neck CTA:There is no hemorrhage, mass effect, or evidence of acute territorial ischemia by CT criteria. Unremarkable CT angiogram of the brain. 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 This extends approximately 1 cm in craniocaudal length and is of indeterminant chronicity. -Negative Orthostatics -Fall precautions -Monitor on tele Meclizine PRN PT/OT Eval May benefit from Rehab placement (2) Chronic respiratory failure with hypoxia and hypercapnia: (3) COPD (chronic obstructive pulmonary disease): Plan: Chronic COPD Chronic respiratory failure with Hypoxia Chronic oxygen dependency Chronic metabolic alkalosis Noncompliance with BiPAP use Counseled on multiple occasions regarding BiPAP on multiple hospitalizations Continue home inhalers Continue supplemental oxygen to keep sats greater than 88% (4) Hypertension: Plan: -BP stable Continue losartan (5) Aneurysm of infrarenal abdominal aorta: Plan: -3.2 cm -Outpatient follow-up with vascular Chronic Nausea Abdominal discomfort -CT ABD:No bowel obstruction or bowel wall thickening. Colonic diverticulosis without acute diverticulitis. Nonobstructing bilateral nephrolithiasis. Cholelithiasis.Extensive atherosclerosis of the abdominal aorta with 3.2 cm infrarenal abdominal aortic aneurysm. -Check KUB in AM (6) DVT prophylaxis: Plan: -SQ Lovenox Admission and Anticipated Discharge Date Admission Date: May 27, 2021 Subjective Patient is seen and examined bedside States dizziness improved Reports having nausea and minimal abdominal discomfort Denies chest pain, dyspnea, diarrhea Offers no other complaints Review of Systems Review of Systems: All systems reviewed & are unremarkable except as noted in Subjective Physical Exam Physical Exam: Physical Exam: Vitals signs as noted above General Appearance:Moderately built and nourished, no apparent distress Head: normocephalic, Atraumatic Eyes: normal inspection, EOMI Neck: supple, Trachea midline Respiratory/Chest: Decreased breath sounds, minimal wheees Cardiovascular: S1, S2, No murmur Abdomen/GI:Soft, Non tender, Bowel sounds present Extremities/Musculoskeletal:normal inspection, no edema Neurologic/Psych:AAOX3, grossly no focal neurological deficits Skin: normal color, warm Results & Data Results & Data ([facility]) Vital Signs (Past 12 Hours) Vital Signs Temp Pulse Pulse Resp BP Pulse Ox 05/28/21 16:00 36.9 C 74 16 120/59 L 99 05/28/21 13:01 37.0 C 86 20 124/63 95 05/28/21 08:40 76 05/28/21 08:00 36.5 C 72 16 118/65 96 Laboratory Results Short CBC 05/28/21 Range/Units 06:31 WBC 5.57 (4.8-10.8) K/uL Hgb 10.7 L (12.0-16.0) g/dL Hct 36.2 L (37-47) % Plt Count 165 (130-400) K/uL BMP 05/28/21 06:31 Sodium 140 Potassium 4.0 Chloride 98 Carbon Dioxide 43 H* BUN 16 Creatinine 0.55 L Glucose 94 Calcium 8.9 (1) COPD (chronic obstructive pulmonary disease) COPD type: unspecified COPD Qualified Code(s): J44.9 - Chronic obstructive pulmonary disease, unspecified (2) Hypertension Hypertension type: unspecified Qualified Code(s): I10 - Essential (primary) hypertension
[2021-05-28] MEDS: rOPINIRole HCL 0.25 MG TABLET PO SCH (21:52)
[2021-05-29] MEDS: traMADol HCL 50 MG TABLET PO PRN ×2 (05:46→20:06)
[2021-05-29 07:39] LABS: Basophils # (auto) 0.02 K/uL (0-0.2); Basophils % (auto) 0.3 %; Eosinophils % (auto) 5.7 %; Hematocrit (blood only) 37.1 % (37-47); Hemoglobin 10.9 g/dL (12.0-16.0); Immature Granulocytes # (auto) 0.01 K/uL (0.00-0.02); Immature Granulocytes % (auto) 0.1 %; Lymphocytes # (auto) 1.67 K/uL (1.2-3.4); Lymphocytes % (auto) 23.9 %; Mean Corpuscular Hemoglobin 27.4 pg (25-34); Mean Corpuscular Hgb Conc 29.4 g/dL (32-36); Mean Corpuscular Volume 93.2 fL (80-100); Mean Platelet Volume 11.6 fL (7.4-10.4); Monocytes # (auto) 0.67 K/uL (0.11-0.59); Monocytes % (auto) 9.6 %; Neutrophils # (auto) 4.22 K/uL (1.4-6.5); Neutrophils % (auto) 60.4 %; Platelet Count 211 K/uL (130-400); RDW Coefficient of Variation 14.1 % (11.5-14.5); RDW Standard Deviation 48.1 fL (36.4-46.3); Red Blood Count 3.98 M/uL (4.2-5.4); White Blood Count 6.99 K/uL (4.8-10.8)
--- NOTE | 2021-05-29 08:10 | XRay Report ---
KUB HISTORY: Nausea COMPARISON: Abdomen and pelvis CT 03/23/2021. FINDINGS: The bowel gas pattern is unremarkable. There are no dilated loops of small bowel to suggest an obstruction. No renal calculi. No ureteral calculi. No pneumoperitoneum or pneumatosis. Moderate well-formed stool seen throughout the colon. IMPRESSION: Moderate well-formed stool seen throughout the colon. No evidence for bowel obstruction. ACT 112: Negative or not required by law. Electronically signed by: Brayan Estrada M.D. 05/29/2021 8:09 AM
[2021-05-29 08:25] LABS: BUN Creatinine Ratio 36.1 (10-20); Calcium 9.4 mg/dl (8.5-10.1); Creatinine Clr Calc Pharmacy 83.6 ml/min; Est GFR (African American) 108.9 ml/min; Potassium 4.3 mmol/L (3.5-5.1)
[2021-05-29] MEDS ORDERED: POLYETHYLENE (MIRALAX) 17 GM PACK PO PRN (09:28)
[2021-05-29] MEDS ORDERED: POLYETHYLENE (MIRALAX) 17 GM PACK PO ONE (09:29)
[2021-05-29] MEDS: LOSARTAN POTASSIUM 25 MG TAB PO SCH (10:24)
[2021-05-29] MEDS: PANTOprazole 40 MG TAB PO SCH (10:24)
[2021-05-29] MEDS: ASPIRIN 81 MG ECTAB PO SCH (10:25)
[2021-05-29] MEDS: ATORVASTATIN 40 MG TAB PO SCH (10:25)
[2021-05-29] MEDS: ROFLUMILAST 500 MCG TAB PO SCH (10:28)
[2021-05-29] MEDS: MAGNESIUM OXIDE 400 MG TAB PO SCH (10:30)
[2021-05-29] MEDS: FLUTICASONE/VILANTEROL 100/25MCG 14 PUFFS/INHALER INH SCH (10:30)
[2021-05-29] MEDS: DOCUSATE SODIUM 100 MG CAP PO SCH ×3 (11:03→20:06)
[2021-05-29] MEDS: METOPROLOL SUCC 50MG EXT REL TAB PO SCH (11:05)
[2021-05-29] MEDS: DICLOFENAC SOD 1% GEL 100 GM TUBE EXT SCH ×4 (11:07→20:06)
[2021-05-29] MEDS: ENOXAPARIN INJ 40 MG/0.4 ML SYR SQ SCH (17:05)
--- NOTE | 2021-05-29 18:19 | Hospitalist Progress Note ---
Date of Service May 29, 2021 Assessment & Plan (1) Vertigo: Plan: Dizziness/vertigo Generalized weakness -MRI Brain:No significant change compared to the prior study. No acute intracranial abnormality. -Head/Neck CTA:There is no hemorrhage, mass effect, or evidence of acute territorial ischemia by CT criteria. Unremarkable CT angiogram of the brain. 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 This extends approximately 1 cm in craniocaudal length and is of indeterminant chronicity. -Negative Orthostatics -Fall precautions -Monitor on tele Meclizine PRN PT/OT Eval May benefit from Rehab placement [facility] for Dizziness (2) Chronic respiratory failure with hypoxia and hypercapnia: (3) COPD (chronic obstructive pulmonary disease): Plan: Chronic COPD Chronic respiratory failure with Hypoxia Chronic oxygen dependency Chronic metabolic alkalosis Noncompliance with BiPAP use Counseled on multiple occasions regarding BiPAP on multiple hospitalizations Continue home inhalers Continue supplemental oxygen to keep sats greater than 88% Refuses to use BIPAP despite counselling on multiple occasions (4) Hypertension: Plan: -BP stable Continue losartan (5) Aneurysm of infrarenal abdominal aorta: Plan: -3.2 cm -Outpatient follow-up with vascular Chronic Nausea Abdominal discomfort Constipation -CT ABD:No bowel obstruction or bowel wall thickening. Colonic diverticulosis without acute diverticulitis. Nonobstructing bilateral nephrolithiasis. Cholelithiasis.Extensive atherosclerosis of the abdominal aorta with 3.2 cm infrarenal abdominal aortic aneurysm. -KUB:Moderate well-formed stool seen throughout the colon. No evidence for bowel obstruction. -Continue bowel regimen -Encourage to ambulate (6) DVT prophylaxis: Plan: -SQ Lovenox Admission and Anticipated Discharge Date Admission Date: May 27, 2021 Subjective Patient is seen and examined bedside Continues to complain of dizziness Reports constipation, abd discomfort and nausea Denies chest pain, dyspnea, diarrhea Refuses to use BiPAP despite counselling Review of Systems Review of Systems: All systems reviewed & are unremarkable except as noted in Subjective Physical Exam Physical Exam: Physical Exam: Vitals signs as noted above General Appearance:Moderately built and nourished, no apparent distress Head: normocephalic, Atraumatic Eyes: normal inspection, EOMI Neck: supple, Trachea midline Respiratory/Chest: Decreased breath sounds, CTA Cardiovascular: S1, S2, No murmur Abdomen/GI:Soft, Non tender, Bowel sounds present Extremities/Musculoskeletal:normal inspection, no edema Neurologic/Psych:AAOX3, grossly no focal neurological deficits Skin: normal color, warm Results & Data Results & Data ([facility]) Vital Signs (Past 12 Hours) Vital Signs Temp Pulse Pulse Pulse Resp BP BP 05/29/21 15:15 73 05/29/21 14:54 37 C 70 20 126/77 05/29/21 11:35 37.1 C 88 20 143/76 H 05/29/21 07:18 58 L 05/29/21 06:50 37.0 C 61 18 125/77 Pulse Ox 05/29/21 15:15 05/29/21 14:54 97 05/29/21 11:35 94 05/29/21 07:18 05/29/21 06:50 96 Laboratory Results Short CBC 05/29/21 Range/Units 07:06 WBC 6.99 (4.8-10.8) K/uL Hgb 10.9 L (12.0-16.0) g/dL Hct 37.1 (37-47) % Plt Count 211 (130-400) K/uL BMP 05/29/21 07:06 Sodium 138 Potassium 4.3 Chloride 95 L Carbon Dioxide 44 H* BUN 18 Creatinine 0.49 L Glucose 95 Calcium 9.4 (1) COPD (chronic obstructive pulmonary disease) COPD type: unspecified COPD Qualified Code(s): J44.9 - Chronic obstructive pulmonary disease, unspecified (2) Hypertension Hypertension type: unspecified Qualified Code(s): I10 - Essential (primary) hypertension
[2021-05-29] MEDS: rOPINIRole HCL 0.25 MG TABLET PO SCH (20:07)
[2021-05-30] MEDS ORDERED: PROMETHAZINE HCL 12.5 MG in SODIUM CHLORIDE 0.9% 50 ML IV PRN (06:37)
[2021-05-30 08:01] LABS: BUN Creatinine Ratio 29.1 (10-20); Calcium 9.2 mg/dl (8.5-10.1); Creatinine Clr Calc Pharmacy 85.4 ml/min; Est GFR (African American) 109.7 ml/min; Est GFR (Non-African American) 94.6 ml/min; Potassium 4.3 mmol/L (3.5-5.1)
[2021-05-30] MEDS: ASPIRIN 81 MG ECTAB PO SCH (08:26)
[2021-05-30] MEDS: ATORVASTATIN 40 MG TAB PO SCH (08:26)
[2021-05-30] MEDS: DICLOFENAC SOD 1% GEL 100 GM TUBE EXT SCH ×4 (08:27→20:51)
[2021-05-30] MEDS: DOCUSATE SODIUM 100 MG CAP PO SCH ×2 (08:27→20:54)
[2021-05-30] MEDS: MAGNESIUM OXIDE 400 MG TAB PO SCH (08:28)
[2021-05-30] MEDS: LOSARTAN POTASSIUM 25 MG TAB PO SCH (08:28)
[2021-05-30] MEDS: FLUTICASONE/VILANTEROL 100/25MCG 14 PUFFS/INHALER INH SCH (08:28)
[2021-05-30] MEDS: METOPROLOL SUCC 50MG EXT REL TAB PO SCH (08:29)
[2021-05-30] MEDS: PANTOprazole 40 MG TAB PO SCH (08:29)
[2021-05-30] MEDS: ROFLUMILAST 500 MCG TAB PO SCH (08:30)
[2021-05-30] MEDS: traMADol HCL 50 MG TABLET PO PRN ×2 (08:35→20:56)
--- NOTE | 2021-05-30 17:07 | Hospitalist Progress Note ---
Date of Service May 30, 2021 Assessment & Plan (1) Vertigo: Plan: Dizziness/vertigo Generalized weakness -MRI Brain:No significant change compared to the prior study. No acute intracranial abnormality. -Head/Neck CTA:There is no hemorrhage, mass effect, or evidence of acute territorial ischemia by CT criteria. Unremarkable CT angiogram of the brain. 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 This extends approximately 1 cm in craniocaudal length and is of indeterminant chronicity. -Negative Orthostatics -Fall precautions -Monitor on tele Meclizine PRN PT/OT [facility] for Dizziness Dizziness better today Case management to help with discharge planning (2) Chronic respiratory failure with hypoxia and hypercapnia: (3) COPD (chronic obstructive pulmonary disease): Plan: Chronic COPD Chronic respiratory failure with Hypoxia Chronic oxygen dependency Chronic metabolic alkalosis Noncompliance with BiPAP use Counseled on multiple occasions regarding BiPAP on multiple hospitalizations Continue home inhalers Continue supplemental oxygen to keep sats greater than 88% Refuses to use BIPAP despite counselling on multiple occasions (4) Hypertension: Plan: -BP stable Continue losartan (5) Aneurysm of infrarenal abdominal aorta: Plan: -3.2 cm -Outpatient follow-up with vascular Chronic Nausea Abdominal discomfort Constipation -CT ABD:No bowel obstruction or bowel wall thickening. Colonic diverticulosis without acute diverticulitis. Nonobstructing bilateral nephrolithiasis. Cholelithiasis.Extensive atherosclerosis of the abdominal aorta with 3.2 cm infrarenal abdominal aortic aneurysm. -KUB:Moderate well-formed stool seen throughout the colon. No evidence for bowel obstruction. -Continue bowel regimen -Encourage to ambulate Had BM today (6) DVT prophylaxis: Plan: -SQ Lovenox Admission and Anticipated Discharge Date Admission Date: May 29, 2021 Subjective Patient is seen and examined bedside Dizziness better today Had bowel movement earlier this morning Continues to refuse BiPAP at bedtime Denies chest pain, dyspnea, diarrhea Review of Systems Review of Systems: All systems reviewed & are unremarkable except as noted in Subjective Physical Exam Physical Exam: Physical Exam: Vitals signs as noted above General Appearance:Moderately built and nourished, no apparent distress Head: normocephalic, Atraumatic Eyes: normal inspection, EOMI Neck: supple, Trachea midline Respiratory/Chest: Decreased breath sounds, CTA Cardiovascular: S1, S2, No murmur Abdomen/GI:Soft, Non tender, Bowel sounds present Extremities/Musculoskeletal:normal inspection, no edema Neurologic/Psych:AAOX3, grossly no focal neurological deficits Skin: normal color, warm Results & Data Results & Data ([facility]) Vital Signs (Past 12 Hours) Vital Signs Temp Pulse Pulse Resp BP Pulse Ox 05/30/21 15:54 36.8 C 62 16 94/54 L 96 05/30/21 11:09 36.9 C 67 16 123/61 92 05/30/21 08:00 70 05/30/21 07:36 36.6 C 79 16 148/78 H 97 Laboratory Results [facility] 05/30/21 05:43 Sodium 137 Potassium 4.3 Chloride 97 L Carbon Dioxide 42 H* BUN 14 Creatinine 0.48 L Glucose 93 Calcium 9.2 (1) COPD (chronic obstructive pulmonary disease) COPD type: unspecified COPD Qualified Code(s): J44.9 - Chronic obstructive pulmonary disease, unspecified (2) Hypertension Hypertension type: unspecified Qualified Code(s): I10 - Essential (primary) hypertension
[2021-05-30] MEDS: ENOXAPARIN INJ 40 MG/0.4 ML SYR SQ SCH (17:20)
[2021-05-30] MEDS: rOPINIRole HCL 0.25 MG TABLET PO SCH (20:52)
[2021-05-30] MEDS: SENNA 8.6 MG TAB PO SCH (20:52)
[2021-05-31] MEDS: FLUTICASONE/VILANTEROL 100/25MCG 14 PUFFS/INHALER INH SCH (09:16)
[2021-05-31] MEDS: METOPROLOL SUCC 50MG EXT REL TAB PO SCH (09:16)
[2021-05-31] MEDS: DICLOFENAC SOD 1% GEL 100 GM TUBE EXT SCH ×4 (09:16→20:49)
[2021-05-31] MEDS: LOSARTAN POTASSIUM 25 MG TAB PO SCH (09:17)
[2021-05-31] MEDS: DOCUSATE SODIUM 100 MG CAP PO SCH ×2 (09:17→20:49)
[2021-05-31] MEDS: ATORVASTATIN 40 MG TAB PO SCH (09:17)
[2021-05-31] MEDS: ROFLUMILAST 500 MCG TAB PO SCH (09:17)
[2021-05-31] MEDS: PANTOprazole 40 MG TAB PO SCH (09:18)
[2021-05-31] MEDS: ASPIRIN 81 MG ECTAB PO SCH (09:19)
[2021-05-31] MEDS: MAGNESIUM OXIDE 400 MG TAB PO SCH (09:19)
--- NOTE | 2021-05-31 09:23 | Hospitalist Progress Note ---
Date of Service May 31, 2021 Assessment & Plan (1) Vertigo: Plan: Dizziness/vertigo Generalized weakness -MRI Brain:No significant change compared to the prior study. No acute intracranial abnormality. -Head/Neck CTA:There is no hemorrhage, mass effect, or evidence of acute territorial ischemia by CT criteria. Unremarkable CT angiogram of the brain. 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 This extends approximately 1 cm in craniocaudal length and is of indeterminant chronicity. -Negative Orthostatics -Fall precautions -Monitor on tele Meclizine PRN PT/OT [facility] for Dizziness Case management to help with discharge planning Refuses Rehab placement Dizziness continues to improve (2) Chronic respiratory failure with hypoxia and hypercapnia: (3) COPD (chronic obstructive pulmonary disease): Plan: Chronic COPD Chronic respiratory failure with Hypoxia Chronic oxygen dependency Chronic metabolic alkalosis Noncompliance with BiPAP use Counseled on multiple occasions regarding BiPAP on multiple hospitalizations Continue home inhalers Continue supplemental oxygen to keep sats greater than 88% Refuses to use BIPAP despite counselling on multiple occasions 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 Colonic diverticulosis without acute diverticulitis. Nonobstructing bilateral nephrolithiasis. Cholelithiasis.Extensive atherosclerosis of the abdominal aorta with 3.2 cm infrarenal abdominal aortic aneurysm. -KUB:Moderate well-formed stool seen throughout the colon. No evidence for bowel obstruction. -Continue bowel regimen -Encourage to ambulate (6) DVT prophylaxis: Plan: -SQ Lovenox Admission and Anticipated Discharge Date Admission Date: May 29, 2021 Subjective Patient is seen and examined bedside No new complaints Less dizziness today Abd pain resolved Still has some nausea but no vomiting Continues to refuse BiPAP at bedtime Denies chest pain, dyspnea Review of Systems Review of Systems: All systems reviewed & are unremarkable except as noted in Subjective Physical Exam Physical Exam: Physical Exam: Vitals signs as noted above General Appearance:Moderately built and nourished, no apparent distress Head: normocephalic, Atraumatic Eyes: normal inspection, EOMI Neck: supple, Trachea midline Respiratory/Chest: Decreased breath sounds, CTA Cardiovascular: S1, S2, No murmur Abdomen/GI:Soft, Non tender, Bowel sounds present Extremities/Musculoskeletal:normal inspection, no edema Neurologic/Psych:AAOX3, grossly no focal neurological deficits Skin: normal color, warm Results & Data Results & Data ([facility]) Vital Signs (Past 12 Hours) Vital Signs Temp Pulse Pulse Resp BP BP Pulse Ox 05/31/21 08:08 37.0 C 83 16 122/47 L 96 05/31/21 07:16 81 05/31/21 03:00 36.8 C 82 16 136/84 92 05/31/21 01:17 73 05/30/21 23:42 36.9 C 71 18 114/67 97 (1) COPD (chronic obstructive pulmonary disease) COPD type: unspecified COPD Qualified Code(s): J44.9 - Chronic obstructive pulmonary disease, unspecified (2) Hypertension Hypertension type: unspecified Qualified Code(s): I10 - Essential (primary) hypertension
[2021-05-31] MEDS: traMADol HCL 50 MG TABLET PO PRN ×2 (09:48→20:53)
--- NOTE | 2021-05-31 13:04 | Consultation ---
Date of Consultation May 31, 2021 Assessment & Plan (1) Dissection of left carotid artery: Pt CTA reviewed by Dr Paiz. Pt is asymptomatic from this and this is possibly chronic in nature. However, recommend addition of plavix for at least 30 days as a precaution, if there are no contraindications. If new neurological sx occur, then carotids should be reimaged. (2) Aneurysm of infrarenal abdominal aorta: This is small (3.2cm) and does not require surgical intervention at this time. Recommend this be reeval with aortoiliac US in 1 year. Pt states she will see the [facility] specialist as scheduled, then call our office if she wishes to be seen by us for this in future. Pt given office contact information. Please call if needed. History of Present Illness Reason for Consultation: L ICA dissection Attending Physician: Tip Vasquez MD History of Present Illness 75 yo f with hx of HTN, COPD, AAA, CHF, fibromyalgia, osteoporosis, dyslipidemia, basal cell ca, admitted with vertigo sx and found to have short segment dissection of L ICA by CTA, seen in consultation today. Pt denies prior knowledge of this, but states she has had her AAA for a few yrs. States her PCP is sending her to see a [facility] vascular specialist for the AAA at [facility] in about 2 weeks. This admission was prompted by her taking a new medication at home for nausea(does not know the name), and developing severe vertigo and nausea. States prior hx of smoking, but quit years ago. Admits long standing chronic abd pain, nausea, and BARONE. Denies post prandial pain or food fear, LEACH, vision changes, unilateral weakness numbness or tinging, facial droop, chest pain, SOB at rest, heart palpitations, rest pain, claudication, nonhealing ulcerations, other complaints. Lives alone, but has family nearby. Has had multiple falls in past. States her dizziness is still present, but significantly improved. Abd pain and nausea is improved as well. CTA neck demonstrates short segment dissection vs interplaque hemorrhage of L proximal ICA. CT abd pelvis demonstrates 3.2cm AAA. Allergies Allergy/AdvReac Type Severity Reaction Status Date / Time duloxetine [From Cymbalta] Allergy Mild Rash Verified 05/27/21 08:48 naproxen AdvReac Mild GI SYMPTOMS Verified 05/27/21 08:48 Home Medications Medication Instructions Recorded Confirmed Type atorvastatin 40 mg tablet (Lipitor) 40 mg PO QAM 12/14/18 05/27/21 History losartan 25 mg tablet (Cozaar) 25 mg PO QAM 12/14/18 05/27/21 History magnesium oxide 400 mg PO QAM 02/13/19 05/27/21 History metoprolol succinate 50 mg 50 mg PO QAM 04/22/19 05/27/21 History tablet,extended release 24 hr (Toprol XL) Oxygen Home #1 ea 11/05/19 01/19/21 Rx tramadol 50 mg tablet (Ultram) 50 mg PO Q6H PRN 01/22/20 05/27/21 History roflumilast 250 mcg tablet 250 mcg PO QAM #90 tab 06/30/20 05/27/21 Rx (Daliresp) aspirin 81 mg tablet,delayed 81 mg PO QAM 01/19/21 05/27/21 History release (Aspirin Low Dose) multivitamin with minerals-folic 2 tab PO QAM 03/04/21 05/27/21 History acid 200 mcg chewable tablet (Multivitamin Gummies) ipratropium 0.5 mg-albuterol 3 mg 3 ml INHALATION Q4H PRN 03/22/21 05/27/21 History (2.5 mg base)/3 mL nebulization soln albuterol sulfate 90 mcg/actuation 2 puff INHALATION QID PRN #8.5 g 05/05/21 05/27/21 Rx aerosol inhaler (Ventolin HFA) budesonide-formoterol HFA 160 2 puff INH BID 05/27/21 05/27/21 History mcg-4.5 mcg/actuation aerosol inhaler (Symbicort) diclofenac sodium 1 % topical gel 4 g TOPICAL QID 05/27/21 05/27/21 History ondansetron 4 mg disintegrating 4 mg TRANSLINGUAL Q6H PRN 05/27/21 05/27/21 History tablet pantoprazole 40 mg tablet,delayed 40 mg PO QAM 05/27/21 05/27/21 History release (Protonix) ropinirole 0.25 mg tablet 0.25 mg PO HS 05/27/21 05/27/21 History Patient History Medical History (Updated 05/31/21 @ 13:00 by Aaliyah Mcdonald PA-C) Aneurysm of infrarenal abdominal aorta Anxiety BCC (basal cell carcinoma of skin) on left side of face---"s/p MOHS surgery" Chronic diastolic heart failure Chronic respiratory failure with hypoxia and hypercapnia Chronic respiratory failure with hypoxia, on home O2 therapy OXYGEN 3L/MIN VIA NC COPD (chronic obstructive pulmonary disease) Degenerative disc disease Dissection of left carotid artery Dyslipidemia Fibromyalgia GERD (gastroesophageal reflux disease) Gram-positive bacteremia Hypertension Obesity hypoventilation syndrome On home oxygen therapy 3L N/C at all times Osteoporosis Sinus tachycardia SOB (shortness of breath) on exertion Tremor of both hands Wrist fracture, left Surgical History History of bilateral cataract extraction History of carpal tunnel surgery of right wrist History of colonoscopy with polypectomy History of esophagogastroduodenoscopy (EGD) History of left breast biopsy benign History of mandibular surgery jaw fx History of repair of left rotator cuff History of repair of right rotator cuff History of tooth extraction S/P Mohs surgery for basal cell carcinoma Status post appendectomy Status post excision of lipoma removed off neck x2 Status post hysterectomy Status post repair of ventral hernia Family History Grandfather (Maternal) Family hx of colon cancer Father FH: kidney cancer Family/Other Family history of diabetes mellitus nephew Other Kidney disease Lung disease No family history of adverse response to anesthesia Social History Smoking Status: Never smoker Tobacco Type: Cigarettes Cigarettes Per Day: unsure when she quit; Second Hand Exposure: No; Hx Alcohol Use: No Hx Substance Use: No Preferred Language: Macedonian Communication Ability: Effective Commission Broker Required: No Beliefs That Will Affect Care: None marital status: / Current Living Situation: Alone current occupational status: retired How many Children do You have: 3 Other Information That Helps Us Care for You: No Feels Safe at Home: Yes Safety Concerns: Feels Safe At This Time Assistive Devices: Oxygen - Continuous Review of Systems Review of Systems: 14 systems reviewed and negative aside from HPI Physical Exam Constitutional: well developed, + obese, cooperative and comfortable (oxygen via NC); not in distress Neck: trachea midline Respiratory: Auscultation: + diminished lung sounds and + wheezes (mild exp) Cardiovascular: Rate/Rhythm: regular rate and regular rhythm Vessels: femoral pulses present, posterior tibial pulses present, dorsalis pedis pulses present and radial pulses present; no carotid bruit and + abnormal peripheral pulses Gastrointestinal (Abdomen): Inspection/Auscultation: abdomen normal to inspection and normal bowel sounds Percussion/Palpation: + abdomen tender (mild RUQ and epigastric) and abdomen soft; no guarding Musculoskeletal: no cyanosis or clubbing, extremities motor strength 5/5 Skin: no rashes, warm and dry Neurologic: moves all extremities and awake; no focal motor deficits and not confused Psychiatric: Orientation: alert and oriented x 3 Affect: + anxious affect Results & Data ([facility]) Vital Signs (Past 12 Hours) Vital Signs Temp Pulse Pulse Resp BP BP Pulse Ox 05/31/21 08:08 37.0 C 83 16 122/47 L 96 05/31/21 07:16 81 05/31/21 03:00 36.8 C 82 16 136/84 92 05/31/21 01:17 73
[2021-05-31] MEDS: ENOXAPARIN INJ 40 MG/0.4 ML SYR SQ SCH (17:13)
[2021-05-31] MEDS: SENNA 8.6 MG TAB PO SCH (20:49)
[2021-05-31] MEDS: rOPINIRole HCL 0.25 MG TABLET PO SCH (20:49)
[2021-06-01 07:38] LABS: Hematocrit (blood only) 34.7 % (37-47); Hemoglobin 10.4 g/dL (12.0-16.0); Mean Corpuscular Hemoglobin 27.4 pg (25-34); Mean Corpuscular Volume 91.6 fL (80-100); Mean Platelet Volume 11.5 fL (7.4-10.4); Platelet Count 211 K/uL (130-400); RDW Coefficient of Variation 14.4 % (11.5-14.5); RDW Standard Deviation 47.9 fL (36.4-46.3); Red Blood Count 3.79 M/uL (4.2-5.4); White Blood Count 6.16 K/uL (4.8-10.8)
[2021-06-01 08:09] LABS: BUN Creatinine Ratio 33.1 (10-20); Creatinine Clr Calc Pharmacy 92.3 ml/min; Est GFR (Non-African American) 96.7 ml/min; Potassium 4.2 mmol/L (3.5-5.1)
[2021-06-01] MEDS: ASPIRIN 81 MG ECTAB PO SCH (08:49)
[2021-06-01] MEDS: LOSARTAN POTASSIUM 25 MG TAB PO SCH (08:49)
[2021-06-01] MEDS: DICLOFENAC SOD 1% GEL 100 GM TUBE EXT SCH ×4 (08:49→19:45)
[2021-06-01] MEDS: DOCUSATE SODIUM 100 MG CAP PO SCH ×2 (08:49→19:45)
[2021-06-01] MEDS: ATORVASTATIN 40 MG TAB PO SCH (08:49)
[2021-06-01] MEDS: MAGNESIUM OXIDE 400 MG TAB PO SCH (08:50)
[2021-06-01] MEDS: ROFLUMILAST 500 MCG TAB PO SCH (08:50)
[2021-06-01] MEDS: METOPROLOL SUCC 50MG EXT REL TAB PO SCH (08:50)
[2021-06-01] MEDS: PANTOprazole 40 MG TAB PO SCH (08:50)
[2021-06-01] MEDS: FLUTICASONE/VILANTEROL 100/25MCG 14 PUFFS/INHALER INH SCH (08:51)
[2021-06-01] MEDS: traMADol HCL 50 MG TABLET PO PRN (08:55)
--- NOTE | 2021-06-01 12:48 | Hospitalist Progress Note ---
Date of Service June 01, 2021 Assessment & Plan (1) Vertigo: Plan: Dizziness/vertigo Generalized weakness -MRI Brain:No significant change compared to the prior study. No acute intracranial abnormality. -Head/Neck CTA:There is no hemorrhage, mass effect, or evidence of acute territorial ischemia by CT criteria. Unremarkable CT angiogram of the brain. 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 This extends approximately 1 cm in craniocaudal length and is of indeterminant chronicity. -Negative Orthostatics PT/OT Eval Jalil's performed for Dizziness Dizziness has improved (2) Chronic respiratory failure with hypoxia and hypercapnia: (3) COPD (chronic obstructive pulmonary disease): Plan: Chronic COPD Chronic respiratory failure with Hypoxia Chronic oxygen dependency Chronic metabolic alkalosis Noncompliance with BiPAP use per Dr. Vasquez's notes: Counseled on multiple occasions regarding BiPAP on multiple hospitalizations Continue home inhalers Continue supplemental oxygen to keep sats greater than 88% Refuses to use BIPAP despite counselling on multiple occasions --Respiratory status stable Dissection of left carotid artery-POA Incidental finding on CTA Vascular surgery consulted --Recommend addition of Plavix (4) Hypertension: Plan: -BP stable Continue losartan (5) Aneurysm of infrarenal abdominal aorta: Plan: -3.2 cm vascular surgery consulted-Dr. Paiz No surgical intervention at this time, recommend follow-up aortoiliac ultrasound in 1 year Chronic Nausea Abdominal discomfort Constipation -CT ABD:No bowel obstruction or bowel wall thickening. Colonic diverticulosis without acute diverticulitis. Nonobstructing bilateral nephrolithiasis. Cholelithiasis.Extensive atherosclerosis of the abdominal aorta with 3.2 cm infrarenal abdominal aortic aneurysm. -KUB:Moderate well-formed stool seen throughout the colon. No evidence for bowel obstruction. -Continue bowel regimen -Positive BMs, nausea and abdominal discomfort improving (6) DVT prophylaxis: Plan: -SQ Lovenox Admission and Anticipated Discharge Date Admission Date: May 29, 2021 Subjective Follow-up for vertigo etc. Seen resting in bed, comfortable, not in distress, in good spirits States she continues to feel improved Vertigo has resolved, ambulating in the hallways with no problems Tolerating diet well, abdominal pain improving, positive BMs No other symptom Review of Systems Review of Systems: all noted and negative except for above Physical Exam Physical Exam: General- oriented x 3, not in distress, speaks in sentences with no effort or accessory muscle use Head- atraumatic Eyes- PERRL, EOMI, anicteric ENT- oropharynx clear Neck- supple, no JVD, no adenopathy, no thyromegaly; carotids +2/2, no bruits appreciated Lungs- clear to auscultation bilaterally, no rales/wheezes Heart- normal rate, regular rhythm; no murmur, no gallop, no rub appreciated Abdomen- normal bowel sounds, nondistended, soft, nontender, no masses or h epatosplenomegaly Extremities- no pretibial edema, no calf tenderness; peripheral pulses intact Neuro- alert, oriented x 3; CN 2-12 grossly intact; motor 5/5 bilaterally;sensation 100% on all extremities; no other gross focal neurologic deficits Skin- warm & dry Results & Data Results & Data ([facility]) Vital Signs (Past 12 Hours) Vital Signs Temp Pulse Pulse Resp BP BP Pulse Ox 06/01/21 10:08 60 06/01/21 07:58 36.6 C 60 18 135/80 97 06/01/21 04:15 36.7 C 81 18 104/64 96 all noted and reviewed including below (1) COPD (chronic obstructive pulmonary disease) COPD type: unspecified COPD Qualified Code(s): J44.9 - Chronic obstructive pulmonary disease, unspecified (2) Hypertension Hypertension type: unspecified Qualified Code(s): I10 - Essential (primary) hypertension
[2021-06-01] MEDS: ENOXAPARIN INJ 40 MG/0.4 ML SYR SQ SCH (16:52)
[2021-06-01] MEDS: SENNA 8.6 MG TAB PO SCH (19:44)
[2021-06-01] MEDS: rOPINIRole HCL 0.25 MG TABLET PO SCH (19:45)
[2021-06-02] MEDS: FLUTICASONE/VILANTEROL 100/25MCG 14 PUFFS/INHALER INH SCH (07:53)
[2021-06-02] MEDS: DOCUSATE SODIUM 100 MG CAP PO SCH (07:54)
[2021-06-02] MEDS: ROFLUMILAST 500 MCG TAB PO SCH (07:54)
[2021-06-02] MEDS: MAGNESIUM OXIDE 400 MG TAB PO SCH (07:54)
[2021-06-02] MEDS: DICLOFENAC SOD 1% GEL 100 GM TUBE EXT SCH ×2 (07:54→11:43)
[2021-06-02] MEDS: METOPROLOL SUCC 50MG EXT REL TAB PO SCH (07:55)
[2021-06-02] MEDS: ASPIRIN 81 MG ECTAB PO SCH (07:55)
[2021-06-02] MEDS: LOSARTAN POTASSIUM 25 MG TAB PO SCH (07:55)
[2021-06-02] MEDS: PANTOprazole 40 MG TAB PO SCH (07:55)
[2021-06-02] MEDS: ATORVASTATIN 40 MG TAB PO SCH (07:55)
[2021-06-02] MEDS: traMADol HCL 50 MG TABLET PO PRN (09:08)
--- NOTE | 2021-06-02 11:29 | Hospitalist Progress Note ---
Date of Service June 02, 2021 Assessment & Plan (1) Vertigo: Plan: Dizziness likely secondary to Vertigo Generalized weakness -MRI Brain:No significant change compared to the prior study. No acute intracranial abnormality. -Head/Neck CTA:There is no hemorrhage, mass effect, or evidence of acute territorial ischemia by CT criteria. Unremarkable CT angiogram of the brain. 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 This extends approximately 1 cm in craniocaudal length and is of indeterminant chronicity. -Negative Orthostatics PT/OT Evaluated the patient Jalil's performed for Dizziness Dizziness has improved since declines Meclizine (2) Chronic respiratory failure with hypoxia and hypercapnia: (3) COPD (chronic obstructive pulmonary disease): Plan: Chronic COPD Chronic respiratory failure with Hypoxia Chronic oxygen dependency Chronic metabolic alkalosis Noncompliance with BiPAP use per Dr. Vasquez's notes: Counseled on multiple occasions regarding BiPAP on multiple hospitalizations Continue home inhalers Continue supplemental oxygen to keep sats greater than 88% Refuses to use BIPAP despite counselling on multiple occasions --Respiratory status stable Dissection of left carotid artery-POA Incidental finding on CTA Vascular surgery consulted- Dr. Paiz --Recommend addition of Plavix x at least 30 days ff up with Vascular Surgeon in 1 month (4) Hypertension: Plan: -BP stable Continue losartan (5) Aneurysm of infrarenal abdominal aorta: Plan: - 3.2 cm vascular surgery consulted-Dr. Paiz No surgical intervention at this time, recommend follow-up aortoiliac ultrasound in 1 year close ff up with Vascular Surgery Chronic Nausea Abdominal discomfort Constipation -CT ABD: No bowel obstruction or bowel wall thickening. Colonic diverticulosis without acute diverticulitis. Nonobstructing bilateral nephrolithiasis. Cholelithiasis.Extensive atherosclerosis of the abdominal aorta with 3.2 cm infrarenal abdominal aortic aneurysm. -KUB:Moderate well-formed stool seen throughout the colon. No evidence for bowel obstruction. -given bowel regimen -Positive BMs, nausea and abdominal discomfort improved (6) DVT prophylaxis: Plan: -SQ Lovenox d/c home today ff up with PCP in1 week ff up with Vascular Surgery in 1 month Admission and Anticipated Discharge Date Admission Date: May 29, 2021 Subjective ff up for vertigo, etc seen resting in bed, comfortable states she feels better overall dizziness resolved no new focal neurologic symptoms abdominal discomfort also better (+) BMs nausea resolved no other symptoms states she is ready for discharge today Review of Systems Review of Systems: all noted and negative except for above Physical Exam Physical Exam: General- oriented x 3, not in distress, speaks in sentences with no effort or accessory muscle use Eyes- anicteric Neck- no JVD Lungs- clear BS BL Heart- normal rate, regular rhythm; no murmurs Abdomen- normal bowel sounds, nondistended, soft, no tenderness Extremities- no pretibial edema, no calf tenderness Neuro- alert, oriented x 3; no gross focal neurologic deficits Skin- warm & dry Results & Data Results & Data ([facility]) Vital Signs (Past 12 Hours) Vital Signs Temp Pulse Pulse Resp BP Pulse Ox 06/02/21 07:14 79 06/02/21 07:06 37 C 87 16 133/99 98 06/02/21 03:00 36.7 C 77 18 154/81 H 96 06/01/21 23:56 71 all noted and reviewed including below (1) COPD (chronic obstructive pulmonary disease) COPD type: unspecified COPD Qualified Code(s): J44.9 - Chronic obstructive pulmonary disease, unspecified (2) Hypertension Hypertension type: unspecified Qualified Code(s): I10 - Essential (primary) hypertension
[2021-06-02] MEDS ORDERED: STROKE PATIENT DISCHARGE STA (11:40)
--- NOTE | 2021-06-02 11:53 | Discharge Summary ---
Date of Service June 02, 2021 Admission HPI Per Admitting Provider 75-year-old female with PMH COPD with chronic hypoxic and hypercapnic respiratory failure on chronic 2 L of oxygen, HTN, chronic diastolic CHF, infrarenal AAA, and other problems listed below who presents to the ED for evaluation of dizziness. Patient reports that whenever she woke up this morning, she had severe dizziness and she was unable to get up from her couch. She called her life alert button for 911. Patient describes the sensation as the room spinning around her. She also reports associated nausea. She denies any unilateral weakness, numbness, tingling. No difficulty speaking, understanding, or facial droop. Denies headache and blurred vision. She denies chest pain. Chronic exertional shortness of breath is unchanged from baseline. No abdominal pain, vomiting, diarrhea. Denies any other recent illnesses, fevers, chills. She denies urinary symptoms. In the ED, patient received meclizine, IV Zofran, IV promethazine. She reports improvement in her symptoms. Head CT, head and neck CTAs, CT ABD/pelvis are negative for acute findings. Labs are unremarkable. Admission Exam Per Admitting Provider Constitutional: WD/WN, vitals as above Eyes: PERRL, conjunctivae normal, anicteric sclerae + nystagmus (Mild, horizontal) ENMT: external ear and nose normal, oropharynx normal Respiratory: normal respiratory effort; no respiratory distress Auscultation: + diminished lung sounds (Bilateral) Cardiovascular: Rate/Rhythm: regular rate and regular rhythm Vessels: normal peripheral pulses Extremities: no edema Gastrointestinal (Abdomen): normal bowel sounds, soft, nontender, no hepatosplenomegaly Musculoskeletal: no cyanosis or clubbing, extremities motor strength 5/5 Skin: no rashes, warm and dry Neurologic: PERRL, EOMI, accommodation nl, no face palsy, no dysarthria Psychiatric: A+Ox3, euthymic affect Principal Diagnosis Dizziness likely secondary to benign paroxysmal positional vertigo Left carotid artery dissection, likely chronic Discharge Exam General- oriented x 3, not in distress, speaks in sentences with no effort or accessory muscle use Eyes- anicteric Neck- no JVD Lungs- clear BS BL Heart- normal rate, regular rhythm; no murmurs Abdomen- normal bowel sounds, nondistended, soft, no tenderness Extremities- no pretibial edema, no calf tenderness Neuro- alert, oriented x 3; no gross focal neurologic deficits Skin- warm & dry Discharge Data Allergies Allergy/AdvReac Type Severity Reaction Status Date / Time duloxetine [From Cymbalta] Allergy Mild Rash Verified 05/27/21 08:48 naproxen AdvReac Mild GI SYMPTOMS Verified 05/27/21 08:48 Consultations 05/27/21 11:27 ED Decision to Admit Stat 05/31/21 09:38 Consult Vascular Surgery Routine Ordered Studies 05/27/21 08:39 CT angio head w con Stat CT angio neck with con Stat CT head/brain wo con Stat FINDINGS: Brain parenchyma: There is age-related involutional change noting mild subcortical and periventricular microangiopathic disease. There is no hemorrhage, mass effect, or evidence of acute territorial ischemia by CT criteria. There is no evidence of enhancing mass lesion on the angiogram phase images. The ventricles, sulci, and cisterns are prominent secondary to involutional change. Cote-white matter differentiation is preserved. No extra- axial fluid collection is seen. Mineralization is noted in the basal ganglia. Thoracic aorta: There is atherosclerotic calcification of the thoracic aorta. Visualized portions of the thoracic aorta are normal in caliber. The aortic arch demonstrates standard 3-vessel anatomy. Right carotid arterial system: The right common carotid artery is widely patent, as are the right internal and external carotid arteries. Calcified plaque is noted in the carotid bulb. Left carotid arterial system: The left common carotid artery is widely patent, as are the left internal and external carotid arteries. Calcified plaque is seen in the carotid bulb. There is tortuosity of the left internal carotid artery. 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 This originates just above the bifurcation, and is best seen on image #[id number]. This extends approximately 1 cm in craniocaudal length. Vertebral arteries: The vertebral arteries are widely patent bilaterally noting a right-sided dominance. Subclavian arteries: Atherosclerotic plaque causes less than 50% stenosis of the left subclavian artery below the thoracic outlet. The subclavian arteries are otherwise widely patent bilaterally. Intracranial vasculature: There is atherosclerotic calcification of the cavernous carotid and vertebral arteries. There is a large right posterior communicating artery. The internal carotid arteries are patent at the skull base, as are the anterior and middle cerebral arteries bilaterally. The v ertebrobasilar system and posterior cerebral arteries are widely patent. The right vertebral artery is dominant. There is mild ectasia of the supraclinoid right internal carotid artery. No discrete aneurysm is seen. There is no high- grade stenosis or Focal vessel cut off seen throughout the intracranial circulation. Jugular veins: Patent bilaterally. Dural sinuses: Patent. Lung apices: Partially visualized upper lobe lung parenchyma appears clear. Soft tissues: The visualized pharyngeal soft tissues are normal in appearance noting angiographic phase technique. The oropharyngeal airway appears widely patent. The salivary and thyroid glands are normal in appearance. No cervical lymphadenopathy is seen. Skeletal structures: The skeletal structures are osteopenic. The calvarium appears intact. The cervical spine is maintained noting multilevel spondylosis. No lytic or blastic lesion is seen. Orbits: The bony orbits are intact. Orbital contents are normal as visualized noting bilateral ocular lens implants. Sinuses and mastoids: The paranasal sinuses are clear. The mastoid air cells are well pneumatized. IMPRESSION: 1. There is no hemorrhage, mass effect, or evidence of acute territorial ischemia by CT criteria. 2. Unremarkable CT angiogram of the brain. 3. 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 This extends approximately 1 cm in craniocaudal length and is of indeterminant chronicity. 4. There is no evidence of hemodynamically significant stenosis within the carotid or vertebral arteries. 05/27/21 08:40 CT abd pelvis wo con Stat FINDINGS: Mild bibasilar mucous plugging with atelectasis/scarring. No pneumatosis or pneumoperitoneum. Coronary artery calcifications with mild cardiomegaly. The unenhanced spleen is unremarkable with a few scattered punctate parenchymal calcifications. Unremarkable liver and adrenal glands. Mildly contracted gallbladder with cholelithiasis in the gallbladder neck. No biliary ductal dilation. Mildly atrophic pancreas. 3 mm nonobstructing calculus of the interpolar right kidney. There are 2 calculi of the left kidney which measure up to 3 mm. Mild nonspecific bilateral perinephric stranding. Exophytic 8 mm hypodensity of the inferior pole left kidney is suggestive of a cyst. 6 mm hypodensity of the inferior pole right kidney is too small to characterize. No ureteral calculi or hydronephrosis. Pelvic floor relaxation with small cystocele. Hysterectomy. Unremarkable urinary bladder. Extensive calcified plaque the abdominal aorta with 3.2 cm infrarenal aneurysm. No adenopathy. Duodenal diverticulum. No bowel obstruction or bowel wall thickening. Nonvisualization of the appendix. Colonic diverticulosis without CT evidence of acute diverticulitis. Unremarkable soft tissues. Degenerative changes of the spine, pelvis and hips. Demineralized appearance of the bones. No acute fracture. IMPRESSION: 1. No bowel obstruction or bowel wall thickening. 2. Colonic diverticulosis without acute diverticulitis. 3. Nonobstructing bilateral nephrolithiasis. 4. Cholelithiasis. 5. Extensive atherosclerosis of the abdominal aorta with 3.2 cm infrarenal abdominal aortic aneurysm. 6. Additional findings as above. 05/27/21 11:37 MR brain wo/w con Routine FINDINGS: There is no mass, hematoma, midline shift, or acute infarct. The paranasal sinuses are clear. The mastoid air cells are clear. The ventricles and sulci demonstrate mild age-related involutional changes. Scattered foci of T2 hyperintensity seen within the periventricular and subcortical white matter are nonspecific but suggestive of moderate microvascular ischemic changes. The major vascular flow voids at the skull base are well-maintained. No abnormal enhancement. IMPRESSION: No significant change compared to the prior study. No acute intracranial abnormality. Hospital Course (1) Vertigo: Dizziness likely secondary to Vertigo Generalized weakness -MRI Brain:No significant change compared to the prior study. No acute intracran ial abnormality. -Head/Neck CTA:There is no hemorrhage, mass effect, or evidence of acute territorial ischemia by CT criteria. Unremarkable CT angiogram of the brain. 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 This extends approximately 1 cm in craniocaudal length and is of indeterminant chronicity. -Negative Orthostatics PT/OT Evaluated the patient Jalil's performed for Dizziness Dizziness has improved since declines Meclizine (2) Chronic respiratory failure with hypoxia and hypercapnia: (3) COPD (chronic obstructive pulmonary disease): Chronic COPD Chronic respiratory failure with Hypoxia Chronic oxygen dependency Chronic metabolic alkalosis Noncompliance with BiPAP use per Dr. Vasquez's notes: Counseled on multiple occasions regarding BiPAP on multiple hospitalizations Continue home inhalers Continue supplemental oxygen to keep sats greater than 88% Refuses to use BIPAP despite counselling on multiple occasions --Respiratory status stable Dissection of left carotid artery-POA Incidental finding on CTA Vascular surgery consulted- Dr. Paiz --Recommend addition of Plavix x at least 30 days ff up with Vascular Surgeon in 1 month (4) Hypertension: -BP stable Continue losartan (5) Aneurysm of infrarenal abdominal aorta: - 3.2 cm vascular surgery consulted-Dr. Paiz No surgical intervention at this time, recommend follow-up aortoiliac ultrasound in 1 year close ff up with Vascular Surgery Chronic Nausea Abdominal discomfort Constipation -CT ABD: No bowel obstruction or bowel wall thickening. Colonic diverticulosis without acute diverticulitis. Nonobstructing bilateral nephrolithiasis. Cholelithiasis.Extensive atherosclerosis of the abdominal aorta with 3.2 cm infrarenal abdominal aortic aneurysm. -KUB:Moderate well-formed stool seen throughout the colon. No evidence for bowel obstruction. -given bowel regimen -Positive BMs, nausea and abdominal discomfort improved (6) DVT prophylaxis: -SQ Lovenox d/c home ff up with PCP in1 week ff up with Vascular Surgery in 1 month plan of care discussed with patient in detail and at length all questions answered she is understanding, agreeable, comfortable with the plan of care Total Time Total Time Spent Total Time Spent (In Minutes): 40 minutes Discharge Plan Discharge Items Patient Disposition: Home - Home Health Services Reason For Visit: VERTIGO Discharge Diagnosis: Dizziness likely secondary to vertigo Activity: Resume your previous activity Lifting: Wait until after follow-up appointment Exercise/Sports: Wait until after follow-up appointment Driving/Machine Use: No driving until reevaluated and allowed by primary care physician Non-emergency contact: Primary Care Provider Call non-emergency contact if: you have any medication questions, your symptoms worsen, your pain is not controlled, your pain is worsening, your pain is unusual for you, your pain is concerning for you and you have a fever Follow-up/Referrals: Paige Bartholomew MD [Primary Care Provider] - (Date & Time 06/08/2021 11:00 AM Provider Paige Bartholomew MD Department Family Practice [facility] ) Yoav Paiz MD [Physician] - Diet: Heart Healthy Addtl Attending Provider Instructions: Please review your new medication list and follow instructions carefully. New medication: Plavix-for left carotid artery dissection Call your primary care physician or return to the ER immediately if you have recurrence or worsening of symptoms. Follow-up with primary care provider as outlined above. Follow-up with vascular surgeon in 1 month. Pending Studies at Discharge: No Stand-Alone Forms: My [facility], Smoking Cessation Medications and DC Order Prescriptions: New docusate sodium 100 mg Capsule 100 mg PO BID Qty: 30 RF: 1 clopidogrel [Plavix] 75 mg tablet 75 mg PO DAILY Qty: 30 RF: 0 Continued Daliresp 250 mcg tablet 250 mcg PO QAM Qty: 90 RF: 1 (DME) Oxygen Home Liters Per Minute See Rx Instructions .ROUTE .MEDSUPPLY Qty: 1 RF: 0 tramadol [Ultram] 50 mg tablet 50 mg PO Q6H PRN (Reason: Pain) RF: 0 albuterol sulfate [Ventolin HFA] 90 mcg/actuation HFA aerosol inhaler 2 puff INHALATION QID PRN (Reason: Shortness Of Breath Or Wheezing) Qty: 8.5 RF: 5 magnesium oxide 400 mg magnesium Capsule 400 mg PO QAM RF: 0 atorvastatin [Lipitor] 40 mg Tablet 40 mg PO QAM RF: 0 losartan [Cozaar] 25 mg Tablet 25 mg PO QAM RF: 0 metoprolol succinate [Toprol XL] 50 mg tablet extended release 24 hr 50 mg PO QAM RF: 0 ipratropium-albuterol 0.5 mg-3 mg(2.5 mg base)/3 mL solution for nebulization 3 ml INHALATION Q4H PRN (Reason: COUGH OR WHEEZE) RF: 0 aspirin [Aspirin Low Dose] 81 mg Tablet,Delayed Release (Dr/Ec) 81 mg PO QAM RF: 0 Multivitamin Gummies 200 mcg Tablet,Chewable 2 tab PO QAM RF: 0 ropinirole 0.25 mg tablet 0.25 mg PO HS RF: 0 pantoprazole [Protonix] 40 mg tablet,delayed release (DR/EC) 40 mg PO QAM RF: 0 budesonide-formoterol [Symbicort] 160-4.5 mcg/actuation HFA aerosol inhaler 2 puff INH BID RF: 0 ondansetron 4 mg tablet,disintegrating 4 mg translingual Q6H PRN (Reason: Nausea And Vomiting) RF: 0 diclofenac sodium 1 % Gel 4 g TOPICAL QID RF: 0 Discharge Orders: Discharge Order (Routine); Ordered 06/02/21 Ordered By: Ganesh Han Admission Data Admit Date/Time: 05/29/21 18:10 Attending Provider: Ganesh Han Admit Provider: Tip Vasquez Primary Care Provider: Paige Bartholomew Other Providers: Tip Vasquez ; [facility],Referral Center ; Yoav Paiz
== END 2021-06-02 14:54 | disposition home health service (06) | DRG 149 ==
LOC: 2S 07:52 → ED 07:52 → 2S 15:09 → 2W 05-28 20:02 → SUATTDRO 05-29 18:10

== ENCOUNTER 2021-06-30 10:49 | Inpatient (IN) ==
[2021-06-30 14:07] LABS: Basophils # (auto) 0.01 K/uL (0-0.2); Basophils % (auto) 0.1 %; Eosinophils # (auto) 0.28 K/uL (0-0.5); Eosinophils % (auto) 4.2 %; Hematocrit (blood only) 37.2 % (37-47); Hemoglobin 10.8 g/dL (12.0-16.0); Immature Granulocytes # (auto) 0.02 K/uL (0.00-0.02); Immature Granulocytes % (auto) 0.3 %; Lymphocytes # (auto) 1.02 K/uL (1.2-3.4); Lymphocytes % (auto) 15.3 %; Mean Corpuscular Hemoglobin 27.6 pg (25-34); Mean Corpuscular Volume 94.9 fL (80-100); Monocytes # (auto) 0.65 K/uL (0.11-0.59); Monocytes % (auto) 9.7 %; Neutrophils % (auto) 70.4 %; Platelet Count 181 K/uL (130-400); RDW Coefficient of Variation 14.3 % (11.5-14.5); RDW Standard Deviation 49.3 fL (36.4-46.3); Red Blood Count 3.92 M/uL (4.2-5.4); White Blood Count 6.68 K/uL (4.8-10.8)
--- NOTE | 2021-06-30 14:08 | Emergency Department Note ---
History of Present Illness General Chief complaint: Back Injury/Pain Stated complaint: back pain Time Seen by Provider: 06/30/21 12:21 History of Present Illness Maximum Pain Intensity: 10 Nava Ramos is a 75-year-old female with history of left carotid artery dissection, abdominal aortic aneurysm, infrarenal abdominal aorta aneurysm on aspirin and Plavix, COPD on 3 L O2 at baseline, CHF, HTN, DLD, GERD, fibromyalgia among others listed below who presents to the Emergency Department for evaluation of worsening back pain over the last 6 days. The patient was initially seen in the ED 6 days prior after she bent over to water her plants and heard a "pop" followed by severe pain in her lower back. She did not suffer a fall at that time but was able to pull herself back up using a pole. She was taken via ambulance to the ED for evaluation. During that visit, she had a lumbar x-ray which showed degenerative changes but no acute traumatic injuries. A mild fusiform 3.2 cm aneurysmal abdominal aortic aneurysm was again demonstrated which was also previously seen on CAT scan. The patient was thought to have suffered a muscle strain and was prescribed Flexeril for continued pain control related to muscle spasms and was discharged back to home. Since returning home, the patient states that her back pain has continued to worsen despite taking the Flexeril and her home dose of Ultram that she had previously been prescribed without relief. She has pretty much been laying around as it has been too difficult for her to get up and ambulate. She lives alone and has not been able to do her ADLs or care for herself at home. She denies suffering any additional falls or trauma since she was seen 6 days prior, however due to her worsening symptoms she called the ambulance to bring her to the ED for additional evaluation today. On arrival, the patient complains of generalized abdominal pain, mid thoracic and lower lumbar spine pain radiating across her bilateral lower back, and left hip pain which becomes worse with attempts of movement and to palpation of the areas. She also notes mild left paraspinal cervical tenderness. Otherwise, she denies pain to her head midline C-spine, chest, right hip, bilateral upper or lower extremities. She also denies numbness or tingling, or loss of continence of her bowels or bladder. No recent lightheadedness, dizziness, fevers, chills, cough, shortness of breath above baseline, nausea, vomiting, diarrhea or other acute complaints. Home Medications Medication Instructions Recorded Confirmed Type atorvastatin 40 mg tablet (Lipitor) 40 mg PO QAM 12/14/18 06/30/21 History losartan 25 mg tablet (Cozaar) 25 mg PO QAM 12/14/18 06/30/21 History magnesium oxide 400 mg PO QAM 02/13/19 06/30/21 History metoprolol succinate 50 mg 50 mg PO QAM 04/22/19 06/30/21 History tablet,extended release 24 hr (Toprol XL) Oxygen Home #1 ea 11/05/19 06/30/21 Rx tramadol 50 mg tablet (Ultram) 50 mg PO Q6H PRN 01/22/20 06/30/21 History roflumilast 250 mcg tablet 250 mcg PO QAM #90 tab 06/30/20 06/30/21 Rx (Daliresp) aspirin 81 mg tablet,delayed 81 mg PO QAM 01/19/21 06/30/21 History release (Aspirin Low Dose) multivitamin with minerals-folic 2 tab PO QAM 03/04/21 06/30/21 History acid 200 mcg chewable tablet (Multivitamin Gummies) ipratropium 0.5 mg-albuterol 3 mg 3 ml INHALATION Q4H PRN 03/22/21 06/30/21 History (2.5 mg base)/3 mL nebulization soln albuterol sulfate 90 mcg/actuation 2 puff INHALATION QID PRN #8.5 g 05/05/21 06/30/21 Rx aerosol inhaler (Ventolin HFA) budesonide-formoterol HFA 160 2 puff INH BID 05/27/21 06/30/21 History mcg-4.5 mcg/actuation aerosol inhaler (Symbicort) diclofenac sodium 1 % topical gel 4 g TOPICAL QID 05/27/21 06/30/21 History ondansetron 4 mg disintegrating 4 mg TRANSLINGUAL Q6H PRN 05/27/21 06/30/21 History tablet pantoprazole 40 mg tablet,delayed 40 mg PO QAM 05/27/21 06/30/21 History release (Protonix) ropinirole 0.25 mg tablet 0.25 mg PO HS 05/27/21 06/30/21 History clopidogrel 75 mg tablet (Plavix) 75 mg PO DAILY #30 tab 06/02/21 06/30/21 Rx docusate sodium 100 mg capsule 100 mg PO BID #30 cap 06/02/21 06/30/21 Rx cyclobenzaprine 5 mg tablet 5 mg PO TID PRN #10 tab 06/24/21 06/30/21 Rx umeclidinium 62.5 mcg/actuation 1 inh INHALATION DAILY 06/30/21 06/30/21 History blister powder for inhalation Allergies Allergy/AdvReac Type Severity Reaction Status Date / Time duloxetine [From Cymbalta] Allergy Mild Rash Verified 05/27/21 08:48 naproxen AdvReac Mild GI SYMPTOMS Verified 05/27/21 08:48 Past Med/Surg History Medical History Aneurysm of infrarenal abdominal aorta Anxiety BCC (basal cell carcinoma of skin) on left side of face---"s/p MOHS surgery" Chronic diastolic heart failure Chronic respiratory failure with hypoxia and hypercapnia Chronic respiratory failure with hypoxia, on home O2 therapy OXYGEN 3L/MIN VIA NC COPD (chronic obstructive pulmonary disease) Degenerative disc disease Dissection of left carotid artery Dyslipidemia Fibromyalgia GERD (gastroesophageal reflux disease) Gram-positive bacteremia Hypertension Obesity hypoventilation syndrome On home oxygen therapy 3L N/C at all times Osteoporosis Sinus tachycardia SOB (shortness of breath) on exertion Tremor of both hands Wrist fracture, left Surgical History History of bilateral cataract extraction History of carpal tunnel surgery of right wrist History of colonoscopy with polypectomy History of esophagogastroduodenoscopy (EGD) History of left breast biopsy benign History of mandibular surgery jaw fx History of repair of left rotator cuff History of repair of right rotator cuff History of tooth extraction S/P Mohs surgery for basal cell carcinoma Status post appendectomy Status post excision of lipoma removed off neck x2 Status post hysterectomy Status post repair of ventral hernia Family History Grandfather (Maternal) Family hx of colon cancer Father FH: kidney cancer Family/Other Family history of diabetes mellitus nephew Other Kidney disease Lung disease No family history of adverse response to anesthesia Social History Smoking Status: Former smoker Tobacco Type: Cigarettes Cigarettes Per Day: unsure when she quit; Second Hand Exposure: No; Hx Alcohol Use: No Hx Substance Use: No Preferred Language: [place]araguan Communication Ability: Effective Appeals Rn Required: No Beliefs That Will Affect Care: None marital status: / Current Living Situation: Alone current occupational status: retired How many Children do You have: 3 Feels Safe at Home: Yes Assistive Devices: Oxygen - Continuous and Walker Review of Systems A total of 10 systems reviewed and were otherwise negative Physical Exam Vital Signs Vital Signs - 24 hr 06/30/21 11:12 06/30/21 11:21 06/30/21 13:00 Temperature 37.1 C Temperature Source Oral Oral Pulse Rate 78 Pulse Rate [Right Finger] 76 Respiratory Rate 20 20 Respiratory Effort / Characteristics Non-Labored Respiratory Depth Normal Respiratory Pattern Regular Blood Pressure 129/72 Blood Pressure [Right Arm] 144/70 H Blood Pressure Mean 91 Blood Pressure Mean [Right Arm] 94 Pulse Oximetry 98 96 Oxygen Delivery Method Nasal Cannula Nasal Cannula Oxygen Flow Rate 2 Sepsis Recent Fever Within 48 Hours No Sepsis New/Unexplained Change in Mental Status No Sepsis Action Taken by Nursing No Action Required 06/30/21 14:04 06/30/21 16:36 Temperature Temperature Source Pulse Rate Pulse Rate [Right Finger] 69 78 Respiratory Rate 20 18 Respiratory Effort / Characteristics Respiratory Depth Normal Respiratory Pattern Blood Pressure Blood Pressure [Right Arm] 149/66 H 113/54 L Blood Pressure Mean Blood Pressure Mean [Right Arm] 93 73 Pulse Oximetry 96 100 Oxygen Delivery Method Nasal Cannula Nasal Cannula Oxygen Flow Rate 2 Sepsis Recent Fever Within 48 Hours Sepsis New/Unexplained Change in Mental Status Sepsis Action Taken by Nursing General: The patient is well-developed, well-nourished and in no acute distress. The patient is alert and oriented x 3 and lying comfortably in bed. HEENT: Normocephalic, atraumatic, PERRL, EOMI, mucous membranes moist, oropharynx clear Neck: Trachea midline, no meningismus, no mid-line cervical tenderness, mild tenderness to palpation of the left perispinal musculature Resp: Good inspiratory effort on 3L O2 via NC, lung sounds clear bilaterally CV: Regular rate and rhythm, peripheral pulses palpated Back: Tenderness to palpation of the midline mid- thoracic spine, tenderness to palpation of the lower lumbar spine, no obvious step-offs or deformities. Tender to palpation radiating across the lower back L>R Abd: Normoactive bowel sounds in all 4 quadrants, soft, non-distended, generali zed tenderness to palpation without rebound, guarding or rigidity, no peritoneal signs MSK: Tender to palpation of the left pelvis/hip. Stable to AP compression. No obvious long bone deformities to palpation. Moving all extremities with strength 5/5 throughout, sensation and peripheral pulses intact [place]: Awake, alert and oriented x 3, interacting and answering questions appropriately with GCS 15 Course Administered Medications Lidocaine (Lidocaine 5% 1 Patch) 1 patch TD QAM UCHE Stop: 07/30/21 17:14 Last Admin: 06/30/21 17:38 Dose: 1 patch Documented by: [id number] Discontinued Medications Oxycodone HCl (Oxycodone Hcl Ir 5 Mg Tab (Immediate Release)) 5 mg PO NOW STA Stop: 06/30/21 16:39 Last Admin: 06/30/21 16:49 Dose: 5 mg Documented by: [id number] Medical Decision Making Differential Diagnosis Muscle strain, fracture, metastatic disease, disc herniation, sciatica, epidural abscess, vertebral osteomyelitis, discitis, spinal epidural hematoma, cord compression, cauda equine /conus medullary syndrome, aortic disease, ruptured abdominal aortic aneurysm, infection, shingles, renal colic UTI/pyelonephritis, gastrointestinal, acute exacerbation of chronic back pain, as well as others were entertained Laboratory Data Result diagrams: 06/30/21 14:00 06/30/21 14:00 Lab Results 06/30/21 06/30/21 06/30/21 Range/Units 14:00 14:00 17:10 WBC 6.68 (4.8-10.8) K/uL RBC 3.92 L (4.2-5.4) M/uL Hgb 10.8 L (12.0-16.0) g/dL Hct 37.2 (37-47) % MCV 94.9 (80-100) fL MCH 27.6 (25-34) pg MCHC 29.0 L (32-36) g/dL RDW Std Deviation 49.3 H (36.4-46.3) fL RDW Coeff of Reg 14.3 (11.5-14.5) % Plt Count 181 (130-400) K/uL MPV 11.0 H (7.4-10.4) fL Immature Gran % (Auto) 0.3 % Neut % (Auto) 70.4 % Lymph % (Auto) 15.3 % [place] % (Auto) 9.7 % Eos % (Auto) 4.2 % Baso % (Auto) 0.1 % Neut # (Auto) 4.70 (1.4-6.5) K/uL Lymph # (Auto) 1.02 L (1.2-3.4) K/uL [place] # (Auto) 0.65 H (0.11-0.59) K/uL Eos # (Auto) 0.28 (0-0.5) K/uL Baso # (Auto) 0.01 (0-0.2) K/uL Immature Gran # (Auto) 0.02 (0.00-0.02) K/uL Sodium 140 (136-145) mmol/L Potassium 4.8 (3.5-5.1) mmol/L Chloride 96 L (98-107) mmol/L Carbon Dioxide 44 H* (21-32) mmol/L Anion Gap 0 L (3-11) BUN 16 (7-18) mg/dl Creatinine 0.54 L (0.6-1.2) mg/dl Est Cr Clr Drug Dosing Not Reportable Est GFR ( Amer) 105.5 ml/min Est GFR (Non-Af Amer) 91.0 ml/min BUN/Creatinine Ratio 28.7 H (10-20) Glucose 100 H (70-99) mg/dl Calcium 9.5 (8.5-10.1) mg/dl Total Bilirubin 0.4 (0.2-1) mg/dl AST 14 L (15-37) U/L ALT 11 L (12-78) U/L Alkaline Phosphatase 62 (45-117) U/L Total Protein 6.7 (6.4-8.2) gm/dl Albumin 3.1 L (3.4-5.0) gm/dl Globulin 3.6 (2.5-4.0) gm/dl Albumin/Globulin Ratio 0.9 (0.9-2) COVID-19 Eval Order Covid19 at [facility] Imaging Data Radiologist's Impression: Chest CT 06/30/21 12:54 CT OF THE CHEST WITH IV CONTRAST CLINICAL HISTORY: Midline thoracic pain. COMPARISON STUDY: Chest CT April 05, 2021. TECHNIQUE: Following IV administration of 94 mL of Optiray, helical axial images of the chest were obtained. Sagittal and coronal reconstructions were viewed as well as maximal intensity projections on an independent 3-D workstation. Automated exposure control was utilized for the study. A dose lowering technique was utilized adhering to the principles of ALARA. FINDINGS: No enlarged axillary, mediastinal or hilar lymph nodes are present. Mild cardiomegaly is noted. No pericardial effusion. There is no thoracic aortic dissection. No pulmonary emboli are identified. No pneumothorax or pleural effusion is present. There are multiple old left rib fractures. Mild tree-in-bud nodules within the left upper lobe are noted. Central airways are patent. Lungs are suboptimally assessed due to respiratory motion. Subpleural opacities favor atelectasis. Note is made of old severe T7 compression fracture with minimal retropulsion which is similar to CT of April 05, 2021. No acute thoracic spine fracture is identified. There are gallstones within the gallbladder. Abdomen and pelvis will be reported separately. IMPRESSION: 1. No acute process within the chest. 2. Old severe T7 compression fracture, similar to CT of April 05, 2021. No acute thoracic spine fracture. ACT 112: Negative or not required by law. Electronically signed by: Jas Franco M.D. 06/30/2021 3:[address] 06/30/21 12:54 CT lumbar spine w con CT DOSE: CLINICAL HISTORY: lower lumbar pain TECHNIQUE: A dose lowering technique was utilized adhering to the principles of ALARA. COMPARISON STUDY: January 19, 2021. FINDINGS: No definite acute displaced/dislocated fracture is seen. Evaluation is limited due to severe diffuse osteopenia. Mild interval decrease of the L3 height of approximately 15% might represent compression fracture deformity. Normal lumbar lordosis is preserved. Redemonstration of stable narrowing of the L3-L4 level associated with vacuum phenomenon and mild subchondral sclerosis. Multiple anterior osteophytes are again seen. Diffuse bulge of the disc with possible central canal stenosis is seen at the L2-L3, L3-L4, L4-L5 levels. Mild neural foraminal stenosis is seen at L5-S1 level bilaterally. Multiple areas of aneurysmal abdominal aortic dilatation is seen with multiple peripheral calcified plaques. IMPRESSION: Interval development of compression fracture deformity of L3. No evidence of traumatic malalignment. Limited exam due to osteopenia. Multilevel degenerative changes as detailed above. Multiple areas of aneurysmal aortic dilatation. Atherosclerosis. ACT 112: Negative or not required by law. The above report was generated using voice recognition software. It may contain grammatical, syntax or spelling errors. Electronically signed by: Matilda Alejandra DO 06/30/2021 3:[address] 06/30/21 12:54 CT thoracic spine w con INDICATION: [place] ^mid thoracic pain TECHNIQUE: Multidetector row helical CT of the thoracic spine was performed without administration of intravenous contrast. Coronal and sagittal reformations were obtained. Automated dose lowering techniques and/or adjustment according to patient size were utilized for this exam. Comparison: Comparison is made to CT chest 04/05/2021 FINDINGS: No acute fracture. Vertebral plana of T7 is unchanged from prior exam. Diffuse osteopenia is seen. Degenerative changes are noted in the visualized spine. Vertebral body alignment is within normal limits. Surrounding soft tissues are unremarkable. Please see CT chest performed same day for intrathoracic findings. IMPRESSION: No evidence of acute fracture or traumatic subluxation. ACT 112: Negative or not required by law. Electronically signed by: Nikita Mcgill M.D. 06/30/2021 3:44 PM Abdomen/Pelvis CT 06/30/21 12:[address] WITH IV CONTRAST CT DOSE: 782.49 mGy.cm HISTORY: Acute back pain with possible trauma back pain, hx aneurysm TECHNIQUE: Multiaxial CT images of the abdomen and pelvis were performed following the IV administration of 94 cc of Optiray, A dose lowering technique was utilized adhering to the principles of ALARA. COMPARISON STUDY: CT chest, thoracic and lumbar spine studies of same day, CT abdomen and pelvis 05/27/2021 FINDINGS: Mild bibasilar mucous plugging with atelectasis/scarring. No pneumatosis or pneumoperitoneum. Coronary artery calcifications with mild cardiomegaly. The unenhanced spleen is unremarkable with a few scattered punctate parenchymal calcifications. Unremarkable liver and adrenal glands. Mildly contracted gallbladder with cholelithiasis in the gallbladder neck. No biliary ductal dilation. Mildly atrophic pancreas. 3 mm nonobstructing calculus of the interpolar right kidney. There are 2 calculi of the left kidney which measure up to 3 mm. Mild nonsp ecific bilateral perinephric stranding. Exophytic 8 mm hypodensity of the inferior pole left kidney is suggestive of a cyst. 6 mm hypodensity of the inferior pole right kidney is too small to characterize. No ureteral calculi or hydronephrosis. Moderate bladder distention. Hysterectomy. Unremarkable urinary bladder. Extensive calcified plaque the abdominal aorta with 3.2 cm infrarenal aneurysm. No aneurysm rupture. No adenopathy. Duodenal diverticulum. No bowel obstruction or bowel wall thickening. Nonvisualization of the appendix. Colonic diverticulosis without CT evidence of acute diverticulitis. Unremarkable soft tissues. Degenerative changes of the spine, pelvis and hips. Demineralized appearance of the bones. Healed chronic bilateral rib fractures. Mild superior endplate compression deformity at L3 is new from comparison. This is approximately 20% and demonstrates no retropulsion. IMPRESSION: 1. Acute 20% superior endplate compression deformity of the L3 vertebral body without retropulsion. 2. No acute intra-abdominal or intrapelvic abnormality. 3. 3.2 cm infrarenal abdominal aortic aneurysm without rupture. 4. No bowel obstruction or bowel wall thickening. 5. Nonobstructing left nephrolithiasis. 6. Additional findings as above. ACT 112: Negative or not required by law. The above report was generated using voice recognition software. It may contain grammatical, syntax or spelling errors. Electronically signed by: Zach Perez M.D. 06/30/2021 3:42 PM MDM Narrative Physical exam and history were performed. Nursing notes, EMR, and medication list were personally reviewed. Patient was previously seen in the emergency department 6 days prior to arrival for evaluation of lower back pain after she bent over to water her plants. She did not suffer a fall at that time but was able to pull herself up using a pole. While in the emergency department at that time she had lumbar x-rays which did not show acute injuries, but did re-demonstrate a mild fusiform aneurysmal abdominal aorta measuring 3.2 cm. She was thought to have sustained a muscle strain and was discharged back to home with a prescription for Flexeril for ongoing management of pain related to muscle spasms. She also continued to take her home dose of Ultram which she had previously been prescribed without relief of her symptoms. The patient lives at home by herself and is normally able to ambulate around her home using her cane and perform ADLs on her own. However, since returning home after her initial evaluation 6 days ago, she has continued with severe pain to her lower back making it difficult for her to get up from bed. She states that she has been laying around and has not been able to cook her own meals or care for herself due to her ongoing symptoms. She denies suffering any additional falls or trauma, however due to her worsening pain she called the ambulance to bring her to the emergency department for further evaluation today. On exam in the emergency department, the patient was complaining of pain to her mid thoracic spine as well as her lower lumbar spine radiating across her bi lateral lower back and into her left hip and pelvic region. She also had generalized abdominal tenderness. Due to her ongoing symptoms of back pain, and history of aortic aneurysm while being on baby aspirin and Plavix, I discussed my recommendations with the patient for obtaining CAT scans of her chest, abdomen, pelvis, thoracic and lumbar spine to evaluate for injury including spinal or vascular injuries that were not previously seen on the x-ray 6 days ago. I also discussed this with my attending, Dr. Ibanez who agreed with obtaining the CAT scans. Patient agreed with this plan. Labs were also obtained as above and reviewed by myself. Her renal function was normal with BUN 16, Cr 0.5. Anemic with hgb 10.8. She was noted to be hypercarbic at 44, however this appears to be her baseline due to her history of COPD. CAT scans were performed and reviewed by myself and radiology. She does appear to have an acute superior endplate compression deformity of L3 as described above. The 3.2 cm infrarenal abdominal aortic aneurysm without rupture was again demonstrated. I discussed the findings of the acute L3 fracture with the patient as well as Dr. Ibanez. Though no acute intervention is needed for this injury, the patient continues with pain and ambulatory dysfunction despite hans ing pain medication. Disposition options were discussed with case management, and due to her ambula tory dysfunction I do not feel that she is safe to return home by herself. Case was discussed with the hospitalist who agreed to evaluate the patient here in the emergency department. The chart was completed utilizing [employer] Voice Recognition Software. Grammatical errors, random word insertions, pronoun errors, and incomplete sentences are an occasional consequence of this system due to software limitations, ambient noise, and hardware issues. Any formal questions or concerns about the content, text, or information contained within the body of this dictation should be directly addressed to the provider for clarification. Impression & Plan Closed compression fracture of L3 vertebra, Ambulatory dysfunction Discharge Plan Visit Data Chief Complaint: Back Injury/Pain Stated Complaint: back pain ED Provider: Nate Ibanez ED Midlevel Provider: Goldie Tang Discharge Problem: Closed compression fracture of L3 vertebra, Ambulatory dysfunction Patient Disposition: Being Evaluated by Hospitalist Condition: Fair Forms Stand Alone Forms: [facility] [place] [employer] Prescriptions Prescriptions: No Action Daliresp 250 mcg tablet 250 mcg PO QAM Qty: 90 RF: 1 (DME) Oxygen Home Liters Per Minute See Rx Instructions .ROUTE .MEDSUPPLY Qty: 1 RF: 0 tramadol [Ultram] 50 mg tablet 50 mg PO Q6H PRN (Reason: Pain) RF: 0 albuterol sulfate [Ventolin HFA] 90 mcg/actuation HFA aerosol inhaler 2 puff INHALATION QID PRN (Reason: Shortness Of Breath Or Wheezing) Qty: 8.5 RF: 5 magnesium oxide 400 mg magnesium Capsule 400 mg PO QAM RF: 0 atorvastatin [Lipitor] 40 mg Tablet 40 mg PO QAM RF: 0 losartan [Cozaar] 25 mg Tablet 25 mg PO QAM RF: 0 metoprolol succinate [Toprol XL] 50 mg tablet extended release 24 hr 50 mg PO QAM RF: 0 ipratropium-albuterol 0.5 mg-3 mg(2.5 mg base)/3 mL solution for nebulization 3 ml INHALATION Q4H PRN (Reason: COUGH OR WHEEZE) RF: 0 umeclidinium 62.5 mcg/actuation Blister With Device 1 inh INHALATION DAILY RF: 0 aspirin [Aspirin Low Dose] 81 mg Tablet,Delayed Release (Dr/Ec) 81 mg PO QAM RF: 0 Multivitamin Gummies 200 mcg Tablet,Chewable 2 tab PO QAM RF: 0 ropinirole 0.25 mg tablet 0.25 mg PO HS RF: 0 pantoprazole [Protonix] 40 mg tablet,delayed release (DR/EC) 40 mg PO QAM RF: 0 budesonide-formoterol [Symbicort] 160-4.5 mcg/actuation HFA aerosol inhaler 2 puff INH BID RF: 0 ondansetron 4 mg tablet,disintegrating 4 mg translingual Q6H PRN (Reason: Nausea And Vomiting) RF: 0 diclofenac sodium 1 % Gel 4 g TOPICAL QID RF: 0 docusate sodium 100 mg Capsule 100 mg PO BID Qty: 30 RF: 1 clopidogrel [Plavix] 75 mg tablet 75 mg PO DAILY Qty: 30 RF: 0 cyclobenzaprine 5 mg tablet 5 mg PO TID PRN (Reason: muscle spasm) Qty: 10 RF: 0 Referrals Referrals: Paige Bartholomew MD [Primary Care Provider] -
[2021-06-30 14:35] LABS: Alanine Aminotransferase 11 U/L (12-78); Albumin Globulin Ratio 0.9 (0.9-2); Albumin Level 3.1 gm/dl (3.4-5.0); Alkaline Phosphatase 62 U/L (45-117); Anion Gap 0 (3-11); Aspartate Aminotransferase 14 U/L (15-37); BUN Creatinine Ratio 28.7 (10-20); Bilirubin,Total 0.4 mg/dl (0.2-1); Blood Urea Nitrogen 16 mg/dl (7-18); Calcium 9.5 mg/dl (8.5-10.1); Carbon Dioxide 44 mmol/L (21-32); Chloride 96 mmol/L (98-107); Est GFR (African American) 105.5 ml/min; Globulin 3.6 gm/dl (2.5-4.0); Glucose 100 mg/dl (70-99); Potassium 4.8 mmol/L (3.5-5.1); Sodium 140 mmol/L (136-145); Total Protein 6.7 gm/dl (6.4-8.2)
--- NOTE | 2021-06-30 15:37 | CT Scan Report ---
CT OF THE CHEST WITH IV CONTRAST CLINICAL HISTORY: Midline thoracic pain. COMPARISON STUDY: Chest CT April 05, 2021. TECHNIQUE: Following IV administration of 94 mL of Optiray, helical axial images of the chest were o btained. Sagittal and coronal reconstructions were viewed as well as maximal intensity projections o n an independent 3-D workstation. Automated exposure control was utilized for the study. A dose low ering technique was utilized adhering to the principles of ALARA. FINDINGS: No enlarged axillary, mediastinal or hilar lymph nodes are present. Mild cardiomegaly is n oted. No pericardial effusion. There is no thoracic aortic dissection. No pulmonary emboli are identi fied. No pneumothorax or pleural effusion is present. There are multiple old left rib fractures. Mild tree-in-bud nodules within the left upper lobe are noted. Central airways are patent. Lungs are subo ptimally assessed due to respiratory motion. Subpleural opacities favor atelectasis. Note is made of old severe T7 compression fracture with minimal retropulsion which is similar to CT of April 05, 2021. No acute thoracic spine fracture is identified. There are gallstones within the gallbladder. Abdomen and pelvis will be reported separately. IMPRESSION: 1. No acute process within the chest. 2. Old severe T7 compression fracture, similar to CT of April 05, 2021. No acute thoracic spine fractu re. ACT 112: Negative or not required by law. Electronically signed by: Jas Franco M.D. 06/30/2021 3:36 PM
--- NOTE | 2021-06-30 15:44 | CT Scan Report ---
ABDOMEN AND PELVIS CT WITH IV CONTRAST CT DOSE: 782.49 mGy.cm HISTORY: Acute back pain with possible trauma back pain, hx aneurysm TECHNIQUE: Multiaxial CT images of the abdomen and pelvis were performed following the IV administrat ion of 94 cc of Optiray, A dose lowering technique was utilized adhering to the principles of ALARA. COMPARISON STUDY: CT chest, thoracic and lumbar spine studies of same day, CT abdomen and pelvis 05/27 FINDINGS: Mild bibasilar mucous plugging with atelectasis/scarring. No pneumatosis or pneumoperitoneum. Coronar y artery calcifications with mild cardiomegaly. The unenhanced spleen is unremarkable with a few scat tered punctate parenchymal calcifications. Unremarkable liver and adrenal glands. Mildly contracted g allbladder with cholelithiasis in the gallbladder neck. No biliary ductal dilation. Mildly atrophic p ancreas. 3 mm nonobstructing calculus of the interpolar right kidney. There are 2 calculi of the left kidney which measure up to 3 mm. Mild nonspecific bilateral perinephr ic stranding. Exophytic 8 mm hypodensity of the inferior pole left kidney is suggestive of a cyst. 6 mm hypodensity of the inferior pole right kidney is too small to characterize. No ureteral calculi or hydronephrosis. Moderate bladder distention. Hysterectomy. Unremarkable urinary bladder. Extensive c alcified plaque the abdominal aorta with 3.2 cm infrarenal aneurysm. No aneurysm rupture. No adenopat hy. Duodenal diverticulum. No bowel obstruction or bowel wall thickening. Nonvisualization of the appendi x. Colonic diverticulosis without CT evidence of acute diverticulitis. Unremarkable soft tissues. Deg enerative changes of the spine, pelvis and hips. Demineralized appearance of the bones. Healed chroni c bilateral rib fractures. Mild superior endplate compression deformity at L3 is new from comparison. This is approximately 20% and demonstrates no retropulsion. IMPRESSION: 1. Acute 20% superior endplate compression deformity of the L3 vertebral body without retropulsion. 2. No acute intra-abdominal or intrapelvic abnormality. 3. 3.2 cm infrarenal abdominal aortic aneurysm without rupture. 4. No bowel obstruction or bowel wall thickening. 5. Nonobstructing left nephrolithiasis. 6. Additional findings as above. ACT 112: Negative or not required by law. The above report was generated using voice recognition software. It may contain grammatical, syntax o r spelling errors. Electronically signed by: Zach Perez M.D. 06/30/2021 3:42 PM
--- NOTE | 2021-06-30 15:45 | CT Scan Report ---
CT lumbar spine w con CT DOSE: CLINICAL HISTORY: lower lumbar pain TECHNIQUE: A dose lowering technique was utilized adhering to the principles of ALARA. COMPARISON STUDY: January 19, 2021. FINDINGS: No definite acute displaced/dislocated fracture is seen. Evaluation is limited due to severe diffuse osteopenia. Mild interval decrease of the L3 height of approximately 15% might represent compression fracture def ormity. Normal lumbar lordosis is preserved. Redemonstration of stable narrowing of the L3-L4 level associate d with vacuum phenomenon and mild subchondral sclerosis. Multiple anterior osteophytes are again seen . Diffuse bulge of the disc with possible central canal stenosis is seen at the L2-L3, L3-L4, L4-L5 lev els. Mild neural foraminal stenosis is seen at L5-S1 level bilaterally. Multiple areas of aneurysmal abdominal aortic dilatation is seen with multiple peripheral calcified p laques. IMPRESSION: Interval development of compression fracture deformity of L3. No evidence of traumatic malalignment. Limited exam due to osteopenia. Multilevel degenerative changes as detailed above. Multiple areas of aneurysmal aortic dilatation. Atherosclerosis. ACT 112: Negative or not required by law. The above report was generated using voice recognition software. It may contain grammatical, syntax o r spelling errors. Electronically signed by: Matilda Alejandra DO 06/30/2021 3:44 PM
--- NOTE | 2021-06-30 15:46 | CT Scan Report ---
CT thoracic spine w con INDICATION: [place] ^mid thoracic pain TECHNIQUE: Multidetector row helical CT of the thoracic spine was performed without administration of intravenous contrast. Coronal and sagittal reformations were obtained. Automated dose lowering techn iques and/or adjustment according to patient size were utilized for this exam. Comparison: Comparison is made to CT chest 04/05/2021 FINDINGS: No acute fracture. Vertebral plana of T7 is unchanged from prior exam. Diffuse osteopenia is seen. De generative changes are noted in the visualized spine. Vertebral body alignment is within normal limit s. Surrounding soft tissues are unremarkable. Please see CT chest performed same day for intrathoraci c findings. IMPRESSION: No evidence of acute fracture or traumatic subluxation. ACT 112: Negative or not required by law. Electronically signed by: Nikita Mcgill M.D. 06/30/2021 3:44 PM
[2021-06-30] MEDS ORDERED: oxyCODONE HCL IR 5 MG TAB (IMMEDIATE RELEASE) PO STA (16:38)
--- NOTE | 2021-06-30 16:53 | Emergency Department Note ---
ED Visit Note Patient was seen by our PA/COW TRIMMER. I was involved in the patient's care and did evaluate the patient myself. I was involved in the care throughout the ER stay. The patient has a compression fracture. She is not able to function at home. She requires a hospital stay and rehab. .
--- NOTE | 2021-06-30 17:16 | History & Physical Report ---
Date of Service June 30, 2021 Assessment & Plan (1) Back pain: (2) Closed compression fracture of L3 vertebra: (3) Ambulatory dysfunction: (4) Chronic respiratory failure with hypoxia and hypercapnia: (5) COPD (chronic obstructive pulmonary disease): (6) Chronic diastolic heart failure: (7) Fibromyalgia: (8) Hypertension: (9) Dissection of left carotid artery: Plan: This is a 75-year-old female who has significant past medical history of chronic hypoxemic and hypercapnic respiratory failure on 3 L of O2 at baseline, COPD, HTN, HLD, CHF, known infrarenal abdominal aortic aneurysm, GERD, fibromyalgia, essential tremor, History of left carotid artery dissection who presents ED secondary to low back pain x6 days. Lumbar CT: Interval development of compression fracture deformity of L3. No evidence of traumatic malalignment. Acute back pain Close depression fracture of L3 vertebra Ambulatory dysfunction admit to med/surg consult PT/OT - likely to need rehab as she lives alone consult Dr. Silva lidoderm patch, continue prn tramadol schedule valium 2mg bid - monitor closely ICE TID check vit d3 level Chronic hypoxic respiratory failure with hypercapnia on 3 L of O2 COPD No acute exacerbation Continue Symbicort and Umeclidinium as well as Daliresp BiPAP at bedtime -patient mostly noncompliant but will try to encourage follows [facility] Chronic diastolic CHF HTN HLD Continue aspirin, statin, losartan and metoprolol No acute chest pain, has chronic BARONE due to above Daily weights, strict I's and O's History of left carotid artery dissection Found incidentally during recent admission in May Was seen and evaluated by vascular surgery, no acute intervention Started on Plavix and encouraged to take for at least 30 day Will need to make sure she has vascular surgery follow-up at discharge Infrarenal abdominal aortic aneurysm Noted on imaging Previously seen on prior imaging Currently 3.2 cm Will need follow-up with vascular surgery as outpatient DVT ppx: Lovenox Dispo: Med/Surg PCP: Paige Bartholomew MD FULL CODE Pt was seen and examined in collaboration with Dr. Hallman, please see addendum Please contact via [place] text with questions or concerns to Karen Graf). History of Present Illness Chief Complaint: Low back pain x 6 days. Primary Care Provider: Paige Bartholomew MD This is a 75-year-old female who has significant past medical history of chronic hypoxemic and hypercapnic respiratory failure on 3 L of O2 at baseline, COPD, HTN, HLD, CHF, known infrarenal abdominal aortic aneurysm, GERD, fibromyalgia, essential tremor, History of left carotid artery dissection who presents ED secondary to low back pain x6 days. On significance patient was watering her house plants when she bent over and felt a, "break." She admits to breaking many bones in the past and knew something was wrong. She was seen and evaluated by ED on the same day and imaging of lumbar spine was unrevealing. She was discharged to home on Flexeril as it was felt to be musculoskeletal. She lives alone at home and over the past 6 days has had been having difficulty ambulating and getting around on her own. She denies any new falls, but admits to pain being very severe. She feels she requires more help while at home given pain. She chronically has shortness of breath and feels this is at baseline. She also has a chronic productive cough with clear sputum. She denies any fever, chills, sweats, lightheadedness, dizziness, syncope, chest pain, palpitations, nausea, vomiting, abdominal pain, change in her bowel or urinary habits. She admits to being noncompliant with medications of the last few days due to being in pain. In ED she remained hemodynamically stable. She underwent imaging of her thoracic and lumbar spine which revealed a acute compression deformity of L3 a 20% without retropulsion. Also noted incidentally was noted 3.2 cm infrarenal aneurysm without rupture. In ED she received oral oxycodone with mild improvement. Allergies Allergy/AdvReac Type Severity Reaction Status Date / Time duloxetine [From Cymbalta] Allergy Mild Rash Verified 05/27/21 08:48 naproxen AdvReac Mild GI SYMPTOMS Verified 05/27/21 08:48 Home Medications Medication Instructions Recorded Confirmed Type atorvastatin 40 mg tablet (Lipitor) 40 mg PO QAM 12/14/18 06/30/21 History losartan 25 mg tablet (Cozaar) 25 mg PO QAM 12/14/18 06/30/21 History magnesium oxide 400 mg PO QAM 02/13/19 06/30/21 History metoprolol succinate 50 mg 50 mg PO QAM 04/22/19 06/30/21 History tablet,extended release 24 hr (Toprol XL) Oxygen Home #1 ea 11/05/19 06/30/21 Rx tramadol 50 mg tablet (Ultram) 50 mg PO Q6H PRN 01/22/20 06/30/21 History roflumilast 250 mcg tablet 250 mcg PO QAM #90 tab 06/30/20 06/30/21 Rx (Daliresp) aspirin 81 mg tablet,delayed 81 mg PO QAM 01/19/21 06/30/21 History release (Aspirin Low Dose) multivitamin with minerals-folic 2 tab PO QAM 03/04/21 06/30/21 History acid 200 mcg chewable tablet (Multivitamin Gummies) ipratropium 0.5 mg-albuterol 3 mg 3 ml INHALATION Q4H PRN 03/22/21 06/30/21 History (2.5 mg base)/3 mL nebulization soln albuterol sulfate 90 mcg/actuation 2 puff INHALATION QID PRN #8.5 g 05/05/21 06/30/21 Rx aerosol inhaler (Ventolin HFA) budesonide-formoterol HFA 160 2 puff INH BID 05/27/21 06/30/21 History mcg-4.5 mcg/actuation aerosol inhaler (Symbicort) diclofenac sodium 1 % topical gel 4 g TOPICAL QID 05/27/21 06/30/21 History ondansetron 4 mg disintegrating 4 mg TRANSLINGUAL Q6H PRN 05/27/21 06/30/21 His tory tablet pantoprazole 40 mg tablet,delayed 40 mg PO QAM 05/27/21 06/30/21 History release (Protonix) ropinirole 0.25 mg tablet 0.25 mg PO HS 05/27/21 06/30/21 History clopidogrel 75 mg tablet (Plavix) 75 mg PO DAILY #30 tab 06/02/21 06/30/21 Rx docusate sodium 100 mg capsule 100 mg PO BID #30 cap 06/02/21 06/30/21 Rx cyclobenzaprine 5 mg tablet 5 mg PO TID PRN #10 tab 06/24/21 06/30/21 Rx umeclidinium 62.5 mcg/actuation 1 inh INHALATION DAILY 06/30/21 06/30/21 History blister powder for inhalation Past Med/Surg History Medical History Aneurysm of infrarenal abdominal aorta Anxiety BCC (basal cell carcinoma of skin) on left side of face---"s/p MOHS surgery" Chronic diastolic heart failure Chronic respiratory failure with hypoxia and hypercapnia Chronic respiratory failure with hypoxia, on home O2 therapy OXYGEN 3L/MIN VIA NC COPD (chronic obstructive pulmonary disease) Degenerative disc disease Dissection of left carotid artery Dyslipidemia Fibromyalgia GERD (gastroesophageal reflux disease) Gram-positive bacteremia Hypertension Obesity hypoventilation syndrome On home oxygen therapy 3L N/C at all times Osteoporosis Sinus tachycardia SOB (shortness of breath) on exertion Tremor of both hands Wrist fracture, left Surgical History History of bilateral cataract extraction History of carpal tunnel surgery of right wrist History of colonoscopy with polypectomy History of esophagogastroduodenoscopy (EGD) History of left breast biopsy benign History of mandibular surgery jaw fx History of repair of left rotator cuff History of repair of right rotator cuff History of tooth extraction S/P Mohs surgery for basal cell carcinoma Status post appendectomy Status post excision of lipoma removed off neck x2 Status post hysterectomy Status post repair of ventral hernia Family History Grandfather (Maternal) Family hx of colon cancer Father FH: kidney cancer Family/Other Family history of diabetes mellitus nephew Other Kidney disease Lung disease No family history of adverse response to anesthesia Social History Smoking Status: Former smoker Tobacco Type: Cigarettes Cigarettes Per Day: unsure when she quit; Second Hand Exposure: No; Hx Alcohol Use: No Hx Substance Use: No Preferred Language: Egyptian Communication Ability: Effective Ski Molder Required: No Beliefs That Will Affect Care: None marital status: / Current Living Situation: Alone current occupational status: retired How many Children do You have: 3 Feels Safe at Home: Yes Assistive Devices: Oxygen - Continuous and Walker Review of Systems Review of Systems: All systems reviewed & are unremarkable except as noted in HPI & below Physical Exam Physical Exam: Constitutional: Chronically ill Appearing female, vitals as above, NAD, sitting up in bed, good bed mobility, pleasant, conversing easily Head: Normocephalic, Atraumatic Eyes: PERRL, conjunctivae normal, anicteric sclerae ENMT: external ear and nose normal, oropharynx normal Neck: trachea midline, no thyromegaly normal visual inspection Respiratory: normal respiratory effort, on 3L of O2 via NC, decreased breath sounds throughout, lungs clear to auscultation, no wheeze, rales, rhonchi. Normal insp/exp effort, no accessory muscle use Cardiovascular: RRR, no murmur, no edema Vessels: no JVD or carotid bruit Chest: normal inspection of chest Abdomen: normal bowel sounds, soft, nontender, no hepatosplenomegaly Musculoskeletal: no cyanosis or clubbing, extremities motor strength 5/5 Skin: no rashes, warm and dry normal turgor Neurologic: PERRL, EOMI, accommodation nl, no face palsy, no dysarthria CN's II-XI intact bilaterally and moves all extremities Psychiatric: A+Ox3, euthymic affect Lymphatic: no cervical or axillary lymphadenopathy : deferred Results & Data Results & Data ([facility]) Vital Signs (Past 12 Hours) Vital Signs Temp Pulse Pulse Resp BP BP Pulse Ox 06/30/21 16:36 78 18 113/54 L 100 06/30/21 14:04 69 20 149/66 H 96 06/30/21 13:00 76 20 144/70 H 96 06/30/21 11:12 37.1 C 78 20 129/[address] 06/30/21 12:54 CT OF THE CHEST WITH IV CONTRAST CLINICAL HISTORY: Midline thoracic pain. COMPARISON STUDY: Chest CT April 05, 2021. TECHNIQUE: Following IV administration of 94 mL of Optiray, helical axial images of the chest were obtained. Sagittal and coronal reconstructions were viewed as well as maximal intensity projections on an independent 3-D workstation. Automated exposure control was utilized for the study. A dose lowering technique was utilized adhering to the principles of ALARA. FINDINGS: No enlarged axillary, mediastinal or hilar lymph nodes are present. Mild cardiomegaly is noted. No pericardial effusion. There is no thoracic aortic dissection. No pulmonary emboli are identified. No pneumothorax or pleural effusion is present. There are multiple old left rib fractures. Mild tree-in-bud nodules within the left upper lobe are noted. Central airways are patent. Lungs are suboptimally assessed due to respiratory motion. Subpleural opacities favor atelectasis. Note is made of old severe T7 compression fracture with minimal retropulsion which is similar to CT of April 05, 2021. No acute thoracic spine fracture is identified. There are gallstones within the gallbladder. Abdomen and pelvis will be reported separately. IMPRESSION: 1. No acute process within the chest. 2. Old severe T7 compression fracture, similar to CT of April 05, 2021. No acute thoracic spine fracture. ACT 112: Negative or not required by law. Electronically signed by: Jas Franco M.D. 06/30/2021 3:[address] 06/30/21 12:54 CT lumbar spine w con CT DOSE: CLINICAL HISTORY: lower lumbar pain TECHNIQUE: A dose lowering technique was utilized adhering to the principles of ALARA. COMPARISON STUDY: January 19, 2021. FINDINGS: No definite acute displaced/dislocated fracture is seen. Evaluation is limited due to severe diffuse osteopenia. Mild interval decrease of the L3 height of approximately 15% might represent compression fracture deformity. Normal lumbar lordosis is preserved. Redemonstration of stable narrowing of the L3-L4 level associated with vacuum phenomenon and mild subchondral sclerosis. Multiple anterior osteophytes are again seen. Diffuse bulge of the disc with possible central canal stenosis is seen at the L2-L3, L3-L4, L4-L5 levels. Mild neural foraminal stenosis is seen at L5-S1 level bilaterally. Multiple areas of aneurysmal abdominal aortic dilatation is seen with multiple peripheral calcified plaques. IMPRESSION: Interval development of compression fracture deformity of L3. No evidence of traumatic malalignment. Limited exam due to osteopenia. Multilevel degenerative changes as detailed above. Multiple areas of aneurysmal aortic dilatation. Atherosclerosis. ACT 112: Negative or not required by law. The above report was generated using voice recognition software. It may contain grammatical, syntax or spelling errors. Electronically signed by: Matilda Alejandra DO 06/30/2021 3:[address] 06/30/21 12:54 CT thoracic spine w con INDICATION: [place] ^mid thoracic pain TECHNIQUE: Multidetector row helical CT of the thoracic spine was performed wit hout administration of intravenous contrast. Coronal and sagittal reformations were obtained. Automated dose lowering techniques and/or adjustment according to patient size were utilized for this exam. Comparison: Comparison is made to CT chest 04/05/2021 FINDINGS: No acute fracture. Vertebral plana of T7 is unchanged from prior exam. Diffuse osteopenia is seen. Degenerative changes are noted in the visualized spine. Vertebral body alignment is within normal limits. Surrounding soft tissues are unremarkable. Please see CT chest performed same day for intrathoracic findings. IMPRESSION: No evidence of acute fracture or traumatic subluxation. ACT 112: Negative or not required by law. Electronically signed by: Nikita Mcgill M.D. 06/30/2021 3:44 PM Abdomen/Pelvis CT 06/30/21 12:[address] WITH IV CONTRAST CT DOSE: 782.49 mGy.cm HISTORY: Acute back pain with possible trauma back pain, hx aneurysm TECHNIQUE: Multiaxial CT images of the abdomen and pelvis were performed following the IV administration of 94 cc of Optiray, A dose lowering technique was utilized adhering to the principles of ALARA. COMPARISON STUDY: CT chest, thoracic and lumbar spine studies of same day, CT abdomen and pelvis 05/27/2021 FINDINGS: Mild bibasilar mucous plugging with atelectasis/scarring. No pneumatosis or pneumoperitoneum. Coronary artery calcifications with mild cardiomegaly. The unenhanced spleen is unremarkable with a few scattered punctate parenchymal calcifications. Unremarkable liver and adrenal glands. Mildly contracted gallbladder with cholelithiasis in the gallbladder neck. No biliary ductal dilation. Mildly atrophic pancreas. 3 mm nonobstructing calculus of the interpolar right kidney. There are 2 calculi of the left kidney which measure up to 3 mm. Mild nonspecific bilateral perinephric stranding. Exophytic 8 mm hypodensity of the inferior pole left kidney is suggestive of a cyst. 6 mm hypodensity of the inferior pole right kidney is too small to characterize. No ureteral calculi or hydronephrosis. Moderate bladder distention. Hysterectomy. Unremarkable urinary bladder. Extensive calcified plaque the abdominal aorta with 3.2 cm infrarenal aneurysm. No aneurysm rupture. No adenopathy. Duodenal diverticulum. No bowel obstruction or bowel wall thickening. Nonvisualization of the appendix. Colonic diverticulosis without CT evidence of acute diverticulitis. Unremarkable soft tissues. Degenerative changes of the spine, pelvis and hips. Demineralized appearance of the bones. Healed chronic bilateral rib fractures. Mild superior endplate compression deformity at L3 is new from comparison. This is approximately 20% and demonstrates no retropulsion. IMPRESSION: 1. Acute 20% superior endplate compression deformity of the L3 vertebral body without retropulsion. 2. No acute intra-abdominal or intrapelvic abnormality. 3. 3.2 cm infrarenal abdominal aortic aneurysm without rupture. 4. No bowel obstruction or bowel wall thickening. 5. Nonobstructing left nephrolithiasis. 6. Additional findings as above. ACT 112: Negative or not required by law. The above report was generated using voice recognition software. It may contain grammatical, syntax or spelling errors. Electronically signed by: Zach Perez M.D. 06/30/2021 3:42 PM Medications Administered Medication List Discontinued Medications Oxycodone HCl (Oxycodone Hcl Ir 5 Mg Tab (Immediate Release)) 5 mg PO NOW STA Stop: 06/30/21 16:39 Last Admin: 06/30/21 16:49 Dose: 5 mg Documented by: [id number] COVID-19 Results Results COVID-19 Adm Lab Results: RBC 3.92 M/uL (4.2-5.4) L 06/30/21 WBC 6.68 K/uL (4.8-10.8) 06/30/21 Hgb 10.8 g/dL (12.0-16.0) L 06/30/21 Hct 37.2 % (37-47) 06/30/21 Plt Count 181 K/uL (130-400) 06/30/21 Neutrophils (%) (Auto) 70.4 % 06/30/21 Lymphocytes (%) (Auto) 15.3 % 06/30/21 Monocytes # (Auto) 0.65 K/uL (0.11-0.59) H 06/30/21 Eosinophils # (Auto) 0.28 K/uL (0-0.5) 06/30/21 Immature Granulocyte % (Auto) 0.3 % 06/30/21 Neutrophils # (Auto) 4.70 K/uL (1.4-6.5) 06/30/21 Lymphocytes # (Auto) 1.02 K/uL (1.2-3.4) L 06/30/21 Monocytes # (Auto) 0.65 K/uL (0.11-0.59) H 06/30/21 Eosinophils # (Auto) 0.28 K/uL (0-0.5) 06/30/21 Basophils # (Auto) 0.01 K/uL (0-0.2) 06/30/21 Immature Granulocyte # (Auto) 0.02 K/uL (0.00-0.02) 06/30/21 Na 140 mmol/L (136-145) 06/30/21 K 4.8 mmol/L (3.5-5.1) 06/30/21 Cl 96 mmol/L (98-107) L 06/30/21 CO2 44 mmol/L (21-32) H* 06/30/21 Anion Gap 0 (3-11) L 06/30/21 BUN 16 mg/dl (7-18) 06/30/21 Creatinine 0.54 mg/dl (0.6-1.2) L 06/30/21 BUN/Creatinine Ratio 28.7 (10-20) H 06/30/21 Glucose Level 100 mg/dl (70-99) H 06/30/21 Ca 9.5 mg/dl (8.5-10.1) 06/30/21 Total Bilirubin 0.4 mg/dl (0.2-1) 06/30/21 AST/SGOT 14 U/L (15-37) L 06/30/21 ALT/SGPT 11 U/L (12-78) L 06/30/21 Alkaline Phosphatase 62 U/L (45-117) 06/30/21 Total Protein 6.7 gm/dl (6.4-8.2) 06/30/21 Albumin 3.1 gm/dl (3.4-5.0) L 06/30/21 Globulin 3.6 gm/dl (2.5-4.0) 06/30/21 Albumin/Globulin Ratio 0.9 (0.9-2) 06/30/21 COVID-19 PCR NEGATIVE (Negative) 06/30/[address] 06/30/21 Code Status & VTE Plan Code Status Full Code VTE Prophylaxis Plan VTE Prophylaxis will be ordered: Yes Supervising Physician Co-Signing Physician Notes Attending addendum The patient was seen and examined in emergency room He has been feeling much better and the pain at the back is improved Denies any other symptoms On examination Sitting on bed and eating her supper without any acute distress Hemodynamically stable Chest-decreased breath sounds with occasional wheezing HeartS1-S2 regular Abdomenbenign Extremitiestrace edema bilaterally Admission labs, imaging studies reviewed Has closed depression fracture of L3 vertebra following a twisting injury during or during the flowering plants No radiation of pain Orthopedics consulted Agree with assessment and plan as outlined above by TRINITY Fink DR (1) Closed compression fracture of L3 vertebra Encounter type: initial encounter Qualified Code(s): S32.030A - Wedge compression fracture of third lumbar vertebra, initial encounter for closed fracture (2) Back pain Back pain laterality: left Back pain location: low back pain Chronicity: acute Sciatica presence: without sciatica Qualified Code(s): M54.5 - Low back pain (3) COPD (chronic obstructive pulmonary disease) COPD type: unspecified COPD Qualified Code(s): J44.9 - Chronic obstructive pulmonary disease, unspecified (4) Hypertension Hypertension type: unspecified Qualified Code(s): I10 - Essential (primary) hypertension
[2021-06-30] MEDS: LIDOCAINE 5% 1 PATCH TD SCH (17:38)
[2021-06-30 19:28] LABS: Appearance Urine Clear (Clear); Bilirubin Urine Negative (Negative); Blood Urine Negative (Negative); Color Urine Yellow; Glucose Urine UA Negative (Negative); Ketones Urine Negative (Negative); Leukocyte Esterase Urine Negative (Negative); Nitrite Urine Negative (Negative); Protein Urine Negative (Negative); Specific Gravity Urine 1.021 (1.000-1.030); Urobilinogen Urine Negative (Negative)
[2021-06-30] MEDS ORDERED: MAGNESIUM HYDROXIDE SUSP 30 ML UDC PO PRN (20:35)
[2021-06-30] MEDS ORDERED: POLYETHYLENE (MIRALAX) 17 GM PACK PO PRN (20:35)
[2021-06-30] MEDS ORDERED: ALBUTEROL HFA 8 GM INHALER INH PRN (20:35)
[2021-06-30] MEDS ORDERED: ALBUT/IPRATROP 3MG/0.5MG NEB 3 ML VIAL INH PRN (20:35)
[2021-06-30] MEDS ORDERED: ONDANSETRON INJ 2 MG/ML 2 ML VIAL IV PRN (20:35)
[2021-06-30] MEDS ORDERED: ALUMINUM/MAGNESIUM SUSP 30 ML UDC PO PRN (20:35)
[2021-06-30] MEDS: rOPINIRole HCL 0.25 MG TABLET PO SCH ×2 (21:39→22:57)
[2021-06-30] MEDS: DICLOFENAC SOD 1% GEL 100 GM TUBE EXT SCH (21:40)
[2021-06-30] MEDS: DOCUSATE SODIUM 100 MG CAP PO SCH (21:40)
[2021-06-30] MEDS: diazePAM 2 MG TABLET PO SCH (21:41)
[2021-06-30] MEDS: ENOXAPARIN INJ 40 MG/0.4 ML SYR SQ SCH (22:56)
[2021-07-01] MEDS: traMADol HCL 50 MG TABLET PO PRN (07:32)
[2021-07-01] MEDS ORDERED: oxyCODONE HCL IR 5 MG TAB (IMMEDIATE RELEASE) PO PRN (09:27)
[2021-07-01] MEDS ORDERED: MoRPHine SULFATE 2 MG/ML CARP IV PRN (09:29)
[2021-07-01] MEDS: DOCUSATE SODIUM 100 MG CAP PO SCH ×2 (09:31→21:33)
[2021-07-01] MEDS: diazePAM 2 MG TABLET PO SCH ×2 (09:31→21:33)
[2021-07-01] MEDS: ATORVASTATIN 40 MG TAB PO SCH (09:31)
[2021-07-01] MEDS: CLOPIDOGREL BISULFATE 75 MG TAB PO SCH (09:31)
[2021-07-01] MEDS: LOSARTAN POTASSIUM 25 MG TAB PO SCH (09:31)
[2021-07-01] MEDS: ASPIRIN 81 MG ECTAB PO SCH (09:31)
[2021-07-01] MEDS: ROFLUMILAST 500 MCG TAB PO SCH (09:32)
[2021-07-01] MEDS: METOPROLOL SUCC 50MG EXT REL TAB PO SCH (09:32)
[2021-07-01] MEDS: FLUTICASONE/VILANTEROL 100/25MCG 14 PUFFS/INHALER INH SCH (09:32)
[2021-07-01] MEDS: PANTOprazole 40 MG TAB PO SCH (09:32)
[2021-07-01] MEDS: MAGNESIUM OXIDE 400 MG TAB PO SCH (09:32)
[2021-07-01] MEDS: DICLOFENAC SOD 1% GEL 100 GM TUBE EXT SCH ×4 (09:32→21:33)
[2021-07-01] MEDS: UMECLIDINIUM BROMIDE 62.5MCG/BLISTER 7 PUFFS/INHALER INH SCH (09:33)
[2021-07-01] MEDS: oxyCODONE HCL IR 5 MG TAB (IMMEDIATE RELEASE) PO PRN (10:06)
--- NOTE | 2021-07-01 10:09 | Orthopedic Consultation ---
Date of Consultation July 01, 2021 Assessment & Plan (1) Closed compression fracture of L3 vertebra: Patient presents with acute onset of lower back pain. She has mild compression deformity of L3 compared to previous films from January 2021. The minimal compression fractures not meet criteria for any type of bracing or surgical intervention I recommend continued pain control and mobilization with physical therapy. She does live by herself and if she is not able to care for herself may need to go to senior care facility until the pain begins to subside she should follow-up with our office approximately 2 weeks from discharge for repeat x-rays. She also should be treated for osteoporosis as this was a minimal activity resulting in fracture. Please contact us with any other questions or concerns. History of Present Illness Attending Physician: Ganesh Han MD History of Present Illness Patient is a 75-year-old female history of COPD, osteoporosis, vascular disease, and chronic lower back pain. Approximately 6 days ago she was watering plants on her front porch leaning forward. She felt something pop in her back and had a hard time straightening up and ambulance was called. She is able to stand and walk but eventually was brought up by family to the emergency room. She was treated and released. Her pain continued to be quite intense and return to the emergency room. She was seen in the ED here [facility] and due to her lack of pain control and poor oxygenation was admitted to the medical service. She has had multiple CT scans and was noted that she had a new compression deformity of L3. All of her pain is in the lower portion of the back itself. The pain increases with any type of motion or leaning forward. She is not having any radicular complaints. She is not having any numbness, tingling, or paresthesias. No change in bladder or bowel function. Allergies Allergy/AdvReac Type Severity Reaction Status Date / Time duloxetine [From Cymbalta] Allergy Mild Rash Verified 05/27/21 08:48 naproxen AdvReac Mild GI SYMPTOMS Verified 05/27/21 08:48 Home Medications Medication Instructions Recorded Confirmed Type atorvastatin 40 mg tablet (Lipitor) 40 mg PO QAM 12/14/18 06/30/21 History losartan 25 mg tablet (Cozaar) 25 mg PO QAM 12/14/18 06/30/21 History magnesium oxide 400 mg PO QAM 02/13/19 06/30/21 History metoprolol succinate 50 mg 50 mg PO QAM 04/22/19 06/30/21 History tablet,extended release 24 hr (Toprol XL) Oxygen Home #1 ea 11/05/19 06/30/21 Rx tramadol 50 mg tablet (Ultram) 50 mg PO Q6H PRN 01/22/20 06/30/21 History roflumilast 250 mcg tablet 250 mcg PO QAM #90 tab 06/30/20 06/30/21 Rx (Daliresp) aspirin 81 mg tablet,delayed 81 mg PO QAM 01/19/21 06/30/21 History release (Aspirin Low Dose) multivitamin with minerals-folic 2 tab PO QAM 03/04/21 06/30/21 History acid 200 mcg chewable tablet (Multivitamin Gummies) ipratropium 0.5 mg-albuterol 3 mg 3 ml INHALATION Q4H PRN 03/22/21 06/30/21 H istory (2.5 mg base)/3 mL nebulization soln albuterol sulfate 90 mcg/actuation 2 puff INHALATION QID PRN #8.5 g 05/05/21 06/30/21 Rx aerosol inhaler (Ventolin HFA) budesonide-formoterol HFA 160 2 puff INH BID 05/27/21 06/30/21 History mcg-4.5 mcg/actuation aerosol inhaler (Symbicort) diclofenac sodium 1 % topical gel 4 g TOPICAL QID 05/27/21 06/30/21 History ondansetron 4 mg disintegrating 4 mg TRANSLINGUAL Q6H PRN 05/27/21 06/30/21 History tablet pantoprazole 40 mg tablet,delayed 40 mg PO QAM 05/27/21 06/30/21 History release (Protonix) ropinirole 0.25 mg tablet 0.25 mg PO HS 05/27/21 06/30/21 History clopidogrel 75 mg tablet (Plavix) 75 mg PO DAILY #30 tab 06/02/21 06/30/21 Rx docusate sodium 100 mg capsule 100 mg PO BID #30 cap 06/02/21 06/30/21 Rx cyclobenzaprine 5 mg tablet 5 mg PO TID PRN #10 tab 06/24/21 06/30/21 Rx umeclidinium 62.5 mcg/actuation 1 inh INHALATION DAILY 06/30/21 06/30/21 History blister powder for inhalation Patient History Medical History Aneurysm of infrarenal abdominal aorta Anxiety BCC (basal cell carcinoma of skin) on left side of face---"s/p MOHS surgery" Chronic diastolic heart failure Chronic respiratory failure with hypoxia and hypercapnia Chronic respiratory failure with hypoxia, on home O2 therapy OXYGEN 3L/MIN VIA NC COPD (chronic obstructive pulmonary disease) Degenerative disc disease Dissection of left carotid artery Dyslipidemia Fibromyalgia GERD (gastroesophageal reflux disease) Gram-positive bacteremia Hypertension Obesity hypoventilation syndrome On home oxygen therapy 3L N/C at all times Osteoporosis Sinus tachycardia SOB (shortness of breath) on exertion Tremor of both hands Wrist fracture, left Surgical History History of bilateral cataract extraction History of carpal tunnel surgery of right wrist History of colonoscopy with polypectomy History of esophagogastroduodenoscopy (EGD) History of left breast biopsy benign History of mandibular surgery jaw fx History of repair of left rotator cuff History of repair of right rotator cuff History of tooth extraction S/P Mohs surgery for basal cell carcinoma Status post appendectomy Status post excision of lipoma removed off neck x2 Status post hysterectomy Status post repair of ventral hernia Family History Grandfather (Maternal) Family hx of colon cancer Father FH: kidney cancer Family/Other Family history of diabetes mellitus nephew Other Kidney disease Lung disease No family history of adverse response to anesthesia Social History Smoking Status: Former smoker Tobacco Type: Cigarettes Cigarettes Per Day: unsure when she quit; Second Hand Exposure: No; Do You Dip or Chew Tobacco: No; Tobacco Cessation Education Requested by Patient: No Hx Alcohol Use: Yes Alcohol type: hard liquor Hx Substance Use: No Preferred Language: Lebanese Communication Ability: Effective Cancer Registry Coordinator Required: No Beliefs That Will Affect Care: None marital status: / Current Living Situation: Alone current occupational status: retired How many Children do You have: 3 Other Information That Helps Us Care for You: No Feels Safe at Home: Yes Safety Concerns: Feels Safe At This Time Assistive Devices: Cane Physical Exam Physical Exam: On exam she is alert and oriented. She is a bit of a poor historian. She is able to roll onto her side for examination but this increases tenderness. She is nontender to palpation or percussion along the lower portion of lumbar spine. She has full range of motion of the hips and knees. Her lower extremity motor exam reveals no focal atrophy her strength 5 out of 5 to detailed muscle testing without exception. Sensations intact to light touch proprioception is also intact her gait was not observed. Results & Data ([facility]) Vital Signs (Past 12 Hours) Vital Signs Temp Pulse Resp BP Pulse Ox 07/01/21 08:03 35.2 C L 94 H 16 126/80 95 (1) Closed compression fracture of L3 vertebra Encounter type: initial encounter Qualified Code(s): S32.030A - Wedge compression fracture of third lumbar vertebra, initial encounter for closed fracture
[2021-07-01] MEDS: LIDOCAINE 5% 1 PATCH TD SCH (10:29)
[2021-07-01] MEDS: ACETAMINOPHEN 325 MG TAB PO SCH ×3 (10:33→23:06)
--- NOTE | 2021-07-01 19:31 | Hospitalist Progress Note ---
Date of Service July 01, 2021 delayed entry date of service noted above Assessment & Plan (1) Closed compression fracture of L3 vertebra: (2) Ambulatory dysfunction: (3) Chronic respiratory failure with hypoxia and hypercapnia: (4) COPD (chronic obstructive pulmonary disease): (5) Chronic diastolic heart failure: (6) Fibromyalgia: (7) Hypertension: (8) Dissection of left carotid artery: Plan: (1) Back pain: (2) Closed compression fracture of L3 vertebra: (3) Ambulatory dysfunction: (4) Chronic respiratory failure with hypoxia and hypercapnia: (5) COPD (chronic obstructive pulmonary disease): (6) Chronic diastolic heart failure: (7) Fibromyalgia: (8) Hypertension: (9) Dissection of left carotid artery: Plan: per admitting service notes: This is a 75-year-old female who has significant past medical history of chronic hypoxemic and hypercapnic respiratory failure on 3 L of O2 at baseline, COPD, HTN, HLD, CHF, known infrarenal abdominal aortic aneurysm, GERD, fibromyalgia, essential tremor, History of left carotid artery dissection who presents ED secondary to low back pain x6 days. Lumbar CT: Interval development of compression fracture deformity of L3. No evidence of traumatic malalignment. Acute back pain Close depression fracture of L3 vertebra Ambulatory dysfunction Orthopedic spine service consulted No surgical intervention at this point or bracing Continue pain control, PT OT Recommend follow-up with orthopedic spine clinic in 2 weeks for repeat x-rays Treat underlying osteoporosis still has back pain lidoderm patch, continue prn tramadol and oxycodone scheduled valium 2mg bid - monitor closely Chronic hypoxic respiratory failure with hypercapnia on 3 L of O2 COPD No acute exacerbation Continue Symbicort and Umeclidinium as well as Daliresp BiPAP at bedtime follows [facility] Chronic diastolic CHF HTN HLD Continue aspirin, statin, losartan and metoprolol No cardiac symptoms History of left carotid artery dissection Found incidentally during recent admission in May Was seen and evaluated by vascular surgery, no acute intervention Started on Plavix and encouraged to take for at least 30 day Will need to make sure she has vascular surgery follow-up at discharge Infrarenal abdominal aortic aneurysm Noted on imaging Previously seen on prior imaging Currently 3.2 cm Will need follow-up with vascular surgery as outpatient DVT ppx: Lovenox Dispo: Med/Surg PCP: Paige Bartholomew MD FULL CODE Admission and Anticipated Discharge Date Admission Date: June 30, 2021 Subjective ff up for back pain, etc seen resting in bed, not in distress still has significant discomfort on her lower back has difficulty with ambulation denies weakness/numbness of Lower ext no chest pain, dyspnea, palpitations, dizziness no other symptoms Review of Systems Review of Systems: all noted and negative except for above Physical Exam Physical Exam: General- oriented x 3, not in distress, speaks in sentences with no effort or accessory muscle use Head- atraumatic Eyes- PERRL, EOMI, anicteric ENT- oropharynx clear Neck- supple, no JVD, no adenopathy, no thyromegaly; carotids +2/2, no bruits appreciated Lungs- clear to auscultation bilaterally, no rales/wheezes Heart- normal rate, irregularly irregular rhythm; no murmur, no gallop, no rub appreciated Abdomen- normal bowel sounds, nondistended, soft, nontender, no masses or hepatosplenomegaly Extremities- no pretibial edema, no calf tenderness; peripheral pulses intact Back- (+) moderated tenderness to the lower back region Neuro- alert, oriented x 3; CN 2-12 grossly intact; motor 5/5 bilaterally;sensation 100% on all extremities; no other gross focal neurologic deficits Skin- warm & dry Results & Data Results & Data ([facility]) Vital Signs (Past 12 Hours) Vital Signs Temp Pulse Resp BP BP Pulse Ox 07/01/21 16:06 36.5 C 72 16 99/57 L 99 07/01/21 08:03 35.2 C L 94 H 16 126/80 95 all noted and reviewed including below (1) Closed compression fracture of L3 vertebra Encounter type: initial encounter Qualified Code(s): S32.030A - Wedge compression fracture of third lumbar vertebra, initial encounter for closed fracture (2) COPD (chronic obstructive pulmonary disease) COPD type: unspecified COPD Qualified Code(s): J44.9 - Chronic obstructive pulmonary disease, unspecified (3) Hypertension Hypertension type: unspecified Qualified Code(s): I10 - Essential (primary) hypertension
[2021-07-01] MEDS: ENOXAPARIN INJ 40 MG/0.4 ML SYR SQ SCH (21:33)
[2021-07-01] MEDS: rOPINIRole HCL 0.25 MG TABLET PO SCH (21:34)
[2021-07-02] MEDS: oxyCODONE HCL IR 5 MG TAB (IMMEDIATE RELEASE) PO PRN ×2 (04:22→16:36)
[2021-07-02] MEDS: ACETAMINOPHEN 325 MG TAB PO SCH ×4 (05:31→23:13)
[2021-07-02] MEDS: diazePAM 2 MG TABLET PO SCH ×2 (08:08→21:02)
[2021-07-02] MEDS: MAGNESIUM OXIDE 400 MG TAB PO SCH (08:08)
[2021-07-02] MEDS: DOCUSATE SODIUM 100 MG CAP PO SCH ×2 (08:08→21:04)
[2021-07-02] MEDS: PANTOprazole 40 MG TAB PO SCH (08:08)
[2021-07-02] MEDS: CLOPIDOGREL BISULFATE 75 MG TAB PO SCH (08:08)
[2021-07-02] MEDS: ROFLUMILAST 500 MCG TAB PO SCH (08:09)
[2021-07-02] MEDS: ASPIRIN 81 MG ECTAB PO SCH (08:09)
[2021-07-02] MEDS: ATORVASTATIN 40 MG TAB PO SCH (08:09)
[2021-07-02] MEDS: LIDOCAINE 5% 1 PATCH TD SCH (08:23)
[2021-07-02] MEDS: FLUTICASONE/VILANTEROL 100/25MCG 14 PUFFS/INHALER INH SCH (08:26)
[2021-07-02] MEDS: UMECLIDINIUM BROMIDE 62.5MCG/BLISTER 7 PUFFS/INHALER INH SCH (08:26)
[2021-07-02] MEDS: DICLOFENAC SOD 1% GEL 100 GM TUBE EXT SCH ×5 (08:27→21:03)
[2021-07-02] MEDS: METOPROLOL SUCC 50MG EXT REL TAB PO SCH (08:28)
[2021-07-02] MEDS: LOSARTAN POTASSIUM 25 MG TAB PO SCH (08:28)
--- NOTE | 2021-07-02 18:10 | Hospitalist Progress Note ---
Date of Service July 02, 2021 Assessment & Plan (1) Back pain: (2) Closed compression fracture of L3 vertebra: (3) Ambulatory dysfunction: (4) Chronic respiratory failure with hypoxia and hypercapnia: (5) COPD (chronic obstructive pulmonary disease): (6) Chronic diastolic heart failure: (7) Fibromyalgia: (8) Hypertension: (9) Dissection of left carotid artery: Plan: per admitting service notes: This is a 75-year-old female who has significant past medical history of chronic hypoxemic and hypercapnic respiratory failure on 3 L of O2 at baseline, COPD, HTN, HLD, CHF, known infrarenal abdominal aortic aneurysm, GERD, fibromyalgia, essential tremor, History of left carotid artery dissection who presents ED secondary to low back pain x6 days. Lumbar CT: Interval development of compression fracture deformity of L3. No evidence of traumatic malalignment. Acute back pain Close depression fracture of L3 vertebra Ambulatory dysfunction Orthopedic spine service consulted No surgical intervention at this point or bracing Continue pain control, PT OT Recommend follow-up with orthopedic spine clinic in 2 weeks for repeat x-rays Treat underlying osteoporosis Improving Continue lidoderm patch, continue prn tramadol and oxycodone schedule valium 2mg bid - monitor closely Vitamin D deficiency Level 23 Replace vitamin D Chronic hypoxic respiratory failure with hypercapnia on 3 L of O2 COPD No acute exacerbation Continue Symbicort and Umeclidinium as well as Daliresp BiPAP at bedtime follows [facility] Chronic diastolic CHF HTN HLD Continue aspirin, statin, losartan and metoprolol No cardiac symptoms History of left carotid artery dissection Found incidentally during recent admission in May Was seen and evaluated by vascular surgery, no acute intervention Started on Plavix and encouraged to take for at least 30 day Will need to make sure she has vascular surgery follow-up at discharge Infrarenal abdominal aortic aneurysm Noted on imaging Previously seen on prior imaging Currently 3.2 cm Will need follow-up with vascular surgery as outpatient DVT ppx: Lovenox Dispo: Med/Surg PCP: Paige Bartholomew MD FULL CODE Admission and Anticipated Discharge Date Admission Date: June 30, 2021 Subjective ff up for back pain, etc seen resting in chair, comfortable in good spirits states back pain is better able to ambulate in the room with mild discomfort no chest pain, dyspnea, palpitations, dizziness no other symptoms Review of Systems Review of Systems: all noted and negative except for above Physical Exam Physical Exam: General- oriented x 3, not in distress, speaks in sentences with no effort or accessory muscle use Eyes- anicteric Neck- no JVD Lungs- clear BS BL no rales Heart- normal rate, regular rhythm; no murmurs Abdomen- normal bowel sounds, nondistended, soft, nontender Extremities- no pretibial edema, no calf tenderness Neuro- alert, oriented x 3; no gross focal neurologic deficits Skin- warm & dry Results & Data Results & Data ([facility]) Vital Signs (Past 12 Hours) Vital Signs Temp Pulse Pulse Resp BP Pulse Ox 07/02/21 16:00 37.5 C 101 H 20 110/70 97 07/02/21 12:06 36.4 C L 86 20 126/72 99 07/02/21 08:19 36.6 C 72 18 118/60 100 all noted and reviewed including below (1) Closed compression fracture of L3 vertebra Encounter type: initial encounter Qualified Code(s): S32.030A - Wedge compression fracture of third lumbar vertebra, initial encounter for closed fracture (2) Back pain Back pain laterality: left Back pain location: low back pain Chronicity: acute Sciatica presence: without sciatica Qualified Code(s): M54.5 - Low back pain (3) COPD (chronic obstructive pulmonary disease) COPD type: unspecified COPD Qualified Code(s): J44.9 - Chronic obstructive pulmonary disease, unspecified (4) Hypertension Hypertension type: unspecified Qualified Code(s): I10 - Essential (primary) hypertension
[2021-07-02] MEDS: rOPINIRole HCL 0.25 MG TABLET PO SCH (21:03)
[2021-07-02] MEDS: ENOXAPARIN INJ 40 MG/0.4 ML SYR SQ SCH (21:03)
[2021-07-03] MEDS: oxyCODONE HCL IR 5 MG TAB (IMMEDIATE RELEASE) PO PRN ×2 (04:22→12:44)
[2021-07-03] MEDS: ACETAMINOPHEN 325 MG TAB PO SCH ×3 (05:37→17:37)
[2021-07-03] MEDS: LOSARTAN POTASSIUM 25 MG TAB PO SCH (08:35)
[2021-07-03] MEDS: ASPIRIN 81 MG ECTAB PO SCH (08:44)
[2021-07-03] MEDS: ATORVASTATIN 40 MG TAB PO SCH (08:44)
[2021-07-03] MEDS: METOPROLOL SUCC 50MG EXT REL TAB PO SCH (08:45)
[2021-07-03] MEDS: PANTOprazole 40 MG TAB PO SCH (08:45)
[2021-07-03] MEDS: diazePAM 2 MG TABLET PO SCH ×2 (08:45→21:10)
[2021-07-03] MEDS: CLOPIDOGREL BISULFATE 75 MG TAB PO SCH (08:45)
[2021-07-03] MEDS: ROFLUMILAST 500 MCG TAB PO SCH (08:45)
[2021-07-03] MEDS: MAGNESIUM OXIDE 400 MG TAB PO SCH (08:45)
[2021-07-03] MEDS: DOCUSATE SODIUM 100 MG CAP PO SCH ×2 (08:47→21:10)
[2021-07-03] MEDS: LIDOCAINE 5% 1 PATCH TD SCH (11:04)
[2021-07-03] MEDS: DICLOFENAC SOD 1% GEL 100 GM TUBE EXT SCH ×4 (11:05→21:10)
[2021-07-03] MEDS: UMECLIDINIUM BROMIDE 62.5MCG/BLISTER 7 PUFFS/INHALER INH SCH (11:06)
[2021-07-03] MEDS: FLUTICASONE/VILANTEROL 100/25MCG 14 PUFFS/INHALER INH SCH (11:08)
--- NOTE | 2021-07-03 17:58 | Hospitalist Progress Note ---
Date of Service July 03, 2021 Assessment & Plan (1) Back pain: (2) Closed compression fracture of L3 vertebra: (3) Ambulatory dysfunction: (4) Chronic respiratory failure with hypoxia and hypercapnia: (5) COPD (chronic obstructive pulmonary disease): (6) Chronic diastolic heart failure: (7) Fibromyalgia: (8) Hypertension: (9) Dissection of left carotid artery: Plan: per admitting service notes: This is a 75-year-old female who has significant past medical history of chronic hypoxemic and hypercapnic respiratory failure on 3 L of O2 at baseline, COPD, HTN, HLD, CHF, known infrarenal abdominal aortic aneurysm, GERD, fibromyalgia, essential tremor, History of left carotid artery dissection who presents ED secondary to low back pain x6 days. Lumbar CT: Interval development of compression fracture deformity of L3. No evidence of traumatic malalignment. Acute back pain Close depression fracture of L3 vertebra Ambulatory dysfunction Orthopedic spine service consulted No surgical intervention at this point or bracing Continue pain control, PT OT Recommend follow-up with orthopedic spine clinic in 2 weeks for repeat x-rays Treat underlying osteoporosis Pain well managed Continue lidoderm patch, continue prn tramadol and oxycodone scheduled valium 2mg bid - monitor closely Vitamin D deficiency Level 23 Replace vitamin D Chronic hypoxic respiratory failure with hypercapnia on 3 L of O2 COPD No acute exacerbation Continue Symbicort and Umeclidinium as well as Daliresp BiPAP at bedtime follows [facility] Chronic diastolic CHF HTN HLD Continue aspirin, statin, losartan and metoprolol No cardiac symptoms History of left carotid artery dissection Found incidentally during recent admission in May Was seen and evaluated by vascular surgery, no acute intervention Started on Plavix and encouraged to take for at least 30 day Will need to make sure she has vascular surgery follow-up at discharge Infrarenal abdominal aortic aneurysm Noted on imaging Previously seen on prior imaging Currently 3.2 cm Will need follow-up with vascular surgery as outpatient DVT ppx: Lovenox Dispo: Med/Surg PCP: Paige Bartholomew MD FULL CODE Admission and Anticipated Discharge Date Admission Date: July 03, 2021 Subjective Follow-up for back pain, etc. Seen resting in bed, comfortable, not in distress In good spirits States low back pain is adequately managed Ambulated today with no problems, minimal pain No headache, dizziness, chest pain or palpitations, abdominal pain, fevers or chills, nausea vomiting No other symptoms Review of Systems Review of Systems: all noted and negative except for above Physical Exam Physical Exam: General- oriented x 3, not in distress, speaks in sentences with no effort or accessory muscle use Eyes- anicteric Neck- no JVD Lungs- clear BS BL No crackles or wheezing Heart- normal rate, regular rhythm; no murmurs Abdomen- normal bowel sounds, nondistended, soft, no tenderness Extremities- no pretibial edema, no calf tenderness Neuro- alert, oriented x 3; no gross focal neurologic deficits Skin- warm & dry Results & Data Results & Data ([facility]) Vital Signs (Past 12 Hours) Vital Signs Temp Pulse Resp BP Pulse Ox 07/03/21 15:03 36.5 C 94 H 16 111/65 100 07/03/21 12:20 36.8 C 97 H 22 124/81 97 07/03/21 07:15 36.9 C 92 H 21 104/68 97 all noted and reviewed including below (1) Back pain Back pain laterality: left Back pain location: low back pain Chronicity: acute Sciatica presence: without sciatica Qualified Code(s): M54.5 - Low back pain (2) Closed compression fracture of L3 vertebra Encounter type: initial encounter Qualified Code(s): S32.030A - Wedge compression fracture of third lumbar vertebra, initial encounter for closed fracture (3) COPD (chronic obstructive pulmonary disease) COPD type: unspecified COPD Qualified Code(s): J44.9 - Chronic obstructive pulmonary disease, unspecified (4) Hypertension Hypertension type: unspecified Qualified Code(s): I10 - Essential (primary) hypertension
[2021-07-03] MEDS ORDERED: ERGOCALCIFEROL 50,000 UNITS 1250 MCG CAP PO SCH (21:00)
[2021-07-03] MEDS: rOPINIRole HCL 0.25 MG TABLET PO SCH (21:10)
[2021-07-03] MEDS: ENOXAPARIN INJ 40 MG/0.4 ML SYR SQ SCH (21:10)
[2021-07-04] MEDS: oxyCODONE HCL IR 5 MG TAB (IMMEDIATE RELEASE) PO PRN ×2 (01:30→18:47)
[2021-07-04] MEDS: traMADol HCL 50 MG TABLET PO PRN ×2 (06:44→20:26)
[2021-07-04] MEDS: ACETAMINOPHEN 325 MG TAB PO PRN ×3 (07:26→18:48)
[2021-07-04] MEDS: LIDOCAINE 5% 1 PATCH TD SCH (08:49)
[2021-07-04] MEDS: ROFLUMILAST 500 MCG TAB PO SCH (09:46)
[2021-07-04] MEDS: METOPROLOL SUCC 50MG EXT REL TAB PO SCH (09:47)
[2021-07-04] MEDS: ATORVASTATIN 40 MG TAB PO SCH (09:47)
[2021-07-04] MEDS: diazePAM 2 MG TABLET PO SCH ×2 (09:47→20:26)
[2021-07-04] MEDS: PANTOprazole 40 MG TAB PO SCH (09:47)
[2021-07-04] MEDS: MAGNESIUM OXIDE 400 MG TAB PO SCH (09:47)
[2021-07-04] MEDS: DICLOFENAC SOD 1% GEL 100 GM TUBE EXT SCH ×5 (09:47→20:19)
[2021-07-04] MEDS: CLOPIDOGREL BISULFATE 75 MG TAB PO SCH (09:47)
[2021-07-04] MEDS: LOSARTAN POTASSIUM 25 MG TAB PO SCH (09:47)
[2021-07-04] MEDS: DOCUSATE SODIUM 100 MG CAP PO SCH ×2 (09:48→20:25)
[2021-07-04] MEDS: UMECLIDINIUM BROMIDE 62.5MCG/BLISTER 7 PUFFS/INHALER INH SCH (09:52)
[2021-07-04] MEDS: FLUTICASONE/VILANTEROL 100/25MCG 14 PUFFS/INHALER INH SCH (09:52)
[2021-07-04] MEDS: ASPIRIN 81 MG ECTAB PO SCH (10:47)
--- NOTE | 2021-07-04 12:53 | Hospitalist Progress Note ---
Date of Service July 04, 2021 Assessment & Plan (1) Back pain: (2) Closed compression fracture of L3 vertebra: (3) Ambulatory dysfunction: (4) Chronic respiratory failure with hypoxia and hypercapnia: (5) COPD (chronic obstructive pulmonary disease): (6) Chronic diastolic heart failure: (7) Fibromyalgia: (8) Hypertension: (9) Dissection of left carotid artery: Plan: per admitting service notes: This is a 75-year-old female who has significant past medical history of chronic hypoxemic and hypercapnic respiratory failure on 3 L of O2 at baseline, COPD, HTN, HLD, CHF, known infrarenal abdominal aortic aneurysm, GERD, fibromyalgia, essential tremor, History of left carotid artery dissection who presents ED secondary to low back pain x6 days. Lumbar CT: Interval development of compression fracture deformity of L3. No evidence of traumatic malalignment. Acute back pain Close depression fracture of L3 vertebra Ambulatory dysfunction Orthopedic spine service consulted No surgical intervention at this point or bracing Pain adequately managed Continue lidoderm patch, continue prn tramadol and oxycodone scheduled valium 2mg bid - monitor closely Continue pain control, PT OT Recommend follow-up with orthopedic spine clinic in 2 weeks for repeat x-rays Treat underlying osteoporosis Awaiting acceptance to rehab Vitamin D deficiency Level 23 Vitamin D 50,000 units every week x4 weeks, then repeat vitamin D levels Chronic hypoxic respiratory failure with hypercapnia on 3 L of O2 COPD No acute exacerbation Continue Symbicort and Umeclidinium as well as Daliresp BiPAP at bedtime follows [facility] Chronic diastolic CHF HTN HLD Continue aspirin, statin, losartan and metoprolol No cardiac symptoms History of left carotid artery dissection Found incidentally during recent admission in May Was seen and evaluated by vascular surgery, no acute intervention Started on Plavix and encouraged to take for at least 30 day Will need to make sure she has vascular surgery follow-up at discharge Infrarenal abdominal aortic aneurysm Noted on imaging Previously seen on prior imaging Currently 3.2 cm Will need follow-up with vascular surgery as outpatient DVT ppx: Lovenox Dispo: Med/Surg PCP: Paige Bartholomew MD FULL CODE Admission and Anticipated Discharge Date Admission Date: July 03, 2021 Subjective Follow-up for back pain, etc. Seen sitting up in bed, comfortable, watching TV, in good spirits States back pain continue to improve Adequately managed with pain medication Ambulating in the room with no problems No chest pain, shortness of breath, palpitations, dizziness, abdominal pain, nausea vomiting, change in urination or bowel movement No other symptoms Review of Systems Review of Systems: all noted and negative except for above Physical Exam Physical Exam: General- oriented x 3, not in distress, speaks in sentences with no effort or accessory muscle use Eyes- anicteric Neck- no JVD Lungs- clear to auscultation bilaterally, no crackles or wheezing Heart- normal rate, regular rhythm; no murmurs Abdomen- normal bowel sounds, nondistended, soft, nontender Extremities- no pretibial edema, no calf tenderness Back-no tenderness Neuro- alert, oriented x 3; no gross focal neurologic deficits Skin- warm & dry Results & Data Results & Data ([facility]) Vital Signs (Past 12 Hours) Vital Signs Temp Pulse Resp BP Pulse Ox 07/04/21 07:48 36.8 C 87 18 133/61 99 all noted and reviewed including below (1) Back pain Back pain laterality: left Back pain location: low back pain Chronicity: acute Sciatica presence: without sciatica Qualified Code(s): M54.5 - Low back pain (2) Closed compression fracture of L3 vertebra Encounter type: initial encounter Qualified Code(s): S32.030A - Wedge compression fracture of third lumbar vertebra, initial encounter for closed fracture (3) COPD (chronic obstructive pulmonary disease) COPD type: unspecified COPD Qualified Code(s): J44.9 - Chronic obstructive pulmonary disease, unspecified (4) Hypertension Hypertension type: unspecified Qualified Code(s): I10 - Essential (primary) hypertension
[2021-07-04] MEDS: rOPINIRole HCL 0.25 MG TABLET PO SCH (20:27)
[2021-07-04] MEDS: ENOXAPARIN INJ 40 MG/0.4 ML SYR SQ SCH (21:30)
[2021-07-05] MEDS: oxyCODONE HCL IR 5 MG TAB (IMMEDIATE RELEASE) PO PRN ×2 (01:37→20:20)
[2021-07-05] MEDS: traMADol HCL 50 MG TABLET PO PRN ×2 (07:09→19:18)
[2021-07-05] MEDS: METOPROLOL SUCC 50MG EXT REL TAB PO SCH (08:27)
[2021-07-05] MEDS: ATORVASTATIN 40 MG TAB PO SCH (08:27)
[2021-07-05] MEDS: MAGNESIUM OXIDE 400 MG TAB PO SCH (08:27)
[2021-07-05] MEDS: ROFLUMILAST 500 MCG TAB PO SCH (08:28)
[2021-07-05] MEDS: DOCUSATE SODIUM 100 MG CAP PO SCH ×2 (08:28→20:21)
[2021-07-05] MEDS: LOSARTAN POTASSIUM 25 MG TAB PO SCH (08:29)
[2021-07-05] MEDS: CLOPIDOGREL BISULFATE 75 MG TAB PO SCH (08:29)
[2021-07-05] MEDS: DICLOFENAC SOD 1% GEL 100 GM TUBE EXT SCH ×4 (08:29→20:21)
[2021-07-05] MEDS: PANTOprazole 40 MG TAB PO SCH (08:29)
[2021-07-05] MEDS: ASPIRIN 81 MG ECTAB PO SCH (08:29)
[2021-07-05] MEDS: LIDOCAINE 5% 1 PATCH TD SCH (08:30)
[2021-07-05] MEDS: FLUTICASONE/VILANTEROL 100/25MCG 14 PUFFS/INHALER INH SCH (08:30)
[2021-07-05] MEDS: UMECLIDINIUM BROMIDE 62.5MCG/BLISTER 7 PUFFS/INHALER INH SCH (08:31)
[2021-07-05] MEDS: diazePAM 2 MG TABLET PO SCH (09:26)
--- NOTE | 2021-07-05 11:42 | Hospitalist Progress Note ---
Date of Service July 05, 2021 Assessment & Plan (1) Back pain: (2) Closed compression fracture of L3 vertebra: (3) Ambulatory dysfunction: (4) Chronic respiratory failure with hypoxia and hypercapnia: (5) COPD (chronic obstructive pulmonary disease): (6) Chronic diastolic heart failure: (7) Fibromyalgia: (8) Hypertension: (9) Dissection of left carotid artery: Plan: per admitting service notes: This is a 75-year-old female who has significant past medical history of chronic hypoxemic and hypercapnic respiratory failure on 3 L of O2 at baseline, COPD, HTN, HLD, CHF, known infrarenal abdominal aortic aneurysm, GERD, fibromyalgia, essential tremor, History of left carotid artery dissection who presents ED secondary to low back pain x6 days. Lumbar CT: Interval development of compression fracture deformity of L3. No evidence of traumatic malalignment. Acute back pain Close depression fracture of L3 vertebra Ambulatory dysfunction Orthopedic spine service consulted No surgical intervention at this point or bracing Pain adequately managed Continue lidoderm patch, continue prn tramadol and oxycodone scheduled valium 2mg bid -titrate down to daily, then DC in 2 to 3 days Continue pain control, PT OT Recommend follow-up with orthopedic spine clinic in 2 weeks for repeat x-rays Treat underlying osteoporosis Awaiting acceptance to rehab Vitamin D deficiency Level 23 Vitamin D 50,000 units every week x4 weeks, then repeat vitamin D levels Chronic hypoxic respiratory failure with hypercapnia on 3 L of O2 COPD No acute exacerbation Continue Symbicort and Umeclidinium as well as Daliresp BiPAP at bedtime follows [facility] Chronic diastolic CHF HTN HLD Continue aspirin, statin, losartan and metoprolol No cardiac symptoms History of left carotid artery dissection Found incidentally during recent admission in May Was seen and evaluated by vascular surgery, no acute intervention Started on Plavix and encouraged to take for at least 30 day Will need to make sure she has vascular surgery follow-up at discharge Infrarenal abdominal aortic aneurysm Noted on imaging Previously seen on prior imaging Currently 3.2 cm Will need follow-up with vascular surgery as outpatient DVT ppx: Lovenox Dispo: Awaiting acceptance to SNF PCP: Paige Bartholomew MD FULL CODE Admission and Anticipated Discharge Date Admission Date: July 03, 2021 Subjective Follow-up for back pain, etc. Seen resting in bedside chair, comfortable, in good spirits States back pain continues to improve Ambulating better No other new symptoms Review of Systems Review of Systems: all noted and negative except for above Physical Exam Physical Exam: General- oriented x 3, not in distress, speaks in sentences with no effort or accessory muscle use Eyes- anicteric Neck- no JVD Lungs- clear BS bilaterally Heart- normal rate, regular rhythm; no murmurs Abdomen- normal bowel sounds, nondistended, soft, nontender Extremities- no pretibial edema, no calf tenderness Neuro- alert, oriented x 3; no gross focal neurologic deficits Skin- warm & dry Results & Data Results & Data ([facility]) Vital Signs (Past 12 Hours) Vital Signs Temp Pulse Pulse Resp BP BP Pulse Ox 07/05/21 07:00 36.5 C 88 16 138/68 98 07/04/21 23:57 36.8 C 98 H 16 147/76 H 99 all noted and reviewed including below (1) Back pain Back pain laterality: left Back pain location: low back pain Chronicity: acute Sciatica presence: without sciatica Qualified Code(s): M54.5 - Low back pain (2) Closed compression fracture of L3 vertebra Encounter type: initial encounter Qualified Code(s): S32.030A - Wedge compression fracture of third lumbar vertebra, initial encounter for closed fracture (3) COPD (chronic obstructive pulmonary disease) COPD type: unspecified COPD Qualified Code(s): J44.9 - Chronic obstructive pulmonary disease, unspecified (4) Hypertension Hypertension type: unspecified Qualified Code(s): I10 - Essential (primary) hypertension
[2021-07-05] MEDS: ACETAMINOPHEN 325 MG TAB PO PRN (12:38)
[2021-07-05] MEDS: rOPINIRole HCL 0.25 MG TABLET PO SCH (20:21)
[2021-07-05] MEDS: ENOXAPARIN INJ 40 MG/0.4 ML SYR SQ SCH (22:06)
[2021-07-06] MEDS: UMECLIDINIUM BROMIDE 62.5MCG/BLISTER 7 PUFFS/INHALER INH SCH (08:40)
[2021-07-06] MEDS: DOCUSATE SODIUM 100 MG CAP PO SCH ×2 (08:40→20:49)
[2021-07-06] MEDS: FLUTICASONE/VILANTEROL 100/25MCG 14 PUFFS/INHALER INH SCH (08:40)
[2021-07-06] MEDS: diazePAM 2 MG TABLET PO SCH (08:40)
[2021-07-06] MEDS: LIDOCAINE 5% 1 PATCH TD SCH (08:40)
[2021-07-06] MEDS: DICLOFENAC SOD 1% GEL 100 GM TUBE EXT SCH ×4 (08:40→20:49)
[2021-07-06] MEDS: ROFLUMILAST 500 MCG TAB PO SCH (08:41)
[2021-07-06] MEDS: CLOPIDOGREL BISULFATE 75 MG TAB PO SCH (08:43)
[2021-07-06] MEDS: ASPIRIN 81 MG ECTAB PO SCH (08:43)
[2021-07-06] MEDS: METOPROLOL SUCC 50MG EXT REL TAB PO SCH (08:44)
[2021-07-06] MEDS: MAGNESIUM OXIDE 400 MG TAB PO SCH (08:44)
[2021-07-06] MEDS: LOSARTAN POTASSIUM 25 MG TAB PO SCH (08:44)
[2021-07-06] MEDS: ATORVASTATIN 40 MG TAB PO SCH (08:44)
[2021-07-06] MEDS: PANTOprazole 40 MG TAB PO SCH (08:45)
[2021-07-06] MEDS: traMADol HCL 50 MG TABLET PO PRN (09:31)
--- NOTE | 2021-07-06 17:12 | Hospitalist Progress Note ---
Date of Service July 06, 2021 Assessment & Plan (1) Back pain: (2) Closed compression fracture of L3 vertebra: (3) Ambulatory dysfunction: (4) Chronic respiratory failure with hypoxia and hypercapnia: (5) COPD (chronic obstructive pulmonary disease): (6) Chronic diastolic heart failure: (7) Fibromyalgia: (8) Hypertension: (9) Dissection of left carotid artery: Plan: per admitting service notes: This is a 75-year-old female who has significant past medical history of chronic hypoxemic and hypercapnic respiratory failure on 3 L of O2 at baseline, COPD, HTN, HLD, CHF, known infrarenal abdominal aortic aneurysm, GERD, fibromyalgia, essential tremor, History of left carotid artery dissection who presents ED secondary to low back pain x6 days. Lumbar CT: Interval development of compression fracture deformity of L3. No evidence of traumatic malalignment. Acute back pain Close depression fracture of L3 vertebra Ambulatory dysfunction Orthopedic spine service consulted No surgical intervention at this point or bracing Pain adequately managed Continue lidoderm patch, continue prn tramadol and oxycodone scheduled valium 2mg bid -titrate down to daily, then DC in 2 to 3 days Continue pain control, PT OT Recommend follow-up with orthopedic spine clinic in 2 weeks for repeat x-rays Treat underlying osteoporosis Denies inpatient rehab Vitamin D deficiency Level 23 Vitamin D 50,000 units every week x4 weeks, then repeat vitamin D levels Chronic hypoxic respiratory failure with hypercapnia on 3 L of O2 COPD No acute exacerbation Continue Symbicort and Umeclidinium as well as Daliresp BiPAP at bedtime follows [facility] Chronic diastolic CHF HTN HLD Continue aspirin, statin, losartan and metoprolol No cardiac symptoms History of left carotid artery dissection Found incidentally during recent admission in May Was seen and evaluated by vascular surgery, no acute intervention Started on Plavix and encouraged to take for at least 30 day Will need to make sure she has vascular surgery follow-up at discharge Infrarenal abdominal aortic aneurysm Noted on imaging Previously seen on prior imaging Currently 3.2 cm Will need follow-up with vascular surgery as outpatient DVT ppx: Lovenox PCP: Paige Bartholomew MD FULL CODE Disposition Will discharge home with Admission and Anticipated Discharge Date Admission Date: July 03, 2021 Subjective Pt was seen and examined for follow-up of back pain Sitting in bed, resting comfortable with no distress Pt said that her pain is much better She was denies inpatient rehab She said that she walked with therapy today Denies any chest pain, palpitation, dizziness and SOB Review of Systems Review of Systems: All systems reviewed & are unremarkable except as noted in Subjective Physical Exam Physical Exam: General- No acute distress Head- atraumatic Eyes- PERRL, EOMI, ENT- oropharynx clear Neck- supple, no JVD Lungs- clear to auscultation Heart- regular rhythm; no murmur Abdomen- normal bowel sounds, soft, nontender Extremities- no calf tenderness Neuro- alert, oriented x 3; PERRL, EOMI; no facial palsy; no dysarthria Skin- warm & dry Results & Data Results & Data ([facility]) Vital Signs (Past 12 Hours) Vital Signs Temp Pulse Pulse Resp BP BP Pulse Ox 07/06/21 15:44 36.9 C 84 18 132/81 96 07/06/21 07:14 36.8 C 80 18 107/70 97 (1) Closed compression fracture of L3 vertebra Encounter type: initial encounter Qualified Code(s): S32.030A - Wedge compression fracture of third lumbar vertebra, initial encounter for closed fracture (2) Back pain Back pain laterality: left Back pain location: low back pain Chronicity: acute Sciatica presence: without sciatica Qualified Code(s): M54.5 - Low back pain (3) COPD (chronic obstructive pulmonary disease) COPD type: unspecified COPD Qualified Code(s): J44.9 - Chronic obstructive pulmonary disease, unspecified (4) Hypertension Hypertension type: unspecified Qualified Code(s): I10 - Essential (primary) hypertension
[2021-07-06] MEDS: rOPINIRole HCL 0.25 MG TABLET PO SCH (20:50)
[2021-07-06] MEDS: ENOXAPARIN INJ 40 MG/0.4 ML SYR SQ SCH (22:57)
[2021-07-07] MEDS: ACETAMINOPHEN 325 MG TAB PO PRN ×2 (05:00→18:46)
[2021-07-07] MEDS: oxyCODONE HCL IR 5 MG TAB (IMMEDIATE RELEASE) PO PRN ×2 (05:01→14:51)
[2021-07-07] MEDS: LOSARTAN POTASSIUM 25 MG TAB PO SCH (08:47)
[2021-07-07] MEDS: ASPIRIN 81 MG ECTAB PO SCH (08:47)
[2021-07-07] MEDS: PANTOprazole 40 MG TAB PO SCH (08:47)
[2021-07-07] MEDS: DOCUSATE SODIUM 100 MG CAP PO SCH ×2 (08:47→20:14)
[2021-07-07] MEDS: ATORVASTATIN 40 MG TAB PO SCH (08:47)
[2021-07-07] MEDS: ROFLUMILAST 500 MCG TAB PO SCH (08:47)
[2021-07-07] MEDS: CLOPIDOGREL BISULFATE 75 MG TAB PO SCH (08:47)
[2021-07-07] MEDS: METOPROLOL SUCC 50MG EXT REL TAB PO SCH (08:47)
[2021-07-07] MEDS: MAGNESIUM OXIDE 400 MG TAB PO SCH (08:47)
[2021-07-07] MEDS: LIDOCAINE 5% 1 PATCH TD SCH (08:48)
[2021-07-07] MEDS: FLUTICASONE/VILANTEROL 100/25MCG 14 PUFFS/INHALER INH SCH (08:48)
[2021-07-07] MEDS: DICLOFENAC SOD 1% GEL 100 GM TUBE EXT SCH ×4 (08:48→20:12)
[2021-07-07] MEDS: diazePAM 2 MG TABLET PO SCH (09:17)
[2021-07-07] MEDS: UMECLIDINIUM BROMIDE 62.5MCG/BLISTER 7 PUFFS/INHALER INH SCH (09:25)
--- NOTE | 2021-07-07 17:29 | Hospitalist Progress Note ---
Date of Service July 07, 2021 Assessment & Plan (1) Back pain: (2) Closed compression fracture of L3 vertebra: (3) Ambulatory dysfunction: (4) Chronic respiratory failure with hypoxia and hypercapnia: (5) COPD (chronic obstructive pulmonary disease): (6) Chronic diastolic heart failure: (7) Fibromyalgia: (8) Hypertension: (9) Dissection of left carotid artery: Plan: per admitting service notes: This is a 75-year-old female who has significant past medical history of chronic hypoxemic and hypercapnic respiratory failure on 3 L of O2 at baseline, COPD, HTN, HLD, CHF, known infrarenal abdominal aortic aneurysm, GERD, fibromyalgia, essential tremor, History of left carotid artery dissection who presents ED secondary to low back pain x6 days. Lumbar CT: Interval development of compression fracture deformity of L3. No evidence of traumatic malalignment. Acute back pain Close depression fracture of L3 vertebra Ambulatory dysfunction Orthopedic spine service consulted No surgical intervention at this point or bracing Pain adequately managed Continue lidoderm patch, continue prn tramadol and oxycodone scheduled valium 2mg bid -titrate down to daily, then DC in 2 to 3 days Continue pain control, PT OT Recommend follow-up with orthopedic spine clinic in 2 weeks for repeat x-rays Treat underlying osteoporosis Denies inpatient rehab Vitamin D deficiency Level 23 Vitamin D 50,000 units every week x4 weeks, then repeat vitamin D levels Chronic hypoxic respiratory failure with hypercapnia on 3 L of O2 COPD No acute exacerbation Continue Symbicort and Umeclidinium as well as Daliresp BiPAP at bedtime follows [facility] Chronic diastolic CHF HTN HLD Continue aspirin, statin, losartan and metoprolol No cardiac symptoms History of left carotid artery dissection Found incidentally during recent admission in May Was seen and evaluated by vascular surgery, no acute intervention Started on Plavix and encouraged to take for at least 30 day Will need to make sure she has vascular surgery follow-up at discharge Infrarenal abdominal aortic aneurysm Noted on imaging Previously seen on prior imaging Currently 3.2 cm Will need follow-up with vascular surgery as outpatient DVT ppx: Lovenox PCP: Paige Bartholomew MD FULL CODE Disposition Will discharge home with Admission and Anticipated Discharge Date Admission Date: July 03, 2021 Subjective Pt was seen and examined for follow-up of back pain Sitting in bed, resting comfortable with no distress Pt said that her pain improves She said that she walked with therapy today Denies any chest pain, palpitation, dizziness and SOB Review of Systems Review of Systems: All systems reviewed & are unremarkable except as noted in Subjective Physical Exam Physical Exam: General- No acute distress Head- atraumatic Eyes- PERRL, EOMI, ENT- oropharynx clear Neck- supple, no JVD Lungs- clear to auscultation Heart- regular rhythm; no murmur Abdomen- normal bowel sounds, soft, nontender Extremities- no calf tenderness Neuro- alert, oriented x 3; PERRL, EOMI; no facial palsy; no dysarthria Skin- warm & dry Results & Data Results & Data ([facility]) Vital Signs (Past 12 Hours) Vital Signs Temp Pulse Resp BP BP Pulse Ox 07/07/21 16:00 36.3 C L 99 H 18 139/83 93 07/07/21 11:02 36.9 C 91 H 17 124/81 93 07/07/21 07:20 36.8 C 94 H 16 128/81 95 (1) Closed compression fracture of L3 vertebra Encounter type: initial encounter Qualified Code(s): S32.030A - Wedge compression fracture of third lumbar vertebra, initial encounter for closed fracture (2) Back pain Back pain laterality: left Back pain location: low back pain Chronicity: acute Sciatica presence: without sciatica Qualified Code(s): M54.5 - Low back pain (3) COPD (chronic obstructive pulmonary disease) COPD type: unspecified COPD Qualified Code(s): J44.9 - Chronic obstructive pulmonary disease, unspecified (4) Hypertension Hypertension type: unspecified Qualified Code(s): I10 - Essential (primary) hypertension
[2021-07-07] MEDS: traMADol HCL 50 MG TABLET PO PRN (18:46)
[2021-07-07] MEDS: ENOXAPARIN INJ 40 MG/0.4 ML SYR SQ SCH (20:13)
[2021-07-07] MEDS: rOPINIRole HCL 0.25 MG TABLET PO SCH (20:13)
[2021-07-08] MEDS: oxyCODONE HCL IR 5 MG TAB (IMMEDIATE RELEASE) PO PRN ×2 (05:29→11:24)
[2021-07-08] MEDS: ACETAMINOPHEN 325 MG TAB PO PRN (05:31)
[2021-07-08] MEDS: FLUTICASONE/VILANTEROL 100/25MCG 14 PUFFS/INHALER INH SCH (09:00)
[2021-07-08] MEDS: UMECLIDINIUM BROMIDE 62.5MCG/BLISTER 7 PUFFS/INHALER INH SCH (09:00)
[2021-07-08] MEDS: ASPIRIN 81 MG ECTAB PO SCH (09:01)
[2021-07-08] MEDS: LIDOCAINE 5% 1 PATCH TD SCH (09:01)
[2021-07-08] MEDS: ATORVASTATIN 40 MG TAB PO SCH (09:01)
[2021-07-08] MEDS: DOCUSATE SODIUM 100 MG CAP PO SCH (09:01)
[2021-07-08] MEDS: DICLOFENAC SOD 1% GEL 100 GM TUBE EXT SCH ×2 (09:01→13:08)
[2021-07-08] MEDS: CLOPIDOGREL BISULFATE 75 MG TAB PO SCH (09:01)
[2021-07-08] MEDS: LOSARTAN POTASSIUM 25 MG TAB PO SCH (09:02)
[2021-07-08] MEDS: METOPROLOL SUCC 50MG EXT REL TAB PO SCH (09:02)
[2021-07-08] MEDS: MAGNESIUM OXIDE 400 MG TAB PO SCH (09:02)
[2021-07-08] MEDS: PANTOprazole 40 MG TAB PO SCH (09:02)
[2021-07-08] MEDS: ROFLUMILAST 500 MCG TAB PO SCH (09:02)
[2021-07-08] MEDS: diazePAM 2 MG TABLET PO SCH (09:06)
--- NOTE | 2021-07-09 08:56 | Discharge Summary ---
Date of Service July 08, 2021 Admission HPI Per Admitting Provider This is a 75-year-old female who has significant past medical history of chronic hypoxemic and hypercapnic respiratory failure on 3 L of O2 at baseline, COPD, HTN, HLD, CHF, known infrarenal abdominal aortic aneurysm, GERD, fibromyalgia, essential tremor, History of left carotid artery dissection who presents ED secondary to low back pain x6 days. On significance patient was watering her house plants when she bent over and felt a, "break." She admits to breaking many bones in the past and knew something was wrong. She was seen and evaluated by ED on the same day and imaging of lumbar spine was unrevealing. She was discharged to home on Flexeril as it was felt to be musculoskeletal. She lives alone at home and over the past 6 days has had been having difficulty ambulating and getting around on her own. She denies any new falls, but admits to pain being very severe. She feels she requires more help while at home given pain. She chronically has shortness of breath and feels this is at baseline. She also has a chronic productive cough with clear sputum. She denies any fever, chills, sweats, lightheadedness, dizziness, syncope, chest pain, palpitations, nausea, vomiting, abdominal pain, change in her bowel or urinary habits. She admits to being noncompliant with medications of the last few days due to being in pain. In ED she remained hemodynamically stable. She underwent imaging of her thoracic and lumbar spine which revealed a acute compression deformity of L3 a 20% without retropulsion. Also noted incidentally was noted 3.2 cm infrarenal aneurysm without rupture. In ED she received oral oxycodone with mild improvement. Admission Exam Per Admitting Provider Constitutional: Chronically ill Appearing female, vitals as above, NAD, sitting up in bed, good bed mobility, pleasant, conversing easily Head: Normocephalic, Atraumatic Eyes: PERRL, conjunctivae normal, anicteric sclerae ENMT: external ear and nose normal, oropharynx normal Neck: trachea midline, no thyromegaly normal visual inspection Respiratory: normal respiratory effort, on 3L of O2 via NC, decreased breath sounds throughout, lungs clear to auscultation, no wheeze, rales, rhonchi. Normal insp/exp effort, no accessory muscle use Cardiovascular: RRR, no murmur, no edema Vessels: no JVD or carotid bruit Chest: normal inspection of chest Abdomen: normal bowel sounds, soft, nontender, no hepatosplenomegaly Musculoskeletal: no cyanosis or clubbing, extremities motor strength 5/5 Skin: no rashes, warm and dry normal turgor Neurologic: PERRL, EOMI, accommodation nl, no face palsy, no dysarthria CN's II-XI intact bilaterally and moves all extremities Psychiatric: A+Ox3, euthymic affect Lymphatic: no cervical or axillary lymphadenopathy : deferred Principal Diagnosis (1) Back pain: (2) Closed compression fracture of L3 vertebra: (3) Ambulatory dysfunction: (4) Chronic respiratory failure with hypoxia and hypercapnia: (5) COPD (chronic obstructive pulmonary disease): (6) Chronic diastolic heart failure: (7) Fibromyalgia: (8) Hypertension: (9) Dissection of left carotid artery: Discharge Exam General- No acute distress Head- atraumatic Eyes- PERRL, EOMI, ENT- oropharynx clear Neck- supple, no JVD Lungs- clear to auscultation Heart- regular rhythm; no murmur Abdomen- normal bowel sounds, soft, nontender Extremities- no calf tenderness Neuro- alert, oriented x 3; PERRL, EOMI; no facial palsy; no dysarthria Skin- warm & dry Discharge Data Allergies Allergy/AdvReac Type Severity Reaction Status Date / Time duloxetine [From Cymbalta] Allergy Mild Rash Verified 05/27/21 08:48 naproxen AdvReac Mild GI SYMPTOMS Verified 05/27/21 08:48 Consultations 06/30/21 17:06 ED Decision to Admit Stat 06/30/21 20:35 Consult Orthopedic Surgery Routine Ordered Studies 06/30/21 12:54 CT chest diagnostic w con Stat CT lumbar spine w con Stat CT thoracic spine w con Stat 06/30/21 12:59 CT abd pelvis IV con only Stat ABDOMEN AND PELVIS CT WITH IV CONTRAST CT DOSE: 782.49 mGy.cm HISTORY: Acute back pain with possible trauma back pain, hx aneurysm TECHNIQUE: Multiaxial CT images of the abdomen and pelvis were performed following the IV administration of 94 cc of Optiray, A dose lowering technique was utilized adhering to the principles of ALARA. COMPARISON STUDY: CT chest, thoracic and lumbar spine studies of same day, CT abdomen and pelvis 05/27/2021 FINDINGS: Mild bibasilar mucous plugging with atelectasis/scarring. No pneumatosis or pneumoperitoneum. Coronary artery calcifications with mild cardiomegaly. The unenhanced spleen is unremarkable with a few scattered punctate parenchymal calcifications. Unremarkable liver and adrenal glands. Mildly contracted gallbladder with cholelithiasis in the gallbladder neck. No biliary ductal dilation. Mildly atrophic pancreas. 3 mm nonobstructing calculus of the interpolar right kidney. There are 2 calculi of the left kidney which measure up to 3 mm. Mild nonspecific bilateral perinephric stranding. Exophytic 8 mm hypodensity of the inferior pole left kidney is suggestive of a cyst. 6 mm hypodensity of the inferior pole right kidney is too small to characterize. No ureteral calculi or hydronephrosis. Moderate bladder distention. Hysterectomy. Unremarkable urinary bladder. Extensive calcified plaque the abdominal aorta with 3.2 cm infrarenal aneurysm. No aneurysm rupture. No adenopathy. Duodenal diverticulum. No bowel obstruction or bowel wall thickening. Nonvisualization of the appendix. Colonic diverticulosis without CT evidence of acute diverticulitis. Unremarkable soft tissues. Degenerative changes of the spine, pelvis and hips. Demineralized appearance of the bones. Healed chronic bilateral rib fractures. Mild superior endplate compression deformity at L3 is new from comparison. This is approximately 20% and demonstrates no retropulsion. IMPRESSION: 1. Acute 20% superior endplate compression deformity of the L3 vertebral body without retropulsion. 2. No acute intra-abdominal or intrapelvic abnormality. 3. 3.2 cm infrarenal abdominal aortic aneurysm without rupture. 4. No bowel obstruction or bowel wall thickening. 5. Nonobstructing left nephrolithiasis. 6. Additional findings as above. ACT 112: Negative or not required by law. The above report was generated using voice recognition software. It may contain grammatical, syntax or spelling errors. Electronically signed by: Zach Perez M.D. 06/30/2021 3:42 PM Dictated: 06/30/211532Transcribed: 06/30/211532 CT thoracic spine w con INDICATION: [place] ^mid thoracic pain TECHNIQUE: Multidetector row helical CT of the thoracic spine was performed without administration of intravenous contrast. Coronal and sagittal reformations were obtained. Automated dose lowering techniques and/or adjustment according to patient size were utilized for this exam. Comparison: Comparison is made to CT chest 04/05/2021 FINDINGS: No acute fracture. Vertebral plana of T7 is unchanged from prior exam. Diffuse osteopenia is seen. Degenerative changes are noted in the visualized spine. Vertebral body alignment is within normal limits. Surrounding soft tissues are unremarkable. Please see CT chest performed same day for intrathoracic findings. IMPRESSION: No evidence of acute fracture or traumatic subluxation. ACT 112: Negative or not required by law. Electronically signed by: Nikita Mcgill M.D. 06/30/2021 3:44 PM Dictated: 06/30/21 1542Transcribed: 06/30/[address] lumbar spine w con CT DOSE: CLINICAL HISTORY: lower lumbar pain TECHNIQUE: A dose lowering technique was utilized adhering to the principles of ALARA. COMPARISON STUDY: January 19, 2021. FINDINGS: No definite acute displaced/dislocated fracture is seen. Evaluation is limited due to severe diffuse osteopenia. Mild interval decrease of the L3 height of approximately 15% might represent compression fracture deformity. Normal lumbar lordosis is preserved. Redemonstration of stable narrowing of the L3-L4 level associated with vacuum phenomenon and mild subchondral sclerosis. Multiple anterior osteophytes are again seen. Diffuse bulge of the disc with possible central canal stenosis is seen at the L2-L3, L3-L4, L4-L5 levels. Mild neural foraminal stenosis is seen at L5-S1 level bilaterally. Multiple areas of aneurysmal abdominal aortic dilatation is seen with multiple peripheral calcified plaques. IMPRESSION: Interval development of compression fracture deformity of L3. No evidence of traumatic malalignment. Limited exam due to osteopenia. Multilevel degenerative changes as detailed above. Multiple areas of aneurysmal aortic dilatation. Atherosclerosis. ACT 112: Negative or not required by law. The above report was generated using voice recognition software. It may contain grammatical, syntax or spelling errors. Electronically signed by: Matilda Alejandra DO 06/30/2021 3:44 PM Dictated: 06/30/21 1536Transcribed: 06/30/[address] OF THE CHEST WITH IV CONTRAST CLINICAL HISTORY: Midline thoracic pain. COMPARISON STUDY: Chest CT April 05, 2021. TECHNIQUE: Following IV administration of 94 mL of Optiray, helical axial images of the chest were obtained. Sagittal and coronal reconstructions were viewed as well as maximal intensity projections on an independent 3-D workstation. Automated exposure control was utilized for the study. A dose lowering technique was utilized adhering to the principles of ALARA. FINDINGS: No enlarged axillary, mediastinal or hilar lymph nodes are present. Mild cardiomegaly is noted. No pericardial effusion. There is no thoracic aortic dissection. No pulmonary emboli are identified. No pneumothorax or pleural effusion is present. There are multiple old left rib fractures. Mild tree-in-bud nodules within the left upper lobe are noted. Central airways are patent. Lungs are suboptimally assessed due to respiratory motion. Subpleural opacities favor atelectasis. Note is made of old severe T7 compression fracture with minimal retropulsion which is similar to CT of April 05, 2021. No acute thoracic spine fracture is identified. There are gallstones within the gallbladder. Abdomen and pelvis will be reported separately. IMPRESSION: 1. No acute process within the chest. 2. Old severe T7 compression fracture, similar to CT of April 05, 2021. No acute thoracic spine fracture. ACT 112: Negative or not required by law. Electronically signed by: Jas Franco M.D. 06/30/2021 3:36 PM Dictated: 06/30/21 1525Transcribed: 06/30/21 1525 Hospital Course (1) Back pain: (2) Closed compression fracture of L3 vertebra: (3) Ambulatory dysfunction: (4) Chronic respiratory failure with hypoxia and hypercapnia: (5) COPD (chronic obstructive pulmonary disease): (6) Chronic diastolic heart failure: (7) Fibromyalgia: (8) Hypertension: (9) Dissection of left carotid artery: per admitting service notes: This is a 75-year-old female who has significant past medical history of chronic hypoxemic and hypercapnic respiratory failure on 3 L of O2 at baseline, COPD, HTN, HLD, CHF, known infrarenal abdominal aortic aneurysm, GERD, fibromyalgia, essential tremor, History of left carotid artery dissection who presents ED secondary to low back pain x6 days. Lumbar CT: Interval development of compression fracture deformity of L3. No evidence of traumatic malalignment. Acute back pain Close depression fracture of L3 vertebra Ambulatory dysfunction Orthopedic spine service consulted No surgical intervention at this point or bracing Pain adequately managed Continue lidoderm patch, continue prn tramadol and oxycodone scheduled valium 2mg bid -titrate down to daily, then DC in 2 to 3 days Continue pain control, PT OT Recommend follow-up with orthopedic spine clinic in 2 weeks for repeat x-rays Treat underlying osteoporosis Denies inpatient rehab Vitamin D deficiency Level 23 Vitamin D 50,000 units every week x4 weeks, then repeat vitamin D levels Chronic hypoxic respiratory failure with hypercapnia on 3 L of O2 COPD No acute exacerbation Continue Symbicort and Umeclidinium as well as Daliresp BiPAP at bedtime follows [facility] Chronic diastolic CHF HTN HLD Continue aspirin, statin, losartan and metoprolol No cardiac symptoms History of left carotid artery dissection Found incidentally during recent admission in May Was seen and evaluated by vascular surgery, no acute intervention Started on Plavix and encouraged to take for at least 30 day Will need to make sure she has vascular surgery follow-up at discharge Infrarenal abdominal aortic aneurysm Noted on imaging Previously seen on prior imaging Currently 3.2 cm Will need follow-up with vascular surgery as outpatient DVT ppx: Lovenox PCP: Paige Bartholomew MD FULL CODE Disposition Will discharge home with Total Time Total Time Spent Total Time Spent (In Minutes): 35 minutes Discharge Plan Discharge Items Patient Disposition: Home - Home Health Services Reason For Visit: LUMBAR COMPRESSION FRACTURE Discharge Diagnosis: (1) Back pain: (2) Closed compression fracture of L3 vertebra: (3) Ambulatory dysfunction: (4) Chronic respiratory failure with hypoxia and hypercapnia: (5) COPD (chronic obstructive pulmonary disease): (6) Chronic diastolic heart failure: (7) Fibromyalgia: (8) Hypertension: (9) Dissection of left carotid artery: Condition on Discharge: Fair Activity: Resume your previous activity Non-emergency contact: Primary Care Provider and Surgeon Call non-emergency contact if: you have any medication questions Follow-up/Referrals: Paige Bartholomew MD [Primary Care Provider] - 07/11/21 11:20 am (Date & Time 07/11/2021 11:20 AM Provider Paige Bartholomew MD Department [facility] ) Diet: Heart Healthy Addtl Attending Provider Instructions: Follow up with your primary care provider with Dr. Bartholomew on 04/2021 11:20 AM at the [facility] follow up with orthopedic in 2 weeks with follow for repeat Xray Follow up with vascular surgery for left carotid artery dissection Continue physical and occupational therapy fall precaution Continue oxygen supplement Check Vitamin D level in 2 to [address] or operate any machine after taking the narcotic Please hold next dose of narcotic if you develop any lethargy Pending Studies at Discharge: No Stand-Alone Forms: My [facility] [employer], Opioid Pain Management, Smoking Cessation Medications and DC Order Prescriptions: New ergocalciferol (vitamin D2) 1,250 mcg (50,000 unit) Capsule 50,000 unit PO Q7D@2100 Qty: 8 RF: 0 oxycodone 5 mg Tablet 5 mg PO Q12H PRN (Reason: pain, severe) Qty: 10 RF: 0 Continued Daliresp 250 mcg tablet 250 mcg PO QAM Qty: 90 RF: 1 (DME) Oxygen Home Liters Per Minute See Rx Instructions .ROUTE .MEDSUPPLY Qty: 1 RF: 0 tramadol [Ultram] 50 mg tablet 50 mg PO Q6H PRN (Reason: Pain) RF: 0 albuterol sulfate [Ventolin HFA] 90 mcg/actuation HFA aerosol inhaler 2 puff INHALATION QID PRN (Reason: Shortness Of Breath Or Wheezing) Qty: 8.5 RF: 5 magnesium oxide 400 mg magnesium Capsule 400 mg PO QAM RF: 0 atorvastatin [Lipitor] 40 mg Tablet 40 mg PO QAM RF: 0 losartan [Cozaar] 25 mg Tablet 25 mg PO QAM RF: 0 metoprolol succinate [Toprol XL] 50 mg tablet extended release 24 hr 50 mg PO QAM RF: 0 ipratropium-albuterol 0.5 mg-3 mg(2.5 mg base)/3 mL solution for nebulization 3 ml INHALATION Q4H PRN (Reason: COUGH OR WHEEZE) RF: 0 umeclidinium 62.5 mcg/actuation Blister With Device 1 inh INHALATION DAILY RF: 0 aspirin [Aspirin Low Dose] 81 mg Tablet,Delayed Release (Dr/Ec) 81 mg PO QAM RF: 0 Multivitamin Gummies 200 mcg Tablet,Chewable 2 tab PO QAM RF: 0 ropinirole 0.25 mg tablet 0.25 mg PO HS RF: 0 pantoprazole [Protonix] 40 mg tablet,delayed release (DR/EC) 40 mg PO QAM RF: 0 budesonide-formoterol [Symbicort] 160-4.5 mcg/actuation HFA aerosol inhaler 2 puff INH BID RF: 0 ondansetron 4 mg tablet,disintegrating 4 mg translingual Q6H PRN (Reason: Nausea And Vomiting) RF: 0 diclofenac sodium 1 % Gel 4 g TOPICAL QID RF: 0 docusate sodium 100 mg Capsule 100 mg PO BID Qty: 30 RF: 1 clopidogrel [Plavix] 75 mg tablet 75 mg PO DAILY Qty: 30 RF: 0 cyclobenzaprine 5 mg tablet 5 mg PO TID PRN (Reason: muscle spasm) Qty: 10 RF: 0 Discharge Orders: Discharge Order (Routine); Ordered 07/08/21 Ordered By: Tosin Benavides/Other Patient Handouts: Back Fracture (Compression Fracture) Admission Data Admit Date/Time: 07/03/21 07:24 Attending Provider: Tosin Jaquez Admit Provider: Max Hallman Primary Care Provider: Paige Bartholomew Other Providers: Max Hallman ; Marcelino [facility] ; [facility] ; [facility] ; Ganesh Han Other Interventions: Discharge Summary Assessment (RN) Last Done: 07/08/21 14:48
--- NOTE | 2021-07-14 07:19 | Coding Query ---
To promote full compliance with coding requirements relating to patient care, physician participation is requested in all cases of certified procedural coder uncertainty. Please assist us with the question(s) below: Coding Question(s): It was noted throughout the record that the patient has osteoporosis. According to coding guidelines "a code for osteoporotic fracture, and not a traumatic fracture, should be used for any patient with known osteoporosis who suffers a fracture, even if the patient had a minor fall or trauma, if that fall or trauma would not usually break a normal, healthy bone." Please indicate below the type of fracture: Physician's Response(s): ( ) Osteoporotic fracture of L3 Vertebra ( ) Traumatic fracture of L3 Vertebra ( ) Other, please specify ( x ) Unable to be determined Thank You, Mono Vargas, [facility]
== END 2021-07-08 15:28 | disposition home health service (06) | DRG 542 ==
LOC: 3N 10:49 → ED 10:49 → SUATTDRO 17:09 → 3N 20:06 → SUATTDRO 07-03 07:24

== ENCOUNTER 2021-08-06 11:12 | Inpatient (IN) ==
--- NOTE | 2021-08-06 11:15 | Emergency Department Note ---
Impression & Plan Back pain, Closed T12 fracture ED Provider Note NAME: ARTURO HIDALGO AGE: 75 SEX: F : 1945 ARRIVES VIA: Ambulance INFORMANT: Patient, ED PROVIDER(S): Thien Murcia MD Chief Complaint: Back pain HPI: Patient does present with concern for back pain which is been ongoing for 3 to 4 days. The patient states that this is acute on chronic and has been ongoing since last month. No recent falls sneezing coughing or bearing down. The patient denies any falls or trauma. The patient was recently prescribed some oxycodone which the patient did take yesterday as well as today this morning. The patient took no other of her at home medications this morning. Patient has any fevers or chills. Patient does wear chronic 2 L oxygen at all time has a history of COPD former smoker last smoked in 2003. Patient describes the pain is sharp well localized nonradiating. Patient denies any numbness tingling or focal weakness. Patient denies any nausea vomiting. Patient denies any fevers or chills. Patient is not vaccinated for COVID-19. Patient did have a repeat recent CT scan of the chest abdomen pelvis completed on June 30. This did show that she had an acute superior endplate compression deformity at L3 without retropulsion. The patient does have chronic 3.2 cm infrarenal AAA without rupture. Chest CT showed old old T7 compression fracture. ROS: See HPI for pertinent positives and negatives. A total of 10 systems were reviewed and otherwise negative. Past medical history: See below Surgical history: See below Social history: See below Physical Exam: GENERAL: NAD, wearing a mask, non-toxic. Nasal cannula in place. EYE EXAM: Normal conjunctiva. PERRL, no anisocoria and EOM's grossly intact w/o pain. NECK: Supple, no nuchal rigidity, no adenopathy, non-tender. No signs of meningismus. LUNGS: Clear to auscultation. Normal chest wall mechanics. HEART: Tachycardic and regular, no MRG. ABDOMEN: Abdomen soft, non-tender, normo-active bowel sounds, no masses, no rebound or guarding. BACK: No CVA TTP. SKIN: No rashes and no bruising. UPPER EXTREMITIES: Upper extremities are grossly normal. LOWER EXTREMITIES: Grossly normal, no edema. Equal and symmetric pulses in bilateral lower extremities. Well-perfused. NEURO EXAM: A&O x3, cranial nerves II-XII grossly intact, normal speech, moves all 4 extremities on command w/o issue. Differential diagnoses: Musculoskeletal, disc herniation, fracture, metastatic disease, cord compression, discitis, sciatica, cauda equina, infection, aortic disease, renal colic, gastrointestinal, as well as other pathologies. Course: Patient was seen and evaluated the bedside. Full history physical exam was performed. Imaging Studies: See Below Cardiac monitoring: An order was placed for continuous cardiac monitoring. The monitor shows a rate of 112 with tachycardic and regular rhythm. MDM: Patient was seen due to concern for back pain. Blood work was obtained along with CT abdomen pelvis. Patient was ordered her home medication as the patient does take Toprol and was tachycardic initially. Patient is normal white count H&H and platelet count. The patient's kidney function is unremarkable albeit with prerenal azotemia. The patient did receive IV fluids. Bicarb is elevated the patient is on chronic oxygen. Covid negative. CT does show new T12 fracture. Patient did receive additional pain medication and given that the patient lives by herself do not believe the patient go home at this time due to intractable back pain. I did speak to the on-call hospitalist and the patient was admitted to medicine service by Dr. Jaquez. Past Med/Surg History Medical History Aneurysm of infrarenal abdominal aorta Anxiety BCC (basal cell carcinoma of skin) on left side of face---"s/p MOHS surgery" Chronic diastolic heart failure Chronic respiratory failure with hypoxia and hypercapnia Chronic respiratory failure with hypoxia, on home O2 therapy OXYGEN 3L/MIN VIA NC COPD (chronic obstructive pulmonary disease) Degenerative disc disease Dissection of left carotid artery Dyslipidemia Fibromyalgia GERD (gastroesophageal reflux disease) Gram-positive bacteremia Hypertension Obesity hypoventilation syndrome On home oxygen therapy 3L N/C at all times Osteoporosis Sinus tachycardia SOB (shortness of breath) on exertion Tremor of both hands Wrist fracture, left Surgical History History of bilateral cataract extraction History of carpal tunnel surgery of right wrist History of colonoscopy with polypectomy History of esophagogastroduodenoscopy (EGD) History of left breast biopsy benign History of mandibular surgery jaw fx History of repair of left rotator cuff History of repair of right rotator cuff History of tooth extraction S/P Mohs surgery for basal cell carcinoma Status post appendectomy Status post excision of lipoma removed off neck x2 Status post hysterectomy Status post repair of ventral hernia Family History Grandfather (Maternal) Family hx of colon cancer Father FH: kidney cancer Family/Other Family history of diabetes mellitus nephew Other Kidney disease Lung disease No family history of adverse response to anesthesia Social History Smoking Status: Former smoker Tobacco Type: Cigarettes Cigarettes Per Day: unsure when she quit; Second Hand Exposure: No; Hx Alcohol Use: Yes Alcohol type: hard liquor Hx Substance Use: No Preferred Language: Bulgarian Communication Ability: Effective Edging Catcher Required: No Beliefs That Will Affect Care: None marital status: / Current Living Situation: Alone current occupational status: retired How many Children do You have: 3 Feels Safe at Home: Yes Assistive Devices: Oxygen - Continuous and Walker Allergies Allergies Allergy/AdvReac Type Severity Reaction Status Date / Time duloxetine [From Cymbalta] Allergy Mild Rash Verified 08/06/21 12:19 naproxen AdvReac Mild GI SYMPTOMS Verified 08/06/21 12:19 Home Meds Home Medications Medication Instructions Recorded Confirmed atorvastatin 40 mg tablet (Lipitor) 40 mg PO QAM 12/14/18 08/06/21 losartan 25 mg tablet (Cozaar) 25 mg PO QAM 12/14/18 08/06/21 magnesium oxide 400 mg PO QAM 02/13/19 08/06/21 metoprolol succinate 50 mg 50 mg PO QAM 04/22/19 08/06/21 tablet,extended release 24 hr (Toprol XL) aspirin 81 mg tablet,delayed 81 mg PO QAM 01/19/21 08/06/21 release (Aspirin Low Dose) multivitamin with minerals-folic 2 tab PO QAM 03/04/21 08/06/21 acid 200 mcg chewable tablet (Multivitamin Gummies) ipratropium 0.5 mg-albuterol 3 mg 3 ml INHALATION Q4H PRN 03/22/21 08/06/21 (2.5 mg base)/3 mL nebulization soln budesonide-formoterol HFA 160 2 puff INH BID 05/27/21 08/06/21 mcg-4.5 mcg/actuation aerosol inhaler (Symbicort) ondansetron 4 mg disintegrating 4 mg TRANSLINGUAL Q6H PRN 05/27/21 08/06/21 tablet pantoprazole 40 mg tablet,delayed 40 mg PO QAM 05/27/21 08/06/21 release (Protonix) ropinirole 0.25 mg tablet 0.25 mg PO HS 05/27/21 08/06/21 umeclidinium 62.5 mcg/actuation 1 inh INHALATION DAILY 06/30/21 08/06/21 blister powder for inhalation clopidogrel 75 mg tablet (Plavix) 75 mg PO QAM 08/06/21 08/06/21 docusate sodium 100 mg capsule 100 mg PO QAM 08/06/21 08/06/21 Previous Rx's Medication Instructions Recorded Oxygen Home #1 ea 11/05/19 roflumilast 250 mcg tablet 250 mcg PO QAM #90 tab 06/30/20 (Daliresp) albuterol sulfate 90 mcg/actuation 2 puff INHALATION QID PRN #8.5 g 05/05/21 aerosol inhaler (Ventolin HFA) ergocalciferol (vitamin D2) 1,250 50,000 unit PO Q7D@2100 #8 cap 07/08/21 mcg (50,000 unit) capsule Results & Data (ED) Vital Signs Vital Signs - 24 hr 08/06/21 11:20 08/06/21 11:26 08/06/21 11:30 Temperature 37.3 C Temperature Source Oral Pulse Rate 103 H 108 H 105 H Pulse Rate from SpO2 Sensor 109 H 105 H Respiratory Rate 18 25 H 36 H Blood Pressure 151/99 H Blood Pressure Mean 116 Pulse Oximetry 98 99 98 Oxygen Delivery Method Sepsis Recent Fever Within 48 Hours No Sepsis New/Unexplained Change in Mental Status No Sepsis Action Taken by Nursing No Action Required 08/06/21 11:40 08/06/21 11:45 08/06/21 12:00 Temperature Temperature Source Pulse Rate 99 H 106 H Pulse Rate from SpO2 Sensor 99 H 105 H Respiratory Rate 26 H 27 H Blood Pressure Blood Pressure Mean Pulse Oximetry 96 95 Oxygen Delivery Method Room Air Sepsis Recent Fever Within 48 Hours Sepsis New/Unexplained Change in Mental Status Sepsis Action Taken by Nursing 08/06/21 12:15 08/06/21 12:30 08/06/21 12:54 Temperature Temperature Source Pulse Rate 101 H 99 H 100 H Pulse Rate from SpO2 Sensor 103 H 100 H Respiratory Rate 24 16 22 Blood Pressure 146/65 H Blood Pressure Mean 92 Pulse Oximetry 95 96 Oxygen Delivery Method Sepsis Recent Fever Within 48 Hours Sepsis New/Unexplained Change in Mental Status Sepsis Action Taken by Nursing 08/06/21 13:00 08/06/21 13:15 08/06/21 13:34 Temperature Temperature Source Pulse Rate 93 H 91 H 108 H Pulse Rate from SpO2 Sensor 93 H 91 H 107 H Respiratory Rate 23 18 29 H Blood Pressure Blood Pressure Mean Pulse Oximetry 99 99 42 L Oxygen Delivery Method Sepsis Recent Fever Within 48 Hours Sepsis New/Unexplained Change in Mental Status Sepsis Action Taken by Nursing 08/06/21 13:45 08/06/21 14:00 08/06/21 14:15 Temperature Temperature Source Pulse Rate 96 H 97 H 97 H Pulse Rate from SpO2 Sensor 91 H 97 H 92 H Respiratory Rate 29 H 19 22 Blood Pressure 178/100 H Blood Pressure Mean 126 Pulse Oximetry 87 L 100 100 Oxygen Delivery Method Sepsis Recent Fever Within 48 Hours Sepsis New/Unexplained Change in Mental Status Sepsis Action Taken by Nursing 08/06/21 14:30 08/06/21 14:45 Temperature Temperature Source Pulse Rate 101 H 111 H Pulse Rate from SpO2 Sensor 102 H Respiratory Rate 21 26 H Blood Pressure Blood Pressure Mean Pulse Oximetry 100 Oxygen Delivery Method Sepsis Recent Fever Within 48 Hours Sepsis New/Unexplained Change in Mental Status Sepsis Action Taken by Half-Way Medications Current Medication List: was personally reviewed by me Laboratory Data Attestation: I reviewed the patient's lab results. Result diagrams: 08/06/21 Unknown 08/06/21 Unknown Lab Results 08/06/21 08/06/21 Range/Units 15:05 15:05 COVID-19 Eval Order Covid19 at [facility] SARS-CoV-2 (PCR) NEGATIVE (Negative) Administered Medications Discontinued Medications Sodium Chloride (Nss 1000ml) 1,000 mls @ 999 mls/hr IV .Q1H1M STA Stop: 08/06/21 12:22 Last Infusion: 08/06/21 12:40 Dose: 0 mls/hr Documented by: [id number] Admin: 08/06/21 11:36 Dose: 999 mls/hr Documented by: [id number] Ioversol (Optiray 320 100ml) 98 ml IV ONCE ONE Stop: 08/06/21 12:53 Last Admin: 08/06/21 12:52 Dose: 98 ml Documented by: [id number] Metoprolol Succinate (Metoprolol Succ 50mg Ext Rel Tab) 50 mg PO NOW STA Stop: 08/06/21 11:23 Last Admin: 08/06/21 11:59 Dose: 50 mg Documented by: [id number] Morphine Sulfate (Morphine Sulfate 4 Mg/Ml 1 Ml Carp\\Vial) 4 mg IV NOW STA Stop: 08/06/21 11:23 Last Admin: 08/06/21 11:37 Dose: 4 mg Documented by: [id number] Morphine Sulfate (Morphine Sulfate 4 Mg/Ml 1 Ml Carp\\Vial) 4 mg IV NOW STA Stop: 08/06/21 14:35 Last Admin: 08/06/21 15:03 Dose: 4 mg Documented by: [id number] Ondansetron HCl (Ondansetron Inj 2 Mg/Ml 2 Ml Vial) 4 mg IV NOW STA Stop: 08/06/21 11:23 Last Admin: 08/06/21 11:37 Dose: 4 mg Documented by: [id number] Imaging Data Radiologist's Impression: Abdomen/Pelvis CT 08/06/21 11:22 CT OF THE ABDOMEN AND PELVIS WITH CONTRAST CLINICAL HISTORY: midline LBP; h/o L3 compression frx infraren AAA COMPARISON STUDY: CT of the abdomen and pelvis June 30, 2021. TECHNIQUE: Following IV administration of 98 mL of Optiray, axial images of the abdomen and pelvis were obtained from the lung bases to the proximal femurs. Images were reviewed in the axial, sagittal, and coronal planes. IV contrast was administered without complication. Automated exposure control was utilized for the study. A dose lowering technique was utilized adhering to the principles of ALARA. CT DOSE: 381.06 mGy.cm FINDINGS: Lung bases are unremarkable. No pneumatosis, free air or portal venous gas is present. The liver, spleen, adrenal glands, kidneys and pancreas are unremarkable. There are gallstones within the gallbladder. There is no evidence for acute cholecystitis. Diverticulum of the second portion the duodenum is present. There is no hydronephrosis. 3.2 cm infrarenal abdominal aortic aneurysm is unchanged. Extensive plaque is present. There is no evidence for rupture. Extensive colonic diverticulosis is noted without evidence for acute diverticulitis. There is no evidence for a bowel obstruction. Appendix is not visualized. There is no ascites or lymphadenopathy. Major vasculature is patent. Moderate L3 compression fracture is again noted. There has been increase in vertebral body height loss since CT of June 30, 2021. A mild T12 compression fracture is new since prior CT. There is no significant retropulsion. No extension into posterior elements is noted. IMPRESSION: 1. Acute to subacute mild T12 compression fracture. This is new since CT of June 30, 2021. 2. Redemonstration of an L3 compression fracture with interval increase in vertebral body height loss since prior exam. 3. No change in a 3.2 cm infrarenal abdominal aortic aneurysm. No rupture. 4. Cholelithiasis. ACT 112: Negative or not required by law. Electronically signed by: Jas Franco M.D. 08/06/2021 1:05 PM Discharge Plan Visit Data Chief Complaint: Back Injury/Pain ED Provider: Thien Murcia Discharge Problem: Back pain, Closed T12 fracture Patient Disposition: Admitted As Inpatient Discharge Instructions Interventions: ED Discharge Assessment Last Done: 08/06/21 18:00
[2021-08-06] MEDS ORDERED: ONDANSETRON INJ 2 MG/ML 2 ML VIAL IV STA (11:22)
[2021-08-06] MEDS ORDERED: METOPROLOL SUCC 50MG EXT REL TAB PO STA (11:22)
[2021-08-06] MEDS ORDERED: SODIUM CHLORIDE 0.9% 1000ML 1,000 ML IV STA (11:22)
[2021-08-06] MEDS ORDERED: MoRPHine SULFATE 4 MG/ML 1 ML CARP\\VIAL IV STA ×2 (11:22→14:34)
[2021-08-06 11:57] LABS: Basophils # (auto) 0.01 K/uL (0-0.2); Basophils % (auto) 0.1 %; Eosinophils # (auto) 0.13 K/uL (0-0.5); Eosinophils % (auto) 1.3 %; Hematocrit (blood only) 40.8 % (37-47); Immature Granulocytes # (auto) 0.02 K/uL (0.00-0.02); Immature Granulocytes % (auto) 0.2 %; Lymphocytes # (auto) 0.81 K/uL (1.2-3.4); Mean Corpuscular Hemoglobin 27.6 pg (25-34); Mean Corpuscular Hgb Conc 29.4 g/dL (32-36); Mean Platelet Volume 11.2 fL (7.4-10.4); Monocytes # (auto) 0.99 K/uL (0.11-0.59); Monocytes % (auto) 9.8 %; Neutrophils # (auto) 8.14 K/uL (1.4-6.5); Neutrophils % (auto) 80.6 %; Platelet Count 201 K/uL (130-400); RDW Coefficient of Variation 14.1 % (11.5-14.5); RDW Standard Deviation 48.5 fL (36.4-46.3); Red Blood Count 4.34 M/uL (4.2-5.4)
[2021-08-06 12:10] LABS: Alanine Aminotransferase 15 U/L (12-78); Albumin Globulin Ratio 0.9 (0.9-2); Albumin Level 3.4 gm/dl (3.4-5.0); Alkaline Phosphatase 90 U/L (45-117); Aspartate Aminotransferase 9 U/L (15-37); BUN Creatinine Ratio 31.9 (10-20); Blood Urea Nitrogen 19 mg/dl (7-18); Calcium 10.2 mg/dl (8.5-10.1); Carbon Dioxide 44 mmol/L (21-32); Chloride 93 mmol/L (98-107); Est GFR (African American) 102.5 ml/min; Est GFR (Non-African American) 88.4 ml/min; Glucose 120 mg/dl (70-99); Lipase 56 U/L (73-393); Potassium 4.1 mmol/L (3.5-5.1); Sodium 140 mmol/L (136-145); Total Protein 7.4 gm/dl (6.4-8.2)
[2021-08-06 12:35] LABS: Bilirubin,Total 1.1 mg/dl (0.2-1)
[2021-08-06] MEDS ORDERED: OPTIRAY 320 100ml IV ONE (12:52)
--- NOTE | 2021-08-06 13:07 | CT Scan Report ---
CT OF THE ABDOMEN AND PELVIS WITH CONTRAST CLINICAL HISTORY: midline LBP; h/o L3 compression frx infraren AAA COMPARISON STUDY: CT of the abdomen and pelvis June 30, 2021. TECHNIQUE: Following IV administration of 98 mL of Optiray, axial images of the abdomen and pelvis we re obtained from the lung bases to the proximal femurs. Images were reviewed in the axial, sagittal, and coronal planes. IV contrast was administered without complication. Automated exposure control wa s utilized for the study. A dose lowering technique was utilized adhering to the principles of ALARA . CT DOSE: 381.06 mGy.cm FINDINGS: Lung bases are unremarkable. No pneumatosis, free air or portal venous gas is present. The liver, spleen, adrenal glands, kidneys and pancreas are unremarkable. There are gallstones within the gallbladder. There is no evidence for acute cholecystitis. Diverticulum of the second portion the du odenum is present. There is no hydronephrosis. 3.2 cm infrarenal abdominal aortic aneurysm is unchang ed. Extensive plaque is present. There is no evidence for rupture. Extensive colonic diverticulosis i s noted without evidence for acute diverticulitis. There is no evidence for a bowel obstruction. Appe ndix is not visualized. There is no ascites or lymphadenopathy. Major vasculature is patent. Moderate L3 compression fracture is again noted. There has been increase in vertebral body height loss since CT of June 30, 2021. A mild T12 compression fracture is new since prior CT. There is no signific ant retropulsion. No extension into posterior elements is noted. IMPRESSION: 1. Acute to subacute mild T12 compression fracture. This is new since CT of June 30, 2021. 2. Redemonstration of an L3 compression fracture with interval increase in vertebral body height loss since prior exam. 3. No change in a 3.2 cm infrarenal abdominal aortic aneurysm. No rupture. 4. Cholelithiasis. ACT 112: Negative or not required by law. Electronically signed by: Jas Franco M.D. 08/06/2021 1:05 PM
--- NOTE | 2021-08-06 16:35 | History & Physical Report ---
Date of Service August 06, 2021 Assessment & Plan (1) T12 compression fracture: (2) Intractable back pain: (3) COPD (chronic obstructive pulmonary disease): (4) Aneurysm of infrarenal abdominal aorta: (5) Obesity hypoventilation syndrome: (6) Chronic respiratory failure with hypoxia and hypercapnia: (7) Hypertension: (8) GERD (gastroesophageal reflux disease): (9) Fibromyalgia: (10) Dyslipidemia: (11) Osteoporosis: Plan: Pt presents to the ED today with acute intractable back pain x 4 days, not responding to oral pain regimen, with new T12 compression fracture on imaging today. No clear inciting event, no recent falls, but pt is coughing due to un derlying respiratory issues and has known osteoporosis. - Pain control - scheduled Valium, lidocaine patch. Continue prn oxycodone, add prn Toradol - Consult spine surgery although pt aware there may not be any surgical interventions indicated at this time - PT/OT once pain controlled - Continue home meds as appropriate - Continue baseline supplemental O2 Pt seen and reviewed with attending physician, Dr. Jaquez. Plan of care discussed and as outlined above. DVT Prophylaxis: Lovenox Code Status: full code Wong Butler PA-C History of Present Illness Chief Complaint: Back Pain Primary Care Provider: Paige Bartholomew MD This is a 75 y/o female with a PMH of chronic hypoxemic and hypercapnic respiratory failure on 2 L of O2 at baseline, COPD, HTN, HLD, CHF, known infrarenal abdominal aortic aneurysm, GERD, fibromyalgia, essential tremor, and hx of left carotid artery dissection who presents ED secondary to worsening of low back pain x 4 days. Pt was admitted in Jun due to similar complaints and was found to have a L3 compression fracture. She was seen by ortho spine and was not a surgical candidate. Pt was managed conservatively and discharged home. She reports that pain gradually improved until four days ago when she again started with lower back pain. She denies any specific inciting event, specifically denies falls. She does report a productive cough related to her COPD but cannot determine if this is any worse than baseline. Pain has not been controlled on oxycodone. Pt has been on Ultram in the past but seems to develop confusion at higher doses per PCP notes. Pt reports that her legs have been "more shaky" and that she "can't do anything" because of the pain. She denies weakness in her legs or that they have given out on her. Pain does not radiate to her legs. She denies numbness, tingling. No bowel or bladder incontinence. No dysuria, hematuria, flank pain, N/V. She is currently eating a turkey sandwich during our conversation. She is on chronic O2 at home and reports she is using her baseline 2 liters. Allergies Allergy/AdvReac Type Severity Reaction Status Date / Time duloxetine [From Cymbalta] Allergy Mild Rash Verified 08/06/21 12:19 naproxen AdvReac Mild GI SYMPTOMS Verified 08/06/21 12:19 Home Medications Medication Instructions Recorded Confirmed Type atorvastatin 40 mg tablet (Lipitor) 40 mg PO QAM 12/14/18 08/06/21 History losartan 25 mg tablet (Cozaar) 25 mg PO QAM 12/14/18 08/06/21 History magnesium oxide 400 mg PO QAM 02/13/19 08/06/21 History metoprolol succinate 50 mg 50 mg PO QAM 04/22/19 08/06/21 History tablet,extended release 24 hr (Toprol XL) Oxygen Home #1 ea 11/05/19 06/30/21 Rx roflumilast 250 mcg tablet 250 mcg PO QAM #90 tab 06/30/20 08/06/21 Rx (Daliresp) aspirin 81 mg tablet,delayed 81 mg PO QAM 01/19/21 08/06/21 History release (Aspirin Low Dose) multivitamin with minerals-folic 2 tab PO QAM 03/04/21 08/06/21 History acid 200 mcg chewable tablet (Multivitamin Gummies) ipratropium 0.5 mg-albuterol 3 mg 3 ml INHALATION Q4H PRN 03/22/21 08/06/21 History (2.5 mg base)/3 mL nebulization soln albuterol sulfate 90 mcg/actuation 2 puff INHALATION QID PRN #8.5 g 05/05/21 08/06/21 Rx aerosol inhaler (Ventolin HFA) budesonide-formoterol HFA 160 2 puff INH BID 05/27/21 08/06/21 History mcg-4.5 mcg/actuation aerosol inhaler (Symbicort) ondansetron 4 mg disintegrating 4 mg TRANSLINGUAL Q6H PRN 05/27/21 08/06/21 History tablet pantoprazole 40 mg tablet,delayed 40 mg PO QAM 05/27/21 08/06/21 History release (Protonix) ropinirole 0.25 mg tablet 0.25 mg PO HS 05/27/21 08/06/21 History umeclidinium 62.5 mcg/actuation 1 inh INHALATION DAILY 06/30/21 08/06/21 History blister powder for inhalation ergocalciferol (vitamin D2) 1,250 50,000 unit PO Q7D@2100 #8 cap 07/08/21 08/06/21 Rx mcg (50,000 unit) capsule docusate sodium 100 mg capsule 100 mg PO QAM 08/06/21 08/06/21 History diazepam 2 mg tablet 1 mg PO BID PRN #10 tab 08/17/21 Rx hydrocodone 5 mg-acetaminophen 325 1 tab PO Q4H PRN #20 tab 08/17/21 Rx mg tablet Past Med/Surg History Medical History Aneurysm of infrarenal abdominal aorta Anxiety BCC (basal cell carcinoma of skin) on left side of face---"s/p MOHS surgery" Chronic diastolic heart failure Chronic respiratory failure with hypoxia and hypercapnia Chronic respiratory failure with hypoxia, on home O2 therapy OXYGEN 3L/MIN VIA NC COPD (chronic obstructive pulmonary disease) Degenerative disc disease Dissection of left carotid artery Dyslipidemia Fibromyalgia GERD (gastroesophageal reflux disease) Gram-positive bacteremia Hypertension Obesity hypoventilation syndrome On home oxygen therapy 3L N/C at all times Osteoporosis Sinus tachycardia SOB (shortness of breath) on exertion Tremor of both hands Wrist fracture, left Surgical History History of bilateral cataract extraction History of carpal tunnel surgery of right wrist History of colonoscopy with polypectomy History of esophagogastroduodenoscopy (EGD) History of left breast biopsy benign History of mandibular surgery jaw fx History of repair of left rotator cuff History of repair of right rotator cuff History of tooth extraction S/P Mohs surgery for basal cell carcinoma Status post appendectomy Status post excision of lipoma removed off neck x2 Status post hysterectomy Status post repair of ventral hernia Family History Grandfather (Maternal) Family hx of colon cancer Father FH: kidney cancer Family/Other Family history of diabetes mellitus nephew Other Kidney disease Lung disease No family history of adverse response to anesthesia Social History Smoking Status: Former smoker Tobacco Type: Cigarettes Cigarettes Per Day: unsure when she quit; Second Hand Exposure: No; Hx Alcohol Use: Yes Alcohol type: hard liquor Hx Substance Use: No Preferred Language: Pashto Communication Ability: Effective 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 Beliefs That Will Affect Care: None marital status: / Current Living Situation: Alone current occupational status: retired How many Children do You have: 3 Other Information That Helps Us Care for You: No Feels Safe at Home: Yes Safety Concerns: Feels Safe At This Time Assistive Devices: Oxygen - Continuous and Walker Review of Systems Review of Systems: All systems reviewed & are unremarkable except as noted in HPI & below Constitutional: no fever, no chills, no sweats, no weakness and no anorexia Eyes: no diplopia and no worsening vision Ear, Nose, Mouth, Throat: no ear pain, no nasal congestion and no sore throat Respiratory: + cough and + sputum production; no dyspnea and no hemoptysis Cardiovascular: no chest pain, no palpitations, no lightheadedness, no syncope and no edema Gastrointestinal: no abdominal pain, no nausea, no vomiting, no diarrhea/loose stools and no blood in stools Genitourinary: no dysuria, no urinary frequency and no hematuria Musculoskeletal: + back pain; no radicular pain Integumentary: no rash and no skin ulcer Neurologic: no localized weakness, no loss of sensation, no paresthesia, no seizure-like activity and no headache(s) Physical Exam Constitutional: well developed and well nourished; no acute distress Eyes: + anicteric sclerae ENMT: external ear and nose normal, oropharynx normal Neck: trachea midline Respiratory: no respiratory distress and no labored breathing Auscultation: + wheezes (occasional faint expiratory); no rales and no rhonchi Cardiovascular: Rate/Rhythm: regular rhythm and + tachycardic Vessels: dorsalis pedis pulses present and radial pulses present Gastrointestinal (Abdomen): Inspection/Auscultation: normal bowel sounds; ab domen not distended Percussion/Palpation: abdomen soft; abdomen nontender Musculoskeletal: Head/Neck/Chest: normocephalic, head atraumatic and neck supple Skin: normal turgor; no rashes and no jaundice Neurologic: moves all extremities; no focal motor deficits Psychiatric: A+Ox3, euthymic affect Results & Data Results & Data ([facility]) Vital Signs (Past 12 Hours) Vital Signs Temp Pulse Resp BP Pulse Ox 08/06/21 14:45 111 H 26 H 08/06/21 14:30 101 H 21 100 08/06/21 14:15 97 H 22 100 08/06/21 14:00 97 H 19 178/100 H 100 08/06/21 13:45 96 H 29 H 87 L 08/06/21 13:34 108 H 29 H 42 L 08/06/21 13:15 91 H 18 99 08/06/21 13:00 93 H 23 99 08/06/21 12:54 100 H 22 08/06/21 12:30 99 H 16 146/65 H 96 08/06/21 12:15 101 H 24 95 08/06/21 12:00 106 H 27 H 95 08/06/21 11:45 99 H 26 H 96 08/06/21 11:30 105 H 36 H 98 08/06/21 11:26 108 H 25 H 99 08/06/21 11:20 37.3 C 103 H 18 151/99 H 98 Laboratory Results Laboratory Results - last 24 hr 08/06/21 08/06/21 08/06/21 15:05 15:05 Unknown WBC 10.10 RBC 4.34 Hgb 12.0 Hct 40.8 MCV 94.0 MCH 27.6 MCHC 29.4 L RDW Std Deviation 48.5 H RDW Coeff of Reg 14.1 Plt Count 201 MPV 11.2 H Immature Gran % (Auto) 0.2 Neut % (Auto) 80.6 Lymph % (Auto) 8.0 [place] % (Auto) 9.8 Eos % (Auto) 1.3 Baso % (Auto) 0.1 Neut # (Auto) 8.14 H Lymph # (Auto) 0.81 L [place] # (Auto) 0.99 H Eos # (Auto) 0.13 Baso # (Auto) 0.01 Immature Gran # (Auto) 0.02 Sodium Potassium Chloride Carbon Dioxide Anion Gap BUN Creatinine Est Cr Clr Drug Dosing Est GFR ( Amer) Est GFR (Non-Af Amer) BUN/Creatinine Ratio Glucose Calcium Total Bilirubin AST ALT Alkaline Phosphatase Total Protein Albumin Globulin Albumin/Globulin Ratio Lipase COVID-19 Eval Order Covid19 at [facility] SARS-CoV-2 (PCR) NEGATIVE 08/06/21 Unknown WBC RBC Hgb Hct MCV MCH MCHC RDW Std Deviation RDW Coeff of Reg Plt Count MPV Immature Gran % (Auto) Neut % (Auto) Lymph % (Auto) [place] % (Auto) Eos % (Auto) Baso % (Auto) Neut # (Auto) Lymph # (Auto) [place] # (Auto) Eos # (Auto) Baso # (Auto) Immature Gran # (Auto) Sodium 140 Potassium 4.1 Chloride 93 L Carbon Dioxide 44 H* Anion Gap 4.0 BUN 19 H Creatinine 0.59 L Est Cr Clr Drug Dosing Not Reportable Est GFR ( Amer) 102.5 Est GFR (Non-Af Amer) 88.4 BUN/Creatinine Ratio 31.9 H Glucose 120 H Calcium 10.2 H Total Bilirubin 1.1 H AST 9 L ALT 15 Alkaline Phosphatase 90 Total Protein 7.4 Albumin 3.4 Globulin 4.0 Albumin/Globulin Ratio 0.9 Lipase 56 L COVID-19 Eval Order SARS-CoV-2 (PCR) Diagnostic Findings CT Abd/Pel 08/06/21 - IMPRESSION: 1. Acute to subacute mild T12 compression fracture. This is new since CT of June 30, 2021. 2. Redemonstration of an L3 compression fracture with interval increase in vertebral body height loss s torsten prior exam. 3. No change in a 3.2 cm infrarenal abdominal aortic aneurysm. No rupture. 4. Cholelithiasis. Medications Administered Discontinued Medications Sodium Chloride (Nss 1000ml) 1,000 mls @ 999 mls/hr IV .Q1H1M STA Stop: 08/06/21 12:22 Last Infusion: 08/06/21 12:40 Dose: 0 mls/hr Documented by: [id number] Admin: 08/06/21 11:36 Dose: 999 mls/hr Documented by: [id number] Ioversol (Optiray 320 100ml) 98 ml IV ONCE ONE Stop: 08/06/21 12:53 Last Admin: 08/06/21 12:52 Dose: 98 ml Documented by: [id number] Metoprolol Succinate (Metoprolol Succ 50mg Ext Rel Tab) 50 mg PO NOW STA Stop: 08/06/21 11:23 Last Admin: 08/06/21 11:59 Dose: 50 mg Documented by: [id number] Morphine Sulfate (Morphine Sulfate 4 Mg/Ml 1 Ml Carp\\Vial) 4 mg IV NOW STA Stop: 08/06/21 11:23 Last Admin: 08/06/21 11:37 Dose: 4 mg Documented by: [id number] Morphine Sulfate (Morphine Sulfate 4 Mg/Ml 1 Ml Carp\\Vial) 4 mg IV NOW STA Stop: 08/06/21 14:35 Last Admin: 08/06/21 15:03 Dose: 4 mg Documented by: [id number] Ondansetron HCl (Ondansetron Inj 2 Mg/Ml 2 Ml Vial) 4 mg IV NOW STA Stop: 08/06/21 11:23 Last Admin: 08/06/21 11:37 Dose: 4 mg Documented by: [id number] Code Status & VTE Plan VTE Prophylaxis Plan VTE Prophylaxis will be ordered: Yes Supervising Physician Co-Signing Physician Notes Pt was seen and examined. Agreed with Karthik PETERSEN exam, assessment and plan. 75 y/o female with a PMH of chronic hypoxemic and hypercapnic respiratory failure on 2 L of O2 at baseline, COPD, HTN, HLD, CHF, known infrarenal abdominal aortic aneurysm, GERD, fibromyalgia, essential tremor, and hx of left carotid artery dissection who presents ED secondary to worsening of low back pain x 4 days. Pt was admitted last month for low back pain due to L3 compression fracture. In the last admission Ortho recommended conservative management. She said that about few days ago she developed worsening back pain, 10 out 10, worsening with walking. She is on chronic O2 at home and reports she is using her baseline 2 liters. Denies any bowel and bladder loss, numbness, tingling, dysuria, hematuria, flank pain, N/V. CT showed abd/pelvis showed acute to subacute mild T12 compression fracture. This is new since CT of June 30, 2021.Redemonstration of an L3 compression fracture with interval increase in vertebral body height loss since prior exam. Dominic continue pain control. Ortho consult. PT/OT eval. Fall precaution. Continue monitor closely. MD Gisele (1) COPD (chronic obstructive pulmonary disease) COPD type: unspecified COPD Qualified Code(s): J44.9 - Chronic obstructive pulmonary disease, unspecified (2) GERD (gastroesophageal reflux disease) Esophagitis presence: esophagitis presence not specified Qualified Code(s): K21.9 - Gastro-esophageal reflux disease without esophagitis (3) Hypertension Hypertension type: unspecified Qualified Code(s): I10 - Essential (primary) hypertension
[2021-08-06] MEDS ORDERED: ALBUT/IPRATROP 3MG/0.5MG NEB 3 ML VIAL INH PRN (18:14)
[2021-08-06] MEDS: rOPINIRole HCL 0.25 MG TABLET PO SCH (21:13)
[2021-08-06] MEDS: LIDOCAINE 5% 1 PATCH TD SCH (21:13)
[2021-08-06] MEDS: diazePAM 2 MG TABLET PO SCH (21:15)
[2021-08-07] MEDS: oxyCODONE HCL IR 5 MG TAB (IMMEDIATE RELEASE) PO PRN ×3 (01:54→19:56)
[2021-08-07] MEDS: ATORVASTATIN 40 MG TAB PO SCH (07:43)
[2021-08-07] MEDS: LOSARTAN POTASSIUM 25 MG TAB PO SCH (07:43)
[2021-08-07] MEDS: DOCUSATE SODIUM 100 MG CAP PO SCH (07:43)
[2021-08-07] MEDS: CLOPIDOGREL BISULFATE 75 MG TAB PO SCH (07:43)
[2021-08-07] MEDS: ASPIRIN 81 MG ECTAB PO SCH (07:43)
[2021-08-07] MEDS: MAGNESIUM OXIDE 400 MG TAB PO SCH (07:44)
[2021-08-07] MEDS: METOPROLOL SUCC 50MG EXT REL TAB PO SCH (07:44)
[2021-08-07] MEDS: ROFLUMILAST 500 MCG TAB PO SCH (07:44)
[2021-08-07] MEDS: ENOXAPARIN INJ 40 MG/0.4 ML SYR SQ SCH (07:44)
[2021-08-07] MEDS: UMECLIDINIUM BROMIDE 62.5MCG/BLISTER 7 PUFFS/INHALER INH SCH (07:45)
[2021-08-07] MEDS: PANTOprazole 40 MG TAB PO SCH (07:45)
[2021-08-07] MEDS: LIDOCAINE 5% 1 PATCH TD SCH (07:46)
[2021-08-07] MEDS: FLUTICASONE/VILANTEROL 100/25MCG 14 PUFFS/INHALER INH SCH (07:46)
[2021-08-07] MEDS: diazePAM 2 MG TABLET PO SCH ×2 (07:50→20:42)
[2021-08-07] MEDS ORDERED: Influenza Vaccine-High Dose (Fluzone-HD) PF 65+ 0.7 ML SYR IM ONE (08:00)
[2021-08-07] MEDS: KETOROLAC TROMETHAMINE 15 MG/ML VIAL IV PRN (17:09)
[2021-08-07] MEDS: rOPINIRole HCL 0.25 MG TABLET PO SCH (20:42)
--- NOTE | 2021-08-07 23:57 | Hospitalist Progress Note ---
Date of Service August 07, 2021 Assessment & Plan (1) T12 compression fracture: (2) Intractable back pain: (3) COPD (chronic obstructive pulmonary disease): (4) Aneurysm of infrarenal abdominal aorta: (5) Obesity hypoventilation syndrome: (6) Chronic respiratory failure with hypoxia and hypercapnia: (7) Hypertension: (8) GERD (gastroesophageal reflux disease): (9) Fibromyalgia: (10) Dyslipidemia: (11) Osteoporosis: Plan: Low Back Pain Ambulatory dysfunction Pt presents to the ED today with acute intractable back pain x 4 days, not responding to oral pain regimen, with new T12 compression fracture on imaging today. No clear inciting event, no recent falls, but pt is coughing due to underlying respiratory issues and has known osteoporosis. CT abd/pelvis showed acute to subacute mild T12 compression fracture. This is new since CT of June 30, 2021. Redemonstration of an L3 compression fracture with interval increase in vertebral body height loss since prior exam Continue Pain controlled with oxycodone and lidocaine Continue PT/OT eval Ortho on board Case discussed with ortho Dr. Silva that recommended conservative management. No plan for any surgical intervention Fall precaution Not interested to go to rehab Plan to discharge home with home health tomorrow Vitamin D deficiency Level 23 Vitamin D 50,000 units every week x4 weeks, then repeat vitamin D levels Chronic hypoxic respiratory failure with hypercapnia on 3 L of O2 COPD No acute exacerbation Continue Symbicort and Umeclidinium as well as Daliresp BiPAP at bedtime follows [facility] Chronic diastolic CHF Continue aspirin, statin, losartan and metoprolol No cardiac symptoms History of left carotid artery dissection Found incidentally during recent admission in May Was seen and evaluated by vascular surgery, no acute intervention On Plavix and encouraged to take for at least 30 day Follow up with Vascular surgery Infrarenal abdominal aortic aneurysm CT showed no change in a 3.2 cm infrarenal abdominal aortic aneurysm. Previously seen on prior imaging Follow-up with vascular surgery as outpatient Stable DVT Prophylaxis: Lovenox Code Status: full code Disposition Will discharge home with home health tomorrow Admission and Anticipated Discharge Date Admission Date: August 06, 2021 Subjective Pt was seen and examined for follow up of back pain Lying in bed with no acute distress Pt was able to walk to the bathroom with her cane with assistance She does not want to go to rehab Spoke to Ortho Dr. Silva that does not plan to do any surgical intervention Denies any chest pain, palpitation, dizziness and SOB Review of Systems Review of Systems: All systems reviewed & are unremarkable except as noted in Subjective Physical Exam Physical Exam: General- No acute distress Head- atraumatic Eyes- PERRL, EOMI, ENT- oropharynx clear Neck- supple, no JVD Lungs- clear to auscultation Heart- regular rhythm; no murmur Abdomen- normal bowel sounds, soft, nontender Extremities- no calf tenderness Neuro- alert, oriented x 3; PERRL, EOMI; no facial palsy; no dysarthria Skin- warm & dry Results & Data Results & Data ([facility]) Vital Signs (Past 12 Hours) Vital Signs Temp Pulse Resp BP Pulse Ox 08/07/21 16:20 36.9 C 86 18 119/81 94 (1) COPD (chronic obstructive pulmonary disease) COPD type: unspecified COPD Qualified Code(s): J44.9 - Chronic obstructive pulmonary disease, unspecified (2) GERD (gastroesophageal reflux disease) Esophagitis presence: esophagitis presence not specified Qualified Code(s): K21.9 - Gastro-esophageal reflux disease without esophagitis (3) Hypertension Hypertension type: unspecified Qualified Code(s): I10 - Essential (primary) hypertension
[2021-08-08] MEDS: oxyCODONE HCL IR 5 MG TAB (IMMEDIATE RELEASE) PO PRN ×3 (03:26→21:19)
[2021-08-08] MEDS: ATORVASTATIN 40 MG TAB PO SCH (07:44)
[2021-08-08] MEDS: ASPIRIN 81 MG ECTAB PO SCH (07:44)
[2021-08-08] MEDS: CLOPIDOGREL BISULFATE 75 MG TAB PO SCH (07:44)
[2021-08-08] MEDS: PANTOprazole 40 MG TAB PO SCH (07:45)
[2021-08-08] MEDS: LIDOCAINE 5% 1 PATCH TD SCH (07:45)
[2021-08-08] MEDS: LOSARTAN POTASSIUM 25 MG TAB PO SCH (07:45)
[2021-08-08] MEDS: ROFLUMILAST 500 MCG TAB PO SCH (07:45)
[2021-08-08] MEDS: MAGNESIUM OXIDE 400 MG TAB PO SCH (07:45)
[2021-08-08] MEDS: FLUTICASONE/VILANTEROL 100/25MCG 14 PUFFS/INHALER INH SCH (07:46)
[2021-08-08] MEDS: ENOXAPARIN INJ 40 MG/0.4 ML SYR SQ SCH (07:46)
[2021-08-08] MEDS: UMECLIDINIUM BROMIDE 62.5MCG/BLISTER 7 PUFFS/INHALER INH SCH (07:46)
[2021-08-08] MEDS: METOPROLOL SUCC 50MG EXT REL TAB PO SCH (07:47)
[2021-08-08] MEDS: diazePAM 2 MG TABLET PO SCH ×2 (07:49→20:26)
[2021-08-08] MEDS: DOCUSATE SODIUM 100 MG CAP PO SCH (07:49)
[2021-08-08] MEDS: KETOROLAC TROMETHAMINE 15 MG/ML VIAL IV PRN (09:37)
--- NOTE | 2021-08-08 10:03 | Orthopedic Consultation ---
Date of Consultation August 08, 2021 Assessment & Plan (1) Closed T12 fracture: Assessment T12 compression fracture. Plan at this time patient has multiple medical issues. We discussed possible bracing but my concern is any restriction on her lung capacity would be a detriment in light of her severe lung disease. She is clearly a very poor surgical candidate. I suggest we attempt pain control. She is comfortable with possible rehab placement. She decided that today. I did order Miacalcin nasal spray and the K pad. History of Present Illness Reason for Consultation: Patient complaining of back pain Attending Physician: Tosin Jaquez MD History of Present Illness This is a 75-year-old female that submitted the hospital multiple medical issues including worsening back pain. She does have a history of compression fractures remotely but does have a new fracture at T12. She denies any numbness or tingling in the perineal area or lower extremities. Denies any motor deficit. She is struggling with pain control at this time. Allergies Allergy/AdvReac Type Severity Reaction Status Date / Time duloxetine [From Cymbalta] Allergy Mild Rash Verified 08/06/21 12:19 naproxen AdvReac Mild GI SYMPTOMS Verified 08/06/21 12:19 Home Medications Medication Instructions Recorded Confirmed Type atorvastatin 40 mg tablet (Lipitor) 40 mg PO QAM 12/14/18 08/06/21 History losartan 25 mg tablet (Cozaar) 25 mg PO QAM 12/14/18 08/06/21 History magnesium oxide 400 mg PO QAM 02/13/19 08/06/21 History metoprolol succinate 50 mg 50 mg PO QAM 04/22/19 08/06/21 History tablet,extended release 24 hr (Toprol XL) Oxygen Home #1 ea 11/05/19 06/30/21 Rx roflumilast 250 mcg tablet 250 mcg PO QAM #90 tab 06/30/20 08/06/21 Rx (Daliresp) aspirin 81 mg tablet,delayed 81 mg PO QAM 01/19/21 08/06/21 History release (Aspirin Low Dose) multivitamin with minerals-folic 2 tab PO QAM 03/04/21 08/06/21 History acid 200 mcg chewable tablet (Multivitamin Gummies) ipratropium 0.5 mg-albuterol 3 mg 3 ml INHALATION Q4H PRN 03/22/21 08/06/21 History (2.5 mg base)/3 mL nebulization soln albuterol sulfate 90 mcg/actuation 2 puff INHALATION QID PRN #8.5 g 05/05/21 08/06/21 Rx aerosol inhaler (Ventolin HFA) budesonide-formoterol HFA 160 2 puff INH BID 05/27/21 08/06/21 History mcg-4.5 mcg/actuation aerosol inhaler (Symbicort) ondansetron 4 mg disintegrating 4 mg TRANSLINGUAL Q6H PRN 05/27/21 08/06/21 History tablet pantoprazole 40 mg tablet,delayed 40 mg PO QAM 05/27/21 08/06/21 History release (Protonix) ropinirole 0.25 mg tablet 0.25 mg PO HS 05/27/21 08/06/21 History umeclidinium 62.5 mcg/actuation 1 inh INHALATION DAILY 06/30/21 08/06/21 History blister powder for inhalation ergocalciferol (vitamin D2) 1,250 50,000 unit PO Q7D@2100 #8 cap 07/08/21 08/06/21 Rx mcg (50,000 unit) capsule clopidogrel 75 mg tablet (Plavix) 75 mg PO QAM 08/06/21 08/06/21 History docusate sodium 100 mg capsule 100 mg PO QAM 08/06/21 08/06/21 History Patient History Medical History Aneurysm of infrarenal abdominal aorta Anxiety BCC (basal cell carcinoma of skin) on left side of face---"s/p MOHS surgery" Chronic diastolic heart failure Chronic respiratory failure with hypoxia and hypercapnia Chronic respiratory failure with hypoxia, on home O2 therapy OXYGEN 3L/MIN VIA NC COPD (chronic obstructive pulmonary disease) Degenerative disc disease Dissection of left carotid artery Dyslipidemia Fibromyalgia GERD (gastroesophageal reflux disease) Gram-positive bacteremia Hypertension Obesity hypoventilation syndrome On home oxygen therapy 3L N/C at all times Osteoporosis Sinus tachycardia SOB (shortness of breath) on exertion Tremor of both hands Wrist fracture, left Surgical History History of bilateral cataract extraction History of carpal tunnel surgery of right wrist History of colonoscopy with polypectomy History of esophagogastroduodenoscopy (EGD) History of left breast biopsy benign History of mandibular surgery jaw fx History of repair of left rotator cuff History of repair of right rotator cuff History of tooth extraction S/P Mohs surgery for basal cell carcinoma Status post appendectomy Status post excision of lipoma removed off neck x2 Status post hysterectomy Status post repair of ventral hernia Family History Grandfather (Maternal) Family hx of colon cancer Father FH: kidney cancer Family/Other Family history of diabetes mellitus nephew Other Kidney disease Lung disease No family history of adverse response to anesthesia Social History Smoking Status: Former smoker Tobacco Type: Cigarettes Cigarettes Per Day: unsure when she quit; Second Hand Exposure: No; Hx Alcohol Use: Yes Alcohol type: hard liquor Hx Substance Use: No Preferred Language: Singaporean Communication Ability: Effective 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 She is good strength testing lower extremities. She exhibits discomfort only with motion. When she is still she is quite comfortable. Results & Data ([facility]) Vital Signs (Past 12 Hours) Vital Signs Temp Pulse Resp BP Pulse Ox 08/08/21 08:15 36.4 C L 95 H 18 111/73 95 08/08/21 03:51 36.9 C 78 18 109/67 96 (1) Closed T12 fracture Encounter type: initial encounter Fracture morphology: unspecified fracture morphology Qualified Code(s): S22.089A - Unspecified fracture of T11-T12 vertebra, initial encounter for closed fracture
[2021-08-08] MEDS: CALCITONIN SALMON NA 200 IU/AC 3.7 ML BTL SCH (11:30)
--- NOTE | 2021-08-08 12:25 | Hospitalist Progress Note ---
Date of Service August 08, 2021 Assessment & Plan (1) T12 compression fracture: (2) Intractable back pain: (3) COPD (chronic obstructive pulmonary disease): (4) Aneurysm of infrarenal abdominal aorta: (5) Obesity hypoventilation syndrome: (6) Chronic respiratory failure with hypoxia and hypercapnia: (7) Hypertension: (8) GERD (gastroesophageal reflux disease): (9) Fibromyalgia: (10) Dyslipidemia: (11) Osteoporosis: Plan: Low Back Pain Ambulatory dysfunction Pt presents to the ED today with acute intractable back pain x 4 days, not responding to oral pain regimen, with new T12 compression fracture on imaging today. No clear inciting event, no recent falls, but pt is coughing due to underlying respiratory issues and has known osteoporosis. CT abd/pelvis showed acute to subacute mild T12 compression fracture. This is new since CT of June 30, 2021. Redemonstration of an L3 compression fracture with interval increase in vertebral body height loss since prior exam Continue Pain controlled with oxycodone and lidocaine Continue PT/OT eval Ortho on board Case discussed with ortho Dr. Silva that recommended conservative management. No plan for any surgical intervention K pad order by Ortho Fall precaution Pt would like to go to Rehab after talking to ortho Vitamin D deficiency Level 23 Vitamin D 50,000 units every week x4 weeks, then repeat vitamin D levels Chronic hypoxic respiratory failure with hypercapnia on 3 L of O2 COPD No acute exacerbation Continue Symbicort and Umeclidinium as well as Daliresp BiPAP at bedtime follows [facility] Chronic diastolic CHF Continue aspirin, statin, losartan and metoprolol No cardiac symptoms History of left carotid artery dissection Found incidentally during recent admission in May Was seen and evaluated by vascular surgery, no acute intervention On Plavix and encouraged to take for at least 30 day Follow up with Vascular surgery Infrarenal abdominal aortic aneurysm CT showed no change in a 3.2 cm infrarenal abdominal aortic aneurysm. Previously seen on prior imaging Follow-up with vascular surgery as outpatient Stable DVT Prophylaxis: Lovenox Code Status: full code Disposition Waiting for placement to rehab Admission and Anticipated Discharge Date Admission Date: August 07, 2021 Subjective Pt was seen and examined for follow up of back pain Lying in bed with no acute distress She said that she continues to have back pain, but seems to slightly improves She said that she spoke to ortho Dr. Shira Pt said that she is willing to go to rehab to get better Denies any chest pain, palpitation, dizziness and SOB Review of Systems Review of Systems: All systems reviewed & are unremarkable except as noted in Subjective Physical Exam Physical Exam: General- No acute distress Head- atraumatic Eyes- PERRL, EOMI, ENT- oropharynx clear Neck- supple, no JVD Lungs- clear to auscultation Heart- regular rhythm; no murmur Abdomen- normal bowel sounds, soft, nontender Extremities- no calf tenderness Neuro- alert, oriented x 3; PERRL, EOMI; no facial palsy; no dysarthria Skin- warm & dry Results & Data Results & Data ([facility]) Vital Signs (Past 12 Hours) Vital Signs Temp Pulse Resp BP Pulse Ox 08/08/21 11:21 37.2 C 88 18 108/67 95 08/08/21 08:15 36.4 C L 95 H 18 111/73 95 08/08/21 03:51 36.9 C 78 18 109/67 96 (1) COPD (chronic obstructive pulmonary disease) COPD type: unspecified COPD Qualified Code(s): J44.9 - Chronic obstructive pulmonary disease, unspecified (2) GERD (gastroesophageal reflux disease) Esophagitis presence: esophagitis presence not specified Qualified Code(s): K21.9 - Gastro-esophageal reflux disease without esophagitis (3) Hypertension Hypertension type: unspecified Qualified Code(s): I10 - Essential (primary) hypertension
[2021-08-08] MEDS: rOPINIRole HCL 0.25 MG TABLET PO SCH (20:26)
[2021-08-09] MEDS: oxyCODONE HCL IR 5 MG TAB (IMMEDIATE RELEASE) PO PRN ×3 (06:27→19:35)
[2021-08-09] MEDS: CLOPIDOGREL BISULFATE 75 MG TAB PO SCH (08:07)
[2021-08-09] MEDS: ROFLUMILAST 500 MCG TAB PO SCH (08:07)
[2021-08-09] MEDS: ATORVASTATIN 40 MG TAB PO SCH (08:07)
[2021-08-09] MEDS: LOSARTAN POTASSIUM 25 MG TAB PO SCH (08:07)
[2021-08-09] MEDS: LIDOCAINE 5% 1 PATCH TD SCH (08:08)
[2021-08-09] MEDS: FLUTICASONE/VILANTEROL 100/25MCG 14 PUFFS/INHALER INH SCH (08:08)
[2021-08-09] MEDS: METOPROLOL SUCC 50MG EXT REL TAB PO SCH (08:08)
[2021-08-09] MEDS: MAGNESIUM OXIDE 400 MG TAB PO SCH (08:09)
[2021-08-09] MEDS: UMECLIDINIUM BROMIDE 62.5MCG/BLISTER 7 PUFFS/INHALER INH SCH (08:09)
[2021-08-09] MEDS: PANTOprazole 40 MG TAB PO SCH (08:09)
[2021-08-09] MEDS: ASPIRIN 81 MG ECTAB PO SCH (08:12)
[2021-08-09] MEDS: ENOXAPARIN INJ 40 MG/0.4 ML SYR SQ SCH (08:15)
[2021-08-09] MEDS: CALCITONIN SALMON NA 200 IU/AC 3.7 ML BTL SCH (08:15)
[2021-08-09] MEDS: DOCUSATE SODIUM 100 MG CAP PO SCH (08:15)
[2021-08-09] MEDS: diazePAM 2 MG TABLET PO SCH ×2 (08:15→20:07)
[2021-08-09] MEDS: rOPINIRole HCL 0.25 MG TABLET PO SCH (20:07)
--- NOTE | 2021-08-09 21:02 | Hospitalist Progress Note ---
Date of Service August 09, 2021 Assessment & Plan (1) T12 compression fracture: (2) Intractable back pain: (3) COPD (chronic obstructive pulmonary disease): (4) Aneurysm of infrarenal abdominal aorta: (5) Obesity hypoventilation syndrome: (6) Chronic respiratory failure with hypoxia and hypercapnia: (7) Hypertension: (8) GERD (gastroesophageal reflux disease): (9) Fibromyalgia: (10) Dyslipidemia: (11) Osteoporosis: Plan: Low Back Pain Ambulatory dysfunction Pt presents to the ED today with acute intractable back pain x 4 days, not responding to oral pain regimen, with new T12 compression fracture on imaging today. No clear inciting event, no recent falls, but pt is coughing due to underlying respiratory issues and has known osteoporosis. CT abd/pelvis showed acute to subacute mild T12 compression fracture. This is new since CT of June 30, 2021. Redemonstration of an L3 compression fracture with interval increase in vertebral body height loss since prior exam Continue Pain controlled with oxycodone and lidocaine Continue PT/OT eval Ortho on board Case discussed with ortho Dr. Silva that recommended conservative management. No plan for any surgical intervention K pad order by Ortho Fall precaution Pt would like to go to Rehab after talking to ortho Waiting for approval to go [facility] rehab Vitamin D deficiency Level 23 Vitamin D 50,000 units every week x4 weeks, then repeat vitamin D levels Chronic hypoxic respiratory failure with hypercapnia on 3 L of O2 COPD No acute exacerbation Continue Symbicort and Umeclidinium as well as Daliresp BiPAP at bedtime follows [facility] Chronic diastolic CHF Continue aspirin, statin, losartan and metoprolol No cardiac symptoms History of left carotid artery dissection Found incidentally during recent admission in May Was seen and evaluated by vascular surgery, no acute intervention On Plavix and encouraged to take for at least 30 day Follow up with Vascular surgery Infrarenal abdominal aortic aneurysm CT showed no change in a 3.2 cm infrarenal abdominal aortic aneurysm. Previously seen on prior imaging Follow-up with vascular surgery as outpatient Stable DVT Prophylaxis: Lovenox Code Status: full code Disposition Waiting for placement Admission and Anticipated Discharge Date Admission Date: August 07, 2021 Subjective Pt was seen and examined for follow up of back pain Lying in bed with no acute distress She said that she continues to have back pain, but seems to slightly improves She is waiting for placement to rehab Denies any chest pain, palpitation, dizziness and SOB Review of Systems Review of Systems: All systems reviewed & are unremarkable except as noted in Subjective Physical Exam Physical Exam: General- No acute distress Head- atraumatic Eyes- PERRL, EOMI, ENT- oropharynx clear Neck- supple, no JVD Lungs- clear to auscultation Heart- regular rhythm; no murmur Abdomen- normal bowel sounds, soft, nontender Extremities- no calf tenderness Neuro- alert, oriented x 3; PERRL, EOMI; no facial palsy; no dysarthria Skin- warm & dry Results & Data Results & Data ([facility]) Vital Signs (Past 12 Hours) Vital Signs Temp Pulse Resp BP Pulse Ox 08/09/21 15:42 37.1 C 73 18 125/69 94 (1) COPD (chronic obstructive pulmonary disease) COPD type: unspecified COPD Qualified Code(s): J44.9 - Chronic obstructive pulmonary disease, unspecified (2) GERD (gastroesophageal reflux disease) Esophagitis presence: esophagitis presence not specified Qualified Code(s): K21.9 - Gastro-esophageal reflux disease without esophagitis (3) Hypertension Hypertension type: unspecified Qualified Code(s): I10 - Essential (primary) hypertension
[2021-08-09] MEDS: KETOROLAC TROMETHAMINE 15 MG/ML VIAL IV PRN (21:33)
[2021-08-10] MEDS: oxyCODONE HCL IR 5 MG TAB (IMMEDIATE RELEASE) PO PRN ×4 (02:23→20:26)
[2021-08-10] MEDS: ASPIRIN 81 MG ECTAB PO SCH (08:26)
[2021-08-10] MEDS: MAGNESIUM OXIDE 400 MG TAB PO SCH (08:27)
[2021-08-10] MEDS: METOPROLOL SUCC 50MG EXT REL TAB PO SCH (08:27)
[2021-08-10] MEDS: LOSARTAN POTASSIUM 25 MG TAB PO SCH (08:28)
[2021-08-10] MEDS: ATORVASTATIN 40 MG TAB PO SCH (08:28)
[2021-08-10] MEDS: ROFLUMILAST 500 MCG TAB PO SCH (08:29)
[2021-08-10] MEDS: LIDOCAINE 5% 1 PATCH TD SCH (08:32)
[2021-08-10] MEDS: ENOXAPARIN INJ 40 MG/0.4 ML SYR SQ SCH (08:34)
[2021-08-10] MEDS: DOCUSATE SODIUM 100 MG CAP PO SCH (08:36)
[2021-08-10] MEDS: FLUTICASONE/VILANTEROL 100/25MCG 14 PUFFS/INHALER INH SCH (08:36)
[2021-08-10] MEDS: UMECLIDINIUM BROMIDE 62.5MCG/BLISTER 7 PUFFS/INHALER INH SCH (08:37)
[2021-08-10] MEDS: CLOPIDOGREL BISULFATE 75 MG TAB PO SCH (08:38)
[2021-08-10] MEDS: CALCITONIN SALMON NA 200 IU/AC 3.7 ML BTL SCH (08:40)
[2021-08-10] MEDS: diazePAM 2 MG TABLET PO SCH ×2 (08:44→20:26)
[2021-08-10] MEDS: PANTOprazole 40 MG TAB PO SCH (10:09)
[2021-08-10] MEDS: KETOROLAC TROMETHAMINE 15 MG/ML VIAL IV PRN (15:48)
[2021-08-10] MEDS ORDERED: MAGNESIUM HYDROXIDE SUSP 30 ML UDC PO PRN (17:17)
[2021-08-10] MEDS ORDERED: predniSONE 20 MG TAB PO STA (17:17)
--- NOTE | 2021-08-10 17:18 | Hospitalist Progress Note ---
Date of Service August 10, 2021 Assessment & Plan (1) T12 compression fracture: (2) Intractable back pain: (3) COPD (chronic obstructive pulmonary disease): (4) Aneurysm of infrarenal abdominal aorta: (5) Obesity hypoventilation syndrome: (6) Chronic respiratory failure with hypoxia and hypercapnia: (7) Hypertension: (8) GERD (gastroesophageal reflux disease): (9) Fibromyalgia: (10) Dyslipidemia: (11) Osteoporosis: Plan: per Dr. Jaquez's notes with addendum: Low Back Pain Ambulatory dysfunction Pt presents to the ED today with acute intractable back pain x 4 days, not responding to oral pain regimen, with new T12 compression fracture on imaging today. No clear inciting event, no recent falls, but pt is coughing due to underlying respiratory issues and has known osteoporosis. CT abd/pelvis showed acute to subacute mild T12 compression fracture. This is new since CT of June 30, 2021. Redemonstration of an L3 compression fracture with interval increase in vertebral body height loss since prior exam Continue Pain controlled with oxycodone and lidocaine Continue PT/OT eval Ortho on board Case discussed with ortho Dr. Silva that recommended conservative management. No plan for any surgical intervention K pad order by Ortho Fall precaution Pt would like to go to Rehab after talking to ortho Waiting for approval to go [facility] for rehab 08/10 add Prednisone 20mg daily continue pain meds pt/ot evaluation Vitamin D deficiency Level 23 Vitamin D 50,000 units every week x4 weeks, then repeat vitamin D levels Chronic hypoxic respiratory failure with hypercapnia on 3 L of O2 COPD No acute exacerbation Continue Symbicort and Umeclidinium as well as Daliresp BiPAP at bedtime follows [facility] -- stable Chronic diastolic CHF Continue aspirin, statin, losartan and metoprolol No cardiac symptoms -- euvolemic History of left carotid artery dissection Found incidentally during recent admission in May Was seen and evaluated by vascular surgery, no acute intervention On Plavix and encouraged to take for at least 30 day Follow up with Vascular surgery Infrarenal abdominal aortic aneurysm CT showed no change in a 3.2 cm infrarenal abdominal aortic aneurysm. Previously seen on prior imaging Follow-up with vascular surgery as outpatient Stable DVT Prophylaxis: Lovenox Code Status: full code Disposition Waiting for placement Admission and Anticipated Discharge Date Admission Date: August 07, 2021 Subjective ff up for t12 compression fracture, etc seen resting in bed, not in distress reports back pain about the same as yesterday, worse with movement no leg weakness/numbness no chest pain, dyspnea, palpitations, dizziness no other symptoms Review of Systems Review of Systems: all noted and negative except for above Physical Exam Physical Exam: General- oriented x 3, not in distress, speaks in sentences with no effort or accessory muscle use Head- atraumatic Eyes- PERRL, EOMI, anicteric ENT- oropharynx clear Neck- supple, no JVD, no adenopathy, no thyromegaly; carotids +2/2, no bruits appreciated Lungs- clear to auscultation bilaterally, no rales/wheezes Heart- normal rate, regular rhythm; no murmur, no gallop, no rub appreciated Abdomen- normal bowel sounds, nondistended, soft, nontender, no masses or hepatosplenomegaly Extremities- no pretibial edema, no calf tenderness; peripheral pulses intact back- (+) tenderness on the midback area Neuro- alert, oriented x 3; CN 2-12 grossly intact; motor 5/5 bilaterally;sensation 100% on all extremities; no other gross focal neurologic deficits Skin- warm & dry (1) COPD (chronic obstructive pulmonary disease) COPD type: unspecified COPD Qualified Code(s): J44.9 - Chronic obstructive pulmonary disease, unspecified (2) GERD (gastroesophageal reflux disease) Esophagitis presence: esophagitis presence not specified Qualified Code(s): K21.9 - Gastro-esophageal reflux disease without esophagitis (3) Hypertension Hypertension type: unspecified Qualified Code(s): I10 - Essential (primary) hypertension
[2021-08-10] MEDS: DOCUSATE SODIUM/SENNA 50/8.6MG TAB PO SCH (18:02)
[2021-08-10] MEDS: rOPINIRole HCL 0.25 MG TABLET PO SCH (20:26)
[2021-08-11] MEDS: oxyCODONE HCL IR 5 MG TAB (IMMEDIATE RELEASE) PO PRN ×4 (02:50→20:59)
[2021-08-11] MEDS: ASPIRIN 81 MG ECTAB PO SCH (09:00)
[2021-08-11] MEDS: diazePAM 2 MG TABLET PO SCH ×2 (09:01→20:59)
[2021-08-11] MEDS: ATORVASTATIN 40 MG TAB PO SCH (09:02)
[2021-08-11] MEDS: CLOPIDOGREL BISULFATE 75 MG TAB PO SCH (09:03)
[2021-08-11] MEDS: DOCUSATE SODIUM/SENNA 50/8.6MG TAB PO SCH (09:04)
[2021-08-11] MEDS: DOCUSATE SODIUM 100 MG CAP PO SCH (09:05)
[2021-08-11] MEDS: LOSARTAN POTASSIUM 25 MG TAB PO SCH (09:06)
[2021-08-11] MEDS: MAGNESIUM OXIDE 400 MG TAB PO SCH (09:06)
[2021-08-11] MEDS: PANTOprazole 40 MG TAB PO SCH (09:07)
[2021-08-11] MEDS: METOPROLOL SUCC 50MG EXT REL TAB PO SCH (09:07)
[2021-08-11] MEDS: ROFLUMILAST 500 MCG TAB PO SCH (09:08)
[2021-08-11] MEDS: FLUTICASONE/VILANTEROL 100/25MCG 14 PUFFS/INHALER INH SCH (09:37)
[2021-08-11] MEDS: UMECLIDINIUM BROMIDE 62.5MCG/BLISTER 7 PUFFS/INHALER INH SCH (09:38)
[2021-08-11] MEDS: CALCITONIN SALMON NA 200 IU/AC 3.7 ML BTL SCH (09:41)
[2021-08-11] MEDS: LIDOCAINE 5% 1 PATCH TD SCH (09:44)
[2021-08-11] MEDS: ENOXAPARIN INJ 40 MG/0.4 ML SYR SQ SCH (09:45)
--- NOTE | 2021-08-11 12:19 | Ultrasound Report ---
ULTRASOUND OF THE CAROTID ARTERIES CLINICAL HISTORY: neck pain, ff up left carotid artery dissection COMPARISON: Comparison is made to CTA head and neck 05/27/2021 TECHNIQUE: Real-time, grayscale, and color Doppler sonography of the left carotid arteries is perform ed. Images are reviewed in the transverse and longitudinal planes. FINDINGS: The carotid arteries are patent bilaterally and demonstrate antegrade flow. There is no atherosclerot ic plaque on the right and no atherosclerotic plaque on the left. Normal doppler arterial waveforms a re seen throughout. Velocity measurements are listed below. Common carotid peak systolic velocity (cm/sec): RIGHT: LEFT: 73 ICA proximal peak systolic velocity (cm/sec): RIGHT: LEFT: 101 ICA mid peak systolic velocity (cm/sec): RIGHT: LEFT: 86 ICA distal peak systolic velocity (cm/sec): RIGHT: LEFT: 98 ICA/CC peak systolic ratio: RIGHT: LEFT: 1.4 Antegrade flow was shown in the left vertebral artery. The left external carotid artery is patent. IMPRESSION: 1. There is no sonographic evidence of hemodynamically significant stenosis in the left carotid arter ial system. The previous seen noted dissection flap was not seen on today's exam. 2. Antegrade flow is shown in the left vertebral artery. Society of Radiologists in Ultrasound consensus guidelines: Normal: ICA PSV is <125 cm/sec and no plaque or intimal thickening is visible sonographically additional criteria include ICA/CCA PSV ratio <2.0 and ICA EDV <40 cm/sec <50% ICA stenosis: ICA PSV is <125 cm/sec and plaque or intimal thickening is visible sonographically additional criteria include ICA/CCA PSV ratio <2.0 and ICA EDV <40 cm/sec 50-69% ICA stenosis: ICA PSV is 125-230 cm/sec and plaque is visible sonographically additional criteria include ICA/CCA PSV ratio of 2.0-4.0 and ICA EDV of 40-100 cm/sec ?70% ICA stenosis but less than near occlusion: ICA PSV is >230 cm/sec and visible plaque and luminal narrowing are seen at kowalski-scale and color Dopp ler ultrasound (the higher the Doppler parameters lie above the threshold of 230 cm/sec, the greater the likelihood of severe disease) additional criteria include ICA/CCA PSV ratio >4 and ICA EDV >100 cm/sec ACT 112: Negative or not required by law. Electronically signed by: Nikita Mcgill M.D. 08/11/2021 12:18 PM
[2021-08-11] MEDS: KETOROLAC TROMETHAMINE 15 MG/ML VIAL IV PRN (15:43)
[2021-08-11] MEDS: rOPINIRole HCL 0.25 MG TABLET PO SCH (20:59)
[2021-08-12] MEDS: oxyCODONE HCL IR 5 MG TAB (IMMEDIATE RELEASE) PO PRN ×3 (02:59→16:32)
[2021-08-12] MEDS: ATORVASTATIN 40 MG TAB PO SCH (08:39)
[2021-08-12] MEDS: PANTOprazole 40 MG TAB PO SCH (08:39)
[2021-08-12] MEDS: ROFLUMILAST 500 MCG TAB PO SCH (08:39)
[2021-08-12] MEDS: METOPROLOL SUCC 50MG EXT REL TAB PO SCH (08:41)
[2021-08-12] MEDS: MAGNESIUM OXIDE 400 MG TAB PO SCH (08:41)
[2021-08-12] MEDS: DOCUSATE SODIUM/SENNA 50/8.6MG TAB PO SCH (08:41)
[2021-08-12] MEDS: ASPIRIN 81 MG ECTAB PO SCH (08:41)
[2021-08-12] MEDS: CLOPIDOGREL BISULFATE 75 MG TAB PO SCH (08:41)
[2021-08-12] MEDS: LOSARTAN POTASSIUM 25 MG TAB PO SCH (08:41)
[2021-08-12] MEDS: CALCITONIN SALMON NA 200 IU/AC 3.7 ML BTL SCH (08:42)
[2021-08-12] MEDS: UMECLIDINIUM BROMIDE 62.5MCG/BLISTER 7 PUFFS/INHALER INH SCH (08:42)
[2021-08-12] MEDS: ENOXAPARIN INJ 40 MG/0.4 ML SYR SQ SCH (08:42)
[2021-08-12] MEDS: FLUTICASONE/VILANTEROL 100/25MCG 14 PUFFS/INHALER INH SCH (08:43)
[2021-08-12] MEDS: LIDOCAINE 5% 1 PATCH TD SCH (08:43)
[2021-08-12] MEDS: diazePAM 2 MG TABLET PO SCH ×2 (08:47→20:17)
[2021-08-12] MEDS: DOCUSATE SODIUM 100 MG CAP PO SCH (10:05)
--- NOTE | 2021-08-12 16:12 | Hospitalist Progress Note ---
Date of Service August 12, 2021 Assessment & Plan (1) T12 compression fracture: (2) Intractable back pain: (3) COPD (chronic obstructive pulmonary disease): (4) Aneurysm of infrarenal abdominal aorta: (5) Obesity hypoventilation syndrome: (6) Chronic respiratory failure with hypoxia and hypercapnia: (7) Hypertension: (8) GERD (gastroesophageal reflux disease): (9) Fibromyalgia: (10) Dyslipidemia: (11) Osteoporosis: Plan: This is a 75 y/o female with a PMH of chronic hypoxemic and hypercapnic respiratory failure on 2 L of O2 at baseline, COPD, HTN, HLD, CHF, known infrarenal abdominal aortic aneurysm, GERD, fibromyalgia, essential tremor, and hx of left carotid artery dissection who presents ED secondary to worsening of low back pain x 4 days and was found to have acute to subacute mild T12 compression fracture. Low Back Pain Ambulatory dysfunction Acute to subacute mild T12 compression fracture CT abd/pelvis showed acute to subacute mild T12 compression fracture. This is new since CT of June 30, 2021. Redemonstration of an L3 compression fracture with interval increase in vertebral body height loss since prior exam Continue Pain controlled with oxycodone and lidocaine. Prednisone 20mg daily added on 08/10 Case discussed with ortho Dr. Silva that recommended conservative management. No plan for any surgical intervention K pad order by Ortho Fall precaution Continue PT/OT eval Pain management consulted Awaiting placement Vitamin D deficiency Level 23 Vitamin D 50,000 units every week x4 weeks, then repeat vitamin D levels COPD Chronic hypoxic respiratory failure with hypercapnia on 3 L of O2 Stable; no acute exacerbation Continue Symbicort and Umeclidinium as well as Daliresp BiPAP at bedtime Follows [facility] Chronic diastolic CHF Continue aspirin, statin, losartan and metoprolol No cardiac symptoms Euvolemic History of left carotid artery dissection Found incidentally during recent admission in May Was seen and evaluated by vascular surgery, no acute intervention On Plavix and encouraged to take for at least 30 day Follow up with Vascular surgery Infrarenal abdominal aortic aneurysm CT showed no change in a 3.2 cm infrarenal abdominal aortic aneurysm. Previously seen on prior imaging Follow-up with vascular surgery as outpatient Stable DVT Prophylaxis: Lovenox Code Status: full code Disposition: Waiting for placement Patient seen in collaboration with Dr. Han. Please see addendum. Admission and Anticipated Discharge Date Admission Date: August 07, 2021 Supervising Physician Co-Signing Physician Notes Attending Addendum: delayed entry date of service noted above care coordinated with SIS Cherry please refer to her notes for full details, I agree with her notes patient seen and examined, records reviewed by myself as well on exam, patient seen resting in bed, comfortable states back pain is improving no other symptoms VS noted and reviewed oriented x 3, not in distress, speaks in sentences with no effort nor accessory muscle use normal rate, regular rhythm, no murmurs clear breath sounds bilaterally non distended, soft, nontender no bipedal edema, erythema, warmth no neuro deficits ASSESSMENT AND PLAN T12 COMPRESSION FRACTURE better today continue PRN meds PT/OT other diagnoses and plan of care as per HARLEY Cherry's notes Ganesh Han MD Subjective Seen and examined in 378-2 for follow-up for t12 compression fracture, etc. Resting in bed after breakfast, not in distress. Did not sleep well last night. Feels bloated 2/2 constipation but regimen has been started. Denies any abdominal pain, nausea or vomiting. Reports back pain about the same as yesterday, worse with movement. No leg weakness/numbness. No fever chills, CP, SOB, dysuria or diarrhea. Review of Systems Review of Systems: At least ten systems reviewed and negative except as noted in the HPI. Physical Exam Physical Exam: Gen: WD/WN, NAD, sitting in bed comfortably, A&Ox3 HEENT: Normocephalic, atraumatic, conjunctivae moist, sclerae anicteric, mucous membranes moist Lung: Clear to Auscultation bilaterally, no wheezes/rales/rhonchi Heart: Regular rate, regular rhythm, no murmurs, rubs, or gallops Abdomen: Soft but mildly distended, non-tender, +BS x 4 Extremities: + TTP thoracic spine. No edema or deformities noted Skin: Warm, no rash Results & Data Results & Data ([facility]) Vital Signs (Past 12 Hours) Vital Signs Temp Pulse Resp BP Pulse Ox 08/12/21 15:39 36.9 C 86 18 125/77 96 08/12/21 07:23 36.9 C 97 H 18 130/85 92 Diagnostic Findings Abdomen/Pelvis CT 08/06/21 11:22 CT OF THE ABDOMEN AND PELVIS WITH CONTRAST CLINICAL HISTORY: midline LBP; h/o L3 compression frx infraren AAA COMPARISON STUDY: CT of the abdomen and pelvis June 30, 2021. TECHNIQUE: Following IV administration of 98 mL of Optiray, axial images of the abdomen and pelvis were obtained from the lung bases to the proximal femurs. Images were reviewed in the axial, sagittal, and coronal planes. IV contrast was administered without complication. Automated exposure control was utilized for the study. A dose lowering technique was utilized adhering to the principles of ALARA. CT DOSE: 381.06 mGy.cm FINDINGS: Lung bases are unremarkable. No pneumatosis, free air or portal venous gas is present. The liver, spleen, adrenal glands, kidneys and pancreas are unremarkable. There are gallstones within the gallbladder. There is no evidence for acute cholecystitis. Diverticulum of the second portion the duodenum is present. There is no hydronephrosis. 3.2 cm infrarenal abdominal aortic aneurysm is unchanged. Extensive plaque is present. There is no evidence for rupture. Extensive colonic diverticulosis is noted without evidence for acute diverticulitis. There is no evidence for a bowel obstruction. Appendix is not visualized. There is no ascites or lymphadenopathy. Major vasculature is patent. Moderate L3 compression fracture is again noted. There has been increase in vertebral body height loss since CT of June 30, 2021. A mild T12 compression fracture is new since prior CT. There is no significant retropulsion. No extension into posterior elements is noted. IMPRESSION: 1. Acute to subacute mild T12 compression fracture. This is new since CT of June 30, 2021. 2. Redemonstration of an L3 compression fracture with interval increase in vertebral body height loss since prior exam. 3. No change in a 3.2 cm infrarenal abdominal aortic aneurysm. No rupture. 4. Cholelithiasis. ACT 112: Negative or not required by law. Electronically signed by: Jas Franco M.D. 08/06/2021 1:05 PM Carotid Doppler Study 08/11/21 09:27 ULTRASOUND OF THE CAROTID ARTERIES CLINICAL HISTORY: neck pain, ff up left carotid artery dissection COMPARISON: Comparison is made to CTA head and neck 05/27/2021 TECHNIQUE: Real-time, grayscale, and color Doppler sonography of the left carotid arteries is performed. Images are reviewed in the transverse and longitudinal planes. FINDINGS: The carotid arteries are patent bilaterally and demonstrate antegrade flow. There is no atherosclerotic plaque on the right and no atherosclerotic plaque on the left. Normal doppler arterial waveforms are seen throughout. Velocity measurements are listed below. Common carotid peak systolic velocity (cm/sec): RIGHT: LEFT: 73 ICA proximal peak systolic velocity (cm/sec): RIGHT: LEFT: 101 ICA mid peak systolic velocity (cm/sec): RIGHT: LEFT: 86 ICA distal peak systolic velocity (cm/sec): RIGHT: LEFT: 98 ICA/CC peak systolic ratio: RIGHT: LEFT: 1.4 Antegrade flow was shown in the left vertebral artery. The left external carotid artery is patent. IMPRESSION: 1. There is no sonographic evidence of hemodynamically significant stenosis in the left carotid arterial system. The previous seen noted dissection flap was not seen on today's exam. 2. Antegrade flow is shown in the left vertebral artery. Society of Radiologists in Ultrasound consensus guidelines: Normal: ICA PSV is <125 cm/sec and no plaque or intimal thickening is visible sonographically additional criteria include ICA/CCA PSV ratio <2.0 and ICA EDV <40 cm/sec <50% ICA stenosis: ICA PSV is <125 cm/sec and plaque or intimal thickening is visible sonographically additional criteria include ICA/CCA PSV ratio <2.0 and ICA EDV <40 cm/sec 50-69% ICA stenosis: ICA PSV is 125-230 cm/sec and plaque is visible sonographically additional criteria include ICA/CCA PSV ratio of 2.0-4.0 and ICA EDV of 40-100 cm/sec ?70% ICA stenosis but less than near occlusion: ICA PSV is >230 cm/sec and visible plaque and luminal narrowing are seen at kowalski-scale and color Doppler ultrasound (the higher the Doppler parameters lie above the threshold of 230 cm/sec, the greater the likelihood of severe disease) additional criteria include ICA/CCA PSV ratio >4 and ICA EDV >100 cm/sec ACT 112: Negative or not required by law. Electronically signed by: Nikita Mcgill M.D. 08/11/2021 12:18 PM (1) COPD (chronic obstructive pulmonary disease) COPD type: unspecified COPD Qualified Code(s): J44.9 - Chronic obstructive pulmonary disease, unspecified (2) GERD (gastroesophageal reflux disease) Esophagitis presence: esophagitis presence not specified Qualified Code(s): K21.9 - Gastro-esophageal reflux disease without esophagitis (3) Hypertension Hypertension type: unspecified Qualified Code(s): I10 - Essential (primary) hypertension
[2021-08-12] MEDS ORDERED: POLYETHYLENE (MIRALAX) 17 GM PACK PO PRN (16:15)
[2021-08-12] MEDS ORDERED: MoRPHine SULFATE 4 MG/ML 1 ML CARP\\VIAL IV STA (20:12)
[2021-08-12] MEDS: rOPINIRole HCL 0.25 MG TABLET PO SCH (20:17)
[2021-08-13] MEDS: oxyCODONE HCL IR 5 MG TAB (IMMEDIATE RELEASE) PO PRN ×4 (00:57→20:43)
[2021-08-13] MEDS: METOPROLOL SUCC 50MG EXT REL TAB PO SCH (09:35)
[2021-08-13] MEDS: PANTOprazole 40 MG TAB PO SCH (09:35)
[2021-08-13] MEDS: LOSARTAN POTASSIUM 25 MG TAB PO SCH (09:35)
[2021-08-13] MEDS: ATORVASTATIN 40 MG TAB PO SCH (09:36)
[2021-08-13] MEDS: ROFLUMILAST 500 MCG TAB PO SCH (09:36)
[2021-08-13] MEDS: DOCUSATE SODIUM/SENNA 50/8.6MG TAB PO SCH (09:36)
[2021-08-13] MEDS: CLOPIDOGREL BISULFATE 75 MG TAB PO SCH (09:36)
[2021-08-13] MEDS: ASPIRIN 81 MG ECTAB PO SCH (09:36)
[2021-08-13] MEDS: FLUTICASONE/VILANTEROL 100/25MCG 14 PUFFS/INHALER INH SCH (09:37)
[2021-08-13] MEDS: UMECLIDINIUM BROMIDE 62.5MCG/BLISTER 7 PUFFS/INHALER INH SCH (09:37)
[2021-08-13] MEDS: LIDOCAINE 5% 1 PATCH TD SCH (09:37)
[2021-08-13] MEDS: CALCITONIN SALMON NA 200 IU/AC 3.7 ML BTL SCH (09:38)
[2021-08-13] MEDS: ENOXAPARIN INJ 40 MG/0.4 ML SYR SQ SCH (09:38)
[2021-08-13] MEDS: diazePAM 2 MG TABLET PO SCH ×2 (09:42→20:36)
[2021-08-13] MEDS: DOCUSATE SODIUM 100 MG CAP PO SCH (09:42)
[2021-08-13] MEDS: MAGNESIUM OXIDE 400 MG TAB PO SCH (10:56)
--- NOTE | 2021-08-13 16:07 | Hospitalist Progress Note ---
Date of Service August 13, 2021 Assessment & Plan (1) T12 compression fracture: (2) Intractable back pain: (3) COPD (chronic obstructive pulmonary disease): (4) Aneurysm of infrarenal abdominal aorta: (5) Obesity hypoventilation syndrome: (6) Chronic respiratory failure with hypoxia and hypercapnia: (7) Hypertension: (8) GERD (gastroesophageal reflux disease): (9) Fibromyalgia: (10) Dyslipidemia: (11) Osteoporosis: Plan: per HARLEY Cherry's notes with addendum: This is a 75 y/o female with a PMH of chronic hypoxemic and hypercapnic respiratory failure on 2 L of O2 at baseline, COPD, HTN, HLD, CHF, known infrarenal abdominal aortic aneurysm, GERD, fibromyalgia, essential tremor, and hx of left carotid artery dissection who presents ED secondary to worsening of low back pain x 4 days and was found to have acute to subacute mild T12 compression fracture. Low Back Pain Ambulatory dysfunction Acute to subacute mild T12 compression fracture CT abd/pelvis showed acute to subacute mild T12 compression fracture. This is new since CT of June 30, 2021. Redemonstration of an L3 compression fracture with interval increase in vertebral body height loss since prior exam Continue Pain controlled with oxycodone and lidocaine. Prednisone 20mg daily added on 08/10 Case discussed with ortho Dr. Silva that recommended conservative management. No plan for any surgical intervention K pad order by Ortho Fall precaution 08/13 pain well controlled continue present regimen continue PT/OT Vitamin D deficiency Level 23 Vitamin D 50,000 units every week x4 weeks, then repeat vitamin D levels COPD Chronic hypoxic respiratory failure with hypercapnia on 3 L of O2 Stable; no acute exacerbation Continue Symbicort and Umeclidinium as well as Daliresp BiPAP at bedtime Follows [facility] 08/13 faint wheeze but no changes with breathing no other symptoms Chronic diastolic CHF Continue aspirin, statin, losartan and metoprolol No cardiac symptoms -- no signs of overt volume overload History of left carotid artery dissection Found incidentally during recent admission in May Was seen and evaluated by vascular surgery, no acute intervention On Plavix and encouraged to take for at least 30 day Follow up with Vascular surgery -- no neck pain Infrarenal abdominal aortic aneurysm CT showed no change in a 3.2 cm infrarenal abdominal aortic aneurysm. Previously seen on prior imaging Follow-up with vascular surgery as outpatient Stable DVT Prophylaxis: Yocastanox Code Status: full code Disposition: Waiting for placement Admission and Anticipated Discharge Date Admission Date: August 07, 2021 Subjective ff up for back pain, etc seen resting in bed, comfortable in good spirits states back pain has been well controlled now no weakness/numbness (+) BMs no other symptoms Review of Systems Review of Systems: all noted and negative except for above Physical Exam Physical Exam: General- oriented x 3, not in distress, speaks in sentences with no effort or accessory muscle use Eyes- anicteric Neck- no JVD Lungs- faint wheeze BL no rales Heart- normal rate, regular rhythm; no murmurs Abdomen- normal bowel sounds, nondistended, soft, nontender Extremities- no pretibial edema, no calf tenderness Neuro- alert, oriented x 3; no gross focal neurologic deficits Skin- warm & dry Results & Data Results & Data ([facility]) Vital Signs (Past 12 Hours) Vital Signs Temp Pulse Resp BP Pulse Ox 08/13/21 15:19 37.0 C 74 16 115/58 L 94 08/13/21 07:14 36.6 C 86 16 125/80 96 all noted and reviewed including below (1) COPD (chronic obstructive pulmonary disease) COPD type: unspecified COPD Qualified Code(s): J44.9 - Chronic obstructive pulmonary disease, unspecified (2) Hypertension Hypertension type: unspecified Qualified Code(s): I10 - Essential (primary) hypertension (3) GERD (gastroesophageal reflux disease) Esophagitis presence: esophagitis presence not specified Qualified Code(s): K21.9 - Gastro-esophageal reflux disease without esophagitis
[2021-08-13] MEDS: rOPINIRole HCL 0.25 MG TABLET PO SCH (20:36)
[2021-08-14] MEDS: oxyCODONE HCL IR 5 MG TAB (IMMEDIATE RELEASE) PO PRN ×3 (04:21→17:33)
[2021-08-14] MEDS: LIDOCAINE 5% 1 PATCH TD SCH (08:42)
[2021-08-14] MEDS: ASPIRIN 81 MG ECTAB PO SCH (09:17)
[2021-08-14] MEDS: ROFLUMILAST 500 MCG TAB PO SCH (09:17)
[2021-08-14] MEDS: MAGNESIUM OXIDE 400 MG TAB PO SCH (09:19)
[2021-08-14] MEDS: PANTOprazole 40 MG TAB PO SCH (09:19)
[2021-08-14] MEDS: DOCUSATE SODIUM/SENNA 50/8.6MG TAB PO SCH (09:19)
[2021-08-14] MEDS: CLOPIDOGREL BISULFATE 75 MG TAB PO SCH (09:19)
[2021-08-14] MEDS: ATORVASTATIN 40 MG TAB PO SCH (09:19)
[2021-08-14] MEDS: FLUTICASONE/VILANTEROL 100/25MCG 14 PUFFS/INHALER INH SCH (09:20)
[2021-08-14] MEDS: UMECLIDINIUM BROMIDE 62.5MCG/BLISTER 7 PUFFS/INHALER INH SCH (09:20)
[2021-08-14] MEDS: CALCITONIN SALMON NA 200 IU/AC 3.7 ML BTL SCH (09:20)
[2021-08-14] MEDS: ENOXAPARIN INJ 40 MG/0.4 ML SYR SQ SCH (09:20)
[2021-08-14] MEDS: LOSARTAN POTASSIUM 25 MG TAB PO SCH (09:22)
[2021-08-14] MEDS: METOPROLOL SUCC 50MG EXT REL TAB PO SCH (09:22)
[2021-08-14] MEDS: DOCUSATE SODIUM 100 MG CAP PO SCH (09:41)
[2021-08-14] MEDS: diazePAM 2 MG TABLET PO SCH ×2 (09:41→21:47)
--- NOTE | 2021-08-14 18:50 | Hospitalist Progress Note ---
Date of Service August 14, 2021 Assessment & Plan (1) T12 compression fracture: (2) Intractable back pain: (3) COPD (chronic obstructive pulmonary disease): (4) Aneurysm of infrarenal abdominal aorta: (5) Obesity hypoventilation syndrome: (6) Chronic respiratory failure with hypoxia and hypercapnia: (7) Hypertension: (8) GERD (gastroesophageal reflux disease): (9) Fibromyalgia: (10) Dyslipidemia: (11) Osteoporosis: Plan: per HARLEY Cherry's notes with addendum: This is a 75 y/o female with a PMH of chronic hypoxemic and hypercapnic respiratory failure on 2 L of O2 at baseline, COPD, HTN, HLD, CHF, known infrarenal abdominal aortic aneurysm, GERD, fibromyalgia, essential tremor, and hx of left carotid artery dissection who presents ED secondary to worsening of low back pain x 4 days and was found to have acute to subacute mild T12 compression fracture. Low Back Pain Ambulatory dysfunction Acute to subacute mild T12 compression fracture CT abd/pelvis showed acute to subacute mild T12 compression fracture. This is new since CT of June 30, 2021. Redemonstration of an L3 compression fracture with interval increase in vertebral body height loss since prior exam Continue Pain controlled with oxycodone and lidocaine. Prednisone 20mg daily added on 08/10 Case discussed with ortho Dr. Silva that recommended conservative management. No plan for any surgical intervention K pad order by Ortho Fall precaution 08/14 pain increasing Tramadol did not help in the past Add [place] every 6 hours continue PT/OT Vitamin D deficiency Level 23 Vitamin D 50,000 units every week x4 weeks, then repeat vitamin D levels COPD Chronic hypoxic respiratory failure with hypercapnia on 3 L of O2 Stable; no acute exacerbation Continue Symbicort and Umeclidinium as well as Daliresp BiPAP at bedtime Follows [facility] 08/14 No wheezing Respiratory status stable Chronic diastolic CHF Continue aspirin, statin, losartan and metoprolol No cardiac symptoms -- no signs of overt volume overload History of left carotid artery dissection Found incidentally during recent admission in May Was seen and evaluated by vascular surgery, no acute intervention On Plavix and encouraged to take for at least 30 day Follow up with Vascular surgery -- no neck pain Infrarenal abdominal aortic aneurysm CT showed no change in a 3.2 cm infrarenal abdominal aortic aneurysm. Previously seen on prior imaging Follow-up with vascular surgery as outpatient Stable DVT Prophylaxis: Lovenox Code Status: full code Disposition: Waiting for placement Admission and Anticipated Discharge Date Admission Date: August 07, 2021 Subjective Follow-up for T12 compression fracture, etc. Seen sitting up in bed States she has increased back pain today No leg weakness or numbness no chest pain, dyspnea, palpitations, dizziness Positive BMs No other symptoms Review of Systems Review of Systems: all noted and negative except for above Results & Data Results & Data ([facility]) Vital Signs (Past 12 Hours) Vital Signs Temp Pulse Resp BP Pulse Ox 08/14/21 16:15 36.7 C 77 16 131/81 97 08/14/21 09:21 89 154/78 H 08/14/21 07:23 37.0 C 86 16 95/43 L 97 all noted and reviewed including below (1) COPD (chronic obstructive pulmonary disease) COPD type: unspecified COPD Qualified Code(s): J44.9 - Chronic obstructive pulmonary disease, unspecified (2) Hypertension Hypertension type: unspecified Qualified Code(s): I10 - Essential (primary) hypertension (3) GERD (gastroesophageal reflux disease) Esophagitis presence: esophagitis presence not specified Qualified Code(s): K21.9 - Gastro-esophageal reflux disease without esophagitis
[2021-08-14] MEDS: rOPINIRole HCL 0.25 MG TABLET PO SCH (21:47)
[2021-08-14] MEDS: HYDROCODONE/ACETAMOPHEN 5/325MG TAB PO PRN (21:48)
[2021-08-15] MEDS: CALCITONIN SALMON NA 200 IU/AC 3.7 ML BTL SCH (07:55)
[2021-08-15] MEDS: ROFLUMILAST 500 MCG TAB PO SCH (07:57)
[2021-08-15] MEDS: diazePAM 2 MG TABLET PO SCH ×2 (07:58→21:28)
[2021-08-15] MEDS: oxyCODONE HCL IR 5 MG TAB (IMMEDIATE RELEASE) PO PRN (07:59)
[2021-08-15] MEDS: LIDOCAINE 5% 1 PATCH TD SCH (07:59)
[2021-08-15] MEDS: LOSARTAN POTASSIUM 25 MG TAB PO SCH ×2 (07:59→09:50)
[2021-08-15] MEDS: PANTOprazole 40 MG TAB PO SCH (07:59)
[2021-08-15] MEDS: ASPIRIN 81 MG ECTAB PO SCH (07:59)
[2021-08-15] MEDS: ATORVASTATIN 40 MG TAB PO SCH (07:59)
[2021-08-15] MEDS: METOPROLOL SUCC 50MG EXT REL TAB PO SCH (07:59)
[2021-08-15] MEDS: DOCUSATE SODIUM/SENNA 50/8.6MG TAB PO SCH ×2 (07:59→21:29)
[2021-08-15] MEDS: UMECLIDINIUM BROMIDE 62.5MCG/BLISTER 7 PUFFS/INHALER INH SCH (08:00)
[2021-08-15] MEDS: FLUTICASONE/VILANTEROL 100/25MCG 14 PUFFS/INHALER INH SCH (08:00)
[2021-08-15] MEDS: ENOXAPARIN INJ 40 MG/0.4 ML SYR SQ SCH (09:50)
[2021-08-15] MEDS: DOCUSATE SODIUM 100 MG CAP PO SCH (09:50)
[2021-08-15] MEDS: CLOPIDOGREL BISULFATE 75 MG TAB PO SCH (09:50)
[2021-08-15] MEDS: MAGNESIUM OXIDE 400 MG TAB PO SCH (09:51)
[2021-08-15] MEDS: HYDROCODONE/ACETAMOPHEN 5/325MG TAB PO PRN ×2 (12:17→18:15)
--- NOTE | 2021-08-15 12:40 | Hospitalist Progress Note ---
Date of Service August 15, 2021 Assessment & Plan (1) T12 compression fracture: (2) Intractable back pain: (3) COPD (chronic obstructive pulmonary disease): (4) Aneurysm of infrarenal abdominal aorta: (5) Obesity hypoventilation syndrome: (6) Chronic respiratory failure with hypoxia and hypercapnia: (7) Hypertension: (8) GERD (gastroesophageal reflux disease): (9) Fibromyalgia: (10) Dyslipidemia: (11) Osteoporosis: Plan: This is a 75 y/o female with a PMH of chronic hypoxemic and hypercapnic respiratory failure on 2 L of O2 at baseline, COPD, HTN, HLD, CHF, known infrarenal abdominal aortic aneurysm, GERD, fibromyalgia, essential tremor, and hx of left carotid artery dissection who presents ED secondary to worsening of low back pain x 4 days and was found to have acute to subacute mild T12 compression fracture. Low Back Pain Ambulatory dysfunction Acute to subacute mild T12 compression fracture CT abd/pelvis showed acute to subacute mild T12 compression fracture. This is new since CT of June 30, 2021. Re demonstration of an L3 compression fracture with interval increase in vertebral body height loss since prior exam Continue Pain controlled with oxycodone and lidocaine. Prednisone trialed but discontinued Case discussed with ortho Dr. Silva that recommended conservative management. No plan for any surgical intervention given multiple co morbidities and poor surgical candidate K pad order by Ortho, Fall precaution Lidoderm patch, Valium BID Tramadol tried w/o relief; D/C and trial [place] q6h PT/OT change Senna S BID HTN bp stable continue losartan and metoprolol Vitamin D deficiency Level 23 Vitamin D 50,000 units every week x4 weeks, then repeat vitamin D levels COPD Chronic hypoxic respiratory failure with hypercapnia on 3 L of O2 Stable; no acute exacerbation Continue Symbicort and Umeclidinium as well as Daliresp BiPAP at bedtime Follows [facility] Chronic diastolic CHF euvolemic Continue aspirin, statin, losartan and metoprolol No cardiac symptoms History of left carotid artery dissection Found incidentally during recent admission in May Was seen and evaluated by vascular surgery, no acute intervention On Plavix and encouraged to take for at least 30 day, starting 05/31 Follow up with Vascular surgery Infrarenal abdominal aortic aneurysm CT showed no change in a 3.2 cm infrarenal abdominal aortic aneurysm. Previously seen on prior imaging Re-eval via US in 1 year, 05/2022 Follow-up with vascular surgery as outpatient Stable DVT Prophylaxis: Lovenox Code Status: full code Disposition: Waiting for placement Admission and Anticipated Discharge Date Admission Date: August 07, 2021 Supervising Physician Co-Signing Physician Notes Attending Addendum: delayed entry date of service noted above care coordinated with SIS Mayes please refer to her notes for full details, I agree with her notes patient seen and examined, records reviewed by myself as well on exam, patient seen resting in bed, reports increased back pain no weakness/numbness of LE (+) BM no other symptoms VS noted and reviewed oriented x 3 , not in distress, speaks in sentences with no effort nor accessory muscle use normal rate, regular rhythm, no murmurs clear breath sounds bilaterally non distended, soft, nontender no bipedal edema, erythema, warmth no neuro deficits ASSESSMENT AND PLAN T12 COMPRESSION FRACTURE add [place] for pain control monitor COPD not in exacerbation other diagnoses and plan of care as per SIS Mayes's notes Ganesh Han MD Subjective Patient was seen and examined in room 378-2. She is complaining of mid to low back pain, 10 out of 10, no radiation, denies bowel or bladder incontinence. She admits to small BM. She denies f/c/s, chest pain, sob, n/v/d. Review of Systems Review of Systems: All systems reviewed & are unremarkable except as noted in HPI & below Physical Exam Physical Exam: Gen: WD/WN, Chronically ill appearing F, +pain, A&O x3 HEENT: Normocephalic, atraumatic, conjunctivae moist, sclerae anicteric, mucous membranes moist. Lung: Clear to Auscultation bilaterally, no wheezes/rales/rhonchi Heart: Regular rate, regular rhythm, no murmurs, rubs, or gallops Abdomen: Soft, NT, ND +BS x 4 Extremities: No edema Skin: Warm, no rash, negative turgor. Results & Data Results & Data ([facility]) Vital Signs (Past 12 Hours) Vital Signs Temp Pulse Resp BP Pulse Ox 08/15/21 07:28 36.8 C 86 14 128/73 94 Medications Administered Current Inpatient Medications Hydrocodone Bitart/Acetaminophen (Hydrocodone/Acetamophen 5/325mg Tab) 1 tab PO Q6H PRN PRN Reason: Pain Stop: 08/28/21 17:57 Last Admin: 08/15/21 12:17 Dose: 1 tab Documented by: Albuterol (Albut/Ipratrop 3mg/0.5mg Neb 3 Ml Vial) 3 ml INH Q4H PRN PRN Reason: COUGH OR WHEEZE Stop: 09/05/21 18:13 Last Admin: 08/13/21 19:44 Dose: 3 ml Documented by: Aspirin (Aspirin 81 Mg Ectab) 81 mg PO QAM [facility] Stop: 09/06/21 08:59 Last Admin: 08/15/21 07:59 Dose: 81 mg Documented by: Atorvastatin Calcium ([facility]orvastatin 40 Mg Tab) [facility] Stop: 09/06/21 08:59 Last Admin: 08/15/21 07:59 Dose: 40 mg Documented by: Calcitonin [place] (Calcitonin [place] Na 200 Iu/Ac 3.7 Ml Btl) 1 sprays NA DAILY [facility] Stop: 09/07/21 10:59 Last Admin: 08/15/21 07:55 Dose: 1 sprays Documented by: Clopidogrel Bisulfate (Clopidogrel Bisulfate 75 Mg Tab) 75 mg PO QAM [facility] Stop: 09/06/21 08:59 Last Admin: 08/15/21 09:50 Dose: 75 mg Documented by: Diazepam (Diazepam 2 Mg Tablet) 1 mg PO BID [facility] Stop: 09/05/21 20:59 Last Admin: 08/15/21 07:58 Dose: 1 mg Documented by: Docusate Sodium (Docusate Sodium 100 Mg Cap) [facility] Stop: 09/06/21 08:59 Last Admin: 08/15/21 09:50 Dose: 100 mg Documented by: Enoxaparin Sodium (Enoxaparin Inj 40 Mg/0.4 Ml Syr) 40 mg SQ Q24H [facility] Stop: 09/06/21 08:59 Last Admin: 08/15/21 09:50 Dose: 40 mg Documented by: Fluticasone/Vilanterol (Fluticasone/Vilanterol 100/25mcg 14 Puffs/Inhaler) 1 puffs INH DAILY [facility] Stop: 09/06/21 08:59 Last Admin: 08/15/21 08:00 Dose: Not Given Documented by: Lidocaine (Lidocaine 5% 1 Patch) 1 patch TD [facility] Stop: 09/05/21 18:13 Last Admin: 08/15/21 07:59 Dose: 1 patch Documented by: Losartan Potassium (Losartan Potassium 25 Mg Tab) 25 mg PO [facility] Stop: 09/06/21 08:59 Last Admin: 08/15/21 09:50 Dose: 25 mg Documented by: Magnesium Hydroxide (Magnesium Hydroxide Susp 30 Ml Udc) 30 ml PO Q6H PRN PRN Reason: Constipation Stop: 09/09/21 17:16 Last Admin: 08/12/21 10:05 Dose: 30 ml Documented by: Magnesium Oxide (Magnesium Oxide 400 Mg Tab) 400 mg PO [facility] Stop: 09/06/21 08:59 Last Admin: 08/15/21 09:51 Dose: 400 mg Documented by: Metoprolol Succinate (Metoprolol Succ 50mg Ext Rel Tab) 50 mg PO [facility] Stop: 09/06/21 08:59 Last Admin: 08/15/21 07:59 Dose: 50 mg Documented by: Miscellaneous (Remove Lidoderm Patch) 1 ea N/A DAILY@2100 [facility] Stop: 09/05/21 20:59 Last Admin: 08/14/21 21:47 Dose: 1 ea Documented by: Oxycodone HCl (Oxycodone Hcl Ir 5 Mg Tab (Immediate Release)) 5 mg PO Q6H PRN PRN Reason: Pain Stop: 08/20/21 18:13 Last Admin: 08/15/21 07:59 Dose: 5 mg Documented by: Pantoprazole Sodium (Pantoprazole 40 Mg Tab) 40 mg PO [facility] Stop: 09/06/21 08:59 Last Admin: 08/15/21 07:59 Dose: 40 mg Documented by: Polyethylene Glycol (Polyethylene (Miralax) 17 Gm Pack) 17 gm PO DAILY PRN PRN Reason: Constipation Stop: 09/11/21 16:14 Roflumilast (Roflumilast 500 Mcg Tab) 250 mcg PO [facility] Stop: 09/06/21 08:59 Last Admin: 08/15/21 07:57 Dose: 250 mcg Documented by: Ropinirole HCl (Ropinirole Hcl 0.25 Mg Tablet) 0.25 mg PO [facility] Stop: 09/05/21 20:59 Last Admin: 08/14/21 21:47 Dose: 0.25 mg Documented by: Senna/Docusate Sodium (Docusate Sodium/Senna 50/8.6mg Tab) 1 tab PO QAM [facility] Stop: 09/09/21 17:29 Last Admin: 08/15/21 07:59 Dose: 1 tab Documented by: Umeclidinium [place] (Umeclidinium [place] 62.5mcg/Blister 7 Puffs/Inhaler) 1 puffs INH DAILY [facility] Stop: 09/06/21 08:59 Last Admin: 08/15/21 08:00 Dose: Not Given Documented by: (1) COPD (chronic obstructive pulmonary disease) COPD type: unspecified COPD Qualified Code(s): J44.9 - Chronic obstructive pulmonary disease, unspecified (2) GERD (gastroesophageal reflux disease) Esophagitis presence: esophagitis presence not specified Qualified Code(s): K21.9 - Gastro-esophageal reflux disease without esophagitis (3) Hypertension Hypertension type: unspecified Qualified Code(s): I10 - Essential (primary) hypertension
[2021-08-15] MEDS: rOPINIRole HCL 0.25 MG TABLET PO SCH (21:29)
[2021-08-16] MEDS: HYDROCODONE/ACETAMOPHEN 5/325MG TAB PO PRN ×5 (00:04→21:39)
[2021-08-16] MEDS: UMECLIDINIUM BROMIDE 62.5MCG/BLISTER 7 PUFFS/INHALER INH SCH (09:39)
[2021-08-16] MEDS: FLUTICASONE/VILANTEROL 100/25MCG 14 PUFFS/INHALER INH SCH (09:40)
[2021-08-16] MEDS: diazePAM 2 MG TABLET PO SCH ×2 (09:40→21:32)
[2021-08-16] MEDS: ROFLUMILAST 500 MCG TAB PO SCH (09:41)
[2021-08-16] MEDS: PANTOprazole 40 MG TAB PO SCH (09:42)
[2021-08-16] MEDS: ENOXAPARIN INJ 40 MG/0.4 ML SYR SQ SCH (09:42)
[2021-08-16] MEDS: METOPROLOL SUCC 50MG EXT REL TAB PO SCH (09:42)
[2021-08-16] MEDS: DOCUSATE SODIUM/SENNA 50/8.6MG TAB PO SCH ×2 (09:42→21:33)
[2021-08-16] MEDS: LOSARTAN POTASSIUM 25 MG TAB PO SCH (09:42)
[2021-08-16] MEDS: CALCITONIN SALMON NA 200 IU/AC 3.7 ML BTL SCH (09:43)
[2021-08-16] MEDS: ATORVASTATIN 40 MG TAB PO SCH (09:43)
[2021-08-16] MEDS: MAGNESIUM OXIDE 400 MG TAB PO SCH (09:43)
[2021-08-16] MEDS: LIDOCAINE 5% 1 PATCH TD SCH (09:43)
[2021-08-16] MEDS: CLOPIDOGREL BISULFATE 75 MG TAB PO SCH (09:43)
[2021-08-16] MEDS: ASPIRIN 81 MG ECTAB PO SCH (09:43)
--- NOTE | 2021-08-16 11:47 | Hospitalist Progress Note ---
Date of Service August 16, 2021 Assessment & Plan (1) T12 compression fracture: (2) Intractable back pain: (3) COPD (chronic obstructive pulmonary disease): (4) Aneurysm of infrarenal abdominal aorta: (5) Obesity hypoventilation syndrome: (6) Chronic respiratory failure with hypoxia and hypercapnia: (7) Hypertension: (8) GERD (gastroesophageal reflux disease): (9) Fibromyalgia: (10) Dyslipidemia: (11) Osteoporosis: Plan: This is a 75 y/o female with a PMH of chronic hypoxemic and hypercapnic respiratory failure on 2 L of O2 at baseline, COPD, HTN, HLD, CHF, known infrarenal abdominal aortic aneurysm, GERD, fibromyalgia, essential tremor, and hx of left carotid artery dissection who presents ED secondary to worsening of low back pain x 4 days and was found to have acute to subacute mild T12 compression fracture. Low Back Pain Ambulatory dysfunction Acute to subacute mild T12 compression fracture CT abd/pelvis showed acute to subacute mild T12 compression fracture. This is new since CT of June 30, 2021. Re demonstration of an L3 compression fracture with interval increase in vertebral body height loss since prior exam Continue Pain controlled with oxycodone and lidocaine. Prednisone trialed but discontinued Case discussed with ortho Dr. Silva that recommended conservative management. No plan for any surgical intervention given multiple co morbidities and poor surgical candidate K pad order by Ortho, Fall precaution Lidoderm patch, Valium BID Tramadol tried w/o relief; D/C and trial Orlando q6h Orlando helping, will change to q4h prn, getting approx twice daily PT/OT Senna S BID HTN bp stable continue losartan and metoprolol Vitamin D deficiency Level 23 Vitamin D 50,000 units every week x4 weeks, then repeat vitamin D levels COPD Chronic hypoxic respiratory failure with hypercapnia on 3 L of O2 Stable; no acute exacerbation Continue Symbicort and Umeclidinium as well as Daliresp BiPAP at bedtime Follows [facility] Chronic diastolic CHF euvolemic Continue aspirin, statin, losartan and metoprolol No cardiac symptoms History of left carotid artery dissection Found incidentally during recent admission in May Was seen and evaluated by vascular surgery, no acute intervention On Plavix and encouraged to take for at least 30 day, starting 05/31 Follow up with Vascular surgery Infrarenal abdominal aortic aneurysm CT showed no change in a 3.2 cm infrarenal abdominal aortic aneurysm. Previously seen on prior imaging Re-eval via US in 1 year, 05/2022 Follow-up with vascular surgery as outpatient Stable DVT Prophylaxis: Lovenox Code Status: full code Disposition: Stable, ready for discharge, Waiting for placement Admission and Anticipated Discharge Date Admission Date: August 07, 2021 Supervising Physician Co-Signing Physician Notes Attending Addendum: delayed entry date of service noted above care coordinated with SIS Mayes please refer to her notes for full details, I agree with her notes patient seen and examined, records reviewed by myself as well on exam, patient seen resting in bed, sitting up not in distress comfortable states she feels ok overall back pain relieved by Orlando no other symptoms VS noted and reviewed oriented x2 , not in distress, speaks in sentences with no effort nor accessory muscle use normal rate, regular rhythm, no murmurs clear BS bilaterally non distended, soft, nontender no bipedal edema, erythema, warmth no neuro deficits ASSESSMENT AND PLAN T12 COMPRESSION FRACTURE IMPROVING continue Orlando, Oxy PRN COPD stable other diagnoses and plan of care as per SIS Han MD Subjective Patient was seen and examined in room 378-1. Follow up thoracic compression fracture. She slept much better last evening. She feels Orlando is helping. She admits to small yesterday. She denies f/c/s, chest pain, sob, wheezing, URI sx, n/v/d. She does not like her diet and wishes to have bread. She feels her breathing is at baseline, but doesn't like inhalers here, "to powdery." Review of Systems Review of Systems: All systems reviewed & are unremarkable except as noted in HPI & below Physical Exam Physical Exam: Gen: WD/WN, Chronically ill appearing F, +pain, A&O x3 HEENT: Normocephalic, atraumatic, conjunctivae moist, sclerae anicteric, mucous membranes moist. Lung: Clear to Auscultation bilaterally, no wheezes/rales/rhonchi Heart: Regular rate, regular rhythm, no murmurs, rubs, or gallops Abdomen: Soft, NT, ND +BS x 4 Extremities: No edema Skin: Warm, no rash, negative turgor. Results & Data Results & Data ([facility]) Vital Signs (Past 12 Hours) Vital Signs Temp Pulse Resp BP Pulse Ox 08/16/21 07:10 37.3 C 73 16 107/69 96 Medications Administered Current Inpatient Medications Hydrocodone Bitart/Acetaminophen (Hydrocodone/Acetamophen 5/325mg Tab) 1 tab PO Q6H PRN PRN Reason: Pain Stop: 08/28/21 17:57 Last Admin: 08/16/21 06:29 Dose: 1 tab Documented by: Albuterol (Albut/Ipratrop 3mg/0.5mg Neb 3 Ml Vial) 3 ml INH Q4H PRN PRN Reason: COUGH OR WHEEZE Stop: 09/05/21 18:13 Last Admin: 08/13/21 19:44 Dose: 3 ml Documented by: Aspirin (Aspirin 81 Mg Ectab) 81 mg PO QAM [facility] Stop: 09/06/21 08:59 Last Admin: 08/16/21 09:43 Dose: 81 mg Documented by: Atorvastatin Calcium (Atorvastatin 40 Mg Tab) 40 mg PO QAM [facility] Stop: 09/06/21 08:59 Last Admin: 08/16/21 09:43 Dose: 40 mg Documented by: Calcitonin [place] (Calcitonin [place] Na 200 Iu/Ac 3.7 Ml Btl) 1 sprays NA DAILY [facility] Stop: 09/07/21 10:59 Last Admin: 08/16/21 09:43 Dose: 1 sprays Documented by: Clopidogrel Bisulfate (Clopidogrel Bisulfate 75 Mg Tab) 75 mg PO QAM [facility] Stop: 09/06/21 08:59 Last Admin: 08/16/21 09:43 Dose: 75 mg Documented by: Diazepam (Diazepam 2 Mg Tablet) 1 mg PO BID [facility] Stop: 09/05/21 20:59 Last Admin: 08/16/21 09:40 Dose: 1 mg Documented by: Enoxaparin Sodium (Enoxaparin Inj 40 Mg/0.4 Ml Syr) 40 mg SQ Q24H [facility] Stop: 09/06/21 08:59 Last Admin: 08/16/21 09:42 Dose: 40 mg Documented by: Fluticasone/Vilanterol (Fluticasone/Vilanterol 100/25mcg 14 Puffs/Inhaler) 1 puffs INH DAILY [facility] Stop: 09/06/21 08:59 Last Admin: 08/16/21 09:40 Dose: 1 puffs Documented by: Lidocaine (Lidocaine 5% 1 Patch) 1 patch TD [facility] Stop: 09/05/21 18:13 Last Admin: 08/16/21 09:43 Dose: 1 patch Documented by: Losartan Potassium (Losartan Potassium 25 Mg Tab) 25 mg PO QAM [facility] Stop: 09/06/21 08:59 Last Admin: 08/16/21 09:42 Dose: 25 mg Documented by: Magnesium Hydroxide (Magnesium Hydroxide Susp 30 Ml Udc) 30 ml PO Q6H PRN PRN Reason: Constipation Stop: 09/09/21 17:16 Last Admin: 08/12/21 10:05 Dose: 30 ml Documented by: Magnesium Oxide (Magnesium Oxide 400 Mg Tab) 400 mg PO [facility] Stop: 09/06/21 08:59 Last Admin: 08/16/21 09:43 Dose: 400 mg Documented by: Metoprolol Succinate (Metoprolol Succ 50mg Ext Rel Tab) 50 mg PO [facility] Stop: 09/06/21 08:59 Last Admin: 08/16/21 09:42 Dose: 50 mg Documented by: Miscellaneous (Remove Lidoderm Patch) 1 ea N/A DAILY@2100 [facility] Stop: 09/05/21 20:59 Last Admin: 08/15/21 21:29 Dose: 1 ea Documented by: Pantoprazole Sodium (Pantoprazole 40 Mg Tab) 40 mg PO [facility] Stop: 09/06/21 08:59 Last Admin: 08/16/21 09:42 Dose: 40 mg Documented by: Polyethylene Glycol (Polyethylene (Miralax) 17 Gm Pack) 17 gm PO DAILY PRN PRN Reason: Constipation Stop: 09/11/21 16:14 Roflumilast (Roflumilast 500 Mcg Tab) 250 mcg PO [facility] Stop: 09/06/21 08:59 Last Admin: 08/16/21 09:41 Dose: 250 mcg Documented by: Ropinirole HCl (Ropinirole Hcl 0.25 Mg Tablet) 0.25 mg PO HS [facility] Stop: 09/05/21 20:59 Last Admin: 08/15/21 21:29 Dose: 0.25 mg Documented by: Senna/Docusate Sodium (Docusate Sodium/Senna 50/8.6mg Tab) 1 tab PO BID [facility] Stop: 09/14/21 20:59 Last Admin: 08/16/21 09:42 Dose: 1 tab Documented by: Umeclidinium [place] (Umeclidinium [place] 62.5mcg/Blister 7 Puffs/Inhaler) 1 puffs INH DAILY [facility] Stop: 09/06/21 08:59 Last Admin: 08/16/21 09:39 Dose: 1 puffs Documented by: (1) COPD (chronic obstructive pulmonary disease) COPD type: unspecified COPD Qualified Code(s): J44.9 - Chronic obstructive pulmonary disease, unspecified (2) GERD (gastroesophageal reflux disease) Esophagitis presence: esophagitis presence not specified Qualified Code(s): K21.9 - Gastro-esophageal reflux disease without esophagitis (3) Hypertension Hypertension type: unspecified Qualified Code(s): I10 - Essential (primary) hypertension
[2021-08-16] MEDS: rOPINIRole HCL 0.25 MG TABLET PO SCH (21:33)
[2021-08-17] MEDS: HYDROCODONE/ACETAMOPHEN 5/325MG TAB PO PRN ×4 (04:58→17:55)
[2021-08-17] MEDS: ASPIRIN 81 MG ECTAB PO SCH (08:58)
[2021-08-17] MEDS: diazePAM 2 MG TABLET PO SCH ×2 (08:59→20:57)
[2021-08-17] MEDS: ATORVASTATIN 40 MG TAB PO SCH (09:00)
[2021-08-17] MEDS: DOCUSATE SODIUM/SENNA 50/8.6MG TAB PO SCH ×2 (09:01→20:57)
[2021-08-17] MEDS: ENOXAPARIN INJ 40 MG/0.4 ML SYR SQ SCH (09:01)
[2021-08-17] MEDS: FLUTICASONE/VILANTEROL 100/25MCG 14 PUFFS/INHALER INH SCH (09:02)
[2021-08-17] MEDS: MAGNESIUM OXIDE 400 MG TAB PO SCH (09:03)
[2021-08-17] MEDS: LIDOCAINE 5% 1 PATCH TD SCH (09:03)
[2021-08-17] MEDS: METOPROLOL SUCC 50MG EXT REL TAB PO SCH (09:05)
[2021-08-17] MEDS: ROFLUMILAST 500 MCG TAB PO SCH (09:06)
[2021-08-17] MEDS: PANTOprazole 40 MG TAB PO SCH (09:06)
[2021-08-17] MEDS: CALCITONIN SALMON NA 200 IU/AC 3.7 ML BTL SCH (09:07)
[2021-08-17 09:15] LABS: Hematocrit (blood only) 32.2 % (37-47); Hemoglobin 9.7 g/dL (12.0-16.0); Mean Corpuscular Hemoglobin 27.5 pg (25-34); Mean Corpuscular Hgb Conc 30.1 g/dL (32-36); Mean Corpuscular Volume 91.2 fL (80-100); Mean Platelet Volume 10.9 fL (7.4-10.4); Platelet Count 210 K/uL (130-400); RDW Coefficient of Variation 13.9 % (11.5-14.5); RDW Standard Deviation 46.2 fL (36.4-46.3); Red Blood Count 3.53 M/uL (4.2-5.4)
[2021-08-17 09:45] LABS: Calcium 9.7 mg/dl (8.5-10.1); Creatinine Clr Calc Pharmacy 71.8 ml/min; Est GFR (African American) 103.5 ml/min; Est GFR (Non-African American) 89.3 ml/min; Potassium 3.8 mmol/L (3.5-5.1)
[2021-08-17] MEDS: UMECLIDINIUM BROMIDE 62.5MCG/BLISTER 7 PUFFS/INHALER INH SCH (11:36)
--- NOTE | 2021-08-17 14:32 | Discharge Summary ---
Date of Service August 17, 2021 Admission HPI Per Admitting Provider This is a 75 y/o female with a PMH of chronic hypoxemic and hypercapnic respiratory failure on 2 L of O2 at baseline, COPD, HTN, HLD, CHF, known infrarenal abdominal aortic aneurysm, GERD, fibromyalgia, essential tremor, and hx of left carotid artery dissection who presents ED secondary to worsening of low back pain x 4 days. Pt was admitted in Jun due to similar complaints and was found to have a L3 compression fracture. She was seen by ortho spine and was not a surgical candidate. Pt was managed conservatively and discharged home. She reports that pain gradually improved until four days ago when she aga in started with lower back pain. She denies any specific inciting event, specifically denies falls. She does report a productive cough related to her COPD but cannot determine if this is any worse than baseline. Pain has not been controlled on oxycodone. Pt has been on Ultram in the past but seems to develop confusion at higher doses per PCP notes. Pt reports that her legs have been "more shaky" and that she "can't do anything" because of the pain. She denies weakness in her legs or that they have given out on her. Pain does not radiate to her legs. She denies numbness, tingling. No bowel or bladder incontinence. No dysuria, hematuria, flank pain, N/V. She is currently eating a turkey sandwich during our conversation. She is on chronic O2 at home and reports she is using her baseline 2 liters. Admission Exam Per Admitting Provider Constitutional: well developed and well nourished; no acute distress Eyes: + anicteric sclerae ENMT: external ear and nose normal, oropharynx normal Neck: trachea midline Respiratory: no respiratory distress and no labored breathing Auscultation: + wheezes (occasional faint expiratory); no rales and no rhonchi Cardiovascular: Rate/Rhythm: regular rhythm and + tachycardic Vessels: dorsalis pedis pulses present and radial pulses present Gastrointestinal (Abdomen): Inspection/Auscultation: normal bowel sounds; abdomen not distended Percussion/Palpation: abdomen soft; abdomen nontender Musculoskeletal: Head/Neck/Chest: normocephalic, head atraumatic and neck supple Skin: normal turgor; no rashes and no jaundice Neurologic: moves all extremities; no focal motor deficits Psychiatric: A+Ox3, euthymic affect Principal Diagnosis T12 Compression fracture Back Pain Discharge Exam Gen: WD/WN, Chronically ill appearing F, +pain, A&O x3 HEENT: Normocephalic, atraumatic, conjunctivae moist, sclerae anicteric, mucous membranes moist. Lung: Clear to Auscultation bilaterally, no wheezes/rales/rhonchi Heart: Regular rate, regular rhythm, no murmurs, rubs, or gallops Abdomen: Soft, NT, ND +BS x 4 Extremities: No edema Skin: Warm, no rash, negative turgor. Discharge Data Allergies Allergy/AdvReac Type Severity Reaction Status Date / Time duloxetine [From Cymbalta] Allergy Mild Rash Verified 08/06/21 12:19 naproxen AdvReac Mild GI SYMPTOMS Verified 08/06/21 12:19 Consultations 08/06/21 14:38 ED Decision to Admit Stat 08/06/21 16:57 Consult Orthopedic Surgery Routine Ordered Studies Abdomen/Pelvis CT 08/06/21 11:22 CT OF THE ABDOMEN AND PELVIS WITH CONTRAST CLINICAL HISTORY: midline LBP; h/o L3 compression frx infraren AAA COMPARISON STUDY: CT of the abdomen and pelvis June 30, 2021. TECHNIQUE: Following IV administration of 98 mL of Optiray, axial images of the abdomen and pelvis were obtained from the lung bases to the proximal femurs. Images were reviewed in the axial, sagittal, and coronal planes. IV contrast was administered without complication. Automated exposure control was utilized for the study. A dose lowering technique was utilized adhering to the principles of ALARA. CT DOSE: 381.06 mGy.cm FINDINGS: Lung bases are unremarkable. No pneumatosis, free air or portal venous gas is present. The liver, spleen, adrenal glands, kidneys and pancreas are unremarkable. There are gallstones within the gallbladder. There is no evidence for acute cholecystitis. Diverticulum of the second portion the duodenum is present. There is no hydronephrosis. 3.2 cm infrarenal abdominal aortic aneurysm is unchanged. Extensive plaque is present. There is no evidence for rupture. Extensive colonic diverticulosis is noted without evidence for acute diverticulitis. There is no evidence for a bowel obstruction. Appendix is not visualized. There is no ascites or lymphadenopathy. Major vasculature is patent. Moderate L3 compression fracture is again noted. There has been increase in vertebral body height loss since CT of June 30, 2021. A mild T12 compression fracture is new since prior CT. There is no significant retropulsion. No extension into posterior elements is noted. IMPRESSION: 1. Acute to subacute mild T12 compression fracture. This is new since CT of June 30, 2021. 2. Redemonstration of an L3 compression fracture with interval increase in vertebral body height loss since prior exam. 3. No change in a 3.2 cm infrarenal abdominal aortic aneurysm. No rupture. 4. Cholelithiasis. ACT 112: Negative or not required by law. Electronically signed by: Jas Franco M.D. 08/06/2021 1:05 PM Carotid Doppler Study 08/11/21 09:27 ULTRASOUND OF THE CAROTID ARTERIES CLINICAL HISTORY: neck pain, ff up left carotid artery dissection COMPARISON: Comparison is made to CTA head and neck 05/27/2021 TECHNIQUE: Real-time, grayscale, and color Doppler sonography of the left carotid arteries is performed. Images are reviewed in the transverse and longitudinal planes. FINDINGS: The carotid arteries are patent bilaterally and demonstrate antegrade flow. The re is no atherosclerotic plaque on the right and no atherosclerotic plaque on the left. Normal doppler arterial waveforms are seen throughout. Velocity measurements are listed below. Common carotid peak systolic velocity (cm/sec): RIGHT: LEFT: 73 ICA proximal peak systolic velocity (cm/sec): RIGHT: LEFT: 101 ICA mid peak systolic velocity (cm/sec): RIGHT: LEFT: 86 ICA distal peak systolic velocity (cm/sec): RIGHT: LEFT: 98 ICA/CC peak systolic ratio: RIGHT: LEFT: 1.4 Antegrade flow was shown in the left vertebral artery. The left external carotid artery is patent. IMPRESSION: 1. There is no sonographic evidence of hemodynamically significant stenosis in the left carotid arterial system. The previous seen noted dissection flap was not seen on today's exam. 2. Antegrade flow is shown in the left vertebral artery. Society of Radiologists in Ultrasound consensus guidelines: Normal: ICA PSV is <125 cm/sec and no plaque or intimal thickening is visible sonographically additional criteria include ICA/CCA PSV ratio <2.0 and ICA EDV <40 cm/sec <50% ICA stenosis: ICA PSV is <125 cm/sec and plaque or intimal thickening is visible sonographically additional criteria include ICA/CCA PSV ratio <2.0 and ICA EDV <40 cm/sec 50-69% ICA stenosis: ICA PSV is 125-230 cm/sec and plaque is visible sonographically additional criteria include ICA/CCA PSV ratio of 2.0-4.0 and ICA EDV of 40-100 cm/sec ?70% ICA stenosis but less than near occlusion: ICA PSV is >230 cm/sec and visible plaque and luminal narrowing are seen at kowalski-scale and color Doppler ultrasound (the higher the Doppler parameters lie above the threshold of 230 cm/sec, the greater the likelihood of severe disease) additional criteria include ICA/CCA PSV ratio >4 and ICA EDV >100 cm/sec ACT 112: Negative or not required by law. Electronically signed by: Nikita Mcgill M.D. 08/11/2021 12:18 PM Hospital Course (1) T12 compression fracture: (2) Intractable back pain: (3) COPD (chronic obstructive pulmonary disease): (4) Aneurysm of infrarenal abdominal aorta: (5) Obesity hypoventilation syndrome: (6) Chronic respiratory failure with hypoxia and hypercapnia: (7) Hypertension: (8) GERD (gastroesophageal reflux disease): (9) Fibromyalgia: (10) Dyslipidemia: (11) Osteoporosis: This is a 75 y/o female with a PMH of chronic hypoxemic and hypercapnic respiratory failure on 2 L of O2 at baseline, COPD, HTN, HLD, CHF, known infrarenal abdominal aortic aneurysm, GERD, fibromyalgia, essential tremor, and hx of left carotid artery dissection who presents ED secondary to worsening of low back pain x 4 days and was found to have acute to subacute mild T12 compression fracture. CT abd/pelvis showed acute to subacute mild T12 compression fracture. This is new since CT of June 30, 2021. Re demonstration of an L3 compression fracture with interval increase in vertebral body height loss since prior exam. She was seen and evaluated by orthopedic spine who recommended conservative management. She did receive Calcitonin Nasal spray. She worked with physical therapy and occupational therapy during hospital stay. Her pain was optimized using hydrocodone/acetaminophen every 4 hours as needed as well as valium 1mg every 12 hours. She was ambulating with rolling walker on day of discharge and pain was much better controlled. Rehab was recommended for patient. Case management exhausted options to find patient rehab; however patient ultimately declined and wishes to return home with home health services. During hospital stay she did Have her left carotid artery reimaged in setting of prior incidental finding of left carotid artery dissection during hospitalization in May 2021. Repeat imaging revealed normal left carotid artery and previous dissection was no longer seen. Her Plavix was discontinued. She otherwise remained medically stable during admission & on day of discharge was in good spirits to return to home. Her vital signs were stable and she was saturating normally on her home 2L of oxygen. Total Time Total Time Spent Total Time Spent (In Minutes): 45 minutes Total Time Includes: Examination of the Patient, Discharge Planning, Medication Reconciliation, Communication With Other Providers and Other Discharge Plan Discharge Items Patient Disposition: Home - Home Health Services Reason For Visit: INTRACTABLE BACK PAIN *UNI/LTD* Discharge Diagnosis: T12 Compression fracture Back Pain Condition on Discharge: Good Activity: As commented below Lifting: Gradually increase as tolerated Bathing: No limitations Driving/Machine Use: Do not operative motor vehicle while using Narcotics Weightbearing: Full weightbearing Non-emergency contact: Primary Care Provider Call non-emergency contact if: you have any medication questions, your symptoms worsen, your pain is not controlled, your pain is worsening, your pain is unu sual for you, your pain is concerning for you, you have a fever and your temperature is above 101 Follow-up/Referrals: Paige Bartholomew MD [Primary Care Provider] - (Date & Time 08/22/2021 11:20 AM Provider Paige Bartholomew MD Department Family Practice [facility] ) Diet: Heart Healthy Diet Texture: Easy to Chew Addtl Attending Provider Instructions: MEDICATION CHANGES: STOP * Plavix 75mg one tablet by mouth daily START * Valium 1mg tablet by mouth twice daily as needed for muscle spasm * Hydrocodone/Acetaminophen 5-325mg one tablet by mouth every 4 hours as needed for pain Continue all other medications as prescribed Encourage daily stool softener use while taking prescription pain medications. SUMMARY OF TEST RESULTS: You were found to have a new mild compression fracture on your T12 Vertebrae. This was found on imaging and was new compared to prior Cat Scans. It also confirmed a compression fracture at L 3 vertebrae, which was found during previous hospitalization. This was considered to be old. You were admitted to hospital for pain control and physical/occupational therapy. During hospitalization you had a repeat ultrasound of your L carotid artery. This was to compare to previous hospitalization in May of 2021 which revealed you had a tear in the wall of your blood vessel. You were started on Plavix 75mg by mouth daily for this. The repeat ultrasound no longer showed the tear in the wall of your vessel so your Plavix was discontinued. PENDING TEST RESULTS: None RECOMMENDATIONS FOR FOLLOW-UP: Please follow up with your PCP Dr. Bartholomew on 08/22/21 at 11:20 a.m. Continue Physical Therapy as an outpatient with home health. You are prescribed acetaminophen hydrocodone, 1 tablet every 4 hours as needed for pain. Do not drive or operate heavy equipment while taking this medication. You may also take Valium 1 mg every 12 hours as needed for muscle spasm. Alternate heat and ice therapy to back for pain relief. You may also take Ibuprofen, 400mg, three times daily as needed for break through pain. Do not exceed more than three times daily. Encourage daily stool softerner use while taking pain medication. Would recommend over the counter colace, 100mg, once daily. Recommend follow up Abdominal Ultrasound in May of 2022 to re evaluate Abdominal Aneurysm. Recommend follow up with vascular surgery as outpatient. OTHER INSTRUCTIONS: Seek medical attention if you have: * temperature above 101 * chest pain or trouble breathing * abdominal pain, nausea, vomiting * diarrhea, dark stools or bloody stools * any unanswered questions or concerns Call 911 if symptoms are severe. Please take good care of yourself. It has been a pleasure taking care of you. Please take care of yourself. If you have any questions regarding your recent hospitalization please contact [facility] and request Ana Laura Hospitalist @ [phone]. Karen Singh PA-C Pending Studies at Discharge: No Stand-Alone Forms: My [facility], Smoking Cessation Medications and DC Order Prescriptions: New diazepam 2 mg Tablet 1 mg PO BID PRN (Reason: muscle spasm) Qty: 10 RF: 0 hydrocodone-acetaminophen 5-325 mg Tablet 1 tab PO Q4H PRN (Reason: severe pain (scale score 7-10)) Qty: 20 RF: 0 Continued Daliresp 250 mcg tablet 250 mcg PO QAM Qty: 90 RF: 1 (DME) Oxygen Home Liters Per Minute See Rx Instructions .ROUTE .MEDSUPPLY Qty: 1 RF: 0 albuterol sulfate [Ventolin HFA] 90 mcg/actuation HFA aerosol inhaler 2 puff INHALATION QID PRN (Reason: Shortness Of Breath Or Wheezing) Qty: 8.5 RF: 5 magnesium oxide 400 mg magnesium Capsule 400 mg PO QAM RF: 0 atorvastatin [Lipitor] 40 mg Tablet 40 mg PO QAM RF: 0 losartan [Cozaar] 25 mg Tablet 25 mg PO QAM RF: 0 metoprolol succinate [Toprol XL] 50 mg tablet extended release 24 hr 50 mg PO QAM RF: 0 ipratropium-albuterol 0.5 mg-3 mg(2.5 mg base)/3 mL solution for nebulization 3 ml INHALATION Q4H PRN (Reason: COUGH OR WHEEZE) RF: 0 umeclidinium 62.5 mcg/actuation Blister With Device 1 inh INHALATION DAILY RF: 0 ergocalciferol (vitamin D2) 1,250 mcg (50,000 unit) Capsule 50,000 unit PO Q7D@2100 Qty: 8 RF: 0 aspirin [Aspirin Low Dose] 81 mg Tablet,Delayed Release (Dr/Ec) 81 mg PO QAM RF: 0 Multivitamin Gummies 200 mcg Tablet,Chewable 2 tab PO QAM RF: 0 ropinirole 0.25 mg tablet 0.25 mg PO HS RF: 0 pantoprazole [Protonix] 40 mg tablet,delayed release (DR/EC) 40 mg PO QAM RF: 0 budesonide-formoterol [Symbicort] 160-4.5 mcg/actuation HFA aerosol inhaler 2 puff INH BID RF: 0 ondansetron 4 mg tablet,disintegrating 4 mg translingual Q6H PRN (Reason: Nausea And Vomiting) RF: 0 docusate sodium 100 mg capsule 100 mg PO QAM RF: 0 Discontinued clopidogrel [Plavix] 75 mg tablet 75 mg PO QAM RF: 0 Admission Data Admit Date/Time: 08/07/21 23:58 Attending Provider: Tosin Jaquez Admit Provider: Tosin Jaquez Primary Care Provider: Paige Bartholomew Other Providers: Tosin Jaquez ; Marcelino Silva ; [facility],Home Healthcare ; [facility] ; [facility] [place] ; Sommer Cherry ; Karen Singh ; [place],[facility] ; [facility] Home Health Attestation I certify that this patient is under my care and that I, or a physicians assistant chief train dispatcher working with me, had a face to-face encounter that meets the home health [facility]up-[facility]-dorc encounter requirements with this patient. The encounter with the patient was in whole, or in part, for the following medical condition, which is the primary reason for home health care (list medical condition): Current pt; RN, PT I certify that, based on my findings, the following services are medically necessary home health services: My clinical findings support the need for the above services because: PT Assessment for Endurance / Balance / Strength PT Eval for Safety and Mobility PT Eval for Safety, Gait Training, Assistive Devices Skilled Nsg Assessment S/S to Report to Provider Further, I certify that my clinical findings support that this patient is homebound (i.e. absences from home require considerable and taxing effort and are for medical reasons or orthodox services or infrequently or of short duration when for other reasons) because: Supportive Aid - Walker Certification for Home Health Services: Based on the above findings, I certify that this patient is confined to the home and needs intermittent mcc care, physical therapy and/or speech therapy or continues to need occupational therapy. The patient is under my care, and I have initiated the establishment of the plan of care. This patient will be followed by a physician who will periodically review the plan of care.
--- NOTE | 2021-08-17 17:09 | Hospitalist Progress Note ---
Date of Service August 17, 2021 Assessment & Plan (1) Intractable back pain: (2) T12 compression fracture: (3) Ambulatory dysfunction: (4) COPD (chronic obstructive pulmonary disease): (5) Chronic respiratory failure with hypoxia and hypercapnia: (6) Chronic diastolic heart failure: (7) Hypertension: Plan: This is a 75 y/o female with a PMH of chronic hypoxemic and hypercapnic respiratory failure on 2 L of O2 at baseline, COPD, HTN, HLD, CHF, known infrar enal abdominal aortic aneurysm, GERD, fibromyalgia, essential tremor, and hx of left carotid artery dissection who presents ED secondary to worsening of low back pain x 4 days and was found to have acute to subacute mild T12 compression fracture. Low Back Pain Ambulatory dysfunction Acute to subacute mild T12 compression fracture CT abd/pelvis showed acute to subacute mild T12 compression fracture. This is new since CT of June 30, 2021. Re demonstration of an L3 compression fracture with interval increase in vertebral body height loss since prior exam Continue Pain controlled with oxycodone and lidocaine. Prednisone trialed but discontinued Case discussed with ortho Dr. Silva that recommended conservative management. No plan for any surgical intervention given multiple co morbidities and poor surgical candidate K pad order by Ortho, Fall precaution Lidoderm patch, Valium BID Tramadol tried w/o relief; D/C and trial [place] q6h [place] helping PT/OT Senna S BID, + BM today HTN bp stable continue losartan and metoprolol Vitamin D deficiency Level 23 Vitamin D 50,000 units every week x4 weeks, then repeat vitamin D levels COPD Chronic hypoxic respiratory failure with hypercapnia on 3 L of O2 Stable; no acute exacerbation Continue Symbicort and Umeclidinium as well as Daliresp BiPAP at bedtime Follows [facility] Chronic diastolic CHF euvolemic Continue aspirin, statin, losartan and metoprolol No cardiac symptoms History of left carotid artery dissection Found incidentally during recent admission in May Was seen and evaluated by vascular surgery, no acute intervention On Plavix and encouraged to take for at least 30 day, starting 05/31 F/U Carotid U/S is negative, Plavix discontinued Infrarenal abdominal aortic aneurysm CT showed no change in a 3.2 cm infrarenal abdominal aortic aneurysm. Previously seen on prior imaging Re-eval via US in 1 year, 05/2022 Follow-up with vascular surgery as outpatient Stable DVT Prophylaxis:Lovenox Code Status: full code Disposition:Stable, ready for discharge, plan to go home with HH, pt insurance declined acute rehab, pt declining SNF. She is ready to go just awaiting ride from family. Meds to beds already delivered pt supply of norco and valium. Admission and Anticipated Discharge Date Admission Date: August 07, 2021 Supervising Physician Co-Signing Physician Notes Pt was seen and examined. Agreed with Karen Mckinney exam, assessment and plan. Pt said that she continue to have back pain. pain med seems to help. She was able to participate in therapy. Fall precaution. Insurance denies rehab. Plan to go home with HH. Continue monitor. MD Gisele Subjective Patient was seen and examined in room 378-1. Follow up thoracic compression fracture. She is doing much better today and pain is much more controlled with hydrocodone. She has been up and ambulating the halls with staff. She denies fever, chills, sweats, chest pain, shortness of breath, nausea, vomiting, abdominal pain. She is tolerating her diet. She had a bowel movement today. She feels like her breathing is at baseline. Review of Systems Review of Systems: All systems reviewed & are unremarkable except as noted in HPI & below Physical Exam Physical Exam: Gen: WD/WN, Chronically ill appearing F, +pain, A&O x3 HEENT: Normocephalic, atraumatic, conjunctivae moist, sclerae anicteric, mucous membranes moist. Lung: Clear to Auscultation bilaterally, no wheezes/rales/rhonchi on 2 L of O2 via NC, diminished breath sounds at bases Heart: Regular rate, regular rhythm, no murmurs, rubs, or gallops Abdomen: Soft, NT, ND +BS x 4 Extremities: No edema Skin: Warm, no rash, negative turgor. Results & Data Results & Data ([facility]) Vital Signs (Past 12 Hours) Vital Signs Temp Pulse Resp BP Pulse Ox 08/17/21 15:55 36.4 C L 84 16 102/60 95 08/17/21 07:49 36.7 C 89 18 121/60 95 Laboratory Results Short CBC 08/06/21 08/17/21 08/17/21 Range/Units Unknown 08:27 08:27 WBC 4.60 L (4.8-10.8) K/uL Hgb 9.7 L (12.0-16.0) g/dL Hct 32.2 L (37-47) % Plt Count 210 (130-400) K/uL Calcium 10.2 H 9.7 (8.5-10.1) mg/dl [facility] 08/17/21 08:27 Sodium 139 Potassium 3.8 Chloride 97 L Carbon Dioxide 39 H BUN 14 Creatinine 0.56 L Glucose 124 H Calcium 9.7 Medications Administered Current Inpatient Medications Hydrocodone Bitart/Acetaminophen (Hydrocodone/Acetamophen 5/325mg Tab) 1 tab PO Q4H PRN PRN Reason: Pain Stop: 08/28/21 17:57 Last Admin: 08/17/21 13:11 Dose: 1 tab Documented by: Albuterol (Albut/Ipratrop 3mg/0.5mg Neb 3 Ml Vial) 3 ml INH Q4H PRN PRN Reason: COUGH OR WHEEZE Stop: 09/05/21 18:13 Last Admin: 08/13/21 19:44 Dose: 3 ml Documented by: Aspirin (Aspirin 81 Mg Ectab) 81 mg PO QAM [facility] Stop: 09/06/21 08:59 Last Admin: 08/17/21 08:58 Dose: 81 mg Documented by: Atorvastatin Cal[place] (Atorvastatin 40 Mg Tab) 40 mg PO QAM [facility] Stop: 09/06/21 08:59 Last Admin: 08/17/21 09:00 Dose: 40 mg Documented by: Calcitonin [place] (Calcitonin [place] Na 200 Iu/Ac 3.7 Ml Btl) 1 sprays NA DAILY [facility] Stop: 09/07/21 10:59 Last Admin: 08/17/21 09:07 Dose: 1 sprays Documented by: Diazepam (Diazepam 2 Mg Tablet) 1 mg PO BID [facility] Stop: 09/05/21 20:59 Last Admin: 08/17/21 08:59 Dose: 1 mg Documented by: Enoxaparin Sodium (Enoxaparin Inj 40 Mg/0.4 Ml Syr) 40 mg SQ Q24H [facility] Stop: 09/06/21 08:59 Last Admin: 08/17/21 09:01 Dose: 40 mg Documented by: Fluticasone/Vilanterol (Fluticasone/Vilanterol 100/25mcg 14 Puffs/Inhaler) 1 puffs INH DAILY [facility] Stop: 09/06/21 08:59 Last Admin: 08/17/21 09:02 Dose: 1 puffs Documented by: Lidocaine (Lidocaine 5% 1 Patch) [facility] [place] Stop: 09/05/21 18:13 Last Admin: 08/17/21 09:03 Dose: 1 patch Documented by: Losartan Potassium (Losartan Potassium 25 Mg Tab) 25 mg PO QAM [facility] Stop: 09/06/21 08:59 Last Admin: 08/16/21 09:42 Dose: 25 mg Documented by: Magnesium Hydroxide (Magnesium Hydroxide Susp 30 Ml Udc) 30 ml PO Q6H PRN PRN Reason: Constipation Stop: 09/09/21 17:16 Last Admin: 08/12/21 10:05 Dose: 30 ml Documented by: Magnesium Oxide (Magnesium Oxide 400 Mg Tab) 400 mg PO QAM [facility] Stop: 09/06/21 08:59 Last Admin: 08/17/21 09:03 Dose: 400 mg Documented by: Metoprolol Succinate (Metoprolol Succ 50mg Ext Rel Tab) 50 [facility] [place] Stop: 09/06/21 08:59 Last Admin: 08/17/21 09:05 Dose: 50 mg Documented by: Miscellaneous (Remove Lidoderm Patch) 1 ea N/A DAILY@2100 [facility] Stop: 09/05/21 20:59 Last Admin: 08/16/21 21:33 Dose: 1 ea Documented by: Pantoprazole Sodium (Pantoprazole 40 Mg Tab) 40 mg PO QAM [facility] Stop: 09/06/21 08:59 Last Admin: 08/17/21 09:06 Dose: 40 mg Documented by: Polyethylene Glycol (Polyethylene (Miralax) 17 Gm Pack) 17 gm PO DAILY PRN PRN Reason: Constipation Stop: 09/11/21 16:14 Roflumilast (Roflumilast 500 Mcg Tab) 250 mcg [facility] [place] Stop: 09/06/21 08:59 Last Admin: 08/17/21 09:06 Dose: 250 mcg Documented by: Ropinirole HCl (Ropinirole Hcl 0.25 Mg Tablet) 0.25 mg PO HS [facility] Stop: 09/05/21 20:59 Last Admin: 08/16/21 21:33 Dose: 0.25 mg Documented by: Senna/Docusate Sodium (Docusate Sodium/Senna 50/8.6mg Tab) 1 tab PO BID [facility] Stop: 09/14/21 20:59 Last Admin: 08/17/21 09:01 Dose: 1 tab Documented by: Umeclidinium [place] (Umeclidinium [place] 62.5mcg/Blister 7 Puffs/Inhaler) 1 puffs INH DAILY [facility] Stop: 09/06/21 08:59 Last Admin: 08/17/21 11:36 Dose: 1 puffs Documented by: (1) COPD (chronic obstructive pulmonary disease) COPD type: unspecified COPD Qualified Code(s): J44.9 - Chronic obstructive pulmonary disease, unspecified (2) Hypertension Hypertension type: unspecified Qualified Code(s): I10 - Essential (primary) hypertension
[2021-08-17] MEDS: rOPINIRole HCL 0.25 MG TABLET PO SCH (20:58)
[2021-08-18] MEDS: HYDROCODONE/ACETAMOPHEN 5/325MG TAB PO PRN ×3 (03:54→13:00)
[2021-08-18] MEDS: LOSARTAN POTASSIUM 25 MG TAB PO SCH (08:49)
[2021-08-18] MEDS: diazePAM 2 MG TABLET PO SCH (08:49)
[2021-08-18] MEDS: METOPROLOL SUCC 50MG EXT REL TAB PO SCH (08:49)
[2021-08-18] MEDS: ASPIRIN 81 MG ECTAB PO SCH (08:49)
[2021-08-18] MEDS: DOCUSATE SODIUM/SENNA 50/8.6MG TAB PO SCH (08:49)
[2021-08-18] MEDS: ATORVASTATIN 40 MG TAB PO SCH (08:49)
[2021-08-18] MEDS: MAGNESIUM OXIDE 400 MG TAB PO SCH (08:50)
[2021-08-18] MEDS: PANTOprazole 40 MG TAB PO SCH (08:50)
[2021-08-18] MEDS: ROFLUMILAST 500 MCG TAB PO SCH (08:50)
[2021-08-18] MEDS: CALCITONIN SALMON NA 200 IU/AC 3.7 ML BTL SCH (08:51)
[2021-08-18] MEDS: FLUTICASONE/VILANTEROL 100/25MCG 14 PUFFS/INHALER INH SCH (08:51)
[2021-08-18] MEDS: LIDOCAINE 5% 1 PATCH TD SCH (08:51)
[2021-08-18] MEDS: ENOXAPARIN INJ 40 MG/0.4 ML SYR SQ SCH (08:51)
[2021-08-18] MEDS: UMECLIDINIUM BROMIDE 62.5MCG/BLISTER 7 PUFFS/INHALER INH SCH (08:51)
--- NOTE | 2021-08-18 12:12 | Discharge Summary ---
Date of Service August 18, 2021 Admission HPI Per Admitting Provider This is a 75 y/o female with a PMH of chronic hypoxemic and hypercapnic respiratory failure on 2 L of O2 at baseline, COPD, HTN, HLD, CHF, known infrarenal abdominal aortic aneurysm, GERD, fibromyalgia, essential tremor, and hx of left carotid artery dissection who presents ED secondary to worsening of low back pain x 4 days. Pt was admitted in Jun due to similar complaints and was found to have a L3 compression fracture. She was seen by ortho spine and was not a surgical candidate. Pt was managed conservatively and discharged home. She reports that pain gradually improved until four days ago when she aga in started with lower back pain. She denies any specific inciting event, specifically denies falls. She does report a productive cough related to her COPD but cannot determine if this is any worse than baseline. Pain has not been controlled on oxycodone. Pt has been on Ultram in the past but seems to develop confusion at higher doses per PCP notes. Pt reports that her legs have been "more shaky" and that she "can't do anything" because of the pain. She denies weakness in her legs or that they have given out on her. Pain does not radiate to her legs. She denies numbness, tingling. No bowel or bladder incontinence. No dysuria, hematuria, flank pain, N/V. She is currently eating a turkey sandwich during our conversation. She is on chronic O2 at home and reports she is using her baseline 2 liters. Admission Exam Per Admitting Provider Constitutional: well developed and well nourished; no acute distress Eyes: + anicteric sclerae ENMT: external ear and nose normal, oropharynx normal Neck: trachea midline Respiratory: no respiratory distress and no labored breathing Auscultation: + wheezes (occasional faint expiratory); no rales and no rhonchi Cardiovascular: Rate/Rhythm: regular rhythm and + tachycardic Vessels: dorsalis pedis pulses present and radial pulses present Gastrointestinal (Abdomen): Inspection/Auscultation: normal bowel sounds; abdomen not distended Percussion/Palpation: abdomen soft; abdomen nontender Musculoskeletal: Head/Neck/Chest: normocephalic, head atraumatic and neck supple Skin: normal turgor; no rashes and no jaundice Neurologic: moves all extremities; no focal motor deficits Psychiatric: A+Ox3, euthymic affect Principal Diagnosis Intractable back pain T12 compression fracture Discharge Exam Gen: WD/WN, NAD, sitting in bed comfortably, A&Ox3 HEENT: Normocephalic, atraumatic, conjunctivae moist, sclerae anicteric, mucous membranes moist Lung: Clear to Auscultation bilaterally, no wheezes/rales/rhonchi Heart: Regular rate, regular rhythm, no murmurs, rubs, or gallops Abdomen: Soft but mildly distended, non-tender, +BS x 4 Extremities: + TTP thoracic spine. No edema or deformities noted Skin: Warm, no rash Discharge Data Allergies Allergy/AdvReac Type Severity Reaction Status Date / Time duloxetine [From Cymbalta] Allergy Mild Rash Verified 08/29/21 10:26 naproxen AdvReac Mild GI SYMPTOMS Verified 08/29/21 10:26 Consultations 08/06/21 14:38 ED Decision to Admit Stat 08/06/21 16:57 Consult Orthopedic Surgery Routine Ordered Studies 08/06/21 11:22 CT abd pelvis IV con only Stat 08/11/21 09:27 US carotid doppler uni/ltd Routine Hospital Course (1) Intractable back pain: (2) T12 compression fracture: (3) Ambulatory dysfunction: (4) COPD (chronic obstructive pulmonary disease): (5) Chronic respiratory failure with hypoxia and hypercapnia: (6) Chronic diastolic heart failure: (7) Hypertension: This is a 75 y/o female with a PMH of chronic hypoxemic and hypercapnic respiratory failure on 2 L of O2 at baseline, COPD, HTN, HLD, CHF, known infrarenal abdominal aortic aneurysm, GERD, fibromyalgia, essential tremor, and hx of left carotid artery dissection who presents ED secondary to worsening of low back pain x 4 days and was found to have acute to subacute mild T12 compression fracture. Case was discussed with Dr. Silva, who recommended conservative management. No plan for surgical intervention given multiple comorbidities and poor surgical candidate. Pain regimen adjusted to now include lidocaine patch, Valium twice daily and [place] every 6 hours as needed. Prednisone and tramadol trialed without relief so discontinued. Adjusted bowel regimen. Of note, left carotid artery dissection was found incidentally during recent admission in May and Plavix was started. Repeat imaging of carotid this admission no longer shows dissection and Plavix was discontinued. Plan to discharge home with home health services. Patient hemodynamically stable at time of discharge. Total Time Total Time Spent Total Time Spent (In Minutes): 45 Discharge Plan Discharge Items Patient Disposition: Home - Home Health Services Reason For Visit: INTRACTABLE BACK PAIN *UNI/LTD* Discharge Diagnosis: T12 Compression fracture Back Pain Condition on Discharge: Good Activity: As commented below Lifting: Gradually increase as tolerated Bathing: No limitations Driving/Machine Use: Do not operative motor vehicle while using Narcotics Weightbearing: Full weightbearing Non-emergency contact: Primary Care Provider Call non-emergency contact if: you have any medication questions, your symptoms worsen, your pain is not controlled, your pain is worsening, your pain is unusual for you, your pain is concerning for you, you have a fever and your temperature is above 101 Follow-up/Referrals: [facility] [Other] (Date & Time 08/19/2021 12:00 PM Provider GENEVA Arthur Department [facility], [facility] ) Paige Bartholomew MD [Primary Care Provider] - (Date & Time 08/22/2021 11:20 AM Provider Piage Bartholomew MD Department [facility] ) Diet: Heart Healthy Diet Texture: Easy to Chew Addtl Attending Provider Instructions: MEDICATION CHANGES: STOP * Plavix 75mg one tablet by mouth daily START * Valium 1mg tablet by mouth twice daily as needed for muscle spasm * Hydrocodone/Acetaminophen 5-325mg one tablet by mouth every 4 hours as needed for pain Continue all other medications as prescribed Encourage daily stool softener use while taking prescription pain medications. SUMMARY OF TEST RESULTS: You were found to have a new mild compression fracture on your T12 Vertebrae. This was found on imaging and was new compared to prior Cat Scans. It also confirmed a compression fracture at L 3 vertebrae, which was found during previous hospitalization. This was considered to be old. You were admitted to hospital for pain control and physical/occupational therapy. During hospitalization you had a repeat ultrasound of your L carotid artery. This was to compare to previous hospitalization in May of 2021 which revealed you had a tear in the wall of your blood vessel. You were started on Plavix 75mg by mouth daily for this. The repeat ultrasound no longer showed the tear in the wall of your vessel so your Plavix was discontinued. PENDING TEST RESULTS: None RECOMMENDATIONS FOR FOLLOW-UP: Please follow up with your PCP Dr. Bartholomew on 08/22/21 at 11:20 a.m. Continue Physical Therapy as an outpatient with home health. You are prescribed acetaminophen hydrocodone, 1 tablet every 4 hours as needed for pain. Do not drive or operate heavy equipment while taking this medication. You may also take Valium 1 mg every 12 hours as needed for muscle spasm. Alternate heat and ice therapy to back for pain relief. You may also take Ibuprofen, 400mg, three times daily as needed for break through pain. Do not exceed more than three times daily. Encourage daily stool softener use while taking pain medication. Would recommend over the counter colace, 100mg, once daily. Recommend follow up Abdominal Ultrasound in May of 2022 to re evaluate Abdominal Aneurysm. Recommend follow up with vascular surgery as outpatient. OTHER INSTRUCTIONS: Seek medical attention if you have: * temperature above 101 * chest pain or trouble breathing * abdominal pain, nausea, vomiting * diarrhea, dark stools or bloody stools * any unanswered questions or concerns Call 911 if symptoms are severe. Please take good care of yourself. It has been a pleasure taking care of you. Please take care of yourself. If you have any questions regarding your recent hospitalization please contact [facility] and request Ana Laura Hospitalist @ [phone]. Pending Studies at Discharge: No Stand-Alone Forms: My [facility], Smoking Cessation Medications and DC Order Prescriptions: New diazepam 2 mg Tablet 1 mg PO BID PRN (Reason: muscle spasm) Qty: 10 RF: 0 hydrocodone-acetaminophen 5-325 mg Tablet 1 tab PO Q4H PRN (Reason: severe pain (scale score 7-10)) Qty: 20 RF: 0 Continued Daliresp 250 mcg tablet 250 mcg PO QAM Qty: 90 RF: 1 (DME) Oxygen Home Liters Per Minute See Rx Instructions .ROUTE .MEDSUPPLY Qty: 1 RF: 0 albuterol sulfate [Ventolin HFA] 90 mcg/actuation HFA aerosol inhaler 2 puff INHALATION QID PRN (Reason: Shortness Of Breath Or Wheezing) Qty: 8.5 RF: 5 magnesium oxide 400 mg magnesium Capsule 400 mg PO QAM RF: 0 atorvastatin [Lipitor] 40 mg Tablet 40 mg PO QAM RF: 0 losartan [Cozaar] 25 mg Tablet 25 mg PO QAM RF: 0 metoprolol succinate [Toprol XL] 50 mg tablet extended release 24 hr 50 mg PO QAM RF: 0 ipratropium-albuterol 0.5 mg-3 mg(2.5 mg base)/3 mL solution for nebulization 3 ml INHALATION Q4H PRN (Reason: COUGH OR WHEEZE) RF: 0 ergocalciferol (vitamin D2) 1,250 mcg (50,000 unit) Capsule 50,000 unit PO Q7D@2100 Qty: 8 RF: 0 aspirin [Aspirin Low Dose] 81 mg Tablet,Delayed Release (Dr/Ec) 81 mg PO QAM RF: 0 Multivitamin Gummies 200 mcg Tablet,Chewable 2 tab PO QAM RF: 0 ropinirole 0.25 mg tablet 0.25 mg PO HS RF: 0 pantoprazole [Protonix] 40 mg tablet,delayed release (DR/EC) 40 mg PO QAM RF: 0 budesonide-formoterol [Symbicort] 160-4.5 mcg/actuation HFA aerosol inhaler 2 puff INH BID RF: 0 ondansetron 4 mg tablet,disintegrating 4 mg translingual Q6H PRN (Reason: Nausea And Vomiting) RF: 0 docusate sodium 100 mg capsule 100 mg PO QAM RF: 0 Discontinued clopidogrel [Plavix] 75 mg tablet 75 mg PO QAM RF: 0 No Action oxycodone 5 mg tablet 5 mg PO Q8H PRN (Reason: Pain) RF: 0 Discharge Orders: Discharge Order (Routine); Ordered 08/18/21 Ordered By: Sommer Cherry Admission Data Admit Date/Time: 08/07/21 23:58 Attending Provider: Tosin Jaquez Admit Provider: Tosin Jaquez Primary Care Provider: Paige Bartholomew Other Providers: Marcelino Silva Other Interventions: Discharge Summary Assessment (RN) Last Done: 08/18/21 13:26
[2021-08-18 14:10] LABS: Appearance Urine Cloudy (Clear); Bacteria Urine Automated Negative (Negative); Bilirubin Urine Negative (Negative); Blood Urine Negative (Negative); Color Urine Yellow; Epithelial Cell Urine Auto >30 /lpf (0-5); Glucose Urine UA Negative (Negative); Ketones Urine Negative (Negative); Leukocyte Esterase Urine Negative (Negative); Nitrite Urine Negative (Negative); Protein Urine Negative (Negative); RBC Urine Automated 0-4 /hpf (0-4); Specific Gravity Urine 1.016 (1.000-1.030); Urobilinogen Urine Negative (Negative); pH Urine >= 9.0 (4.5-7.5)
== END 2021-08-18 16:07 | disposition home health service (06) | DRG 543 ==
LOC: 3N 11:12 → ED 11:12 → 3N 18:00 → SUATTDRO 08-07 23:58
DX: S22.089A Unspecified fracture of T11-T12 vertebra, initial encounter for closed fracture; Z87.891 Personal history of nicotine dependence; J96.11 Chronic respiratory failure with hypoxia; E78.5 Hyperlipidemia, unspecified; J44.9 Chronic obstructive pulmonary disease, unspecified; I50.32 Chronic diastolic (congestive) heart failure; K80.20 Calculus of gallbladder without cholecystitis without obstruction; X58.XXXA Exposure to other specified factors, initial encounter; I11.0 Hypertensive heart disease with heart failure; Z79.82 Long term (current) use of aspirin; Z99.81 Dependence on supplemental oxygen; J96.12 Chronic respiratory failure with hypercapnia; M79.7 Fibromyalgia; K21.9 Gastro-esophageal reflux disease without esophagitis; M80.88XA Other osteoporosis with current pathological fracture, vertebra(e), initial encounter for fracture; E66.2 Morbid (severe) obesity with alveolar hypoventilation

== ENCOUNTER 2021-08-29 08:32 | Inpatient (IN) ==
--- NOTE | 2021-08-29 08:56 | Emergency Department Note ---
Impression & Plan Chronic respiratory failure with hypoxia and hypercapnia, COPD (chronic obstructive pulmonary disease), Tachycardia, Pneumonia ED Provider Note NAME: ARTURO HIDALGO AGE: 76 SEX: F : 1945 ARRIVES VIA: Ambulance INFORMANT: Patient, ED PROVIDER(S): Thien Murcia MD Chief Complaint: Shortness of breath HPI: Patient was discharged on August 18. The patient had presented due to concern for low back pain. Patient does have a known history of hypoxemic and hypercapnic respiratory failure on 2 L of chronic O2 at all time with a history of COPD hypertension hyperlipidemia CHF infrarenal AAA GERD fibromyalgia essential tremor and left carotid artery dissection. Patient does present shortness of breath that began yesterday. The patient is unsure as to whether not it is exertional or positional. The patient denies any cough. Patient denies any fevers or chills. Patient was found to have acute compression fractures the time of her most recent admission and was recommended to have conservative management. Patient was to be taking Valium and [place]. Patient denies any chest pains. The patient is not vaccinated for COVID-19. ROS: See HPI for pertinent positives and negatives. A total of 10 systems were reviewed and otherwise negative. Past medical history: See below Surgical history: See below Social history: See below Physical Exam: GENERAL: NAD, wearing a mask, non-toxic. EYE EXAM: Normal conjunctiva. PERRL, no anisocoria and EOM's grossly intact w/o pain. OROPHARYNX: Moist mucus membranes. Grossly normal dentition. NECK: Supple, no nuchal rigidity, no adenopathy, non-tender. No signs of meningismus. LUNGS: Expiratory wheezing throughout. Normal chest wall mechanics. HEART: Tachycardic and regular, no MRG. ABDOMEN: Abdomen soft, non-tender, normo-active bowel sounds, no masses, no rebound or guarding. BACK: No CVA TTP. SKIN: No rashes and no bruising. UPPER EXTREMITIES: Upper extremities are grossly normal. LOWER EXTREMITIES: Grossly normal, no edema. Negative Homans' sign. NEURO EXAM: A&O x3, cranial nerves II-XII grossly intact, normal speech, moves all 4 extremities on command w/o issue. Differential diagnoses: Reactive airway disease, pneumonia, pneumothorax, COPD, CHF, infections, cardiac ischemia, pulmonary embolism, musculoskeletal, gastrointestinal, as well as other pathologies. Course: Patient was seen and evaluated the bedside. Full history physical exam was performed. EKG interpreted by me Sinus tachycardia, rate of 139, normal intervals, left axis deviation. Imaging Studies: See Below Cardiac monitoring: An order was placed for continuous cardiac monitoring. The monitor shows a rate of 121 with tachycardic and regular rhythm. MDM: Patient did have blood work completed along with an EKG troponin chest x-ray. I did review the patient's chest x-ray which showed likely right upper lobe pneumonia. The patient was ordered antibiotics blood cultures. Patient was ordered Xopenex given the patient's known history of CHF to avoid worsening tachycardia. I did speak the on-call hospitalist GENEVA Lee and the patient was to be admitted by Dr. Han. I did discuss the possibility of PE although I believe infectious etiology to be more likely. Troponin and BNP are not elevated. White count is normal. The patient is afebrile. CT angiography does not show evidence of PE. Past Med/Surg History Medical History Aneurysm of infrarenal abdominal aorta Anxiety BCC (basal cell carcinoma of skin) on left side of face---"s/p MOHS surgery" Chronic diastolic heart failure Chronic respiratory failure with hypoxia and hypercapnia Chronic respiratory failure with hypoxia, on home O2 therapy OXYGEN 3L/MIN VIA NC COPD (chronic obstructive pulmonary disease) Degenerative disc disease Dissection of left carotid artery Dyslipidemia Fibromyalgia GERD (gastroesophageal reflux disease) Gram-positive bacteremia Hypertension Obesity hypoventilation syndrome On home oxygen therapy 3L N/C at all times Osteoporosis Sinus tachycardia SOB (shortness of breath) on exertion Tremor of both hands Wrist fracture, left Surgical History History of bilateral cataract extraction History of carpal tunnel surgery of right wrist History of colonoscopy with polypectomy History of esophagogastroduodenoscopy (EGD) History of left breast biopsy benign History of mandibular surgery jaw fx History of repair of left rotator cuff History of repair of right rotator cuff History of tooth extraction S/P Mohs surgery for basal cell carcinoma Status post appendectomy Status post excision of lipoma removed off neck x2 Status post hysterectomy Status post repair of ventral hernia Family History Grandfather (Maternal) Family hx of colon cancer Father FH: kidney cancer Family/Other Family history of diabetes mellitus nephew Other Kidney disease Lung disease No family history of adverse response to anesthesia Social History Smoking Status: Former smoker Tobacco Type: Cigarettes Cigarettes Per Day: unsure when she quit; Smoking End Date: 2003; Second Hand Exposure: No; Do You Dip or Chew Tobacco: No; Tobacco Cessation Education Requested by Patient: No Hx Alcohol Use: No Hx Substance Use: No Preferred Language: [place] Communication Ability: Effective 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 Beliefs That Will Affect Care: None marital status: / Current Living Situation: Alone current occupational status: retired How many Children do You have: 3 Other Information That Helps Us Care for You: No Feels Safe at Home: Yes Safety Concerns: Feels Safe At This Time Assistive Devices: Cane, Denture - Upper, Glasses and Oxygen - Continuous Allergies Allergies Allergy/AdvReac Type Severity Reaction Status Date / Time duloxetine [From Cymbalta] Allergy Mild Rash Verified 08/29/21 10:26 naproxen AdvReac Mild GI SYMPTOMS Verified 08/29/21 10:26 Home Meds Home Medications Medication Instructions Recorded Confirmed atorvastatin 40 mg tablet (Lipitor) 40 mg PO QAM 12/14/18 08/29/21 losartan 25 mg tablet (Cozaar) 25 mg PO QAM 12/14/18 08/29/21 magnesium oxide 400 mg PO QAM 02/13/19 08/29/21 metoprolol succinate 50 mg 50 mg PO QAM 04/22/19 08/29/21 tablet,extended release 24 hr (Toprol XL) aspirin 81 mg tablet,delayed 81 mg PO QAM 01/19/21 08/29/21 release (Aspirin Low Dose) multivitamin with minerals-folic 2 tab PO QAM 03/04/21 08/29/21 acid 200 mcg chewable tablet (Multivitamin Gummies) ipratropium 0.5 mg-albuterol 3 mg 3 ml INHALATION Q4H PRN 03/22/21 08/29/21 (2.5 mg base)/3 mL nebulization soln budesonide-formoterol HFA 160 2 puff INH BID 05/27/21 08/29/21 mcg-4.5 mcg/actuation aerosol inhaler (Symbicort) ondansetron 4 mg disintegrating 4 mg TRANSLINGUAL Q6H PRN 05/27/21 08/29/21 tablet pantoprazole 40 mg tablet,delayed 40 mg PO QAM 05/27/21 08/29/21 release (Protonix) ropinirole 0.25 mg tablet 0.25 mg PO HS 05/27/21 08/29/21 docusate sodium 100 mg capsule 100 mg PO QAM 08/06/21 08/29/21 oxycodone 5 mg tablet 5 mg PO Q8H PRN 08/29/21 08/29/21 Previous Rx's Medication Instructions Recorded Oxygen Home #1 ea 11/05/19 roflumilast 250 mcg tablet 250 mcg PO QAM #90 tab 06/30/20 (Daliresp) albuterol sulfate 90 mcg/actuation 2 puff INHALATION QID PRN #8.5 g 05/05/21 aerosol inhaler (Ventolin HFA) ergocalciferol (vitamin D2) 1,250 50,000 unit PO Q7D@2100 #8 cap 07/08/21 mcg (50,000 unit) capsule diazepam 2 mg tablet 1 mg PO BID PRN #10 tab 08/17/21 hydrocodone 5 mg-acetaminophen 325 1 tab PO Q4H PRN #20 tab 08/17/21 mg tablet Results & Data (ED) Vital Signs Vital Signs - 24 hr 08/29/21 08:46 08/29/21 08:50 08/29/21 08:59 Temperature 37.3 C Temperature Source Oral Pulse Rate 142 H 138 H 137 H Pulse Rate [Apical] Pulse Rate from SpO2 Sensor 122 H 134 H Respiratory Rate 21 25 H 20 Respiratory Effort / Characteristics Non-Labored Respiratory Depth Normal Respiratory Pattern Blood Pressure 149/82 H Blood Pressure Mean 104 Pulse Oximetry 100 100 100 Oxygen Delivery Method Nasal Cannula Oxygen Flow Rate 2 Sepsis Recent Fever Within 48 Hours No Sepsis New/Unexplained Change in Mental Status N/A Sepsis Action Taken by Nursing No Action Required 08/29/21 09:00 08/29/21 09:10 08/29/21 09:20 Temperature Temperature Source Pulse Rate 137 H 135 H 137 H Pulse Rate [Apical] Pulse Rate from SpO2 Sensor 139 H 136 H 128 H Respiratory Rate 18 20 28 H Respiratory Effort / Characteristics Respiratory Depth Respiratory Pattern Blood Pressure Blood Pressure Mean Pulse Oximetry 100 99 98 Oxygen Delivery Method Oxygen Flow Rate Sepsis Recent Fever Within 48 Hours Sepsis New/Unexplained Change in Mental Status Sepsis Action Taken by Nursing 08/29/21 09:30 08/29/21 09:37 08/29/21 09:40 Temperature Temperature Source Pulse Rate 135 H 135 H Pulse Rate [Apical] 138 H Pulse Rate from SpO2 Sensor 136 H Respiratory Rate 24 23 Respiratory Effort / Characteristics Spontaneous Respiratory Depth Respiratory Pattern Blood Pressure 149/82 H Blood Pressure Mean 104 Pulse Oximetry 99 99 Oxygen Delivery Method Nasal Cannula Nasal Cannula Oxygen Flow Rate 2 2 Sepsis Recent Fever Within 48 Hours Sepsis New/Unexplained Change in Mental Status Sepsis Action Taken by Nursing 08/29/21 09:50 08/29/21 10:00 08/29/21 10:10 Temperature Temperature Source Pulse Rate 139 H 137 H 140 H Pulse Rate [Apical] Pulse Rate from SpO2 Sensor 134 H 137 H 141 H Respiratory Rate 20 22 23 Respiratory Effort / Characteristics Respiratory Depth Respiratory Pattern Blood Pressure 149/91 H Blood Pressure Mean 110 Pulse Oximetry 100 96 97 Oxygen Delivery Method Oxygen Flow Rate Sepsis Recent Fever Within 48 Hours Sepsis New/Unexplained Change in Mental Status Sepsis Action Taken by Nursing 08/29/21 10:14 08/29/21 10:20 08/29/21 10:30 Temperature Temperature Source Pulse Rate 133 H 136 H Pulse Rate [Apical] 136 H Pulse Rate from SpO2 Sensor 134 H 136 H Respiratory Rate 24 22 25 H Respiratory Effort / Characteristics Spontaneous Respiratory Depth Respiratory Pattern Blood Pressure 143/73 H Blood Pressure Mean 96 Pulse Oximetry 97 100 97 Oxygen Delivery Method Nasal Cannula Oxygen Flow Rate 2 Sepsis Recent Fever Within 48 Hours Sepsis New/Unexplained Change in Mental Status Sepsis Action Taken by Nursing 08/29/21 10:40 08/29/21 10:54 08/29/21 11:00 Temperature Temperature Source Pulse Rate 134 H 133 H Pulse Rate [Apical] Pulse Rate from SpO2 Sensor 126 H Respiratory Rate 23 29 H Respiratory Effort / Characteristics Spontaneous Respiratory Depth Normal Respiratory Pattern Regular Blood Pressure 132/94 Blood Pressure Mean 106 Pulse Oximetry 98 95 Oxygen Delivery Method Room Air Oxygen Flow Rate 2 2 Sepsis Recent Fever Within 48 Hours Sepsis New/Unexplained Change in Mental Status Sepsis Action Taken by Nursing 08/29/21 11:10 08/29/21 11:20 08/29/21 11:54 Temperature Temperature Source Pulse Rate 138 H 134 H 109 H Pulse Rate [Apical] Pulse Rate from SpO2 Sensor 136 H 135 H Respiratory Rate 20 21 21 Respiratory Effort / Characteristics Respiratory Depth Respiratory Pattern Blood Pressure Blood Pressure Mean Pulse Oximetry 94 94 95 Oxygen Delivery Method Nasal Cannula Oxygen Flow Rate 3 Sepsis Recent Fever Within 48 Hours Sepsis New/Unexplained Change in Mental Status Sepsis Action Taken by Long Term Medications Current Medication List: was personally reviewed by me Laboratory Data Attestation: I reviewed the patient's lab results. Result diagrams: 08/29/21 09:31 08/29/21 09:31 Lab Results 08/29/21 08/29/21 08/29/21 Range/Units 09:30 09:30 09:31 WBC 6.36 (4.8-10.8) K/uL RBC 3.98 L (4.2-5.4) M/uL Hgb 10.6 L (12.0-16.0) g/dL Hct 36.7 L (37-47) % MCV 92.2 (80-100) fL MCH 26.6 (25-34) pg MCHC 28.9 L (32-36) g/dL RDW Std Deviation 45.7 (36.4-46.3) fL RDW Coeff of Reg 13.4 (11.5-14.5) % Plt Count 281 (130-400) K/uL MPV 10.2 (7.4-10.4) fL Immature Gran % (Auto) 0.2 % Neut % (Auto) 74.4 % Lymph % (Auto) 8.8 % [place] % (Auto) 11.3 % Eos % (Auto) 5.0 % Baso % (Auto) 0.3 % Neut # (Auto) 4.73 (1.4-6.5) K/uL Lymph # (Auto) 0.56 L (1.2-3.4) K/uL [place] # (Auto) 0.72 H (0.11-0.59) K/uL Eos # (Auto) 0.32 (0-0.5) K/uL Baso # (Auto) 0.02 (0-0.2) K/uL Immature Gran # (Auto) 0.01 (0.00-0.02) K/uL PT (9.0-12.0) Seconds INR (0.9-1.1) APTT (21.0-31.0) Seconds PTT Ratio VBG pH (7.36-7.41) VBG pCO2 (38-50) mmHg VBG pO2 mmHg VBG HCO3 mmol/L VBG O2 Saturation % VBG Base Excess mEq/L Barometric Pressure mm/Hg Sodium (136-145) mmol/L Potassium (3.5-5.1) mmol/L Chloride (98-107) mmol/L Carbon Dioxide (21-32) mmol/L Anion Gap (3-11) BUN (7-18) mg/dl Creatinine (0.6-1.2) mg/dl Est Cr Clr Drug Dosing ml/min Est GFR ( Amer) ml/min Est GFR (Non-Af Amer) ml/min BUN/Creatinine Ratio (10-20) Glucose (70-99) mg/dl Calcium (8.5-10.1) mg/dl Magnesium (1.8-2.4) mg/dl Total Bilirubin (0.2-1) mg/dl AST (15-37) U/L ALT (12-78) U/L Alkaline Phosphatase (45-117) U/L Troponin I (0-0.045) ng/ml NT-Pro-B Natriuret Pep (0-1800) pg/ml Total Protein (6.4-8.2) gm/dl Albumin (3.4-5.0) gm/dl Globulin (2.5-4.0) gm/dl Albumin/Globulin Ratio (0.9-2) COVID-19 Eval Order Covid19 at [facility] SARS-CoV-2 (PCR) NEGATIVE (Negative) 08/29/21 08/29/21 08/29/21 Range/Units 09:31 09:31 09:31 WBC (4.8-10.8) K/uL RBC (4.2-5.4) M/uL Hgb (12.0-16.0) g/dL Hct (37-47) % MCV (80-100) fL MCH (25-34) pg MCHC (32-36) g/dL RDW Std Deviation (36.4-46.3) fL RDW Coeff of Reg (11.5-14.5) % Plt Count (130-400) K/uL MPV (7.4-10.4) fL Immature Gran % (Auto) % Neut % (Auto) % Lymph % (Auto) % [place] % (Auto) % Eos % (Auto) % Baso % (Auto) % Neut # (Auto) (1.4-6.5) K/uL Lymph # (Auto) (1.2-3.4) K/uL [place] # (Auto) (0.11-0.59) K/uL Eos # (Auto) (0-0.5) K/uL Baso # (Auto) (0-0.2) K/uL Immature Gran # (Auto) (0.00-0.02) K/uL PT 11.3 (9.0-12.0) Seconds INR 1.1 (0.9-1.1) APTT 24.4 (21.0-31.0) Seconds PTT Ratio 0.9 VBG pH 7.31 L (7.36-7.41) VBG pCO2 100 H (38-50) mmHg VBG pO2 33 mmHg VBG HCO3 49 mmol/L VBG O2 Saturation < 60.0 % VBG Base Excess 18.5 mEq/L Barometric Pressure 728.6 mm/Hg Sodium 138 (136-145) mmol/L Potassium 4.2 (3.5-5.1) mmol/L Chloride 91 L (98-107) mmol/L Carbon Dioxide (21-32) mmol/L Anion Gap 42 H (3-11) BUN 16 (7-18) mg/dl Creatinine 0.58 L (0.6-1.2) mg/dl Est Cr Clr Drug Dosing 69.6 ml/min Est GFR ( Amer) 102.3 ml/min Est GFR (Non-Af Amer) 88.3 ml/min BUN/Creatinine Ratio 27.8 H (10-20) Glucose 119 H (70-99) mg/dl Calcium 9.7 (8.5-10.1) mg/dl Magnesium 2.1 (1.8-2.4) mg/dl Total Bilirubin 0.5 (0.2-1) mg/dl AST 13 L (15-37) U/L ALT 12 (12-78) U/L Alkaline Phosphatase 121 H (45-117) U/L Troponin I < 0.015 (0-0.045) ng/ml NT-Pro-B Natriuret Pep 186 (0-1800) pg/ml Total Protein 7.4 (6.4-8.2) gm/dl Albumin 2.9 L (3.4-5.0) gm/dl Globulin 4.5 H (2.5-4.0) gm/dl Albumin/Globulin Ratio 0.6 L (0.9-2) COVID-19 Eval Order SARS-CoV-2 (PCR) (Negative) Administered Medications Discontinued Medications Cefepime HCl (Cefepime 2,000 Mg/20 Ml Vial) Confirm Administered Dose 2,000 mg .ROUTE .STK-MED ONE Stop: 08/29/21 12:20 Last Admin: 08/29/21 12:28 Dose: Not Given Documented by: [id number] Doxycycline Hyclate (Doxycycline Hyclate 100 Mg Cap) 100 mg PO NOW STA Stop: 08/29/21 09:51 Last Admin: 08/29/21 12:23 Dose: 100 mg Documented by: [id number] Doxycycline Hyclate (Doxycycline Hyclate 100 Mg Cap) Confirm Administered Dose 100 mg PO .STK-MED ONE Stop: 08/29/21 12:20 Last Admin: 08/29/21 12:28 Dose: Not Given Documented by: [id number] Sodium Chloride (Nss 1000ml) 500 mls @ 999 mls/hr IV .Q31M ONE Stop: 08/29/21 10:19 Last Infusion: 08/29/21 11:01 Dose: 0 mls/hr Documented by: [id number] Admin: 08/29/21 10:19 Dose: 999 mls/hr Documented by: [id number] Cefepime HCl (Maxipime) 2,000 mg in 20 mls @ 5 mls/min IV NOW STA; Protocol Stop: 08/29/21 09:53 Last Admin: 08/29/21 12:23 Dose: 5 mls/min Documented by: [id number] Ioversol (Optiray 320 125ml) 117 ml IV ONCE ONE Stop: 08/29/21 11:50 Last Admin: 08/29/21 11:50 Dose: 117 ml Documented by: [id number] Levalbuterol HCl (Levalbuterol Hcl 1.25 Mg/3 Ml Neb) 1.25 mg NEB NOW STA Stop: 08/29/21 09:03 Last Admin: 08/29/21 09:40 Dose: 1.25 mg Documented by: [id number] Levalbuterol HCl (Levalbuterol Hcl 1.25 Mg/3 Ml Neb) 2.5 mg NEB NOW STA Stop: 08/29/21 09:50 Last Admin: 08/29/21 10:13 Dose: 2.5 mg Documented by: [id number] Methylprednisolone (Methylprednisolone 125 Mg/2 Ml Vial) 40 mg IV NOW STA Stop: 08/29/21 09:50 Last Admin: 08/29/21 10:18 Dose: 40 mg Documented by: [id number] Metoprolol Tartrate (Metoprolol Tartrate 1 Mg/Ml Vial) 5 mg IV NOW STA Stop: 08/29/21 12:18 Last Admin: 08/29/21 12:23 Dose: 5 mg Documented by: [id number] Imaging Data Radiologist's Impression: Chest X-Ray 08/29/21 09:02 XR chest 1V portable CLINICAL HISTORY: Dyspnea TECHNIQUE: Single frontal radiograph of the chest was obtained. Comparison: Comparison is made to chest one view 04/05/2021 FINDINGS: No lines and tubes are seen. The aorta is tortuous. The remainder of the cardiomediastinal silhouette is unremarkable. Right upper lung airspace opacity is seen. No evidence of pleural effusion or pneumothorax. IMPRESSION: Right upper lung airspace opacity which may represent atelectasis, pneumonia, and/or aspiration. ACT 112: Negative or not required by law. Electronically signed by: Nikita Mcgill M.D. 08/29/2021 10:07 AM Chest CTA 08/29/21 10:53 CT angio chest PE protocol CLINICAL HISTORY: Dyspnea, tachycardia TECHNIQUE: Multidetector row helical CT of the chest was performed. Coronal and sagittal reformations were obtained. Automated dose lowering techniques and/or adjustment according to patient size were utilized for this exam. Comparison: Comparison is made to CT chest 06/30/2021 FINDINGS: Lungs and pleura: Multifocal airspace opacities are seen most prominent in the bilateral upper lobes. Atelectasis versus scarring is in the lung bases. Heart and pericardium: Cardiomegaly is seen with biatrial enlargement. There is suggestion of lipomatous thickening of the interatrial septum. Vessels: The pulmonary trunk is enlarged measuring 32 mm in diameter. No evidence of pulmonary embolism. Moderate atherosclerotic changes are seen in the coronary arteries and aorta. Mediastinum and rebel: Unremarkable. Chest wall and lower neck: Unremarkable. Abdomen: Unremarkable. Bones: Vertebral plana of T7 is unchanged. Compression deformity of T12 is new from prior exam and there is some retropulsion of fragments. IMPRESSION: 1. No evidence of pulmonary embolism. Pulmonary hypertension is noted with cardiomegaly. 2. Multiple consolidative opacities most prominent in the upper lungs which may represent aspiration and/or pneumonia. 3. Acute to subacute compression fracture of T12 with mild retropulsion. 4. Additional findings as above. ACT 112: Negative or not required by law. Electronically signed by: Nikita Mcgill M.D. 08/29/2021 12:05 PM Discharge Plan Visit Data Chief Complaint: Shortness of Breath/Dyspnea ED Provider: Thien Murcia Discharge Problem: Chronic respiratory failure with hypoxia and hypercapnia, COPD (chronic obstructive pulmonary disease), Tachycardia, Pneumonia Patient Disposition: Admitted As Inpatient Discharge Instructions Interventions: ED Discharge Assessment Last Done: 08/29/21 14:10
[2021-08-29] MEDS ORDERED: LEVALBUTEROL HCL 1.25 MG/3 ML NEB NEB STA ×2 (09:02→09:49)
[2021-08-29] MEDS ORDERED: methylPREDNISolone 125 MG/2 ML VIAL IV STA (09:49)
[2021-08-29] MEDS ORDERED: SODIUM CHLORIDE 0.9% 1000ML 500 ML IV ONE (09:49)
[2021-08-29] MEDS ORDERED: CEFEPIME 2,000 MG/20 ML VIAL IV STA (09:50)
[2021-08-29] MEDS ORDERED: DOXYCYCLINE HYCLATE 100 MG CAP PO STA (09:50)
[2021-08-29 09:51] LABS: Base Excess VBG 18.5 mEq/L; HCO3 VBG 49 mmol/L; PCO2 VBG 100 mmHg (38-50); PO2 VBG 33 mmHg; pH VBG 7.31 (7.36-7.41)
[2021-08-29 09:54] LABS: Oxygen Saturation VBG < 60.0 %
[2021-08-29 10:02] LABS: INR 1.1 (0.9-1.1); Partial Thromboplastin Ratio 0.9; Partial Thromboplastin Time 24.4 Seconds (21.0-31.0); Prothrombin Time 11.3 Seconds (9.0-12.0)
--- NOTE | 2021-08-29 10:08 | XRay Report ---
XR chest 1V portable CLINICAL HISTORY: Dyspnea TECHNIQUE: Single frontal radiograph of the chest was obtained. Comparison: Comparison is made to chest one view 04/05/2021 FINDINGS: No lines and tubes are seen. The aorta is tortuous. The remainder of the cardiomediastinal silhouette is unremarkable. Right upper lung airspace opacity is seen. No evidence of pleural effusion or pneum othorax. IMPRESSION: Right upper lung airspace opacity which may represent atelectasis, pneumonia, and/or aspiration. ACT 112: Negative or not required by law. Electronically signed by: Nikita Mcgill M.D. 08/29/2021 10:07 AM
[2021-08-29 10:13] LABS: Alanine Aminotransferase 12 U/L (12-78); Albumin Globulin Ratio 0.6 (0.9-2); Albumin Level 2.9 gm/dl (3.4-5.0); Alkaline Phosphatase 121 U/L (45-117); Bilirubin,Total 0.5 mg/dl (0.2-1); Blood Urea Nitrogen 16 mg/dl (7-18); Calcium 9.7 mg/dl (8.5-10.1); Chloride 91 mmol/L (98-107); Creatinine Clr Calc Pharmacy 69.6 ml/min; Est GFR (African American) 102.3 ml/min; Est GFR (Non-African American) 88.3 ml/min; Globulin 4.5 gm/dl (2.5-4.0); Glucose 119 mg/dl (70-99); NT Pro B Type Natriuretic Pept 186 pg/ml (0-1800); Total Protein 7.4 gm/dl (6.4-8.2); Troponin I < 0.015 ng/ml (0-0.045)
[2021-08-29 10:16] LABS: BUN Creatinine Ratio 27.8 (10-20)
[2021-08-29 10:20] LABS: Anion Gap 42 (3-11); Basophils # (auto) 0.02 K/uL (0-0.2); Basophils % (auto) 0.3 %; Eosinophils # (auto) 0.32 K/uL (0-0.5); Hematocrit (blood only) 36.7 % (37-47); Hemoglobin 10.6 g/dL (12.0-16.0); Immature Granulocytes # (auto) 0.01 K/uL (0.00-0.02); Immature Granulocytes % (auto) 0.2 %; Lymphocytes # (auto) 0.56 K/uL (1.2-3.4); Lymphocytes % (auto) 8.8 %; Mean Corpuscular Hemoglobin 26.6 pg (25-34); Mean Corpuscular Hgb Conc 28.9 g/dL (32-36); Mean Corpuscular Volume 92.2 fL (80-100); Mean Platelet Volume 10.2 fL (7.4-10.4); Monocytes # (auto) 0.72 K/uL (0.11-0.59); Monocytes % (auto) 11.3 %; Neutrophils # (auto) 4.73 K/uL (1.4-6.5); Neutrophils % (auto) 74.4 %; Platelet Count 281 K/uL (130-400); RDW Coefficient of Variation 13.4 % (11.5-14.5); RDW Standard Deviation 45.7 fL (36.4-46.3); Red Blood Count 3.98 M/uL (4.2-5.4); White Blood Count 6.36 K/uL (4.8-10.8)
[2021-08-29 10:32] LABS: Potassium 4.2 mmol/L (3.5-5.1); Sodium 138 mmol/L (136-145)
[2021-08-29 10:38] LABS: Aspartate Aminotransferase 13 U/L (15-37); Magnesium 2.1 mg/dl (1.8-2.4)
[2021-08-29] MEDS ORDERED: OPTIRAY 320 125ml IV ONE (11:49)
--- NOTE | 2021-08-29 12:06 | CT Scan Report ---
CT angio chest PE protocol CLINICAL HISTORY: Dyspnea, tachycardia TECHNIQUE: Multidetector row helical CT of the chest was performed. Coronal and sagittal reformations were obtained. Automated dose lowering techniques and/or adjustment according to patient size were u tilized for this exam. Comparison: Comparison is made to CT chest 06/30/2021 FINDINGS: Lungs and pleura: Multifocal airspace opacities are seen most prominent in the bilateral upper lobes. Atelectasis versus scarring is in the lung bases. Heart and pericardium: Cardiomegaly is seen with biatrial enlargement. There is suggestion of lipomat ous thickening of the interatrial septum. Vessels: The pulmonary trunk is enlarged measuring 32 mm in diameter. No evidence of pulmonary emboli sm. Moderate atherosclerotic changes are seen in the coronary arteries and aorta. Mediastinum and rebel: Unremarkable. Chest wall and lower neck: Unremarkable. Abdomen: Unremarkable. Bones: Vertebral plana of T7 is unchanged. Compression deformity of T12 is new from prior exam and th ere is some retropulsion of fragments. IMPRESSION: 1. No evidence of pulmonary embolism. Pulmonary hypertension is noted with cardiomegaly. 2. Multiple consolidative opacities most prominent in the upper lungs which may represent aspiration and/or pneumonia. 3. Acute to subacute compression fracture of T12 with mild retropulsion. 4. Additional findings as above. ACT 112: Negative or not required by law. Electronically signed by: Nikita Mcgill M.D. 08/29/2021 12:05 PM
[2021-08-29] MEDS ORDERED: METOPROLOL TARTRATE 1 MG/ML VIAL IV STA (12:17)
[2021-08-29] MEDS ORDERED: DOXYCYCLINE HYCLATE 100 MG CAP PO ONE (12:19)
[2021-08-29] MEDS ORDERED: CEFEPIME 2,000 MG/20 ML VIAL ONE (12:19)
[2021-08-29] MEDS ORDERED: ALBUT/IPRATROP 3MG/0.5MG NEB 3 ML VIAL NEB PRN (14:45)
[2021-08-29] MEDS ORDERED: PIPERACILL/TAZOBAC CONSULT ACTIVE PRN (14:45)
[2021-08-29] MEDS ORDERED: PIPERACILLIN/TAZOBACTAM 3.375 GM in DEXTROSE 5% 100 ML IV ONE (15:15)
[2021-08-29 15:30] LABS: Appearance Urine Clear (Clear); Bacteria Urine Automated Negative (Negative); Bilirubin Urine Negative (Negative); Blood Urine Negative (Negative); Color Urine Yellow; Epithelial Cell Urine Auto >30 /lpf (0-5); Glucose Urine UA Negative (Negative); Ketones Urine 1+ (Negative); Leukocyte Esterase Urine Negative (Negative); Nitrite Urine Negative (Negative); RBC Urine Automated 0-4 /hpf (0-4); Specific Gravity Urine > 1.045 (1.000-1.030); Urobilinogen Urine Negative (Negative); pH Urine 7.5 (4.5-7.5)
[2021-08-29 15:45] LABS: Protein Urine Trace (Negative)
[2021-08-29] MEDS: ENOXAPARIN INJ 40 MG/0.4 ML SYR SQ SCH (16:11)
[2021-08-29] MEDS: traMADol HCL 50 MG TABLET PO PRN (16:32)
--- NOTE | 2021-08-29 16:32 | Electrocardiogram Report ---
Test Reason : Blood Pressure : / mmHG Vent. Rate : 139 BPM Atrial Rate : 139 BPM P-R Int : 126 ms QRS Dur : 070 ms QT Int : 298 ms P-R-T Axes : 063 -12 076 degrees QTc Int : 453 ms Sinus tachycardia with Premature atrial complexes Otherwise normal ECG When compared with ECG of 27-MAY-2021 08:02, Premature atrial complexes are now Present Vent. rate has increased BY 62 BPM Confirmed by Lucas Morrow ([id number]) on 08/29/2021 4:32:19 PM Referred By: REFERRED SELF Confirmed By:Lucas Morrow
[2021-08-29] MEDS: METOPROLOL SUCC 50MG EXT REL TAB PO SCH (16:33)
[2021-08-29] MEDS ORDERED: VANCOMYCIN CONSULT ACTIVE PRN (16:57)
--- NOTE | 2021-08-29 17:40 | History & Physical Report ---
Date of Service August 29, 2021 Assessment & Plan (1) Pneumonia: (2) Chronic respiratory failure with hypoxia and hypercapnia: (3) COPD (chronic obstructive pulmonary disease): Plan: -Admit to telemetry -Patient presenting from home with reports of worsening shortness of breath. -In the ED, patient is saturating well on her chronic 2 L of oxygen however VBG showed pH 7.31 and PCO2 100, therefore patient was placed on BiPAP briefly. -CTA chest negative for pulmonary embolism however shows Multiple consolidative opacities most prominent in the upper lungs which may represent aspiration and/or pneumonia -Patient is tachycardic (has history of chronic sinus tachycardia), however afebrile and no leukocytosis. Does not appear septic -Given history of recent hospitalization, will cover patient with IV Zosyn and vancomycin. Noted positive MRSA nasal swab. -S/p Solu-Medrol 40 mg IV in the ED, continue prednisone 40 mg daily -Continue routine home COPD medications and inhalers, nebs -Follow blood cultures (4) Tachycardia: Plan: -History of chronic sinus tachycardia -Rate typically controlled on metoprolol succinate 50 mg daily -Heart rate likely exacerbated by pneumonia, hypoxia -HR improved metoprolol 5 mg IV x 1 dose, resume home p.o. dose -Monitor on telemetry (5) T12 compression fracture: Plan: -Recently admitted for such -Patient reports worsening in tremors since tramadol was discontinued in favor of hydrocodone and oxycodone. -Will discontinue hydrocodone and oxycodone and resume as needed tramadol (6) Chronic combined systolic and diastolic CHF (congestive heart failure): Plan: -Appears euvolemic, does not take routine diuretics -Echo 02/2021-EF 40 to 45%, grade 1 diastolic dysfunction -History of tachycardic versus ischemic cardiomyopathy -Monitor volume status closely (7) Hypertension: Plan: -BP controlled, continue losartan and metoprolol (8) DVT prophylaxis: Plan: -SQ Lovenox (9) Discharge planning issues: Plan: -[facility] Home Health has placed phone calls to [facility] and [facility] for possible rehab placement. Case management, PT/OT eval was ordered. Admission and Anticipated Discharge Date Admission Date: August 29, 2021 History of Present Illness Chief Complaint: Shortness of breath Primary Care Provider: Paige Bartholomew MD 76-year-old female with PMH COPD, chronic hypoxic respiratory failure on 3 L of oxygen, HTN, chronic diastolic CHF, infrarenal AAA, carotid artery dissection, HTN, sinus tachycardia, GERD, fibromyalgia, chronic pain, and other problems listed below who presents the ED for evaluation of shortness of breath. Patient recently admitted to [facility] 08/07 through 08/17 for management of acute back pain due to acute to subacute T12 compression fracture. Nonoperative management recommended. Patient discharged on as needed diazepam and hydrocodone/acetaminophen. Patient reports she has overall been doing well. Reports that she has been working with [facility] for possible rehab placement. I discussed with [facility] and they report that phone calls were made to [facility] and [facility]. Patient reports that she was concerned that her oxygen was not working last evening so she called her neighbor who is an EMT to come check on it. Reports that no issues were found. Patient states that whenever she woke up this morning, she felt very short of breath. EMS was called and patient was brought to the ED for further evaluation. Per report, patient was hypoxic on her usual 3 L of oxygen. Patient denies cough or sputum production. No fevers or chills. Denies chest pain. No lightheadedness, dizziness, diaphoresis, syncopal events. Denies abdominal pain, nausea, vomiting, diarrhea. No urinary symptoms. In the ED, patient is saturating well on her usual 3 L of oxygen however VBG showed pH 7.31 and PCO2 100. Patient was placed on BiPAP. CTA chest negative for PE however shows Multiple consolidative opacities most prominent in the upper lungs which may represent aspiration and/or pneumonia. Patient was given IV cefepime, p.o. doxycycline, nebulizer treatment, IV Solu-Medrol 40 mg, IVF. Allergies Allergy/AdvReac Type Severity Reaction Status Date / Time duloxetine [From Cymbalta] Allergy Mild Rash Verified 08/29/21 10:26 naproxen AdvReac Mild GI SYMPTOMS Verified 08/29/21 10:26 Home Medications Medication Instructions Recorded Confirmed Type atorvastatin 40 mg tablet (Lipitor) 40 mg PO QAM 12/14/18 08/29/21 History losartan 25 mg tablet (Cozaar) 25 mg PO QAM 12/14/18 08/29/21 History magnesium oxide 400 mg PO QAM 02/13/19 08/29/21 History metoprolol succinate 50 mg 50 mg PO QAM 04/22/19 08/29/21 History tablet,extended release 24 hr (Toprol XL) Oxygen Home #1 ea 11/05/19 08/29/21 Rx roflumilast 250 mcg tablet 250 mcg PO QAM #90 tab 06/30/20 08/29/21 Rx (Daliresp) aspirin 81 mg tablet,delayed 81 mg PO QAM 01/19/21 08/29/21 History release (Aspirin Low Dose) multivitamin with minerals-folic 2 tab PO QAM 03/04/21 08/29/21 History acid 200 mcg chewable tablet (Multivitamin Gummies) ipratropium 0.5 mg-albuterol 3 mg 3 ml INHALATION Q4H PRN 03/22/21 08/29/21 History (2.5 mg base)/3 mL nebulization soln albuterol sulfate 90 mcg/actuation 2 puff INHALATION QID PRN #8.5 g 05/05/21 08/29/21 Rx aerosol inhaler (Ventolin HFA) budesonide-formoterol HFA 160 2 puff INH BID 05/27/21 08/29/21 History mcg-4.5 mcg/actuation aerosol inhaler (Symbicort) ondansetron 4 mg disintegrating 4 mg TRANSLINGUAL Q6H PRN 05/27/21 08/29/21 History tablet pantoprazole 40 mg tablet,delayed 40 mg PO QAM 05/27/21 08/29/21 History release (Protonix) ropinirole 0.25 mg tablet 0.25 mg PO HS 05/27/21 08/29/21 History ergocalciferol (vitamin D2) 1,250 50,000 unit PO Q7D@2100 #8 cap 07/08/21 08/29/21 Rx mcg (50,000 unit) capsule docusate sodium 100 mg capsule 100 mg PO QAM 08/06/21 08/29/21 History diazepam 2 mg tablet 1 mg PO BID PRN #10 tab 08/17/21 08/29/21 Rx hydrocodone 5 mg-acetaminophen 325 1 tab PO Q4H PRN #20 tab 08/17/21 08/29/21 Rx mg tablet oxycodone 5 mg tablet 5 mg PO Q8H PRN 08/29/21 08/29/21 History Past Med/Surg History Medical History (Updated 08/29/21 @ 17:48 by GENEVA Kaye) Aneurysm of infrarenal abdominal aorta Anxiety BCC (basal cell carcinoma of skin) on left side of face---"s/p MOHS surgery" Chronic combined systolic and diastolic CHF (congestive heart failure) Chronic diastolic heart failure Chronic respiratory failure with hypoxia and hypercapnia Chronic respiratory failure with hypoxia, on home O2 therapy OXYGEN 3L/MIN VIA NC COPD (chronic obstructive pulmonary disease) Degenerative disc disease Dissection of left carotid artery Dyslipidemia Fibromyalgia GERD (gastroesophageal reflux disease) Gram-positive bacteremia Hypertension Obesity hypoventilation syndrome On home oxygen therapy 3L N/C at all times Osteoporosis Sinus tachycardia SOB (shortness of breath) on exertion Tremor of both hands Wrist fracture, left Surgical History History of bilateral cataract extraction History of carpal tunnel surgery of right wrist History of colonoscopy with polypectomy History of esophagogastroduodenoscopy (EGD) History of left breast biopsy benign History of mandibular surgery jaw fx History of repair of left rotator cuff History of repair of right rotator cuff History of tooth extraction S/P Mohs surgery for basal cell carcinoma Status post appendectomy Status post excision of lipoma removed off neck x2 Status post hysterectomy Status post repair of ventral hernia Family History Grandfather (Maternal) Family hx of colon cancer Father FH: kidney cancer Family/Other Family history of diabetes mellitus nephew Other Kidney disease Lung disease No family history of adverse response to anesthesia Social History Smoking Status: Former smoker Tobacco Type: Cigarettes Cigarettes Per Day: unsure when she quit; Smoking End Date: 2003; Second Hand Exposure: No; Do You Dip or Chew Tobacco: No; Tobacco Cessation Education Requested by Patient: No Hx Alcohol Use: No Hx Substance Use: No Preferred Language: Algerian Communication Ability: Effective Library Consultant Required: No Beliefs That Will Affect Care: None marital status: / Current Living Situation: Alone current occupational status: retired How many Children do You have: 3 Other Information That Helps Us Care for You: No Feels Safe at Home: Yes Safety Concerns: Feels Safe At This Time Assistive Devices: Cane, Denture - Upper, Glasses and Oxygen - Continuous Review of Systems Review of Systems: ROS per HPI, all other systems reviewed and negative Physical Exam Constitutional: WD/WN, vitals as above + ill appearing (Chronically); no acute distress Eyes: PERRL, conjunctivae normal, anicteric sclerae ENMT: external ear and nose normal, oropharynx normal Respiratory: no respiratory distress and no labored breathing Auscultation: + diminished lung sounds On BiPAP Cardiovascular: Rate/Rhythm: regular rhythm and + tachycardic Vessels: normal peripheral pulses Extremities: no edema Gastrointestinal (Abdomen): normal bowel sounds, soft, nontender, no hepatosplenomegaly Musculoskeletal: no cyanosis or clubbing, extremities motor strength 5/5 Skin: no rashes, warm and dry Neurologic: PERRL, EOMI, accommodation nl, no face palsy, no dysarthria Psychiatric: A+Ox3, euthymic affect Results & Data Results & Data ([facility]) Vital Signs (Past 12 Hours) Vital Signs Temp Pulse Pulse Resp BP BP Pulse Ox 08/29/21 15:07 156/94 H 08/29/21 14:47 36.9 C 131 H 22 92 08/29/21 12:30 115 H 23 95 08/29/21 12:20 128 H 30 H 97 08/29/21 12:10 132 H 26 H 94 08/29/21 12:00 132 H 20 94 08/29/21 11:54 109 H 21 95 08/29/21 11:20 134 H 21 94 08/29/21 11:10 138 H 20 94 08/29/21 11:00 133 H 29 H 132/94 95 08/29/21 10:54 134 H 23 98 08/29/21 10:30 136 H 25 H 143/73 H 97 08/29/21 10:20 133 H 22 100 08/29/21 10:14 136 H 24 97 08/29/21 10:10 140 H 23 97 08/29/21 10:00 137 H 22 149/91 H 96 08/29/21 09:50 139 H 20 100 08/29/21 09:40 135 H 138 H 23 149/82 H 99 08/29/21 09:37 99 08/29/21 09:30 135 H 24 08/29/21 09:20 137 H 28 H 98 08/29/21 09:10 135 H 20 99 08/29/21 09:00 137 H 18 100 08/29/21 08:59 37.3 C 137 H 20 149/82 H 100 08/29/21 08:50 138 H 25 H 100 08/29/21 08:46 142 H 21 100 Laboratory Results Short CBC 08/29/21 Range/Units 09:31 WBC 6.36 (4.8-10.8) K/uL Hgb 10.6 L (12.0-16.0) g/dL Hct 36.7 L (37-47) % Plt Count 281 (130-400) K/uL BMP 08/29/21 09:31 Sodium 138 Potassium 4.2 Chloride 91 L Carbon Dioxide BUN 16 Creatinine 0.58 L Glucose 119 H Calcium 9.7 Cardiac Enzymes 08/29/21 Range/Units 09:31 Troponin I < 0.015 (0-0.045) ng/ml Liver Function 08/29/21 Range/Units 09:31 Total Bilirubin 0.5 (0.2-1) mg/dl AST 13 L (15-37) U/L ALT 12 (12-78) U/L Alkaline Phosphatase 121 H (45-117) U/L Albumin 2.9 L (3.4-5.0) gm/dl Urine 08/29/21 Range/Units 15:15 Urine Color Yellow Urine Appearance Clear (Clear) Urine pH 7.5 (4.5-7.5) Ur Specific Mcallister > 1.045 H (1.000-1.030) Urine Protein Trace H (Negative) Urine Glucose (UA) Negative (Negative) Diagnostic Findings Chest X-Ray 08/29/21 09:02 XR chest 1V portable CLINICAL HISTORY: Dyspnea TECHNIQUE: Single frontal radiograph of the chest was obtained. Comparison: Comparison is made to chest one view 04/05/2021 FINDINGS: No lines and tubes are seen. The aorta is tortuous. The remainder of the cardiomediastinal silhouette is unremarkable. Right upper lung airspace opacity is seen. No evidence of pleural effusion or pneumothorax. IMPRESSION: Right upper lung airspace opacity which may represent atelectasis, pneumonia, and/or aspiration. ACT 112: Negative or not required by law. Electronically signed by: Nikita Mcgill M.D. 08/29/2021 10:07 AM Chest CTA 08/29/21 10:53 CT angio chest PE protocol CLINICAL HISTORY: Dyspnea, tachycardia TECHNIQUE: Multidetector row helical CT of the chest was performed. Coronal and sagittal reformations were obtained. Automated dose lowering techniques and/or adjustment according to patient size were utilized for this exam. Comparison: Comparison is made to CT chest 06/30/2021 FINDINGS: Lungs and pleura: Multifocal airspace opacities are seen most prominent in the bilateral upper lobes. Atelectasis versus scarring is in the lung bases. Heart and pericardium: Cardiomegaly is seen with biatrial enlargement. There is suggestion of lipomatous thickening of the interatrial septum. Vessels: The pulmonary trunk is enlarged measuring 32 mm in diameter. No evidence of pulmonary embolism. Moderate atherosclerotic changes are seen in the coronary arteries and aorta. Mediastinum and rebel: Unremarkable. Chest wall and lower neck: Unremarkable. Abdomen: Unremarkable. Bones: Vertebral plana of T7 is unchanged. Compression deformity of T12 is new from prior exam and there is some retropulsion of fragments. IMPRESSION: 1. No evidence of pulmonary embolism. Pulmonary hypertension is noted with cardiomegaly. 2. Multiple consolidative opacities most prominent in the upper lungs which may represent aspiration and/or pneumonia. 3. Acute to subacute compression fracture of T12 with mild retropulsion. 4. Additional findings as above. ACT 112: Negative or not required by law. Electronically signed by: Nikita Mcgill M.D. 08/29/2021 12:05 PM Code Status & VTE Plan Code Status Patient is a full code as per my discussion with her. VTE Prophylaxis Plan VTE Prophylaxis will be ordered: Yes Supervising Physician Co-Signing Physician Notes Attending Addendum: care coordinated with GENEVA Rust please refer to her notes for full details, I agree with her notes patient seen and examined, records reviewed by myself as well on exam, patient seen resting in bed, comfortable on 2 L NC states she feels improved compared to admission no active dyspnea on my exam has intermittent dry cough back pain mild-moderate no other symptoms VS noted and reviewed oriented x 3, not in distress, speaks in sentences with no effort nor accessory muscle use normal rate, regular rhythm, no murmurs (+) mild wheezing BL non distended, soft, nontender no bipedal edema, erythema, warmth no neuro deficits WBC 6.3 [address] chest: no PE, BL upper lobe infiltrates ASSESSMENT AND PLAN ACUTE RESPIRATORY FAILURE, HYPOXIC, HYPERCARBIC COPD EXACERBATION B/L PNEUMONIA weaned off Bipap now on 2 L NC- baseline Prednisone Vanco + Zosyn for possible HCAP Nebs other diagnoses and plan of care as per GENEVA Rust's notes Ganesh Han MD (1) COPD (chronic obstructive pulmonary disease) COPD type: unspecified COPD Qualified Code(s): J44.9 - Chronic obstructive pulmonary disease, unspecified (2) Hypertension Hypertension type: unspecified Qualified Code(s): I10 - Essential (primary) hypertension (3) Pneumonia Laterality: right Lung location: upper lobe of lung Pneumonia type: due to unspecified organism Qualified Code(s): J18.9 - Pneumonia, unspecified organism
[2021-08-29] MEDS ORDERED: VANCOMYCIN HCL 1,500 MG in SODIUM CHLORIDE 0.9% 500 ML IV ONE (18:00)
[2021-08-29] MEDS: PIPERACILLIN/TAZOBACTAM 3.375 GM in DEXTROSE 5% 100 ML IV SCH (21:35)
[2021-08-29] MEDS: MUPIROCIN 2% OINT 22 GM TUBE EXT SCH (21:35)
[2021-08-29] MEDS: rOPINIRole HCL 0.25 MG TABLET PO SCH (21:36)
[2021-08-30] MEDS: PIPERACILLIN/TAZOBACTAM 3.375 GM in DEXTROSE 5% 100 ML IV SCH ×3 (03:52→20:07)
[2021-08-30] MEDS: ACETAMINOPHEN 325 MG TAB PO PRN (04:04)
[2021-08-30] MEDS: oxyCODONE HCL IR 5 MG TAB (IMMEDIATE RELEASE) PO PRN ×2 (04:17→15:23)
[2021-08-30] MEDS: VANCOMYCIN HCL 750 MG in SODIUM CHLORIDE 0.9% 250 ML IV SCH ×2 (06:37→17:46)
[2021-08-30 07:04] LABS: Hematocrit (blood only) 33.6 % (37-47); Mean Corpuscular Hemoglobin 27.2 pg (25-34); Mean Corpuscular Hgb Conc 29.8 g/dL (32-36); Mean Corpuscular Volume 91.3 fL (80-100); Mean Platelet Volume 10.2 fL (7.4-10.4); Platelet Count 284 K/uL (130-400); RDW Coefficient of Variation 13.3 % (11.5-14.5); RDW Standard Deviation 44.5 fL (36.4-46.3); Red Blood Count 3.68 M/uL (4.2-5.4); White Blood Count 5.49 K/uL (4.8-10.8)
[2021-08-30 07:48] LABS: Calcium 9.2 mg/dl (8.5-10.1); Creatinine Clr Calc Pharmacy 79.2 ml/min; Est GFR (African American) 108.2 ml/min; Est GFR (Non-African American) 93.3 ml/min; Potassium 4.5 mmol/L (3.5-5.1)
--- NOTE | 2021-08-30 08:17 | Electrocardiogram Report ---
Test Reason : Blood Pressure : / mmHG Vent. Rate : 104 BPM Atrial Rate : 104 BPM P-R Int : 144 ms QRS Dur : 086 ms QT Int : 334 ms P-R-T Axes : 072 002 057 degrees QTc Int : 439 ms Sinus tachycardia Otherwise normal ECG When compared with ECG of 29-AUG-2021 08:40, Premature atrial complexes are no longer Present Confirmed by Lucas Morrow ([id number]) on 08/30/2021 8:17:06 AM Referred By: REFERRED SELF Confirmed By:Lucas Morrow
--- NOTE | 2021-08-30 08:18 | Pharmacy Report ---
Pharmacy Vanc AUC Short Note - Date of Service August 30, 2021 - Assessment & Plan Assessment * Ms Ramos is a 76 year old F receiving Vanc/Zosyn for treatment of HAP. * Pertinent microbiologic data includes: Positive MRSA Nasal Swab, blood cultures pending * PMH includes: COPD, chronic resp failure on 3L oxygen at home, CHF, hospitalized 08/07-08/17 for back pain/fracture Plan Vancomycin * AUC/HELIO is the preferred PK/PD target for vancomycin * AUC guided dosing is effective and associated with decreased risk of nephrotoxicity compared to traditional trough targets * Vancomycin 750mg IV q12h (following an appropriate loading dose) was initiated last evening. * This regimen's approximated trough level of 12.2 mcg/mL is predicted to achieve target AUC/HELIO of 400-600 mg/L.hr and may be associated with a 7% risk of nephrotoxicity * Trough level has been ordered prior to the 4th maintenance dose. Zosyn 3.375gm IV x1, then 3.375gm IV q8h Pharmacy will continue to follow and will adjust dose/frequency as necessary. Thank you.
[2021-08-30] MEDS: ASPIRIN 81 MG ECTAB PO SCH (08:52)
[2021-08-30] MEDS: ROFLUMILAST 500 MCG TAB PO SCH (08:54)
[2021-08-30] MEDS: METOPROLOL SUCC 50MG EXT REL TAB PO SCH (08:54)
[2021-08-30] MEDS: MAGNESIUM OXIDE 400 MG TAB PO SCH (08:54)
[2021-08-30] MEDS: PANTOprazole 40 MG TAB PO SCH (08:54)
[2021-08-30] MEDS: predniSONE 20 MG TAB PO SCH (08:54)
[2021-08-30] MEDS: LOSARTAN POTASSIUM 25 MG TAB PO SCH (08:55)
[2021-08-30] MEDS: FLUTICASONE/VILANTEROL 100/25MCG 14 PUFFS/INHALER INH SCH (08:55)
[2021-08-30] MEDS: ATORVASTATIN 40 MG TAB PO SCH (08:55)
[2021-08-30] MEDS: DOCUSATE SODIUM 100 MG CAP PO SCH (08:55)
[2021-08-30] MEDS ORDERED: METOPROLOL SUCC 50MG EXT REL TAB PO SCH (09:00)
[2021-08-30] MEDS ORDERED: XOPENEX/ATROVENT 1.25mg/0.5MG NEB COMBO NEB SCH (09:10)
[2021-08-30] MEDS: MUPIROCIN 2% OINT 22 GM TUBE EXT SCH ×2 (09:55→20:08)
[2021-08-30] MEDS: LEVALBUTEROL 1.25MG/0.5ML NEB INH SCH ×3 (11:34→19:53)
[2021-08-30] MEDS: IPRATROPIUM BROMIDE NEB SOLN 0.02% 2.5 ML VIAL INH SCH ×3 (11:34→19:53)
[2021-08-30] MEDS: traMADol HCL 50 MG TABLET PO PRN (12:23)
--- NOTE | 2021-08-30 13:33 | Hospitalist Progress Note ---
Date of Service August 30, 2021 Assessment & Plan (1) Pneumonia: (2) Chronic respiratory failure with hypoxia and hypercapnia: (3) COPD (chronic obstructive pulmonary disease): Plan: Possible Health care associated Pneumonia, MRSA Pneumonia per GENEVA Rust's notes: -Patient presenting from home with reports of worsening shortness of breath. -In the ED, patient is saturating well on her chronic 2 L of oxygen however VBG showed pH 7.31 and PCO2 100, therefore patient was placed on BiPAP briefly. -CTA chest negative for pulmonary embolism however shows Multiple consolidative opacities most prominent in the upper lungs which may represent aspiration an d/or pneumonia -Patient is tachycardic (has history of chronic sinus tachycardia), however afebrile and no leukocytosis. Does not appear septic -Given history of recent hospitalization, will cover patient with IV Zosyn and vancomycin. Noted positive MRSA nasal swab. -S/p Solu-Medrol 40 mg IV in the ED, continue prednisone 40 mg daily -Continue routine home COPD medications and inhalers, nebs -Follow blood cultures 08/30 Nasal MRSA (+) now on 3 L O2 via nasal cannula wheezing improved ff up cultures continue Vanco + Zosyn Prednisone 40mg po daily Nebs monitor closely (4) Tachycardia: Plan: per GENEVA Rust's notes: -History of chronic sinus tachycardia -Rate typically controlled on metoprolol succinate 50 mg daily -Heart rate likely exacerbated by pneumonia, hypoxia -HR improved metoprolol 5 mg IV x 1 dose, resume home p.o. dose -Monitor on telemetry 08/30 HR improved with treatment of COPD exacerbation, PNA (5) T12 compression fracture: Plan: pain well controleld PRN Tramadol and oxycodone (6) Chronic combined systolic and diastolic CHF (congestive heart failure): Plan: -Appears euvolemic, does not take routine diuretics -Echo 02/2021-EF 40 to 45%, grade 1 diastolic dysfunction -History of tachycardic versus ischemic cardiomyopathy 08/30 euvolemic (7) Hypertension: Plan: -BP controlled, continue losartan and metoprolol (8) DVT prophylaxis: Plan: -SQ Lovenox (9) Discharge planning issues: Plan: -[facility] Home Health has placed phone calls to [facility] at [facility] for [facility] rehab placement. Case management, PT/OT eval was ordered. Admission and Anticipated Discharge Date Admission Date: August 29, 2021 Subjective Follow-up for COPD exacerbation, acute on chronic hypoxic respiratory failure, bilateral pneumonia, etc. Seen resting in bed, comfortable, not in distress on 3 L NC states her breathing is about the same as yesterday has occasional dry cough no chest pain, dyspnea, palpitations, dizziness no fever/chills, nausea/vomiting back pain mild-moderate no other symptoms Review of Systems Review of Systems: all noted and negative except for above Physical Exam Physical Exam: General- oriented x 2, not in distress, speaks in sentences with no effort or accessory muscle use Eyes- anicteric Neck- no JVD Lungs-(+) mild expiratory wheeze, no crackles good air entry bilaterally Heart- normal rate, regular rhythm; no murmurs Abdomen- normal bowel sounds, nondistended, soft, nontender Extremities- no pretibial edema, no calf tenderness Neuro- alert, oriented x 3; no gross focal neurologic deficits Skin- warm & dry Results & Data Results & Data ([facility]) Vital Signs (Past 12 Hours) Vital Signs Temp Pulse Pulse Resp BP Pulse Ox 08/30/21 11:41 36.6 C 89 20 123/76 98 08/30/21 11:34 103 H 18 92 08/30/21 07:27 36.5 C 98 H 18 160/85 H 100 08/30/21 07:00 83 08/30/21 03:59 36.8 C 103 H 18 150/85 H 93 all noted and reviewed including below (1) COPD (chronic obstructive pulmonary disease) COPD type: unspecified COPD Qualified Code(s): J44.9 - Chronic obstructive pulmonary disease, unspecified (2) Hypertension Hypertension type: unspecified Qualified Code(s): I10 - Essential (primary) hypertension (3) Pneumonia Laterality: right Lung location: upper lobe of lung Pneumonia type: due to unspecified organism Qualified Code(s): J18.9 - Pneumonia, unspecified organism
[2021-08-30] MEDS: ENOXAPARIN INJ 40 MG/0.4 ML SYR SQ SCH (18:40)
[2021-08-30] MEDS: rOPINIRole HCL 0.25 MG TABLET PO SCH (20:24)
[2021-08-31] MEDS: IPRATROPIUM BROMIDE NEB SOLN 0.02% 2.5 ML VIAL INH SCH ×4 (00:38→19:17)
[2021-08-31] MEDS: LEVALBUTEROL 1.25MG/0.5ML NEB INH SCH ×4 (00:38→19:18)
[2021-08-31] MEDS: traMADol HCL 50 MG TABLET PO PRN ×2 (04:22→19:35)
[2021-08-31] MEDS: PIPERACILLIN/TAZOBACTAM 3.375 GM in DEXTROSE 5% 100 ML IV SCH ×3 (04:28→19:37)
[2021-08-31] MEDS: VANCOMYCIN HCL 750 MG in SODIUM CHLORIDE 0.9% 250 ML IV SCH ×2 (05:33→17:59)
[2021-08-31] MEDS: oxyCODONE HCL IR 5 MG TAB (IMMEDIATE RELEASE) PO PRN (07:02)
[2021-08-31] MEDS: METOPROLOL SUCC 50MG EXT REL TAB PO SCH (08:43)
[2021-08-31] MEDS: LOSARTAN POTASSIUM 25 MG TAB PO SCH (08:43)
[2021-08-31] MEDS: predniSONE 20 MG TAB PO SCH (08:43)
[2021-08-31] MEDS: MAGNESIUM OXIDE 400 MG TAB PO SCH ×2 (08:43→09:27)
[2021-08-31] MEDS: ROFLUMILAST 500 MCG TAB PO SCH (08:44)
[2021-08-31] MEDS: ASPIRIN 81 MG ECTAB PO SCH (08:44)
[2021-08-31] MEDS: PANTOprazole 40 MG TAB PO SCH (08:44)
[2021-08-31] MEDS: ATORVASTATIN 40 MG TAB PO SCH (08:44)
[2021-08-31] MEDS: MUPIROCIN 2% OINT 22 GM TUBE EXT SCH ×2 (08:45→20:19)
[2021-08-31] MEDS: FLUTICASONE/VILANTEROL 100/25MCG 14 PUFFS/INHALER INH SCH (08:45)
[2021-08-31] MEDS: DOCUSATE SODIUM 100 MG CAP PO SCH (08:48)
--- NOTE | 2021-08-31 08:52 | Electrocardiogram Report ---
Test Reason : Blood Pressure : / mmHG Vent. Rate : 098 BPM Atrial Rate : 098 BPM P-R Int : 142 ms QRS Dur : 092 ms QT Int : 350 ms P-R-T Axes : 057 -06 053 degrees QTc Int : 446 ms Normal sinus rhythm Normal ECG When compared with ECG of 30-AUG-2021 06:24, No significant change was found Confirmed by Lucas Morrow ([id number]) on 08/31/2021 8:52:39 AM Referred By: REFERRED SELF Confirmed By:Lucas Morrow
[2021-08-31] MEDS ORDERED: OLANZapine 10 MG/2.1 ML SDV IM STA ×2 (13:31→20:06)
[2021-08-31] MEDS: ENOXAPARIN INJ 40 MG/0.4 ML SYR SQ SCH (16:21)
[2021-08-31] MEDS ORDERED: VANCOMYCIN TROUGH ONE (17:30)
[2021-08-31 18:25] LABS: Creatinine Clr Calc Pharmacy 55.6 ml/min; Est GFR (Non-African American) 80.2 ml/min
[2021-08-31] MEDS ORDERED: SODIUM CHLORIDE 0.9% 500 ML IV ONE (20:44)
[2021-08-31 22:16] LABS: Magnesium 2.2 mg/dl (1.8-2.4)
--- NOTE | 2021-08-31 23:53 | Hospitalist Progress Note ---
Date of Service August 31, 2021 Assessment & Plan (1) Pneumonia: (2) Chronic respiratory failure with hypoxia and hypercapnia: (3) COPD (chronic obstructive pulmonary disease): Plan: Possible Health care associated Pneumonia, MRSA Pneumonia per GENEVA Rust's notes: -Patient presenting from home with reports of worsening shortness of breath. -In the ED, patient is saturating well on her chronic 2 L of oxygen however VBG showed pH 7.31 and PCO2 100, therefore patient was placed on BiPAP briefly. -CTA chest negative for pulmonary embolism however shows Multiple consolidative opacities most prominent in the upper lungs which may represent aspiration an d/or pneumonia -Patient is tachycardic (has history of chronic sinus tachycardia), however afebrile and no leukocytosis. Does not appear septic -Given history of recent hospitalization, will cover patient with IV Zosyn and vancomycin. Noted positive MRSA nasal swab. -S/p Solu-Medrol 40 mg IV in the ED, continue prednisone 40 mg daily -Continue routine home COPD medications and inhalers, nebs -Follow blood cultures Nasal MRSA (+) now on 3 L O2 via nasal cannula wheezing improved ff up cultures continue Vanco + Zosyn Prednisone 40mg po daily Nebs monitor closely (4) Tachycardia: Plan: per GENEVA Rust's notes: -History of chronic sinus tachycardia -Rate typically controlled on metoprolol succinate 50 mg daily -Heart rate likely exacerbated by pneumonia, hypoxia -HR improved metoprolol 5 mg IV x 1 dose, resume home p.o. dose -Monitor on telemetry 08/30 HR improved with treatment of COPD exacerbation, PNA (5) T12 compression fracture: Plan: pain well controleld PRN Tramadol and oxycodone (6) Chronic combined systolic and diastolic CHF (congestive heart failure): Plan: -Appears euvolemic, does not take routine diuretics -Echo 02/2021-EF 40 to 45%, grade 1 diastolic dysfunction -History of tachycardic versus ischemic cardiomyopathy 08/30 euvolemic (7) Hypertension: Plan: -BP controlled, continue losartan and metoprolol (8) DVT prophylaxis: Plan: -SQ Lovenox (9) Discharge planning issues: Plan: -[facility] Home Health has placed phone calls to [facility] for possible rehab placement. Case management, PT/OT eval was ordered. Admission and Anticipated Discharge Date Admission Date: August 29, 2021 Subjective Patient was seen and examined for follow-up of shortness of breath Lying in bed with no acute distress Patient seems to be confused compared to her baseline She was very agitated and did not want me to examine her She is asking to be released from the hospital right now Denies any worsening shortness of breath, palpitation, dizziness, and fever Review of Systems Review of Systems: All systems reviewed & are unremarkable except as noted in Subjective Physical Exam Physical Exam: She was agitated and refused to let me examine her Results & Data Results & Data ([facility]) Vital Signs (Past 12 Hours) Vital Signs Temp Pulse Pulse Resp BP Pulse Ox 08/31/21 20:15 36.6 C 110 H 18 149/84 H 94 08/31/21 19:18 110 H 24 98 08/31/21 16:07 129 H (1) COPD (chronic obstructive pulmonary disease) COPD type: unspecified COPD Qualified Code(s): J44.9 - Chronic obstructive pulmonary disease, unspecified (2) Hypertension Hypertension type: unspecified Qualified Code(s): I10 - Essential (primary) hypertension (3) Pneumonia Laterality: right Lung location: upper lobe of lung Pneumonia type: due to unspecified organism Qualified Code(s): J18.9 - Pneumonia, unspecified organism
[2021-09-01] MEDS: oxyCODONE HCL IR 5 MG TAB (IMMEDIATE RELEASE) PO PRN (01:36)
[2021-09-01] MEDS: PIPERACILLIN/TAZOBACTAM 3.375 GM in DEXTROSE 5% 100 ML IV SCH ×3 (03:44→20:37)
[2021-09-01] MEDS: LEVALBUTEROL 1.25MG/0.5ML NEB INH SCH ×5 (04:34→18:54)
[2021-09-01] MEDS: IPRATROPIUM BROMIDE NEB SOLN 0.02% 2.5 ML VIAL INH SCH ×5 (04:34→18:54)
[2021-09-01] MEDS: VANCOMYCIN HCL 750 MG in SODIUM CHLORIDE 0.9% 250 ML IV SCH ×2 (05:54→17:21)
[2021-09-01] MEDS: METOPROLOL SUCC 50MG EXT REL TAB PO SCH ×3 (05:54→08:33)
[2021-09-01] MEDS: traMADol HCL 50 MG TABLET PO PRN (06:03)
[2021-09-01 06:50] LABS: Creatinine Clr Calc Pharmacy 79.7 ml/min; Est GFR (African American) 107.4 ml/min; Est GFR (Non-African American) 92.7 ml/min
[2021-09-01] MEDS ORDERED: ONDANSETRON INJ 2 MG/ML 2 ML VIAL IV PRN (07:55)
[2021-09-01] MEDS: predniSONE 20 MG TAB PO SCH (08:32)
[2021-09-01] MEDS: ATORVASTATIN 40 MG TAB PO SCH (08:32)
[2021-09-01] MEDS: LOSARTAN POTASSIUM 25 MG TAB PO SCH (08:32)
[2021-09-01] MEDS: PANTOprazole 40 MG TAB PO SCH (08:32)
[2021-09-01] MEDS: MAGNESIUM OXIDE 400 MG TAB PO SCH (08:33)
[2021-09-01] MEDS: ROFLUMILAST 500 MCG TAB PO SCH (08:33)
[2021-09-01] MEDS: ASPIRIN 81 MG ECTAB PO SCH (08:33)
[2021-09-01] MEDS: FLUTICASONE/VILANTEROL 100/25MCG 14 PUFFS/INHALER INH SCH (08:35)
[2021-09-01] MEDS: MUPIROCIN 2% OINT 22 GM TUBE EXT SCH ×2 (08:36→20:37)
--- NOTE | 2021-09-01 09:17 | Pharmacy Report ---
Pharmacy Vanc AUC Short Note - Date of Service September 01, 2021 - Assessment & Plan Assessment 76 year old F receiving vancomycin and zosyn for HAP. Blood cultures negative thus far, MRSA swab positive, sputum cx pending Day # 4 of antimicrobial therapy. Plan Vancomycin * AUC/HELIO is the preferred PK/PD target for vancomycin * AUC guided dosing is effective and associated with decreased risk of nephrotoxicity compared to traditional trough targets * Trough level came back last night at ~14 mcg/mL. Dosing is predicted to achieve target AUC/HELIO of 400-600 mg/L. * Plan to continue same vancomycin dosing 750 mg iv q 12 hr Pharmacy will continue to follow and will adjust dose/frequency as necessary. Thank you.
[2021-09-01] MEDS: DOCUSATE SODIUM 100 MG CAP PO SCH (09:30)
[2021-09-01] MEDS: OLANZapine 10 MG/2.1 ML SDV IM PRN ×2 (13:17→22:33)
[2021-09-01] MEDS: ENOXAPARIN INJ 40 MG/0.4 ML SYR SQ SCH (18:02)
[2021-09-01 23:45] LABS: HCO3 ABG 48 mmol/L (19-24); Oxygen Saturation ABG 94.3 % (90-95); PCO2 ABG 82 mmHg (35-46); PO2 ABG 75 mmHg (80-95); pH ABG 7.39 (7.35-7.45)
[2021-09-01 23:46] LABS: Allen Test POS (Pos)
--- NOTE | 2021-09-02 00:13 | Hospitalist Progress Note ---
Date of Service September 01, 2021 Assessment & Plan (1) Pneumonia: (2) Chronic respiratory failure with hypoxia and hypercapnia: (3) COPD (chronic obstructive pulmonary disease): Plan: Present on admission with worsening shortness of breath. Possible Health care associated Pneumonia, MRSA Pneumonia In the ED, patient is saturating well on her chronic 2 L of oxygen however VBG showed pH 7.31 and PCO2 100, therefore patient was placed on BiPAP briefly. CTA chest negative for pulmonary embolism however shows Multiple consolidative opacities most prominent in the upper lungs which may represent aspiration and/or pneumonia Nasal MRSA positive Patient is tachycardic (has history of chronic sinus tachycardia), however afebrile and no leukocytosis. Does not appear septic Given history of recent hospitalization, will cover patient with IV Zosyn and vancomycin. Noted positive MRSA nasal swab. S/p Solu-Medrol 40 mg IV in the ED, continue prednisone 40 mg daily Continue routine home COPD medications and inhalers, nebs Sputum cx and blood cx are negative Will complete prednisone 5 days course Continue oxygen supplement (4) Confusion: Plan: Possible related to delirium/steroid No focal neuro deficit on discharge Much calm today (5) Tachycardia: Plan: History of chronic sinus tachycardia Rate typically controlled on metoprolol succinate 50 mg daily Heart rate likely exacerbated by pneumonia, hypoxia and agitation Continue metoprolol 50mg daily Stable (6) T12 compression fracture: Plan: pain well controleld PRN Tramadol and oxycodone (7) Chronic combined systolic and diastolic CHF (congestive heart failure): Plan: Appears euvolemic, does not take routine diuretics Echo 02/2021 showed EF 40 to 45%, grade 1 diastolic dysfunction Stable (8) Hypertension: Plan: BP has been fluctuated Continue losartan and metoprolol Continue monitor BP (9) DVT prophylaxis: Plan: -SQ Lovenox (10) Discharge planning issues: Plan: -[facility] Home Health has placed phone calls to [facility] for possible rehab placement. Case management, PT/OT eval was ordered. Admission and Anticipated Discharge Date Admission Date: August 29, 2021 Subjective Patient was seen and examined for follow-up of shortness of breath Sitting in chair with no acute distress She is less confused today She said that she would like to go home tomorrow since her son would be able to get her I was able to examined her today Denies any worsening shortness of breath, palpitation, dizziness, and fever Review of Systems Review of Systems: All systems reviewed & are unremarkable except as noted in Subjective Physical Exam Physical Exam: General- No acute distress Head- atraumatic Eyes- PERRL, EOMI, ENT- oropharynx clear Neck- supple, no JVD Lungs- +diminished breath sound Heart- regular rhythm; no murmur Abdomen- normal bowel sounds, soft, nontender Extremities- no calf tenderness Neuro- awake; PERRL, EOMI; no facial palsy; no dysarthria, follow commands Skin- warm & dry Results & Data Results & Data ([facility]) Vital Signs (Past 12 Hours) Vital Signs Temp Pulse Pulse Resp BP Pulse Ox 09/01/21 23:31 124 H 09/01/21 19:43 36.6 C 105 H 18 109/71 99 09/01/21 18:54 75 16 100 09/01/21 18:26 75 (1) Pneumonia Laterality: right Lung location: upper lobe of lung Pneumonia type: due to unspecified organism Qualified Code(s): J18.9 - Pneumonia, unspecified organism (2) COPD (chronic obstructive pulmonary disease) COPD type: unspecified COPD Qualified Code(s): J44.9 - Chronic obstructive pulmonary disease, unspecified (3) Hypertension Hypertension type: unspecified Qualified Code(s): I10 - Essential (primary) hypertension
[2021-09-02] MEDS ORDERED: OLANZapine 10 MG/2.1 ML SDV IM STA (00:35)
[2021-09-02] MEDS: oxyCODONE HCL IR 5 MG TAB (IMMEDIATE RELEASE) PO PRN ×2 (00:40→22:39)
[2021-09-02] MEDS ORDERED: KETOROLAC TROMETHAMINE 15 MG/ML VIAL IV ONE (00:41)
[2021-09-02] MEDS: IPRATROPIUM BROMIDE NEB SOLN 0.02% 2.5 ML VIAL INH SCH ×3 (01:26→13:12)
[2021-09-02] MEDS: LEVALBUTEROL 1.25MG/0.5ML NEB INH SCH ×3 (01:26→13:12)
[2021-09-02] MEDS: PIPERACILLIN/TAZOBACTAM 3.375 GM in DEXTROSE 5% 100 ML IV SCH ×3 (04:04→20:25)
[2021-09-02] MEDS: VANCOMYCIN HCL 750 MG in SODIUM CHLORIDE 0.9% 250 ML IV SCH ×2 (05:43→17:28)
[2021-09-02 08:04] LABS: Creatinine Clr Calc Pharmacy 79.3 ml/min; Est GFR (African American) 107.4 ml/min; Est GFR (Non-African American) 92.7 ml/min
[2021-09-02] MEDS: ASPIRIN 81 MG ECTAB PO SCH (09:24)
[2021-09-02] MEDS: ATORVASTATIN 40 MG TAB PO SCH (09:24)
[2021-09-02] MEDS: DOCUSATE SODIUM 100 MG CAP PO SCH (09:24)
[2021-09-02] MEDS: LOSARTAN POTASSIUM 25 MG TAB PO SCH (09:25)
[2021-09-02] MEDS: FLUTICASONE/VILANTEROL 100/25MCG 14 PUFFS/INHALER INH SCH (09:25)
[2021-09-02] MEDS: MAGNESIUM OXIDE 400 MG TAB PO SCH (09:26)
[2021-09-02] MEDS: MUPIROCIN 2% OINT 22 GM TUBE EXT SCH ×2 (09:26→20:27)
[2021-09-02] MEDS: predniSONE 20 MG TAB PO SCH (09:26)
[2021-09-02] MEDS: PANTOprazole 40 MG TAB PO SCH (09:26)
[2021-09-02] MEDS: ROFLUMILAST 500 MCG TAB PO SCH (09:27)
[2021-09-02] MEDS: METOPROLOL SUCC 50MG EXT REL TAB PO SCH (09:49)
[2021-09-02] MEDS: traMADol HCL 50 MG TABLET PO PRN (09:49)
[2021-09-02] MEDS: ACETAMINOPHEN 325 MG TAB PO PRN (12:59)
[2021-09-02] MEDS: ENOXAPARIN INJ 40 MG/0.4 ML SYR SQ SCH (14:36)
[2021-09-02] MEDS ORDERED: LEVALBUTEROL 1.25MG/0.5ML NEB INH PRN (17:02)
[2021-09-02] MEDS ORDERED: IPRATROPIUM BROMIDE NEB SOLN 0.02% 2.5 ML VIAL INH PRN (17:02)
[2021-09-02] MEDS: rOPINIRole HCL 0.25 MG TABLET PO SCH (20:26)
--- NOTE | 2021-09-02 23:25 | Hospitalist Progress Note ---
Date of Service September 02, 2021 Assessment & Plan (1) Pneumonia: (2) Chronic respiratory failure with hypoxia and hypercapnia: (3) COPD (chronic obstructive pulmonary disease): Plan: Present on admission with worsening shortness of breath. Possible Health care associated Pneumonia, MRSA Pneumonia In the ED, patient is saturating well on her chronic 2 L of oxygen however VBG showed pH 7.31 and PCO2 100, therefore patient was placed on BiPAP briefly. CTA chest negative for pulmonary embolism however shows Multiple consolidative opacities most prominent in the upper lungs which may represent aspiration and/or pneumonia Nasal MRSA positive Patient is tachycardic (has history of chronic sinus tachycardia), however afebrile and no leukocytosis. Does not appear septic Given history of recent hospitalization, will cover patient with IV Zosyn and vancomycin. Noted positive MRSA nasal swab. S/p Solu-Medrol 40 mg IV in the ED, continue prednisone 40 mg daily Continue routine home COPD medications and inhalers, nebs Sputum cx and blood cx are negative Will complete prednisone 5 days course Continue oxygen supplement (4) Confusion: Plan: Possible related to delirium/steroid No focal neuro deficit on discharge Much calm today (5) Tachycardia: Plan: History of chronic sinus tachycardia Rate typically controlled on metoprolol succinate 50 mg daily Heart rate likely exacerbated by pneumonia, hypoxia and agitation Continue metoprolol 50mg daily Stable (6) T12 compression fracture: Plan: pain well controleld PRN Tramadol and oxycodone (7) Chronic combined systolic and diastolic CHF (congestive heart failure): Plan: Appears euvolemic, does not take routine diuretics Echo 02/2021 showed EF 40 to 45%, grade 1 diastolic dysfunction Stable (8) Hypertension: Plan: BP has been fluctuated Continue losartan and metoprolol Continue monitor BP (9) DVT prophylaxis: Plan: -SQ Lovenox (10) Discharge planning issues: Plan: -[facility] Home Health has placed phone calls to [facility] for possible rehab placement. Case management, PT/OT eval was ordered. Admission and Anticipated Discharge Date Admission Date: August 29, 2021 Subjective Patient was seen and examined for follow-up of shortness of breath Sitting in chair with no acute distress Spoke to son today and provided with update Denies any worsening shortness of breath, palpitation, dizziness, and fever Review of Systems Review of Systems: All systems reviewed & are unremarkable except as noted in Subjective Physical Exam 2 Physical Exam: General- No acute distress Head- atraumatic Eyes- PERRL, EOMI, ENT- oropharynx clear Neck- supple, no JVD Lungs- +diminished breath sound Heart- regular rhythm; no murmur Abdomen- normal bowel sounds, soft, nontender Extremities- no calf tenderness Neuro- awake; PERRL, EOMI; no facial palsy; no dysarthria, follow commands Skin- warm & dry Results & Data Results & Data ([facility]) Vital Signs (Past 12 Hours) Vital Signs Temp Pulse Pulse Resp BP Pulse Ox 09/02/21 15:53 37.4 C 114 H 22 140/84 94 09/02/21 13:12 102 H 19 96 09/02/21 11:48 36.8 C 96 H 16 148/78 H 93 (1) COPD (chronic obstructive pulmonary disease) COPD type: unspecified COPD Qualified Code(s): J44.9 - Chronic obstructive pulmonary disease, unspecified (2) Hypertension Hypertension type: unspecified Qualified Code(s): I10 - Essential (primary) hypertension (3) Pneumonia Laterality: right Lung location: upper lobe of lung Pneumonia type: due to unspecified organism Qualified Code(s): J18.9 - Pneumonia, unspecified organism
[2021-09-03] MEDS: PIPERACILLIN/TAZOBACTAM 3.375 GM in DEXTROSE 5% 100 ML IV SCH ×4 (04:46→20:59)
[2021-09-03] MEDS ORDERED: VANCOMYCIN TROUGH ONE (05:30)
[2021-09-03] MEDS: VANCOMYCIN HCL 750 MG in SODIUM CHLORIDE 0.9% 250 ML IV SCH ×2 (06:21→17:38)
[2021-09-03 07:11] LABS: Creatinine Clr Calc Pharmacy 73.4 ml/min; Est GFR (African American) 104.8 ml/min; Est GFR (Non-African American) 90.4 ml/min
[2021-09-03] MEDS: MAGNESIUM OXIDE 400 MG TAB PO SCH (10:53)
[2021-09-03] MEDS: DOCUSATE SODIUM 100 MG CAP PO SCH (10:53)
[2021-09-03] MEDS: ATORVASTATIN 40 MG TAB PO SCH (10:53)
[2021-09-03] MEDS: FLUTICASONE/VILANTEROL 100/25MCG 14 PUFFS/INHALER INH SCH (10:53)
[2021-09-03] MEDS: ASPIRIN 81 MG ECTAB PO SCH (10:53)
[2021-09-03] MEDS: LOSARTAN POTASSIUM 25 MG TAB PO SCH (10:53)
[2021-09-03] MEDS: ROFLUMILAST 500 MCG TAB PO SCH (10:54)
[2021-09-03] MEDS: MUPIROCIN 2% OINT 22 GM TUBE EXT SCH ×2 (10:54→21:06)
[2021-09-03] MEDS: PANTOprazole 40 MG TAB PO SCH (10:54)
[2021-09-03] MEDS: ACETAMINOPHEN 325 MG TAB PO PRN ×3 (13:09→20:08)
[2021-09-03] MEDS: ENOXAPARIN INJ 40 MG/0.4 ML SYR SQ SCH (15:01)
--- NOTE | 2021-09-03 19:40 | Hospitalist Progress Note ---
Date of Service September 03, 2021 Assessment & Plan (1) Pneumonia: (2) Chronic respiratory failure with hypoxia and hypercapnia: (3) COPD (chronic obstructive pulmonary disease): Plan: Present on admission with worsening shortness of breath. Possible Health care associated Pneumonia, MRSA Pneumonia In the ED, patient is saturating well on her chronic 2 L of oxygen however VBG showed pH 7.31 and PCO2 100, therefore patient was placed on BiPAP briefly. CTA chest negative for pulmonary embolism however shows Multiple consolidative opacities most prominent in the upper lungs which may represent aspiration and/or pneumonia Nasal MRSA positive Patient is tachycardic (has history of chronic sinus tachycardia), however afebrile and no leukocytosis. Does not appear septic Given history of recent hospitalization, will cover patient with IV Zosyn and vancomycin. Noted positive MRSA nasal swab. S/p Solu-Medrol 40 mg IV in the ED, continue prednisone 40 mg daily Continue routine home COPD medications and inhalers, nebs Sputum cx and blood cx are negative Will complete prednisone 5 days course Continue oxygen supplement (4) Confusion: Plan: Possible related to delirium/steroid No focal neuro deficit on discharge Much calm today (5) Tachycardia: Plan: History of chronic sinus tachycardia Rate typically controlled on metoprolol succinate 50 mg daily Heart rate likely exacerbated by pneumonia, hypoxia and agitation Continue metoprolol 50mg daily Stable (6) T12 compression fracture: Plan: pain well controleld PRN Tramadol and oxycodone (7) Chronic combined systolic and diastolic CHF (congestive heart failure): Plan: Appears euvolemic, does not take routine diuretics Echo 02/2021 showed EF 40 to 45%, grade 1 diastolic dysfunction Stable (8) Hypertension: Plan: BP has been fluctuated Continue losartan and metoprolol Continue monitor BP (9) DVT prophylaxis: Plan: -SQ Lovenox (10) Discharge planning issues: Plan: -[facility] Home Health has placed phone calls to [facility] at [facility] for possible rehab placement. Case management, PT/OT eval was ordered. Admission and Anticipated Discharge Date Admission Date: August 29, 2021 Subjective Patient was seen and examined for follow-up of shortness of breath Lying in bed with no acute distress She is a little bit more calm and cooperative today Denies any worsening shortness of breath, palpitation, dizziness, and fever Review of Systems Review of Systems: All systems reviewed & are unremarkable except as noted in Subjective Physical Exam Physical Exam: General- No acute distress Head- atraumatic Eyes- PERRL, EOMI, ENT- oropharynx clear Neck- supple, no JVD Lungs- +diminished breath sound Heart- regular rhythm; no murmur Abdomen- normal bowel sounds, soft, nontender Extremities- no calf tenderness Neuro- awake; PERRL, EOMI; no facial palsy; no dysarthria, follow commands Skin- warm & dry Results & Data Results & Data ([facility]) Vital Signs (Past 12 Hours) Vital Signs Temp Pulse Resp BP Pulse Ox 09/03/21 18:53 132 H 97 09/03/21 18:52 95 09/03/21 18:51 65 L 09/03/21 14:06 37.3 C 114 H 16 153/81 H 92 (1) COPD (chronic obstructive pulmonary disease) COPD type: unspecified COPD Qualified Code(s): J44.9 - Chronic obstructive pulmonary disease, unspecified (2) Hypertension Hypertension type: unspecified Qualified Code(s): I10 - Essential (primary) hypertension (3) Pneumonia Laterality: right Lung location: upper lobe of lung Pneumonia type: due to unspecified organism Qualified Code(s): J18.9 - Pneumonia, unspecified organism
[2021-09-03] MEDS: OLANZapine 10 MG/2.1 ML SDV IM PRN (19:47)
[2021-09-03] MEDS: rOPINIRole HCL 0.25 MG TABLET PO SCH (21:32)
[2021-09-03] MEDS ORDERED: SODIUM CHLORIDE 0.9% 500 ML IV ONE (21:43)
[2021-09-03] MEDS ORDERED: DICLOFENAC SOD 1% GEL 100 GM TUBE EXT PRN (22:07)
[2021-09-03] MEDS: oxyCODONE HCL IR 5 MG TAB (IMMEDIATE RELEASE) PO PRN (22:35)
[2021-09-03 23:20] LABS: BUN Creatinine Ratio 24.4 (10-20); Calcium 8.6 mg/dl (8.5-10.1); Creatinine Clr Calc Pharmacy 74.8 ml/min; Est GFR (African American) 105.4 ml/min; Est GFR (Non-African American) 90.9 ml/min; Potassium 3.5 mmol/L (3.5-5.1)
[2021-09-03] MEDS ORDERED: POTASSIUM CHLORIDE CRTAB 20 MEQ TABCR PO STA (23:24)
[2021-09-03 23:53] LABS: Basophils # (auto) 0.01 K/uL (0-0.2); Basophils % (auto) 0.1 %; Eosinophils # (auto) 0.28 K/uL (0-0.5); Eosinophils % (auto) 3.6 %; Hematocrit (blood only) 33.4 % (37-47); Hemoglobin 9.6 g/dL (12.0-16.0); Immature Granulocytes # (auto) 0.01 K/uL (0.00-0.02); Immature Granulocytes % (auto) 0.1 %; Lymphocytes # (auto) 0.73 K/uL (1.2-3.4); Lymphocytes % (auto) 9.4 %; Mean Corpuscular Hemoglobin 26.3 pg (25-34); Mean Corpuscular Hgb Conc 28.7 g/dL (32-36); Mean Corpuscular Volume 91.5 fL (80-100); Mean Platelet Volume 10.4 fL (7.4-10.4); Monocytes # (auto) 0.93 K/uL (0.11-0.59); Neutrophils # (auto) 5.77 K/uL (1.4-6.5); Neutrophils % (auto) 74.8 %; Platelet Count 206 K/uL (130-400); RDW Coefficient of Variation 13.5 % (11.5-14.5); RDW Standard Deviation 45.4 fL (36.4-46.3); Red Blood Count 3.65 M/uL (4.2-5.4); White Blood Count 7.73 K/uL (4.8-10.8)
[2021-09-04] MEDS ORDERED: POTASSIUM CHLORIDE CRTAB 20 MEQ TABCR PO ONE (02:00)
[2021-09-04] MEDS: PIPERACILLIN/TAZOBACTAM 3.375 GM in DEXTROSE 5% 100 ML IV SCH ×3 (04:58→20:14)
[2021-09-04] MEDS: VANCOMYCIN HCL 750 MG in SODIUM CHLORIDE 0.9% 250 ML IV SCH ×2 (06:25→18:05)
[2021-09-04] MEDS: ATORVASTATIN 40 MG TAB PO SCH (07:28)
[2021-09-04] MEDS: LOSARTAN POTASSIUM 25 MG TAB PO SCH (07:28)
[2021-09-04] MEDS: MAGNESIUM OXIDE 400 MG TAB PO SCH (07:29)
[2021-09-04] MEDS: ROFLUMILAST 500 MCG TAB PO SCH (07:32)
[2021-09-04] MEDS: ASPIRIN 81 MG ECTAB PO SCH (07:33)
[2021-09-04] MEDS: METOPROLOL SUCC 50MG EXT REL TAB PO SCH (07:34)
[2021-09-04] MEDS: PANTOprazole 40 MG TAB PO SCH (07:34)
[2021-09-04] MEDS: FLUTICASONE/VILANTEROL 100/25MCG 14 PUFFS/INHALER INH SCH (07:37)
[2021-09-04] MEDS: MUPIROCIN 2% OINT 22 GM TUBE EXT SCH ×2 (07:37→20:12)
[2021-09-04 08:44] LABS: Creatinine Clr Calc Pharmacy 100.4 ml/min; Est GFR (African American) 115.6 ml/min; Est GFR (Non-African American) 99.8 ml/min
[2021-09-04] MEDS: DOCUSATE SODIUM 100 MG CAP PO SCH (12:26)
[2021-09-04] MEDS: ENOXAPARIN INJ 40 MG/0.4 ML SYR SQ SCH (15:39)
[2021-09-04] MEDS: oxyCODONE HCL IR 5 MG TAB (IMMEDIATE RELEASE) PO PRN (18:05)
[2021-09-04] MEDS: rOPINIRole HCL 0.25 MG TABLET PO SCH (20:13)
[2021-09-04] MEDS: traMADol HCL 50 MG TABLET PO PRN (21:50)
[2021-09-04] MEDS ORDERED: oxyCODONE HCL IR 5 MG TAB (IMMEDIATE RELEASE) PO STA (22:58)
[2021-09-04] MEDS ORDERED: oxyCODONE HCL IR 5 MG TAB (IMMEDIATE RELEASE) PO PRN (22:59)
[2021-09-04] MEDS: LIDOCAINE 5% 1 PATCH TD SCH (23:22)
--- NOTE | 2021-09-04 23:59 | Hospitalist Progress Note ---
Date of Service September 04, 2021 Assessment & Plan (1) Pneumonia: (2) Chronic respiratory failure with hypoxia and hypercapnia: (3) COPD (chronic obstructive pulmonary disease): Plan: Present on admission with worsening shortness of breath. Possible Health care associated Pneumonia, MRSA Pneumonia In the ED, patient is saturating well on her chronic 2 L of oxygen however VBG showed pH 7.31 and PCO2 100, therefore patient was placed on BiPAP briefly. CTA chest negative for pulmonary embolism however shows Multiple consolidative opacities most prominent in the upper lungs which may represent aspiration and/or pneumonia Nasal MRSA positive Patient is tachycardic (has history of chronic sinus tachycardia), however afebrile and no leukocytosis. Does not appear septic Given history of recent hospitalization, will cover patient with IV Zosyn and vancomycin. Noted positive MRSA nasal swab. S/p Solu-Medrol 40 mg IV in the ED, continue prednisone 40 mg daily Continue routine home COPD medications and inhalers, nebs Sputum cx and blood cx are negative Will complete prednisone 5 days course Continue oxygen supplement (4) Confusion: Plan: Possible related to delirium/steroid No focal neuro deficit on discharge Clinically improved (5) Tachycardia: Plan: History of chronic sinus tachycardia Rate typically controlled on metoprolol succinate 50 mg daily Heart rate likely exacerbated by pneumonia, hypoxia and agitation Continue metoprolol 50mg daily Stable (6) T12 compression fracture: Plan: pain well controleld PRN Tramadol and oxycodone (7) Chronic combined systolic and diastolic CHF (congestive heart failure): Plan: Appears euvolemic, does not take routine diuretics Echo 02/2021 showed EF 40 to 45%, grade 1 diastolic dysfunction Stable (8) Hypertension: Plan: BP has been fluctuated Continue losartan and metoprolol Continue monitor BP (9) DVT prophylaxis: Plan: -SQ Lovenox (10) Discharge planning issues: Plan: -[facility] Home Health has placed phone calls to [facility] for possible rehab placement. Case management, PT/OT eval was ordered. Admission and Anticipated Discharge Date Admission Date: August 29, 2021 Subjective Patient was seen and examined for follow-up of shortness of breath Lying in bed with no acute distress She is getting back to her baseline Denies any worsening shortness of breath, palpitation, dizziness, and fever Review of Systems Review of Systems: All systems reviewed & are unremarkable except as noted in Subjective Physical Exam Physical Exam: General- No acute distress Head- atraumatic Eyes- PERRL, EOMI, ENT- oropharynx clear Neck- supple, no JVD Lungs- +diminished breath sound Heart- regular rhythm; no murmur Abdomen- normal bowel sounds, soft, nontender Extremities- no calf tenderness Neuro- awake; PERRL, EOMI; no facial palsy; no dysarthria, follow commands Skin- warm & dry Results & Data Results & Data ([facility]) Vital Signs (Past 12 Hours) Vital Signs Temp Pulse Resp BP Pulse Ox 09/04/21 21:35 36.8 C 103 H 17 147/75 H 95 09/04/21 14:26 36.9 C 106 H 16 132/79 100 (1) COPD (chronic obstructive pulmonary disease) COPD type: unspecified COPD Qualified Code(s): J44.9 - Chronic obstructive pulmonary disease, unspecified (2) Hypertension Hypertension type: unspecified Qualified Code(s): I10 - Essential (primary) hypertension (3) Pneumonia Laterality: right Lung location: upper lobe of lung Pneumonia type: due to unspecified organism Qualified Code(s): J18.9 - Pneumonia, unspecified organism
[2021-09-05 07:08] LABS: Creatinine Clr Calc Pharmacy 88.3 ml/min; Est GFR (African American) 110.4 ml/min; Est GFR (Non-African American) 95.3 ml/min
[2021-09-05] MEDS: DOCUSATE SODIUM 100 MG CAP PO SCH (09:27)
[2021-09-05] MEDS: LOSARTAN POTASSIUM 25 MG TAB PO SCH (09:44)
[2021-09-05] MEDS: ASPIRIN 81 MG ECTAB PO SCH (09:44)
[2021-09-05] MEDS: FLUTICASONE/VILANTEROL 100/25MCG 14 PUFFS/INHALER INH SCH (09:44)
[2021-09-05] MEDS: ATORVASTATIN 40 MG TAB PO SCH (09:44)
[2021-09-05] MEDS: ROFLUMILAST 500 MCG TAB PO SCH (09:45)
[2021-09-05] MEDS: MAGNESIUM OXIDE 400 MG TAB PO SCH (09:45)
[2021-09-05] MEDS: MUPIROCIN 2% OINT 22 GM TUBE EXT SCH ×2 (09:45→20:05)
[2021-09-05] MEDS: METOPROLOL SUCC 50MG EXT REL TAB PO SCH (09:45)
[2021-09-05] MEDS: PANTOprazole 40 MG TAB PO SCH (09:45)
--- NOTE | 2021-09-05 11:02 | Hospitalist Progress Note ---
Date of Service September 05, 2021 Assessment & Plan (1) Pneumonia: (2) Chronic respiratory failure with hypoxia and hypercapnia: (3) COPD (chronic obstructive pulmonary disease): Plan: This is a 76 y/o female with a PMH of chronic hypoxemic and hypercapnic respira tory failure on 2-3 L of O2 at baseline, COPD, HTN, HLD, CHF, known infrarenal abdominal aortic aneurysm, GERD, fibromyalgia, essential tremor, and hx of left carotid artery dissection who presents ED secondary to worsening of SOB. Present on admission with worsening shortness of breath. Possible Health care associated Pneumonia, MRSA Pneumonia In the ED, patient is saturating well on her chronic 2 L of oxygen however VBG showed pH 7.31 and PCO2 100, therefore patient was placed on BiPAP briefly. CTA chest negative for pulmonary embolism however shows Multiple consolidative opacities most prominent in the upper lungs which may represent aspiration and/or pneumonia Nasal MRSA positive Patient is tachycardic (has history of chronic sinus tachycardia), however afebrile and no leukocytosis. Does not appear septic Given history of recent hospitalization, will cover patient with IV Zosyn and vancomycin. Noted positive MRSA nasal swab. S/p Solu-Medrol 40 mg IV in the ED, continue prednisone 40 mg daily Continue routine home COPD medications and inhalers, nebs Sputum cx and blood cx are negative Will complete prednisone 5 days course Antibiotics completed Continue oxygen supplement (4) Confusion: Plan: possibly related to delirium/steroid/hypercarbia ordered vbg, but pt refused monitor closely will d/c oxy and tramadol, pt tolerated norco last admission, will change to norco for severe pain nursing instructed to avoid narcotics while confused reorient frequently, prn IM zyprexa if needed (5) Tachycardia: Plan: History of chronic sinus tachycardia Rate typically controlled on metoprolol succinate 50 mg daily Heart rate likely exacerbated by pneumonia, hypoxia and agitation Continue metoprolol 50mg daily - elevated this morning, pt refusing medications (6) T12 compression fracture: Plan: change prn tramadol/oxy to [place] pt tolerated norco last admission (7) Chronic combined systolic and diastolic CHF (congestive heart failure): Plan: Appears euvolemic, does not take routine diuretics Echo 02/2021 showed EF 40 to 45%, grade 1 diastolic dysfunction (8) Hypertension: Plan: BP labile, 145/72 currently Continue losartan and metoprolol Continue monitor BP, pt currently refusing meds (9) DVT prophylaxis: Plan: SQ Lovenox (10) Discharge planning issues: Plan: Inpt rehab/SNF recommended, not medically stable for discharge due to confusion PCP: Paige Bartholomew FULL CODE Pt was seen and examined in collaboration with DR. Jaquez, please see addendum Admission and Anticipated Discharge Date Admission Date: August 29, 2021 Subjective Patient was seen and examined in room 305. Follow-up COPD exacerbation and pneumonia. Patient is agitated and states, "leave me alone." She appears confused and refuses to answer basic questions. She does deny pain, chest pain, shortness of breath, nausea or vomiting, but she reiterates, "can't you just leave me be." Per nursing staff she has been agitated all morning and has refused to take meds or be evaluated by nursing staff. She did tolerate half of her breakfast this morning. Review of Systems Review of Systems: Unobtainable due to cognitive status Physical Exam Physical Exam: Gen: Elderly female, lying in bed, ANO x1, agitated, NAD HEENT: Normocephalic, atraumatic, conjunctivae moist, sclerae anicteric, mucous membranes moist. Lun L of O2 via NC, no acute respiratory distress, normal respirations, refused lung exam Heart: Refused auscultation, pulse regular rate and rhythm Abdomen: Soft, NT, ND +BS x 4 Extremities: No edema Skin: Warm, no rash, negative turgor. Results & Data Results & Data ([facility]) Vital Signs (Past 12 Hours) Vital Signs Temp Pulse Resp BP Pulse Ox 09/05/21 07:32 36.6 C 117 H 16 145/72 H 95 Laboratory Results [facility] 09/05/21 06:03 Creatinine 0.46 L Medications Administered Current Inpatient Medications Acetaminophen (Acetaminophen 325 Mg Tab) 650 mg PO Q4H PRN PRN Reason: Pain or Fever Stop: 09/28/21 14:44 Last Admin: 09/03/21 20:08 Dose: 650 mg Documented by: Hydrocodone Bitart/Acetaminophen (Hydrocodone/Acetamophen 5/325mg Tab) 1 tab PO Q4H PRN PRN Reason: Moderate Pain Stop: 09/19/21 10:45 Aspirin (Aspirin 81 Mg Ectab) 81 mg PO QAM [facility] Stop: 09/29/21 08:59 Last Admin: 09/05/21 09:44 Dose: Not Given Documented by: Atorvastatin Calcium (Atorvastatin 40 Mg Tab) 40 mg PO QAM [facility] Stop: 09/29/21 08:59 Last Admin: 09/05/21 09:44 Dose: Not Given Documented by: Diclofenac Sodium (Diclofenac Sod 1% Gel 100 Gm Tube) 2 gm EXT QID PRN PRN Reason: joint pain Stop: 10/04/21 08:59 Last Admin: 09/03/21 22:36 Dose: 2 gm Documented by: Docusate Sodium (Docusate Sodium 100 Mg Cap) 100 mg PO QAM [facility] Stop: 09/29/21 08:59 Last Admin: 09/05/21 09:27 Dose: Not Given Documented by: Enoxaparin Sodium (Enoxaparin Inj 40 Mg/0.4 Ml Syr) 40 mg SQ Q24H [facility] Stop: 09/28/21 14:59 Last Admin: 09/04/21 15:39 Dose: Not Given Documented by: Fluticasone/Vilanterol (Fluticasone/Vilanterol 100/25mcg 14 Puffs/Inhaler) 1 puffs INH DAILY [facility] Stop: 09/29/21 08:59 Last Admin: 09/05/21 09:44 Dose: Not Given Documented by: Ipratropium [place] (Ipratropium [place] Neb Soln 0.02% 2.5 Ml Vial) 0.5 mg INH Q6R PRN PRN Reason: Shortness Of Breath Or Wheezing Stop: 09/29/21 09:59 Levalbuterol HCl (Levalbuterol 1.25mg/0.5ml Neb) 1.25 mg INH Q6R PRN PRN Reason: Shortness Of Breath Or Wheezing Stop: 09/29/21 09:59 Lidocaine (Lidocaine 5% 1 Patch) 1 patch TD HS [facility] Stop: 10/04/21 23:14 Last Admin: 09/04/21 23:22 Dose: 1 patch Documented by: Losartan Potassium (Losartan Potassium 25 Mg Tab) 25 mg PO QAM [facility] Stop: 09/29/21 08:59 Last Admin: 09/05/21 09:44 Dose: Not Given Documented by: Magnesium Oxide (Magnesium Oxide 400 Mg Tab) 400 mg PO QAM [facility] Stop: 09/29/21 08:59 Last Admin: 09/05/21 09:45 Dose: Not Given Documented by: Metoprolol Succinate (Metoprolol Succ 50mg Ext Rel Tab) [facility] Stop: 10/01/21 05:39 Last Admin: 09/05/21 09:45 Dose: Not Given Documented by: Miscellaneous (Remove Lidoderm Patch) 1 ea N/A [facility] Stop: 10/05/21 09:59 Last Admin: 09/05/21 09:45 Dose: Not Given Documented by: Mupirocin (Mupirocin 2% Oint 22 Gm Tube) 1 appln EXT BID [facility] Stop: 09/28/21 20:59 Last Admin: 09/05/21 09:45 Dose: Not Given Documented by: Olanzapine (Olanzapine 10 Mg/2.1 Ml Sdv) 2.5 mg IM Q4H PRN PRN Reason: Anxiety/Agitation Stop: 09/30/21 20:15 Last Admin: 09/03/21 19:47 Dose: 2.5 mg Documented by: Ondansetron HCl (Ondansetron Inj 2 Mg/Ml 2 Ml Vial) 4 mg IV Q8H PRN PRN Reason: Nausea Stop: 10/01/21 07:54 Last Admin: 09/01/21 08:27 Dose: 4 mg Documented by: Pantoprazole Sodium (Pantoprazole 40 Mg Tab) 40 [facility] Stop: 09/29/21 08:59 Last Admin: 09/05/21 09:45 Dose: Not Given Documented by: Roflumilast (Roflumilast 500 Mcg Tab) [address] [facility] Stop: 09/29/21 08:59 Last Admin: 09/05/21 09:45 Dose: Not Given Documented by: Ropinirole HCl (Ropinirole Hcl 0.25 Mg Tablet) 0.25 mg PO [facility] Stop: 09/28/21 20:59 Last Admin: 09/04/21 20:13 Dose: 0.25 mg Documented by: (1) Pneumonia Laterality: right Lung location: upper lobe of lung Pneumonia type: due to unspecified organism Qualified Code(s): J18.9 - Pneumonia, unspecified organism (2) COPD (chronic obstructive pulmonary disease) COPD type: unspecified COPD Qualified Code(s): J44.9 - Chronic obstructive pulmonary disease, unspecified (3) Hypertension Hypertension type: unspecified Qualified Code(s): I10 - Essential (primary) hypertension
[2021-09-05] MEDS: HYDROCODONE/ACETAMOPHEN 5/325MG TAB PO PRN (16:01)
[2021-09-05] MEDS: ENOXAPARIN INJ 40 MG/0.4 ML SYR SQ SCH (16:02)
[2021-09-05] MEDS: OLANZapine 10 MG/2.1 ML SDV IM PRN (17:26)
[2021-09-05 18:38] LABS: Base Excess VBG 20.6 mEq/L; Oxygen Saturation VBG 83.2 %; pH VBG 7.33 (7.36-7.41)
[2021-09-05] MEDS: LIDOCAINE 5% 1 PATCH TD SCH (20:05)
[2021-09-05] MEDS: rOPINIRole HCL 0.25 MG TABLET PO SCH (20:05)
[2021-09-06] MEDS: HYDROCODONE/ACETAMOPHEN 5/325MG TAB PO PRN ×3 (00:45→21:07)
[2021-09-06] MEDS: PANTOprazole 40 MG TAB PO SCH (09:01)
[2021-09-06] MEDS: MAGNESIUM OXIDE 400 MG TAB PO SCH (09:01)
[2021-09-06] MEDS: ASPIRIN 81 MG ECTAB PO SCH (09:01)
[2021-09-06] MEDS: FLUTICASONE/VILANTEROL 100/25MCG 14 PUFFS/INHALER INH SCH (09:01)
[2021-09-06] MEDS: MUPIROCIN 2% OINT 22 GM TUBE EXT SCH ×2 (09:01→21:08)
[2021-09-06] MEDS: ATORVASTATIN 40 MG TAB PO SCH (09:01)
[2021-09-06] MEDS: DOCUSATE SODIUM 100 MG CAP PO SCH (09:01)
[2021-09-06] MEDS: ROFLUMILAST 500 MCG TAB PO SCH (09:02)
--- NOTE | 2021-09-06 09:29 | Hospitalist Progress Note ---
Date of Service September 06, 2021 Assessment & Plan (1) Pneumonia: (2) Chronic respiratory failure with hypoxia and hypercapnia: (3) COPD (chronic obstructive pulmonary disease): Plan: This is a 76 y/o female with a PMH of chronic hypoxemic and hypercapnic respira tory failure on 2-3 L of O2 at baseline, COPD, HTN, HLD, CHF, known infrarenal abdominal aortic aneurysm, GERD, fibromyalgia, essential tremor, and hx of left carotid artery dissection who presents ED secondary to worsening of SOB. COPD EXAAC Chronic respiratory failure with chronic hypoxia and hypercapnia Present on admission with worsening shortness of breath. Possible Health care associated Pneumonia, MRSA Pneumonia In the ED, patient is saturating well on her chronic 2 L of oxygen however VBG showed pH 7.31 and PCO2 100, therefore patient was placed on BiPAP briefly. CTA chest negative for pulmonary embolism however shows Multiple consolidative opacities most prominent in the upper lungs which may represent aspiration and/or pneumonia Nasal MRSA positive Patient is tachycardic (has history of chronic sinus tachycardia), however afebrile and no leukocytosis. Does not appear septic Given history of recent hospitalization, will cover patient with IV Zosyn and vancomycin. Noted positive MRSA nasal swab. S/p Solu-Medrol 40 mg IV in the ED, completed prednisone 40 mg daily Continue routine home COPD medications and inhalers, nebs Sputum cx and blood cx are negative Antibiotics completed Continue oxygen supplement Patient with chronic hypercarbia, refusing BiPAP (4) Confusion: Plan: possibly related to delirium/steroid/hypercarbia Likely multifactorial VBG CO2 98, corrected 93 will d/c oxy and tramadol, pt tolerated norco last admission, will change to norco for severe pain Reorient frequently She did receive IM Zyprexa x1 yesterday Labs done today reveal mild elevation in ammonia and hypercarbia give lactulose 30g x 1 now BIPAP ordered for HS, discussed with pt who is refusing BIPAP despite appro priate education confusion mildly improved this afternoon Refusing CT head (5) Tachycardia: Plan: History of chronic sinus tachycardia Rate typically controlled on metoprolol succinate 50 mg daily Heart rate likely exacerbated by pneumonia, hypoxia and agitation Continue metoprolol 50mg daily - elevated this morning, continues to refuse medications (6) T12 compression fracture: Plan: change prn tramadol/oxy to [place] pt tolerated norco last admission (7) Chronic combined systolic and diastolic CHF (congestive heart failure): Plan: Appears euvolemic, does not take routine diuretics Echo 02/2021 showed EF 40 to 45%, grade 1 diastolic dysfunction (8) Hypertension: Plan: BP labile, 158/84 currently Continue losartan and metoprolol Continue monitor BP, pt currently refusing meds (9) DVT prophylaxis: Plan: SQ Lovenox (10) Discharge planning issues: Plan: Inpt rehab/SNF recommended, not medically stable for discharge due to confusion PCP: Paige Bartholomew FULL CODE Pt was seen and examined in collaboration with DR. Jaquez, please see addendum Admission and Anticipated Discharge Date Admission Date: August 29, 2021 Supervising Physician Co-Signing Physician Notes Patient seen and examined by me and agreed with Karen PETERSEN exam assessment and plan. Patient continued to be confused. Her confusion might be multifactorial due to acute on chronic hypercapnic respiratory failure, steroid and hospital delirium. We will try BiPAP at night. No focal neuro deficit on exam. Tramadol discontinued due to confusion. Consider CT head but patient has been refused it. Continue monitor closely. MD Gisele Subjective Patient was seen and examined in room 305. Follow-up COPD exacerbation and pneumonia. Patient is less agitated today, but remains confused. She wishes to be, "left alone." She asked "why do you have to ask all his questions this early." She denies pain, chest pain, shortness of breath, cough, nausea, vomiting, abdominal pain. She feels her breathing is at baseline. ROS limited due to confusion. Review of Systems Review of Systems: Unobtainable due to cognitive status Physical Exam Physical Exam: Gen: Elderly female, lying in bed, ANO x1, NAD HEENT: Normocephalic, atraumatic, conjunctivae moist, sclerae anicteric, mucous membranes moist. Lun L of O2 via NC, no acute respiratory distress, normal respirations, CTAB with decreased breath sounds at bases Heart: RRR, nml s1/s2 Abdomen: Soft, NT, ND +BS x 4 Extremities: No edema Skin: Warm, no rash, negative turgor. Results & Data Results & Data ([facility]) Vital Signs (Past 12 Hours) Vital Signs Temp Pulse Resp BP Pulse Ox 09/06/21 07:19 35.9 C L 115 H 16 158/84 H 92 09/06/21 00:05 17 Laboratory Results Labs ordered pt currently refusing Medications Administered Current Inpatient Medications Acetaminophen (Acetaminophen 325 Mg Tab) 650 mg PO Q4H PRN PRN Reason: Pain or Fever Stop: 09/28/21 14:44 Last Admin: 09/03/21 20:08 Dose: 650 mg Documented by: Hydrocodone Bitart/Acetaminophen (Hydrocodone/Acetamophen 5/325mg Tab) 1 tab PO Q4H PRN PRN Reason: Moderate Pain Stop: 09/19/21 10:45 Last Admin: 09/06/21 00:45 Dose: 1 tab Documented by: Aspirin (Aspirin 81 Mg Ectab) 81 mg PO QAM [facility] Stop: 09/29/21 08:59 Last Admin: 09/06/21 09:01 Dose: Not Given Documented by: Atorvastatin Calcium (Atorvastatin 40 Mg Tab) 40 mg PO QAM [facility] Stop: 09/29/21 08:59 Last Admin: 09/06/21 09:01 Dose: Not Given Documented by: Diclofenac Sodium (Diclofenac Sod 1% Gel 100 Gm Tube) 2 gm EXT QID PRN PRN Reason: joint pain Stop: 10/04/21 08:59 Last Admin: 09/03/21 22:36 Dose: 2 gm Documented by: Docusate Sodium (Docusate Sodium 100 Mg Cap) 100 mg PO QAM [facility] Stop: 09/29/21 08:59 Last Admin: 09/06/21 09:01 Dose: Not Given Documented by: Enoxaparin Sodium (Enoxaparin Inj 40 Mg/0.4 Ml Syr) 40 mg SQ Q24H [facility] Stop: 09/28/21 14:59 Last Admin: 09/05/21 16:02 Dose: Not Given Documented by: Fluticasone/Vilanterol (Fluticasone/Vilanterol 100/25mcg 14 Puffs/Inhaler) 1 puffs INH DAILY [facility] Stop: 09/29/21 08:59 Last Admin: 09/06/21 09:01 Dose: Not Given Documented by: Ipratropium [place] (Ipratropium [place] Neb Soln 0.02% 2.5 Ml Vial) 0.5 mg INH Q6R PRN PRN Reason: Shortness Of Breath Or Wheezing Stop: 09/29/21 09:59 Levalbuterol HCl (Levalbuterol 1.25mg/0.5ml Neb) 1.25 mg INH Q6R PRN PRN Reason: Shortness Of Breath Or Wheezing Stop: 09/29/21 09:59 Lidocaine (Lidocaine 5% 1 Patch) 1 patch TD HS [facility] Stop: 10/04/21 23:14 Last Admin: 09/05/21 20:05 Dose: Not Given Documented by: Losartan Potassium (Losartan Potassium 25 Mg Tab) [facility] Stop: 09/29/21 08:59 Last Admin: 09/05/21 09:44 Dose: Not Given Documented by: Magnesium Oxide (Magnesium Oxide 400 Mg Tab) 400 mg PO [facility] Stop: 09/29/21 08:59 Last Admin: 09/06/21 09:01 Dose: Not Given Documented by: Metoprolol Succinate (Metoprolol Succ 50mg Ext Rel Tab) 50 mg [facility] Stop: 10/01/21 05:39 Last Admin: 09/05/21 09:45 Dose: Not Given Documented by: Miscellaneous (Remove Lidoderm Patch) 1 ea N/A [facility] Stop: 10/05/21 09:59 Last Admin: 09/06/21 09:02 Dose: Not Given Documented by: Mupirocin (Mupirocin 2% Oint 22 Gm Tube) 1 appln EXT BID [facility] Stop: 09/28/21 20:59 Last Admin: 09/06/21 09:01 Dose: Not Given Documented by: Olanzapine (Olanzapine 10 Mg/2.1 Ml Sdv) 2.5 mg IM Q4H PRN PRN Reason: Anxiety/Agitation Stop: 09/30/21 20:15 Last Admin: 09/05/21 17:26 Dose: 2.5 mg Documented by: Ondansetron HCl (Ondansetron Inj 2 Mg/Ml 2 Ml Vial) 4 mg IV Q8H PRN PRN Reason: Nausea Stop: 10/01/21 07:54 Last Admin: 09/01/21 08:27 Dose: 4 mg Documented by: Pantoprazole Sodium (Pantoprazole 40 Mg Tab) 40 mg PO QAM [facility] Stop: 09/29/21 08:59 Last Admin: 09/06/21 09:01 Dose: Not Given Documented by: Roflumilast (Roflumilast 500 Mcg Tab) 250 mcg PO QAM [facility] Stop: 09/29/21 08:59 Last Admin: 09/06/21 09:02 Dose: Not Given Documented by: Ropinirole HCl (Ropinirole Hcl 0.25 Mg Tablet) 0.25 mg PO HS [facility] Stop: 09/28/21 20:59 Last Admin: 09/05/21 20:05 Dose: Not Given Documented by: (1) COPD (chronic obstructive pulmonary disease) COPD type: unspecified COPD Qualified Code(s): J44.9 - Chronic obstructive pulmonary disease, unspecified (2) Hypertension Hypertension type: unspecified Qualified Code(s): I10 - Essential (primary) hypertension (3) Pneumonia Laterality: right Lung location: upper lobe of lung Pneumonia type: due to unspecified organism Qualified Code(s): J18.9 - Pneumonia, unspecified organism
[2021-09-06 11:49] LABS: Appearance Urine Clear (Clear); Bacteria Urine Automated Negative (Negative); Bilirubin Urine Negative (Negative); Blood Urine Negative (Negative); Color Urine Yellow; Epithelial Cell Urine Auto >30 /lpf (0-5); Glucose Urine UA Negative (Negative); Ketones Urine Negative (Negative); Leukocyte Esterase Urine Trace (Negative); Nitrite Urine Negative (Negative); Protein Urine Negative (Negative); RBC Urine Automated 0-4 /hpf (0-4); Specific Gravity Urine 1.008 (1.000-1.030); Urobilinogen Urine Negative (Negative)
[2021-09-06] MEDS: LOSARTAN POTASSIUM 25 MG TAB PO SCH (11:54)
[2021-09-06] MEDS: METOPROLOL SUCC 50MG EXT REL TAB PO SCH (11:54)
[2021-09-06 12:58] LABS: HCO3 VBG 50 mmol/L; PCO2 VBG 96 mmHg (38-50); PO2 VBG 30 mmHg; pH VBG 7.33 (7.36-7.41)
[2021-09-06 13:00] LABS: Oxygen Saturation VBG < 60.0 %
[2021-09-06 13:28] LABS: Hematocrit (blood only) 36.2 % (37-47); Mean Corpuscular Hemoglobin 26.2 pg (25-34); Mean Corpuscular Hgb Conc 27.6 g/dL (32-36); Mean Platelet Volume 11.1 fL (7.4-10.4); Platelet Count 181 K/uL (130-400); RDW Coefficient of Variation 13.9 % (11.5-14.5); RDW Standard Deviation 48.4 fL (36.4-46.3); Red Blood Count 3.81 M/uL (4.2-5.4); White Blood Count 6.17 K/uL (4.8-10.8)
[2021-09-06 13:54] LABS: Albumin Globulin Ratio 0.6 (0.9-2); Albumin Level 2.6 gm/dl (3.4-5.0); BUN Creatinine Ratio 17.5 (10-20); Bilirubin,Total 0.5 mg/dl (0.2-1); Calcium 9.7 mg/dl (8.5-10.1); Creatinine Clr Calc Pharmacy 79.8 ml/min; Est GFR (African American) 106.7 ml/min; Est GFR (Non-African American) 92.1 ml/min; Globulin 4.2 gm/dl (2.5-4.0); Potassium 3.5 mmol/L (3.5-5.1); Total Protein 6.8 gm/dl (6.4-8.2)
[2021-09-06 14:04] LABS: Basophils # (auto) 0.01 K/uL (0-0.2); Basophils % (auto) 0.2 %; Eosinophils # (auto) 0.38 K/uL (0-0.5); Eosinophils % (auto) 6.2 %; Immature Granulocytes # (auto) 0.01 K/uL (0.00-0.02); Immature Granulocytes % (auto) 0.2 %; Lymphocytes % (auto) 6.5 %; Monocytes # (auto) 0.92 K/uL (0.11-0.59); Monocytes % (auto) 14.9 %; Neutrophils # (auto) 4.45 K/uL (1.4-6.5)
[2021-09-06] MEDS ORDERED: LACTULOSE SYRUP 30 GM/45 ML UDP PO STA (14:13)
[2021-09-06] MEDS: ENOXAPARIN INJ 40 MG/0.4 ML SYR SQ SCH (15:29)
[2021-09-06] MEDS: LIDOCAINE 5% 1 PATCH TD SCH (21:07)
[2021-09-06] MEDS: rOPINIRole HCL 0.25 MG TABLET PO SCH (21:07)
[2021-09-07] MEDS: ATORVASTATIN 40 MG TAB PO SCH (07:51)
[2021-09-07] MEDS: LOSARTAN POTASSIUM 25 MG TAB PO SCH (07:51)
[2021-09-07] MEDS: ASPIRIN 81 MG ECTAB PO SCH (07:51)
[2021-09-07] MEDS: PANTOprazole 40 MG TAB PO SCH (07:52)
[2021-09-07] MEDS: MAGNESIUM OXIDE 400 MG TAB PO SCH (07:52)
[2021-09-07] MEDS: METOPROLOL SUCC 50MG EXT REL TAB PO SCH (07:52)
[2021-09-07] MEDS: ROFLUMILAST 500 MCG TAB PO SCH (07:52)
[2021-09-07] MEDS: MUPIROCIN 2% OINT 22 GM TUBE EXT SCH ×2 (07:53→22:41)
[2021-09-07] MEDS: FLUTICASONE/VILANTEROL 100/25MCG 14 PUFFS/INHALER INH SCH (07:53)
[2021-09-07] MEDS: DOCUSATE SODIUM 100 MG CAP PO SCH (09:36)
--- NOTE | 2021-09-07 11:00 | Hospitalist Progress Note ---
Date of Service September 07, 2021 Assessment & Plan (1) Pneumonia: (2) Chronic respiratory failure with hypoxia and hypercapnia: (3) COPD (chronic obstructive pulmonary disease): Plan: This is a 76 y/o female with a PMH of chronic hypoxemic and hypercapnic respira tory failure on 2-3 L of O2 at baseline, COPD, HTN, HLD, CHF, known infrarenal abdominal aortic aneurysm, GERD, fibromyalgia, essential tremor, and hx of left carotid artery dissection who presents ED secondary to worsening of SOB. COPD EXAAC Chronic respiratory failure with chronic hypoxia and hypercapnia Present on admission with worsening shortness of breath. Possible Health care associated Pneumonia, MRSA Pneumonia In the ED, patient is saturating well on her chronic 2 L of oxygen however VBG showed pH 7.31 and PCO2 100, therefore patient was placed on BiPAP briefly. CTA chest negative for pulmonary embolism however shows Multiple consolidative opacities most prominent in the upper lungs which may represent aspiration and/or pneumonia Nasal MRSA positive Patient is tachycardic (has history of chronic sinus tachycardia), however afebrile and no leukocytosis. Does not appear septic Given history of recent hospitalization, will cover patient with IV Zosyn and vancomycin. Noted positive MRSA nasal swab. S/p Solu-Medrol 40 mg IV in the ED, completed prednisone 40 mg daily Completed Steroids, Antibiotics Sputum cx and blood cx are negative Continue oxygen supplement Patient with chronic hypercarbia; however worsening Pt more lethargic this morning - finally able to get pt to tolerate Bipap - will reassess frequently Refused Head CT yesterday, order head CT today and see if pt will allow/tolerate (4) Confusion: Plan: possibly related to delirium/steroid/hypercarbia Likely multifactorial VBG CO2 98, ABG 97 will d/c oxy and tramadol, pt tolerated norco last admission but given resp status d/c norco at this time Reorient frequently PRN zyprexa - last received 09/05, less agitated more confused and lethargic Labs done today reveal mild elevation in ammonia and hypercarbia Pt refused Lactulose yesterday 09/07, was able to have nurse administer today 09/08 Pt had been refusing Bipap; however finally agreeable today Discussed with son Mono on 09/06/21 regarding condition of Mother. He is POA. Discussed regarding her refusal of treatment. He encourages full code status. Discussed will do everything possible; however if continues to refuse care may need to discuss palliative evaluation Pt allowed staff to place BIPAP on - will re eval frequently Discussed with pulm who will see her tomorrow - states this is a chronic problem, will continue to pursue bipap therapy; if minimal improvement will need to discuss palliative/hospice with family Hyperammonemia pt refused lactulose yesterday was agreeable to lactulose today, NH3 47 repeat in a.m. Hypercalcemia corrected 11.4 on high dose vit D supplement as outpt obtain pth, vit D level, pthp, tsh 0.331 09/06 (5) Tachycardia: Plan: History of chronic sinus tachycardia Rate typically controlled on metoprolol succinate 50 mg daily Heart rate likely exacerbated by hypoxia and agitation Continue metoprolol 50mg daily - continues to refuse medications, but staff able to get in yesterday (6) T12 compression fracture: Plan: Pt previously tolerated norco d/c for now given current resp status/hypercarbia (7) Chronic combined systolic and diastolic CHF (congestive heart failure): Plan: Appears euvolemic, does not take routine diuretics Echo 02/2021 showed EF 40 to 45%, grade 1 diastolic dysfunction (8) Hypertension: Plan: BP labile, Continue losartan and metoprolol Continue monitor BP, pt currently refusing meds (9) DVT prophylaxis: Plan: SQ Lovenox (10) Discharge planning issues: Plan: Inpt rehab/SNF recommended, not medically stable for discharge due to confusion PCP: Paige Bartholomew FULL CODE Pt was seen and examined in collaboration with DR. Nye, please see addendum Discuss with Son Mono, he agrees with above. Admission and Anticipated Discharge Date Admission Date: August 29, 2021 Supervising Physician Co-Signing Physician Notes Patient seen and examined by me as detailed by Karen Howard PA-C. Patient's altered mental status could be multifactorial including acute on chronic hypercapnic respiratory failure, hyperammonemia, ?delirium Patient has history of noncompliance with BIPAP. Had declined CT head but finally agreed today. CT head did not show any acute abnormality. We will continue BiPAP. Continue to try to give lactulose p.o. If refuses, would try [place]. We will need palliative consult for goals of care. Appreciate enterprise analyst recommendation if possible Agree with other plans as detailed by Karen Singh PA-C Subjective Patient was seen and examined in room 305. Follow-up COPD exacerbation and pneumonia. Patient is drowsy and minimally responsive to verbal and tactile stimuli. ROS unobtainable due to current cognition. Review of Systems Review of Systems: All systems reviewed & are unremarkable except as noted in HPI & below Physical Exam Physical Exam: Gen: Elderly female, lying in bed, Drowsy, lethargic but arousable to verbal/tactile stimuli, no meaningful conversation, NAD HEENT: Normocephalic, atraumatic, conjunctivae moist, sclerae anicteric, mucous membranes moist. Lung: + BIPAP, no acute respiratory distress, normal respirations, CTAB with decreased breath sounds at bases Heart: tachycardic, nml s1/s2 Abdomen: Soft, NT, ND +BS x 4 Extremities: No edema Skin: Warm, no rash, negative turgor. Results & Data Results & Data ([facility]) Vital Signs (Past 12 Hours) Vital Signs Temp Pulse Resp BP Pulse Ox 09/07/21 07:28 36.8 C 98 H 16 131/79 100 Laboratory Results Short CBC 09/06/21 Range/Units 12:30 WBC 6.17 (4.8-10.8) K/uL Hgb 10.0 L (12.0-16.0) g/dL Hct 36.2 L (37-47) % Plt Count 181 (130-400) K/uL BMP 09/06/21 12:30 Sodium 143 Potassium 3.5 Chloride 92 L Carbon Dioxide 52 H* BUN 9 Creatinine 0.51 L Glucose 148 H Calcium 9.7 Liver Function 09/06/21 Range/Units 12:30 Total Bilirubin 0.5 (0.2-1) mg/dl AST 8 L (15-37) U/L ALT 14 (12-78) U/L Alkaline Phosphatase 80 (45-117) U/L Albumin 2.6 L (3.4-5.0) gm/dl Urine 09/06/21 Range/Units 11:39 Urine Color Yellow Urine Appearance Clear (Clear) Urine pH 8.0 H (4.5-7.5) Ur Specific [place] 1.008 (1.000-1.030) Urine Protein Negative (Negative) Urine Glucose (UA) Negative (Negative) (1) COPD (chronic obstructive pulmonary disease) COPD type: unspecified COPD Qualified Code(s): J44.9 - Chronic obstructive pulmonary disease, unspecified (2) Hypertension Hypertension type: unspecified Qualified Code(s): I10 - Essential (primary) hypertension (3) Pneumonia Laterality: right Lung location: upper lobe of lung Pneumonia type: due to unspecified organism Qualified Code(s): J18.9 - Pneumonia, unspecified organism
[2021-09-07 11:51] LABS: Albumin Level 2.8 gm/dl (3.4-5.0); BUN Creatinine Ratio 15.1 (10-20); Calcium 10.4 mg/dl (8.5-10.1); Est GFR (African American) 101.7 ml/min; Est GFR (Non-African American) 87.8 ml/min; Potassium 4.3 mmol/L (3.5-5.1)
[2021-09-07 12:02] LABS: Basophils # (auto) 0.01 K/uL (0-0.2); Basophils % (auto) 0.1 %; Eosinophils # (auto) 0.32 K/uL (0-0.5); Eosinophils % (auto) 3.5 %; Hematocrit (blood only) 39.6 % (37-47); Hemoglobin 10.8 g/dL (12.0-16.0); Immature Granulocytes # (auto) 0.03 K/uL (0.00-0.02); Immature Granulocytes % (auto) 0.3 %; Lymphocytes # (auto) 1.16 K/uL (1.2-3.4); Lymphocytes % (auto) 12.7 %; Mean Corpuscular Hemoglobin 26.2 pg (25-34); Mean Corpuscular Hgb Conc 27.3 g/dL (32-36); Mean Corpuscular Volume 95.9 fL (80-100); Mean Platelet Volume 10.6 fL (7.4-10.4); Monocytes # (auto) 1.42 K/uL (0.11-0.59); Monocytes % (auto) 15.6 %; Neutrophils # (auto) 6.16 K/uL (1.4-6.5); Neutrophils % (auto) 67.8 %; Platelet Count 200 K/uL (130-400); RDW Coefficient of Variation 14.1 % (11.5-14.5); RDW Standard Deviation 49.7 fL (36.4-46.3); Red Blood Count 4.13 M/uL (4.2-5.4)
[2021-09-07 12:13] LABS: Albumin Globulin Ratio 0.6 (0.9-2); Bilirubin,Total 0.5 mg/dl (0.2-1); Globulin 4.6 gm/dl (2.5-4.0); Total Protein 7.4 gm/dl (6.4-8.2)
[2021-09-07] MEDS ORDERED: LACTULOSE SYRUP 20 GM/30 ML UDC PO ONE (13:15)
[2021-09-07 15:09] LABS: Base Excess ABG 19.1 mEq/L (-9-1.8); HCO3 ABG 49 mmol/L (19-24); Oxygen Saturation ABG 79.7 % (90-95); PCO2 ABG 97 mmHg (35-46); PO2 ABG 48 mmHg (80-95); pH ABG 7.32 (7.35-7.45)
[2021-09-07] MEDS: ENOXAPARIN INJ 40 MG/0.4 ML SYR SQ SCH (15:09)
[2021-09-07 15:12] LABS: Allen Test Pos (Pos)
[2021-09-07] MEDS ORDERED: UNIT DOSE COMPOUND PR ONE (16:00)
[2021-09-07] MEDS ORDERED: LACTULOSE 200 GM, WATER, STERILE IRRIG 700 ML, BARCODE IDENTIFIER 1 EA PR ONE (16:00)
--- NOTE | 2021-09-07 16:35 | CT Scan Report ---
HEAD CT NONCONTRAST CT DOSE: 1311.46 mGy.cm HISTORY: confusion TECHNIQUE: Multiaxial CT images of the head were performed without the use of intravenous contrast. A utomated exposure control was utilized for this study. A dose lowering technique was utilized adheri ng to the principles of ALARA. Comparison: Head CT 05/27/2021. Findings: The paranasal sinuses and mastoid air cells are clear. Motion artifact. The calvarium and s kull base are intact. The ventricles and sulci are within normal limits. There is no mass, hematoma, midline shift, acute infarct. Mild periventricular white matter hypodensity is nonspecific but favors microvascular ischemic change. This is similar to the prior study. Impression: Mild motion artifact. No definite acute intracranial abnormality. ACT 112: Negative or not required by law. Electronically signed by: Brayan Estrada M.D. 09/07/2021 4:33 PM
[2021-09-07] MEDS: ACETAMINOPHEN 325 MG TAB PO PRN ×2 (16:47→22:41)
[2021-09-07] MEDS: LIDOCAINE 5% 1 PATCH TD SCH (22:40)
[2021-09-07] MEDS: rOPINIRole HCL 0.25 MG TABLET PO SCH (22:41)
[2021-09-08 06:50] LABS: Hematocrit (blood only) 35.8 % (37-47); Hemoglobin 9.8 g/dL (12.0-16.0); Mean Corpuscular Hemoglobin 26.3 pg (25-34); Mean Corpuscular Hgb Conc 27.4 g/dL (32-36); Mean Platelet Volume 10.7 fL (7.4-10.4); Platelet Count 193 K/uL (130-400); RDW Coefficient of Variation 14.1 % (11.5-14.5); RDW Standard Deviation 49.9 fL (36.4-46.3); Red Blood Count 3.73 M/uL (4.2-5.4); White Blood Count 6.31 K/uL (4.8-10.8)
[2021-09-08 07:10] LABS: BUN Creatinine Ratio 23.8 (10-20); Creatinine Clr Calc Pharmacy 90.5 ml/min; Est GFR (African American) 111.2 ml/min; Potassium 4.3 mmol/L (3.5-5.1)
[2021-09-08] MEDS: ROFLUMILAST 500 MCG TAB PO SCH (08:00)
[2021-09-08] MEDS: ATORVASTATIN 40 MG TAB PO SCH (08:00)
[2021-09-08] MEDS: MAGNESIUM OXIDE 400 MG TAB PO SCH (08:00)
[2021-09-08] MEDS: PANTOprazole 40 MG TAB PO SCH (08:00)
[2021-09-08] MEDS: METOPROLOL SUCC 50MG EXT REL TAB PO SCH (08:00)
[2021-09-08] MEDS: LOSARTAN POTASSIUM 25 MG TAB PO SCH (08:00)
[2021-09-08] MEDS: ASPIRIN 81 MG ECTAB PO SCH (08:00)
[2021-09-08] MEDS: DOCUSATE SODIUM 100 MG CAP PO SCH (08:01)
[2021-09-08] MEDS: MUPIROCIN 2% OINT 22 GM TUBE EXT SCH ×2 (08:01→21:30)
[2021-09-08] MEDS: FLUTICASONE/VILANTEROL 100/25MCG 14 PUFFS/INHALER INH SCH (08:01)
--- NOTE | 2021-09-08 08:13 | Pulmonary Consultation ---
Date of Consultation September 08, 2021 Assessment & Plan (1) COPD (chronic obstructive pulmonary disease): COPD type: unspecified COPD Qualified Code(s): J44.9 - Chronic obstructive pulmonary disease, unspecified (2) Chronic respiratory failure with hypoxia and hypercapnia: Impression: 76-year-old female with reported history of severe COPD although I do not have PFTs available. She has chronic hypercarbic respiratory failure which is likely multifactorial and is admitted with pneumonia. She has been on antibiotics but has persistent encephalopathy with elevated PCO2 levels. Her pH is only off by about 0.08 reflecting chronic compensation. The patient has continued difficulty remaining compliant with BiPAP in the outpatient setting and during her hospitalization. Recommendations: 1. Hypercarbic respiratory failure: This is a longstanding issue for the patient and does not appear far off from where she has been previously. Would be very cautious using any medications which potentially could lower respiratory drive. I discussed with the nurse and recommended that she place her back on CPAP given her encephalopathy this morning. There are not great alternatives to noninvasive positive pressure ventilation for this patient and if she elects to not pursue this, the only other option would be tracheostomy which I think would significantly alter the patient's quality of life. She has not been keen on this previously. Again readdressing goals of therapy with patient if possible and with next of kin if the patient is unable to participate in the discussion is strongly recommended. 2. Pneumonia: Agree with antibiotics. Can likely de-escalate to Ceftin and azithromycin or Ceftin doxycycline. Would complete 7 days antimicrobial therapy. Her white count is normal and she is afebrile. The pattern raises the possibility of aspiration especially given the patient's mental status changes. Consideration for follow-up CT scan in 8 to 10 weeks may be appropriate dependin g on goals of therapy 3. COPD: The patient does not appear overtly bronchospastic currently and I do not think additional steroids are needed. Her mental status may preclude use of an inhaler and consideration for transition to nebulized medication may be appropriate. 4. Goals of care: The patient has been seen by palliative care on numerous occasions in the past. If she elects to refuse medications and be noncompliant with BiPAP, would strongly recommend reassessing her CODE STATUS and co nsideration for DNR/DNI status with potential outpatient palliative care. Pulmonary will sign off at this point time. Feel free to contact us if we can be of additional assistance History of Present Illness Attending Physician: Stacey Nye MD History of Present Illness Asked by hospitalist to evaluate this patient with chronic hypercarbic respiratory failure and a longstanding history of noncompliance with noninvasive positive pressure ventilation. History is reviewed from the electronic medical record as the patient is obtunded and unable to provide any history. Patient is a 76-year-old female who was admitted to the hospital August 29. She is chronically hypoxemic and supposed to be on oxygen 3 L/min. She also has hypercarbic respiratory failure with chronically elevated CO2. She follows with HARLEY Chauhan in the outpatient setting. She has a longstanding history of noncompliance with BiPAP despite counseling regarding the importance. She max arently been undergoing evaluation for rehab placement by home health. She has chronic back pain due to compression fractures. She presented with shortness of breath and was diagnosed with pneumonia and treated with cefepime doxycycline nebulizers and Solu-Medrol. Throughout the course of her hospitalization she has not been compliant with BiPAP and has had waxing and waning mental status with chronically elevated CO2. Pulmonary was consulted for additional management. When I assessed the patient she just gotten pain medications. She is obtunded. She is unable to answer questions. She is unable to stay awake long enough to converse. According to the nurse, the patient has been refusing all of her medications with the exception of her pain medications. Allergies Allergy/AdvReac Type Severity Reaction Status Date / Time duloxetine [From Cymbalta] Allergy Mild Rash Verified 08/29/21 10:26 naproxen AdvReac Mild GI SYMPTOMS Verified 08/29/21 10:26 Home Medications Medication Instructions Recorded Confirmed Type atorvastatin 40 mg tablet (Lipitor) 40 mg PO QAM 12/14/18 08/29/21 History losartan 25 mg tablet (Cozaar) 25 mg PO QAM 12/14/18 08/29/21 History magnesium oxide 400 mg PO QAM 02/13/19 08/29/21 History metoprolol succinate 50 mg 50 mg PO QAM 04/22/19 08/29/21 History tablet,extended release 24 hr (Toprol XL) Oxygen Home #1 ea 11/05/19 08/29/21 Rx roflumilast 250 mcg tablet 250 mcg PO QAM #90 tab 06/30/20 08/29/21 Rx (Daliresp) aspirin 81 mg tablet,delayed 81 mg PO QAM 01/19/21 08/29/21 History release (Aspirin Low Dose) multivitamin with minerals-folic 2 tab PO QAM 03/04/21 08/29/21 History acid 200 mcg chewable tablet (Multivitamin Gummies) ipratropium 0.5 mg-albuterol 3 mg 3 ml INHALATION Q4H PRN 03/22/21 08/29/21 History (2.5 mg base)/3 mL nebulization soln albuterol sulfate 90 mcg/actuation 2 puff INHALATION QID PRN #8.5 g 05/05/21 08/29/21 Rx aerosol inhaler (Ventolin HFA) budesonide-formoterol HFA 160 2 puff INH BID 05/27/21 08/29/21 History mcg-4.5 mcg/actuation aerosol inhaler (Symbicort) ondansetron 4 mg disintegrating 4 mg TRANSLINGUAL Q6H PRN 05/27/21 08/29/21 History tablet pantoprazole 40 mg tablet,delayed 40 mg PO QAM 05/27/21 08/29/21 History release (Protonix) ropinirole 0.25 mg tablet 0.25 mg PO HS 05/27/21 08/29/21 History ergocalciferol (vitamin D2) 1,250 50,000 unit PO Q7D@2100 #8 cap 07/08/21 08/29/21 Rx mcg (50,000 unit) capsule docusate sodium 100 mg capsule 100 mg PO QAM 08/06/21 08/29/21 History diazepam 2 mg tablet 1 mg PO BID PRN #10 tab 08/17/21 08/29/21 Rx hydrocodone 5 mg-acetaminophen 325 1 tab PO Q4H PRN #20 tab 08/17/21 08/29/21 Rx mg tablet oxycodone 5 mg tablet 5 mg PO Q8H PRN 08/29/21 08/29/21 History Patient History Medical History (Updated 09/02/21 @ 09:23 by Tosin Jaquez MD) Aneurysm of infrarenal abdominal aorta Anxiety BCC (basal cell carcinoma of skin) on left side of face---"s/p MOHS surgery" Chronic combined systolic and diastolic CHF (congestive heart failure) Chronic diastolic heart failure Chronic respiratory failure with hypoxia and hypercapnia Chronic respiratory failure with hypoxia, on home O2 therapy OXYGEN 3L/MIN VIA NC COPD (chronic obstructive pulmonary disease) Degenerative disc disease Dissection of left carotid artery Dyslipidemia Fibromyalgia GERD (gastroesophageal reflux disease) Gram-positive bacteremia Hypertension Obesity hypoventilation syndrome On home oxygen therapy 3L N/C at all times Osteoporosis Sinus tachycardia SOB (shortness of breath) on exertion Tremor of both hands Wrist fracture, left Surgical History History of bilateral cataract extraction History of carpal tunnel surgery of right wrist History of colonoscopy with polypectomy History of esophagogastroduodenoscopy (EGD) History of left breast biopsy benign History of mandibular surgery jaw fx History of repair of left rotator cuff History of repair of right rotator cuff History of tooth extraction S/P Mohs surgery for basal cell carcinoma Status post appendectomy Status post excision of lipoma removed off neck x2 Status post hysterectomy Status post repair of ventral hernia Family History Grandfather (Maternal) Family hx of colon cancer Father FH: kidney cancer Family/Other Family history of diabetes mellitus nephew Other Kidney disease Lung disease No family history of adverse response to anesthesia Social History Smoking Status: Former smoker Tobacco Type: Cigarettes Cigarettes Per Day: unsure when she quit; Smoking End Date: 2003; Second Hand Exposure: No; Do You Dip or Chew Tobacco: No; Tobacco Cessation Education Requested by Patient: No Hx Alcohol Use: No Hx Substance Use: No Preferred Language: [place] Island[place] Communication Ability: Effective 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: No Beliefs That Will Affect Care: None marital status: / Current Living Situation: Alone current occupational status: retired How many Children do You have: 3 Other Information That Helps Us Care for You: No Feels Safe at Home: Yes Safety Concerns: Feels Safe At This Time Assistive Devices: Walker Review of Systems 2 Review of Systems: Unobtainable due to reduced consciousness Physical Exam Constitutional: WD/WN, vitals as above + lethargic Neck: trachea midline, no thyromegaly Respiratory: normal respiratory effort, lungs clear to auscultation Cardiovascular: RRR, no murmur, no edema Gastrointestinal (Abdomen): normal bowel sounds, soft, nontender, no hepatosplenomegaly Musculoskeletal: Extremities: extremities normal to inspection Skin: no rashes, warm and dry Neurologic: Nonfocal exam Lymphatic: no cervical lymphadenopathy Results & Data Results & Data ([facility]) Vital Signs (Past 12 Hours) Vital Signs Temp Pulse Pulse Resp BP BP Pulse Ox 09/08/21 07:34 36.6 C 94 H 16 135/83 100 09/07/21 22:38 37.0 C 97 H 16 124/78 92 09/07/21 22:05 92 H 26 H 114 H Laboratory Results 09/08/21 06:00 09/08/21 06:00 08/29/21 09/01/21 09/05/21 09:31 23:31 18:08 ABG pH 7.39 ABG pCO2 82 H ABG pO2 75 L ABG HCO3 48 H ABG O2 Saturation 94.3 ABG Base Excess 20.0 H VBG pH 7.31 L 7.33 L VBG pCO2 100 H 98 H VBG pO2 33 51 VBG HCO3 49 50 VBG O2 Saturation < 60.0 83.2 VBG Base Excess 18.5 20.6 09/06/21 09/07/21 12:30 14:54 ABG pH 7.32 L ABG pCO2 97 H ABG pO2 48 L ABG HCO3 49 H ABG O2 Saturation 79.7 L ABG Base Excess 19.1 H VBG pH 7.33 L VBG pCO2 96 H VBG pO2 30 VBG HCO3 50 VBG O2 Saturation < 60.0 VBG Base Excess 20.0 Diagnostic Findings Imaging independently reviewed. Medications Administered CT angiogram 08/29/2021 demonstrated some patchy opacities in the bilateral upper lobes. Cardiomegaly again noted. No pleural effusion. Significant ath erosclerotic calcifications were identified. No evidence of PE. PG Care Time/CCT Total # of Minutes Spent Total Time Spent with Patient: Total time spent is greater than 50% in coordination of care (as documented) at patient's floor/unit and/or counseling patient: Coding Level of Care Code 38735 Initial Inpt Care Lvl 3 Diagnoses COPD (chronic obstructive pulmonary disease) J44.9 COPD type: unspecified COPD Chronic respiratory failure with hypoxia and hypercapnia J96.11; J96.12
[2021-09-08] MEDS: ENOXAPARIN INJ 40 MG/0.4 ML SYR SQ SCH (14:54)
--- NOTE | 2021-09-08 16:33 | Hospitalist Progress Note ---
Date of Service September 08, 2021 Assessment & Plan (1) Pneumonia: (2) Chronic respiratory failure with hypoxia and hypercapnia: (3) COPD (chronic obstructive pulmonary disease): Plan: 76 y/o female with a PMH of chronic hypoxemic and hypercapnic respiratory failur e on 2-3 L of O2 at baseline, COPD, HTN, HLD, CHF, known infrarenal abdominal aortic aneurysm, GERD, fibromyalgia, essential tremor, and hx of left carotid artery dissection who presents ED secondary to worsening of SOB. COPD Exacerbation Chronic respiratory failure with chronic hypoxia and hypercapnia Present on admission with worsening shortness of breath. Possible Health care associated Pneumonia, MRSA Pneumonia In the ED, patient is saturating well on her chronic 2 L of oxygen however VBG showed pH 7.31 and PCO2 100, therefore patient was placed on BiPAP briefly. CTA chest negative for pulmonary embolism however shows Multiple consolidative opacities most prominent in the upper lungs which may represent aspiration and/or pneumonia Nasal MRSA positive Patient is tachycardic (has history of chronic sinus tachycardia), however afebrile and no leukocytosis. Does not appear septic Given history of recent hospitalization, will cover patient with IV Zosyn and vancomycin. Noted positive MRSA nasal swab. S/p Solu-Medrol 40 mg IV in the ED, completed prednisone 40 mg daily Completed Steroids, Antibiotics Sputum cx and blood cx are negative Continue oxygen supplement Patient with chronic hypercarbia; however worsening Has been refusing BIPAP (4) Confusion: Plan: Possibly related to hypercarbia Likely multifactorial Patient's confusion waxes and wanes At this time, she is fully alert and oriented and was able to tell me her diagnosis but stated that she does not want us keep pressuring her to use the BIPAP I discussed with patient about need for BIPAP, medications She was not agreeable I called son and spoke to him. I explained that with patient refusing treatment especially when she is awake with good insight, there is not much we can do He stated that patient has living will which he reported was brought to the hospital yesterday. He is not sure what the details are in the living will I reviewed the living will in patient's chart which detailed that she is DNR Code status changed Palliative consult has been ordered to help with GOC (5) Tachycardia: Plan: History of chronic sinus tachycardia Rate typically controlled on metoprolol succinate 50 mg daily Continue metoprolol 50mg daily occasionally refuses meds (6) T12 compression fracture: Plan: Tylenol prn (7) Chronic combined systolic and diastolic CHF (congestive heart failure): Plan: Appears euvolemic, does not take routine diuretics Echo 02/2021 showed EF 40 to 45%, grade 1 diastolic dysfunction (8) Hypertension: Plan: BP labile, Continue losartan and metoprolol Continue monitor BP, pt currently refusing meds (9) DVT prophylaxis: Plan: SQ Lovenox (10) Discharge planning issues: Plan: Inpt rehab/SNF recommended PCP: Paige Bartholomew FULL CODE Admission and Anticipated Discharge Date Admission Date: August 29, 2021 Subjective Patient seen and examined Patient is awake and alert today. Oriented to person and place. She reports some shortness of breath and was not happy that we keep recommending had to use the BiPAP. Patient declined to answer the questions about review of systems Physical Exam Constitutional: + well hydrated; no acute distress Eyes: PERRL, conjunctivae normal, anicteric sclerae ENMT: external ear and nose normal, oropharynx normal Respiratory: Normal respiratory effort On nasal cannula Globally diminished breath sounds Cardiovascular: RRR S1 S2 Gastrointestinal (Abdomen): normal bowel sounds, soft, nontender, no hepatosplenomegaly Musculoskeletal: No pedal edema Neurologic: Patient is alert to person and place. Was initially cooperative with my exam but then declined to answer any more questions or let me complete exam Results & Data Results & Data ([facility]) Vital Signs (Past 12 Hours) Vital Signs Temp Pulse Resp BP Pulse Ox 09/08/21 15:03 36.6 C 105 H 16 143/65 H 96 09/08/21 07:34 36.6 C 94 H 16 135/83 100 Laboratory Results Abnormal lab results 09/08/21 09/08/21 09/08/21 Range/Units 06:00 06:00 06:00 RBC 3.73 L (4.2-5.4) M/uL Hgb 9.8 L (12.0-16.0) g/dL Hct 35.8 L (37-47) % MCHC 27.4 L (32-36) g/dL RDW Std Deviation 49.9 H (36.4-46.3) fL MPV 10.7 H (7.4-10.4) fL Chloride 93 L (98-107) mmol/L Carbon Dioxide 48 H* (21-32) mmol/L Anion Gap -1.0 L (3-11) Creatinine 0.45 L (0.6-1.2) mg/dl BUN/Creatinine Ratio 23.8 H (10-20) Glucose 130 H (70-99) mg/dl Ammonia 58.0 H (11-32) umol/L (1) COPD (chronic obstructive pulmonary disease) COPD type: unspecified COPD Qualified Code(s): J44.9 - Chronic obstructive pulmonary disease, unspecified (2) Hypertension Hypertension type: unspecified Qualified Code(s): I10 - Essential (primary) hypertension (3) Pneumonia Laterality: right Lung location: upper lobe of lung Pneumonia type: due to unspecified organism Qualified Code(s): J18.9 - Pneumonia, unspecified organism
[2021-09-08] MEDS: ACETAMINOPHEN 325 MG TAB PO PRN ×2 (17:44→21:29)
[2021-09-08] MEDS: LACTULOSE SYRUP 20 GM/30 ML UDC PO SCH (21:29)
[2021-09-08] MEDS: LIDOCAINE 5% 1 PATCH TD SCH (21:29)
[2021-09-08] MEDS: rOPINIRole HCL 0.25 MG TABLET PO SCH (21:30)
[2021-09-08] MEDS: oxyCODONE HCL IR 5 MG TAB (IMMEDIATE RELEASE) PO STA ×2 (23:07→23:31)
[2021-09-09] MEDS: ROFLUMILAST 500 MCG TAB PO SCH (07:55)
[2021-09-09] MEDS: ATORVASTATIN 40 MG TAB PO SCH (07:56)
[2021-09-09] MEDS: PANTOprazole 40 MG TAB PO SCH (07:57)
[2021-09-09] MEDS: MAGNESIUM OXIDE 400 MG TAB PO SCH (07:57)
[2021-09-09] MEDS: METOPROLOL SUCC 50MG EXT REL TAB PO SCH (07:57)
[2021-09-09] MEDS: ASPIRIN 81 MG ECTAB PO SCH (07:57)
[2021-09-09] MEDS: LOSARTAN POTASSIUM 25 MG TAB PO SCH (07:58)
[2021-09-09] MEDS: FLUTICASONE/VILANTEROL 100/25MCG 14 PUFFS/INHALER INH SCH (07:59)
[2021-09-09] MEDS: LACTULOSE SYRUP 20 GM/30 ML UDC PO SCH ×2 (07:59→20:34)
[2021-09-09] MEDS: MUPIROCIN 2% OINT 22 GM TUBE EXT SCH ×2 (08:01→20:34)
[2021-09-09] MEDS: DOCUSATE SODIUM 100 MG CAP PO SCH (08:01)
--- NOTE | 2021-09-09 13:04 | Palliative Care Consultation ---
Date of Consultation September 09, 2021 Assessment & Plan (1) Confusion: with hypercapnia (2) Palliative care encounter: Nava has been seen by palliative care in the past. Each time, her son, Segun, indicates that she has a living will which indicates that she would not want CPR/Intubation. He supports this. I talked with Segun about Nava's pattern of rising CO2, hospitalization and difficulty tolerating bipap. He agrees that this is stressful for him and not helpful for Nava. He notes that she did have a less confining mask at some point in the past and wonders if that would help. Unfortunately, she needs bipap with seal which requires confining mask. We did discuss that if she does not want CPR or other aggressive interventions per Segun, we could consider shift of focus to comfort and allow her CO2 to rise but focus treatment on her comfort, knowing that she would from this. He is considering this but is not entirely comfortable with that approach. He wants to review her living will and consider this. Palliative care will follow. Discussed with Dr. Nye. (3) Chronic combined systolic and diastolic CHF (congestive heart failure): (4) Pneumonia: Laterality: right Lung location: upper lobe of lung Pneumonia type: due to unspecified organism Qualified Code(s): J18.9 - Pneumonia, unspecified organism (5) COPD (chronic obstructive pulmonary disease): COPD type: unspecified COPD Qualified Code(s): J44.9 - Chronic obstructive pulmonary disease, unspecified (6) Chronic respiratory failure with hypoxia and hypercapnia: History of Present Illness Reason for Consultation: goals of care Requesting Physician: Dr. Nye Attending Physician: Stacey Nye MD History of Present Illness 76 yo lady with chronic hypercapnic respiratory failure. She has advanced COPD and heart failure with preserved ejection fraction. She is O2 dependent with 3L at baseline and has had frequent hospitalizations for hypercapnia. She was admitted this time with shortness of breath due to pneumonia and was noted to have PCO2 of 100. Unfortunately she has significant anxiety disorder and does not like to wear the bipap mask. This leads to frequent rehospitalization as her CO2 level rises. We have been consulted to assist with goals of care. Currently Nava is resting comfortably in bed. I introduced myself and she began to perseverate "I don't know who you are". She was not able to be redirected. When asked questions about how her breathing was feeling she would go back to "I don't know who you are". Allergies Allergy/AdvReac Type Severity Reaction Status Date / Time duloxetine [From Cymbalta] Allergy Mild Rash Verified 08/29/21 10:26 naproxen AdvReac Mild GI SYMPTOMS Verified 08/29/21 10:26 Home Medications Medication Instructions Recorded Confirmed Type atorvastatin 40 mg tablet (Lipitor) 40 mg PO QAM 12/14/18 08/29/21 History losartan 25 mg tablet (Cozaar) 25 mg PO QAM 12/14/18 08/29/21 History magnesium oxide 400 mg PO QAM 02/13/19 08/29/21 History metoprolol succinate 50 mg 50 mg PO QAM 04/22/19 08/29/21 History tablet,extended release 24 hr (Toprol XL) Oxygen Home #1 ea 11/05/19 08/29/21 Rx roflumilast 250 mcg tablet 250 mcg PO QAM #90 tab 06/30/20 08/29/21 Rx (Daliresp) aspirin 81 mg tablet,delayed 81 mg PO QAM 01/19/21 08/29/21 History release (Aspirin Low Dose) multivitamin with minerals-folic 2 tab PO QAM 03/04/21 08/29/21 History acid 200 mcg chewable tablet (Multivitamin Gummies) ipratropium 0.5 mg-albuterol 3 mg 3 ml INHALATION Q4H PRN 03/22/21 08/29/21 History (2.5 mg base)/3 mL nebulization soln albuterol sulfate 90 mcg/actuation 2 puff INHALATION QID PRN #8.5 g 05/05/21 08/29/21 Rx aerosol inhaler (Ventolin HFA) budesonide-formoterol HFA 160 2 puff INH BID 05/27/21 08/29/21 History mcg-4.5 mcg/actuation aerosol inhaler (Symbicort) ondansetron 4 mg disintegrating 4 mg TRANSLINGUAL Q6H PRN 05/27/21 08/29/21 History tablet pantoprazole 40 mg tablet,delayed 40 mg PO QAM 05/27/21 08/29/21 History release (Protonix) ropinirole 0.25 mg tablet 0.25 mg PO HS 05/27/21 08/29/21 History ergocalciferol (vitamin D2) 1,250 50,000 unit PO Q7D@2100 #8 cap 07/08/21 08/29/21 Rx mcg (50,000 unit) capsule docusate sodium 100 mg capsule 100 mg PO QAM 08/06/21 08/29/21 History diazepam 2 mg tablet 1 mg PO BID PRN #10 tab 08/17/21 08/29/21 Rx hydrocodone 5 mg-acetaminophen 325 1 tab PO Q4H PRN #20 tab 08/17/21 08/29/21 Rx mg tablet oxycodone 5 mg tablet 5 mg PO Q8H PRN 08/29/21 08/29/21 History Patient History Medical History Aneurysm of infrarenal abdominal aorta Anxiety BCC (basal cell carcinoma of skin) on left side of face---"s/p MOHS surgery" Chronic combined systolic and diastolic CHF (congestive heart failure) Chronic diastolic heart failure Chronic respiratory failure with hypoxia and hypercapnia Chronic respiratory failure with hypoxia, on home O2 therapy OXYGEN 3L/MIN VIA NC COPD (chronic obstructive pulmonary disease) Degenerative disc disease Dissection of left carotid artery Dyslipidemia Fibromyalgia GERD (gastroesophageal reflux disease) Gram-positive bacteremia Hypertension Obesity hypoventilation syndrome On home oxygen therapy 3L N/C at all times Osteoporosis Sinus tachycardia SOB (shortness of breath) on exertion Tremor of both hands Wrist fracture, left Surgical History History of bilateral cataract extraction History of carpal tunnel surgery of right wrist History of colonoscopy with polypectomy History of esophagogastroduodenoscopy (EGD) History of left breast biopsy benign History of mandibular surgery jaw fx History of repair of left rotator cuff History of repair of right rotator cuff History of tooth extraction S/P Mohs surgery for basal cell carcinoma Status post appendectomy Status post excision of lipoma removed off neck x2 Status post hysterectomy Status post repair of ventral hernia Family History Grandfather (Maternal) Family hx of colon cancer Father FH: kidney cancer Family/Other Family history of diabetes mellitus nephew Other Kidney disease Lung disease No family history of adverse response to anesthesia Social History Smoking Status: Former smoker Tobacco Type: Cigarettes Cigarettes Per Day: unsure when she quit; Smoking End Date: 2003; Second Hand Exposure: No; Do You Dip or Chew Tobacco: No; Tobacco Cessation Education Requested by Patient: No Hx Alcohol Use: No Hx Substance Use: No Preferred Language: Chinese Communication Ability: Effective 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 Beliefs That Will Affect Care: None marital status: / Current Living Situation: Alone current occupational status: retired How many Children do You have: 3 Other Information That Helps Us Care for You: No Feels Safe at Home: Yes Safety Concerns: Feels Safe At This Time Assistive Devices: Oxygen - Continuous Review of Systems Review of Systems: Unobtainable due to cognitive status [place] Symptom Assessment Scale Pain by observation 0/3 Dyspnea by observation 0/3 Palliative Performance Score 50% Physical Exam Constitutional: + obese; no acute distress Respiratory: normal respiratory effort; no labored breathing Gastrointestinal (Abdomen): Inspection/Auscultation: + significant pannus Skin: warm and dry Neurologic: Speech / Cognition: + abnormal cognition Psychiatric: Affect: + anxious affect Results & Data ([facility]) Vital Signs (Past 12 Hours) Vital Signs Temp Pulse Resp BP Pulse Ox 09/09/21 07:35 97.9 F 99 H 16 146/78 H 93 PG Care Time/CCT Total # of Minutes Spent Total Time Spent: 65 Total Time Spent with Patient: Total time spent is greater than 50% in coordination of care (as documented) at patient's floor/unit and/or counseling patient: goals of care, family education and support, coordination of care Coding Level of Care Code 18451 Initial Inpt Care Lvl 2 Diagnoses Confusion R41.0 Palliative care encounter Z51.5 Chronic combined systolic and diastolic CHF (congestive heart failure) I50.42 Pneumonia J18.9 Laterality: right Lung location: upper lobe of lung Pneumonia type: due to unspecified organism COPD (chronic obstructive pulmonary disease) J44.9 COPD type: unspecified COPD Chronic respiratory failure with hypoxia and hypercapnia J96.11; J96.12
[2021-09-09 13:24] LABS: Hematocrit (blood only) 37.5 % (37-47); Hemoglobin 10.1 g/dL (12.0-16.0); Mean Corpuscular Hgb Conc 26.9 g/dL (32-36); Mean Corpuscular Volume 96.6 fL (80-100); Mean Platelet Volume 10.8 fL (7.4-10.4); Platelet Count 165 K/uL (130-400); RDW Coefficient of Variation 13.8 % (11.5-14.5); RDW Standard Deviation 48.7 fL (36.4-46.3); Red Blood Count 3.88 M/uL (4.2-5.4); White Blood Count 5.32 K/uL (4.8-10.8)
[2021-09-09 13:42] LABS: BUN Creatinine Ratio 32.5 (10-20); Calcium 9.5 mg/dl (8.5-10.1); Creatinine Clr Calc Pharmacy 94.7 ml/min; Est GFR (African American) 112.9 ml/min; Est GFR (Non-African American) 97.4 ml/min; Potassium 4.4 mmol/L (3.5-5.1)
--- NOTE | 2021-09-09 13:48 | Hospitalist Progress Note ---
Date of Service September 09, 2021 Assessment & Plan (1) Pneumonia: (2) Chronic respiratory failure with hypoxia and hypercapnia: (3) COPD (chronic obstructive pulmonary disease): Plan: 76 y/o female with a PMH of chronic hypoxemic and hypercapnic respiratory failur e on 2-3 L of O2 at baseline, COPD, HTN, HLD, CHF, known infrarenal abdominal aortic aneurysm, GERD, fibromyalgia, essential tremor, and hx of left carotid artery dissection who presents ED secondary to worsening of SOB. COPD Exacerbation Chronic respiratory failure with chronic hypoxia and hypercapnia Presented on admission with worsening shortness of breath. Possible Health care associated Pneumonia, MRSA Pneumonia In the ED, patient is saturating well on her chronic 2 L of oxygen however VBG showed pH 7.31 and PCO2 100, therefore patient was placed on BiPAP briefly. CTA chest negative for pulmonary embolism however shows Multiple consolidative opacities most prominent in the upper lungs which may represent aspiration and/or pneumonia Nasal MRSA positive Patient is tachycardic (has history of chronic sinus tachycardia), however afebrile and no leukocytosis. Does not appear septic Given history of recent hospitalization, Was treated with broad antibiotics. Completed Steroids and Antibiotics Sputum cx and blood cx are negative (4) Confusion: Plan: Possibly related to hypercarbia Likely multifactorial Patient's confusion waxes and wanes Had some conversation with patient's son on 09/07/21 Code status changed to DNI/DNR based on patient's living will Palliative on board helping with ongoing C Patient hypercarbia continue to worsen. She declines most treatment At this point, patient's confusion likely to continue to progress with her occasional refusal of medications and BIPAP Calls to son today were unanswered (5) Tachycardia: Plan: History of chronic sinus tachycardia Rate typically controlled on metoprolol succinate 50 mg daily Continue metoprolol 50mg daily (6) T12 compression fracture: Plan: Tylenol prn (7) Chronic combined systolic and diastolic CHF (congestive heart failure): Plan: Appears euvolemic, does not take routine diuretics Echo 02/2021 showed EF 40 to 45%, grade 1 diastolic dysfunction (8) Hypertension: Plan: Continue losartan and metoprolol (9) DVT prophylaxis: Plan: SQ Lovenox (10) Discharge planning issues: Plan: PCP: Paige Bartholomew FULL CODE Admission and Anticipated Discharge Date Admission Date: August 29, 2021 Subjective Patient seen and examined Patient is awake but confused. Laying calmly in bed Not oriented to person, place or time Review of Systems Review of Systems: Unobtainable due to cognitive status Physical Exam Constitutional: + well hydrated; no acute distress Eyes: PERRL, conjunctivae normal, anicteric sclerae ENMT: external ear and nose normal, oropharynx normal Respiratory: On nasal cannula, in no distress Diminished breath sounds Cardiovascular: RRR S1 S2 Gastrointestinal (Abdomen): normal bowel sounds, soft, nontender, no hepatosplenomegaly Neurologic: Confused. Not following commands Results & Data Results & Data ([facility]) Vital Signs (Past 12 Hours) Vital Signs Temp Pulse Resp BP Pulse Ox 09/09/21 07:35 36.6 C 99 H 16 146/78 H 93 Laboratory Results Abnormal lab results 09/09/21 09/09/21 Range/Units 13:08 13:08 RBC 3.88 L (4.2-5.4) M/uL Hgb 10.1 L (12.0-16.0) g/dL MCHC 26.9 L (32-36) g/dL RDW Std Deviation 48.7 H (36.4-46.3) fL MPV 10.8 H (7.4-10.4) fL Chloride 95 L (98-107) mmol/L Carbon Dioxide 50 H* (21-32) mmol/L Anion Gap 0 L (3-11) Creatinine 0.43 L (0.6-1.2) mg/dl BUN/Creatinine Ratio 32.5 H (10-20) Glucose 115 H (70-99) mg/dl (1) COPD (chronic obstructive pulmonary disease) COPD type: unspecified COPD Qualified Code(s): J44.9 - Chronic obstructive pulmonary disease, unspecified (2) Hypertension Hypertension type: unspecified Qualified Code(s): I10 - Essential (primary) hypertension (3) Pneumonia Laterality: right Lung location: upper lobe of lung Pneumonia type: due to unspecified organism Qualified Code(s): J18.9 - Pneumonia, unspecified organism
[2021-09-09] MEDS: ENOXAPARIN INJ 40 MG/0.4 ML SYR SQ SCH (14:24)
[2021-09-09] MEDS: rOPINIRole HCL 0.25 MG TABLET PO SCH (20:43)
[2021-09-09] MEDS: LIDOCAINE 5% 1 PATCH TD SCH (20:45)
[2021-09-09] MEDS ORDERED: METOPROLOL TARTRATE 25 MG TAB PO STA (22:43)
[2021-09-10 06:48] LABS: Hemoglobin 9.5 g/dL (12.0-16.0); Mean Corpuscular Hemoglobin 26.5 pg (25-34); Mean Corpuscular Hgb Conc 27.1 g/dL (32-36); Mean Corpuscular Volume 97.5 fL (80-100); Mean Platelet Volume 10.6 fL (7.4-10.4); Platelet Count 167 K/uL (130-400); RDW Coefficient of Variation 13.8 % (11.5-14.5); Red Blood Count 3.59 M/uL (4.2-5.4); White Blood Count 5.35 K/uL (4.8-10.8)
[2021-09-10 07:05] LABS: BUN Creatinine Ratio 39.1 (10-20); Calcium 9.7 mg/dl (8.5-10.1); Creatinine Clr Calc Pharmacy 96.9 ml/min; Est GFR (African American) 113.8 ml/min; Est GFR (Non-African American) 98.2 ml/min; Potassium 4.3 mmol/L (3.5-5.1)
[2021-09-10] MEDS: ASPIRIN 81 MG ECTAB PO SCH (09:29)
[2021-09-10] MEDS: ATORVASTATIN 40 MG TAB PO SCH (09:30)
[2021-09-10] MEDS: DOCUSATE SODIUM 100 MG CAP PO SCH (09:30)
[2021-09-10] MEDS: FLUTICASONE/VILANTEROL 100/25MCG 14 PUFFS/INHALER INH SCH (09:30)
[2021-09-10] MEDS: LACTULOSE SYRUP 20 GM/30 ML UDC PO SCH ×3 (09:31→21:18)
[2021-09-10] MEDS: MAGNESIUM OXIDE 400 MG TAB PO SCH (09:31)
[2021-09-10] MEDS: METOPROLOL SUCC 50MG EXT REL TAB PO SCH (09:31)
[2021-09-10] MEDS: PANTOprazole 40 MG TAB PO SCH (09:32)
[2021-09-10] MEDS: LOSARTAN POTASSIUM 25 MG TAB PO SCH (09:32)
[2021-09-10] MEDS: MUPIROCIN 2% OINT 22 GM TUBE EXT SCH ×2 (09:32→20:46)
[2021-09-10] MEDS: ROFLUMILAST 500 MCG TAB PO SCH (09:33)
[2021-09-10] MEDS: ENOXAPARIN INJ 40 MG/0.4 ML SYR SQ SCH (14:52)
--- NOTE | 2021-09-10 17:13 | Hospitalist Progress Note ---
Date of Service September 10, 2021 Assessment & Plan (1) Pneumonia: (2) Chronic respiratory failure with hypoxia and hypercapnia: (3) COPD (chronic obstructive pulmonary disease): Plan: 76 y/o female with a PMH of chronic hypoxemic and hypercapnic respiratory failur e on 2-3 L of O2 at baseline, COPD, HTN, HLD, CHF, known infrarenal abdominal aortic aneurysm, GERD, fibromyalgia, essential tremor, and hx of left carotid artery dissection who presents ED secondary to worsening of SOB. COPD Exacerbation Chronic respiratory failure with chronic hypoxia and hypercapnia Presented on admission with worsening shortness of breath. Possible Health care associated Pneumonia, MRSA Pneumonia In the ED, patient is saturating well on her chronic 2 L of oxygen however VBG showed pH 7.31 and PCO2 100, therefore patient was placed on BiPAP briefly. CTA chest negative for pulmonary embolism however shows Multiple consolidative opacities most prominent in the upper lungs which may represent aspiration and/or pneumonia Nasal MRSA positive Patient is tachycardic (has history of chronic sinus tachycardia), however afebrile and no leukocytosis. Does not appear septic Given history of recent hospitalization, Was treated with broad antibiotics. Completed Steroids and Antibiotics Sputum cx and blood cx are negative (4) Confusion: Plan: Possibly related to hypercarbia Likely multifactorial Patient's confusion waxes and wanes Had some conversation with patient's son on 09/07/21 Code status changed to DNI/DNR based on patient's living will Palliative on board helping with ongoing GOC Patient hypercarbia continue to worsen. She declines most treatment I called son today and updated him on patient's clinical state He stated he had conversation with Palliative specialist yesterday We discussed various options for care at this point considering patient's code status and living will We also discussed options regarding comfort, hospice or dc home with home health services as patient cannot go to SNF as she does not participate in PT at this time. He stated that he plans to have conversations with family members and come to a decision on Sunday Will keep patient till then as patient is high risk for readmissions and no safe discharge plan at this time (5) Tachycardia: Plan: History of chronic sinus tachycardia Continue metoprolol 50mg daily Lopressor prn (6) T12 compression fracture: Plan: Tylenol prn (7) Chronic combined systolic and diastolic CHF (congestive heart failure): Plan: Appears euvolemic, does not take routine diuretics Echo 02/2021 showed EF 40 to 45%, grade 1 diastolic dysfunction (8) Hypertension: Plan: Continue losartan and metoprolol (9) DVT prophylaxis: Plan: SQ Lovenox (10) Discharge planning issues: Plan: PCP: Paige Bartholomew FULL CODE Admission and Anticipated Discharge Date Admission Date: August 29, 2021 Subjective Patient seen and examined Patient is awake but confused. Oriented to person only today Perseverating and not answering questions appropriately Review of Systems Review of Systems: Unobtainable due to cognitive status Physical Exam Constitutional: + well hydrated; no acute distress Eyes: PERRL, conjunctivae normal, anicteric sclerae ENMT: external ear and nose normal, oropharynx normal Respiratory: Diminished breath sounds Cardiovascular: Rate/Rhythm: regular rate and + tachycardic S1 S2 Gastrointestinal (Abdomen): normal bowel sounds, soft, nontender, no hepatosplenomegaly Musculoskeletal: No pedal edema Neurologic: Confused, not following commands Results & Data Results & Data ([facility]) Vital Signs (Past 12 Hours) Vital Signs Temp Pulse Resp BP Pulse Ox 09/10/21 15:16 37.1 C 145 H 16 143/82 H 92 09/10/21 07:28 36.5 C 101 H 16 122/69 99 Laboratory Results Abnormal lab results 09/10/21 09/10/21 Range/Units 06:09 06:09 RBC 3.59 L (4.2-5.4) M/uL Hgb 9.5 L (12.0-16.0) g/dL Hct 35.0 L (37-47) % MCHC 27.1 L (32-36) g/dL RDW Std Deviation 49.0 H (36.4-46.3) fL MPV 10.6 H (7.4-10.4) fL Chloride 93 L (98-107) mmol/L Carbon Dioxide 49 H* (21-32) mmol/L Anion Gap 2.0 L (3-11) Creatinine 0.42 L (0.6-1.2) mg/dl BUN/Creatinine Ratio 39.1 H (10-20) Glucose 115 H (70-99) mg/dl (1) Pneumonia Laterality: right Lung location: upper lobe of lung Pneumonia type: due to unspecified organism Qualified Code(s): J18.9 - Pneumonia, unspecified organism (2) COPD (chronic obstructive pulmonary disease) COPD type: unspecified COPD Qualified Code(s): J44.9 - Chronic obstructive pulmonary disease, unspecified (3) Hypertension Hypertension type: unspecified Qualified Code(s): I10 - Essential (primary) hypertension
[2021-09-10] MEDS: rOPINIRole HCL 0.25 MG TABLET PO SCH ×2 (20:45→21:18)
[2021-09-10] MEDS: LIDOCAINE 5% 1 PATCH TD SCH (20:45)
[2021-09-11 00:17] LABS: Base Excess ABG 24.1 mEq/L (-9-1.8); HCO3 ABG 55 mmol/L (19-24); Oxygen Saturation ABG 97.4 % (90-95); PCO2 ABG 118 mmHg (35-46); PO2 ABG 120 mmHg (80-95); pH ABG 7.29 (7.35-7.45)
[2021-09-11 00:18] LABS: Allen Test POS (Pos)
[2021-09-11] MEDS: OLANZapine 10 MG/2.1 ML SDV IM PRN (01:18)
[2021-09-11] MEDS: METOPROLOL TARTRATE 1 MG/ML VIAL IV PRN ×2 (01:22→07:37)
[2021-09-11 03:10] LABS: Base Excess ABG 24.2 mEq/L (-9-1.8); HCO3 ABG 54 mmol/L (19-24); Oxygen Saturation ABG 91.9 % (90-95); PCO2 ABG 95 mmHg (35-46); PO2 ABG 61 mmHg (80-95); pH ABG 7.37 (7.35-7.45)
[2021-09-11 03:11] LABS: Allen Test Pos (Pos)
[2021-09-11 06:49] LABS: Basophils # (auto) 0.01 K/uL (0-0.2); Basophils % (auto) 0.1 %; Eosinophils # (auto) 0.18 K/uL (0-0.5); Eosinophils % (auto) 2.3 %; Hematocrit (blood only) 36.4 % (37-47); Hemoglobin 9.9 g/dL (12.0-16.0); Immature Granulocytes # (auto) 0.03 K/uL (0.00-0.02); Immature Granulocytes % (auto) 0.4 %; Lymphocytes # (auto) 0.66 K/uL (1.2-3.4); Lymphocytes % (auto) 8.3 %; Mean Corpuscular Hemoglobin 26.1 pg (25-34); Mean Corpuscular Hgb Conc 27.2 g/dL (32-36); Mean Platelet Volume 10.9 fL (7.4-10.4); Monocytes # (auto) 0.83 K/uL (0.11-0.59); Monocytes % (auto) 10.4 %; Neutrophils # (auto) 6.24 K/uL (1.4-6.5); Neutrophils % (auto) 78.5 %; Platelet Count 196 K/uL (130-400); RDW Coefficient of Variation 13.7 % (11.5-14.5); RDW Standard Deviation 48.1 fL (36.4-46.3); Red Blood Count 3.79 M/uL (4.2-5.4); White Blood Count 7.95 K/uL (4.8-10.8)
[2021-09-11 07:29] LABS: BUN Creatinine Ratio 45.6 (10-20); Blood Urea Nitrogen 24 mg/dl (7-18); Calcium 10.2 mg/dl (8.5-10.1); Chloride 92 mmol/L (98-107); Creatinine Clr Calc Pharmacy 71.6 ml/min; Est GFR (African American) 104.8 ml/min; Est GFR (Non-African American) 90.4 ml/min; Glucose 117 mg/dl (70-99); Potassium 3.8 mmol/L (3.5-5.1); Sodium 145 mmol/L (136-145); Troponin I < 0.015 ng/ml (0-0.045)
[2021-09-11 07:40] LABS: Carbon Dioxide 49 mmol/L (21-32)
[2021-09-11] MEDS: LOSARTAN POTASSIUM 25 MG TAB PO SCH (10:24)
[2021-09-11] MEDS: LACTULOSE SYRUP 20 GM/30 ML UDC PO SCH (10:24)
[2021-09-11] MEDS: ASPIRIN 81 MG ECTAB PO SCH (10:25)
[2021-09-11] MEDS: ATORVASTATIN 40 MG TAB PO SCH (10:25)
[2021-09-11] MEDS: ROFLUMILAST 500 MCG TAB PO SCH (10:25)
[2021-09-11] MEDS: PANTOprazole 40 MG TAB PO SCH (10:26)
[2021-09-11] MEDS: METOPROLOL SUCC 50MG EXT REL TAB PO SCH (10:27)
[2021-09-11] MEDS: MAGNESIUM OXIDE 400 MG TAB PO SCH (10:27)
[2021-09-11] MEDS: MUPIROCIN 2% OINT 22 GM TUBE EXT SCH (10:28)
[2021-09-11] MEDS: FLUTICASONE/VILANTEROL 100/25MCG 14 PUFFS/INHALER INH SCH (10:32)
[2021-09-11] MEDS: DOCUSATE SODIUM 100 MG CAP PO SCH (10:45)
[2021-09-11] MEDS: ENOXAPARIN INJ 40 MG/0.4 ML SYR SQ SCH (15:30)
--- NOTE | 2021-09-11 15:42 | Hospitalist Progress Note ---
Date of Service September 11, 2021 Assessment & Plan (1) Pneumonia: (2) Chronic respiratory failure with hypoxia and hypercapnia: (3) Confusion: (4) COPD (chronic obstructive pulmonary disease): Plan: 76 y/o female with a PMH of chronic hypoxemic and hypercapnic respiratory failure on 2-3 L of O2 at baseline, COPD, HTN, HLD, CHF, known infrarenal abdominal aortic aneurysm, GERD, fibromyalgia, essential tremor, and hx of left carotid artery dissection who presents ED secondary to worsening of SOB. COPD Exacerbation Chronic respiratory failure with chronic hypoxia and hypercapnia Presented on admission with worsening shortness of breath. Possible Health care associated Pneumonia, MRSA Pneumonia In the ED, patient is saturating well on her chronic 2 L of oxygen however VBG showed pH 7.31 and PCO2 100, therefore patient was placed on BiPAP briefly. CTA chest negative for pulmonary embolism however shows Multiple consolidative opacities most prominent in the upper lungs which may represent aspiration and/or pneumonia Nasal MRSA positive Patient is tachycardic (has history of chronic sinus tachycardia), however afebrile and no leukocytosis. Does not appear septic Given history of recent hospitalization, Was treated with broad antibiotics. Completed Steroids and Antibiotics Sputum cx and blood cx are negative Patient has been having worsening confusion due to worsening hypercarbia. Could also be having some aspiration with AMS However, patient had declined BiPAP. I had a conversation with patient's son and [id number] today who patient's POA based on her living will and POA papers. We went over patient hospital stay, management. They also acknowledged that patient does not want the BiPAP and extraordinary measures as stated in her living will They stated that at this point, they would want patient to be on comfort measures only. They stated that patient lives alone at home and will not be able to be discharged back to her home not to their own home as they work full- time and and not home most of the day. They are interested in comfort care/hospice care at a facility. (5) Tachycardia: (6) T12 compression fracture: Plan: Tylenol prn (7) Chronic combined systolic and diastolic CHF (congestive heart failure): Plan: Appears euvolemic, does not take routine diuretics Echo 02/2021 showed EF 40 to 45%, grade 1 diastolic dysfunction (8) Hypertension: (9) DVT prophylaxis: (10) Discharge planning issues: Plan: ELECTRO TECH only at this time Will follow up with CM tomorrow about possible dc to NH for comfort care PCP: Paige Bartholomew FULL CODE Admission and Anticipated Discharge Date Admission Date: August 29, 2021 Subjective Patient seen and examined Patient is drowsy. Arousable but falls back to sleep Not oriented Overnight, patient was drowsy. Brim Shaper got ABG which showed PCO2 of 118 pH of 7.29. and patient was put on BiPAP and ABG improved to PCO2 of 95 with pH of 7.37 Patient became awake and declined further use of the BiPAP. Review of Systems Review of Systems: Unobtainable due to reduced consciousness Physical Exam Constitutional: + well hydrated; no acute distress Drowsy Eyes: PERRL, conjunctivae normal, anicteric sclerae ENMT: external ear and nose normal, oropharynx normal Respiratory: Diminished breath sounds Cardiovascular: Rate/Rhythm: regular rate and + tachycardic Gastrointestinal (Abdomen): normal bowel sounds, soft, nontender, no hepatosplenomegaly Musculoskeletal: No pedal edema Neurologic: Drowsy but arousable. Not following commands Results & Data Results & Data ([facility]) Vital Signs (Past 12 Hours) Vital Signs Temp Pulse Pulse Resp BP BP Pulse Ox 09/11/21 14:18 111 H 09/11/21 10:56 100 09/11/21 09:00 107 H 97 09/11/21 08:06 36.7 C 123 H 20 156/76 H 98 09/11/21 07:37 123 H 167/82 H 09/11/21 07:36 123 H 100 09/11/21 06:18 124 H 09/11/21 05:49 100 H 27 H 91 09/11/21 05:20 123 H 24 94 Laboratory Results Abnormal lab results 09/11/21 09/11/21 09/11/21 Range/Units 00:02 00:02 02:55 RBC (4.2-5.4) M/uL Hgb (12.0-16.0) g/dL Hct (37-47) % MCHC (32-36) g/dL RDW Std Deviation (36.4-46.3) fL MPV (7.4-10.4) fL Lymph # (Auto) (1.2-3.4) K/uL [place] # (Auto) (0.11-0.59) K/uL Immature Gran # (Auto) (0.00-0.02) K/uL ABG pH 7.29 L (7.35-7.45) ABG pCO2 118 H 95 H (35-46) mmHg ABG pO2 120 H 61 L (80-95) mmHg ABG HCO3 55 H 54 H (19-24) mmol/L ABG O2 Saturation 97.4 H (90-95) % ABG Base Excess 24.1 H 24.2 H (-9-1.8) mEq/L Chloride (98-107) mmol/L Carbon Dioxide (21-32) mmol/L BUN (7-18) mg/dl Creatinine (0.6-1.2) mg/dl BUN/Creatinine Ratio (10-20) Glucose (70-99) mg/dl Calcium (8.5-10.1) mg/dl Ammonia 36.8 H (11-32) umol/L 09/11/21 09/11/21 Range/Units 05:49 06:00 RBC 3.79 L (4.2-5.4) M/uL Hgb 9.9 L (12.0-16.0) g/dL Hct 36.4 L (37-47) % MCHC 27.2 L (32-36) g/dL RDW Std Deviation 48.1 H (36.4-46.3) fL MPV 10.9 H (7.4-10.4) fL Lymph # (Auto) 0.66 L (1.2-3.4) K/uL [place] # (Auto) 0.83 H (0.11-0.59) K/uL Immature Gran # (Auto) 0.03 H (0.00-0.02) K/uL ABG pH (7.35-7.45) ABG pCO2 (35-46) mmHg ABG pO2 (80-95) mmHg ABG HCO3 (19-24) mmol/L ABG O2 Saturation (90-95) % ABG Base Excess (-9-1.8) mEq/L Chloride 92 L (98-107) mmol/L Carbon Dioxide 49 H* (21-32) mmol/L BUN 24 H (7-18) mg/dl Creatinine 0.54 L (0.6-1.2) mg/dl BUN/Creatinine Ratio 45.6 H (10-20) Glucose 117 H (70-99) mg/dl Calcium 10.2 H (8.5-10.1) mg/dl Ammonia (11-32) umol/L (1) COPD (chronic obstructive pulmonary disease) COPD type: unspecified COPD Qualified Code(s): J44.9 - Chronic obstructive pulmonary disease, unspecified (2) Hypertension Hypertension type: unspecified Qualified Code(s): I10 - Essential (primary) hypertension (3) Pneumonia Laterality: right Lung location: upper lobe of lung Pneumonia type: due to unspecified organism Qualified Code(s): J18.9 - Pneumonia, unspecified organism
[2021-09-11] MEDS ORDERED: ONDANSETRON 4 MG OD TAB SL PRN (16:40)
[2021-09-11] MEDS ORDERED: MoRPHine SULFATE 5 MG/0.25 ML UDP PO PRN (16:40)
[2021-09-11] MEDS ORDERED: LORazepam 0.5 MG TAB PO PRN (16:40)
[2021-09-11] MEDS ORDERED: LORazepam 0.5 MG/1 ML VIAL IV PRN (16:40)
[2021-09-11] MEDS ORDERED: ONDANSETRON INJ 2 MG/ML 2 ML VIAL IV PRN (16:40)
[2021-09-11] MEDS: LIDOCAINE 5% 1 PATCH TD SCH (21:22)
[2021-09-12] MEDS: METOPROLOL SUCC 50MG EXT REL TAB PO SCH (09:07)
--- NOTE | 2021-09-12 11:18 | Palliative Care Progress Note ---
Date of Service September 12, 2021 Assessment & Plan (1) Palliative care encounter: Plan: Now on comfort measures. She appears comfortable. Continue prn medications. Discussed with RN. (2) Chronic combined systolic and diastolic CHF (congestive heart failure): (3) COPD (chronic obstructive pulmonary disease): (4) Chronic respiratory failure with hypoxia and hypercapnia: Admission and Anticipated Discharge Date Admission Date: August 29, 2021 Subjective Does not respond to voice. Eyes flutter briefly with touch. Per RN, no grimace or moaning with routine care. She did have one prn dose of morphine overnight. Review of Systems Review of Systems: Unobtainable due to reduced consciousness Howell Symptom Assessment Scale Pain by observation 0/3 Dyspnea by observation 0/3 Palliative Performance Score 20% Physical Exam Constitutional: no acute distress ENMT: Mouth: + dry oral mucous membranes Respiratory: normal respiratory effort; no labored breathing and does not use accessory muscles no audible rhonchi Cardiovascular: no mottling Neurologic: + obtunded PG Care Time/CCT Total # of Minutes Spent Total Time Spent with Patient: Total time spent is greater than 50% in coordination of care (as documented) at patient's floor/unit and/or counseling patient: Coding Level of Care Code 84257 Subseq Hosp Care Lvl 2 Diagnoses Palliative care encounter Z51.5 Chronic combined systolic and diastolic CHF (congestive heart failure) I50.42 COPD (chronic obstructive pulmonary disease) J44.9 COPD type: unspecified COPD Chronic respiratory failure with hypoxia and hypercapnia J96.11; J96.12 (1) COPD (chronic obstructive pulmonary disease) COPD type: unspecified COPD Qualified Code(s): J44.9 - Chronic obstructive pulmonary disease, unspecified
--- NOTE | 2021-09-12 13:04 | Hospitalist Progress Note ---
Date of Service September 12, 2021 Assessment & Plan (1) Pneumonia: (2) Chronic respiratory failure with hypoxia and hypercapnia: (3) Confusion: (4) COPD (chronic obstructive pulmonary disease): (5) Tachycardia: (6) T12 compression fracture: (7) Chronic combined systolic and diastolic CHF (congestive heart failure): (8) Hypertension: (9) DVT prophylaxis: (10) Discharge planning issues: Plan: 76 y/o female with a PMH of chronic hypoxemic and hypercapnic respiratory failure on 2-3 L of O2 at baseline, COPD, HTN, HLD, CHF, known infrarenal abdominal aortic aneurysm, GERD, fibromyalgia, essential tremor, and hx of left carotid artery dissection who presents ED secondary to worsening of SOB. COPD Exacerbation Chronic respiratory failure with chronic hypoxia and hypercapnia Presented on admission with worsening shortness of breath. Possible Health care associated Pneumonia, MRSA Pneumonia In the ED, patient is saturating well on her chronic 2 L of oxygen however VBG showed pH 7.31 and PCO2 100, therefore patient was placed on BiPAP briefly. CTA chest negative for pulmonary embolism however shows Multiple consolidative opacities most prominent in the upper lungs which may represent aspiration and/or pneumonia Nasal MRSA positive Patient is tachycardic (has history of chronic sinus tachycardia), however afebrile and no leukocytosis. Does not appear septic Given history of recent hospitalization, Was treated with broad antibiotics. Completed Steroids and Antibiotics Sputum cx and blood cx are negative Patient has been having worsening confusion due to worsening hypercarbia. Metabolic encephalopathy Could also be having some aspiration with AMS However, patient had declined BiPAP. On 09/11/21, I had a family meeting with son and daughter in law. Patient currently on comfort measures only Currently comfortable. Will need nursing facility hospice if patient remains inpatient over the next few days Admission and Anticipated Discharge Date Admission Date: August 29, 2021 Subjective Patient seen and examined Opens eye to touch. Does not follow commands Review of Systems Review of Systems: Unobtainable due to reduced consciousness Physical Exam Constitutional: + well hydrated; no acute distress Respiratory: Not in resp distress Diminished breath sounds Cardiovascular: Rate/Rhythm: regular rate and + tachycardic S1 S2 Gastrointestinal (Abdomen): normal bowel sounds, soft, nontender, no hepatosplenomegaly Neurologic: Not alert or oriented Opens eye to touch. Groans to noxious stimuli Genitourinary: Cole in situ (1) COPD (chronic obstructive pulmonary disease) COPD type: unspecified COPD Qualified Code(s): J44.9 - Chronic obstructive pulmonary disease, unspecified (2) Hypertension Hypertension type: unspecified Qualified Code(s): I10 - Essential (primary) hypertension (3) Pneumonia Laterality: right Lung location: upper lobe of lung Pneumonia type: due to unspecified organism Qualified Code(s): J18.9 - Pneumonia, unspecified organism
[2021-09-12] MEDS: LIDOCAINE 5% 1 PATCH TD SCH (22:38)
--- NOTE | 2021-09-13 07:55 | Death Pronouncement Note ---
Date of Service September 13, 2021 Pronouncement Note Admission Date Admission Date: August 29, 2021 Date and Time of Date of : 09/13/21 Time of : 05:45 Contributing Factors (1) Pneumonia: (2) Chronic respiratory failure with hypoxia and hypercapnia: (3) Confusion: (4) COPD (chronic obstructive pulmonary disease): (5) Tachycardia: (6) T12 compression fracture: (7) Chronic combined systolic and diastolic CHF (congestive heart failure): (8) Hypertension: (9) DVT prophylaxis: (10) Discharge planning issues: Additional Data Confirmation of : no pulse, no respirations, no heart sounds and pupils fixed and dilated Family: contacted Attending physician: Stacey Nye MD
--- NOTE | 2021-09-13 08:56 | Discharge Summary ---
Date of Service September 13, 2021 Admission HPI Per Admitting Provider 76-year-old female with PMH COPD, chronic hypoxic respiratory failure on 3 L of oxygen, HTN, chronic diastolic CHF, infrarenal AAA, carotid artery dissection, HTN, sinus tachycardia, GERD, fibromyalgia, chronic pain, and other problems listed below who presents the ED for evaluation of shortness of breath. Patient recently admitted to [facility] 08/07 through 08/17 for management of acute back pain due to acute to subacute T12 compression fracture. Nonoperative management recommended. Patient discharged on as needed diazepam and hydrocodone/acetaminophen. Patient reports she has overall been doing well. Reports that she has been working with [facility] for possible rehab placement. I discussed with [facility] and they report that phone calls were made to [facility] and [facility]. Patient reports that she was concerned that her oxygen was not working last evening so she called her neighbor who is an EMT to come check on it. Reports that no issues were found. Patient states that whenever she woke up this morning, she felt very short of breath. EMS was called and patient was brought to the ED for further evaluation. Per report, patient was hypoxic on her usual 3 L of oxygen. Patient denies cough or sputum production. No fevers or chills. Denies chest pain. No lightheadedness, dizziness, diaphoresis, syncopal events. Denies abdominal pain, nausea, vomiting, diarrhea. No urinary symptoms. In the ED, patient is saturating well on her usual 3 L of oxygen however VBG showed pH 7.31 and PCO2 100. Patient was placed on BiPAP. CTA chest negative for PE however shows Multiple consolidative opacities most prominent in the upper lungs which may represent aspiration and/or pneumonia. Patient was given IV cefepime, p.o. doxycycline, nebulizer treatment, IV Solu-Medrol 40 mg, IVF. Admission Exam Per Admitting Provider Constitutional: WD/WN, vitals as above + ill appearing (Chronically); no acute distress Eyes: PERRL, conjunctivae normal, anicteric sclerae ENMT: external ear and nose normal, oropharynx normal Respiratory: no respiratory distress and no labored breathing Auscultation: + diminished lung sounds On BiPAP Cardiovascular: Rate/Rhythm: regular rhythm and + tachycardic Vessels: normal peripheral pulses Extremities: no edema Gastrointestinal (Abdomen): normal bowel sounds, soft, nontender, no hepatosplenomegaly Musculoskeletal: no cyanosis or clubbing, extremities motor strength 5/5 Skin: no rashes, warm and dry Neurologic: PERRL, EOMI, accommodation nl, no face palsy, no dysarthria Psychiatric: A+Ox3, euthymic affect Principal Diagnosis COPD Exacerbation Acute on chronic respiratory failure with chronic hypoxia and hypercapnia Pneumonia Metabolic encephalopathy Discharge Exam Patient Discharge Data Allergies Allergy/AdvReac Type Severity Reaction Status Date / Time duloxetine [From Cymbalta] Allergy Mild Rash Verified 08/29/21 10:26 naproxen AdvReac Mild GI SYMPTOMS Verified 08/29/21 10:26 Consultations 08/29/21 10:53 ED Decision to Admit Stat 09/07/21 15:54 Consult Pulmonology Routine 09/07/21 19:09 Consult Palliative Care Routine Ordered Studies 08/29/21 10:53 CT angio chest PE protocol Stat 09/07/21 14:32 CT head/brain wo con Stat Hospital Course (1) Pneumonia: (2) Chronic respiratory failure with hypoxia and hypercapnia: (3) Confusion: (4) COPD (chronic obstructive pulmonary disease): (5) Tachycardia: (6) T12 compression fracture: (7) Chronic combined systolic and diastolic CHF (congestive heart failure): (8) Hypertension: (9) DVT prophylaxis: (10) Discharge planning issues: 76 y/o female with a PMH of chronic hypoxemic and hypercapnic respiratory failure on 2-3 L of O2 at baseline, COPD, HTN, HLD, CHF, known infrarenal abdominal aortic aneurysm, GERD, fibromyalgia, essential tremor, and hx of left carotid artery dissection who presents ED secondary to worsening of SOB. COPD Exacerbation Chronic respiratory failure with chronic hypoxia and hypercapnia Presented on admission with worsening shortness of breath. Possible Health care associated Pneumonia, MRSA Pneumonia In the ED, patient is saturating well on her chronic 2 L of oxygen however VBG showed pH 7.31 and PCO2 100, therefore patient was placed on BiPAP briefly. CTA chest negative for pulmonary embolism however shows Multiple consolidative opacities most prominent in the upper lungs which may represent aspiration and/or pneumonia Nasal MRSA positive Patient was tachycardic (has history of chronic sinus tachycardia), however afebrile and no leukocytosis. Given history of recent hospitalization, Was treated with broad antibiotics. Completed Steroids and Antibiotics Sputum cx and blood cx are negative Patient had been having worsening confusion due to worsening hypercarbia. Could also be having some aspiration with AMS Family brought living will which dictated patient wants to be DNR Patient had increased confusion and drowsiness whenever her pCO2 increases. Patient has chronic hypercarbia but with recent pneumonia, patient not able to fully compensate as she had been doing in past On 09/11/21, Family decided stop active treatment in line with patient's wishes and start comfort measures only Patient on 09/13/21 at 5:45 am Total Time Total Time Spent Total Time Spent (In Minutes): 15 Total Time Includes: Other Discharge Plan Discharge Items Patient Disposition: Other Date/Time: 09/13/21 05:45
[2021-09-13] MEDS ORDERED: DESTROY THIS MEDICATION ONE (09:45)
== END 2021-09-13 11:44 | disposition expired | DRG 177 ==
LOC: ED 08:32 → 2S 11:55 → SUATTDRO 11:55 → 2S 14:10 → 3E 09-02 14:11 → 2W 09-10 21:24